=== PATIENT | female | born 1945 | race Caucasian/White ===

== ENCOUNTER → 2016-10-07 | Outpatient (CLI) | payer MEDICARE ==
[2016-10-07 10:32] LABS: Basophils # (A) 0.1 k/uL (0-0.2); Basophils % (A) 1 %; CH 31.8; CHCM 31.5; Eosinophils # (A) 0.3 k/uL (0-0.7); Eosinophils % (A) 5 %; HDW 2.64; HGB 12.3 gm/dL (11.4-16.0); Luc # (Auto) 0.14; Luc % (Auto) 2; Lymphocytes # (A) 1.9 k/uL (1.0-4.8); Lymphocytes % (A) 32 %; MCH 31.3 pg (25.0-35.0); MCHC 30.8 g/dL (31.0-37.0); MCV 101.6 fL (80.0-100.0); Macrocytosis Slight; Mean Platelet Volume 7.4; Monocytes # (A) 0.5 k/uL (0-1.0); Monocytes % (A) 8 %; Neutrophils # (A) 3.1 k/uL (1.3-7.7); Neutrophils % (A) 52 %; RBC 3.93 m/uL (3.80-5.40); RDW 13.4 % (11.5-15.5); WBC (Perox) 5.97
[2016-10-07 10:50] LABS: Appearance,Urine Cloudy (Clear); Bacteria,Urine Many /hpf; Bilirubin,Urine Negative (Negative); Glucose,Urine (UA) Negative (Negative); Ketones,Urine Negative (Negative); Leukocyte Esterase,Urine Large (Negative); Mucus,Urine Occasional /hpf; Nitrite,Urine Positive (Negative); PH, Urine 5.5 (5.0-8.0); Particle Count 16198; Protein,Urine Trace (Negative); RBC,Urine 1 /hpf (0-5); Specific Gravity,Urine 1.011 (1.001-1.035); Squamous Epithelial Cell,Urine 1 /hpf (0-4); UA Billing (MACRO vs. MICRO) MICRO; Urobilinogen,Urine <2.0 mg/dL (<2.0); WBC,Urine 93 /hpf (0-5)
[2016-10-07 11:46] LABS: Calcium 7.9 mg/dL (8.4-10.2); Magnesium 2.1 mg/dL (1.6-2.3); Total Bilirubin 0.4 mg/dL (0.2-1.3); Total Protein 6.5 g/dL (6.3-8.2); Uric Acid 5.8 mg/dL (3.7-7.4)
[2016-10-07 11:56] LABS: % Iron Saturation 27.5 % (20-50)
== END | disposition home or self-care (01) ==
LOC: LABWHC1 09:49
PROVIDERS: ATTEND Internal Medicine Endocrinology, Diabetes & Metabolism
DX: N39.0 Urinary tract infection, site not specified (principal); M10.9 Gout, unspecified; N18.3 Chronic kidney disease, stage 3 (moderate); N25.81 Secondary hyperparathyroidism of renal origin; D64.9 Anemia, unspecified; E03.9 Hypothyroidism, unspecified; E55.9 Vitamin D deficiency, unspecified; E83.51 Hypocalcemia; M81.0 Age-related osteoporosis without current pathological fracture
CPT/HCPCS: 36415; 80053; 81001; 82306; 82728; 83540; 83550; 83735; 83970; 84100; 84439; 84443; 84550; 85025

== ENCOUNTER → 2016-11-15 | Outpatient (CLI) | payer MEDICARE | END | disposition home or self-care (01) | LOC: RADECHMAIN 11:52 | PROVIDERS: ATTEND Internal Medicine | DX: R00.1 Bradycardia, unspecified (principal); R00.0 Tachycardia, unspecified | CPT/HCPCS: 93225; 93226 ==

== ENCOUNTER → 2016-12-09 | Outpatient (CLI) | payer MEDICARE ==
--- NOTE | 2016-12-09 10:24 | CT ---
EXAMINATION TYPE: CT brain wo con DATE OF EXAM: 12/09/2016 COMPARISON: Previous study dated 04/05/2010. HISTORY: Seizure disorder CT DLP: 892.1 mGycm Automated exposure control for dose reduction was used. FINDINGS: There are generalized changes of sulcal prominence and ventriculomegaly, compatible with mild atrophi c change. There is diffuse periventricular white matter lucency, compatible with chronic white matter ischemic change. There is no focal lesion, mass effect or midline shift identified. I do not see olivia dence of intracranial blood. The orbits appear normal. Visualized portions of the paranasal sinuses and mastoids are clear. No depressed skull fracture is s een. IMPRESSION: 1. NO ACUTE INTRACRANIAL ABNORMALITY. 2. MILD ATROPHIC CHANGE. 3. CHRONIC WHITE MATTER ISCHEMIC CHANGE.
== END | disposition home or self-care (01) ==
LOC: RADCTMAIN 07:57
PROVIDERS: ATTEND Internal Medicine
DX: G31.9 Degenerative disease of nervous system, unspecified (principal); I67.82 Cerebral ischemia; R90.82 White matter disease, unspecified
CPT/HCPCS: 70450; 95819

== ENCOUNTER → 2016-12-13 | Outpatient (CLI) | payer MEDICARE ==
[2016-12-13 12:16] LABS: Calcium 8.5 mg/dL (8.4-10.2); Potassium 3.6 mmol/L (3.5-5.1); Total Bilirubin 0.5 mg/dL (0.2-1.3); Total Protein 5.9 g/dL (6.3-8.2)
== END | disposition home or self-care (01) ==
LOC: LABWHC1 11:02
PROVIDERS: ATTEND Internal Medicine Endocrinology, Diabetes & Metabolism
DX: E55.9 Vitamin D deficiency, unspecified (principal); E89.0 Postprocedural hypothyroidism; M81.0 Age-related osteoporosis without current pathological fracture; N18.3 Chronic kidney disease, stage 3 (moderate)
CPT/HCPCS: 36415; 80053; 82306; 84439; 84443

== ENCOUNTER → 2017-01-23 | Outpatient (CLI) | payer MEDICARE ==
[2017-01-23 10:55] LABS: Basophils # (A) 0.1 k/uL (0-0.2); Basophils % (A) 1 %; CH 32.3; CHCM 30.8; Eosinophils # (A) 0.2 k/uL (0-0.7); Eosinophils % (A) 3 %; HCT 38.4 % (34.0-46.0); HDW 3.06; HGB 11.6 gm/dL (11.4-16.0); Hypochromasia Moderate; Luc # (Auto) 0.12; Luc % (Auto) 2; Lymphocytes # (A) 2.2 k/uL (1.0-4.8); Lymphocytes % (A) 32 %; MCH 31.9 pg (25.0-35.0); MCHC 30.2 g/dL (31.0-37.0); MCV 105.8 fL (80.0-100.0); Macrocytosis Moderate; Mean Platelet Volume 7.6; Monocytes # (A) 0.4 k/uL (0-1.0); Monocytes % (A) 6 %; Neutrophils # (A) 3.9 k/uL (1.3-7.7); Neutrophils % (A) 56 %; RBC 3.63 m/uL (3.80-5.40); RDW 15.5 % (11.5-15.5); WBC 6.8 k/uL (3.8-10.6); WBC (Perox) 7.24
[2017-01-23 11:31] LABS: Calcium 7.4 mg/dL (8.4-10.2); Magnesium 1.6 mg/dL (1.6-2.3); Phosphorous 4.6 mg/dL (2.5-4.5); Potassium 4.2 mmol/L (3.5-5.1); Uric Acid 5.1 mg/dL (3.7-7.4)
[2017-01-23 11:40] LABS: % Iron Saturation 27.1 % (20-50)
[2017-01-23 11:42] LABS: Appearance,Urine Clear (Clear); Bacteria,Urine Occasional /hpf; Bilirubin,Urine Negative (Negative); Glucose,Urine (UA) Negative (Negative); Ketones,Urine Negative (Negative); Leukocyte Esterase,Urine Large (Negative); Mucus,Urine Rare /hpf; Nitrite,Urine Negative (Negative); Particle Count 7426; Protein,Urine Negative (Negative); RBC,Urine 1 /hpf (0-5); Specific Gravity,Urine 1.008 (1.001-1.035); UA Billing (MACRO vs. MICRO) MICRO; Urobilinogen,Urine <2.0 mg/dL (<2.0); WBC,Urine 86 /hpf (0-5)
== END | disposition home or self-care (01) ==
LOC: LABWHC1 10:23
PROVIDERS: ATTEND Internal Medicine Nephrology
DX: M10.9 Gout, unspecified (principal); N18.3 Chronic kidney disease, stage 3 (moderate); N39.0 Urinary tract infection, site not specified; N25.81 Secondary hyperparathyroidism of renal origin; D63.1 Anemia in chronic kidney disease
CPT/HCPCS: 36415; 80048; 81001; 82306; 82728; 83540; 83550; 83735; 83970; 84100; 84550; 85025

== ENCOUNTER → 2017-03-09 | Outpatient (CLI) | payer MEDICARE ==
[2017-03-09 11:02] LABS: Calcium 8.9 mg/dL (8.4-10.2); Potassium 4.1 mmol/L (3.5-5.1); Total Bilirubin 0.4 mg/dL (0.2-1.3); Total Protein 6.1 g/dL (6.3-8.2)
== END | disposition home or self-care (01) ==
LOC: LABWHC1 10:09
PROVIDERS: ATTEND Internal Medicine Nephrology
DX: N25.81 Secondary hyperparathyroidism of renal origin (principal); E89.0 Postprocedural hypothyroidism
CPT/HCPCS: 36415; 80053; 82306; 83970; 84439; 84443

== ENCOUNTER → 2017-03-20 | Outpatient (CLI) | payer MEDICARE ==
--- NOTE | 2017-03-21 08:43 | MM ---
Reason for exam: screening (asymptomatic). Last mammogram was performed 4 years and 2 months ago. History: Patient is postmenopausal. Family history of premenopausal breast cancer in mother at age 60. Took estrogen for 1 year beginning at age 48. Physical Findings: A clinical breast exam by your physician is recommended on an annual basis and results should be correlated with mammographic findings. MG 3D Screening Mammo W/Cad Bilateral CC and MLO view(s) were taken. Prior study comparison: January 16, 2013, bilateral digital screening mammo w/CAD. November 21, 2011, bilateral digital screening mammo w/CAD. There are scattered fibroglandular densities. Finding: There are typically benign calcifications in both breasts. No significant changes in finding since January 16, 2013 and November 21, 2011. ASSESSMENT: Benign, BI-RAD 2 RECOMMENDATION: Routine screening mammogram of both breasts in 1 year.
== END ==
LOC: RADMAMWWP 11:08
PROVIDERS: ATTEND Internal Medicine
DX: Z12.31 Encounter for screening mammogram for malignant neoplasm of breast (principal)
CPT/HCPCS: 77063; G0202

== ENCOUNTER → 2017-05-23 | Outpatient (CLI) | payer MEDICARE ==
[2017-05-23 12:06] LABS: Calcium 9.2 mg/dL (8.4-10.2)
== END | disposition home or self-care (01) ==
LOC: LABWHC1 11:25
PROVIDERS: ATTEND Nurse Practitioner Family
DX: N18.3 Chronic kidney disease, stage 3 (moderate) (principal)
CPT/HCPCS: 36415; 80048

== ENCOUNTER → 2017-06-19 | Outpatient (CLI) | payer MEDICARE ==
[2017-06-19 11:42] LABS: Albumin 3.7 g/dL (3.5-5.0); Calcium 9.4 mg/dL (8.4-10.2); Potassium 5.6 mmol/L (3.5-5.1); Total Bilirubin 0.4 mg/dL (0.2-1.3); Total Protein 6.2 g/dL (6.3-8.2)
== END | disposition home or self-care (01) ==
LOC: LABWHC1 10:21
PROVIDERS: ATTEND Internal Medicine Endocrinology, Diabetes & Metabolism
DX: E55.9 Vitamin D deficiency, unspecified (principal); E89.0 Postprocedural hypothyroidism
CPT/HCPCS: 36415; 80053; 82306; 84439; 84443

== ENCOUNTER → 2017-08-25 | Outpatient (CLI) | payer MEDICARE ==
--- NOTE | 2017-08-25 14:48 | US ---
EXAMINATION TYPE: US kidneys/renal and bladder DATE OF EXAM: 08/25/2017 COMPARISON: US dated 05/12/2014 CLINICAL HISTORY: N18.3 Chronic kidney disease stage 3 moderate. EXAM MEASUREMENTS: Right Kidney: 9.2 x 3.6 x 4.3 cm Left Kidney: 9.2 x 4.4 x 4.5 cm Right Kidney: extra renal pelvis Left Kidney: cyst upper pole measures 2.1 x 1.9 x 1.8 cm, two stones with shadowing noted one upper p ole measures 1.3 x 0.6 x 1.3 cm and one lower pole measures 1.3 x 0.6 x 1.4 cm Bladder: wnl Bilateral Jets seen: Yes There is increased cortical echogenicity, cortical thinning bilaterally suggestive of medical renal d isease.. IMPRESSION: Medical renal disease. Simple cyst upper pole left kidney, renal cystic disease. Left-sided nephrolit hiasis.
== END | disposition home or self-care (01) ==
LOC: RADUSWWP 11:43
PROVIDERS: ATTEND Internal Medicine Nephrology
DX: N28.1 Cyst of kidney, acquired (principal); N20.0 Calculus of kidney; N28.89 Other specified disorders of kidney and ureter; N18.3 Chronic kidney disease, stage 3 (moderate)
CPT/HCPCS: 76770

== ENCOUNTER → 2017-09-19 | Outpatient (CLI) | payer MEDICARE ==
[2017-09-19 16:21] LABS: Basophils # (A) 0.1 k/uL (0-0.2); Basophils % (A) 1 %; Eosinophils # (A) 0.1 k/uL (0-0.7); Eosinophils % (A) 1 %; HCT 40.7 % (34.0-46.0); HGB 12.6 gm/dL (11.4-16.0); Hypochromasia Slight; Lymphocytes # (A) 2.1 k/uL (1.0-4.8); Lymphocytes % (A) 31 %; MCH 30.3 pg (25.0-35.0); MCHC 31.1 g/dL (31.0-37.0); MCV 97.7 fL (80.0-100.0); Mean Platelet Volume 7.4; Monocytes # (A) 0.4 k/uL (0-1.0); Monocytes % (A) 6 %; Neutrophils % (A) 60 %; Platelet Count 184 k/uL (150-450); RBC 4.16 m/uL (3.80-5.40); RDW 13.2 % (11.5-15.5); WBC 6.7 k/uL (3.8-10.6)
[2017-09-19 16:22] LABS: Appearance,Urine Cloudy (Clear); Bacteria,Urine Many /hpf; Bilirubin,Urine Negative (Negative); Blood,Urine Negative (Negative); Budding Yeast,Urine Occasional /hpf; Color,Urine Yellow; Glucose,Urine (UA) Negative (Negative); Ketones,Urine Negative (Negative); Leukocyte Esterase,Urine Large (Negative); Mucus,Urine Rare /hpf; Nitrite,Urine Negative (Negative); Protein,Urine Trace (Negative); RBC,Urine 3 /hpf (0-5); Squamous Epithelial Cell,Urine <1 /hpf (0-4); Urobilinogen,Urine <2.0 mg/dL (<2.0); WBC,Urine 97 /hpf (0-5)
[2017-09-19 16:40] LABS: Calcium 9.5 mg/dL (8.4-10.2); Potassium 3.9 mmol/L (3.5-5.1)
[2017-09-19 21:24] LABS: Erythrocyte Sedimentation Rate 10 mm/hr (0-20)
== END | disposition home or self-care (01) ==
LOC: LABWHC1 15:30
PROVIDERS: ATTEND Internal Medicine
DX: E05.00 Thyrotoxicosis with diffuse goiter without thyrotoxic crisis or storm (principal); I89.0 Lymphedema, not elsewhere classified; N39.0 Urinary tract infection, site not specified; R50.9 Fever, unspecified; Z79.899 Other long term (current) drug therapy
CPT/HCPCS: 36415; 80048; 81001; 85025; 85652; 87040; 87077; 87086; 87186

== ENCOUNTER → 2017-11-07 | Outpatient (CLI) | payer MEDICARE ==
[2017-11-07 11:15] LABS: Basophils # (A) 0.1 k/uL (0-0.2); Basophils % (A) 1 %; Eosinophils # (A) 0.1 k/uL (0-0.7); Eosinophils % (A) 2 %; HCT 37.4 % (34.0-46.0); HGB 11.7 gm/dL (11.4-16.0); Lymphocytes # (A) 2.1 k/uL (1.0-4.8); Lymphocytes % (A) 27 %; MCH 30.7 pg (25.0-35.0); MCHC 31.4 g/dL (31.0-37.0); MCV 97.7 fL (80.0-100.0); Mean Platelet Volume 7.2; Monocytes # (A) 0.6 k/uL (0-1.0); Monocytes % (A) 7 %; Neutrophils # (A) 4.9 k/uL (1.3-7.7); Neutrophils % (A) 62 %; Platelet Count 243 k/uL (150-450); RBC 3.83 m/uL (3.80-5.40); RDW 13.9 % (11.5-15.5); WBC 7.8 k/uL (3.8-10.6)
[2017-11-07 11:39] LABS: Calcium 9.6 mg/dL (8.4-10.2); Potassium 3.4 mmol/L (3.5-5.1)
[2017-11-07 11:49] LABS: Appearance,Urine Cloudy (Clear); Bacteria,Urine Moderate /hpf; Bilirubin,Urine Negative (Negative); Blood,Urine Negative (Negative); Color,Urine Light Yellow; Glucose,Urine (UA) Negative (Negative); Ketones,Urine Negative (Negative); Leukocyte Esterase,Urine Large (Negative); Mucus,Urine Rare /hpf; Nitrite,Urine Negative (Negative); PH, Urine 5.5 (5.0-8.0); Protein,Urine Negative (Negative); RBC,Urine 2 /hpf (0-5); Squamous Epithelial Cell,Urine 1 /hpf (0-4); Urobilinogen,Urine <2.0 mg/dL (<2.0); WBC,Urine 137 /hpf (0-5)
[2017-11-07 11:58] LABS: Creatinine,Urine Random 42.6 mg/dL
[2017-11-07 17:04] LABS: Iron Saturation 27.94 (12.00-45.00)
[2017-11-07 17:13] LABS: Vitamin D 25 Hydroxy 45.7 ng/mL (30.0-100.0)
[2017-11-07 18:11] LABS: Parathyroid Hormone Intact 42.2 pg/mL (14.0-72.0)
== END | disposition home or self-care (01) ==
LOC: LABWHC1 10:24
PROVIDERS: ATTEND Nurse Practitioner Family
DX: D64.9 Anemia, unspecified (principal); N39.0 Urinary tract infection, site not specified; N25.81 Secondary hyperparathyroidism of renal origin; N18.3 Chronic kidney disease, stage 3 (moderate); R80.9 Proteinuria, unspecified
CPT/HCPCS: 36415; 80048; 81001; 82306; 82570; 82728; 83540; 83550; 83970; 84156; 85025

== ENCOUNTER → 2017-12-21 | Outpatient (CLI) | payer MEDICARE ==
[2017-12-21 12:24] LABS: Basophils # (A) 0.1 k/uL (0-0.2); Basophils % (A) 1 %; Eosinophils # (A) 0.2 k/uL (0-0.7); Eosinophils % (A) 3 %; HGB 11.5 gm/dL (11.4-16.0); Lymphocytes # (A) 1.7 k/uL (1.0-4.8); Lymphocytes % (A) 31 %; MCH 30.3 pg (25.0-35.0); MCHC 30.9 g/dL (31.0-37.0); Mean Platelet Volume 6.8; Monocytes # (A) 0.3 k/uL (0-1.0); Monocytes % (A) 6 %; Neutrophils # (A) 3.2 k/uL (1.3-7.7); Neutrophils % (A) 57 %; Platelet Count 200 k/uL (150-450); RBC 3.78 m/uL (3.80-5.40); RDW 12.8 % (11.5-15.5); WBC 5.5 k/uL (3.8-10.6)
[2017-12-21 12:50] LABS: Albumin 3.4 g/dL (3.5-5.0); Calcium 8.8 mg/dL (8.4-10.2); Total Bilirubin 0.4 mg/dL (0.2-1.3); Total Protein 5.7 g/dL (6.3-8.2)
[2017-12-21 14:10] LABS: Erythrocyte Sedimentation Rate 19 mm/hr (0-20)
== END | disposition home or self-care (01) ==
LOC: LABWHC1 11:16
PROVIDERS: ATTEND Internal Medicine Endocrinology, Diabetes & Metabolism
DX: I10 Essential (primary) hypertension (principal); M85.80 Other specified disorders of bone density and structure, unspecified site; R53.83 Other fatigue; E89.0 Postprocedural hypothyroidism; E55.9 Vitamin D deficiency, unspecified
CPT/HCPCS: 36415; 80053; 82306; 85025; 85652

== ENCOUNTER → 2018-03-15 | Outpatient (CLI) | payer MEDICARE ==
[2018-03-15 10:18] LABS: Basophils # (A) 0.1 k/uL (0-0.2); Basophils % (A) 1 %; Eosinophils # (A) 0.2 k/uL (0-0.7); Eosinophils % (A) 3 %; HCT 36.7 % (34.0-46.0); Hypochromasia Marked; Lymphocytes # (A) 1.8 k/uL (1.0-4.8); Lymphocytes % (A) 35 %; MCH 30.8 pg (25.0-35.0); MCV 102.5 fL (80.0-100.0); Macrocytosis Slight; Mean Platelet Volume 7.1; Monocytes # (A) 0.3 k/uL (0-1.0); Monocytes % (A) 6 %; Neutrophils # (A) 2.7 k/uL (1.3-7.7); Neutrophils % (A) 52 %; Platelet Count 193 k/uL (150-450); RBC 3.58 m/uL (3.80-5.40); RDW 13.5 % (11.5-15.5); WBC 5.2 k/uL (3.8-10.6)
[2018-03-15 10:25] LABS: Amorphous Sediment,Urine Rare /hpf; Appearance,Urine Cloudy (Clear); Bacteria,Urine Moderate /hpf; Bilirubin,Urine Negative (Negative); Blood,Urine Negative (Negative); Color,Urine Light Yellow; Glucose,Urine (UA) Negative (Negative); Ketones,Urine Negative (Negative); Leukocyte Esterase,Urine Large (Negative); Mucus,Urine Rare /hpf; Nitrite,Urine Negative (Negative); PH, Urine 5.5 (5.0-8.0); Protein,Urine Negative (Negative); RBC,Urine 4 /hpf (0-5); Squamous Epithelial Cell,Urine 1 /hpf (0-4); Urobilinogen,Urine <2.0 mg/dL (<2.0); WBC,Urine 74 /hpf (0-5)
[2018-03-15 10:29] LABS: Calcium 7.7 mg/dL (8.4-10.2); Magnesium 1.7 mg/dL (1.6-2.3); Phosphorus 3.3 mg/dL (2.5-4.5); Potassium 4.7 mmol/L (3.5-5.1); Uric Acid 5.7 mg/dL (3.7-7.4)
[2018-03-15 16:24] LABS: Iron Saturation 35.25 (12.00-45.00)
[2018-03-15 18:55] LABS: Parathyroid Hormone Intact 445.5 pg/mL (14.0-72.0)
== END | disposition home or self-care (01) ==
LOC: LABWHC1 09:28
PROVIDERS: ATTEND Internal Medicine Nephrology
DX: E55.9 Vitamin D deficiency, unspecified (principal); D63.1 Anemia in chronic kidney disease; E21.3 Hyperparathyroidism, unspecified; M10.9 Gout, unspecified; N39.0 Urinary tract infection, site not specified; N18.3 Chronic kidney disease, stage 3 (moderate)
CPT/HCPCS: 36415; 80048; 81001; 82728; 83540; 83550; 83735; 83970; 84100; 84550; 85025

== ENCOUNTER → 2018-06-21 | Outpatient (CLI) | payer MEDICARE ==
[2018-06-21 13:11] LABS: Basophils # (A) 0.1 k/uL (0-0.2); Basophils % (A) 1 %; Eosinophils # (A) 0.2 k/uL (0-0.7); Eosinophils % (A) 3 %; HCT 38.4 % (34.0-46.0); HGB 12.1 gm/dL (11.4-16.0); Hypochromasia Moderate; Lymphocytes # (A) 1.6 k/uL (1.0-4.8); Lymphocytes % (A) 27 %; MCH 33.2 pg (25.0-35.0); MCHC 31.5 g/dL (31.0-37.0); MCV 105.4 fL (80.0-100.0); Macrocytosis Moderate; Mean Platelet Volume 7.3; Monocytes # (A) 0.3 k/uL (0-1.0); Monocytes % (A) 6 %; Neutrophils # (A) 3.6 k/uL (1.3-7.7); Neutrophils % (A) 61 %; Platelet Count 182 k/uL (150-450); RBC 3.64 m/uL (3.80-5.40); RDW 13.3 % (11.5-15.5); WBC 5.9 k/uL (3.8-10.6)
[2018-06-21 13:12] LABS: Appearance,Urine Clear (Clear); Bacteria,Urine Many /hpf; Bilirubin,Urine Negative (Negative); Blood,Urine Negative (Negative); Color,Urine Light Yellow; Glucose,Urine (UA) Negative (Negative); Ketones,Urine Negative (Negative); Leukocyte Esterase,Urine Large (Negative); Mucus,Urine Rare /hpf; Nitrite,Urine Negative (Negative); Protein,Urine Negative (Negative); Specific Gravity,Urine 1.006 (1.001-1.035); Squamous Epithelial Cell,Urine <1 /hpf (0-4); Urobilinogen,Urine <2.0 mg/dL (<2.0); WBC,Urine 29 /hpf (0-5)
[2018-06-21 19:28] LABS: Parathyroid Hormone Intact 84.1 pg/mL (14.0-72.0)
[2018-06-21 20:23] LABS: Iron Saturation 21.51 (12.00-45.00)
[2018-06-21 20:31] LABS: Vitamin D 25 Hydroxy 25.5 ng/mL (30.0-100.0)
[2018-06-21 20:44] LABS: Albumin 3.8 g/dL (3.80-4.90); Albumin/Globulin Ratio 2.24 (1.20-2.10); Calcium 8.2 mg/dL (8.7-10.3); Globulin 1.7 g/dL (1.6-3.3); Magnesium 1.6 mg/dL (1.5-2.4); Total Bilirubin 0.4 mg/dL (0.3-1.2); Total Protein 5.5 g/dL (6.2-8.2); Uric Acid 5.5 mg/dL (2.9-7.7)
== END | disposition home or self-care (01) ==
LOC: LABWHC1 12:19
PROVIDERS: ATTEND Nurse Practitioner Family
DX: N18.3 Chronic kidney disease, stage 3 (moderate) (principal); E55.9 Vitamin D deficiency, unspecified; N25.81 Secondary hyperparathyroidism of renal origin; E83.39 Other disorders of phosphorus metabolism; M10.9 Gout, unspecified; R80.9 Proteinuria, unspecified
CPT/HCPCS: 36415; 80053; 81001; 82306; 82728; 83540; 83550; 83735; 83970; 84100; 84550; 85025

== ENCOUNTER → 2018-07-12 | Outpatient (CLI) | payer MEDICARE ==
[2018-07-12 12:55] LABS: Ionized Calcium 4.3 mg/dL (4.5-5.3)
[2018-07-12 19:12] LABS: Vitamin D 25 Hydroxy 36.6 ng/mL (30.0-100.0)
[2018-07-12 19:25] LABS: T4, Free (Free Thyroxine) 1.4 ng/dL (0.80-1.80)
[2018-07-12 19:32] LABS: Anion Gap 8.5 mmol/L (4.00-12.00); Calcium 7.5 mg/dL (8.7-10.3); Carbon Dioxide 21.5 mmol/L (21.6-31.8); Magnesium 1.9 mg/dL (1.5-2.4)
[2018-07-12 20:19] LABS: Parathyroid Hormone Intact 494.7 pg/mL (14.0-72.0)
[2018-07-12 20:24] LABS: C-Peptide 1.68 ng/mL (0.81-3.85)
== END | disposition home or self-care (01) ==
LOC: LABWHC1 11:03
PROVIDERS: ATTEND Internal Medicine Endocrinology, Diabetes & Metabolism
DX: E55.9 Vitamin D deficiency, unspecified (principal); M81.0 Age-related osteoporosis without current pathological fracture; E89.0 Postprocedural hypothyroidism
CPT/HCPCS: 36415; 80048; 82306; 82330; 83735; 83970; 84075; 84439; 84443; 84681

== ENCOUNTER 2018-08-23 14:07 | Inpatient (IN) | payer MEDICARE ==
--- NOTE | 2018-08-23 14:45 | ED ---
General Adult HPI - General Chief complaint: Weakness Stated complaint: Weakness Time Seen by Provider: 08/23/18 14:26 Source: patient, family, RN notes reviewed Mode of arrival: wheelchair Limitations: no limitations - History of Present Illness Initial comments: Patient is a pleasant 73-year-old female presenting to emergency Department for not feeling well. Symptoms have been present for several days, somewhat for a couple of weeks. Patient has had intermittent fevers. Patient has a history of similar symptoms previous associated with urinary tract infection. Patient did see her doctor and was started on Levaquin. Symptoms persist. Patient does have some mild exertional dyspnea. Patient has felt very fatigued. Patient did have a syncopal episode a couple of days ago while using the restroom. Patient does have a history of syncopal episodes previously a proximally 6 times. - Related Data Home Medications Medication Instructions Recorded Confirmed Albuterol Nebulized [Ventolin 2.5 mg INHALATION RT-TID 08/23/18 08/23/18 Nebulized] Albuterol Sulfate [Proair Hfa] 2 puff INHALATION RT-QID PRN 08/23/18 08/23/18 Bumetanide [Bumex] 1 mg PO DAILY 08/23/18 08/23/18 Calcitriol 1 mcg PO TID 08/23/18 08/23/18 Cranberry Clinical Strength 500mg 500 mg PO DAILY 08/23/18 08/23/18 Docusate [Colace] 200 mg PO BID 08/23/18 08/23/18 Ergocalciferol (Vitamin D2) 50,000 unit PO MOWEFR 08/23/18 08/23/18 [Vitamin D2] FLUoxetine HCL [PROzac] 20 mg PO BID@1400,2000 08/23/18 08/23/18 Fluticasone/Salmeterol [Advair 1 puff INHALATION RT-BID 08/23/18 08/23/18 250-50 Diskus] Levofloxacin [Levaquin] 500 mg PO DAILY 08/23/18 08/23/18 Levothyroxine Sodium [Synthroid] 112 mcg PO MOTUWETHFRSA 08/23/18 08/23/18 Levothyroxine Sodium [Synthroid] 224 mcg PO MURO 08/23/18 08/23/18 Loratadine [Alavert] 10 mg PO DAILY 08/23/18 08/23/18 Midodrine [ProAmatine] 5 mg PO DAILY 08/23/18 08/23/18 Mometasone Inhalr 220 Mcg/Puff 2 puff INHALATION RT-HS 08/23/18 08/23/18 [Asmanex] Montelukast [Singulair] 10 mg PO DAILY 08/23/18 08/23/18 Omeprazole 40 mg PO DAILY 08/23/18 08/23/18 Potassium Chloride ER [K-Dur 20] 40 meq PO TID 08/23/18 08/23/18 Ranitidine HCl 300 mg PO HS 08/23/18 08/23/18 Rising Mag64 W/Calcium 1 tab PO DAILY 08/23/18 08/23/18 Sodium Bicarbonate Tab 650 mg PO TID 08/23/18 08/23/18 methylPREDNISolone Dose Pack See Taper PO DIRECTED 08/23/18 08/23/18 [Medrol Dose Pack] metroNIDAZOLE [Flagyl] 250 mg PO DAILY 08/23/18 08/23/18 traMADol HCL [Ultram] 50 mg PO TID PRN 08/23/18 08/23/18 Allergies Allergy/AdvReac Type Severity Reaction Status Date / Time adhesive tape Allergy Rash/Hives Verified 08/23/18 15:51 Sulfa (Sulfonamide Allergy Itching Verified 08/23/18 15:51 Antibiotics) tetracycline Allergy Nausea & Verified 08/23/18 15:51 Vomiting codeine AdvReac Nausea Verified 08/23/18 15:51 Review of Systems ROS Statement: Those systems with pertinent positive or pertinent negative responses have been documented in the HPI. ROS Other: All systems not noted in ROS Statement are negative. Constitutional: Reports: fever, chills Eyes: Denies: eye pain ENT: Denies: ear pain Respiratory: Reports: cough, dyspnea Cardiovascular: Denies: chest pain Endocrine: Reports: fatigue Gastrointestinal: Denies: abdominal pain Genitourinary: Reports: dysuria Musculoskeletal: Denies: back pain Skin: Denies: rash Neurological: Denies: headache Past Medical History Past Medical History: COPD, Renal Disease, Thyroid Disorder Additional Past Medical History / Comment(s): hx lymphedema hx pulmonary fibrosis hx graves hx rt foot torn ligaments hx kidney stones hx osteoporosis History of Any Multi-Drug Resistant Organisms: None Reported Past Surgical History: Bariatric Surgery, Cholecystectomy, Heart Catheterization, Hernia Repair, Hysterectomy, Tonsillectomy, Tubal Ligation Additional Past Surgical History / Comment(s): hx bariatric surgery hx lung biopsy hx radioactive iodine, hx rectal and bladder suspensions Past Anesthesia/Blood Transfusion Reactions: No Reported Reaction, Previous Problems w/ Anesthesia, Postoperative Nausea & Vomiting (PONV) Additional Past Anesthesia/Blood Transfusion Reaction / Comment(s): decrease bp with anesthesia Past Psychological History: No Psychological Hx Reported Smoking Status: Never smoker Past Alcohol Use History: None Reported Past Drug Use History: None Reported - Past Family History Father Family Medical History: Coronary Artery Disease (CAD) Additional Family Medical History / Comment(s): hx alzheimers, lung disease, malaria Mother Family Medical History: Cancer Additional Family Medical History / Comment(s): arthritis/osteoporosis Sister(s) Additional Family Medical History / Comment(s): myasthenia gravis/ iddm/ crohns Daughter(s) Additional Family Medical History / Comment(s): lymphedema in legs General Exam Limitations: no limitations General appearance: alert, in no apparent distress Head exam: Present: atraumatic Eye exam: Present: normal appearance, PERRL, EOMI. Absent: nystagmus ENT exam: Present: normal oropharynx Neck exam: Present: normal inspection Respiratory exam: Present: normal lung sounds bilaterally Cardiovascular Exam: Present: regular rate, normal rhythm GI/Abdominal exam: Present: soft. Absent: tenderness Extremities exam: Present: other (patient does have some mild lymphedema which is chronic per patient and family). Absent: calf tenderness Neurological exam: Present: alert, oriented X3, CN II-XII intact. Absent: motor sensory deficit Psychiatric exam: Present: normal affect, normal mood Skin exam: Present: normal color. Absent: rash Course Vital Signs 08/23/18 08/23/18 14:22 15:18 Temperature 97.9 F Pulse Rate 91 67 Respiratory 16 16 Rate Blood Pressure 100/72 127/82 O2 Sat by Pulse 100 97 Oximetry EKG Findings - EKG Comments: EKG Findings:: No sinus rhythm at 75. W[place] 184. QRS 68. QT 362. QTC 404. Normal axis. Normal QRS. No acute ST change. Medical Decision Making - Medical Decision Making Patient reevaluated and resting comfortably in bed. Patient and family updated on results and plan. Case was discussed in detail with Dr. Sellers, covering for Dr. Ambrocio, who will admit. She will see the patient and decide if MRI is needed. - Lab Data Result diagrams: 08/23/18 14:55 08/23/18 14:55 Lab Results 08/23/18 08/23/18 08/23/18 Range/Units 14:55 14:55 14:55 WBC 6.0 (3.8-10.6) k/uL RBC 4.08 (3.80-5.40) m/uL Hgb 12.5 (11.4-16.0) gm/dL Hct 40.7 (34.0-46.0) % MCV 99.7 (80.0-100.0) fL MCH 30.6 (25.0-35.0) pg MCHC 30.7 L (31.0-37.0) g/dL RDW 12.7 (11.5-15.5) % Plt Count 180 (150-450) k/uL Neutrophils % 63 % Lymphocytes % 26 % Monocytes % 8 % Eosinophils % 2 % Basophils % 1 % Neutrophils # 3.8 (1.3-7.7) k/uL Lymphocytes # 1.6 (1.0-4.8) k/uL Monocytes # 0.5 (0-1.0) k/uL Eosinophils # 0.1 (0-0.7) k/uL Basophils # 0.0 (0-0.2) k/uL PT (9.0-12.0) sec INR (<1.2) APTT (22.0-30.0) sec Sodium 137 (137-145) mmol/L Potassium 4.7 (3.5-5.1) mmol/L Chloride 104 (98-107) mmol/L Carbon Dioxide 21 L (22-30) mmol/L Anion Gap 12 mmol/L BUN 63 H (7-17) mg/dL Creatinine 2.28 H (0.52-1.04) mg/dL Est GFR (CKD-EPI)AfAm 24 (>60 ml/min/1.73 sqM) Est GFR (CKD-EPI)NonAf 21 (>60 ml/min/1.73 sqM) Glucose 105 H (74-99) mg/dL Plasma Lactic Acid Klever 0.8 (0.7-2.0) mmol/L Calcium 10.6 H (8.4-10.2) mg/dL Magnesium 2.3 (1.6-2.3) mg/dL Total Bilirubin 0.4 (0.2-1.3) mg/dL AST 30 (14-36) U/L ALT 34 (9-52) U/L Alkaline Phosphatase 41 (38-126) U/L Troponin I (0.000-0.034) ng/mL NT-Pro-B Natriuret Pep pg/mL Total Protein 6.2 L (6.3-8.2) g/dL Albumin 3.5 (3.5-5.0) g/dL TSH 3.060 (0.465-4.680) mIU/L Free T4 1.42 (0.78-2.19) ng/dL Free T3 pg/mL 2.1 L (2.8-5.3) pg/ml Urine Color Urine Appearance (Clear) Urine pH (5.0-8.0) Ur Specific [place] (1.001-1.035) Urine Protein (Negative) Urine Glucose (UA) (Negative) Urine Ketones (Negative) Urine Blood (Negative) Urine Nitrite (Negative) Urine Bilirubin (Negative) Urine Urobilinogen (<2.0) mg/dL Ur Leukocyte Esterase (Negative) Urine RBC (0-5) /hpf Urine WBC (0-5) /hpf Ur Squamous Epith Cells (0-4) /hpf Urine Bacteria (None) /hpf Urine Mucus (None) /hpf Influenza Type A RNA (Not Detectd) Influenza Type B (PCR) (Not Detectd) 08/23/18 08/23/18 08/23/18 Range/Units 14:55 14:55 14:55 WBC (3.8-10.6) k/uL RBC (3.80-5.40) m/uL Hgb (11.4-16.0) gm/dL Hct (34.0-46.0) % MCV (80.0-100.0) fL MCH (25.0-35.0) pg MCHC (31.0-37.0) g/dL RDW (11.5-15.5) % Plt Count (150-450) k/uL Neutrophils % % Lymphocytes % % Monocytes % % Eosinophils % % Basophils % % Neutrophils # (1.3-7.7) k/uL Lymphocytes # (1.0-4.8) k/uL Monocytes # (0-1.0) k/uL Eosinophils # (0-0.7) k/uL Basophils # (0-0.2) k/uL PT 9.8 (9.0-12.0) sec INR 0.9 (<1.2) APTT 21.1 L (22.0-30.0) sec Sodium (137-145) mmol/L Potassium (3.5-5.1) mmol/L Chloride (98-107) mmol/L Carbon Dioxide (22-30) mmol/L Anion Gap mmol/L BUN (7-17) mg/dL Creatinine (0.52-1.04) mg/dL Est GFR (CKD-EPI)AfAm (>60 ml/min/1.73 sqM) Est GFR (CKD-EPI)NonAf (>60 ml/min/1.73 sqM) Glucose (74-99) mg/dL Plasma Lactic Acid Klever (0.7-2.0) mmol/L Calcium (8.4-10.2) mg/dL Magnesium (1.6-2.3) mg/dL Total Bilirubin (0.2-1.3) mg/dL AST (14-36) U/L ALT (9-52) U/L Alkaline Phosphatase (38-126) U/L Troponin I <0.012 (0.000-0.034) ng/mL NT-Pro-B Natriuret Pep 332 pg/mL Total Protein (6.3-8.2) g/dL Albumin (3.5-5.0) g/dL TSH (0.465-4.680) mIU/L Free T4 (0.78-2.19) ng/dL Free T3 pg/mL (2.8-5.3) pg/ml Urine Color Urine Appearance (Clear) Urine pH (5.0-8.0) Ur Specific [place] (1.001-1.035) Urine Protein (Negative) Urine Glucose (UA) (Negative) Urine Ketones (Negative) Urine Blood (Negative) Urine Nitrite (Negative) Urine Bilirubin (Negative) Urine Urobilinogen (<2.0) mg/dL Ur Leukocyte Esterase (Negative) Urine RBC (0-5) /hpf Urine WBC (0-5) /hpf Ur Squamous Epith Cells (0-4) /hpf Urine Bacteria (None) /hpf Urine Mucus (None) /hpf Influenza Type A RNA (Not Detectd) Influenza Type B (PCR) (Not Detectd) 08/23/18 08/23/18 Range/Units 14:55 15:09 WBC (3.8-10.6) k/uL RBC (3.80-5.40) m/uL Hgb (11.4-16.0) gm/dL Hct (34.0-46.0) % MCV (80.0-100.0) fL MCH (25.0-35.0) pg MCHC (31.0-37.0) g/dL RDW (11.5-15.5) % Plt Count (150-450) k/uL Neutrophils % % Lymphocytes % % Monocytes % % Eosinophils % % Basophils % % Neutrophils # (1.3-7.7) k/uL Lymphocytes # (1.0-4.8) k/uL Monocytes # (0-1.0) k/uL Eosinophils # (0-0.7) k/uL Basophils # (0-0.2) k/uL PT (9.0-12.0) sec INR (<1.2) APTT (22.0-30.0) sec Sodium (137-145) mmol/L Potassium (3.5-5.1) mmol/L Chloride (98-107) mmol/L Carbon Dioxide (22-30) mmol/L Anion Gap mmol/L BUN (7-17) mg/dL Creatinine (0.52-1.04) mg/dL Est GFR (CKD-EPI)AfAm (>60 ml/min/1.73 sqM) Est GFR (CKD-EPI)NonAf (>60 ml/min/1.73 sqM) Glucose (74-99) mg/dL Plasma Lactic Acid Klever (0.7-2.0) mmol/L Calcium (8.4-10.2) mg/dL Magnesium (1.6-2.3) mg/dL Total Bilirubin (0.2-1.3) mg/dL AST (14-36) U/L ALT (9-52) U/L Alkaline Phosphatase (38-126) U/L Troponin I (0.000-0.034) ng/mL NT-Pro-B Natriuret Pep pg/mL Total Protein (6.3-8.2) g/dL Albumin (3.5-5.0) g/dL TSH (0.465-4.680) mIU/L Free T4 (0.78-2.19) ng/dL Free T3 pg/mL (2.8-5.3) pg/ml Urine Color Light Yellow Urine Appearance Cloudy H (Clear) Urine pH 5.0 (5.0-8.0) Ur Specific [place] 1.011 (1.001-1.035) Urine Protein Negative (Negative) Urine Glucose (UA) Negative (Negative) Urine Ketones Negative (Negative) Urine Blood Negative (Negative) Urine Nitrite Negative (Negative) Urine Bilirubin Negative (Negative) Urine Urobilinogen <2.0 (<2.0) mg/dL Ur Leukocyte Esterase Large H (Negative) Urine RBC 1 (0-5) /hpf Urine WBC 38 H (0-5) /hpf Ur Squamous Epith Cells 1 (0-4) /hpf Urine Bacteria Occasional H (None) /hpf Urine Mucus Rare H (None) /hpf Influenza Type A RNA Not Detected (Not Detectd) Influenza Type B (PCR) Not Detected (Not Detectd) - Radiology Data Radiology results: report reviewed (Computed tomography scan of the brain shows no acute hemorrhage or shift. Left frontal subcortical white matter change new from 2017 likely on the basis of chronic micro-angiopathy although subacute injury is possible.), image reviewed (Chest x-ray shows no acute process) Disposition Clinical Impression: General weakness, UTI (urinary tract infection), Renal insufficiency Disposition: ADMITTED IP TO THIS HOSP Is patient prescribed a controlled substance at d/c from ED?: No Referrals: Terrence Kwan MD [Primary Care Provider] - 1-2 days Decision Time: 16:50
[2018-08-23 15:31] LABS: Appearance,Urine Cloudy (Clear); Bacteria,Urine Occasional /hpf; Bilirubin,Urine Negative (Negative); Blood,Urine Negative (Negative); Color,Urine Light Yellow; Glucose,Urine (UA) Negative (Negative); Ketones,Urine Negative (Negative); Leukocyte Esterase,Urine Large (Negative); Mucus,Urine Rare /hpf; Nitrite,Urine Negative (Negative); Protein,Urine Negative (Negative); RBC,Urine 1 /hpf (0-5); Specific Gravity,Urine 1.011 (1.001-1.035); Squamous Epithelial Cell,Urine 1 /hpf (0-4); Urobilinogen,Urine <2.0 mg/dL (<2.0); WBC,Urine 38 /hpf (0-5)
[2018-08-23 15:38] LABS: Basophils % (A) 1 %; Eosinophils # (A) 0.1 k/uL (0-0.7); Eosinophils % (A) 2 %; HCT 40.7 % (34.0-46.0); HGB 12.5 gm/dL (11.4-16.0); Lymphocytes # (A) 1.6 k/uL (1.0-4.8); Lymphocytes % (A) 26 %; MCH 30.6 pg (25.0-35.0); MCHC 30.7 g/dL (31.0-37.0); MCV 99.7 fL (80.0-100.0); Mean Platelet Volume 7.2; Monocytes # (A) 0.5 k/uL (0-1.0); Monocytes % (A) 8 %; Neutrophils # (A) 3.8 k/uL (1.3-7.7); Neutrophils % (A) 63 %; Platelet Count 180 k/uL (150-450); RBC 4.08 m/uL (3.80-5.40); RDW 12.7 % (11.5-15.5)
[2018-08-23 15:42] LABS: Albumin 3.5 g/dL (3.5-5.0); Calcium 10.6 mg/dL (8.4-10.2); Magnesium 2.3 mg/dL (1.6-2.3); Potassium 4.7 mmol/L (3.5-5.1); Total Bilirubin 0.4 mg/dL (0.2-1.3); Total Protein 6.2 g/dL (6.3-8.2)
--- NOTE | 2018-08-23 15:54 | XR ---
EXAMINATION TYPE: XR chest 2V DATE OF EXAM: 08/23/2018 COMPARISON: None HISTORY: 73-year-old female with weakness TECHNIQUE: AP and lateral views FINDINGS: Heart normal size. Mild elongation thoracic aorta. Some strandy atelectasis lower lungs. No consolida tion or pleural effusion. Surgical clips in the upper abdomen. IMPRESSION: Some strandy areas of atelectasis. No acute process seen.
[2018-08-23 15:58] LABS: INR 0.9 (<1.2); Prothrombin Time 9.8 sec (9.0-12.0); T4, Free (Free Thyroxine) 1.42 ng/dL (0.78-2.19)
--- NOTE | 2018-08-23 15:58 | CT ---
EXAMINATION TYPE: CT brain wo con DATE OF EXAM: 08/23/2018 COMPARISON: 12/09/2016 HISTORY: Weakness and unsteady gait for 2-[address] DLP: 1099.4 mGycm Automated exposure control for dose reduction was used. TECHNIQUE: CT scan of the head is performed without contrast. FINDINGS: There is no acute intracranial hemorrhage or midline shift identified. There is diffuse v entricular and sulcal prominence consistent with diffuse age-related cerebral atrophy. Few foci of h ypoattenuation are seen within the subcortical left frontal region. The first on image 29 is new from the prior 2017 and the second on image 32 is unchanged from the prior 2017. There is low-attenuation in the parietal periventricular white matter consistent with chronic small vessel ischemic change. The globes are intact and the visualized sinuses are clear. IMPRESSION: 1. No acute intracranial hemorrhage or midline shift. 2. New focus of left frontal subcortical white matter change in comparison to the prior of 2016 is li yvonne on the basis of chronic microangiopathy although subacute lacunar injury is possible considering this patient's weakness for 2 to 3 weeks. MRI could further evaluate if there is clinical concern. 3. Mild periventricular white matter change in the parietal lobes is likely on the basis of chronic m icroangiopathy. 4. Diffuse age-related cerebral atrophy.
[2018-08-23 16:04] LABS: Partial Thromboplastin Time 21.1 sec (22.0-30.0)
[2018-08-23] MEDS ORDERED: cefTRIAXone IN SWFI 1,000 MG/10 ML SYRINGE IVP STA (16:50)
[2018-08-23] MEDS ORDERED: ACETAMINOPHEN TAB 325 MG TAB PO PRN (16:52)
[2018-08-23] MEDS ORDERED: NALOXONE 0.4 MG/ML 1 ML VIAL IV PRN (16:52)
[2018-08-23] MEDS: SODIUM CHLORIDE 0.9% 1,000 ML IV SCH (17:16)
[2018-08-23] MEDS ORDERED: CALCIUM CARBONATE 500 MG CHEWABLE PO PRN (18:19)
[2018-08-23] MEDS ORDERED: DOCUSATE 100 MG CAP PO PRN (18:19)
[2018-08-23] MEDS ORDERED: ONDANSETRON 4 MG/2 ML VIAL IVP PRN (18:19)
[2018-08-23] MEDS ORDERED: MELATONIN 3 MG TABLET PO PRN (18:19)
[2018-08-23] MEDS ORDERED: ALBUTEROL NEBULIZED 2.5 MG/3 ML INHALATION PRN (18:26)
--- NOTE | 2018-08-23 18:29 | P.HPIM ---
History of Present Illness H&P Date: 08/23/18 Chief Complaint: weakness Patient is a 73-year-old female with a past medical history of chronic kidney disease stage IV with chronically low calcium and vitamin D, COPD on chronic home inhalers with chronic nocturnal home O2 use at 2 L, severe lymphedema, and hypothyroidism after radioactive iodine treatment for Graves' disease who presented to the ER at direction of her physician. In the ED she underwent an extensive evaluation. Laboratory analysis was consistent with partially treated urinary tract infection. Blood work revealed an elevated BUN of 63 and creatinine of 2.28. Head CT showed new focus of left front lobe white matter changes. Chest x-ray showed strandy atelectasis. EKG did not show any definitive changes. She was given a dose of Rocephin and IV fluids and ranges were made for admission. Patient seen and examined at bedside. She states she's been significantly ill for the last 3-4 weeks. She started noticing some increasing shortness of breath, early fatigue, and overall decline about 3 weeks ago. She states she's been troubling with the urinary tract infection since then. She's had at least 2 courses of ciprofloxacin and is currently on Levaquin therapy. 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 She has had multiple episodes of decreased responsiveness. These happen when she gets up in the middle the night and tries to walk to the bathroom. She starts feeling weak and wobbly. She then sits down and loses consciousness. Sometimes her eyes stay open and she has blinking. Per her sometimes she loses postural tone and other times she doesn't. No shaking, no tongue biting, no loss of bowel, no loss of bladder control. She is immediately awake and alert but extremely fatigued after these episodes. She states she wakes up diaphoretic during these episodes. She has not been having any chest pain or palpitations. Her shortness of breath has not been responsive to her inhaler use. She has not had any symptoms of UTI such as burning or dysuria. She has had some decreased urination. She also complains of forgetfulness and difficulty with word finding over the last 4 weeks area she states she has lost 20 pounds in approximately one week and has had decreased appetite. She had an episode of chest pain approximately 3 weeks ago, she saw Dr. [place], and felt that this was likely secondary to pleurisy and she received a steroid Dosepak. Follows with Dr. Wheeler for nephrology and states that her kidney function is typically around 28-30. She has refused dialysis in the past. She follows with Dr. العراقي for endocrinology as she has multiple difficulties after gastric bypass. She requires high-dose vitamin D, calcit riol, and Synthroid. She also follows with Dr. Roger for her lung function. She's been taking all medications as prescribed. Review of Systems Pertinent positives and negatives as discussed in HPI, a complete review of systems was performed and all other systems are negative. Past Medical History Past Medical History: COPD, Renal Disease, Thyroid Disorder Additional Past Medical History / Comment(s): hx lymphedema hx pulmonary fibrosis hx graves hx rt foot torn ligaments hx kidney stones hx osteoporosis, prostatic hypotension, chronic respiratory failure on 2 L nasal cannula at night, vitamine D deficiency, hypocalcemia History of Any Multi-Drug Resistant Organisms: None Reported Past Surgical History: Bariatric Surgery, Cholecystectomy, Heart Catheterization, Hernia Repair, Hysterectomy, Tonsillectomy, Tubal Ligation Additional Past Surgical History / Comment(s): hx bariatric surgery hx lung biopsy hx radioactive iodine, hx rectal and bladder suspensions Past Anesthesia/Blood Transfusion Reactions: No Reported Reaction, Previous Problems w/ Anesthesia, Postoperative Nausea & Vomiting (PONV) Additional Past Anesthesia/Blood Transfusion Reaction / Comment(s): decrease bp with anesthesia Past Psychological History: No Psychological Hx Reported Smoking Status: Never smoker Past Alcohol Use History: None Reported Past Drug Use History: None Reported Additional History: Lives with her , no assistive devices - Past Family History Father Family Medical History: Coronary Artery Disease (CAD) Additional Family Medical History / Comment(s): hx alzheimers, lung disease, malaria Mother Family Medical History: Cancer Additional Family Medical History / Comment(s): arthritis/osteoporosis Sister(s) Additional Family Medical History / Comment(s): myasthenia gravis/ iddm/ crohns Daughter(s) Additional Family Medical History / Comment(s): lymphedema in legs Medications and Allergies Home Medications Medication Instructions Recorded Confirmed Type Albuterol Nebulized [Ventolin 2.5 mg INHALATION RT-TID 08/23/18 08/23/18 History Nebulized] Albuterol Sulfate [Proair Hfa] 2 puff INHALATION RT-QID PRN 08/23/18 08/23/18 History Bumetanide [Bumex] 1 mg PO DAILY 08/23/18 08/23/18 History Calcitriol 1 mcg PO TID 08/23/18 08/23/18 History Cranberry Clinical Strength 500mg 500 mg PO DAILY 08/23/18 08/23/18 History Docusate [Colace] 200 mg PO BID 08/23/18 08/23/18 History Ergocalciferol (Vitamin D2) 50,000 unit PO MOWEFR 08/23/18 08/23/18 History [Vitamin D2] FLUoxetine HCL [PROzac] 20 mg PO BID@1400,2000 08/23/18 08/23/18 History Fluticasone/Salmeterol [Advair 1 puff INHALATION RT-BID 08/23/18 08/23/18 History 250-50 Diskus] Levofloxacin [Levaquin] 500 mg PO DAILY 08/23/18 08/23/18 History Levothyroxine Sodium [Synthroid] 112 mcg PO MOTUWETHFRSA 08/23/18 08/23/18 History Levothyroxine Sodium [Synthroid] 224 mcg PO MURO 08/23/18 08/23/18 History Loratadine [Alavert] 10 mg PO DAILY 08/23/18 08/23/18 History Midodrine [ProAmatine] 5 mg PO DAILY 08/23/18 08/23/18 History Mometasone Inhalr 220 Mcg/Puff 2 puff INHALATION RT-HS 08/23/18 08/23/18 History [Asmanex] Montelukast [Singulair] 10 mg PO DAILY 08/23/18 08/23/18 History Omeprazole 40 mg PO DAILY 08/23/18 08/23/18 History Potassium Chloride ER [K-Dur 20] 40 meq PO TID 08/23/18 08/23/18 History Ranitidine HCl 300 mg PO HS 08/23/18 08/23/18 History Rising Mag64 W/Calcium 1 tab PO DAILY 08/23/18 08/23/18 History Sodium Bicarbonate Tab 650 mg PO TID 08/23/18 08/23/18 History methylPREDNISolone Dose Pack See Taper PO DIRECTED 08/23/18 08/23/18 History [Medrol Dose Pack] metroNIDAZOLE [Flagyl] 250 mg PO DAILY 08/23/18 08/23/18 History traMADol HCL [Ultram] 50 mg PO TID PRN 08/23/18 08/23/18 History Allergies Allergy/AdvReac Type Severity Reaction Status Date / Time adhesive tape Allergy Rash/Hives Verified 08/23/18 15:51 Sulfa (Sulfonamide Allergy Itching Verified 08/23/18 15:51 Antibiotics) tetracycline Allergy Nausea & Verified 08/23/18 15:51 Vomiting codeine AdvReac Nausea Verified 08/23/18 15:51 Physical Exam Osteopathic Statement: *. No significant issues noted on an osteopathic structural exam other than those noted in the History and Physical/Consult. Vitals: Vital Signs Temp Pulse Resp BP Pulse Ox 08/23/18 17:04 74 16 113/75 98 08/23/18 15:18 67 16 127/82 97 08/23/18 14:22 97.9 F 91 16 100/72 100 Intake and Output 08/23/18 08/23/18 08/23/18 06:59 14:59 22:59 Other: Weight 56.699 kg General: Ill-appearing, no distress, appears at stated age, normal weight Derm: no unusual rashes/lesions multiple ecchymosis bilateral lower extremities, warm, dry Head: atraumatic, normocephalic, symmetric Eyes: EOMI, no lid lag, anicteric sclera, pupils equal round reactive to light ENT: Nose and ears atraumatic, no thrush, no pharyngeal erythema Neck: No thyromegaly, no cervical lymphadenopathy, trachea midline, supple Mouth: no lip lesion, mucus membranes moist Cardiovascular: S1S2 reg, no murmur, positive posterior tibial pulse bilateral, no edema, capillary refill less than 2 seconds Lungs: CTA bilateral, no rhonchi, no rales , no accessory muscle use Abdominal: soft, nontender to palpation, no guarding, no appreciable organomegaly, normal bowel sounds Ext: no gross muscle atrophy, muscle strength 4 out of 5 in all 4 extremities grossly, no contractures, Neuro: CN II-XI grossly intact, light touch intact all 4 extremities, finger to nose within normal limits, Psych: Alert, oriented, appropriate affect Results CBC & Chem 7: 08/23/18 14:55 08/23/18 14:55 Labs: Abnormal Lab Results - Last 24 Hours (Table) 08/23/18 08/23/18 08/23/18 Range/Units 14:55 14:55 14:55 MCHC 30.7 L (31.0-37.0) g/dL APTT 21.1 L (22.0-30.0) sec Carbon Dioxide 21 L (22-30) mmol/L BUN 63 H (7-17) mg/dL Creatinine 2.28 H (0.52-1.04) mg/dL Glucose 105 H (74-99) mg/dL Calcium 10.6 H (8.4-10.2) mg/dL Total Protein 6.2 L (6.3-8.2) g/dL Free T3 pg/mL 2.1 L (2.8-5.3) pg/ml Urine Appearance (Clear) Ur Leukocyte Esterase (Negative) Urine WBC (0-5) /hpf Urine Bacteria (None) /hpf Urine Mucus (None) /hpf 08/23/18 Range/Units 14:55 MCHC (31.0-37.0) g/dL APTT (22.0-30.0) sec Carbon Dioxide (22-30) mmol/L BUN (7-17) mg/dL Creatinine (0.52-1.04) mg/dL Glucose (74-99) mg/dL Calcium (8.4-10.2) mg/dL Total Protein (6.3-8.2) g/dL Free T3 pg/mL (2.8-5.3) pg/ml Urine Appearance Cloudy H (Clear) Ur Leukocyte Esterase Large H (Negative) Urine WBC 38 H (0-5) /hpf Urine Bacteria Occasional H (None) /hpf Urine Mucus Rare H (None) /hpf Comments: EKG is reviewed by myself reveals normal sinus rhythm at a rate of 75, IL 184, QRS 86, QTC 404, no ST-T wave changes, normal axis Chest x-ray: report reviewed, image reviewed CT scan - chest: report reviewed Thrombosis Risk Factor Assmnt - DVT/VTE Prophylaxis DVT/VTE Prophylaxis: Pharmacologic Prophylaxis ordered Assessment and Plan Assessment: Unresponsive episodes with history of orthostatic hypotension -Syncope versus Seizure Versus Hypoglycemia Versus Hypoxemia vs possible side effect of floraquinolones - stop levaquin -Echocardiogram, Telemetry -EEG, MRI to Assess Left Frontal Lobe Abnormality and Rule Out Possible Subacute Stroke, Neuro Checks Every 4 Hours 24 Hours -Check orthostatic vital signs, has been intolerant taking Midrin more than once a day. Takes a typically at 2:00 in the afternoon and has these episodes approximately 2 in the morning. -Accu-Cheks every before meals and at bedtime and 2 AM to rule out nocturnal hypoglycemia -Check AM corisol for possible adrenal insufficiency after steroids. -Discussed with patient that has workup progresses we do not have neurology available and if we find any abnormalities on EEG, any seizure-like activity, she may need transfer to [facility]. Patient would be in agreement with this. Acute kidney injury on chronic kidney disease stage IV -Hold Bumex -Gentle IV fluid hydration with hx of severe lymphedema -Consult Dr. Wheeler -Avoid additional nephrotoxic agents -Repeat basic metabolic profile in a.m. Urinary tract infection, appears partially treated -Outpatient urine culture reviewed and has 2 different Enterobacter. One is indeterminate to Rocephin. Transition IV antibiotics to Zosyn secondary to ALLERGIES and resistance profile. -Await repeat urine culture to see if infection has cleared. COPD without exacerbation - continue home bronchdilators - Consult Dr. Sandoval as she sees Dr. Barraza and dyspnea not responsive to inhailers/steroids - proceed with cardiac work up as listed above. Severe vitamin D deficiency, hyperparathyroidism - Nephro recs - continue with Vit D supplementaiton and calcitrol Hypercalcemia - Likely due to dehydration as was normal on recent outpatient labs - if remain elevated after fluids consider medication adjustments Hypothyroidism - TSH normal on 08/20 - continue home synthroid as has to have the brand Chronic hypoxic respiratory failure - O2 at 2L at night The patient is admitted with an anticipated greater than 2 midnight stay for evaluation of PRIYANKA and unresponsive episodes. Surrogate decision-maker: CODE STATUS:Full DVT prophylaxis: Heparin Discussed with: Patient, , Dr. Chappell Anticipated discharge date: 2-[address]: home A total of 70 minutes was spent on the care of this complex patient more than 50% of the time was spent in counseling and care coordination.
[2018-08-23] MEDS ORDERED: SYMBICORT 80-4.5 MCG INHALER INHALATION SCH (20:00)
[2018-08-23] MEDS ORDERED: FLUTICASONE 220 MCG INHALER INHALATION SCH (20:00)
[2018-08-23] MEDS: ALBUTEROL NEBULIZED 2.5 MG/3 ML INHALATION SCH (20:26)
[2018-08-23] MEDS: DOCUSATE 100 MG CAP PO SCH (20:27)
[2018-08-23] MEDS: FAMOTIDINE 20 MG TAB PO SCH (20:27)
[2018-08-23] MEDS: MIDODRINE 5 MG TAB PO SCH (20:27)
[2018-08-23] MEDS: FLUoxetine HCL 20 MG CAP PO SCH (20:27)
[2018-08-23] MEDS: PIPERACILLIN-TAZOBACTAM 3.375 GM in SODIUM CHLORIDE 0.9% 100 ML IVPB SCH (20:28)
[2018-08-23] MEDS: traMADol 50 MG TAB PO PRN (20:28)
[2018-08-23] MEDS: CALCITRIOL 0.25 MCG CAP PO SCH (21:55)
[2018-08-23] MEDS: POTASSIUM CHLORIDE ER 20 MEQ TAB.ER PO SCH (21:55)
[2018-08-23] MEDS: SODIUM BICARBONATE TAB 650 MG TAB PO SCH (21:55)
[2018-08-23 23:33] LABS: Glucose,Whole Blood 97 mg/dL (75-99)
[2018-08-24] MEDS: traMADol 50 MG TAB PO PRN (01:59)
[2018-08-24] MEDS: HEPARIN SODIUM,PORCINE 5,000 UNIT/ML 1 ML VIAL SQ SCH ×4 (01:59→23:00)
[2018-08-24] MEDS: SODIUM CHLORIDE 0.9% 1,000 ML IV SCH ×2 (02:28→20:33)
[2018-08-24 02:47] LABS: Glucose,Whole Blood 110 mg/dL (75-99)
[2018-08-24] MEDS: LEVOTHYROXINE 112 MCG TAB PO SCH (06:09)
[2018-08-24 07:44] LABS: Glucose,Whole Blood 100 mg/dL (75-99)
[2018-08-24] MEDS: ALBUTEROL NEBULIZED 2.5 MG/3 ML INHALATION SCH ×3 (07:51→20:14)
[2018-08-24] MEDS: MIDODRINE 5 MG TAB PO SCH (08:08)
[2018-08-24] MEDS: SODIUM BICARBONATE TAB 650 MG TAB PO SCH ×3 (08:08→20:26)
[2018-08-24] MEDS: MONTELUKAST 10 MG TAB PO SCH (08:08)
[2018-08-24] MEDS: PANTOPRAZOLE 40 MG TABLET PO SCH (08:08)
[2018-08-24] MEDS: DOCUSATE 100 MG CAP PO SCH ×2 (08:08→20:26)
[2018-08-24] MEDS: LORATADINE 10 MG TAB PO SCH (08:08)
[2018-08-24] MEDS: PIPERACILLIN-TAZOBACTAM 3.375 GM in SODIUM CHLORIDE 0.9% 100 ML IVPB SCH ×2 (08:09→20:25)
[2018-08-24] MEDS: POTASSIUM CHLORIDE ER 20 MEQ TAB.ER PO SCH (08:09)
[2018-08-24] MEDS: CALCITRIOL 0.25 MCG CAP PO SCH ×3 (08:09→20:26)
[2018-08-24] MEDS: metroNIDAZOLE 250 MG TABLET PO SCH (08:10)
[2018-08-24] MEDS: ERGOCALCIFEROL 50,000 UNIT CAP PO SCH (08:10)
[2018-08-24 08:23] LABS: HGB 11.6 gm/dL (11.4-16.0); Hypochromasia Slight; MCH 31.1 pg (25.0-35.0); MCHC 30.5 g/dL (31.0-37.0); MCV 102.1 fL (80.0-100.0); Macrocytosis Slight; Mean Platelet Volume 7.2; Platelet Count 167 k/uL (150-450); RBC 3.73 m/uL (3.80-5.40); RDW 12.7 % (11.5-15.5); WBC 4.9 k/uL (3.8-10.6)
[2018-08-24 08:27] LABS: Magnesium 2.2 mg/dL (1.6-2.3); Phosphorus 5.1 mg/dL (2.5-4.5)
--- NOTE | 2018-08-24 08:55 | P.NPCON ---
History of Present Illness - Reason for Consult acute renal failure, chronic renal failure - History of Present Illness Reason for consultation: Acute kidney injury on chronic kidney disease. History of present illness: Patient is a 73-year-old female seen in renal consultation for acute kidney injury on chronic kidney disease. Patient has chronic kidney disease stage III with baseline creatinine in the range of 1.7-1.9 secondary to interstitial nephritis. Patient also has chronic lymphedema and is maintained on diuretics at home. Patient states for the last 3 weeks she's been feeling quite weak. She's been having episodes of staring and diaphoresis. Her videotaped her during the episode which I did view myself. Oral intake has been fair. No vomiting or diarrhea. She has been voiding. No hematuria or dysuria. Denies use of nonsteroidals. No fever or chills. Creatinine was 2.28 on admission is 2.15 today. Diuretics are currently held. Hemodynamically she stable although blood pressures are slightly on the lower side. Vital signs are stable. General: The patient appeared well nourished and normally developed. HEENT: Head exam is unremarkable. Neck is without jugular venous distension. LUNGS: Lungs are clear to auscultation and percussion. Breath sounds decreased. HEART: Rate and Rhythm are regular. First and second heart sounds normal. No murmurs, rubs or gallops. ABDOMEN: Abdominal exam reveals normal bowel sounds. Non-tender and non- distended. No evidence of peritonitis. EXTREMITITES: 1+ edema. Past Medical History Past Medical History: COPD, Renal Disease, Thyroid Disorder Additional Past Medical History / Comment(s): hx lymphedema hx pulmonary fibrosis hx graves hx rt foot torn ligaments hx kidney stones hx osteoporosis, prostatic hypotension, chronic respiratory failure on 2 L nasal cannula at night, vitamine D deficiency, hypocalcemia History of Any Multi-Drug Resistant Organisms: None Reported Past Surgical History: Bariatric Surgery, Cholecystectomy, Heart Catheterization, Hernia Repair, Hysterectomy, Tonsillectomy, Tubal Ligation Additional Past Surgical History / Comment(s): hx bariatric surgery hx lung biopsy hx radioactive iodine, hx rectal and bladder suspensions Past Anesthesia/Blood Transfusion Reactions: No Reported Reaction, Previous Problems w/ Anesthesia, Postoperative Nausea & Vomiting (PONV) Additional Past Anesthesia/Blood Transfusion Reaction / Comment(s): decrease bp with anesthesia Past Psychological History: No Psychological Hx Reported Smoking Status: Never smoker Past Alcohol Use History: None Reported Past Drug Use History: None Reported - Past Family History Father Family Medical History: Coronary Artery Disease (CAD) Additional Family Medical History / Comment(s): hx alzheimers, lung disease, malaria Mother Family Medical History: Cancer Additional Family Medical History / Comment(s): arthritis/osteoporosis Sister(s) Additional Family Medical History / Comment(s): myasthenia gravis/ iddm/ crohns Daughter(s) Additional Family Medical History / Comment(s): lymphedema in legs Medications and Allergies Home Medications Medication Instructions Recorded Confirmed Type Albuterol Nebulized [Ventolin 2.5 mg INHALATION RT-TID 08/23/18 08/23/18 History Nebulized] Albuterol Sulfate [Proair Hfa] 2 puff INHALATION RT-QID PRN 08/23/18 08/23/18 History Bumetanide [Bumex] 1 mg PO DAILY 08/23/18 08/23/18 History Calcitriol 1 mcg PO TID 08/23/18 08/23/18 History Cranberry Clinical Strength 500mg 500 mg PO DAILY 08/23/18 08/23/18 History Docusate [Colace] 200 mg PO BID 08/23/18 08/23/18 History Ergocalciferol (Vitamin D2) 50,000 unit PO MOWEFR 08/23/18 08/23/18 History [Vitamin D2] FLUoxetine HCL [PROzac] 20 mg PO BID@1400,2000 08/23/18 08/23/18 History Fluticasone/Salmeterol [Advair 1 puff INHALATION RT-BID 08/23/18 08/23/18 History 250-50 Diskus] Levofloxacin [Levaquin] 500 mg PO DAILY 08/23/18 08/23/18 History Levothyroxine Sodium [Synthroid] 112 mcg PO MOTUWETHFRSA 08/23/18 08/23/18 History Levothyroxine Sodium [Synthroid] 224 mcg PO MURO 08/23/18 08/23/18 History Loratadine [Alavert] 10 mg PO DAILY 08/23/18 08/23/18 History Midodrine [ProAmatine] 5 mg PO DAILY 08/23/18 08/23/18 History Mometasone Inhalr 220 Mcg/Puff 2 puff INHALATION RT-HS 08/23/18 08/23/18 History [Asmanex] Montelukast [Singulair] 10 mg PO DAILY 08/23/18 08/23/18 History Omeprazole 40 mg PO DAILY 08/23/18 08/23/18 History Potassium Chloride ER [K-Dur 20] 40 meq PO TID 08/23/18 08/23/18 History Ranitidine HCl 300 mg PO HS 08/23/18 08/23/18 History Rising Mag64 W/Calcium 1 tab PO DAILY 08/23/18 08/23/18 History Sodium Bicarbonate Tab 650 mg PO TID 08/23/18 08/23/18 History methylPREDNISolone Dose Pack See Taper PO DIRECTED 08/23/18 08/23/18 History [Medrol Dose Pack] metroNIDAZOLE [Flagyl] 250 mg PO DAILY 08/23/18 08/23/18 History traMADol HCL [Ultram] 50 mg PO TID PRN 08/23/18 08/23/18 History Allergies Allergy/AdvReac Type Severity Reaction Status Date / Time adhesive tape Allergy Rash/Hives Verified 08/23/18 15:51 Sulfa (Sulfonamide Allergy Itching Verified 08/23/18 15:51 Antibiotics) tetracycline Allergy Nausea & Verified 08/23/18 15:51 Vomiting codeine AdvReac Nausea Verified 08/23/18 15:51 Physical Exam Vitals: Vital Signs Temp Pulse Pulse Resp BP BP Pulse Ox 08/24/18 07:00 97.5 F L 64 18 106/70 98 08/24/18 01:00 97.7 F 59 L 16 100/65 98 08/23/18 18:00 98.0 F 73 16 115/75 97 08/23/18 17:04 74 16 113/75 98 08/23/18 15:18 67 16 127/82 97 08/23/18 14:22 97.9 F 91 16 100/72 100 Intake and Output 08/23/18 08/24/18 08/24/18 22:59 06:59 14:59 Intake Total 280 890 Balance 280 890 Intake: Intake, IV Titration 280 100 Amount Piperacillin-Tazobactam 3 100 100 .375 gm In Sodium Chloride 0.9% 100 ml @ 25 mls/hr IVPB Q12HR [facility] Rx #:[id number] Sodium Chloride 0.9% 1, 180 000 ml @ 60 mls/hr IV . [id number] [facility] Rx#:[id number] Oral 790 Other: Voiding Method Toilet # Voids 2 Results - Lab Results Most recent lab results Calcium 9.0 mg/dL (8.4-10.2) 08/24/18 07:06 Phosphorus 5.1 mg/dL (2.5-4.5) H 08/24/18 07:06 Magnesium 2.2 mg/dL (1.6-2.3) 08/24/18 07:06 08/24/18 07:06 08/24/18 07:06 Assessment and Plan Plan: Assessment: 1. Acute kidney injury mostly prerenal secondary to diuresis. Creatinine 2.8 on admission and is 2.15 today. 2. Chronic kidney disease stage III with baseline creatinine in the range of 1.7-1.9 secondary to interstitial nephritis. No proteinuria on UA. 3. Intermittent episodes of unresponsiveness/staring/diaphoresis. Unclear etiology. ? Seizure. Questionable subacute lacunar injury noted on brain CT. 4. Metabolic acidosis secondary to chronic kidney disease maintained on oral sodium bicarbonate. 5. Chronic hypocalcemia maintained on daily calcium and calcitriol supplement. Calcium was slightly on the higher side but is in the normal range today. 6. Hyperphosphatemia secondary to acute kidney injury. Monitor. 7. UTI maintain on antibiotics. Follow-up cultures. Plan: Follow-up MRI of the brain, EEG and echocardiogram. Maintain gentle IV hydration. Continue to hold diuretics. Repeat electrolytes in the morning. Thank you for the consultation. I will continue to follow the patient with you during her hospital stay.
[2018-08-24] MEDS: SYMBICORT 80-4.5 MCG INHALER INHALATION SCH ×2 (09:24→20:14)
--- NOTE | 2018-08-24 13:14 | P.PN ---
Subjective Progress Note Date: 08/24/18 The patient is a 73 yo F with a PMH of CAD stage IV, hypoglycemia, vitamin D deficiency, COPD, hypothyroidism, and severe bilateral lymphedema is admitted to the ED due to feeling fatigued and having episodes of syncope and unresponsiveness at home. In the ED she underwent an extensive evaluation. Laboratory analysis was consistent with partially treated urinary tract infection. Blood work revealed an elevated BUN of 63 and creatinine of 2.28. Head CT showed new focus of left front lobe white matter changes. Chest x-ray showed strandy atelectasis. EKG did not show any definitive changes. She was given a dose of Rocephin and IV fluids and was admitted to the medicine service. Patient was seen and examined at the bedside. She reports that her symptoms have improved since admission and she hasn't had any further episodes of unresponsiveness or loss of consciousness. She further denied fever, chills, nausea, vomiting, chest pain, shortness of breath, diarrhea, headaches, or dizziness. Objective - Vital Signs Vital signs: Vital Signs Temp 97.5 F L 08/24/18 07:00 Pulse 64 08/24/18 08:00 Resp 18 08/24/18 08:00 BP 106/70 08/24/18 07:00 Pulse Ox 98 08/24/18 07:00 Intake & Output 08/23/18 08/24/18 08/24/18 18:59 06:59 18:59 Intake Total 1170 236 Balance 1170 236 Weight 56.699 kg Intake: Intake, IV Titration 380 Amount Piperacillin-Tazobactam 3 200 .375 gm In Sodium Chloride 0.9% 100 ml @ 25 mls/hr IVPB Q12HR [facility] Rx #:[id number] Sodium Chloride 0.9% 1, 180 000 ml @ 60 mls/hr IV . [id number] [facility] Rx#:[id number] Oral 790 236 Other: Voiding Method Toilet Toilet # Voids 2 - Exam General: Non-toxic, in no acute distress, appears stated age, normal weight HEENT: NC/AT, anicteric sclerae, moist conjunctiva, no lid-lag, PERRLA Cardiovascular: S1/S2 wnl, no murmurs, rubs, or gallops Lungs: Clear to auscultation, normal respiratory effort, no accessory muscle use Abdominal: Soft, non-tender, non-distended, no guarding, rebound, or rigidity Skin: Warm, dry Extremities: No edema or contractures Psychiatric: Alert and oriented to person, place and time, appropriate affect Neuro: CN II-XII grossly intact, Strength 5/5 in all 4 extremities, Speech intact, Sensation to light touch grossly intact throughout - Labs CBC & Chem 7: 08/24/18 07:06 08/24/18 07:06 Labs: Abnormal Lab Results - Last 24 Hours (Table) 08/23/18 08/23/18 08/23/18 Range/Units 14:55 14:55 14:55 RBC (3.80-5.40) m/uL MCV (80.0-100.0) fL MCHC 30.7 L (31.0-37.0) g/dL APTT 21.1 L (22.0-30.0) sec Chloride (98-107) mmol/L Carbon Dioxide 21 L (22-30) mmol/L BUN 63 H (7-17) mg/dL Creatinine 2.28 H (0.52-1.04) mg/dL Glucose 105 H (74-99) mg/dL POC Glucose (mg/dL) (75-99) mg/dL Calcium 10.6 H (8.4-10.2) mg/dL Phosphorus (2.5-4.5) mg/dL Total Protein 6.2 L (6.3-8.2) g/dL Free T3 pg/mL 2.1 L (2.8-5.3) pg/ml Urine Appearance (Clear) Ur Leukocyte Esterase (Negative) Urine WBC (0-5) /hpf Urine Bacteria (None) /hpf Urine Mucus (None) /hpf 08/23/18 08/24/18 08/24/18 Range/Units 14:55 02:45 07:06 RBC (3.80-5.40) m/uL MCV (80.0-100.0) fL MCHC (31.0-37.0) g/dL APTT (22.0-30.0) sec Chloride 108 H (98-107) mmol/L Carbon Dioxide (22-30) mmol/L BUN 62 H (7-17) mg/dL Creatinine 2.15 H (0.52-1.04) mg/dL Glucose (74-99) mg/dL POC Glucose (mg/dL) 110 H (75-99) mg/dL Calcium (8.4-10.2) mg/dL Phosphorus 5.1 H (2.5-4.5) mg/dL Total Protein (6.3-8.2) g/dL Free T3 pg/mL (2.8-5.3) pg/ml Urine Appearance Cloudy H (Clear) Ur Leukocyte Esterase Large H (Negative) Urine WBC 38 H (0-5) /hpf Urine Bacteria Occasional H (None) /hpf Urine Mucus Rare H (None) /hpf 08/24/18 08/24/18 Range/Units 07:06 07:33 RBC 3.73 L (3.80-5.40) m/uL MCV 102.1 H (80.0-100.0) fL MCHC 30.5 L (31.0-37.0) g/dL APTT (22.0-30.0) sec Chloride (98-107) mmol/L Carbon Dioxide (22-30) mmol/L BUN (7-17) mg/dL Creatinine (0.52-1.04) mg/dL Glucose (74-99) mg/dL POC Glucose (mg/dL) 100 H (75-99) mg/dL Calcium (8.4-10.2) mg/dL Phosphorus (2.5-4.5) mg/dL Total Protein (6.3-8.2) g/dL Free T3 pg/mL (2.8-5.3) pg/ml Urine Appearance (Clear) Ur Leukocyte Esterase (Negative) Urine WBC (0-5) /hpf Urine Bacteria (None) /hpf Urine Mucus (None) /hpf Microbiology - Last 24 Hours (Table) 08/23/18 14:55 Urine Culture - Preliminary Urine,Voided Assessment and Plan Plan: Episodes of unresponsiveness, syncope versus seizure versus possible side effect of fluoroquinolones versus hypoglycemia -EEG and MRI pending -Continue with neuro checks every 4 hourly -Follow up echocardiogram -Continue with cardiac monitoring -Follow-up AM cortisol levels PRIYANKA on CKD stage III, improved -Nephrology consult appreciated -Follow-up BMP -Continue to hold Bumex UTI -Continue with Zosyn due to ALLERGIES and resistance profile of outpatient urine culture studies showing Enterobacter COPD without exacerbation -Continue with bronchodilators Vitamin D deficiency and hypocalcemia -Continue supplementation Hyperphosphatemia -Nephrology recs appreciated Hypothyroidism -Continue with home meds Chronic hypoxic respiratory failure -Continue with oxygen supplementation DVT//GI prophylaxis -Heparin -No indication for GI prophylaxis Discussed with: Patient Anticipated discharge date: 08/27/[address]: Home A total of 35 minutes was spent on the care of this complex patient more than 50% of the time was spent in counseling and care coordination.
[2018-08-24 13:40] LABS: Glucose,Whole Blood 105 mg/dL (75-99)
--- NOTE | 2018-08-24 14:45 | MR ---
EXAMINATION TYPE: MR brain wo con DATE OF EXAM: 08/24/2018 2:41 PM COMPARISON: NONE HISTORY: Stroke FINDINGS: The ventricles, basal cisterns and sulci overlying the cerebral convexities are mildly enlarged. There is evidence of mild to moderate periventricular white matter ischemic demyelination. Remote deep white matter insults are also noted. No acute edema is seen on diffusion weighted imaging. There is no evidence for midline shift or mass effect. Acute intracranial hemorrhage or extra-axial collection is not evident. The paranasal sinuses and mastoid air cells are well-aerated. IMPRESSION: Age-related atrophic and chronic small vessel ischemic change. No acute intracranial process at this time.
[2018-08-24] MEDS: FLUoxetine HCL 20 MG CAP PO SCH ×2 (14:49→20:26)
[2018-08-24 17:02] LABS: Glucose,Whole Blood 101 mg/dL (75-99)
--- NOTE | 2018-08-24 17:35 | P.CNPUL ---
History of Present Illness Consult date: 08/24/18 Requesting physician: Alma Sellers Reason for consult: dyspnea, COPD Chief complaint: Generalized weakness, intermittent fevers History of present illness: This is a very pleasant 73-year-old female patient who follows with Dr. xie as her primary care physician. He has a history of hypothyroidism, depression, lymphedema, osteoporosis, nephrolithiasis. She has has a history of mild inte rmittent asthma, seasonal ALLERGIC rhinitis and has been seen by Dr. Alfredo in our office in the past. She is maintained on Singulair and albuterol. He presented here to the emergency room with complaints of increasing weakness and recent syncopal episodes that happened about 6 times since the beginning of the year. Computed tomography scan of the brain reveals no acute intracranial hemorrhage or midline shift. There is a new focus of left frontal subcortical white matter changing 07 with previous. Possible subacute lacunar injury versus chronic microangiopathy is within the differential. An MRI of the brain revealed age-related atrophic and chronic small vessel ischemic changes. No a cute intracranial process. EEG is pending. Chest x-ray reveals strandy area of atelectasis but no acute pulmonary process. She is seen today in consultation on the regular medical floor. She is awake and alert in no acute distress at this time. She is maintaining O2 saturations in the 90s on room air. She's afebrile. Hemodynamically stable. Urinalysis with large leukocytes occasional bacteria and rare mucus. Culture pending. Influenza screen is negative. White count 4.9. Hemoglobin 11.6. Creatinine 2.15. She has been initiated on Zosyn. Symbicort, singular, albuterol. Review of Systems REVIEW OF SYSTEMS: CONSTITUTIONAL: Denies any recent significant weight loss or weight gain. EYES: Denies change in vision. EARS, NOSE, MOUTH, THROAT: Denies headaches, denies sore throat. CARDIOVASCULAR: Denies chest pain, palpitations questionable syncopal episodes. RESPIRATORY: Denies shortness of breath, cough, congestion or hemoptysis. GASTROINTESTINAL: Denies change in appetite, denies abdominal pain GENITOURINARY: Denies hematuria, denies infections. MUSKULOSKELETAL: Denies pain, denies swelling. INTEGUMENTARY: Denies rash, denies eczema. NEUROLOGICAL: Recent question of seizure activity. PSYCHIATRIC: depression. HEMATOLOGIC/LYMPHATIC: Denies anemia, denies enlarged lymph nodes. Past Medical History Past Medical History: COPD, Renal Disease, Thyroid Disorder Additional Past Medical History / Comment(s): hx lymphedema hx pulmonary fibrosis hx graves hx rt foot torn ligaments hx kidney stones hx osteoporosis, prostatic hypotension, chronic respiratory failure on 2 L nasal cannula at night, vitamine D deficiency, hypocalcemia History of Any Multi-Drug Resistant Organisms: None Reported Past Surgical History: Bariatric Surgery, Cholecystectomy, Heart Catheterization, Hernia Repair, Hysterectomy, Tonsillectomy, Tubal Ligation Additional Past Surgical History / Comment(s): hx bariatric surgery hx lung biopsy hx radioactive iodine, hx rectal and bladder suspensions Past Anesthesia/Blood Transfusion Reactions: No Reported Reaction, Previous Problems w/ Anesthesia, Postoperative Nausea & Vomiting (PONV) Additional Past Anesthesia/Blood Transfusion Reaction / Comment(s): decrease bp with anesthesia Past Psychological History: No Psychological Hx Reported Smoking Status: Never smoker Past Alcohol Use History: None Reported Past Drug Use History: None Reported - Past Family History Father Family Medical History: Coronary Artery Disease (CAD) Additional Family Medical History / Comment(s): hx alzheimers, lung disease, malaria Mother Family Medical History: Cancer Additional Family Medical History / Comment(s): arthritis/osteoporosis Sister(s) Additional Family Medical History / Comment(s): myasthenia gravis/ iddm/ crohns Daughter(s) Additional Family Medical History / Comment(s): lymphedema in legs Medications and Allergies Home Medications Medication Instructions Recorded Confirmed Type Albuterol Nebulized [Ventolin 2.5 mg INHALATION RT-TID 08/23/18 08/23/18 History Nebulized] Albuterol Sulfate [Proair Hfa] 2 puff INHALATION RT-QID PRN 08/23/18 08/23/18 History Bumetanide [Bumex] 1 mg PO DAILY 08/23/18 08/23/18 History Calcitriol 1 mcg PO TID 08/23/18 08/23/18 History Cranberry Clinical Strength 500mg 500 mg PO DAILY 08/23/18 08/23/18 History Docusate [Colace] 200 mg PO BID 08/23/18 08/23/18 History Ergocalciferol (Vitamin D2) 50,000 unit PO MOWEFR 08/23/18 08/23/18 History [Vitamin D2] FLUoxetine HCL [PROzac] 20 mg PO BID@1400,2000 08/23/18 08/23/18 History Fluticasone/Salmeterol [Advair 1 puff INHALATION RT-BID 08/23/18 08/23/18 H istory 250-50 Diskus] Levofloxacin [Levaquin] 500 mg PO DAILY 08/23/18 08/23/18 History Levothyroxine Sodium [Synthroid] 112 mcg PO MOTUWETHFRSA 08/23/18 08/23/18 History Levothyroxine Sodium [Synthroid] 224 mcg PO MURO 08/23/18 08/23/18 History Loratadine [Alavert] 10 mg PO DAILY 08/23/18 08/23/18 History Midodrine [ProAmatine] 5 mg PO DAILY 08/23/18 08/23/18 History Mometasone Inhalr 220 Mcg/Puff 2 puff INHALATION RT-HS 08/23/18 08/23/18 History [Asmanex] Montelukast [Singulair] 10 mg PO DAILY 08/23/18 08/23/18 History Omeprazole 40 mg PO DAILY 08/23/18 08/23/18 History Potassium Chloride ER [K-Dur 20] 40 meq PO TID 08/23/18 08/23/18 History Ranitidine HCl 300 mg PO HS 08/23/18 08/23/18 History Rising Mag64 W/Calcium 1 tab PO DAILY 08/23/18 08/23/18 History Sodium Bicarbonate Tab 650 mg PO TID 08/23/18 08/23/18 History methylPREDNISolone Dose Pack See Taper PO DIRECTED 08/23/18 08/23/18 History [Medrol Dose Pack] metroNIDAZOLE [Flagyl] 250 mg PO DAILY 08/23/18 08/23/18 History traMADol HCL [Ultram] 50 mg PO TID PRN 08/23/18 08/23/18 History Allergies Allergy/AdvReac Type Severity Reaction Status Date / Time adhesive tape Allergy Rash/Hives Verified 08/23/18 15:51 Sulfa (Sulfonamide Allergy Itching Verified 08/23/18 15:51 Antibiotics) tetracycline Allergy Nausea & Verified 08/23/18 15:51 Vomiting codeine AdvReac Nausea Verified 08/23/18 15:51 Physical Exam Vitals: Vital Signs Temp Pulse Pulse Resp BP BP Pulse Ox 08/24/18 16:00 62 18 08/24/18 15:00 98.4 F 62 18 123/73 97 08/24/18 08:00 64 18 08/24/18 07:00 97.5 F L 64 18 106/70 98 08/24/18 01:00 97.7 F 59 L 16 100/65 98 08/23/18 18:00 98.0 F 73 16 115/75 97 Intake and Output 08/24/18 08/24/18 08/24/18 06:59 14:59 22:59 Intake Total 890 476 Balance 890 476 Intake: Intake, IV Titration 100 240 Amount Piperacillin-Tazobactam 3 100 .375 gm In Sodium Chloride 0.9% 100 ml @ 25 mls/hr IVPB Q12HR [facility] Rx #:[id number] Sodium Chloride 0.9% 1, 240 000 ml @ 60 mls/hr IV . [id number] [facility] Rx#:[id number] Oral 790 236 Other: Voiding Method Toilet Toilet # Voids 2 GENERAL EXAM: Alert, comfortable in no apparent distress. On room air. HEAD: Normocephalic. EYES: Normal reaction of pupils, equal size. NOSE: Clear with pink turbinates. THROAT: No erythema or exudates. NECK: No masses, no JVD. CHEST: No chest wall deformity. LUNGS: Equal air entry with no crackles, wheeze, rhonchi or dullness. CVS: S1 and S2 normal with no audible murmur, regular rhythm. ABDOMEN: No hepatosplenomegaly, normal bowel sounds, no guarding or rigidity. SPINE: No scoliosis or deformity SKIN: No rashes CENTRAL NERVOUS SYSTEM: No focal deficits, tone is normal in all 4 extremities. EXTREMITIES: There is no peripheral edema. No clubbing, no cyanosis. Peripheral pulses are intact. Results - Laboratory Findings CBC and BMP: 08/24/18 07:06 08/24/18 07:06 PT/INR, D-dimer PT 9.8 sec (9.0-12.0) 08/23/18 14:55 INR 0.9 (<1.2) 08/23/18 14:55 Abnormal lab findings: Abnormal Labs 03/21/19 03/21/19 03/21/19 14:55 14:55 14:55 RBC MCV MCHC 30.7 L APTT 21.1 L Chloride Carbon Dioxide 21 L BUN 63 H Creatinine 2.28 H Glucose 105 H POC Glucose (mg/dL) Calcium 10.6 H Phosphorus Total Protein 6.2 L Free T3 pg/mL 2.1 L Urine Appearance Ur Leukocyte Esterase Urine WBC Urine Bacteria Urine Mucus 08/23/18 08/24/18 08/24/18 14:55 02:45 07:06 RBC MCV MCHC APTT Chloride 108 H Carbon Dioxide BUN 62 H Creatinine 2.15 H Glucose POC Glucose (mg/dL) 110 H Calcium Phosphorus 5.1 H Total Protein Free T3 pg/mL Urine Appearance Cloudy H Ur Leukocyte Esterase Large H Urine WBC 38 H Urine Bacteria Occasional H Urine Mucus Rare H 08/24/18 08/24/18 08/24/18 07:06 07:33 13:28 RBC 3.73 L MCV 102.1 H MCHC 30.5 L APTT Chloride Carbon Dioxide BUN Creatinine Glucose POC Glucose (mg/dL) 100 H 105 H Calcium Phosphorus Total Protein Free T3 pg/mL Urine Appearance Ur Leukocyte Esterase Urine WBC Urine Bacteria Urine Mucus 08/24/18 16:50 RBC MCV MCHC APTT Chloride Carbon Dioxide BUN Creatinine Glucose POC Glucose (mg/dL) 101 H Calcium Phosphorus Total Protein Free T3 pg/mL Urine Appearance Ur Leukocyte Esterase Urine WBC Urine Bacteria Urine Mucus - Diagnostic Findings Chest x-ray: image reviewed (No acute pulmonary process) Assessment and Plan Assessment: Impression: #1 Progressive weakness and fatigue secondary to suspected urinary tract infection. Culture pending. #2 Episodes of possible seizures. MRI of the brain reveals no acute intracranial process. EEG is pending. #3 Chronic obstructive pulmonary disease, currently inactive and stable. No evidence of pneumonia. #4 Acute and chronic renal failure secondary to diuresis. Prerenal. #5 Chronic kidney disease, stage III. #6 History of Graves' disease hypothyroidism. #7 Osteoporosis. Tashia: The patient was seen and evaluated by Dr. Sandoval. She is currently stable from the pulmonary standpoint. We'll continue Symbicort, bronchodilators, Singulair. Continue workup for her syncope episodes. Continue to follow. I, the cosigning physician, performed a history & physical examination of the patient. Lungs sounds are clear. Maintaining good O2 saturations in the 90s on room air. I discussed the assessment and plan of care with my nurse practitioner, Dione Bullock. I attest to the above note as dictated by her. Time with Patient: Greater than 30
--- NOTE | 2018-08-24 18:46 | ECHOF ---
Referral Reason:syncope MEASUREMENTS -------- HEIGHT: 162.6 cm WEIGHT: 56.7 kg BP: 100/65 RVIDd: 2.6 cm (< 3.3) IVSd: 1.2 cm (0.6 - 1.1) LVIDd: 3.2 cm (3.9 - 5.3) LVPWd: 1.2 cm (0.6 - 1.1) IVSs: 1.5 cm LVIDs: 2.5 cm LVPWs: 1.7 cm LA Diam: 3.0 cm (2.7 - 3.8) LAESV Index (A-L): 16.30 ml/m Ao Diam: 3.2 cm (2.0 - 3.7) AV Cusp: 1.9 cm (1.5 - 2.6) MV EXCURSION: 9.024 mm (> 18.000) MV EF SLOPE: 55 mm/s (70 - 150) EPSS: 0.5 cm MV E Hawk: 0.80 m/s MV DecT: 184 ms MV A Hawk: 0.66 m/s MV E/A Ratio: 1.21 RAP: 5.00 mmHg RVSP: 22.55 mmHg FINDINGS -------- Sinus rhythm. This was a technically adequate study. The left ventricular size is normal. There is borderline concentric left ventricular hypertrophy. Overall left ventricular systolic function is normal with, an EF between 60 - 65 %. The right ventricle is normal in size. Normal LA size by volume 22+/-6 ml/m2. The right atrium is normal in size. The aortic valve is trileaflet and appears structurally normal. The mitral valve is normal. Mild tricuspid regurgitation present. Right ventricular systolic pressure is normal at < 35 mmHg. There is no pulmonic regurgitation present. The aortic root size is normal. Normal inferior vena cava with normal inspiratory collapse consistent with estimated right atrial pre ssure of 5 mmHg. There is no pericardial effusion. CONCLUSIONS -------- 1. Sinus rhythm. 2. This was a technically adequate study. 3. The left ventricular size is normal. 4. There is borderline concentric left ventricular hypertrophy. 5. Overall left ventricular systolic function is normal with, an EF between 60 - 65 %. 6. The right ventricle is normal in size. 7. Normal LA size by volume 22+/-6 ml/m2. 8. The right atrium is normal in size. 9. The aortic valve is trileaflet and appears structurally normal. 10. The mitral valve is normal. 11. Mild tricuspid regurgitation present. 12. Right ventricular systolic pressure is normal at < 35 mmHg. 13. There is no pulmonic regurgitation present. 14. The aortic root size is normal. 15. Normal inferior vena cava with normal inspiratory collapse consistent with estimated right atrial pressure of 5 mmHg. 16. There is no pericardial effusion. [employer]: Consuelo Lr RDCS
[2018-08-24 20:11] LABS: Glucose,Whole Blood 90 mg/dL (75-99)
[2018-08-24] MEDS: FLUTICASONE 220 MCG INHALER INHALATION SCH (20:16)
[2018-08-24] MEDS: FAMOTIDINE 20 MG TAB PO SCH (20:26)
[2018-08-25 02:44] LABS: Glucose,Whole Blood 105 mg/dL (75-99)
[2018-08-25] MEDS: LEVOTHYROXINE 112 MCG TAB PO SCH (05:09)
[2018-08-25 07:11] LABS: Glucose,Whole Blood 97 mg/dL (75-99)
[2018-08-25] MEDS: PIPERACILLIN-TAZOBACTAM 3.375 GM in SODIUM CHLORIDE 0.9% 100 ML IVPB SCH ×2 (09:03→20:02)
[2018-08-25] MEDS: HEPARIN SODIUM,PORCINE 5,000 UNIT/ML 1 ML VIAL SQ SCH ×3 (09:03→23:25)
[2018-08-25] MEDS: PANTOPRAZOLE 40 MG TABLET PO SCH (09:06)
[2018-08-25] MEDS: CALCITRIOL 0.25 MCG CAP PO SCH ×3 (09:06→21:18)
[2018-08-25] MEDS: SODIUM BICARBONATE TAB 650 MG TAB PO SCH ×3 (09:06→21:18)
[2018-08-25] MEDS: DOCUSATE 100 MG CAP PO SCH ×2 (09:06→20:22)
[2018-08-25] MEDS: LORATADINE 10 MG TAB PO SCH (09:06)
[2018-08-25] MEDS: MONTELUKAST 10 MG TAB PO SCH (09:06)
[2018-08-25] MEDS: MIDODRINE 5 MG TAB PO SCH (09:06)
[2018-08-25] MEDS: metroNIDAZOLE 250 MG TABLET PO SCH (09:06)
--- NOTE | 2018-08-25 09:28 | P.PN ---
Subjective Progress Note Date: 08/25/18 Principal diagnosis: This is a 73-year-old female with chronic kidney disease who came in because of change in mental status and possible seizures. She was seen because of acute k idney injury deemed to be from volume depletion from diuretics. Off of diuretics creatinine is improved. She denies any dizziness cough shortness of breath fever chills nausea vomiting diarrhea. She does maintain that for the last 1 month she's been feeling very weak and tired and this is not her regular baseline. Workup has included a normal TSH at 3.5, slightly low free T3 at 2.1 free T4 is 3.06. Cortisol level is 17. Blood cultures and urine cultures are negative She is known with chronic kidney disease, history of Elly fibrosis Graves' disease history of kidney stones. She is known with history of bariatric surgery and bladder and rectal suspension surgery and heart catheterization. Objective - Vital Signs Vital signs: Vital Signs Temp 97.8 F 08/25/18 09:08 Pulse 64 08/25/18 09:08 Resp 16 08/25/18 09:08 BP 111/63 08/25/18 09:08 Pulse Ox 99 08/25/18 09:08 Intake & Output 08/24/18 08/25/18 08/25/18 18:59 06:59 18:59 Intake Total 476 310 Balance 476 310 Intake: Intake, IV Titration 240 310 Amount Piperacillin-Tazobactam 3 100 .375 gm In Sodium Chloride 0.9% 100 ml @ 25 mls/hr IVPB Q12HR [facility] Rx #:[id number] Sodium Chloride 0.9% 1, 240 210 000 ml @ 60 mls/hr IV . [id number] [facility] Rx#:[id number] Oral 236 Other: Voiding Method Toilet Toilet # Voids 2 On examination she is awake alert oriented comfortable Warm to touch No JVP noted neck is supple no facial asymmetry Lungs are clear to auscultation good air entry bilaterally Heart sounds are unremarkable for any murmur rub gallop Abdomen soft nontender no masses felt Extremity exam was no nodules underneath her skin and somewhat tender minimal edema. Neurologically awake alert oriented no asterixis. No focal motor deficit - Labs CBC & Chem 7: 08/24/18 07:06 08/24/18 07:06 Labs: Abnormal Lab Results - Last 24 Hours (Table) 08/24/18 08/24/18 08/25/18 Range/Units 13:28 16:50 02:33 POC Glucose (mg/dL) 105 H 101 H 105 H (75-99) mg/dL Microbiology - Last 24 Hours (Table) 08/23/18 14:55 Urine Culture - Final Urine,Voided 08/23/18 17:15 Blood Culture - Preliminary Blood No Growth after 24 hours Assessment and Plan Assessment: Impression 1. Acute kidney injury secondary to volume depletion from diuretics improved red and improved from 2.28-2.1. Normal electrolytes. 2. Chronic kidney disease Baseline creatinine about 1.4-1.8, urinalysis is benign except for 38 WBCs and 1 RBC. Protein negative, suspected chronic interstitial nephritis 3. Admitted with changes in mental status and possible seizures MRI negative. 4 chronic hypotension on Midrin blood. In the 90s to 100 range. 5. History of lymphedema currently minimal. 6. Chronic metabolic acidosis maintained in bicarb and bicarb is normal. 7. Currently hypercalcemic day before yesterday with calcium 10.6, down to 9 yesterday , history of Hypocalcemia, etiology is unclear at this time and maintained on calcitriol fairly large doses 1 mics 3 times a day Recommendation. 1. Maintain current medications, including vitamin D. 2. watch calcium. 3. Maintain Midrin 4. Needs further workup regarding her chronic fatigue for the last 1 month
[2018-08-25] MEDS: ALBUTEROL NEBULIZED 2.5 MG/3 ML INHALATION SCH ×3 (09:47→20:33)
[2018-08-25] MEDS: SYMBICORT 80-4.5 MCG INHALER INHALATION SCH ×2 (09:47→20:33)
[2018-08-25 12:07] LABS: Glucose,Whole Blood 94 mg/dL (75-99)
--- NOTE | 2018-08-25 13:39 | US ---
EXAMINATION TYPE: US abdomen complete DATE OF EXAM: 08/25/2018 COMPARISON: US 2018 CLINICAL HISTORY: history of bariatric surgery. Abdomen pain, history of cholecystectomy, exam done p ortable. EXAM MEASUREMENTS: Liver Length: 13.9 cm Gallbladder Wall: surgically absent CBD: 0.7 cm Spleen: 8.9 cm Right Kidney: 10.3 x 4.4 x 4.7 cm Left Kidney: 9.6 x 4.9 x 4.3 cm Pancreas: obscured by overlying midline bowel gas Liver: wnl Gallbladder: surgically absent Evidence for sonographic Fuentes's sign: no CBD: visualized portions wnl, limited by overlying bowel gas Spleen: wnl Right Kidney: hydronephrosis Left Kidney: 2.4cm cyst superior pole, 1.5cm stone inferior pole, 1.5cm stone superior pole Upper IVC: wnl Abd Aorta: wnl The pancreas is obscured. The liver is normal in size without biliary dilatation. The gallbladder is been removed. The distal common hepatic duct measures 7 mm. The spleen is normal in size. There is moderate right-sided hydronephrosis. There is a 2.4 cm, simple appearing left upper Pole emma al cyst. There is a nonobstructing 1.5 cm calculus in the lower pole. Visualized portions of aorta and IVC are normal. IMPRESSION: 1. RIGHT-SIDED HYDRONEPHROSIS. 2. LEFT RENAL CALCULUS. 3. LEFT RENAL CYST.
[2018-08-25] MEDS: SODIUM CHLORIDE 0.9% 1,000 ML IV SCH (14:48)
[2018-08-25] MEDS: FLUoxetine HCL 20 MG CAP PO SCH ×2 (14:55→20:22)
--- NOTE | 2018-08-25 16:00 | P.PN ---
Subjective Progress Note Date: 08/25/18 The patient is a 73 yo F with a PMH of CKD stage III, hypocalcemia, vitamin D deficiency, COPD, hypothyroidism, and severe bilateral lymphedema is admitted to the ED due to feeling fatigued and having episodes of syncope and unresponsiveness at home. In the ED she underwent an extensive evaluation. Laboratory analysis was consistent with partially treated urinary tract infection. Blood work revealed an elevated BUN of 63 and creatinine of 2.28. Head CT showed new focus of left front lobe white matter changes. Chest x-ray showed strandy atelectasis. EKG did not show any definitive changes. She was given a dose of Rocephin and IV fluids and was admitted to the medicine service. MRI brain was unremarkable. Echocardiogram revealed no significant valvular abnormalities and normal left ventricular systolic ejection fraction of 60-65%. Patient was seen and examined at the bedside on 08/25/2018. Patient reported no further episodes of dizziness or lightheadedness continues to feel weak and unable to ambulate independently. She further denied any episodes of unresponsiveness, loss of consciousness, fever, chills, nausea, vomiting, chest pain, shortness of breath, or headaches. Objective - Vital Signs Vital signs: Vital Signs Temp 98 F 08/25/18 15:00 Pulse 63 08/25/18 15:00 Resp 16 08/25/18 15:00 BP 96/65 08/25/18 15:00 Pulse Ox 98 08/25/18 15:00 Intake & Output 08/24/18 08/25/18 08/25/18 18:59 06:59 18:59 Intake Total 476 310 Balance 476 310 Intake: Intake, IV Titration 240 310 Amount Piperacillin-Tazobactam 3 100 .375 gm In Sodium Chloride 0.9% 100 ml @ 25 mls/hr IVPB Q12HR [facility] Rx #:[id number] Sodium Chloride 0.9% 1, 240 210 000 ml @ 60 mls/hr IV . [id number] [facility] Rx#:[id number] Oral 236 Other: Voiding Method Toilet Toilet # Voids 2 3 - Exam General: Non-toxic, in no acute distress, appears stated age, normal weight HEENT: NC/AT, anicteric sclerae, moist conjunctiva, no lid-lag, PERRLA Cardiovascular: S1/S2 wnl, no murmurs, rubs, or gallops Lungs: Clear to auscultation, normal respiratory effort, no accessory muscle use Abdominal: Soft, non-tender, non-distended, no guarding, rebound, or rigidity Skin: Warm, dry Extremities: No edema or contractures Psychiatric: Alert and oriented to person, place and time, appropriate affect Neuro: CN II-XII grossly intact, Strength 4/5 in all 4 extremities, Speech intact, Sensation to light touch grossly intact throughout - Labs CBC & Chem 7: 08/24/18 07:06 08/24/18 07:06 Labs: Abnormal Lab Results - Last 24 Hours (Table) 08/24/18 08/25/18 Range/Units 16:50 02:33 POC Glucose (mg/dL) 101 H 105 H (75-99) mg/dL Microbiology - Last 24 Hours (Table) 08/23/18 14:55 Urine Culture - Final Urine,Voided 08/23/18 17:15 Blood Culture - Preliminary Blood No Growth after 24 hours Assessment and Plan Plan: Episodes of unresponsiveness, syncope secondary to UTI vs seizures -EEG read pending, MRI unremarkable -Continue with neuro checks every 4 hourly -Echocardiogram unremarkable -A.m. cortisol levels within normal limits -TSH and free T4 within normal limits -Nephrology recommendations appreciated PRIYANKA on CKD stage III, improved -Nephrology consult appreciated -Follow-up BMP UTI -Continue with Zosyn due to ALLERGIES and resistance profile of outpatient urine culture studies showing Enterobacter COPD without exacerbation -Continue with bronchodilators Vitamin D deficiency and hypocalcemia -Continue supplementation Hyperphosphatemia -Nephrology recs appreciated Hypothyroidism -Continue with home meds Chronic hypoxic respiratory failure -Continue with oxygen supplementation DVT//GI prophylaxis -Heparin -No indication for GI prophylaxis Discussed with: Patient Anticipated discharge date: 08/27/[address]: Home A total of 35 minutes was spent on the care of this complex patient more than 50% of the time was spent in counseling and care coordination.
[2018-08-25 17:09] LABS: Glucose,Whole Blood 89 mg/dL (75-99)
[2018-08-25] MEDS: FAMOTIDINE 20 MG TAB PO SCH (20:22)
[2018-08-25] MEDS: FLUTICASONE 220 MCG INHALER INHALATION SCH (20:33)
[2018-08-25 20:39] LABS: Glucose,Whole Blood 98 mg/dL (75-99)
[2018-08-26 02:34] LABS: Glucose,Whole Blood 100 mg/dL (75-99)
[2018-08-26] MEDS: SODIUM CHLORIDE 0.9% 1,000 ML IV SCH ×2 (05:39→21:22)
[2018-08-26] MEDS: traMADol 50 MG TAB PO PRN (05:44)
[2018-08-26] MEDS ORDERED: LEVOTHYROXINE 112 MCG TAB PO SCH (06:30)
[2018-08-26 06:56] LABS: HCT 32.9 % (34.0-46.0); HGB 10.3 gm/dL (11.4-16.0); MCH 31.9 pg (25.0-35.0); MCHC 31.4 g/dL (31.0-37.0); MCV 101.6 fL (80.0-100.0); Mean Platelet Volume 6.6; Platelet Count 130 k/uL (150-450); RBC 3.24 m/uL (3.80-5.40); RDW 12.6 % (11.5-15.5); WBC 5.1 k/uL (3.8-10.6)
[2018-08-26 07:12] LABS: Calcium 8.2 mg/dL (8.4-10.2); Potassium 3.4 mmol/L (3.5-5.1)
[2018-08-26 07:31] LABS: Glucose,Whole Blood 95 mg/dL (75-99)
[2018-08-26] MEDS: SODIUM BICARBONATE TAB 650 MG TAB PO SCH ×3 (07:53→21:22)
[2018-08-26] MEDS: MIDODRINE 5 MG TAB PO SCH (07:53)
[2018-08-26] MEDS: MONTELUKAST 10 MG TAB PO SCH (07:53)
[2018-08-26] MEDS: CALCITRIOL 0.25 MCG CAP PO SCH ×3 (07:53→21:22)
[2018-08-26] MEDS: HEPARIN SODIUM,PORCINE 5,000 UNIT/ML 1 ML VIAL SQ SCH ×3 (07:53→23:45)
[2018-08-26] MEDS: LORATADINE 10 MG TAB PO SCH (07:54)
[2018-08-26] MEDS: PANTOPRAZOLE 40 MG TABLET PO SCH (07:54)
[2018-08-26] MEDS: PIPERACILLIN-TAZOBACTAM 3.375 GM in SODIUM CHLORIDE 0.9% 100 ML IVPB SCH ×2 (07:54→21:21)
[2018-08-26] MEDS: DOCUSATE 100 MG CAP PO SCH ×2 (07:54→21:21)
[2018-08-26] MEDS: metroNIDAZOLE 250 MG TABLET PO SCH (07:54)
[2018-08-26] MEDS: SYMBICORT 80-4.5 MCG INHALER INHALATION SCH ×2 (09:32→20:31)
[2018-08-26] MEDS: ALBUTEROL NEBULIZED 2.5 MG/3 ML INHALATION SCH ×3 (09:32→20:31)
--- NOTE | 2018-08-26 11:52 | P.PN ---
Subjective Progress Note Date: 08/26/18 Principal diagnosis: This is a 73-year-old female with chronic kidney disease who came in because of change in mental status and possible seizures. She was seen because of acute k idney injury deemed to be from volume depletion from diuretics. Off of diuretics creatinine is improved. She is feeling much better today compared to yesterday and denies any dizziness cough shortness of breath fever chills nausea vomiting diarrhea. She is able to walk. Denies any dizziness although blood pressure is somewhat low She does maintain that for the last 1 month she's been feeling very weak and tired and this is not her regular baseline. Workup has included a normal TSH at 3.5, slightly low free T3 at 2.1 free T4 is 3.06. Cortisol level is 17. Blood cultures and urine cultures are negative She is known with chronic kidney disease, history of pulmonary fibrosis, thyroid disease requiring iodine treatment, history of Graves' disease history of kidney stones. She is known with history of bariatric surgery and bladder and rectal suspension surgery and heart catheterization. Objective - Vital Signs Vital signs: Vital Signs Temp 97.7 F 08/26/18 08:04 Pulse 65 08/26/18 08:04 Resp 16 08/26/18 08:04 BP 96/60 08/26/18 08:04 Pulse Ox 99 08/26/18 08:04 Intake & Output 08/25/18 08/26/18 08/26/18 18:59 06:59 18:59 Intake Total 50 180 Balance 50 180 Intake: Intake, IV Titration 50 180 Amount Piperacillin-Tazobactam 3 50 .375 gm In Sodium Chloride 0.9% 100 ml @ 25 mls/hr IVPB Q12HR [facility] Rx #:[id number] Sodium Chloride 0.9% 1, 180 000 ml @ 60 mls/hr IV . [id number] [facility] Rx#:[id number] Other: # Voids 3 1 1 Currently on exam she is somewhat cachectic, awake alert cheerful HEENT exam no JVP neck is supple no facial asymmetry Lungs are clear to auscultation good air entry bilaterally Heart sounds are unremarkable for any murmur rub gallop Abdomen soft nontender no masses felt Extremity exam was no edema Neurologically awake alert oriented but generalized weakness. - Labs CBC & Chem 7: 08/26/18 06:18 08/26/18 06:18 Labs: Abnormal Lab Results - Last 24 Hours (Table) 08/26/18 08/26/18 08/26/18 Range/Units 02:23 06:18 06:18 RBC 3.24 L (3.80-5.40) m/uL Hgb 10.3 L (11.4-16.0) gm/dL Hct 32.9 L (34.0-46.0) % MCV 101.6 H (80.0-100.0) fL Plt Count 130 L (150-450) k/uL Potassium 3.4 L (3.5-5.1) mmol/L Chloride 112 H (98-107) mmol/L BUN 32 H (7-17) mg/dL Creatinine 1.88 H (0.52-1.04) mg/dL POC Glucose (mg/dL) 100 H (75-99) mg/dL Calcium 8.2 L (8.4-10.2) mg/dL Microbiology - Last 24 Hours (Table) 08/23/18 17:15 Blood Culture - Preliminary Blood No Growth after 48 hours Assessment and Plan Assessment: Impression 1. Acute kidney injury secondary to volume depletion from diuretics improved red and improved from 2.28-2.1, further to 1.8. 2. Mild degree of hypokalemia with potassium 3.4. She does have a few loose stools. She is on pantoprazole but her magnesium level is normal at 2.2 as of today's ago. Her bicarb level is 24 on sodium bicarb. This might add to her potassium bases 2. Chronic kidney disease Baseline creatinine about 1.4-1.8, urinalysis is benign except for 38 WBCs and 1 RBC. Protein negative, suspected chronic interstitial nephritis 3. Admitted with changes in mental status and possible seizures MRI negative. 4 chronic hypotension on Midrin blood. In the 90s to 100 range. 5. History of lymphedema currently minimal. 6. Chronic metabolic acidosis maintained in bicarb and bicarb is normal. 7. Supposedly she has history of hypocalcemia, on large doses of calcitriol. PTH has been chronically elevated, vitamin D 25-hydroxy levels are normal but vitamin D 1 25-hydroxy level not available. (Secondary hyperparathyroidism from low vitamin D 125 is a possibility. Transiently her calcium went up to 10.6, down to 9 day before yesterday , 8. Hyperparathyroidism since 2013, and her creatinine was 1.2 her PTH is 338 on 10/18/2013, possibly secondary from low vitamin D 125 level, previous workup includes vitamin D 25 levels but not 125 levels Plan. 1. Obtain vitamin D 1, 25-hydroxy level. 2. watch calcium. 3. Maintain Midrin 4. Needs further workup regarding her chronic fatigue for the last 1 month, which is known much better today
[2018-08-26 12:14] LABS: Glucose,Whole Blood 96 mg/dL (75-99)
[2018-08-26] MEDS ORDERED: POTASSIUM CHLORIDE ER 20 MEQ TAB.ER PO STA (14:26)
--- NOTE | 2018-08-26 14:28 | P.PN ---
Subjective Progress Note Date: 08/26/18 The patient is a 73 yo F with a PMH of CKD stage III, hypocalcemia, vitamin D deficiency, COPD, hypothyroidism, and severe bilateral lymphedema is admitted to the ED due to feeling fatigued and having episodes of syncope and unresponsiveness at home. In the ED she underwent an extensive evaluation. Laboratory analysis was consistent with partially treated urinary tract infection. Blood work revealed an elevated BUN of 63 and creatinine of 2.28. Head CT showed new focus of left front lobe white matter changes. Chest x-ray showed strandy atelectasis. EKG did not show any definitive changes. She was given a dose of Rocephin and IV fluids and was admitted to the medicine service. MRI brain was unremarkable. Echocardiogram revealed no significant valvular abnormalities and normal left ventricular systolic ejection fraction of 60-65%. Patient was seen and examined at the bedside on 08/26/2018. Patient reported no further episodes of dizziness or lightheadedness though continues to feel weak and unable to ambulate independently. She further denied any episodes of unresponsiveness, loss of consciousness, fever, chills, nausea, vomiting, chest pain, shortness of breath, or headaches. Objective - Vital Signs Vital signs: Vital Signs Temp 97.7 F 08/26/18 08:04 Pulse 65 08/26/18 08:04 Resp 16 08/26/18 08:04 BP 96/60 08/26/18 08:04 Pulse Ox 99 08/26/18 08:04 Intake & Output 08/25/18 08/26/18 08/26/18 18:59 06:59 18:59 Intake Total 50 180 Balance 50 180 Intake: Intake, IV Titration 50 180 Amount Piperacillin-Tazobactam 3 50 .375 gm In Sodium Chloride 0.9% 100 ml @ 25 mls/hr IVPB Q12HR [facility] Rx #:[id number] Sodium Chloride 0.9% 1, 180 000 ml @ 60 mls/hr IV . [id number] [facility] Rx#:[id number] Other: # Voids 3 1 1 - Exam General: Non-toxic, in no acute distress, appears stated age, normal weight HEENT: NC/AT, anicteric sclerae, moist conjunctiva, no lid-lag, PERRLA Cardiovascular: S1/S2 wnl, no murmurs, rubs, or gallops Lungs: Clear to auscultation, normal respiratory effort, no accessory muscle use Abdominal: Soft, non-tender, non-distended, no guarding, rebound, or rigidity Skin: Warm, dry Extremities: No edema or contractures Psychiatric: Alert and oriented to person, place and time, appropriate affect Neuro: CN II-XII grossly intact, Strength 4/5 in all 4 extremities, Speech intact, Sensation to light touch grossly intact throughout - Labs CBC & Chem 7: 08/26/18 06:18 08/26/18 06:18 Labs: Abnormal Lab Results - Last 24 Hours (Table) 08/26/18 08/26/18 08/26/18 Range/Units 02:23 06:18 06:18 RBC 3.24 L (3.80-5.40) m/uL Hgb 10.3 L (11.4-16.0) gm/dL Hct 32.9 L (34.0-46.0) % MCV 101.6 H (80.0-100.0) fL Plt Count 130 L (150-450) k/uL Potassium 3.4 L (3.5-5.1) mmol/L Chloride 112 H (98-107) mmol/L BUN 32 H (7-17) mg/dL Creatinine 1.88 H (0.52-1.04) mg/dL POC Glucose (mg/dL) 100 H (75-99) mg/dL Calcium 8.2 L (8.4-10.2) mg/dL Microbiology - Last 24 Hours (Table) 08/23/18 17:15 Blood Culture - Preliminary Blood No Growth after 48 hours Assessment and Plan Plan: Episodes of unresponsiveness, syncope secondary to UTI vs seizures -EEG read pending, MRI unremarkable -Continue with neuro checks every 4 hourly -Echocardiogram unremarkable -A.m. cortisol levels within normal limits -TSH and free T4 within normal limits -Nephrology recommendations appreciated -Likely will DC in am if EEG unremarkable with Home-PT PRIYANKA on CKD stage III, improved -Nephrology consult appreciated -Follow-up BMP UTI -Continue with Zosyn due to ALLERGIES and resistance profile of outpatient urine culture studies showing Enterobacter COPD without exacerbation -Continue with bronchodilators Vitamin D deficiency and hypocalcemia -Continue supplementation Hyperphosphatemia -Nephrology recs appreciated Hypothyroidism -Continue with home meds Chronic hypoxic respiratory failure -Continue with oxygen supplementation DVT//GI prophylaxis -Heparin -Protonix Discussed with: Patient Anticipated discharge date: 08/27/[address]: Home A total of 35 minutes was spent on the care of this complex patient more than 50% of the time was spent in counseling and care coordination.
[2018-08-26] MEDS: FLUoxetine HCL 20 MG CAP PO SCH ×2 (16:29→21:21)
[2018-08-26 17:13] LABS: Glucose,Whole Blood 97 mg/dL (75-99)
[2018-08-26 20:17] VITALS: RESP 17
[2018-08-26] MEDS: FLUTICASONE 220 MCG INHALER INHALATION SCH (20:42)
[2018-08-26 21:04] LABS: Glucose,Whole Blood 104 mg/dL (75-99)
[2018-08-26] MEDS: FAMOTIDINE 20 MG TAB PO SCH (21:21)
[2018-08-27 02:45] LABS: Glucose,Whole Blood 103 mg/dL (75-99)
--- NOTE | 2018-08-27 04:58 | EEG ---
ELECTROENCEPHALOGRAM REPORT DATE OF PROCEDURE: 08/24/2018. ELECTROENCEPHALOGRAM (EEG) REPORT: TECHNIQUE: A routine 18-channel EEG was performed with video using the 10-20 international electrode placement system. HISTORY: Seizure-like activity, urinary tract infection. CURRENT MEDICATIONS: 1. Ultram. 2. Piperacillin. 3. Zofran. 4. Narcan. 5. Singulair. 6. Protonix. STUDY DURATION: 23 minutes. FINDINGS: BACKGROUND: The background activity consists of 8-9 Hz rhythmic waveforms symmetrically distributed throughout both posterior quadrants. ACTIVATION: Hyperventilation: Not performed. Photic stimulation: Symmetric driving seen. Sleep: Drowsy. ABNORMALITIES: None. IMPRESSION: Normal EEG. No epileptiform activity was present. No seizures were recorded. MMODL / IJN: [id number] /
[2018-08-27] MEDS: SYMBICORT 80-4.5 MCG INHALER INHALATION SCH (05:58)
[2018-08-27] MEDS: ALBUTEROL NEBULIZED 2.5 MG/3 ML INHALATION SCH ×3 (05:58→15:07)
[2018-08-27] MEDS: LEVOTHYROXINE 112 MCG TAB PO SCH (06:19)
[2018-08-27 06:59] LABS: Glucose,Whole Blood 90 mg/dL (75-99)
[2018-08-27 07:45] VITALS: BP 116/70; PULSE 54; TEMP 97.7
[2018-08-27 07:50] LABS: Albumin 2.5 g/dL (3.5-5.0); Calcium 8.5 mg/dL (8.4-10.2); Potassium 4.1 mmol/L (3.5-5.1); Total Bilirubin 0.2 mg/dL (0.2-1.3); Total Protein 4.6 g/dL (6.3-8.2)
[2018-08-27 07:58] LABS: HCT 33.4 % (34.0-46.0); HGB 10.5 gm/dL (11.4-16.0); Hypochromasia Moderate; MCH 32.2 pg (25.0-35.0); MCHC 31.3 g/dL (31.0-37.0); Macrocytosis Slight; Mean Platelet Volume 7.9; Platelet Count 128 k/uL (150-450); RBC 3.25 m/uL (3.80-5.40); RDW 12.8 % (11.5-15.5); WBC 4.3 k/uL (3.8-10.6)
[2018-08-27] MEDS: PIPERACILLIN-TAZOBACTAM 3.375 GM in SODIUM CHLORIDE 0.9% 100 ML IVPB SCH (08:51)
[2018-08-27] MEDS: HEPARIN SODIUM,PORCINE 5,000 UNIT/ML 1 ML VIAL SQ SCH (08:51)
[2018-08-27] MEDS: DOCUSATE 100 MG CAP PO SCH (08:52)
[2018-08-27] MEDS: LORATADINE 10 MG TAB PO SCH (08:52)
[2018-08-27] MEDS: SODIUM BICARBONATE TAB 650 MG TAB PO SCH (08:52)
[2018-08-27] MEDS: CALCITRIOL 0.25 MCG CAP PO SCH (08:52)
[2018-08-27] MEDS: MIDODRINE 5 MG TAB PO SCH (08:52)
[2018-08-27] MEDS: PANTOPRAZOLE 40 MG TABLET PO SCH (08:52)
[2018-08-27] MEDS: MONTELUKAST 10 MG TAB PO SCH (08:52)
[2018-08-27] MEDS: ERGOCALCIFEROL 50,000 UNIT CAP PO SCH (08:53)
[2018-08-27] MEDS ORDERED: SULFAMETHOX-TMP 800-160MG 1 EACH TAB PO STA (11:07)
[2018-08-27] MEDS ORDERED: diphenhydrAMINE 25 MG CAP PO STA (11:08)
[2018-08-27 12:06] LABS: Glucose,Whole Blood 92 mg/dL (75-99)
--- NOTE | 2018-08-27 12:37 | P.PN ---
Subjective Patient is seen in follow-up for acute kidney injury on chronic kidney disease. Patient has chronic kidney disease stage III with baseline creatinine in the range of 1.7-1.9 secondary to interstitial nephritis. GFR is back to baseline. Currently resting in bed. She feels well overall. She is eager to go home. Vital signs are stable. General: The patient appeared well nourished and normally developed. HEENT: Head exam is unremarkable. Neck is without jugular venous distension. LUNGS: Lungs are clear to auscultation and percussion. Breath sounds decreased. HEART: Rate and Rhythm are regular. First and second heart sounds normal. No mur murs, rubs or gallops. ABDOMEN: Abdominal exam reveals normal bowel sounds. Non-tender and non-dist ended. No evidence of peritonitis. EXTREMITITES: No clubbing, cyanosis, or edema. Objective - Vital Signs Vital signs: Vital Signs Temp 97.7 F 08/27/18 07:10 Pulse 54 L 08/27/18 07:10 Resp 17 08/27/18 02:35 BP 116/70 08/27/18 07:10 Pulse Ox 99 08/27/18 07:10 Intake & Output 08/26/18 08/27/18 08/27/18 18:59 06:59 18:59 Intake Total 180 480 Balance 180 480 Intake: Intake, IV Titration 180 480 Amount Piperacillin-Tazobactam 3 100 .375 gm In Sodium Chloride 0.9% 100 ml @ 25 mls/hr IVPB Q12HR [facility] Rx #:[id number] Sodium Chloride 0.9% 1, 180 380 000 ml @ 60 mls/hr IV . [id number] [facility] Rx#:[id number] Other: Voiding Method Toilet Toilet # Voids 2 1 - Labs CBC & Chem 7: 08/27/18 07:07 08/27/18 07:07 Labs: Abnormal Lab Results - Last 24 Hours (Table) 08/26/18 08/27/18 08/27/18 Range/Units 20:51 02:34 07:07 RBC 3.25 L (3.80-5.40) m/uL Hgb 10.5 L (11.4-16.0) gm/dL Hct 33.4 L (34.0-46.0) % MCV 103.0 H (80.0-100.0) fL Plt Count 128 L (150-450) k/uL Chloride (98-107) mmol/L BUN (7-17) mg/dL Creatinine (0.52-1.04) mg/dL POC Glucose (mg/dL) 104 H 103 H (75-99) mg/dL Alkaline Phosphatase (38-126) U/L Total Protein (6.3-8.2) g/dL Albumin (3.5-5.0) g/dL 08/27/18 Range/Units 07:07 RBC (3.80-5.40) m/uL Hgb (11.4-16.0) gm/dL Hct (34.0-46.0) % MCV (80.0-100.0) fL Plt Count (150-450) k/uL Chloride 115 H (98-107) mmol/L BUN 24 H (7-17) mg/dL Creatinine 1.77 H (0.52-1.04) mg/dL POC Glucose (mg/dL) (75-99) mg/dL Alkaline Phosphatase 33 L (38-126) U/L Total Protein 4.6 L (6.3-8.2) g/dL Albumin 2.5 L (3.5-5.0) g/dL Microbiology - Last 24 Hours (Table) 08/23/18 17:15 Blood Culture - Preliminary Blood No Growth after 72 hours Assessment and Plan Plan: Assessment: 1. Acute kidney injury mostly prerenal secondary to diuresis. Creatinine 2.8 on admission and is 1.77 today. 2. Chronic kidney disease stage III with baseline creatinine in the range of 1.7-1.9 secondary to interstitial nephritis. No proteinuria on UA. 3. Intermittent episodes of unresponsiveness/staring/diaphoresis. Unclear etiology. ? Seizure. Questionable subacute lacunar injury noted on brain CT. She will be seeing neurology as an outpatient. 4. Metabolic acidosis secondary to chronic kidney disease maintained on oral sodium bicarbonate. 5. Chronic hypocalcemia maintained on daily calcium and calcitriol supplement. Calcium was slightly on the higher side on admission but has now normalized. 6. Hyperphosphatemia secondary to acute kidney injury. Monitor. Plan: Maintain gentle IV hydration. Stable to be discharged home from nephrology standpoint. Follow up outpatient in the next 2-3 weeks.
--- NOTE | 2018-08-27 13:43 | P.PN ---
Subjective Progress Note Date: 08/27/18 Principal diagnosis: Aggressive weakness and fatigue secondary to suspected urinary tract infection. This is a very pleasant 73-year-old female patient who follows with Dr. Kingston as her primary care physician. He has a history of hypothyroidism, depression, lymphedema, osteoporosis, nephrolithiasis. She has has a history of mild intermittent asthma, seasonal ALLERGIC rhinitis and has been seen by Dr. Alfredo in our office in the past. She is maintained on Singulair and albuterol. He presented here to the emergency room with complaints of increasing weakness and recent syncopal episodes that happened about 6 times since the beginning of the year. Computed tomography scan of the brain reveals no acute intracranial hemorrhage or midline shift. There is a new focus of left frontal subcortical white matter changing 07 with previous. Possible subacute lacunar injury versus chronic microangiopathy is within the differential. An MRI of the brain revealed age-related atrophic and chronic small vessel ischemic changes. No acute intracranial process. EEG is pending. Chest x-ray reveals strandy area of atelectasis but no acute pulmonary process. She is seen today in consultation on the regular medical floor. She is awake and alert in no acute distress at this time. She is maintaining O2 saturations in the 90s on room air. She's afebrile. Hemodynamically stable. Urinalysis with large leukocytes occasional bacteria and rare mucus. Culture pending. Influenza screen is negative. White count 4.9. Hemoglobin 11.6. Creatinine 2.15. She has been initiated on Zosyn. Symbicort, singular, albuterol. The patient is seen today 08/27/2018 in follow-up on the regular medical floor. She is currently awake and alert in no acute distress. No further seizure activity. No shortness of breath, cough or congestion. Her asthma has remained inactive and stable. She is maintaining good O2 saturations in the high 90s on room air. She's been afebrile. Hemodynamically stable. She remains on her Symbicort and the Singulair and albuterol. Objective - Vital Signs Vital signs: Vital Signs Temp 97.7 F 08/27/18 07:10 Pulse 54 L 08/27/18 07:10 Resp 17 08/27/18 02:35 BP 116/70 08/27/18 07:10 Pulse Ox 99 08/27/18 07:10 Intake & Output 08/26/18 08/27/18 08/27/18 18:59 06:59 18:59 Intake Total 180 480 Balance 180 480 Intake: Intake, IV Titration 180 480 Amount Piperacillin-Tazobactam 3 100 .375 gm In Sodium Chloride 0.9% 100 ml @ 25 mls/hr IVPB Q12HR [facility] Rx #:[id number] Sodium Chloride 0.9% 1, 180 380 000 ml @ 60 mls/hr IV . [id number] [facility] Rx#:[id number] Other: Voiding Method Toilet Toilet # Voids 2 1 - Exam GENERAL EXAM: Alert, active, comfortable in no apparent distress. On room air. HEAD: Normocephalic. EYES: Normal reaction of pupils, equal size. NOSE: Clear with pink turbinates. THROAT: No erythema or exudates. NECK: No masses, no JVD. CHEST: No chest wall deformity. LUNGS: Equal air entry with no crackles, wheeze, rhonchi or dullness. CVS: S1 and S2 normal with no audible murmur, regular rhythm. ABDOMEN: No hepatosplenomegaly, normal bowel sounds, no guarding or rigidity. SPINE: No scoliosis or deformity SKIN: No rashes CENTRAL NERVOUS SYSTEM: No focal deficits, tone is normal in all 4 extremities. EXTREMITIES: There is no peripheral edema. No clubbing, no cyanosis. Peripheral pulses are intact. - Labs CBC & Chem 7: 08/27/18 07:07 08/27/18 07:07 Labs: Abnormal Lab Results - Last 24 Hours (Table) 08/26/18 08/27/18 08/27/18 Range/Units 20:51 02:34 07:07 RBC 3.25 L (3.80-5.40) m/uL Hgb 10.5 L (11.4-16.0) gm/dL Hct 33.4 L (34.0-46.0) % MCV 103.0 H (80.0-100.0) fL Plt Count 128 L (150-450) k/uL Chloride (98-107) mmol/L BUN (7-17) mg/dL Creatinine (0.52-1.04) mg/dL POC Glucose (mg/dL) 104 H 103 H (75-99) mg/dL Alkaline Phosphatase (38-126) U/L Total Protein (6.3-8.2) g/dL Albumin (3.5-5.0) g/dL 08/27/18 Range/Units 07:07 RBC (3.80-5.40) m/uL Hgb (11.4-16.0) gm/dL Hct (34.0-46.0) % MCV (80.0-100.0) fL Plt Count (150-450) k/uL Chloride 115 H (98-107) mmol/L BUN 24 H (7-17) mg/dL Creatinine 1.77 H (0.52-1.04) mg/dL POC Glucose (mg/dL) (75-99) mg/dL Alkaline Phosphatase 33 L (38-126) U/L Total Protein 4.6 L (6.3-8.2) g/dL Albumin 2.5 L (3.5-5.0) g/dL Microbiology - Last 24 Hours (Table) 08/23/18 17:15 Blood Culture - Preliminary Blood No Growth after 72 hours Assessment and Plan Assessment: Impression: #1 Progressive weakness and fatigue secondary to suspected urinary tract infection. On Zosyn. #2 Episodes of possible seizures. MRI of the brain reveals no acute intracr anial process. #3 Chronic obstructive pulmonary disease, currently inactive and stable. No evidence of pneumonia. #4 Acute and chronic renal failure secondary to diuresis. Prerenal. #5 Chronic kidney disease, stage III. #6 History of Graves' disease hypothyroidism. #7 Osteoporosis. Tashia: The patient was seen and evaluated by Dr. Alfredo. She is currently stable from the pulmonary standpoint. We'll continue Symbicort, bronchodilators, Singulair. She will follow up with Dr. Alfredo in our office as scheduled. She is encouraged to call sooner with any pulmonary complaints. I, the cosigning physician, performed a history & physical examination of the patient. Lungs sounds are clear. Maintaining good O2 saturations in the 90s on room air. I discussed the assessment and plan of care with my nurse practitioner, Dione Bullock. I attest to the above note as dictated by her.
[2018-08-27] MEDS ORDERED: PIPERACILLIN-TAZOBACTAM 3.375 GM in SODIUM CHLORIDE 0.9% 100 ML IVPB SCH (16:00)
--- NOTE | 2018-08-27 17:52 | P.DS ---
Providers Date of admission: 08/23/18 16:53 Expected date of discharge: 08/27/18 Attending physician: Alma Sellers DO Consults: 08/23/18 18:21 Consult Physician Routine Consulting Provider: Abbey Wheeler Consult Reason/Comments: PRIYANKA on CKD IV Do you want consulting provider notified?: Yes 08/23/18 18:22 Consult Physician Routine Consulting Provider: Jacobo Alfredo Consult Reason/Comments: COPD, chronic respiratory failure Do you want consulting provider notified?: Yes Primary care physician: [facility] Hospital Course: The patient is a 73 yo F with a PMH of CKD stage III, hypocalcemia, vitamin D deficiency, COPD, hypothyroidism, and severe bilateral lymphedema is admitted to the ED due to feeling fatigued and having episodes of syncope and unresponsiveness at home. In the ED she underwent an extensive evaluation. Laboratory analysis was consistent with partially treated urinary tract infection. Blood work revealed an elevated BUN of 63 and creatinine of 2.28. Head CT showed new focus of left front lobe white matter changes. Chest x-ray showed strandy atelectasis. EKG did not show any definitive changes. She was given a dose of Rocephin and IV fluids and was admitted to the medicine service. MRI brain was unremarkable. Echocardiogram revealed no significant valvular abnormalities and normal left ventricular systolic ejection fraction of 60-65%. The patient was subsequently switched to Zosyn during the hospital stay. EEG revealed no abnormal activity. Discussed with the patient regarding her outpatient antibiotic options upon review of previous urine cultures showing Enterobacter. The patient reported that her sulfa ALLERGY is limited to mild itching which is usually controlled with concurrent Benadryl. She reported having taken Bactrim several times in the past with only itching. The patient was subsequently given a dose of Bactrim inpatient with Benadryl which she tolerated well. The patient was subsequently advised to continue with the Bactrim to complete a ten-day course of antibiotics for UTI. She was also given a close follow-up for neurology along with her PCP. Furthermore, the patient was noted to have right-sided hydronephrosis on abdominal ultrasound and was scheduled for an outpatient urology evaluation. She was seen and examined at the bedside on the day of discharge. She was in good spirits and reported no complaints. She noted that she had been walking to the restroom with some support and denied any additional episodes of dizziness, or confusion. She further denied fever, chills, chest pain, shortness of breath. Physical Examination General: Non-toxic, in no acute distress, appears stated age, normal weight HEENT: NC/AT, anicteric sclerae, moist conjunctiva, no lid-lag, PERRLA Cardiovascular: S1/S2 wnl, no murmurs, rubs, or gallops Lungs: Clear to auscultation, normal respiratory effort, no accessory muscle use Abdominal: Soft, non-tender, non-distended, no guarding, rebound, or rigidity Skin: Warm, dry Extremities: No edema or contractures Psychiatric: Alert and oriented to person, place and time, appropriate affect Neuro: CN II-XII grossly intact, Strength 4/5 in all 4 extremities, Speech intact, Sensation to light touch grossly intact throughout Discharge diagnosis: Episodes of unresponsiveness, syncope likely secondary to UTI; PRIYANKA on CT, resolved; UTI; COPD without exacerbation; vitamin D deficiency; hyperphosphatemia; hypothyroidism A total of 35 minutes of time were spent preparing this complex discharge summary. Pertinent Studies: As per HPI Procedures: As per HPI Patient Condition at Discharge: Good Plan - Discharge Summary Discharge Rx Participant: Yes New Discharge Prescriptions: New Sulfamethox-Tmp 800-160Mg [Bactrim DS 800-160 mg] 1 each PO DAILY 6 Days tab diphenhydrAMINE [Benadryl] 25 mg PO ONCE 6 Days cap Continue traMADol HCL [Ultram] 50 mg PO TID PRN PRN Reason: Pain Montelukast [Singulair] 10 mg PO DAILY Mometasone Inhalr 220 Mcg/Puff [Asmanex] 2 puff INHALATION RT-HS Loratadine [Alavert] 10 mg PO DAILY Albuterol Nebulized [Ventolin Nebulized] 2.5 mg INHALATION RT-TID methylPREDNISolone Dose Pack [Medrol Dose Pack] See Taper PO DIRECTED Ranitidine HCl 300 mg PO HS FLUoxetine HCL [PROzac] 20 mg PO BID@1400,2000 Docusate [Colace] 200 mg PO BID Sodium Bicarbonate Tab 650 mg PO TID Midodrine [ProAmatine] 5 mg PO DAILY Calcitriol 1 mcg PO TID Bumetanide [BUMEX] 1 mg PO DAILY Potassium Chloride ER [K-Dur 20] 40 meq PO TID Levothyroxine Sodium [Synthroid] 224 mcg PO MURO Levothyroxine Sodium [Synthroid] 112 mcg PO MOTUWETHFRSA Fluticasone/Salmeterol [Advair 250-50 Diskus] 1 puff INHALATION RT-BID Discontinued Albuterol Sulfate [Proair Hfa] 2 puff INHALATION RT-QID PRN PRN Reason: Shortness Of Breath Levofloxacin [Levaquin] 500 mg PO DAILY Omeprazole 40 mg PO DAILY Cranberry Clinical Strength 500mg 500 mg PO DAILY metroNIDAZOLE [Flagyl] 250 mg PO DAILY Ergocalciferol (Vitamin D2) [Vitamin D2] 50,000 unit PO MOWEFR Rising Mag64 W/Calcium 1 tab PO DAILY Discharge Medication List Albuterol Nebulized [Ventolin Nebulized] 2.5 mg INHALATION RT-TID 08/23/18 [History] Bumetanide [BUMEX] 1 mg PO DAILY 08/23/18 [History] Calcitriol 1 mcg PO TID 08/23/18 [History] Docusate [Colace] 200 mg PO BID 08/23/18 [History] FLUoxetine HCL [PROzac] 20 mg PO BID@1400,2000 08/23/18 [History] Fluticasone/Salmeterol [Advair 250-50 Diskus] 1 puff INHALATION RT-BID 08/23/18 [History] Levothyroxine Sodium [Synthroid] 112 mcg PO MOTUWETHFRSA 08/23/18 [History] Levothyroxine Sodium [Synthroid] 224 mcg PO MURO 08/23/18 [History] Loratadine [Alavert] 10 mg PO DAILY 08/23/18 [History] Midodrine [ProAmatine] 5 mg PO DAILY 08/23/18 [History] Mometasone Inhalr 220 Mcg/Puff [Asmanex] 2 puff INHALATION RT-HS 08/23/18 [History] Montelukast [Singulair] 10 mg PO DAILY 08/23/18 [History] Potassium Chloride ER [K-Dur 20] 40 meq PO TID 08/23/18 [History] Ranitidine HCl 300 mg PO HS 08/23/18 [History] Sodium Bicarbonate Tab 650 mg PO TID 08/23/18 [History] methylPREDNISolone Dose Pack [Medrol Dose Pack] See Taper PO DIRECTED 08/23/18 [History] traMADol HCL [Ultram] 50 mg PO TID PRN 08/23/18 [History] Sulfamethox-Tmp 800-160Mg [Bactrim DS 800-160 mg] 1 each PO DAILY 6 Days tab 08/27/18 [Rx] diphenhydrAMINE [Benadryl] 25 mg PO ONCE 6 Days cap 08/27/18 [Rx] Follow up Appointment(s)/Referral(s): Jacobo Alfredo MD [STAFF PHYSICIAN] - 09/10/18 2:30 pm [facility], [NON-STAFF] - Lio Bocanegra MD [STAFF PHYSICIAN] - 2 Weeks (Office will be in contact with patient to set up a follow up appointment) Bee Aldridge MD [Medical Doctor] - 08/29/18 11:00 am Terrence Kwan MD [Primary Care Provider] - 08/30/18 10:30 am Patient Instructions/Handouts: Urinary Tract Infection in Women (DC) Discharge Disposition: HOME SELF-CARE
[2018-08-27] MEDS ORDERED: FAMOTIDINE 20 MG TAB PO SCH (21:00)
== END 2018-08-27 15:38 | disposition home health service (06) | DRG 683 ==
LOC: EC 14:07 → 4SSUR 16:53
PROVIDERS: ADMIT Internal Medicine; ATTEND Internal Medicine
PROC: 05HA33Z Insertion of Infusion Device into Left Brachial Vein, Percutaneous Approach (ICD-10-PCS; principal; 2018-08-24 13:45)
DX: N17.9 Acute kidney failure, unspecified (principal); J96.11 Chronic respiratory failure with hypoxia; E87.2 Acidosis; J98.11 Atelectasis; N13.6 Pyonephrosis; N18.4 Chronic kidney disease, stage 4 (severe); I95.89 Other hypotension; J84.10 Pulmonary fibrosis, unspecified; J44.9 Chronic obstructive pulmonary disease, unspecified; Z99.81 Dependence on supplemental oxygen; E83.51 Hypocalcemia; E83.39 Other disorders of phosphorus metabolism; E86.0 Dehydration; M81.0 Age-related osteoporosis without current pathological fracture; E89.0 Postprocedural hypothyroidism; T50.2X5A Adverse effect of carbonic-anhydrase inhibitors, benzothiadiazides and other diuretics, initial encounter; F32.9 Major depressive disorder, single episode, unspecified; J45.20 Mild intermittent asthma, uncomplicated; J30.2 Other seasonal allergic rhinitis; N11.9 Chronic tubulo-interstitial nephritis, unspecified; I89.0 Lymphedema, not elsewhere classified; E87.6 Hypokalemia; I25.10 Atherosclerotic heart disease of native coronary artery without angina pectoris; Z79.890 Hormone replacement therapy; Z79.899 Other long term (current) drug therapy; Z90.710 Acquired absence of both cervix and uterus; Z98.84 Bariatric surgery status; Z90.49 Acquired absence of other specified parts of digestive tract; Z87.442 Personal history of urinary calculi; Z88.1 Allergy status to other antibiotic agents; Z88.5 Allergy status to narcotic agent; Z88.2 Allergy status to sulfonamides; Z91.048 Other nonmedicinal substance allergy status; Z82.49 Family history of ischemic heart disease and other diseases of the circulatory system; Z82.0 Family history of epilepsy and other diseases of the nervous system; Z82.62 Family history of osteoporosis; Z80.9 Family history of malignant neoplasm, unspecified; Z83.3 Family history of diabetes mellitus; Z83.79 Family history of other diseases of the digestive system
CPT/HCPCS: 36410; 36415; 70450; 70551; 71046; 76700; 76937; 80048; 80053; 81001; 82306; 82533; 82652; 83605; 83735; 83880; 84100; 84439; 84443; 84481; 84484; 85025; 85027; 85610; 85730; 87040; 87086; 87502; 93005; 93306; 94760; 95816; 96374; 99285

== ENCOUNTER → 2018-09-19 | Outpatient (CLI) | payer MEDICARE | DX: E55.9 Vitamin D deficiency, unspecified (principal); N39.0 Urinary tract infection, site not specified; M10.9 Gout, unspecified; D63.1 Anemia in chronic kidney disease; N18.4 Chronic kidney disease, stage 4 (severe); E89.0 Postprocedural hypothyroidism; R80.9 Proteinuria, unspecified ==

== ENCOUNTER → 2018-10-05 | Outpatient (CLI) | payer MEDICARE ==
--- NOTE | 2018-10-05 11:40 | XR ---
EXAMINATION TYPE: XR KUB DATE OF EXAM: 10/05/2018 HISTORY: Pain Comparison: None.Single KUB is submitted for interpretation. Findings: Right renal calculi: None Visualized. Right ureteral calculi: None Visualized. Left renal calculi: 2 large left renal calculi are noted. Largest calculus is identified overlying t he region of the left renal pelvis and measures 2.5 x 1.7 cm. Upper pole calculus measures 1.6 0.8 cm . Left ureteral calculi: None Visualized. Pelvic calcifications: None Visualized. Bowel gas pattern is unremarkable. No free air. No mass effects. IMPRESSION: 1. 2 large left renal calculi are noted. Largest calculus is identified overlying the region of the l eft renal pelvis and measures 2.5 x 1.7 cm. Upper pole calculus measures 1.6 0.8 cm.
== END ==
LOC: RADXRMAIN 11:09
PROVIDERS: ATTEND Urology
DX: N20.0 Calculus of kidney (principal)
CPT/HCPCS: 74018

== ENCOUNTER → 2018-11-14 | Outpatient (CLI) | payer MEDICARE ==
[2018-11-14 15:09] LABS: Albumin 3.8 g/dL (3.5-5.0); Calcium 11.2 mg/dL (8.4-10.2); Potassium 5.4 mmol/L (3.5-5.1); Total Bilirubin 0.3 mg/dL (0.2-1.3); Total Protein 6.4 g/dL (6.3-8.2)
[2018-11-14 15:31] LABS: Appearance,Urine Cloudy (Clear); Bacteria,Urine Few /hpf; Bilirubin,Urine Negative (Negative); Blood,Urine Negative (Negative); Color,Urine Light Yellow; Glucose,Urine (UA) Negative (Negative); Ketones,Urine Negative (Negative); Leukocyte Esterase,Urine Large (Negative); Mucus,Urine Rare /hpf; Nitrite,Urine Negative (Negative); Protein,Urine Negative (Negative); RBC,Urine 4 /hpf (0-5); Specific Gravity,Urine 1.011 (1.001-1.035); Squamous Epithelial Cell,Urine <1 /hpf (0-4); Urobilinogen,Urine <2.0 mg/dL (<2.0); WBC,Urine 86 /hpf (0-5)
[2018-11-14 15:33] LABS: Basophils # (A) 0.1 k/uL (0-0.2); Basophils % (A) 1 %; Eosinophils # (A) 0.4 k/uL (0-0.7); Eosinophils % (A) 6 %; HCT 37.4 % (34.0-46.0); HGB 11.6 gm/dL (11.4-16.0); Lymphocytes # (A) 1.8 k/uL (1.0-4.8); Lymphocytes % (A) 28 %; MCH 30.9 pg (25.0-35.0); MCHC 31.1 g/dL (31.0-37.0); MCV 99.5 fL (80.0-100.0); Mean Platelet Volume 6.8; Monocytes # (A) 0.4 k/uL (0-1.0); Monocytes % (A) 6 %; Neutrophils # (A) 3.6 k/uL (1.3-7.7); Neutrophils % (A) 56 %; Platelet Count 240 k/uL (150-450); RBC 3.76 m/uL (3.80-5.40); RDW 12.5 % (11.5-15.5); WBC 6.3 k/uL (3.8-10.6)
== END | disposition home or self-care (01) ==
LOC: LABWHC1 14:27
PROVIDERS: ATTEND Urology
DX: Z01.812 Encounter for preprocedural laboratory examination (principal); N20.0 Calculus of kidney; N39.0 Urinary tract infection, site not specified
CPT/HCPCS: 36415; 80053; 81001; 85025; 86850; 86900; 86901; 87077; 87086; 87186

== ENCOUNTER → 2018-11-14 | Outpatient (CLI) | payer MEDICARE ==
--- NOTE | 2018-11-14 13:58 | XR ---
EXAMINATION TYPE: XR chest 2V DATE OF EXAM: 11/14/2018 COMPARISON: 08/23/2018 HISTORY: Presurgical testing TECHNIQUE: Frontal and lateral views of the chest are obtained. FINDINGS: Pulmonary hyperinflation is seen compatible with underlying COPD. There is also biapical l ucency present. Numerous surgical clips are seen in the upper abdomen. There is tortuosity of the tho racic aorta. Cardiomediastinal silhouette is nonenlarged. Chronic linear atelectasis is seen within t he right middle lobe. Surgical sutures are present of the right lung base. Mild diffuse osseous demin eralization and mild degenerative changes of the spine are also seen. IMPRESSION: No acute cardiopulmonary process. Underlying emphysema and surgical change of the right lung.
--- NOTE | 2018-11-14 14:05 | XR ---
EXAMINATION TYPE: XR KUB DATE OF EXAM: 11/14/2018 COMPARISON: 10/05/2018 HISTORY: Surgical testing. History of nephrolithiasis. TECHNIQUE: Single upright view of the abdomen. FINDINGS: Left renal calculi are again seen measuring 2.4 cm and 1.6 cm. No discrete right renal calc juanis are present. Surgical sutures are seen in the right upper quadrant and left upper quadrant with n umerous surgical clips throughout the abdomen. Dense of atherosclerosis is seen within the pelvis. Th ere is dextroscoliosis of the lumbar spine and levoscoliosis of the visualized thoracic spine. Diffus e osseous demineralization is also seen. IMPRESSION: Two stable large left renal calculi.
--- NOTE | 2018-11-14 15:34 | CT ---
EXAMINATION TYPE: CT abdomen pelvis wo con DATE OF EXAM: 11/14/2018 COMPARISON: KUB 11/14/2018 HISTORY: Renal stone CT DLP: 518 mGycm Automated exposure control for dose reduction was used. TECHNIQUE: Helical acquisition of images from the lung bases through the pelvis. FINDINGS: Lack of contrast could compromise sensitivity. LUNG BASES: No significant abnormality is appreciated. AORTA: No significant abnormality is appreciated, atheromatous changes present within the aorta. LIVER/GB: No significant abnormality is appreciated within the liver, patient is post cholecystectomy . PANCREAS: No significant abnormality is seen. SPLEEN: No significant abnormality is seen. ADRENALS: No significant abnormality is seen. KIDNEYS: There is prominence of the right renal collecting system possibly due to ureteropelvic junct ion stenosis. 3 mm calcification is present at the upper pole which is nonobstructive medially. The l eft kidney shows a partial staghorn calculus extending to the renal pelvis measuring approximately 2. 1 cm x 1.6 cm x 2 cm. Additionally at the upper pole there is a calculus measuring approximately 15 m m to 16 in greatest dimension. No significant hydronephrosis. REPRODUCTIVE ORGANS: Not seen URINARY BLADDER: No significant abnormality is seen. BOWEL: Multiple areas of postop change are present, there are surgical theresa present along the sto mach, there are surgical clips in the left upper quadrant towards the splenic hilum about the stomach , surgical sutures are present within the bowel in the midline with some areas of relative dilation o f bowel likely postoperative,, postop changes are noted in the upper abdomen and pelvis. FREE AIR: No Free Air is visible. ASCITES: None visible. PELVIC ADENOPATHY: None visualized. RETROPERITONEAL ADENOPATHY: No Retroperitoneal Adenopathy visible. OSSEOUS STRUCTURES: There is a spinal curvature. Degenerative disc changes, facet arthropathy noted in the visualized spine. IMPRESSION: BILATERAL NEPHROLITHIASIS DESCRIBED. Additional findings above, noncontrast exam. Postop changes.
== END ==
LOC: RADCTMAIN 13:28
PROVIDERS: ATTEND Urology
DX: Z01.818 Encounter for other preprocedural examination (principal); N20.0 Calculus of kidney; J43.9 Emphysema, unspecified; N39.0 Urinary tract infection, site not specified; Z88.1 Allergy status to other antibiotic agents; Z88.2 Allergy status to sulfonamides; Z88.5 Allergy status to narcotic agent; Z01.812 Encounter for preprocedural laboratory examination; Z98.890 Other specified postprocedural states
CPT/HCPCS: 36415; 71046; 74018; 74176; 80053; 81001; 85025; 86850; 86900; 86901; 87086

== ENCOUNTER 2018-11-21 09:19 | Inpatient (IN) | payer MEDICARE ==
[2018-11-19 15:00] VITALS: BMI 21.1
--- NOTE | 2018-11-20 20:01 | P.GSHP ---
History of Present Illness H&P Date: 11/20/18 73 yo female with recurrent enterobacter utis and two large left renal stones that are probably infected. She comes for a left pcnl to remove the infected stones. The risk complications and alternatives have been discussed. - Constitutional Constitutional: Reports fever - Genitourinary (Female) Genitourinary: Reports as per HPI - Neurological Neurological: Reports seizures Past Medical History Past Medical History: COPD, Osteoarthritis (OA), Renal Disease, Thyroid Disorder Additional Past Medical History / Comment(s): current kidney stones and UTI,steroid injection October 2018 hx lymphedema, hx pulmonary fibrosis, hx graves,hx rt foot torn ligaments,hx kidney stones, hx osteoporosis,hypotension, chronic respiratory failure on 2 L nasal cannula at night & prn, vitamine D deficiency, hypocalcemia History of Any Multi-Drug Resistant Organisms: CRE Date of last positivie culture/infection: 10/16/18 Enterobacter intermedium CRE (per [facility] negative for KPC or other) MDRO Source:: Urine Past Surgical History: Adenoidectomy, Bariatric Surgery, Cholecystectomy, Heart Catheterization, Hernia Repair, Hysterectomy, Tonsillectomy, Tubal Ligation Additional Past Surgical History / Comment(s): hx bariatric surgery-Kye En Y,lung biopsy,radioactive iodine-tx thyroid,rectal and bladder suspensions,vaginal surgery as a child,partha carpel tunnel,rt knee meniscus repair,D&C x3 Past Anesthesia/Blood Transfusion Reactions: Previous Problems w/ Anesthesia, Postoperative Nausea & Vomiting (PONV) Additional Past Anesthesia/Blood Transfusion Reaction / Comment(s): decrease bp with anesthesia,no problems with prior blood transfusion Past Psychological History: No Psychological Hx Reported Smoking Status: Never smoker Past Alcohol Use History: None Reported Past Drug Use History: None Reported - Past Family History Father Family Medical History: Coronary Artery Disease (CAD) Additional Family Medical History / Comment(s): hx alzheimers, lung disease, malaria Mother Family Medical History: Cancer Additional Family Medical History / Comment(s): arthritis/osteoporosis Sister(s) Additional Family Medical History / Comment(s): myasthenia gravis/ iddm/ crohns Daughter(s) Additional Family Medical History / Comment(s): lymphedema in legs Medications and Allergies Home Medications Medication Instructions Recorded Confirmed Type Albuterol Nebulized [Ventolin 2.5 mg INHALATION RT-TID PRN 08/23/18 11/19/18 History Nebulized] Bumetanide [BUMEX] 1 mg PO DAILY 08/23/18 11/19/18 History Calcitriol 1 mcg PO TID 08/23/18 11/19/18 History Docusate [Colace] 200 mg PO BID 08/23/18 11/19/18 History FLUoxetine HCL [PROzac] 20 mg PO BID@1400,199908/23/18 11/19/18 History Fluticasone/Salmeterol [Advair 1 puff INHALATION RT-BID PRN 08/23/18 11/19/18 History 250-50 Diskus] Levothyroxine Sodium [Synthroid] 112 mcg PO MOTUWETHFRSA 08/23/18 11/19/18 History Levothyroxine Sodium [Synthroid] 224 mcg PO MURO 08/23/18 11/19/18 History Loratadine [Alavert] 10 mg PO DAILY 08/23/18 11/19/18 History Midodrine [ProAmatine] 5 mg PO 139908/23/18 11/19/18 History Mometasone Inhalr 220 Mcg/Puff 2 puff INHALATION RT-HS PRN 08/23/18 11/19/18 History [Asmanex] Montelukast [Singulair] 10 mg PO HS 08/23/18 11/19/18 History Potassium Chloride ER [K-Dur 20] 40 meq PO TID 08/23/18 11/19/18 History Ranitidine HCl 300 mg PO HS 08/23/18 11/19/18 History Sodium Bicarbonate Tab 650 mg PO TID 08/23/18 11/19/18 History traMADol HCL [Ultram] 50 mg PO TID PRN 08/23/18 11/19/18 History Amoxicillin 500 mg PO TID 11/19/18 11/19/18 History Cranberry Fruit Extract [Cranberry] 500 mg PO DAILY 11/19/18 11/19/18 History Ergocalciferol (Vitamin D2) 50,000 unit PO MOWEFR 11/19/18 11/19/18 History [Drisdol] Midodrine [ProAmatine] 2.5 mg PO 199911/19/18 11/19/18 History Omeprazole 40 mg PO 139911/19/18 11/19/18 History Rising Mg64 W/Ca 1 tab PO DAILY 11/19/18 11/19/18 History diphenhydrAMINE [Benadryl] 25 mg PO ONCE PRN 11/19/18 11/19/18 History metroNIDAZOLE [Flagyl] 250 mg PO DAILY 11/19/18 11/19/18 History Allergies Allergy/AdvReac Type Severity Reaction Status Date / Time adhesive tape Allergy Rash/Hives Verified 11/19/18 14:29 Sulfa (Sulfonamide Allergy Itching Verified 11/19/18 14:29 Antibiotics) tetracycline Allergy Nausea & Verified 11/19/18 14:29 Vomiting codeine AdvReac Nausea Verified 11/19/18 14:29 Surgical - Exam - General well developed, well nourished, no distress - Eyes PERRL - ENT no hearing loss - Neck trachea midline - Respiratory normal expansion, normal respiratory effort - Cardiovascular Rhythm: regular - Abdomen Abdomen: soft, non tender - Integumentary no rash, no growths - Neurologic normal coordination, normal sensation - Musculoskeletal normal gait, normal posture - Psychiatric oriented to time, oriented to person, oriented to place, speech is normal, memory intact Results - Imaging CT scan - abdomen: report reviewed, image reviewed CT scan - pelvis: report reviewed, image reviewed US - abdomen: report reviewed Assessment and Plan Assessment: Impression: Left renal stones, large, infected. Plan. PCNL left
[~2018-11-21 09:19] MED LIST: GENTAMICIN 80 MG in SODIUM CHLORIDE 0.9% 100 ML IVPB ONE; LIDOCAINE 1% 20 ML VIAL (10MG/ML) FOR IV START INTRADERMA PRN; ONDANSETRON 4 MG/2 ML VIAL IVP ONE
--- NOTE | 2018-11-21 09:53 | XR ---
EXAMINATION TYPE: XR KUB DATE OF EXAM: 11/21/2018 COMPARISON: 11/14/2018 HISTORY: Renal stone TECHNIQUE: One view abdominal series FINDINGS: The osseous structures are intact. The bowel gas pattern is nonspecific. Left kidney: There are 2 calcifications measuring 1.6 cm in the upper pole and 2.4 cm in the lower po le. There is stable. Right kidney: No suspicious calcifications. Scoliosis with degenerative change the spine arthropathy of the hips. Vascular calcifications noted a re surgical clips in the abdomen.. Sclerosis involving the right SI joint noted appears chronic. Arth ropathy of the hips. IMPRESSION: 1. Nonspecific abdomen. There are 2 stable left-sided renal calculi.
[2018-11-21] MEDS: LACTATED RINGERS 1,000 ML IV SCH (10:23)
[2018-11-21] MEDS ORDERED: ROCURONIUM BROMIDE 10 MG/ML 10 ML VIAL IV ONE (10:49)
[2018-11-21] MEDS ORDERED: HYDROmorphone (PF) 1 MG/ML ONE (10:49)
[2018-11-21] MEDS ORDERED: NEOSTIGMINE 1 MG/ML 10 ML VIAL ONE (10:49)
[2018-11-21] MEDS ORDERED: PROPOFOL 10 MG/ML 20 ML VIAL IV ONE (10:49)
[2018-11-21] MEDS ORDERED: PHENYLEPHRINE-0.9% NACL SYG 1 MG/10 ML SYRINGE ONE (10:49)
[2018-11-21] MEDS ORDERED: GLYCOPYRROLATE 0.2 MG/ML 2 ML VIAL ONE (10:49)
[2018-11-21] MEDS ORDERED: SUCCINYLCHOLINE CHLORIDE 100 MG/5 ML SYR IV ONE (10:49)
[2018-11-21] MEDS ORDERED: MIDAZOLAM 2 MG/2 ML VIAL ONE (10:49)
[2018-11-21] MEDS ORDERED: fentaNYL (PF) 50 MCG/ML 2 ML AMP ONE (10:49)
[2018-11-21] MEDS ORDERED: IOHEXOL 350 MG/ML (PER ML) 100ML BTL MISCELLANE ONE (11:28)
[2018-11-21] MEDS ORDERED: LACTATED RINGERS 1,000 ML IV ONE ×2 (12:29→12:30)
[2018-11-21] MEDS ORDERED: ALBUTEROL NEBULIZED 2.5 MG/3 ML INHALATION PRN (13:29)
[2018-11-21] MEDS ORDERED: SYMBICORT 80-4.5 MCG INHALER INHALATION PRN (13:29)
[2018-11-21] MEDS ORDERED: FLUTICASONE 220 MCG INHALER INHALATION PRN (13:29)
[2018-11-21] MEDS ORDERED: MAG HYDROX/AL HYDROX/SIMETH 30 ML CUP PO PRN (13:31)
[2018-11-21] MEDS ORDERED: ACETAMINOPHEN TAB 325 MG TAB PO PRN (13:31)
[2018-11-21] MEDS ORDERED: ONDANSETRON 4 MG/2 ML VIAL IVP PRN (13:31)
[2018-11-21] MEDS ORDERED: NALOXONE 0.4 MG/ML 1 ML VIAL IV PRN (13:33)
[2018-11-21] MEDS ORDERED: HYDROMORPHONE (PF) 10 MG in SODIUM CHLORIDE 0.9% 49 ML, PCA BAG 1 BAG IV PRN (13:33)
--- NOTE | 2018-11-21 13:40 | P.OP ---
Date of Procedure: 11/21/18 Preoperative Diagnosis: Left renal calculi large, infected Postoperative Diagnosis: Same Procedure(s) Performed: Cystoscopy, placement of left ureteral catheter, percutaneous nephrostomy (Dr. Welch 2) percutaneous nephrostolithotomy with ultrasound and laser, placement of 10 J nephrostomy Anesthesia: HOWARD Surgeon: Orville Hennessy Estimated Blood Loss (ml): 100 Pathology: other (Stone) Condition: stable Disposition: PACU Indications for Procedure: The patient is 73. She has had recurrent Enterobacter urinary tract infections. She has 2 large stones in her left kidney one in the upper pole and a calyceal diverticulum and one in the lower pole over 2 cm. She comes for percutaneous nephrostolithotomy left. She understands she may need to nephrostomy tubes Description of Procedure: The patient is brought to the operating suite. On the transport gurney she's given a general endotracheal anesthesia. She's placed in a frog position with sterile prep and drape. Cystoscopy 22-Cuban sheath and Foroblique lens identifies a normal urethra. The left ureteral orifice is identified and intubated with a 5-Cuban occluding balloon up to the renal pelvis. There is chronic cystitis in the bladder. The patient's placed in prone position with care to airways and extremities. Dr. Welch of radiology performed percutaneous access to the left lower pole calyx. We then dilate the tract to 30-Cuban. Using ultrasound break the stone into smaller fragments in either suction or pull the fragments out. I looked throughout the collecting system and eventually get into the upper pole collecting system. It is somewhat of a bifid pelvis. I see the scarred infundibulum and ostium of the calyceal diverticula. There is a very tiny tip of stone emanating. I attempted to laser open the infundibula which I do the stone was too big and too hard and the angle was too acute to get adequate adequately with the flexible scope. Dr. Welch reenters the suite and performed percutaneous access to this upper pole calyceal diverticula. We dilate the tr act to 30-Cuban break the stone up into smaller pieces with ultrasound and remove the fragments. At the end of the procedure the collecting system is endoscoped fluoroscope there no remaining stones. A 10 J nephrostomy tube to the upper track incision is placed into the renal pelvis. It is secured to the skin. The lower pole nephrostomy track is closed with 2-0 silk. Blood loss is 100 mL the patient awake and returned recovery room in good condition. She tolerated procedure well be placed in the hospital postoperatively.
[2018-11-21] MEDS: HYDROmorphone 0.5 MG/0.5 ML SYRINGE IVP PRN ×2 (14:04→14:12)
[2018-11-21] MEDS: MIDODRINE 5 MG TAB PO SCH ×2 (15:18→22:07)
[2018-11-21] MEDS: DEXTROSE 5%-0.45% NACL 1,000 ML IV SCH (15:18)
[2018-11-21] MEDS: PANTOPRAZOLE 40 MG TABLET PO SCH (15:18)
[2018-11-21] MEDS: SODIUM BICARBONATE TAB 650 MG TAB PO SCH ×2 (15:19→22:07)
[2018-11-21] MEDS: FLUoxetine HCL 20 MG CAP PO SCH ×2 (15:19→22:06)
[2018-11-21] MEDS: POTASSIUM CHLORIDE ER 20 MEQ TAB.ER PO SCH ×2 (15:19→22:07)
[2018-11-21] MEDS: AMOXICILLIN 500 MG CAP PO SCH ×2 (15:26→22:07)
--- NOTE | 2018-11-21 15:52 | FL ---
EXAMINATION TYPE: FL Perc Nephrostomy New Access, FL Perc Nephrostomy New Access DATE OF EXAM: 11/21/2018 COMPARISON: CT 11/14/2018, KUB 11/21/2018 HISTORY: Hydronephrosis, ureteral obstruction with staghorn calculus. PROCEDURE: Maximal barrier technique was utilized. The skin overlying the left kidney was localized using fluor oscopy and the overlying skin prepped and draped. Lidocaine used for local anesthesia. Skin cary wa s made with a scalpel. Access was gained under fluoroscopy, following placement of a ureteral occlus ion balloon by the referring clinician and instillation of air in the renal collecting system with a 21-gauge needle to the lower pole left kidney. A suitable posterior calyx was chosen. A 0.018 inch wire was advanced. The access site was dilated and subsequently a sheath was advanced into the yimi l pelvis following dilation with balloon along the tract. Urine returned in the hub of the catheter. The patient underwent nephrolithotomy by the referring clinician. The patient remained in stable co ndition without complication. Following removal of the lower pole calculus was called back to the operating room for new percutaneo us access in the upper pole of the same kidney. Using similar technique, skin cary was made with a sc alpel and a 21-gauge needle was advanced onto the upper pole calculus. 0.018 inch wire was advanced. Access site was not adequate and repunctured was performed. Wire was negotiated into the upper pole r enal calyx. Access site was subsequently dilated with a transitional dilator over a 0.018 inch wire w hich was upsized to a 0.035 inch angled Glidewire and the wire was associated into the ureter with a 5 Guinean Kumpe catheter and subsequently Amplatz superstiff wire was deployed. Access site was dilate d following association of the balloon across the upper pole of the left kidney. Sheath was advanced and subsequently nephrolithotomy was performed. Patient was discharged to the care of anesthesia. 31 minutes 45 seconds fluoroscopy time was utilized. Single intraoperative image documents the proced ure. IMPRESSION: STATUS POST NEPHROSTOMY PLACEMENT FOR NEPHROLITHOTOMY PERFORMED IN BOTH UPPER AND LOWER POLES OF THE LEFT KIDNEY WITH FLUOROSCOPIC GUIDANCE. THIS PROCEDURE PERFORMED BY THE UNDERSIGNED.
[2018-11-21] MEDS: MONTELUKAST 10 MG TAB PO SCH (22:07)
[2018-11-21] MEDS: DOCUSATE 100 MG CAP PO SCH (22:07)
[2018-11-22] MEDS: DEXTROSE 5%-0.45% NACL 1,000 ML IV SCH ×3 (03:04→17:17)
[2018-11-22] MEDS: LACTATED RINGERS 1,000 ML IV SCH (06:16)
[2018-11-22] MEDS: LEVOTHYROXINE 112 MCG TAB PO SCH (06:50)
--- NOTE | 2018-11-22 06:51 | P.PN ---
Subjective Progress Note Date: 11/22/18 The patient is in her first day from a left percutaneous nephrostolithotomy due to infected large left renal calculi. She did well overnight. She has been on culture specific antibiotics. She is having some loose stool so I switch her to IV antibiotic. Her blood pressures run a little low which is normal for her however probably affected by the infected stones in the manipulation. I will continue supportive care with IV fluids IV antibiotics. We will continue with the Casas and the IV fluids. Objective - Vital Signs Vital signs: Vital Signs Temp 98.1 F 11/22/18 02:35 Pulse 68 11/22/18 02:35 Resp 17 11/22/18 02:35 BP 84/49 11/22/18 02:35 Pulse Ox 94 L 11/22/18 02:35 Intake & Output 11/21/18 11/21/18 11/22/18 06:59 18:59 06:59 Intake Total 1752 Output Total 500 490 Balance 1252 -490 Intake: IV 1752 Output: Drainage 140 Left flank 140 Urine 400 350 Estimated Blood Loss 100 Other: Voiding Method Indwelling Catheter Indwelling Catheter # Bowel Movements 1 - Labs CBC & Chem 7: 11/21/18 10:23
[2018-11-22] MEDS: SODIUM BICARBONATE TAB 650 MG TAB PO SCH ×3 (08:34→21:55)
[2018-11-22] MEDS: metroNIDAZOLE 250 MG TABLET PO SCH (08:34)
[2018-11-22] MEDS: LORATADINE 10 MG TAB PO SCH (08:34)
[2018-11-22] MEDS: POTASSIUM CHLORIDE ER 20 MEQ TAB.ER PO SCH ×3 (08:34→21:55)
[2018-11-22] MEDS: BUMETANIDE 1 MG TAB PO SCH (08:34)
[2018-11-22] MEDS: DOCUSATE 100 MG CAP PO SCH ×2 (08:35→20:53)
[2018-11-22] MEDS: AMPICILLIN 1,000 MG in SODIUM CHLORIDE 0.9% 50 ML IVPB SCH ×3 (11:36→23:45)
[2018-11-22] MEDS: MIDODRINE 5 MG TAB PO SCH ×2 (13:35→20:51)
[2018-11-22] MEDS: PANTOPRAZOLE 40 MG TABLET PO SCH (13:35)
[2018-11-22] MEDS: FLUoxetine HCL 20 MG CAP PO SCH ×2 (13:35→20:53)
[2018-11-22] MEDS: MONTELUKAST 10 MG TAB PO SCH (20:51)
[2018-11-23] MEDS: DEXTROSE 5%-0.45% NACL 1,000 ML IV SCH ×2 (04:24→19:57)
[2018-11-23] MEDS: AMPICILLIN 1,000 MG in SODIUM CHLORIDE 0.9% 50 ML IVPB SCH ×4 (06:51→23:08)
[2018-11-23] MEDS: LEVOTHYROXINE 112 MCG TAB PO SCH (06:52)
--- NOTE | 2018-11-23 07:40 | P.PN ---
Subjective Progress Note Date: 11/23/18 The patient is in her second postoperative day from a left percutaneous nephrostolithotomy. She is still having a moderate amount of pain. I suspect this is due to chronic pain as well as acute pain from the nephrostomy tube of the 12th rib. Her urine output is good. Her vital signs are stable. She runs a low blood pressure between 80 and 90 at home and it remains that way here in the hospital. I will discontinue her Casas. I will.stop her [employer] and place on her tramadol. She'll go to regular diet ambulate. Hopefully she'll be discharged home this weekend. I will obtain a CBC today. Objective - Vital Signs Vital signs: Vital Signs Temp 97.6 F 11/23/18 06:55 Pulse 82 11/23/18 00:50 Resp 16 11/23/18 06:55 BP 83/53 11/23/18 06:55 Pulse Ox 100 11/23/18 07:38 Intake & Output 11/22/18 11/23/18 11/23/18 18:59 06:59 18:59 Intake Total 1390 Output Total 45 700 Balance 1345 -700 Intake: IV 850 Ampicillin 1,000 mg In 50 Sodium Chloride 0.9% 50 ml @ 100 mls/hr IVPB Q6HR [facility] Rx#:[id number] Dextrose 5%-0.45% NaCl 1, 800 000 ml @ 100 mls/hr IV . Q10H [facility]EL Rx#:[id number] Oral 540 Output: Drainage 45 Left flank 45 Urine 700 Other: Voiding Method Indwelling Catheter Indwelling Catheter Indwelling Catheter - Labs CBC & Chem 7: 11/21/18 10:23
[2018-11-23] MEDS: DOCUSATE 100 MG CAP PO SCH ×2 (08:14→20:02)
[2018-11-23] MEDS: BUMETANIDE 1 MG TAB PO SCH (08:14)
[2018-11-23] MEDS: LORATADINE 10 MG TAB PO SCH (08:14)
[2018-11-23] MEDS: traMADol 50 MG TAB PO PRN ×3 (08:14→22:47)
[2018-11-23] MEDS: POTASSIUM CHLORIDE ER 20 MEQ TAB.ER PO SCH ×3 (08:14→20:58)
[2018-11-23] MEDS: SODIUM BICARBONATE TAB 650 MG TAB PO SCH ×3 (08:14→20:58)
[2018-11-23 09:48] LABS: HCT 30.2 % (34.0-46.0); MCH 31.3 pg (25.0-35.0); MCHC 31.7 g/dL (31.0-37.0); MCV 98.6 fL (80.0-100.0); Mean Platelet Volume 8.3; Platelet Count 126 k/uL (150-450); RBC 3.06 m/uL (3.80-5.40); RDW 12.8 % (11.5-15.5); WBC 18.6 k/uL (3.8-10.6)
[2018-11-23 09:54] LABS: HGB 9.6 gm/dL (11.4-16.0)
[2018-11-23] MEDS ORDERED: HYDROmorphone 0.5 MG/0.5 ML SYRINGE IVP PRN (09:56)
[2018-11-23] MEDS: metroNIDAZOLE 250 MG TABLET PO SCH (10:44)
[2018-11-23] MEDS: FLUoxetine HCL 20 MG CAP PO SCH ×2 (13:56→19:56)
[2018-11-23] MEDS: MIDODRINE 5 MG TAB PO SCH ×2 (13:56→19:55)
[2018-11-23] MEDS: PANTOPRAZOLE 40 MG TABLET PO SCH (13:56)
[2018-11-23] MEDS: MONTELUKAST 10 MG TAB PO SCH (19:56)
[2018-11-24] MEDS: DEXTROSE 5%-0.45% NACL 1,000 ML IV SCH ×2 (02:52→18:44)
[2018-11-24] MEDS: LEVOTHYROXINE 112 MCG TAB PO SCH (05:49)
[2018-11-24] MEDS: AMPICILLIN 1,000 MG in SODIUM CHLORIDE 0.9% 50 ML IVPB SCH ×3 (05:49→16:58)
[2018-11-24] MEDS: BUMETANIDE 1 MG TAB PO SCH (07:44)
[2018-11-24] MEDS: DOCUSATE 100 MG CAP PO SCH ×2 (07:44→19:57)
[2018-11-24] MEDS: SODIUM BICARBONATE TAB 650 MG TAB PO SCH ×3 (07:44→22:19)
[2018-11-24] MEDS: metroNIDAZOLE 250 MG TABLET PO SCH (07:44)
[2018-11-24] MEDS: POTASSIUM CHLORIDE ER 20 MEQ TAB.ER PO SCH ×3 (07:44→22:19)
[2018-11-24] MEDS: LORATADINE 10 MG TAB PO SCH (07:44)
[2018-11-24] MEDS: traMADol 50 MG TAB PO PRN ×3 (07:44→22:19)
--- NOTE | 2018-11-24 09:39 | P.PN ---
Subjective Progress Note Date: 11/24/18 Principal diagnosis: POD #3, s/p left PCNL The patient is feeling somewhat better each day. She has ambulated only to the bathroom, due to pain. She is currently receiving tramadol. Her appetite is poor. Objective - Vital Signs Vital signs: Vital Signs Temp 98.0 F 11/24/18 07:08 Pulse 67 11/24/18 07:08 Resp 15 11/24/18 07:08 BP 102/69 11/24/18 07:08 Pulse Ox 100 11/24/18 07:08 Intake & Output 11/23/18 11/24/18 11/24/18 18:59 06:59 18:59 Intake Total 980 910 Output Total 1080 Balance -100 910 Intake: IV 800 910 Ampicillin 1,000 mg In 10 Sodium Chloride 0.9% 50 ml @ 100 mls/hr IVPB Q6HR [facility] Rx#:[id number] Dextrose 5%-0.45% NaCl 1, 800 900 000 ml @ 100 mls/hr IV . Q10H [facility] Rx#:[id number] Oral 180 Output: Drainage 280 Left flank 280 Urine 800 Other: Voiding Method Indwelling Catheter # Voids 1 - Constitutional General appearance: Present: cooperative, no acute distress - Gastrointestinal Gastrointestinal Comment(s): Soft, non-distended, non-tender. The nephrostomy tube is draining urine which is essentially clear. - Labs CBC & Chem 7: 11/23/18 09:14 11/21/18 10:23 Labs: Abnormal Lab Results - Last 24 Hours (Table) 11/23/18 Range/Units 09:14 WBC 18.6 H (3.8-10.6) k/uL RBC 3.06 L (3.80-5.40) m/uL Hgb 9.6 L D (11.4-16.0) gm/dL Hct 30.2 L (34.0-46.0) % Plt Count 126 L (150-450) k/uL Assessment and Plan Plan: I have encouraged ambulation. I am hopeful that her condition will be improved enough to allow her to be discharged home tomorrow. I have changed the tramadol frequency from TID to QID to hopefully provide better pain control.
[2018-11-24] MEDS: PANTOPRAZOLE 40 MG TABLET PO SCH (16:56)
[2018-11-24] MEDS: FLUoxetine HCL 20 MG CAP PO SCH ×2 (16:56→20:24)
[2018-11-24] MEDS: MIDODRINE 5 MG TAB PO SCH ×2 (16:57→20:24)
[2018-11-24] MEDS: MONTELUKAST 10 MG TAB PO SCH (20:24)
[2018-11-24] MEDS: AMOXICILLIN 500 MG CAP PO SCH (23:05)
[2018-11-25] MEDS: traMADol 50 MG TAB PO PRN ×3 (04:48→19:02)
[2018-11-25] MEDS ORDERED: LEVOTHYROXINE 112 MCG TAB PO SCH (06:30)
[2018-11-25] MEDS: metroNIDAZOLE 250 MG TABLET PO SCH (08:20)
[2018-11-25] MEDS: SODIUM BICARBONATE TAB 650 MG TAB PO SCH ×3 (08:20→21:04)
[2018-11-25] MEDS: POTASSIUM CHLORIDE ER 20 MEQ TAB.ER PO SCH ×3 (08:20→21:04)
[2018-11-25] MEDS: DOCUSATE 100 MG CAP PO SCH ×2 (08:20→19:57)
[2018-11-25] MEDS: LORATADINE 10 MG TAB PO SCH (08:21)
[2018-11-25] MEDS: AMOXICILLIN 500 MG CAP PO SCH ×3 (08:21→23:17)
[2018-11-25] MEDS: BUMETANIDE 1 MG TAB PO SCH (08:21)
[2018-11-25] MEDS: PANTOPRAZOLE 40 MG TABLET PO SCH (14:13)
[2018-11-25] MEDS: FLUoxetine HCL 20 MG CAP PO SCH ×2 (14:13→19:56)
[2018-11-25] MEDS: MIDODRINE 5 MG TAB PO SCH ×2 (14:13→19:56)
--- NOTE | 2018-11-25 14:20 | P.DS ---
Providers Date of admission: 11/23/18 11:21 Expected date of discharge: 11/25/18 Attending physician: Orville Hennessy Primary care physician: Ter[facility] Course: On the day of admission, the patient underwent an uncomplicated but difficult left percutaneous nephrolithotomy. Her recovery was somewhat protracted but uncomplicated. She remained afebrile with stable vital signs. At the time of discharge, she was tolerating diet and feeling well. She was somewhat uncomfortable but able to ambulate without difficulty. Procedures: Left percutaneous nephrolithotomy (PCNL) on November 21, 2018 Patient Condition at Discharge: Good Plan - Discharge Summary Discharge Rx Participant: No New Discharge Prescriptions: New Amoxicillin 500 mg PO TID 7 Days #21 capsule traMADol HCl [Ultram] 50 mg PO Q8HR PRN 3 Days #10 tab PRN Reason: Moderate To Severe Pain No Action traMADol HCL [Ultram] 50 mg PO TID PRN PRN Reason: Pain Montelukast [Singulair] 10 mg PO HS Mometasone Inhalr 220 Mcg/Puff [Asmanex] 2 puff INHALATION RT-HS PRN PRN Reason: sob Loratadine [Alavert] 10 mg PO DAILY Albuterol Nebulized [Ventolin Nebulized] 2.5 mg INHALATION RT-TID PRN PRN Reason: sob Ranitidine HCl 300 mg PO HS FLUoxetine HCL [PROzac] 20 mg PO BID@1400,2000 Docusate [Colace] 200 mg PO BID Sodium Bicarbonate Tab 650 mg PO TID Midodrine [ProAmatine] 5 mg PO DAILY@1400 Calcitriol 1 mcg PO TID Bumetanide [BUMEX] 1 mg PO DAILY Potassium Chloride ER [K-Dur 20] 40 meq PO TID Levothyroxine Sodium [Synthroid] 224 mcg PO MURO Levothyroxine Sodium [Synthroid] 112 mcg PO MOTUWETHFRSA Fluticasone/Salmeterol [Advair 250-50 Diskus] 1 puff INHALATION RT-BID PRN PRN Reason: sob Midodrine [ProAmatine] 2.5 mg PO DAILY@2000 Amoxicillin 500 mg PO TID diphenhydrAMINE [Benadryl] 25 mg PO ONCE PRN PRN Reason: sulfa given Ergocalciferol (Vitamin D2) [Drisdol] 50,000 unit PO MOWEFR metroNIDAZOLE [Flagyl] 250 mg PO DAILY Cranberry Fruit Extract [Cranberry] 500 mg PO DAILY Rising Mg64 W/Ca 1 tab PO DAILY Omeprazole 40 mg PO DAILY@1400 Discharge Medication List Albuterol Nebulized [Ventolin Nebulized] 2.5 mg INHALATION RT-TID PRN 08/23/18 [History] Bumetanide [BUMEX] 1 mg PO DAILY 08/23/18 [History] Calcitriol 1 mcg PO TID 08/23/18 [History] Docusate [Colace] 200 mg PO BID 08/23/18 [History] FLUoxetine HCL [PROzac] 20 mg PO BID@1399,199908/23/18 [History] Fluticasone/Salmeterol [Advair 250-50 Diskus] 1 puff INHALATION RT-BID PRN 08/23/18 [History] Levothyroxine Sodium [Synthroid] 112 mcg PO MOTUWETHFRSA 08/23/18 [History] Levothyroxine Sodium [Synthroid] 224 mcg PO MURO 08/23/18 [History] Loratadine [Alavert] 10 mg PO DAILY 08/23/18 [History] Midodrine [ProAmatine] 5 mg PO DAILY@139908/23/18 [History] Mometasone Inhalr 220 Mcg/Puff [Asmanex] 2 puff INHALATION RT-HS PRN 08/23/18 [History] Montelukast [Singulair] 10 mg PO HS 08/23/18 [History] Potassium Chloride ER [K-Dur 20] 40 meq PO TID 08/23/18 [History] Ranitidine HCl 300 mg PO HS 08/23/18 [History] Sodium Bicarbonate Tab 650 mg PO TID 08/23/18 [History] traMADol HCL [Ultram] 50 mg PO TID PRN 08/23/18 [History] Amoxicillin 500 mg PO TID 11/19/18 [History] Cranberry Fruit Extract [Cranberry] 500 mg PO DAILY 11/19/18 [History] Ergocalciferol (Vitamin D2) [Drisdol] 50,000 unit PO MOWEFR 11/19/18 [History] Midodrine [ProAmatine] 2.5 mg PO DAILY@199911/19/18 [History] Omeprazole 40 mg PO DAILY@1400 11/19/18 [History] Rising Mg64 W/Ca 1 tab PO DAILY 11/19/18 [History] diphenhydrAMINE [Benadryl] 25 mg PO ONCE PRN 11/19/18 [History] metroNIDAZOLE [Flagyl] 250 mg PO DAILY 11/19/18 [History] Amoxicillin 500 mg PO TID 7 Days #21 capsule 11/24/18 [Rx] traMADol HCl [Ultram] 50 mg PO Q8HR PRN 3 Days #10 tab 11/24/18 [Rx] Follow up Appointment(s)/Referral(s): [facility], [NON-STAFF] - As Needed [facility] [place], [NON-STAFF] - As Needed Orville Hennessy MD [STAFF PHYSICIAN] - 1-2 Days Activity/Diet/Wound Care/Special Instructions: Discharge home with nephrostomy tube to gravity drainage. No lifting, driving, or strenuous activity. Discharge Disposition: HOME SELF-CARE
[2018-11-25] MEDS: MONTELUKAST 10 MG TAB PO SCH (19:56)
[2018-11-26] MEDS: traMADol 50 MG TAB PO PRN ×2 (01:17→07:16)
[2018-11-26] MEDS: LEVOTHYROXINE 112 MCG TAB PO SCH (05:10)
--- NOTE | 2018-11-26 07:36 | P.PN ---
Subjective Progress Note Date: 11/26/18 The patient underwent a percutaneous nephrostolithotomy last week for an infected large kidney stones. He has had moderate pain postoperatively. She was to be discharged home yesterday but was unable to tolerate the activity. She is feeling better this morning. Her nephrostomy tube was removed. If she feels better she'll be discharged home later this morning and follow-up in the office in one week. Her condition is good or vital signs are stable. Objective - Vital Signs Vital signs: Vital Signs Temp 98.3 F 11/26/18 01:40 Pulse 67 11/26/18 01:40 Resp 16 11/26/18 01:40 BP 107/64 11/26/18 01:40 Pulse Ox 94 L 11/25/18 07:20 Intake & Output 11/25/18 11/26/18 11/26/18 18:59 06:59 18:59 Intake Total 360 560 Output Total 60 Balance 360 500 Intake: Oral 360 560 Output: Drainage 60 Left flank 60 Other: Voiding Method Indwelling Catheter # Voids 3 - Labs CBC & Chem 7: 11/23/18 09:14 11/21/18 10:23
[2018-11-26] MEDS: AMOXICILLIN 500 MG CAP PO SCH ×2 (09:14→16:25)
[2018-11-26] MEDS: BUMETANIDE 1 MG TAB PO SCH (09:14)
[2018-11-26] MEDS: POTASSIUM CHLORIDE ER 20 MEQ TAB.ER PO SCH ×3 (09:14→23:41)
[2018-11-26] MEDS: LORATADINE 10 MG TAB PO SCH (09:14)
[2018-11-26] MEDS: metroNIDAZOLE 250 MG TABLET PO SCH (09:14)
[2018-11-26] MEDS: SODIUM BICARBONATE TAB 650 MG TAB PO SCH ×3 (09:15→23:41)
[2018-11-26] MEDS: DOCUSATE 100 MG CAP PO SCH ×2 (09:15→22:22)
[2018-11-26] MEDS: MIDODRINE 5 MG TAB PO SCH ×2 (13:10→22:36)
[2018-11-26] MEDS: FLUoxetine HCL 20 MG CAP PO SCH ×2 (13:11→22:22)
[2018-11-26] MEDS: PANTOPRAZOLE 40 MG TABLET PO SCH (13:12)
[2018-11-26] MEDS: MONTELUKAST 10 MG TAB PO SCH (22:22)
[2018-11-27] MEDS: AMOXICILLIN 500 MG CAP PO SCH ×2 (01:22→08:42)
[2018-11-27 02:19] VITALS: BP 94/67; TEMP 98.2
[2018-11-27] MEDS: LEVOTHYROXINE 112 MCG TAB PO SCH (05:43)
[2018-11-27] MEDS: BUMETANIDE 1 MG TAB PO SCH (08:43)
[2018-11-27] MEDS: LORATADINE 10 MG TAB PO SCH (08:46)
[2018-11-27] MEDS: DOCUSATE 100 MG CAP PO SCH (08:46)
[2018-11-27] MEDS: metroNIDAZOLE 250 MG TABLET PO SCH (08:47)
[2018-11-27] MEDS: POTASSIUM CHLORIDE ER 20 MEQ TAB.ER PO SCH (08:48)
[2018-11-27] MEDS: SODIUM BICARBONATE TAB 650 MG TAB PO SCH (08:49)
[2018-11-27 12:15] VITALS: PULSE 64; RESP 14
[2018-11-27] MEDS: traMADol 50 MG TAB PO PRN (12:50)
== END 2018-11-27 13:52 | DRG 660 ==
LOC: OR 09:19 → 4SSUR 13:32 → OR 11-23 11:21 → 4SSUR 11-23 11:21
PROVIDERS: ADMIT Urology; ATTEND Urology
PROC: 0T143JD Bypass Left Kidney Pelvis to Cutaneous with Synthetic Substitute, Percutaneous Approach (ICD-10-PCS; 2018-11-21)
PROC: 0TC13ZZ Extirpation of Matter from Left Kidney, Percutaneous Approach (ICD-10-PCS; 2018-11-21)
PROC: 0T778DZ Dilation of Left Ureter with Intraluminal Device, Via Natural or Artificial Opening Endoscopic (ICD-10-PCS; principal; 2018-11-21 10:45)
DX: N13.6 Pyonephrosis (principal); J96.10 Chronic respiratory failure, unspecified whether with hypoxia or hypercapnia; J44.9 Chronic obstructive pulmonary disease, unspecified; J84.10 Pulmonary fibrosis, unspecified; M81.0 Age-related osteoporosis without current pathological fracture; E07.9 Disorder of thyroid, unspecified; M19.90 Unspecified osteoarthritis, unspecified site; K21.9 Gastro-esophageal reflux disease without esophagitis; E55.9 Vitamin D deficiency, unspecified; Z79.890 Hormone replacement therapy; Z87.442 Personal history of urinary calculi; Z79.899 Other long term (current) drug therapy; Z88.1 Allergy status to other antibiotic agents; Z88.5 Allergy status to narcotic agent; Z88.2 Allergy status to sulfonamides; Z91.048 Other nonmedicinal substance allergy status; Z90.710 Acquired absence of both cervix and uterus; Z87.440 Personal history of urinary (tract) infections; Z98.84 Bariatric surgery status; Z90.49 Acquired absence of other specified parts of digestive tract; Z98.51 Tubal ligation status; Z82.0 Family history of epilepsy and other diseases of the nervous system; Z82.49 Family history of ischemic heart disease and other diseases of the circulatory system; Z82.62 Family history of osteoporosis; Z83.3 Family history of diabetes mellitus; Z80.9 Family history of malignant neoplasm, unspecified; Z83.49 Family history of other endocrine, nutritional and metabolic diseases; Z83.79 Family history of other diseases of the digestive system
CPT/HCPCS: 50432; 74018; 82365; 84132; 85027; 86850; 86900; 86901; 94760; 94762

== ENCOUNTER → 2018-12-27 | Outpatient (CLI) | payer MEDICARE ==
[2018-12-27 14:10] LABS: Appearance,Urine Clear (Clear); Bacteria,Urine Occasional /hpf; Basophils # (A) 0.1 k/uL (0-0.2); Basophils % (A) 1 %; Bilirubin,Urine Negative (Negative); Blood,Urine Negative (Negative); Color,Urine Light Yellow; Eosinophils # (A) 0.2 k/uL (0-0.7); Eosinophils % (A) 4 %; Glucose,Urine (UA) Negative (Negative); HCT 30.5 % (34.0-46.0); HGB 9.5 gm/dL (11.4-16.0); Ketones,Urine Negative (Negative); Leukocyte Esterase,Urine Small (Negative); Lymphocytes % (A) 30 %; MCH 30.4 pg (25.0-35.0); MCHC 31.1 g/dL (31.0-37.0); MCV 97.8 fL (80.0-100.0); Mean Platelet Volume 7.2; Monocytes # (A) 0.7 k/uL (0-1.0); Monocytes % (A) 10 %; Mucus,Urine Rare /hpf; Neutrophils # (A) 3.4 k/uL (1.3-7.7); Neutrophils % (A) 52 %; Nitrite,Urine Negative (Negative); Platelet Count 182 k/uL (150-450); Protein,Urine Negative (Negative); RBC 3.12 m/uL (3.80-5.40); RDW 13.3 % (11.5-15.5); Specific Gravity,Urine 1.006 (1.001-1.035); Squamous Epithelial Cell,Urine <1 /hpf (0-4); Urobilinogen,Urine <2.0 mg/dL (<2.0); WBC 6.5 k/uL (3.8-10.6); WBC,Urine 4 /hpf (0-5)
[2018-12-27 17:52] LABS: Iron Saturation 34.68 (12.00-45.00)
[2018-12-27 18:00] LABS: Vitamin D 25 Hydroxy 52.3 ng/mL (30.0-100.0)
[2018-12-27 18:04] LABS: African American GFR (CKD) 20.2 (60.0-200.0); Albumin 3.4 g/dL (3.80-4.90); Anion Gap 9.6 mmol/L (4.00-12.00); BUN/Creat Ratio 23.08 Ratio (12.00-20.00); Calcium 9.9 mg/dL (8.7-10.3); Carbon Dioxide 22.4 mmol/L (21.6-31.8); Phosphorus 6.3 mg/dL (2.4-5.1); Potassium 4.9 mmol/L (3.5-5.5); Uric Acid 6.3 mg/dL (2.9-7.7)
[2018-12-27 18:20] LABS: Creatinine,Urine Random 26.2 mg/dL
[2018-12-27 18:51] LABS: Total Protein,Urine Random 8.2 mg/dL (0.0-13.5)
== END | disposition home or self-care (01) ==
LOC: LABWHC1 13:22
PROVIDERS: ATTEND Nurse Practitioner Family
DX: E55.9 Vitamin D deficiency, unspecified (principal); M10.9 Gout, unspecified; R50.9 Fever, unspecified; N18.4 Chronic kidney disease, stage 4 (severe); D63.1 Anemia in chronic kidney disease
CPT/HCPCS: 36415; 80048; 81001; 82040; 82306; 82570; 82728; 83540; 83550; 83735; 83970; 84100; 84156; 84550; 85025

== ENCOUNTER → 2019-01-30 | Outpatient (CLI) | payer MEDICARE ==
[2019-01-30 11:58] LABS: Appearance,Urine Clear (Clear); Bacteria,Urine Few /hpf; Bilirubin,Urine Negative (Negative); Blood,Urine Negative (Negative); Color,Urine Light Yellow; Glucose,Urine (UA) Negative (Negative); Ketones,Urine Negative (Negative); Leukocyte Esterase,Urine Moderate (Negative); Mucus,Urine Rare /hpf; Nitrite,Urine Positive (Negative); Protein,Urine Negative (Negative); Specific Gravity,Urine 1.009 (1.001-1.035); Urobilinogen,Urine <2.0 mg/dL (<2.0); WBC,Urine 13 /hpf (0-5)
[2019-01-30 16:04] LABS: Iron Saturation 28.27 (12.00-45.00)
[2019-01-30 16:15] LABS: Albumin 3.8 g/dL (3.80-4.90); Magnesium 2.1 mg/dL (1.5-2.4); Phosphorus 5.7 mg/dL (2.4-5.1); Uric Acid 5.5 mg/dL (2.9-7.7); Vitamin D 25 Hydroxy 42.4 ng/mL (30.0-100.0)
[2019-01-30 18:23] LABS: Total Protein,Urine Random 9.5 mg/dL (0.0-13.5)
== END | disposition home or self-care (01) ==
LOC: LABWHC1 10:35
PROVIDERS: ATTEND Internal Medicine Nephrology
DX: M10.9 Gout, unspecified (principal); N39.0 Urinary tract infection, site not specified; N25.81 Secondary hyperparathyroidism of renal origin; N18.4 Chronic kidney disease, stage 4 (severe); R80.9 Proteinuria, unspecified
CPT/HCPCS: 36415; 81001; 82040; 82306; 82570; 82728; 83540; 83550; 83735; 83970; 84100; 84156; 84550

== ENCOUNTER → 2019-01-30 | Outpatient (CLI) | payer MEDICARE ==
[2019-01-30 11:22] LABS: Basophils # (A) 0.1 k/uL (0-0.2); Basophils % (A) 1 %; Eosinophils # (A) 0.2 k/uL (0-0.7); Eosinophils % (A) 4 %; HCT 35.5 % (34.0-46.0); HGB 11.2 gm/dL (11.4-16.0); Lymphocytes % (A) 31 %; MCH 31.5 pg (25.0-35.0); MCHC 31.5 g/dL (31.0-37.0); MCV 99.9 fL (80.0-100.0); Mean Platelet Volume 7.3; Monocytes # (A) 0.5 k/uL (0-1.0); Monocytes % (A) 8 %; Neutrophils # (A) 3.4 k/uL (1.3-7.7); Neutrophils % (A) 54 %; Platelet Count 257 k/uL (150-450); RBC 3.55 m/uL (3.80-5.40); RDW 14.2 % (11.5-15.5); WBC 6.3 k/uL (3.8-10.6)
[2019-01-30 11:37] LABS: Calcium 10.6 mg/dL (8.4-10.2); Potassium 4.2 mmol/L (3.5-5.1)
== END | disposition home or self-care (01) ==
LOC: LABPAT 10:32
PROVIDERS: ATTEND Surgery
DX: Z01.812 Encounter for preprocedural laboratory examination (principal); N18.9 Chronic kidney disease, unspecified
CPT/HCPCS: 36415; 80048; 85025

== ENCOUNTER 2019-02-08 07:58 | Day surgery (SDC) | payer MEDICARE ==
[2019-01-31 12:01] VITALS: BMI 21.6
[~2019-02-08 07:58] MED LIST changes: -GENTAMICIN 80 MG in SODIUM CHLORIDE 0.9% 100 ML IVPB ONE; +LACTATED RINGERS 1,000 ML IV SCH; +MORPHINE SULFATE 2 MG/ML SYRINGE IV PRN; -ONDANSETRON 4 MG/2 ML VIAL IVP ONE; +ONDANSETRON 4 MG/2 ML VIAL IVP PRN
[2019-02-08] MEDS ORDERED: SODIUM CHLORIDE 0.9% 1,000 ML IV ONE (08:53)
[2019-02-08 08:57] VITALS: RESP 16; TEMP 98.5
[2019-02-08] MEDS ORDERED: MIDAZOLAM (PF) 2 MG/2 ML VIAL IV ONE (09:55)
[2019-02-08] MEDS ORDERED: ROPIVACAINE 5 MG/ML 30 ML VIAL ONE (10:39)
[2019-02-08] MEDS ORDERED: fentaNYL (PF) 50 MCG/ML 2 ML AMP ONE (10:39)
[2019-02-08] MEDS ORDERED: PROTAMINE SULFATE 10 MG/ML 5 ML VIAL IV ONE (10:39)
[2019-02-08] MEDS ORDERED: MIDAZOLAM 2 MG/2 ML VIAL ONE (10:39)
[2019-02-08] MEDS ORDERED: HEPARIN SODIUM,PORCINE 5,000 UNIT/ML 1 ML VIAL ONE (10:39)
[2019-02-08] MEDS ORDERED: LIDOCAINE 1% INJ 10MG/ML (20 ML MDV) SQ ONE (11:13)
[2019-02-08] MEDS ORDERED: GELATIN SPONGE,ABSORB (LARGE) 1 EACH SPONGE TOPICAL ONE (12:52)
[2019-02-08] MEDS ORDERED: THROMBIN (BOVINE) 5,000 UNIT VIAL TOPICAL ONE (13:11)
[2019-02-08 13:47] VITALS: PULSE 55
[2019-02-08 14:40] VITALS: BP 108/68
--- NOTE | 2019-02-08 17:02 | P.OP ---
Date of Procedure: 02/08/19 Preoperative Diagnosis: Chronic renal failure stage 5 Postoperative Diagnosis: same Procedure(s) Performed: left upper extremity loop forearm brachial artery-brachial vein AVG Implants: 4-7mm propaten gore graft Anesthesia: regional, local Surgeon: Alejandro Montanez Estimated Blood Loss (ml): 10 Pathology: none sent Condition: stable Disposition: PACU Indications for Procedure: 73 year old female with chronic renal failure presents to the hospital for c reation of left forearm loop graft. Ultrasound and vein mapping demonstrated poor veins for fistula creation and therefore graft was chosen to be performed. Operative Findings: poor venous outflow noted with superficial veins occluded throughout upper arm. Description of Procedure: After written informed consent was obtained the patient all risks benefits and competitions were described patient is brought to the operative suite and laid in a supine position with the left arm outstretched on an armboard. The area of the arm was then prepped and draped in usual sterile fashion after appropriate anesthetic was performed per the anesthesiologist. A timeout was performed in normal fashion antibiotics were administered prior to incision. A transverse incision was then created just distal to the elbow and dissection was carried down to the antecubital vein and this was dissected free in a circumferential manner and assessed for patency which was occluded and fibrotic. Ultrasound was then used to try to locate the basilic or cephalic veins which were not present throughout the upper arm.. Further dissection was performed to the brachial vein which was compressible and patent and proximal and distal control was obtained with vessel loops. Attention was then placed to the artery and the brachial artery was then dissected free in a circumferential manner and controlled with vessel loops for the proximal and distal aspect. A tunnel was then created in a loop fashion with a counter-incision made in the forearm and a 4-7 mm Silex propatent graft was tunneled in a loop fashion. Patient was then administered heparin. Arterial anastomosis was then performed after arteriotomy was created in the brachial artery and extended with Pott Lewis scissors. We 4 mm aspect of the graft was then spatulated in normal fashion and anastomosis was created with 6-0 Prolene suture in a running fashion. Control was then released into the graft revealing good pulsatile blood flow. Distal control of the artery was then released. Assessment of the radial artery demonstrated good pulse. The anastomosis was then performed. Venotomy was created with 11 blade scalpel and extended with Pott Lewis scissors. A 7 mm aspect of the graft was then spatulated in normal fashion and anastomosis was created with 6-0 Prolene suture in a running fashion. Prior to last sutures being placed control was released revealing good backbleeding from the vein. The graft was flushed with heparin saline. Control was then released revealing good pulsatile blood flow within the vein with a good palpable augmented pulse noted. Hemostasis was then assured with gel foam and thrombin. Incisions were then closed in a multilayer fashion. Skin was cleansed and dressings were placed. The patient tolerated the procedure well and was sent to PACU for recovery.
--- NOTE | 2019-02-09 11:57 | P.ANPRN ---
Procedure Note - Anesthesia - Nerve Block Performed Left Supraclavicular Single Time Out Performed: Yes Date of Procedure: 12/08/18 Procedure Start Time: 09:56 Procedure Stop Time: 10:05 Location of Patient Procedure: PreOp Indication: Acute Post-Operative Pain, Requested by Surgeon Sedation Type: Sedate with meaningful contact maintained Preparation: Sterile Prep Position: Supine Needle Types: Pajunk Needle Gauge: 21 Ultrasound used to visualize needle placement: Yes Ultrasound used to observe medication spread: Yes Injectate: 0.5% Ropivacaine (see comment for volume) (ropi .5% 20cc) Blood Aspirated: No Pain Paresthesia on Injection Noted: No Resistance on Injection: Normal Image Stored and Saved: Yes Events: Uneventful and Well Tolerated
== END 2019-02-08 15:07 | disposition home or self-care (01) ==
LOC: OR 07:58
PROVIDERS: ATTEND Surgery
DX: I87.2 Venous insufficiency (chronic) (peripheral) (principal); N18.5 Chronic kidney disease, stage 5; M19.90 Unspecified osteoarthritis, unspecified site; J44.9 Chronic obstructive pulmonary disease, unspecified; E05.00 Thyrotoxicosis with diffuse goiter without thyrotoxic crisis or storm; G43.909 Migraine, unspecified, not intractable, without status migrainosus; Z90.5 Acquired absence of kidney; Z98.84 Bariatric surgery status; Z90.49 Acquired absence of other specified parts of digestive tract; Z90.710 Acquired absence of both cervix and uterus; Z98.51 Tubal ligation status; F32.9 Major depressive disorder, single episode, unspecified; K21.9 Gastro-esophageal reflux disease without esophagitis; Z79.51 Long term (current) use of inhaled steroids; Z79.899 Other long term (current) drug therapy; Z79.890 Hormone replacement therapy; Z88.1 Allergy status to other antibiotic agents; Z88.5 Allergy status to narcotic agent; Z88.2 Allergy status to sulfonamides; Z91.09 Other allergy status, other than to drugs and biological substances
CPT/HCPCS: 36820; 64415; L8670; J2250 ×2; J2720; J1644; J0690; J2405; J3010; J2795; 64413

== ENCOUNTER 2019-02-13 13:46 | Inpatient (IN) | payer MEDICARE ==
--- NOTE | 2019-02-13 14:52 | ED ---
Skin/Abscess/FB HPI - General Chief complaint: Skin/Abscess/Foreign Body Stated complaint: post op infection in arm Time Seen by Provider: 02/13/19 14:04 Source: patient Mode of arrival: wheelchair Limitations: no limitations - History of Present Illness Initial comments: Patient is a 73-year-old female presenting to the emergency Department with complaints of left forearm pain and redness 1 day. Patient recently had a left forearm loop graft inserted by Dr. Montanez 5 days ago secondary to chronic renal failure and preparing for dialysis. Patient has been doing well until today when she started having pain from her left elbow down into her left hand as well as some mild erythema around the graft. Patient did call the doctor's office and they recommended coming to the ER. Patient denies any fever, chills, nausea, vomiting. Patient has been taking tramadol for pain. Last pain med was approximately 3 hours prior to arrival. Patient has no other complaints right now. Upon arrival to ER, vital signs are stable. - Related Data Home Medications Medication Instructions Recorded Confirmed Albuterol Nebulized [Ventolin 2.5 mg INHALATION RT-TID PRN 08/23/18 02/13/19 Nebulized] Bumetanide [BUMEX] 1 mg PO DAILY@139908/23/18 02/13/19 Calcitriol 0.5 mcg PO BID@1400,209908/23/18 02/13/19 Docusate [Colace] 100 mg PO DAILY@139908/23/18 02/13/19 FLUoxetine HCL [PROzac] 20 mg PO BID@1400,209908/23/18 02/13/19 Fluticasone/Salmeterol [Advair 1 puff INHALATION RT-BID PRN 08/23/18 02/13/19 250-50 Diskus] Levothyroxine Sodium [Synthroid] 112 mcg PO MOTUWETHFRSA 08/23/18 02/13/19 Levothyroxine Sodium [Synthroid] 224 mcg PO MURO 08/23/18 02/13/19 Loratadine [Alavert] 10 mg PO DAILY@1400 08/23/18 02/13/19 Midodrine [ProAmatine] 5 mg PO DAILY@1400 08/23/18 02/13/19 Mometasone Inhalr 220 Mcg/Puff 2 puff INHALATION RT-HS PRN 08/23/18 02/13/19 [Asmanex] Montelukast [Singulair] 10 mg PO HS 08/23/18 02/13/19 Ranitidine HCl 300 mg PO HS 08/23/18 02/13/19 Sodium Bicarbonate Tab 650 mg PO TID@1400,1700,2100 08/23/18 02/13/19 Cranberry Fruit Extract [Cranberry] 500 mg PO DAILY@1400 11/19/18 02/13/19 Midodrine [ProAmatine] 2.5 mg PO HS@209911/19/18 02/13/19 Omeprazole 40 mg PO DAILY@139911/19/18 02/13/19 Rising Mg64 W/Ca 1 tab PO DAILY@139911/19/18 02/13/19 metroNIDAZOLE [Flagyl] 250 mg PO DAILY@139911/19/18 02/13/19 Albuterol Sulfate [Proair Hfa] 1 - 2 puff INHALATION RT-Q6H PRN 01/31/19 02/13/19 Budesonide-Formot 160-4.5 Mcg 2 puff INHALATION RT-BID PRN 01/31/19 02/13/19 [Symbicort 160-4.5 Mcg Inhaler] Docusate [Colace] 200 mg PO HS@209901/31/19 02/13/19 Ergocalciferol (Vitamin D2) 50,000 unit PO MOWEFR 01/31/19 02/13/19 [Vitamin D2] Potassium Chloride [Klor-Con 20] 20 meq PO BID 01/31/19 02/13/19 traMADol HCl [Ultram] 50 mg PO Q8HR PRN 01/31/19 02/13/19 Allergies Allergy/AdvReac Type Severity Reaction Status Date / Time adhesive tape Allergy Rash/Hives Verified 02/13/19 14:08 Sulfa (Sulfonamide Allergy Itching Verified 02/13/19 14:08 Antibiotics) tetracycline Allergy Nausea & Verified 02/13/19 14:08 Vomiting codeine AdvReac Nausea Verified 02/13/19 14:08 Review of Systems ROS Statement: Those systems with pertinent positive or pertinent negative responses have been documented in the HPI. ROS Other: All systems not noted in ROS Statement are negative. Past Medical History Past Medical History: COPD, Osteoarthritis (OA), Renal Disease, Thyroid Disorder Additional Past Medical History / Comment(s): current kidney stones and UTI,steroid injection October 2018 hx lymphedema, hx pulmonary fibrosis, hx graves,hx rt foot torn ligaments,hx kidney stones, hx osteoporosis,hypotension, chronic respiratory failure on 2 L nasal cannula at night & prn, vitamine D deficiency, hypocalcemia History of Any Multi-Drug Resistant Organisms: CRE Date of last positivie culture/infection: 10/16/18 Enterobacter intermedium CRE (per [facility] negative for KPC or other) MDRO Source:: Urine Past Surgical History: Bariatric Surgery Additional Past Surgical History / Comment(s): hx bariatric surgery-Kye En Y,lung biopsy,radioactive iodine-tx thyroid,rectal and bladder suspensions,vaginal surgery as a child,partha carpel tunnel,rt knee meniscus repair,D&C x3, left arm fistula Past Anesthesia/Blood Transfusion Reactions: Previous Problems w/ Anesthesia, Postoperative Nausea & Vomiting (PONV) Additional Past Anesthesia/Blood Transfusion Reaction / Comment(s): decrease bp with anesthesia,no problems with prior blood transfusion Past Psychological History: No Psychological Hx Reported Smoking Status: Never smoker Past Alcohol Use History: None Reported Past Drug Use History: None Reported - Past Family History Father Family Medical History: Pulmonary Embolus Additional Family Medical History / Comment(s): . Mother Family Medical History: Cancer Additional Family Medical History / Comment(s): . Sister(s) Family Medical History: Cancer Additional Family Medical History / Comment(s): . Daughter(s) Additional Family Medical History / Comment(s): lymphedema in legs General Exam - General Exam Comments Initial Comments: GENERAL: Well-appearing, well-nourished and in no acute distress. HEAD: Atraumatic, normocephalic. EYES: Pupils equal round and reactive to light, extraocular movements intact, sclera anicteric, conjunctiva are normal. ENT: TMs normal, nares patent, oropharynx clear without exudates. Moist mucous membranes. NECK: Normal range of motion, supple without lymphadenopathy or JVD. LUNGS: Breath sounds clear to auscultation bilaterally and equal. No wheezes rales or rhonchi. HEART: Regular rate and rhythm without murmurs, rubs or gallops. ABDOMEN: Soft, nontender, normoactive bowel sounds. No guarding, no rebound. No masses appreciated. : Deferred EXTREMITIES: Patient has a left forearm loop graft that was inserted 5 days ago. There is some swelling of the left forearm as well as some mild erythema at the incision site. There is some pain with palpation of the left hand as well as bruising on the dorsal aspect. Patient has pain with wrist range of motion. NEUROLOGICAL: Cranial nerves II through XII grossly intact. Normal speech, normal gait. PSYCH: Normal mood, normal affect. SKIN: Warm, Dry, normal turgor. Limitations: no limitations Course Vital Signs 02/13/19 02/13/19 02/13/19 13:48 16:52 18:00 Temperature 98.3 F 97.1 F L Pulse Rate 78 62 70 Respiratory 18 18 18 Rate Blood Pressure 112/71 121/70 120/76 O2 Sat by Pulse 99 100 100 Oximetry Medical Decision Making - Medical Decision Making Patient is a 73-year-old female presenting with left arm pain secondary to loop graft that was inserted approximately 5 days ago. Patient states she's been having an increase in pain and swelling in that started today. Patient denies any fever, chills, chest pain, shortness of breath. She has no other complaints at this time. On exam patient has some mild swelling around the graft site as well as a very mild erythema. Patient has pain from her left elbow down to her left hand. The left hand does have some bruising present. CBC showed patient's hemoglobin down slightly from 11.2 2 weeks ago to 9.4 today. Patient's coags are within normal limits. Patient's BUNs is 91 and creatinine is 6.57. Also increased from 2 weeks ago, 60/2.52. Lactic acid is 0.6. UA shows no signs of infection. Ultrasound of the left extremity shows no signs of DVT. Case was discussed with Dr. Flores. Patient will be admitted for renal failure. Patient was accepted by Dr. Armendariz. Patient is in agreement with this plan of care. - Lab Data Result diagrams: 02/13/19 14:51 02/13/19 14:51 Lab Results 02/13/19 02/13/19 02/13/19 Range/Units 14:51 14:51 14:51 WBC 5.4 (3.8-10.6) k/uL RBC 2.99 L (3.80-5.40) m/uL Hgb 9.4 L D (11.4-16.0) gm/dL Hct 28.7 L (34.0-46.0) % MCV 95.9 (80.0-100.0) fL MCH 31.4 (25.0-35.0) pg MCHC 32.8 (31.0-37.0) g/dL RDW 13.3 (11.5-15.5) % Plt Count 134 L (150-450) k/uL Neutrophils % 68 % Lymphocytes % 19 % Monocytes % 8 % Eosinophils % 3 % Basophils % 1 % Neutrophils # 3.7 (1.3-7.7) k/uL Lymphocytes # 1.0 (1.0-4.8) k/uL Monocytes # 0.4 (0-1.0) k/uL Eosinophils # 0.1 (0-0.7) k/uL Basophils # 0.1 (0-0.2) k/uL PT 9.5 (9.0-12.0) sec INR 0.9 (<1.2) APTT 21.0 L (22.0-30.0) sec Sodium 138 (137-145) mmol/L Potassium 3.8 (3.5-5.1) mmol/L Chloride 108 H (98-107) mmol/L Carbon Dioxide 12 L (22-30) mmol/L Anion Gap 18 mmol/L BUN 91 H (7-17) mg/dL Creatinine 6.57 H (0.52-1.04) mg/dL Est GFR (CKD-EPI)AfAm 7 (>60 ml/min/1.73 sqM) Est GFR (CKD-EPI)NonAf 6 (>60 ml/min/1.73 sqM) Glucose 97 (74-99) mg/dL Plasma Lactic Acid Klever (0.7-2.0) mmol/L Calcium 9.1 (8.4-10.2) mg/dL Total Bilirubin 0.2 (0.2-1.3) mg/dL AST 21 (14-36) U/L ALT 11 (9-52) U/L Alkaline Phosphatase 51 (38-126) U/L Total Protein 6.2 L (6.3-8.2) g/dL Albumin 3.5 (3.5-5.0) g/dL Urine Color Urine Appearance (Clear) Urine pH (5.0-8.0) Ur Specific Corona (1.001-1.035) Urine Protein (Negative) Urine Glucose (UA) (Negative) Urine Ketones (Negative) Urine Blood (Negative) Urine Nitrite (Negative) Urine Bilirubin (Negative) Urine Urobilinogen (<2.0) mg/dL Ur Leukocyte Esterase (Negative) Urine RBC (0-5) /hpf Urine WBC (0-5) /hpf Ur Squamous Epith Cells (0-4) /hpf Urine Bacteria (None) /hpf Urine Mucus (None) /hpf 02/13/19 02/13/19 Range/Units 14:51 15:25 WBC (3.8-10.6) k/uL RBC (3.80-5.40) m/uL Hgb (11.4-16.0) gm/dL Hct (34.0-46.0) % MCV (80.0-100.0) fL MCH (25.0-35.0) pg MCHC (31.0-37.0) g/dL RDW (11.5-15.5) % Plt Count (150-450) k/uL Neutrophils % % Lymphocytes % % Monocytes % % Eosinophils % % Basophils % % Neutrophils # (1.3-7.7) k/uL Lymphocytes # (1.0-4.8) k/uL Monocytes # (0-1.0) k/uL Eosinophils # (0-0.7) k/uL Basophils # (0-0.2) k/uL PT (9.0-12.0) sec INR (<1.2) APTT (22.0-30.0) sec Sodium (137-145) mmol/L Potassium (3.5-5.1) mmol/L Chloride (98-107) mmol/L Carbon Dioxide (22-30) mmol/L Anion Gap mmol/L BUN (7-17) mg/dL Creatinine (0.52-1.04) mg/dL Est GFR (CKD-EPI)AfAm (>60 ml/min/1.73 sqM) Est GFR (CKD-EPI)NonAf (>60 ml/min/1.73 sqM) Glucose (74-99) mg/dL Plasma Lactic Acid Klever 0.6 L (0.7-2.0) mmol/L Calcium (8.4-10.2) mg/dL Total Bilirubin (0.2-1.3) mg/dL AST (14-36) U/L ALT (9-52) U/L Alkaline Phosphatase (38-126) U/L Total Protein (6.3-8.2) g/dL Albumin (3.5-5.0) g/dL Urine Color Light Yellow Urine Appearance Clear (Clear) Urine pH 5.0 (5.0-8.0) Ur Specific [place]ona 1.009 (1.001-1.035) Urine Protein Trace H (Negative) Urine Glucose (UA) Negative (Negative) Urine Ketones Negative (Negative) Urine Blood Negative (Negative) Urine Nitrite Negative (Negative) Urine Bilirubin Negative (Negative) Urine Urobilinogen <2.0 (<2.0) mg/dL Ur Leukocyte Esterase Negative (Negative) Urine RBC <1 (0-5) /hpf Urine WBC 2 (0-5) /hpf Ur Squamous Epith Cells 1 (0-4) /hpf Urine Bacteria Occasional H (None) /hpf Urine Mucus Rare H (None) /hpf Disposition Clinical Impression: Renal failure, Left arm pain Disposition: ADMITTED IP TO THIS [facility] Condition: Stable Is patient prescribed a controlled substance at d/c from ED?: No Decision Date: 02/13/19 Decision Time: 19:00
[2019-02-13 15:06] LABS: Basophils # (A) 0.1 k/uL (0-0.2); Basophils % (A) 1 %; Eosinophils # (A) 0.1 k/uL (0-0.7); Eosinophils % (A) 3 %; HCT 28.7 % (34.0-46.0); Lymphocytes % (A) 19 %; MCH 31.4 pg (25.0-35.0); MCHC 32.8 g/dL (31.0-37.0); MCV 95.9 fL (80.0-100.0); Mean Platelet Volume 7.2; Monocytes # (A) 0.4 k/uL (0-1.0); Monocytes % (A) 8 %; Neutrophils # (A) 3.7 k/uL (1.3-7.7); Neutrophils % (A) 68 %; Platelet Count 134 k/uL (150-450); RBC 2.99 m/uL (3.80-5.40); RDW 13.3 % (11.5-15.5); WBC 5.4 k/uL (3.8-10.6)
[2019-02-13 15:10] LABS: HGB 9.4 gm/dL (11.4-16.0)
[2019-02-13 15:14] LABS: Albumin 3.5 g/dL (3.5-5.0); Calcium 9.1 mg/dL (8.4-10.2); Potassium 3.8 mmol/L (3.5-5.1); Total Bilirubin 0.2 mg/dL (0.2-1.3); Total Protein 6.2 g/dL (6.3-8.2)
[2019-02-13 15:24] LABS: INR 0.9 (<1.2); Prothrombin Time 9.5 sec (9.0-12.0)
[2019-02-13 16:19] LABS: Appearance,Urine Clear (Clear); Bacteria,Urine Occasional /hpf; Bilirubin,Urine Negative (Negative); Blood,Urine Negative (Negative); Color,Urine Light Yellow; Glucose,Urine (UA) Negative (Negative); Ketones,Urine Negative (Negative); Leukocyte Esterase,Urine Negative (Negative); Mucus,Urine Rare /hpf; Nitrite,Urine Negative (Negative); Protein,Urine Trace (Negative); RBC,Urine <1 /hpf (0-5); Specific Gravity,Urine 1.009 (1.001-1.035); Squamous Epithelial Cell,Urine 1 /hpf (0-4); Urobilinogen,Urine <2.0 mg/dL (<2.0)
--- NOTE | 2019-02-13 17:17 | US ---
EXAMINATION TYPE: US venous doppler duplex UE LT DATE OF EXAM: 02/13/2019 COMPARISON: NONE CLINICAL HISTORY: pain, swelling. Left arm fistula placed in lower left arm 5 days ago, having left a rm pain and swelling at fistula site SIDE PERFORMED: Left Left Arm: Negative for DVT, left radial artery and veins converge at left axilla/ lower medial forear m at fistula site at area of redness and swelling shows superficial edema/ Fistula upper forearm show s proper color fill, near left wrist color flow very difficult to visualize IMPRESSION: There is some superficial edema. No evidence of deep venous thrombosis in the left arm.
[2019-02-13] MEDS ORDERED: NALOXONE 0.4 MG/ML 1 ML VIAL IV PRN (19:06)
[2019-02-13] MEDS ORDERED: traMADol 50 MG TAB PO PRN ×2 (19:06→19:37)
[2019-02-13] MEDS ORDERED: ACETAMINOPHEN TAB 325 MG TAB PO PRN (19:06)
[2019-02-13] MEDS: SODIUM CHLORIDE 0.9% 1,000 ML IV SCH (19:28)
[2019-02-13] MEDS ORDERED: SYMBICORT 80-4.5 MCG INHALER INHALATION PRN (19:37)
[2019-02-13] MEDS ORDERED: FLUTICASONE 110 MCG INHALER INHALATION PRN (19:37)
[2019-02-13] MEDS ORDERED: IPRATROPIUM-ALBUTEROL 3 ML NEB INHALATION PRN (19:40)
[2019-02-13] MEDS: FAMOTIDINE 20 MG TAB PO SCH (22:45)
[2019-02-13] MEDS: CALCITRIOL 0.25 MCG CAP PO SCH (22:45)
[2019-02-13] MEDS: DOCUSATE 100 MG CAP PO SCH (22:45)
[2019-02-13] MEDS: MIDODRINE 5 MG TAB PO SCH (22:46)
[2019-02-13] MEDS: SODIUM BICARBONATE TAB 650 MG TAB PO SCH (22:46)
[2019-02-13] MEDS: MONTELUKAST 10 MG TAB PO SCH (22:46)
[2019-02-13] MEDS: FLUoxetine HCL 20 MG CAP PO SCH (22:46)
[2019-02-14] MEDS ORDERED: VANCOMYCIN IV PER PHARMACY 1 EACH MISC MISCELLANE PRN (01:17)
--- NOTE | 2019-02-14 01:28 | P.HPIM ---
History of Present Illness H&P Date: 02/13/19 Chief Complaint: left forearm pain and reddness 73-year-old female with history of chronic kidney disease, hypothyroid, brain aneurysm Patient presented to the hospital with 1 day history of pain and redness over the left forearm at site of recent insertion of AV graft in preparation for hemodialysis. Age and has an having worsening renal function over the years and she is anticipating starting hemodialysis for which [address] Martin inserted a left AV graft. Patient was doing well up until today when she noticed increased redness swelling and painful range of motion of the left elbow with severe tenderness over the surgical site reported pain of 10 out of 10 in severity shooting sharp pain she denies any fevers but she reports positive chills denies any nausea or vomiting denies any trauma. Patient was concerned she called her surgeon's office who recommended that she goes to the ER for evaluation. Patient otherwise reports recent hospitalization around August of this year where she had infected kidney stones and sepsis and she is concerned that this is another infection. She is chronically on Flagyl for many years otherwise no recent changes in her medications. She denies otherwise any chest pain or trouble breathing abdominal pain denies any changes in her urinary or bowel habits denies any GI bleeding In the ED venous duplex ultrasound of the left arm was done showed no evidence of acute DVT Review of Systems Pertinent positives as noted in HPI. All other systems were reviewed and are negative Past Medical History Past Medical History: COPD, Osteoarthritis (OA), Renal Disease, Thyroid Disorder Additional Past Medical History / Comment(s): kidney stones and UTI,steroid injection October 2018 hx lymphedema, hx pulmonary fibrosis, hx graves,hx rt foot torn ligaments,hx kidney stones, hx osteoporosis,hypotension, chronic respiratory failure on 2 L nasal cannula at night & prn, vitamine D deficiency, hypocalcemia History of Any Multi-Drug Resistant Organisms: CRE Date of last positivie culture/infection: 10/16/18 Enterobacter intermedium CRE (per [facility] negative for KPC or other) MDRO Source:: Urine Past Surgical History: Bariatric Surgery Additional Past Surgical History / Comment(s): hx bariatric surgery-Kye En Y,lung biopsy,radioactive iodine-tx thyroid,rectal and bladder suspensions,vaginal surgery as a child,partha carpel tunnel,rt knee meniscus repair,D&C x3, left arm fistula 02/08/19 Past Anesthesia/Blood Transfusion Reactions: Previous Problems w/ Anesthesia, Postoperative Nausea & Vomiting (PONV) Additional Past Anesthesia/Blood Transfusion Reaction / Comment(s): decrease bp with anesthesia,no problems with prior blood transfusion Past Psychological History: No Psychological Hx Reported Smoking Status: Never smoker Past Alcohol Use History: None Reported Past Drug Use History: None Reported - Past Family History Father Family Medical History: Pulmonary Embolus Additional Family Medical History / Comment(s): . Mother Family Medical History: Cancer Additional Family Medical History / Comment(s): . Sister(s) Family Medical History: Cancer Additional Family Medical History / Comment(s): . Daughter(s) Additional Family Medical History / Comment(s): lymphedema in legs Medications and Allergies Home Medications Medication Instructions Recorded Confirmed Type Albuterol Nebulized [Ventolin 2.5 mg INHALATION RT-TID PRN 08/23/18 02/13/19 History Nebulized] Bumetanide [BUMEX] 1 mg PO DAILY@139908/23/18 02/13/19 History Calcitriol 0.5 mcg PO BID@1399,209908/23/18 02/13/19 History Docusate [Colace] 100 mg PO DAILY@139908/23/18 02/13/19 History FLUoxetine HCL [PROzac] 20 mg PO BID@1400,209908/23/18 02/13/19 History Fluticasone/Salmeterol [Advair 1 puff INHALATION RT-BID PRN 08/23/18 02/13/19 History 250-50 Diskus] Levothyroxine Sodium [Synthroid] 112 mcg PO MOTUWETHFRSA 08/23/18 02/13/19 History Levothyroxine Sodium [Synthroid] 224 mcg PO MURO 08/23/18 02/13/19 History Loratadine [Alavert] 10 mg PO DAILY@1400 08/23/18 02/13/19 History Midodrine [ProAmatine] 5 mg PO DAILY@1400 08/23/18 02/13/19 History Mometasone Inhalr 220 Mcg/Puff 2 puff INHALATION RT-HS PRN 08/23/18 02/13/19 History [Asmanex] Montelukast [Singulair] 10 mg PO HS 08/23/18 02/13/19 History Ranitidine HCl 300 mg PO HS 08/23/18 02/13/19 History Sodium Bicarbonate Tab 650 mg PO TID@1400,1700,2100 08/23/18 02/13/19 History Cranberry Fruit Extract [Cranberry] 500 mg PO DAILY@139911/19/18 02/13/19 History Midodrine [ProAmatine] 2.5 mg PO HS@209911/19/18 02/13/19 History Omeprazole 40 mg PO DAILY@139911/19/18 02/13/19 History Rising Mg64 W/Ca 1 tab PO DAILY@139911/19/18 02/13/19 History metroNIDAZOLE [Flagyl] 250 mg PO DAILY@139911/19/18 02/13/19 History Albuterol Sulfate [Proair Hfa] 1 - 2 puff INHALATION RT-Q6H PRN 01/31/19 02/13/19 History Budesonide-Formot 160-4.5 Mcg 2 puff INHALATION RT-BID PRN 01/31/19 02/13/19 His tory [Symbicort 160-4.5 Mcg Inhaler] Docusate [Colace] 200 mg PO HS@209901/31/19 02/13/19 History Ergocalciferol (Vitamin D2) 50,000 unit PO MOWEFR 01/31/19 02/13/19 History [Vitamin D2] Potassium Chloride [Klor-Con 20] 20 meq PO BID 01/31/19 02/13/19 History traMADol HCl [Ultram] 50 mg PO Q8HR PRN 01/31/19 02/13/19 History Allergies Allergy/AdvReac Type Severity Reaction Status Date / Time adhesive tape Allergy Rash/Hives Verified 02/13/19 14:08 Sulfa (Sulfonamide Allergy Itching Verified 02/13/19 14:08 Antibiotics) tetracycline Allergy Nausea & Verified 02/13/19 14:08 Vomiting codeine AdvReac Nausea Verified 02/13/19 14:08 Physical Exam Vitals: Vital Signs Temp Pulse Pulse Resp BP BP Pulse Ox 02/13/19 23:00 97.6 F 64 18 129/71 99 02/13/19 18:00 70 18 120/76 100 02/13/19 16:52 97.1 F L 62 18 121/70 100 02/13/19 13:48 98.3 F 78 18 112/71 99 Intake and Output 02/13/19 02/13/19 02/14/19 14:59 22:59 06:59 Other: # Voids 1 Weight 56.699 kg Constitutional: No acute distress, conversant, pleasant, no astrexis Eyes: Anicteric sclerae, moist conjunctiva, no lid-lag Pupils equal round reactive to light ENMT: NC/AT Oropharynx clear, no erythema, exudates Neck: Supple, FROM, no masses, or JVD No carotid bruits No thyromegaly Lungs: Clear to auscultation Clear to percussion Normal respiratory effort, no accessory muscle use Cardiovascular: Heart regular in rate and rhythm, No murmurs, gallops, or rubs Bilateral nonpitting edema over the legs Abdominal: Soft Nontender, no guarding, rebound or rigidity Abdomen moving with respiration Normoactive bowel sounds No hepatomegaly, No splenomegaly No palpable mass No abdominal wall hernia noted Skin: Swelling and redness over the proximal ventral side of the left forearm no drainage or bleeding, no induration, warmth to the touch and very tender., Positive thrill over the left AV graft Otherwise Normal temperature, tone, texture, turgor No induration No subcutaneous nodules No rash, lesions No ulcers Extremities: No digital cyanosis No clubbing Pedal pulses intact and symmetrical Radial pulses intact and symmetrical No calf tenderness Psychiatric: Alert and oriented to person, place and time Appropriate affect fair judgment Neuro Muscles Strength 4/5 in bilateral lower extremities and right upper extremity, however limited over the left upper extremity due to pain with range of motion over the elbow Sensation to light touch grossly present throughout Cranial nerves II-XII grossly intact No focal sensory deficits Lymphatics: no palpable cervical or supraclavicular , or inguinal lymph nodes Results CBC & Chem 7: 02/13/19 14:51 02/13/19 14:51 Labs: Abnormal Lab Results - Last 24 Hours (Table) 02/13/19 02/13/19 02/13/19 Range/Units 14:51 14:51 14:51 RBC 2.99 L (3.80-5.40) m/uL Hgb 9.4 L D (11.4-16.0) gm/dL Hct 28.7 L (34.0-46.0) % Plt Count 134 L (150-450) k/uL APTT 21.0 L (22.0-30.0) sec Chloride 108 H (98-107) mmol/L Carbon Dioxide 12 L (22-30) mmol/L BUN 91 H (7-17) mg/dL Creatinine 6.57 H (0.52-1.04) mg/dL Plasma Lactic Acid Klever (0.7-2.0) mmol/L Total Protein 6.2 L (6.3-8.2) g/dL Urine Protein (Negative) Urine Bacteria (None) /hpf Urine Mucus (None) /hpf 02/13/19 02/13/19 Range/Units 14:51 15:25 RBC (3.80-5.40) m/uL Hgb (11.4-16.0) gm/dL Hct (34.0-46.0) % Plt Count (150-450) k/uL APTT (22.0-30.0) sec Chloride (98-107) mmol/L Carbon Dioxide (22-30) mmol/L BUN (7-17) mg/dL Creatinine (0.52-1.04) mg/dL Plasma Lactic Acid Klever 0.6 L (0.7-2.0) mmol/L Total Protein (6.3-8.2) g/dL Urine Protein Trace H (Negative) Urine Bacteria Occasional H (None) /hpf Urine Mucus Rare H (None) /hpf Thrombosis Risk Factor Assmnt - Choose All That Apply Any of the Below Risk Factors Present?: Yes Other Risk Factors: Yes Each Risk Factor Represents 2 Points: Age 61-74 years Other congenital or acquired thrombophilia - If yes, enter type in comment: No Thrombosis Risk Factor Assessment Total Risk Factor Score: 2 Thrombosis Risk Factor Assessment Level: Low Risk Assessment and Plan Assessment: 73-year-old female with worsening chronic kidney disease patient had left AV graft inserted over her forearm in anticipation of hemodialysis presented due to sudden onset pain swelling and redness over the surgical site for further evaluation. Patient was admitted as an inpatient with anticipated length of stay more than 2 midnight to rule out cellulitis and infection and for surgical reevaluation Plan: Cellulitis of left forearm versus surgical site infection Check blood cultures Start patient on vancomycin Surgery consultation for evaluation of AV graft Pain control Venous duplex ultrasound showed no evidence of acute DVT in left upper extremity Acute kidney injury on chronic kidney disease Avoid nephrotoxic meds Monitor urine output Follow-up renal function Chronic conditions Hypothyroid resume home meds Osteoarthritis pain control History of COPD currently compensated History of brain aneurysm DVT prophylaxis mechanical CODE STATUS: Full code Discussed with: Patient, ER, RN Anticipated length of stay more than [address]: Home A total of 60 minutes was spent on the care of this complex patient more than 50% of the time was spent in counseling and care coordination.
[2019-02-14] MEDS ORDERED: VANCOMYCIN 1,000 MG in SODIUM CHLORIDE 0.9% 250 ML IVPB ONE (01:30)
[2019-02-14] MEDS: MORPHINE SULFATE 2 MG/ML SYRINGE IVP PRN ×4 (01:42→20:18)
[2019-02-14] MEDS: LEVOTHYROXINE 112 MCG TAB PO SCH (06:10)
[2019-02-14 08:40] LABS: Calcium 9.1 mg/dL (8.4-10.2); Potassium 3.7 mmol/L (3.5-5.1)
--- NOTE | 2019-02-14 10:28 | P.PN ---
Subjective Progress Note Date: 02/14/19 Principal diagnosis: Infected AV fistula Patient was seen and examined. No acute events overnight. Patient reports excruciating 9 out of 10 severity pain in her left forearm. Also reports excruciating pain, soreness in the dorsal aspect of her left hand. Patient also complains of chronic pain related to chronic lymphedema. States that she was called by Dr. Wheeler's office yesterday regarding abnormal lab, was already in the ED, unable to follow-up. She denies any chest pain, shortness of breath or palpitations. No nausea or vomiting. No fever or chills. Objective - Vital Signs Vital signs: Vital Signs Temp 98 F 02/14/19 07:00 Pulse 65 02/14/19 07:00 Resp 16 02/14/19 07:00 BP 116/69 02/14/19 07:00 Pulse Ox 99 02/14/19 07:00 Intake & Output 02/13/19 02/14/19 02/14/19 18:59 06:59 18:59 Intake Total 500 Balance 500 Weight 56.699 kg Intake: Intake, IV Titration 300 Amount Sodium Chloride 0.9% 1, 300 000 ml @ 30 mls/hr IV . Q24H [facility] Rx#:[id number] Oral 200 Other: # Voids 2 - Exam General: [non toxic], [mild distress], [appears at stated age] Derm: [warm], [dry] Head: [atraumatic], [normocephalic], [symmetric] Eyes: [EOMI], [no lid lag], [anicteric sclera] Mouth: [no lip lesion], [mucus membranes moist] Cardiovascular: [S1S2 reg], [no murmur] Lungs: [CTA bilateral], [no rhonchi, no rales] , [no accessory muscle use] Abdominal: [soft], [ nontender to palpation], [no guarding], [no appreciable organomegaly] Ext: [no gross muscle atrophy], [2+ bilateral nonpitting edema], [no contractures], [left arm AV graft with surrounding erythema, tenderness to palpation, 2+ radial pulses] Neuro: [no focal neuro deficits] Psych: [Alert], [oriented], [appropriate affect] - Labs CBC & Chem 7: 02/13/19 14:51 02/14/19 07:19 Labs: Abnormal Lab Results - Last 24 Hours (Table) 02/13/19 02/13/19 02/13/19 Range/Units 14:51 14:51 14:51 RBC 2.99 L (3.80-5.40) m/uL Hgb 9.4 L D (11.4-16.0) gm/dL Hct 28.7 L (34.0-46.0) % Plt Count 134 L (150-450) k/uL APTT 21.0 L (22.0-30.0) sec Chloride 108 H (98-107) mmol/L Carbon Dioxide 12 L (22-30) mmol/L BUN 91 H (7-17) mg/dL Creatinine 6.57 H (0.52-1.04) mg/dL Glucose (74-99) mg/dL Plasma Lactic Acid Klever (0.7-2.0) mmol/L Total Protein 6.2 L (6.3-8.2) g/dL Urine Protein (Negative) Urine Bacteria (None) /hpf Urine Mucus (None) /hpf 02/13/19 02/13/19 02/14/19 Range/Units 14:51 15:25 07:19 RBC (3.80-5.40) m/uL Hgb (11.4-16.0) gm/dL Hct (34.0-46.0) % Plt Count (150-450) k/uL APTT (22.0-30.0) sec Chloride 112 H (98-107) mmol/L Carbon Dioxide 12 L (22-30) mmol/L BUN 84 H (7-17) mg/dL Creatinine 6.15 H (0.52-1.04) mg/dL Glucose 100 H (74-99) mg/dL Plasma Lactic Acid Klever 0.6 L (0.7-2.0) mmol/L Total Protein (6.3-8.2) g/dL Urine Protein Trace H (Negative) Urine Bacteria Occasional H (None) /hpf Urine Mucus Rare H (None) /hpf Assessment and Plan Assessment: Assessment and Plan Cellulitis of left forearm AV graft Acute kidney injury on chronic kidney disease Anemia chronic disease Metabolic acidosis likely secondary to chronic kidney disease Chronic conditions: Hypothyroidism, COPD Patient is afebrile with no leukocytosis. Lactic acid negative. Does not meet sepsis criteria. Duplex negative for DVT. Plans: Started on vancomycin. Pain control with tramadol, morphine as needed. Tylenol as needed for fever. Follow blood cultures. Follow vascular surgery consultation. BUN 84, creatinine 6.15, GFR 6. ESRD in plans for dialysis in the near future. Plans: Monitor and replace electrolytes. Avoid nephrotoxins. Follow nephrology consultation. Hemoglobin 9.4. Normocytic. Likely secondary to chronic kidney disease. Receives Procrit injections in the outpatient setting. Plans: Daily CBC. Transfuse if hemoglobin less than 7. HCO3 12. Likely secondary to chronic kidney disease. Plans: Continue sodium bicarbonate tablet. Follow nephrology consultation. [Patient admitted for worsening renal function and possible cellulitis and infection of recent AV graft. She is on IV antibiotics. Vascular surgery and nephrology consulted. Patient is pending clinical improvement. Likely DC in 1- 2 days.]
[2019-02-14] MEDS: metroNIDAZOLE 250 MG TABLET PO SCH (12:52)
[2019-02-14] MEDS: DOCUSATE 100 MG CAP PO SCH ×2 (12:52→20:16)
[2019-02-14] MEDS: LORATADINE 10 MG TAB PO SCH (12:52)
[2019-02-14] MEDS: CALCITRIOL 0.25 MCG CAP PO SCH ×2 (12:52→20:25)
[2019-02-14] MEDS: SODIUM BICARBONATE TAB 650 MG TAB PO SCH ×3 (12:52→20:16)
[2019-02-14] MEDS: FLUoxetine HCL 20 MG CAP PO SCH ×2 (12:52→20:16)
[2019-02-14] MEDS: MIDODRINE 5 MG TAB PO SCH ×2 (12:53→20:16)
[2019-02-14] MEDS: PANTOPRAZOLE 40 MG TABLET PO SCH (12:53)
[2019-02-14] MEDS: HYDROmorphone 0.5 MG/0.5 ML SYRINGE IVP PRN ×2 (12:53→16:19)
--- NOTE | 2019-02-14 13:05 | P.CON ---
Consult Note - . Consult date: 02/14/19 Assessment/Plan:: Patient is a 73-year-old female who a proximal 5 days prior underwent creation of a loop AV graft in the left brachial artery to basilic vein position. She presented to the emergency room yesterday with concerns over swelling and inner forearm area. She denied any chills or fevers or drainage from surgical wound. She denies any arm or hand pain/numbness. Concern is expressed for possible infectious process. Since her hospitalization the swelling in her forearm area has diminished greatly. Vital signs are stable patient is afebrile. Palpable left radial pulse is noted. Surgical wound is clean, dry and healing normally. There is no cellulitis or other signs or symptoms of infectious process. Excellent pulse and bruit are noted within the graft. Review of laboratory values demonstrates the patient to have a normal white count. Impression: Normal appearing postoperative appearance of the left forearm AV graft with no suspicion of infectious complication at this time.
[2019-02-14 13:11] LABS: Magnesium 2.1 mg/dL (1.6-2.3)
[2019-02-14 13:30] LABS: Phosphorus 10.4 mg/dL (2.5-4.5)
[2019-02-14 14:56] LABS: T4, Free (Free Thyroxine) 1.17 ng/dL (0.78-2.19)
[2019-02-14] MEDS: DEXTROSE 5% IN WATER 1,000 ML with SODIUM BICARB (1 MEQ/ML) 100 ML IV SCH (15:18)
[2019-02-14] MEDS: SODIUM CHLORIDE 0.9% 1,000 ML IV SCH (17:36)
[2019-02-14] MEDS: MONTELUKAST 10 MG TAB PO SCH (20:16)
[2019-02-14] MEDS: FAMOTIDINE 20 MG TAB PO SCH (20:16)
--- NOTE | 2019-02-14 22:49 | CONS ---
CONSULTATION This patient is a 73-year-old female with a history of CKD, NKF stage IV, secondary to nephrosclerosis and likely interstitial nephropathy. Patient has a baseline creatinine of about 2.6 mg/dL as of 12/31/2018. She was admitted to the hospital with complaints of pain at the site of her recent vascular surgery. It looks like the patient had an AV graft placed about 5 days ago. Patient denies any fever. She is complaining of pain all over. She has not been eating much over the past 2 weeks. Her serum creatinine this admission is all the way up to 6.5. Patient was also quite acidotic with CO2 at 12. She denied any diarrhea, nausea or vomiting. PAST MEDICAL HISTORY: 1. CKD, stage IV. 2. History of COPD. 3. Osteoarthritis. 4. Kidney stones. 5. Recent urinary intervention. 6. History of pulmonary fibrosis. 7. Chronic lymphedema. 8. Hypothyroidism. PAST SURGICAL HISTORY: 1. Bariatric surgery. 2. Kye-en-Y bladder and rectal suspension. 3. Carpal tunnel release. 4. Left arm loop AV graft on 02/08/2019. SOCIAL HISTORY: Negative for smoking, drug abuse or alcohol abuse. MEDICATIONS: Medications at home included: 1. Albuterol. 2. Bumex. 3. Calcitriol. 4. Colace. 5. Synthroid. 6. Midodrine. 7. Singulair. 8. Sodium bicarb. 9. Vitamin D2. 10.Potassium. 11.Ultram. ALLERGIES: ALLERGIES include: 1. SULFA. 2. ADHESIVE TAPE. 3. TETRACYCLINE. 4. CODEINE. PHYSICAL EXAMINATION: Patient is currently comfortable. She is lethargic, weak. She is not in any acute distress. Blood pressure is 112/72, heart rate 69 per minute. Patient is afebrile. EXAMINATION OF THE HEART: S1 and S2. EXAMINATION OF LUNGS: Bilateral breath sounds are heard. ABDOMEN: Soft, non-tender. Examination of lower extremities shows lymphedema, bilateral lower extremities. Left forearm AV graft is noted. There is some induration noted. Mild erythema. No evidence of severe infection noted at this time. LABS: Sodium 140, potassium 3.7, chloride 112. CO2 is 12. BUN 84, serum creatinine 6.15, phosphorus 10.4, magnesium 2.1. ASSESSMENT: 1. Acute kidney injury, most likely prerenal. Rule out obstructive uropathy as well. Monitor urine output. Start IV fluids. Check ultrasound of the kidneys. 2. Severe metabolic acidosis secondary to advanced renal failure. 3. Hyperphosphatemia secondary to advanced renal failure. Add phosphate binders once patient is eating. 4. Hypothyroidism. TSH is 5.2. 5. CKD, stage 4, baseline cr 2.6-2.7mg/dL 6. S/p Left arm AVG PLAN: Start IV bicarb. Check ultrasound of the kidneys. Add phosphate binders. Repeat labs in a.m. Continue with the Rocaltrol for now. Thank you for this consultation. Will continue to follow the patient with you during her hospitalization. MMODL / IJN: [id number] / MARCELO
[2019-02-15] MEDS: MORPHINE SULFATE 2 MG/ML SYRINGE IVP PRN ×2 (00:22→05:32)
[2019-02-15] MEDS: ONDANSETRON 4 MG/2 ML VIAL IVP PRN ×5 (00:30→23:30)
[2019-02-15] MEDS: DEXTROSE 5% IN WATER 1,000 ML with SODIUM BICARB (1 MEQ/ML) 100 ML IV SCH ×2 (01:45→18:18)
[2019-02-15] MEDS: LEVOTHYROXINE 112 MCG TAB PO SCH (05:32)
[2019-02-15] MEDS ORDERED: VANCOMYCIN 1,000 MG in SODIUM CHLORIDE 0.9% 250 ML IVPB ONE (06:00)
[2019-02-15] MEDS: CALCIUM ACETATE 667 MG CAP PO SCH ×3 (08:24→18:19)
[2019-02-15 08:29] LABS: HCT 25.4 % (34.0-46.0); HGB 8.6 gm/dL (11.4-16.0); MCH 31.5 pg (25.0-35.0); MCHC 34.1 g/dL (31.0-37.0); MCV 92.6 fL (80.0-100.0); Mean Platelet Volume 7.6; Platelet Count 147 k/uL (150-450); RBC 2.74 m/uL (3.80-5.40); RDW 13.9 % (11.5-15.5); WBC 8.3 k/uL (3.8-10.6)
[2019-02-15 08:42] LABS: Calcium 8.9 mg/dL (8.4-10.2); Magnesium 1.7 mg/dL (1.6-2.3); Phosphorus 7.4 mg/dL (2.5-4.5); Total Bilirubin 0.3 mg/dL (0.2-1.3); Total Protein 5.5 g/dL (6.3-8.2)
[2019-02-15] MEDS ORDERED: POTASSIUM CHLORIDE ER 20 MEQ TAB.ER PO STA (09:14)
--- NOTE | 2019-02-15 09:20 | US ---
EXAMINATION TYPE: US renals and bladder DATE OF EXAM: 02/15/2019 COMPARISON: NONE CLINICAL HISTORY: renal failure. Renal failure, history of kidney stones EXAM MEASUREMENTS: Right Kidney: 10.2 x 3.9 x 3.7cm Left Kidney: 8.5 x 4.3 x 2.8 cm Technical limitations due to large amount of overlying bowel content Right Kidney: hydronephrosis. cystic area lower pole = 1.3 x 1.2 x 1.0cm Left Kidney: stones noted with largest = 0.7cm Bladder: appears wnl Bilateral Jets seen: no There is no evidence for hydronephrosis on the left. No nephrolithiasis is seen discretely on the ri ght. No suspicious masses are identified. The urinary bladder is anechoic. Bilateral ureteral jets are not seen. IMPRESSION: 1. Multiple left renal calculi with the largest measuring up to 0.7 cm. Some of the smaller calculi a re ill-defined. 2. Mild right hydronephrosis. No obstructing calculus on ultrasound is seen. 3. Simple appearing 1.3 cm right renal cyst.
--- NOTE | 2019-02-15 13:32 | P.PN ---
Subjective Progress Note Date: 02/15/19 Principal diagnosis: Nausea and vomiting, pain Patient was seen and examined. No acute events overnight. Patient reports multiple episodes of nausea and nonbilious nonbloody vomiting since yesterday. This was witnessed during the encounter. Patient denies any chest pain, [place] rtness of breath or palpitations. No fever or chills. Patient reports continued myalgias worsen her bilateral lower extremities that prevent her from walking. Objective - Vital Signs Vital signs: Vital Signs Temp 98.3 F 02/15/19 07:00 Pulse 67 02/15/19 08:10 Resp 16 02/15/19 08:10 BP 105/62 02/15/19 07:00 Pulse Ox 99 02/15/19 07:00 Intake & Output 02/14/19 02/15/19 02/15/19 18:59 06:59 18:59 Intake Total 410 1200 Balance 410 1200 Intake: Intake, IV Titration 210 1200 Amount Dextrose 5% in Water 1, 1200 000 ml @ 100 mls/hr IV . Q11H [facility] with Sodium Bicarb (1 Meq/ml) 100 ml Rx#:[id number] Sodium Chloride 0.9% 1, 210 000 ml @ 30 mls/hr IV . Q24H [facility] Rx#:[id number] Oral 200 - Exam General: [non toxic], [mild distress], [appears at stated age] Derm: [warm], [dry] Head: [atraumatic], [normocephalic], [symmetric] Eyes: [EOMI], [no lid lag], [anicteric sclera] Mouth: [no lip lesion], [mucus membranes moist] Cardiovascular: [S1S2 reg], [no murmur] Lungs: [CTA bilateral], [no rhonchi, no rales] , [no accessory muscle use] Abdominal: [soft], [ nontender to palpation], [no guarding], [no appreciable organomegaly] Ext: [no gross muscle atrophy], [2+ bilateral nonpitting edema], [no contractures], [left arm AV graft with improved erythema, tenderness to palpation, 2+ radial pulses] Neuro: [no focal neuro deficits] Psych: [Alert], [oriented], [appropriate affect] - Labs CBC & Chem 7: 02/15/19 08:11 02/15/19 08:11 Labs: Abnormal Lab Results - Last 24 Hours (Table) 02/14/19 02/15/19 02/15/19 Range/Units 07:19 08:11 08:11 RBC 2.74 L (3.80-5.40) m/uL Hgb 8.6 L (11.4-16.0) gm/dL Hct 25.4 L (34.0-46.0) % Plt Count 147 L (150-450) k/uL Sodium 136 L (137-145) mmol/L Potassium 3.0 L (3.5-5.1) mmol/L Carbon Dioxide 19 L (22-30) mmol/L BUN 78 H (7-17) mg/dL Creatinine 4.79 H (0.52-1.04) mg/dL Glucose 138 H (74-99) mg/dL Phosphorus 10.4 H* 7.4 H (2.5-4.5) mg/dL Creatine Kinase 21 L (30-135) U/L Total Protein 5.5 L (6.3-8.2) g/dL Albumin 3.0 L (3.5-5.0) g/dL TSH 5.210 H (0.465-4.680) mIU/L Assessment and Plan Assessment: Assessment and Plan Myalgias due to hyperphosphatemia Hypokalemia Subclinical hypothyroidism Acute kidney injury on chronic kidney disease Anemia chronic disease Metabolic acidosis likely secondary to chronic kidney disease Chronic conditions: Hypothyroidism, COPD Magnesium 1.7. Phosphorus 10.4-7.4. CPK 21. TSH 5.210, free T4 within normal limits. Likely due to hyperphosphatemia. Evaluated by PT, recommends home with home care, will continue to work with patient. Plans: Continue PT therapy. Calcium acetate started by nephrology. Repeat magnesium and phosphorus in the morning. Will discontinue morphine due to nausea and vomiting, restart home medication of tramadol. Potassium 3.0. Plans: Replace via protocol. Repeat BMP in the morning. TSH 5.210, free T4 within normal limits. Plans: Repeat TSH in 6 weeks. BUN 84-78, creatinine 6.15-4.79, GFR 6-8. ESRD in plans for dialysis in the near future. Plans: Monitor and replace electrolytes. Avoid nephrotoxins. Follow nephrology consultation. Hemoglobin 9.4-8.6. Normocytic. Likely secondary to chronic kidney disease. Receives Procrit injections in the outpatient setting. Plans: Daily CBC. Transfuse if hemoglobin less than 7. HCO3 12-19. Likely secondary to chronic kidney disease. Plans: Continue sodium bicarbonate tablet. Infuse sodium bicarbonate through IV per nephrology. Follow nephrology consultation. BMP in the morning. [AV graft evaluated by vascular surgery, normal findings, DC IV antibiotics. Patient with nausea and vomiting today along with severe myalgias and hypokalemia. Pending clinical improvement. Likely DC in 1-2 days.]
--- NOTE | 2019-02-15 15:53 | P.PN ---
Subjective Progress Note Date: 02/15/19 Principal diagnosis: ESRD, left upper extremity swelling Patient seen and examined. States feeling nauseous this morning and had a bout of vomiting and was changed from her pain medications and feels better this pm. She is complaining of joint pain all over as well. Objective - Vital Signs Vital signs: Vital Signs Temp 98.7 F 02/15/19 14:08 Pulse 64 02/15/19 14:08 Resp 16 02/15/19 14:08 BP 105/65 02/15/19 14:08 Pulse Ox 96 02/15/19 14:08 Intake & Output 02/14/19 02/15/19 02/15/19 18:59 06:59 18:59 Intake Total 410 1200 Balance 410 1200 Intake: Intake, IV Titration 210 1200 Amount Dextrose 5% in Water 1, 1200 000 ml @ 100 mls/hr IV . Q11H CHANEL with Sodium Bicarb (1 Meq/ml) 100 ml Rx#:[id number] Sodium Chloride 0.9% 1, 210 000 ml @ 30 mls/hr IV . Q24H CHANEL Rx#:[id number] Oral 200 Other: # Voids 2 - Exam left upper extremity AVG is intact, with good thrill and augments well. There is some edema which is normal post op changes. +TTP bilateral wrists. Palpable radial pulses bilaterally. - Constitutional General appearance: Present: average body habitus, cooperative, no acute distress - EENT Eyes: Present: PERRLA - Labs CBC & Chem 7: 02/15/19 08:11 02/15/19 08:11 Labs: Abnormal Lab Results - Last 24 Hours (Table) 02/15/19 02/15/19 Range/Units 08:11 08:11 RBC 2.74 L (3.80-5.40) m/uL Hgb 8.6 L (11.4-16.0) gm/dL Hct 25.4 L (34.0-46.0) % Plt Count 147 L (150-450) k/uL Sodium 136 L (137-145) mmol/L Potassium 3.0 L (3.5-5.1) mmol/L Carbon Dioxide 19 L (22-30) mmol/L BUN 78 H (7-17) mg/dL Creatinine 4.79 H (0.52-1.04) mg/dL Glucose 138 H (74-99) mg/dL Phosphorus 7.4 H (2.5-4.5) mg/dL Total Protein 5.5 L (6.3-8.2) g/dL Albumin 3.0 L (3.5-5.0) g/dL Assessment and Plan Assessment: 1. Chronic renal failure 2. History of left upper extremity loop AVG 3. Left upper extremity edema - normal post op changes 4. Nausea, vomiting, joint pains secondary to chronic renal failure. Plan: keep arm elevated follow up in office as previously scheduled. Notify me if tunneled catheter is needed at this stay.
[2019-02-15] MEDS: CALCITRIOL 0.25 MCG CAP PO SCH ×2 (15:55→21:48)
[2019-02-15] MEDS: metroNIDAZOLE 250 MG TABLET PO SCH (15:56)
[2019-02-15] MEDS: DOCUSATE 100 MG CAP PO SCH ×2 (15:56→21:47)
[2019-02-15] MEDS: MIDODRINE 5 MG TAB PO SCH ×2 (15:56→21:47)
[2019-02-15] MEDS: SODIUM BICARBONATE TAB 650 MG TAB PO SCH ×3 (15:56→21:48)
[2019-02-15] MEDS: FLUoxetine HCL 20 MG CAP PO SCH ×2 (15:56→21:47)
[2019-02-15] MEDS: LORATADINE 10 MG TAB PO SCH (15:56)
[2019-02-15] MEDS: PANTOPRAZOLE 40 MG TABLET PO SCH (15:57)
[2019-02-15] MEDS: traMADol 50 MG TAB PO SCH (18:19)
--- NOTE | 2019-02-15 18:53 | PN ---
PROGRESS NOTE Patient is seen for followup for acute kidney injury on top of chronic kidney disease. She was admitted to the hospital with pain over her new access in the left arm. She also had increased weakness and decreased oral intake. Serum creatinine had gone up from baseline of about 2.7 mg/dL to 6.57 mg/dL. The patient was also quite acidotic. She has been started on IV bicarb. Her renal function has improved. Creatinine is down to 4.79. The patient also has a history of nephrolithiasis and recently had urological procedure with lithotripsy. She has had good urine output. Ultrasound shows no evidence of hydronephrosis. On examination today, the patient is comfortable. Blood pressure is 105/62, heart rate 67 per minute. She is afebrile. EXAMINATION OF THE HEART: S1 and S2. EXAMINATION OF LUNGS: Bilateral breath sounds are heard. ABDOMEN: Soft, non-tender. Examination of lower extremities shows chronic skin changes. Patient has chronic lymphedema. Currently there is no significant pitting edema noted. HAIR DESIGNER exam is grossly intact. Labs show sodium 136, potassium 3.0, BUN 78, serum creatinine 4.79, phosphorus 7.4. ASSESSMENT: 1. Acute kidney injury, prerenal, currently improving. Continue with IV fluids. 2. Chronic kidney disease, NKF stage IV. Baseline creatinine about 2.6 mg/dL as of September and December of 2018 secondary to nephrosclerosis and chronic interstitial nephropathy. 3. Status post left upper arm AV graft. 4. Metabolic acidosis, anion gap secondary to renal failure, currently improved. Patient is maintained on IV bicarb. 5. Hyperphosphatemia from renal failure, maintained on phosphate binders, currently improved with improving renal function. PLAN: Continue with the IV bicarb. Replace potassium. Switch to normal saline tomorrow depending on labs. If renal function continues to improve, patient will not need to start renal replacement therapy this admission. MMODL / IJN: [id number] /
[2019-02-15] MEDS: FAMOTIDINE 20 MG TAB PO SCH (21:47)
[2019-02-15] MEDS: MONTELUKAST 10 MG TAB PO SCH (21:48)
[2019-02-15] MEDS: SODIUM CHLORIDE 0.9% 1,000 ML IV SCH (21:49)
[2019-02-16] MEDS: traMADol 50 MG TAB PO SCH ×2 (00:01→05:27)
[2019-02-16] MEDS: DEXTROSE 5% IN WATER 1,000 ML with SODIUM BICARB (1 MEQ/ML) 100 ML IV SCH (00:03)
[2019-02-16] MEDS: METOCLOPRAMIDE 5 MG/ML 2 ML VIAL IVP PRN ×2 (04:25→10:25)
[2019-02-16] MEDS: LEVOTHYROXINE 112 MCG TAB PO SCH (05:27)
[2019-02-16 07:26] LABS: Basophils # (A) 0.1 k/uL (0-0.2); Basophils % (A) 1 %; Eosinophils # (A) 0.2 k/uL (0-0.7); Eosinophils % (A) 3 %; HGB 7.9 gm/dL (11.4-16.0); Lymphocytes # (A) 1.3 k/uL (1.0-4.8); Lymphocytes % (A) 22 %; MCH 31.8 pg (25.0-35.0); MCHC 34.3 g/dL (31.0-37.0); MCV 92.6 fL (80.0-100.0); Mean Platelet Volume 7.7; Monocytes # (A) 0.6 k/uL (0-1.0); Monocytes % (A) 10 %; Neutrophils # (A) 3.9 k/uL (1.3-7.7); Neutrophils % (A) 64 %; Platelet Count 133 k/uL (150-450); RBC 2.48 m/uL (3.80-5.40); RDW 13.6 % (11.5-15.5); WBC 6.1 k/uL (3.8-10.6)
[2019-02-16 07:44] LABS: Calcium 8.7 mg/dL (8.4-10.2); Magnesium 1.6 mg/dL (1.6-2.3); Phosphorus 6.1 mg/dL (2.5-4.5); Potassium 3.2 mmol/L (3.5-5.1)
[2019-02-16] MEDS ORDERED: Potassium Replacement Protocol 1 EACH MISC MISCELLANE PRN (07:59)
[2019-02-16] MEDS ORDERED: POTASSIUM CHLORIDE ER 20 MEQ TAB.ER PO STA (08:01)
--- NOTE | 2019-02-16 08:03 | P.PN ---
Subjective Progress Note Date: 02/16/19 Principal diagnosis: This is a 73-year-old female known with chronic kidney disease stage IV secondary to nephrosclerosis and possible chronic interstitial nephritis. She is admitted after access surgery on her left forearm with worsening of acute kidney injury. She has been hydrated. For the first time today she is feeling somewhat better she had nausea vomiting yesterday. She is unable to walk, in spite off the physiotherapy helping her. Supposedly before admission she was independent. She denies any dizziness chest pain shortness of breath. No numbness stenting. Objective - Vital Signs Vital signs: Vital Signs Temp 98.1 F 02/16/19 00:57 Pulse 67 02/16/19 00:57 Resp 18 02/16/19 04:10 BP 131/78 02/16/19 00:57 Pulse Ox 98 02/16/19 00:57 Intake & Output 02/15/19 02/16/19 02/16/19 18:59 06:59 18:59 Other: # Voids 2 1 On examination she is somewhat anxious but awake alert oriented HEENT exam no JVP neck is supple no facial asymmetry Lungs are clear to auscultation good air entry bilaterally Heart sounds are unremarkable for any murmur rub gallop Abdomen soft nontender Extremity exam was no edema The left forearm axis is likely a graft and looks uninflamed Neurologically awake alert oriented no asterixis - Labs CBC & Chem 7: 02/16/19 07:05 02/16/19 07:05 Labs: Abnormal Lab Results - Last 24 Hours (Table) 02/15/19 02/15/19 02/16/19 Range/Units 08:11 08:11 07:05 RBC 2.74 L 2.48 L (3.80-5.40) m/uL Hgb 8.6 L 7.9 L (11.4-16.0) gm/dL Hct 25.4 L 23.0 L (34.0-46.0) % Plt Count 147 L 133 L (150-450) k/uL Sodium 136 L (137-145) mmol/L Potassium 3.0 L (3.5-5.1) mmol/L Chloride (98-107) mmol/L Carbon Dioxide 19 L (22-30) mmol/L BUN 78 H (7-17) mg/dL Creatinine 4.79 H (0.52-1.04) mg/dL Glucose 138 H (74-99) mg/dL Phosphorus 7.4 H (2.5-4.5) mg/dL Total Protein 5.5 L (6.3-8.2) g/dL Albumin 3.0 L (3.5-5.0) g/dL 02/16/19 Range/Units 07:05 RBC (3.80-5.40) m/uL Hgb (11.4-16.0) gm/dL Hct (34.0-46.0) % Plt Count (150-450) k/uL Sodium 135 L (137-145) mmol/L Potassium 3.2 L (3.5-5.1) mmol/L Chloride 96 L (98-107) mmol/L Carbon Dioxide (22-30) mmol/L BUN 70 H (7-17) mg/dL Creatinine 4.05 H (0.52-1.04) mg/dL Glucose 139 H (74-99) mg/dL Phosphorus 6.1 H (2.5-4.5) mg/dL Total Protein (6.3-8.2) g/dL Albumin (3.5-5.0) g/dL Assessment and Plan Assessment: Impression 1. Acute kidney injury post-up graft placement in left upper arm. Creatinine is improving. Urine output is not documented. She is on IV fluids #2. Kidney stones bilaterally with mild right Morrison seen on ultrasound. No abdominal pain and flank pain. 3. Mild right hydronephrosis. There is some history of bladder suspension 4. Acidosis improving, now metabolic alkalosis 5. History of pulmonary fibrosis, 6. History of bariatric surgery 7. Status post left forearm graft for dialysis access. 8. Hypokalemia potassium is 3.2, improved from 3. Etiology is saline infusion, sodium bicarb and mild metabolic alkalosis and reduced intake Recommendation 1. Maintain current medications 2. Suggest physical therapy as she has deconditioned since admission. 3. Monitor labs. 4. Continue IV fluids 5. Hypokalemia to be treated with 40 mEq of by mouth KCl 6. Redo sodium bicarbonate from 650 3 times a day 2 325 twice a day
[2019-02-16 08:35] VITALS: BP 97/58; PULSE 73; RESP 16; TEMP 98.3
[2019-02-16] MEDS: CALCIUM ACETATE 667 MG CAP PO SCH ×2 (08:55→13:02)
[2019-02-16] MEDS ORDERED: SODIUM BICARBONATE TAB 650 MG TAB PO SCH (09:00)
--- NOTE | 2019-02-16 12:17 | P.DS ---
Providers Date of admission: 02/13/19 19:59 Expected date of discharge: 02/16/19 Attending physician: Vicente Armendariz MD Consults: 02/14/19 01:29 Consult Physician Routine Consulting Provider: Alejandro Montanez Consult Reason/Comments: left AV graft re evaluation Do you want consulting provider notified?: Yes 02/14/19 09:55 Consult Physician Routine Consulting Provider: Augustus Pace Consult Reason/Comments: ESRD Do you want consulting provider notified?: Yes Primary care physician: [facility] Hospital Course: 73-year-old female with history of chronic kidney disease, hypothyroid, brain aneurysm Patient presented to the hospital with 1 day history of pain and redness over the left forearm at site of recent insertion of AV graft in preparation for hemodialysis. Patient reports AV graft being placed 5 days prior to presentation. Patient was doing well up until today when she noticed increased redness swelling and painful range of motion of the left elbow with severe tenderness over the surgical site reported pain of 10 out of 10 in severity shooting sharp pain. Vascular duplex was done which ruled out DVT. There is initially concerns of cellulitis and patient was started on vancomycin. Vascular surgery was consulted and stated that this was normal changes postsurgically and that AV graft was not infected. Vancomycin was then discontinued. Patient continued to report severe myalgias in her bilateral hands and feet during admission. Magnesium was checked and was within normal limits. CPK was 21, within normal limits. She was noted to have a very high phosphorus of 10.4. Nephrology was consulted and she was started on calcium acetate. Patient was also noted to be acidotic with bicarbonate of 12 on admission. She was continued on sodium bicarbonate tablets along with infusion of sodium bicarbonate through IV. Her bicarbonate level was within normal limits on discharge. Her creatinine progressively improved from 6.57-4.05 with simple hydration. Her phosphorus went from 10.4-6.1 after initiating therapy. Patient was seen and examined prior to discharge. No acute events overnight. Patient reports significant improvement in her pain since admission. She states that her bilateral forearm pain and feet pain are gone now. She denies any chest pain, shortness of breath or palpitations. Had an episode of vomiting this morning, associated with poor appetite and pain medication. Patient is looking forward to going home. General: [non toxic], [mild distress], [appears at stated age] Derm: [warm], [dry] Head: [atraumatic], [normocephalic], [symmetric] Eyes: [EOMI], [no lid lag], [anicteric sclera] Mouth: [no lip lesion], [mucus membranes moist] Cardiovascular: [S1S2 reg], [no murmur] Lungs: [CTA bilateral], [no rhonchi, no rales] , [no accessory muscle use] Abdominal: [soft], [ nontender to palpation], [no guarding], [no appreciable organomegaly] Ext: [no gross muscle atrophy], [2+ bilateral nonpitting edema], [no contractures], [left arm AV graft with improved erythema, tenderness to palpation, 2+ radial pulses] Neuro: [no focal neuro deficits] Psych: [Alert], [oriented], [appropriate affect] Assessment and Plan Myalgias due to hyperphosphatemia Hypokalemia Subclinical hypothyroidism Acute kidney injury on chronic kidney disease Anemia chronic disease Metabolic acidosis likely secondary to chronic kidney disease Chronic conditions: Hypothyroidism, COPD Magnesium 2.1-1.6. Phosphorus 10.4-7.4-6.1. CPK 21. TSH 5.210, free T4 within normal limits. Likely due to hyperphosphatemia. Evaluated by PT, recommends home with home care, will continue to work with patient. Plans: Continue PT therapy. Calcium acetate started by nephrology. Asked skilled nursing case manager to ambulate patient along the hallway to see if okay for discharge. Potassium 3.2. Plans: Replace via protocol. Repeat BMP in 3 days. TSH 5.210, free T4 within normal limits. Plans: Repeat TSH in 6 weeks. BUN 84-78-70, creatinine 6.15-4.79-4.05, GFR 6-8-10. ESRD in plans for dialysis in the near future. Plans: Monitor and replace electrolytes. Avoid nephrotoxins. Follow nephrology consultation. Hemoglobin 9.4-8.6-7.9. Normocytic. Likely secondary to chronic kidney disease along with dilutional. Receives Procrit injections in the outpatient setting. Plans: Daily CBC. Transfuse if hemoglobin less than 7. HCO3 96-09-mmgpcg normal limits. Likely secondary to chronic kidney disease. Plans: Continue sodium bicarbonate tablet. Infuse sodium bicarbonate through IV per nephrology. Follow nephrology consultation. BMP in the morning. [AV graft evaluated by vascular surgery, normal findings, DC IV antibiotics. Patient nausea and myalgias have improved with electrolyte correction. Likely DC today.] Pertinent Studies: Venous duplex, renal ultrasound Patient Condition at Discharge: Stable Plan - Discharge Summary Discharge Rx Participant: Yes New Discharge Prescriptions: New Calcium Acetate [PhosLo] 667 mg PO TID-W/MEALS #90 cap Continue Montelukast [Singulair] 10 mg PO HS Mometasone Inhalr 220 Mcg/Puff [Asmanex] 2 puff INHALATION RT-HS PRN PRN Reason: Shortness Of Breath Loratadine [Alavert] 10 mg PO DAILY@1400 Albuterol Nebulized [Ventolin Nebulized] 2.5 mg INHALATION RT-TID PRN PRN Reason: sob FLUoxetine HCL [PROzac] 20 mg PO BID@1400,2100 Docusate [Colace] 100 mg PO DAILY@1400 Sodium Bicarbonate Tab 650 mg PO TID@1400,1700,2100 Midodrine [ProAmatine] 5 mg PO DAILY@1400 Calcitriol 0.5 mcg PO BID@1400,2100 Bumetanide [BUMEX] 1 mg PO DAILY@1400 Levothyroxine Sodium [Synthroid] 224 mcg PO MURO Levothyroxine Sodium [Synthroid] 112 mcg PO MOTUWETHFRSA Fluticasone/Salmeterol [Advair 250-50 Diskus] 1 puff INHALATION RT-BID PRN PRN Reason: Shortness Of Breath Midodrine [ProAmatine] 2.5 mg PO HS@2100 metroNIDAZOLE [Flagyl] 250 mg PO DAILY@1400 Rising Mg64 W/Ca 1 tab PO DAILY@1400 Omeprazole 40 mg PO DAILY@1400 Docusate [Colace] 200 mg PO HS@2100 Ergocalciferol (Vitamin D2) [Vitamin D2] 50,000 unit PO MOWEFR Potassium Chloride [Klor-Con 20] 20 meq PO BID traMADol HCl [Ultram] 50 mg PO Q8HR PRN PRN Reason: Pain Budesonide-Formot 160-4.5 Mcg [Symbicort 160-4.5 Mcg Inhaler] 2 puff INHALATION RT-BID PRN PRN Reason: sob Albuterol Sulfate [Proair Hfa] 1 - 2 puff INHALATION RT-Q6H PRN PRN Reason: Shortness Of Breath Discontinued Ranitidine HCl 300 mg PO HS Cranberry Fruit Extract [Cranberry] 500 mg PO DAILY@1400 Discharge Medication List Albuterol Nebulized [Ventolin Nebulized] 2.5 mg INHALATION RT-TID PRN 08/23/18 [History] Bumetanide [BUMEX] 1 mg PO DAILY@139908/23/18 [History] Calcitriol 0.5 mcg PO BID@1399,209908/23/18 [History] Docusate [Colace] 100 mg PO DAILY@139908/23/18 [History] FLUoxetine HCL [PROzac] 20 mg PO BID@1399,209908/23/18 [History] Fluticasone/Salmeterol [Advair 250-50 Diskus] 1 puff INHALATION RT-BID PRN 08/23/18 [History] Levothyroxine Sodium [Synthroid] 112 mcg PO MOTUWETHFRSA 08/23/18 [History] Levothyroxine Sodium [Synthroid] 224 mcg PO MURO 08/23/18 [History] Loratadine [Alavert] 10 mg PO DAILY@139908/23/18 [History] Midodrine [ProAmatine] 5 mg PO DAILY@139908/23/18 [History] Mometasone Inhalr 220 Mcg/Puff [Asmanex] 2 puff INHALATION RT-HS PRN 08/23/18 [History] Montelukast [Singulair] 10 mg PO HS 08/23/18 [History] Sodium Bicarbonate Tab 650 mg PO TID@1400,1700,209908/23/18 [History] Midodrine [ProAmatine] 2.5 mg PO HS@209911/19/18 [History] Omeprazole 40 mg PO DAILY@139911/19/18 [History] Rising Mg64 W/Ca 1 tab PO DAILY@139911/19/18 [History] metroNIDAZOLE [Flagyl] 250 mg PO DAILY@139911/19/18 [History] Albuterol Sulfate [Proair Hfa] 1 - 2 puff INHALATION RT-Q6H PRN 01/31/19 [History] Budesonide-Formot 160-4.5 Mcg [Symbicort 160-4.5 Mcg Inhaler] 2 puff INHALATION RT-BID PRN 01/31/19 [History] Docusate [Colace] 200 mg PO HS@2100 01/31/19 [History] Ergocalciferol (Vitamin D2) [Vitamin D2] 50,000 unit PO MOWEFR 01/31/19 [History] Potassium Chloride [Klor-Con 20] 20 meq PO BID 01/31/19 [History] traMADol HCl [Ultram] 50 mg PO Q8HR PRN 01/31/19 [History] Calcium Acetate [PhosLo] 667 mg PO TID-W/MEALS #90 cap 02/16/19 [Rx] Follow up Appointment(s)/Referral(s): Terrence Kwan MD [Primary Care Provider] - 1-2 days Abbey Wheeler MD [STAFF PHYSICIAN] - 1 Week Alejandro Montanez DO [STAFF PHYSICIAN] - 1 Week Ambulatory/Diagnostic Orders: Complete Blood Count w/diff [LAB.AMB] Time Frame: 3 Days, Location: None Selected Comprehensive Metabolic Panel [LAB.AMB] Time Frame: 3 Days, Location: None Selected Activity/Diet/Wound Care/Special Instructions: Diet: Renal diet Follow-up PCP within 1-2 days of discharge. Follow-up nephrology within 1 week of discharge. Follow-up vascular surgery within 1 week of discharge. Take all medications as advised. Discharge Disposition: HOME SELF-CARE
[2019-02-16] MEDS: ONDANSETRON 4 MG/2 ML VIAL IVP PRN (13:02)
[2019-02-17] MEDS ORDERED: LEVOTHYROXINE 112 MCG TAB PO SCH (06:30)
== END 2019-02-16 15:09 | disposition home or self-care (01) | DRG 642 ==
LOC: EC 13:46 → 4SSUR 19:59
PROVIDERS: ADMIT Family Medicine; ATTEND Family Medicine
DX: E83.39 Other disorders of phosphorus metabolism (principal); N18.6 End stage renal disease; E87.2 Acidosis; I12.0 Hypertensive chronic kidney disease with stage 5 chronic kidney disease or end stage renal disease; J96.10 Chronic respiratory failure, unspecified whether with hypoxia or hypercapnia; N13.2 Hydronephrosis with renal and ureteral calculous obstruction; N17.9 Acute kidney failure, unspecified; M79.10 Myalgia, unspecified site; D63.8 Anemia in other chronic diseases classified elsewhere; D69.6 Thrombocytopenia, unspecified; E03.9 Hypothyroidism, unspecified; E87.6 Hypokalemia; G89.29 Other chronic pain; I89.0 Lymphedema, not elsewhere classified; J44.9 Chronic obstructive pulmonary disease, unspecified; J84.10 Pulmonary fibrosis, unspecified; M19.90 Unspecified osteoarthritis, unspecified site; M81.0 Age-related osteoporosis without current pathological fracture; Z79.51 Long term (current) use of inhaled steroids; Z79.890 Hormone replacement therapy; Z79.899 Other long term (current) drug therapy; Z87.442 Personal history of urinary calculi; Z98.84 Bariatric surgery status; Z87.440 Personal history of urinary (tract) infections; I67.1 Cerebral aneurysm, nonruptured; R11.10 Vomiting, unspecified; T39.95XA Adverse effect of unspecified nonopioid analgesic, antipyretic and antirheumatic, initial encounter; Z88.1 Allergy status to other antibiotic agents; Z88.5 Allergy status to narcotic agent; Z88.2 Allergy status to sulfonamides
CPT/HCPCS: 36415; 76770; 80048; 80053; 81003; 82550; 83605; 83735; 84100; 84439; 84443; 85025; 85027; 85610; 85730; 99284

== ENCOUNTER → 2019-02-18 | Outpatient (CLI) | payer MEDICARE ==
[2019-02-18 12:20] LABS: Basophils # (A) 0.1 k/uL (0-0.2); Basophils % (A) 2 %; Eosinophils # (A) 0.2 k/uL (0-0.7); Eosinophils % (A) 3 %; HCT 29.4 % (34.0-46.0); Lymphocytes # (A) 1.3 k/uL (1.0-4.8); Lymphocytes % (A) 18 %; MCH 31.1 pg (25.0-35.0); MCHC 32.4 g/dL (31.0-37.0); MCV 95.8 fL (80.0-100.0); Mean Platelet Volume 7.1; Monocytes # (A) 0.5 k/uL (0-1.0); Monocytes % (A) 7 %; Neutrophils # (A) 4.9 k/uL (1.3-7.7); Neutrophils % (A) 69 %; Platelet Count 193 k/uL (150-450); RBC 3.07 m/uL (3.80-5.40); RDW 13.1 % (11.5-15.5)
[2019-02-18 12:26] LABS: HGB 9.5 gm/dL (11.4-16.0)
[2019-02-18 16:31] LABS: ALT <8 U/L (8-44); AST 20 U/L (13-35); African American GFR (CKD) 12.4 (60.0-200.0); Albumin/Globulin Ratio 1.76 (1.60-3.17); Alkaline Phosphatase 58 U/L (41-126); Chloride 97 mmol/L (96-109); Globulin 2.1 g/dL (1.6-3.3); Glucose 111 mg/dL (70-110); Potassium 4.5 mmol/L (3.5-5.5); Sodium 137 mmol/L (135-145); Total Bilirubin 0.2 mg/dL (0.3-1.2); Total Protein 5.8 g/dL (6.2-8.2)
== END | disposition home or self-care (01) ==
LOC: LABWHC1 11:09
PROVIDERS: ATTEND Family Medicine
DX: D64.9 Anemia, unspecified (principal); E87.6 Hypokalemia
CPT/HCPCS: 36415; 80053; 85025

== ENCOUNTER → 2019-03-14 | Outpatient (CLI) | payer MEDICARE ==
[2019-03-14 11:17] LABS: Basophils # (A) 0.1 k/uL (0-0.2); Basophils % (A) 1 %; Eosinophils # (A) 0.2 k/uL (0-0.7); Eosinophils % (A) 4 %; HCT 29.4 % (34.0-46.0); HGB 9.4 gm/dL (11.4-16.0); Hypochromasia Slight; Lymphocytes # (A) 1.6 k/uL (1.0-4.8); Lymphocytes % (A) 33 %; MCH 32.2 pg (25.0-35.0); MCHC 31.8 g/dL (31.0-37.0); MCV 101.4 fL (80.0-100.0); Macrocytosis Slight; Mean Platelet Volume 6.2; Monocytes # (A) 0.4 k/uL (0-1.0); Monocytes % (A) 8 %; Neutrophils # (A) 2.5 k/uL (1.3-7.7); Neutrophils % (A) 51 %; Platelet Count 180 k/uL (150-450)
[2019-03-14 11:33] LABS: Appearance,Urine Clear (Clear); Bacteria,Urine Few /hpf; Bilirubin,Urine Negative (Negative); Blood,Urine Negative (Negative); Color,Urine Light Yellow; Glucose,Urine (UA) Negative (Negative); Ketones,Urine Negative (Negative); Leukocyte Esterase,Urine Small (Negative); Mucus,Urine Rare /hpf; Nitrite,Urine Negative (Negative); Protein,Urine Negative (Negative); Specific Gravity,Urine 1.008 (1.001-1.035); Squamous Epithelial Cell,Urine 2 /hpf (0-4); Urobilinogen,Urine <2.0 mg/dL (<2.0); WBC,Urine 9 /hpf (0-5)
[2019-03-14 17:23] LABS: Creatinine,Urine Random 34.5 mg/dL; Total Protein,Urine Random 12.8 mg/dL (0.0-13.5)
[2019-03-14 17:40] LABS: Iron Saturation 34.41 (12.00-45.00)
[2019-03-14 17:46] LABS: African American GFR (CKD) 13.2 (60.0-200.0); Albumin 3.7 g/dL (3.80-4.90); Anion Gap 9.1 mmol/L (4.00-12.00); BUN/Creat Ratio 12.43 Ratio (12.00-20.00); Calcium 9.4 mg/dL (8.7-10.3); Carbon Dioxide 16.9 mmol/L (21.6-31.8); Magnesium 1.9 mg/dL (1.5-2.4); Phosphorus 4.9 mg/dL (2.4-5.1); Potassium 5.9 mmol/L (3.5-5.5); Uric Acid 5.1 mg/dL (2.9-7.7)
== END | disposition home or self-care (01) ==
LOC: LABWHC1 10:00
PROVIDERS: ATTEND Internal Medicine Nephrology
DX: E55.9 Vitamin D deficiency, unspecified (principal); M10.9 Gout, unspecified; N25.81 Secondary hyperparathyroidism of renal origin; D63.1 Anemia in chronic kidney disease; N18.5 Chronic kidney disease, stage 5; N39.0 Urinary tract infection, site not specified; R80.9 Proteinuria, unspecified
CPT/HCPCS: 36415; 80048; 81001; 82040; 82306; 82570; 82728; 83540; 83550; 83735; 83970; 84100; 84156; 84550; 85025

== ENCOUNTER → 2019-03-21 | Outpatient (CLI) | payer MEDICARE ==
[2019-03-21 16:17] LABS: African American GFR (CKD) 13.7 (60.0-200.0); Anion Gap 10.2 mmol/L (4.00-12.00); BUN/Creat Ratio 15.28 Ratio (12.00-20.00); Calcium 9.2 mg/dL (8.7-10.3); Carbon Dioxide 16.8 mmol/L (21.6-31.8); Potassium 4.2 mmol/L (3.5-5.5)
== END | disposition home or self-care (01) ==
LOC: LABWHC1 11:09
PROVIDERS: ATTEND Internal Medicine Nephrology
DX: N18.5 Chronic kidney disease, stage 5 (principal)
CPT/HCPCS: 36415; 80048

== ENCOUNTER → 2019-04-01 | Outpatient (CLI) | payer MEDICARE ==
[2019-04-01 13:31] LABS: Appearance,Urine Clear (Clear); Bacteria,Urine Moderate /hpf; Bilirubin,Urine Negative (Negative); Blood,Urine Negative (Negative); Color,Urine Light Yellow; Glucose,Urine (UA) Negative (Negative); Ketones,Urine Negative (Negative); Leukocyte Esterase,Urine Small (Negative); Mucus,Urine Rare /hpf; Nitrite,Urine Negative (Negative); PH, Urine 5.5 (5.0-8.0); Protein,Urine Negative (Negative); Specific Gravity,Urine 1.006 (1.001-1.035); Squamous Epithelial Cell,Urine <1 /hpf (0-4); Urobilinogen,Urine <2.0 mg/dL (<2.0); WBC,Urine 15 /hpf (0-5)
[2019-04-01 13:34] LABS: Basophils # (A) 0.1 k/uL (0-0.2); Basophils % (A) 1 %; Eosinophils # (A) 0.1 k/uL (0-0.7); Eosinophils % (A) 2 %; HCT 33.3 % (34.0-46.0); HGB 10.6 gm/dL (11.4-16.0); Hypochromasia Slight; Lymphocytes # (A) 1.3 k/uL (1.0-4.8); Lymphocytes % (A) 24 %; MCH 31.8 pg (25.0-35.0); MCHC 31.8 g/dL (31.0-37.0); MCV 99.8 fL (80.0-100.0); Macrocytosis Slight; Mean Platelet Volume 6.1; Monocytes # (A) 0.5 k/uL (0-1.0); Monocytes % (A) 8 %; Neutrophils # (A) 3.5 k/uL (1.3-7.7); Neutrophils % (A) 63 %; Platelet Count 205 k/uL (150-450); RBC 3.34 m/uL (3.80-5.40); WBC 5.5 k/uL (3.8-10.6)
[2019-04-01 18:55] LABS: Ferritin 199.4 ng/mL (10.0-291.0)
[2019-04-01 19:17] LABS: Creatinine,Urine Random 29.7 mg/dL
[2019-04-01 21:20] LABS: % Iron Saturation 30.8 (12.00-45.00); African American GFR (CKD) 15.2 (60.0-200.0); Anion Gap 14.5 mmol/L (4.00-12.00); BUN/Creat Ratio 23.03 Ratio (12.00-20.00); Calcium 9.1 mg/dL (8.7-10.3); Carbon Dioxide 15.5 mmol/L (21.6-31.8); Magnesium 1.9 mg/dL (1.5-2.4); Phosphorus 6.8 mg/dL (2.4-5.1); Uric Acid 7.1 mg/dL (2.9-7.7)
[2019-04-02 08:08] LABS: Potassium 2.6 mmol/L (3.5-5.5)
== END | disposition home or self-care (01) ==
LOC: LABWHC1 12:33
PROVIDERS: ATTEND Internal Medicine Nephrology
DX: N18.5 Chronic kidney disease, stage 5 (principal); E55.9 Vitamin D deficiency, unspecified; N25.81 Secondary hyperparathyroidism of renal origin; M10.9 Gout, unspecified; N39.0 Urinary tract infection, site not specified; D63.1 Anemia in chronic kidney disease; R80.9 Proteinuria, unspecified
CPT/HCPCS: 36415; 80048; 81001; 82040; 82306; 82570; 82728; 83540; 83550; 83735; 83970; 84100; 84156; 84550; 85025

== ENCOUNTER 2019-04-05 13:03 | Inpatient (IN) | payer MEDICARE ==
[2019-04-05] MEDS ORDERED: IPRATROPIUM-ALBUTEROL 3 ML NEB INHALATION STA (13:32)
--- NOTE | 2019-04-05 13:50 | ED ---
General Adult HPI - General Chief complaint: Shortness of Breath Stated complaint: LEIDY Time Seen by Provider: 04/05/19 13:23 Source: patient, family, RN notes reviewed Mode of arrival: ambulatory Limitations: no limitations - History of Present Illness Initial comments: Patient is a pleasant 73-year-old female presenting to the emergency department with family for dyspnea. Symptoms have progressively couple weeks. Exertional dyspnea is exertional. No dyspnea at rest. No history of similar symptoms previously. Patient does have a plan to set up for dialysis. Patient did see her heart coordinator today and was advised to come to the hospital for probable dialysis. There is concern for fluid build up in the lungs. Patient does have leg swelling however states this is chronic and unchanged. No chest pain. No cough or fevers. - Related Data Home Medications Medication Instructions Recorded Confirmed Albuterol Nebulized [Ventolin 2.5 mg INHALATION RT-TID PRN 08/23/18 03/19/19 Nebulized] Bumetanide [BUMEX] 1 mg PO DAILY@139908/23/18 03/19/19 Calcitriol 0.5 mcg PO BID@1399,209908/23/18 03/19/19 Docusate [Colace] 100 mg PO DAILY@139908/23/18 03/19/19 FLUoxetine HCL [PROzac] 20 mg PO BID@1400,209908/23/18 03/19/19 Fluticasone/Salmeterol [Advair 1 puff INHALATION RT-BID PRN 08/23/18 03/19/19 250-50 Diskus] Levothyroxine Sodium [Synthroid] 112 mcg PO MOTUWETHFRSA 08/23/18 03/19/19 Levothyroxine Sodium [Synthroid] 224 mcg PO MURO 08/23/18 03/19/19 Loratadine [Alavert] 10 mg PO DAILY@1400 08/23/18 03/19/19 Midodrine [ProAmatine] 5 mg PO DAILY@1400 08/23/18 03/19/19 Mometasone Inhalr 220 Mcg/Puff 2 puff INHALATION RT-HS PRN 08/23/18 03/19/19 [Asmanex] Montelukast [Singulair] 10 mg PO HS 08/23/18 03/19/19 Sodium Bicarbonate Tab 650 mg PO TID@1400,1700,2100 08/23/18 03/19/19 Midodrine [ProAmatine] 2.5 mg PO HS@209911/19/18 03/19/19 Omeprazole 40 mg PO DAILY@139911/19/18 03/19/19 Rising Mg64 W/Ca 1 tab PO DAILY@139911/19/18 03/19/19 metroNIDAZOLE [Flagyl] 250 mg PO DAILY@139911/19/18 03/19/19 Albuterol Sulfate [Proair Hfa] 1 - 2 puff INHALATION RT-Q6H PRN 01/31/19 03/19/19 Budesonide-Formot 160-4.5 Mcg 2 puff INHALATION RT-BID PRN 01/31/19 03/19/19 [Symbicort 160-4.5 Mcg Inhaler] Docusate [Colace] 200 mg PO HS@209901/31/19 03/19/19 Ergocalciferol (Vitamin D2) 50,000 unit PO MOWEFR 01/31/19 03/19/19 [Vitamin D2] Potassium Chloride [Klor-Con 20] 20 meq PO BID 01/31/19 03/19/19 traMADol HCl [Ultram] 50 mg PO Q8HR PRN 01/31/19 03/19/19 Previous Rx's Medication Instructions Recorded Calcium Acetate [PhosLo] 667 mg PO TID-W/MEALS #90 cap 02/16/19 Allergies Allergy/AdvReac Type Severity Reaction Status Date / Time adhesive tape Allergy Rash/Hives Verified 04/05/19 13:17 Sulfa (Sulfonamide Allergy Itching Verified 04/05/19 13:17 Antibiotics) tetracycline Allergy Nausea & Verified 04/05/19 13:17 Vomiting codeine AdvReac Nausea Verified 04/05/19 13:17 Review of Systems ROS Statement: Those systems with pertinent positive or pertinent negative responses have been documented in the HPI. ROS Other: All systems not noted in ROS Statement are negative. Constitutional: Denies: fever Eyes: Denies: eye pain ENT: Denies: ear pain Respiratory: Reports: dyspnea. Denies: cough Cardiovascular: Denies: chest pain Endocrine: Reports: fatigue Gastrointestinal: Denies: abdominal pain Genitourinary: Denies: dysuria Musculoskeletal: Denies: back pain Skin: Denies: rash Neurological: Denies: weakness Past Medical History Past Medical History: COPD, Osteoarthritis (OA), Renal Disease, Thyroid Disorder Additional Past Medical History / Comment(s): kidney stones and UTI,steroid injection October 2018 hx lymphedema, hx pulmonary fibrosis, hx graves,hx rt foot torn ligaments,hx kidney stones, hx osteoporosis,hypotension, chronic respiratory failure on 2 L nasal cannula at night & prn, vitamine D deficiency, hypocalcemia History of Any Multi-Drug Resistant Organisms: CRE Date of last positivie culture/infection: 10/16/18 Enterobacter intermedium CRE (per [facility] negative for KPC or other) MDRO Source:: Urine Past Surgical History: Bariatric Surgery Additional Past Surgical History / Comment(s): hx bariatric surgery-Kye En Y,lung biopsy,radioactive iodine-tx thyroid,rectal and bladder suspensions ,vaginal surgery as a child,partha carpel tunnel,rt knee meniscus repair,D&C x3, left arm fistula 02/08/19 Past Anesthesia/Blood Transfusion Reactions: Previous Problems w/ Anesthesia, Postoperative Nausea & Vomiting (PONV) Additional Past Anesthesia/Blood Transfusion Reaction / Comment(s): decrease bp with anesthesia,no problems with prior blood transfusion Past Psychological History: No Psychological Hx Reported Smoking Status: Never smoker Past Alcohol Use History: None Reported Past Drug Use History: None Reported - Past Family History Father Family Medical History: Pulmonary Embolus Additional Family Medical History / Comment(s): . Mother Family Medical History: Cancer Additional Family Medical History / Comment(s): . Sister(s) Family Medical History: Cancer Additional Family Medical History / Comment(s): . Daughter(s) Additional Family Medical History / Comment(s): lymphedema in legs General Exam Limitations: no limitations General appearance: alert, in no apparent distress Head exam: Present: normocephalic Eye exam: Present: normal appearance, PERRL ENT exam: Present: normal oropharynx Neck exam: Present: normal inspection Respiratory exam: Present: rhonchi Cardiovascular Exam: Present: regular rate, normal rhythm GI/Abdominal exam: Present: soft. Absent: tenderness Extremities exam: Present: pedal edema. Absent: calf tenderness Neurological exam: Present: alert Psychiatric exam: Present: normal affect, normal mood Skin exam: Present: normal color Course Vital Signs 11/01/19 11/01/19 11/01/19 13:17 14:58 15:11 Temperature 97.8 F Pulse Rate 75 62 64 Respiratory 16 Rate Blood Pressure 101/67 O2 Sat by Pulse 100 Oximetry EKG Findings - EKG Comments: EKG Findings:: Sinus rhythm at 65. First-degree AV block AL 212. QRS 88. QT 412. QTC 428. Normal axis. Normal QRS. No acute ST change. Medical Decision Making - Medical Decision Making Patient reevaluated and updated. Case was discussed with Dr. Wright, who will admit covering for Dr. Ambrocio. He is aware that vQ scan will be ordered. Dr. Wheeler will be placed on consult. - Lab Data Result diagrams: 04/05/19 14:55 04/05/19 14:55 Lab Results 04/05/19 04/05/19 04/05/19 Range/Units 14:55 14:55 14:55 WBC (3.8-10.6) k/uL RBC (3.80-5.40) m/uL Hgb (11.4-16.0) gm/dL Hct (34.0-46.0) % MCV (80.0-100.0) fL MCH (25.0-35.0) pg MCHC (31.0-37.0) g/dL RDW (11.5-15.5) % Plt Count (150-450) k/uL Neutrophils % % Lymphocytes % % Monocytes % % Eosinophils % % Basophils % % Neutrophils # (1.3-7.7) k/uL Lymphocytes # (1.0-4.8) k/uL Monocytes # (0-1.0) k/uL Eosinophils # (0-0.7) k/uL Basophils # (0-0.2) k/uL PT 10.0 (9.0-12.0) sec INR 0.9 (<1.2) APTT 20.9 L (22.0-30.0) sec Sodium 138 (137-145) mmol/L Potassium 3.3 L (3.5-5.1) mmol/L Chloride 111 H (98-107) mmol/L Carbon Dioxide 15 L (22-30) mmol/L Anion Gap 12 mmol/L BUN 52 H (7-17) mg/dL Creatinine 2.77 H (0.52-1.04) mg/dL Est GFR (CKD-EPI)AfAm 19 (>60 ml/min/1.73 sqM) Est GFR (CKD-EPI)NonAf 16 (>60 ml/min/1.73 sqM) Glucose 106 H (74-99) mg/dL Calcium 9.8 (8.4-10.2) mg/dL Magnesium 2.1 (1.6-2.3) mg/dL Total Bilirubin 0.5 (0.2-1.3) mg/dL AST 32 (14-36) U/L ALT 22 (9-52) U/L Alkaline Phosphatase 44 (38-126) U/L Troponin I (0.000-0.034) ng/mL NT-Pro-B Natriuret Pep 784 pg/mL Total Protein 6.8 (6.3-8.2) g/dL Albumin 3.8 (3.5-5.0) g/dL 04/05/19 04/05/19 Range/Units 14:55 14:55 WBC 7.6 (3.8-10.6) k/uL RBC 3.52 L (3.80-5.40) m/uL Hgb 11.0 L (11.4-16.0) gm/dL Hct 34.3 (34.0-46.0) % MCV 97.4 (80.0-100.0) fL MCH 31.4 (25.0-35.0) pg MCHC 32.2 (31.0-37.0) g/dL RDW 14.1 (11.5-15.5) % Plt Count 198 (150-450) k/uL Neutrophils % 59 % Lymphocytes % 28 % Monocytes % 7 % Eosinophils % 2 % Basophils % 1 % Neutrophils # 4.5 (1.3-7.7) k/uL Lymphocytes # 2.1 (1.0-4.8) k/uL Monocytes # 0.5 (0-1.0) k/uL Eosinophils # 0.2 (0-0.7) k/uL Basophils # 0.1 (0-0.2) k/uL PT (9.0-12.0) sec INR (<1.2) APTT (22.0-30.0) sec Sodium (137-145) mmol/L Potassium (3.5-5.1) mmol/L Chloride (98-107) mmol/L Carbon Dioxide (22-30) mmol/L Anion Gap mmol/L BUN (7-17) mg/dL Creatinine (0.52-1.04) mg/dL Est GFR (CKD-EPI)AfAm (>60 ml/min/1.73 sqM) Est GFR (CKD-EPI)NonAf (>60 ml/min/1.73 sqM) Glucose (74-99) mg/dL Calcium (8.4-10.2) mg/dL Magnesium (1.6-2.3) mg/dL Total Bilirubin (0.2-1.3) mg/dL AST (14-36) U/L ALT (9-52) U/L Alkaline Phosphatase (38-126) U/L Troponin I <0.012 (0.000-0.034) ng/mL NT-Pro-B Natriuret Pep pg/mL Total Protein (6.3-8.2) g/dL Albumin (3.5-5.0) g/dL - Radiology Data Radiology results: image reviewed (Chest x-ray shows COPD.) Disposition Clinical Impression: Renal failure, Dyspnea Disposition: ADMITTED IP TO THIS HOSP Is patient prescribed a controlled substance at d/c from ED?: No Referrals: Terrence Kwan MD [Primary Care Provider] - 1-2 days Decision Time: 15:58
--- NOTE | 2019-04-05 14:29 | XR ---
EXAMINATION TYPE: XR chest 2V DATE OF EXAM: 04/05/2019 COMPARISON: 11/14/2018 HISTORY: Difficulty breathing. History of COPD. TECHNIQUE: Frontal and lateral views of the chest are obtained. FINDINGS: There is no focal air space opacity, pleural effusion, or pneumothorax seen. Pulmonary hyp erinflation is seen indicative of underlying COPD. The cardiac silhouette size is within normal limit s. There is tortuosity of the descending thoracic aorta as seen on the prior. Mild diffuse osseous d emineralization. Mild multilevel degenerative changes of the spine. The osseous structures are intact . Numerous surgical clips are seen in the upper abdomen. IMPRESSION: No acute cardiopulmonary process. Radiographic sequela of COPD.
[2019-04-05 15:14] LABS: Basophils # (A) 0.1 k/uL (0-0.2); Basophils % (A) 1 %; Eosinophils # (A) 0.2 k/uL (0-0.7); Eosinophils % (A) 2 %; HCT 34.3 % (34.0-46.0); Lymphocytes # (A) 2.1 k/uL (1.0-4.8); Lymphocytes % (A) 28 %; MCH 31.4 pg (25.0-35.0); MCHC 32.2 g/dL (31.0-37.0); MCV 97.4 fL (80.0-100.0); Mean Platelet Volume 6.7; Monocytes # (A) 0.5 k/uL (0-1.0); Monocytes % (A) 7 %; Neutrophils # (A) 4.5 k/uL (1.3-7.7); Neutrophils % (A) 59 %; Platelet Count 198 k/uL (150-450); RBC 3.52 m/uL (3.80-5.40); RDW 14.1 % (11.5-15.5); WBC 7.6 k/uL (3.8-10.6)
[2019-04-05 15:21] LABS: Albumin 3.8 g/dL (3.5-5.0); Calcium 9.8 mg/dL (8.4-10.2); Magnesium 2.1 mg/dL (1.6-2.3); Potassium 3.3 mmol/L (3.5-5.1); Total Bilirubin 0.5 mg/dL (0.2-1.3); Total Protein 6.8 g/dL (6.3-8.2)
[2019-04-05 15:27] LABS: INR 0.9 (<1.2); Partial Thromboplastin Time 20.9 sec (22.0-30.0)
[2019-04-05] MEDS ORDERED: NALOXONE 0.4 MG/ML 1 ML VIAL IV PRN (15:58)
--- NOTE | 2019-04-05 17:23 | NM ---
EXAMINATION TYPE: NM pul vent and perfuse DATE OF EXAM: 04/05/2019 COMPARISON: NONE HISTORY: Short of breath TECHNIQUE: Utilizing inhalation of 68.9 mCi Tc 99m DTPA aerosol and intravenous injection of 5.20 mC i of Tc 99m MAA, ventilation and perfusion images are acquired post injection in multiple projections . FINDINGS: There are matched subsegmental defects in the upper lobes bilaterally. I see no ventilation/perfusion mismatch. Lung volumes are normal. IMPRESSION: Matching defects in the upper lobes consistent with airway disease. There is a low probability of pul monary embolism.
[2019-04-05] MEDS ORDERED: ALBUTEROL NEBULIZED 2.5 MG/3 ML INHALATION PRN (17:52)
[2019-04-05] MEDS ORDERED: POTASSIUM CHLORIDE ER 20 MEQ TAB.ER PO STA (18:13)
--- NOTE | 2019-04-05 18:16 | P.HPIM ---
History of Present Illness H&P Date: 04/05/19 Chief Complaint: Shortness of breath 73-year-old female with PMH of ESRD, hypothyroidism, COPD/asthma presents the ED for shortness of breath. Patient reports progressive worsening of her breathing over the past week. Patient states that she had difficulty going from her bed to the washroom, which prompted her to come to Dr. Wheeler's clinic. She has been attempting to initiate dialysis at [facility] which is yet to be determined. Patient was able to see her rod bending machine operator today who advised her to come to the ED. Patient denies any headache, lower extremity edema, nausea or vomiting, fever or chills, cough, chest pain, palpitations, changes in urination or bowel habits. No changes in appetite or weight. Patient denies any dizziness, numbness/weakness/tingling of the extremities. In the ED, vital signs are stable. CBC showed hemoglobin of 11. Coagulation panel was negative. CMP showed potassium of 3.3, chloride of 111, bicarbonate of 15, BUN 52, creatinine 2.77. Troponin was less than 0.012. BNP was 784. Chest x-ray showed signs of COPD. Patient is admitted for possible initiation of dialysis with nephrology on consult. Review of Systems Pertinent positives and negatives as discussed in HPI, a complete review of systems was performed and all other systems are negative. Past Medical History Past Medical History: COPD, Osteoarthritis (OA), Renal Disease, Thyroid Disorder Additional Past Medical History / Comment(s): kidney stones and UTI,steroid injection October 2018 hx lymphedema, hx pulmonary fibrosis, hx graves,hx rt foot t orn ligaments,hx kidney stones, hx osteoporosis,hypotension, chronic respiratory failure on 2 L nasal cannula at night & prn, vitamine D deficiency, hypocalcemia History of Any Multi-Drug Resistant Organisms: CRE Date of last positivie culture/infection: 10/16/18 Enterobacter intermedium CRE (per [facility] negative for KPC or other) MDRO Source:: Urine Past Surgical History: Bariatric Surgery Additional Past Surgical History / Comment(s): hx bariatric surgery-Kye En Y,lung biopsy,radioactive iodine-tx thyroid,rectal and bladder suspensions,vaginal surgery as a child,partha carpel tunnel,rt knee meniscus repair,D&C x3, left arm fistula 02/08/19 Past Anesthesia/Blood Transfusion Reactions: Previous Problems w/ Anesthesia, Postoperative Nausea & Vomiting (PONV) Additional Past Anesthesia/Blood Transfusion Reaction / Comment(s): decrease bp with anesthesia,no problems with prior blood transfusion Past Psychological History: No Psychological Hx Reported Smoking Status: Never smoker Past Alcohol Use History: None Reported Past Drug Use History: None Reported - Past Family History Father Family Medical History: Pulmonary Embolus Additional Family Medical History / Comment(s): . Mother Family Medical History: Cancer Additional Family Medical History / Comment(s): . Sister(s) Family Medical History: Cancer Additional Family Medical History / Comment(s): . Daughter(s) Additional Family Medical History / Comment(s): lymphedema in legs Medications and Allergies Home Medications Medication Instructions Recorded Confirmed Type Albuterol Nebulized [Ventolin 2.5 mg INHALATION RT-TID PRN 08/23/18 04/05/19 History Nebulized] Bumetanide [BUMEX] 1 mg PO DAILY@139908/23/18 04/05/19 History Calcitriol 0.5 mcg PO BID@1399,209908/23/18 04/05/19 History Docusate [Colace] 100 mg PO DAILY@139908/23/18 04/05/19 History FLUoxetine HCL [PROzac] 20 mg PO BID@1400,209908/23/18 04/05/19 History Fluticasone/Salmeterol [Advair 1 puff INHALATION RT-BID PRN 08/23/18 04/05/19 History 250-50 Diskus] Levothyroxine Sodium [Synthroid] 112 mcg PO MOTUWETHFRSA 08/23/18 04/05/19 History Levothyroxine Sodium [Synthroid] 224 mcg PO MURO 08/23/18 04/05/19 History Loratadine [Alavert] 10 mg PO DAILY@1400 08/23/18 04/05/19 History Midodrine [ProAmatine] 5 mg PO DAILY@139908/23/18 04/05/19 History Mometasone Inhalr 220 Mcg/Puff 2 puff INHALATION RT-HS PRN 08/23/18 04/05/19 History [Asmanex] Montelukast [Singulair] 10 mg PO HS 08/23/18 04/05/19 History Sodium Bicarbonate Tab 650 mg PO QID 08/23/18 04/05/19 History Midodrine [ProAmatine] 2.5 mg PO HS@209911/19/18 04/05/19 History Omeprazole 40 mg PO DAILY@139911/19/18 04/05/19 History Rising Mg64 W/Ca 1 tab PO DAILY@139911/19/18 04/05/19 History metroNIDAZOLE [Flagyl] 250 mg PO DAILY@139911/19/18 04/05/19 History Albuterol Sulfate [Proair Hfa] 1 - 2 puff INHALATION RT-Q6H PRN 01/31/19 04/05/19 History Budesonide-Formot 160-4.5 Mcg 2 puff INHALATION RT-BID PRN 01/31/19 04/05/19 History [Symbicort 160-4.5 Mcg Inhaler] Docusate [Colace] 200 mg PO HS@209901/31/19 04/05/19 History Ergocalciferol (Vitamin D2) 50,000 unit PO MOWEFR 01/31/19 04/05/19 History [Vitamin D2] Potassium Chloride [Klor-Con 20] 20 meq PO TID 01/31/19 04/05/19 History traMADol HCl [Ultram] 50 mg PO Q8HR PRN 01/31/19 04/05/19 History Calcium Acetate [PhosLo] 667 mg PO TID-W/MEALS #90 cap 02/16/19 04/05/19 Rx Hydrocortisone Suppository 25 mg RECTAL DAILY PRN 04/05/19 04/05/19 History [Anusol-Hc] Ranitidine HCl [Zantac] 300 mg PO DAILY 04/05/19 04/05/19 History Allergies Allergy/AdvReac Type Severity Reaction Status Date / Time adhesive tape Allergy Rash/Hives Verified 04/05/19 16:22 Sulfa (Sulfonamide Allergy Itching Verified 04/05/19 16:22 Antibiotics) tetracycline Allergy Nausea & Verified 04/05/19 16:22 Vomiting codeine AdvReac Nausea Verified 04/05/19 16:22 Physical Exam Vitals: Vital Signs Temp Pulse Pulse Resp BP BP Pulse Ox 04/05/19 17:56 71 15 04/05/19 17:30 97.9 F 71 15 128/81 95 04/05/19 16:50 98.0 F 67 18 108/78 98 11/01/19 15:11 64 04/05/19 14:58 62 04/05/19 13:17 97.8 F 75 16 101/67 100 Intake and Output 04/05/19 04/05/19 04/05/19 06:59 14:59 22:59 Other: Weight 51.71 kg General: [non toxic], [no distress], [appears at stated age] Derm: [warm], [dry] Head: [atraumatic], [normocephalic], [symmetric] Eyes: [EOMI], [no lid lag], [anicteric sclera] Mouth: [no lip lesion], [mucus membranes moist] Cardiovascular: [S1S2 reg], [no murmur], [positive DP pulse bilateral], Lungs: [CTA bilateral], [no rhonchi, no rales] , [no accessory muscle use] Abdominal: [soft], [ nontender to palpation], [no guarding], [no appreciable organomegaly] Ext: [no gross muscle atrophy], [no edema], [no contractures], [left upper extremity fistula with thrill] Neuro: [ CN II-XI grossly intact], [no focal neuro deficits] Psych: [Alert], [oriented], [appropriate affect] Results CBC & Chem 7: 04/05/19 14:55 04/05/19 14:55 Labs: Abnormal Lab Results - Last 24 Hours (Table) 04/05/19 04/05/19 04/05/19 Range/Units 14:55 14:55 14:55 RBC 3.52 L (3.80-5.40) m/uL Hgb 11.0 L (11.4-16.0) gm/dL APTT 20.9 L (22.0-30.0) sec Potassium 3.3 L (3.5-5.1) mmol/L Chloride 111 H (98-107) mmol/L Carbon Dioxide 15 L (22-30) mmol/L BUN 52 H (7-17) mg/dL Creatinine 2.77 H (0.52-1.04) mg/dL Glucose 106 H (74-99) mg/dL Thrombosis Risk Factor Assmnt - Choose All That Apply Each Factor Represents 1 point: Abnormal pulmonary function (COPD) Each Risk Factor Represents 2 Points: Age 61-74 years Thrombosis Risk Factor Assessment Total Risk Factor Score: 3 Thrombosis Risk Factor Assessment Level: Moderate Risk Assessment and Plan Assessment: Assessment and plan Shortness of breath likely volume overload from ESRD Hypokalemia Metabolic acidosis COPD Chronic conditions: Hypothyroidism Chest x-ray showing signs of COPD. Patient is saturating high 90s on room air. Plans: Consult nephrology to initiate hemodialysis. Restart calcium acetate. Potassium greater than 4 magnesium greater than 2. Check phosphorus and magnesium in the morning. Potassium 3.3. Plans: Replace by mouth. Repeat BMP in the morning. Bicarbonate of 15. Likely due to ESRD. Plans: Initiate dialysis. Continue sodium bicarb. Follow nephrology recommendations. Stable. Plans: Albuterol neb as needed for shortness of breath and wheezing. Continue Singulair. DVT prophylaxis: [SCD boots] Discussed with: [Patient and ] Anticipated discharge: [1-2 days] Anticipated discharge place: [Home] A total of [35] minutes was spent on the care of this complex patient more than 50% of the time was spent in counseling and care coordination. Patient names her Messi decision-maker in the case that she cant make decisions for herself. She reiterates wanting to remain full code at this time.
[2019-04-05] MEDS: SODIUM BICARBONATE TAB 650 MG TAB PO SCH ×2 (18:27→20:18)
[2019-04-05] MEDS: MIDODRINE 5 MG TAB PO SCH (20:16)
[2019-04-05] MEDS: FLUoxetine HCL 20 MG CAP PO SCH (20:16)
[2019-04-05] MEDS: MONTELUKAST 10 MG TAB PO SCH (20:18)
[2019-04-05] MEDS: CALCITRIOL 0.25 MCG CAP PO SCH (20:18)
[2019-04-05] MEDS: DOCUSATE 100 MG CAP PO SCH (20:18)
[2019-04-06] MEDS: traMADol 50 MG TAB PO PRN (01:52)
[2019-04-06] MEDS: LEVOTHYROXINE 112 MCG TAB PO SCH (05:13)
[2019-04-06 07:08] LABS: Calcium 9.3 mg/dL (8.4-10.2); Magnesium 2.1 mg/dL (1.6-2.3); Phosphorus 5.6 mg/dL (2.5-4.5); Potassium 3.8 mmol/L (3.5-5.1)
[2019-04-06] MEDS: SODIUM BICARBONATE TAB 650 MG TAB PO SCH ×4 (08:13→20:40)
[2019-04-06] MEDS: FAMOTIDINE 20 MG TAB PO SCH (08:13)
[2019-04-06] MEDS: CALCIUM ACETATE 667 MG TAB PO SCH ×3 (08:13→17:08)
--- NOTE | 2019-04-06 10:09 | P.PN ---
Subjective Progress Note Date: 04/06/19 Principal diagnosis: Fluid overload from ESRD Patient was seen and examined. No acute events overnight. Patient reports significant improvement in her breathing since admission but continues to endorse extreme dyspnea with exertion. No shortness of breath at rest. She denies any chest pain or palpitations. No nausea or vomiting. No fever or chills. Does complain of some myalgias in the lower extremities. Objective - Vital Signs Vital signs: Vital Signs Temp 98.1 F 04/06/19 07:00 Pulse 74 04/06/19 07:00 Resp 16 04/06/19 07:00 BP 110/67 04/06/19 07:00 Pulse Ox 100 04/06/19 07:00 Intake & Output 04/05/19 04/06/19 04/06/19 18:59 06:59 18:59 Intake Total 480 Balance 480 Weight 51.71 kg 50.6 kg Intake: Oral 480 Other: Voiding Method Toilet Toilet # Voids 2 - Exam General: [non toxic], [no distress], [appears at stated age] Derm: [warm], [dry] Head: [atraumatic], [normocephalic], [symmetric] Eyes: [EOMI], [no lid lag], [anicteric sclera] Mouth: [no lip lesion], [mucus membranes moist] Cardiovascular: [S1S2 reg], [no murmur], [positive DP pulse bilateral], Lungs: [Decreased breath sounds bilateral], [no rhonchi, no rales] , [no accessory muscle use] Abdominal: [soft], [ nontender to palpation], [no guarding], [no appreciable organomegaly] Ext: [no gross muscle atrophy], [no edema], [no contractures], [left upper extremity fistula with thrill] Neuro: [no focal neuro deficits] Psych: [Alert], [oriented], [appropriate affect] - Labs CBC & Chem 7: 04/05/19 14:55 04/06/19 06:22 Labs: Abnormal Lab Results - Last 24 Hours (Table) 04/05/19 04/05/19 04/05/19 Range/Units 14:55 14:55 14:55 RBC 3.52 L (3.80-5.40) m/uL Hgb 11.0 L (11.4-16.0) gm/dL APTT 20.9 L (22.0-30.0) sec Potassium 3.3 L (3.5-5.1) mmol/L Chloride 111 H (98-107) mmol/L Carbon Dioxide 15 L (22-30) mmol/L BUN 52 H (7-17) mg/dL Creatinine 2.77 H (0.52-1.04) mg/dL Glucose 106 H (74-99) mg/dL Phosphorus (2.5-4.5) mg/dL 04/06/19 Range/Units 06:22 RBC (3.80-5.40) m/uL Hgb (11.4-16.0) gm/dL APTT (22.0-30.0) sec Potassium (3.5-5.1) mmol/L Chloride 113 H (98-107) mmol/L Carbon Dioxide 16 L (22-30) mmol/L BUN 53 H (7-17) mg/dL Creatinine 2.88 H (0.52-1.04) mg/dL Glucose 100 H (74-99) mg/dL Phosphorus 5.6 H (2.5-4.5) mg/dL Assessment and Plan Assessment: Assessment and plan Shortness of breath likely volume overload from ESRD Metabolic acidosis Myalgias COPD Chronic conditions: Hypothyroidism Resolved: Hypokalemia Chest x-ray showing signs of COPD. Patient is saturating high 90s on room air. Plans: Consult nephrology to initiate hemodialysis. Restart calcium acetate. Potassium greater than 4 magnesium greater than 2. Check phosphorus and magnesium in the morning. Bicarbonate of 15-16. Likely due to ESRD. Plans: Initiate dialysis. Continue sodium bicarb. Follow nephrology recommendations. Likely due to hyperphosphatemia. Phosphorus 5.6. Plans: Continue calcium acetate. Repeat phosphorus in the morning. Stable. Plans: Albuterol neb as needed for shortness of breath and wheezing. Continue Singulair. [Awaiting Nephrology consultation to initiate possible dialysis. Likely DC in 1- 2 days. She is pending clinical improvement.]
--- NOTE | 2019-04-06 13:10 | P.NPCON ---
History of Present Illness - Reason for Consult Consult date: 04/06/19 acute renal failure, metabolic acidosis - Chief Complaint Worsening shortness of breath - History of Present Illness 73-year-old white lady referred to the hospital from the clinic because of worsening shortness of breath. She has chronic kidney disease stage IV with baseline creatinine of 1.8-2.0 MG per DL and follows with Dr. Wheeler as outpatient. She has progressive shortness of breath to the point that unable to ambulate at house. Denies any nausea vomiting or diarrhea. She has recent a cute kidney injury 2 months ago with a peak creatinine of 6.0. She has left forearm AV graft, hasn't started on dialysis yet. Her creatinine is improving since then. She lost significant amount of weight. Her appetite is fair. No confusion. She was about to start outpatient dialysis by the primary team but hasn't started yet. Review of Systems Constitutional: Reports as per HPI Past Medical History Past Medical History: COPD, Osteoarthritis (OA), Renal Disease, Thyroid Disorder Additional Past Medical History / Comment(s): kidney stones and UTI,steroid injection October 2018 hx lymphedema, hx pulmonary fibrosis, hx graves,hx rt foot torn ligaments,hx kidney stones, hx osteoporosis,hypotension, chronic respiratory failure on 2 L nasal cannula at night & prn, vitamine D deficiency, hypocalcemia History of Any Multi-Drug Resistant Organisms: CRE Date of last positivie culture/infection: 10/16/18 Enterobacter intermedium CRE [facility] or other) MDRO Source:: Urine Past Surgical History: Bariatric Surgery Additional Past Surgical History / Comment(s): hx bariatric surgery-Kye En Y,lung biopsy,radioactive iodine-tx thyroid,rectal and bladder suspensions,vaginal surgery as a child,partha carpel tunnel,rt knee meniscus repair,D&C x3, left arm fistula 02/08/19 Past Anesthesia/Blood Transfusion Reactions: Previous Problems w/ Anesthesia, Postoperative Nausea & Vomiting (PONV) Additional Past Anesthesia/Blood Transfusion Reaction / Comment(s): decrease bp with anesthesia,no problems with prior blood transfusion Past Psychological History: No Psychological Hx Reported Smoking Status: Never smoker Past Alcohol Use History: None Reported Past Drug Use History: None Reported - Past Family History Father Family Medical History: Pulmonary Embolus Additional Family Medical History / Comment(s): . Mother Family Medical History: Cancer Additional Family Medical History / Comment(s): . Sister(s) Family Medical History: Cancer Additional Family Medical History / Comment(s): . Daughter(s) Additional Family Medical History / Comment(s): lymphedema in legs Medications and Allergies Home Medications Medication Instructions Recorded Confirmed Type Albuterol Nebulized [Ventolin 2.5 mg INHALATION RT-TID PRN 08/23/18 04/05/19 History Nebulized] Bumetanide [BUMEX] 1 mg PO DAILY@139908/23/18 04/05/19 History Calcitriol 0.5 mcg PO BID@1399,209908/23/18 04/05/19 History Docusate [Colace] 100 mg PO DAILY@139908/23/18 04/05/19 History FLUoxetine HCL [PROzac] 20 mg PO BID@1399,209908/23/18 04/05/19 History Fluticasone/Salmeterol [Advair 1 puff INHALATION RT-BID PRN 08/23/18 04/05/19 History 250-50 Diskus] Levothyroxine Sodium [Synthroid] 112 mcg PO MOTUWETHFRSA 08/23/18 04/05/19 History Levothyroxine Sodium [Synthroid] 224 mcg PO MURO 08/23/18 04/05/19 History Loratadine [Alavert] 10 mg PO DAILY@139908/23/18 04/05/19 History Midodrine [ProAmatine] 5 mg PO DAILY@139908/23/18 04/05/19 History Mometasone Inhalr 220 Mcg/Puff 2 puff INHALATION RT-HS PRN 08/23/18 04/05/19 History [Asmanex] Montelukast [Singulair] 10 mg PO HS 08/23/18 04/05/19 History Sodium Bicarbonate Tab 650 mg PO QID 08/23/18 04/05/19 History Midodrine [ProAmatine] 2.5 mg PO HS@209911/19/18 04/05/19 History Omeprazole 40 mg PO DAILY@139911/19/18 04/05/19 History Rising Mg64 W/Ca 1 tab PO DAILY@139911/19/18 04/05/19 History metroNIDAZOLE [Flagyl] 250 mg PO DAILY@139911/19/1819 History Albuterol Sulfate [Proair Hfa] 1 - 2 puff INHALATION RT-Q6H PRN 01/31/19 04/05/19 History Budesonide-Formot 160-4.5 Mcg 2 puff INHALATION RT-BID PRN 01/31/19 04/05/19 History [Symbicort 160-4.5 Mcg Inhaler] Docusate [Colace] 200 mg PO HS@2100 01/31/19 04/05/19 History Ergocalciferol (Vitamin D2) 50,000 unit PO MOWEFR 01/31/19 04/05/19 History [Vitamin D2] Potassium Chloride [Klor-Con 20] 20 meq PO TID 01/31/19 04/05/19 History traMADol HCl [Ultram] 50 mg PO Q8HR PRN 01/31/19 04/05/19 History Calcium Acetate [PhosLo] 667 mg PO TID-W/MEALS #90 cap 02/16/19 04/05/19 Rx Hydrocortisone Suppository 25 mg RECTAL DAILY PRN 04/05/19 04/05/19 History [Anusol-Hc] Ranitidine HCl [Zantac] 300 mg PO DAILY 04/05/19 04/05/19 History Allergies Allergy/AdvReac Type Severity Reaction Status Date / Time adhesive tape Allergy Rash/Hives Verified 04/05/19 16:22 Sulfa (Sulfonamide Allergy Itching Verified 04/05/19 16:22 Antibiotics) tetracycline Allergy Nausea & Verified 04/05/19 16:22 Vomiting codeine AdvReac Nausea Verified 04/05/19 16:22 Physical Exam Vitals: Vital Signs Temp Pulse Pulse Pulse Resp BP BP 04/06/19 07:00 98.1 F 74 16 04/06/19 01:27 97.7 F 84 18 04/05/19 19:10 98.0 F 65 16 04/05/19 17:56 71 15 04/05/19 17:30 97.9 F 71 15 128/81 04/05/19 16:50 98.0 F 67 18 108/78 04/05/19 15:11 64 04/05/19 14:58 62 04/05/19 13:17 97.8 F 75 16 101/67 BP Pulse Ox 04/06/19 07:00 110/67 100 11/02/19 01:27 95/59 97 04/05/19 19:10 120/74 100 04/05/19 17:56 04/05/19 17:30 95 04/05/19 16:50 98 04/05/19 15:11 04/05/19 14:58 04/05/19 13:17 100 Intake and Output 04/05/19 04/06/19 04/06/19 22:59 06:59 14:59 Intake Total 480 Balance 480 Intake: Oral 480 Other: Voiding Method Toilet Toilet # Voids 2 Weight 50.6 kg No acute distress S1-S2 heard Lungs clear Abdomen soft Lymphedema in both lower extremities, left forearm AV graft Results - Lab Results Most recent lab results Calcium 9.3 mg/dL (8.4-10.2) 04/06/19 06:22 Phosphorus 5.6 mg/dL (2.5-4.5) H 04/06/19 06:22 Magnesium 2.1 mg/dL (1.6-2.3) 04/06/19 06:22 04/05/19 14:55 04/06/19 06:22 Assessment and Plan Assessment: #1 CK D4 with worsening renal function and weight loss and shortness of breath. #2 low normal blood pressures on midodrine #3 significant weight loss. [She had complete hysterectomy, awaiting mammograms and colonoscopy.) #4 metabolic acidosis #5 hypokalemia with hyperphosphatemia Plan: #1 initiate hemodialysis with significant weight loss. Even though her creatinine is low but she has very little muscle mass. #2 plan hemodialysis again tomorrow and Monday. #3 check echocardiogram #4 continue with midodrine for hemodynamic support #5 continue with PhosLo for hyperphosphatemia and sodium bicarbonate for metabolic acidosis.
[2019-04-06] MEDS: PANTOPRAZOLE 40 MG TABLET PO SCH (13:18)
[2019-04-06] MEDS: FLUoxetine HCL 20 MG CAP PO SCH ×2 (13:19→20:40)
[2019-04-06] MEDS: CALCITRIOL 0.25 MCG CAP PO SCH ×2 (13:19→20:41)
[2019-04-06] MEDS: BUMETANIDE 1 MG TAB PO SCH (13:19)
[2019-04-06] MEDS: LORATADINE 10 MG TAB PO SCH (13:19)
[2019-04-06] MEDS: MIDODRINE 5 MG TAB PO SCH ×2 (13:19→20:40)
[2019-04-06] MEDS: DOCUSATE 100 MG CAP PO SCH ×2 (13:19→20:41)
[2019-04-06] MEDS: [UNRECOGNIZED DRUG - MIXTURE] PO SCH (13:20)
[2019-04-06] MEDS ORDERED: ONDANSETRON 4 MG/2 ML VIAL IVP PRN (17:27)
[2019-04-06] MEDS: MONTELUKAST 10 MG TAB PO SCH (20:40)
[2019-04-07] MEDS ORDERED: LEVOTHYROXINE 112 MCG TAB PO SCH (06:30)
[2019-04-07] MEDS: CALCIUM ACETATE 667 MG TAB PO SCH ×3 (08:41→18:09)
[2019-04-07] MEDS: SODIUM BICARBONATE TAB 650 MG TAB PO SCH ×4 (08:41→20:30)
[2019-04-07] MEDS ORDERED: MIDODRINE 5 MG TAB PO PRN (09:00)
--- NOTE | 2019-04-07 11:18 | P.PN ---
Subjective Progress Note Date: 04/07/19 Seen and examined for the follow-up of ESRD. Newly started dialysis yesterday. Tolerating well. Seen during dialysis today feels better than yesterday. No nausea vomiting or diarrhea. Objective - Vital Signs Vital signs: Vital Signs Temp 98.2 F 04/07/19 07:00 Pulse 80 04/07/19 07:00 Resp 16 04/07/19 07:00 BP 101/68 04/07/19 07:00 Pulse Ox 100 04/07/19 07:00 Intake & Output 04/06/19 04/07/19 04/07/19 19:59 06:59 18:59 Intake Total Output Total Balance Weight Intake: Oral Hemodialysis Output: Hemodialysis Other: Voiding Method # Voids - Exam No acute distress S1-S2 heard Lungs clear No edema Left forearm AVG - Labs CBC & Chem 7: 04/05/19 14:55 04/06/19 06:22 Assessment and Plan Assessment: #1 CKD4 with worsening renal function and weight loss and shortness of breath. Currently ESRD on dialysis #2 low normal blood pressures on midodrine #3 significant weight loss. [She had complete hysterectomy, awaiting mammograms and colonoscopy.) #4 metabolic acidosis #5 hypokalemia with hyperphosphatemia Plan: #1 started hemodialysis yesterday, today is day 2 of dialysis. Plan again on Monday. #2 check echocardiogram, with worsening shortness of breath and hypotension. #3 continue with midodrine for hemodynamic support #4 continue with PhosLo for hyperphosphatemia and sodium bicarbonate for metabolic acidosis. #5 case management work on outpatient dialysis placement.
--- NOTE | 2019-04-07 11:20 | P.PN ---
Subjective Progress Note Date: 04/07/19 Principal diagnosis: Shortness of breath Patient was seen and examined. No acute events overnight. Underwent dialysis session yesterday. Currently receiving dialysis session in room. Patient continues to complain of profound dyspnea especially with exertion to the bathroom. She denies any chest pain or palpitations. No nausea or vomiting. No fever or chills. Objective - Vital Signs Vital signs: Vital Signs Temp 98.2 F 04/07/19 07:00 Pulse 80 04/07/19 07:00 Resp 16 04/07/19 07:00 BP 101/68 04/07/19 07:00 Pulse Ox 100 04/07/19 07:00 Intake & Output 04/06/19 04/07/19 04/07/19 19:59 06:59 18:59 Intake Total Output Total Balance Weight Intake: Oral Hemodialysis Output: Hemodialysis Other: Voiding Method # Voids - Exam General: [non toxic], [no distress], [appears at stated age] Derm: [warm], [dry] Head: [atraumatic], [normocephalic], [symmetric] Eyes: [EOMI], [no lid lag], [anicteric sclera] Mouth: [no lip lesion], [mucus membranes moist] Cardiovascular: [S1S2 reg], [no murmur], [positive DP pulse bilateral], Lungs: [Decreased breath sounds bilateral with good air entry], [no rhonchi, no rales] , [no accessory muscle use] Abdominal: [soft], [ nontender to palpation], [no guarding], [no appreciable organomegaly] Ext: [no gross muscle atrophy], [no edema], [no contractures], [left upper extremity fistula with thrill] Neuro: [no focal neuro deficits] Psych: [Alert], [oriented], [appropriate affect] - Labs CBC & Chem 7: 04/05/19 14:55 04/06/19 06:22 Assessment and Plan Assessment: Assessment and plan Shortness of breath likely volume overload from ESRD Metabolic acidosis Myalgias COPD Chronic conditions: Hypothyroidism Resolved: Hypokalemia Chest x-ray showing signs of COPD. Patient is saturating high 90s on room air. VQ scan shows low probability of PE. Echocardiogram shows borderline concentric LVH with EF 60-65%. Plans: Dialysis yesterday and today as per nephrology recommendations. Restart calcium acetate. Potassium greater than 4 magnesium greater than 2. Continue Bumex. Follow-up echocardiogram to evaluate for pulmonary hypertension and valvular disorder. Repeat chest x-ray tomorrow morning. Bicarbonate of 15-16. Likely due to ESRD. Plans: Initiate dialysis. Continue sodium bicarb. Repeat BMP this morning. Follow nephrology recommendations. Likely due to hyperphosphatemia. Phosphorus 5.6. Plans: Continue calcium edouard sullivan. Repeat phosphorus today. Stable. Plans: Albuterol neb as needed for shortness of breath and wheezing. Continue Singulair. [Patient continues to feel short of breath despite dialysis. Echocardiogram pending. Likely DC in 1-2 days.]
[2019-04-07] MEDS: MIDODRINE 5 MG TAB PO SCH ×2 (13:47→20:29)
[2019-04-07] MEDS: FLUoxetine HCL 20 MG CAP PO SCH ×2 (13:47→20:30)
[2019-04-07] MEDS: LORATADINE 10 MG TAB PO SCH (13:47)
[2019-04-07] MEDS ORDERED: SODIUM CHLORIDE 0.9% 1,000 ML IV ONE (13:47)
[2019-04-07] MEDS: PANTOPRAZOLE 40 MG TABLET PO SCH (13:47)
[2019-04-07] MEDS: DOCUSATE 100 MG CAP PO SCH ×2 (13:48→20:29)
[2019-04-07] MEDS: FAMOTIDINE 20 MG TAB PO SCH (13:48)
[2019-04-07] MEDS: BUMETANIDE 1 MG TAB PO SCH (13:59)
[2019-04-07] MEDS: CALCITRIOL 0.25 MCG CAP PO SCH ×2 (14:00→20:30)
[2019-04-07] MEDS: [UNRECOGNIZED DRUG - MIXTURE] PO SCH (14:00)
[2019-04-07] MEDS ORDERED: SODIUM CHLORIDE 0.9% 500 ML 500 ML IV ONE (14:10)
[2019-04-07 15:18] LABS: Basophils # (A) 0.1 k/uL (0-0.2); Basophils % (A) 1 %; Eosinophils # (A) 0.1 k/uL (0-0.7); Eosinophils % (A) 1 %; HCT 32.7 % (34.0-46.0); HGB 10.4 gm/dL (11.4-16.0); Hypochromasia Slight; Lymphocytes # (A) 1.5 k/uL (1.0-4.8); Lymphocytes % (A) 17 %; MCH 31.8 pg (25.0-35.0); MCHC 31.9 g/dL (31.0-37.0); MCV 99.7 fL (80.0-100.0); Mean Platelet Volume 6.8; Monocytes # (A) 0.7 k/uL (0-1.0); Monocytes % (A) 8 %; Neutrophils # (A) 6.4 k/uL (1.3-7.7); Neutrophils % (A) 72 %; Platelet Count 142 k/uL (150-450); RBC 3.28 m/uL (3.80-5.40); RDW 13.9 % (11.5-15.5); WBC 8.9 k/uL (3.8-10.6)
[2019-04-07 15:36] LABS: Calcium 8.9 mg/dL (8.4-10.2); Magnesium 1.7 mg/dL (1.6-2.3); Phosphorus 3.4 mg/dL (2.5-4.5)
[2019-04-07 15:44] LABS: Potassium 2.7 mmol/L (3.5-5.1)
[2019-04-07] MEDS ORDERED: POTASSIUM CHLORIDE ER 20 MEQ TAB.ER PO STA (15:48)
[2019-04-07] MEDS: MONTELUKAST 10 MG TAB PO SCH (20:29)
[2019-04-07 22:37] LABS: Appearance,Urine Cloudy (Clear); Bacteria,Urine Moderate /hpf; Bilirubin,Urine Negative (Negative); Blood,Urine Negative (Negative); Color,Urine Yellow; Glucose,Urine (UA) Negative (Negative); Ketones,Urine Negative (Negative); Leukocyte Esterase,Urine Large (Negative); Mucus,Urine Rare /hpf; Nitrite,Urine Negative (Negative); PH, Urine 5.5 (5.0-8.0); Protein,Urine 1+ (Negative); RBC,Urine 1 /hpf (0-5); Specific Gravity,Urine 1.014 (1.001-1.035); Squamous Epithelial Cell,Urine 3 /hpf (0-4); Urobilinogen,Urine <2.0 mg/dL (<2.0)
[2019-04-08] MEDS: LEVOTHYROXINE 112 MCG TAB PO SCH (05:08)
[2019-04-08 07:34] LABS: Calcium 9.2 mg/dL (8.4-10.2); Potassium 3.4 mmol/L (3.5-5.1)
--- NOTE | 2019-04-08 07:54 | XR ---
EXAMINATION TYPE: XR chest 2V DATE OF EXAM: 04/08/2019 COMPARISON: 04/05/2019 HISTORY: Shortness of breath TECHNIQUE: Frontal and lateral views of the chest are obtained. FINDINGS: There is no focal air space opacity, pleural effusion, or pneumothorax seen. Pulmonary hyp erinflation with flattening of the diaphragms indicative of underlying COPD. The cardiac silhouette s ize is within normal limits. There is tortuosity of the descending thoracic aorta as seen on the prio r. The osseous structures are intact. Numerous surgical clips are seen in the upper abdomen. Diffuse osseous demineralization is noted. Mild multilevel degenerative changes of the spine. IMPRESSION: No acute cardiopulmonary process. Radiographic sequela of COPD.
--- NOTE | 2019-04-08 07:54 | CDI ---
Documentation Clarification Form Date: 04/08/2019 7:45:15 AM From: Rosangela Elmore RN, CCDS Admit Date: 04/07/2019 9:07:00 AM Patient Name: Margie Dallas Visit Number: [id number] ATTENTION: The Clinical Documentation Specialists (CDI) and [facility] Coding Staff appreciate your assistance in clarifying documentation. Please respond to the clarification below the line at the bottom and electronically sign. The CDI & [facility] Coding staff will review the response and follow-up if needed. Please note: Queries are made part of the Legal Health Record. If you have any questions, please contact the author of this message via ITS. Dr. Azalia Ha A BMI of 19.6 has been noted with documentation of "significant weight loss" in the medical record and requires further specificity. History/Risk Factors: CKD stage 4 advanced to ESRD this admission, SOB, pulmonary fibrosis, grave's disease, COPD Clinical Indicators: Labs: Hgb 11/10.4, K+ 3.3/2.7, BUN 52/30, Creatinine 2.77/2.88/2.02 Current BMI: 19.6 Weight Loss documented, with workup in progress Treatment: Dietary Consult: Completed 04/06 Supplements: Ensure Clear TID Lab monitoring: Am Daily In your professional opinion, can you please clarify if these findings signify one of the following conditions? Mild Protein-Calorie Malnutrition Moderate Protein-Calorie Malnutrition Severe Protein-Calorie Malnutrition Other condition, please specify Unable to determine (Last Revision: December 2018) moderate ___ MTDD
--- NOTE | 2019-04-08 08:00 | CDI ---
Documentation Clarification Form Date: 04/08/2019 7:54:51 AM From: Rosangela Elmore RN, CCDS Admit Date: 04/07/2019 9:07:00 AM Patient Name: Margie Dallas Visit Number: [id number] ATTENTION: The Clinical Documentation Specialists (CDI) and [facility] Coding Staff appreciate your assistance in clarifying documentation. Please respond to the clarification below the line at the bottom and electronically sign. The CDI & [facility] Coding staff will review the response and follow-up if needed. Please note: Queries are made part of the Legal Health Record. If you have any questions, please contact the author of this message via ITS. Dr. Azalia Meza declining Hgb and Hct have been noted and lacks specificity to accurately reflect your patients severity of condition and clarification is needed. History/Risk Factors: ESRD started on HD this admission, COPD, Graves disease, vitamin D Deficiency, recent weigt loss Clinical indicators: Hemoglobin: 11/10.4 Hematocrit: 34.3/32.7 Treatment: Labs AM Daily 1.5 L IVF Bolus In order to capture the severity of condition, please clarify the significance of the declining Hgb and Hct and etiology if known: Chronic blood loss anemia Iron deficiency anemia Nutritional anemia Anemia of chronic kidney disease Anemia of chronic disease (please specify) Unable to determine Other, please specify (Last Revision: March 2017) likely anemia of chronic kidney disease MTDD
--- NOTE | 2019-04-08 08:09 | CDI ---
Documentation Clarification Form Date: 04/08/2019 8:02:14 AM From: Rosangela Elmore RN, CCDS Admit Date: 04/07/2019 9:07:00 AM Patient Name: Margie Dallas Visit Number: [id number] ATTENTION: The Clinical Documentation Specialists (CDI) and [facility] Coding Staff appreciate your assistance in clarifying documentation. Please respond to the clarification below the line at the bottom and electronically sign. The CDI & [facility] Coding staff will review the response and follow-up if needed. Please note: Queries are made part of the Legal Health Record. If you have any questions, please contact the author of this message via ITS. Dr. Azalia Ha Fluid overload is documented with ESRD and requires further specificity. History/Risk Factors: ESRD started on HD this admission, chronic hypotension on midodrine, pulmonary fibrosis Clinical Indicators: 04/05 H&P: "Shortness of breath likely volume overload from ESRD." VS/Pulse OX: BNP: 784 Echocardiogram Results: ordered 04/05 Chest X Ray: "No acute cardiopulmonary process. Radiographic sequela of COPD." Treatment: Dialysis Bumex 1 mg PO QD Midodrine 5 mg PO QD 1.5 l IVF bolus In your professional opinion, can you please clarify the acuity and type of CHF if known? Systolic Heart Failure: Acute Chronic Acute on Chronic Diastolic Heart Failure: Acute Chronic Acute on Chronic Systolic & Diastolic Heart Failure: Acute Chronic Acute on Chronic Heart Failure Unable to Determine Other, please specify (Last Revision: September 2017) unable to determine because Echocardiogram not done at this time? MTDD
[2019-04-08] MEDS: SODIUM BICARBONATE TAB 650 MG TAB PO SCH ×3 (09:16→21:16)
[2019-04-08] MEDS: FAMOTIDINE 20 MG TAB PO SCH (09:16)
[2019-04-08] MEDS: ERGOCALCIFEROL 50,000 UNIT CAP PO SCH (09:16)
[2019-04-08] MEDS: CALCIUM ACETATE 667 MG TAB PO SCH ×3 (09:24→18:01)
--- NOTE | 2019-04-08 11:40 | P.PN ---
Subjective Progress Note Date: 04/08/19 Principal diagnosis: Shortness of breath Patient was seen and examined. No acute events overnight. He received dialysis session yesterday. Also getting dialysis session this morning. States that after dialysis, she attempted to stand up from her bed to use the bathroom. Marybeth cifuentes reports experiencing prodrome of sweating, nausea and palpitations prior to sitting down on the commode. She required help from nursing to get back to the bed. Her orthostatics were positive at that time and she was bolused 500 mL. Patient continues to report shortness of breath only with minimal exertion. She denies any chest pain. Objective - Vital Signs Vital signs: Vital Signs Temp 98 F 04/08/19 07:00 Pulse 64 04/08/19 07:00 Resp 12 04/08/19 07:00 BP 100/64 04/08/19 07:00 Pulse Ox 97 04/08/19 07:00 Intake & Output 04/07/19 04/08/19 04/08/19 18:59 06:59 18:59 Intake Total 960 Output Total 820 60 Balance -820 900 Weight 50.3 kg Intake: Oral 960 Output: Urine 60 Hemodialysis 820 Other: Voiding Method Toilet Toilet Toilet # Voids 2 1 # Bowel Movements 2 - Exam General: [non toxic], [no distress], [appears at stated age] Derm: [warm], [dry] Head: [atraumatic], [normocephalic], [symmetric] Eyes: [EOMI], [no lid lag], [anicteric sclera] Mouth: [no lip lesion], [mucus membranes moist] Cardiovascular: [S1S2 reg], [no murmur], [positive DP pulse bilateral], Lungs: [Decreased breath sounds bilateral with good air entry], [no rhonchi, no rales] , [no accessory muscle use] Abdominal: [soft], [ nontender to palpation], [no guarding], [no appreciable organomegaly] Ext: [no gross muscle atrophy], [no edema], [no contractures], [left upper extremity fistula with thrill] Neuro: [no focal neuro deficits] Psych: [Alert], [oriented], [appropriate affect] - Labs CBC & Chem 7: 04/07/19 15:08 04/08/19 06:49 Labs: Abnormal Lab Results - Last 24 Hours (Table) 04/07/19 04/07/19 04/07/19 Range/Units 15:08 15:08 21:23 RBC 3.28 L (3.80-5.40) m/uL Hgb 10.4 L (11.4-16.0) gm/dL Hct 32.7 L (34.0-46.0) % Plt Count 142 L (150-450) k/uL Potassium 2.7 L* (3.5-5.1) mmol/L Carbon Dioxide 19 L (22-30) mmol/L BUN 30 H (7-17) mg/dL Creatinine 2.02 H (0.52-1.04) mg/dL Urine Appearance Cloudy H (Clear) Urine Protein 1+ H (Negative) Ur Leukocyte Esterase Large H (Negative) Urine WBC 93 H (0-5) /hpf Urine Bacteria Moderate H (None) /hpf Urine Mucus Rare H (None) /hpf 04/08/19 Range/Units 06:49 RBC (3.80-5.40) m/uL Hgb (11.4-16.0) gm/dL Hct (34.0-46.0) % Plt Count (150-450) k/uL Potassium 3.4 L (3.5-5.1) mmol/L Carbon Dioxide (22-30) mmol/L BUN 42 H (7-17) mg/dL Creatinine 2.60 H (0.52-1.04) mg/dL Urine Appearance (Clear) Urine Protein (Negative) Ur Leukocyte Esterase (Negative) Urine WBC (0-5) /hpf Urine Bacteria (None) /hpf Urine Mucus (None) /hpf Microbiology - Last 24 Hours (Table) 04/07/19 21:23 Urine Culture - Preliminary Urine,Voided Assessment and Plan Assessment: Assessment and plan Presyncope Shortness of breath likely volume overload from ESRD, rule out valvular disorder, pulmonary hypertension Hypokalemia COPD Chronic conditions: Hypothyroidism Resolved: Hypokalemia, metabolic acidosis, hyperphosphatemia and myalgias Orthostats positive yesterday after dialysis, given 500 mL bolus. 1 L pulled o ut from dialysis yesterday. Likely related to dialysis. Plans: Discontinue Bumex. Discussed with RN, check orthostats after dialysis. We'll discuss with nephrology regarding dialysis. Follow echocardiogram. Chest x-ray showing signs of COPD. Patient is saturating high 90s on room air. VQ scan shows low probability of PE. Echocardiogram shows borderline concentric LVH with EF 60-65% on previous admission. Chest x-ray this morning shows no acute cardiopulmonary process. Plans: Dialysis yesterday and today as per nephrology recommendations. Restart calcium acetate. Potassium greater than 4 magnesium greater than 2. Follow-up echocardiogram to evaluate for pulmonary hypertension and valvular disorder. Potassium 2.7-3.4. Plans: Plans to replace via protocol. Repeat BMP tomorrow morning. Stable. Plans: Albuterol neb as needed for shortness of breath and wheezing. Continue Singulair. [Patient continues to feel short of breath despite dialysis. Echocardiogram and orthostats pending. Likely DC in 1-2 days.]
[2019-04-08] MEDS: MIDODRINE 5 MG TAB PO SCH ×2 (13:54→21:17)
[2019-04-08] MEDS ORDERED: SODIUM CHLORIDE 0.9% 500 ML 500 ML IV ONE (14:54)
[2019-04-08] MEDS: PANTOPRAZOLE 40 MG TABLET PO SCH (16:25)
[2019-04-08] MEDS: FLUoxetine HCL 20 MG CAP PO SCH ×2 (16:25→21:16)
[2019-04-08] MEDS: DOCUSATE 100 MG CAP PO SCH ×2 (16:26→21:16)
[2019-04-08] MEDS: LORATADINE 10 MG TAB PO SCH (16:26)
[2019-04-08] MEDS: [UNRECOGNIZED DRUG - MIXTURE] PO SCH (16:29)
[2019-04-08] MEDS: CALCITRIOL 0.25 MCG CAP PO SCH ×2 (16:29→21:16)
--- NOTE | 2019-04-08 16:42 | PN ---
PROGRESS NOTE The patient is seen for followup for end-stage renal disease. She has been started on hemodialysis, receiving her third treatment today. The patient is currently seen on dialysis. She is doing fairly well. However, she has had episodes of hypotension. She continues to complain of feeling weak and was also short of breath. Blood pressure was noted to be as low as 74 mmHg systolic. However, mostly we have blood pressure around 100 mmHg systolic. EXAMINATION: During her dialysis treatment blood pressure has been about 100-90 mmHg. Heart rate about 70-75 per minute. Patient is afebrile. Examination of the heart S1, S2. Examination of the lungs, decreased breath sounds at bases. Examination of lower extremities shows no significant edema. LABS: Sodium 137, potassium 3.4, BUN 42, serum creatinine 2.6, hemoglobin 10.4 g/dL. ASSESSMENT: 1. End-stage renal disease, started on hemodialysis this admission. Continue dialysis for now and decrease goal ultrafiltration. 2. Hypotension, maintained on midodrine. Check cortisol level. 3. Hypokalemia, currently being replaced. 4. Chronic kidney disease mineral bone disorder, maintained on Rocaltrol. 5. Metabolic acidosis. The patient was maintained on sodium bicarb which we can discontinue now as she has been started on dialysis. 6. Hyperphosphatemia associated with renal failure. PLAN: Decrease sodium bicarb and eventually DC it as outpatient. Continue with the midodrine. Check random cortisol level. The patient will benefit from rehab. MMBRISSAL / MARINO: [id number] /
[2019-04-08 17:42] LABS: Hepatitis B Surface AB- Quant 15.8 mIU/mL; Hepatitis B Surface Antibody Reactive (Non-Reactive); Hepatitis B Surface Antigen Non-Reactive (Non-Reactive)
[2019-04-08] MEDS: MONTELUKAST 10 MG TAB PO SCH (21:16)
[2019-04-09] MEDS: LEVOTHYROXINE 112 MCG TAB PO SCH (05:36)
[2019-04-09 07:28] LABS: Basophils # (A) 0.1 k/uL (0-0.2); Basophils % (A) 1 %; Eosinophils # (A) 0.2 k/uL (0-0.7); Eosinophils % (A) 3 %; HCT 29.9 % (34.0-46.0); HGB 9.7 gm/dL (11.4-16.0); Lymphocytes # (A) 2.3 k/uL (1.0-4.8); Lymphocytes % (A) 33 %; MCH 31.6 pg (25.0-35.0); MCHC 32.4 g/dL (31.0-37.0); MCV 97.7 fL (80.0-100.0); Mean Platelet Volume 6.8; Monocytes # (A) 0.5 k/uL (0-1.0); Monocytes % (A) 7 %; Neutrophils # (A) 3.8 k/uL (1.3-7.7); Neutrophils % (A) 54 %; Platelet Count 137 k/uL (150-450); RBC 3.06 m/uL (3.80-5.40); RDW 13.6 % (11.5-15.5); WBC 7.1 k/uL (3.8-10.6)
[2019-04-09 07:58] LABS: Potassium 3.1 mmol/L (3.5-5.1)
[2019-04-09] MEDS: SODIUM BICARBONATE TAB 650 MG TAB PO SCH ×2 (08:58→21:02)
[2019-04-09] MEDS: CALCIUM ACETATE 667 MG TAB PO SCH ×3 (08:58→17:22)
[2019-04-09] MEDS: FAMOTIDINE 20 MG TAB PO SCH (08:58)
--- NOTE | 2019-04-09 10:38 | ECHOF ---
Referral Reason:sob MEASUREMENTS -------- HEIGHT: 160.0 cm WEIGHT: 49.9 kg BP: 106/66 IVSd: 1.0 cm (0.6 - 1.1) LVIDd: 3.7 cm (3.9 - 5.3) LVPWd: 1.3 cm (0.6 - 1.1) IVSs: 1.4 cm LVIDs: 2.3 cm LVPWs: 1.4 cm LAESV Index (A-L): 12.20 ml/m Ao Diam: 3.5 cm (2.0 - 3.7) AV Cusp: 1.6 cm (1.5 - 2.6) MV E Hawk: 0.58 m/s MV DecT: 225 ms MV A Hawk: 0.69 m/s MV E/A Ratio: 0.85 RAP: 5.00 mmHg RVSP: 28.37 mmHg FINDINGS -------- Sinus rhythm. This was a technically difficult study with suboptimal parasternal views. The left ventricular size is normal. There is mild concentric left ventricular hypertrophy. Overa ll left ventricular systolic function is normal with, an EF between 55 - 60 %. The diastolic fillin g pattern is normal for the age of the patient 8.30. The right ventricle is normal in size. Normal LA size by volume 22+/-6 ml/m2. The right atrium is normal in size. Interatrial and interventricular septum intact. The aortic valve was not well visualized. There is no evidence of aortic regurgitation. There is no evidence of aortic stenosis. No mitral regurgitation. Trace tricuspid regurgitation present. There is no evidence of pulmonary hypertension. The right ventricular systolic pressure, as measured by Doppler, is 28.37mmHg. The pulmonic valve was not well visualized. There is no pulmonic regurgitation present. The aortic root size is normal. Normal inferior vena cava with normal inspiratory collapse consistent with estimated right atrial pre ssure of 5 mmHg. Echo free space may represent effusion or a pericardial fat pad. CONCLUSIONS -------- 1. Sinus rhythm. 2. This was a technically difficult study with suboptimal parasternal views. 3. The left ventricular size is normal. 4. There is mild concentric left ventricular hypertrophy. 5. Overall left ventricular systolic function is normal with, an EF between 55 - 60 %. 6. The diastolic filling pattern is normal for the age of the patient 8.30 7. The right ventricle is normal in size. 8. Normal LA size by volume 22+/-6 ml/m2. 9. The right atrium is normal in size. 10. Interatrial and interventricular septum intact. 11. The aortic valve was not well visualized. 12. There is no evidence of aortic regurgitation. 13. There is no evidence of aortic stenosis. 14. No mitral regurgitation. 15. Trace tricuspid regurgitation present. 16. There is no evidence of pulmonary hypertension. 17. The right ventricular systolic pressure, as measured by Doppler, is 28.37mmHg. 18. The pulmonic valve was not well visualized. 19. There is no pulmonic regurgitation present. 20. The aortic root size is normal. 21. Normal inferior vena cava with normal inspiratory collapse consistent with estimated right atrial pressure of 5 mmHg. 22. Echo free space may represent effusion or a pericardial fat pad. COSTUME RENTAL CLERK: Nina Cordova RDCS
[2019-04-09] MEDS ORDERED: POTASSIUM CHLORIDE ER 20 MEQ TAB.ER PO STA (11:06)
[2019-04-09] MEDS: MIDODRINE 5 MG TAB PO SCH ×2 (14:16→21:02)
[2019-04-09] MEDS: FLUoxetine HCL 20 MG CAP PO SCH ×2 (14:16→21:02)
[2019-04-09] MEDS: PANTOPRAZOLE 40 MG TABLET PO SCH (14:16)
[2019-04-09] MEDS: DOCUSATE 100 MG CAP PO SCH ×2 (14:17→21:03)
[2019-04-09] MEDS: LORATADINE 10 MG TAB PO SCH (14:17)
[2019-04-09] MEDS: CALCITRIOL 0.25 MCG CAP PO SCH ×2 (14:41→21:20)
[2019-04-09] MEDS: [UNRECOGNIZED DRUG - MIXTURE] PO SCH (14:42)
--- NOTE | 2019-04-09 17:17 | P.PN ---
Subjective Progress Note Date: 04/09/19 (weakness) Principal diagnosis: shortness of breath Patient is a 73-year-old female past medical history of chronic kidney disease stage 5, hypothyroidism, COPD/asthma, and pulmonary fibrosis who presented to the emergency department for shortness of breath and dizziness. On arrival to the ER her vital signs were within normal limits. On arrival to the ER 0.3, chloride 111, carbon dioxide 15, BUN 52, creatinine 2.77. Nephrology was contacted and there was plans to initiate dialysis. She was seen by nephrology and initiated on dialysis. She is on have low normal blood pressures and was continued on Midrin. Urinalysis showed 93 white blood cells. Urine culture came back greater than 100,000 white blood cells. Objective - Vital Signs Vital signs: Vital Signs Temp 98 F 04/09/19 13:57 Pulse 82 04/09/19 13:57 Resp 14 04/09/19 13:57 BP 110/70 04/09/19 13:57 Pulse Ox 98 04/09/19 13:57 Intake & Output 04/08/19 04/09/19 04/09/19 18:59 06:59 18:59 Intake Total 800 480 Output Total 1300 50 50 Balance -500 430 -50 Weight 50.7 kg Intake: IV 500 Sodium Chloride 0.9% 500 500 ml 500 ml @ 999 mls/hr IV .Q31M [facility] Rx#:[id number] Oral 480 Hemodialysis 300 Output: Urine 50 50 Hemodialysis 1300 Other: Voiding Method Toilet Toilet - Labs CBC & Chem 7: 04/09/19 06:37 04/09/19 06:37 Labs: Abnormal Lab Results - Last 24 Hours (Table) 04/08/19 04/09/19 04/09/19 Range/Units 06:49 06:37 06:37 RBC 3.06 L (3.80-5.40) m/uL Hgb 9.7 L (11.4-16.0) gm/dL Hct 29.9 L (34.0-46.0) % Plt Count 137 L (150-450) k/uL Sodium 136 L (137-145) mmol/L Potassium 3.1 L (3.5-5.1) mmol/L Carbon Dioxide 21 L (22-30) mmol/L BUN 31 H (7-17) mg/dL Creatinine 2.02 H (0.52-1.04) mg/dL Hep Bs Antibody Reactive H (Non-Reactive) Microbiology - Last 24 Hours (Table) 04/07/19 21:23 Urine Culture - Preliminary Urine,Voided Gram Neg Bacilli Assessment and Plan Assessment: ESRD with acute volume overload , CKD with minral bone disease -Newly started on dialysis will be T,T,S - Rocaltrol, phoslo, bicarb - nephro recs Orthostatic hypotension with presyncope -For the patient this has been ongoing but is now exacerbated. Patient and are very concerned -Has seen Dr. Flynn in the past -Midodrin has been increased -Discussed with Dr. 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
[2019-04-09] MEDS ORDERED: HYDROCORTISONE SUCCINATE 100 MG/2 ML VIAL IV STA (20:31)
[2019-04-09] MEDS ORDERED: HYDROCORTISONE 10 MG TAB PO SCH (21:00)
[2019-04-09] MEDS: MONTELUKAST 10 MG TAB PO SCH (21:02)
--- NOTE | 2019-04-09 22:16 | PN ---
PROGRESS NOTE Patient is seen for followup for end-stage renal disease. She has had 3 treatments of hemodialysis. Overall patient states she is feeling better. However, she continues to complain of weakness and lightheadedness on standing. She does have orthostatic hypotension. Patient is maintained on midodrine. Her blood pressures, however, have recently been above 100 systolic. A previous cortisol level was at 17 about 2 months ago. A repeat cortisol was ordered yesterday and it did come back a little bit on the lower side at 10. Recently we have not removed a lot of fluid with hemodialysis. PHYSICAL EXAMINATION: On examination today, blood pressure was 101/67. Patient is afebrile. Heart rate about 82 per minute/ Examination of lower extremities shows no evidence of edema. ABDOMEN: Soft, non-tender. Patient has a left arm AV graft which is functional. LABS: Hemoglobin 9.7, sodium 136, potassium 3.1, BUN 31, serum creatinine 2.0. ASSESSMENT: 1. End-stage renal disease. Maintain patient on hemodialysis. She will be maintained on a Monday, , Monday schedule as outpatient. We will plan for her treatment tomorrow with no ultrafiltration. 2. Hypotension with cortisol level slightly on the lower side. Continue with the midodrine and I will add Cortef. We can wean down the Cortef down the road as outpatient. Echocardiogram was unremarkable. 3. Hypokalemia, currently being replaced. 4. Generalized debility. 5. Chronic kidney disease mineral bone disorder, maintained on Rocaltrol and PhosLo. 6. Anemia of chronic disease. PLAN: Add Cortef. Hydrocortisone IV x1 today. Continue with midodrine. Hemodialysis tomorrow with no significant ultrafiltration. Hemodialysis in a.m. Add steroids. Patient is set up for outpatient dialysis starting . MMODL / IJN: [id number] /
[2019-04-10] MEDS: LEVOTHYROXINE 112 MCG TAB PO SCH (05:36)
[2019-04-10] MEDS: CALCIUM ACETATE 667 MG TAB PO SCH ×3 (07:23→17:03)
[2019-04-10] MEDS: SODIUM BICARBONATE TAB 650 MG TAB PO SCH ×2 (07:23→21:01)
[2019-04-10] MEDS: ERGOCALCIFEROL 50,000 UNIT CAP PO SCH (07:23)
[2019-04-10] MEDS: FAMOTIDINE 20 MG TAB PO SCH (07:23)
[2019-04-10] MEDS: HYDROCORTISONE 10 MG TAB PO SCH ×2 (07:24→21:02)
[2019-04-10 08:32] LABS: HCT 30.6 % (34.0-46.0); HGB 9.6 gm/dL (11.4-16.0); Hypochromasia Slight; MCH 31.6 pg (25.0-35.0); MCHC 31.3 g/dL (31.0-37.0); Macrocytosis Slight; Mean Platelet Volume 7.3; Platelet Count 169 k/uL (150-450); RBC 3.03 m/uL (3.80-5.40); RDW 13.6 % (11.5-15.5); WBC 8.6 k/uL (3.8-10.6)
[2019-04-10 08:42] LABS: Calcium 9.5 mg/dL (8.4-10.2); Potassium 3.8 mmol/L (3.5-5.1)
[2019-04-10] MEDS: MIDODRINE 5 MG TAB PO SCH ×3 (10:36→17:02)
[2019-04-10] MEDS ORDERED: LIDOCAINE-PRILOCAINE 2.5-2.5% CREAM 5 GM TUBE TOPICAL STA (10:40)
[2019-04-10] MEDS ORDERED: LIDOCAINE-PRILOCAINE 2.5-2.5% CREAM 5 GM TUBE TOPICAL PRN (10:42)
--- NOTE | 2019-04-10 11:40 | P.CRDCN ---
History of Present Illness History of present illness: This is a pleasant 73-year-old female past medical history significant for COPD, lymphedema, chronic kidney disease and chronic recurrent syncope. She follows in the office with Dr. Price. We have been asked to see her in consultation secondary to persistent hypotension. 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 She has undergone 3 treatments of dialysis since admission. Blood pressures have been running in the 90-100 systolic range. This morning while working with physical therapy her blood pressure sitting was 103/68 and standing was 79/48 and she was quite symptomatic. Currently maintained on midodrine 5 mg in the am and 2.5 mg in the evening. Bumex prescribed for chronic lymphedema has been held. She denies chest pain, shortness of breath or palpitations. EKG reveals sinus mechanism heart rate of 65 first-degree AV block, nonspecific ST changes. Chest x-ray on admission is negative for an acute cardiopulmonary process with evidence of hyperinflation indicative of COPD. VQ scan reveals matching defects in the upper lobes consistent with airway disease and low probability for PE. Echocardiogram reveals preserved LV systolic function with ejection fraction 55- 60% and normal diastolic filling pattern. Laboratory data reviewed, WBC 8.6, hemoglobin 9.6, platelets 169, sodium 136, potassium 3.8, creatinine 2.73, troponin negative 2, cortisol 10, proBNP 784. Current daily cardiac medications include Bumex 1 mg daily for lymphedema. Most recent stress test in the office 11/2018 was a lexiscan stress test and it was negative for reversibility. At the time of my exam: CONSTITUTIONAL: Denies fever. Denies chills. EYES: Denies blurred vision. Denies vision changes. Denies eye pain. EARS, NOSE, MOUTH & THROAT: Denies headache. Denies sore throat. Denies ear pain. CARDIOVASCULAR: Denies chest pain. Denies shortness of breath. Denies orthopnea. Denies PND. Denies palpitations. RESPIRATORY: Denies cough. GASTROINTESTINAL: Denies abdominal pain. Denies diarrhea. Denies constipation. Denies nausea. Denies vomiting. MUSCULOSKELETAL: Denies myalgias. INTEGUMENTARY: Denies pruitis. Denies rash. NEUROLOGIC: Denies numbness. Denies tingling. Denies weakness. PSYCHIATRIC: Denies anxiety. Denies depression. ENDOCRINE: Denies fatigue. Denies weight change. Denies polydipsia. Denies polyurina. GENITOURINARY: Denies burning, hematuria or urgency with micturation. HEMATOLOGIC: Denies history of anemia. Denies bleeding. Blood pressure sitting 103/68 standing 79/48 heart rate sitting 69 standing 109. GENERAL: This is a 73-year-old female in no apparent distress at the time of my examination. HEENT: Head is atraumatic, normocephalic. Pupils are equal, round. Sclerae anicteric. Conjunctivae are clear. Mucous membranes of the mouth are moist. Neck is supple. There is no jugular venous distention. No carotid bruit is heard. LUNGS: Clear to auscultation no wheezes, rales or rhonchi. No chest wall tenderness is noted on palpation or with deep breathing. HEART: Regular rate and rhythm without murmurs, rubs or gallops. S1 and S2 heard. ABDOMEN: Soft, nontender. Bowel sounds are heard. No organomegaly noted. EXTREMITIES: Bilateral lower extremity non-pitting edema and no calf tenderness noted. VASCULAR: Radial and dorsalis pedis pulses palpated, no evidence of clubbing. NEUROLOGIC: Patient is awake, alert and oriented x3. ASSESSMENT Orthostatic hypotension, history of chronic hypotension maintained on midodrine Hypokalemia Near syncope at home multiple times prior to arrival Chronic renal failure recently started on HD Lymphedema COPD Pulmonary fibrosis PLAN Increase midodrine to 5 mg TID before meals. Cortef has also been added by nephrology. Apply bilateral lower extremity PATT hose. Advised her to rise slowly and sit at the edge of the bed for a minute before standing. Thank you kindly for this consultation. Nurse Practitioner note has been reviewed, I agree with a documented findings and plan of care. Patient was seen and examined. Past Medical History Past Medical History: COPD, Osteoarthritis (OA), Renal Disease, Thyroid Disorder Additional Past Medical History / Comment(s): kidney stones and UTI,steroid injection October 2018 hx lymphedema, hx pulmonary fibrosis, hx graves,hx rt foot torn ligaments,hx kidney stones, hx osteoporosis,hypotension, chronic re spiratory failure on 2 L nasal cannula at night & prn, vitamine D deficiency, hypocalcemia History of Any Multi-Drug Resistant Organisms: CRE Date of last positivie culture/infection: 10/16/18 Enterobacter MDRO-CRE (per [facility] & additional tests-Negative) MDRO Source:: Urine Past Surgical History: Bariatric Surgery Additional Past Surgical History / Comment(s): hx bariatric surgery-Kye En Y,lung biopsy,radioactive iodine-tx thyroid,rectal and bladder suspensions,vagin al surgery as a child,partha carpel tunnel,rt knee meniscus repair,D&C x3, left arm fistula 02/08/19 Past Anesthesia/Blood Transfusion Reactions: Previous Problems w/ Anesthesia, P ostoperative Nausea & Vomiting (PONV) Additional Past Anesthesia/Blood Transfusion Reaction / Comment(s): decrease bp with anesthesia,no problems with prior blood transfusion Past Psychological History: No Psychological Hx Reported Smoking Status: Never smoker Past Alcohol Use History: None Reported Past Drug Use History: None Reported - Past Family History Father Family Medical History: Pulmonary Embolus Additional Family Medical History / Comment(s): . Mother Family Medical History: Cancer Additional Family Medical History / Comment(s): . Sister(s) Family Medical History: Cancer Additional Family Medical History / Comment(s): . Daughter(s) Additional Family Medical History / Comment(s): lymphedema in legs Medications and Allergies Home Medications Medication Instructions Recorded Confirmed Type Albuterol Nebulized [Ventolin 2.5 mg INHALATION RT-TID PRN 08/23/18 04/05/19 History Nebulized] Bumetanide [BUMEX] 1 mg PO DAILY@1400 08/23/18 04/05/19 History Calcitriol 0.5 mcg PO BID@1400,209908/23/18 04/05/19 History Docusate [Colace] 100 mg PO DAILY@1400 08/23/18 04/05/19 History FLUoxetine HCL [PROzac] 20 mg PO BID@1400,209908/23/18 04/05/19 History Fluticasone/Salmeterol [Advair 1 puff INHALATION RT-BID PRN 08/23/18 04/05/19 History 250-50 Diskus] Levothyroxine Sodium [Synthroid] 112 mcg PO MOTUWETHFRSA 08/23/18 04/05/19 History Levothyroxine Sodium [Synthroid] 224 mcg PO MURO 08/23/18 04/05/19 History Loratadine [Alavert] 10 mg PO DAILY@1400 08/23/18 04/05/19 History Midodrine [ProAmatine] 5 mg PO DAILY@139908/23/18 04/05/19 History Mometasone Inhalr 220 Mcg/Puff 2 puff INHALATION RT-HS PRN 08/23/18 04/05/19 History [Asmanex] Montelukast [Singulair] 10 mg PO HS 08/23/18 04/05/19 History Sodium Bicarbonate Tab 650 mg PO QID 08/23/18 04/05/19 History Midodrine [ProAmatine] 2.5 mg PO HS@209911/19/18 04/05/19 History Omeprazole 40 mg PO DAILY@139911/19/18 04/05/19 History Rising Mg64 W/Ca 1 tab PO DAILY@139911/19/18 04/05/19 History metroNIDAZOLE [Flagyl] 250 mg PO DAILY@139911/19/18 04/05/19 History Albuterol Sulfate [Proair Hfa] 1 - 2 puff INHALATION RT-Q6H PRN 01/31/19 04/05/19 History Budesonide-Formot 160-4.5 Mcg 2 puff INHALATION RT-BID PRN 01/31/19 04/05/19 History [Symbicort 160-4.5 Mcg Inhaler] Docusate [Colace] 200 mg PO HS@209901/31/19 04/05/19 History Ergocalciferol (Vitamin D2) 50,000 unit PO MOWEFR 01/31/19 04/05/19 History [Vitamin D2] Potassium Chloride [Klor-Con 20] 20 meq PO TID 01/31/19 04/05/19 History traMADol HCl [Ultram] 50 mg PO Q8HR PRN 01/31/19 04/05/19 History Calcium Acetate [PhosLo] 667 mg PO TID-W/MEALS #90 cap 02/16/19 04/05/19 Rx Hydrocortisone Suppository 25 mg RECTAL DAILY PRN 04/05/19 04/05/19 History [Anusol-Hc] Ranitidine HCl [Zantac] 300 mg PO DAILY 04/05/19 04/05/19 History Allergies Allergy/AdvReac Type Severity Reaction Status Date / Time adhesive tape Allergy Rash/Hives Verified 04/05/19 16:22 Sulfa (Sulfonamide Allergy Itching Verified 04/05/19 16:22 Antibiotics) tetracycline Allergy Nausea & Verified 04/05/19 16:22 Vomiting codeine AdvReac Nausea Verified 04/05/19 16:22 Physical Exam Vitals: Vital Signs Temp Pulse Resp BP BP BP BP 04/10/19 09:45 109 H 16 103/68 79/48 04/10/19 08:00 72 16 04/10/19 07:00 97.6 F 72 16 130/78 04/10/19 00:53 97.5 F L 70 13 98/58 04/09/19 19:41 98.1 F 81 18 104/68 04/09/19 13:57 98 F 82 14 110/70 Pulse Ox 04/10/19 09:45 60 L 04/10/19 08:00 04/10/19 07:00 99 04/10/19 00:53 99 04/09/19 19:41 96 04/09/19 13:57 98 Intake and Output 04/09/19 04/10/19 04/10/19 22:59 06:59 14:59 Intake Total 50 Balance 50 Intake: Intake, IV Titration 50 Amount cefTRIAXone 1 gm In 50 Sodium Chloride 0.9% 50 ml @ 100 mls/hr IVPB Q24HR [facility] Rx#:[id number] Other: Voiding Method Toilet Toilet # Voids 1 1 Weight 51.3 kg Results 04/10/19 07:14 04/10/19 07:14 CBC 04/10/19 Range/Units 07:14 WBC 8.6 (3.8-10.6) k/uL RBC 3.03 L (3.80-5.40) m/uL Hgb 9.6 L (11.4-16.0) gm/dL Hct 30.6 L (34.0-46.0) % Plt Count 169 (150-450) k/uL Comprehensive Metabolic Panel 04/10/19 Range/Units 07:14 Sodium 136 L (137-145) mmol/L Potassium 3.8 (3.5-5.1) mmol/L Chloride 108 H (98-107) mmol/L Carbon Dioxide 16 L (22-30) mmol/L BUN 48 H (7-17) mg/dL Creatinine 2.73 H (0.52-1.04) mg/dL Glucose 111 H (74-99) mg/dL Calcium 9.5 (8.4-10.2) mg/dL Current Medications Generic Name Dose Route Start Last Admin Trade Name Freq PRN Reason Stop Dose Admin Albuterol Sulfate 2.5 mg 04/05/19 17:52 Ventolin Nebulized INHALATION RT-TID PRN Shortness Of Breath Calcitriol 0.5 mcg 04/05/19 21:00 04/09/19 21:20 Rocaltrol PO 0.5 mcg BID@1400,2100 [facility] Administration Calcium Acetate 667 mg 04/06/19 07:30 04/10/19 07:23 Phoslo PO 667 mg TID-W/MEALS [facility] Administration Docusate Sodium 100 mg 04/06/19 14:00 04/09/19 14:17 Colace PO 100 mg DAILY@1400 [facility] Administration Docusate Sodium 200 mg 04/05/19 21:00 04/09/19 21:03 Colace PO 200 mg HS@2100 [facility] Administration Ergocalciferol 50,000 unit 04/08/19 09:00 04/10/19 07:23 Vitamin D2 PO 50,000 unit MOWEFR [facility] Administration Famotidine 40 mg 04/06/19 09:00 04/10/19 07:23 Pepcid PO 40 mg DAILY [facility] Administration Fluoxetine HCl 20 mg 04/05/19 21:00 04/09/19 21:02 Prozac PO 20 mg BID@1400,2100 [facility] Administration Hydrocortisone 15 mg 04/10/19 09:00 04/10/19 07:24 Cortef PO 15 mg BID [facility] Administration Ceftriaxone Sodium 1 gm/ 50 mls @ 100 mls/hr 04/09/19 17:15 04/09/19 17:22 Sodium Chloride IVPB 100 mls/hr Q24HR [facility] Administration Levothyroxine Sodium 112 mcg 04/06/19 06:30 04/10/19 05:36 Synthroid PO 112 mcg MOTUWETHFRSA [facility] Administration Levothyroxine Sodium 224 mcg 04/07/19 06:30 04/07/19 05:19 Synthroid PO 224 mcg MURO [facility] Administration Lidocaine/Prilocaine 1 applic 04/10/19 10:42 Emla Cream 2.5%/2.5% TOPICAL ONCE PRN Pain Loratadine 10 mg 04/06/19 14:00 04/09/19 14:17 Claritin PO 10 mg DAILY@1400 [facility] Administration Midodrine 5 mg 04/10/19 09:00 04/10/19 10:36 Proamatine PO 5 mg AC-TID [facility] Administration Montelukast Sodium 10 mg 04/05/19 21:00 04/09/19 21:02 Singulair PO 10 mg HS [facility] Administration Naloxone HCl 0.2 mg 04/05/19 15:58 Narcan IV Q2M PRN Opioid Reversal Non-Formulary Medication 1 tab 04/06/19 14:00 04/09/19 14:42 Rising Mg64 W/Ca PO Not Given DAILY@1400 [facility] Ondansetron HCl 4 mg 04/06/19 17:27 Zofran IVP Q6HR PRN Nausea And Vomiting Pantoprazole Sodium 40 mg 04/06/19 14:00 04/09/19 14:16 Protonix PO 40 mg DAILY@1400 [facility] Administration Sodium Bicarbonate 650 mg 04/08/19 21:00 04/10/19 07:23 Sodium Bicarbonate Tab PO 650 mg BID [facility] Administration Tramadol HCl 50 mg 04/05/19 17:52 04/06/19 01:52 Ultram PO 50 mg Q8HR PRN Administration Pain Intake and Output 04/09/19 04/10/19 04/10/19 22:59 06:59 14:59 Intake Total 50 Balance 50 Intake: Intake, IV Titration 50 Amount cefTRIAXone 1 gm In 50 Sodium Chloride 0.9% 50 ml @ 100 mls/hr IVPB Q24HR [facility] Rx#:[id number] Other: Voiding Method Toilet Toilet # Voids 1 1 Weight 51.3 kg 04/10/19 07:14 04/10/19 07:14
--- NOTE | 2019-04-10 13:25 | P.PN ---
Subjective Progress Note Date: 04/10/19 Principal diagnosis: shortness of breath Patient is a 73-year-old female past medical history of chronic kidney disease stage 5, hypothyroidism, COPD/asthma, and pulmonary fibrosis who presented to the emergency department for shortness of breath and dizziness. On arrival to the ER her vital signs were within normal limits. On arrival to the ER 0.3, chloride 111, carbon dioxide 15, BUN 52, creatinine 2.77. Nephrology was contacted and there was plans to initiate dialysis. She was seen by nephrology and initiated on dialysis. She was having low normal blood p ressures and was continued on Midodrin. Her orthostatic blood pressures worsened and midodrine was increased, cardio consulted. She was having significant weakness prior to admission and had been unable to ambulate more than a few feet without shortness of breath. Urinalysis showed 93 white blood cells. Urine culture came back greater than 100,000 white blood cells. She was started on Rocephin. Patient seen and examined at bedside with family present. She again tried to ambulate today and became dizzy. Her blood pressure was 79/48 and she became tachycardic with a heart rate of 109. She is not having any shortness of breath sitting still in the chair however the minute she tries to ambulate she becomes increasingly short of breath. She is not able to ambulate far distances. She denies any overt chest discomfort. Denies any nausea or vomiting. Discussed the results of her urinary tract infection. Patient aware. Objective - Vital Signs Vital signs: Vital Signs Temp 97.6 F 04/10/19 07:00 Pulse 109 H 04/10/19 09:45 Resp 16 04/10/19 09:45 BP 103/68 04/10/19 09:45 Pulse Ox 99 04/10/19 09:45 Intake & Output 04/09/19 04/10/19 04/10/19 18:59 06:59 18:59 Intake Total 50 Output Total 50 Balance -50 50 Weight 51.3 kg Intake: Intake, IV Titration 50 Amount cefTRIAXone 1 gm In 50 Sodium Chloride 0.9% 50 ml @ 100 mls/hr IVPB Q24HR CHANEL Rx#:[id number] Output: Urine 50 Other: Voiding Method Toilet Toilet Toilet # Voids 1 - Exam General: ill appearing, no distress, appears at stated age Derm: warm, dry Head: atraumatic, normocephalic, symmetric Eyes: EOMI, no lid lag, anicteric sclera Mouth: no lip lesion, mucus membranes moist Cardiovascular: S1S2 reg, no murmur, positive posterior tibial pulse bilateral, Lungs: Decreased breath sounds bilateral, no rhonchi, no rales , no accessory muscle use Abdominal: soft, nontender to palpation, no guarding, no appreciable organomegaly Ext: no gross muscle atrophy, no edema, no contractures Neuro: CN II-XI grossly intact, no focal neuro deficits Psych: Alert, oriented, appropriate affect - Labs CBC & Chem 7: 04/10/19 07:14 04/10/19 07:14 Labs: Abnormal Lab Results - Last 24 Hours (Table) 04/10/19 04/10/19 Range/Units 07:14 07:14 RBC 3.03 L (3.80-5.40) m/uL Hgb 9.6 L (11.4-16.0) gm/dL Hct 30.6 L (34.0-46.0) % MCV 101.0 H (80.0-100.0) fL Sodium 136 L (137-145) mmol/L Chloride 108 H (98-107) mmol/L Carbon Dioxide 16 L (22-30) mmol/L BUN 48 H (7-17) mg/dL Creatinine 2.73 H (0.52-1.04) mg/dL Glucose 111 H (74-99) mg/dL Microbiology - Last 24 Hours (Table) 04/07/19 21:23 Urine Culture - Preliminary Urine,Voided Gram Neg Bacilli Assessment and Plan Assessment: ESRD with acute volume overload, CKD with mineral bone disease -Newly started on dialysis will be T,T,S - Rocaltrol, phoslo, bicarb - nephro recs Orthostatic hypotension with presyncope -For the patient this has been ongoing but is now exacerbated. Patient and are very concerned -He has seen Dr. Flynn in the past, Cardio resc appreciated: per cardio outpatient work up negative - ? 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
[2019-04-10] MEDS: [UNRECOGNIZED DRUG - MIXTURE] PO SCH (15:00)
[2019-04-10] MEDS: LORATADINE 10 MG TAB PO SCH (17:02)
[2019-04-10] MEDS: PANTOPRAZOLE 40 MG TABLET PO SCH (17:02)
[2019-04-10] MEDS: DOCUSATE 100 MG CAP PO SCH ×2 (17:03→21:02)
[2019-04-10] MEDS: CALCITRIOL 0.25 MCG CAP PO SCH ×2 (17:03→21:02)
[2019-04-10] MEDS: FLUoxetine HCL 20 MG CAP PO SCH ×2 (17:03→21:02)
--- NOTE | 2019-04-10 19:44 | PN ---
PROGRESS NOTE This morning, patient's blood pressure was noted to be 130 mm of Hg systolic. However, she did drop to 79 when physiotherapy tried to work with the patient. She did get a dose of hydrocortisone yesterday and she has been started on Cortef. Overall, patient states she is feeling slightly better. She is scheduled for hemodialysis today with no ultrafiltration. PHYSICAL EXAMINATION: This morning, blood pressure 110/56 and then 79/48, heart rate 109 per minute. She is afebrile. Examination of the heart S1, S2. Examination of the lungs, bilateral breath sounds are heard. ABDOMEN: Soft, nontender. Examination of lower extremities shows no evidence of edema. S[employer] ARCHITECT exam grossly intact. LABS: Sodium 136, potassium 3.8, hemoglobin 9.6 g/dL. ASSESSMENT: 1. End-stage renal disease started on hemodialysis this admission currently slightly better. The patient will be maintained on a Monday, , Monday schedule as outpatient. She will be dialyzed today with no ultrafiltration and the patient will be dialyzed again tomorrow to maintain her on her outpatient schedule. She will have a short treatment with no major ultrafiltration. 2. Orthostatic hypotension most likely related to autonomic neuropathy. However, patient's cortisol level was also on the lower side at 10. Therefore, I started her on steroids. The patient has been evaluated by Cardiology as well. She is not on any antihypertensive medications. 3. Metabolic acidosis maintained on sodium bicarb, currently improved with dialysis as well. 4. Anemia of chronic disease. PLAN: Continue with the Cortef. Repeat hemodialysis in a.m. with no major ultrafiltration. MMODL / IJN: [id number] /
[2019-04-10] MEDS: MONTELUKAST 10 MG TAB PO SCH (21:01)
[2019-04-11] MEDS: LEVOTHYROXINE 112 MCG TAB PO SCH (06:09)
[2019-04-11 07:33] LABS: HCT 30.3 % (34.0-46.0); HGB 9.9 gm/dL (11.4-16.0); MCH 32.4 pg (25.0-35.0); MCHC 32.7 g/dL (31.0-37.0); Mean Platelet Volume 6.6; Platelet Count 142 k/uL (150-450); RBC 3.07 m/uL (3.80-5.40); RDW 13.6 % (11.5-15.5); WBC 7.4 k/uL (3.8-10.6)
[2019-04-11 07:42] LABS: Calcium 9.1 mg/dL (8.4-10.2); Potassium 3.2 mmol/L (3.5-5.1)
[2019-04-11] MEDS: FAMOTIDINE 20 MG TAB PO SCH (08:40)
[2019-04-11] MEDS: traMADol 50 MG TAB PO PRN (08:41)
[2019-04-11] MEDS: SODIUM BICARBONATE TAB 650 MG TAB PO SCH (08:41)
[2019-04-11] MEDS: CALCIUM ACETATE 667 MG TAB PO SCH ×3 (08:41→16:55)
[2019-04-11] MEDS: HYDROCORTISONE 10 MG TAB PO SCH ×2 (08:42→20:35)
[2019-04-11] MEDS: MIDODRINE 5 MG TAB PO SCH ×3 (08:42→16:56)
--- NOTE | 2019-04-11 11:23 | P.PN ---
Subjective This is a pleasant 73-year-old female past medical history significant for COPD, lymphedema, chronic kidney disease and chronic recurrent syncope. She follows in the office with Dr. Price. We have been asked to see her in consultation secondary to persistent hypotension. Midodrine was increased yesterday. Orthostatic vital signs obtained today sitting 108/74 and standing 90/61. At rest she is asymptomatic however does have some feeling of dizziness with position changes, however it is improving. She is scheduled to undergo dialysis today. Laboratory data reviewed, WBC 7.4, hgb 9.9, plt 142, sodium 139, potassium 3.2, creatinine 1.84. She denies chest pain, shortness of breath or palpitations. Telemetry tracings unremarkable. GENERAL: This is a 73-year-old female in no apparent distress at the time of my examination. HEENT: Head is atraumatic, normocephalic. Pupils are equal, round. Sclerae anicteric. Conjunctivae are clear. Mucous membranes of the mouth are moist. Neck is supple. There is no jugular venous distention. No carotid bruit is heard. LUNGS: Clear to auscultation no wheezes, rales or rhonchi. No chest wall tenderness is noted on palpation or with deep breathing. HEART: Regular rate and rhythm without murmurs, rubs or gallops. S1 and S2 heard. EXTREMITIES: Bilateral lower extremity non-pitting edema and no calf tenderness noted. ASSESSMENT Orthostatic hypotension, history of chronic hypotension maintained on midodrine Hypokalemia Near syncope at home multiple times prior to arrival Chronic renal failure recently started on HD Lymphedema COPD Pulmonary fibrosis PLAN Continue current medical regimen. Telemetry can be discontinued. Continue with PATT hose and changing positions slowly. We will follow as needed, please feel free to call with further questions or concerns. Nurse Practitioner note has been reviewed, I agree with a documented findings and plan of care. Patient was seen and examined. Objective - Vital Signs Vital signs: Vital Signs Temp 98.2 F 04/11/19 07:00 Pulse 73 04/11/19 08:50 Resp 16 04/11/19 08:50 BP 90/61 04/11/19 09:26 Pulse Ox 99 04/11/19 07:00 Intake & Output 04/10/19 04/11/19 04/11/19 18:59 06:59 18:59 Output Total 0 50 Balance 0 -50 Weight 51.3 kg Output: Urine 50 Hemodialysis 0 Other: Voiding Method Toilet Toilet Toilet # Voids 2 1 1 # Bowel Movements 1 1 - Labs CBC & Chem 7: 04/11/19 07:19 11 07:19 Labs: Abnormal Lab Results - Last 24 Hours (Table) 04/11/19 04/11/19 Range/Units 07:19 07:19 RBC 3.07 L (3.80-5.40) m/uL Hgb 9.9 L (11.4-16.0) gm/dL Hct 30.3 L (34.0-46.0) % Plt Count 142 L (150-450) k/uL Potassium 3.2 L (3.5-5.1) mmol/L BUN 25 H (7-17) mg/dL Creatinine 1.84 H (0.52-1.04) mg/dL
--- NOTE | 2019-04-11 11:40 | P.PN ---
Subjective Patient is seen in follow-up for end-stage renal disease. She was started on hemodialysis this admission. She remains orthostatic. Denies chest pain or shortness of breath. Vital signs are stable. General: The patient appeared well nourished and normally developed. HEENT: Head exam is unremarkable. Neck is without jugular venous distension. LUNGS: Lungs are clear to auscultation and percussion. Breath sounds decreased. HEART: Rate and Rhythm are regular. First and second heart sounds normal. No murmurs, rubs or gallops. ABDOMEN: Abdominal exam reveals normal bowel sounds. Non-tender and non- distended. No evidence of peritonitis. EXTREMITITES: No clubbing, cyanosis, or edema. Objective - Vital Signs Vital signs: Vital Signs Temp 98.2 F 04/11/19 07:00 Pulse 73 04/11/19 08:50 Resp 16 04/11/19 08:50 BP 90/61 04/11/19 09:26 Pulse Ox 99 04/11/19 07:00 Intake & Output 04/10/19 04/11/19 04/11/19 18:59 06:59 18:59 Output Total 0 50 Balance 0 -50 Weight 51.3 kg Output: Urine 50 Hemodialysis 0 Other: Voiding Method Toilet Toilet Toilet # Voids 2 1 1 # Bowel Movements 1 1 - Labs CBC & Chem 7: 04/11/19 07:19 04/11/19 07:19 Labs: Abnormal Lab Results - Last 24 Hours (Table) 04/11/19 04/11/19 Range/Units 07:19 07:19 RBC 3.07 L (3.80-5.40) m/uL Hgb 9.9 L (11.4-16.0) gm/dL Hct 30.3 L (34.0-46.0) % Plt Count 142 L (150-450) k/uL Potassium 3.2 L (3.5-5.1) mmol/L BUN 25 H (7-17) mg/dL Creatinine 1.84 H (0.52-1.04) mg/dL Assessment and Plan Plan: assessment: 1. End-stage renal disease maintained on hemodialysis on Monday schedule. 2. Hypokalemia from Cortef leading to urinary potassium losses. 3. Orthostatic hypotension maintained on Cortef and midodrine. 4. UTI. Urine culture positive for gram-negative bacilli maintained on Rocephin. 5. Chronic kidney disease mineral bone disease maintained on PhosLo and calcitriol. Plan: Hemodialysis today. No ultrafiltration. Discontinue sodium bicarbonate. Maintain Cortef. Increase midodrine to 10 mg 3 times daily. Recommend compression stockings. Advised the patient to change positions slowly.
[2019-04-11] MEDS: DOCUSATE 100 MG CAP PO SCH ×2 (13:47→20:36)
[2019-04-11] MEDS: CALCITRIOL 0.25 MCG CAP PO SCH ×2 (13:47→20:35)
--- NOTE | 2019-04-11 16:34 | P.PN ---
Subjective Progress Note Date: 04/11/19 (delayed charting seen at 0945) Principal diagnosis: shortness of breath Patient is a 73-year-old female past medical history of chronic kidney disease stage 5 now ESRD, hypothyroidism, COPD/asthma, and pulmonary fibrosis who presented to the emergency department for shortness of breath and dizziness. On arrival to the ER her vital signs were within normal limits. On arrival to the ER 0.3, chloride 111, carbon dioxide 15, BUN 52, creatinine 2.77. Nephrology was contacted and there was plans to initiate dialysis. She was seen by nephrology and initiated on dialysis. She was having low normal blood pressures and was continued on Midodrin. Her orthostatic blood pressures worsened and midodrine was increased, cardio consulted. She was having significant weakness prior to admission and had been unable to ambulate more than a few feet without shortness of breath. Urinalysis showed 93 white blood cells. Urine culture came back greater than 100,000 white blood cells and culture ultimately showed E. Coli. She was started on Rocephin. Due to persistent orthostatic hypotension and cortef was started. Patient seen and examined at bedside. Reports she is still feeling the same and is dizzy when walking. Again appears frustrated as to not knowing why this is happening. Explained orthostatic hypotension and when it will occur, presenting symptoms. Explained that meds could be titrate at rehab to help with orthostatic hypotesion. Still awaiting culture results. No nausea or vomiting, no diarrhea or constipation. Objective - Vital Signs Vital signs: Vital Signs Temp 98.0 F 04/11/19 15:55 Pulse 70 04/11/19 15:55 Resp 18 04/11/19 15:55 BP 138/79 04/11/19 15:55 Pulse Ox 99 04/11/19 13:56 Intake & Output 04/10/19 04/11/19 04/11/19 18:59 06:59 18:59 Output Total 0 50 Balance 0 -50 Weight 51.3 kg Output: Urine 50 Hemodialysis 0 0 Other: Voiding Method Toilet Toilet Toilet # Voids 2 1 1 # Bowel Movements 1 1 - Exam General: non toxic, no distress, appears at stated age Derm: warm, dry Head: atraumatic, normocephalic, symmetric Eyes: EOMI, no lid lag, anicteric sclera Mouth: no lip lesion, mucus membranes moist Cardiovascular: S1S2 reg, no murmur, positive posterior tibial pulse bilateral, Lungs: Decreased breath sounds bilateral, no rhonchi, no rales , no accessory muscle use Abdominal: soft, nontender to palpation, no guarding, no appreciable organomegaly Ext: no gross muscle atrophy, 1+ edema, no contractures Neuro: CN II-XI grossly intact, no focal neuro deficits Psych: Alert, oriented, appropriate affect - Labs CBC & Chem 7: 04/11/19 07:19 04/11/19 07:19 Labs: Abnormal Lab Results - Last 24 Hours (Table) 04/11/19 04/11/19 Range/Units 07: 07:19 RBC 3.07 L (3.80-5.40) m/uL Hgb 9.9 L (11.4-16.0) gm/dL Hct 30.3 L (34.0-46.0) % Plt Count 142 L (150-450) k/uL Potassium 3.2 L (3.5-5.1) mmol/L BUN 25 H (7-17) mg/dL Creatinine 1.84 H (0.52-1.04) mg/dL Microbiology - Last 24 Hours (Table) 04/07/19 21:23 Urine Culture - Final Urine,Voided Escherichia coli Assessment and Plan Assessment: ESRD with acute volume overload, CKD with mineral bone disease -Newly started on dialysis will be T,T,S - had HD 04/10 and plan is for HD today - Rocaltrol, phoslo, bicarb - nephro recs Orthostatic hypotension with presyncope -For the patient this has been ongoing but is now exacerbated. Patient and are very concerned -He has seen Dr. Flynn in the past, Cardio resc appreciated: per cardio outpatient work up negative - ? POTS -Midodrin has been increased again 04/11, cortef added 04/10 - Follow BP E. 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
[2019-04-11] MEDS: PANTOPRAZOLE 40 MG TABLET PO SCH (16:55)
[2019-04-11] MEDS: FLUoxetine HCL 20 MG CAP PO SCH ×2 (16:55→20:36)
[2019-04-11] MEDS: LORATADINE 10 MG TAB PO SCH (16:55)
[2019-04-11] MEDS: [UNRECOGNIZED DRUG - MIXTURE] PO SCH (16:57)
[2019-04-11] MEDS: MONTELUKAST 10 MG TAB PO SCH (20:36)
[2019-04-12 00:44] VITALS: RESP 16
[2019-04-12 02:35] VITALS: TEMP 98.1
[2019-04-12] MEDS: LEVOTHYROXINE 112 MCG TAB PO SCH (05:59)
[2019-04-12 07:54] LABS: HCT 27.2 % (34.0-46.0); HGB 8.8 gm/dL (11.4-16.0); Hypochromasia Slight; MCH 32.2 pg (25.0-35.0); MCHC 32.2 g/dL (31.0-37.0); MCV 100.1 fL (80.0-100.0); Mean Platelet Volume 6.6; Platelet Count 135 k/uL (150-450); RBC 2.72 m/uL (3.80-5.40); RDW 13.5 % (11.5-15.5); WBC 6.5 k/uL (3.8-10.6)
[2019-04-12 07:59] LABS: Calcium 9.1 mg/dL (8.4-10.2); Potassium 3.8 mmol/L (3.5-5.1)
[2019-04-12] MEDS: MIDODRINE 5 MG TAB PO SCH (08:27)
[2019-04-12] MEDS: ERGOCALCIFEROL 50,000 UNIT CAP PO SCH (08:28)
[2019-04-12] MEDS: HYDROCORTISONE 10 MG TAB PO SCH (08:28)
[2019-04-12] MEDS: FAMOTIDINE 20 MG TAB PO SCH (08:28)
[2019-04-12] MEDS: CALCIUM ACETATE 667 MG TAB PO SCH (08:28)
[2019-04-12 09:11] VITALS: BP 92/56; PULSE 67
--- NOTE | 2019-04-12 10:45 | P.DS ---
Providers Date of admission: 04/07/19 09:07 Expected date of discharge: 04/12/19 Attending physician: Azalia Ha MD Consults: 04/05/19 15:59 Consult Physician Urgent Consulting Provider: Abbey Wheeler Consult Reason/Comments: Renal failure Do you want consulting provider notified?: Yes 04/09/19 16:58 Consult Physician Routine Consulting Provider: Adalid Price Consult Reason/Comments: recurrent hypotension Do you want consulting provider notified?: Yes, Notify in am Primary care physician: [facility] Course: Discharge Diagnosis: End-stage renal disease with acute volume overload, chronic kidney disease with bone mineral disease Orthostatic hypotension with presyncope Anemia of chronic disease related to renal disease Hypothyroidism Hypokalemia Metabolic acidosis Hyperphosphatemia Myalgias Toxic metabolic encephalopathy E. coli urinary tract infection COPD without exacerbation Hypokalemia Moderate protein calorie malnutrition with outpatient weight loss Hospital Course: Patient is a 73-year-old female past medical history of chronic kidney disease stage 5 now ESRD, hypothyroidism, COPD/asthma, and pulmonary fibrosis who presented to the emergency department for shortness of breath and dizziness. On arrival to the ER her vital signs were within normal limits. On arrival to the ER 0.3, chloride 111, carbon dioxide 15, BUN 52, creatinine 2.77. Nephrology was contacted and there was plans to initiate dialysis. She was seen by nephrology and initiated on dialysis. She was having low normal blood pressures and was continued on Midodrin. Her orthostatic blood pressures worsened and midodrine was increased, cardio consulted. She was having significant weakness prior to admission and had been unable to ambulate more than a few feet without shortness of breath. Urinalysis showed 93 white blood cells. Urine culture came back greater than 100,000 white blood cells and culture ultimately showed E. Coli. She was started on Rocephin and can complete a course of keflex. Due to persistent orthostatic hypotension and cortef was started. Her blood pressures improved some and she was tolerating dialysis better. She was determined stable for discharge to [facility] on the [place]. She was given some information on POTS and [facility] if symptoms persist. She will have dialysis on T,, SAT. She will follow with Dr. Wheeler in [address] Price in 2 weeks. Patient seen and examined at bedside. no chest pain, sob, or nausea. Vital signs reviewed and stable. General: non toxic, no distress, appears at stated age,thin, cachetic Derm: warm, dry Head: atraumatic, normocephalic, symmetric Eyes: EOMI, no lid lag, anicteric sclera Mouth: no lip lesion, mucus membranes moist Cardiovascular: S1S2 reg, no murmur, positive posterior tibial pulse bilateral, Lungs: CTA bilateral, no rhonchi, no rales , no accessory muscle use Abdominal: soft, nontender to palpation, no guarding, no appreciable organomegaly Ext: no gross muscle atrophy, 2+ edema, no contractures Neuro: CN II-XI grossly intact, no focal neuro deficits Psych: Alert, oriented, appropriate affect A total of 25 minutes of time were spent preparing this complex discharge summary . Patient Condition at Discharge: Stable Plan - Discharge Summary Discharge Rx Participant: No New Discharge Prescriptions: New Hydrocortisone [Cortef] 15 mg PO BID tab Cephalexin [Keflex] 500 mg PO Q12HR #8 cap Midodrine [ProAmatine] 10 mg PO AC-TID tab Continue Montelukast [Singulair] 10 mg PO HS Mometasone Inhalr 220 Mcg/Puff [Asmanex] 2 puff INHALATION RT-HS PRN PRN Reason: Shortness Of Breath Loratadine [Alavert] 10 mg PO DAILY@1400 Albuterol Nebulized [Ventolin Nebulized] 2.5 mg INHALATION RT-TID PRN PRN Reason: Shortness Of Breath FLUoxetine HCL [PROzac] 20 mg PO BID@1400,2100 Docusate [Colace] 100 mg PO DAILY@1400 Calcitriol 0.5 mcg PO BID@1400,2100 Levothyroxine Sodium [Synthroid] 224 mcg PO MURO Levothyroxine Sodium [Synthroid] 112 mcg PO MOTUWETHFRSA Rising Mg64 W/Ca 1 tab PO DAILY@1400 Omeprazole 40 mg PO DAILY@1400 Docusate [Colace] 200 mg PO HS@2100 Ergocalciferol (Vitamin D2) [Vitamin D2] 50,000 unit PO MOWEFR Albuterol Sulfate [Proair Hfa] 1 - 2 puff INHALATION RT-Q6H PRN PRN Reason: Shortness Of Breath Calcium Acetate [PhosLo] 667 mg PO TID-W/MEALS #90 cap Ranitidine HCl [Zantac] 300 mg PO DAILY Hydrocortisone Suppository [Anusol-Hc] 25 mg RECTAL DAILY PRN PRN Reason: Itching traMADol HCl [Ultram] 50 mg PO Q8HR PRN #9 tab PRN Reason: Pain Changed Budesonide-Formot 160-4.5 Mcg [Symbicort 160-4.5 Mcg Inhaler] 2 puff INHALATION RT-BID #0 Discontinued Sodium Bicarbonate Tab 650 mg PO QID Midodrine [ProAmatine] 5 mg PO DAILY@1399 Bumetanide [BUMEX] 1 mg PO DAILY@1399 Fluticasone/Salmeterol [Advair 250-50 Diskus] 1 puff INHALATION RT-BID PRN PRN Reason: Shortness Of Breath Midodrine [ProAmatine] 2.5 mg PO HS@2099 metroNIDAZOLE [Flagyl] 250 mg PO DAILY@1399 Potassium Chloride [Klor-Con 20] 20 meq PO TID Discharge Medication List Albuterol Nebulized [Ventolin Nebulized] 2.5 mg INHALATION RT-TID PRN 08/23/18 [History] Calcitriol 0.5 mcg PO BID@1399,209908/23/18 [History] Docusate [Colace] 100 mg PO DAILY@139908/23/18 [History] FLUoxetine HCL [PROzac] 20 mg PO BID@1399,209908/23/18 [History] Levothyroxine Sodium [Synthroid] 112 mcg PO MOTUWETHFRSA 08/23/18 [History] Levothyroxine Sodium [Synthroid] 224 mcg PO MURO 08/23/18 [History] Loratadine [Alavert] 10 mg PO DAILY@139908/23/18 [History] Mometasone Inhalr 220 Mcg/Puff [Asmanex] 2 puff INHALATION RT-HS PRN 08/23/18 [History] Montelukast [Singulair] 10 mg PO HS 08/23/18 [History] Omeprazole 40 mg PO DAILY@139911/19/18 [History] Rising Mg64 W/Ca 1 tab PO DAILY@139911/19/18 [History] Albuterol Sulfate [Proair Hfa] 1 - 2 puff INHALATION RT-Q6H PRN 01/31/19 [ History] Docusate [Colace] 200 mg PO HS@2100 01/31/19 [History] Ergocalciferol (Vitamin D2) [Vitamin D2] 50,000 unit PO MOWEFR 01/31/19 [History] Calcium Acetate [PhosLo] 667 mg PO TID-W/MEALS #90 cap 02/16/19 [Rx] Hydrocortisone Suppository [Anusol-Hc] 25 mg RECTAL DAILY PRN 04/05/19 [History] Ranitidine HCl [Zantac] 300 mg PO DAILY 04/05/19 [History] Budesonide-Formot 160-4.5 Mcg [Symbicort 160-4.5 Mcg Inhaler] 2 puff INHALATION RT-BID #0 04/12/19 [Rx] Cephalexin [Keflex] 500 mg PO Q12HR #8 cap 04/12/19 [Rx] Hydrocortisone [Cortef] 15 mg PO BID tab 04/12/19 [Rx] Midodrine [ProAmatine] 10 mg PO AC-TID tab 04/12/19 [Rx] traMADol HCl [Ultram] 50 mg PO Q8HR PRN #9 tab 04/12/19 [Rx] Follow up Appointment(s)/Referral(s): Abbey Wheeler MD [STAFF PHYSICIAN] - 4 Weeks Adalid Price MD [STAFF PHYSICIAN] - 2 Weeks [facility], [NON-STAFF] - As Needed Terrence Kwan MD [Primary Care Provider] - 1-2 days Activity/Diet/Wound Care/Special Instructions: Activity: as tolerated Diet: Renal diet Special Instructions: Hemodialysis schedule at [facility] on //Sat at 6am. Please go to first appt at 5:45 am. First session on 04/15/19. Postural Orthostatic Tachycardia Syndrome (POTS) [facility]: Appointments [phone] [email or web address]
--- NOTE | 2019-04-12 20:09 | PN ---
PROGRESS NOTE Patient is seen for followup for end-stage renal disease. The patient is being considered for discharge today. She is seen walking in the hallway today. She states she is feeling slightly better. Blood pressures appear to be improved. PHYSICAL EXAMINATION: On examination, blood pressure was 90/61, heart rate 80 per minute, patient is afebrile. Examination of the heart S1, S2. Examination of the lungs, decreased breath sounds at bases. Abdomen is soft, nontender. Examination of lower extremities shows no significant edema. LABS: Sodium 141, potassium 3.8, chloride 104, BUN 21, creatinine 1.86, hemoglobin 8.8 g/dL. ASSESSMENT: 1. End-stage renal disease, even though the creatinine is on the lower side. The patient has very low muscle mass and she was uremic at the time of admission. Symptoms have improved with dialysis. Therefore, we will continue with renal replacement therapy. 2. Severe orthostatic hypotension, possibly related to underlying autonomic neuropathy. Serum cortisol was also on the lower side. Patient has been started on Cortef. Continue with the midodrine as well for now. 3. Hypokalemia, status post replacement. 4. Anemia multifactorial, mainly anemia of chronic disease. 5. Generalized debility. 6. Escherichia coli urinary tract infection. PLAN: Maintain dialysis on a Monday, , Monday schedule with minimal ultrafiltration. Continue with Cortef. Continue with midodrine. We will follow up as outpatient on dialysis. MMBRISSAL / IJN: [id number] /
== END 2019-04-12 13:09 | DRG 640 ==
LOC: EC 13:03 → 4SSUR 15:59 → OBSVTOIN 04-07 09:07
PROVIDERS: ADMIT Family Medicine; ATTEND Family Medicine
PROC: 5A1D70Z Performance of Urinary Filtration, Intermittent, Less than 6 Hours Per Day (ICD-10-PCS; 2019-04-06)
PROC: 05HB33Z Insertion of Infusion Device into Right Basilic Vein, Percutaneous Approach (ICD-10-PCS; principal; 2019-04-10 12:20)
DX: E87.70 Fluid overload, unspecified (principal); N18.6 End stage renal disease; G92 Toxic encephalopathy; N17.9 Acute kidney failure, unspecified; N39.0 Urinary tract infection, site not specified; E44.0 Moderate protein-calorie malnutrition; Z68.1 Body mass index [BMI] 19.9 or less, adult; J96.10 Chronic respiratory failure, unspecified whether with hypoxia or hypercapnia; E87.2 Acidosis; E83.39 Other disorders of phosphorus metabolism; E83.9 Disorder of mineral metabolism, unspecified; J84.10 Pulmonary fibrosis, unspecified; J44.9 Chronic obstructive pulmonary disease, unspecified; I49.8 Other specified cardiac arrhythmias; I95.1 Orthostatic hypotension; B96.20 Unspecified Escherichia coli [E. coli] as the cause of diseases classified elsewhere; E87.6 Hypokalemia; I89.0 Lymphedema, not elsewhere classified; E89.0 Postprocedural hypothyroidism; I44.0 Atrioventricular block, first degree; M81.0 Age-related osteoporosis without current pathological fracture; M19.90 Unspecified osteoarthritis, unspecified site; Z99.2 Dependence on renal dialysis; Z99.81 Dependence on supplemental oxygen; Z79.51 Long term (current) use of inhaled steroids; Z79.890 Hormone replacement therapy; Z79.899 Other long term (current) drug therapy; Z71.3 Dietary counseling and surveillance; Z87.442 Personal history of urinary calculi; Z87.440 Personal history of urinary (tract) infections; Z86.19 Personal history of other infectious and parasitic diseases; Z90.710 Acquired absence of both cervix and uterus; Z98.84 Bariatric surgery status; Z98.890 Other specified postprocedural states; Z88.5 Allergy status to narcotic agent; Z88.2 Allergy status to sulfonamides; Z91.048 Other nonmedicinal substance allergy status; Z83.2 Family history of diseases of the blood and blood-forming organs and certain disorders involving the immune mechanism; Z80.9 Family history of malignant neoplasm, unspecified
CPT/HCPCS: 36410; 36415; 71046; 76937; 78582; 80048; 80053; 81001; 82533; 83735; 83880; 84100; 84443; 84484; 85025; 85027; 85610; 85730; 86706; 87077; 87086; 87186; 87340; 90935; 93005; 93306; 94640; 99285

== ENCOUNTER 2019-04-20 10:57 | Emergency (ER) | payer MEDICARE ==
[2019-04-20 11:08] VITALS: RESP 18; TEMP 97.8
--- NOTE | 2019-04-20 11:32 | ED ---
General Adult HPI - General Chief complaint: Syncope Stated complaint: Syncope Time Seen by Provider: 04/20/19 11:00 Source: family, EMS, RN notes reviewed, old records reviewed Mode of arrival: EMS Limitations: no limitations - History of Present Illness Initial comments: This is a 73-year-old female who presents emergency department with past medical history significant for lymphedema and renal failure. Patient comes in today because she was at dialysis and after dialysis she went to the bathroom and then had a syncopal episode. states she's been orthostatic many times in the past. Patient states after dialysis she felt fine but when she went to bed. She felt lightheaded and passed out. Patient denies any chest pain difficult breathing shortness breath per patient denies any palpitation. Patient denies any recent fever chills or cough. Patient denies any headache patient denies any numbness weakness. Patient states lying in bed she feels completely normal. Patient denies any recent vomiting or diarrhea. - Related Data Home Medications Medication Instructions Recorded Confirmed Albuterol Nebulized [Ventolin 2.5 mg INHALATION RT-TID PRN 08/23/18 04/12/19 Nebulized] Calcitriol 0.5 mcg PO BID@1400,209908/23/18 04/12/19 Docusate [Colace] 100 mg PO DAILY@139908/23/18 04/12/19 FLUoxetine HCL [PROzac] 20 mg PO BID@1400,209908/23/18 04/12/19 Levothyroxine Sodium [Synthroid] 112 mcg PO MOTUWETHFRSA 08/23/18 04/12/19 Levothyroxine Sodium [Synthroid] 224 mcg PO MURO 08/23/18 04/12/19 Loratadine [Alavert] 10 mg PO DAILY@1400 08/23/18 04/12/19 Mometasone Inhalr 220 Mcg/Puff 2 puff INHALATION RT-HS PRN 08/23/18 04/12/19 [Asmanex] Montelukast [Singulair] 10 mg PO HS 08/23/18 04/12/19 Omeprazole 40 mg PO DAILY@1400 11/19/18 04/12/19 Rising Mg64 W/Ca 1 tab PO DAILY@1400 11/19/18 04/12/19 Albuterol Sulfate [Proair Hfa] 1 - 2 puff INHALATION RT-Q6H PRN 01/31/19 04/12/19 Docusate [Colace] 200 mg PO HS@2100 01/31/19 04/12/19 Ergocalciferol (Vitamin D2) 50,000 unit PO MOWEFR 01/31/19 04/12/19 [Vitamin D2] Hydrocortisone Suppository 25 mg RECTAL DAILY PRN 04/05/19 04/12/19 [Anusol-Hc] Ranitidine HCl [Zantac] 300 mg PO DAILY 04/05/19 04/12/19 Previous Rx's Medication Instructions Recorded Calcium Acetate [PhosLo] 667 mg PO TID-W/MEALS #90 cap 02/16/19 Budesonide-Formot 160-4.5 Mcg 2 puff INHALATION RT-BID #0 04/12/19 [Symbicort 160-4.5 Mcg Inhaler] Midodrine [ProAmatine] 10 mg PO AC-TID tab 04/12/19 Cephalexin [Keflex] 500 mg PO Q12HR #4 cap 04/15/19 Hydrocortisone [Cortef] 20 mg PO BID tab 04/15/19 Melatonin 3 mg PO HS PRN tablet 04/15/19 traMADol HCl [Ultram] 50 mg PO Q8HR PRN #9 tab 04/15/19 Allergies Allergy/AdvReac Type Severity Reaction Status Date / Time adhesive tape Allergy Rash/Hives Verified 04/12/19 18:50 Sulfa (Sulfonamide Allergy Itching Verified 04/12/19 18:50 Antibiotics) tetracycline Allergy Nausea & Verified 04/12/19 18:50 Vomiting codeine AdvReac Nausea Verified 04/12/19 18:50 Review of Systems ROS Statement: Those systems with pertinent positive or pertinent negative responses have been documented in the HPI. ROS Other: All systems not noted in ROS Statement are negative. Past Medical History Past Medical History: COPD, Osteoarthritis (OA), Renal Disease, Thyroid Disorder Additional Past Medical History / Comment(s): kidney stones and UTI,steroid injection October 2018 hx lymphedema, hx pulmonary fibrosis, hx graves,hx rt foot torn ligaments,hx kidney stones, hx osteoporosis,hypotension, chronic respiratory failure on 2 L nasal cannula at night & prn, vitamin D deficiency, hypocalcemia History of Any Multi-Drug Resistant Organisms: CRE Date of last positivie culture/infection: 10/16/18 MDRO-CRE PER [facility] NOT [facility] MDRO Source:: Urine Past Surgical History: Bariatric Surgery Additional Past Surgical History / Comment(s): hx bariatric surgery-Kye En Y,lung biopsy,radioactive iodine-tx thyroid,rectal and bladder suspensions ,vaginal surgery as a child,partha carpel tunnel,rt knee meniscus repair,D&C x3, left arm fistula 02/08/19 Past Anesthesia/Blood Transfusion Reactions: Previous Problems w/ Anesthesia, Postoperative Nausea & Vomiting (PONV) Additional Past Anesthesia/Blood Transfusion Reaction / Comment(s): decrease bp with anesthesia,no problems with prior blood transfusion Past Psychological History: No Psychological Hx Reported Smoking Status: Never smoker Past Alcohol Use History: None Reported Past Drug Use History: None Reported - Past Family History Father Family Medical History: Pulmonary Embolus Additional Family Medical History / Comment(s): . Mother Family Medical History: Cancer Additional Family Medical History / Comment(s): . Sister(s) Family Medical History: Cancer Additional Family Medical History / Comment(s): . Daughter(s) Additional Family Medical History / Comment(s): lymphedema in legs General Exam - General Exam Comments Initial Comments: GENERAL: Patient is well-developed and well-nourished. Patient is nontoxic and well- hydrated and is in no acute distress. ENT: Neck is soft and supple. No significant lymphadenopathy is noted. Oropharynx is clear. Moist mucous membranes. Neck has full range of motion without eliciting any pain. EYES: The sclera were anicteric and conjunctiva were pink and moist. Extraocular movements were intact and pupils were equal round and reactive to light. Eyelids were unremarkable. PULMONARY: Unlabored respirations. Good breath sounds bilaterally. No audible rales rhonchi or wheezing was noted. CARDIOVASCULAR: There is a regular rate and rhythm without any murmurs gallops or rubs. ABDOMEN: Soft and nontender with normal bowel sounds. No palpable organomegaly was noted. There is no palpable pulsatile mass. SKIN: Skin is clear with no lesions or rashes and otherwise unremarkable. NEUROLOGIC: Patient is alert and oriented x3. Cranial nerves II through XII are grossly intact. Motor and sensory are also intact. Normal speech, volume and content. Symmetrical smile. MUSCULOSKELETAL: Normal extremities with adequate strength and full range of motion. Bilateral lymphedema LYMPHATICS: No significant lymphadenopathy is noted PSYCHIATRIC: Normal psychiatric evaluation. Limitations: no limitations Course Vital Signs 04/20/19 04/20/19 11:01 12:18 Temperature 97.8 F Pulse Rate 65 Pulse Rate [ 69 Right Sitting Pulse Oximetery ] Pulse Rate [ 74 Right Standing Pulse Oximetery ] Pulse Rate [ 66 Right Supine Pulse Oximetery ] Respiratory 18 Rate Blood Pressure 116/67 Blood Pressure 110/72 [Right Arm Sitting] Blood Pressure 97/64 [Right Arm Standing] Blood Pressure 126/78 [Right Arm Supine] O2 Sat by Pulse 100 Oximetry Medical Decision Making - Medical Decision Making EKG shows a sinus rhythm at 63 bpm NC interval is 218 QRS is 72 QT interval is 450 QTC is 460. Patient's EKG shows no ST segment elevation or depression. Chest x-ray showed no acute abnormality. X-ray of the knee showed no acute abnormality. - Lab Data Result diagrams: 04/20/19 11:50 04/20/19 11:50 Lab Results 04/20/19 04/20/19 04/20/19 Range/Units 11:50 11:50 11:50 WBC 6.4 (3.8-10.6) k/uL RBC 3.02 L (3.80-5.40) m/uL Hgb 9.6 L (11.4-16.0) gm/dL Hct 30.3 L (34.0-46.0) % MCV 100.4 H (80.0-100.0) fL MCH 31.8 (25.0-35.0) pg MCHC 31.7 (31.0-37.0) g/dL RDW 14.6 (11.5-15.5) % Plt Count 142 L (150-450) k/uL Neutrophils % 68 % Lymphocytes % 21 % Monocytes % 7 % Eosinophils % 2 % Basophils % 1 % Neutrophils # 4.3 (1.3-7.7) k/uL Lymphocytes # 1.3 (1.0-4.8) k/uL Monocytes # 0.5 (0-1.0) k/uL Eosinophils # 0.1 (0-0.7) k/uL Basophils # 0.0 (0-0.2) k/uL Macrocytosis Slight PT 10.4 (9.0-12.0) sec INR 1.0 (<1.2) APTT 19.3 L (22.0-30.0) sec Sodium 137 (137-145) mmol/L Potassium 3.2 L (3.5-5.1) mmol/L Chloride 100 (98-107) mmol/L Carbon Dioxide 33 H (22-30) mmol/L Anion Gap 4 mmol/L BUN 12 (7-17) mg/dL Creatinine 1.17 H (0.52-1.04) mg/dL Est GFR (CKD-EPI)AfAm 53 (>60 ml/min/1.73 sqM) Est GFR (CKD-EPI)NonAf 46 (>60 ml/min/1.73 sqM) Glucose 101 H (74-99) mg/dL Calcium 8.3 L (8.4-10.2) mg/dL Magnesium 1.7 (1.6-2.3) mg/dL Total Bilirubin 0.3 (0.2-1.3) mg/dL AST 51 H (14-36) U/L ALT 50 (9-52) U/L Alkaline Phosphatase 56 (38-126) U/L Troponin I (0.000-0.034) ng/mL Total Protein 5.4 L (6.3-8.2) g/dL Albumin 3.0 L (3.5-5.0) g/dL 04/20/19 Range/Units 11:50 WBC (3.8-10.6) k/uL RBC (3.80-5.40) m/uL Hgb (11.4-16.0) gm/dL Hct (34.0-46.0) % MCV (80.0-100.0) fL MCH (25.0-35.0) pg MCHC (31.0-37.0) g/dL RDW (11.5-15.5) % Plt Count (150-450) k/uL Neutrophils % % Lymphocytes % % Monocytes % % Eosinophils % % Basophils % % Neutrophils # (1.3-7.7) k/uL Lymphocytes # (1.0-4.8) k/uL Monocytes # (0-1.0) k/uL Eosinophils # (0-0.7) k/uL Basophils # (0-0.2) k/uL Macrocytosis PT (9.0-12.0) sec INR (<1.2) APTT (22.0-30.0) sec Sodium (137-145) mmol/L Potassium (3.5-5.1) mmol/L Chloride (98-107) mmol/L Carbon Dioxide (22-30) mmol/L Anion Gap mmol/L BUN (7-17) mg/dL Creatinine (0.52-1.04) mg/dL Est GFR (CKD-EPI)AfAm (>60 ml/min/1.73 sqM) Est GFR (CKD-EPI)NonAf (>60 ml/min/1.73 sqM) Glucose (74-99) mg/dL Calcium (8.4-10.2) mg/dL Magnesium (1.6-2.3) mg/dL Total Bilirubin (0.2-1.3) mg/dL AST (14-36) U/L ALT (9-52) U/L Alkaline Phosphatase (38-126) U/L Troponin I <0.012 (0.000-0.034) ng/mL Total Protein (6.3-8.2) g/dL Albumin (3.5-5.0) g/dL Disposition Clinical Impression: Orthostatic syncope Disposition: HOME SELF-CARE Condition: Good Instructions (If sedation given, give patient instructions): Hypotension (ED), Syncope (ED), Knee Sprain (ED) Is patient prescribed a controlled substance at d/c from ED?: No Referrals: Terrence Kwan MD [Primary Care Provider] - 1-2 days Time of Disposition: 13:31
[2019-04-20 12:05] LABS: Basophils % (A) 1 %; Eosinophils # (A) 0.1 k/uL (0-0.7); Eosinophils % (A) 2 %; HCT 30.3 % (34.0-46.0); HGB 9.6 gm/dL (11.4-16.0); Lymphocytes # (A) 1.3 k/uL (1.0-4.8); Lymphocytes % (A) 21 %; MCH 31.8 pg (25.0-35.0); MCHC 31.7 g/dL (31.0-37.0); MCV 100.4 fL (80.0-100.0); Macrocytosis Slight; Mean Platelet Volume 6.9; Monocytes # (A) 0.5 k/uL (0-1.0); Monocytes % (A) 7 %; Neutrophils # (A) 4.3 k/uL (1.3-7.7); Neutrophils % (A) 68 %; Platelet Count 142 k/uL (150-450); RBC 3.02 m/uL (3.80-5.40); RDW 14.6 % (11.5-15.5); WBC 6.4 k/uL (3.8-10.6)
[2019-04-20 12:15] LABS: Calcium 8.3 mg/dL (8.4-10.2); Magnesium 1.7 mg/dL (1.6-2.3); Potassium 3.2 mmol/L (3.5-5.1); Total Bilirubin 0.3 mg/dL (0.2-1.3); Total Protein 5.4 g/dL (6.3-8.2)
[2019-04-20 12:21] VITALS: BP 126/78; PULSE 66
[2019-04-20 12:23] LABS: Prothrombin Time 10.4 sec (9.0-12.0)
[2019-04-20 12:27] LABS: Partial Thromboplastin Time 19.3 sec (22.0-30.0)
--- NOTE | 2019-04-20 12:40 | XR ---
EXAMINATION TYPE: XR chest 2V DATE OF EXAM: 04/20/2019 HISTORY: Chest Pain. REFERENCE: Previous study dated 04/08/2019. FINDINGS: The lungs are overinflated. There is some scarring or thickening along the major fissure on the right. Lungs otherwise clear. Pleural space are clear. The heart is not enlarged. IMPRESSION: 1. COPD. 2. SCARRING VERSUS ATELECTASIS, RIGHT LUNG.
--- NOTE | 2019-04-20 12:41 | XR ---
EXAMINATION TYPE: XR knee complete LT , 4 VIEWS DATE OF EXAM ORDERED: 04/20/2019 HISTORY: Trauma . COMPARISON: None. FINDINGS: There is lateral joint space loss. There are phleboliths in the lower leg and upper lung o n the left. No fracture, dislocation or knee joint effusion is seen. IMPRESSION: 1. NO ACUTE OSSEOUS LESION. 2. FAIRLY SEVERE OSTEOARTHRITIS. 3. MULTIPLE PHLEBOLITHS.
[2019-04-20] MEDS ORDERED: SODIUM CHLORIDE 0.9% 500 ML 500 ML IV ONE (12:42)
== END 2019-04-20 14:25 | disposition home or self-care (01) ==
LOC: EC 10:57
DX: R55 Syncope and collapse (principal); I89.0 Lymphedema, not elsewhere classified; J44.9 Chronic obstructive pulmonary disease, unspecified; E83.51 Hypocalcemia; N18.9 Chronic kidney disease, unspecified; E05.00 Thyrotoxicosis with diffuse goiter without thyrotoxic crisis or storm; Z88.1 Allergy status to other antibiotic agents; Z88.2 Allergy status to sulfonamides; Z88.5 Allergy status to narcotic agent; Z91.048 Other nonmedicinal substance allergy status; Z79.890 Hormone replacement therapy; Z79.899 Other long term (current) drug therapy; Z99.2 Dependence on renal dialysis; Z84.89 Family history of other specified conditions
CPT/HCPCS: 36415; 71046; 80053; 83735; 84484; 85025; 85610; 85730; 93005; 96360; 99285

== ENCOUNTER 2019-07-21 15:04 | Inpatient (IN) | payer MEDICARE ==
[2019-07-21 16:19] LABS: Basophils # (A) 0.1 k/uL (0-0.2); Basophils % (A) 1 %; Eosinophils # (A) 0.1 k/uL (0-0.7); Eosinophils % (A) 2 %; HCT 37.7 % (34.0-46.0); HGB 11.8 gm/dL (11.4-16.0); Lymphocytes # (A) 1.6 k/uL (1.0-4.8); Lymphocytes % (A) 27 %; MCH 31.2 pg (25.0-35.0); MCHC 31.3 g/dL (31.0-37.0); MCV 99.7 fL (80.0-100.0); Mean Platelet Volume 8.5; Monocytes # (A) 0.4 k/uL (0-1.0); Monocytes % (A) 7 %; Neutrophils # (A) 3.7 k/uL (1.3-7.7); Neutrophils % (A) 61 %; Platelet Count 139 k/uL (150-450); RBC 3.78 m/uL (3.80-5.40); RDW 13.2 % (11.5-15.5)
[2019-07-21 16:30] LABS: Albumin 4.1 g/dL (3.5-5.0); Calcium 8.7 mg/dL (8.4-10.2); Total Bilirubin 0.6 mg/dL (0.2-1.3); Total Protein 6.8 g/dL (6.3-8.2)
[2019-07-21 16:41] LABS: Potassium 4.4 mmol/L (3.5-5.1)
--- NOTE | 2019-07-21 16:41 | ED ---
General Adult HPI - General Chief complaint: Headache Stated complaint: Head pain Time Seen by Provider: 07/21/19 15:20 Source: patient, RN notes reviewed, old records reviewed Mode of arrival: ambulatory Limitations: no limitations - History of Present Illness Initial comments: This is a 74-year-old female presents emergency Department complaining that about 11:00 this morning she started having sharp pain on the right side of her head in the parietal region of the scalp patient states it lasted 3 seconds in its severe when it happens and then it goes away. Patient states she has every few minutes and has been ongoing since . Patient denies any neurologic deficit. Patient states it starts in the scalp and seems to go inward. Patient denies any rashes lesions to the area patient denies any trauma. Patient denies any recent fever chills per patient states she's never had anything similar in the past. - Related Data Home Medications Medication Instructions Recorded Confirmed Albuterol Nebulized [Ventolin 2.5 mg INHALATION RT-TID PRN 08/23/18 04/12/19 Nebulized] Calcitriol 0.5 mcg PO BID@1399,209908/23/18 04/12/19 Docusate [Colace] 100 mg PO DAILY@139908/23/18 04/12/19 FLUoxetine HCL [PROzac] 20 mg PO BID@1400,209908/23/18 04/12/19 Levothyroxine Sodium [Synthroid] 112 mcg PO MOTUWETHFRSA 08/23/18 04/12/19 Levothyroxine Sodium [Synthroid] 224 mcg PO MURO 08/23/18 04/12/19 Loratadine [Alavert] 10 mg PO DAILY@139908/23/18 04/12/19 Mometasone Inhalr 220 Mcg/Puff 2 puff INHALATION RT-HS PRN 08/23/18 04/12/19 [Asmanex] Montelukast [Singulair] 10 mg PO HS 08/23/18 04/12/19 Omeprazole 40 mg PO DAILY@139911/19/18 04/12/19 Rising Mg64 W/Ca 1 tab PO DAILY@139911/19/18 04/12/19 Albuterol Sulfate [Proair Hfa] 1 - 2 puff INHALATION RT-Q6H PRN 01/31/19 04/12/19 Docusate [Colace] 200 mg PO HS@2100 01/31/19 04/12/19 Ergocalciferol (Vitamin D2) 50,000 unit PO MOWEFR 01/31/19 04/12/19 [Vitamin D2] Hydrocortisone Suppository 25 mg RECTAL DAILY PRN 04/05/19 04/12/19 [Anusol-Hc] Ranitidine HCl [Zantac] 300 mg PO DAILY 04/05/19 04/12/19 Previous Rx's Medication Instructions Recorded Calcium Acetate [PhosLo] 667 mg PO TID-W/MEALS #90 cap 02/16/19 Budesonide-Formot 160-4.5 Mcg 2 puff INHALATION RT-BID #0 04/12/19 [Symbicort 160-4.5 Mcg Inhaler] Midodrine [ProAmatine] 10 mg PO AC-TID tab 04/12/19 Cephalexin [Keflex] 500 mg PO Q12HR #4 cap 04/15/19 Hydrocortisone [Cortef] 20 mg PO BID tab 04/15/19 Melatonin 3 mg PO HS PRN tablet 04/15/19 traMADol HCl [Ultram] 50 mg PO Q8HR PRN #9 tab 04/15/19 Allergies Allergy/AdvReac Type Severity Reaction Status Date / Time adhesive tape Allergy Rash/Hives Verified 07/21/19 15:18 Sulfa (Sulfonamide Allergy Itching Verified 07/21/19 15:18 Antibiotics) tetracycline Allergy Nausea & Verified 07/21/19 15:18 Vomiting codeine AdvReac Nausea Verified 07/21/19 15:18 Review of Systems ROS Statement: Those systems with pertinent positive or pertinent negative responses have been documented in the HPI. ROS Other: All systems not noted in ROS Statement are negative. Past Medical History Past Medical History: COPD, Osteoarthritis (OA), Renal Disease, Thyroid Disorder Additional Past Medical History / Comment(s): kidney stones and UTI,steroid injection October 2018 hx lymphedema, hx pulmonary fibrosis, hx graves,hx rt foot torn ligaments,hx kidney stones, hx osteoporosis,hypotension, chronic respiratory failure on 2 L nasal cannula at night & prn, vitamin D deficiency, hypocalcemia History of Any Multi-Drug Resistant Organisms: CRE Date of last positivie culture/infection: 10/16/18 MDRO-CRE PER [facility] NOT [facility] MDRO Source:: Urine Past Surgical History: Bariatric Surgery Additional Past Surgical History / Comment(s): hx bariatric surgery-Kye En Y,lung biopsy,radioactive iodine-tx thyroid,rectal and bladder suspensions,vaginal surgery as a child,partha carpel tunnel,rt knee meniscus repair,D&C x3, left arm fistula 02/08/19 Past Anesthesia/Blood Transfusion Reactions: Previous Problems w/ Anesthesia, Postoperative Nausea & Vomiting (PONV) Additional Past Anesthesia/Blood Transfusion Reaction / Comment(s): decrease bp with anesthesia,no problems with prior blood transfusion Past Psychological History: No Psychological Hx Reported Smoking Status: Never smoker Past Alcohol Use History: None Reported Past Drug Use History: None Reported - Past Family History Father Family Medical History: Pulmonary Embolus Additional Family Medical History / Comment(s): . Mother Family Medical History: Cancer Additional Family Medical History / Comment(s): . Sister(s) Family Medical History: Cancer Additional Family Medical History / Comment(s): . Daughter(s) Additional Family Medical History / Comment(s): lymphedema in legs General Exam - General Exam Comments Initial Comments: GENERAL: Patient is well-developed and well-nourished. Patient is nontoxic and well- hydrated and is in mild distress when the headache comes on but it only lasted 3 seconds ENT: Neck is soft and supple. No significant lymphadenopathy is noted. Oropharynx is clear. Moist mucous membranes. Neck has full range of motion without eliciting any pain. EYES: The sclera were anicteric and conjunctiva were pink and moist. Extraocular movements were intact and pupils were equal round and reactive to light. Eyelids were unremarkable. PULMONARY: Unlabored respirations. Good breath sounds bilaterally. No audible rales rhonchi or wheezing was noted. CARDIOVASCULAR: There is a regular rate and rhythm without any murmurs gallops or rubs. ABDOMEN: Soft and nontender with normal bowel sounds. SKIN: Skin is clear with no lesions or rashes and otherwise unremarkable. NEUROLOGIC: Patient is alert and oriented x3. Cranial nerves II through XII are grossly intact. Motor and sensory are also intact. Normal speech, volume and content. Symmetrical smile. MUSCULOSKELETAL: Normal extremities with adequate strength and full range of motion. No lower extremity swelling or edema. No calf tenderness. LYMPHATICS: No significant lymphadenopathy is noted PSYCHIATRIC: Normal psychiatric evaluation. Limitations: no limitations Course Vital Signs 07/21/19 07/21/19 07/21/19 15:18 15:27 17:09 Temperature 98.1 F 97.5 F L Pulse Rate 84 76 66 Respiratory 18 18 20 Rate Blood Pressure 106/71 115/83 134/77 O2 Sat by Pulse 98 100 100 Oximetry 07/21/19 18:42 Temperature Pulse Rate 73 Respiratory 18 Rate Blood Pressure 134/77 O2 Sat by Pulse 100 Oximetry Medical Decision Making - Medical Decision Making Patient was given oxygen via nonrebreather she had no relief. Patient was also given Toradol and Valium and Dilaudid and the episodic pain in her head continued. I spoke with Dr. Ha and he accepted the patient for admission. - Lab Data Result diagrams: 07/21/19 15:46 07/21/19 15:46 Lab Results 07/21/19 07/21/19 Range/Units 15:46 15:46 WBC 6.0 (3.8-10.6) k/uL RBC 3.78 L (3.80-5.40) m/uL Hgb 11.8 (11.4-16.0) gm/dL Hct 37.7 (34.0-46.0) % MCV 99.7 (80.0-100.0) fL MCH 31.2 (25.0-35.0) pg MCHC 31.3 (31.0-37.0) g/dL RDW 13.2 (11.5-15.5) % Plt Count 139 L (150-450) k/uL Neutrophils % 61 % Lymphocytes % 27 % Monocytes % 7 % Eosinophils % 2 % Basophils % 1 % Neutrophils # 3.7 (1.3-7.7) k/uL Lymphocytes # 1.6 (1.0-4.8) k/uL Monocytes # 0.4 (0-1.0) k/uL Eosinophils # 0.1 (0-0.7) k/uL Basophils # 0.1 (0-0.2) k/uL ESR 13 (0-20) mm/hr Sodium 137 (137-145) mmol/L Potassium 4.4 (3.5-5.1) mmol/L Chloride 105 (98-107) mmol/L Carbon Dioxide 20 L (22-30) mmol/L Anion Gap 12 mmol/L BUN 53 H (7-17) mg/dL Creatinine 2.59 H (0.52-1.04) mg/dL Est GFR (CKD-EPI)AfAm 20 (>60 ml/min/1.73 sqM) Est GFR (CKD-EPI)NonAf 17 (>60 ml/min/1.73 sqM) Glucose 85 (74-99) mg/dL Calcium 8.7 (8.4-10.2) mg/dL Total Bilirubin 0.6 (0.2-1.3) mg/dL AST 41 H (14-36) U/L ALT 32 (4-34) U/L Alkaline Phosphatase 61 (38-126) U/L Total Protein 6.8 (6.3-8.2) g/dL Albumin 4.1 (3.5-5.0) g/dL Disposition Clinical Impression: Episodic headache Disposition: ADMITTED IP TO THIS [facility] Referrals: Terrence Kwan MD [Primary Care Provider] - 1-2 days Time of Disposition: 19:27
--- NOTE | 2019-07-21 16:45 | CT ---
EXAMINATION TYPE: CT brain wo con DATE OF EXAM: 07/21/2019 COMPARISON: 08/23/2018 HISTORY: Headache. CT DLP: 1017.4 mGycm Automated exposure control for dose reduction was used. FINDINGS: Mild generalized degenerative change of the greater frontal lobe component. Intracranial atherosclero tic changes seen with no evidence of mass effect. Areas of low-attenuation the white matter persist a nd are similar to the prior exam most likely in the basis of remote microvascular ischemia. Calvarium intact. No midline shift or mass effect. Craniocervical junction maintained. Partially empt y sella turcica incidentally noted IMPRESSION: DEGENERATIVE AND NONSPECIFIC WHITE MATTER CHANGES SIMILAR TO THE PRIOR EXAM AND MOST LIKELY ON THE BA SIS OF PREVIOUS REMOTE ISCHEMIC WHITE MATTER CHANGE.
[2019-07-21 16:58] LABS: Erythrocyte Sedimentation Rate 13 mm/hr (0-20)
[2019-07-21] MEDS ORDERED: KETOROLAC 60 MG/2 ML VIAL IVP STA (17:03)
[2019-07-21] MEDS ORDERED: DIAZEPAM 5 MG/ML 2 ML INJ IVP STA (17:03)
[2019-07-21] MEDS ORDERED: HYDROmorphone 1 MG/ML 1 ML SYRINGE IVP STA (18:04)
[2019-07-21] MEDS ORDERED: SODIUM CHLORIDE 0.9% 1,000 ML IV ONE (19:28)
--- NOTE | 2019-07-21 20:46 | P.HPIM ---
History of Present Illness H&P Date: 07/21/19 Chief Complaint: headache Patient is a 73-year-old female with a past medical history of end- stage renal disease on hemodialysis, hypothyroidism, COPD/asthma, and pulmonary fibrosis with history of history of migraine headaches noted to be in remission for the last 10 years who presented to the ER via private vehicle with chief complaint of headache. The patient describes a right parietal headache as severe sharp stabbing occurring intermittently since approximately 11 AM this morning, she notes that initially the headaches were occurring about every 20 minutes and gradually increased in frequency occurring every few minutes before presentation, she reports some blurry vision, denies any stigmata of her typical migraines such as photo and audiophobia. The patient denies any focal weakness, denies slurred speech or facial droop. She denies any subjective fevers chills or night sweats. The patient denies any other complaints today In the ER the patient a comprehensive workup, CT of the head showed degenerative and nonspecific white matter changes similar to the prior exam possibly remote ischemic white matter change. Abnormal labs include platelets of 139, serum bicarb of 20, BUN 53, creatinine 2.59, AST 41. The patient was given Toradol, V alium and Dilaudid and recommended for admission for intractable headache Review of Systems Pertinent positives per HPI all other review of systems otherwise negative Past Medical History Past Medical History: COPD, Osteoarthritis (OA), Renal Disease, Thyroid Disorder Additional Past Medical History / Comment(s): kidney stones and UTI,steroid injection October 2018 hx lymphedema, hx pulmonary fibrosis, hx graves,hx rt foot torn ligaments,hx kidney stones, hx osteoporosis,hypotension, chronic respiratory failure on 2 L nasal cannula at night & prn, vitamin D deficiency, hypocalcemia History of Any Multi-Drug Resistant Organisms: CRE Date of last positivie culture/infection: 10/16/18 MDRO-CRE PER [facility] NOT [facility] MDRO Source:: Urine Past Surgical History: Bariatric Surgery Additional Past Surgical History / Comment(s): hx bariatric surgery-Kye En Y,lung biopsy,radioactive iodine-tx thyroid,rectal and bladder suspensions,vaginal surgery as a child,partha carpel tunnel,rt knee meniscus repair,D&C x3, left arm fistula 02/08/19 Past Anesthesia/Blood Transfusion Reactions: Previous Problems w/ Anesthesia, Postoperative Nausea & Vomiting (PONV) Additional Past Anesthesia/Blood Transfusion Reaction / Comment(s): decrease bp with anesthesia,no problems with prior blood transfusion Past Psychological History: No Psychological Hx Reported Smoking Status: Never smoker Past Alcohol Use History: None Reported Past Drug Use History: None Reported - Past Family History Father Family Medical History: Pulmonary Embolus Additional Family Medical History / Comment(s): . Mother Family Medical History: Cancer Additional Family Medical History / Comment(s): . Sister(s) Family Medical History: Cancer Additional Family Medical History / Comment(s): . Daughter(s) Additional Family Medical History / Comment(s): lymphedema in legs Medications and Allergies Home Medications Medication Instructions Recorded Confirmed Type Calcitriol 0.5 mcg PO BID@1400,2100 08/23/18 07/21/19 History Docusate [Colace] 100 mg PO DAILY@1400 08/23/18 07/21/19 History FLUoxetine HCL [PROzac] 20 mg PO BID@1400,2100 08/23/18 07/21/19 History Levothyroxine Sodium [Synthroid] 112 mcg PO MOTUWETHFRSA 08/23/18 07/21/19 History Levothyroxine Sodium [Synthroid] 224 mcg PO MURO 08/23/18 07/21/19 History Loratadine [Alavert] 10 mg PO DAILY@1400 08/23/18 07/21/19 History Montelukast [Singulair] 10 mg PO HS 08/23/18 07/21/19 History Omeprazole 40 mg PO DAILY@1400 11/19/18 07/21/19 History Ergocalciferol (Vitamin D2) 50,000 unit PO MOWEFR 01/31/19 07/21/19 History [Vitamin D2] traMADol HCl [Ultram] 50 mg PO Q8HR PRN #9 tab 04/15/19 07/21/19 Rx Bumetanide [Bumex] 1 mg PO DAILY 07/21/19 07/21/19 History Magnesium Chloride [Mag64] 64 mg PO DAILY 07/21/19 07/21/19 History Potassium Chloride ER [K-Dur 20] 20 meq PO BID 07/21/19 07/21/19 History Sodium Bicarbonate 10 mg PO TID 07/21/19 07/21/19 History metroNIDAZOLE [Flagyl] 250 mg PO DAILY 07/21/19 07/21/19 History Allergies Allergy/AdvReac Type Severity Reaction Status Date / Time adhesive tape Allergy Rash/Hives Verified 07/21/19 15:18 Sulfa (Sulfonamide Allergy Itching Verified 07/21/19 15:18 Antibiotics) tetracycline Allergy Nausea & Verified 07/21/19 15:18 Vomiting codeine AdvReac Nausea Verified 07/21/19 15:18 Physical Exam Vitals: Vital Signs Temp Pulse Resp BP Pulse Ox 07/21/19 18:42 73 18 134/77 100 07/21/19 17:09 66 20 134/77 100 07/21/19 15:27 97.5 F L 76 18 115/83 100 07/21/19 15:18 98.1 F 84 18 106/71 98 Intake and Output 07/21/19 07/21/19 07/21/19 06:59 14:59 22:59 Other: Weight 57 kg Constitutional: No acute distress, conversant, pleasant Eyes: Anicteric sclerae, moist conjunctiva, no lid-lag, PERRLA ENMT: NC/AT,Oropharynx clear, no erythema, exudates Neck:Supple, FROM, no masses, or JVD, No carotid bruits; No thyromegaly Lungs: Clear to auscultation, Clear to percussion, Normal respiratory effort, no accessory muscle use Cardiovascular: Heart regular in rate and rhythm, No murmurs, gallops, or rubs no peripheral edema Abdominal: Soft Nontender, nom distended, no guarding, no rebound or rigidity, Normoactive bowel sounds No hepatomegaly, No splenomegaly, No palpable mass No abdominal wall hernia noted Skin: Normal temperature, tone, texture, turgor, No induration No subcutaneous nodules, No rash, lesions, No ulcers Extremities:No digital cyanosis No clubbing, Pedal pulses intact and symmetrical Radial pulses intact and symmetrical Normal gait and station, No c bozena tenderness Psychiatric: Alert and oriented to person, place and time, Appropriate affect Intact judgement Neuro: Muscles Strength 5/5 in all 4 extremities, Sensation to light touch grossly present throughout, Cranial nerves II-XII grossly intact. No focal sensory deficits Results CBC & Chem 7: 07/21/19 15:46 07/21/19 15:46 Labs: Abnormal Lab Results - Last 24 Hours (Table) 02/16/20 02/16/20 Range/Units 15:46 15:46 RBC 3.78 L (3.80-5.40) m/uL Plt Count 139 L (150-450) k/uL Carbon Dioxide 20 L (22-30) mmol/L BUN 53 H (7-17) mg/dL Creatinine 2.59 H (0.52-1.04) mg/dL AST 41 H (14-36) U/L Assessment and Plan Assessment: Intractable headache End-stage renal disease on hemodialysis COPD without acute exacerbation Hypothyroidism Plan: The patient is placed in observation status anticipate less than 2 midnight stay with intractable headache in a patient with a history of migraines previously noted to be in remission, the patient was given Toradol and Dilaudid without any significant improvement. We'll start Fioricet and Reglan and plan to consult neurology for further recommendations. The patient is also known to have incisional disease on hemodialysis hence nephrology Dr. Wheeler will be consulted to coordinate renal replacement therapy on the patient is hospitalized. We'll continue to follow this patient's clinical course. CODE STATUS; full code Anticipate a discharge place; home Discussed plan of care with" patient and Messi OGLESBYDerrick Prophylaxis: SCDs/heparin
[2019-07-21] MEDS: FLUoxetine HCL 20 MG CAP PO SCH (21:58)
[2019-07-21] MEDS: BUTALB/APAP/CAFF 50-325-40MG TAB PO PRN (21:58)
[2019-07-21] MEDS: MONTELUKAST 10 MG TAB PO SCH (21:59)
[2019-07-21] MEDS: POTASSIUM CHLORIDE ER 20 MEQ TAB.ER PO SCH (21:59)
[2019-07-21] MEDS: HEPARIN SODIUM,PORCINE 5,000 UNIT/ML 1 ML VIAL SQ SCH (21:59)
[2019-07-21] MEDS ORDERED: SODIUM BICARBONATE 10 MG PO SCH (22:00)
[2019-07-21] MEDS: CALCITRIOL 0.25 MCG CAP PO SCH (22:00)
[2019-07-21] MEDS: traMADol 50 MG TAB PO PRN (23:10)
[2019-07-22] MEDS: METOCLOPRAMIDE 5 MG/ML 2 ML VIAL IVP SCH ×4 (00:53→16:23)
[2019-07-22] MEDS ORDERED: AMITRIPTYLINE HCL 25 MG TAB PO STA (01:08)
[2019-07-22] MEDS ORDERED: KETOROLAC 30 MG/ML 1 ML VIAL IVP STA (01:09)
[2019-07-22] MEDS ORDERED: DIAZEPAM 5 MG TAB PO STA (01:10)
[2019-07-22] MEDS: LEVOTHYROXINE 112 MCG TAB PO SCH (06:30)
[2019-07-22 07:43] LABS: Basophils % (A) 1 %; Eosinophils # (A) 0.2 k/uL (0-0.7); Eosinophils % (A) 4 %; HCT 31.2 % (34.0-46.0); Lymphocytes # (A) 1.5 k/uL (1.0-4.8); Lymphocytes % (A) 33 %; MCH 32.2 pg (25.0-35.0); MCHC 31.9 g/dL (31.0-37.0); MCV 100.9 fL (80.0-100.0); Mean Platelet Volume 8.7; Monocytes # (A) 0.4 k/uL (0-1.0); Monocytes % (A) 8 %; Neutrophils # (A) 2.3 k/uL (1.3-7.7); Neutrophils % (A) 50 %; Platelet Count 117 k/uL (150-450); RBC 3.09 m/uL (3.80-5.40); WBC 4.7 k/uL (3.8-10.6)
[2019-07-22 08:11] LABS: Albumin 2.8 g/dL (3.5-5.0); Calcium 8.1 mg/dL (8.4-10.2); Potassium 3.7 mmol/L (3.5-5.1); Total Bilirubin 0.5 mg/dL (0.2-1.3); Total Protein 5.1 g/dL (6.3-8.2)
[2019-07-22] MEDS ORDERED: MAGNESIUM CHLORIDE 64 MG PO SCH (09:00)
[2019-07-22] MEDS: HEPARIN SODIUM,PORCINE 5,000 UNIT/ML 1 ML VIAL SQ SCH ×2 (10:27→21:44)
[2019-07-22] MEDS: POTASSIUM CHLORIDE ER 20 MEQ TAB.ER PO SCH ×2 (10:27→21:44)
[2019-07-22] MEDS: ERGOCALCIFEROL 50,000 UNIT CAP PO SCH (10:28)
[2019-07-22] MEDS: BUMETANIDE 1 MG TAB PO SCH (10:28)
[2019-07-22] MEDS ORDERED: MIDODRINE 5 MG TAB PO ONE (11:45)
--- NOTE | 2019-07-22 12:55 | P.NPCON ---
History of Present Illness - Reason for Consult end stage renal disease - History of Present Illness Reason for consultation: End-stage renal disease History of present illness: Patient is a 74-year-old female seen in renal consultation for end-stage renal disease. She is maintained on hemodialysis and performs hemodialysis 5 times per week. Patient states her last complete hemodialysis treatment was on Monday. On Monday for access infiltrated and she had intervention done at [facility]. Patient developed severe headaches and came to the hospital. Her blood pressure is controlled. No vomiting or diarrhea. No chest pain or shortness of breath. Patient states that the headaches are completely resolved. She is currently seeing was undergoing hemodialysis. Brain CT revealed no acute changes. No fever or chills. No abdominal pain. Oral intake is fair. Vital signs are stable. General: The patient appeared well nourished and normally developed. HEENT: Head exam is unremarkable. Neck is without jugular venous distension. LUNGS: Lungs are clear to auscultation and percussion. Breath sounds decreased. HEART: Rate and Rhythm are regular. First and second heart sounds normal. No murmurs, rubs or gallops. ABDOMEN: Abdominal exam reveals normal bowel sounds. Non-tender and non- distended. No evidence of peritonitis. EXTREMITITES: No clubbing, cyanosis, or edema. Past Medical History Past Medical History: Asthma, COPD, Deep Vein Thrombosis (DVT), GERD/Reflux, Osteoarthritis (OA), Pneumonia, Renal Disease, Thyroid Disorder Additional Past Medical History / Comment(s): kidney stones and UTI,steroid injection October 2018 hx lymphedema, hx pulmonary fibrosis, hx graves,hx rt foot torn ligaments,hx osteoporosis, hypotension, chronic respiratory failure on 2 L nasal cannula at night & prn, vitamin D deficiency, hypocalcemia, two DVTs in the graft on her left arm in May of 2019 History of Any Multi-Drug Resistant Organisms: CRE Date of last positivie culture/infection: 10/16/18 MDRO-CRE PER [facility] NOT [facility] MDRO Source:: Urine Past Surgical History: Adenoidectomy, Appendectomy, Bariatric Surgery, Bladder Surgery, Cholecystectomy, Hysterectomy, Orthopedic Surgery, Tonsillectomy, Tubal Ligation Additional Past Surgical History / Comment(s): hx bariatric surgery-Kye En Y,lung biopsy,radioactive iodine-tx thyroid,rectal and bladder suspensions,vaginal surgery as a child, partha carpel tunnel,rt knee meniscus repair,D&C x3, left arm graft 02/08/19 Past Anesthesia/Blood Transfusion Reactions: Previous Problems w/ Anesthesia, Postoperative Nausea & Vomiting (PONV) Additional Past Anesthesia/Blood Transfusion Reaction / Comment(s): decrease bp with anesthesia, no problems with prior blood transfusion Past Psychological History: No Psychological Hx Reported Smoking Status: Never smoker Past Alcohol Use History: None Reported Past Drug Use History: None Reported - Past Family History Father Family Medical History: Pulmonary Embolus Additional Family Medical History / Comment(s): . Mother Family Medical History: Cancer Additional Family Medical History / Comment(s): . Sister(s) Family Medical History: Cancer Additional Family Medical History / Comment(s): kidney cancer Daughter(s) Additional Family Medical History / Comment(s): lymphedema in legs Brother(s) Family Medical History: Cancer Additional Family Medical History / Comment(s): skin cancer Medications and Allergies Home Medications Medication Instructions Recorded Confirmed Type Docusate [Colace] 100 mg PO DAILY PRN 08/23/18 07/22/19 History FLUoxetine HCL [PROzac] 20 mg PO BID 08/23/18 07/22/19 History Levothyroxine Sodium [Synthroid] 112 mcg PO MOTUWETHFRSA 08/23/18 07/22/19 History Levothyroxine Sodium [Synthroid] 224 mcg PO MURO 08/23/18 07/22/19 History Loratadine [Alavert] 10 mg PO DAILY 08/23/18 07/22/19 History Montelukast [Singulair] 10 mg PO HS 08/23/18 07/22/19 History Omeprazole 40 mg PO DAILY 11/19/18 07/22/19 History Ergocalciferol (Vitamin D2) 50,000 unit PO MOWEFR 01/31/19 07/22/19 History [Vitamin D2] Bumetanide [Bumex] 1 mg PO DAILY 07/21/19 07/22/19 History Potassium Chloride ER [K-Dur 20] 20 meq PO BID 07/21/19 07/22/19 History metroNIDAZOLE [Flagyl] 250 mg PO DAILY 07/21/19 07/22/19 History Calcium Acetate [Phoslo] 667 mg PO QID 07/22/19 07/22/19 History Fluticasone/Salmeterol [Advair 1 inhalation PO RT-BID PRN 07/22/19 07/22/19 History 250-50 Diskus] Midodrine HCl [ProAmatine] 10 mg PO TID 07/22/19 07/22/19 History Sodium Bicarbonate Tab 650 mg PO BID 07/22/19 07/22/19 History Trimethobenzamide HCl [Tigan] 300 mg PO TID PRN 07/22/19 07/22/19 History traMADol HCL [Ultram] 50 mg PO QID PRN 07/22/19 07/22/19 History Allergies Allergy/AdvReac Type Severity Reaction Status Date / Time adhesive tape Allergy Rash/Hives Verified 07/22/19 09:34 Sulfa (Sulfonamide Allergy Itching Verified 07/22/19 09:34 Antibiotics) tetracycline Allergy Nausea & Verified 07/22/19 09:34 Vomiting codeine AdvReac Nausea Verified 07/22/19 09:34 Physical Exam Vitals: Vital Signs Temp Pulse Pulse Resp BP BP Pulse Ox 07/22/19 08:00 70 16 07/22/19 07:00 98.8 F 70 16 99/55 97 07/22/19 03:06 18 07/22/19 02:03 97.7 F 67 18 118/72 97 07/22/19 00:53 18 07/21/19 22:13 18 07/21/19 21:39 97.5 F L 65 18 144/80 97 07/21/19 20:37 82 18 128/82 100 07/21/19 18:42 73 18 134/77 100 07/21/19 17:09 66 20 134/77 100 07/21/19 15:27 97.5 F L 76 18 115/83 100 07/21/19 15:18 98.1 F 84 18 106/71 98 Intake and Output 07/21/19 07/22/19 07/22/19 22:59 06:59 14:59 Other: Voiding Method Toilet Toilet Toilet Weight 57 kg Results - Lab Results Most recent lab results Calcium 8.1 mg/dL (8.4-10.2) L 07/22/19 06:41 07/22/19 06:41 07/22/19 06:41 Assessment and Plan Plan: Assessment: 1. End-stage renal disease maintained on home hemodialysis. 2. Metabolic acidosis secondary to chronic kidney disease. 3. Anemia of chronic kidney disease. Hemoglobin at goal. 4. Hypokalemia secondary to diuresis maintained on oral potassium supplementation. 5. 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 6. Headache. Patient does have history of migraines. Currently resolved. Maintained on Fioricet. 7. Chronic hypotension maintained on midodrine. Plan: Currently seen following hemodialysis. Another treatment tomorrow. Anticipate discharge soon. Thank you for the consultation. I will continue to follow the patient with you during her hospital stay.
--- NOTE | 2019-07-22 13:21 | P.DS ---
Providers Date of admission: 07/21/19 19:28 Expected date of discharge: 07/22/19 Attending physician: Azalia Ha MD Consults: 07/21/19 19:28 Consult Physician Urgent Consulting Provider: Abbey Wheeler Consult Reason/Comments: Dialysis Do you want consulting provider notified?: Yes 07/21/19 20:34 Consult Physician Urgent Consulting Provider: Joana Morse Consult Reason/Comments: episodic headaches Do you want consulting provider notified?: Yes, Notify in am Primary care physician: [facility] Course: Patient is a 73-year-old female with a past medical history of end- stage renal disease on hemodialysis, hypothyroidism, COPD/asthma, and pulmonary fibrosis with history of history of migraine headaches noted to be in remission for the last 10 years who presented to the ER via private vehicle with chief complaint of headache. The patient describes a right parietal headache as severe sharp stabbing occurring intermittently since approximately 11 AM this morning, she notes that initially the headaches were occurring about every 20 minutes and gradually increased in frequency occurring every few minutes before presentation, she reports some blurry vision, denies any stigmata of her typical migraines such as photo and audiophobia. The patient denies any focal weakness, denies slurred speech or facial droop. In the ER the patient a comprehensive workup, CT of the head showed degenerative and nonspecific white matter changes similar to the prior exam possibly remote ischemic white matter change. Abnormal labs include platelets of 139, serum bicarb of 20, BUN 53, creatinine 2.59, AST 41. The patient was given Toradol, Valium and Dilaudid and recommended for admission for intractable headache. Her headache was controlled with Fioricet, and tramadol. Her headaches resolved on day one of admission. Patient was seen and examined. No acute events overnight. Patient reports complete resolution of her headache. She denies any chest pain, shortness of breath or palpitations. No nausea or vomiting. No fever or chills. Currently undergoing dialysis. Patient reported headache to be right sided, "ice-pick" like stabbing in nature associated with blurry vision in both of her eyes. She denies any dizziness, numbness/weakness/tingling of the extremities. General: [non toxic], [no distress], [appears at stated age] Derm: [warm], [dry] Head: [atraumatic], [normocephalic], [symmetric] Eyes: [EOMI], [no lid lag], [anicteric sclera] Mouth: [no lip lesion], [mucus membranes moist] Cardiovascular: [S1S2 reg], [no murmur], [positive posterior tibial pulse bilateral], Lungs: [CTA bilateral], [no rhonchi, no rales] , [no accessory muscle use] Abdominal: [soft], [ nontender to palpation], [no guarding], [no appreciable organomegaly] Ext: [no gross muscle atrophy], [no edema], [no contractures], [left upper extremity fistula] Neuro: [no focal neuro deficits] Psych: [Alert], [oriented], [appropriate affect] Intractable headache End-stage renal disease on hemodialysis COPD without exacerbation Hypothyroidism Now resolved. Plans: Follow neurology consultation. Toradol or Fioricet as needed. Plans: Follow nephrology recommendations. Hemodialysis Monday schedule. Plans: Restart Singulair. Plans: Restart Synthroid. [Patient's headache has resolved. We will wait on neurology recommendations and clearance prior to discharge. Likely DC today or tomorrow.] Pertinent Studies: Brain CT Patient Condition at Discharge: Stable Plan - Discharge Summary Discharge Rx Participant: Yes New Discharge Prescriptions: New Butalb/APAP/Caff 50-325-40Mg [Fioricet 50-325-40] 1 each PO Q4HR PRN #30 tab PRN Reason: Headache Continue Montelukast [Singulair] 10 mg PO HS Loratadine [Alavert] 10 mg PO DAILY FLUoxetine HCL [PROzac] 20 mg PO BID Docusate [Colace] 100 mg PO DAILY PRN PRN Reason: Constipation Levothyroxine Sodium [Synthroid] 224 mcg PO MURO Levothyroxine Sodium [Synthroid] 112 mcg PO MOTUWETHFRSA Omeprazole 40 mg PO DAILY Ergocalciferol (Vitamin D2) [Vitamin D2] 50,000 unit PO MOWEFR Potassium Chloride ER [K-Dur 20] 20 meq PO BID Bumetanide [BUMEX] 1 mg PO DAILY Trimethobenzamide HCl [Tigan] 300 mg PO TID PRN PRN Reason: Nausea And Vomiting Sodium Bicarbonate Tab 650 mg PO BID Fluticasone/Salmeterol [Advair 250-50 Diskus] 1 inhalation PO RT-BID PRN PRN Reason: Shortness Of Breath Calcium Acetate [PhosLo] 667 mg PO QID Midodrine HCl [ProAmatine] 10 mg PO TID traMADol HCL [Ultram] 50 mg PO QID PRN PRN Reason: Pain Discontinued metroNIDAZOLE [Flagyl] 250 mg PO DAILY Discharge Medication List Docusate [Colace] 100 mg PO DAILY PRN 08/23/18 [History] FLUoxetine HCL [PROzac] 20 mg PO BID 08/23/18 [History] Levothyroxine Sodium [Synthroid] 112 mcg PO MOTUWETHFRSA 08/23/18 [History] Levothyroxine Sodium [Synthroid] 224 mcg PO MURO 08/23/18 [History] Loratadine [Alavert] 10 mg PO DAILY 08/23/18 [History] Montelukast [Singulair] 10 mg PO HS 08/23/18 [History] Omeprazole 40 mg PO DAILY 11/19/18 [History] Ergocalciferol (Vitamin D2) [Vitamin D2] 50,000 unit PO MOWEFR 01/31/19 [Hist ory] Bumetanide [BUMEX] 1 mg PO DAILY 07/21/19 [History] Potassium Chloride ER [K-Dur 20] 20 meq PO BID 07/21/19 [History] Butalb/APAP/Caff 50-325-40Mg [Fioricet 50-325-40] 1 each PO Q4HR PRN #30 tab 07/22/19 [Rx] Calcium Acetate [PhosLo] 667 mg PO QID 07/22/19 [History] Fluticasone/Salmeterol [Advair 250-50 Diskus] 1 inhalation PO RT-BID PRN 07/22/19 [History] Midodrine HCl [ProAmatine] 10 mg PO TID 07/22/19 [History] Sodium Bicarbonate Tab 650 mg PO BID 07/22/19 [History] Trimethobenzamide HCl [Tigan] 300 mg PO TID PRN 07/22/19 [History] traMADol HCL [Ultram] 50 mg PO QID PRN 07/22/19 [History] Follow up Appointment(s)/Referral(s): Terrence Kwan MD [Primary Care Provider] - 1-2 days Activity/Diet/Wound Care/Special Instructions: Diet: Low-salt Follow-up PCP within 3 days of discharge. Follow-up with your neurologist within 1 week of discharge. Clinical medications as advised. Come back to the ED for uncontrolled headache, slurred speech, confusion, numbness weakness tingling of the extremities. Discharge Disposition: HOME SELF-CARE
[2019-07-22] MEDS: CALCITRIOL 0.25 MCG CAP PO SCH (15:09)
[2019-07-22] MEDS: BUTALB/APAP/CAFF 50-325-40MG TAB PO PRN (15:14)
[2019-07-22] MEDS: LORATADINE 10 MG TAB PO SCH (15:14)
[2019-07-22] MEDS: FLUoxetine HCL 20 MG CAP PO SCH ×2 (15:14→21:44)
--- NOTE | 2019-07-22 15:14 | P.CNNES ---
History of Present Illness Consult date: 07/22/19 Requesting physician: Vicente Armendariz Reason for Consult: Episodic headaches History of Present Illness: Patient is a 74-year-old female, with a history of ESRD on hemodialysis, came to the hospital because of new onset intermittent headache. Patient states that she was getting hemodialysis at her home on Monday, and the graft infiltrated. Patient was admitted to a hospital on Monday, released on 07/20/2019. The next day, which is yesterday morning on Monday, she woke up at 9 AM, and was feeling fine. At around 11 AM, she started noticing shooting pain in the head. It was an ice pick headache, pointing to the right posterior parietal region. It would last for a brief second, goes away, but come back in 20-30 minutes. As the time went on, it started occurring more frequently, occurring every 5 min utes. When patient arrived to the ER, it was occurring every minute. It was very severe headache 10/10, with no associated vascular features. Patient did get some nausea but no vomiting. Patient denies any focal symptoms with it. In between these transient headache, she was perfectly fine. When patient arrived to the ER, patient was given Toradol 15 mg, Valium and Dilaudid, which did not help. Patient also received Elavil 75 mg, Valium 5 mg Patient got to assess doses at 4 AM also, and thereafter the patient slept, and when she woke up this morning, the headache was gone. At present she has no complaints. Patient's was also present, who tells me that patient follows up with Dr. Mora, the neurologist, and had undergone an MRI of the brain and MRA of head about a month ago for follow-up on cerebral aneurysm that was diagnosed 6 months ago. Patient's told me that they were told that it is common in their age and no treatment was recommended. Patient also has history of migraines in the past. However she has not had any migraines in the last 10 years. Her migraines typically is more constant throbbing headache associated with photophobia or phonophobia and nausea and vomiting. Patient underwent computed tomography scan of the head, which revealed deg enerative and nonspecific white matter changes similar to the prior exam and most likely on the basis of previous remote ischemic white matter change. On my review, there is no evidence of paranasal sinus disease. Patient's blood test shows WBC 6.0 hemoglobin 11.8 normal platelets 139. Electrolytes normal, BUN 53, creatinine 2.59. Liver functions with AST 41, ALT 32. Patient's ESR is normal 13. Review of Systems Patient feels tired. Denies any problem with the vision, denies any hoarseness or throat dysphagia. The headache is resolved. Denies any chest pain shortness of breath wheezing or cough. Past Medical History Past Medical History: Asthma, COPD, Deep Vein Thrombosis (DVT), GERD/Reflux, Osteoarthritis (OA), Pneumonia, Renal Disease, Thyroid Disorder Additional Past Medical History / Comment(s): kidney stones and UTI,steroid injection October 2018 hx lymphedema, hx pulmonary fibrosis, hx graves,hx rt foot torn ligaments,hx osteoporosis, hypotension, chronic respiratory failure on 2 L nasal cannula at night & prn, vitamin D deficiency, hypocalcemia, two DVTs in the graft on her left arm in May of 2019 History of Any Multi-Drug Resistant Organisms: CRE Date of last positivie culture/infection: 10/16/18 MDRO-CRE PER [facility] MDRO Source:: Urine Past Surgical History: Adenoidectomy, Appendectomy, Bariatric Surgery, Bladder Surgery, Cholecystectomy, Hysterectomy, Orthopedic Surgery, Tonsillectomy, Tubal Ligation Additional Past Surgical History / Comment(s): hx bariatric surgery-[place],lung biopsy,radioactive iodine-tx thyroid,rectal and bladder suspensions,vaginal surgery as a child, partha carpel tunnel,rt knee meniscus repair,D&C x3, left arm graft 02/08/19 Past Anesthesia/Blood Transfusion Reactions: Previous Problems w/ Anesthesia, Postoperative Nausea & Vomiting (PONV) Additional Past Anesthesia/Blood Transfusion Reaction / Comment(s): decrease bp with anesthesia, no problems with prior blood transfusion Past Psychological History: No Psychological Hx Reported Smoking Status: Never smoker Past Alcohol Use History: None Reported Past Drug Use History: None Reported - Past Family History Father Family Medical History: Pulmonary Embolus Additional Family Medical History / Comment(s): . Mother Family Medical History: Cancer Additional Family Medical History / Comment(s): . Sister(s) Family Medical History: Cancer Additional Family Medical History / Comment(s): kidney cancer Daughter(s) Additional Family Medical History / Comment(s): lymphedema in legs Brother(s) Family Medical History: Cancer Additional Family Medical History / Comment(s): skin cancer Medications and Allergies Home Medications Medication Instructions Recorded Confirmed Type Docusate [Colace] 100 mg PO DAILY PRN 08/23/18 07/22/19 History FLUoxetine HCL [PROzac] 20 mg PO BID 08/23/18 07/22/19 History Levothyroxine Sodium [Synthroid] 112 mcg PO MOTUWETHFRSA 08/23/18 07/22/19 History Levothyroxine Sodium [Synthroid] 224 mcg PO MURO 08/23/18 07/22/19 History Loratadine [Alavert] 10 mg PO DAILY 08/23/18 07/22/19 History Montelukast [Singulair] 10 mg PO HS 08/23/18 07/22/19 History Omeprazole 40 mg PO DAILY 11/19/18 07/22/19 History Ergocalciferol (Vitamin D2) 50,000 unit PO MOWEFR 01/31/19 07/22/19 History [Vitamin D2] Bumetanide [BUMEX] 1 mg PO DAILY 07/21/19 07/22/19 History Potassium Chloride ER [K-Dur 20] 20 meq PO BID 07/21/19 07/22/19 History Butalb/APAP/Caff 50-325-40Mg 1 each PO Q4HR PRN #30 tab 07/22/19 Rx [Fioricet 50-325-40] Calcium Acetate [PhosLo] 667 mg PO QID 07/22/19 07/22/19 History Fluticasone/Salmeterol [Advair 1 inhalation PO RT-BID PRN 07/22/19 07/22/19 History 250-50 Diskus] Midodrine HCl [ProAmatine] 10 mg PO TID 07/22/19 07/22/19 History Sodium Bicarbonate Tab 650 mg PO BID 07/22/19 07/22/19 History Trimethobenzamide HCl [Tigan] 300 mg PO TID PRN 07/22/19 07/22/19 History traMADol HCL [Ultram] 50 mg PO QID PRN 07/22/19 07/22/19 History Allergies Allergy/AdvReac Type Severity Reaction Status Date / Time adhesive tape Allergy Rash/Hives Verified 07/22/19 09:34 Sulfa (Sulfonamide Allergy Itching Verified 07/22/19 09:34 Antibiotics) tetracycline Allergy Nausea & Verified 07/22/19 09:34 Vomiting codeine AdvReac Nausea Verified 07/22/19 09:34 Physical Examination - Vital Signs Vital Signs: Vital Signs Temp Pulse Pulse Resp BP BP Pulse Ox 07/22/19 08:00 70 16 07/22/19 07:00 98.8 F 70 16 99/55 97 07/22/19 03:06 18 07/22/19 02:03 97.7 F 67 18 118/72 97 07/22/19 00:53 18 07/21/19 22:13 18 07/21/19 21:39 97.5 F L 65 18 144/80 97 07/21/19 20:37 82 18 128/82 100 07/21/19 18:42 73 18 134/77 100 07/21/19 17:09 66 20 134/77 100 07/21/19 15:27 97.5 F L 76 18 115/83 100 07/21/19 15:18 98.1 F 84 18 106/71 98 Intake and Output 07/21/19 07/22/19 07/22/19 22:59 06:59 14:59 Other: Voiding Method Toilet Toilet Toilet Weight 57 kg On examination patient is an elderly female, somewhat petite, in no distress. Patient is getting hemodialysis. These no carotid bruit or murmur pa tient has lymphedema bilaterally. On neurologic examination patient is an elderly female, in no distress. Patient is slightly drowsy, but awake, oriented to time place and person. Speech and language functions are normal. Attention and concentration, and fund of knowledge is adequate. On cranial nerve examination pupils are round and reactive to light, visual vaughan are full, extraocular muscles are intact. Face is symmetric, tongue protrudes the midline. Palatal elevation sensation normal. On muscle strength testing there is no pronator drift and the strength is normal in arms and legs distally and proximally. Reflexes are 1+ and plantars downgoing. Sensory touch is equa l. No ataxia for [id number] tone and bulk of muscles normal. No rash noted over the right parietal scalp. No tenderness over the nuchal region. Results - Laboratory Findings CBC and BMP: 07/22/19 06:41 07/22/19 06:41 Abnormal Lab Findings: Abnormal Labs 07/21/19 07/21/19 07/22/19 15:46 15:46 06:41 RBC 3.78 L 3.09 L Hgb 10.0 L D Hct 31.2 L MCV 100.9 H Plt Count 139 L 117 L Chloride Carbon Dioxide 20 L BUN 53 H Creatinine 2.59 H Calcium AST 41 H Total Protein Albumin 07/22/19 06:41 RBC Hgb Hct MCV Plt Count Chloride 110 H Carbon Dioxide 18 L BUN 58 H Creatinine 2.66 H Calcium 8.1 L AST 47 H Total Protein 5.1 L Albumin 2.8 L Assessment and Plan Assessment: * 74-year-old female admitted with recurrent, transient, sharp ice pick headaches involving the right parietal region. Exact cause is uncertain. Patient does not have symptoms of occipital neuralgia or trigeminal neuralgia. Apparently her ice pick headaches have resolved overnight. At present patient is completely asymptomatic. ESR is normal with no evidence of temporal arteritis. * Reported history of cerebral aneurysm. Her headaches are not suggestive of aneurysmal headache. Patient's computed tomography scan of the head was normal. No meningeal signs. * End-stage renal disease, on hemodialysis Plan: * At present patient's headaches have resolved. * At this time we will perform watchful observation. We will obtain reports of MRI of the brain/MRA of head from her neurologist office. * Please call neurology if the headache reoccurs. * If her headaches remains in remission by end of the day, patient can be discharged and follow up with a neurologist in 1-2 days.
[2019-07-22] MEDS: DOCUSATE 100 MG CAP PO SCH (15:15)
[2019-07-22] MEDS: PANTOPRAZOLE 40 MG TABLET PO SCH (15:15)
[2019-07-22] MEDS: MIDODRINE 5 MG TAB PO SCH (17:48)
[2019-07-22] MEDS ORDERED: KETOROLAC 30 MG/ML 1 ML VIAL IVP SCH (18:00)
[2019-07-22] MEDS: MONTELUKAST 10 MG TAB PO SCH (21:44)
[2019-07-23] MEDS: METOCLOPRAMIDE 5 MG/ML 2 ML VIAL IVP SCH ×4 (00:03→18:11)
[2019-07-23] MEDS: traMADol 50 MG TAB PO PRN (03:01)
[2019-07-23] MEDS: LEVOTHYROXINE 112 MCG TAB PO SCH (05:57)
[2019-07-23] MEDS: KETOROLAC 30 MG/ML 1 ML VIAL IVP PRN ×2 (05:58→16:36)
[2019-07-23] MEDS: MIDODRINE 5 MG TAB PO SCH ×3 (08:39→16:37)
[2019-07-23] MEDS: POTASSIUM CHLORIDE ER 20 MEQ TAB.ER PO SCH ×2 (08:39→20:09)
[2019-07-23] MEDS: BUMETANIDE 1 MG TAB PO SCH (08:40)
--- NOTE | 2019-07-23 11:31 | P.PN ---
Subjective Patient is seen in follow-up for end-stage renal disease. Headache is improved. Tolerated hemodialysis well yesterday. No active complaints at this time. Vital signs are stable. General: The patient appeared well nourished and normally developed. HEENT: Head exam is unremarkable. Neck is without jugular venous distension. LUNGS: Lungs are clear to auscultation and percussion. Breath sounds decreased. HEART: Rate and Rhythm are regular. First and second heart sounds normal. No murmurs, rubs or gallops. ABDOMEN: Abdominal exam reveals normal bowel sounds. Non-tender and non- distended. No evidence of peritonitis. EXTREMITITES: No clubbing, cyanosis, or edema. Objective - Vital Signs Vital signs: Vital Signs Temp 97.8 F 07/23/19 07:20 Pulse 70 07/23/19 07:20 Resp 15 07/23/19 07:20 BP 119/76 07/23/19 07:20 Pulse Ox 98 07/23/19 07:20 Intake & Output 07/22/19 07/23/19 07/23/19 18:59 06:59 18:59 Intake Total 525 1500 200 Output Total 300 Balance 525 1200 200 Intake: Intake, IV Titration 525 1200 Amount Sodium Chloride 0.9% 1, 525 1200 000 ml @ 75 mls/hr IV . [id number] Rx#:[id number] Oral 200 Hemodialysis 300 Output: Hemodialysis 300 Other: Voiding Method Toilet Toilet # Voids 1 - Labs CBC & Chem 7: 07/22/19 06:41 07/22/19 06:41 Assessment and Plan Plan: Assessment: 1. End-stage renal disease maintained on home hemodialysis. 2. Metabolic acidosis secondary to chronic kidney disease. Expect improvement postdialysis. 3. Anemia of chronic kidney disease. Hemoglobin at goal. 4. Hypokalemia secondary to diuresis maintained on oral potassium suppl ementation. 5. 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 6. Headache. Patient does have history of migraines. Currently resolved. Maintained on Fioricet. 7. Chronic hypotension maintained on midodrine. Plan: Hemodialysis today. Stable to be discharged home from nephrology standpoint.
[2019-07-23] MEDS: HEPARIN SODIUM,PORCINE 5,000 UNIT/ML 1 ML VIAL SQ SCH ×2 (12:01→20:09)
--- NOTE | 2019-07-23 14:27 | P.PN ---
Subjective Progress Note Date: 07/23/19 Principal diagnosis: Intractable headache Patient was seen and examined. No acute events overnight. Patient reports headaches that started after her dialysis session yesterday. Patient reports the pain to be unbearable., Stabbing in nature located on the right side of her head. Her headache is associated with blurry vision. She denies any chest pain, shortness of breath or palpitations. No nausea or vomiting. No fever or chills. States that these headaches last for 5 seconds at a time and occurs every few minutes. Patient states that pain medication is currently taking the edge off of her headaches. Objective - Vital Signs Vital signs: Vital Signs Temp 97.8 F 07/23/19 07:20 Pulse 70 07/23/19 07:20 Resp 15 07/23/19 07:20 BP 119/76 07/23/19 07:20 Pulse Ox 98 07/23/19 07:20 Intake & Output 07/22/19 07/23/19 07/23/19 18:59 06:59 18:59 Intake Total 525 1500 200 Output Total 300 Balance 525 1200 200 Intake: Intake, IV Titration 525 1200 Amount Sodium Chloride 0.9% 1, 525 1200 000 ml @ 75 mls/hr IV . [id number] ONE Rx#:[id number] Oral 200 Hemodialysis 300 Output: Hemodialysis 300 Other: Voiding Method Toilet Toilet # Voids 1 - Exam General: [non toxic], [no distress], [appears at stated age] Derm: [warm], [dry] Head: [atraumatic], [normocephalic], [symmetric] Eyes: [EOMI], [no lid lag], [anicteric sclera] Mouth: [no lip lesion], [mucus membranes moist] Cardiovascular: [S1S2 reg], [no murmur], [positive posterior tibial pulse bilateral], Lungs: [CTA bilateral], [no rhonchi, no rales] , [no accessory muscle use] Abdominal: [soft], [ nontender to palpation], [no guarding], [no appreciable organomegaly] Ext: [no gross muscle atrophy], [no edema], [no contractures], [left upper extremity fistula] Neuro: [no focal neuro deficits] Psych: [Alert], [oriented], [appropriate affect] - Labs CBC & Chem 7: 02/17/20 06:41 07/22/19 06:41 Assessment and Plan Assessment: Intractable headache End-stage renal disease on hemodialysis COPD without exacerbation Hypothyroidism Possible migraine complicated. CT head shows white matter changes. Plans: Follow neurology consultation. Toradol or Fioricet as needed. Plans: Follow nephrology recommendations. Hemodialysis Monday schedule. Plans: Restart Singulair. Plans: Restart Synthroid. [Patient's headache has reappeared. Pain is currently not controlled with current medications. Neurology evaluation pending. Likely DC today if pain better improved this afternoon.]
[2019-07-23] MEDS: PANTOPRAZOLE 40 MG TABLET PO SCH (16:37)
[2019-07-23] MEDS: DOCUSATE 100 MG CAP PO SCH (16:37)
[2019-07-23] MEDS: LORATADINE 10 MG TAB PO SCH (16:37)
[2019-07-23] MEDS: FLUoxetine HCL 20 MG CAP PO SCH ×2 (16:37→20:09)
[2019-07-23] MEDS: MONTELUKAST 10 MG TAB PO SCH (20:09)
--- NOTE | 2019-07-23 21:18 | P.PN ---
Subjective Progress Note Date: 07/23/19 After patient was seen yesterday, patient started having recurrence of the pain, occurring every 5 minutes involving the same distribution. This started after the dialysis is completed. Patient was given some strong pain medications and the symptoms went away at night. It was felt that the medication probably is masking the symptoms. Patient continues to complain of intermittent headache over the right parietal region. We obtained the results of MRA of the carotids with and without contrast from 09/28/2018. It revealed prominent tortuosity due to the proximal right common carotid artery limiting its assessment. Otherwise the remainder of the carotid and vertebral arteries of the neck are widely patent. The vertebral arteries become diminutive at the V4 segment. Refer to MRA [place] for details. MRA of the brain from 09/28/2018 showed relatively smaller caliber to the poste rior circulation. The V4 segment right vertebral arteries particularly small in caliber, likely on a congenital basis. Correlate for any chronic symptoms of vertebrobasilar insufficiency. Bilateral origins to the posterior cerebral arteries. Bulbous 4 mm caliber to the basilar terminus could represent a mild fusiform aneurysm. Tiny 2 mm saccular aneurysm projecting medially from the cavernous segment right ICA. Patient's blood tests showed WBC 4.7 hemoglobin 10.0, platelets 117. Sodium and potassium are normal, BUN 58, creatinine 2.66. AST is mildly elevated 47, ALT 27. Objective - Vital Signs Vital signs: Vital Signs Temp 98.8 F 07/23/19 20:03 Pulse 68 07/23/19 20:03 Resp 12 07/23/19 20:03 BP 118/76 07/23/19 20:03 Pulse Ox 93 L 07/23/19 20:03 Intake & Output 07/23/19 07/23/19 07/24/19 06:59 18:59 06:59 Intake Total 1500 740 Output Total 300 300 Balance 1200 440 Intake: Intake, IV Titration 1200 Amount Sodium Chloride 0.9% 1, 1200 000 ml @ 75 mls/hr IV . [id number] Rx#:[id number] Oral 440 Hemodialysis 300 300 Output: Hemodialysis 300 300 Other: Voiding Method Toilet Toilet # Voids 1 2 # Bowel Movements 1 - Labs CBC & Chem 7: 07/24/19 06:36 07/22/19 06:41 Assessment and Plan Assessment: * 74-year-old female admitted with recurrent, transient, sharp ice pick headaches involving the right parietal region. Exact cause is uncertain. No evidence of occipital neuralgia or trigeminal neuralgia. ESR is normal with no evidence of temporal arteritis. * History of cerebral aneurysm. MRA head showed a 4 mm caliber to the basilar terminus could represent a mild fusiform aneurysm. Also showed tiny 2 mm saccular aneurysm projecting medially from the cavernous segment right ICA. Her headaches are not suggestive of aneurysmal headache. Patient's computed tomography scan of the head was normal. No meningeal signs. * End-stage renal disease, on hemodialysis Plan: * Lumbar puncture to look for xanthochromia, evidence of sentinel bleed. * Repeat MRA of the head without contrast to follow up on the aneurysms. * Tegretol 100 mg twice a day for neuralgic pain, if above workup is negative.
[2019-07-24] MEDS: METOCLOPRAMIDE 5 MG/ML 2 ML VIAL IVP SCH ×3 (00:31→12:49)
[2019-07-24] MEDS: LEVOTHYROXINE 112 MCG TAB PO SCH (06:18)
[2019-07-24 06:51] LABS: Mean Platelet Volume 8.1; Platelet Count 136 k/uL (150-450)
[2019-07-24 07:01] LABS: Prothrombin Time 10.3 sec (9.0-12.0)
[2019-07-24] MEDS: HEPARIN SODIUM,PORCINE 5,000 UNIT/ML 1 ML VIAL SQ SCH (07:51)
[2019-07-24] MEDS: ERGOCALCIFEROL 50,000 UNIT CAP PO SCH (08:00)
[2019-07-24] MEDS: MIDODRINE 5 MG TAB PO SCH ×2 (08:00→12:41)
[2019-07-24] MEDS: BUMETANIDE 1 MG TAB PO SCH (08:00)
[2019-07-24] MEDS: POTASSIUM CHLORIDE ER 20 MEQ TAB.ER PO SCH (08:00)
--- NOTE | 2019-07-24 09:17 | MR ---
EXAMINATION TYPE: MR angio head wo con DATE OF EXAM: 07/24/2019 COMPARISON: NONE HISTORY: Follow-up aneurysms.Cephalalgia, recurrent ESTEVES TECHNIQUE: Utilizing 3-D [id number] intracranial MRA of the [place] was performed. FINDINGS: The vertebrobasilar and carotid systems are patent. Posterior cerebral artery originates from the ant erior circulation. Left vertebral artery is dominant. There is mild prominence of the right MCA bifur cation which could representing 3 mm fusiform aneurysm. There is a 2 mm protuberance extending off th e medial margin of the cavernous segment of the right ICA compatible with a small aneurysm. There is a 2 mm prominence extending off the anterior communicating artery compatible with a small aneurysm. T here is a 1 mm protuberance extending off the lateral margin of the left cavernous segment ICA. IMPRESSION: 1. 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 2. There is a 3 mm right MCA fusiform dilation of the MCA trifurcation. 3. 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 4. Findings suspicious for a 1 mm aneurysm cavernous segment left ICA extending off the lateral wall. Best noted on axial source image 65.
[2019-07-24 10:10] VITALS: RESP 16
[2019-07-24 11:08] LABS: Glucose,CSF 53 mg/dL (40-70); Total Protein,CSF 38 mg/dL (12-60)
--- NOTE | 2019-07-24 12:19 | FL ---
PROCEDURE: Fluoroscopic guided Lumbar puncture. DATE: 07/24/2019 CLINICAL HISTORY: 74-year-old female with headache, referred for fluoroscopic guided lumbar puncture. COMPLICATIONS: None Total fluoroscopy time: 13 seconds. Total images: 1. SEDATION: Recorded by nursing. The patient and the patient's vital signs were monitored by qualified [facility] radiology personnel. TECHNIQUE: The procedure and potential risks were explained to patient and an informed consent was obtained with teach back. Site and side was verified. A time out was performed. The patient was placed prone on the fluoroscopy table and the L3-L4 level was localized and the skin was marked and was prepped and draped in the usual sterile fashion. Lidocaine was used for local anesthesia. Utilizing fluoroscopic guidance a 22-gauge spinal needle was placed through the skin and into the subarachnoid space. Approximately 9 mL of clear, colorless cerebral spinal fluid was obtained. The patient tolerated the procedure well and was sent back to the inpatient room in satisfactory cond ition. The fluid was sent to the lab for analysis. The estimated blood loss was minimal to none. The patient's condition was unchanged following the pr ocedure. IMPRESSION: Successful accumulation of 9 mL of clear CSF. Laboratory analysis pending.
--- NOTE | 2019-07-24 12:43 | P.PN ---
Subjective Progress Note Date: 07/24/19 Patient continues to have right posterior parietal headache intermittently. The medication helps, but once the medication veers off, the headache comes back. MRA of the brain revealed total of 4 possible aneurysm. 1) 2 mm right cavernous segment ICA aneurysm. 2) 3 mm right MCA fusiform dilation of the MCA trifurcation. 3) 2 mm aneurysm of the anterior communicating artery. 4) Findings suspicious for a 1 mm aneurysm cavernous segment left ICA extending off the lateral wall. I suspect the right MCA trifurcation aneurysm is probably producing symptoms of intermittent right-sided headache. There is no subarachnoid hemorrhage, but the headache could be related to vascular wall stretching/weakening. Patient had lumbar puncture performed, in which her glucose is 53, protein 38. Cell count pending. The spinal fluid was colorless and clear. We obtained the results of MRA of the carotids with and without contrast from 09/28/2018. It revealed prominent tortuosity due to the proximal right common carotid artery limiting its assessment. Otherwise the remainder of the carotid and vertebral arteries of the neck are widely patent. The vertebral arteries become diminutive at the V4 segment. Refer to MRA [place] for details. MRA of the brain from 09/28/2018 showed relatively smaller caliber to the posterior circulation. The V4 segment right vertebral arteries particularly small in caliber, likely on a congenital basis. Correlate for any chronic symptoms of vertebrobasilar insufficiency. Bilateral origins to the posterior cerebral arteries. Bulbous 4 mm caliber to the basilar terminus could represent a mild fusiform aneurysm. Tiny 2 mm saccular aneurysm projecting medially from the cavernous segment right ICA. Patient's blood tests showed WBC 4.7 hemoglobin 10.0, platelets 117. Sodium and potassium are normal, BUN 58, creatinine 2.66. AST is mildly elevated 47, ALT 27. Objective - Vital Signs Vital signs: Vital Signs Temp 97.8 F 07/24/19 07:45 Pulse 65 07/24/19 10:05 Resp 16 07/24/19 10:05 BP 144/87 07/24/19 10:05 Pulse Ox 97 07/24/19 10:05 Intake & Output 07/23/19 07/24/19 07/24/19 18:59 06:59 18:59 Intake Total 740 20 Output Total 300 Balance 440 20 Intake: Oral 440 20 Hemodialysis 300 Output: Hemodialysis 300 Other: Voiding Method Toilet # Voids 2 # Bowel Movements 1 - Exam Patient is laying in the bed, comfortable. Patient just his lumbar puncture therefore exam deferred. - Labs CBC & Chem 7: 07/24/19 06:36 07/22/19 06:41 Labs: Abnormal Lab Results - Last 24 Hours (Table) 07/24/19 Range/Units 06:36 Plt Count 136 L (150-450) k/uL Assessment and Plan Assessment: * 74-year-old female admitted with recurrent, transient, sharp ice pick headaches involving the right parietal region. Suspect headache due to vasc ular wall stretching/weakening. Repeat MRA of the brain revealed 4 aneurysms, as mentioned in the report earlier. The right MCA trifurcation aneurysm possibly symptomatic. No evidence of subarachnoid hemorrhage at this time. * End-stage renal disease, on hemodialysis Plan: * Lumbar puncture shows no evidence of subarachnoid hemorrhage at this time. CSF glucose 53, proteins 38, RBC 3, white cells 0. It is colorless and clear. * MRA of the brain revealed 2 more aneurysms. I suspect the right MCA trifurcation aneurysm is symptomatic due to muscular wall stretching/we akening. * Suggest urgent neurosurgical consultation. Patient probably will need a cerebral angiogram for official documentation and to assess the size of the cerebral aneurysm. She may need endovascular treatment. * Patient to be transferred to another facility where neurosurgery/neuro intervention facility available. * Discussed with family members and agree with the transfer.
[2019-07-24 13:30] LABS: Appearance,CSF Clear; CSF Tube Number 4
[2019-07-24 13:31] LABS: CSF Tube Volume 2.75
[2019-07-24 13:32] LABS: Nucleated Cells, CSF 0 u/L (0-5); Red Blood Cell,CSF 3 u/L (0-10)
--- NOTE | 2019-07-24 14:03 | P.PN ---
Subjective Progress Note Date: 07/24/19 Principal diagnosis: Intractable headache Patient was seen and examined. No acute events overnight. Patient continues to report right-sided stabbing knifelike headaches. Her headache is associated with blurry vision. Headaches have not improved. She denies any chest pain, s hortness of breath or palpitations. No nausea or vomiting. No fever or chills. Objective - Vital Signs Vital signs: Vital Signs Temp 97.8 F 07/24/19 07:45 Pulse 65 07/24/19 10:05 Resp 16 07/24/19 10:05 BP 144/87 07/24/19 10:05 Pulse Ox 97 07/24/19 10:05 Intake & Output 07/23/19 07/24/19 07/24/19 18:59 06:59 18:59 Intake Total 740 20 Output Total 300 Balance 440 20 Intake: Oral 440 20 Hemodialysis 300 Output: Hemodialysis 300 Other: Voiding Method Toilet # Voids 2 # Bowel Movements 1 - Exam General: [non toxic], [no distress], [appears at stated age] Derm: [warm], [dry] Head: [atraumatic], [normocephalic], [symmetric] Eyes: [EOMI], [no lid lag], [anicteric sclera] Mouth: [no lip lesion], [mucus membranes moist] Cardiovascular: [S1S2 reg], [no murmur], [positive posterior tibial pulse bilateral], Lungs: [CTA bilateral], [no rhonchi, no rales] , [no accessory muscle use] Abdominal: [soft], [ nontender to palpation], [no guarding], [no appreciable organomegaly] Ext: [no gross muscle atrophy], [no edema], [no contractures], [left upper extremity fistula] Neuro: [no focal neuro deficits] Psych: [Alert], [oriented], [appropriate affect] - Labs CBC & Chem 7: 07/24/19 06:36 07/22/19 06:41 Labs: Abnormal Lab Results - Last 24 Hours (Table) 07/24/19 Range/Units 06:36 Plt Count 136 L (150-450) k/uL Microbiology - Last 24 Hours (Table) 07/24/19 09:50 CSF Gram Stain - Preliminary Cerebral Spinal Fluid Assessment and Plan Assessment: Intractable headache End-stage renal disease on hemodialysis COPD without exacerbation Hypothyroidism Possible migraine complicated. Concerns for aneurysm. CT head shows white matter changes. Lumbar puncture done today, shows no RBC. 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 Plans: Neurology recommends transfer for neurosurgical evaluation for cerebral angiogram and possible endovascular intervention. Plans: Follow nephrology recommendations. Hemodialysis Monday schedule. Plans: Restart Singulair. Plans: Restart Synthroid. [Patient's headache has not improved. MRA head and neck shows new aneurysms as compared to previous MRI. Neurology recommends transfer to tertiary center for neurosurgical evaluation, cerebral angiogram and possible endovascular intervention. Patient is agreeable for [facility]. [facility] was called and agreeable to take patient. Plan was discussed with family at bedside.]
--- NOTE | 2019-07-24 15:22 | PN ---
PROGRESS NOTE Patient is seen for followup for end-stage renal disease. Patient is scheduled for dialysis tomorrow. She is being considered for transfer to either [facility] or [facility] as the head MRA showed brain aneurysms. Patient also just had a spinal tap this morning. PHYSICAL EXAMINATION: On examination, blood pressure was 144/87, heart rate 65 per minute, she is afebrile. Examination of the heart S1, S2. Examination of the lungs, bilateral breath sounds are heard. Abdomen is soft, nontender. Examination of the lower extremities shows the patient has chronic lymphedema. LABS: Show sodium of 137, potassium 3.7, creatinine 2.6 on 07/22. ASSESSMENT: 1. End-stage renal disease, patient was on home hemodialysis; however, she has switched to a conventional dialysis, scheduled for treatment tomorrow. She has an AV graft on the left arm. 2. Status post infiltration left arm AV graft, now improving. 3. Multiple brain aneurysms, being considered for transfer to a tertiary care center. 4. Hypotension, now improved. PLAN: Hemodialysis in a.m. MMODL / IJN: [id number] /
[2019-07-24] MEDS: PANTOPRAZOLE 40 MG TABLET PO SCH (16:13)
[2019-07-24] MEDS: DOCUSATE 100 MG CAP PO SCH (16:13)
[2019-07-24] MEDS: FLUoxetine HCL 20 MG CAP PO SCH (16:13)
[2019-07-24] MEDS: LORATADINE 10 MG TAB PO SCH (16:13)
[2019-07-24 17:54] VITALS: BP 127/76; PULSE 66; TEMP 98.8
--- NOTE | 2019-07-25 13:15 | CDI ---
Documentation Clarification Form Date: 07/25/19 From: Gabby Ramirez Phone: If you have a question about this query, please contact Myah Boudreaux, [employer] at [phone] between 8am and 5pm. Admit Date: 07/24/19 Discharge Date: 07/24/19 Patient Name: Margie Dallas Visit Number: [id number] ATTENTION: The Clinical Documentation Specialists (CDI) and [facility] Coding Staff appreciate your assistance in clarifying documentation. Please respond to the clarification below the line at the bottom and electronically sign. The CDI & [facility] Coding staff will review the response and follow-up if needed. Please note: Queries are made part of the Legal Health Record. If you have any questions, please contact the author of this message via ITS. Dear Dr. Azalia Ha, The diagnosis chronic respiratory failure was documented in the past medical history in the ED note, H&P, both consults, but the type is not documented. History/Risk Factors: cerebral aneuryms, HTN w ESRD on dialysis, chronic hypotension Clinical Indicators: O2 nasal cannula used Please clarify if the type of chronic respiratory failure was Hypoxic Hypercapnic Other, please specify Clinically unable to determine i did not document chronic respiratory failure MTDD
[2019-07-28] MEDS ORDERED: LEVOTHYROXINE 112 MCG TAB PO SCH (06:30)
--- NOTE | 2019-08-01 11:06 | CDI ---
Documentation Clarification Form Date: 07/25/19 From: Gabbyisabella Ramirez Phone: If you have a question about this query, please contact Myah Boudreaux, [employer] at [phone] between 8am and 5pm. Admit Date: 07/24/19 Discharge Date: 07/24/19 Patient Name: Margie Dallas Visit Number: [id number] ATTENTION: The Clinical Documentation Specialists (CDI) and [facility] Coding Staff appreciate your assistance in clarifying documentation. Please respond to the clarification below the line at the bottom and electronically sign. The CDI & [facility] Coding staff will review the response and follow-up if needed. Please note: Queries are made part of the Legal Health Record. If you have any questions, please contact the author of this message via ITS. Dear Dr. Vicente Armendariz, The diagnosis chronic respiratory failure was documented in the past medical history in the ED note, H&P, both consults, but the type is not documented. History/Risk Factors: cerebral aneuryms, HTN w ESRD on dialysis, chronic hypotension Clinical Indicators: O2 nasal cannula used Please clarify if the type of chronic respiratory failure was Hypoxic Hypercapnic Other, please specify Clinically unable to determine Unable to determine MTDD
== END 2019-07-24 18:54 | disposition short-term general hospital (02) | DRG 91 ==
LOC: EC 15:04 → 4SSUR 19:28 → OBSVTOIN 07-24 08:30
PROVIDERS: ADMIT Family Medicine; ATTEND Family Medicine
PROC: 5A1D70Z Performance of Urinary Filtration, Intermittent, Less than 6 Hours Per Day (ICD-10-PCS; principal; 2019-07-22)
PROC: 009U3ZX Drainage of Spinal Canal, Percutaneous Approach, Diagnostic (ICD-10-PCS; 2019-07-24)
DX: I67.1 Cerebral aneurysm, nonruptured (principal); N18.6 End stage renal disease; J96.10 Chronic respiratory failure, unspecified whether with hypoxia or hypercapnia; E87.2 Acidosis; G44.89 Other headache syndrome; I95.89 Other hypotension; D63.1 Anemia in chronic kidney disease; E83.9 Disorder of mineral metabolism, unspecified; E83.51 Hypocalcemia; E87.6 Hypokalemia; J84.10 Pulmonary fibrosis, unspecified; T50.2X5A Adverse effect of carbonic-anhydrase inhibitors, benzothiadiazides and other diuretics, initial encounter; E89.0 Postprocedural hypothyroidism; J44.9 Chronic obstructive pulmonary disease, unspecified; R40.2362 Coma scale, best motor response, obeys commands, at arrival to emergency department; R40.2142 Coma scale, eyes open, spontaneous, at arrival to emergency department; E55.9 Vitamin D deficiency, unspecified; K21.9 Gastro-esophageal reflux disease without esophagitis; R40.2252 Coma scale, best verbal response, oriented, at arrival to emergency department; M19.90 Unspecified osteoarthritis, unspecified site; M81.0 Age-related osteoporosis without current pathological fracture; Z99.81 Dependence on supplemental oxygen; Z79.51 Long term (current) use of inhaled steroids; Z79.890 Hormone replacement therapy; Z79.899 Other long term (current) drug therapy; Z99.2 Dependence on renal dialysis; Z87.442 Personal history of urinary calculi; Z87.440 Personal history of urinary (tract) infections; Z86.19 Personal history of other infectious and parasitic diseases; Z86.69 Personal history of other diseases of the nervous system and sense organs; Z98.84 Bariatric surgery status; Z87.01 Personal history of pneumonia (recurrent); Z90.710 Acquired absence of both cervix and uterus; Z90.49 Acquired absence of other specified parts of digestive tract; Z98.890 Other specified postprocedural states; Z88.1 Allergy status to other antibiotic agents; Z88.5 Allergy status to narcotic agent; Z88.2 Allergy status to sulfonamides; Z91.048 Other nonmedicinal substance allergy status; Z83.2 Family history of diseases of the blood and blood-forming organs and certain disorders involving the immune mechanism; Z80.51 Family history of malignant neoplasm of kidney; Z80.8 Family history of malignant neoplasm of other organs or systems
CPT/HCPCS: 36415; 62328; 70450; 70544; 80053; 82945; 84157; 85025; 85049; 85610; 85652; 87070; 87205; 89050; 90935; 96374; 96375; 99285

== ENCOUNTER 2019-12-06 16:21 | Inpatient (IN) | payer MEDICARE ==
[2019-12-06] MEDS ORDERED: fentaNYL (PF) 50 MCG/ML 2 ML AMP IVP STA (16:52)
[2019-12-06] MEDS ORDERED: fentaNYL (PF) 50 MCG/ML 2 ML AMP IM STA (17:41)
[2019-12-06 17:48] LABS: Appearance,Urine Turbid (Clear); Bacteria,Urine Many /hpf; Bilirubin,Urine Negative (Negative); Blood,Urine Moderate (Negative); Color,Urine Yellow; Glucose,Urine (UA) Negative (Negative); Ketones,Urine Negative (Negative); Leukocyte Esterase,Urine Large (Negative); Nitrite,Urine Negative (Negative); Protein,Urine 2+ (Negative); RBC,Urine 62 /hpf (0-5); Specific Gravity,Urine 1.014 (1.001-1.035); Urobilinogen,Urine <2.0 mg/dL (<2.0); WBC,Urine >182 /hpf (0-5)
--- NOTE | 2019-12-06 17:48 | ED ---
Fever HPI - General Chief Complaint: Fever Stated Complaint: fever/sent by clinic Time Seen by Provider: 12/06/19 16:30 Source: patient Mode of arrival: wheelchair Limitations: no limitations - History of Present Illness Initial Comments: Patient is a 74-year-old female with end-stage renal disease on hemodialysis, frequent urinary tract infections and nephrolithiasis who presents to emergency room with reported right flank pain, nausea, vomiting and fever. The patient went for dialysis today. She was febrile and therefore sent into the emergency room for evaluation. at bedside provides a history. He states that after dialysis on Monday she was feeling ill and had some nausea. She felt well on however today she began having right-sided flank pain with multiple episodes of vomiting. She has been able to eat and has held down some food. She continues to make urine. Denies dysuria, hematuria or difficulty voiding. Denies diarrhea, constipation, melenic stools or hematochezia. No cough or shortness of breath. She did not know she had fevers until was taken at dialysis. They did not complete her session. She sees Dr. Kincaid. Has been on dialysis for the past 9 months. States that she does not have fluid taken off during her dialysis sessions but will have fluid administered. No issues with congestive heart failure. Patient denies any chest pain or shortness of breath. No hematemesis. No other alleviating, precipitating or modifying factors - Related Data Home Medications Medication Instructions Recorded Confirmed Docusate [Colace] 200 mg PO DAILY@1500 08/23/18 12/06/19 FLUoxetine HCL [PROzac] 20 mg PO BID 08/23/18 12/06/19 Levothyroxine Sodium [Synthroid] 112 mcg PO MOTUWETHFRSA 08/23/18 12/06/19 Levothyroxine Sodium [Synthroid] 224 mcg PO MURO 08/23/18 12/06/19 Montelukast [Singulair] 10 mg PO HS 08/23/18 12/06/19 Omeprazole 40 mg PO DAILY 11/19/18 12/06/19 Ergocalciferol (Vitamin D2) 50,000 unit PO MOWEFR 01/31/19 12/06/19 [Vitamin D2] Bumetanide [BUMEX] 1 mg PO DAILY 07/21/19 12/06/19 Potassium Chloride ER [K-Dur 20] 20 meq PO BID 07/21/19 12/06/19 Calcium Acetate [PhosLo] 667 mg PO DAILY 07/22/19 12/06/19 Sodium Bicarbonate Tab 650 mg PO BID 07/22/19 12/06/19 traMADol HCL [Ultram] 50 mg PO TID PRN 07/22/19 12/06/19 Albuterol Nebulized [Ventolin 2.5 mg INHALATION RT-TID PRN 12/06/19 12/06/19 Nebulized] Albuterol Sulfate [Proair Hfa] 2 puff INHALATION RT-Q4H PRN 12/06/19 12/06/19 Docusate [Colace] 100 mg PO HS 12/06/19 12/06/19 Fluticasone/Salmeterol [Advair 1 puff INHALATION RT-BID PRN 12/06/19 12/06/19 100-50 Diskus] Lidocaine-Prilocaine Cream [Emla 1 applic TOPICAL MOWEFR 12/06/19 12/06/19 Cream 2.5%/2.5%] Loratadine 10 mg PO DAILY 12/06/19 12/06/19 Magnesium Chloride [Mag64] 64 mg PO DAILY 12/06/19 12/06/19 Mometasone Furoate [Asmanex] 2 puff INHALATION RT-HS PRN 12/06/19 12/06/19 metroNIDAZOLE [Flagyl] 250 mg PO DAILY 12/06/19 12/06/19 Trimethobenzamide [Tigan] 300 mg PO TID PRN 12/07/19 12/07/19 Allergies Allergy/AdvReac Type Severity Reaction Status Date / Time adhesive tape Allergy Rash/Hives Verified 12/06/19 16:30 Sulfa (Sulfonamide Allergy Itching Verified 12/06/19 16:30 Antibiotics) tetracycline Allergy Nausea & Verified 12/06/19 16:30 Vomiting codeine AdvReac Nausea Verified 12/06/19 16:30 epoetin beta [From Mircera] AdvReac Unknown Verified 12/07/19 14:07 Review of Systems ROS Statement: Those systems with pertinent positive or pertinent negative responses have been documented in the HPI. ROS Other: All systems not noted in ROS Statement are negative. Past Medical History Past Medical History: COPD, Osteoarthritis (OA), Renal Disease, Thyroid Disorder Additional Past Medical History / Comment(s): kidney stones and UTI,steroid injection October 2018 hx lymphedema, hx pulmonary fibrosis, hx graves,hx rt foot torn ligaments,hx kidney stones, hx osteoporosis,hypotension, chronic respiratory failure on 2 L nasal cannula at night & prn, vitamin D deficiency, hypocalcemia History of Any Multi-Drug Resistant Organisms: CRE Date of last positivie culture/infection: 10/16/[facility] MDRO Source:: Urine Past Surgical History: Bariatric Surgery Additional Past Surgical History / Comment(s): hx bariatric surgery-Kye En Y,lung biopsy,radioactive iodine-tx thyroid,rectal and bladder suspensions,vaginal surgery as a child,partha carpel tunnel,rt knee meniscus repair,D&C x3, left arm fistula 02/08/19 Past Anesthesia/Blood Transfusion Reactions: Previous Problems w/ Anesthesia, Postoperative Nausea & Vomiting (PONV) Additional Past Anesthesia/Blood Transfusion Reaction / Comment(s): decrease bp with anesthesia,no problems with prior blood transfusion Past Psychological History: No Psychological Hx Reported Smoking Status: Never smoker Past Alcohol Use History: None Reported Past Drug Use History: None Reported - Past Family History Father Family Medical History: Pulmonary Embolus Additional Family Medical History / Comment(s): . Mother Family Medical History: Cancer Additional Family Medical History / Comment(s): . Sister(s) Family Medical History: Cancer Additional Family Medical History / Comment(s): . Daughter(s) Additional Family Medical History / Comment(s): lymphedema in legs Brother(s) Family Medical History: Cancer Additional Family Medical History / Comment(s): skin cancer General Exam Limitations: no limitations General appearance: alert, in no apparent distress Head exam: Present: atraumatic, normocephalic, normal inspection Eye exam: Present: normal appearance, PERRL, EOMI. Absent: scleral icterus, conjunctival injection, periorbital swelling ENT exam: Present: normal exam, mucous membranes moist Neck exam: Present: normal inspection. Absent: tenderness, meningismus, lymphadenopathy Respiratory exam: Present: normal lung sounds bilaterally. Absent: respiratory distress, wheezes, rales, rhonchi, stridor Cardiovascular Exam: Present: regular rate, normal rhythm, normal heart sounds. Absent: systolic murmur, diastolic murmur, rubs, gallop, clicks GI/Abdominal exam: Present: soft, normal bowel sounds. Absent: distended, tenderness, guarding, rebound, rigid Extremities exam: Present: normal inspection, full ROM, normal capillary refill. Absent: tenderness, pedal edema, joint swelling, calf tenderness Back exam: Present: CVA tenderness (R) Neurological exam: Present: alert, oriented X3, CN II-XII intact Psychiatric exam: Present: normal affect, normal mood Skin exam: Present: warm, dry, intact, normal color. Absent: rash Course Vital Signs 12/06/19 12/06/19 12/06/19 16:26 17:36 18:00 Temperature 100.6 F H Pulse Rate 88 73 75 Respiratory 18 18 18 Rate Blood Pressure 109/68 108/68 133/78 O2 Sat by Pulse 100 99 100 Oximetry 12/06/19 20:28 Temperature 99.2 F Pulse Rate 75 Respiratory 20 Rate Blood Pressure 108/69 O2 Sat by Pulse 100 Oximetry Medical Decision Making - Medical Decision Making Of arrival the patient is placed in room 4. A thorough history and physical exam was performed. 12-lead EKG was performed. Patient is febrile therefore given a dose of Tylenol. Lab studies were drawn. Patient provided a urine sample which does demonstrate 62 red blood cells, greater than 182 white blood cells and many white blood cell clumps as well as bacteria. CT without contrast was performed which demonstrates severe right-sided hydronephrosis that is much worse than old exam. Mild renal atrophy. Fragmentation of the large left renal calculus compared to old. No signs of right-sided nephrolithiasis. I discussed results with the patient. I did recommend hospital admission for fever, UTI. Patient did agree. I did discuss the case with Dr. Acosta who accepted admission for the patient. The patient was a hard lab draw and therefore I did have to place and ultrasound-guided line. I will consult nephrology as the patient will need dialysis. Ultrasound pending. The patient was started on Rocephin. She did remain in stable condition awaiting a bed on the floor - Lab Data Result diagrams: 12/07/19 09:00 12/07/19 09:00 Lab Results 12/06/19 Range/Units 17:12 Urine Color Yellow Urine Appearance Turbid H (Clear) Urine pH 7.0 (5.0-8.0) Ur Specific [place] 1.014 (1.001-1.035) Urine Protein 2+ H (Negative) Urine Glucose (UA) Negative (Negative) Urine Ketones Negative (Negative) Urine Blood Moderate H (Negative) Urine Nitrite Negative (Negative) Urine Bilirubin Negative (Negative) Urine Urobilinogen <2.0 (<2.0) mg/dL Ur Leukocyte Esterase Large H (Negative) Urine RBC 62 H (0-5) /hpf Urine WBC >182 H (0-5) /hpf Urine WBC Clumps Many H (None) /hpf Urine Bacteria Many H (None) /hpf - EKG Data EKG Comments: EKG demonstrates a sinus rhythm with PACs. Rate of 79. TN 178. QRS 72. QTC of 408. No acute ST segment elevations or depressions concerning for ischemic changes Disposition Clinical Impression: Hydronephrosis, UTI (urinary tract infection), Fever, ESRD (end stage renal disease) on dialysis Disposition: ADMITTED IP TO THIS [facility] Condition: Stable Is patient prescribed a controlled substance at d/c from ED?: No Decision to Admit Reason: Admit from EC Decision Date: 12/06/19 Decision Time: 18:45
[2019-12-06] MEDS ORDERED: ACETAMINOPHEN TAB 325 MG TAB PO STA (17:56)
--- NOTE | 2019-12-06 18:23 | CT ---
EXAMINATION TYPE: CT abdomen pelvis wo con DATE OF EXAM: 12/06/2019 COMPARISON: 11/14/2018 HISTORY: flank pain, nausea, vomiting, fever. recent UTI. CT DLP: 372.9 mGycm Automated exposure control for dose reduction was used. Multiple axial sections were obtained from the diaphragm to the floor the pelvis without contrast. There is mild subsegmental atelectasis at the lung bases. Heart size is normal. There is no pericardi al effusion. Liver shows no focal defect. Spleen is intact. There is no pleural effusion. There are n umerous surgical clips around the stomach apparently from bariatric surgery. There are clips apparent ly from cholecystectomy. There is no evidence of pancreatic mass. There is no adrenal mass. There is severe right-sided hydronephrosis. There is mild renal atrophy. There is no evidence of obst ruction on the left side. There is 1 cm calculus lower pole left kidney. There is irregular 1 cm calc ulus upper pole posterior left kidney. There is no retroperitoneal adenopathy. Abdominal aorta is ath eromatous. I see no evidence of free air. There are multiple surgical clips in the bowel in the pelvi s. Bladder distends smoothly. There is no ascites. Lumbar spine is intact. Bony pelvis is intact. IMPRESSION: There is severe right-sided hydronephrosis that is much worse than old exam. There is mild renal atro phy. There is fragmentation of the large left renal calculus compared to old exam. Left renal calculi appear decreased in volume compared to old exam. Extensive abdominal intestinal surgery. No definite sign of a bowel obstruction.
[2019-12-06] MEDS ORDERED: cefTRIAXone IN SWFI 1,000 MG/10 ML SYRINGE IVP STA (18:26)
[2019-12-06] MEDS ORDERED: NALOXONE 0.4 MG/ML 1 ML VIAL IV PRN (18:45)
[2019-12-06] MEDS ORDERED: ACETAMINOPHEN TAB 325 MG TAB PO PRN (18:45)
[2019-12-06 19:16] LABS: Basophils % (A) 1 %; Eosinophils # (A) 0.1 k/uL (0-0.7); Eosinophils % (A) 1 %; HCT 33.2 % (34.0-46.0); HGB 9.9 gm/dL (11.4-16.0); Hypochromasia Moderate; Lymphocytes # (A) 1.2 k/uL (1.0-4.8); Lymphocytes % (A) 17 %; MCH 31.3 pg (25.0-35.0); MCHC 29.8 g/dL (31.0-37.0); Macrocytosis Slight; Mean Platelet Volume 7.8; Monocytes # (A) 0.7 k/uL (0-1.0); Monocytes % (A) 10 %; Neutrophils # (A) 5.1 k/uL (1.3-7.7); Neutrophils % (A) 70 %; Platelet Count 115 k/uL (150-450); RBC 3.16 m/uL (3.80-5.40); RDW 13.3 % (11.5-15.5); WBC 7.2 k/uL (3.8-10.6)
[2019-12-06 19:33] LABS: Partial Thromboplastin Time 23.7 sec (22.0-30.0); Prothrombin Time 10.1 sec (9.0-12.0)
[2019-12-06 20:53] LABS: Albumin 3.1 g/dL (3.5-5.0); Calcium 7.9 mg/dL (8.4-10.2); Potassium 4.1 mmol/L (3.5-5.1); Total Bilirubin 0.4 mg/dL (0.2-1.3); Total Protein 5.5 g/dL (6.3-8.2)
[2019-12-06] MEDS ORDERED: SYMBICORT 80-4.5 MCG INHALER INHALATION PRN (21:07)
[2019-12-06] MEDS ORDERED: FLUTICASONE 110 MCG INHALER INHALATION PRN (21:07)
[2019-12-06] MEDS ORDERED: ALBUTEROL NEBULIZED 2.5 MG/3 ML INHALATION PRN (21:07)
--- NOTE | 2019-12-06 21:09 | P.HPIM ---
History of Present Illness H&P Date: 12/06/19 The patient is a 74-year-old female with a PMH of chronic UTIs, multiple kidney stones requiring nephrostomy tubes, end-stage renal disease on hemodialysis (initiated 9 months ago), chronic lower extremity lymphedema, COPD, hypothyroidism, and pulmonary fibrosis who presented to the ED with complaints of right flank pain, nausea and vomiting. The patient notes that her symptoms started initially on Monday morning while she was undergoing hemodialysis. She reports throwing up 4 times while receiving hemodialysis, nonbloody and subsequently throwing up 2-3 times at home the following night. She was then okay throughout the following day but then again developed nausea and vomiting on evening with 5-6 episodes of nonbloody and nonbilious emesis. The patient presented for dialysis earlier today though was sent to the ED after she was noted to be febrile. The patient reports ongoing right-sided flank pain, nonradiating, with no alleviating or exacerbating features. She also reports feeling weak and occasionally lightheaded when she tries to stand up. She denied fever, or chills. She reported her urine appearing white and frothy but denied dysuria, hematuria, urinary urgency or frequency. Denied diarrhea, chest pain, shortness of breath. Reports a nonproductive cough for the last one week which she attributes to seasonal allergies. In the emergency room, the patient was febrile at 100.6F with BP 109/68, pulse 88, with SpO2 100% on room air. CT abdomen and pelvis without contrast revealed severe right-sided hydronephrosis, worse from prior exam with multiple left renal calculi. Laboratory evaluation revealed a UA consistent with UTI, WBC count 7.1, hemoglobin 9.9, platelets 115, and TSH 0.568. Review of Systems Pertinent positives and negatives as discussed in HPI, a complete review of systems was performed and all other systems are negative. Past Medical History Past Medical History: COPD, Osteoarthritis (OA), Renal Disease, Thyroid Disorder Additional Past Medical History / Comment(s): kidney stones and UTI,steroid injection October 2018 hx lymphedema, hx pulmonary fibrosis, hx graves,hx rt foot torn ligaments,hx kidney stones, hx osteoporosis,hypotension, chronic respiratory failure on 2 L nasal cannula at night & prn, vitamin D deficiency, hypocalcemia History of Any Multi-Drug Resistant Organisms: CRE Date of last positivie culture/infection: 10[facility]16[facility] Source:: Urine Past Surgical History: Bariatric Surgery Additional Past Surgical History / Comment(s): hx bariatric surgery-Kye En Y,lung biopsy,radioactive iodine-tx thyroid,rectal and bladder suspensions,vaginal surgery as a child,partha carpel tunnel,rt knee meniscus repair,D&C x3, left arm fistula 02/08/19 Past Anesthesia/Blood Transfusion Reactions: Previous Problems w/ Anesthesia, Postoperative Nausea & Vomiting (PONV) Additional Past Anesthesia/Blood Transfusion Reaction / Comment(s): decrease bp with anesthesia,no problems with prior blood transfusion Past Psychological History: No Psychological Hx Reported Smoking Status: Never smoker Past Alcohol Use History: None Reported Past Drug Use History: None Reported - Past Family History Father Family Medical History: Pulmonary Embolus Additional Family Medical History / Comment(s): . Mother Family Medical History: Cancer Additional Family Medical History / Comment(s): . Sister(s) Family Medical History: Cancer Additional Family Medical History / Comment(s): . Daughter(s) Additional Family Medical History / Comment(s): lymphedema in legs Brother(s) Family Medical History: Cancer Additional Family Medical History / Comment(s): skin cancer Medications and Allergies Home Medications Medication Instructions Recorded Confirmed Type Docusate [Colace] 200 mg PO DAILY@1500 08/23/18 12/06/19 History FLUoxetine HCL [PROzac] 20 mg PO BID 08/23/18 12/06/19 History Levothyroxine Sodium [Synthroid] 112 mcg PO MOTUWETHFRSA 08/23/18 12/06/19 History Levothyroxine Sodium [Synthroid] 224 mcg PO MURO 08/23/18 12/06/19 History Montelukast [Singulair] 10 mg PO HS 08/23/18 12/06/19 History Omeprazole 40 mg PO DAILY 11/19/18 12/06/19 History Ergocalciferol (Vitamin D2) 50,000 unit PO MOWEFR 01/31/19 12/06/19 History [Vitamin D2] Bumetanide [BUMEX] 1 mg PO DAILY 07/21/19 12/06/19 History Potassium Chloride ER [K-Dur 20] 20 meq PO BID 07/21/19 12/06/19 History Calcium Acetate [PhosLo] 667 mg PO DAILY 07/22/19 12/06/19 History Sodium Bicarbonate Tab 650 mg PO BID 07/22/19 12/06/19 History traMADol HCL [Ultram] 50 mg PO TID PRN 07/22/19 12/06/19 History Albuterol Nebulized [Ventolin 2.5 mg INHALATION RT-TID PRN 12/06/19 12/06/19 History Nebulized] Albuterol Sulfate [Proair Hfa] 2 puff INHALATION RT-Q4H PRN 12/06/19 12/06/19 History Docusate [Colace] 100 mg PO HS 12/06/19 12/06/19 History Fluticasone/Salmeterol [Advair 1 puff INHALATION RT-BID PRN 12/06/19 12/06/19 History 100-50 Diskus] Lidocaine-Prilocaine Cream [Emla 1 applic TOPICAL MOWEFR 12/06/19 12/06/19 History Cream 2.5%/2.5%] Loratadine 10 mg PO DAILY 12/06/19 12/06/19 History Magnesium Chloride [Mag64] 64 mg PO DAILY 12/06/19 12/06/19 History Mometasone Furoate [Asmanex] 2 puff INHALATION RT-HS PRN 12/06/19 12/06/19 History metroNIDAZOLE [Flagyl] 250 mg PO DAILY 12/06/19 12/06/19 History Allergies Allergy/AdvReac Type Severity Reaction Status Date / Time adhesive tape Allergy Rash/Hives Verified 12/06/19 16:30 Sulfa (Sulfonamide Allergy Itching Verified 12/06/19 16:30 Antibiotics) tetracycline Allergy Nausea & Verified 12/06/19 16:30 Vomiting codeine AdvReac Nausea Verified 12/06/19 16:30 Physical Exam Vitals: Vital Signs Temp Pulse Resp BP Pulse Ox 12/06/19 20:28 99.2 F 75 20 108/69 100 12/06/19 18:00 75 18 133/78 100 12/06/19 17:36 73 18 108/68 99 12/06/19 16:26 100.6 F H 88 18 109/68 100 Intake and Output 12/06/19 12/06/19 12/06/19 06:59 14:59 22:59 Other: Weight 56.245 kg General: non toxic, no distress, appears at stated age, normal weight Derm: no unusual rashes/lesions no unusual ecchymoses, warm, dry Head: atraumatic, normocephalic, symmetric Eyes: EOMI, no lid lag, anicteric sclera, pupils equal round reactive to light ENT: Nose and ears atraumatic, no thrush, no pharyngeal erythema Neck: No thyromegaly, no cervical lymphadenopathy, trachea midline, supple Mouth: no lip lesion, mucus membranes moist Cardiovascular: S1S2 reg, no murmur, positive posterior tibial pulse bilateral, partha 2+ LE non-pitting edema, capillary refill less than 2 seconds Lungs: CTA bilateral, no rhonchi, no rales , no accessory muscle use Abdominal: soft, R CVA tenderness, no guarding, no appreciable organomegaly, normal bowel sounds Ext: no gross muscle atrophy, muscle strength 5 out of 5 in all 4 extremities grossly, no contractures, Neuro: CN II-XI grossly intact, light touch intact all 4 extremities, finger to nose within normal limits, Psych: Alert, oriented, appropriate affect Results CBC & Chem 7: 12/06/19 19:00 Labs: Abnormal Lab Results - Last 24 Hours (Table) 12/06/19 12/06/19 12/06/19 Range/Units 17:12 19:00 19:00 RBC 3.16 L (3.80-5.40) m/uL Hgb 9.9 L (11.4-16.0) gm/dL Hct 33.2 L (34.0-46.0) % MCV 105.0 H (80.0-100.0) fL MCHC 29.8 L (31.0-37.0) g/dL Plt Count 115 L (150-450) k/uL Plasma Lactic Acid Klever <0.5 L (0.7-2.0) mmol/L Urine Appearance Turbid H (Clear) Urine Protein 2+ H (Negative) Urine Blood Moderate H (Negative) Ur Leukocyte Esterase Large H (Negative) Urine RBC 62 H (0-5) /hpf Urine WBC >182 H (0-5) /hpf Urine WBC Clumps Many H (None) /hpf Urine Bacteria Many H (None) /hpf Assessment and Plan Plan: Acute pyelonephritis -Continue with ceftriaxone -Follow up urine and blood cultures -Consult urology due to significant hydronephrosis and nephrolithiasis -Gentle hydration -Pain control End-stage renal disease on hemodialysis -Consult nephrology for resumption of dialysis -Monitor electrolytes Thrombocytopenia -Chronic, likely due to ESRD -Monitor for now Chronic conditions: COPD, Hypothyroidism -C/w home meds DVT prophylaxis -IPCDs The patient is admitted with an anticipated greater than 2 midnight stay for evaluation of pyelonephritis CODE STATUS: Full Code Discussed with: Patient, Anticipated discharge date: 3-[address]: Home A total of 40 minutes was spent on the care of this complex patient more than 50% of the time was spent in counseling and care coordination.
[2019-12-06] MEDS: SODIUM CHLORIDE 0.9% 1,000 ML IV SCH (23:59)
[2019-12-07] MEDS: LEVOTHYROXINE 112 MCG TAB PO SCH (05:09)
[2019-12-07] MEDS: SODIUM BICARBONATE TAB 650 MG TAB PO SCH ×2 (08:38→20:21)
[2019-12-07] MEDS: FLUoxetine HCL 20 MG CAP PO SCH ×3 (08:38→20:21)
[2019-12-07] MEDS: CALCIUM ACETATE 667 MG TAB PO SCH (08:38)
[2019-12-07] MEDS: traMADol 50 MG TAB PO PRN ×2 (08:39→14:09)
[2019-12-07] MEDS: BUMETANIDE 1 MG TAB PO SCH (08:39)
[2019-12-07] MEDS: POTASSIUM CHLORIDE ER 20 MEQ TAB.ER PO SCH ×2 (08:39→20:21)
[2019-12-07] MEDS ORDERED: MAGNESIUM CHLORIDE 64 MG PO SCH (09:00)
--- NOTE | 2019-12-07 09:10 | P.NPCON ---
History of Present Illness - Reason for Consult end stage renal disease - Chief Complaint ESRD with right hydronephrosis and urinary tract infection - History of Present Illness This is a 74-year-old female with ESRD secondary to chronic kidney stones, right-sided hydronephrosis, on dialysis since January 2019. She is on Monday dialysis schedule. She's been having abdominal pain on the right side on the right flank associated with nausea vomiting for the last 3-4 days. She was unable to be dialyzed yesterday Monday came to the emergency room and was admitted. She had low-grade temperature of 101. She was not on any antibiotics at the time of this admission. She does make loss of urine and has no dysuria or frequency. Her kidney stone is deemed to be from post-bariatric surgery she had a row and why surgery. She is also known with Graves' disease, pulmonary fibrosis. She does become hypotensive during dialysis. She is on a 3 hour dialysis schedule. Past Medical History Past Medical History: COPD, Deep Vein Thrombosis (DVT), Osteoarthritis (OA), Renal Disease, Thyroid Disorder Additional Past Medical History / Comment(s): kidney stones and UTI,steroid injection October 2018 hx lymphedema, hx pulmonary fibrosis, hx graves,hx rt foot torn ligaments,hx kidney stones, hx osteoporosis,hypotension, chronic respiratory failure on 2 L nasal cannula at night & prn, vitamin D deficiency, hypocalcemia, 4 brain anurysms, blood clots in left arm graft History of Any Multi-Drug Resistant Organisms: CRE Date of last positivie culture/infection: 10/16/18 MDRO-CRE PER [facility] NOT [facility] MDRO Source:: Urine Past Surgical History: Bariatric Surgery Additional Past Surgical History / Comment(s): hx bariatric surgery-Kye En Y,lung biopsy,radioactive iodine-tx thyroid,rectal and bladder suspensions,vaginal surgery as a child,partha carpel tunnel,rt knee meniscus repai r,D&C x3, left arm graft 02/08/19, blood clot removal from graft Past Anesthesia/Blood Transfusion Reactions: Previous Problems w/ Anesthesia, Postoperative Nausea & Vomiting (PONV) Additional Past Anesthesia/Blood Transfusion Reaction / Comment(s): decrease bp with anesthesia,no problems with prior blood transfusion Past Psychological History: No Psychological Hx Reported Smoking Status: Never smoker Past Alcohol Use History: None Reported Past Drug Use History: None Reported - Past Family History Father Family Medical History: Pulmonary Embolus Additional Family Medical History / Comment(s): . Mother Family Medical History: Cancer Additional Family Medical History / Comment(s): . Sister(s) Family Medical History: Cancer Additional Family Medical History / Comment(s): . Daughter(s) Additional Family Medical History / Comment(s): lymphedema in legs Brother(s) Family Medical History: Cancer Additional Family Medical History / Comment(s): skin cancer Medications and Allergies Home Medications Medication Instructions Recorded Confirmed Type Docusate [Colace] 200 mg PO DAILY@1500 08/23/18 12/06/19 History FLUoxetine HCL [PROzac] 20 mg PO BID 08/23/18 12/06/19 History Levothyroxine Sodium [Synthroid] 112 mcg PO MOTUWETHFRSA 08/23/18 12/06/19 History Levothyroxine Sodium [Synthroid] 224 mcg PO MURO 08/23/18 12/06/19 History Montelukast [Singulair] 10 mg PO HS 08/23/18 12/06/19 History Omeprazole 40 mg PO DAILY 11/19/18 12/06/19 History Ergocalciferol (Vitamin D2) 50,000 unit PO MOWEFR 01/31/19 12/06/19 History [Vitamin D2] Bumetanide [BUMEX] 1 mg PO DAILY 07/21/19 12/06/19 History Potassium Chloride ER [K-Dur 20] 20 meq PO BID 07/21/19 12/06/19 History Calcium Acetate [PhosLo] 667 mg PO DAILY 07/22/19 12/06/19 History Sodium Bicarbonate Tab 650 mg PO BID 07/22/19 12/06/19 History traMADol HCL [Ultram] 50 mg PO TID PRN 07/22/19 12/06/19 History Albuterol Nebulized [Ventolin 2.5 mg INHALATION RT-TID PRN 12/06/19 12/06/19 History Nebulized] Albuterol Sulfate [Proair Hfa] 2 puff INHALATION RT-Q4H PRN 12/06/19 12/06/19 History Docusate [Colace] 100 mg PO HS 12/06/19 12/06/19 History Fluticasone/Salmeterol [Advair 1 puff INHALATION RT-BID PRN 12/06/19 12/06/19 History 100-50 Diskus] Lidocaine-Prilocaine Cream [Emla 1 applic TOPICAL MOWEFR 12/06/19 12/06/19 History Cream 2.5%/2.5%] Loratadine 10 mg PO DAILY 12/06/19 12/06/19 History Magnesium Chloride [Mag64] 64 mg PO DAILY 12/06/19 12/06/19 History Mometasone Furoate [Asmanex] 2 puff INHALATION RT-HS PRN 12/06/19 12/06/19 History metroNIDAZOLE [Flagyl] 250 mg PO DAILY 12/06/19 12/06/19 History Allergies Allergy/AdvReac Type Severity Reaction Status Date / Time adhesive tape Allergy Rash/Hives Verified 12/06/19 16:30 Sulfa (Sulfonamide Allergy Itching Verified 12/06/19 16:30 Antibiotics) tetracycline Allergy Nausea & Verified 12/06/19 16:30 Vomiting codeine AdvReac Nausea Verified 12/06/19 16:30 Physical Exam Vitals: Vital Signs Temp Pulse Pulse Resp BP BP Pulse Ox 12/07/19 08:47 102/65 12/07/19 08:42 99/65 12/07/19 07:00 98.3 F 68 20 89/57 97 12/07/19 04:04 17 12/07/19 02:14 97.7 F 69 96/59 96 12/06/19 23:59 17 12/06/19 21:59 17 12/06/19 21:28 98.6 F 67 112/66 98 12/06/19 20:28 99.2 F 75 20 108/69 100 12/06/19 18:00 75 18 133/78 100 12/06/19 17:36 73 18 108/68 99 12/06/19 16:26 100.6 F H 88 18 109/68 100 Intake and Output 12/06/19 12/07/19 12/07/19 22:59 06:59 14:59 Other: Voiding Method Toilet Toilet # Voids 1 1 Weight 56.245 kg Exam she is somewhat of a small built female awake alert cheerful HEENT exam no JVP neck is supple no facial asymmetry Lungs are clear to auscultation good air entry Heart sounds are unremarkable for any murmur rub gallop Abdomen soft nontender no renal angle tenderness Extremity exam reveals no edema Neurologically awake alert oriented cheerful Results - Lab Results Most recent lab results Calcium 7.9 mg/dL (8.4-10.2) L 12/06/19 19:00 12/06/19 19:00 12/06/19 19:00 Assessment and Plan Assessment: Impression 1. ESRD on dialysis since January 2019 with a left forearm graft Monday for 3 hours with no fluid taken off as she has significant urine output. 2. Admitted with right flank pain. Computed tomography scan shows worsening of right hydronephrosis. Urine culture is pending possible urinary tract i nfection and pyelonephritis. 3. Recurrent kidney stone post-bariatric surgery Kye-en-Y. Computed tomography scan shows a left-sided kidney stone and right hydronephrosis which is more severe 4. Anemia off ESRD hemoglobin is 9.9 nearly at target Recommendation 1. Will dialyze her today for 3 hours no fluid taken off. 2. Urine cultures are pending previously she had E. coli and Enterobacter she is currently on ceftriaxone which should be adequate until we have more information regarding the culture and sensitivity 3. She can be discharged if she is afebrile by tomorrow and continued on appropriate antibiotics. 4. Urology needs to see if there is any other possible surgical intervention for her hydronephrosis. 5. Kidney stones need to be worked up if it has not been done in the past. In the meantime she should drink lots of water 6. Start darbepoetin 40 g subcu every week
[2019-12-07 10:22] LABS: HCT 27.4 % (34.0-46.0); HGB 8.6 gm/dL (11.4-16.0); MCH 31.9 pg (25.0-35.0); MCHC 31.2 g/dL (31.0-37.0); MCV 102.3 fL (80.0-100.0); Macrocytosis Slight; Mean Platelet Volume 8.4; Platelet Count 110 k/uL (150-450); RBC 2.68 m/uL (3.80-5.40); RDW 13.4 % (11.5-15.5); WBC 5.4 k/uL (3.8-10.6)
[2019-12-07 10:29] LABS: Calcium 7.7 mg/dL (8.4-10.2); Magnesium 1.8 mg/dL (1.6-2.3); Potassium 4.3 mmol/L (3.5-5.1)
[2019-12-07] MEDS ORDERED: TRIMETHOBENZAMIDE 300 MG CAP PO PRN (13:27)
[2019-12-07] MEDS: DARBEPOETIN ALFA 40 MCG/0.4 ML SYRINGE SQ SCH ×2 (14:00→14:52)
--- NOTE | 2019-12-07 14:21 | P.PN ---
Subjective Progress Note Date: 12/07/19 Principal diagnosis: Flank pain Patient was seen and examined. No acute events overnight. Patient reports right-sided flank pain. She denies any urinary frequency or dysuria. Patient states that she is making plenty of urine. She denies any fever or chills. She denies any chest pain, shortness of breath or palpitations. No nausea or vomiting. Objective - Vital Signs Vital signs: Vital Signs Temp 98.3 F 12/07/19 07:00 Pulse 68 12/07/19 07:00 Resp 20 12/07/19 07:00 BP 102/65 12/07/19 08:47 Pulse Ox 97 12/07/19 07:00 Intake & Output 12/06/19 12/07/19 12/07/19 18:59 06:59 18:59 Intake Total 200 Balance 200 Weight 56.245 kg 56.245 kg Intake: Oral 200 Other: Voiding Method Toilet # Voids 1 - Exam General: [non toxic], [no distress], [appears at stated age] Derm: [warm], [dry] Head: [atraumatic], [normocephalic], [symmetric] Eyes: [EOMI], [no lid lag], [anicteric sclera] Mouth: [no lip lesion], [mucus membranes moist] Cardiovascular: [S1S2 reg], [no murmur], [positive posterior tibial pulse bilateral], Lungs: [CTA bilateral], [no rhonchi, no rales] , [no accessory muscle use] Abdominal: [soft], [ nontender to palpation], [no guarding], [no appreciable organomegaly], right CVA tenderness Ext: [no gross muscle atrophy], [1+ nonpitting bilateral lower extremity edema], [no contractures] Neuro: [no focal neuro deficits] Psych: [Alert], [oriented], [appropriate affect] - Labs CBC & Chem 7: 12/07/19 09:00 12/07/19 09:00 Labs: Abnormal Lab Results - Last 24 Hours (Table) 12/06/19 12/06/19 12/06/19 Range/Units 17:12 19:00 19:00 RBC 3.16 L (3.80-5.40) m/uL Hgb 9.9 L (11.4-16.0) gm/dL Hct 33.2 L (34.0-46.0) % MCV 105.0 H (80.0-100.0) fL MCHC 29.8 L (31.0-37.0) g/dL Plt Count 115 L (150-450) k/uL Sodium (137-145) mmol/L Chloride (98-107) mmol/L Carbon Dioxide (22-30) mmol/L BUN (7-17) mg/dL Creatinine (0.52-1.04) mg/dL Glucose (74-99) mg/dL Plasma Lactic Acid Klever <0.5 L (0.7-2.0) mmol/L Calcium (8.4-10.2) mg/dL Alkaline Phosphatase (38-126) U/L Total Protein (6.3-8.2) g/dL Albumin (3.5-5.0) g/dL Urine Appearance Turbid H (Clear) Urine Protein 2+ H (Negative) Urine Blood Moderate H (Negative) Ur Leukocyte Esterase Large H (Negative) Urine RBC 62 H (0-5) /hpf Urine WBC >182 H (0-5) /hpf Urine WBC Clumps Many H (None) /hpf Urine Bacteria Many H (None) /hpf 12/06/19 12/07/19 12/07/19 Range/Units 19:00 09:00 09:00 RBC 2.68 L (3.80-5.40) m/uL Hgb 8.6 L (11.4-16.0) gm/dL Hct 27.4 L (34.0-46.0) % MCV 102.3 H (80.0-100.0) fL MCHC (31.0-37.0) g/dL Plt Count 110 L (150-450) k/uL Sodium 133 L 135 L (137-145) mmol/L Chloride 108 H (98-107) mmol/L Carbon Dioxide 18 L 20 L (22-30) mmol/L BUN 36 H 37 H (7-17) mg/dL Creatinine 2.25 H 2.24 H (0.52-1.04) mg/dL Glucose 119 H 114 H (74-99) mg/dL Plasma Lactic Acid Klever (0.7-2.0) mmol/L Calcium 7.9 L 7.7 L (8.4-10.2) mg/dL Alkaline Phosphatase 168 H (38-126) U/L Total Protein 5.5 L (6.3-8.2) g/dL Albumin 3.1 L (3.5-5.0) g/dL Urine Appearance (Clear) Urine Protein (Negative) Urine Blood (Negative) Ur Leukocyte Esterase (Negative) Urine RBC (0-5) /hpf Urine WBC (0-5) /hpf Urine WBC Clumps (None) /hpf Urine Bacteria (None) /hpf Microbiology - Last 24 Hours (Table) 12/06/19 19:00 Blood Culture - Final Blood 12/06/19 17:12 Urine Culture - Preliminary Urine,Voided Assessment and Plan Assessment: Pyelonephritis with gram-negative bacteremia Hydronephrosis ESRD on hemodialysis COPD Hypothyroidism Patient did not meet sepsis criteria on admission. Urinalysis positive for leukocyte esterase. CT abdomen and pelvis showed right-sided hydronephrosis. Blood cultures positive gram-negative bacilli as discussed with nursing. Continue Rocephin. Follow blood and urine cultures. Tylenol as needed for fever. Follow ID consultation. We will consult urology for recommendations on findings of hydronephrosis on CT. Nephrology will be consulted to resume her hemodialysis schedule. Continue calcium acetate. Continue Bumex. Continue Aranesp. Continue sodium bicarb. Albuterol neb as needed for shortness of breath and wheezing. Resume home medication of Symbicort, fluticasone and Singulair. Restart Synthroid for history of hypothyroidism. [Patient admitted for pyelonephritis. Found to have bacteremia. She is pending clinical improvement. Likely DC in 2-3 days.]
[2019-12-07] MEDS: SODIUM CHLORIDE 0.9% 1,000 ML IV SCH (16:32)
[2019-12-07] MEDS: DOCUSATE 100 MG CAP PO SCH ×2 (16:48→20:22)
[2019-12-07] MEDS: MONTELUKAST 10 MG TAB PO SCH (20:20)
--- NOTE | 2019-12-07 23:49 | P.CONS ---
History of Present Illness - Reason for Consult Consult date: 12/07/19 Gram-negative bacteremia Requesting physician: Azalia Ha - Chief Complaint Not feeling well and right flank pain x few days - History of Present Illness Patient is a 74-year-old female with a past medical history significant for end-stage renal disease on hemodialysis Monday through a left arm AV fistula in this patient also have a history of nephrolithiasis and recurrent UTI patient has not been feeling well since her last dialysis on Monday morning for generalized not feeling well be complaining of pain to the right flank area which has been mostly dull aching at times sharp 7-8 out of 10 and no radiation with associated nausea and vomiting, when she went for her dialysis on Monday that is yesterday she was noticed to be febrile and the patient was advised to go to the hospital on arrival to the ER the patient to have a fever of 100.6. She did have a normal white count and UA was positive did have a CT of abdominal pelvis CT shows worsening hydronephrosis on the right side patient was diagnosed with right-sided pyelonephritis she was started on Rocephin 1 g daily of blood cultures given a positive with gram-negative bacilli that prompted this infection disease consultation Review of Systems Positive point has been mentioned in the HPI rest of the systems are negative Past Medical History Past Medical History: COPD, Deep Vein Thrombosis (DVT), Osteoarthritis (OA), Renal Disease, Thyroid Disorder Additional Past Medical History / Comment(s): kidney stones and UTI,steroid injection October 2018 hx lymphedema, hx pulmonary fibrosis, hx graves,hx rt foot torn ligaments,hx kidney stones, hx osteoporosis,hypotension, chronic respiratory failure on 2 L nasal cannula at night & prn, vitamin D deficiency, hypocalcemia, 4 brain anurysms, blood clots in left arm graft 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 MDRO Source:: Urine Past Surgical History: Bariatric Surgery Additional Past Surgical History / Comment(s): hx bariatric surgery-Kye En Y,lung biopsy,radioactive iodine-tx thyroid,rectal and bladder suspensions,vaginal surgery as a child,partha carpel tunnel,rt knee meniscus repair,D&C x3, left arm graft 02/08/19, blood clot removal from graft Past Anesthesia/Blood Transfusion Reactions: Previous Problems w/ Anesthesia, Postoperative Nausea & Vomiting (PONV) Additional Past Anesthesia/Blood Transfusion Reaction / Comm: decrease bp with anesthesia,no problems with prior blood transfusion Past Psychological History: No Psychological Hx Reported Smoking Status: Never smoker Past Alcohol Use History: None Reported Past Drug Use History: None Reported - Past Family History Father Family Medical History: Pulmonary Embolus Additional Family Medical History / Comment(s): . Mother Family Medical History: Cancer Additional Family Medical History / Comment(s): . Sister(s) Family Medical History: Cancer Additional Family Medical History / Comment(s): . Daughter(s) Additional Family Medical History / Comment(s): lymphedema in legs Brother(s) Family Medical History: Cancer Additional Family Medical History / Comment(s): skin cancer Medications and Allergies Home Medications Medication Instructions Recorded Confirmed Type Docusate [Colace] 200 mg PO DAILY@1500 08/23/18 12/06/19 History FLUoxetine HCL [PROzac] 20 mg PO BID 08/23/18 12/06/19 History Levothyroxine Sodium [Synthroid] 112 mcg PO MOTUWETHFRSA 08/23/18 12/06/19 History Levothyroxine Sodium [Synthroid] 224 mcg PO MURO 08/23/18 12/06/19 History Montelukast [Singulair] 10 mg PO HS 08/23/18 12/06/19 History Omeprazole 40 mg PO DAILY 11/19/18 12/06/19 History Ergocalciferol (Vitamin D2) 50,000 unit PO MOWEFR 01/31/19 12/06/19 History [Vitamin D2] Bumetanide [BUMEX] 1 mg PO DAILY 07/21/19 12/06/19 History Potassium Chloride ER [K-Dur 20] 20 meq PO BID 07/21/19 12/06/19 History Calcium Acetate [PhosLo] 667 mg PO DAILY 07/22/19 12/06/19 History Sodium Bicarbonate Tab 650 mg PO BID 07/22/19 12/06/19 History traMADol HCL [Ultram] 50 mg PO TID PRN 07/22/19 12/06/19 History Albuterol Nebulized [Ventolin 2.5 mg INHALATION RT-TID PRN 12/06/19 12/06/19 History Nebulized] Albuterol Sulfate [Proair Hfa] 2 puff INHALATION RT-Q4H PRN 12/06/19 12/06/19 History Docusate [Colace] 100 mg PO HS 12/06/19 12/06/19 History Fluticasone/Salmeterol [Advair 1 puff INHALATION RT-BID PRN 12/06/19 12/06/19 History 100-50 Diskus] Lidocaine-Prilocaine Cream [Emla 1 applic TOPICAL MOWEFR 12/06/19 12/06/19 History Cream 2.5%/2.5%] Loratadine 10 mg PO DAILY 12/06/19 12/06/19 History Magnesium Chloride [Mag64] 64 mg PO DAILY 12/06/19 12/06/19 History Mometasone Furoate [Asmanex] 2 puff INHALATION RT-HS PRN 12/06/19 12/06/19 History metroNIDAZOLE [Flagyl] 250 mg PO DAILY 12/06/19 12/06/19 History Trimethobenzamide [Tigan] 300 mg PO TID PRN 12/07/19 12/07/19 History Allergies Allergy/AdvReac Type Severity Reaction Status Date / Time adhesive tape Allergy Rash/Hives Verified 12/06/19 16:30 Sulfa (Sulfonamide Allergy Itching Verified 12/06/19 16:30 Antibiotics) tetracycline Allergy Nausea & Verified 12/06/19 16:30 Vomiting codeine AdvReac Nausea Verified 12/06/19 16:30 epoetin beta [From Mircera] AdvReac Unknown Verified 12/07/19 14:07 Physical Exam Vitals: Vital Signs Temp Pulse Pulse Resp BP BP Pulse Ox 12/07/19 12:44 98.3 F 72 18 124/67 12/07/19 08:47 102/65 12/07/19 08:42 99/65 12/07/19 07:00 98.3 F 68 20 89/57 97 12/07/19 04:04 17 12/07/19 02:14 97.7 F 69 96/59 96 12/06/19 23:59 17 12/06/19 21:59 17 12/06/19 21:28 98.6 F 67 112/66 98 12/06/19 20:28 99.2 F 75 20 108/69 100 12/06/19 18:00 75 18 133/78 100 12/06/19 17:36 73 18 108/68 99 12/06/19 16:26 100.6 F H 88 18 109/68 100 Intake and Output 12/06/19 12/07/19 12/07/19 22:59 06:59 14:59 Intake Total 1200 Output Total 0 Balance 1200 Intake: Oral 200 Hemodialysis 1000 Output: Hemodialysis 0 Other: Voiding Method Toilet Toilet # Voids 1 1 Weight 56.245 kg GENERAL DESCRIPTION: An elderly female lying in bed, no distress. No tachypnea or accessory muscle of respiration use. HEENT: Shows Pallor , no scleral icterus. Oral mucous membrane is dry. No pharyngeal erythema or thrush NECK: Trachea central, no thyromegaly. LUNGS: Unlabored breathing. Clear to auscultation anteriorly. No wheeze or crackle. HEART: S1, S2, regular rate and rhythm. No loud murmur ABDOMEN: Soft, right flank tenderness ,no guarding or rigidity, no organomegaly EXTREMITIES: Diffuse swelling bilateral lower extremity SKIN: No rash, no masses palpable. NEUROLOGICAL: The patient is awake, alert, oriented x3, mood and affect normal. Results CBC & Chem 7: 12/07/19 09:00 12/07/19 09:00 Labs: Abnormal Lab Results - Last 24 Hours (Table) 12/06/19 12/06/19 12/06/19 Range/Units 17:12 19:00 19:00 RBC 3.16 L (3.80-5.40) m/uL Hgb 9.9 L (11.4-16.0) gm/dL Hct 33.2 L (34.0-46.0) % MCV 105.0 H (80.0-100.0) fL MCHC 29.8 L (31.0-37.0) g/dL Plt Count 115 L (150-450) k/uL Sodium (137-145) mmol/L Chloride (98-107) mmol/L Carbon Dioxide (22-30) mmol/L BUN (7-17) mg/dL Creatinine (0.52-1.04) mg/dL Glucose (74-99) mg/dL Plasma Lactic Acid Klever <0.5 L (0.7-2.0) mmol/L Calcium (8.4-10.2) mg/dL Alkaline Phosphatase (38-126) U/L Total Protein (6.3-8.2) g/dL Albumin (3.5-5.0) g/dL Urine Appearance Turbid H (Clear) Urine Protein 2+ H (Negative) Urine Blood Moderate H (Negative) Ur Leukocyte Esterase Large H (Negative) Urine RBC 62 H (0-5) /hpf Urine WBC >182 H (0-5) /hpf Urine WBC Clumps Many H (None) /hpf Urine Bacteria Many H (None) /hpf 12/06/19 12/07/19 12/07/19 Range/Units 19:00 09:00 09:00 RBC 2.68 L (3.80-5.40) m/uL Hgb 8.6 L (11.4-16.0) gm/dL Hct 27.4 L (34.0-46.0) % MCV 102.3 H (80.0-100.0) fL MCHC (31.0-37.0) g/dL Plt Count 110 L (150-450) k/uL Sodium 133 L 135 L (137-145) mmol/L Chloride 108 H (98-107) mmol/L Carbon Dioxide 18 L 20 L (22-30) mmol/L BUN 36 H 37 H (7-17) mg/dL Creatinine 2.25 H 2.24 H (0.52-1.04) mg/dL Glucose 119 H 114 H (74-99) mg/dL Plasma Lactic Acid Klever (0.7-2.0) mmol/L Calcium 7.9 L 7.7 L (8.4-10.2) mg/dL Alkaline Phosphatase 168 H (38-126) U/L Total Protein 5.5 L (6.3-8.2) g/dL Albumin 3.1 L (3.5-5.0) g/dL Urine Appearance (Clear) Urine Protein (Negative) Urine Blood (Negative) Ur Leukocyte Esterase (Negative) Urine RBC (0-5) /hpf Urine WBC (0-5) /hpf Urine WBC Clumps (None) /hpf Urine Bacteria (None) /hpf Microbiology - Last 24 Hours (Table) 12/06/19 19:00 Blood Culture - Final Blood 12/06/19 17:12 Urine Culture - Preliminary Urine,Voided Assessment and Plan Assessment: 1- patient with gram-negative bacteremia source is likely right-sided pyelonephritis in this patient who did have evidence of severe hydronephrosis likely complicated urinary tract infection the patient with a history of recurrent UTIs and currently no other obvious focus of this bacteremia 2-Patient with multiple antibiotic ALLERGIES that would limit the number of antibiotic safe to use (1) Gram-negative bacteremia Current Visit: Yes Status: Acute Code(s): R78.81 - BACTEREMIA SNOMED Co de(s): 405561527040 (2) Pyelonephritis of right kidney Current Visit: Yes Status: Acute Code(s): N12 - TUBULO-INTERSTITIAL NEPHRITIS, NOT SPCF ACUTE OR CHRONIC SNOMED Code(s): 37224611 (3) Fever Current Visit: Yes Status: Acute Code(s): R50.9 - FEVER, UNSPECIFIED SNOMED Code(s): 635974653 Plan: 1-We'll switch Rocephin to 2 g IV piggyback daily 2-patient will benefit from neurology evaluation We will follow on clinical condition and cultures to further adjust medication if needed Thank you for this consultation will follow this patient with you1- Time with Patient: Greater than 30
[2019-12-08] MEDS ORDERED: ONDANSETRON 4 MG/2 ML VIAL IVP STA ×2 (00:04→00:16)
[2019-12-08] MEDS ORDERED: LEVOTHYROXINE 112 MCG TAB PO SCH (06:30)
[2019-12-08] MEDS: SODIUM BICARBONATE TAB 650 MG TAB PO SCH ×2 (08:37→22:11)
[2019-12-08] MEDS: POTASSIUM CHLORIDE ER 20 MEQ TAB.ER PO SCH (08:37)
[2019-12-08] MEDS: BUMETANIDE 1 MG TAB PO SCH (08:37)
[2019-12-08] MEDS: FLUoxetine HCL 20 MG CAP PO SCH ×2 (08:38→22:11)
[2019-12-08] MEDS: CALCIUM ACETATE 667 MG TAB PO SCH (08:38)
--- NOTE | 2019-12-08 09:23 | P.PN ---
Subjective Progress Note Date: 12/08/19 Principal diagnosis: This is 74-year-old female with ESRD and on dialysis Monday, was admitted with fever and right-sided flank pain and found to have worsening of right hydronephrosis which was present before. Workup has shown gram negative bacteremia with E. coli in the urine and blood. In the past she had grown the same organism. She has had kidney stones and the most recent CT scan here shows kidneys on the left with hydronephrosis which is worse on the right. She is on Rocephin which is appropriate based on previous sensitivities. She is afebrile. This morning she is nothing by mouth for possible stent. She complains of headache which is a chronic problem and is controlled on Toradol about 3-4 pills a week. Abdominal pain and flank pain is much better. She is afebrile. Blood pressure is somewhat low Objective - Vital Signs Vital signs: Vital Signs Temp 97.8 F 12/08/19 07:56 Pulse 66 12/08/19 07:56 Resp 14 12/08/19 07:56 BP 102/65 12/08/19 07:56 Pulse Ox 95 12/08/19 07:56 Intake & Output 12/07/19 12/08/19 12/08/19 18:59 06:59 18:59 Intake Total 1200 150 Output Total 0 Balance 1200 150 Intake: Intake, IV Titration 50 Amount cefTRIAXone 2 gm In 50 Sodium Chloride 0.9% 50 ml @ 100 mls/hr IVPB [facility] Rx#:[id number] Oral 200 100 Hemodialysis 1000 Output: Hemodialysis 0 Other: # Voids 0 3 On examination awake alert oriented comfortable HEENT exam no JVP neck is supple no facial asymmetry Lungs are clear to auscultation good air entry bilaterally Heart sounds are unremarkable for any murmur rub gallop Abdomen soft nontender no loin pain and flank pain or tenderness Extremity exam was no edema Neurologically awake alert oriented. - Labs CBC & Chem 7: 12/07/19 09:00 12/07/19 09:00 Labs: Abnormal Lab Results - Last 24 Hours (Table) 12/07/19 12/07/19 Range/Units 09:00 09:00 RBC 2.68 L (3.80-5.40) m/uL Hgb 8.6 L (11.4-16.0) gm/dL Hct 27.4 L (34.0-46.0) % MCV 102.3 H (80.0-100.0) fL Plt Count 110 L (150-450) k/uL Sodium 135 L (137-145) mmol/L Chloride 108 H (98-107) mmol/L Carbon Dioxide 20 L (22-30) mmol/L BUN 37 H (7-17) mg/dL Creatinine 2.24 H (0.52-1.04) mg/dL Glucose 114 H (74-99) mg/dL Calcium 7.7 L (8.4-10.2) mg/dL Microbiology - Last 24 Hours (Table) 12/06/19 19:00 Blood Culture Gram Stain - Preliminary Blood Blood Culture - Preliminary Escherichia coli 12/06/19 17:12 Urine Culture - Preliminary Urine,Voided Gram Neg Bacilli 12/06/19 19:00 Blood Culture - Final Blood Assessment and Plan Assessment: Impression 1. ESRD on dialysis since January 2019 with a left forearm graft Monday for 3 hours with no fluid taken off as she has significant urine output. She was dialyzed on Monday instead of Monday as she had missed her Monday dialysis 2. Admitted with right flank pain. Computed tomography scan shows worsening of right hydronephrosis. Urine culture and blood cultures are growing E. coli which is a recurrent problem. She is currently on Rocephin which is appropriate antibiotics, she has pyelonephritis. 3. Recurrent kidney stone post-bariatric surgery Kye-en-Y. Computed tomography scan shows a left-sided kidney stone and right hydronephrosis which is more severe 4. Anemia off ESRD hemoglobin is 9.9 nearl nearly at, went down to 8.6 this morning. Rule out iron deficiency 5. Mild degree of acidosis bicarb 20 this morning and a gap of 7 from ESRD Recommendation 1. Will maintain the Monday schedule dialysis so she'll be dialyzed tomorrow Monday 2. Continue antibiotics per ID 3. Possible stent today 4. Will discontinue the KCl. 5. Kidney stones need to be worked up if it has not been done in the past. In the meantime she should drink lots of water 6. continue bicarbonate 7. continue darbepoetin 40 g subcu every week
[2019-12-08] MEDS: SODIUM CHLORIDE 0.9% 1,000 ML IV SCH (10:56)
[2019-12-08] MEDS: ONDANSETRON 4 MG/2 ML VIAL IVP PRN (10:56)
--- NOTE | 2019-12-08 11:35 | P.GSCN ---
History of Present Illness Consult date: 12/08/19 Reason for Consult: right sided hydronephrosis History of present illness: Ms Dallas is a 74-year-old female with hx of ESRD on hemodialysis. She is admitted with right sided flank with lowe grade fever of 100.6. He UA on admission was concerning for UTI. She underwent a CT of abdomen and pelvis which showed worsening hydronephrosis on the right side patient and non obstructing stone on the left. She has hx of right chronic right sided hydronephrosis. she has hx of left sided renal stones S/P PCNL in the past by Dr Hennessy. Since admission she has been afebrile and her WBC is WNL. Her flank pain has improved and indicated she now only experience flank pain with movement. Review of Systems - Constitutional Denies chills, Denies fever - EENT Ears, nose, mouth and throat: Denies dysphagia - Cardiovascular Denies chest pain, Denies shortness of breath - Respiratory Denies cough, Denies 7 - Gastrointestinal Reports as per HPI - Genitourinary Genitourinary: Reports flank pain, Reports kidney stones, Denies dysuria - Integumentary Denies rash, Denies unusual bruising - Neurological Denies headaches, Denies syncope Past Medical History Past Medical History: COPD, Osteoarthritis (OA), Renal Disease, Thyroid Disorder Additional Past Medical History / Comment(s): kidney stones and UTI,steroid injection October 2018 hx lymphedema, hx pulmonary fibrosis, hx graves,hx rt foot torn ligaments,hx kidney stones, hx osteoporosis,hypotension, chronic respiratory failure on 2 L nasal cannula at night & prn, vitamin D deficiency, hypocalcemia 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 PER [facility]HS NOT [facility] MDRO Source:: Urine Past Surgical History: Bariatric Surgery Additional Past Surgical History / Comment(s): hx bariatric surgery-Kye En Y,lung biopsy,radioactive iodine-tx thyroid,rectal and bladder suspensions,vaginal surgery as a child,partha carpel tunnel,rt knee meniscus repair,D&C x3, left arm fistula 02/08/19 Past Anesthesia/Blood Transfusion Reactions: Previous Problems w/ Anesthesia, Postoperative Nausea & Vomiting (PONV) Additional Past Anesthesia/Blood Transfusion Reaction / Comm: decrease bp with anesthesia,no problems with prior blood transfusion Past Psychological History: No Psychological Hx Reported Smoking Status: Never smoker Past Alcohol Use History: None Reported Past Drug Use History: None Reported - Past Family History Father Family Medical History: Pulmonary Embolus Additional Family Medical History / Comment(s): . Mother Family Medical History: Cancer Additional Family Medical History / Comment(s): . Sister(s) Family Medical History: Cancer Additional Family Medical History / Comment(s): . Daughter(s) Additional Family Medical History / Comment(s): lymphedema in legs Brother(s) Family Medical History: Cancer Additional Family Medical History / Comment(s): skin cancer Medications and Allergies Home Medications Medication Instructions Recorded Confirmed Type Docusate [Colace] 200 mg PO DAILY@1500 08/23/18 12/06/19 History FLUoxetine HCL [PROzac] 20 mg PO BID 08/23/18 12/06/19 History Levothyroxine Sodium [Synthroid] 112 mcg PO MOTUWETHFRSA 08/23/18 12/06/19 History Levothyroxine Sodium [Synthroid] 224 mcg PO MURO 08/23/18 12/06/19 History Montelukast [Singulair] 10 mg PO HS 08/23/18 12/06/19 History Omeprazole 40 mg PO DAILY 11/19/18 12/06/19 History Ergocalciferol (Vitamin D2) 50,000 unit PO MOWEFR 01/31/19 12/06/19 History [Vitamin D2] Bumetanide [BUMEX] 1 mg PO DAILY 07/21/19 12/06/19 History Potassium Chloride ER [K-Dur 20] 20 meq PO BID 07/21/19 12/06/19 History Calcium Acetate [PhosLo] 667 mg PO DAILY 07/22/19 12/06/19 History Sodium Bicarbonate Tab 650 mg PO BID 07/22/19 12/06/19 History traMADol HCL [Ultram] 50 mg PO TID PRN 07/22/19 12/06/19 History Albuterol Nebulized [Ventolin 2.5 mg INHALATION RT-TID PRN 12/06/19 12/06/19 History Nebulized] Albuterol Sulfate [Proair Hfa] 2 puff INHALATION RT-Q4H PRN 12/06/19 12/06/19 History Docusate [Colace] 100 mg PO HS 12/06/19 12/06/19 History Fluticasone/Salmeterol [Advair 1 puff INHALATION RT-BID PRN 12/06/19 12/06/19 History 100-50 Diskus] Lidocaine-Prilocaine Cream [Emla 1 applic TOPICAL MOWEFR 12/06/19 12/06/19 History Cream 2.5%/2.5%] Loratadine 10 mg PO DAILY 12/06/19 12/06/19 History Magnesium Chloride [Mag64] 64 mg PO DAILY 12/06/19 12/06/19 History Mometasone Furoate [Asmanex] 2 puff INHALATION RT-HS PRN 12/06/19 12/06/19 History metroNIDAZOLE [Flagyl] 250 mg PO DAILY 12/06/19 12/06/19 History Trimethobenzamide [Tigan] 300 mg PO TID PRN 12/07/19 12/07/19 History Allergies Allergy/AdvReac Type Severity Reaction Status Date / Time adhesive tape Allergy Rash/Hives Verified 12/06/19 16:30 Sulfa (Sulfonamide Allergy Itching Verified 12/06/19 16:30 Antibiotics) tetracycline Allergy Nausea & Verified 12/06/19 16:30 Vomiting codeine AdvReac Nausea Verified 12/06/19 16:30 epoetin beta [From Mircera] AdvReac Unknown Verified 12/07/19 14:07 Surgical - Exam Vital Signs Temp Pulse Resp BP Pulse Ox 100.6 F H 88 18 109/68 100 12/06/19 16:26 12/06/19 16:26 12/06/19 16:26 12/06/19 16:26 12/06/19 16:26 - General well developed, well nourished, no distress, no pain - Eyes PERRL, normal ocular movement - ENT normal mucosa, no hearing loss - Respiratory normal expansion, normal respiratory effort - Abdomen Abdomen: soft, non tender - Psychiatric oriented to time, oriented to person, oriented to place, speech is normal Results - Labs 12/07/19 09:00 12/07/19 09:00 Microbiology - Last 24 Hours (Table) 12/06/19 19:00 Blood Culture Gram Stain - Preliminary Blood Blood Culture - Preliminary Escherichia coli 12/06/19 17:12 Urine Culture - Preliminary Urine,Voided Gram Neg Bacilli 12/06/19 19:00 Blood Culture - Final Blood Assessment and Plan Assessment: 74 yo female admitted to the hospital with UTI and right flank pain. right flank pain resolved, now only present with movement. VSS, no leucocytosis. CT demonstrated chronic hydro on right, worse than baseline. minimal stranding around the kidney. I discussed given the resolution of flank pain, been afebrile, been ESRD on HD and the chronic nature of hydronephrosis. We will hold off on any surgical intervention for her hydronephrosis. abx per ID recommendation. She is ok for discharge from urology standpoint, can f/u with Dr Hennessy as an outpatient
--- NOTE | 2019-12-08 14:24 | P.PN ---
Subjective Progress Note Date: 12/08/19 Principal diagnosis: Flank pain Patient was seen and examined. No acute events overnight. Patient improvement in her abdominal pain. She denies any urinary frequency or dysuria. Patient states that she is making plenty of urine. She denies any fever or chills. She denies any chest pain, shortness of breath or palpitations. No nausea or vomiting. Appears tearful about her current medical situation. Objective - Vital Signs Vital signs: Vital Signs Temp 97.8 F 12/08/19 07:56 Pulse 66 12/08/19 07:56 Resp 14 12/08/19 07:56 BP 102/65 12/08/19 07:56 Pulse Ox 95 12/08/19 07:56 Intake & Output 12/07/19 12/08/19 12/08/19 18:59 06:59 18:59 Intake Total 1200 150 540 Output Total 0 Balance 1200 150 540 Intake: Intake, IV Titration 50 Amount cefTRIAXone 2 gm In 50 Sodium Chloride 0.9% 50 ml @ 100 mls/hr IVPB [facility] Rx#:[id number] Oral 200 100 540 Hemodialysis 1000 Output: Hemodialysis 0 Other: # Voids 0 3 2 - Exam General: [non toxic], [no distress], [appears at stated age] Derm: [warm], [dry] Head: [atraumatic], [normocephalic], [symmetric] Eyes: [EOMI], [no lid lag], [anicteric sclera] Mouth: [no lip lesion], [mucus membranes moist] Cardiovascular: [S1S2 reg], [no murmur], [positive posterior tibial pulse bilateral], Lungs: [CTA bilateral], [no rhonchi, no rales] , [no accessory muscle use] Abdominal: [soft], [ nontender to palpation], [no guarding], [no appreciable organomegaly], right CVA tenderness Ext: [no gross muscle atrophy], [1+ nonpitting bilateral lower extremity edema], [no contractures] Neuro: [no focal neuro deficits] Psych: [Alert], [oriented], [appropriate affect] - Labs CBC & Chem 7: 12/07/19 09:00 12/07/19 09:00 Labs: Microbiology - Last 24 Hours (Table) 12/06/19 19:00 Blood Culture Gram Stain - Preliminary Blood Blood Culture - Preliminary Escherichia coli 12/06/19 17:12 Urine Culture - Preliminary Urine,Voided Gram Neg Bacilli Assessment and Plan Assessment: Pyelonephritis with gram-negative bacteremia Hydronephrosis Macrocytic anemia ESRD on hemodialysis COPD Hypothyroidism Patient did not meet sepsis criteria on admission. Urinalysis positive for leukocyte esterase. CT abdomen and pelvis showed right-sided hydronephrosis. Blood cultures positive for E. coli. Continue Rocephin. Follow blood and urine cultures. Tylenol as needed for fever. Follow ID consultation. We will consult urology for recommendations on findings of hydronephrosis on CT. Case was discussed with urology, no surgical intervention planned at this time. Hemoglobin 8.6 with MCV of 102.3. TSH within normal limits. Iron studies within normal limits in 2018. Will obtain B12 and folate. Nephrology will be consulted to resume her hemodialysis schedule. Continue calcium acetate. Continue Bumex. Continue Aranesp. Continue sodium bicarb. Albuterol neb as needed for shortness of breath and wheezing. Resume home medication of Symbicort, fluticasone and Singulair. Restart Synthroid for history of hypothyroidism. [Patient admitted for pyelonephritis. Found to have bacteremia. Repeat blood cultures pending. On IV antibiotics. Infectious disease on board. She is pending clinical improvement. Likely DC in 1-2 days.]
--- NOTE | 2019-12-08 14:30 | P.PN ---
Progress Note - Text Progress Note Date: 12/08/19 Advance care planning: Advanced care planning was discussed with the patient. Patient states that she is ready to go when the time is right. Patient states that she has been having a difficult time with dialysis and the pain associated with dialysis. She was offered to be put on kidney transplant list but plans of being canceled due to recent diagnosis of brain aneurysm. Patient feels that she is a burden on her and her family. Patient reports that she has a wonderful support system including her , grandchildren and the community. Patient is okay with continuing dialysis at this time for at least the next year. When asked about her CODE STATUS, patient states that she would like that decision deferred to her . Discussed further, patient is okay receiving chest compressions and okay with intubation as long as she is neurologically intact. We discussed palliative care options that would decrease the burden on her . Patient is open to palliative care options but would like to talk to her prior to making a decision. At this time she will be kept full code. This discussion took about 20 minutes to complete.
[2019-12-08] MEDS: DOCUSATE 100 MG CAP PO SCH ×2 (14:39→22:11)
[2019-12-08] MEDS: MONTELUKAST 10 MG TAB PO SCH (22:11)
[2019-12-09] MEDS: LEVOTHYROXINE 112 MCG TAB PO SCH (06:15)
--- NOTE | 2019-12-09 07:07 | PN ---
PROGRESS NOTE DATE OF SERVICE: 12/08/2019 REASON FOR FOLLOWUP: Right-sided pyelonephritis. INTERVAL HISTORY: Patient is currently afebrile. The patient is feeling better today and breathing comfortably. Denies having any chest pain or shortness of breath or cough. Pain to the right side has improved. No nausea, vomiting or diarrhea. PHYSICAL EXAMINATION: Blood pressure 115/76, pulse of 72, temperature 97.9. She is 98% on room air. General description is and elderly female lying in bed in no distress. Respiratory system: Unlabored breathing, clear to auscultation anteriorly. Heart S1, S2. Regular rate and rhythm. Abdomen is soft, no tenderness. LABS: Hemoglobin 8.2, white count 5.4, BUN of 37, creatinine 2.24. Blood cultures with an E coli. Urine also showing an E coli. DIAGNOSTIC IMPRESSION AND PLAN: Patient with an E coli bacteremia secondary to urinary source with evidence of right- sided pyelonephritis and obstructing kidney. Patient is currently covered with Rocephin 2 grams daily. Urology has evaluated the patient and is not recommending any surgical intervention at this point. She will continue with Rocephin. The patient to finish with oral antibiotic on discharge. Continue supportive care. MMODL / IJN: [id number] /
[2019-12-09] MEDS: SODIUM BICARBONATE TAB 650 MG TAB PO SCH (07:49)
[2019-12-09] MEDS: CALCIUM ACETATE 667 MG TAB PO SCH (07:49)
[2019-12-09] MEDS: BUMETANIDE 1 MG TAB PO SCH (07:50)
[2019-12-09] MEDS: DOCUSATE 100 MG CAP PO SCH (07:50)
[2019-12-09] MEDS: FLUoxetine HCL 20 MG CAP PO SCH (07:51)
[2019-12-09] MEDS: SODIUM CHLORIDE 0.9% 1,000 ML IV SCH (07:51)
[2019-12-09] MEDS: traMADol 50 MG TAB PO PRN (10:30)
[2019-12-09] MEDS ORDERED: POLYETHYLENE GLYCOL 3350 17 GM POWD.PACK PO STA (10:52)
[2019-12-09 11:26] LABS: % Iron Saturation 21.46 (12.00-45.00)
--- NOTE | 2019-12-09 11:52 | P.DS ---
Providers Date of admission: 12/06/19 18:45 Expected date of discharge: 12/09/19 Attending physician: Azalia Ha MD Consults: 12/06/19 18:46 Consult Physician Urgent Consulting Provider: Devendra Hardwick Consult Reason/Comments: esrd on hd Do you want consulting provider notified?: Yes 12/06/19 20:46 Consult Physician Urgent Consulting Provider: Kana Uribe Consult Reason/Comments: Hydronephrosis, nephrolithiasis Do you want consulting provider notified?: Yes 12/07/19 10:14 Consult Physician Urgent Consulting Provider: Yudith Biswas Consult Reason/Comments: bacteremia Do you want consulting provider notified?: Yes Primary care physician: [facility] Course: The patient is a 74-year-old female with a PMH of chronic UTIs, multiple kidney stones requiring nephrostomy tubes, end-stage renal disease on hemodialysis (initiated 9 months ago), chronic lower extremity lymphedema, COPD, hypothyroidism, and pulmonary fibrosis who presented to the ED with complaints of right flank pain, nausea and vomiting. The patient notes that her symptoms started initially on Monday morning while she was undergoing hemodialysis. She reports throwing up 4 times while receiving hemodialysis, nonbloody and subsequently throwing up 2-3 times at home the following night. She was then okay throughout the following day but then again developed nausea and vomiting on evening with 5-6 episodes of nonbloody and nonbilious emesis. The patient presented for dialysis earlier today though was sent to the ED after she was noted to be febrile. The patient reports ongoing right-sided flank pain, nonradiating, with no alleviating or exacerbating features. She also reports feeling weak and occasionally lightheaded when she tries to stand up. She denied fever, or chills. She reported her urine appearing white and frothy but denied dysuria, hematuria, urinary urgency or frequency. Denied diarrhea, chest pain, shortness of breath. Reports a nonproductive cough for the last one week which she attributes to seasonal allergies. In the emergency room, the patient was febrile at 100.6F with BP 109/68, pulse 88, with SpO2 100% on room air. CT abdomen and pelvis without contrast revealed severe right-sided hydronephrosis, worse from prior exam with multiple left renal calculi. Laboratory evaluation revealed a UA consistent with UTI, WBC count 7.1, hemoglobin 9.9, platelets 115, and TSH 0.568. Her blood cultures came back positive for E. coli. Repeat blood cultures are negative at 48 hours at the time of discharge. Urine culture was positive for E. coli. Urology evaluated the patient and recommended no urologic procedures. Infectious disease was consulted and recommended Ceftin for 12 days on discharge. Nephrology was consulted and her hemodialysis was resumed on a Monday schedule. Patient was seen and examined. No acute events overnight. Receiving dialysis today. Complains of fatigue. She denies any chest pain or shortness breath or palpitations. No nausea or vomiting. No fever or chills. General: [non toxic], [no distress], [appears at stated age] Derm: [warm], [dry] Head: [atraumatic], [normocephalic], [symmetric] Eyes: [EOMI], [no lid lag], [anicteric sclera] Mouth: [no lip lesion], [mucus membranes moist] Cardiovascular: [S1S2 reg], [no murmur], [positive posterior tibial pulse bilateral], Lungs: [CTA bilateral], [no rhonchi, no rales] , [no accessory muscle use] Abdominal: [soft], [ nontender to palpation], [no guarding], [no appreciable organomegaly], right CVA tenderness Ext: [no gross muscle atrophy], [1+ nonpitting bilateral lower extremity edema], [no contractures] Neuro: [no focal neuro deficits] Psych: [Alert], [oriented], [appropriate affect] Pyelonephritis with gram-negative bacteremia Hydronephrosis Macrocytic anemia ESRD on hemodialysis COPD Hypothyroidism Patient did not meet sepsis criteria on admission. Urinalysis positive for leukocyte esterase. CT abdomen and pelvis showed right-sided hydronephrosis. Blood cultures positive for E. coli. Continue Rocephin. Follow blood and urine cultures. Tylenol as needed for fever. Discussed with Dr. Moon, plans for Ceftin for 12 days, cleared for discharge today. We will consult urology for recommendations on findings of hydronephrosis on CT. Case was discussed with urology, no surgical intervention planned at this time. Hemoglobin 8.6 with MCV of 102.3. TSH within normal limits. Iron studies within normal limits in 2018. Will obtain B12 and folate. Nephrology will be consulted to resume her hemodialysis schedule. Continue calcium acetate. Continue Bumex. Continue Aranesp. Continue sodium bicarb. Albuterol neb as needed for shortness of breath and wheezing. Resume home medication of Symbicort, fluticasone and Singulair. Restart Synthroid for history of hypothyroidism. [Patient admitted for pyelonephritis. Found to have bacteremia. Repeat blood cultures negative. Transition to oral antibiotics today. Infectious disease on board. She is pending clinical improvement. DC home today. This complex discharge took about 35 minutes to complete.] Pertinent Studies: CT abdomen and pelvis Patient Condition at Discharge: Stable Plan - Discharge Summary Discharge Rx Participant: No New Discharge Prescriptions: New RX: Darbepoetin Mike [Aranesp] 40 mcg SQ Q7D syringe Cefuroxime Axetil [Ceftin] 500 mg PO BID 12 Days #24 tab Continue RX: Montelukast [Singulair] 10 mg PO HS RX: FLUoxetine HCL [PROzac] 20 mg PO BID RX: Docusate [Colace] 200 mg PO DAILY@1500 RX: Levothyroxine Sodium [Synthroid] 224 mcg PO MURO RX: Levothyroxine Sodium [Synthroid] 112 mcg PO MOTUWETHFRSA RX: Omeprazole 40 mg PO DAILY RX: Ergocalciferol (Vitamin D2) [Vitamin D2] 50,000 unit PO MOWEFR RX: Potassium Chloride ER [K-Dur 20] 20 meq PO BID RX: Bumetanide [BUMEX] 1 mg PO DAILY RX: Sodium Bicarbonate Tab 650 mg PO BID RX: Calcium Acetate [PhosLo] 667 mg PO DAILY RX: traMADol HCL [Ultram] 50 mg PO TID PRN PRN Reason: Pain RX: Albuterol Sulfate [Proair Hfa] 2 puff INHALATION RT-Q4H PRN PRN Reason: Shortness Of Breath RX: Magnesium Chloride [Mag64] 64 mg PO DAILY RX: Loratadine 10 mg PO DAILY RX: Docusate [Colace] 100 mg PO HS RX: Mometasone Furoate [Asmanex] 2 puff INHALATION RT-HS PRN PRN Reason: Shortness Of Breath RX: Albuterol Nebulized [Ventolin Nebulized] 2.5 mg INHALATION RT-TID PRN PRN Reason: Shortness Of Breath RX: Fluticasone/Salmeterol [Advair 100-50 Diskus] 1 puff INHALATION RT-BID PRN PRN Reason: Shortness Of Breath RX: Lidocaine-Prilocaine Cream [Emla Cream 2.5%/2.5%] 1 applic TOPICAL MOWEFR RX: Trimethobenzamide [Tigan] 300 mg PO TID PRN PRN Reason: Nausea Discontinued metroNIDAZOLE [Flagyl] 250 mg PO DAILY Discharge Medication List RX: Docusate [Colace] 200 mg PO DAILY@1500 08/23/18 [History] RX: FLUoxetine HCL [PROzac] 20 mg PO BID 08/23/18 [History] RX: Levothyroxine Sodium [Synthroid] 112 mcg PO MOTUWETHFRSA 08/23/18 [History] RX: Levothyroxine Sodium [Synthroid] 224 mcg PO MURO 08/23/18 [History] RX: Montelukast [Singulair] 10 mg PO HS 08/23/18 [History] RX: Omeprazole 40 mg PO DAILY 11/19/18 [History] RX: Ergocalciferol (Vitamin D2) [Vitamin D2] 50,000 unit PO MOWEFR 01/31/19 [History] RX: Bumetanide [BUMEX] 1 mg PO DAILY 07/21/19 [History] RX: Potassium Chloride ER [K-Dur 20] 20 meq PO BID 07/21/19 [History] RX: Calcium Acetate [PhosLo] 667 mg PO DAILY 07/22/19 [History] RX: Sodium Bicarbonate Tab 650 mg PO BID 07/22/19 [History] RX: traMADol HCL [Ultram] 50 mg PO TID PRN 07/22/19 [History] RX: Albuterol Nebulized [Ventolin Nebulized] 2.5 mg INHALATION RT-TID PRN 12/06/19 [History] RX: Albuterol Sulfate [Proair Hfa] 2 puff INHALATION RT-Q4H PRN 12/06/19 [History] RX: Docusate [Colace] 100 mg PO HS 12/06/19 [History] RX: Fluticasone/Salmeterol [Advair 100-50 Diskus] 1 puff INHALATION RT-BID PRN 12/06/19 [History] RX: Lidocaine-Prilocaine Cream [Emla Cream 2.5%/2.5%] 1 applic TOPICAL MOWEFR 12/06/19 [History] RX: Loratadine 10 mg PO DAILY 12/06/19 [History] RX: Magnesium Chloride [Mag64] 64 mg PO DAILY 12/06/19 [History] RX: Mometasone Furoate [Asmanex] 2 puff INHALATION RT-HS PRN 12/06/19 [History] RX: Trimethobenzamide [Tigan] 300 mg PO TID PRN 12/07/19 [History] Cefuroxime Axetil [Ceftin] 500 mg PO BID 12 Days #24 tab 12/09/19 [Rx] RX: Darbepoetin Mike [Aranesp] 40 mcg SQ Q7D syringe 12/09/19 [Rx] Follow up Appointment(s)/Referral(s): Abbey Wheeler MD [STAFF PHYSICIAN] - 1 Week Terrence Kwan MD [Primary Care Provider] - 1-2 days Orville Hennessy MD [STAFF PHYSICIAN] - 2 Weeks Activity/Diet/Wound Care/Special Instructions: FU with PCP within 3 days. FU with Urology within 1 week. FU with Nephrology within 1 week. Take all meds as advised. Come back to ED or call 911 for worsening CP, SOB, palpitations, intractable nausea or vomiting Dialysis on MWF schedule Discharge Disposition: HOME SELF-CARE
[2019-12-09] MEDS: ONDANSETRON 4 MG/2 ML VIAL IVP PRN (12:30)
[2019-12-09] MEDS ORDERED: GABAPENTIN 300 MG CAP PO STA (13:20)
[2019-12-09 14:34] VITALS: TEMP 97.6
--- NOTE | 2019-12-09 15:25 | PN ---
PROGRESS NOTE DATE OF SERVICE: 12/09/2019 REASON FOR FOLLOWUP: Right-sided pyelonephritis with E coli bacteremia. INTERVAL HISTORY: The patient is currently afebrile. The patient is breathing comfortably. The patient's right flank pain has improved. No chest pain. No shortness of breath or cough. No nausea, no vomiting or abdominal pain. She really wants to go home. PHYSICAL EXAMINATION: Blood pressure 150/71 with a pulse of 81, temperature 98.3. She is 97% on room air. General description is an elderly female lying in bed in no distress. RESPIRATORY SYSTEM: Unlabored breathing. Clear to auscultation anteriorly. HEART: S1, S2. Regular rate and rhythm. ABDOMEN: Soft. No tenderness. LABS: No new labs have been obtained today. Blood and urine with E coli. Follow-up blood culture from 12/06 negative. DIAGNOSTIC IMPRESSION AND PLAN: Patient with Escherichia coli bacteremia secondary to the right-sided pyelonephritis, complicated urinary tract infection. The patient has shown clinical response to Rocephin 2 grams daily and wants to go home. Antibiotic can be switched over to Ceftin for another 12 days to finish her course of therapy and close outpatient followup. MMODL / IJN: [id number] /
[2019-12-09 15:41] VITALS: BP 135/78; PULSE 62; RESP 16
[2019-12-09 15:48] LABS: Folate, Serum 9.3 ng/mL
--- NOTE | 2019-12-09 16:10 | PN ---
PROGRESS NOTE Patient is seen for followup for end-stage renal disease. She is currently lying in bed comfortably, not in any acute distress. No significant complaints. PHYSICAL EXAMINATION: Blood pressure was 150/71, heart rate 81 per minute, she is afebrile. Examination of the heart S1, S2. Examination of the lungs, decreased breath sounds at bases. Abdomen is soft, nontender. Examination of the lower extremities shows no significant edema. LABS: Show sodium of 135, potassium 4.3 from 12/07/2019. Creatinine was 2.24 at that time. ASSESSMENT: 1. End-stage renal disease, on hemodialysis on a Monday, Monday, Monday schedule. 2. Escherichia coli bacteremia from urinary tract infection, pyelonephritis with repeat blood cultures currently negative. 3. Recurrent kidney stones with the repeat ultrasound to be scheduled as outpatient. The patient will follow up with Urology as outpatient. 4. CKD mineral bone disorder maintained on PhosLo. PLAN: Hemodialysis today following which patient could be discharged and follow up as outpatient with Urology and repeat imaging studies as outpatient as it appears the stone may have moved. MMODL / IJN: [id number] /
== END 2019-12-09 17:50 | disposition home or self-care (01) | DRG 690 ==
LOC: EC 16:21 → 4SSUR 18:45
PROVIDERS: ADMIT Family Medicine; ATTEND Family Medicine
PROC: 5A1D70Z Performance of Urinary Filtration, Intermittent, Less than 6 Hours Per Day (ICD-10-PCS; principal; 2019-12-07)
DX: N13.6 Pyonephrosis (principal); J96.10 Chronic respiratory failure, unspecified whether with hypoxia or hypercapnia; R78.81 Bacteremia; E87.2 Acidosis; Z11.59 Encounter for screening for other viral diseases; D69.6 Thrombocytopenia, unspecified; I67.1 Cerebral aneurysm, nonruptured; N18.6 End stage renal disease; D63.1 Anemia in chronic kidney disease; E83.9 Disorder of mineral metabolism, unspecified; J84.10 Pulmonary fibrosis, unspecified; Z99.2 Dependence on renal dialysis; J44.9 Chronic obstructive pulmonary disease, unspecified; M19.90 Unspecified osteoarthritis, unspecified site; B96.20 Unspecified Escherichia coli [E. coli] as the cause of diseases classified elsewhere; E03.9 Hypothyroidism, unspecified; M81.0 Age-related osteoporosis without current pathological fracture; J30.2 Other seasonal allergic rhinitis; E05.00 Thyrotoxicosis with diffuse goiter without thyrotoxic crisis or storm; I89.0 Lymphedema, not elsewhere classified; Z79.899 Other long term (current) drug therapy; Z79.890 Hormone replacement therapy; Z87.440 Personal history of urinary (tract) infections; Z91.048 Other nonmedicinal substance allergy status; Z87.442 Personal history of urinary calculi; Z99.81 Dependence on supplemental oxygen; Z98.84 Bariatric surgery status; Z98.890 Other specified postprocedural states; Z88.1 Allergy status to other antibiotic agents; Z88.5 Allergy status to narcotic agent; Z88.2 Allergy status to sulfonamides; Z80.8 Family history of malignant neoplasm of other organs or systems; Z82.49 Family history of ischemic heart disease and other diseases of the circulatory system
CPT/HCPCS: 74176; 80048; 80053; 81001; 82607; 82746; 83540; 83550; 83605; 83690; 83735; 84443; 85025; 85027; 85610; 85730; 87040; 87077; 87086; 87186; 90935; 93005; 96372; 96374; 99285

== ENCOUNTER 2019-12-19 14:08 | Inpatient (IN) | payer MEDICARE ==
--- NOTE | 2019-12-19 14:26 | P.HPIHPCON ---
History of Present Illness H&P Date: 12/19/19 The patient is a 74-year-old female with a history of end-stage renal disease on hemodialysis via left upper extremity loop AV graft. She presented to dialysis yesterday and was found to have a thrombosed graft. She's had multiple interventions in the past. She was able to undergo dialysis on Monday, there was some area of infiltration but they were able to place a third needle and resume entirety of the treatment. She was recently hospitalized for increased swelling and did have an issue with infiltration last week at that time also. Her last visit in the office was October 14 of this year showing an ultrasound with patent graft and patent stents. She currently denies any fevers, chills, or vomiting. She is currently having some nausea and feeling somewhat tired but overall feels fine. In the past she has gone for 5 days at a time without dialysis without a significant issue. Consent for Procedure: I have explained the operation/procedure to the patient, including the risks, benefits, side effects, alternative therapies (including not receiving the prop osed treatment or service), the likelihood of the patient achieving his/her goals, and potential recuperation problems for the procedure/sedation/analgesia, as well as any blood products, if indicated. I also explained to the patient the risks, benefits and side effects of the alternatives, as well as the risks related to not receiving the proposed procedure, care, treatment, or services. Past Medical History Past Medical History: COPD, Osteoarthritis (OA), Renal Disease, Thyroid Disorder Additional Past Medical History / Comment(s): kidney stones and UTI,steroid injection October 2018 hx lymphedema, hx pulmonary fibrosis, hx graves,hx rt foot torn ligaments,hx kidney stones, hx osteoporosis,hypotension, chronic resp iratory failure on 2 L nasal cannula at night & prn, vitamin D deficiency, hypocalcemia History of Any Multi-Drug Resistant Organisms: CRE Date of last positivie culture/infection: 10/16/18 MDRO-CRE PER [facility] NOT [facility] MDRO Source:: Urine Past Surgical History: Bariatric Surgery Additional Past Surgical History / Comment(s): hx bariatric surgery-Kye En Y,lung biopsy,radioactive iodine-tx thyroid,rectal and bladder suspensions,vaginal surgery as a child,partha carpel tunnel,rt knee meniscus repair,D&C x3, left arm fistula 02/08/19 Past Anesthesia/Blood Transfusion Reactions: Previous Problems w/ Anesthesia, Postoperative Nausea & Vomiting (PONV) Additional Past Anesthesia/Blood Transfusion Reaction / Comment(s): decrease bp with anesthesia,no problems with prior blood transfusion Past Psychological History: No Psychological Hx Reported Past Alcohol Use History: None Reported Past Drug Use History: None Reported - Past Family History Father Family Medical History: Pulmonary Embolus Additional Family Medical History / Comment(s): . Mother Family Medical History: Cancer Additional Family Medical History / Comment(s): . Sister(s) Family Medical History: Cancer Additional Family Medical History / Comment(s): . Daughter(s) Additional Family Medical History / Comment(s): lymphedema in legs Brother(s) Family Medical History: Cancer Additional Family Medical History / Comment(s): skin cancer Medications and Allergies Home Medications Medication Instructions Recorded Confirmed Type Docusate [Colace] 200 mg PO DAILY@1500 08/23/18 12/18/19 History FLUoxetine HCL [PROzac] 20 mg PO BID 08/23/18 12/18/19 History Levothyroxine Sodium [Synthroid] 112 mcg PO MOTUWETHFRSA 08/23/18 12/18/19 History Levothyroxine Sodium [Synthroid] 224 mcg PO MURO 08/23/18 12/18/19 History Montelukast [Singulair] 10 mg PO HS 08/23/18 12/18/19 History Omeprazole 40 mg PO DAILY 11/19/18 12/18/19 History Ergocalciferol (Vitamin D2) 50,000 unit PO MOWEFR 01/31/19 12/18/19 History [Vitamin D2] Bumetanide [BUMEX] 1 mg PO DAILY 07/21/19 12/18/19 History Potassium Chloride ER [K-Dur 20] 20 meq PO BID 07/21/19 12/18/19 History Calcium Acetate [PhosLo] 667 mg PO DAILY 07/22/19 12/18/19 History Sodium Bicarbonate Tab 650 mg PO BID 07/22/19 12/18/19 History traMADol HCL [Ultram] 50 mg PO TID PRN 07/22/19 12/18/19 History Albuterol Nebulized [Ventolin 2.5 mg INHALATION RT-TID PRN 12/06/19 12/06/19 History Nebulized] Albuterol Sulfate [Proair Hfa] 2 puff INHALATION RT-Q4H PRN 12/06/19 12/06/19 History Docusate [Colace] 100 mg PO HS 12/06/19 12/18/19 History Fluticasone/Salmeterol [Advair 1 puff INHALATION RT-BID PRN 12/06/19 12/06/19 History 100-50 Diskus] Lidocaine-Prilocaine Cream [Emla 1 applic TOPICAL MOWEFR 12/06/19 12/18/19 History Cream 2.5%/2.5%] Loratadine 10 mg PO DAILY 12/06/19 12/18/19 History Magnesium Chloride [Mag64] 64 mg PO DAILY 12/06/19 12/18/19 History Mometasone Furoate [Asmanex] 2 puff INHALATION RT-HS PRN 12/06/19 12/06/19 History Trimethobenzamide [Tigan] 300 mg PO TID PRN 12/07/19 12/18/19 History Darbepoetin Mike [Aranesp] 40 mcg SQ Q7D syringe 12/09/19 Rx Allergies Allergy/AdvReac Type Severity Reaction Status Date / Time adhesive tape Allergy Rash/Hives Verified 12/06/19 16:30 Sulfa (Sulfonamide Allergy Itching Verified 12/06/19 16:30 Antibiotics) tetracycline Allergy Nausea & Verified 12/06/19 16:30 Vomiting codeine AdvReac Nausea Verified 12/06/19 16:30 epoetin beta [From Mircera] AdvReac Unknown Verified 12/07/19 14:07 Surgical - Exam Gen. is a pleasant cooperative female in no acute distress. HEENT is normal cephalic, atraumatic, extraocular motion intact. Heart is regular in rate and rhythm. Lungs are decreased but clear bilaterally. Abdomen is soft flat nontender nondistended. Left upper extremity AV loop graft no palpable pulse or augmentation. Normal mood and affect. Cranial nerves II through XII grossly intact. Assessment and Plan Assessment: End-stage renal disease Thrombosed left upper extremity loop AV graft Plan: At this point we will plan for a fistulogram and thrombectomy. If there is no improvement, we will place a tunneled dialysis catheter. We will draw labs prior to the procedure. Given the hour, depending on labs will discuss with nephrology if she needs dialysis today versus awaiting her chair tomorrow at her outpatient center.
[2019-12-19] MEDS ORDERED: SODIUM CHLORIDE 0.9% 1,000 ML IV ONE (14:46)
[2019-12-19] MEDS ORDERED: ONDANSETRON 4 MG/2 ML VIAL ONE (14:52)
[2019-12-19] MEDS: ALTEPLASE 2 MG VIAL (CATHFLO) IV STA ×3 (14:55→16:41)
[2019-12-19 15:11] LABS: Basophils # (A) 0.1 k/uL (0-0.2); Basophils % (A) 1 %; Eosinophils # (A) 0.2 k/uL (0-0.7); Eosinophils % (A) 2 %; HCT 36.9 % (34.0-46.0); HGB 11.4 gm/dL (11.4-16.0); Hypochromasia Marked; Lymphocytes % (A) 29 %; MCH 33.1 pg (25.0-35.0); MCV 106.8 fL (80.0-100.0); Macrocytosis Moderate; Mean Platelet Volume 7.5; Monocytes # (A) 0.5 k/uL (0-1.0); Monocytes % (A) 7 %; Neutrophils # (A) 4.2 k/uL (1.3-7.7); Neutrophils % (A) 60 %; Platelet Count 205 k/uL (150-450); RBC 3.45 m/uL (3.80-5.40); RDW 13.8 % (11.5-15.5)
[2019-12-19] MEDS: fentaNYL (PF) 50 MCG/ML 2 ML AMP IVP ONE ×2 (15:18→16:19)
[2019-12-19] MEDS: MIDAZOLAM 2 MG/2 ML VIAL IVP ONE ×2 (15:18→15:39)
[2019-12-19] MEDS: LIDOCAINE 1% INJ 10MG/ML (20 ML MDV) SQ ONE ×2 (15:19→16:40)
[2019-12-19] MEDS ORDERED: ALTEPLASE 2 MG VIAL (CATHFLO) IV STA (15:21)
[2019-12-19 15:22] LABS: Calcium 8.3 mg/dL (8.4-10.2)
[2019-12-19 15:24] LABS: Potassium 5.8 mmol/L (3.5-5.1)
[2019-12-19] MEDS ORDERED: IOPAMIDOL-250 50ML BTL IV ONE (16:39)
[2019-12-19] MEDS ORDERED: ALPRAZolam 0.25 MG TAB PO PRN (17:02)
--- NOTE | 2019-12-19 17:21 | P.OP ---
Date of Procedure: 12/19/19 Description of Procedure: Preoperative diagnosis: [End-stage renal disease, thrombosed left upper extremity loop AV graft] Postoperative diagnosis: Same Procedure: [#1 left upper extremity fistulogram #2 pharmacal mechanical thrombectomy of a Jordanian penumbra 3 percutaneous transluminal balloon angioplasty venous anastomosis and through graft with 7 x 40 balloon] Surgeon: Sarahy Casas D.O. EBL: [Less than 10 mL] IV fluids: [Not measured] Urine output: [Not measured] Drains: [None] Complications: [None immediately apparent] Condition: [Stable to PACU] Operative indication and findings: [The patient is a 74-year-old female who went to dialysis yesterday and was found to have a thrombosed left upper extremity loop AV graft. She presented for a fistulogram today. Risks and benefits were discussed. She seemingly understood and willing to proceed.] Procedure in detail: [The patient was taken to the special suite and placed in supine position. The left upper extremity was prepped and draped in usual sterile fashion. A preprocedure timeout was performed, all parties were in agreement. TPA had previous been instilled into the graft itself. A cannulation needle was used and the graft was accessed. An 8-Jordanian sheath was placed a Seldinger technique. A guidewire and catheter were placed and the catheter was placed into the outflow vein with discomfort to be patent but very diminutive and small in nature. The catheter was withdrawn and TPA was instilled once more There was evidence of some damping of the proximal portion of her previously placed stent. A 7 x 40 balloon was used to open it. An 8 penumbra was used to excise thrombus. A venogram was performed revealing improvement of thrombus was adequate flow through the distal vessel. Distal to the previous stent there was an area of narrowing. The balloon was placed and it expanded without any evidence of waist. Attention was then turned towards the proximal inflow. A separate needlestick was performed and the catheter was placed toward the arterial anastomosis guidewire and catheter were placed and a brachial angiogram was performed. The 8 penumbra was passed and there was good adequate flow. There was palpable flow at that point through the graft itself. A fistulogram revealed good flow through the arterial anastomosis with no significant stenosis. There was good clearing through the graft at that point [id number] sutures of 4-0 Monocryl were placed at the sheath site and the sheaths were removed. There was palpable flow through the graft upon conclusion of the procedure. A previous needle site from previous dialysis access on Monday did have some infiltration surrounding it at the conclusion of the procedure ensuring flow through the graft. The patient was transferred to recovery in stable condition having tolerated the procedure well]
[2019-12-19] MEDS ORDERED: ALBUTEROL NEBULIZED 2.5 MG/3 ML INHALATION PRN (17:28)
[2019-12-19] MEDS ORDERED: NALOXONE 0.4 MG/ML 1 ML VIAL IV PRN (18:11)
[2019-12-19] MEDS ORDERED: ACETAMINOPHEN TAB 325 MG TAB PO PRN (18:11)
--- NOTE | 2019-12-19 18:11 | P.CONS ---
History of Present Illness - Reason for Consult Consult date: 12/19/19 Medical management Requesting physician: Sarahy Casas - History of Present Illness 74-year-old female with PMH of ESRD on hemodialysis, hypothyroidism, asthma presents to [facility] for surgery. She was found to have a thrombosed graft yesterday during dialysis. She underwent a fistulogram and thrombectomy with vascular surgery. [facility] physicians has been consulted for medical management of this patient. Patient was seen and examined after her procedure. Patient reports well- controlled pain in her right upper extremity at the site of the fistula. She denies any headache, lower extremity edema, nausea vomiting, fever chills, cough, chest, shortness breath, palpitations, changes in urination or bowel habits. No changes in appetite or weight. She denies any dizziness, numbness/weakness/tingling of the extremities. Her vital signs have been stable. CBC shows macrocytosis with MCV of only 6.8. CMP shows potassium of 5.8, bicarbonate of 21, BUN 39, creatinine 2.25. Review of Systems Pertinent positives and negatives as discussed in HPI, a complete review of systems was performed and all other systems are negative. Past Medical History Past Medical History: COPD, Osteoarthritis (OA), Renal Disease, Thyroid Disorder Additional Past Medical History / Comment(s): kidney stones and UTI,steroid injection October 2018 hx lymphedema, hx pulmonary fibrosis, hx graves,hx rt foot torn ligaments,hx kidney stones, hx osteoporosis,hypotension, chronic respiratory failure on 2 L nasal cannula at night & prn, vitamin D deficiency, hypocalcemia 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 MDRO Source:: Urine Past Surgical History: Bariatric Surgery Additional Past Surgical History / Comment(s): hx bariatric surgery-Kye En Y,lung biopsy,radioactive iodine-tx thyroid,rectal and bladder suspensions,vaginal surgery as a child,partha carpel tunnel,rt knee meniscus repair,D&C x3, left arm fistula 02/08/19 Past Anesthesia/Blood Transfusion Reactions: Previous Problems w/ Anesthesia, Postoperative Nausea & Vomiting (PONV) Additional Past Anesthesia/Blood Transfusion Reaction / Comm: decrease bp with anesthesia,no problems with prior blood transfusion Past Psychological History: No Psychological Hx Reported Past Alcohol Use History: None Reported Past Drug Use History: None Reported - Past Family History Father Family Medical History: Pulmonary Embolus Additional Family Medical History / Comment(s): . Mother Family Medical History: Cancer Additional Family Medical History / Comment(s): . Sister(s) Family Medical History: Cancer Additional Family Medical History / Comment(s): . Daughter(s) Additional Family Medical History / Comment(s): lymphedema in legs Brother(s) Family Medical History: Cancer Additional Family Medical History / Comment(s): skin cancer Medications and Allergies Home Medications Medication Instructions Recorded Confirmed Type Docusate [Colace] 200 mg PO DAILY@1500 08/23/18 12/19/19 History FLUoxetine HCL [PROzac] 20 mg PO BID 08/23/18 12/19/19 History Levothyroxine Sodium [Synthroid] 112 mcg PO MOTUWETHFRSA 08/23/18 12/19/19 History Levothyroxine Sodium [Synthroid] 224 mcg PO MURO 08/23/18 12/19/19 History Montelukast [Singulair] 10 mg PO HS 08/23/18 12/19/19 History Omeprazole 40 mg PO DAILY 11/19/18 12/19/19 History Ergocalciferol (Vitamin D2) 50,000 unit PO MOWEFR 01/31/19 12/19/19 History [Vitamin D2] Bumetanide [BUMEX] 1 mg PO DAILY 07/21/19 12/19/19 History Potassium Chloride ER [K-Dur 20] 20 meq PO BID 07/21/19 12/19/19 History Calcium Acetate [PhosLo] 667 mg PO DAILY 07/22/19 12/19/19 History Sodium Bicarbonate Tab 650 mg PO BID 07/22/19 12/19/19 History traMADol HCL [Ultram] 50 mg PO TID PRN 07/22/19 12/19/19 History Albuterol Nebulized [Ventolin 2.5 mg INHALATION RT-TID PRN 12/06/19 12/19/19 History Nebulized] Albuterol Sulfate [Proair Hfa] 2 puff INHALATION RT-Q4H PRN 12/06/19 12/19/19 History Docusate [Colace] 100 mg PO HS 12/06/19 12/19/19 History Fluticasone/Salmeterol [Advair 1 puff INHALATION RT-BID PRN 12/06/19 12/19/19 History 100-50 Diskus] Lidocaine-Prilocaine Cream [Emla 1 applic TOPICAL MOWEFR 12/06/19 12/19/19 History Cream 2.5%/2.5%] Loratadine 10 mg PO DAILY 12/06/19 12/19/19 History Magnesium Chloride [Mag64] 64 mg PO DAILY 12/06/19 12/19/19 History Mometasone Furoate [Asmanex] 2 puff INHALATION RT-HS PRN 12/06/19 12/19/19 History Trimethobenzamide [Tigan] 300 mg PO TID PRN 12/07/19 12/19/19 History Darbepoetin Mike [Aranesp] 40 mcg SQ Q7D syringe 12/09/19 12/19/19 Rx Allergies Allergy/AdvReac Type Severity Reaction Status Date / Time adhesive tape Allergy Rash/Hives Verified 12/06/19 16:30 Sulfa (Sulfonamide Allergy Itching Verified 12/06/19 16:30 Antibiotics) tetracycline Allergy Nausea & Verified 12/06/19 16:30 Vomiting codeine AdvReac Nausea Verified 12/06/19 16:30 epoetin beta [From Mircera] AdvReac Unknown Verified 12/07/19 14:07 Physical Exam Vitals: Vital Signs Temp Pulse Pulse Resp BP Pulse Ox 12/19/19 17:39 98.2 F 55 L 18 116/55 100 12/19/19 17:24 70 16 128/66 96 12/19/19 17:09 70 16 127/69 93 L 12/19/19 17:01 69 16 135/71 94 L 12/19/19 14:44 98.5 F 65 16 137/86 98 Intake and Output 12/19/19 12/19/19 12/19/19 06:59 14:59 22:59 Intake Total 50 375 Balance 50 375 Intake: IV 50 375 Other: # Voids 0 Weight 56.7 kg General: [non toxic], [no distress], [appears at stated age] Derm: [warm], [dry] Head: [atraumatic], [normocephalic], [symmetric] Eyes: [EOMI], [no lid lag], [anicteric sclera] Mouth: [no lip lesion], [mucus membranes moist] Cardiovascular: [S1S2 reg], [no murmur], [positive DP pulse bilateral], Lungs: [CTA bilateral], [no rhonchi, no rales] , [no accessory muscle use] Abdominal: [soft], [ nontender to palpation], [no guarding], [no appreciable organomegaly] Ext: [no gross muscle atrophy], [no edema], [no contractures], right upper extremity fistula intact, 2+ radial pulse right upper extremity Neuro: [ CN II-XI grossly intact], [no focal neuro deficits] Psych: [Alert], [oriented], [appropriate affect] Results CBC & Chem 7: 12/19/19 14:44 12/19/19 14:44 Labs: Abnormal Lab Results - Last 24 Hours (Table) 12/19/19 12/19/19 Range/Units 14:44 14:44 RBC 3.45 L (3.80-5.40) m/uL MCV 106.8 H (80.0-100.0) fL Potassium 5.8 H (3.5-5.1) mmol/L Carbon Dioxide 21 L (22-30) mmol/L BUN 39 H (7-17) mg/dL Creatinine 2.25 H (0.52-1.04) mg/dL Calcium 8.3 L (8.4-10.2) mg/dL Assessment and Plan Assessment: Hyperkalemia Metabolic acidosis ESRD on hemodialysis Macrocytosis Thrombosed left upper extremity loop AV graft COPD Depression Hypothyroidism Patient's potassium of 5.8. Specimen is hemolyzed. Plans to repeat potassium. Her bicarbonate is 21. This is likely related to ESRD. She will be restarted on sodium bicarbonate 650 mg by mouth twice a day. Repeat BMP is ordered for tomorrow morning. Nephrology has been consulted to resume hemodialysis. We will continue bumetanide, calcium acetate, darbepoetin. Patient will be changed to a renal diet. MCV is 106.8. Hemoglobin is within normal limits. This is likely related to ESRD. Her B12 and folic acid was within normal limits on 12/09/2019. Management as per vascular surgery. POD 0 left upper extremity fistulogram and thrombectomy. Albuterol neb as needed for shortness of breath or wheezing. Continue Singulair. Continue fluoxetine. Continue Synthroid. DVT prophylaxis: [SCD boots] Discussed with: [Patient and ] Anticipated discharge: [1-2 days] Anticipated discharge place: [Home] A total of [35] minutes was spent on the care of this complex patient more than 50% of the time was spent in counseling and care coordination. Patient is her decision maker if she can't make decisions for herself. Patient will be full code at this time. Thank you for this consult. Please call with any additional questions or concerns.
[2019-12-19] MEDS: DEXTROSE 50% SYRINGE 50 ML IVP STA ×2 (21:24→22:19)
[2019-12-19] MEDS: SODIUM CHLORIDE 0.9% 1,000 ML IV SCH (21:24)
[2019-12-19] MEDS: INSULIN REGULAR 100 UNIT/ML VIAL IV ONE ×2 (21:24→22:19)
[2019-12-19] MEDS: MONTELUKAST 10 MG TAB PO SCH (21:31)
[2019-12-19] MEDS: FLUoxetine HCL 20 MG CAP PO SCH (21:31)
[2019-12-19] MEDS: SODIUM BICARBONATE TAB 650 MG TAB PO SCH (21:31)
[2019-12-20 01:04] LABS: Calcium 7.7 mg/dL (8.4-10.2)
[2019-12-20 01:13] LABS: Potassium 6.1 mmol/L (3.5-5.1)
[2019-12-20] MEDS ORDERED: CALCIUM GLUCONATE 1 GM in SODIUM CHLORIDE 0.9% 100 ML IVPB ONE (01:27)
[2019-12-20] MEDS ORDERED: INSULIN REGULAR 100 UNIT/ML VIAL IV ONE (01:28)
[2019-12-20] MEDS ORDERED: SODIUM BICARB 8.4% 50 ML SYR (1 MEQ/ML) IV STA ×2 (01:29→01:40)
[2019-12-20] MEDS ORDERED: DEXTROSE 50% SYRINGE 50 ML IVP STA (01:31)
[2019-12-20 03:40] LABS: Glucose,Whole Blood 51 mg/dL (75-99)
[2019-12-20 03:48] LABS: Basophils # (A) 0.1 k/uL (0-0.2); Basophils % (A) 1 %; Eosinophils # (A) 0.3 k/uL (0-0.7); Eosinophils % (A) 4 %; HCT 28.3 % (34.0-46.0); Hypochromasia Slight; Lymphocytes # (A) 1.6 k/uL (1.0-4.8); Lymphocytes % (A) 25 %; MCH 34.1 pg (25.0-35.0); MCHC 32.5 g/dL (31.0-37.0); MCV 104.8 fL (80.0-100.0); Macrocytosis Moderate; Mean Platelet Volume 7.7; Monocytes # (A) 0.4 k/uL (0-1.0); Monocytes % (A) 6 %; Neutrophils # (A) 3.9 k/uL (1.3-7.7); Neutrophils % (A) 62 %; Platelet Count 194 k/uL (150-450); RDW 14.1 % (11.5-15.5); WBC 6.3 k/uL (3.8-10.6)
[2019-12-20 03:50] LABS: HGB 9.2 gm/dL (11.4-16.0)
[2019-12-20 03:54] LABS: Glucose,Whole Blood 78 mg/dL (75-99)
[2019-12-20 03:55] LABS: Calcium 8.3 mg/dL (8.4-10.2); Potassium 5.1 mmol/L (3.5-5.1)
[2019-12-20 04:48] LABS: Glucose,Whole Blood 123 mg/dL (75-99)
[2019-12-20 06:19] LABS: Glucose,Whole Blood 98 mg/dL (75-99)
[2019-12-20] MEDS: PANTOPRAZOLE 40 MG TABLET PO SCH (06:27)
[2019-12-20] MEDS: LEVOTHYROXINE 112 MCG TAB PO SCH (06:27)
[2019-12-20] MEDS ORDERED: ERGOCALCIFEROL 50,000 UNIT CAP PO SCH (09:00)
[2019-12-20] MEDS ORDERED: fentaNYL (PF) 50 MCG/ML 2 ML AMP IV ONE (10:47)
[2019-12-20] MEDS ORDERED: MIDAZOLAM 2 MG/2 ML VIAL IV ONE (10:47)
[2019-12-20] MEDS ORDERED: LIDOCAINE 1% INJ 10MG/ML (20 ML MDV) SQ ONE (10:47)
[2019-12-20] MEDS ORDERED: IV FLUID CONTINUATION 800 ML IV ONE (10:52)
--- NOTE | 2019-12-20 11:00 | P.NPCON ---
History of Present Illness - Reason for Consult end stage renal disease - History of Present Illness Reason for consultation: End-stage renal disease History of present illness: Patient is a 74-year-old female seen in renal consultation for end-stage renal disease. She is maintained on hemodialysis on Monday schedule via left upper extremity AV fistula. Patient's last hemodialysis was on Monday. She went for hemodialysis on Monday and was noted to have clotted AV fistula. She underwent declot yesterday. However the access did not function this morning. She is scheduled for permacath placement today. Denies chest pain or shortness of breath. No vomiting or diarrhea. Feels nauseated. No fever or chills. No other complaints. Vital signs are stable. General: The patient appeared well nourished and normally developed. HEENT: Head exam is unremarkable. Neck is without jugular venous distension. LUNGS: Lungs are clear to auscultation and percussion. Breath sounds decreased. HEART: Rate and Rhythm are regular. First and second heart sounds normal. No murmurs, rubs or gallops. ABDOMEN: Soft, nontender. EXTREMITITES: Chronic lymphedema. Past Medical History Past Medical History: COPD, Osteoarthritis (OA), Renal Disease, Thyroid Disorder Additional Past Medical History / Comment(s): kidney stones and UTI,steroid injection October 2018 hx lymphedema, hx pulmonary fibrosis, hx graves,hx rt foot torn ligaments,hx kidney stones, hx osteoporosis,hypotension, chronic respiratory failure on 2 L nasal cannula at night & prn, vitamin D deficiency, hypocalcemia History of Any Multi-Drug Resistant Organisms: CRE Date of last positivie culture/infection: 10/16/18 MDRO-CRE PER [facility] NOT [facility] MDRO Source:: Urine Past Surgical History: Bariatric Surgery Additional Past Surgical History / Comment(s): hx bariatric surgery-Kye En Y,lung biopsy,radioactive iodine-tx thyroid,rectal and bladder suspensions,vaginal surgery as a child,partha carpel tunnel,rt knee meniscus repair,D&C x3, left arm fistula 02/08/19 Past Anesthesia/Blood Transfusion Reactions: Previous Problems w/ Anesthesia, Postoperative Nausea & Vomiting (PONV) Additional Past Anesthesia/Blood Transfusion Reaction / Comment(s): decrease bp with anesthesia,no problems with prior blood transfusion Past Psychological History: No Psychological Hx Reported Past Alcohol Use History: None Reported Past Drug Use History: None Reported - Past Family History Father Family Medical History: Pulmonary Embolus Additional Family Medical History / Comment(s): . Mother Family Medical History: Cancer Additional Family Medical History / Comment(s): . Sister(s) Family Medical History: Cancer Additional Family Medical History / Comment(s): . Daughter(s) Additional Family Medical History / Comment(s): lymphedema in legs Brother(s) Family Medical History: Cancer Additional Family Medical History / Comment(s): skin cancer Medications and Allergies Home Medications Medication Instructions Recorded Confirmed Type Docusate [Colace] 200 mg PO DAILY@1500 08/23/18 12/19/19 History FLUoxetine HCL [PROzac] 20 mg PO BID 08/23/18 12/19/19 History Levothyroxine Sodium [Synthroid] 112 mcg PO MOTUWETHFRSA 08/23/18 12/19/19 History Levothyroxine Sodium [Synthroid] 224 mcg PO MURO 08/23/18 12/19/19 History Montelukast [Singulair] 10 mg PO HS 08/23/18 12/19/19 History Omeprazole 40 mg PO DAILY 11/19/18 12/19/19 History Ergocalciferol (Vitamin D2) 50,000 unit PO MOWEFR 01/31/19 12/19/19 History [Vitamin D2] Bumetanide [BUMEX] 1 mg PO DAILY 07/21/19 12/19/19 History Potassium Chloride ER [K-Dur 20] 20 meq PO BID 07/21/19 12/19/19 History Calcium Acetate [PhosLo] 667 mg PO DAILY 07/22/19 12/19/19 History Sodium Bicarbonate Tab 650 mg PO BID 07/22/19 12/19/19 History traMADol HCL [Ultram] 50 mg PO TID PRN 07/22/19 12/19/19 History Albuterol Nebulized [Ventolin 2.5 mg INHALATION RT-TID PRN 12/06/19 12/19/19 History Nebulized] Albuterol Sulfate [Proair Hfa] 2 puff INHALATION RT-Q4H PRN 12/06/19 12/19/19 History Docusate [Colace] 100 mg PO HS 12/06/19 12/19/19 History Fluticasone/Salmeterol [Advair 1 puff INHALATION RT-BID PRN 12/06/19 12/19/19 History 100-50 Diskus] Lidocaine-Prilocaine Cream [Emla 1 applic TOPICAL MOWEFR 12/06/19 12/19/19 History Cream 2.5%/2.5%] Loratadine 10 mg PO DAILY 12/06/19 12/19/19 History Magnesium Chloride [Mag64] 64 mg PO DAILY 12/06/19 12/19/19 History Mometasone Furoate [Asmanex] 2 puff INHALATION RT-HS PRN 12/06/19 12/19/19 History Trimethobenzamide [Tigan] 300 mg PO TID PRN 12/07/19 12/19/19 History Darbepoetin Mike [Aranesp] 40 mcg SQ Q7D syringe 12/09/19 12/19/19 Rx Allergies Allergy/AdvReac Type Severity Reaction Status Date / Time adhesive tape Allergy Rash/Hives Verified 12/06/19 16:30 Sulfa (Sulfonamide Allergy Itching Verified 12/06/19 16:30 Antibiotics) tetracycline Allergy Nausea & Verified 12/06/19 16:30 Vomiting codeine AdvReac Nausea Verified 12/06/19 16:30 epoetin beta [From Mircera] AdvReac Unknown Verified 12/07/19 14:07 Physical Exam Vitals: Vital Signs Temp Pulse Pulse Resp BP BP BP 12/20/19 08:00 98.0 F 63 18 120/58 12/20/19 03:48 97 F L 94 18 94/58 118/62 12/20/19 00:00 97.9 F 70 18 94/53 94/53 12/19/19 20:00 97.7 F 65 18 119/58 119/58 12/19/19 18:39 97.9 F 55 L 18 126/59 12/19/19 18:09 66 18 119/75 12/19/19 17:39 98.2 F 55 L 18 116/55 12/19/19 17:24 70 16 128/66 12/19/19 17:15 98.2 F 55 L 18 116/55 12/19/19 17:09 70 16 127/69 12/19/19 17:01 69 16 135/71 12/19/19 14:44 98.5 F 65 16 137/86 Pulse Ox 12/20/19 08:00 100 12/20/19 03:48 98 12/20/19 00:00 98 12/19/19 20:00 100 12/19/19 18:39 100 12/19/19 18:09 100 12/19/19 17:39 100 12/19/19 17:24 96 12/19/19 17:15 100 12/19/19 17:09 93 L 12/19/19 17:01 94 L 12/19/19 14:44 98 Intake and Output 12/19/19 12/20/19 12/20/19 22:59 06:59 14:59 Intake Total 495 Balance 495 Intake: IV 375 Oral 120 Other: Voiding Method Toilet Toilet Toilet # Voids 0 1 Weight 56.7 kg 56.8 kg Results - Lab Results Most recent lab results Calcium 8.3 mg/dL (8.4-10.2) L 12/20/19 03:19 12/20/19 03:19 12/20/19 03:19 Assessment and Plan Plan: Assessment: 1. End-stage renal disease maintained on hemodialysis on Monday ay schedule. 2. Malfunctioning/clotted AV fistula. 3. Hyperkalemia secondary to chronic kidney disease. 4. Anemia of chronic kidney disease maintained on Aranesp. 5. Chronic kidney disease mineral bone disease maintained on PhosLo. Plan: Scheduled for permacath placement today. Hemodialysis today. Thank you for the consultation. I will continue to follow the patient with you during her hospital stay.
--- NOTE | 2019-12-20 11:40 | P.OP ---
Date of Procedure: 12/20/19 Description of Procedure: Preoperative diagnosis: [End-stage renal disease, thrombosed AV graft] Postoperative diagnosis: Same Procedure: [#1 ultrasound-guided right internal jugular vein access #2 fluoroscopic assisted placement of 19 cm Tunneled dialysis catheter #3 18 minutes moderate conscious sedation] Surgeon: Sarahy Casas D.O. EBL: [Minimal] IV fluids: [See records] Urine output: [Not measured] Drains: [None] Complications: [None] Condition: [Stable] Operative indication and findings: [The patient is a 74-year-old female on dialysis for end-stage renal disease via a left upper extremity AV graft. It thrombosed. Attempts were made at fistulogram and opening the graft itself. Those were unsuccessful. She presents today for a tunneled dialysis catheter.] Procedure in detail: [Patient was brought to the operative suite and placed in supine position. The right neck and chest were prepped and draped in usual sterile fashion. A preprocedure timeout was performed, all parties were in agreement. This ultrasound was used and the right internal jugular vein was identified. The skin overlying was an S has 1% lidocaine plain. A cannulation needle was used and on first stick, there was return of dark venous, nonpulsatile blood. A guidewire was placed and and confirmed in good position in the inferior vena cava. At that point the proposed tunnel was anesthetized. A small cary in the skin was made in the anterior chest wall and the 19 cm previously flushed catheter was flushed and tunneled. The tract was then serially dilated over the wire with fluoroscopic guidance. A tear-away sheath was placed the inner dilator and wire were removed. The catheter was placed. The tear-away sheath was removed. Fluoroscopic imaging revealed good positioning in the cavoatrial junction. The catheter aspirated and flushed freely. The incision of the neck was reprepped and with interrupted sutures of 4-0 Vicryl. The catheter was sutured in place with 2-0 silk. Heparinized saline was placed. Dressings were placed. The patient was awakened from anesthesia and transferred to recovery in good condition. Post procedure chest x-ray is pending.]
--- NOTE | 2019-12-20 11:56 | XR ---
EXAMINATION TYPE: XR chest 1V portable DATE OF EXAM: 12/20/2019 COMPARISON: 04/20/2019 INDICATION: Catheter placement TECHNIQUE: Single frontal view of the chest is obtained. FINDINGS: The heart size is normal. The pulmonary vasculature is normal. The lungs are clear. Double-lumen catheter is placed on the right with the tips in the superior vena cava region. No pneum othorax is evident. IMPRESSION: 1. No pneumothorax post line placement
[2019-12-20] MEDS: SODIUM BICARBONATE TAB 650 MG TAB PO SCH ×2 (12:17→20:25)
[2019-12-20] MEDS: CALCIUM ACETATE 667 MG TAB PO SCH (12:17)
[2019-12-20] MEDS: FLUoxetine HCL 20 MG CAP PO SCH ×2 (12:17→20:25)
[2019-12-20] MEDS: BUMETANIDE 1 MG TAB PO SCH (12:17)
[2019-12-20] MEDS: LORATADINE 10 MG TAB PO SCH (12:18)
--- NOTE | 2019-12-20 14:22 | P.PN ---
Subjective Progress Note Date: 12/20/19 Principal diagnosis: Medical management Patient was seen and examined. No acute events overnight. She underwent ultrasound-guided right internal jugular vein dialysis catheter placement today. She was seen and examined after her procedure. Patient reports slight discomfort in her neck. She denies any chest pain, shortness of breath or palpitations. No nausea or vomiting. No fever or chills. Overnight, she had elevated potassium of 6.1 which was treated with sodium bicarb, calcium gluconate, insulin. This morning she was hypoglycemic to 40 which resolved with diet. Objective - Vital Signs Vital signs: Vital Signs Temp 98.0 F 12/20/19 08:00 Pulse 63 12/20/19 08:00 Resp 18 12/20/19 08:00 BP 120/58 12/20/19 08:00 Pulse Ox 100 12/20/19 08:00 Intake & Output 12/19/19 12/20/19 12/20/19 18:59 06:59 18:59 Intake Total 545 100 Balance 545 100 Weight 56.7 kg 56.8 kg Intake: IV 425 100 Oral 120 Other: Voiding Method Toilet Toilet # Voids 0 1 0 - Exam General: [non toxic], [no distress], [appears at stated age] Derm: [warm], [dry] Head: [atraumatic], [normocephalic], [symmetric], right internal jugular dialysis catheter intact Eyes: [EOMI], [no lid lag], [anicteric sclera] Mouth: [no lip lesion], [mucus membranes moist] Cardiovascular: [S1S2 reg], [no murmur], [positive DP pulse bilateral], Lungs: [CTA bilateral], [no rhonchi, no rales] , [no accessory muscle use] Abdominal: [soft], [ nontender to palpation], [no guarding], [no appreciable organomegaly] Ext: [no gross muscle atrophy], [no edema], [no contractures], right upper extremity fistula intact, 2+ radial pulse right upper extremity Neuro: [ CN II-XI grossly intact], [no focal neuro deficits] Psych: [Alert], [oriented], [appropriate affect] - Labs CBC & Chem 7: 12/20/19 03:19 12/20/19 03:19 Labs: Abnormal Lab Results - Last 24 Hours (Table) 12/19/19 12/19/19 12/19/19 Range/Units 14:44 14:44 18:27 RBC 3.45 L (3.80-5.40) m/uL Hgb (11.4-16.0) gm/dL Hct (34.0-46.0) % MCV 106.8 H (80.0-100.0) fL Sodium (137-145) mmol/L Potassium 5.8 H 5.5 H (3.5-5.1) mmol/L Chloride (98-107) mmol/L Carbon Dioxide 21 L (22-30) mmol/L BUN 39 H (7-17) mg/dL Creatinine 2.25 H (0.52-1.04) mg/dL Glucose (74-99) mg/dL POC Glucose (mg/dL) (75-99) mg/dL Calcium 8.3 L (8.4-10.2) mg/dL 12/20/19 12/20/19 12/20/19 Range/Units 00:35 03:19 03:19 RBC 2.70 L (3.80-5.40) m/uL Hgb 9.2 L D (11.4-16.0) gm/dL Hct 28.3 L (34.0-46.0) % MCV 104.8 H (80.0-100.0) fL Sodium 135 L (137-145) mmol/L Potassium 6.1 H* (3.5-5.1) mmol/L Chloride 108 H (98-107) mmol/L Carbon Dioxide (22-30) mmol/L BUN 40 H 39 H (7-17) mg/dL Creatinine 2.15 H 2.19 H (0.52-1.04) mg/dL Glucose 40 L* (74-99) mg/dL POC Glucose (mg/dL) (75-99) mg/dL Calcium 7.7 L 8.3 L (8.4-10.2) mg/dL 12/20/19 12/20/19 Range/Units 03:38 04:46 RBC (3.80-5.40) m/uL Hgb (11.4-16.0) gm/dL Hct (34.0-46.0) % MCV (80.0-100.0) fL Sodium (137-145) mmol/L Potassium (3.5-5.1) mmol/L Chloride (98-107) mmol/L Carbon Dioxide (22-30) mmol/L BUN (7-17) mg/dL Creatinine (0.52-1.04) mg/dL Glucose (74-99) mg/dL POC Glucose (mg/dL) 51 L 123 H (75-99) mg/dL Calcium (8.4-10.2) mg/dL Assessment and Plan Assessment: Hypoglycemia Acute blood loss anemia ESRD on hemodialysis Thrombosed left upper extremity loop AV graft COPD Depression Hypothyroidism Resolved: Hyperkalemia, metabolic acidosis Her blood glucoses morning was 40. Hypoglycemia resolved with diet. Likely related to insulin that she received overnight for hyperkalemia. Start regular Accu-Cheks with hypoglycemic precautions. Hemoglobin down from 11.4-9.2. MCV is 104.8. Macrocytosis is likely related to ESRD. Her B12 and folic acid was within normal limits on 12/09/2019. Repeat CBC tomorrow morning. Transfuse PRBCs if hemoglobin less than 7. Nephrology has been consulted to resume hemodialysis. We will continue bumetanide, calcium acetate, darbepoetin. Patient will be changed to a renal diet. Management as per vascular surgery. POD 1 left upper extremity fistulogram and thrombectomy. Albuterol neb as needed for shortness of breath or wheezing. Continue Singulair. Continue fluoxetine. Continue Synthroid. DVT prophylaxis: [SCD boots] Discussed with: [Patient and ] Anticipated discharge: [1-2 days] Anticipated discharge place: [Home] A total of [35] minutes was spent on the care of this complex patient more than 50% of the time was spent in counseling and care coordination. Patient is her decision maker if she can't make decisions for herself. Patient will be full code at this time. Thank you for this consult. Please call with any additional questions or concerns.
--- NOTE | 2019-12-20 14:47 | P.DS ---
Providers Date of admission: 12/20/19 12:08 Expected date of discharge: 12/20/19 Attending physician: Sarahy Casas DO Consults: 12/19/19 17:02 Consult Physician Routine Consulting Provider: Abbey Wheeler Consult Reason/Comments: esrd, post fistulagram Do you want consulting provider notified?: Yes 12/19/19 17:11 Consult Physician Routine Consulting Provider: Azalia Ha Consult Reason/Comments: med mgmnt Do you want consulting provider notified?: Yes Primary care physician: Stated None Hospital Course: The patient is a 74-year-old female with a history of end-stage renal disease on hemodialysis via left upper extremity loop AV graft. She presented to dialysis Monday and was found to have a thrombosed graft. She's had multiple interventions in the past. She was able to undergo dialysis on Monday, there was some area of infiltration but they were able to place a third needle and resume entirety of the treatment. She was recently hospitalized for increased swelling and did have an issue with infiltration last week at that time also. Her last visit in the office was October 14 of this year showing an ultrasound with patent graft and patent stents. Dr. Casas attempted a left upper extremity fistulogram with percutaneous transluminal balloon angioplasty venous anastomosis without success. Today she underwent a tunneled dialysis catheter for dialysis access. Nephrology would like her to get dialysis today and then said she is cleared for discharge. Assessment: EXAM: Patient was seen and examined at the bedside. Patient is alert and oriented in no acute distress. Heart regular rate and rhythm. Decreased lung sounds. Abdomen is soft and nontender. Left upper extremity AV loop graft with no palpable pulse. ASSESSMENT: 1. End-stage renal disease 2. Thrombosed left upper extremity loop AV graft 3. Status post tunneled dialysis catheter Health Concerns: End-stage renal disease Procedures: Left upper extremity fistulogram, pharmacal mechanical thrombectomy, percutaneous transluminal balloon angioplasty Tunneled dialysis catheter Patient Condition at Discharge: Fair Plan - Discharge Summary Discharge Rx Participant: No New Discharge Prescriptions: Continue Montelukast [Singulair] 10 mg PO HS FLUoxetine HCL [PROzac] 20 mg PO BID Docusate [Colace] 200 mg PO DAILY@1500 Levothyroxine Sodium [Synthroid] 224 mcg PO MURO Levothyroxine Sodium [Synthroid] 112 mcg PO MOTUWETHFRSA Omeprazole 40 mg PO DAILY Ergocalciferol (Vitamin D2) [Vitamin D2] 50,000 unit PO MOWEFR Potassium Chloride ER [K-Dur 20] 20 meq PO BID Bumetanide [BUMEX] 1 mg PO DAILY Sodium Bicarbonate Tab 650 mg PO BID Calcium Acetate [PhosLo] 667 mg PO DAILY traMADol HCL [Ultram] 50 mg PO TID PRN PRN Reason: Pain Albuterol Sulfate [Proair Hfa] 2 puff INHALATION RT-Q4H PRN PRN Reason: Shortness Of Breath Magnesium Chloride [Mag64] 64 mg PO DAILY Loratadine 10 mg PO DAILY Mometasone Furoate [Asmanex] 2 puff INHALATION RT-HS PRN PRN Reason: Shortness Of Breath Albuterol Nebulized [Ventolin Nebulized] 2.5 mg INHALATION RT-TID PRN PRN Reason: Shortness Of Breath Fluticasone/Salmeterol [Advair 100-50 Diskus] 1 puff INHALATION RT-BID PRN PRN Reason: Shortness Of Breath Lidocaine-Prilocaine Cream [Emla Cream 2.5%/2.5%] 1 applic TOPICAL MOWEFR Trimethobenzamide [Tigan] 300 mg PO TID PRN PRN Reason: Nausea Darbepoetin Mike [Aranesp] 40 mcg SQ Q7D syringe No Action Docusate [Colace] 100 mg PO HS Discharge Medication List Docusate [Colace] 200 mg PO DAILY@1500 08/23/18 [History] FLUoxetine HCL [PROzac] 20 mg PO BID 08/23/18 [History] Levothyroxine Sodium [Synthroid] 112 mcg PO MOTUWETHFRSA 08/23/18 [History] Levothyroxine Sodium [Synthroid] 224 mcg PO MURO 08/23/18 [History] Montelukast [Singulair] 10 mg PO HS 08/23/18 [History] Omeprazole 40 mg PO DAILY 11/19/18 [History] Ergocalciferol (Vitamin D2) [Vitamin D2] 50,000 unit PO MOWEFR 01/31/19 [History] Bumetanide [BUMEX] 1 mg PO DAILY 07/21/19 [History] Potassium Chloride ER [K-Dur 20] 20 meq PO BID 07/21/19 [History] Calcium Acetate [PhosLo] 667 mg PO DAILY 07/22/19 [History] Sodium Bicarbonate Tab 650 mg PO BID 07/22/19 [History] traMADol HCL [Ultram] 50 mg PO TID PRN 07/22/19 [History] Albuterol Nebulized [Ventolin Nebulized] 2.5 mg INHALATION RT-TID PRN 12/06/19 [History] Albuterol Sulfate [Proair Hfa] 2 puff INHALATION RT-Q4H PRN 12/06/19 [History] Docusate [Colace] 100 mg PO HS 12/06/19 [History] Fluticasone/Salmeterol [Advair 100-50 Diskus] 1 puff INHALATION RT-BID PRN 12/06/19 [History] Lidocaine-Prilocaine Cream [Emla Cream 2.5%/2.5%] 1 applic TOPICAL MOWEFR 12/06/19 [History] Loratadine 10 mg PO DAILY 12/06/19 [History] Magnesium Chloride [Mag64] 64 mg PO DAILY 12/06/19 [History] Mometasone Furoate [Asmanex] 2 puff INHALATION RT-HS PRN 12/06/19 [History] Trimethobenzamide [Tigan] 300 mg PO TID PRN 12/07/19 [History] Darbepoetin Mike [Aranesp] 40 mcg SQ Q7D syringe 12/09/19 [Rx] Follow up Appointment(s)/Referral(s): Sarahy Casas DO [STAFF PHYSICIAN] - 1 Week Abbey Wheeler MD [STAFF PHYSICIAN] - 1 Week Terrence Kwan MD [STAFF PHYSICIAN] - 1 Week Discharge Disposition: HOME SELF-CARE
[2019-12-20 15:56] LABS: Glucose,Whole Blood 106 mg/dL (75-99)
--- NOTE | 2019-12-20 16:31 | CT ---
EXAMINATION TYPE: CT brain wo con DATE OF EXAM: 12/20/2019 COMPARISON: 07/21/2019 HISTORY: syncopal episode Unenhanced CT of the brain was performed. The ventricles, basal cisterns and sulci overlying the cerebral convexities demonstrate mild enlargem ent. There is no evidence for intracranial hemorrhage or sulcal effacement. There is decreased attenuation about the periventricular white matter and deep white matter of both c erebral hemispheres, compatible with chronic small vessel ischemia. Differential diagnosis does inclu de demyelination. No mass effects are seen.No midline shift. Osseous calvarium is intact. If symptoms persist consider MRI. IMPRESSION: 1. Age related atrophic and chronic small vessel ischemic change without acute intracranial process s een at this time.
[2019-12-20 16:34] LABS: Basophils # (A) 0.1 k/uL (0-0.2); Basophils % (A) 1 %; Eosinophils # (A) 0.2 k/uL (0-0.7); Eosinophils % (A) 2 %; HCT 31.5 % (34.0-46.0); HGB 9.9 gm/dL (11.4-16.0); Hypochromasia Slight; Lymphocytes # (A) 2.1 k/uL (1.0-4.8); Lymphocytes % (A) 24 %; MCH 32.2 pg (25.0-35.0); MCHC 31.3 g/dL (31.0-37.0); Macrocytosis Slight; Mean Platelet Volume 7.4; Monocytes # (A) 0.4 k/uL (0-1.0); Monocytes % (A) 4 %; Neutrophils # (A) 5.6 k/uL (1.3-7.7); Neutrophils % (A) 67 %; Platelet Count 216 k/uL (150-450); RBC 3.06 m/uL (3.80-5.40); RDW 13.9 % (11.5-15.5); WBC 8.4 k/uL (3.8-10.6)
[2019-12-20 17:10] LABS: Calcium 8.1 mg/dL (8.4-10.2); Potassium 4.2 mmol/L (3.5-5.1)
[2019-12-20] MEDS: SODIUM CHLORIDE 0.9% 1,000 ML IV SCH (17:26)
[2019-12-20] MEDS: traMADol 50 MG TAB PO PRN (18:57)
[2019-12-20 19:42] LABS: Glucose,Whole Blood 112 mg/dL (75-99)
[2019-12-20] MEDS: MONTELUKAST 10 MG TAB PO SCH (20:25)
[2019-12-20] MEDS ORDERED: ONDANSETRON 4 MG/2 ML VIAL IVP STA (22:08)
[2019-12-20 23:38] VITALS: RESP 18
[2019-12-21 02:24] LABS: Glucose,Whole Blood 103 mg/dL (75-99)
[2019-12-21] MEDS: traMADol 50 MG TAB PO PRN ×2 (03:49→08:19)
[2019-12-21] MEDS: PANTOPRAZOLE 40 MG TABLET PO SCH (06:10)
[2019-12-21] MEDS: LEVOTHYROXINE 112 MCG TAB PO SCH (06:10)
[2019-12-21 06:27] LABS: Glucose,Whole Blood 107 mg/dL (75-99)
[2019-12-21 07:59] LABS: Basophils # (A) 0.1 k/uL (0-0.2); Basophils % (A) 1 %; Eosinophils # (A) 0.2 k/uL (0-0.7); Eosinophils % (A) 4 %; HCT 31.2 % (34.0-46.0); HGB 9.9 gm/dL (11.4-16.0); Hypochromasia Slight; Lymphocytes # (A) 1.5 k/uL (1.0-4.8); Lymphocytes % (A) 26 %; MCH 33.1 pg (25.0-35.0); MCHC 31.8 g/dL (31.0-37.0); MCV 103.9 fL (80.0-100.0); Macrocytosis Slight; Mean Platelet Volume 7.5; Monocytes # (A) 0.3 k/uL (0-1.0); Monocytes % (A) 5 %; Neutrophils # (A) 3.6 k/uL (1.3-7.7); Neutrophils % (A) 62 %; Platelet Count 145 k/uL (150-450); RDW 13.8 % (11.5-15.5); WBC 5.8 k/uL (3.8-10.6)
[2019-12-21 08:08] LABS: Calcium 8.2 mg/dL (8.4-10.2); Potassium 5.1 mmol/L (3.5-5.1)
[2019-12-21] MEDS: SODIUM BICARBONATE TAB 650 MG TAB PO SCH (08:20)
[2019-12-21] MEDS: CALCIUM ACETATE 667 MG TAB PO SCH (08:20)
[2019-12-21] MEDS: FLUoxetine HCL 20 MG CAP PO SCH (08:20)
[2019-12-21] MEDS: LORATADINE 10 MG TAB PO SCH (08:20)
[2019-12-21] MEDS: BUMETANIDE 1 MG TAB PO SCH (08:20)
[2019-12-21 10:09] VITALS: BP 95/52; PULSE 68; TEMP 97.7
--- NOTE | 2019-12-21 10:09 | P.PN ---
Subjective Progress Note Date: 12/21/19 Principal diagnosis: Medical management Patient was seen and examined. No acute events overnight. She underwent ultrasound-guided right internal jugular vein dialysis catheter placement POD 1. Yesterday, cold stroke was called for apparent syncopal episode while using the washroom. She completed dialysis after her syncopal episode without any complications. Patient reports feeling fatigued but she denies any dizziness, chest pain, shortness of breath or palpitations. No nausea or vomiting. No fever or chills. Objective - Vital Signs Vital signs: Vital Signs Temp 97.8 F 12/21/19 04:00 Pulse 66 12/21/19 04:00 Resp 18 12/21/19 04:00 BP 115/65 12/21/19 04:00 Pulse Ox 96 12/21/19 04:00 Intake & Output 12/20/19 12/21/19 12/21/19 18:59 06:59 18:59 Intake Total 100 360 220 Output Total 0 700 Balance 100 -340 220 Weight 55.2 kg Intake: IV 100 10 Invasive Line 2 10 Oral 350 220 Output: Urine 700 Hemodialysis 0 Other: Voiding Method Toilet Toilet # Voids 1 1 - Exam General: [non toxic], [no distress], [appears at stated age] Derm: [warm], [dry] Head: [atraumatic], [normocephalic], [symmetric], right internal jugular dialysis catheter in place Eyes: [EOMI], [no lid lag], [anicteric sclera] Mouth: [no lip lesion], [mucus membranes moist] Cardiovascular: [S1S2 reg], [no murmur], [positive DP pulse bilateral], Lungs: [CTA bilateral], [no rhonchi, no rales] , [no accessory muscle use] Abdominal: [soft], [ nontender to palpation], [no guarding], [no appreciable organomegaly] Ext: [no gross muscle atrophy], [no edema], [no contractures], right upper extremity fistula intact, 2+ radial pulse right upper extremity Neuro: [no focal neuro deficits] Psych: [Alert], [oriented], [appropriate affect] - Labs CBC & Chem 7: 12/21/19 07:45 12/21/19 07:45 Labs: Abnormal Lab Results - Last 24 Hours (Table) 12/20/19 12/20/19 12/20/19 Range/Units 15:54 16:08 16:25 RBC 3.06 L (3.80-5.40) m/uL Hgb 9.9 L (11.4-16.0) gm/dL Hct 31.5 L (34.0-46.0) % MCV 103.0 H (80.0-100.0) fL Plt Count (150-450) k/uL Sodium 135 L (137-145) mmol/L BUN 22 H (7-17) mg/dL Creatinine 1.32 H (0.52-1.04) mg/dL Glucose 100 H (74-99) mg/dL POC Glucose (mg/dL) 106 H (75-99) mg/dL Calcium 8.1 L (8.4-10.2) mg/dL 12/20/19 12/21/19 12/21/19 Range/Units 19:41 02:03 06:22 RBC (3.80-5.40) m/uL Hgb (11.4-16.0) gm/dL Hct (34.0-46.0) % MCV (80.0-100.0) fL Plt Count (150-450) k/uL Sodium (137-145) mmol/L BUN (7-17) mg/dL Creatinine (0.52-1.04) mg/dL Glucose (74-99) mg/dL POC Glucose (mg/dL) 112 H 103 H 107 H (75-99) mg/dL Calcium (8.4-10.2) mg/dL 12/21/19 12/21/19 Range/Units 07:45 07:45 RBC 3.00 L (3.80-5.40) m/uL Hgb 9.9 L (11.4-16.0) gm/dL Hct 31.2 L (34.0-46.0) % MCV 103.9 H (80.0-100.0) fL Plt Count 145 L (150-450) k/uL Sodium 134 L (137-145) mmol/L BUN 19 H (7-17) mg/dL Creatinine 1.61 H (0.52-1.04) mg/dL Glucose 130 H (74-99) mg/dL POC Glucose (mg/dL) (75-99) mg/dL Calcium 8.2 L (8.4-10.2) mg/dL Assessment and Plan Assessment: Syncopal episode Acute blood loss anemia ESRD on hemodialysis Thrombosed left upper extremity loop AV graft COPD Depression Hypothyroidism Resolved: Hyperkalemia, metabolic acidosis, hypoglycemia CT brain was negative for acute changes. CBC showed anemia that was stable. BMP showed no significant electrolyte abnormalities. Her syncopal episode is likely vasovagal in nature. No concerns for seizure. reports previous episodes at home that was similar to this event especially when she uses the washroom. Hemoglobin down from 11.4-9.2, 9.9. MCV is 103.9. Macrocytosis is likely related to ESRD. Her B12 and folic acid was within normal limits on 12/09/2019. Repeat CBC tomorrow morning. Transfuse PRBCs if hemoglobin less than 7. Nephrology has been consulted to resume hemodialysis. We will continue bumetanide, calcium acetate, darbepoetin. Patient will be changed to a renal diet. Management as per vascular surgery. POD 2 left upper extremity fistulogram and thrombectomy. Albuterol neb as needed for shortness of breath or wheezing. Continue Singulair. Continue fluoxetine. Continue Synthroid. [Patient feels comfortable going home today. We will wait for her to arrive. Patient is encouraged to increase ambulation. Plans on DC home today if patient is able to ambulate comfortably.]
[2019-12-21] MEDS: SODIUM CHLORIDE 0.9% 1,000 ML IV SCH (10:20)
--- NOTE | 2019-12-21 10:37 | P.PN ---
Subjective Progress Note Date: 12/21/19 Patient seen and examined. History from yesterday reviewed. She feels better this morning. Just tired. Overall no issues otherwise. She has been up since feeling faint yesterday. Right IJ tunneled dialysis catheter in place. Clean, dry, intact. End-stage renal disease Okay for discharge at this point given she is back at her baseline. Home care discussed with the patient who seemingly understands and is willing to proceed. Follow-up with Dr. Montanez in the next 2 weeks Objective - Vital Signs Vital signs: Vital Signs Temp 97.7 F 12/21/19 08:00 Pulse 68 12/21/19 08:00 Resp 18 12/21/19 08:00 BP 95/52 12/21/19 08:00 Pulse Ox 97 12/21/19 08:00 Intake & Output 12/20/19 12/21/19 12/21/19 18:59 06:59 18:59 Intake Total 100 360 220 Output Total 0 700 Balance 100 -340 220 Weight 55.2 kg Intake: IV 100 10 Invasive Line 2 10 Oral 350 220 Output: Urine 700 Hemodialysis 0 Other: Voiding Method Toilet Toilet # Voids 1 1 - Labs CBC & Chem 7: 12/21/19 07:45 12/21/19 07:45 Labs: Abnormal Lab Results - Last 24 Hours (Table) 12/20/19 12/20/19 12/20/19 Range/Units 15:54 16:08 16:25 RBC 3.06 L (3.80-5.40) m/uL Hgb 9.9 L (11.4-16.0) gm/dL Hct 31.5 L (34.0-46.0) % MCV 103.0 H (80.0-100.0) fL Plt Count (150-450) k/uL Sodium 135 L (137-145) mmol/L BUN 22 H (7-17) mg/dL Creatinine 1.32 H (0.52-1.04) mg/dL Glucose 100 H (74-99) mg/dL POC Glucose (mg/dL) 106 H (75-99) mg/dL Calcium 8.1 L (8.4-10.2) mg/dL 12/20/19 12/21/19 12/21/19 Range/Units 19:41 02:03 06:22 RBC (3.80-5.40) m/uL Hgb (11.4-16.0) gm/dL Hct (34.0-46.0) % MCV (80.0-100.0) fL Plt Count (150-450) k/uL Sodium (137-145) mmol/L BUN (7-17) mg/dL Creatinine (0.52-1.04) mg/dL Glucose (74-99) mg/dL POC Glucose (mg/dL) 112 H 103 H 107 H (75-99) mg/dL Calcium (8.4-10.2) mg/dL 12/21/19 12/21/19 Range/Units 07:45 07:45 RBC 3.00 L (3.80-5.40) m/uL Hgb 9.9 L (11.4-16.0) gm/dL Hct 31.2 L (34.0-46.0) % MCV 103.9 H (80.0-100.0) fL Plt Count 145 L (150-450) k/uL Sodium 134 L (137-145) mmol/L BUN 19 H (7-17) mg/dL Creatinine 1.61 H (0.52-1.04) mg/dL Glucose 130 H (74-99) mg/dL POC Glucose (mg/dL) (75-99) mg/dL Calcium 8.2 L (8.4-10.2) mg/dL
[2019-12-22] MEDS ORDERED: LEVOTHYROXINE 112 MCG TAB PO SCH (06:30)
--- NOTE | 2019-12-23 07:25 | IR ---
Fluoroscopy HISTORY: Clotted shunt 0.4 minutes fluoroscopy time supplied to the referring clinician. 14 intraoperative C-arm images doc ument the procedure. See dictated report from vascular surgery.
--- NOTE | 2019-12-23 15:20 | IR ---
Fluoroscopy HISTORY: Clotted AV shunting 16.5 minutes fluoroscopy time, 1181 images Fluoroscopic support supplied to the referring clinician. See dictated report vascular surgery.
[2019-12-25] MEDS ORDERED: DARBEPOETIN ALFA 40 MCG/0.4 ML SYRINGE SQ SCH (09:00)
== END 2019-12-21 11:01 | disposition home or self-care (01) | DRG 252 ==
LOC: OR 14:08 → 3SCARD 16:38 → OR 12-20 11:24 → 3SCARD 12-20 12:08
PROVIDERS: ADMIT Surgery; ATTEND Surgery
PROC: 03783ZZ Dilation of Left Brachial Artery, Percutaneous Approach (ICD-10-PCS; principal; 2019-12-19 08:20)
PROC: B51W1ZZ Fluoroscopy of Dialysis Shunt/Fistula using Low Osmolar Contrast (ICD-10-PCS; principal; 2019-12-19 08:20)
PROC: 03C83ZZ Extirpation of Matter from Left Brachial Artery, Percutaneous Approach (ICD-10-PCS; principal; 2019-12-19 08:20)
PROC: 3E05317 Introduction of Other Thrombolytic into Peripheral Artery, Percutaneous Approach (ICD-10-PCS; principal; 2019-12-19 08:20)
PROC: 5A1D70Z Performance of Urinary Filtration, Intermittent, Less than 6 Hours Per Day (ICD-10-PCS; 2019-12-20 11:10)
PROC: 02HV33Z Insertion of Infusion Device into Superior Vena Cava, Percutaneous Approach (ICD-10-PCS; 2019-12-20 11:10)
PROC: B5181ZA Fluoroscopy of Superior Vena Cava using Low Osmolar Contrast, Guidance (ICD-10-PCS; 2019-12-20 11:10)
PROC: 0JH63XZ Insertion of Tunneled Vascular Access Device into Chest Subcutaneous Tissue and Fascia, Percutaneous Approach (ICD-10-PCS; 2019-12-20 11:10)
DX: T82.868A Thrombosis due to vascular prosthetic devices, implants and grafts, initial encounter (principal); N18.6 End stage renal disease; D62 Acute posthemorrhagic anemia; J96.10 Chronic respiratory failure, unspecified whether with hypoxia or hypercapnia; E87.2 Acidosis; Y83.2 Surgical operation with anastomosis, bypass or graft as the cause of abnormal reaction of the patient, or of later complication, without mention of misadventure at the time of the procedure; E03.9 Hypothyroidism, unspecified; D63.1 Anemia in chronic kidney disease; E87.5 Hyperkalemia; F32.9 Major depressive disorder, single episode, unspecified; N25.0 Renal osteodystrophy; J44.9 Chronic obstructive pulmonary disease, unspecified; D75.89 Other specified diseases of blood and blood-forming organs; E16.2 Hypoglycemia, unspecified; N18.9 Chronic kidney disease, unspecified; J84.10 Pulmonary fibrosis, unspecified; Z79.899 Other long term (current) drug therapy; Z79.890 Hormone replacement therapy; Z87.442 Personal history of urinary calculi; Z99.2 Dependence on renal dialysis; Z80.8 Family history of malignant neoplasm of other organs or systems
CPT/HCPCS: 36558; 36905; 70450; 71045; 76937; 77001; 80048; 84132; 85025; 90935

== ENCOUNTER → 2020-04-28 | Day surgery (SDC) | payer MEDICARE ==
[~2020-04-28] MED LIST changes: +HEPARIN SODIUM 1,000 UN/ML (10ML VL) IV ONE; -LACTATED RINGERS 1,000 ML IV SCH; -LIDOCAINE 1% 20 ML VIAL (10MG/ML) FOR IV START INTRADERMA PRN; +LIDOCAINE 1% INJ 10MG/ML (20 ML MDV) SQ ONE; +MIDAZOLAM 2 MG/2 ML VIAL IV ONE; -MORPHINE SULFATE 2 MG/ML SYRINGE IV PRN; -ONDANSETRON 4 MG/2 ML VIAL IVP PRN; +SODIUM CHLORIDE 0.9% 500 ML 500 ML IV ONE; +fentaNYL (PF) 50 MCG/ML 2 ML AMP IV ONE
[2020-04-28 09:34] VITALS: RESP 18; TEMP 98
--- NOTE | 2020-04-28 10:50 | P.OP ---
Date of Procedure: 04/28/20 Preoperative Diagnosis: ESRD on HD, Malfunctioning right tunneled catheter Postoperative Diagnosis: Same Procedure(s) Performed: Right sided tunneled hemodialysis catheter exchange under flouroscopic guidance Moderate conscious sedation x 32 minutes Anesthesia: local Surgeon: Alejandro Montanez Estimated Blood Loss (ml): 20 Pathology: none sent Condition: stable Disposition: PACU Indications for Procedure: 74-year-old female with history of end-stage renal disease on hemodialysis via a right-sided tunneled catheter presents to the hospital for exchange of the catheter due to malfunction. Patient has had issues with dialysis via the catheter and has had TPA infused multiple times with minimal improvement. She presents today for guidewire exchange. Operative Findings: Catheter is unable to be flushed or drawn Description of Procedure: After written and informed consent was obtained from the patient and all risks benefits and complications were described the patient was brought to the technical laboratory asst and laid in a supine position. The area of the right chest and neck were prepped and draped in the usual sterile fashion. Local anesthetic was infused at the right neck overlying the catheter and a small incision with an 11 blade scalpel was made and dissection was carried down to the catheter. The catheter was then grasped with a stat and cut. Attention was then placed to the cuff. Local was infused around the cuff and dissection was carried around it circumferentially and the old catheter was removed. Gloves were then changed and an .035 glidewire was placed under flouroscopic guidance into the IVC and old catheter was removed. The large dilator was then placed for hemostasis and attention was placed to tunnel the new catheter. Local was infused into the chest wall just medial to the previous site and a small incision was made with an 11 blade scalpel and a 19cm curved Palidrome catheter was then tunneled to the neck. The dilator was removed and replaced with a break away sheath and catheter was placed and sheath was removed. The catheter ameya and flushed well and was heplocked. The neck incision site was then closed with 4-0 vicryl suture and catheter was secured with nylon suture. The area was then cleansed and dressings were placed. The patient tolerated the procedure well and was sent to recovery. Plan - Discharge Summary New Discharge Prescriptions: No Action RX: Montelukast [Singulair] 10 mg PO HS RX: FLUoxetine HCL [PROzac] 20 mg PO BID RX: Docusate [Colace] 200 mg PO DAILY@1500 RX: Levothyroxine Sodium [Synthroid] 224 mcg PO MURO RX: Levothyroxine Sodium [Synthroid] 112 mcg PO MOTUWETHFRSA RX: Omeprazole 40 mg PO DAILY RX: Ergocalciferol (Vitamin D2) [Vitamin D2] 50,000 unit PO MOWEFR RX: Potassium Chloride ER [K-Dur 20] 20 meq PO BID RX: Sodium Bicarbonate Tab 650 mg PO BID RX: traMADol HCL [Ultram] 50 mg PO TID PRN PRN Reason: Pain RX: Albuterol Sulfate [Proair Hfa] 2 puff INHALATION RT-Q4H PRN PRN Reason: Shortness Of Breath RX: Magnesium Chloride [Mag64] 64 mg PO DAILY RX: Loratadine 10 mg PO DAILY RX: Docusate [Colace] 100 mg PO HS RX: Mometasone Furoate [Asmanex] 2 puff INHALATION RT-HS PRN PRN Reason: Shortness Of Breath RX: Albuterol Nebulized [Ventolin Nebulized] 2.5 mg INHALATION RT-TID PRN PRN Reason: Shortness Of Breath RX: Fluticasone/Salmeterol [Advair 100-50 Diskus] 1 puff INHALATION RT-BID PRN PRN Reason: Shortness Of Breath RX: Lidocaine-Prilocaine Cream [Emla Cream 2.5%/2.5%] 1 applic TOPICAL MOWEFR RX: Trimethobenzamide [Tigan] 300 mg PO TID PRN PRN Reason: Nausea RX: Azelastine HCl 137 mcg NS DAILY traZODone HCL [Desyrel] 50 mg PO HS Benazepril/Hydrochlorothiazide [Benazepril-Hctz 20-25 mg Tab] 1 each PO DAILY Aspirin [Children's Aspirin] 81 mg PO DAILY Discharge Medication List RX: Docusate [Colace] 200 mg PO DAILY@1500 08/23/18 [History] RX: FLUoxetine HCL [PROzac] 20 mg PO BID 08/23/18 [History] RX: Levothyroxine Sodium [Synthroid] 112 mcg PO MOTUWETHFRSA 08/23/18 [History] RX: Levothyroxine Sodium [Synthroid] 224 mcg PO MURO 08/23/18 [History] RX: Montelukast [Singulair] 10 mg PO HS 08/23/18 [History] RX: Omeprazole 40 mg PO DAILY 11/19/18 [History] RX: Ergocalciferol (Vitamin D2) [Vitamin D2] 50,000 unit PO MOWEFR 01/31/19 [History] RX: Potassium Chloride ER [K-Dur 20] 20 meq PO BID 07/21/19 [History] RX: Sodium Bicarbonate Tab 650 mg PO BID 07/22/19 [History] RX: traMADol HCL [Ultram] 50 mg PO TID PRN 07/22/19 [History] RX: Albuterol Nebulized [Ventolin Nebulized] 2.5 mg INHALATION RT-TID PRN 12/06/19 [History] RX: Albuterol Sulfate [Proair Hfa] 2 puff INHALATION RT-Q4H PRN 12/06/19 [History] RX: Docusate [Colace] 100 mg PO HS 12/06/19 [History] RX: Fluticasone/Salmeterol [Advair 100-50 Diskus] 1 puff INHALATION RT-BID PRN 12/06/19 [History] RX: Lidocaine-Prilocaine Cream [Emla Cream 2.5%/2.5%] 1 applic TOPICAL MOWEFR 12/06/19 [History] RX: Loratadine 10 mg PO DAILY 12/06/19 [History] RX: Magnesium Chloride [Mag64] 64 mg PO DAILY 12/06/19 [History] RX: Mometasone Furoate [Asmanex] 2 puff INHALATION RT-HS PRN 12/06/19 [History] RX: Trimethobenzamide [Tigan] 300 mg PO TID PRN 12/07/19 [History] Aspirin [Children's Aspirin] 81 mg PO DAILY 04/28/20 [History] Benazepril/Hydrochlorothiazide [Benazepril-Hctz 20-25 mg Tab] 1 each PO DAILY 04/28/20 [History] RX: Azelastine HCl 137 mcg NS DAILY 04/28/20 [History] traZODone HCL [Desyrel] 50 mg PO HS 04/28/20 [History] Follow up Appointment(s)/Referral(s): Alejandro Montanez DO [STAFF PHYSICIAN] - 4 Weeks Discharge Disposition: HOME SELF-CARE
[2020-04-28 11:42] VITALS: BP 118/62; PULSE 64
--- NOTE | 2020-04-29 16:22 | IR ---
EXAMINATION TYPE: IR cvc insert central tunneled DATE OF EXAM: 04/28/2020 COMPARISON: NONE HISTORY: Renal failure, not working catheter TECHNIQUE: Fluoroscopy. FINDINGS: Fluoroscopic guidance was provided during procedure for performing physician. A total of 1.4 minutes of fluoroscopic time was utilized during the procedure and 150 images were acquired. Plea se see operative report for additional details. IMPRESSION: As Above.
== END | disposition home or self-care (01) ==
LOC: CATHCVL 08:59
PROVIDERS: ATTEND Surgery
DX: T82.49XA Other complication of vascular dialysis catheter, initial encounter (principal); N18.6 End stage renal disease; M19.90 Unspecified osteoarthritis, unspecified site; G43.909 Migraine, unspecified, not intractable, without status migrainosus; E05.00 Thyrotoxicosis with diffuse goiter without thyrotoxic crisis or storm; J44.9 Chronic obstructive pulmonary disease, unspecified; Z79.890 Hormone replacement therapy; Z79.82 Long term (current) use of aspirin; Z79.899 Other long term (current) drug therapy; Z88.5 Allergy status to narcotic agent; Z88.2 Allergy status to sulfonamides; Z88.1 Allergy status to other antibiotic agents; Z91.048 Other nonmedicinal substance allergy status; I89.0 Lymphedema, not elsewhere classified; Z87.01 Personal history of pneumonia (recurrent); Z98.84 Bariatric surgery status; Z90.49 Acquired absence of other specified parts of digestive tract; Z90.710 Acquired absence of both cervix and uterus; Z98.890 Other specified postprocedural states; Z98.51 Tubal ligation status
CPT/HCPCS: 36581 ×2; 77001; C1769 ×2; C1750; J2250; J0690; J2001; J3010; J1644

== ENCOUNTER → 2020-05-28 | Outpatient (CLI) | payer MEDICARE ==
[2020-05-28 14:51] LABS: T4, Free (Free Thyroxine) 1.3 ng/dL (0.80-1.80)
== END | disposition home or self-care (01) ==
LOC: LABWHC1 09:37
PROVIDERS: ATTEND Internal Medicine
DX: M81.0 Age-related osteoporosis without current pathological fracture (principal); E55.9 Vitamin D deficiency, unspecified; E89.0 Postprocedural hypothyroidism
CPT/HCPCS: 36415; 82306; 84075; 84439; 84443

== ENCOUNTER → 2020-07-29 | Outpatient (CLI) | payer MEDICARE ==
--- NOTE | 2020-07-29 16:53 | XR ---
EXAMINATION TYPE: XR chest 2V DATE OF EXAM: 07/29/2020 COMPARISON: 12/20/2019 HISTORY: 75-year-old female R05, cough TECHNIQUE: Frontal and lateral views FINDINGS: Left-sided double-lumen hemodialysis catheter. Tips in the right atrium. Heart normal size. Elongatio n/tortuosity of the thoracic aorta. Mild hyperinflation. Increased retrosternal clear space. Surgical clips in the upper abdomen on both sides. Very minimal patchy density at the periphery of the right base. Otherwise, no consolidation or pleural effusion seen. IMPRESSION: COPD. Minimal patchy atelectasis versus early infiltrate at the periphery of the right base. Follow-u p can be considered.
== END | disposition home or self-care (01) ==
LOC: RADXRMAIN 14:12
PROVIDERS: ATTEND Nurse Practitioner Family
DX: J44.9 Chronic obstructive pulmonary disease, unspecified (principal)
CPT/HCPCS: 71046

== ENCOUNTER 2021-01-25 12:15 | Emergency (ER) | payer MEDICARE ==
--- NOTE | 2021-01-25 12:46 | ED ---
General Adult HPI - General Chief complaint: Chest Pain Stated complaint: chest pain, SOB Time Seen by Provider: 01/25/21 12:44 Source: patient, family Mode of arrival: ambulatory Limitations: no limitations - History of Present Illness Initial comments: Patient presents to the ED with her for evaluation. Patient has numerous complaints. Patient states that she has felt generally weak and dyspneic for the past couple of days. Patient also states that she has had diffuse myalgias, as well as diffuse chest pain for the past couple of days. Patient also states that she has had a cough and runny nose for the past 2 days. Patient's states that the patient had a syncopal episode while urinating on the toilet last night, and he states that this has happened to her numerous times in the past. Patient denies trauma/injury/fall, fever or chills, headache, focal numbness/weakness/neuro deficit, visual changes, pleuritic chest pain, hemoptysis, palpitations, nausea/vomiting/diarrhea, abdominal pain, bloody or melanotic stool, dysuria or urinary symptoms, increased leg swelling (patient states that she has chronic lower extremity lymphedema), or any other symptoms or complaints. Patient states that she gets dialyzed Monday/Monday/Monday, and she states that she is due for dialysis today. Patient is fully vaccinated against Covid. - Related Data Home Medications Medication Instructions Recorded Confirmed Docusate [Colace] 200 mg PO DAILY@1500 08/23/18 01/25/21 FLUoxetine HCL [PROzac] 20 mg PO BID 08/23/18 01/25/21 Levothyroxine Sodium [Synthroid] 112 mcg PO MOTUWETHFRSA 08/23/18 01/25/21 Levothyroxine Sodium [Synthroid] 224 mcg PO MURO 08/23/18 01/25/21 Montelukast [Singulair] 10 mg PO HS 08/23/18 01/25/21 Omeprazole 40 mg PO DAILY 11/19/18 01/25/21 Ergocalciferol (Vitamin D2) 50,000 unit PO MOWEFR 01/31/19 01/25/21 [Vitamin D2] Sodium Bicarbonate Tab 650 mg PO TID 07/22/19 01/25/21 traMADol HCL [Ultram] 50 mg PO TID PRN 07/22/19 01/25/21 Docusate [Colace] 100 mg PO HS 12/06/19 01/25/21 Lidocaine-Prilocaine Cream [Emla 1 applic TOPICAL MOWEFR 12/06/19 01/25/21 Cream 2.5%/2.5%] Loratadine 10 mg PO DAILY 12/06/19 01/25/21 Magnesium Chloride [Mag64] 64 mg PO DAILY 12/06/19 01/25/21 Bumetanide [Bumex] 1 mg PO DAILY 01/25/21 01/25/21 Calcium Acetate [Phoslo] 2,001 mg PO TID-W/MEALS 01/25/21 01/25/21 Calcium Acetate [Phoslo] 667 - 1,334 mg PO TID BETWEEN MEALS 01/25/21 01/25/21 Methenamine Hippurate 1 gm PO BID 01/25/21 01/25/21 Mirabegron [Myrbetriq] 25 mg PO DAILY 01/25/21 01/25/21 levOCARNitine [Levocarnitine] 330 mg PO DAILY 01/25/21 01/25/21 metroNIDAZOLE 250 mg PO DAILY 01/25/21 01/25/21 Previous Rx's Medication Instructions Recorded Ciprofloxacin HCl [Cipro] 250 mg PO Q12HR 5 Days #10 tab 01/25/21 Allergies Allergy/AdvReac Type Severity Reaction Status Date / Time adhesive tape Allergy Rash/Hives Verified 01/25/21 14:29 Sulfa (Sulfonamide Allergy Itching Verified 01/25/21 14:29 Antibiotics) tetracycline Allergy Nausea & Verified 01/25/21 14:29 Vomiting codeine AdvReac Nausea Verified 01/25/21 14:29 epoetin beta [From Mircera] AdvReac Unknown Verified 01/25/21 14:29 Review of Systems ROS Statement: Those systems with pertinent positive or pertinent negative responses have been documented in the HPI. ROS Other: All systems not noted in ROS Statement are negative. Past Medical History Past Medical History: COPD, Osteoarthritis (OA), Renal Disease, Thyroid Disorder Additional Past Medical History / Comment(s): kidney stones and UTI,steroid injection October 2018 hx lymphedema, hx pulmonary fibrosis, hx graves,hx rt foot torn ligaments,hx kidney stones, hx osteoporosis,hypotension, chronic respiratory failure on 2 L nasal cannula at night & prn, vitamin D deficiency, hypocalcemia History of Any Multi-Drug Resistant Organisms: CRE Date of last positivie culture/infection: 10/16/18 MDRO-CRE PER [facility] NOT [facility] MDRO Source:: Urine Past Surgical History: Bariatric Surgery Additional Past Surgical History / Comment(s): hx bariatric surgery-Kye En Y,lung biopsy,radioactive iodine-tx thyroid,rectal and bladder suspensions,vaginal surgery as a child,partha carpel tunnel,rt knee meniscus repair,D&C x3, left arm fistula 02/08/19 Past Anesthesia/Blood Transfusion Reactions: Previous Problems w/ Anesthesia, Postoperative Nausea & Vomiting (PONV) Additional Past Anesthesia/Blood Transfusion Reaction / Comment(s): decrease bp with anesthesia,no problems with prior blood transfusion Past Psychological History: No Psychological Hx Reported Smoking Status: Never smoker Past Alcohol Use History: None Reported Past Drug Use History: None Reported - Past Family History Father Family Medical History: Pulmonary Embolus Additional Family Medical History / Comment(s): . Mother Family Medical History: Cancer Additional Family Medical History / Comment(s): . Sister(s) Family Medical History: Cancer Additional Family Medical History / Comment(s): . Daughter(s) Additional Family Medical History / Comment(s): lymphedema in legs Brother(s) Family Medical History: Cancer Additional Family Medical History / Comment(s): skin cancer General Exam Limitations: no limitations General appearance: alert, in no apparent distress Head exam: Present: atraumatic, normocephalic Eye exam: Present: normal appearance, EOMI ENT exam: Present: mucous membranes moist Neck exam: Present: other (Trachea is in midline). Absent: tenderness, meningismus Respiratory exam: Present: normal lung sounds bilaterally, other (Left chest Port-A-Cath is present). Absent: respiratory distress, wheezes, rales, rhonchi, stridor, chest wall tenderness Cardiovascular Exam: Present: regular rate, normal rhythm, normal heart sounds, other (Normal radial pulses bilaterally) GI/Abdominal exam: Present: soft. Absent: distended, tenderness, guarding Extremities exam: Present: other (Bilateral lower extremity lymphedema; negative Homans sign bilaterally). Absent: tenderness, calf tenderness Back exam: Absent: CVA tenderness (R), CVA tenderness (L) Neurological exam: Present: alert, oriented X3. Absent: motor sensory deficit Psychiatric exam: Present: normal affect, normal mood Skin exam: Present: warm, dry, intact, normal color Course Vital Signs 01/25/21 01/25/21 01/25/21 12:23 13:00 13:30 Temperature 97.9 F Pulse Rate 73 69 65 Respiratory 16 22 17 Rate Blood Pressure 115/78 138/89 142/88 O2 Sat by Pulse 98 100 100 Oximetry 01/25/21 01/25/21 01/25/21 14:00 14:30 15:00 Temperature Pulse Rate 69 71 63 Respiratory 19 18 18 Rate Blood Pressure 139/89 120/88 127/82 O2 Sat by Pulse 100 100 100 Oximetry 01/25/21 17:55 Temperature 98.6 F Pulse Rate 75 Respiratory 16 Rate Blood Pressure 131/90 O2 Sat by Pulse 100 Oximetry - Reevaluation(s) Reevaluation #1: 01/25/21 17:56 Patient states that she is now feeling better, and she denies development of any new symptoms while in the ED. Patient remains alert and breathing comfortably with a normal room air oxygen saturation. Patient states that she wishes to go home at this time. Patient and are aware of the patient's test results, and they both feel comfortable with the patient going home at this time. Patient and were counseled about UTIs, chronic renal failure and her symptoms. Patient was instructed to follow-up with her dialysis center tomorrow for dialysis. Patient was also struck to follow up closely with her primary care provider. Patient was clearly explained return and follow-up instructions, and she was instructed to have a low threshold for return to the emergency room should her symptoms worsen. Patient feels comfortable with this plan. EKG Findings - EKG Comments: EKG Findings:: Sinus rhythm with first-degree AV block, ventricular rate of 66 bpm, no ectopy, MS interval of 210 ms, normal QRS duration, normal QT interval, normal axis, no ST or T-wave abnormality Medical Decision Making - Medical Decision Making Patient's labs are pertinent for chronic renal failure, as well as a suspected UTI. Patient's chest x-ray is unremarkable. Patient's d-dimer was slightly elevated, but her VQ scan is very low probability for pulmonary embolus. I do not suspect an emergent medical condition at this time. Will discharge patient home with a prescription for a course of antibiotics for her UTI. Patient has no indication for emergent dialysis at this time, and she states that she should be able to be dialyzed at her dialysis center tomorrow. Will discharge patient home with her at this time. - Lab Data Result diagrams: 01/25/21 13:05 01/25/21 13:05 Lab Results 01/25/21 01/25/21 01/25/21 Range/Units 13:05 13:05 13:05 WBC 6.7 (3.8-10.6) k/uL RBC 3.88 (3.80-5.40) m/uL Hgb 12.0 (11.4-16.0) gm/dL Hct 36.9 (34.0-46.0) % MCV 95.1 (80.0-100.0) fL MCH 30.8 (25.0-35.0) pg MCHC 32.4 (31.0-37.0) g/dL RDW 14.3 (11.5-15.5) % Plt Count 274 (150-450) k/uL MPV 7.7 Neutrophils % 61 % Lymphocytes % 27 % Monocytes % 7 % Eosinophils % 2 % Basophils % 1 % Neutrophils # 4.1 (1.3-7.7) k/uL Lymphocytes # 1.8 (1.0-4.8) k/uL Monocytes # 0.4 (0-1.0) k/uL Eosinophils # 0.1 (0-0.7) k/uL Basophils # 0.1 (0-0.2) k/uL PT 9.7 (9.0-12.0) sec INR 0.9 (<1.2) APTT 21.5 L (22.0-30.0) sec D-Dimer 1.48 H (<0.60) mg/L FEU Sodium 129 L (137-145) mmol/L Potassium 5.0 (3.5-5.1) mmol/L Chloride 97 L (98-107) mmol/L Carbon Dioxide 21 L (22-30) mmol/L Anion Gap 11 mmol/L BUN 45 H (7-17) mg/dL Creatinine 2.42 H (0.52-1.04) mg/dL Est GFR (CKD-EPI)AfAm 22 (>60 ml/min/1.73 sqM) Est GFR (CKD-EPI)NonAf 19 (>60 ml/min/1.73 sqM) Glucose 115 H (74-99) mg/dL Calcium 9.9 (8.4-10.2) mg/dL Magnesium 2.2 (1.6-2.3) mg/dL Total Bilirubin 0.4 (0.2-1.3) mg/dL AST 28 (14-36) U/L ALT 25 (4-34) U/L Alkaline Phosphatase 73 (38-126) U/L Troponin I (0.000-0.034) ng/mL NT-Pro-B Natriuret Pep pg/mL Total Protein 6.8 (6.3-8.2) g/dL Albumin 4.0 (3.5-5.0) g/dL Urine Color Urine Appearance (Clear) Urine pH (5.0-8.0) Ur Specific George (1.001-1.035) Urine Protein (Negative) Urine Glucose (UA) (Negative) Urine Ketones (Negative) Urine Blood (Negative) Urine Nitrite (Negative) Urine Bilirubin (Negative) Urine Urobilinogen (<2.0) mg/dL Ur Leukocyte Esterase (Negative) Urine WBC (0-5) /hpf Ur Squamous Epith Cells (0-4) /hpf Urine Bacteria (None) /hpf Coronavirus (PCR) (Not Detectd) 01/25/21 01/25/21 01/25/21 Range/Units 13:05 13:05 13:05 WBC (3.8-10.6) k/uL RBC (3.80-5.40) m/uL Hgb (11.4-16.0) gm/dL Hct (34.0-46.0) % MCV (80.0-100.0) fL MCH (25.0-35.0) pg MCHC (31.0-37.0) g/dL RDW (11.5-15.5) % Plt Count (150-450) k/uL MPV Neutrophils % % Lymphocytes % % Monocytes % % Eosinophils % % Basophils % % Neutrophils # (1.3-7.7) k/uL Lymphocytes # (1.0-4.8) k/uL Monocytes # (0-1.0) k/uL Eosinophils # (0-0.7) k/uL Basophils # (0-0.2) k/uL PT (9.0-12.0) sec INR (<1.2) APTT (22.0-30.0) sec D-Dimer (<0.60) mg/L FEU Sodium (137-145) mmol/L Potassium (3.5-5.1) mmol/L Chloride (98-107) mmol/L Carbon Dioxide (22-30) mmol/L Anion Gap mmol/L BUN (7-17) mg/dL Creatinine (0.52-1.04) mg/dL Est GFR (CKD-EPI)AfAm (>60 ml/min/1.73 sqM) Est GFR (CKD-EPI)NonAf (>60 ml/min/1.73 sqM) Glucose (74-99) mg/dL Calcium (8.4-10.2) mg/dL Magnesium (1.6-2.3) mg/dL Total Bilirubin (0.2-1.3) mg/dL AST (14-36) U/L ALT (4-34) U/L Alkaline Phosphatase (38-126) U/L Troponin I <0.012 (0.000-0.034) ng/mL NT-Pro-B Natriuret Pep 873 pg/mL Total Protein (6.3-8.2) g/dL Albumin (3.5-5.0) g/dL Urine Color Light Yellow Urine Appearance Clear (Clear) Urine pH 7.0 (5.0-8.0) Ur Specific George 1.004 (1.001-1.035) Urine Protein Negative (Negative) Urine Glucose (UA) Negative (Negative) Urine Ketones Negative (Negative) Urine Blood Negative (Negative) Urine Nitrite Positive H (Negative) Urine Bilirubin Negative (Negative) Urine Urobilinogen <2.0 (<2.0) mg/dL Ur Leukocyte Esterase Small H (Negative) Urine WBC 8 H (0-5) /hpf Ur Squamous Epith Cells <1 (0-4) /hpf Urine Bacteria Few H (None) /hpf Coronavirus (PCR) (Not Detectd) 01/25/21 Range/Units 13:05 WBC (3.8-10.6) k/uL RBC (3.80-5.40) m/uL Hgb (11.4-16.0) gm/dL Hct (34.0-46.0) % MCV (80.0-100.0) fL MCH (25.0-35.0) pg MCHC (31.0-37.0) g/dL RDW (11.5-15.5) % Plt Count (150-450) k/uL MPV Neutrophils % % Lymphocytes % % Monocytes % % Eosinophils % % Basophils % % Neutrophils # (1.3-7.7) k/uL Lymphocytes # (1.0-4.8) k/uL Monocytes # (0-1.0) k/uL Eosinophils # (0-0.7) k/uL Basophils # (0-0.2) k/uL PT (9.0-12.0) sec INR (<1.2) APTT (22.0-30.0) sec D-Dimer (<0.60) mg/L FEU Sodium (137-145) mmol/L Potassium (3.5-5.1) mmol/L Chloride (98-107) mmol/L Carbon Dioxide (22-30) mmol/L Anion Gap mmol/L BUN (7-17) mg/dL Creatinine (0.52-1.04) mg/dL Est GFR (CKD-EPI)AfAm (>60 ml/min/1.73 sqM) Est GFR (CKD-EPI)NonAf (>60 ml/min/1.73 sqM) Glucose (74-99) mg/dL Calcium (8.4-10.2) mg/dL Magnesium (1.6-2.3) mg/dL Total Bilirubin (0.2-1.3) mg/dL AST (14-36) U/L ALT (4-34) U/L Alkaline Phosphatase (38-126) U/L Troponin I (0.000-0.034) ng/mL NT-Pro-B Natriuret Pep pg/mL Total Protein (6.3-8.2) g/dL Albumin (3.5-5.0) g/dL Urine Color Urine Appearance (Clear) Urine pH (5.0-8.0) Ur Specific George (1.001-1.035) Urine Protein (Negative) Urine Glucose (UA) (Negative) Urine Ketones (Negative) Urine Blood (Negative) Urine Nitrite (Negative) Urine Bilirubin (Negative) Urine Urobilinogen (<2.0) mg/dL Ur Leukocyte Esterase (Negative) Urine WBC (0-5) /hpf Ur Squamous Epith Cells (0-4) /hpf Urine Bacteria (None) /hpf Coronavirus (PCR) Not Detected (Not Detectd) - Radiology Data Radiology results: report reviewed (Chest x-ray: Correlate for underlying COPD, no acute process; VQ scan: Very low probability for pulmonary embolus) Disposition Clinical Impression: Chronic renal failure, UTI (urinary tract infection), Syncope, Multiple complaints Disposition: HOME SELF-CARE Condition: Stable Instructions (If sedation given, give patient instructions): Chest Pain (ED), Urinary Tract Infection in Women (ED), Chronic Kidney Disease (ED), Weakness (ED), Dyspnea (ED) Additional Instructions: Return to the ER immediately should you develop new or worsening pain, increased shortness of breath, fever, vomiting, fainting, or new or worsening symptoms. Follow up closely with your primary care provider. Follow up with your dialysis center tomorrow for dialysis. Prescriptions: Ciprofloxacin HCl [Cipro] 250 mg PO Q12HR 5 Days #10 tab Is patient prescribed a controlled substance at d/c from ED?: No Referrals: Bienvenido Hogue MD [Primary Care Provider] - 1-2 days Time of Disposition: 18:00
[2021-01-25 13:28] LABS: Basophils # (A) 0.1 k/uL (0-0.2); Basophils % (A) 1 %; Eosinophils # (A) 0.1 k/uL (0-0.7); Eosinophils % (A) 2 %; HCT 36.9 % (34.0-46.0); Lymphocytes # (A) 1.8 k/uL (1.0-4.8); Lymphocytes % (A) 27 %; MCH 30.8 pg (25.0-35.0); MCHC 32.4 g/dL (31.0-37.0); MCV 95.1 fL (80.0-100.0); Mean Platelet Volume 7.7; Monocytes # (A) 0.4 k/uL (0-1.0); Monocytes % (A) 7 %; Neutrophils # (A) 4.1 k/uL (1.3-7.7); Neutrophils % (A) 61 %; Platelet Count 274 k/uL (150-450); RBC 3.88 m/uL (3.80-5.40); RDW 14.3 % (11.5-15.5); WBC 6.7 k/uL (3.8-10.6)
--- NOTE | 2021-01-25 13:31 | XR ---
EXAMINATION TYPE: XR chest 2V DATE OF EXAM: 01/25/2021 COMPARISON: 07/29/2020 HISTORY: 75-year-old female with chest pain TECHNIQUE: PA and lateral views FINDINGS: Heart normal size. Atherosclerotic arch calcifications. Tortuous/ectatic thoracic aorta. Left anterio r chest wall double-lumen hemodialysis catheter. Tips in the right atrium. There is mild hyperinflati on. No consolidation or pleural effusion. Some strandy atelectasis in the lower lungs. Surgical clips in the upper abdomen on both sides. IMPRESSION: Correlate for underlying COPD. No acute process seen.
[2021-01-25 13:47] LABS: Calcium 9.9 mg/dL (8.4-10.2); INR 0.9 (<1.2); Magnesium 2.2 mg/dL (1.6-2.3); Prothrombin Time 9.7 sec (9.0-12.0); Total Bilirubin 0.4 mg/dL (0.2-1.3); Total Protein 6.8 g/dL (6.3-8.2)
[2021-01-25 13:58] LABS: Partial Thromboplastin Time 21.5 sec (22.0-30.0)
[2021-01-25 15:13] LABS: Appearance,Urine Clear (Clear); Bacteria,Urine Few /hpf; Bilirubin,Urine Negative (Negative); Blood,Urine Negative (Negative); Color,Urine Light Yellow; Glucose,Urine (UA) Negative (Negative); Ketones,Urine Negative (Negative); Leukocyte Esterase,Urine Small (Negative); Nitrite,Urine Positive (Negative); Protein,Urine Negative (Negative); Specific Gravity,Urine 1.004 (1.001-1.035); Squamous Epithelial Cell,Urine <1 /hpf (0-4); Urobilinogen,Urine <2.0 mg/dL (<2.0); WBC,Urine 8 /hpf (0-5)
--- NOTE | 2021-01-25 16:19 | NM ---
EXAMINATION TYPE: NM pul vent and perfuse DATE OF EXAM: 01/25/2021 COMPARISON: Radiographs same day and prior VQ scan 04/05/2019 HISTORY: 75-year-old female chest pain, shortness of breath, renal failure, elevated d-dimer TECHNIQUE: Utilizing inhalation of 65.1 mCi Tc 99m DTPA aerosol and intravenous injection of 4.7 mCi of Tc 99m MAA, ventilation and perfusion images are acquired post injection in multiple projections. FINDINGS: Normal radiotracer distribution is noted in the lungs. There is no evidence of mismatched defects. IMPRESSION: Very low probability for pulmonary embolus.
[2021-01-25] MEDS ORDERED: CIPROFLOXACIN HCL 250 MG TAB PO STA (17:43)
[2021-01-25 17:56] VITALS: BP 131/90; PULSE 75; RESP 16; TEMP 98.6
== END 2021-01-25 18:01 | disposition home or self-care (01) ==
LOC: EC 12:15
DX: N39.0 Urinary tract infection, site not specified (principal); N18.9 Chronic kidney disease, unspecified; R55 Syncope and collapse; R07.89 Other chest pain; J44.9 Chronic obstructive pulmonary disease, unspecified; M19.90 Unspecified osteoarthritis, unspecified site; E07.9 Disorder of thyroid, unspecified; Z88.2 Allergy status to sulfonamides; Z88.5 Allergy status to narcotic agent; Z87.442 Personal history of urinary calculi; Z98.84 Bariatric surgery status; Z20.822 Contact with and (suspected) exposure to COVID-19
CPT/HCPCS: 99285; 36415; 93005; 85379; 83880; 80053; 83735; 84484; 85025; 85610; 85730; 81001; 87635; 71046; 78582; A9540; A9567

== ENCOUNTER → 2021-03-02 | Outpatient (CLI) | payer MEDICARE ==
--- NOTE | 2021-03-02 16:06 | XR ---
EXAMINATION TYPE: XR chest 2V DATE OF EXAM: 03/02/2021 COMPARISON: 01/25/2021 HISTORY: 75-year-old female T82.41 XA TECHNIQUE: Frontal and lateral views FINDINGS: Heart normal size. Similar tortuosity of the thoracic aorta. Left sided double lumen hemodialysis cat heter with tips in the upper right atrium. Bony vasculature within normal limits. Surgical clips in t he left upper quadrant and also in the right upper quadrant. No consolidation or pleural effusion. In creased retrosternal clear space. IMPRESSION: Mild hyperinflation may relate to a depth of inspiration or underlying emphysema. Left-sided hemodial ysis catheter. No acute cardiopulmonary process.
== END | disposition home or self-care (01) ==
LOC: RADXRMAIN 15:33
PROVIDERS: ATTEND Surgery
DX: J98.4 Other disorders of lung (principal)
CPT/HCPCS: 71046

== ENCOUNTER → 2021-06-16 | Outpatient (CLI) | payer MEDICARE ==
--- NOTE | 2021-06-21 11:13 | MM ---
Reason for exam: screening (asymptomatic). Last mammogram was performed 4 years and 3 months ago. History: Patient is postmenopausal. Family history of premenopausal breast cancer in mother at age 60. Took estrogen for 1 year beginning at age 48. Physical Findings: A clinical breast exam by your physician is recommended on an annual basis and results should be correlated with mammographic findings. MG 3D Screening Mammo W/Cad Bilateral CC and MLO view(s) were taken. Prior study comparison: March 20, 2017, bilateral MG 3d screening mammo w/cad. January 16, 2013, bilateral digital screening mammo w/CAD. There are scattered fibroglandular densities. Benign vascular calcifications. Double linear catheter seen on the left. No significant changes when compared with prior studies. ASSESSMENT: Benign, BI-RAD 2 RECOMMENDATION: Routine screening mammogram of both breasts in 1 year.
== END | disposition home or self-care (01) ==
LOC: RADMAMWWP 09:38
PROVIDERS: ATTEND Internal Medicine Geriatric Medicine
DX: Z12.31 Encounter for screening mammogram for malignant neoplasm of breast (principal); Z78.0 Asymptomatic menopausal state; Z80.3 Family history of malignant neoplasm of breast
CPT/HCPCS: 77063; 77067

== ENCOUNTER → 2021-06-23 | Outpatient (CLI) | payer MEDICARE ==
--- NOTE | 2021-06-23 12:29 | BD ---
EXAMINATION TYPE: Axial Bone Density DATE OF EXAM: 06/23/2021 COMPARISON: 03.07.2008 CLINICAL HISTORY: 75 YR OLD FEMALE.....ICD-10 CODE: M81.0 OSTEOPOROSIS Height: 61.5 Weight: 126 FRAX RISK QUESTIONS: Family History (Parent hip fracture): YES, NO FX Glucocorticoids (More than 3mos): ON AND OFF FOR ILLNESS AND PAIN...MANY YRS (Ex: prednisone, prednisolone, methylprednisolone, dexamethasone, and hydrocortisone). History of Fracture in Adulthood: YES 4. Malnutrition: VERY THIN Current Tobacco Use: NONE NOW RISK FACTORS HISTORY OF: History of Wrist Fracture: RT AN ADULT Family History of Osteoporosis: YES, MOTHER AND SISTER, NO FX Active: VERY UNSTEADY Postmenopausal woman: PT STATES AT AGE 66 YRS OLD Frequent falls: UNSTEADY Hyperparathyroidism: YES, GRAVES Adrenal Insufficiency: NO MEDICATIONS: Prednisone or other steroids: ON AND OFF FOR MANY YRS FOR ILLNESS AND PAIN Thyroid Medications: YES, SYNTHROID FOR 20 + YRS Osteoporosis Medications: FOSAMAX 5+ YRS, PROLIA, 5+ YRS, NONE NOW Additional Medications: PROZAC, REFLUX MEDS, CALCIUM, V-D, PAIN MEDS, VITAMINS, NSAIDS Additional History: REFLUX, DEPRESSION, OSTEOARTHRITIS, GRAVES DISEASE, EXAM MEASUREMENTS: Bone mineral densitometry was performed using the [employer]. Bone mineral density as measured about the Lumbar spine is: ----- L1-L4(G/cm2): 0.727 T Score Values are as follows: ----- L1: -3.7 ----- L2: -4.1 ----- L3: -4.1 ----- L4: -3.2 ----- L1-L4: -3.8 Bone mineral density has: Decreased -12.9% since study of: 03.07.2008 Bone mineral density about the R hip (g/cm2): 0.658 Bone mineral density about the L hip (g/cm2): 0.668 T Score values are as follows: -----R Neck: -2.4 -----L Neck: -2.4 -----R Total: -2.8 -----L Total: -2.7 Bone mineral density has: Decreased -12.3% since study of: 10.03.2008 FRAX%s: THERE IS A 35.2% CHANCE FOR A MAJOR OSTEOPOROTIC FX AND A 12.8% FOR HIPS.....PROBABILITY FOR FX IN 10 YRS TIME IMPRESSION: Osteoporosis (T Score less than -2.5). There is increased fracture risk and therapy is usually indicated based on age. Re-Screen 1-2 years. NOTE: T-SCORE=SD OF THE YOUNG ADULT MEAN.
== END | disposition home or self-care (01) ==
LOC: RADBDWWP 10:36
PROVIDERS: ATTEND Internal Medicine Geriatric Medicine
DX: M81.0 Age-related osteoporosis without current pathological fracture (principal)
CPT/HCPCS: 77080

== ENCOUNTER → 2021-07-02 | Outpatient (CLI) | payer MEDICARE ==
[~2021-07-02] MED LIST changes: +DENOSUMAB 60 MG/ML 1 ML SYRINGE SQ NR; -HEPARIN SODIUM 1,000 UN/ML (10ML VL) IV ONE; -LIDOCAINE 1% INJ 10MG/ML (20 ML MDV) SQ ONE; -MIDAZOLAM 2 MG/2 ML VIAL IV ONE; -SODIUM CHLORIDE 0.9% 500 ML 500 ML IV ONE; -fentaNYL (PF) 50 MCG/ML 2 ML AMP IV ONE
[2021-07-02 12:13] VITALS: BP 92/67; PULSE 76; RESP 16; TEMP 97.7
== END ==
LOC: PROCWHC3 11:53
PROVIDERS: ATTEND Internal Medicine
DX: M81.0 Age-related osteoporosis without current pathological fracture (principal); Z88.2 Allergy status to sulfonamides; Z91.048 Other nonmedicinal substance allergy status; Z88.5 Allergy status to narcotic agent; Z88.1 Allergy status to other antibiotic agents; Z88.8 Allergy status to other drugs, medicaments and biological substances
CPT/HCPCS: 96372; J0897

== ENCOUNTER → 2021-12-10 | Outpatient (CLI) | payer MEDICARE ==
--- NOTE | 2021-12-10 13:26 | CT ---
CT abdomen and pelvis without contrast. HISTORY: Pretransplant evaluation. COMPARISON: 12/06/2019. TECHNIQUE: Multiple axial images are obtained through the abdomen and pelvis without use of oral or I V contrast material. FINDINGS: Visualized lung bases are clear. There are surgical clips and sutures scattered throughout the abdomen as on the prior study which anuel ear to be secondary to bariatric surgery involving the stomach, cholecystectomy and bowel surgery. Th ere is no bowel obstruction. There is no free intraperitoneal air or fluid. There is no organomegaly involving the liver pancreas, spleen or adrenal glands although the evaluati on of the solid visceral organs is limited due to lack of IV and oral contrast. As on the prior study there is marked hydronephrosis of the right kidney. There is mild to moderate l eft renal atrophy and there are 2 nonobstructing left renal calcifications one measuring 6.4 mm and t he other measuring 5.9 mm. Caliber the abdominal aorta is normal is no retroperitoneal adenopathy. Evaluation the pelvis is limited due to lack of IV contrast. There has been interval development of a mass in the region of the uterus/cervix which was not present on the prior study. It has rim calcifi cation and is approximately 6.5 x 4.5 cm in size. Neoplasm is not excluded. The osseous structures are intact. IMPRESSION: 1. Interval development of a pelvic mass as described above. Further evaluation is warranted with pel adonis ultrasound or MRI of the pelvis. Neoplasm is not excluded.. 2. Chronic right hydronephrosis. 3., mild/moderate left renal atrophy with 2 nonobstructing left renal calcifications. 4. Postsurgical changes in the abdomen involving the stomach, and multiple bowel loops. Cholecystecto my. 5. No free intraperitoneal air or fluid. 6. No bowel obstruction.
== END | disposition home or self-care (01) ==
LOC: RADCTMAIN 10:36
PROVIDERS: ATTEND Internal Medicine Nephrology
DX: Z01.818 Encounter for other preprocedural examination (principal); N13.30 Unspecified hydronephrosis; N26.1 Atrophy of kidney (terminal); Z90.49 Acquired absence of other specified parts of digestive tract
CPT/HCPCS: 74176

== ENCOUNTER → 2021-12-15 | Outpatient (CLI) | payer MEDICARE ==
[~2021-12-15] MED LIST changes: -DENOSUMAB 60 MG/ML 1 ML SYRINGE SQ NR; +DOBUTamine DRIP for NUC MED 500 MG in DEXTROSE/WATER 1 250ML.BAG IV PRN; +DOBUTamine DRIP for NUC MED 500 MG/250 ML BAG IV ONE
--- NOTE | 2021-12-15 13:09 | CA ---
Dobutamine Stress Echocardiogram Report Margie Dallas Age: 76 Gender: F : 1945 Exam Date: 12/15/2021 10:50 Exam Location: [facility] Ordering Physician: Bienvenido Hogue MD Referring Physician: CANDIDA,, Laundry Operator Finishing: Consuelo Lr RDCS Technologist: Ht (in): 63 Wt (lb): 127 Procedure CPT: Indication: Z01.810 preprocedural cardiovascular testing ICD-9 Codes: Rhythm: Patient History: Typical angina, Family history Cardiac Medications: Medications in past 24 hours: Contrast: Total Dose (mL): Stress Results Protocol: Peak Dose (???g/kg/min): Duration (min:sec): Atropine:(mg) Target HR: 122 Double Product: [id number] Resting HR: 73 Resting BP: 133 / 67 Peak HR: 125 Peak BP: 130 / 54 Max Predicted HR: 143 87 % Max Predicted HR Stress Summary: BP Response: Reason for Termination: Cardiac Symptoms: ECG Analysis Resting EKG: Sinus mechanism, normal axis and intervals Stress EK mm downsloping ST segment depression at peak exercise Arrhythmia: Frequent PVCs and PACs Echo Analysis Base Echo Analysis: Normal wall motion with no segmental wall motion abnormality Low Echo Anaylsis: Normal response to Dobutamine. Normal response to Dobutamine. Peak Echo Analysis: Normal response to Dobutamine. No echocardiographic evidence of myocardial ischemia. Recovery Echo: No echocardiographic evidence of myocardial ischemia. MEASUREMENTS (Male/Female) Normal Values CONCLUSIONS 1. Mild EKG changes at peak dobutamine infusion 2. Normal echocardiographic response to dobutamine infusion with no evidence of stress induced ischemia. Dr. Eleuterio Campbell MD (Electronically Signed) Final Date: 15 December 2021 13:08
== END | disposition home or self-care (01) ==
LOC: RADNMMAIN 09:41
PROVIDERS: ATTEND Internal Medicine Geriatric Medicine
DX: Z01.810 Encounter for preprocedural cardiovascular examination (principal); R94.31 Abnormal electrocardiogram [ECG] [EKG]
CPT/HCPCS: 93351

== ENCOUNTER → 2021-12-22 | Outpatient (CLI) | payer MEDICARE ==
--- NOTE | 2021-12-23 11:40 | CA ---
Transthoracic Echo Report Name: Margie Dallas Age: 76 Gender: F : 1945 Exam Date: 12/22/2021 13:17 Exam Location: [facility] Ht (in): 63 Wt (lb): 128 Ordering Physician: Bienvenido Hogue MD Attending/Referring Phys: Application Lead Nina Cordova RDCS Procedure CPT: Indications: Z01.810 PRE PROCEDURAL CARDIO EXAM Cardiac Hx: Technical Quality: Fair Contrast 1: Total Dose (mL): Contrast 2: Total Dose (mL): MEASUREMENTS (Male / Female) Normal Values 2D ECHO LV Diastolic Diameter PLAX 2.7 cm 4.2 - 5.9 / 3.9 - 5.3 cm LV Systolic Diameter PLAX 1.8 cm IVS Diastolic Thickness 1.2 cm 0.6 - 1.0 / 0.6 - 0.9 cm LVPW Diastolic Thickness 1.0 cm 0.6 - 1.0 / 0.6 - 0.9 cm LV Relative Wall Thickness 0.8 RV Internal Dim ED PLAX 3.3 cm LA Volume 38.3 cm??? 18 - 58 / 22 - 52 cm??? DOPPLER AV Peak Velocity 97.3 cm/s AV Peak Gradient 3.8 mmHg LVOT Peak Velocity 84.0 cm/s LVOT Peak Gradient 2.8 mmHg MV Area PHT 2.7 cm??? Mitral E Point Velocity 71.8 cm/s Mitral A Point Velocity 64.8 cm/s Mitral E to A Ratio 1.1 MV Deceleration Time 277.7 ms MV E' Velocity 8.8 cm/s Mitral E to MV E' Ratio 8.2 TR Peak Velocity 211.2 cm/s TR Peak Gradient 17.8 mmHg Right Ventricular Systolic Press 22.8 mmHg FINDINGS Left Ventricle Mildly increased left ventricular wall thickness. Normal left ventricular systolic function with no obvious regional wall motion abnormalities. Normal left ventricular diastolic filling pattern. Left ventricular ejection fraction is estimated at 55-60 %. Right Ventricle Normal right ventricular size. Right ventricular systolic pressure within normal limits. Right Atrium Normal right atrial size. Left Atrium Normal left atrial size. No evidence for an atrial septal defect. Mitral Valve Mild mitral annular calcification. Trace mitral regurgitation. Aortic Valve No aortic valve stenosis or regurgitation. Aortic valve sclerosis. Tricuspid Valve Mild tricuspid regurgitation. Pulmonic Valve Trace pulmonic regurgitation. Pericardium No pericardial effusion. Aorta Normal size aortic root and proximal ascending aorta. CONCLUSIONS Normal left ventricular ejection fraction 55-60% Normal diastolic function Trace mitral regurgitation Mild tricuspid regurgitation No pericardial effusion Previewed by: Dr. Will Aquino DO (Electronically Signed) Final Date: 23 December 2021 11:39
== END | disposition home or self-care (01) ==
LOC: RADECHMAIN 13:06
PROVIDERS: ATTEND Internal Medicine Geriatric Medicine
DX: Z01.810 Encounter for preprocedural cardiovascular examination (principal); I08.1 Rheumatic disorders of both mitral and tricuspid valves
CPT/HCPCS: 93306

== ENCOUNTER → 2022-01-14 | Outpatient (CLI) | payer MEDICARE ==
[~2022-01-14] MED LIST changes: +DENOSUMAB 60 MG/ML 1 ML SYRINGE SQ NR; -DOBUTamine DRIP for NUC MED 500 MG in DEXTROSE/WATER 1 250ML.BAG IV PRN; -DOBUTamine DRIP for NUC MED 500 MG/250 ML BAG IV ONE
[2022-01-14 13:20] VITALS: BP 110/69; PULSE 97; RESP 16; TEMP 98
== END ==
LOC: PROCWHC3 13:11
PROVIDERS: ATTEND Internal Medicine
DX: M81.0 Age-related osteoporosis without current pathological fracture (principal); Z88.2 Allergy status to sulfonamides; Z88.1 Allergy status to other antibiotic agents; Z88.5 Allergy status to narcotic agent; Z91.048 Other nonmedicinal substance allergy status
CPT/HCPCS: 96372; J0897

== ENCOUNTER → 2022-03-10 | Outpatient (CLI) | payer MEDICARE ==
--- NOTE | 2022-03-10 14:55 | US ---
EXAMINATION TYPE: US pelvis complete transvag DATE OF EXAM: 03/10/2022 COMPARISON: Pelvic ultrasound 01/26/2022, CT abdomen pelvis 12/10/2021. CLINICAL HISTORY: N94.89 PELVIC MASS. Total hysterectomy 30yrs ago, no symptoms, CT in December and US in January produced fluid within pelvis, assess fluid today TECHNIQUE: TA/TV. Transabdominal sonographic images of the pelvis were acquired. Transvaginal sono graphic images Date of LMP: 30 yrs ago EXAM MEASUREMENTS: Uterus: Surgically absent Endometrial Stripe: Surgically absent Right Ovary: Surgically absent Left Ovary: Surgically absent Multiple attempts to assess pelvis for fluid collection. With full bladder assessment, nothing was se en but peristalsing bowel. Transvaginal approach was negative also. Reassessed patient transabdomina lly, after voiding, and no fluid collection seen, with the exception of semi distended bladder, Uterus and both ovaries are surgically absent. Previously demonstrated thin-walled cyst versus mass i n left adnexa is not definitively visualized. IMPRESSION: 1. No definitive cyst or cystic mass seen within the left adnexa on today's examination however ther e is significant peristalsing bowel in this region which limits evaluation. Consider short-term follo w-up examination versus pelvic MRI for further evaluation. 2. Post surgical changes from hysterectomy and salpingo-oophorectomy.
== END | disposition home or self-care (01) ==
LOC: RADUSWWP 13:00
PROVIDERS: ATTEND Internal Medicine Hematology & Oncology
DX: N94.89 Other specified conditions associated with female genital organs and menstrual cycle (principal)
CPT/HCPCS: 76830; 76856

== ENCOUNTER → 2022-04-09 | Outpatient (CLI) | payer MEDICARE ==
--- NOTE | 2022-04-10 11:30 | MR ---
EXAMINATION TYPE: MR pelvis wo con DATE OF EXAM: 04/09/2022 COMPARISON: CT 12/10/2021, ultrasound 01/26/2022 and 03/10/2022 CLINICAL INDICATION:Female, 76 years old with history of N94.89; abnormal CT scan 7022. TECHNIQUE: Triplane multisequence imaging was performed of the pelvis. IV Contrast: None FINDINGS: There is significant motion artifact throughout the exam blurring the pelvis The uterus is surgically absent. After review of the prior CT and ultrasounds. Masslike area is felt to represent anastomotic site of the bowel with stool that had a masslike appearance.. No pelvic mass es identified on prior CT or on this MRI examination even though this exam is limited due to motion a rtifact. Bladder: Grossly unremarkable. Bowel: Marked peristalsis. Creating motion artifact. Peritoneum: A small amount of free fluid in the pelvis. No evidence of adenopathy. Vasculature: Unremarkable. Abdominal wall/soft tissues: Unremarkable. Musculoskeletal: Bone marrow signal is within normal signal intensity. Partially visualized right renal cyst. IMPRESSION: Area of concern in the pelvis is felt to represent bowel without evidence for mass. There is surgical suture seen at this site on prior CT with suspected underlying masslike feces at the anastomotic sit e on prior CT. Ultrasound did not demonstrate any cystic structures. If clinically warranted for repe at examination consider glucagon prior to MRI with IV contrast to limit bowel peristalsis and/or oral and IV contrast CT pelvis.
== END | disposition home or self-care (01) ==
LOC: RADMRIMAIN 12:12
PROVIDERS: ATTEND Internal Medicine Hematology & Oncology
DX: N94.89 Other specified conditions associated with female genital organs and menstrual cycle (principal); N18.9 Chronic kidney disease, unspecified; M12.9 Arthropathy, unspecified; E03.9 Hypothyroidism, unspecified
CPT/HCPCS: 72195

== ENCOUNTER 2022-06-17 12:42 | Emergency (ER) | payer MEDICARE ==
--- NOTE | 2022-06-17 13:20 | ED ---
General Adult HPI - General Chief complaint: Abdominal Pain Stated complaint: UTI Time Seen by Provider: 06/17/22 12:45 Source: patient Mode of arrival: ambulatory Limitations: no limitations - History of Present Illness Initial comments: Dictation was produced using [employer] dictation software. please excuse any grammatical, word or spelling errors. Chief Complaint: 76-year-old female presents emergency department for concerns of UTI History of Present Illness: Patient is 76-year-old female she had a fall on appointment with her primary care physician. She was not able to make it to PCP due to poor weather conditions in distance. She had a phone conversation is told to come to the emergency room. Patient is adamant that she has a recurrence of UTI. Patient has multiple comorbidities. She receives frequent steroid injections for some sort of arthritis. States that she frequently has asymptomatic UTIs. Patient has been having cough and shortness of breath, feeling weak and dizzy. Symptoms have been ongoing for 7 days. The ROS documented in this emergency department record has been reviewed and confirmed by me. Those systems with pertinent positive or negative responses have been documented in the HPI. All other systems are other negative and/or noncontributory. PHYSICAL EXAM: General Impression: Alert and oriented x3, not in acute distress HEENT: Normocephalic atraumatic, extra-ocular movements intact, pupils equal and reactive to light bilaterally, mucous membranes moist. Cardiovascular: Heart regular rate and rhythm Chest: Able to complete full sentences, no retractions, no tachypnea Abdomen: abdomen soft, non-tender, non-distended, no organomegaly Musculoskeletal: Pulses present and equal in all extremities, no peripheral edema Motor: no focal deficits noted Neurological: CN II-XII grossly intact, no focal motor or sensory deficits noted Skin: Intact with no visualized rashes Psych: Normal affect and mood ED course: 76-year-old female presents to the emergency department for feeling u nwell, dizzy. Patient not having any active urinary symptoms. Signs upon arrival are within acceptable limits. Nursing notes and chart review was performed My EKG interpretation: Ventricular rate 66, sinus rhythm,. Interval to 14, QRS 80, QTc 391. No NJ prolongation, no QTC prolongation, no ST or T-wave changes noted. Overall, this EKG is unremarkable Laboratory evaluation obtained. CBC, metabolic panel, urinalysis negative. For panel JB is negative. Chest x-ray is not acute. Patient observed in emergency department for 3 hours. Other bedside at 4:00 PM found be stable medical co ndition. Labs and imaging results were discussed with patient. Patient be discharged per she has no high-risk features. Advised follow-up with primary care doctor. Was pt. sent in by a medical professional or institution (ANUP[facility] Roche, [employer], urgent care, hospital, or custodial...) When possible be specific @ -Primary care physician Did you speak to anyone other than the patient for history (EMS, parent, family, police, friend...)? What history was obtained from this source @ -No Did you review nursing and triage notes (agree or disagree)? Why? @ -I reviewed and agree with nursing and triage notes Were old charts reviewed (outside hosp., previous admission, EMS record, old EKG, old radiological studies, urgent care reports/EKG's, custodial records)? Report findings @ -No old charts were reviewed Differential Diagnosis (chest pain, altered mental status, abdominal pain women, abdominal pain men, vaginal bleeding, weakness, fever, dyspnea, syncope, headache, dizziness, GI bleed, back pain, seizure, CVA, palpatations, mental health)? @ -not applicable EKG interpreted by me (3pts min.). @ -As above X-rays interpreted by me (1pt min.). @ -As above CT interpreted by me (1pt min.). @ -None done U/S interpreted by me (1pt. min.). @ -None done What testing was considered but not performed or refused? (CT, X-rays, U/S, labs)? Why? @ -None What meds were considered but not given or refused? Why? @ -None Did you discuss the management of the patient with other professionals (professionals i.e. ANUP[facility] Roche, [employer], lab, RT, psych nurse, social media senior associate, biomedical engineer, teacher, commanding officer motorized squad, correctional case records supervisor)? Give summary @ -No Was smoking cessation discussed for >3mins.? @ -No Was critical care preformed (if so, how long)? @ -No Were there social determinants of health that impacted care today? How? (Homelessness, low income, unemployed, alcoholism, drug addiction, transportation, low edu. Level, literacy, decrease access to med. care, retirement, rehab)? @ -No Was there de-escalation of care discussed even if they declined (Discuss DNR or withdrawal of care, Hospice)? DNR status @ -No What co-morbidities impacted this encounter? (DM, HTN, Smoking, COPD, CAD, Cancer, CVA, ARF, Chemo, Hep., AIDS, mental health diagnosis, sleep apnea, morbid obesity)? @ -None Was patient admitted / discharged? Hospital course, mention meds given and route, prescriptions, significant lab abnormalities, going to OR and other pertinent info. @ -See above Undiagnosed new problem with uncertain prognosis? @ -No Drug Therapy requiring intensive monitoring for toxicity (Heparin, Nitro, Insulin, Cardizem)? @ -No Were any procedures done? @ -No Diagnosis/symptom? @ -Dizziness Acute, or Chronic, or Acute on Chronic? @ -Acute Uncomplicated (without systemic symptoms) or Complicated (systemic symptoms)? @ -Uncomplicated Side effects of treatment? @ -No Exacerbation, Progression, or Severe Exacerbation? @ -No Poses a threat to life or bodily function? How? (Chest pain, [place], [place], pneumonia, PE, COPD, DKA, ARF, appy, cholecystitis, CVA, Diverticulitis, Homicidal, Suicidal, threat to staff... and all critical care pts) @ -No - Related Data Home Medications Medication Instructions Recorded Confirmed Docusate [Colace] 200 mg PO DAILY@1500 08/23/18 01/14/22 FLUoxetine HCL [PROzac] 20 mg PO BID 08/23/18 01/14/22 Levothyroxine Sodium [Synthroid] 112 mcg PO MOTUWETHFRSA 08/23/18 01/14/22 Levothyroxine Sodium [Synthroid] 224 mcg PO MURO 08/23/18 01/14/22 Montelukast [Singulair] 10 mg PO HS 08/23/18 01/14/22 Omeprazole 40 mg PO DAILY 11/19/18 01/14/22 Ergocalciferol (Vitamin D2) 50,000 unit PO MOWEFR 01/31/19 01/14/22 [Vitamin D2] Sodium Bicarbonate Tab 650 mg PO TID 07/22/19 01/14/22 traMADol HCL [Ultram] 50 mg PO TID PRN 07/22/19 01/14/22 Docusate [Colace] 100 mg PO HS 12/06/19 01/14/22 Lidocaine-Prilocaine Cream [Emla 1 applic TOPICAL MOWEFR 12/06/19 01/14/22 Cream 2.5%/2.5%] Loratadine 10 mg PO DAILY 12/06/19 01/14/22 Magnesium Chloride [Mag64] 64 mg PO DAILY 12/06/19 01/14/22 Bumetanide [Bumex] 1 mg PO DAILY 01/25/21 01/14/22 Calcium Acetate [Phoslo] 2,001 mg PO TID-W/MEALS 01/25/21 01/14/22 Calcium Acetate [Phoslo] 667 - 1,334 mg PO TID BETWEEN MEALS 01/25/21 01/14/22 Methenamine Hippurate 1 gm PO BID 01/25/21 01/14/22 Mirabegron [Myrbetriq] 25 mg PO DAILY 01/25/21 01/14/22 levOCARNitine [Levocarnitine] 330 mg PO DAILY 01/25/21 01/14/22 metroNIDAZOLE 250 mg PO DAILY 01/25/21 01/14/22 Previous Rx's Medication Instructions Recorded Ciprofloxacin HCl [Cipro] 250 mg PO Q12HR 5 Days #10 tab 01/25/21 Allergies Allergy/AdvReac Type Severity Reaction Status Date / Time adhesive tape Allergy Rash/Hives Verified 06/17/22 12:46 Sulfa (Sulfonamide Allergy Itching Verified 06/17/22 12:46 Antibiotics) tetracycline Allergy Nausea & Verified 06/17/22 12:46 Vomiting codeine AdvReac Nausea Verified 06/17/22 12:46 epoetin beta [From Mircera] AdvReac Unknown Verified 06/17/22 12:46 Review of Systems ROS Statement: Those systems with pertinent positive or pertinent negative responses have been documented in the HPI. ROS Other: All systems not noted in ROS Statement are negative. Past Medical History Past Medical History: Cancer, COPD, Osteoarthritis (OA), Renal Disease, Thyroid Disorder Additional Past Medical History / Comment(s): kidney stones and UTI,steroid injection October 2018 hx lymphedema, hx pulmonary fibrosis, hx graves,hx rt foot torn ligaments,hx kidney stones, hx osteoporosis,hypotension, chronic respiratory failure on 2 L nasal cannula at night & prn, vitamin D deficiency, hypocalcemia. SKIN CANCER REMOVED FROM BRIDGE OF NOSE. History of Any Multi-Drug Resistant Organisms: CRE Date of last positivie culture/infection: 10/16/18 MDRO-CRE PER [facility] NOT [facility] MDRO Source:: Urine Past Surgical History: Bariatric Surgery Additional Past Surgical History / Comment(s): hx bariatric surgery-Kye En Y,lung biopsy,radioactive iodine-tx thyroid,rectal and bladder suspensions,vaginal surgery as a child,partha carpel tunnel,rt knee meniscus repair,D&C x3, left arm fistula 02/08/19 Past Anesthesia/Blood Transfusion Reactions: Previous Problems w/ Anesthesia, Postoperative Nausea & Vomiting (PONV) Additional Past Anesthesia/Blood Transfusion Reaction / Comment(s): decrease bp with anesthesia,no problems with prior blood transfusion Past Psychological History: No Psychological Hx Reported Smoking Status: Never smoker Past Alcohol Use History: None Reported Past Drug Use History: None Reported - Past Family History Father Family Medical History: Pulmonary Embolus Additional Family Medical History / Comment(s): . Mother Family Medical History: Cancer Additional Family Medical History / Comment(s): . Sister(s) Family Medical History: Cancer Additional Family Medical History / Comment(s): . Daughter(s) Additional Family Medical History / Comment(s): lymphedema in legs Brother(s) Family Medical History: Cancer Additional Family Medical History / Comment(s): skin cancer General Exam Limitations: no limitations Course Vital Signs 06/17/22 06/17/22 12:45 14:47 Temperature 98.5 F Pulse Rate 73 61 Respiratory 20 17 Rate Blood Pressure 118/74 134/68 O2 Sat by Pulse 97 100 Oximetry Medical Decision Making - Lab Data Result diagrams: 06/17/22 13:06 06/17/22 13:06 Lab Results 06/17/22 06/17/22 06/17/22 Range/Units 13:06 13:06 13:06 WBC 6.5 (3.8-10.6) k/uL RBC 3.00 L (3.80-5.40) m/uL Hgb 9.4 L (11.4-16.0) gm/dL Hct 30.0 L (34.0-46.0) % MCV 100.1 H (80.0-100.0) fL MCH 31.5 (25.0-35.0) pg MCHC 31.5 (31.0-37.0) g/dL RDW 13.1 (11.5-15.5) % Plt Count 197 (150-450) k/uL MPV 7.8 Neutrophils % 64 % Lymphocytes % 22 % Monocytes % 7 % Eosinophils % 3 % Basophils % 1 % Neutrophils # 4.2 (1.3-7.7) k/uL Lymphocytes # 1.4 (1.0-4.8) k/uL Monocytes # 0.5 (0-1.0) k/uL Eosinophils # 0.2 (0-0.7) k/uL Basophils # 0.1 (0-0.2) k/uL Sodium 132 L (137-145) mmol/L Potassium 4.2 (3.5-5.1) mmol/L Chloride 98 (98-107) mmol/L Carbon Dioxide 28 (22-30) mmol/L Anion Gap 6 mmol/L BUN 81 H (7-17) mg/dL Creatinine 2.54 H (0.52-1.04) mg/dL Est GFR (CKD-EPI)AfAm 20 (>60 ml/min/1.73 sqM) Est GFR (CKD-EPI)NonAf 18 (>60 ml/min/1.73 sqM) Glucose 96 (74-99) mg/dL Plasma Lactic Acid Klever (0.7-2.0) mmol/L Calcium 11.0 H (8.4-10.2) mg/dL Urine Color Colorless Urine Appearance Clear (Clear) Urine pH 7.0 (5.0-8.0) Ur Specific [place] 1.006 (1.001-1.035) Urine Protein Negative (Negative) Urine Glucose (UA) Negative (Negative) Urine Ketones Negative (Negative) Urine Blood Negative (Negative) Urine Nitrite Negative (Negative) Urine Bilirubin Negative (Negative) Urine Urobilinogen <2.0 (<2.0) mg/dL Ur Leukocyte Esterase Negative (Negative) Influenza Type A (PCR) (Not Detectd) Influenza Type B (PCR) (Not Detectd) RSV (PCR) (Not Detectd) SARS-CoV-2 (PCR) (Not Detectd) 06/17/22 06/17/22 Range/Units 13:06 13:46 WBC (3.8-10.6) k/uL RBC (3.80-5.40) m/uL Hgb (11.4-16.0) gm/dL Hct (34.0-46.0) % MCV (80.0-100.0) fL MCH (25.0-35.0) pg MCHC (31.0-37.0) g/dL RDW (11.5-15.5) % Plt Count (150-450) k/uL MPV Neutrophils % % Lymphocytes % % Monocytes % % Eosinophils % % Basophils % % Neutrophils # (1.3-7.7) k/uL Lymphocytes # (1.0-4.8) k/uL Monocytes # (0-1.0) k/uL Eosinophils # (0-0.7) k/uL Basophils # (0-0.2) k/uL Sodium (137-145) mmol/L Potassium (3.5-5.1) mmol/L Chloride (98-107) mmol/L Carbon Dioxide (22-30) mmol/L Anion Gap mmol/L BUN (7-17) mg/dL Creatinine (0.52-1.04) mg/dL Est GFR (CKD-EPI)AfAm (>60 ml/min/1.73 sqM) Est GFR (CKD-EPI)NonAf (>60 ml/min/1.73 sqM) Glucose (74-99) mg/dL Plasma Lactic Acid Kle[place] 0.9 (0.7-2.0) mmol/L Calcium (8.4-10.2) mg/dL Urine Color Urine Appearance (Clear) Urine pH (5.0-8.0) Ur Specific [place] (1.001-1.035) Urine Protein (Negative) Urine Glucose (UA) (Negative) Urine Ketones (Negative) Urine Blood (Negative) Urine Nitrite (Negative) Urine Bilirubin (Negative) Urine Urobilinogen (<2.0) mg/dL Ur Leukocyte Esterase (Negative) Influenza Type A (PCR) Not Detected (Not Detectd) Influenza Type B (PCR) Not Detected (Not Detectd) RSV (PCR) Not Detected (Not Detectd) SARS-CoV-2 (PCR) Not Detected (Not Detectd) Disposition Clinical Impression: Dizziness Disposition: HOME SELF-CARE Condition: Good Instructions (If sedation given, give patient instructions): Dizziness (ED) Is patient prescribed a controlled substance at d/c from ED?: No Referrals: Bienvenido Hogue MD [Primary Care Provider] - 1-2 days Time of Disposition: 16:03
--- NOTE | 2022-06-17 14:08 | XR ---
EXAMINATION TYPE: XR chest 2V DATE OF EXAM: 06/17/2022 2:04 PM COMPARISON: Chest radiographs from 03/02/2021. TECHNIQUE: XR chest 2V Frontal and lateral views of the chest. CLINICAL INDICATION:Female, 76 years old with history of cough; FINDINGS: Lungs/Pleura: There is flattening of the diaphragm with increased lucency of the lungs. No evidence o f pneumothorax, pleural effusion or focal consolidation. Chronic senescent parenchymal changes. Pulmonary vascularity: Unremarkable. Heart/mediastinum: Cardiomediastinal silhouette is unremarkable. Atherosclerotic calcifications are seen in the aorta. Musculoskeletal: No acute osseous pathology. Other: surgical clips in the upper abdomen IMPRESSION: 1. No acute cardiopulmonary disease process. 2. COPD changes.
[2022-06-17 14:10] LABS: Potassium 4.2 mmol/L (3.5-5.1)
[2022-06-17 14:43] VITALS: PULSE 61; RESP 17
[2022-06-17 15:10] LABS: Basophils # (A) 0.1 k/uL (0-0.2); Basophils % (A) 1 %; Eosinophils # (A) 0.2 k/uL (0-0.7); Eosinophils % (A) 3 %; HGB 9.4 gm/dL (11.4-16.0); Lymphocytes # (A) 1.4 k/uL (1.0-4.8); Lymphocytes % (A) 22 %; MCH 31.5 pg (25.0-35.0); MCHC 31.5 g/dL (31.0-37.0); MCV 100.1 fL (80.0-100.0); Mean Platelet Volume 7.8; Monocytes # (A) 0.5 k/uL (0-1.0); Monocytes % (A) 7 %; Neutrophils # (A) 4.2 k/uL (1.3-7.7); Neutrophils % (A) 64 %; Platelet Count 197 k/uL (150-450); RDW 13.1 % (11.5-15.5); WBC 6.5 k/uL (3.8-10.6)
[2022-06-17 15:30] LABS: Appearance,Urine Clear (Clear); Bilirubin,Urine Negative (Negative); Blood,Urine Negative (Negative); Color,Urine Colorless; Glucose,Urine (UA) Negative (Negative); Ketones,Urine Negative (Negative); Leukocyte Esterase,Urine Negative (Negative); Nitrite,Urine Negative (Negative); Protein,Urine Negative (Negative); Specific Gravity,Urine 1.006 (1.001-1.035); Urobilinogen,Urine <2.0 mg/dL (<2.0)
[2022-06-17 16:25] VITALS: BP 126/72; TEMP 98.2
== END 2022-06-17 16:30 | disposition home or self-care (01) ==
LOC: EC 12:42
DX: R42 Dizziness and giddiness (principal); J44.9 Chronic obstructive pulmonary disease, unspecified; M19.90 Unspecified osteoarthritis, unspecified site; E07.9 Disorder of thyroid, unspecified; Z88.1 Allergy status to other antibiotic agents; Z88.2 Allergy status to sulfonamides; Z88.5 Allergy status to narcotic agent; Z79.899 Other long term (current) drug therapy; Z79.890 Hormone replacement therapy; Z20.822 Contact with and (suspected) exposure to COVID-19
CPT/HCPCS: 36415; 71046; 80048; 81003; 83605; 85025; 87636; 99284

== ENCOUNTER 2022-10-15 12:54 | Emergency (ER) | payer MEDICARE ==
[2022-10-15 13:02] VITALS: RESP 18; TEMP 98
[2022-10-15] MEDS ORDERED: SODIUM CHLORIDE 0.9% 1,000 ML IV STA (13:48)
--- NOTE | 2022-10-15 13:52 | ED ---
Headache HPI - General Chief Complaint: Headache Stated Complaint: headache Time Seen by Provider: 10/15/22 13:11 Source: patient, family, RN notes reviewed Mode of arrival: ambulatory Limitations: no limitations - History of Present Illness Initial Comments: 77-year-old female presents with complaints of the onset of right ear pain yesterday which is evidence to a shooting type headache on the right. It is intermittent she states it feels similar to when she had an aneurysm several years ago. No surgery was done on the aneurysm. This observation. She has a fevers chills sweats trauma nausea vomiting she really was working out in her yard quite a bit yesterday was a hot day he thinks she drank enough fluids. She states her pain is gone away but the headaches are intermittent she also has a history of arthritic type pains in her neck. She denies any focal deficits to her upper or lower extremities also of note she does have a history of severe renal insufficiency she did have a history of dialysis she's not needed recently but her GFR is in the 15-20% range. MD Complaint: headache - Related Data Home Medications Medication Instructions Recorded Confirmed Docusate [Colace] 200 mg PO DAILY@1500 08/23/18 01/14/22 FLUoxetine HCL [PROzac] 20 mg PO BID 08/23/18 01/14/22 Levothyroxine Sodium [Synthroid] 112 mcg PO MOTUWETHFRSA 08/23/18 01/14/22 Levothyroxine Sodium [Synthroid] 224 mcg PO MURO 08/23/18 01/14/22 Montelukast [Singulair] 10 mg PO HS 08/23/18 01/14/22 Omeprazole 40 mg PO DAILY 11/19/18 01/14/22 Ergocalciferol (Vitamin D2) 50,000 unit PO MOWEFR 01/31/19 01/14/22 [Vitamin D2] Sodium Bicarbonate Tab 650 mg PO TID 07/22/19 01/14/22 traMADol HCL [Ultram] 50 mg PO TID PRN 07/22/19 01/14/22 Docusate [Colace] 100 mg PO HS 12/06/19 01/14/22 Lidocaine-Prilocaine Cream [Emla 1 applic TOPICAL MOWEFR 12/06/19 01/14/22 Cream 2.5%/2.5%] Loratadine 10 mg PO DAILY 12/06/19 01/14/22 Magnesium Chloride [Mag64] 64 mg PO DAILY 12/06/19 01/14/22 Bumetanide [Bumex] 1 mg PO DAILY 01/25/21 01/14/22 Calcium Acetate [Phoslo] 2,001 mg PO TID-W/MEALS 01/25/21 01/14/22 Calcium Acetate [Phoslo] 667 - 1,334 mg PO TID BETWEEN MEALS 01/25/21 01/14/22 Methenamine Hippurate 1 gm PO BID 01/25/21 01/14/22 Mirabegron [Myrbetriq] 25 mg PO DAILY 01/25/21 01/14/22 levOCARNitine [Levocarnitine] 330 mg PO DAILY 01/25/21 01/14/22 metroNIDAZOLE 250 mg PO DAILY 01/25/21 01/14/22 Previous Rx's Medication Instructions Recorded Ciprofloxacin HCl [Cipro] 250 mg PO Q12HR 5 Days #10 tab 01/25/21 Allergies Allergy/AdvReac Type Severity Reaction Status Date / Time adhesive tape Allergy Rash/Hives Verified 06/17/22 12:46 Sulfa (Sulfonamide Allergy Itching Verified 06/17/22 12:46 Antibiotics) tetracycline Allergy Nausea & Verified 06/17/22 12:46 Vomiting codeine AdvReac Nausea Verified 06/17/22 12:46 epoetin beta [From Mircera] AdvReac Unknown Verified 06/17/22 12:46 Review of Systems ROS Statement: Those systems with pertinent positive or pertinent negative responses have been documented in the HPI. ROS Other: All systems not noted in ROS Statement are negative. Past Medical History Past Medical History: Cancer, COPD, Osteoarthritis (OA), Renal Disease, Thyroid Disorder Additional Past Medical History / Comment(s): kidney stones and UTI,steroid injection October 2018 hx lymphedema, hx pulmonary fibrosis, hx graves,hx rt foot torn ligaments,hx kidney stones, hx osteoporosis,hypotension, chronic respiratory failure on 2 L nasal cannula at night & prn, vitamin D deficiency, hypocalcemia. SKIN CANCER REMOVED FROM BRIDGE OF NOSE. History of Any Multi-Drug Resistant Organisms: CRE Date of last positivie culture/infection: 10/16/18 MDRO-CRE PER [facility] NOT [facility] MDRO Source:: Urine Past Surgical History: Bariatric Surgery Additional Past Surgical History / Comment(s): hx bariatric surgery-Kye En Y,lung biopsy,radioactive iodine-tx thyroid,rectal and bladder suspensions,vaginal surgery as a child,partha carpel tunnel,rt knee meniscus repair,D&C x3, left arm fistula 02/08/19 Past Anesthesia/Blood Transfusion Reactions: Previous Problems w/ Anesthesia, Postoperative Nausea & Vomiting (PONV) Additional Past Anesthesia/Blood Transfusion Reaction / Comment(s): decrease bp with anesthesia,no problems with prior blood transfusion Past Psychological History: No Psychological Hx Reported Smoking Status: Never smoker Past Alcohol Use History: None Reported Past Drug Use History: None Reported - Past Family History Father Family Medical History: Pulmonary Embolus Additional Family Medical History / Comment(s): . Mother Family Medical History: Cancer Additional Family Medical History / Comment(s): . Sister(s) Family Medical History: Cancer Additional Family Medical History / Comment(s): . Daughter(s) Additional Family Medical History / Comment(s): lymphedema in legs Brother(s) Family Medical History: Cancer Additional Family Medical History / Comment(s): skin cancer General Exam - General Exam Comments Initial Comments: This is a well-developed frail-appearing female Limitations: no limitations General appearance: alert, in no apparent distress Head exam: Present: atraumatic, normocephalic, normal inspection Eye exam: Present: normal appearance, PERRL, EOMI. Absent: scleral icterus, conjunctival injection, periorbital swelling ENT exam: Present: mucous membranes dry Neck exam: Present: normal inspection, other (Noted range of motion some tenderness palpation of the base of the skull over the trapezius musculature. Also no stridor JVD or bruits). Absent: tenderness, meningismus, lymphadenopathy Respiratory exam: Present: normal lung sounds bilaterally. Absent: respiratory distress, wheezes, rales, rhonchi, stridor Cardiovascular Exam: Present: regular rate, normal rhythm, normal heart sounds. Absent: systolic murmur, diastolic murmur, rubs, gallop, clicks GI/Abdominal exam: Present: soft, normal bowel sounds. Absent: distended, tend erness, guarding, rebound, rigid Extremities exam: Present: normal inspection, full ROM, normal capillary refill. Absent: tenderness, pedal edema, joint swelling, calf tenderness Back exam: Present: normal inspection Neurological exam: Present: alert, oriented X3, CN II-XII intact Psychiatric exam: Present: normal affect, normal mood Skin exam: Present: warm, dry, intact, normal color. Absent: rash Course Vital Signs 10/15/22 12:59 Temperature 98.0 F Pulse Rate 78 Respiratory 18 Rate Blood Pressure 119/78 O2 Sat by Pulse 98 Oximetry Medical Decision Making - Medical Decision Making Reevaluation patient finds that she is pain-free she feels much improved after the medication was given I did discuss this with her and her she would like to go home she'll be discharged with instructions increase oral fluids follow-up with her doctor and return as needed.Was pt. sent in by a medical professional or institution (, PA, RACE RELATIONS ADVISER, urgent care, hospital, or snf...) When possible be specific @ -No Did you speak to anyone other than the patient for history (EMS, parent, family, police, friend...)? What history was obtained from this source @ -No Did you review nursing and triage notes (agree or disagree)? Why? @ -I reviewed and agree with nursing and triage notes Were old charts reviewed (outside hosp., previous admission, EMS record, old EKG, old radiological studies, urgent care reports/EKG's, snf records)? Report findings @ -No old charts were reviewed Differential Diagnosis (chest pain, altered mental status, abdominal pain women, abdominal pain men, vaginal bleeding, weakness, fever, dyspnea, syncope, headache, dizziness, GI bleed, back pain, seizure, CVA, palpatations, mental health, musculoskeletal)? @ -Headache EKG interpreted by me (3pts min.). @ -Not done X-rays interpreted by me (1pt min.). @ -None done CT interpreted by me (1pt min.). @ -As above U/S interpreted by me (1pt. min.). @ -None done What testing was considered but not performed or refused? (CT, X-rays, U/S, labs)? Why? @ -CT with contrast over the patient does have a history of renal insufficiency this is not a viable option What meds were considered but not given or refused? Why? @ -None Did you discuss the management of the patient with other professionals (professionals i.e. , PA, RACE RELATIONS ADVISER, lab, RT, psych nurse, healthcare social worker, freelance photographer, teacher, international first officer, shoe parts caser)? Give summary @ -No Was smoking cessation discussed for >3mins.? @ -No Was critical care preformed (if so, how long)? @ -No Were there social determinants of health that impacted care today? How? (Ho melessness, low income, unemployed, alcoholism, drug addiction, transportation, low edu. Level, literacy, decrease access to med. care, fci, rehab)? @ -No Was there de-escalation of care discussed even if they declined (Discuss DNR or withdrawal of care, Hospice)? DNR status @ -No What co-morbidities impacted this encounter? (DM, HTN, Smoking, COPD, CAD, Cancer, CVA, ARF, Chemo, Hep., AIDS, mental health diagnosis, sleep apnea, morbid obesity)? @ -History of aneurysms, COPD, cancer, thyroid disease, history of osteoarthritis Was patient admitted / discharged? Hospital course, mention meds given and route, prescriptions, significant lab abnormalities, going to OR and other pert inent info. @ -Patient was discharged home with instructions for increasing her oral fluids and follow-up with her doctor return if any problems Undiagnosed new problem with uncertain prognosis? @ -No Drug Therapy requiring intensive monitoring for toxicity (Heparin, Nitro, Insulin, Cardizem)? @ -No Were any procedures done? @ -No Diagnosis/symptom? @ -Acute cephalgia, dehydration, myofascial pain Acute, or Chronic, or Acute on Chronic? @ -Acute Uncomplicated (without systemic symptoms) or Complicated (systemic symptoms)? @ -default Side effects of treatment? @ -No Exacerbation, Progression, or Severe Exacerbation? @ -No Poses a threat to life or bodily function? How? (Chest pain, [place], [place], pneumonia, PE, COPD, DKA, ARF, appy, cholecystitis, CVA, Diverticulitis, Homicidal, Suicidal, threat to staff... and all critical care pts) @ -No - Lab Data Result diagrams: 10/15/22 14:15 Lab Results 10/15/22 Range/Units 14:15 Sodium 132 L (137-145) mmol/L Potassium 4.0 (3.5-5.1) mmol/L Chloride 92 L (98-107) mmol/L Carbon Dioxide 28 (22-30) mmol/L Anion Gap 12 mmol/L BUN 80 H (7-17) mg/dL Creatinine 2.87 H (0.52-1.04) mg/dL Est GFR (CKD-EPI)AfAm 17 (>60 ml/min/1.73 sqM) Est GFR (CKD-EPI)NonAf 15 (>60 ml/min/1.73 sqM) Glucose 101 H (74-99) mg/dL Calcium 11.4 H (8.4-10.2) mg/dL Magnesium 2.3 (1.6-2.3) mg/dL Total Bilirubin 0.7 (0.2-1.3) mg/dL AST 30 (14-36) U/L ALT 25 (4-34) U/L Alkaline Phosphatase 41 (38-126) U/L Creatine Kinase 60 (30-135) U/L Total Protein 6.6 (6.3-8.2) g/dL Albumin 4.1 (3.5-5.0) g/dL - Radiology Data Interpreted by me: I did interpret the imaging no evidence of acute processes. Disposition Clinical Impression: Headache, Myofascial pain, Dehydration Disposition: HOME SELF-CARE Condition: Good Instructions (If sedation given, give patient instructions): Acute Headache (ED), Musculoskeletal Pain (ED), Dehydration (ED) Additional Instructions: [id number] pain medication for pain Is patient prescribed a controlled substance at d/c from ED?: No Referrals: Bienvenido Hogue MD [Primary Care Provider] - 1-2 days Decision Date: 10/15/22 Decision Time: 15:39
[2022-10-15 14:41] LABS: Albumin 4.1 g/dL (3.5-5.0); Calcium 11.4 mg/dL (8.4-10.2); Magnesium 2.3 mg/dL (1.6-2.3); Total Bilirubin 0.7 mg/dL (0.2-1.3); Total Protein 6.6 g/dL (6.3-8.2)
--- NOTE | 2022-10-15 15:00 | CT ---
EXAMINATION TYPE: CT brain wo con DATE OF EXAM: 10/15/2022 COMPARISON: 12/20/2019 INDICATION: severe headache DLP: 1115.4 mGycm, Automated exposure control for dose reduction was used. CONTRAST: None CT of the brain is performed utilizing 3 mm thick sections through the posterior fossa and 3 mm thick sections through the remaining calvarium. Study is performed within 24 hours of arrival to the hosp ital. No abnormal hyperdensity is present to suggest an acute intracranial hemorrhage. No mass lesion is evident. No acute infarcts are evident. Scattered periventricular white matter hypodensity is present, likely on the basis of chronic white matter ischemic changes. Ventricles and sulci are mildly prominent for the patient age. Paranasal sinuses and mastoid air cells within the [id number] are clear. IMPRESSIONS: 1. Age-related atrophy and chronic appearing periventricular white matter ischemic-type changes.
--- NOTE | 2022-10-15 15:50 | ED ---
Medical Decision Making - Medical Decision Making Medication addition - Lab Data Result diagrams: 10/15/22 14:15 Lab Results 10/15/22 Range/Units 14:15 Sodium 132 L (137-145) mmol/L Potassium 4.0 (3.5-5.1) mmol/L Chloride 92 L (98-107) mmol/L Carbon Dioxide 28 (22-30) mmol/L Anion Gap 12 mmol/L BUN 80 H (7-17) mg/dL Creatinine 2.87 H (0.52-1.04) mg/dL Est GFR (CKD-EPI)AfAm 17 (>60 ml/min/1.73 sqM) Est GFR (CKD-EPI)NonAf 15 (>60 ml/min/1.73 sqM) Glucose 101 H (74-99) mg/dL Calcium 11.4 H (8.4-10.2) mg/dL Magnesium 2.3 (1.6-2.3) mg/dL Total Bilirubin 0.7 (0.2-1.3) mg/dL AST 30 (14-36) U/L ALT 25 (4-34) U/L Alkaline Phosphatase 41 (38-126) U/L Creatine Kinase 60 (30-135) U/L Total Protein 6.6 (6.3-8.2) g/dL Albumin 4.1 (3.5-5.0) g/dL Disposition Clinical Impression: Headache, Myofascial pain, Dehydration Disposition: HOME SELF-CARE Condition: Good Instructions (If sedation given, give patient instructions): Dehydration (ED), Acute Headache (ED), Musculoskeletal Pain (ED) Additional Instructions: [id number] pain medication for pain Prescriptions: traMADol HCL 50 mg PO Q6H 3 Days #12 tab Is patient prescribed a controlled substance at d/c from ED?: Yes When asked, does pt state using other controlled substances?: No If prescribed controlled substance>3 days was MAPS reviewed?: Prescribed <3 Days If opioid is for acute pain is fill amount 7 days or less?: Yes If Rx opioid, was Start Talking consent form obtained?: Yes Referrals: Bienvenido Hogue MD [Primary Care Provider] - 1-2 days Decision Date: 10/15/22 Decision Time: 15:50
[2022-10-15 16:02] VITALS: BP 124/71; PULSE 66
== END 2022-10-15 16:02 | disposition home or self-care (01) ==
LOC: EC 12:54
DX: E86.0 Dehydration (principal); M79.18 Myalgia, other site; J44.9 Chronic obstructive pulmonary disease, unspecified; M19.90 Unspecified osteoarthritis, unspecified site; E07.9 Disorder of thyroid, unspecified; Z79.890 Hormone replacement therapy; Z79.899 Other long term (current) drug therapy; Z88.1 Allergy status to other antibiotic agents; Z88.2 Allergy status to sulfonamides; Z88.6 Allergy status to analgesic agent; Z88.8 Allergy status to other drugs, medicaments and biological substances; Z91.09 Other allergy status, other than to drugs and biological substances
CPT/HCPCS: 36415; 80053; 82550; 83735; 70450; 99284; 96374; 96361 ×2; J1790

== ENCOUNTER → 2022-11-11 | Outpatient (CLI) | payer MEDICARE ==
--- NOTE | 2022-11-13 18:55 | XR ---
EXAMINATION TYPE: XR chest 2V DATE OF EXAM: 11/11/2022 5:02 PM COMPARISON: Chest radiographs from 06/17/2022 TECHNIQUE: XR chest 2V Frontal and lateral views of the chest. CLINICAL INDICATION:Female, 77 years old with history of J44.1; FINDINGS: Lungs/Pleura: There is flattening of the diaphragm with increased lucency of the lungs. No evidence o f pneumothorax, pleural effusion or focal consolidation. Pulmonary vascularity: Unremarkable. Heart/mediastinum: Cardiomediastinal silhouette is unremarkable. Atherosclerotic calcifications are seen in the aorta. Musculoskeletal: No acute osseous pathology. IMPRESSION: No acute cardiopulmonary disease/process.
== END | disposition home or self-care (01) ==
LOC: RADXRMAIN 16:42
PROVIDERS: ATTEND Internal Medicine Geriatric Medicine
DX: J44.1 Chronic obstructive pulmonary disease with (acute) exacerbation (principal)
CPT/HCPCS: 71046

== ENCOUNTER → 2023-01-27 | Outpatient (CLI) | payer MEDICARE ==
[2023-01-27 12:42] VITALS: BP 98/65; PULSE 77; RESP 16; TEMP 97.9
== END ==
LOC: PROCWHC3 12:28
PROVIDERS: ATTEND Internal Medicine
DX: M81.0 Age-related osteoporosis without current pathological fracture (principal)
CPT/HCPCS: 96372

== ENCOUNTER 2023-02-07 11:32 | Inpatient (IN) | payer MEDICARE ==
--- NOTE | 2023-02-07 12:18 | ED ---
General Adult HPI - General Chief complaint: Recheck/Abnormal Lab/Rx Stated complaint: kidney failure sent by pcp to be admitted Time Seen by Provider: 02/07/23 11:42 Source: patient Mode of arrival: ambulatory Limitations: no limitations - History of Present Illness Initial comments: Dictation was produced using [employer] dictation software. please excuse any grammatical, word or spelling errors. Chief Complaint: 77-year-old female presents to the ER for abnormal outpatient labs History of Present Illness: Patient is 69-year-old female she has past medical history of kidney disease. She has not had dialysis in approximately 1 year. She had some blood work drawn because she went to go see her primary care doctor for chief complaint of weakness. She states that she blood was drawn she was called this morning told to come to the ER for admission for elevated renal markers. 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 Those systems with pertinent positive or negative responses have been documented in the HPI. All other systems are other negative and/or noncontributory. - Related Data Home Medications Medication Instructions Recorded Confirmed RX: FLUoxetine HCL [PROzac] 20 mg PO DIRECTED 08/23/18 02/07/23 RX: Montelukast [Singulair] 10 mg PO HS 08/23/18 02/07/23 RX: Omeprazole 40 mg PO AC-BID 11/19/18 02/07/23 RX: Ergocalciferol (Vitamin D2) 50,000 unit PO MOWEFR 01/31/19 02/07/23 [Vitamin D2] RX: Sodium Bicarbonate Tab 1,950 mg PO TID 07/22/19 02/07/23 RX: traMADol HCL [Ultram] 50 mg PO Q6H PRN 07/22/19 02/07/23 RX: Loratadine 10 mg PO DAILY 12/06/19 02/07/23 RX: Magnesium Chloride [Mag64] 64 mg PO DAILY 12/06/19 02/07/23 Bumetanide [Bumex] 1 mg PO DAILY 01/25/21 02/07/23 Calcium Acetate [Phoslo] 1,334 mg PO TID-W/MEALS 01/25/21 02/07/23 Mirabegron [Myrbetriq] 25 mg PO DAILY 01/25/21 02/07/23 RX: Methenamine Hippurate 1 gm PO BID 01/25/21 02/07/23 RX: metroNIDAZOLE 250 mg PO DAILY 01/25/21 02/07/23 Albuterol Inhaler [Ventolin Hfa 2 puff INHALATION RT-Q6H PRN 02/07/23 02/07/23 Inhaler] Benzonatate [Tessalon Perle] 200 mg PO TID PRN 02/07/23 02/07/23 Calcium Acetate [Phoslo] 667 mg PO TID PRN 02/07/23 02/07/23 Docusate [Colace] 200 mg PO BID 02/07/23 02/07/23 Fluticasone Propion/Salmeterol 1 puff INHALATION RT-BID 02/07/23 02/07/23 [Wixela 250-50 Inhub] Levothyroxine Sodium [Synthroid] 150 mcg PO DIRECTED 02/07/23 02/07/23 Midodrine HCl [ProAmantine] 2.5 mg PO BID PRN 02/07/23 02/07/23 Potassium Chloride [Klor-Con 8] 8 meq PO DAILY 02/07/23 02/07/23 calcitrioL [Calcitriol] 1 mcg PO BID 02/07/23 02/07/23 Allergies Allergy/AdvReac Type Severity Reaction Status Date / Time adhesive tape Allergy Rash/Hives Verified 02/07/23 13:31 Sulfa (Sulfonamide Allergy Itching Verified 02/07/23 13:31 Antibiotics) tetracycline Allergy Nausea & Verified 02/07/23 13:31 Vomiting codeine AdvReac Nausea Verified 02/07/23 13:31 epoetin beta [From Mircera] AdvReac Unknown Verified 02/07/23 13:31 Review of Systems ROS Statement: Those systems with pertinent positive or pertinent negative responses have been documented in the HPI. ROS Other: All systems not noted in ROS Statement are negative. Past Medical History Past Medical History: Asthma, Cancer, COPD, Osteoarthritis (OA), Renal Disease, Thyroid Disorder Additional Past Medical History / Comment(s): kidney stones and UTI,steroid injection October 2018 hx lymphedema, hx pulmonary fibrosis, hx graves,hx rt foot torn ligaments,hx kidney stones, hx osteoporosis,hypotension, chronic respiratory failure on 2 L nasal cannula at night & prn, vitamin D deficiency, hypocalcemia. SKIN CANCER REMOVED FROM BRIDGE OF NOSE., PMR History of Any Multi-Drug Resistant Organisms: CRE Date of last positivie culture/infection: 10/16/18 MDRO-CRE PER [facility] NOT [facility] MDRO Source:: Urine Past Surgical History: Bariatric Surgery Additional Past Surgical History / Comment(s): hx bariatric surgery-Kye En Y, lung biopsy,radioactive iodine-tx thyroid,rectal and bladder suspensions,vaginal surgery as a child,partha carpel tunnel,rt knee meniscus repair,D&C x3, left arm fistula 02/08/19 Past Anesthesia/Blood Transfusion Reactions: Previous Problems w/ Anesthesia, Postoperative Nausea & Vomiting (PONV) Additional Past Anesthesia/Blood Transfusion Reaction / Comment(s): decrease bp with anesthesia,no problems with prior blood transfusion Past Psychological History: No Psychological Hx Reported Smoking Status: Never smoker Past Alcohol Use History: None Reported Past Drug Use History: None Reported - Past Family History Father Family Medical History: Pulmonary Embolus Additional Family Medical History / Comment(s): . Mother Family Medical History: Cancer Additional Family Medical History / Comment(s): . Sister(s) Family Medical History: Cancer Additional Family Medical History / Comment(s): . Daughter(s) Additional Family Medical History / Comment(s): lymphedema in legs Brother(s) Family Medical History: Cancer Additional Family Medical History / Comment(s): skin cancer General Exam - General Exam Comments Initial Comments: PHYSICAL EXAM: General Impression: Alert and oriented x3, not in acute distress HEENT: Normocephalic atraumatic, extra-ocular movements intact, pupils equal and reactive to light bilaterally, mucous membranes moist. Cardiovascular: Heart regular rate and rhythm Chest: Able to complete full sentences, no retractions, no tachypnea Abdomen: abdomen soft, non-tender, non-distended, no organomegaly Musculoskeletal: Pulses present and equal in all extremities, no peripheral edema Motor: no focal deficits noted Neurological: CN II-XII grossly intact, no focal motor or sensory deficits noted Skin: Intact with no visualized rashes Psych: Normal affect and mood Limitations: no limitations Course Vital Signs 02/07/23 11:39 Temperature 98.5 F Pulse Rate 82 Respiratory 20 Rate Blood Pressure 107/73 O2 Sat by Pulse 99 Oximetry Medical Decision Making - Medical Decision Making Was pt. sent in by a medical professional or institution (ANUPAM Roche, [employer], urgent care, hospital, or assisted...) When possible be specific @ -No Did you speak to anyone other than the patient for history (EMS, parent, family, police, friend...)? What history was obtained from this source @ -No Did you review nursing and triage notes (agree or disagree)? Why? @ -I reviewed and agree with nursing and triage notes Were old charts reviewed (outside hosp., previous admission, EMS record, old EKG, old radiological studies, urgent care reports/EKG's, assisted records)? Report findings @ -No old charts were reviewed Differential Diagnosis (chest pain, altered mental status, abdominal pain women, abdominal pain men, vaginal bleeding, musculoskeletal, weakness, fever, dyspnea, syncope, headache, dizziness, GI bleed, back pain, seizure, CVA, palpatations, mental health)? @ -Differential Weakness: Hypoglycemia, shock, sepsis, hyponatremia, anemia, infection, SD, ETOH, adverse medicine reaction, overdose, stroke, this is not meant to be an all-inclusive list. EKG interpreted by me (3pts min.). @ -None done X-rays interpreted by me (1pt min.). @ -None done CT interpreted by me (1pt min.). @ -None done U/S interpreted by me (1pt. min.). @ -None done What testing was considered but not performed or refused? (CT, X-rays, U/S, labs)? Why? @ -None What meds were considered but not given or refused? Why? @ -None Did you discuss the management of the patient with other professionals (mounika carlos i.e. ANUPAM Roche, [employer], lab, RT, psych nurse, social services technician, insect control aide, teacher, attendance officer, watch caser)? Give summary @ -Case discussed with admitting physician for admission Was smoking cessation discussed for >3mins.? @ -No Was critical care preformed (if so, how long)? @ -No Were there social determinants of health that impacted care today? How? (Homelessness, low income, unemployed, alcoholism, drug addiction, transportation, low edu. Level, literacy, decrease access to med. care, fdc, rehab)? @ -No Was there de-escalation of care discussed even if they declined (Discuss DNR or withdrawal of care, Hospice)? DNR status @ -No What co-morbidities impacted this encounter? (DM, HTN, Smoking, COPD, CAD, Cancer, CVA, ARF, Chemo, Hep., AIDS, mental health diagnosis, sleep apnea, morbid obesity)? @ -None Was patient admitted / discharged? Hospital course, mention meds given and route, prescriptions, significant lab abnormalities, going to OR and other pert inent info. @ -77-year-old male presents to the emergency department for elevated renal function. Undiagnosed new problem with uncertain prognosis? @ -No Drug Therapy requiring intensive monitoring for toxicity (Heparin, Nitro, Insulin, Cardizem)? @ -No Were any procedures done? @ -No Diagnosis/symptom? Acute, or Chronic, or Acute on Chronic? Uncomplicated (without systemic symptoms) or Complicated (systemic symptoms)? @ -Kidney failure Side effects of treatment? @ -No Exacerbation, Progression, or Severe Exacerbation? @ -No Poses a threat to life or bodily function? How? (Chest pain, USA, SD, pneumonia, PE, COPD, DKA, ARF, appy, cholecystitis, CVA, Diverticulitis, Homicidal, Suicidal, threat to staff... and all critical care pts) @ -yes - Lab Data Result diagrams: 02/07/23 12:07 02/07/23 12:07 Lab Results 02/07/23 02/07/23 02/07/23 Range/Units 12:07 12:07 12:56 WBC 8.6 (3.8-10.6) k/uL RBC 2.99 L (3.80-5.40) m/uL Hgb 9.8 L (11.4-16.0) gm/dL Hct 30.7 L (34.0-46.0) % MCV 102.4 H (80.0-100.0) fL MCH 32.7 (25.0-35.0) pg MCHC 31.9 (31.0-37.0) g/dL RDW 12.7 (11.5-15.5) % Plt Count 244 (150-450) k/uL MPV 8.1 Neutrophils % 64 % Lymphocytes % 24 % Monocytes % 8 % Eosinophils % 2 % Basophils % 1 % Neutrophils # 5.5 (1.3-7.7) k/uL Lymphocytes # 2.1 (1.0-4.8) k/uL Monocytes # 0.7 (0-1.0) k/uL Eosinophils # 0.2 (0-0.7) k/uL Basophils # 0.1 (0-0.2) k/uL Macrocytosis Slight Sodium 135 L (137-145) mmol/L Potassium 4.7 (3.5-5.1) mmol/L Chloride 104 (98-107) mmol/L Carbon Dioxide 22 (22-30) mmol/L Anion Gap 9 mmol/L BUN 75 H (7-17) mg/dL Creatinine 3.16 H (0.52-1.04) mg/dL Est GFR (CKD-EPI)AfAm 16 (>60 ml/min/1.73 sqM) Est GFR (CKD-EPI)NonAf 13 (>60 ml/min/1.73 sqM) Glucose 102 H (74-99) mg/dL Calcium 9.9 (8.4-10.2) mg/dL Magnesium 2.2 (1.6-2.3) mg/dL Urine Color Colorless Urine Appearance Clear (Clear) Urine pH 5.5 (5.0-8.0) Ur Specific Whiting 1.010 (1.001-1.035) Urine Protein Negative (Negative) Urine Glucose (UA) Negative (Negative) Urine Ketones Negative (Negative) Urine Blood Negative (Negative) Urine Nitrite Negative (Negative) Urine Bilirubin Negative (Negative) Urine Urobilinogen <2.0 (<2.0) mg/dL Ur Leukocyte Esterase Trace H (Negative) Urine RBC 1 (0-5) /hpf Urine WBC 9 H (0-5) /hpf Urine WBC Clumps Rare H (None) /hpf Ur Squamous Epith Cells 1 (0-4) /hpf Urine Bacteria Occasional H (None) /hpf Hyaline Casts 1 (0-2) /lpf Urine Mucus Rare H (None) /hpf Disposition Clinical Impression: PRIYANKA (acute kidney injury) Disposition: ADMITTED IP TO THIS [facility] Condition: Fair Referrals: Bienvenido Hogue MD [Primary Care Provider] - 1-2 days Decision Time: 13:45
[2023-02-07 12:25] LABS: Basophils # (A) 0.1 k/uL (0-0.2); Basophils % (A) 1 %; Eosinophils # (A) 0.2 k/uL (0-0.7); Eosinophils % (A) 2 %; HCT 30.7 % (34.0-46.0); HGB 9.8 gm/dL (11.4-16.0); Lymphocytes # (A) 2.1 k/uL (1.0-4.8); Lymphocytes % (A) 24 %; MCH 32.7 pg (25.0-35.0); MCHC 31.9 g/dL (31.0-37.0); MCV 102.4 fL (80.0-100.0); Macrocytosis Slight; Mean Platelet Volume 8.1; Monocytes # (A) 0.7 k/uL (0-1.0); Monocytes % (A) 8 %; Neutrophils # (A) 5.5 k/uL (1.3-7.7); Neutrophils % (A) 64 %; Platelet Count 244 k/uL (150-450); RBC 2.99 m/uL (3.80-5.40); RDW 12.7 % (11.5-15.5); WBC 8.6 k/uL (3.8-10.6)
[2023-02-07 12:45] LABS: African American GFR (CKD) 16 (>60 ml/min/1.73 sqM); Anion Gap 9 mmol/L; Blood Urea Nitrogen 75 mg/dL (7-17); Calcium 9.9 mg/dL (8.4-10.2); Carbon Dioxide 22 mmol/L (22-30); Chloride 104 mmol/L (98-107); Glucose 102 mg/dL (74-99); Magnesium 2.2 mg/dL (1.6-2.3); Non-African American GFR(CKD) 13 (>60 ml/min/1.73 sqM); Potassium 4.7 mmol/L (3.5-5.1); Sodium 135 mmol/L (137-145)
[2023-02-07 13:17] LABS: Appearance,Urine Clear (Clear); Bacteria,Urine Occasional /hpf; Bilirubin,Urine Negative (Negative); Blood,Urine Negative (Negative); Color,Urine Colorless; Glucose,Urine (UA) Negative (Negative); Hyaline Casts,Urine 1 /lpf (0-2); Ketones,Urine Negative (Negative); Leukocyte Esterase,Urine Trace (Negative); Mucus,Urine Rare /hpf; Nitrite,Urine Negative (Negative); PH, Urine 5.5 (5.0-8.0); Protein,Urine Negative (Negative); RBC,Urine 1 /hpf (0-5); Squamous Epithelial Cell,Urine 1 /hpf (0-4); Urobilinogen,Urine <2.0 mg/dL (<2.0); WBC,Urine 9 /hpf (0-5)
[2023-02-07] MEDS ORDERED: NALOXONE 0.4 MG/ML 1 ML VIAL IV PRN (13:43)
[2023-02-07] MEDS ORDERED: ALBUTEROL NEBULIZED 2.5 MG/3 ML INHALATION PRN (16:44)
[2023-02-07] MEDS: PANTOPRAZOLE 40 MG TABLET PO SCH (18:13)
--- NOTE | 2023-02-07 19:43 | HP ---
HISTORY AND PHYSICAL CHIEF COMPLAINT: Renal failure. HISTORY OF PRESENT ILLNESS: This is a 77-year-old woman with a past medical history of chronic kidney disease, had hemodialysis about 1-1/2 years ago. Currently, the patient is complaining of increasing weakness, tiredness, cough, diarrhea, vomiting, and the PCP sent the patient to [facility] for further evaluation and possible new initiation of hemodialysis. The patient had a failed AV graft fistula on her left upper extremity. There is no history of any fever, rigors, or chills. PAST MEDICAL HISTORY: Reviewed include asthma, previous renal failure, COPD. Rest of the history and rest of the chart is also reviewed. HOME MEDICATIONS: Reviewed include Synthroid. Dose and rest of medications reviewed. ALLERGIES: Reviewed include tape. FAMILY HISTORY: History of pulmonary embolus. SOCIAL HISTORY: No history of smoking or alcohol. REVIEW OF SYSTEMS: Fourteen-point review is negative except as mentioned earlier. PHYSICAL EXAMINATION: VITAL SIGNS: Pulse 82, blood pressure 107/70, respirations 20. HEENT: Conjunctivae normal. NECK: No JVD. CARDIOVASCULAR: S1, S2. RESPIRATIONS: Breath sounds diminished at the bases. Scattered rhonchi and crackles. ABDOMEN: Soft, nontender. LEGS: No edema. NERVOUS SYSTEM: Nonfocal. SKIN: No ulcer, rash, or bleeding. JOINTS: No active deforming arthropathy. LABORATORY DATA: Creatinine is 3.1. The rest of the labs are noted. ASSESSMENT: 1. Acute on chronic renal failure. 2. History of chronic kidney disease, on hemodialysis. 3. History of asthma, chronic obstructive pulmonary disease. 4. History of degenerative joint disease. 5. Multiple complex medical issues. 6. History of bariatric surgery. RECOMMENDATIONS AND DISCUSSION: This is a 77-year-old woman, who presented with multiple complex medical issues. I would recommend continue the current medications. Continue symptomatic treatment. Otherwise, I would recommend Nephrology consultation and resume the home medications. Avoid nephrotoxic medications. I would also recommend a chest x-ray and to evaluate the fluid electrolyte balance also. Continue to monitor. Further recommendations to follow. MMODL / IJN: [id number] /
[2023-02-07] MEDS: DOCUSATE 100 MG CAP PO SCH (20:14)
[2023-02-07] MEDS: SODIUM BICARBONATE TAB 650 MG TAB PO SCH (20:22)
[2023-02-07] MEDS: BENZONATATE 100 MG CAP PO PRN (20:22)
[2023-02-07] MEDS: CALCIUM ACETATE 667 MG TAB PO PRN (20:22)
[2023-02-07] MEDS: MONTELUKAST 10 MG TAB PO SCH (20:22)
[2023-02-07] MEDS: SYMBICORT 80-4.5 MCG INHALER INHALATION SCH (20:29)
[2023-02-07] MEDS: METHENAMINE HIPPURATE 1 GM PO SCH (20:41)
[2023-02-08] MEDS: LEVOTHYROXINE 75 MCG TAB PO SCH (05:48)
--- NOTE | 2023-02-08 07:32 | XR ---
EXAMINATION TYPE: XR chest 1V portable DATE OF EXAM: 02/08/2023 COMPARISON: 11/11/2022 INDICATION: CHF, renal failure TECHNIQUE: Single frontal view of the chest is obtained. FINDINGS: The heart size is normal. The pulmonary vasculature is normal. The lungs are clear. IMPRESSION: 1. No acute pulmonary process.
[2023-02-08] MEDS: SYMBICORT 80-4.5 MCG INHALER INHALATION SCH ×2 (07:53→20:43)
[2023-02-08] MEDS ORDERED: POTASSIUM CHLORIDE ER 10 MEQ TAB.ER.PRT PO SCH (09:00)
[2023-02-08] MEDS ORDERED: BUMETANIDE 1 MG TAB PO SCH (09:00)
[2023-02-08] MEDS: SODIUM BICARBONATE TAB 650 MG TAB PO SCH ×3 (09:08→20:56)
[2023-02-08] MEDS: DOCUSATE 100 MG CAP PO SCH ×3 (09:08→20:09)
[2023-02-08] MEDS: PANTOPRAZOLE 40 MG TABLET PO SCH (09:09)
[2023-02-08] MEDS: MAGNESIUM OXIDE 400 MG TAB PO SCH (09:09)
[2023-02-08] MEDS: LORATADINE 10 MG TAB PO SCH (09:09)
[2023-02-08] MEDS: FLUoxetine HCL 20 MG CAP PO SCH (09:09)
[2023-02-08] MEDS: METHENAMINE HIPPURATE 1 GM PO SCH ×2 (09:10→19:59)
[2023-02-08] MEDS: Mirabegron [Myrbetriq] 25 MG Tab.Er.24h PO SCH (09:10)
[2023-02-08] MEDS: CALCIUM ACETATE 667 MG TAB PO PRN (09:12)
[2023-02-08 11:27] LABS: HGB 8.6 d/dL (12.0-15.0); MCH 32.8 pg (27.0-32.0); MCHC 30.7 d/dL (32.0-37.0); MCV 106.9 FL (80.0-97.0); Mean Platelet Volume 10.2 FL (9.5-12.2); NRBC Per 100 WBC 0 X 10*3/uL (0.00-0.01); Platelet Count 216 X 10*3/uL (140-440); RBC 2.62 X 10*6/uL (4.10-5.20); RDW 12.4 % (11.5-14.5); WBC 8.41 X 10*3/uL (4.50-10.00)
[2023-02-08 11:34] LABS: ALT 25 U/L (8-44); AST 18 U/L (13-35); Albumin 3.5 d/dL (3.8-4.9); Albumin/Globulin Ratio 2.19 Ratio (1.60-3.17); Alkaline Phosphatase 47 U/L (41-126); BUN/Creat Ratio 16.38 Ratio (12.00-20.00); Blood Urea Nitrogen 63.9 mg/dL (9.0-27.0); Calcium 9.8 mg/dL (8.7-10.3); Carbon Dioxide 20.7 mmol/L (21.6-31.8); Chloride 104 mmol/L (96-109); Globulin 1.6 d/dL (1.6-3.3); Glucose 96 mg/dL (70-110); Magnesium 2.3 mg/dL (1.5-2.4); Potassium 4.5 mmol/L (3.5-5.5); Sodium 136 mmol/L (135-145); Total Bilirubin 0.3 mg/dL (0.3-1.2); Total Protein 5.1 d/dL (6.2-8.2)
--- NOTE | 2023-02-08 12:24 | P.NPCON ---
History of Present Illness - Reason for Consult acute renal failure, chronic renal failure - History of Present Illness Reason for consultation: Acute kidney injury on chronic kidney disease History of present illness: Patient is a 77-year-old female seen in consultation for acute kidney injury on chronic kidney disease. Patient has chronic kidney disease stage V with baseline creatinine near 3. Creatinine was 3.16 on admission and is 3.9 today. Patient came to the hospital due to generalized weakness. Patient states she felt extremely weak and couldn't even sit up. She denies syncopal episodes. She did have diarrhea for about one day but okay now. She denies use of nonsteroidals. Denies family history of renal disease. Denies history of diabetes. Patient does admit to persistent cough going on for about 3 months now. She denies any productive phlegm. Patient states she was seen by pulmonology for this. Patient has chronic lymphedema. She has been voiding. Denies gross hematuria or dysuria. She does take Bumex at home which is now held. No chest pain or shortness of breath. No fever or chills. Hemodynamically stable. Vital signs are stable. General: No acute distress. HEENT: Head exam is unremarkable. LUNGS: No audible rhonchi or wheezes. HEART: Rate and Rhythm are regular. ABDOMEN: Nontender. EXTREMITITES: No pitting edema. Past Medical History Past Medical History: Asthma, Cancer, COPD, Osteoarthritis (OA), Renal Disease, Thyroid Disorder Additional Past Medical History / Comment(s): kidney stones and UTI,steroid injection October 2018 hx lymphedema, hx pulmonary fibrosis, hx graves,hx rt foot to rn ligaments,hx kidney stones, hx osteoporosis,hypotension, chronic respiratory failure on 2 L nasal cannula at night & prn, vitamin D deficiency, hypocalcemia. SKIN CANCER REMOVED FROM BRIDGE OF NOSE., PMR History of Any Multi-Drug Resistant Organisms: CRE Date of last positivie culture/infection: 10/16/18 MDRO-CRE PER [facility] NOT [facility] MDRO Source:: Urine Past Surgical History: Bariatric Surgery Additional Past Surgical History / Comment(s): hx bariatric surgery-Kye En Y ,lung biopsy,radioactive iodine-tx thyroid,rectal and bladder suspensions,vaginal surgery as a child,partha carpel tunnel,rt knee meniscus repair,D&C x3, left arm fistula 02/08/19 (not working) Past Anesthesia/Blood Transfusion Reactions: Previous Problems w/ Anesthesia, Postoperative Nausea & Vomiting (PONV) Additional Past Anesthesia/Blood Transfusion Reaction / Comment(s): decrease bp with anesthesia,no problems with prior blood transfusion Past Psychological History: No Psychological Hx Reported Smoking Status: Never smoker Past Alcohol Use History: None Reported Past Drug Use History: None Reported - Past Family History Father Family Medical History: Pulmonary Embolus Additional Family Medical History / Comment(s): . Mother Family Medical History: Cancer Additional Family Medical History / Comment(s): . Sister(s) Family Medical History: Cancer Additional Family Medical History / Comment(s): . Daughter(s) Additional Family Medical History / Comment(s): lymphedema in legs Brother(s) Family Medical History: Cancer Additional Family Medical History / Comment(s): skin cancer Medications and Allergies Home Medications Medication Instructions Recorded Confirmed Type FLUoxetine HCL [PROzac] 20 mg PO DAILY 08/23/18 02/07/23 History Montelukast [Singulair] 10 mg PO HS 08/23/18 02/07/23 History Omeprazole 40 mg PO AC-BID 11/19/18 02/07/23 History Ergocalciferol (Vitamin D2) 50,000 unit PO MOWEFR 01/31/19 02/07/23 History [Vitamin D2] Sodium Bicarbonate Tab 1,950 mg PO TID 07/22/19 02/07/23 History traMADol HCL [Ultram] 50 mg PO Q6H PRN 07/22/19 02/07/23 History Loratadine 10 mg PO DAILY 12/06/19 02/07/23 History Magnesium Chloride [Mag64] 64 mg PO DAILY 12/06/19 02/07/23 History Bumetanide [Bumex] 1 mg PO DAILY 01/25/21 02/07/23 History Calcium Acetate [Phoslo] 1,334 mg PO TID-W/MEALS 01/25/21 02/07/23 History Methenamine Hippurate 1 gm PO BID 01/25/21 02/07/23 History Mirabegron [Myrbetriq] 25 mg PO DAILY 01/25/21 02/07/23 History metroNIDAZOLE 250 mg PO DAILY 01/25/21 02/07/23 History Albuterol Inhaler [Ventolin Hfa 2 puff INHALATION RT-Q6H PRN 02/07/23 02/07/23 History Inhaler] Benzonatate [Tessalon Perle] 200 mg PO TID PRN 02/07/23 02/07/23 History Calcium Acetate [Phoslo] 667 mg PO TID PRN 02/07/23 02/07/23 History Docusate [Colace] 200 mg PO BID 02/07/23 02/07/23 History Fluticasone Propion/Salmeterol 1 puff INHALATION RT-BID 02/07/23 02/07/23 History [Wixela 250-50 Inhub] Levothyroxine Sodium [Synthroid] 150 mcg PO DAILY 02/07/23 02/07/23 History Midodrine HCl [ProAmantine] 2.5 mg PO BID PRN 02/07/23 02/07/23 History Potassium Chloride [Klor-Con 8] 8 meq PO DAILY 02/07/23 02/07/23 History calcitrioL [Calcitriol] 1 mcg PO BID 02/07/23 02/07/23 History Allergies Allergy/AdvReac Type Severity Reaction Status Date / Time adhesive tape Allergy Rash/Hives Verified 02/07/23 13:31 Sulfa (Sulfonamide Allergy Itching Verified 02/07/23 13:31 Antibiotics) tetracycline Allergy Nausea & Verified 02/07/23 13:31 Vomiting codeine AdvReac Nausea Verified 02/07/23 13:31 epoetin beta [From Mircera] AdvReac Unknown Verified 02/07/23 13:31 Physical Exam Vitals: Vital Signs Temp Pulse Pulse Resp BP BP Pulse Ox 02/08/23 11:45 16 02/08/23 08:11 98.4 F 81 16 102/65 99 02/08/23 01:49 98 F 74 16 113/66 99 02/07/23 20:00 81 18 02/07/23 19:35 98.2 F 81 18 107/68 96 02/07/23 15:47 74 18 119/72 99 Intake and Output 02/07/23 02/08/23 02/08/23 22:59 06:59 14:59 Intake Total 600 Balance 600 Intake: Oral 600 Other: Voiding Method Toilet Toilet # Voids 2 Weight 48.534 kg Results - Lab Results Most recent lab results Calcium 9.8 mg/dL (8.7-10.3) 02/08/23 06:22 Magnesium 2.3 mg/dL (1.5-2.4) 02/08/23 06:22 02/08/23 06:22 02/08/23 06:22 Assessment and Plan Plan: Assessment: 1. Acute kidney injury secondary to ATN secondary to hypovolemia worsened with diuretic use. Creatinine up to 3.9 today. 2. 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 UA benign. 3. Metabolic acidosis secondary to chronic kidney disease maintained on oral bicarb. 4. Anemia of chronic kidney disease. Rule out iron deficiency. 5. Generalized ability. 6. 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 7. Chronic lymphedema. Plan: Start normal saline at 50 mL an hour. Hold diuretics. Check bladder scan to rule out retention. Check renal ultrasound. Encourage oral intake. Check iron studies. Repeat labs in the morning. Maintain midodrine as needed for systolic blood pressure less than 100. Hold calcitriol for now as calcium on the higher side. Thank you for the consultation. I will continue to follow the patient with you during her hospital stay.
[2023-02-08 12:38] LABS: Acanthocytes 2+; Basophils # (A) 0.08 X 10*3/uL (0.00-0.10); Eosinophils # (A) 0.19 X 10*3/uL (0.04-0.35); Eosinophils % (A) 2.3 %; Lymphocytes # (A) 2.41 X 10*3/uL (0.90-5.00); Lymphocytes % (A) 28.7 %; Macrocytosis (M) 2+; Monocytes # (A) 0.89 X 10*3/uL (0.20-1.00); Monocytes % (A) 10.6 %; Neutrophils # (A) 4.73 X 10*3/uL (1.80-7.70); Neutrophils % (A) 56.1 %
[2023-02-08] MEDS ORDERED: IPRATROPIUM-ALBUTEROL 3 ML NEB INHALATION PRN (12:39)
[2023-02-08] MEDS: PANTOPRAZOLE 40 MG/10 ML VIAL IVP SCH ×2 (12:51→20:05)
[2023-02-08] MEDS: SODIUM CHLORIDE 0.9% 1,000 ML IV SCH (12:51)
[2023-02-08] MEDS: BENZONATATE 100 MG CAP PO PRN ×2 (12:52→21:29)
--- NOTE | 2023-02-08 13:28 | PN ---
PROGRESS NOTE DATE OF SERVICE: 02/08/2023 SUBJECTIVE: This is a 77-year-old woman, who was admitted with acute on chronic renal failure, is being closely monitored. The patient has some nausea. The patient also is complaining of some chest congestion also. The chest x-ray does not show much of an abnormality. Nephrology is also following the patient closely. Diuretics have been held at this time. Gentle hydration is being recommended. PAST MEDICAL HISTORY: Reviewed. REVIEW OF SYSTEMS: 14-point review of systems is negative except as mentioned earlier. CURRENT MEDICATIONS: Reviewed. PHYSICAL EXAMINATION: VITAL SIGNS: Pulse is 76, blood pressure 113/60, respirations 16. CHEST: A few scattered rhonchi. CARDIOVASCULAR: S1, S2. ABDOMEN: Soft. NERVOUS SYSTEM: Nonfocal. LABORATORY DATA: Hemoglobin 8.6. Rest of the labs are noted. ASSESSMENT: 1. Acute on chronic renal failure. 2. History of chronic kidney disease, on hemodialysis previously. 3. History of asthma and chronic obstructive pulmonary disease. 4. History of degenerative joint disease. 5. Multiple complex medical issues. 6. History of bariatric surgery. RECOMMENDATIONS AND DISCUSSION: This is a 77-year-old woman, who presented with multiple complex medical issues. We will monitor the patient closely. I would recommend intensive bronchodilators. Otherwise, continue with IV fluids. Monitor creatinine closely. Closely follow. Avoid nephrotoxic medications. Prognosis guarded. Symptomatic treatment for nausea. Protonix. Further recommendations to follow. MMBRISSAL / MARINO: [id number] /
[2023-02-08 14:02] VITALS: BMI 18.9
[2023-02-08 15:31] LABS: % Iron Saturation 32.71 (12.00-45.00)
[2023-02-08] MEDS: IPRATROPIUM-ALBUTEROL 3 ML NEB INHALATION SCH ×2 (15:53→20:43)
--- NOTE | 2023-02-08 16:01 | US ---
EXAMINATION TYPE: US renals and bladder DATE OF EXAM: 02/08/2023 COMPARISON: CT 12/10/2021 CLINICAL INDICATION: Female, 77 years old with history of priyanka; PRIYANKA, hx kidney stones removed, bladder suspension. EXAM MEASUREMENTS: Right Kidney: 9.7 x 4.0 x 4.2 cm Left Kidney: 8.1 x 3.9 x 4.0 cm Right Kidney: Right hydronephrosis seen. *Anechoic area seen lower pole: 1.3 x 1.0 x 1.3 cm. Left Kidney: Small in size. Complex lesion seen laterally: 1.1 x 1.1 x 1.1 cm. Hyperechoic focus seen lower pole: 0.4 x 0.5 x 0.5 cm. Hyperechoic focus seen upper pole: 0.6 x 0.5 x 0.5 cm. Bladder: Appears wnl Bilateral Jets seen: Yes Bladder is sonolucent. Posterior wall is normal. IMPRESSION: 1. Moderate right hydronephrosis. 2. Bilateral renal cysts. 3. Complex hypoechoic lesion lateral left kidney. 4. Echogenic foci with posterior shadowing left kidney compatible with nonobstructing renal stones.
[2023-02-08] MEDS: HEPARIN SODIUM,PORCINE 5,000 UNIT/ML 1 ML VIAL SQ SCH (19:59)
[2023-02-08] MEDS: MONTELUKAST 10 MG TAB PO SCH (20:04)
[2023-02-08] MEDS ORDERED: MORPHINE SULFATE 2 MG/ML SYRINGE IVP PRN (22:14)
[2023-02-08] MEDS: ONDANSETRON 4 MG/2 ML VIAL IVP PRN (22:16)
[2023-02-09] MEDS: LEVOTHYROXINE 75 MCG TAB PO SCH (06:56)
[2023-02-09] MEDS: SODIUM CHLORIDE 0.9% 1,000 ML IV SCH (06:58)
[2023-02-09 08:29] LABS: Basophils % (A) 0 %; Eosinophils # (A) 0.1 k/uL (0-0.7); Eosinophils % (A) 2 %; HGB 8.7 gm/dL (11.4-16.0); Lymphocytes % (A) 22 %; MCV 103.1 fL (80.0-100.0); Macrocytosis Slight; Mean Platelet Volume 8.1; Monocytes # (A) 0.7 k/uL (0-1.0); Monocytes % (A) 8 %; Neutrophils # (A) 6.1 k/uL (1.3-7.7); Neutrophils % (A) 67 %; Platelet Count 194 k/uL (150-450); RBC 2.62 m/uL (3.80-5.40); RDW 12.5 % (11.5-15.5)
[2023-02-09] MEDS: DOCUSATE 100 MG CAP PO SCH ×2 (08:31→20:09)
[2023-02-09] MEDS: FLUoxetine HCL 20 MG CAP PO SCH (08:33)
[2023-02-09] MEDS: ONDANSETRON 4 MG/2 ML VIAL IVP PRN ×2 (08:33→15:56)
[2023-02-09] MEDS: SODIUM BICARBONATE TAB 650 MG TAB PO SCH ×3 (08:34→20:10)
[2023-02-09] MEDS: LORATADINE 10 MG TAB PO SCH (08:34)
[2023-02-09] MEDS: Mirabegron [Myrbetriq] 25 MG Tab.Er.24h PO SCH (08:34)
[2023-02-09] MEDS: CALCIUM ACETATE 667 MG TAB PO PRN (08:34)
[2023-02-09] MEDS: METHENAMINE HIPPURATE 1 GM PO SCH ×2 (08:34→20:10)
[2023-02-09] MEDS: BENZONATATE 100 MG CAP PO PRN ×2 (08:34→20:08)
[2023-02-09] MEDS: MAGNESIUM OXIDE 400 MG TAB PO SCH (08:34)
[2023-02-09] MEDS: HEPARIN SODIUM,PORCINE 5,000 UNIT/ML 1 ML VIAL SQ SCH ×2 (08:34→20:10)
[2023-02-09] MEDS: IPRATROPIUM-ALBUTEROL 3 ML NEB INHALATION SCH ×3 (08:46→21:11)
[2023-02-09] MEDS: SYMBICORT 80-4.5 MCG INHALER INHALATION SCH ×2 (08:46→21:11)
[2023-02-09 09:14] LABS: African American GFR (CKD) 15 (>60 ml/min/1.73 sqM); Anion Gap 8 mmol/L; Blood Urea Nitrogen 71 mg/dL (7-17); Calcium 9.5 mg/dL (8.4-10.2); Carbon Dioxide 23 mmol/L (22-30); Chloride 104 mmol/L (98-107); Glucose 103 mg/dL (74-99); Magnesium 2.2 mg/dL (1.6-2.3); Non-African American GFR(CKD) 13 (>60 ml/min/1.73 sqM); Potassium 4.5 mmol/L (3.5-5.1); Sodium 135 mmol/L (137-145)
[2023-02-09] MEDS: PANTOPRAZOLE 40 MG/10 ML VIAL IVP SCH ×2 (11:15→20:09)
--- NOTE | 2023-02-09 11:34 | P.PN ---
Subjective Patient is seen in follow-up for acute kidney injury and chronic disease. Renal function better. Has been voiding. Did vomit about twice yesterday but not today so far. Oral intake fair. Blood pressure stable but on the lower side. Vital signs are stable. General: No acute distress. HEENT: Head exam is unremarkable. LUNGS: No audible rhonchi or wheezes. HEART: Rate and Rhythm are regular. ABDOMEN: Nontender. EXTREMITITES: No pitting edema. Objective - Vital Signs Vital signs: Vital Signs Temp 97.8 F 02/09/23 07:40 Pulse 88 02/09/23 09:00 Resp 15 02/09/23 07:40 BP 100/64 02/09/23 09:09 Pulse Ox 96 02/09/23 07:40 FiO2 Intake & Output 02/08/23 02/09/23 02/09/23 18:59 06:59 18:59 Weight 48.534 kg Other: Voiding Method Toilet Toilet Toilet # Voids 1 - Labs CBC & Chem 7: 02/09/23 07:07 02/09/23 07:07 Labs: Abnormal Lab Results - Last 24 Hours (Table) 02/08/23 02/08/23 02/08/23 Range/Units 06:22 06:22 06:22 RBC (3.80-5.40) m/uL Hgb (11.4-16.0) gm/dL Hct (34.0-46.0) % MCV (80.0-100.0) fL Macrocytosis (manual) 2+ A Acanthocytes (Spur) 2+ A Sodium (137-145) mmol/L Carbon Dioxide 20.7 L (21.6-31.8) mmol/L BUN 63.9 H (9.0-27.0) mg/dL Creatinine 3.9 H (0.6-1.5) mg/dL Est GFR (CKD-EPI) 11 L (>=60) Glucose (74-99) mg/dL Transferrin 192.0 L (204.0-354.0) mg/dL Ferritin 378.0 H (10.0-291.0) ng/mL Total Protein 5.1 L (6.2-8.2) d/dL Albumin 3.5 L (3.8-4.9) d/dL 02/09/23 02/09/23 Range/Units 07:07 07:07 RBC 2.62 L (3.80-5.40) m/uL Hgb 8.7 L (11.4-16.0) gm/dL Hct 27.0 L (34.0-46.0) % MCV 103.1 H (80.0-100.0) fL Macrocytosis (manual) Acanthocytes (Spur) Sodium 135 L (137-145) mmol/L Carbon Dioxide (21.6-31.8) mmol/L BUN 71 H (9.0-27.0) mg/dL Creatinine 3.24 H (0.6-1.5) mg/dL Est GFR (CKD-EPI) (>=60) Glucose 103 H (74-99) mg/dL Transferrin (204.0-354.0) mg/dL Ferritin (10.0-291.0) ng/mL Total Protein (6.2-8.2) d/dL Albumin (3.8-4.9) d/dL Assessment and Plan Plan: Assessment: 1. Acute kidney injury secondary to ATN secondary to hypovolemia worsened with diuretic use. Creatinine up to 3.9 today - 3.24 today. Ultrasound shows right- sided hydronephrosis with atrophic left kidney. 2. 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 UA benign. 3. Metabolic acidosis secondary to chronic kidney disease maintained on oral bicarb. 4. Anemia of chronic kidney disease. Iron replete. 5. Generalized ability. 6. 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 7. Chronic lymphedema. 8. Right hydronephrosis. Urology consulted. Plan: Maintain IV fluids. Hold diuretics. Encourage oral intake. Hold off on ADRIANNE as it's listed in patient's ALLERGIES. Repeat labs in the morning. Maintain midodrine as needed for systolic blood pressure less than 100. Continue to hold calcitriol.
--- NOTE | 2023-02-09 12:19 | PN ---
PROGRESS NOTE DATE OF SERVICE: 02/09/2023 SUBJECTIVE: This 77-year-old woman was admitted with multiple medical problems including acute on chronic renal failure, was not feeling well for the past 3 months. The patient had shortness of breath, weakness, and some cough also. The patient just started on bronchodilators. Multiple consultants following the patient closely. Renal ultrasound is reviewed personally by me showed moderate right hydronephrosis, complex hyperechoic lesions on the left lateral kidney and echogenic shadowing. PAST MEDICAL HISTORY: Reviewed. REVIEW OF SYSTEMS: A 14-point review is negative except as mentioned earlier. CURRENT MEDICATIONS: Reviewed. PHYSICAL EXAMINATION: VITAL SIGNS: Pulse is 88, blood pressure 96/64, and respirations 15. CHEST: Few scattered rhonchi. CARDIOVASCULAR: S1, S2. ABDOMEN: Soft, nontender. LABORATORY DATA: Hemoglobin 8.7, rest of the labs are noted. ASSESSMENT: 1. Acute on chronic kidney disease and renal failure. 2. History of chronic kidney disease, on hemodialysis previously. 3. History of asthma, COPD. 4. Hydronephrosis. 5. History of DJD. 6. Multiple complex medical issues. 7. History of bariatric surgery. RECOMMENDATIONS: Recommended to continue current medications, continue to monitor, symptomatic treatment. Otherwise at this time, I would also recommend urology evaluation for hydronephrosis. The renal functions are borderline. Nephrology is apparently holding off the possibility of dialysis at this time, guarded prognosis. Further recommendations to follow. MMODL / IJN: [id number] /
--- NOTE | 2023-02-09 14:16 | CDI ---
Documentation Clarification Form Date: 02/09/2023 02:00:05 PM From: Yadira Duncan RN CCDS Phone: [phone] Admit Date: 02/07/2023 01:43:00 PM Patient Name: Margie Dallas Visit Number: [id number] Discharge Date: ATTENTION: The Clinical Documentation Specialists (CDI) and [facility] Coding Staff appreciate your assistance in clarifying documentation. Please respond to the clarification below the line at the bottom and electronically sign. The CDI & [facility] Coding staff will review the response and follow-up if needed. Please note: Queries are made part of the Legal Health Record. If you have any questions, please contact the author of this message via ITS. Dr. Henna Lopez The Registered Dietitian assessment on 02/08 indicates this patient meets criteria for Severe malnutrition in the context of chronic illness. Based on this information and the findings below, is there an additional diagnosis that is clinically appropriate for this patient? History/Risk Factors: 77-year old female presents to the ED with elevated renal values. Medical history CKD V, COPD, Asthma and cancer. 02/08, Nutritional assessment Clinical Indicators: RD Consult Assessment: Current BMI:19.0kg Hgt 5ft 3in Wgt 48.534kg Severe Malnutrition in the context of chronic illness. Related to: Shortness of breath interfering with PO intake As evidenced by: <50% of estimated calorie needs consumed w/ 5.9kg (10.8%) severe weight loss x 5 months. Treatment: Monitor adequate po intake; High kcal/protein foods Supplements: Ensure enlive TID Is there an additional diagnosis that is clinically appropriate for this patient? [ ] Severe Protein-Calorie Malnutrition [ ] Other condition, please specify [ ] Unable to Determine Reference: Using the ASPEN Guidelines, Undernutrition (Malnutrition) is characterized by at least two of the following six findings. The severity can be determined based on the criteria listed below. Malnutrition Characteristics for Moderate and Severe Malnutrition Type of Malnutrition Acute Illness or Injury Chronic Illness Degree of Malnutrition Non-severe (moderate) Malnutrition Severe Malnutrition Non-severe (moderate) Malnutrition Severe Malnutrition Energy Intake <75% for >7 days = 50% for = 5 days <75% for = 1 month =75% for = 1 month Weight Loss 1-2% in one week, 5% in 1 month, 7.5% in 3 months 2% in one week, >5% in 1 month, >7.5% in 3 months 5% in one month, 7.5% in 3 months, 10% in 6 months, 20% in 1 year >5% in one month, >7.5% in 3 months, >10% in 6 months, >20% in 1 year Body Fat Wasting Mild Moderate Mild Severe Muscle Wasting Mild Moderate Mild Severe Presence of Edema Mild Moderate to Severe Mild Severe Dough Maker Strength Not applicable Measurably Reduced Not applicable Measurably Reduced Source: Alvino GivensV, Enoc P, Bin G, et al. Consensus statement: Academy of Nutrition and Dietetics and [place] Society for Parenteral and Enteral Nutrition: characteristics recommended for the identification and documentation of adult malnutrition (undernutrition).SCOT Givens Parenter Enteral Nutr. 2012;36(3):275-283. (Template Last Revised: December 2022) Severe Protein-Calorie Malnutrition MTDD
[2023-02-09] MEDS: MIDODRINE 5 MG TAB PO PRN (15:59)
[2023-02-09] MEDS: traMADol 50 MG TAB PO PRN (20:09)
[2023-02-09] MEDS: MONTELUKAST 10 MG TAB PO SCH (20:09)
[2023-02-10] MEDS: SODIUM CHLORIDE 0.9% 1,000 ML IV SCH ×2 (02:10→23:31)
[2023-02-10] MEDS: LEVOTHYROXINE 75 MCG TAB PO SCH (06:30)
[2023-02-10] MEDS: IPRATROPIUM-ALBUTEROL 3 ML NEB INHALATION SCH ×3 (07:46→18:13)
[2023-02-10] MEDS: SYMBICORT 80-4.5 MCG INHALER INHALATION SCH ×2 (07:46→18:13)
[2023-02-10] MEDS: BENZONATATE 100 MG CAP PO PRN (08:28)
[2023-02-10] MEDS: traMADol 50 MG TAB PO PRN ×2 (08:28→21:19)
[2023-02-10] MEDS: Mirabegron [Myrbetriq] 25 MG Tab.Er.24h PO SCH (08:30)
[2023-02-10] MEDS: METHENAMINE HIPPURATE 1 GM PO SCH ×2 (08:30→21:09)
[2023-02-10] MEDS: DOCUSATE 100 MG CAP PO SCH ×2 (08:31→21:09)
[2023-02-10 10:59] LABS: Basophils # (A) 0.08 X 10*3/uL (0.00-0.10); Eosinophils # (A) 0.17 X 10*3/uL (0.04-0.35); Eosinophils % (A) 2.1 %; HCT 27.5 % (37.2-46.3); HGB 8.4 d/dL (12.0-15.0); Lymphocytes # (A) 2.36 X 10*3/uL (0.90-5.00); Lymphocytes % (A) 29.1 %; MCH 32.6 pg (27.0-32.0); MCHC 30.5 d/dL (32.0-37.0); MCV 106.6 FL (80.0-97.0); Mean Platelet Volume 10.1 FL (9.5-12.2); Monocytes # (A) 0.69 X 10*3/uL (0.20-1.00); Monocytes % (A) 8.5 %; NRBC Per 100 WBC 0 X 10*3/uL (0.00-0.01); Neutrophils # (A) 4.74 X 10*3/uL (1.80-7.70); Neutrophils % (A) 58.3 %; Platelet Count 198 X 10*3/uL (140-440); RBC 2.58 X 10*6/uL (4.10-5.20); RDW 12.5 % (11.5-14.5); WBC 8.12 X 10*3/uL (4.50-10.00)
[2023-02-10 11:00] LABS: Magnesium 2.4 mg/dL (1.5-2.4)
[2023-02-10 11:01] LABS: Blood Urea Nitrogen 59.5 mg/dL (9.0-27.0); Calcium 9.7 mg/dL (8.7-10.3); Carbon Dioxide 22.6 mmol/L (21.6-31.8); Chloride 105 mmol/L (96-109); Glucose 93 mg/dL (70-110); Potassium 5.7 mmol/L (3.5-5.5); Sodium 137 mmol/L (135-145)
[2023-02-10] MEDS ORDERED: SODIUM ZIRCONIUM CYCLOSILICATE 10 GM PACKET PO ONE (11:19)
--- NOTE | 2023-02-10 11:22 | P.PN ---
Subjective Patient is seen in follow-up for acute kidney injury and chronic disease. Renal function stable. Admits to good urine output. Has been voiding. No vomiting or diarrhea today. Potassium 5.7. Vital signs are stable. General: No acute distress. HEENT: Head exam is unremarkable. LUNGS: No audible rhonchi or wheezes. HEART: Rate and Rhythm are regular. ABDOMEN: Nontender. EXTREMITITES: No pitting edema. Objective - Vital Signs Vital signs: Vital Signs Temp 97.6 F 02/10/23 09:27 Pulse 66 02/10/23 09:27 Resp 16 02/10/23 09:27 BP 98/68 02/10/23 09:27 Pulse Ox 95 02/10/23 09:27 FiO2 Intake & Output 02/09/23 02/10/23 02/10/23 18:59 06:59 18:59 Other: Voiding Method Toilet Toilet # Voids 1 1 - Labs CBC & Chem 7: 02/10/23 06:43 02/10/23 06:43 Labs: Abnormal Lab Results - Last 24 Hours (Table) 02/09/23 02/09/23 02/10/23 Range/Units 13:09 13:09 06:43 RBC 2.58 L (4.10-5.20) X 10*6/uL Hgb 8.4 L (12.0-15.0) d/dL Hct 27.5 L (37.2-46.3) % MCV 106.6 H (80.0-97.0) FL MCH 32.6 H (27.0-32.0) pg MCHC 30.5 L (32.0-37.0) d/dL ESR 21 H (0-20) mm/hr D-Dimer 0.68 H (<0.60) mg/L FEU Potassium (3.5-5.5) mmol/L BUN (9.0-27.0) mg/dL Creatinine (0.6-1.5) mg/dL Est GFR (CKD-EPI) (>=60) Phosphorus (2.4-5.1) mg/dL 02/10/23 Range/Units 06:43 RBC (4.10-5.20) X 10*6/uL Hgb (12.0-15.0) d/dL Hct (37.2-46.3) % MCV (80.0-97.0) FL MCH (27.0-32.0) pg MCHC (32.0-37.0) d/dL ESR (0-20) mm/hr D-Dimer (<0.60) mg/L FEU Potassium 5.7 H (3.5-5.5) mmol/L BUN 59.5 H (9.0-27.0) mg/dL Creatinine 3.5 H (0.6-1.5) mg/dL Est GFR (CKD-EPI) 13 L (>=60) Phosphorus 6.0 H (2.4-5.1) mg/dL Assessment and Plan Plan: Assessment: 1. Acute kidney injury secondary to ATN secondary to hypovolemia worsened with diuretic use. Creatinine up to 3.9 this admission - 3.5 today. Questionable obstructive uropathy. Ultrasound shows right-sided hydronephrosis with atrophic left kidney. 2. 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 UA benign. 3. Metabolic acidosis secondary to chronic kidney disease maintained on oral bicarb. 4. Anemia of chronic kidney disease. Iron replete. 5. Generalized ability. 6. Chronic kidney disease mineral bone disease. Calcitriol held as calcium on the higher side. Phosphorus 6.0 today. 7. Chronic lymphedema. 8. Right hydronephrosis. Urology consulted. Plan: Maintain IV fluids. Hold diuretics. Encourage oral intake. Hold off on ADRIANNE as it's listed in patient's ALLERGIES. Repeat labs in the morning. Maintain midodrine as needed for systolic blood pressure less than 100. Continue to hold calcitriol. Renal diet. Lokelma 10 g once today. Add Renvela with meals Stop magox.
[2023-02-10] MEDS: LORATADINE 10 MG TAB PO SCH (12:15)
[2023-02-10] MEDS: PANTOPRAZOLE 40 MG/10 ML VIAL IVP SCH ×2 (12:15→21:08)
[2023-02-10] MEDS: FLUoxetine HCL 20 MG CAP PO SCH (12:15)
[2023-02-10] MEDS: SODIUM BICARBONATE TAB 650 MG TAB PO SCH ×3 (12:15→21:00)
[2023-02-10] MEDS: HEPARIN SODIUM,PORCINE 5,000 UNIT/ML 1 ML VIAL SQ SCH ×2 (12:16→21:13)
[2023-02-10] MEDS: MAGNESIUM OXIDE 400 MG TAB PO SCH (12:37)
[2023-02-10] MEDS: SEVELAMER 800 MG TAB PO SCH ×2 (12:39→17:56)
--- NOTE | 2023-02-10 13:21 | PN ---
PROGRESS NOTE DATE OF SERVICE: 02/10/2023 SUBJECTIVE: This is a 77-year-old woman who was admitted with acute on chronic renal failure, worsening uremia, is being closely monitored. No chest pain, no palpitations, no fever. OBJECTIVE: VITAL SIGNS: Pulse is 66, blood pressure 98/60, respirations 16. CHEST: Clear to auscultation. Few scattered rhonchi. ABDOMEN: Soft. NERVOUS SYSTEM: No focal deficits. LABS: Creatinine is 3.5. ASSESSMENT: 1. Acute on chronic kidney disease and renal failure. 2. History of chronic kidney disease, on hemodialysis previously. 3. History of asthma, COPD. 4. Hydronephrosis. 5. History of DJD. 6. Multiple complex medical issues. 7. History of bariatric surgery. RECOMMENDATIONS: Recommended to continue current management and treatment otherwise at this time. I would monitor the patient closely, fluid electrolyte balance Further recommendations to follow. MMODL / IJN: [id number] / MARCELO
--- NOTE | 2023-02-10 15:40 | P.GSCN ---
History of Present Illness Consult date: 02/09/23 Reason for Consult: Hydronephrosis Requesting physician: Henna Lopez History of present illness: The patient is a 77-year-old white female with a history of urolithiasis. She is well known to Dr. Hennessy, who performed a left percutaneous nephrolithotomy on her in 2018. CT scan at that time showed evidence of right hydronephrosis, which was described as being severe in 2019 and 2021. She is now admitted with a prolonged cough. Ultrasound shows moderate right hydronephrosis. She reports occasional right lower back pain, which increases with movement. She last saw Dr. Hennessy 1 month ago. He has prescribed Myrbetriq and Hiprex, for treatment of overactive bladder and recurrent UTIs, respectively. Review of Systems - Respiratory Reports cough - Genitourinary Genitourinary: Reports flank pain, Reports urinary frequency, Denies dysuria, Denies hematuria Past Medical History Past Medical History: Asthma, Cancer, COPD, Osteoarthritis (OA), Renal Disease, Thyroid Disorder Additional Past Medical History / Comment(s): kidney stones and UTI,steroid in jection October 2018 hx lymphedema, hx pulmonary fibrosis, hx graves,hx rt foot torn ligaments,hx kidney stones, hx osteoporosis,hypotension, chronic respiratory failure on 2 L nasal cannula at night & prn, vitamin D deficiency, hypocalcemia. 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 PER [facility] NOT [facility] MDRO Source:: Urine Past Surgical History: Bariatric Surgery Additional Past Surgical History / Comment(s): hx bariatric surgery-Kye En Y,lung biopsy,radioactive iodine-tx thyroid,rectal and bladder suspensions,vaginal surgery as a child,partha carpel tunnel,rt knee meniscus repair,D&C x3, left arm fistula 02/08/19 (not working) Past Anesthesia/Blood Transfusion Reactions: Previous Problems w/ Anesthesia, Postoperative Nausea & Vomiting (PONV) Additional Past Anesthesia/Blood Transfusion Reaction / Comm: decrease bp with anesthesia,no problems with prior blood transfusion Past Psychological History: No Psychological Hx Reported Smoking Status: Never smoker Past Alcohol Use History: None Reported Past Drug Use History: None Reported - Past Family History Father Family Medical History: Pulmonary Embolus Additional Family Medical History / Comment(s): . Mother Family Medical History: Cancer Additional Family Medical History / Comment(s): . Sister(s) Family Medical History: Cancer Additional Family Medical History / Comment(s): . Daughter(s) Additional Family Medical History / Comment(s): lymphedema in legs Brother(s) Family Medical History: Cancer Additional Family Medical History / Comment(s): skin cancer Medications and Allergies Home Medications Medication Instructions Recorded Confirmed Type FLUoxetine HCL [PROzac] 20 mg PO DAILY 08/23/18 02/07/23 History Montelukast [Singulair] 10 mg PO HS 08/23/18 02/07/23 History Omeprazole 40 mg PO AC-BID 11/19/18 02/07/23 History Ergocalciferol (Vitamin D2) 50,000 unit PO MOWEFR 01/31/19 02/07/23 History [Vitamin D2] Sodium Bicarbonate Tab 1,950 mg PO TID 07/22/19 02/07/23 History traMADol HCL [Ultram] 50 mg PO Q6H PRN 07/22/19 02/07/23 History Loratadine 10 mg PO DAILY 12/06/19 02/07/23 History Magnesium Chloride [Mag64] 64 mg PO DAILY 12/06/19 02/07/23 History Bumetanide [Bumex] 1 mg PO DAILY 01/25/21 02/07/23 History Calcium Acetate [Phoslo] 1,334 mg PO TID-W/MEALS 01/25/21 02/07/23 History Methenamine Hippurate 1 gm PO BID 01/25/21 02/07/23 History Mirabegron [Myrbetriq] 25 mg PO DAILY 01/25/21 02/07/23 History metroNIDAZOLE 250 mg PO DAILY 01/25/21 02/07/23 History Albuterol Inhaler [Ventolin Hfa 2 puff INHALATION RT-Q6H PRN 02/07/23 02/07/23 History Inhaler] Benzonatate [Tessalon Perle] 200 mg PO TID PRN 02/07/23 02/07/23 History Calcium Acetate [Phoslo] 667 mg PO TID PRN 02/07/23 02/07/23 History Docusate [Colace] 200 mg PO BID 02/07/23 02/07/23 History Fluticasone Propion/Salmeterol 1 puff INHALATION RT-BID 02/07/23 02/07/23 History [Wixela 250-50 Inhub] Levothyroxine Sodium [Synthroid] 150 mcg PO DAILY 02/07/23 02/07/23 History Midodrine HCl [ProAmantine] 2.5 mg PO BID PRN 02/07/23 02/07/23 History Potassium Chloride [Klor-Con 8] 8 meq PO DAILY 02/07/23 02/07/23 History calcitrioL [Calcitriol] 1 mcg PO BID 02/07/23 02/07/23 History Allergies Allergy/AdvReac Type Severity Reaction Status Date / Time adhesive tape Allergy Rash/Hives Verified 02/07/23 13:31 Sulfa (Sulfonamide Allergy Itching Verified 02/07/23 13:31 Antibiotics) tetracycline Allergy Nausea & Verified 02/07/23 13:31 Vomiting codeine AdvReac Nausea Verified 02/07/23 13:31 epoetin beta [From Mircera] AdvReac Unknown Verified 02/07/23 13:31 Surgical - Exam Vital Signs Temp Pulse Resp BP Pulse Ox 98.5 F 82 20 107/73 99 02/07/23 11:39 02/07/23 11:39 02/07/23 11:39 02/07/23 11:39 02/07/23 11:39 - General well developed, well nourished, no distress - Respiratory normal respiratory effort - Psychiatric oriented to time, oriented to person, oriented to place, speech is normal, me meghan intact Results - Labs 02/10/23 06:43 02/10/23 06:43 Abnormal Lab Results - Last 24 Hours (Table) 02/09/23 02/09/23 02/09/23 Range/Units 07:07 07:07 13:09 RBC 2.62 L (3.80-5.40) m/uL Hgb 8.7 L (11.4-16.0) gm/dL Hct 27.0 L (34.0-46.0) % MCV 103.1 H (80.0-100.0) fL ESR 21 H (0-20) mm/hr D-Dimer (<0.60) mg/L FEU Sodium 135 L (137-145) mmol/L BUN 71 H (7-17) mg/dL Creatinine 3.24 H (0.52-1.04) mg/dL Glucose 103 H (74-99) mg/dL 02/09/23 Range/Units 13:09 RBC (3.80-5.40) m/uL Hgb (11.4-16.0) gm/dL Hct (34.0-46.0) % MCV (80.0-100.0) fL ESR (0-20) mm/hr D-Dimer 0.68 H (<0.60) mg/L FEU Sodium (137-145) mmol/L BUN (7-17) mg/dL Creatinine (0.52-1.04) mg/dL Glucose (74-99) mg/dL Diabetes panel 02/09/23 Range/Units 07:07 Sodium 135 L (137-145) mmol/L Potassium 4.5 (3.5-5.1) mmol/L Chloride 104 (98-107) mmol/L Carbon Dioxide 23 (22-30) mmol/L BUN 71 H (7-17) mg/dL Creatinine 3.24 H (0.52-1.04) mg/dL Glucose 103 H (74-99) mg/dL Calcium 9.5 (8.4-10.2) mg/dL Calcium panel 02/09/23 Range/Units 07:07 Calcium 9.5 (8.4-10.2) mg/dL Pituitary panel 02/09/23 Range/Units 07:07 Sodium 135 L (137-145) mmol/L Potassium 4.5 (3.5-5.1) mmol/L Chloride 104 (98-107) mmol/L Carbon Dioxide 23 (22-30) mmol/L BUN 71 H (7-17) mg/dL Creatinine 3.24 H (0.52-1.04) mg/dL Glucose 103 H (74-99) mg/dL Calcium 9.5 (8.4-10.2) mg/dL Adrenal panel 02/09/23 Range/Units 07:07 Sodium 135 L (137-145) mmol/L Potassium 4.5 (3.5-5.1) mmol/L Chloride 104 (98-107) mmol/L Carbon Dioxide 23 (22-30) mmol/L BUN 71 H (7-17) mg/dL Creatinine 3.24 H (0.52-1.04) mg/dL Glucose 103 H (74-99) mg/dL Calcium 9.5 (8.4-10.2) mg/dL - Imaging CT scan - abdomen: report reviewed, image reviewed US - kidney/bladder: report reviewed Assessment and Plan (1) Hydronephrosis Current Visit: No Status: Acute Code(s): N13.30 - UNSPECIFIED HYDRONEPHROSIS SNOMED Code(s): 46845194 Plan: The patient is well known to Dr. Hennessy. 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 She reports occasional right lower back pain, which increases with movement and is likely musculoskeletal in origin. Given that the hydronephrosis is chronic, I do not feel it is responsible for any recent changes in renal function. I have suggested to Mrs. Dallas that she can follow-up with Dr. Hennessy as an outpatient if she wishes to discuss management options of the UPJ obstruction. Time with Patient: Greater than 30
[2023-02-10] MEDS: MONTELUKAST 10 MG TAB PO SCH (21:09)
[2023-02-10] MEDS: MIDODRINE 5 MG TAB PO PRN (21:09)
[2023-02-11] MEDS: LEVOTHYROXINE 75 MCG TAB PO SCH (06:02)
[2023-02-11] MEDS: PANTOPRAZOLE 40 MG/10 ML VIAL IVP SCH ×2 (09:03→22:31)
[2023-02-11] MEDS: IPRATROPIUM-ALBUTEROL 3 ML NEB INHALATION SCH ×3 (09:06→20:22)
[2023-02-11] MEDS: SYMBICORT 80-4.5 MCG INHALER INHALATION SCH ×2 (09:06→20:23)
[2023-02-11 09:13] LABS: BUN/Creat Ratio 18.78 Ratio (12.00-20.00); Blood Urea Nitrogen 60.1 mg/dL (9.0-27.0); Calcium 8.6 mg/dL (8.7-10.3); Carbon Dioxide 21.6 mmol/L (21.6-31.8); Chloride 103 mmol/L (96-109); Glucose 91 mg/dL (70-110); Magnesium 2.1 mg/dL (1.5-2.4); Sodium 137 mmol/L (135-145)
[2023-02-11 09:56] LABS: Basophils # (A) 0.05 X 10*3/uL (0.00-0.10); Basophils % (A) 0.7 %; Eosinophils # (A) 0.26 X 10*3/uL (0.04-0.35); Eosinophils % (A) 3.9 %; HCT 24.6 % (37.2-46.3); HGB 7.6 d/dL (12.0-15.0); Lymphocytes # (A) 1.95 X 10*3/uL (0.90-5.00); MCH 32.5 pg (27.0-32.0); MCHC 30.9 d/dL (32.0-37.0); MCV 105.1 FL (80.0-97.0); Mean Platelet Volume 10.2 FL (9.5-12.2); Monocytes % (A) 10.4 %; NRBC Per 100 WBC 0 X 10*3/uL (0.00-0.01); Neutrophils # (A) 3.69 X 10*3/uL (1.80-7.70); Platelet Count 161 X 10*3/uL (140-440); RBC 2.34 X 10*6/uL (4.10-5.20); RDW 12.4 % (11.5-14.5); WBC 6.72 X 10*3/uL (4.50-10.00)
[2023-02-11] MEDS: FLUoxetine HCL 20 MG CAP PO SCH (10:16)
[2023-02-11] MEDS: SEVELAMER 800 MG TAB PO SCH ×3 (10:16→17:11)
[2023-02-11] MEDS: METHENAMINE HIPPURATE 1 GM PO SCH ×2 (10:17→22:32)
[2023-02-11] MEDS: LORATADINE 10 MG TAB PO SCH (10:17)
[2023-02-11] MEDS: DOCUSATE 100 MG CAP PO SCH ×2 (10:17→22:29)
[2023-02-11] MEDS: SODIUM BICARBONATE TAB 650 MG TAB PO SCH ×3 (10:17→22:30)
[2023-02-11] MEDS: HEPARIN SODIUM,PORCINE 5,000 UNIT/ML 1 ML VIAL SQ SCH ×2 (10:19→22:55)
[2023-02-11] MEDS: Mirabegron [Myrbetriq] 25 MG Tab.Er.24h PO SCH ×2 (10:19→22:33)
[2023-02-11] MEDS: BENZONATATE 100 MG CAP PO PRN (10:33)
[2023-02-11] MEDS: traMADol 50 MG TAB PO PRN ×2 (10:33→22:36)
[2023-02-11] MEDS: MIDODRINE 5 MG TAB PO PRN (10:43)
--- NOTE | 2023-02-11 11:46 | P.PN ---
Subjective Progress Note Date: 02/11/23 Principal diagnosis: Right hydronephrosis The patient is primarily bothered by a cough. Her renal function has failed to improve. Objective - Vital Signs Vital signs: Vital Signs Temp 97.3 F L 02/11/23 08:21 Pulse 68 02/11/23 09:36 Resp 16 02/11/23 08:21 BP 91/51 02/11/23 08:21 Pulse Ox 95 02/11/23 08:21 FiO2 Intake & Output 02/10/23 02/11/23 02/11/23 18:59 06:59 18:59 Intake Total 500 500 Output Total 1000 1150 Balance -500 -650 Weight 48.534 kg Intake: Oral 500 500 Output: Urine 1000 1150 Other: Voiding Method Toilet # Voids 1 3 - Constitutional General appearance: Present: average body habitus, no acute distress - Psychiatric Psychiatric: Present: A&O x's 3 - Labs CBC & Chem 7: 02/11/23 05:55 02/11/23 05:55 Labs: Abnormal Lab Results - Last 24 Hours (Table) 02/11/23 02/11/23 Range/Units 05:55 05:55 RBC 2.34 L (4.10-5.20) X 10*6/uL Hgb 7.6 L (12.0-15.0) d/dL Hct 24.6 L (37.2-46.3) % MCV 105.1 H (80.0-97.0) FL MCH 32.5 H (27.0-32.0) pg MCHC 30.9 L (32.0-37.0) d/dL Anion Gap 12.40 H (4.00-12.00) mmol/L BUN 60.1 H (9.0-27.0) mg/dL Creatinine 3.2 H (0.6-1.5) mg/dL Est GFR (CKD-EPI) 14 L (>=60) Calcium 8.6 L (8.7-10.3) mg/dL Assessment and Plan (1) Hydronephrosis Current Visit: No Status: Acute Code(s): N13.30 - UNSPECIFIED HYDRONEPHROSIS SNOMED Code(s): 62662998 Plan: The patient is well known to Dr. Hennessy. 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 Urinalysis is unremarkable. Given that the hydronephrosis is chronic, I do not feel it is responsible for any recent changes in renal function. She may benefit from cystoscopy, right retrograde pyelogram, right ureteral stent insertion if her renal function fails to improve.
--- NOTE | 2023-02-11 13:29 | P.PN ---
Subjective Progress Note Date: 02/11/23 Principal diagnosis: Follow-up for acute kidney injury. Urine output of 2 L in the last 24 hours. Objective - Vital Signs Vital signs: Vital Signs Temp 97.3 F L 02/11/23 12:30 Pulse 72 02/11/23 12:53 Resp 16 02/11/23 12:30 BP 112/71 02/11/23 12:30 Pulse Ox 97 02/11/23 12:30 FiO2 Intake & Output 02/10/23 02/11/23 02/11/23 18:59 06:59 18:59 Intake Total 500 500 Output Total 1000 1150 Balance -500 -650 Weight 48.534 kg Intake: Oral 500 500 Output: Urine 1000 1150 Other: Voiding Method Toilet # Voids 1 3 - Exam No acute distress S1-S2 heard Lungs clear No edema - Labs CBC & Chem 7: 02/11/23 05:55 02/11/23 05:55 Labs: Abnormal Lab Results - Last 24 Hours (Table) 02/11/23 02/11/23 Range/Units 05:55 05:55 RBC 2.34 L (4.10-5.20) X 10*6/uL Hgb 7.6 L (12.0-15.0) d/dL Hct 24.6 L (37.2-46.3) % MCV 105.1 H (80.0-97.0) FL MCH 32.5 H (27.0-32.0) pg MCHC 30.9 L (32.0-37.0) d/dL Anion Gap 12.40 H (4.00-12.00) mmol/L BUN 60.1 H (9.0-27.0) mg/dL Creatinine 3.2 H (0.6-1.5) mg/dL Est GFR (CKD-EPI) 14 L (>=60) Calcium 8.6 L (8.7-10.3) mg/dL Assessment and Plan Assessment: #1 acute kidney injury secondary to ATN. -Baseline creatinine around 2.5-3.0 MG per DL MG per DL. 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 #3 metabolic acidosis secondary to chronic kidney disease #4 anemia with chronic kidney disease #5 right hydronephrosis Plan: #1 continue with IV fluids, hold diuretics for now. #2 urology input noted. #3 avoid nephrotoxic agents and hypotensive episodes
[2023-02-11] MEDS: SODIUM CHLORIDE 0.9% 1,000 ML IV SCH (18:05)
--- NOTE | 2023-02-11 21:48 | PN ---
PROGRESS NOTE DATE OF SERVICE: 02/11/2023 SUBJECTIVE: This is a 77-year-old woman who was admitted after acute on chronic kidney disease, end- stage renal failure, also was on hemodialysis previously. The patient has some cough. No chest pain, no palpitation. On exam, the patient complains of cough. OBJECTIVE: VITAL SIGNS: Pulse is 72, blood pressure 110/70, respirations 16. CHEST: A few scattered rhonchi. ABDOMEN: Soft. NERVOUS SYSTEM. No focal deficits.. LABORATORY DATA: Hemoglobin 7.2, rest of the labs are noted. ASSESSMENT: 1. Acute on chronic kidney disease, renal failure. 2. History of chronic kidney disease, on hemodialysis previously. 3. History of asthma, COPD. 4. Chronic right hydronephrosis per Urology. 5. History of DJD. 6. Multiple complex medical issues. 7. bariatric surgery. RECOMMENDATIONS: Recommended to continue current management, continue symptomatic treatment. Monitor creatinine closely. It is rather stable at 3.2 today. Urology input of the patient. Closely follow with nephrology. Further recommendations to follow. MMODL / IJN: [id number] / MARCELO
[2023-02-11] MEDS: MONTELUKAST 10 MG TAB PO SCH (22:30)
[2023-02-12] MEDS: LEVOTHYROXINE 75 MCG TAB PO SCH (06:21)
[2023-02-12] MEDS: DOCUSATE 100 MG CAP PO SCH ×2 (07:59→22:43)
[2023-02-12] MEDS: FLUoxetine HCL 20 MG CAP PO SCH (08:00)
[2023-02-12] MEDS: METHENAMINE HIPPURATE 1 GM PO SCH ×2 (08:00→22:44)
[2023-02-12] MEDS: PANTOPRAZOLE 40 MG/10 ML VIAL IVP SCH ×2 (08:00→22:44)
[2023-02-12] MEDS: LORATADINE 10 MG TAB PO SCH (08:00)
[2023-02-12] MEDS: SEVELAMER 800 MG TAB PO SCH ×3 (08:00→18:24)
[2023-02-12] MEDS: HEPARIN SODIUM,PORCINE 5,000 UNIT/ML 1 ML VIAL SQ SCH ×2 (08:00→22:45)
[2023-02-12] MEDS: SODIUM BICARBONATE TAB 650 MG TAB PO SCH ×3 (08:00→22:43)
[2023-02-12] MEDS: traMADol 50 MG TAB PO PRN ×2 (08:05→23:32)
[2023-02-12] MEDS: IPRATROPIUM-ALBUTEROL 3 ML NEB INHALATION SCH ×3 (08:10→20:06)
[2023-02-12] MEDS: SYMBICORT 80-4.5 MCG INHALER INHALATION SCH ×2 (08:10→20:07)
[2023-02-12 11:22] LABS: African American GFR (CKD) 17 (>60 ml/min/1.73 sqM); Anion Gap 12 mmol/L; Blood Urea Nitrogen 63 mg/dL (7-17); Calcium 7.8 mg/dL (8.4-10.2); Carbon Dioxide 17 mmol/L (22-30); Chloride 107 mmol/L (98-107); Glucose 98 mg/dL (74-99); Non-African American GFR(CKD) 15 (>60 ml/min/1.73 sqM); Potassium 4.7 mmol/L (3.5-5.1); Sodium 136 mmol/L (137-145)
[2023-02-12 11:38] LABS: Basophils % (A) 0 %; Eosinophils # (A) 0.2 k/uL (0-0.7); Eosinophils % (A) 3 %; HCT 27.1 % (34.0-46.0); HGB 8.4 gm/dL (11.4-16.0); Lymphocytes # (A) 1.8 k/uL (1.0-4.8); Lymphocytes % (A) 28 %; MCH 32.3 pg (25.0-35.0); MCHC 30.9 g/dL (31.0-37.0); MCV 104.6 fL (80.0-100.0); Macrocytosis Slight; Mean Platelet Volume 8.7; Monocytes # (A) 0.5 k/uL (0-1.0); Monocytes % (A) 7 %; Neutrophils % (A) 60 %; Platelet Count 148 k/uL (150-450); RBC 2.59 m/uL (3.80-5.40); RDW 12.7 % (11.5-15.5); WBC 6.6 k/uL (3.8-10.6)
[2023-02-12] MEDS: BENZONATATE 100 MG CAP PO PRN ×2 (13:40→23:32)
--- NOTE | 2023-02-12 14:11 | P.PN ---
Subjective Progress Note Date: 02/12/23 Principal diagnosis: Follow-up for acute kidney injury. Urine output of 2 L in the last 24 hours. Objective - Vital Signs Vital signs: Vital Signs Temp 98.5 F 02/12/23 13:25 Pulse 71 02/12/23 13:25 Resp 15 02/12/23 13:25 BP 115/70 02/12/23 13:25 Pulse Ox 95 02/12/23 13:25 FiO2 Intake & Output 02/11/23 02/12/23 02/12/23 18:59 06:59 18:59 Intake Total 300 Output Total 1025 825 Balance -1028 -138 Intake: Oral 300 Output: Urine 1025 825 Other: Voiding Method Toilet Toilet - Exam No acute distress S1-S2 heard Lungs clear No edema - Labs CBC & Chem 7: 02/12/23 10:04 02/12/23 10:04 Labs: Abnormal Lab Results - Last 24 Hours (Table) 02/12/23 02/12/23 Range/Units 10:04 10:04 RBC 2.59 L (3.80-5.40) m/uL Hgb 8.4 L (11.4-16.0) gm/dL Hct 27.1 L (34.0-46.0) % MCV 104.6 H (80.0-100.0) fL MCHC 30.9 L (31.0-37.0) g/dL Plt Count 148 L (150-450) k/uL Sodium 136 L (137-145) mmol/L Carbon Dioxide 17 L (22-30) mmol/L BUN 63 H (7-17) mg/dL Creatinine 2.96 H (0.52-1.04) mg/dL Calcium 7.8 L (8.4-10.2) mg/dL Assessment and Plan Assessment: #1 acute kidney injury secondary to ATN. -Baseline creatinine around 2.5-3.0 MG per DL MG per DL. 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 #3 metabolic acidosis secondary to chronic kidney disease #4 anemia with chronic kidney disease #5 right hydronephrosis Plan: #1 continue with IV fluids, hold diuretics for now. #2 urology input noted. #3 renal function stable and improving. #4 avoid nephrotoxic agents and hypotensive episodes
[2023-02-12] MEDS ORDERED: DEXTROSE 50% SYRINGE 50 ML IVP PRN (14:43)
[2023-02-12] MEDS: methylPREDNISolone SOD SUCCI 40 MG/ML 1 ML VIAL IV SCH ×2 (16:24→23:33)
[2023-02-12 17:15] LABS: Glucose,Whole Blood 88 mg/dL (70-110)
[2023-02-12] MEDS: INSULIN ASPART (NovoLOG) 100 UNIT/ML VIAL SQ SCH ×2 (17:46→22:43)
[2023-02-12] MEDS: SODIUM CHLORIDE 0.9% 1,000 ML IV SCH (18:25)
[2023-02-12 20:12] LABS: Glucose,Whole Blood 128 mg/dL (70-110)
[2023-02-12] MEDS: Mirabegron [Myrbetriq] 25 MG Tab.Er.24h PO SCH (22:44)
[2023-02-12] MEDS: MONTELUKAST 10 MG TAB PO SCH (23:32)
[2023-02-13] MEDS: MIDODRINE 5 MG TAB PO PRN (01:33)
--- NOTE | 2023-02-13 05:13 | PN ---
PROGRESS NOTE DATE OF SERVICE: 02/12/2023 SUBJECTIVE: This 77-year-old woman who was admitted with acute on chronic renal failure. Her creatinine improved slightly today at 2.96. No chest pain, no palpitation. OBJECTIVE: VITAL SIGNS: Pulse 71, blood pressure 115/70, respirations 15. CHEST: A few scattered rhonchi. ABDOMEN: Soft. NERVOUS SYSTEM: No focal deficits. LABS: Reviewed. ASSESSMENT: 1. Acute on chronic kidney disease with renal failure. 2. Chronic kidney disease, on hemodialysis previously. 3. chronic obstructive pulmonary disease, asthma. 4. Chronic right hydronephrosis per Urology. 5. History of degenerative joint disease. 6. Multiple complex medical issues. 7. History of bariatric surgery. RECOMMENDATIONS: Recommend to continue current management and treatment. Otherwise, at this time, I would recommend continue the current medications. Continue with bronchodilators. I would also recommend a short course of steroids. Further recommendations to follow. MMODL / IJN: [id number] /
[2023-02-13] MEDS: LEVOTHYROXINE 75 MCG TAB PO SCH (06:45)
[2023-02-13 07:10] LABS: Glucose,Whole Blood 146 mg/dL (70-110)
[2023-02-13 07:12] LABS: African American GFR (CKD) 20 (>60 ml/min/1.73 sqM); Anion Gap 12 mmol/L; Blood Urea Nitrogen 66 mg/dL (7-17); Calcium 7.6 mg/dL (8.4-10.2); Carbon Dioxide 13 mmol/L (22-30); Chloride 110 mmol/L (98-107); Glucose 135 mg/dL (74-99); Non-African American GFR(CKD) 17 (>60 ml/min/1.73 sqM); Sodium 135 mmol/L (137-145)
[2023-02-13 07:13] LABS: Potassium 5.6 mmol/L (3.5-5.1)
[2023-02-13] MEDS: INSULIN ASPART (NovoLOG) 100 UNIT/ML VIAL SQ SCH ×2 (07:30→12:09)
[2023-02-13] MEDS: SYMBICORT 80-4.5 MCG INHALER INHALATION SCH ×2 (07:45→19:57)
[2023-02-13] MEDS: IPRATROPIUM-ALBUTEROL 3 ML NEB INHALATION SCH ×3 (07:45→19:57)
[2023-02-13] MEDS: FLUoxetine HCL 20 MG CAP PO SCH (08:34)
[2023-02-13] MEDS: LORATADINE 10 MG TAB PO SCH (08:34)
[2023-02-13] MEDS: SODIUM BICARBONATE TAB 650 MG TAB PO SCH ×3 (08:34→21:45)
[2023-02-13] MEDS: DOCUSATE 100 MG CAP PO SCH ×2 (08:34→21:59)
[2023-02-13] MEDS: SEVELAMER 800 MG TAB PO SCH ×3 (08:34→18:07)
[2023-02-13] MEDS: HEPARIN SODIUM,PORCINE 5,000 UNIT/ML 1 ML VIAL SQ SCH ×2 (08:35→21:50)
[2023-02-13] MEDS: METHENAMINE HIPPURATE 1 GM PO SCH ×2 (08:35→21:57)
[2023-02-13 08:40] LABS: HCT 29.9 % (37.2-46.3); HGB 8.9 d/dL (12.0-15.0); MCH 32.5 pg (27.0-32.0); MCHC 29.8 d/dL (32.0-37.0); MCV 109.1 FL (80.0-97.0); Mean Platelet Volume 10.3 FL (9.5-12.2); NRBC Per 100 WBC 0 X 10*3/uL (0.00-0.01); Platelet Count 199 X 10*3/uL (140-440); RBC 2.74 X 10*6/uL (4.10-5.20); RDW 12.4 % (11.5-14.5); WBC 8.35 X 10*3/uL (4.50-10.00)
[2023-02-13 08:41] LABS: Basophils # (A) 0.05 X 10*3/uL (0.00-0.10); Basophils % (A) 0.6 %; Eosinophils # (A) 0 X 10*3/uL (0.04-0.35); Eosinophils % (A) 0 %; Lymphocytes # (A) 0.98 X 10*3/uL (0.90-5.00); Lymphocytes % (A) 11.7 %; Monocytes # (A) 0.14 X 10*3/uL (0.20-1.00); Monocytes % (A) 1.7 %; Neutrophils # (A) 7.06 X 10*3/uL (1.80-7.70); Neutrophils % (A) 84.6 %
[2023-02-13] MEDS: PANTOPRAZOLE 40 MG/10 ML VIAL IVP SCH ×2 (09:10→21:50)
[2023-02-13] MEDS: methylPREDNISolone SOD SUCCI 40 MG/ML 1 ML VIAL IV SCH ×3 (09:11→21:57)
[2023-02-13] MEDS: traMADol 50 MG TAB PO PRN ×2 (09:16→18:19)
[2023-02-13 11:54] LABS: Glucose,Whole Blood 143 mg/dL (70-110)
[2023-02-13] MEDS ORDERED: SODIUM ZIRCONIUM CYCLOSILICATE 10 GM PACKET PO ONE (13:56)
[2023-02-13] MEDS: SODIUM CHLORIDE 0.9% 1,000 ML IV SCH ×2 (14:29→14:52)
--- NOTE | 2023-02-13 14:37 | XR ---
EXAMINATION TYPE: XR chest 1V portable DATE OF EXAM: 02/13/2023 HISTORY: Shortness of breath. COMPARISON: 02/08/2023 TECHNIQUE: Single view of the chest is submitted. FINDINGS: Demonstrated are scattered senescent parenchymal change. There is no evidence for focal infiltrate. The heart is stable. Hilar and mediastinal structures are within normal limits. Degenerative changes are seen of the dorsal spine. IMPRESSION: 1. Chronic changes without evidence for acute pulmonary disease.
--- NOTE | 2023-02-13 15:32 | P.PN ---
Subjective Progress Note Date: 02/13/23 This is a 77-year-old female who was recently admitted with acute on chronic renal failure and kidney function slightly trending down. Potassium was slightly elevated and will give a dose of lokelma. Patient was started on IV steroids along with breathing treatments and patient reports patient had severe reaction to insulin while at a different facility and slipped into a coma. Insulin sliding scale has been ordered here and will discontinue and just monitor blood sugars. IV steroids have been decreased as patient is minimally wheezy. Patient continues to have some dry cough and is maintained on breathing treatments. Patient does have history of COPD with acute exacerbation. Patient on gentle hydration per nephrology and kidney functions are improving and continues to make urine. Patient with significant weakness will have physical therapy evaluate. Patient is currently afebrile with no reports of chest pain or palpitations. Patient reports feeling better and oral intake is slightly improved. Recommend continue with low potassium renal diet. Review of systems: Constitutional: No reports of fatigue, fever, or chills Cardiovascular: No reports of chest pain or palpitations Respiratory: reports of occasional shortness of breath , dry cough GI: No reports of nausea, no reports of vomiting, no diarrhea : No reports of dysuria or retention Neurovascular: reports of generalized weakness All medications have been reviewed PHYSICAL EXAMINATION: GENERAL: The patient is alert and oriented x4, Well developed, thin built, elderly appearing HEENT: Pupils are round and equally reacting to light. EOMI. no scleral icterus. No conjunctival pallor. Normocephalic, atraumatic. No pharyngeal erythema. No thyromegaly. CARDIOVASCULAR: S1 and S2 muffled PULMONARY: diminished breath sounds bilaterally with no wheezing or rhonchi noted. ABDOMEN: soft. Nontender on exam. obese. non-distended, normoactive bowel sounds. No palpable organomegaly. MUSCULOSKELETAL: No joint swelling or deformity. EXTREMITIES: No cyanosis, clubbing, or pedal edema. Lower extremity edema NEUROLOGICAL: Gross neurological examination did not reveal any focal deficits. Diffuse weakness SKIN: No rashes. Assessment: Acute on chronic kidney disease with renal failure Chronic kidney disease, was on hemodialysis previously Chronic obstructive pulmonary disease with history of asthma as well, acute exacerbation of COPD Chronic right hydronephrosis per urology History of degenerative joint disease History of bariatric surgery GI prophylaxis DVT prophylaxis Full code Plan: Patient will continue on gentle IV hydration with nephrology following and kidney functions are improving. Potassium elevated today and will give a dose of lokelma and follow-up with repeat labs Encouraged increased activity as tolerated is patient continues with significant weakness will have physical therapy evaluate the patient Continue to encourage oral intake and supplements between meals and continue low potassium and low sodium diet Patient continues with the cough and feels somewhat short of breath at times and followed up chest x-ray today shows no evidence for acute pulmonary disease A.m. labs ordered Will await physical therapy evaluation and discuss further with nephrology about discharge planning Possible discharge in the next 24-48 hours The impression and plan of care has been dictated by Catherine Rojas, nurse practitioner as directed. Dr. Edmundo MD I have performed a history and examination and MDM of this patient, discussed the same with the dictator, and agree with the dictator's assessment and plan as written ,documented as a scribe. Based on total visit time, I have performed more than 50% of the visit. Any additional findings or plans will be noted. Objective - Vital Signs Vital signs: Vital Signs Temp 97.6 F 02/13/23 12:36 Pulse 79 02/13/23 12:36 Resp 16 02/13/23 12:36 BP 111/67 02/13/23 12:36 Pulse Ox 98 02/13/23 12:36 FiO2 Intake & Output 02/12/23 02/13/23 02/13/23 18:59 06:59 18:59 Intake Total 1200 358 Output Total 1125 Balance 75 358 Intake: Intake, IV Titration 600 Amount Sodium Chloride 0.9% 1, 600 000 ml @ 50 mls/hr IV . Q20H [facility] Rx#:[id number] Oral 600 358 Output: Urine 1125 Other: Voiding Method Toilet Toilet # Voids 1 - Labs CBC & Chem 7: 02/13/23 06:02 02/13/23 06:02 Labs: Abnormal Lab Results - Last 24 Hours (Table) 02/12/23 02/13/23 02/13/23 Range/Units 20:07 06:02 06:02 RBC 2.74 L (4.10-5.20) X 10*6/uL Hgb 8.9 L (12.0-15.0) d/dL Hct 29.9 L (37.2-46.3) % MCV 109.1 H (80.0-97.0) FL MCH 32.5 H (27.0-32.0) pg MCHC 29.8 L (32.0-37.0) d/dL Monocytes # 0.14 L (0.20-1.00) X 10*3/uL Eosinophils # 0 L (0.04-0.35) X 10*3/uL Sodium 135 L (137-145) mmol/L Potassium 5.6 H (3.5-5.1) mmol/L Chloride 110 H (98-107) mmol/L Carbon Dioxide 13 L (22-30) mmol/L BUN 66 H (7-17) mg/dL Creatinine 2.55 H (0.52-1.04) mg/dL Glucose 135 H (74-99) mg/dL POC Glucose (mg/dL) 128 H (70-110) mg/dL Calcium 7.6 L (8.4-10.2) mg/dL 02/13/23 02/13/23 Range/Units 07:08 11:53 RBC (4.10-5.20) X 10*6/uL Hgb (12.0-15.0) d/dL Hct (37.2-46.3) % MCV (80.0-97.0) FL MCH (27.0-32.0) pg MCHC (32.0-37.0) d/dL Monocytes # (0.20-1.00) X 10*3/uL Eosinophils # (0.04-0.35) X 10*3/uL Sodium (137-145) mmol/L Potassium (3.5-5.1) mmol/L Chloride (98-107) mmol/L Carbon Dioxide (22-30) mmol/L BUN (7-17) mg/dL Creatinine (0.52-1.04) mg/dL Glucose (74-99) mg/dL POC Glucose (mg/dL) 146 H 143 H (70-110) mg/dL Calcium (8.4-10.2) mg/dL
[2023-02-13 17:16] LABS: Glucose,Whole Blood 160 mg/dL (70-110)
[2023-02-13] MEDS: BENZONATATE 100 MG CAP PO PRN (18:16)
--- NOTE | 2023-02-13 19:50 | P.PN ---
Subjective Patient is seen for f/u for CKD and PRIYANKA. Renal function has improved after IV hydation. Cr decreased to 2.5 Objective - Vital Signs Vital signs: Vital Signs Temp 97.6 F 02/13/23 12:36 Pulse 79 02/13/23 12:36 Resp 16 02/13/23 12:36 BP 111/67 02/13/23 12:36 Pulse Ox 98 02/13/23 12:36 FiO2 Intake & Output 02/13/23 02/13/23 02/14/23 06:59 18:59 06:59 Intake Total 1796 Output Total 500 Balance 1296 Intake: Oral 1796 Output: Urine 500 Other: Voiding Method Toilet Toilet # Voids 1 1 - Exam Patient is awake Comfortable Lungs are clear CVS S1 and S2 Abdomen is soft Extremities chronic edema - Labs CBC & Chem 7: 02/13/23 06:02 02/13/23 06:02 Labs: Abnormal Lab Results - Last 24 Hours (Table) 02/12/23 02/13/23 02/13/23 Range/Units 20:07 06:02 06:02 RBC 2.74 L (4.10-5.20) X 10*6/uL Hgb 8.9 L (12.0-15.0) d/dL Hct 29.9 L (37.2-46.3) % MCV 109.1 H (80.0-97.0) FL MCH 32.5 H (27.0-32.0) pg MCHC 29.8 L (32.0-37.0) d/dL Monocytes # 0.14 L (0.20-1.00) X 10*3/uL Eosinophils # 0 L (0.04-0.35) X 10*3/uL Sodium 135 L (137-145) mmol/L Potassium 5.6 H (3.5-5.1) mmol/L Chloride 110 H (98-107) mmol/L Carbon Dioxide 13 L (22-30) mmol/L BUN 66 H (7-17) mg/dL Creatinine 2.55 H (0.52-1.04) mg/dL Glucose 135 H (74-99) mg/dL POC Glucose (mg/dL) 128 H (70-110) mg/dL Calcium 7.6 L (8.4-10.2) mg/dL 02/13/23 02/13/23 02/13/23 Range/Units 07:08 11:53 17:14 RBC (4.10-5.20) X 10*6/uL Hgb (12.0-15.0) d/dL Hct (37.2-46.3) % MCV (80.0-97.0) FL MCH (27.0-32.0) pg MCHC (32.0-37.0) d/dL Monocytes # (0.20-1.00) X 10*3/uL Eosinophils # (0.04-0.35) X 10*3/uL Sodium (137-145) mmol/L Potassium (3.5-5.1) mmol/L Chloride (98-107) mmol/L Carbon Dioxide (22-30) mmol/L BUN (7-17) mg/dL Creatinine (0.52-1.04) mg/dL Glucose (74-99) mg/dL POC Glucose (mg/dL) 146 H 143 H 160 H (70-110) mg/dL Calcium (8.4-10.2) mg/dL Assessment and Plan Assessment: 1 acute kidney injury secondary to ATN. -Baseline creatinine around 2.5-3.0 MG per DL MG per DL. 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 #3 metabolic acidosis secondary to chronic kidney disease #4 anemia with chronic kidney disease #5 right hydronephrosis Plan: Continue IVF.
[2023-02-13 20:16] LABS: Glucose,Whole Blood 198 mg/dL (70-110)
[2023-02-13] MEDS: MONTELUKAST 10 MG TAB PO SCH (21:45)
[2023-02-13] MEDS: Mirabegron [Myrbetriq] 25 MG Tab.Er.24h PO SCH (21:57)
[2023-02-13 23:54] LABS: Glucose,Whole Blood 159 mg/dL (70-110)
[2023-02-14 01:55] LABS: Glucose,Whole Blood 159 mg/dL (70-110)
[2023-02-14 06:02] LABS: Glucose,Whole Blood 160 mg/dL (70-110)
[2023-02-14 07:25] LABS: Glucose,Whole Blood 101 mg/dL (70-110)
[2023-02-14] MEDS: SYMBICORT 80-4.5 MCG INHALER INHALATION SCH ×2 (08:31→20:00)
[2023-02-14] MEDS: IPRATROPIUM-ALBUTEROL 3 ML NEB INHALATION SCH ×3 (08:31→20:00)
[2023-02-14] MEDS: traMADol 50 MG TAB PO PRN ×2 (08:54→21:58)
[2023-02-14] MEDS: SODIUM CHLORIDE 0.9% 1,000 ML IV SCH (08:54)
[2023-02-14] MEDS: methylPREDNISolone SOD SUCCI 40 MG/ML 1 ML VIAL IV SCH ×2 (08:55→20:40)
[2023-02-14] MEDS: PANTOPRAZOLE 40 MG/10 ML VIAL IVP SCH ×2 (08:55→20:39)
[2023-02-14] MEDS: SEVELAMER 800 MG TAB PO SCH ×3 (08:56→17:10)
[2023-02-14] MEDS: SODIUM BICARBONATE TAB 650 MG TAB PO SCH ×3 (08:56→21:58)
[2023-02-14] MEDS: FLUoxetine HCL 20 MG CAP PO SCH (08:56)
[2023-02-14] MEDS: HEPARIN SODIUM,PORCINE 5,000 UNIT/ML 1 ML VIAL SQ SCH ×2 (08:56→20:40)
[2023-02-14] MEDS: DOCUSATE 100 MG CAP PO SCH ×3 (08:56→20:40)
[2023-02-14] MEDS: LORATADINE 10 MG TAB PO SCH (08:56)
[2023-02-14] MEDS: LEVOTHYROXINE 75 MCG TAB PO SCH (08:57)
[2023-02-14] MEDS: METHENAMINE HIPPURATE 1 GM PO SCH ×2 (09:07→20:38)
[2023-02-14] MEDS: DEXTROSE 5% IN WATER 1,000 ML with SODIUM BICARB (1 MEQ/ML) 150 ML IV SCH (11:49)
[2023-02-14 12:06] LABS: Glucose,Whole Blood 108 mg/dL (70-110)
[2023-02-14] MEDS ORDERED: FUROSEMIDE 10 MG/ML 4 ML VIAL IV STA (12:44)
--- NOTE | 2023-02-14 12:44 | P.PN ---
Subjective Patient is seen for f/u for CKD and PRIYANKA. Renal function has improved after IV hydration. Cr decreased to 2.5 yesterday from peak of 3.5. Complaining of cough. Blood pressure improved Objective - Vital Signs Vital signs: Vital Signs Temp 97.7 F 02/14/23 07:21 Pulse 76 02/14/23 08:46 Resp 16 02/14/23 07:21 BP 122/72 02/14/23 07:21 Pulse Ox 99 02/14/23 07:21 FiO2 Intake & Output 02/13/23 02/14/23 02/14/23 18:59 06:59 18:59 Intake Total 1796 1150 Output Total 500 1480 Balance 1296 -330 Weight 48.534 kg Intake: Oral 1796 1150 Output: Urine 500 1480 Other: Voiding Method Toilet Toilet Toilet # Voids 1 - Exam Patient is awake Comfortable Lungs are clear CVS S1 and S2 Abdomen is soft Extremities chronic edema [employer] exam grossly intact - Labs CBC & Chem 7: 02/13/23 06:02 02/13/23 06:02 Labs: Abnormal Lab Results - Last 24 Hours (Table) 02/13/23 02/13/23 02/13/23 Range/Units 17:14 20:14 23:52 POC Glucose (mg/dL) 160 H 198 H 159 H (70-110) mg/dL 02/14/23 02/14/23 Range/Units 01:52 04:08 POC Glucose (mg/dL) 159 H 160 H (70-110) mg/dL Assessment and Plan Assessment: 1 acute kidney injury secondary to ATN. Improving -Baseline creatinine around 2.5-3.0 MG per DL MG per DL. #2 chronic kidney disease stage V secondary to chronic interstitial nephritis and obstructive uropathy. History of left percutaneous nephrolithotomy 2019 and chronic right hydronephrosis. #3 metabolic acidosis secondary to chronic kidney disease #4 anemia with chronic kidney disease #5 right hydronephrosis, chronic. Patient follows with urology as outpatient. No plans for intervention at this time as renal function is improving. 6. Hyperkalemia associated with severe metabolic acidosis and renal failure. Plan: Continue IVF. IV Lasix 1 to help with hyperkalemia Switch to IV bicarb Repeat labs in a.m. Low potassium diet Continue with phosphate binders
[2023-02-14 13:41] LABS: African American GFR (CKD) 20 (>60 ml/min/1.73 sqM); Anion Gap 11 mmol/L; Blood Urea Nitrogen 56 mg/dL (7-17); Calcium 7.3 mg/dL (8.4-10.2); Carbon Dioxide 15 mmol/L (22-30); Chloride 109 mmol/L (98-107); Glucose 121 mg/dL (74-99); Non-African American GFR(CKD) 18 (>60 ml/min/1.73 sqM); Sodium 135 mmol/L (137-145)
--- NOTE | 2023-02-14 16:28 | P.PN ---
Subjective Progress Note Date: 02/14/23 This is a 77-year-old female who was recently admitted with acute on chronic renal failure and kidney function slightly trending down. Potassium was slightly elevated and will give a dose of lokelma. Patient was started on IV steroids along with breathing treatments and patient reports patient had severe reaction to insulin while at a different facility and slipped into a coma. Insulin sliding scale has been ordered here and will discontinue and just monitor blood sugars. IV steroids have been decreased as patient is minimally wheezy. Patient continues to have some dry cough and is maintained on breathing treatments. Patient does have history of COPD with acute exacerbation. Patient on gentle hydration per nephrology and kidney functions are improving and continues to make urine. Patient with significant weakness will have physical therapy evaluate. Patient is currently afebrile with no reports of chest pain or palpitations. Patient reports feeling better and oral intake is slightly improved. Recommend continue with low potassium renal diet. 02/14/2023 Patient is seen and evaluated in follow-up with nephrology following closely. Kidney functions trending down and creatinine is currently 2.52 and potassium improved at 4.0. Continue renal diet with low potassium and will follow up on repeat labs. Nephrology following closely and patient is being started on sodium bicarb drip as well as sodium bicarb tablets and will monitor closely. Patient continues on breathing inhalational treatments along with IV steroids and reports no significant difference in breathing. Patient reports to feeling better and was able to work with physical therapy and did well. Patient plans on returning home and has support at home. Encouraged increased activity as tolerated and continued oral intake. Review of systems: Constitutional: No reports of fatigue, fever, or chills Cardiovascular: No reports of chest pain or palpitations Respiratory: reports of occasional shortness of breath , dry cough GI: No reports of nausea, no reports of vomiting, no diarrhea : No reports of dysuria or retention Neurovascular: reports of generalized weakness All medications have been reviewed PHYSICAL EXAMINATION: GENERAL: The patient is alert and oriented x4, Well developed, thin built, elderly appearing HEENT: Pupils are round and equally reacting to light. EOMI. no scleral icterus. No conjunctival pallor. Normocephalic, atraumatic. No pharyngeal erythema. No thyromegaly. CARDIOVASCULAR: S1 and S2 muffled PULMONARY: diminished breath sounds bilaterally with no wheezing or rhonchi noted. ABDOMEN: soft. Nontender on exam. obese. non-distended, normoactive bowel margo nds. No palpable organomegaly. MUSCULOSKELETAL: No joint swelling or deformity. EXTREMITIES: No cyanosis, clubbing, or pedal edema. Lower extremity edema NEUROLOGICAL: Gross neurological examination did not reveal any focal deficits. Diffuse weakness SKIN: No rashes. Assessment: Acute on chronic kidney disease with acute kidney injury secondary to acute tubular necrosis, trending down Chronic kidney disease stage IV secondary to chronic interstitial nephritis and obstructive uropathy, was on hemodialysis previously Chronic obstructive pulmonary disease with history of asthma as well, acute exacerbation of COPD Chronic right hydronephrosis per urology History of degenerative joint disease History of bariatric surgery GI prophylaxis DVT prophylaxis Full code Plan: Patient will continue on sodium bicarb drip along with sodium bicarb tablets with nephrology following and kidney functions are improving. Potassium level is 4.0 today and was given a dose of Lasix per nephrology Encouraged increased activity as tolerated is patient continues to report generalized weakness. Patient worked with physical therapy today and did well, plan will be to return home on discharge Continue to encourage oral intake and supplements between meals and continue low potassium and low sodium diet Patient continues with the cough and feels somewhat short of breath at times although has slightly improved A.m. labs ordered to monitor kidney functions and electrolytes Possible discharge in the next 24-48 hours The impression and plan of care has been dictated by Catherine Rojas, nurse practitioner as directed. Dr. Edmundo MD I have performed a history and examination and MDM of this patient, discussed the same with the dictator, and agree with the dictator's assessment and plan as written ,documented as a scribe. Based on total visit time, I have performed more than 50% of the visit. Any additional findings or plans will be noted. Objective - Vital Signs Vital signs: Vital Signs Temp 97.9 F 02/14/23 12:03 Pulse 80 02/14/23 13:16 Resp 14 02/14/23 12:03 BP 127/75 02/14/23 12:03 Pulse Ox 98 02/14/23 12:03 FiO2 Intake & Output 02/13/23 02/14/23 02/14/23 18:59 06:59 18:59 Intake Total 1796 1150 Output Total 500 1480 Balance 1296 -330 Weight 48.534 kg Intake: Oral 1796 1150 Output: Urine 500 1480 Other: Voiding Method Toilet Toilet Toilet # Voids 1 - Labs CBC & Chem 7: 02/13/23 06:02 02/14/23 13:20 Labs: Abnormal Lab Results - Last 24 Hours (Table) 02/13/23 02/13/23 02/13/23 Range/Units 17:14 20:14 23:52 Sodium (137-145) mmol/L Chloride (98-107) mmol/L Carbon Dioxide (22-30) mmol/L BUN (7-17) mg/dL Creatinine (0.52-1.04) mg/dL Glucose (74-99) mg/dL POC Glucose (mg/dL) 160 H 198 H 159 H (70-110) mg/dL Calcium (8.4-10.2) mg/dL 02/14/23 02/14/23 02/14/23 Range/Units 01:52 04:08 13:20 Sodium 135 L (137-145) mmol/L Chloride 109 H (98-107) mmol/L Carbon Dioxide 15 L (22-30) mmol/L BUN 56 H (7-17) mg/dL Creatinine 2.52 H (0.52-1.04) mg/dL Glucose 121 H (74-99) mg/dL POC Glucose (mg/dL) 159 H 160 H (70-110) mg/dL Calcium 7.3 L (8.4-10.2) mg/dL
[2023-02-14 17:09] LABS: Glucose,Whole Blood 136 mg/dL (70-110)
[2023-02-14 20:13] LABS: Glucose,Whole Blood 122 mg/dL (70-110)
[2023-02-14] MEDS: Mirabegron [Myrbetriq] 25 MG Tab.Er.24h PO SCH (20:38)
[2023-02-14] MEDS: MONTELUKAST 10 MG TAB PO SCH (20:40)
[2023-02-14 20:47] VITALS: RESP 16
[2023-02-15] MEDS: LEVOTHYROXINE 75 MCG TAB PO SCH (06:15)
[2023-02-15 07:42] LABS: Glucose,Whole Blood 99 mg/dL (70-110)
[2023-02-15] MEDS: SYMBICORT 80-4.5 MCG INHALER INHALATION SCH ×2 (07:45→20:56)
[2023-02-15] MEDS: IPRATROPIUM-ALBUTEROL 3 ML NEB INHALATION SCH ×3 (07:45→20:57)
[2023-02-15 09:25] LABS: BUN/Creat Ratio 18.38 Ratio (12.00-20.00); Blood Urea Nitrogen 53.3 mg/dL (9.0-27.0); Carbon Dioxide 19.3 mmol/L (21.6-31.8); Chloride 104 mmol/L (96-109); Glucose 120 mg/dL (70-110); Potassium 3.8 mmol/L (3.5-5.5); Sodium 138 mmol/L (135-145)
[2023-02-15] MEDS: HEPARIN SODIUM,PORCINE 5,000 UNIT/ML 1 ML VIAL SQ SCH ×2 (09:34→21:12)
[2023-02-15] MEDS: PANTOPRAZOLE 40 MG/10 ML VIAL IVP SCH ×2 (09:34→21:12)
[2023-02-15] MEDS: FLUoxetine HCL 20 MG CAP PO SCH (09:35)
[2023-02-15] MEDS: METHENAMINE HIPPURATE 1 GM PO SCH ×2 (09:35→21:13)
[2023-02-15] MEDS: DOCUSATE 100 MG CAP PO SCH (09:35)
[2023-02-15] MEDS: SEVELAMER 800 MG TAB PO SCH ×3 (09:35→17:00)
[2023-02-15] MEDS: LORATADINE 10 MG TAB PO SCH (09:35)
[2023-02-15] MEDS: SODIUM BICARBONATE TAB 650 MG TAB PO SCH ×3 (09:35→21:12)
[2023-02-15] MEDS: methylPREDNISolone SOD SUCCI 40 MG/ML 1 ML VIAL IV SCH (09:35)
[2023-02-15] MEDS ORDERED: MIDODRINE 5 MG TAB PO PRN (10:34)
[2023-02-15] MEDS: DEXTROSE 5% IN WATER 1,000 ML with SODIUM BICARB (1 MEQ/ML) 150 ML IV SCH (11:58)
[2023-02-15 12:07] LABS: Glucose,Whole Blood 104 mg/dL (70-110)
--- NOTE | 2023-02-15 12:25 | P.PN ---
Subjective Patient is seen for f/u for CKD and PRIYANKA. Renal function had improved after IV hydration. Creatinine increased to 2.9 today from 2.5 yesterday. Patient did get 1 dose of IV Lasix yesterday. She remains on IV bicarb at 50 mL an hour. Overall feeling better today. Objective - Vital Signs Vital signs: Vital Signs Temp 97.7 F 02/15/23 07:40 Pulse 85 02/15/23 11:38 Resp 16 02/15/23 07:40 BP 127/75 02/15/23 07:40 Pulse Ox 96 02/15/23 07:40 FiO2 Intake & Output 02/14/23 02/15/23 02/15/23 18:59 06:59 18:59 Intake Total 540 Output Total 1250 Balance -710 Weight 48.534 kg Intake: Oral 540 Output: Urine 1250 Other: Voiding Method Toilet Toilet # Voids 1 - Exam Patient is awake Comfortable Lungs are clear CVS S1 and S2 Abdomen is soft Extremities chronic edema LINE [employer]IDER exam grossly intact - Labs CBC & Chem 7: 02/13/23 06:02 02/15/23 04:24 Labs: Abnormal Lab Results - Last 24 Hours (Table) 02/14/23 02/14/23 02/14/23 Range/Units 13:20 17:08 20:10 Sodium 135 L (137-145) mmol/L Chloride 109 H (98-107) mmol/L Carbon Dioxide 15 L (22-30) mmol/L Anion Gap (4.00-12.00) mmol/L BUN 56 H (7-17) mg/dL Creatinine 2.52 H (0.52-1.04) mg/dL Est GFR (CKD-EPI) (>=60) Glucose 121 H (74-99) mg/dL POC Glucose (mg/dL) 136 H 122 H (70-110) mg/dL Calcium 7.3 L (8.4-10.2) mg/dL 02/15/23 Range/Units 04:24 Sodium (137-145) mmol/L Chloride (98-107) mmol/L Carbon Dioxide 19.3 L (22-30) mmol/L Anion Gap 14.70 H (4.00-12.00) mmol/L BUN 53.3 H (7-17) mg/dL Creatinine 2.9 H (0.52-1.04) mg/dL Est GFR (CKD-EPI) 16 L (>=60) Glucose 120 H (74-99) mg/dL POC Glucose (mg/dL) (70-110) mg/dL Calcium 7.0 L (8.4-10.2) mg/dL Assessment and Plan Assessment: 1 acute kidney injury secondary to ATN. Improving -Baseline creatinine around 2.5-3.0 MG per DL MG per DL. #2 chronic kidney disease stage V secondary to chronic interstitial nephritis and obstructive uropathy. History of left percutaneous nephrolithotomy 2019 and chronic right hydronephrosis. #3 metabolic acidosis secondary to chronic kidney disease #4 anemia with chronic kidney disease #5 right hydronephrosis, chronic. Patient follows with urology as outpatient. No plans for intervention at this time as renal function is improving. 6. Hyperkalemia associated with severe metabolic acidosis and renal failure. Plan: Continue with IV bicarb
--- NOTE | 2023-02-15 16:28 | P.PN ---
Subjective Progress Note Date: 02/15/23 This is a 77-year-old female who was recently admitted with acute on chronic renal failure and kidney function slightly trending down. Potassium was slightly elevated and will give a dose of lokelma. Patient was started on IV steroids along with breathing treatments and patient reports patient had severe reaction to insulin while at a different facility and slipped into a coma. Insulin sliding scale has been ordered here and will discontinue and just monitor blood sugars. IV steroids have been decreased as patient is minimally wheezy. Patient continues to have some dry cough and is maintained on breathing treatments. Patient does have history of COPD with acute exacerbation. Patient on gentle hydration per nephrology and kidney functions are improving and continues to make urine. Patient with significant weakness will have physical therapy evaluate. Patient is currently afebrile with no reports of chest pain or palpitations. Patient reports feeling better and oral intake is slightly improved. Recommend continue with low potassium renal diet. 02/14/2023 Patient is seen and evaluated in follow-up with nephrology following closely. Kidney functions trending down and creatinine is currently 2.52 and potassium improved at 4.0. Continue renal diet with low potassium and will follow up on repeat labs. Nephrology following closely and patient is being started on sodium bicarb drip as well as sodium bicarb tablets and will monitor closely. Patient continues on breathing inhalational treatments along with IV steroids and reports no significant difference in breathing. Patient reports to feeling better and was able to work with physical therapy and did well. Patient plans on returning home and has support at home. Encouraged increased activity as tolerated and continued oral intake. 02/15/2023 Patient seen and evaluated in follow-up this morning currently sitting up in the chair reports to feeling relatively well. Patient tolerating oral intake and is maintained on bicarb tabs along with sodium bicarb drip and will continue. Patient did receive a dose of Lasix yesterday and kidney function slightly elevated at 2.9 today. Patient does have chronic kidney disease and nephrology is following. Patient reports to weakness although able to walk independently up and down the dan with physical therapy. Patient reports multiple episodes upwards of 8 bouts of diarrhea last night and so far has had 2 bouts today. Ordered C. diff to rule out an discussed with patient and nursing staff. Patient reports no abdominal pain and denies nausea and vomiting. Patient is afebrile continues to report some shortness of breath although is feeling better and denies chest pain or palpitations. Patient has been encouraged to increase activity as tolerated. Review of systems: Constitutional: No reports of fatigue, fever, or chills Cardiovascular: No reports of chest pain or palpitations Respiratory: reports of occasional shortness of breath , dry cough GI: No reports of nausea, no reports of vomiting, no diarrhea : No reports of dysuria or retention Neurovascular: reports of generalized weakness All medications have been reviewed PHYSICAL EXAMINATION: GENERAL: The patient is alert and oriented x4, Well developed, thin built, elderly appearing HEENT: Pupils are round and equally reacting to light. EOMI. no scleral icterus. No conjunctival pallor. Normocephalic, atraumatic. No pharyngeal erythema. No thyromegaly. CARDIOVASCULAR: S1 and S2 muffled PULMONARY: diminished breath sounds bilaterally with no wheezing or rhonchi noted. ABDOMEN: soft. Nontender on exam. obese. non-distended, normoactive bowel sounds. No palpable organomegaly. MUSCULOSKELETAL: No joint swelling or deformity. EXTREMITIES: No cyanosis, clubbing, or pedal edema. Lower extremity edema NEUROLOGICAL: Gross neurological examination did not reveal any focal deficits. Diffuse weakness SKIN: No rashes. 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 Kidney function slightly up today although patient did receive a dose of IV Lasix yesterday. Will follow up on repeat labs Encouraged increased activity as tolerated is patient continues to report generalized weakness. Patient worked with physical therapy today and did well, plan will be to return home on discharge Patient reports multiple episodes of loose stools will obtain sample and ordered C. diff to rule out Continue to encourage oral intake and supplements between meals and continue low potassium and low sodium diet Patient continues with the dry cough and denies worsening shortness of breath. Minimal expiratory wheezing and will transition to oral steroids A.m. labs ordered to monitor kidney functions and electrolytes Will discuss further with nephrology treatment plan moving forward as patient is continued on sodium bicarb drip and will follow-up on repeat labs to discuss possible discharge in the next 24-48 hours The impression and plan of care has been dictated by Catherine Rojas, nurse practitioner as directed. Dr. Edmundo MD I have performed a history and examination and MDM of this patient, discussed the same with the dictator, and agree with the dictator's assessment and plan as written ,documented as a scribe. Based on total visit time, I have performed more than 50% of the visit. Any additional findings or plans will be noted. Objective - Vital Signs Vital signs: Vital Signs Temp 98.1 F 02/15/23 14:50 Pulse 90 02/15/23 14:50 Resp 16 02/15/23 14:50 BP 112/74 02/15/23 14:50 Pulse Ox 97 02/15/23 14:50 FiO2 Intake & Output 02/14/23 02/15/23 02/15/23 18:59 06:59 18:59 Intake Total 540 Output Total 1250 Balance -710 Weight 48.534 kg Intake: Oral 540 Output: Urine 1250 Other: Voiding Method Toilet Toilet # Voids 1 - Labs CBC & Chem 7: 02/13/23 06:02 02/15/23 04:24 Labs: Abnormal Lab Results - Last 24 Hours (Table) 02/14/23 02/14/23 02/15/23 Range/Units 17:08 20:10 04:24 Carbon Dioxide 19.3 L (21.6-31.8) mmol/L Anion Gap 14.70 H (4.00-12.00) mmol/L BUN 53.3 H (9.0-27.0) mg/dL Creatinine 2.9 H (0.6-1.5) mg/dL Est GFR (CKD-EPI) 16 L (>=60) Glucose 120 H (70-110) mg/dL POC Glucose (mg/dL) 136 H 122 H (70-110) mg/dL Calcium 7.0 L (8.7-10.3) mg/dL
[2023-02-15 17:38] LABS: Glucose,Whole Blood 110 mg/dL (70-110)
[2023-02-15 20:40] LABS: Glucose,Whole Blood 109 mg/dL (70-110)
[2023-02-15] MEDS: MONTELUKAST 10 MG TAB PO SCH (21:12)
[2023-02-15] MEDS: Mirabegron [Myrbetriq] 25 MG Tab.Er.24h PO SCH (21:13)
[2023-02-16] MEDS: LEVOTHYROXINE 75 MCG TAB PO SCH (05:40)
[2023-02-16 07:03] LABS: Glucose,Whole Blood 105 mg/dL (70-110)
[2023-02-16] MEDS: SEVELAMER 800 MG TAB PO SCH ×2 (08:09→13:06)
[2023-02-16] MEDS: SODIUM BICARBONATE TAB 650 MG TAB PO SCH (08:09)
[2023-02-16] MEDS: IPRATROPIUM-ALBUTEROL 3 ML NEB INHALATION SCH ×2 (08:24→12:05)
[2023-02-16] MEDS: SYMBICORT 80-4.5 MCG INHALER INHALATION SCH (08:24)
[2023-02-16] MEDS ORDERED: predniSONE 10 MG TAB PO SCH (09:00)
[2023-02-16 09:08] LABS: BUN/Creat Ratio 19.89 Ratio (12.00-20.00); Blood Urea Nitrogen 53.7 mg/dL (9.0-27.0); Calcium 6.9 mg/dL (8.7-10.3); Carbon Dioxide 22.1 mmol/L (21.6-31.8); Chloride 104 mmol/L (96-109); Glucose 104 mg/dL (70-110); Potassium 3.6 mmol/L (3.5-5.5); Sodium 140 mmol/L (135-145)
[2023-02-16] MEDS: HEPARIN SODIUM,PORCINE 5,000 UNIT/ML 1 ML VIAL SQ SCH (10:26)
[2023-02-16] MEDS: PANTOPRAZOLE 40 MG/10 ML VIAL IVP SCH (10:26)
[2023-02-16] MEDS: LORATADINE 10 MG TAB PO SCH (10:26)
[2023-02-16] MEDS: FLUoxetine HCL 20 MG CAP PO SCH (10:26)
[2023-02-16] MEDS: METHENAMINE HIPPURATE 1 GM PO SCH (10:27)
[2023-02-16] MEDS: DEXTROSE 5% IN WATER 1,000 ML with SODIUM BICARB (1 MEQ/ML) 150 ML IV SCH (10:44)
--- NOTE | 2023-02-16 11:12 | P.PN ---
Subjective Patient is seen for f/u for CKD and PRIYANKA. Renal function had improved after IV hydration. Creatinine back down to 2.7 mg/dL. She remains on IV bicarb at 50 mL an hour. Overall feeling better today. Objective - Vital Signs Vital signs: Vital Signs Temp 98.0 F 02/16/23 07:03 Pulse 80 02/16/23 08:40 Resp 16 02/16/23 07:03 BP 101/51 02/16/23 07:03 Pulse Ox 96 02/16/23 08:29 FiO2 Intake & Output 02/15/23 02/16/23 02/16/23 18:59 06:59 18:59 Intake Total 1070 Balance 1070 Intake: Intake, IV Titration 600 Amount Dextrose 5% in Water 1, 600 000 ml @ 50 mls/hr IV . Q23H CHANEL with Sodium Bicarb (1 Meq/ml) 150 ml Rx#:[id number] Oral 470 Other: Voiding Method Toilet # Voids 2 # Bowel Movements 2 - Exam Patient is awake Comfortable Lungs are clear CVS S1 and S2 Abdomen is soft Extremities chronic edema THREE DIMENSIONAL MAP MODELER exam grossly intact - Labs CBC & Chem 7: 02/13/23 06:02 02/16/23 05:52 Labs: Abnormal Lab Results - Last 24 Hours (Table) 02/16/23 Range/Units 05:52 Anion Gap 13.90 H (4.00-12.00) mmol/L BUN 53.7 H (9.0-27.0) mg/dL Creatinine 2.7 H (0.6-1.5) mg/dL Est GFR (CKD-EPI) 18 L (>=60) Calcium 6.9 L (8.7-10.3) mg/dL Assessment and Plan Assessment: 1 acute kidney injury secondary to ATN. Improving -Baseline creatinine around 2.5-3.0 MG per DL MG per DL. #2 chronic kidney disease stage V secondary to chronic interstitial nephritis and obstructive uropathy. History of left percutaneous nephrolithotomy 2018 and chronic right hydronephrosis. #3 metabolic acidosis secondary to chronic kidney disease #4 anemia with chronic kidney disease #5 right hydronephrosis, chronic. Patient follows with urology as outpatient. No plans for intervention at this time as renal function is improving. 6. Hyperkalemia associated with severe metabolic acidosis and renal failure. Plan: DC IV bicarb Patient can resume home dose of diuretics but decrease to every other day post discharge. Follow-up as outpatient in 1-2 weeks. Patient is encouraged to maintain good oral protein intake Maintain salt restriction. Increase activity as tolerated
[2023-02-16 11:52] LABS: Glucose,Whole Blood 89 mg/dL (70-110)
[2023-02-16 15:42] VITALS: BP 131/74; PULSE 81; TEMP 97.8
--- NOTE | 2023-02-18 07:23 | P.DS ---
Providers Date of admission: 02/07/23 13:43 Expected date of discharge: 02/16/23 Attending physician: Rg Centeno MD Consults: 02/07/23 13:43 Consult Physician Routine Consulting Provider: Augustus Pace Consult Reason/Comments: arik Do you want consulting provider notified?: Yes 02/09/23 10:25 Consult Physician Routine Consulting Provider: Kana Uribe Consult Reason/Comments: hydronephrosis, acute on chronic renal failure Do you want consulting provider notified?: Yes Primary care physician: Bienvenido Mykel [facility] Hospital Course: Final diagnosis Acute on chronic kidney disease with acute kidney injury secondary to acute tubular necrosis Chronic kidney disease stage IV secondary to chronic interstitial nephritis and obstructive uropathy, was on hemodialysis previously Chronic obstructive pulmonary disease with history of asthma as well, acute exacerbation of COPD Diarrhea, C. diff ruled out, resolved Chronic right hydronephrosis per urology History of degenerative joint disease History of bariatric surgery GI prophylaxis DVT prophylaxis Full code Discharge disposition Patient is being discharged in a stable condition with guarded prognosis to home. Patient will follow-up with Dr. Hogue in the outpatient setting upon discharge. Patient is to continue with sodium bicarb tablets as well as Bumex every other day and close outpatient follow-up with nephrology as scheduled. Total time taken is greater than 35 minutes. Hospital course This is a 77-year-old female who was recently admitted with acute kidney injury with acute on chronic kidney disease been closely monitored. Nephrology following patient was placed on bicarb drip showing some improvements along with gentle hydration and slowly improved. Patient with weakness evaluated by physical therapy doing well be going home. Patient does have history of dialysis in the past and reports is refusing any further. Patient continues to make urine and showing some improvements in kidney functions are currently stable and will follow-up with repeat outpatient follow-up with nephrology. Patient has been cleared by nephrology for discharge today. Please refer to nephrology note for further HPI. Patient has been instructed to follow-up with primary care provider this week. Patient also to continue with Bumex although only every other day. Continue with Winston wraps to lower extremities bilaterally and elevating while at rest. Currently no reports of chest pain, shortness of breath, or palpitations. Patient is afebrile. No reports of nausea or vomiting and patient is tolerating diet. Patient will be discharged home today. Physical exam: Gen: This is a 69-year-old female who is awake, alert and oriented 3, thin built, elderly appearing HEENT: Head is atraumatic, normocephalic. Pupils equal, round. Sclerae is anicteric. NECK: Supple. No JVD. No lymphadenopathy. No thyromegaly. LUNGS: Clear to auscultation. No wheezes or rhonchi. No intercostal retractions. HEART: Regular rate and rhythm. No murmur. ABDOMEN: Soft. Bowel sounds are present. No masses. No tenderness. EXTREMITIES: No pedal edema. No calf tenderness. Bilateral lower extremity chronic edema noted NEUROLOGICAL: Patient is awake, alert and oriented x3. Cranial nerves 2 through 12 are grossly intact. Please refer to medication reconciliation sheet for a list of medications. The impression and plan of care has been dictated by Catherine Rojas, Nurse Practitioner as directed. Dr. Edmundo MD I have performed a history and examination and MDM of this patient, discussed the same with the dictator, and agree with the dictator's assessment and plan as written ,documented as a scribe. Based on total visit time, I have performed more than 50% of the visit. Patient Condition at Discharge: Fair Plan - Discharge Summary Discharge Rx Participant: No New Discharge Prescriptions: New Midodrine [ProAmatine] 5 mg PO BID PRN tab PRN Reason: LOW BLOOD PRESSURE Ipratropium-Albuterol Nebulize [Duoneb 0.5 mg-3 mg/3 ml Soln] 3 ml INHALATION RT-TID #100 each Ipratropium-Albuterol Nebulize [Duoneb 0.5 mg-3 mg/3 ml Soln] 3 ml INHALATION RT-TID PRN each PRN Reason: Shortness Of Breath Or Wheezing predniSONE 30 mg PO DAILY #18 tab Sevelamer [Renvela] 800 mg PO TID-W/MEALS #90 tab Continue Montelukast [Singulair] 10 mg PO HS FLUoxetine HCL [PROzac] 20 mg PO DAILY Omeprazole 40 mg PO AC-BID Ergocalciferol (Vitamin D2) [Vitamin D2] 50,000 unit PO MOWEFR Sodium Bicarbonate Tab 1,950 mg PO TID traMADol HCL [Ultram] 50 mg PO Q6H PRN PRN Reason: Pain Magnesium Chloride [Mag64] 64 mg PO DAILY Loratadine 10 mg PO DAILY Methenamine Hippurate 1 gm PO BID Mirabegron [Myrbetriq] 25 mg PO DAILY Fluticasone Propion/Salmeterol [Wixela 250-50 Inhub] 1 puff INHALATION RT-BID Benzonatate [Tessalon Perle] 200 mg PO TID PRN PRN Reason: Cough Levothyroxine Sodium [Synthroid] 150 mcg PO DAILY calcitrioL [Calcitriol] 1 mcg PO BID Potassium Chloride [Klor-Con 8] 8 meq PO DAILY Albuterol Inhaler [Ventolin Hfa Inhaler] 2 puff INHALATION RT-Q6H PRN PRN Reason: Shortness Of Breath Docusate [Colace] 200 mg PO BID Changed Bumetanide [BUMEX] 1 mg PO Q48H #0 Discontinued Calcium Acetate [Phoslo] 1,334 mg PO TID-W/MEALS metroNIDAZOLE 250 mg PO DAILY Midodrine HCl [ProAmantine] 2.5 mg PO BID PRN PRN Reason: LOW BLOOD PRESSURE Calcium Acetate [Phoslo] 667 mg PO TID PRN PRN Reason: SNACKS Discharge Medication List FLUoxetine HCL [PROzac] 20 mg PO DAILY 08/23/18 [History] Montelukast [Singulair] 10 mg PO HS 08/23/18 [History] Omeprazole 40 mg PO AC-BID 11/19/18 [History] Ergocalciferol (Vitamin D2) [Vitamin D2] 50,000 unit PO MOWEFR 01/31/19 [History] Sodium Bicarbonate Tab 1,950 mg PO TID 07/22/19 [History] traMADol HCL [Ultram] 50 mg PO Q6H PRN 07/22/19 [History] Loratadine 10 mg PO DAILY 12/06/19 [History] Magnesium Chloride [Mag64] 64 mg PO DAILY 12/06/19 [History] Methenamine Hippurate 1 gm PO BID 01/25/21 [History] Mirabegron [Myrbetriq] 25 mg PO DAILY 01/25/21 [History] Albuterol Inhaler [Ventolin Hfa Inhaler] 2 puff INHALATION RT-Q6H PRN 02/07/23 [History] Benzonatate [Tessalon Perle] 200 mg PO TID PRN 02/07/23 [History] Docusate [Colace] 200 mg PO BID 02/07/23 [History] Fluticasone Propion/Salmeterol [Wixela 250-50 Inhub] 1 puff INHALATION RT-BID 02/07/23 [History] Levothyroxine Sodium [Synthroid] 150 mcg PO DAILY 02/07/23 [History] Potassium Chloride [Klor-Con 8] 8 meq PO DAILY 02/07/23 [History] calcitrioL [Calcitriol] 1 mcg PO BID 02/07/23 [History] Bumetanide [BUMEX] 1 mg PO Q48H #0 02/16/23 [Rx] Ipratropium-Albuterol Nebulize [Duoneb 0.5 mg-3 mg/3 ml Soln] 3 ml INHALATION RT-TID #100 each 02/16/23 [Rx] Ipratropium-Albuterol Nebulize [Duoneb 0.5 mg-3 mg/3 ml Soln] 3 ml INHALATION RT-TID PRN each 02/16/23 [Rx] Midodrine [ProAmatine] 5 mg PO BID PRN tab 02/16/23 [Rx] Sevelamer [Renvela] 800 mg PO TID-W/MEALS #90 tab 02/16/23 [Rx] predniSONE 30 mg PO DAILY #18 tab 02/16/23 [Rx] Follow up Appointment(s)/Referral(s): Abbey Wheeler MD [STAFF PHYSICIAN] - 03/07/23 11:40 am Bienvenido Hogue MD [Primary Care Provider] - 02/20/23 2:30 pm (appointment w/ Nicole BO) Ambulatory/Diagnostic Orders: Basic Metabolic Panel [LAB.AMB] Time Frame: 3 Days, Location: None Selected Patient Instructions/Handouts: Prednisone (By mouth), Ipratropium/Albuterol (By breathing), Sevelamer (By mouth) Activity/Diet/Wound Care/Special Instructions: Activity Limited until follow-up Follow-up with primary care provider on discharge Follow-up with nephrology outpatient in one week Continue taking medications as prescribed Continue with diuretic Bumex every other day and elevate lower extremities while at rest Discharge Disposition: HOME SELF-CARE
== END 2023-02-16 15:50 | disposition home or self-care (01) | DRG 682 ==
LOC: EC 11:32 → 5NMEDONC 13:43
PROVIDERS: ADMIT Internal Medicine; ATTEND Internal Medicine
DX: N17.0 Acute kidney failure with tubular necrosis (principal); E43 Unspecified severe protein-calorie malnutrition; J96.10 Chronic respiratory failure, unspecified whether with hypoxia or hypercapnia; I12.0 Hypertensive chronic kidney disease with stage 5 chronic kidney disease or end stage renal disease; J44.1 Chronic obstructive pulmonary disease with (acute) exacerbation; E87.20 Acidosis, unspecified; N11.1 Chronic obstructive pyelonephritis; Z68.1 Body mass index [BMI] 19.9 or less, adult; N18.5 Chronic kidney disease, stage 5; D63.1 Anemia in chronic kidney disease; M19.90 Unspecified osteoarthritis, unspecified site; M81.0 Age-related osteoporosis without current pathological fracture; E87.5 Hyperkalemia; R19.7 Diarrhea, unspecified; E86.1 Hypovolemia; T50.2X5A Adverse effect of carbonic-anhydrase inhibitors, benzothiadiazides and other diuretics, initial encounter; M89.8X9 Other specified disorders of bone, unspecified site; I89.0 Lymphedema, not elsewhere classified; N32.81 Overactive bladder; Z99.81 Dependence on supplemental oxygen; Z98.84 Bariatric surgery status; Z79.51 Long term (current) use of inhaled steroids; Z79.890 Hormone replacement therapy; Z86.19 Personal history of other infectious and parasitic diseases; Z87.440 Personal history of urinary (tract) infections; Z79.899 Other long term (current) drug therapy; Z88.2 Allergy status to sulfonamides; Z88.1 Allergy status to other antibiotic agents; Z88.5 Allergy status to narcotic agent; Z91.048 Other nonmedicinal substance allergy status; Z85.828 Personal history of other malignant neoplasm of skin
CPT/HCPCS: 36415; 71045; 76770; 80048; 80053; 81001; 82728; 83036; 83540; 83550; 83735; 84100; 84132; 84484; 85025; 85379; 85652; 86140; 87324; 87635; 93005; 94640; 94760; 99285

== ENCOUNTER → 2023-04-20 | Outpatient (CLI) | payer MEDICARE ==
--- NOTE | 2023-05-01 00:50 | MR ---
EXAMINATION TYPE: MR angio head wo con DATE OF EXAM: 04/20/2023 COMPARISON: 07/24/2019 HISTORY: 77-year-old female I67.1 CEREBRAL ANEURYSM, NONRUPTURED, follow up , known aneurysm TECHNIQUE: High-resolution 3-D [id number] imaging of the [place]. 3-D rotational reconst ructions generated on a dedicated workstation. FINDINGS: Redemonstrated 2 mm saccular aneurysm projecting medially from the cavernous segment right ICA. Tiny 1 mm saccular aneurysm projecting from the lateral wall of the cavernous segment left ICA is unc hanged. Possible 2 mm saccular aneurysm projecting inferiorly from the anterior communicating artery is uncha nged. The fusiform dilatation previously noted at the right MCA trifurcation is not as well seen on the pre sent study. The vertebral and basilar arteries are patent. There is persistent origin to the bilateral posterior cerebral arteries. No large vessel intracranial arterial occlusion or significant stenosis is seen. IMPRESSION: 1. Unchanged 2 mm saccular aneurysm projecting medially from the cavernous segment right ICA. 2. Unchanged tiny 1 mm saccular aneurysm projecting laterally from the cavernous segment left ICA. 3. Unchanged possible 2 mm saccular aneurysm projecting inferiorly from the ACOM. 4. The previous fusiform dilatation of the right MCA trifurcation is not as well seen on the present study. 5. Anatomic variation with persistent origin to the bilateral garage laborer.
== END | disposition home or self-care (01) ==
LOC: RADMRIMAIN 15:28
PROVIDERS: ATTEND Internal Medicine Geriatric Medicine
DX: I67.1 Cerebral aneurysm, nonruptured (principal)
CPT/HCPCS: 70544

== ENCOUNTER → 2023-09-01 | Outpatient (CLI) | payer MEDICARE ==
--- NOTE | 2023-09-04 08:30 | MM ---
Reason for Exam: Screening (asymptomatic). Last mammogram was performed 2 year(s) and 2 month(s) ago. Patient History: Menarche at age 12. First Full-Term at age 21. Left ovary removed at age 59. Right ovary removed at age 59. Hysterectomy at age 59. Postmenopausal. Estrogen for 1 year from age 48 until age 49. Mother had breast cancer, age 60. Risk Values: Cristal 5 year model risk: 3.2%. NCI Lifetime model risk: 5.4%. Prior Study Comparison: 01/16/2013 Bilateral Screening Mammogram, [facility]. 03/20/2017 Bilateral Screening Mammogram, [facility]. 06/16/2021 Bilateral Screening Mammogram, [facility]. Tissue Density: The breasts are heterogeneously dense, which may obscure small masses. Findings: Analyzed By CAD. The pattern is symmetrical. Benign vascular calcifications present bilaterally No suspicious groups of microcalcifications, spiculated or lobular masses, architectural distortion or other secondary signs of malignancy are mammographically apparent. Overall Assessment: Benign, BI-RAD 2 Management: Screening Mammogram of both breasts in 1 year. A negative mammogram report should not preclude additional follow up of suspicious palpable abnormalities. Patient should continue monthly self breast exam. A clinical breast exam by your physician is recommended on an annual basis and results should be correlated with mammographic findings. Electronically signed and approved by: Hayder Garcia D.O. Radiologis
== END | disposition home or self-care (01) ==
LOC: RADMAMWWP 11:47
PROVIDERS: ATTEND Family Medicine
DX: Z12.31 Encounter for screening mammogram for malignant neoplasm of breast (principal); Z78.0 Asymptomatic menopausal state; Z80.3 Family history of malignant neoplasm of breast
CPT/HCPCS: 77063; 77067

== ENCOUNTER → 2023-09-05 | Outpatient (CLI) | payer MEDICARE ==
--- NOTE | 2023-09-05 14:04 | BD ---
EXAMINATION TYPE: Axial Bone Density DATE OF EXAM: 09/05/2023 CLINICAL HISTORY: 78 years old Female. ICD-10 CODE: M81.0 AGE RELATED OSTEOPOROSIS Height: Weight: FRAX RISK QUESTIONS: Alcohol (3 or more units per day): no Family History (Parent hip fracture): no Glucocorticoids (More than 3mos): yes (Ex: prednisone, prednisolone, methylprednisolone, dexamethasone, and hydrocortisone). History of Fracture in Adulthood: yes Secondary Osteoporosis: 1. Type 1 Diabetes: no 2. Hyperthyroidism: no 3. Menopause before 45: no 4. Malnutrition: no 5. Chronic liver disease: no Rheumatoid Arthritis: no Current Tobacco Use: no RISK FACTORS HISTORY OF: History of Wrist Fracture: bilateral wrist Surgery to Spine/Hip(right/left)/Wrist (right/left): no MEDICATIONS: Thyroid Medications: synthroid How Long: long time Osteoporosis Medications: prolia How Long: long time EXAM MEASUREMENTS: Bone mineral densitometry was performed using the [employer]It System. Bone mineral density as measured about the Lumbar spine is: ----- L1-L4(G/cm2): 0.862 T Score Values are as follows: ----- L1: -2.9 ----- L2: -3.3 ----- L3: -2.7 ----- L4: -1.9 ----- L1-L4: -2.7 Z Score Values are as follows: ----- L1: -0.7 ----- L2: -1.1 ----- L3: -0.5 ----- L4: 0.3 ----- L1-L4: -0.5 Bone mineral density has: increased 13.1 % since study of: 06.23.2021 Bone mineral density about the R hip (g/cm2): 0.734 Bone mineral density about the L hip (g/cm2): 0.753 T Score values are as follows: -----R Neck: -2.4 -----L Neck: -2.7 -----R Total: -2.2 -----L Total: -2.0 Z Score values are as follows: -----R Neck: -0.1 -----L Neck: -0.3 -----R Total: 0.0 -----L Total: 0.2 Bone mineral density has: increased 12.4 % since study of: 06.23.2021 FRAX%s: The graph provided illustrates a 37.7% chance for a major osteoporotic fx and a 15.8% chance for the hips probability for fx in 10 years time. IMPRESSION: Osteopenia (T Score between -2.5 and -1). There is slightly increased risk of fracture and the patient may be considered for treatment. Re-Screen 2-5 years. NOTE: T-SCORE=SD OF THE YOUNG ADULT MEAN.
== END | disposition home or self-care (01) ==
LOC: RADBDWWP 11:23
PROVIDERS: ATTEND Internal Medicine Geriatric Medicine
DX: M81.0 Age-related osteoporosis without current pathological fracture (principal); M85.89 Other specified disorders of bone density and structure, multiple sites
CPT/HCPCS: 77080

== ENCOUNTER 2023-10-16 17:49 | Inpatient (IN) | payer MEDICARE ==
--- NOTE | 2023-10-16 20:08 | ED ---
URI HPI - General Source: patient, RN notes reviewed Mode of arrival: wheelchair Limitations: no limitations <Glendy Low - Last Filed: 10/16/23 20:07> <Penny Tan - Last Filed: 10/19/23 05:30> - General Chief Complaint: Upper Respiratory Infection Stated Complaint: Cough,Vomiting Time Seen by Provider: 10/16/23 20:07 - History of Present Illness Initial Comments: Quick note: 78-year-old female presented to the ER with chief complaint of congestion and cough. She states this been going on for months. She endorses chills and fevers especially at night. She believes she is dehydrated. She also reports diarrhea. (Glendy Low) 78-year-old female presents to the emergency department reporting cough, congestion, worsening lower extremity edema. States that she has been very weak and having difficulty caring for herself. Patient was on dialysis. States that she went off a few years ago because she did not want to go through with it. She takes diuretics and continues to make urine. Has noted the worsening lower extremity edema throughout the past week. She was attempting to get laboratory studies done for her nephrology appointment tomorrow when it was recommended that the patient come to the emergency department because she was complaining of shortness of breath. She does admit to a history of asthma. She denies any fevers but does endorse chills. No other alleviating, precipitating modifying factors (Penny Tan) - Related Data Home Medications Medication Instructions Recorded Confirmed FLUoxetine HCL [PROzac] 20 mg PO BID 08/23/18 10/17/23 Montelukast [Singulair] 10 mg PO HS 08/23/18 10/17/23 Omeprazole 40 mg PO AC-BID 11/19/18 10/17/23 Sodium Bicarbonate Tab 1,950 mg PO TID 07/22/19 10/17/23 traMADol HCL [Ultram] 50 mg PO Q8H PRN 07/22/19 10/17/23 Loratadine 10 mg PO DAILY 12/06/19 10/17/23 Magnesium Chloride [Mag64] 64 mg PO DAILY 12/06/19 10/17/23 Methenamine Hippurate 1 gm PO BID 01/25/21 10/17/23 Mirabegron [Myrbetriq] 25 mg PO DAILY 01/25/21 10/17/23 Albuterol Inhaler [Ventolin Hfa 2 puff INHALATION RT-Q6H PRN 02/07/23 10/17/23 Inhaler] Benzonatate [Tessalon Perle] 200 mg PO TID PRN 02/07/23 10/17/23 Docusate [Colace] 200 mg PO BID 02/07/23 10/17/23 Levothyroxine Sodium [Synthroid] 150 mcg PO DAILY 02/07/23 10/17/23 Potassium Chloride [Klor-Con 8] 8 meq PO DAILY 02/07/23 10/17/23 calcitrioL 1.5 mcg PO BID 02/07/23 10/17/23 Albuterol Nebulized [Ventolin 2.5 mg INHALATION RT-Q6H PRN 10/17/23 10/17/23 Nebulized] Ascorbic Acid [Vitamin C] 1,000 mg PO DAILY 10/17/23 10/17/23 Bumetanide [BUMEX] 1 mg PO DAILY 10/17/23 10/17/23 Calcium Acetate [Phoslo] 1,334 mg PO BID PRN 10/17/23 10/17/23 Calcium Acetate [Phoslo] 2,004 mg PO AC-TID 10/17/23 10/17/23 Ergocalciferol [Vitamin D2 (1250 1,250 mcg PO DIRECTED 10/17/23 10/17/23 Mcg = 57255 Iu)] Gabapentin [Neurontin] 300 mg PO BID 10/17/23 10/17/23 Midodrine [ProAmatine] 5 mg PO DAILY PRN 10/17/23 10/17/23 Prolia (Unknown Dose) 60 mg IM Q180D 10/17/23 10/17/23 Sevelamer [Renvela] 800 mg PO AC-TID 10/17/23 10/17/23 Turmeric Root Extract [Turmeric] 500 mg PO DAILY 10/17/23 10/17/23 metroNIDAZOLE [Flagyl] 250 mg PO DAILY 10/17/23 10/17/23 Allergies Allergy/AdvReac Type Severity Reaction Status Date / Time adhesive tape Allergy Rash/Hives Verified 10/17/23 08:41 Sulfa (Sulfonamide Allergy Itching Verified 10/17/23 08:41 Antibiotics) codeine AdvReac Nausea Verified 10/17/23 08:41 epoetin beta [From Mircera] AdvReac Unknown Verified 10/17/23 08:41 tetracycline AdvReac Nausea & Verified 10/17/23 08:41 Vomiting Review of Systems ROS Other: All systems not noted in ROS Statement are negative. <Glendy Low - Last Filed: 10/16/23 20:07> ROS Other: All systems not noted in ROS Statement are negative. <Penny Tan - Last Filed: 10/19/23 05:30> ROS Statement: Those systems with pertinent positive or pertinent negative responses have been documented in the HPI. Past Medical History Past Medical History: Asthma, Cancer, COPD, Osteoarthritis (OA), Renal Disease, Thyroid Disorder Additional Past Medical History / Comment(s): kidney stones and UTI,steroid injection October 2018 hx lymphedema, hx pulmonary fibrosis, hx graves,hx rt foot torn ligaments,hx kidney stones, hx osteoporosis,hypotension, chronic respiratory failure on 2 L nasal cannula at night & prn, vitamin D deficiency, hypocalcemia. SKIN CANCER REMOVED FROM BRIDGE OF NOSE., PMR History of Any Multi-Drug Resistant Organisms: CRE Date of last positivie culture/infection: 10/16/18 MDRO-CRE PER [facility] NOT [facility] MDRO Source:: Urine Past Surgical History: Bariatric Surgery Additional Past Surgical History / Comment(s): hx bariatric surgery-Kye En Y,lung biopsy,radioactive iodine-tx thyroid,rectal and bladder suspensions,vaginal surgery as a child,partha carpel tunnel,rt knee meniscus repair,D&C x3, left arm fistula 02/08/19 (not working) Past Anesthesia/Blood Transfusion Reactions: Previous Problems w/ Anesthesia, Postoperative Nausea & Vomiting (PONV) Additional Past Anesthesia/Blood Transfusion Reaction / Comment(s): decrease bp with anesthesia,no problems with prior blood transfusion Past Psychological History: No Psychological Hx Reported Smoking Status: Never smoker - Past Family History Father Family Medical History: Pulmonary Embolus Additional Family Medical History / Comment(s): . Mother Family Medical History: Cancer Additional Family Medical History / Comment(s): . Sister(s) Family Medical History: Cancer Additional Family Medical History / Comment(s): . Daughter(s) Additional Family Medical History / Comment(s): lymphedema in legs Brother(s) Family Medical History: Cancer Additional Family Medical History / Comment(s): skin cancer <Glendy Low - Last Filed: 10/16/23 20:07> General Exam Limitations: no limitations <Glendy Low - Last Filed: 10/16/23 20:07> General appearance: alert, in no apparent distress Head exam: Present: atraumatic, normocephalic, normal inspection Eye exam: Present: normal appearance, PERRL, EOMI. Absent: scleral icterus, conjunctival injection, periorbital swelling ENT exam: Present: normal exam, mucous membranes moist Neck exam: Present: normal inspection. Absent: tenderness, meningismus, lymphadenopathy Respiratory exam: Present: wheezes. Absent: respiratory distress, rales, rhonchi, stridor Cardiovascular Exam: Present: regular rate, normal rhythm, normal heart sounds. Absent: systolic murmur, diastolic murmur, rubs, gallop, clicks GI/Abdominal exam: Present: soft, normal bowel sounds. Absent: distended, tenderness, guarding, rebound, rigid Extremities exam: Present: full ROM, normal capillary refill, pedal edema (Significant, 4+). Absent: tenderness, joint swelling, calf tenderness Back exam: Present: normal inspection Neurological exam: Present: alert, oriented X3, CN II-XII intact Psychiatric exam: Present: normal affect, normal mood Skin exam: Present: warm, dry, intact, normal color. Absent: rash <Penny Tan - Last Filed: 10/19/23 05:30> - General Exam Comments Initial Comments: Visual Physical Exam Vital signs reviewed General: Well-appearing, nontoxic, no acute distress. Head: Normocephalic, atraumatic Eyes: PERRLA, EOMI ENT: Airway patent Chest: Nonlabored breathing Skin: No visual rash, normal skin tone Neuro: Alert and oriented 3 Musculoskeletal: No gross abnormalities (Glendy Low) Course Vital Signs 10/16/23 10/17/23 10/17/23 18:08 00:44 00:50 Temperature 98.6 F Pulse Rate 83 84 86 Respiratory 18 Rate Blood Pressure 96/61 O2 Sat by Pulse 96 Oximetry 10/17/23 10/17/23 10/17/23 00:53 03:54 05:45 Temperature Pulse Rate 68 67 Respiratory 18 20 18 Rate Blood Pressure 115/64 116/63 O2 Sat by Pulse 95 96 Oximetry 10/17/23 10/17/23 10/17/23 07:00 08:00 08:27 Temperature 97.5 F L Pulse Rate 66 60 Respiratory 18 16 Rate Blood Pressure 112/64 O2 Sat by Pulse 95 Oximetry 10/17/23 08:37 Temperature Pulse Rate 62 Respiratory 18 Rate Blood Pressure O2 Sat by Pulse Oximetry Medical Decision Making <Glendy Low - Last Filed: 10/16/23 20:07> - Lab Data Result diagrams: 10/18/23 03:20 10/18/23 03:20 <Penny Tan - Last Filed: 10/19/23 05:30> - Medical Decision Making I performed the quick note portion of this chart. Electronically signed by Glendy Lwo PA-C (Glendy Low) Was pt. sent in by a medical professional or institution (ANUPAM Roche, MANAGER PACU, urgent care, hospital, or correction...) When possible be specific @ -Patient was sent in from her primary care clinic as she was reporting to shortness of breath Did you speak to anyone other than the patient for history (EMS, parent, family, police, friend...)? What history was obtained from this source @ -No Did you review nursing and triage notes (agree or disagree)? Why? @ -I reviewed and agree with nursing and triage notes Were old charts reviewed (outside hosp., previous admission, EMS record, old EKG, old radiological studies, urgent care reports/EKG's, correction records)? Report findings @ -No old charts were reviewed Differential Diagnosis (chest pain, altered mental status, abdominal pain women, abdominal pain men, vaginal bleeding, weakness, fever, dyspnea, syncope, headache, dizziness, GI bleed, back pain, seizure, CVA, palpatations, mental health, musculoskeletal)? @ -Differential Dyspnea: Coronary syndrome, arrhythmia, tamponade, asthma, COPD, pulmonary embolism, pneumonia, pneumothorax, pulmonary effusion, anaphylaxis, diabetic ketoacidosis, flailed chest, pulmonary contusion, diaphragmatic rupture, anemia, neuromuscular, this is not meant to be an all-inclusive list. EKG interpreted by me (3pts min.). @ -Not done X-rays interpreted by me (1pt min.). @ -Yes and demonstrates no pneumonia CT interpreted by me (1pt min.). @ -None done U/S interpreted by me (1pt. min.). @ -None done What testing was considered but not performed or refused? (CT, X-rays, U/S, labs)? Why? @ -None What meds were considered but not given or refused? Why? @ -None Did you discuss the management of the patient with other professionals (professionals i.e. Dr., PA, MANAGER PACU, lab, RT, psych nurse, geriatric social worker, motor vehicle inspector, teacher, vice squad police officer, skilled nursing case manager)? Give summary @Spoke with Dr. Hogue who will admit the patient Was smoking cessation discussed for >3mins.? @ -No Was critical care preformed (if so, how long)? @ -No Were there social determinants of health that impacted care today? How? (H omelessness, low income, unemployed, alcoholism, drug addiction, transportation, low edu. Level, literacy, decrease access to med. care, prison, rehab)? @ -No Was there de-escalation of care discussed even if they declined (Discuss DNR or withdrawal of care, Hospice)? DNR status @ -No What co-morbidities impacted this encounter? (DM, HTN, Smoking, COPD, CAD, Cancer, CVA, ARF, Chemo, Hep., AIDS, mental health diagnosis, sleep apnea, morbid obesity)? @ -End-stage renal disease, asthma Was patient admitted / discharged? Hospital course, mention meds given and route, prescriptions, significant lab abnormalities, going to OR and other pertinent info. @ -Upon arrival patient was seen and evaluated in room 24. Thorough history and physical exam was performed. Viral swab was obtained. Laboratory studies are conducted. Chest x-ray was performed. Results are discussed with the patient. She does have significant lower extremity edema with increased work of breathing. There is concern for volume overload. I did recommend nephrology consultation. Patient was agreeable to admission. She was given a breathing treatment for which she states did improve her symptoms. Spoke with Dr. Hogue who will admit the patient Undiagnosed new problem with uncertain prognosis? @ -Yes Drug Therapy requiring intensive monitoring for toxicity (Heparin, Nitro, Insulin, Cardizem)? @ -No Were any procedures done? @ -No Diagnosis/symptom? @ -Acute dyspnea, bilateral lower extremity swelling, history of end-stage renal disease Acute, or Chronic, or Acute on Chronic? @ -Acute Uncomplicated (without systemic symptoms) or Complicated (systemic symptoms)? @ -Complicated Side effects of treatment? @ -No Exacerbation, Progression, or Severe Exacerbation? @ -No Poses a threat to life or bodily function? How? (Chest pain, [place], [place], pneumonia, PE, COPD, DKA, ARF, appy, cholecystitis, CVA, Diverticulitis, Homicidal, Suicidal, threat to staff... and all critical care pts) @ -No (Penny Tan) - Lab Data Lab Results 10/16/23 10/16/23 10/16/23 Range/Units 18:14 23:56 23:56 WBC 15.6 H (3.8-10.6) k/uL RBC 2.93 L (3.80-5.40) m/uL Hgb 9.6 L (11.4-16.0) gm/dL Hct 32.5 L (34.0-46.0) % MCV 110.9 H (80.0-100.0) fL MCH 32.7 (25.0-35.0) pg MCHC 29.5 L (31.0-37.0) g/dL RDW 13.9 (11.5-15.5) % Plt Count 217 (150-450) k/uL MPV 8.2 Neutrophils % 81 % Lymphocytes % 10 % Monocytes % 7 % Eosinophils % 1 % Basophils % 0 % Neutrophils # 12.5 H (1.3-7.7) k/uL Lymphocytes # 1.6 (1.0-4.8) k/uL Monocytes # 1.0 (0-1.0) k/uL Eosinophils # 0.1 (0-0.7) k/uL Basophils # 0.1 (0-0.2) k/uL Manual Slide Review Performed Hypochromasia Moderate Macrocytosis Marked A Sodium 132 L (137-145) mmol/L Potassium 4.0 (3.5-5.1) mmol/L Chloride 105 (98-107) mmol/L Carbon Dioxide 16 L (22-30) mmol/L Anion Gap 11 mmol/L BUN 95 H (7-17) mg/dL Creatinine 3.28 H (0.52-1.04) mg/dL Est GFR (CKD-EPI)AfAm 15 (>60 ml/min/1.73 sqM) Est GFR (CKD-EPI)NonAf 13 (>60 ml/min/1.73 sqM) Glucose 81 (74-99) mg/dL POC Glucose (mg/dL) (70-110) mg/dL POC Glu Drier Tender Naphthalene ID Calcium 10.3 H (8.4-10.2) mg/dL Magnesium 2.1 (1.6-2.3) mg/dL Total Bilirubin 0.4 (0.2-1.3) mg/dL AST 27 (14-36) U/L ALT 23 (4-34) U/L Alkaline Phosphatase 65 (38-126) U/L NT-Pro-B Natriuret Pep 2840 pg/mL Total Protein 6.0 L (6.3-8.2) g/dL Albumin 3.4 L (3.5-5.0) g/dL Procalcitonin (0.02-0.09) ng/mL Urine Color Urine Appearance (Clear) Urine pH (5.0-8.0) Ur Specific [place] (1.001-1.035) Urine Protein (Negative) Urine Glucose (UA) (Negative) Urine Ketones (Negative) Urine Blood (Negative) Urine Nitrite (Negative) Urine Bilirubin (Negative) Urine Urobilinogen (<2.0) mg/dL Ur Leukocyte Esterase (Negative) Urine RBC (0-5) /hpf Urine WBC (0-5) /hpf Ur Squamous Epith Cells (0-4) /hpf Urine Bacteria (None) /hpf Urine Mucus (None) /hpf Influenza Type A (PCR) Not Detected (Not Detectd) Influenza Type B (PCR) Not Detected (Not Detectd) RSV (PCR) Not Detected (Not Detectd) SARS-CoV-2 (PCR) Not Detected (Not Detectd) 10/17/23 10/17/23 10/17/23 Range/Units 04:15 11:08 11:08 WBC (3.8-10.6) k/uL RBC (3.80-5.40) m/uL Hgb (11.4-16.0) gm/dL Hct (34.0-46.0) % MCV (80.0-100.0) fL MCH (25.0-35.0) pg MCHC (31.0-37.0) g/dL RDW (11.5-15.5) % Plt Count (150-450) k/uL MPV Neutrophils % % Lymphocytes % % Monocytes % % Eosinophils % % Basophils % % Neutrophils # (1.3-7.7) k/uL Lymphocytes # (1.0-4.8) k/uL Monocytes # (0-1.0) k/uL Eosinophils # (0-0.7) k/uL Basophils # (0-0.2) k/uL Manual Slide Review Hypochromasia Macrocytosis Sodium (137-145) mmol/L Potassium (3.5-5.1) mmol/L Chloride (98-107) mmol/L Carbon Dioxide (22-30) mmol/L Anion Gap mmol/L BUN (7-17) mg/dL Creatinine (0.52-1.04) mg/dL Est GFR (CKD-EPI)AfAm (>60 ml/min/1.73 sqM) Est GFR (CKD-EPI)NonAf (>60 ml/min/1.73 sqM) Glucose (74-99) mg/dL POC Glucose (mg/dL) (70-110) mg/dL POC Glu Drier Tender Naphthalene ID Calcium (8.4-10.2) mg/dL Magnesium (1.6-2.3) mg/dL Total Bilirubin (0.2-1.3) mg/dL AST (14-36) U/L ALT (4-34) U/L Alkaline Phosphatase (38-126) U/L NT-Pro-B Natriuret Pep 2298 H pg/mL Total Protein (6.3-8.2) g/dL Albumin (3.5-5.0) g/dL Procalcitonin 0.39 H (0.02-0.09) ng/mL Urine Color Colorless Urine Appearance Clear (Clear) Urine pH 5.5 (5.0-8.0) Ur Specific [place] 1.010 (1.001-1.035) Urine Protein Negative (Negative) Urine Glucose (UA) Negative (Negative) Urine Ketones Negative (Negative) Urine Blood Negative (Negative) Urine Nitrite Negative (Negative) Urine Bilirubin Negative (Negative) Urine Urobilinogen <2.0 (<2.0) mg/dL Ur Leukocyte Esterase Small H (Negative) Urine RBC 1 (0-5) /hpf Urine WBC 9 H (0-5) /hpf Ur Squamous Epith Cells <1 (0-4) /hpf Urine Bacteria Many H (None) /hpf Urine Mucus Rare H (None) /hpf Influenza Type A (PCR) (Not Detectd) Influenza Type B (PCR) (Not Detectd) RSV (PCR) (Not Detectd) SARS-CoV-2 (PCR) (Not Detectd) 10/17/23 Range/Units 11:37 WBC (3.8-10.6) k/uL RBC (3.80-5.40) m/uL Hgb (11.4-16.0) gm/dL Hct (34.0-46.0) % MCV (80.0-100.0) fL MCH (25.0-35.0) pg MCHC (31.0-37.0) g/dL RDW (11.5-15.5) % Plt Count (150-450) k/uL MPV Neutrophils % % Lymphocytes % % Monocytes % % Eosinophils % % Basophils % % Neutrophils # (1.3-7.7) k/uL Lymphocytes # (1.0-4.8) k/uL Monocytes # (0-1.0) k/uL Eosinophils # (0-0.7) k/uL Basophils # (0-0.2) k/uL Manual Slide Review Hypochromasia Macrocytosis Sodium (137-145) mmol/L Potassium (3.5-5.1) mmol/L Chloride (98-107) mmol/L Carbon Dioxide (22-30) mmol/L Anion Gap mmol/L BUN (7-17) mg/dL Creatinine (0.52-1.04) mg/dL Est GFR (CKD-EPI)AfAm (>60 ml/min/1.73 sqM) Est GFR (CKD-EPI)NonAf (>60 ml/min/1.73 sqM) Glucose (74-99) mg/dL POC Glucose (mg/dL) 127 H (70-110) mg/dL POC Glu Drier Tender Naphthalene ID Yulisa Montanez Calcium (8.4-10.2) mg/dL Magnesium (1.6-2.3) mg/dL Total Bilirubin (0.2-1.3) mg/dL AST (14-36) U/L ALT (4-34) U/L Alkaline Phosphatase (38-126) U/L NT-Pro-B Natriuret Pep pg/mL Total Protein (6.3-8.2) g/dL Albumin (3.5-5.0) g/dL Procalcitonin (0.02-0.09) ng/mL Urine Color Urine Appearance (Clear) Urine pH (5.0-8.0) Ur Specific [place] (1.001-1.035) Urine Protein (Negative) Urine Glucose (UA) (Negative) Urine Ketones (Negative) Urine Blood (Negative) Urine Nitrite (Negative) Urine Bilirubin (Negative) Urine Urobilinogen (<2.0) mg/dL Ur Leukocyte Esterase (Negative) Urine RBC (0-5) /hpf Urine WBC (0-5) /hpf Ur Squamous Epith Cells (0-4) /hpf Urine Bacteria (None) /hpf Urine Mucus (None) /hpf Influenza Type A (PCR) (Not Detectd) Influenza Type B (PCR) (Not Detectd) RSV (PCR) (Not Detectd) SARS-CoV-2 (PCR) (Not Detectd) Disposition <Glendy Low - Last Filed: 10/16/23 20:07> Is patient prescribed a controlled substance at d/c from ED?: No Time of Disposition: 05:40 Decision to Admit Reason: Admit from EC Decision Date: 10/17/23 Decision Time: 05:41 <Penny Tan - Last Filed: 10/19/23 05:30> Clinical Impression: PRIYANKA (acute kidney injury), General weakness, UTI (urinary tract infection), Renal failure, Dyspnea Disposition: ADMITTED IP TO THIS [facility] Condition: Stable
--- NOTE | 2023-10-16 20:14 | XR ---
EXAMINATION TYPE: XR chest 2V DATE OF EXAM: 10/16/2023 7:59 PM CLINICAL INDICATION:Female, 78 years old with history of productive cough; COMPARISON: Chest radiographs from 02/13/2023 TECHNIQUE: XR chest 2V Frontal and lateral views of the chest. FINDINGS: Lungs/Pleura: Prominent interstitial lung markings are seen scattered throughout the lungs with jamie ening of the diaphragm and increased lucency of the lung apices. No evidence of focal consolidation, pneumothorax or pleural effusion. Pulmonary vascularity: Unremarkable. Heart/mediastinum: Cardiomediastinal silhouette is unremarkable. Musculoskeletal: No acute osseous pathology. IMPRESSION: 1. No acute cardiopulmonary disease process. 2. COPD changes.
[2023-10-17] MEDS: IPRATROPIUM-ALBUTEROL 3 ML NEB INHALATION STA (00:43)
[2023-10-17 01:21] LABS: Basophils # (A) 0.1 k/uL (0-0.2); Basophils % (A) 0 %; Eosinophils # (A) 0.1 k/uL (0-0.7); Eosinophils % (A) 1 %; HCT 32.5 % (34.0-46.0); HGB 9.6 gm/dL (11.4-16.0); Hypochromasia Moderate; Lymphocytes # (A) 1.6 k/uL (1.0-4.8); Lymphocytes % (A) 10 %; MCH 32.7 pg (25.0-35.0); MCHC 29.5 g/dL (31.0-37.0); MCV 110.9 fL (80.0-100.0); Macrocytosis Marked; Mean Platelet Volume 8.2; Monocytes % (A) 7 %; Neutrophils # (A) 12.5 k/uL (1.3-7.7); Neutrophils % (A) 81 %; Platelet Count 217 k/uL (150-450); RBC 2.93 m/uL (3.80-5.40); RDW 13.9 % (11.5-15.5); WBC 15.6 k/uL (3.8-10.6)
[2023-10-17 01:31] LABS: Chloride 105 mmol/L (98-107)
[2023-10-17 01:33] LABS: ALT 23 U/L (4-34); AST 27 U/L (14-36); African American GFR (CKD) 15 (>60 ml/min/1.73 sqM); Albumin 3.4 g/dL (3.5-5.0); Alkaline Phosphatase 65 U/L (38-126); Anion Gap 11 mmol/L; Blood Urea Nitrogen 95 mg/dL (7-17); Calcium 10.3 mg/dL (8.4-10.2); Carbon Dioxide 16 mmol/L (22-30); Glucose 81 mg/dL (74-99); Magnesium 2.1 mg/dL (1.6-2.3); Non-African American GFR(CKD) 13 (>60 ml/min/1.73 sqM); Sodium 132 mmol/L (137-145); Total Bilirubin 0.4 mg/dL (0.2-1.3)
[2023-10-17 01:42] LABS: NT-Pro-B-Type Natriuretic Pept 2840 pg/mL
[2023-10-17 05:36] LABS: Appearance,Urine Clear (Clear); Bacteria,Urine Many /hpf; Bilirubin,Urine Negative (Negative); Blood,Urine Negative (Negative); Color,Urine Colorless; Glucose,Urine (UA) Negative (Negative); Ketones,Urine Negative (Negative); Leukocyte Esterase,Urine Small (Negative); Mucus,Urine Rare /hpf; Nitrite,Urine Negative (Negative); PH, Urine 5.5 (5.0-8.0); Protein,Urine Negative (Negative); RBC,Urine 1 /hpf (0-5); Squamous Epithelial Cell,Urine <1 /hpf (0-4); Urobilinogen,Urine <2.0 mg/dL (<2.0); WBC,Urine 9 /hpf (0-5)
[2023-10-17] MEDS ORDERED: NALOXONE 0.4 MG/ML 1 ML VIAL IV PRN (05:41)
[2023-10-17] MEDS ORDERED: ENALAPRILAT 1.25 MG/ML 1 ML VIAL IVP PRN (08:07)
--- NOTE | 2023-10-17 08:10 | P.HPIM ---
History of Present Illness H&P Date: 10/17/23 HISTORY OF PRESENT ILLNESS: 78-year-old office patient with active medical history of end-stage renal disease was on hemodialysis earlier has been off dialysis for the last 2 years, been evaluated for renal transplant rejected, history of chronic anemia, diastolic congestive heart failure, COPD/asthma, hypertension, hyperlipidemia, hypothyroidism, chronic GERD, chronic neuropathy, severe balance and gait with multiple fall. Who also had significant weight loss last year who apparently was at the walk-in clinic yesterday for worsening shortness of breath dyspnea not been able to lay down flat in bed was sent to the emergency department because of significant cough tightness wheezes with significant respiratory distress was seen and evaluated in the emergency departmentFound to be in quite a bit of fluid overload with worsening peripheral edema and central venous congestion also found to have severe bronchial spasm tightness and wheezing. Was giving few updraft treatment which had helped UA was extremely positive for infection white blood cell was normal kidney function is much worse review of chest x-ray shows central venous congestion most likely failure with worsening kidney function. Recurrent symptoms patient was kept on Rocephin at this point, updraft treatment, will admit patient to the hospital patient is an end-stage renal failure required dialysis she is having significant fluid retention because of her kidney failure. Patient has no dialysis access currently. REVIEW OF SYSTEMS: CONSTITUTIONAL: Well-developed mild respiratory distress EYES: No icterus sclerae, no conjunctivitis. EARS, NOSE, MOUTH, THROAT, and FACE: No sore throat, lymphadenopathy, carotid bruits or deformity. RESPIRATORY: Positive quite bit shortness of breath with cough wheezes. CARDIOVASCULAR: Positive PND orthopnea palpitation. GASTROINTESTINAL: No Abd pain, Nausea or vomiting, no Diarrhea or constipation, No GI Bleed, no distention or masses. GENITOURINARY: Positive urinary tract infection with polyuria and end-stage on chronic kidney failure. INTEGUMENT/BREAST: Generalized arthralgia and myalgia. HEMATOLOGIC/LYMPHATIC: Negative for bleed or purpura. MUSCULOSKELTAL: Generalized myalgia with chronic lower back pain. NEURLOGICAL: No LOC, Sz or syncope, blurred vision dizziness or abnormality.. BEHAVIORAL/PSYCH: Negative. ENDOCRINE: Negative. PHYSICAL EXAMINATION: General Appearance: Alert, cooperative, mild distress. Neck HEENT: Supple, no lymphadenopathy, no thyroid enlargement, no carotid bruits. Lungs: Decreased breath sound bilaterally with fine rhonchi positive inspiratory expiratory wheezes with tightness. Chest Wall: Decreased expansion with deep inspiration no tenderness and no deformity was found on exam, no costochondral pain or discomfort. Heart: Regular rate and rhythm, S1, S2 positive S3 positive systolic murmur. Back: Severe scoliosis and kyphosis with significant CVA tenderness. Abdomen: Soft, non-tender, bowel sounds active all four quadrants, no masses, no organomegaly. Extremities: Generalized arthralgia has significant pain and discomfort both hips. 2+ edema decreased pulse bilaterally. Skin: Skin color, texture, tugor normal, no rashes or lesions. Neurologic: Alert oriented slight confusion, cranial nerves II to XII intact positive generalized weakness with abnormal balance and gait. ASSESSMENT AND PLAN: _Acute respiratory failure: Combination of fluid overload, severe bronchitis and early pneumonitis along with COPD exacerbation. _Severe fluid overload secondary to end-stage renal failure required dialysis patient is edematous with 2+ edema not been able to diabetes enough fluid despite making enough urine output at this point, patient will be seen nephrology probably will need urgent dialysis. _COPD exacerbation: Resume DuoNeb along with Pulmicort pulmonary consultation be done patient be on a smaller dose of steroid as well continue O2. _Urinary tract infection and most likely early sepsis: UA is very positive, white blood cell 15,600 left shifted no lactic acid done which will be done at this point, blood culture and urine culture will be done as well. Continue Rocephin for now till the culture is back. _Severe bronchitis with early pneumonia: Chest x-ray does not supported cur rently with only exception of COPD the patient is more wet symptomatic with prominent interstitial lung markings scattered through the entire lung similar to receiving fluid overload mostly from pneumonia bronchitis is mostly hidden with the amount of water retention and pulmonary edema retained. Will continue current treatment for now. _Hypothyroidism: Resume levothyroxine at 150 mcg daily. _Severe GERD: Remain on omeprazole 40 mg a_twice a day. _Hypertension: Has been on midodrine 5 mg twice a day resume medication. _Chronic depression: Has been on Prozac 20 mg daily._ _Chronic anemia: Mostly iron deficiency and continue Procrit along with iron supplement. _Overflow incontinence: Has been on Myrbetriq 25 mg daily. _GI prophylaxis: Remain on omeprazole. _DVT prophylaxis: Knee-high PATT hose and early mobilization. _CODE STATUS: Full code. _Admit patient to the inpatient service for more than 2 night stay. Past Medical History Past Medical History: Asthma, Cancer, COPD, Osteoarthritis (OA), Renal Disease, Thyroid Disorder Additional Past Medical History / Comment(s): kidney stones and UTI,steroid injection October 2018 hx lymphedema, hx pulmonary fibrosis, hx graves,hx rt foot torn ligaments,hx kidney stones, hx osteoporosis,hypotension, chronic respiratory failure on 2 L nasal cannula at night & prn, vitamin D deficiency, hypocalcemia. SKIN CANCER REMOVED FROM BRIDGE OF NOSE., PMR History of Any Multi-Drug Resistant Organisms: CRE Date of last positivie culture/infection: 10/16/18 MDRO-CRE PER [facility] NOT [facility] MDRO Source:: Urine Past Surgical History: Bariatric Surgery Additional Past Surgical History / Comment(s): hx bariatric surgery-Kye En Y,lung biopsy,radioactive iodine-tx thyroid,rectal and bladder suspensions,vaginal surgery as a child,partha carpel tunnel,rt knee meniscus repair,D&C x3, left arm fistula 02/08/19 (not working) Past Anesthesia/Blood Transfusion Reactions: Previous Problems w/ Anesthesia, Postoperative Nausea & Vomiting (PONV) Additional Past Anesthesia/Blood Transfusion Reaction / Comment(s): decrease bp with anesthesia,no problems with prior blood transfusion Past Psychological History: No Psychological Hx Reported Smoking Status: Never smoker - Past Family History Father Family Medical History: Pulmonary Embolus Additional Family Medical History / Comment(s): . Mother Family Medical History: Cancer Additional Family Medical History / Comment(s): . Sister(s) Family Medical History: Cancer Additional Family Medical History / Comment(s): . Daughter(s) Additional Family Medical History / Comment(s): lymphedema in legs Brother(s) Family Medical History: Cancer Additional Family Medical History / Comment(s): skin cancer Medications and Allergies Home Medications Medication Instructions Recorded Confirmed Type FLUoxetine HCL [PROzac] 20 mg PO DAILY 08/23/18 10/06/23 History Montelukast [Singulair] 10 mg PO HS 08/23/18 10/06/23 History Omeprazole 40 mg PO AC-BID 11/19/18 10/06/23 History Ergocalciferol (Vitamin D2) 50,000 unit PO MOWEFR 01/31/19 10/06/23 History [Vitamin D2] Sodium Bicarbonate Tab 1,950 mg PO TID 07/22/19 10/06/23 History traMADol HCL [Ultram] 50 mg PO Q6H PRN 07/22/19 10/06/23 History Loratadine 10 mg PO DAILY 12/06/19 10/06/23 History Magnesium Chloride [Mag64] 64 mg PO DAILY 12/06/19 10/06/23 History Methenamine Hippurate 1 gm PO BID 01/25/21 10/06/23 History Mirabegron [Myrbetriq] 25 mg PO DAILY 01/25/21 10/06/23 History Albuterol Inhaler [Ventolin Hfa 2 puff INHALATION RT-Q6H PRN 02/07/23 10/06/23 History Inhaler] Benzonatate [Tessalon Perle] 200 mg PO TID PRN 02/07/23 10/06/23 History Docusate [Colace] 200 mg PO BID 02/07/23 10/06/23 History Fluticasone Propion/Salmeterol 1 puff INHALATION RT-BID 02/07/23 10/06/23 History [Wixela 250-50 Inhub] Levothyroxine Sodium [Synthroid] 150 mcg PO DAILY 02/07/23 10/06/23 History Potassium Chloride [Klor-Con 8] 8 meq PO DAILY 02/07/23 10/06/23 History calcitrioL 1 mcg PO BID 02/07/23 10/06/23 History Bumetanide [BUMEX] 1 mg PO Q48H #0 02/16/23 10/06/23 Rx Ipratropium-Albuterol Nebulize 3 ml INHALATION RT-TID #100 each 02/16/23 10/06/23 Rx [Duoneb 0.5 mg-3 mg/3 ml Soln] Ipratropium-Albuterol Nebulize 3 ml INHALATION RT-TID PRN each 02/16/23 10/06/23 Rx [Duoneb 0.5 mg-3 mg/3 ml Soln] Midodrine [ProAmatine] 5 mg PO BID PRN tab 02/16/23 10/06/23 Rx Sevelamer [Renvela] 800 mg PO TID-W/MEALS #90 tab 02/16/23 10/06/23 Rx predniSONE 30 mg PO DAILY #18 tab 02/16/23 10/06/23 Rx Allergies Allergy/AdvReac Type Severity Reaction Status Date / Time adhesive tape Allergy Rash/Hives Verified 10/06/23 13:15 Sulfa (Sulfonamide Allergy Itching Verified 10/06/23 13:15 Antibiotics) tetracycline Allergy Nausea & Verified 10/06/23 13:15 Vomiting codeine AdvReac Nausea Verified 10/06/23 13:15 epoetin beta [From Mircera] AdvReac Unknown Verified 10/06/23 13:15 Physical Exam Vitals: Vital Signs Temp Pulse Resp BP Pulse Ox 10/17/23 05:45 67 18 116/63 96 10/17/23 03:54 20 10/17/23 00:53 68 18 115/64 95 10/17/23 00:50 86 10/17/23 00:44 84 10/16/23 18:08 98.6 F 83 18 96/61 96 Intake and Output 10/16/23 10/16/23 10/17/23 14:59 22:59 06:59 Other: Weight 53.977 kg Results CBC & Chem 7: 10/16/23 23:56 10/16/23 23:56 Labs: Abnormal Lab Results - Last 24 Hours (Table) 10/16/23 10/16/23 10/17/23 Range/Units 23:56 23:56 04:15 WBC 15.6 H (3.8-10.6) k/uL RBC 2.93 L (3.80-5.40) m/uL Hgb 9.6 L (11.4-16.0) gm/dL Hct 32.5 L (34.0-46.0) % MCV 110.9 H (80.0-100.0) fL MCHC 29.5 L (31.0-37.0) g/dL Macrocytosis Marked A Sodium 132 L (137-145) mmol/L Carbon Dioxide 16 L (22-30) mmol/L BUN 95 H (7-17) mg/dL Creatinine 3.28 H (0.52-1.04) mg/dL Calcium 10.3 H (8.4-10.2) mg/dL Total Protein 6.0 L (6.3-8.2) g/dL Albumin 3.4 L (3.5-5.0) g/dL Ur Leukocyte Esterase Small H (Negative) Urine WBC 9 H (0-5) /hpf Urine Bacteria Many H (None) /hpf Urine Mucus Rare H (None) /hpf
[2023-10-17] MEDS: IPRATROPIUM-ALBUTEROL 3 ML NEB INHALATION SCH ×2 (08:26→12:17)
[2023-10-17] MEDS ORDERED: IPRATROPIUM-ALBUTEROL 3 ML NEB INHALATION PRN (08:35)
[2023-10-17] MEDS: FAMOTIDINE 20 MG TAB PO SCH (09:56)
[2023-10-17] MEDS: FUROSEMIDE 10 MG/ML 10 ML VIAL IV SCH (10:05)
[2023-10-17] MEDS: cefTRIAXone IN SWFI 1,000 MG/10 ML SYRINGE IVP STA (11:34)
[2023-10-17] MEDS: methylPREDNISolone SOD SUCCI 125 MG/2 ML VIAL IV SCH (11:36)
--- NOTE | 2023-10-17 11:38 | P.CNPUL ---
History of Present Illness Consult date: 10/17/23 Requesting physician: Bienvenido Hogue Reason for consult: dyspnea, cough, COPD, hypoxemia Chief complaint: Shortness of breath, COPD exacerbation. History of present illness: Pulmonary consultation dated October 17, 2023. 78-year-old female with a history of underlying severe chronic bronchial asthma/COPD. The patient apparently is a lifelong non-smoker. She presented to the emergency department, on October 15, complaining of increasing shortness of breath, cough, congestion, and difficulty in breathing. She apparently had some fever and chills, especially, the night before she was admitted. She states that she started getting sick on Mother's Day, but was even not well before then. Currently, the patient is not receiving any IV fluids. Her room air saturations are 99%. At home, she is on DuoNebs, albuterol inhaler, Wixela, and Singulair. Current labs include a white count 15.6, hemoglobin 9.6, hematocrit 32.5, and a normal platelet count. Sodium 132, potassium 4, chlorides 105, CO2 16, BUN 95, and creatinine 3.28. N-terminal proBNP is 2840. Albumin is 3.4. Calcium 10.3. Urine shows it to be positive for leukocyte Estrace, and there was 9 WBCs, in the urine, and many bacteria. She tested negative for influenza A, influenza B, RSV, and coronavirus. Chest x-ray shows changes of COPD, without an acute cardiopulmonary process. Review of Systems REVIEW OF SYSTEMS: CONSTITUTIONAL: [Negative.] NEUROLOGIC: [ Negative.] HEENT: [ Negative.] CARDIAC: [Negative.] PULMONARY: Cough, shortness of breath, chest tightness, wheezing, and occasional phlegm production. GI: [Negative.] : [Negative.] RHEUMATOLOGIC: [ Negative.] IMMUNOLOGIC: [ Negative.] ENDOCRINE: [Negative. ] DERMATOLOGIC: [Negative.] Past Medical History Past Medical History: Asthma, Cancer, COPD, Osteoarthritis (OA), Renal Disease, Thyroid Disorder Additional Past Medical History / Comment(s): kidney stones and UTI,steroid injection October 2018 hx lymphedema, hx pulmonary fibrosis, hx graves,hx rt foot torn ligaments,hx kidney stones, hx osteoporosis,hypotension, chronic respiratory failure on 2 L nasal cannula at night & prn, vitamin D deficiency, hypocalcemia. SKIN CANCER REMOVED FROM BRIDGE OF NOSE., PMR History of Any Multi-Drug Resistant Organisms: CRE Date of last positivie culture/infection: 10/16/18 MDRO-CRE PER [facility] NOT [facility] MDRO Source:: Urine Past Surgical History: Bariatric Surgery Additional Past Surgical History / Comment(s): hx bariatric surgery-Kye En Y,l raudel biopsy,radioactive iodine-tx thyroid,rectal and bladder suspensions,vaginal surgery as a child,partha carpel tunnel,rt knee meniscus repair,D&C x3, left arm fistula 02/08/19 (not working) Past Anesthesia/Blood Transfusion Reactions: Previous Problems w/ Anesthesia, Postoperative Nausea & Vomiting (PONV) Additional Past Anesthesia/Blood Transfusion Reaction / Comment(s): decrease bp with anesthesia,no problems with prior blood transfusion Past Psychological History: No Psychological Hx Reported Smoking Status: Never smoker - Past Family History Father Family Medical History: Pulmonary Embolus Additional Family Medical History / Comment(s): . Mother Family Medical History: Cancer Additional Family Medical History / Comment(s): . Sister(s) Family Medical History: Cancer Additional Family Medical History / Comment(s): . Daughter(s) Additional Family Medical History / Comment(s): lymphedema in legs Brother(s) Family Medical History: Cancer Additional Family Medical History / Comment(s): skin cancer Medications and Allergies Home Medications Medication Instructions Recorded Confirmed Type FLUoxetine HCL [PROzac] 20 mg PO BID 08/23/18 10/17/23 History Montelukast [Singulair] 10 mg PO HS 08/23/18 10/17/23 History Omeprazole 40 mg PO AC-BID 11/19/18 10/17/23 History Sodium Bicarbonate Tab 1,950 mg PO TID 07/22/19 10/17/23 History traMADol HCL [Ultram] 50 mg PO Q8H PRN 07/22/19 10/17/23 History Loratadine 10 mg PO DAILY 12/06/19 10/17/23 History Magnesium Chloride [Mag64] 64 mg PO DAILY 12/06/19 10/17/23 History Methenamine Hippurate 1 gm PO BID 01/25/21 10/17/23 History Mirabegron [Myrbetriq] 25 mg PO DAILY 01/25/21 10/17/23 History Albuterol Inhaler [Ventolin Hfa 2 puff INHALATION RT-Q6H PRN 02/07/23 10/17/23 History Inhaler] Benzonatate [Tessalon Perle] 200 mg PO TID PRN 02/07/23 10/17/23 History Docusate [Colace] 200 mg PO BID 02/07/23 10/17/23 History Levothyroxine Sodium [Synthroid] 150 mcg PO DAILY 02/07/23 10/17/23 History Potassium Chloride [Klor-Con 8] 8 meq PO DAILY 02/07/23 10/17/23 History calcitrioL 1.5 mcg PO BID 02/07/23 10/17/23 History Albuterol Nebulized [Ventolin 2.5 mg INHALATION RT-Q6H PRN 10/17/23 10/17/23 History Nebulized] Ascorbic Acid [Vitamin C] 1,000 mg PO DAILY 10/17/23 10/17/23 History Bumetanide [BUMEX] 1 mg PO DAILY 10/17/23 10/17/23 History Calcium Acetate [Phoslo] 1,334 mg PO BID PRN 10/17/23 10/17/23 History Calcium Acetate [Phoslo] 2,004 mg PO AC-TID 10/17/23 10/17/23 History Ergocalciferol [Vitamin D2 (1250 1,250 mcg PO DIRECTED 10/17/23 10/17/23 History Mcg = 81161 Iu)] Gabapentin [Neurontin] 300 mg PO BID 10/17/23 10/17/23 History Midodrine [ProAmatine] 5 mg PO DAILY PRN 10/17/23 10/17/23 History Prolia (Unknown Dose) 60 mg IM Q180D 10/17/23 10/17/23 History Sevelamer [Renvela] 800 mg PO AC-TID 10/17/23 10/17/23 History Turmeric Root Extract [Turmeric] 500 mg PO DAILY 10/17/23 10/17/23 History metroNIDAZOLE [Flagyl] 250 mg PO DAILY 10/17/23 10/17/23 History Allergies Allergy/AdvReac Type Severity Reaction Status Date / Time adhesive tape Allergy Rash/Hives Verified 10/17/23 08:41 Sulfa (Sulfonamide Allergy Itching Verified 10/17/23 08:41 Antibiotics) codeine AdvReac Nausea Verified 10/17/23 08:41 epoetin beta [From Mircera] AdvReac Unknown Verified 10/17/23 08:41 tetracycline AdvReac Nausea & Verified 10/17/23 08:41 Vomiting Physical Exam Osteopathic Statement: *. No significant issues noted on an osteopathic structural exam other than those noted in the History and Physical/Consult. Vitals: Vital Signs Temp Pulse Resp BP Pulse Ox 10/17/23 08:37 62 18 10/17/23 08:27 60 16 10/17/23 08:00 97.5 F L 10/17/23 07:00 66 18 112/64 95 10/17/23 05:45 67 18 116/63 96 10/17/23 03:54 20 10/17/23 00:53 68 18 115/64 95 10/17/23 00:50 86 10/17/23 00:44 84 10/16/23 18:08 98.6 F 83 18 96/61 96 Intake and Output 10/16/23 10/17/23 10/17/23 22:59 06:59 14:59 Other: Weight 53.977 kg No acute distress, oriented 3. Frequent cough. No conversational dyspnea. HEENT examination is grossly unremarkable. Mucous membranes are moist. No oral lesions. Neck supple. Full range of motion. No adenopathy thyromegaly or neck vein distention. Cardiovascular examination reveals regular rhythm rate. S1-S2 normal. No S3 or S4. No discernible murmur noted. Heart rate 62 bpm. Heart sounds are distant. Lungs reveal diffuse bilateral inspiratory and expiratory wheezes and rhonchi. Breath sounds are rather coarse. There are no crackles. Breath sounds equal bilaterally. Room air saturation is 95%. Abdomen soft bowel sounds are heard. No masses or tenderness. Extremities are intact. No cyanosis clubbing or edema. Skin is without rash or lesion. Neurologic examination is brief but nonfocal. Results - Laboratory Findings CBC and BMP: 10/16/23 23:56 10/16/23 23:56 Abnormal lab findings: Abnormal Labs 10/16/23 10/16/23 10/17/23 23:56 23:56 04:15 WBC 15.6 H RBC 2.93 L Hgb 9.6 L Hct 32.5 L MCV 110.9 H MCHC 29.5 L Neutrophils # 12.5 H Macrocytosis Marked A Sodium 132 L Carbon Dioxide 16 L BUN 95 H Creatinine 3.28 H Calcium 10.3 H Total Protein 6.0 L Albumin 3.4 L Ur Leukocyte Esterase Small H Urine WBC 9 H Urine Bacteria Many H Urine Mucus Rare H - Diagnostic Findings Chest x-ray: image reviewed Assessment and Plan Assessment: Acute exacerbation of COPD/asthma. The patient states that she is a lifelong non-smoker. History of osteoarthritis. History of renal failure. History of skin cancer. History of kidney stones. Osteoporosis. History of hypothyroidism. Lifelong non-smoker. Multiple other medical problems and comorbidities. Plan: Plan dated October 17, 2023. We will check a procalcitonin level. The patient states that she is a lifelong non-smoker, and has asthma. We add formoterol to her budesonide, and nebulized that twice a day. In addition, we increased her Solu-Medrol up to 60 mg every 6 hours. Will also add Singulair, 10 mg at bedtime. We will continue to follow the patient, make recommendations along the way. The patient is overall prognosis remains guarded. The patient follows with my partner, Dr. Alfredo in the office. Currently, the patient is on Rocephin. If the procalcitonin level is normal, that can be discontinued. Time with Patient: Greater than 30
[2023-10-17 11:39] LABS: Glucose,Whole Blood 127 mg/dL (70-110)
[2023-10-17] MEDS: INSULIN ASPART (NovoLOG) 100 UNIT/ML VIAL SQ SCH ×2 (11:40→19:10)
--- NOTE | 2023-10-17 13:54 | P.NPCON ---
History of Present Illness - Reason for Consult acute renal failure - History of Present Illness patient is a 78-year-old female with history of chronic kidney disease NKF stage IV with previous episode of acute kidney injury requiring hemodialysis. Patient was on dialysis for about 2 years. She did have recovery of renal function and was able to come off of dialysis. Serum creatinine has been ranging around 2.5- 3 mg/dL. Patient did not tolerate hemodialysis well and had frequent episodes of hypotension. Patient is admitted to the hospital with increased weight gain and multiple falls. She has had cough with no history of fever. Patient has chronic lower extremity edema/lymphedema which is worse. Significant weight loss noted over the last 1 year. Patient is currently off of the transplant list as she is not a candidate for transplant anymore due to significant frailty. Patient had refused restarting dialysis but seems to have agreed to it now if needed. patient denies nausea or vomiting. Serum creatinine 3.28 today.blood pressure on the lower side with systolic at 1 12 mmHg. O2 sats 99% on room air. Next Chest x-rayshows changes of COPD with no acute process. Interstitial lung markings noted bilaterally. Review of Systems as per HPI Past Medical History Past Medical History: Asthma, Cancer, COPD, Osteoarthritis (OA), Renal Disease, Thyroid Disorder Additional Past Medical History / Comment(s): kidney stones and UTI,steroid injection October 2018 hx lymphedema, hx pulmonary fibrosis, hx graves,hx rt foot torn ligaments,hx kidney stones, hx osteoporosis,hypotension, chronic res piratory failure on 2 L nasal cannula at night & prn, vitamin D deficiency, hypocalcemia. SKIN CANCER REMOVED FROM BRIDGE OF NOSE., PMR History of Any Multi-Drug Resistant Organisms: CRE Date of last positivie culture/infection: 10/16/18 [facility] MDRO Source:: Urine Past Surgical History: Bariatric Surgery Additional Past Surgical History / Comment(s): hx bariatric surgery-Kye En Y,lung biopsy,radioactive iodine-tx thyroid,rectal and bladder suspensio ns,vaginal surgery as a child,partha carpel tunnel,rt knee meniscus repair,D&C x3, left arm fistula 02/08/19 (not working) Past Anesthesia/Blood Transfusion Reactions: Previous Problems w/ Anesthesia, Postoperative Nausea & Vomiting (PONV) Additional Past Anesthesia/Blood Transfusion Reaction / Comment(s): decrease bp with anesthesia,no problems with prior blood transfusion Past Psychological History: No Psychological Hx Reported Smoking Status: Never smoker - Past Family History Father Family Medical History: Pulmonary Embolus Additional Family Medical History / Comment(s): . Mother Family Medical History: Cancer Additional Family Medical History / Comment(s): . Sister(s) Family Medical History: Cancer Additional Family Medical History / Comment(s): . Daughter(s) Additional Family Medical History / Comment(s): lymphedema in legs Brother(s) Family Medical History: Cancer Additional Family Medical History / Comment(s): skin cancer Medications and Allergies Home Medications Medication Instructions Recorded Confirmed Type FLUoxetine HCL [PROzac] 20 mg PO BID 08/23/18 10/17/23 History Montelukast [Singulair] 10 mg PO HS 08/23/18 10/17/23 History Omeprazole 40 mg PO AC-BID 11/19/18 10/17/23 History Sodium Bicarbonate Tab 1,950 mg PO TID 07/22/19 10/17/23 History traMADol HCL [Ultram] 50 mg PO Q8H PRN 07/22/19 10/17/23 History Loratadine 10 mg PO DAILY 12/06/19 10/17/23 History Magnesium Chloride [Mag64] 64 mg PO DAILY 12/06/19 10/17/23 History Methenamine Hippurate 1 gm PO BID 01/25/21 10/17/23 History Mirabegron [Myrbetriq] 25 mg PO DAILY 01/25/21 10/17/23 History Albuterol Inhaler [Ventolin Hfa 2 puff INHALATION RT-Q6H PRN 02/07/23 10/17/23 History Inhaler] Benzonatate [Tessalon Perle] 200 mg PO TID PRN 02/07/23 10/17/23 History Docusate [Colace] 200 mg PO BID 02/07/23 10/17/23 History Levothyroxine Sodium [Synthroid] 150 mcg PO DAILY 02/07/23 10/17/23 History Potassium Chloride [Klor-Con 8] 8 meq PO DAILY 02/07/23 10/17/23 History calcitrioL 1.5 mcg PO BID 02/07/23 10/17/23 History Albuterol Nebulized [Ventolin 2.5 mg INHALATION RT-Q6H PRN 10/17/23 10/17/23 History Nebulized] Ascorbic Acid [Vitamin C] 1,000 mg PO DAILY 10/17/23 10/17/23 History Bumetanide [BUMEX] 1 mg PO DAILY 10/17/23 10/17/23 History Calcium Acetate [Phoslo] 1,334 mg PO BID PRN 10/17/23 10/17/23 History Calcium Acetate [Phoslo] 2,004 mg PO AC-TID 10/17/23 10/17/23 History Ergocalciferol [Vitamin D2 (1250 1,250 mcg PO DIRECTED 10/17/23 10/17/23 History Mcg = 46717 Iu)] Gabapentin [Neurontin] 300 mg PO BID 10/17/23 10/17/23 History Midodrine [ProAmatine] 5 mg PO DAILY PRN 10/17/23 10/17/23 History Prolia (Unknown Dose) 60 mg IM Q180D 10/17/23 10/17/23 History Sevelamer [Renvela] 800 mg PO AC-TID 10/17/23 10/17/23 History Turmeric Root Extract [Turmeric] 500 mg PO DAILY 10/17/23 10/17/23 History metroNIDAZOLE [Flagyl] 250 mg PO DAILY 10/17/23 10/17/23 History Allergies Allergy/AdvReac Type Severity Reaction Status Date / Time adhesive tape Allergy Rash/Hives Verified 10/17/23 08:41 Sulfa (Sulfonamide Allergy Itching Verified 10/17/23 08:41 Antibiotics) codeine AdvReac Nausea Verified 10/17/23 08:41 epoetin beta [From Mircera] AdvReac Unknown Verified 10/17/23 08:41 tetracycline AdvReac Nausea & Verified 10/17/23 08:41 Vomiting Physical Exam Vitals: Vital Signs Temp Pulse Pulse Resp BP BP Pulse Ox 10/17/23 12:57 97.8 F 65 18 119/71 99 10/17/23 08:37 62 18 10/17/23 08:27 60 16 10/17/23 08:00 97.5 F L 10/17/23 07:00 66 18 112/64 95 10/17/23 05:45 67 18 116/63 96 10/17/23 03:54 20 10/17/23 00:53 68 18 115/64 95 10/17/23 00:50 86 10/17/23 00:44 84 10/16/23 18:08 98.6 F 83 18 96/61 96 Intake and Output 10/16/23 10/17/23 10/17/23 22:59 06:59 14:59 Other: Weight 53.977 kg patient is awake, comfortable, alert oriented 3. No acute distress Examination of the heart S1 and S2 Examination of the lungs shows bilateral breath sounds are heard with occasional wheezing noted. Abdomen is soft nontender Examination of lower extremities shows edema with chronic skin changes. INDUSTRIAL ECOLOGIST exam grossly intact Results - Lab Results Most recent lab results Calcium 10.3 mg/dL (8.4-10.2) H 10/16/23 23:56 Magnesium 2.1 mg/dL (1.6-2.3) 10/16/23 23:56 10/16/23 23:56 10/16/23 23:56 Assessment and Plan Assessment: 1. Acute kidney injury, ATN versus progression of underlying CK D. History of hemodialysis dependent acute kidney injury with recovery of renal function to some degree and discontinuation of hemodialysis. Patient had been refusing restarting renal replacement therapy but has agreed to it now if needed. Patient did not tolerate hemodialysis well and had multiple episodes of hypotension with poorly functioning catheters. She has been off of dialysis for about 2 years now. 2. Chronic lower extremity edema/lymphedema with recent worsening 3. COPD exacerbation maintained on IV steroids and updraft treatments. Being followed by pulmonology 4. CK D mineral bone disorder maintained on PhosLo 5. Chronic hypotension maintained on midodrine as needed. Plan: add IV Lasix Repeat labs in a.m. Add oral sodium bicarb Accurate I's and O's Patient is agreeable to starting dialysis if renal function continues to worsen. We will continue to monitor on a daily basis. Thank you for the consultation. We will continue to follow the patient with you during her hospitalization.
[2023-10-17] MEDS ORDERED: methylPREDNISolone SOD SUCCI 40 MG/ML 1 ML VIAL IV SCH (16:00)
[2023-10-17 17:05] LABS: Glucose,Whole Blood 169 mg/dL (70-110)
[2023-10-17] MEDS: SODIUM BICARBONATE TAB 650 MG TAB PO SCH (17:48)
--- NOTE | 2023-10-17 19:05 | US ---
EXAMINATION TYPE: US kidneys/renal and bladder DATE OF EXAM: 10/17/2023 COMPARISON: 12/10/2021 CT CLINICAL INDICATION: Female, 78 years old with history of arik; known arik, h/o dialysis a few years ag o EXAM MEASUREMENTS: Right Kidney: 9.3 x 4.0 x 4.4 cm Left Kidney: 7.1 x 3.7 x 3.9 cm Right Kidney: chronic moderate hydronephrosis, similar compared to 12/10/2021. Echogenic and thinned re nal cortex. Left Kidney: small in size, echogenic cortex. No olivia hydronephrosis. Bladder: Nondistention limits evaluation. IMPRESSION: 1. Changes of bilateral chronic medical renal disease. 2. Moderate hydronephrosis on the right. Query if this is ongoing compared to the 12/10/2021 CT exam. 3. Suboptimal assessment of the bladder due to nondistention.
[2023-10-17] MEDS: FORMOTEROL FUMARATE 20 MCG/2 ML NEBU INHALATION SCH (20:24)
[2023-10-17] MEDS: BUDESONIDE 1 MG/2 ML NEBU INHALATION SCH (20:24)
[2023-10-17 20:53] LABS: Glucose,Whole Blood 142 mg/dL (70-110)
[2023-10-17] MEDS: MONTELUKAST 10 MG TAB PO SCH (22:17)
[2023-10-18 04:26] LABS: Basophils % (A) 0 %; Eosinophils % (A) 0 %; HCT 32.4 % (34.0-46.0); HGB 9.5 gm/dL (11.4-16.0); Hypochromasia Moderate; Lymphocytes # (A) 0.3 k/uL (1.0-4.8); Lymphocytes % (A) 4 %; MCH 32.5 pg (25.0-35.0); MCHC 29.4 g/dL (31.0-37.0); MCV 110.6 fL (80.0-100.0); Macrocytosis Marked; Mean Platelet Volume 8.3; Monocytes # (A) 0.2 k/uL (0-1.0); Monocytes % (A) 2 %; Neutrophils # (A) 6.8 k/uL (1.3-7.7); Neutrophils % (A) 93 %; Platelet Count 211 k/uL (150-450); RBC 2.93 m/uL (3.80-5.40); RDW 13.8 % (11.5-15.5); WBC 7.3 k/uL (3.8-10.6)
[2023-10-18 04:39] LABS: ALT 23 U/L (4-34); AST 22 U/L (14-36); African American GFR (CKD) 14 (>60 ml/min/1.73 sqM); Albumin 3.4 g/dL (3.5-5.0); Alkaline Phosphatase 62 U/L (38-126); Anion Gap 13 mmol/L; Blood Urea Nitrogen 89 mg/dL (7-17); Calcium 10.7 mg/dL (8.4-10.2); Carbon Dioxide 17 mmol/L (22-30); Chloride 105 mmol/L (98-107); Glucose 157 mg/dL (74-99); Non-African American GFR(CKD) 12 (>60 ml/min/1.73 sqM); Potassium 3.8 mmol/L (3.5-5.1); Sodium 135 mmol/L (137-145); Total Bilirubin 0.4 mg/dL (0.2-1.3); Total Protein 6.1 g/dL (6.3-8.2)
[2023-10-18 06:07] LABS: Glucose,Whole Blood 176 mg/dL (70-110)
--- NOTE | 2023-10-18 06:54 | CA ---
Transthoracic Echo Report Name: Margie Dallas Age: 78 Gender: F : 1945 Exam Date: 10/17/2023 13:17 Exam Location: [facility] Ht (in): 63 Wt (lb): 119 Ordering Physician: Bienvenido Hogue MD Attending/Referring Phys: Burlap Spreader Josi Baez RDCS Procedure CPT: Indications: lvfunction Cardiac Hx: Technical Quality: Fair Contrast 1: Total Dose (mL): Contrast 2: Total Dose (mL): MEASUREMENTS (Male / Female) Normal Values 2D ECHO LV Diastolic Diameter PLAX 4.2 cm 4.2 - 5.9 / 3.9 - 5.3 cm LV Systolic Diameter PLAX 2.8 cm IVS Diastolic Thickness 0.8 cm 0.6 - 1.0 / 0.6 - 0.9 cm LVPW Diastolic Thickness 1.1 cm 0.6 - 1.0 / 0.6 - 0.9 cm LV Relative Wall Thickness 0.5 RV Internal Dim ED PLAX 1.6 cm LA Systolic Diameter LX 3.1 cm 3.0 - 4.0 / 2.7 - 3.8 cm LV Diastolic Volume MOD BP 50.0 cm??? 67 - 155 / 56 - 104 cm??? LV Systolic Volume MOD BP 23.2 cm??? 22 - 58 / 19 - 49 cm??? LV Ejection Fraction MOD BP 53.7 % >= 55 % LV Cardiac Index MOD BP 1108.3 cm???/min???m??? LV Diastolic Volume MOD 4C 45.8 cm??? LV Systolic Volume MOD 4C 15.0 cm??? LV Ejection Fraction MOD 4C 67.4 % LV Cardiac Index MOD 4C 1275.3 cm???/min???m??? LV Diastolic Length 4C 6.0 cm LV Systolic Length 4C 4.9 cm LV Diastolic Volume MOD 2C 50.3 cm??? LV Systolic Volume MOD 2C 28.4 cm??? LV Ejection Fraction MOD 2C 43.6 % LV Cardiac Index MOD 2C 904.2 cm???/min???m??? LV Diastolic Length 2C 6.6 cm LV Systolic Length 2C 5.9 cm LA Volume 34.8 cm??? 18 - 58 / 22 - 52 cm??? LA Volume Index 22.5 cm???/m??? 16 - 28 cm???/m??? M-MODE Aortic Root Diameter MM 3.1 cm LA Systolic Diameter MM 3.2 cm LA Ao Ratio MM 1.0 AV Cusp Separation MM 1.4 cm DOPPLER AV Peak Velocity 106.8 cm/s AV Peak Gradient 4.6 mmHg AV Mean Velocity 83.0 cm/s AV Mean Gradient 2.9 mmHg AV Velocity Time Integral 29.1 cm MV Area PHT 2.7 cm??? Mitral E Point Velocity 92.3 cm/s Mitral A Point Velocity 93.3 cm/s Mitral E to A Ratio 1.0 MV Deceleration Time 285.5 ms TR Peak Velocity 238.0 cm/s TR Peak Gradient 22.7 mmHg Right Ventricular Systolic Press 27.4 mmHg FINDINGS Left Ventricle Left ventricular ejection fraction is estimated at 55-60 %. Mildly increased posterior wall thickness. Mildly decreased left ventricular ejection fraction. No obvious regional wall motion abnormalities. Left ventricular cavity size normal. Right Ventricle Normal right ventricular size and function. Right ventricular systolic pressure within normal limits. Right Atrium Normal right atrial size. Left Atrium Normal left atrial size. Mitral Valve Structurally normal mitral valve. Trace mitral regurgitation.mitral annular calcification. Aortic Valve Trileaflet aortic valve. Aortic valve not well visualized. No aortic stenosis. No aortic regurgitation.aortic valve sclerosis. Tricuspid Valve Structurally normal tricuspid valve. Trace to mild tricuspid regurgitation. Pulmonic Valve Structurally normal pulmonic valve. No pulmonic regurgitation. Pericardium No pericardial or pleural effusion. Aorta Normal size aortic root and proximal ascending aorta. CONCLUSIONS 1. Normal left ventricular size and systolic function 2. Trace to mild mitral and tricuspid regurgitation Previewed by: Dr. Eleuterio Campbell MD (Electronically Signed) Final Date: 18 Oct 2023 06:53
[2023-10-18] MEDS ORDERED: CALCIUM ACETATE 667 MG TAB PO PRN (09:34)
[2023-10-18] MEDS ORDERED: BENZONATATE 100 MG CAP PO PRN (09:34)
[2023-10-18] MEDS ORDERED: MIDODRINE 5 MG TAB PO PRN (09:34)
[2023-10-18] MEDS ORDERED: ERGOCALCIFEROL 1,250 MCG (50,000 IU) CAPSULE PO SCH (09:45)
--- NOTE | 2023-10-18 10:16 | P.PN ---
Subjective Progress Note Date: 10/18/23 Principal diagnosis: COPD exacerbation. Pulmonary consultation dated October 17, 2023. 78-year-old female with a history of underlying severe chronic bronchial asthma/COPD. The patient apparently is a lifelong non-smoker. She presented to the emergency department, on October 15, complaining of increasing shortness of breath, cough, congestion, and difficulty in breathing. She apparently had some fever and chills, especially, the night before she was admitted. She states that she started getting sick on Mother's Day, but was even not well before then. Currently, the patient is not receiving any IV fluids. Her room air saturations are 99%. At home, she is on DuoNebs, albuterol inhaler, Wixela, and Singulair. Current labs include a white count 15.6, hemoglobin 9.6, hematocrit 32.5, and a normal platelet count. Sodium 132, potassium 4, chlorides 105, CO2 16, BUN 95, and creatinine 3.28. N-terminal proBNP is 2840. Albumin is 3.4. Calcium 10.3. Urine shows it to be positive for leukocyte Estrace, and there was 9 WBCs, in the urine, and many bacteria. She tested negative for influenza A, influenza B, RSV, and coronavirus. Chest x-ray shows changes of COPD, w ithout an acute cardiopulmonary process. Progress note dated October 18, 2023. 78-year-old female with a history of severe chronic bronchial asthma/COPD. The patient was seen in consultation yesterday. Please see the note above. Today, she is seen in room 154, observation unit. She is currently on room air. She is not receiving any IV fluids. The patient is apparently doing much better. Current labs include a white count 7.3, hemoglobin 9.5, hematocrit 32.4, and platelet count that was normal. Sodium 135, potassium 3.8, chlorides 105, CO2 17, anion gap 13, BUN 89, and creatinine 3.51. Glucose 176. Albumin 3.4. Objective - Vital Signs Vital signs: Vital Signs Temp 97.6 F 10/18/23 06:53 Pulse 83 10/18/23 08:29 Resp 16 10/18/23 06:53 BP 110/67 10/18/23 06:53 Pulse Ox 97 10/18/23 06:53 FiO2 Intake & Output 10/17/23 10/18/23 10/18/23 18:59 06:59 18:59 Output Total 150 Balance -150 Weight 49.6 kg Output: Urine 150 Other: Voiding Method Toilet Toilet Diaper Diaper # Voids 3 1 # Bowel Movements 1 - Exam No acute distress, oriented 3. No conversational dyspnea. Currently on room air. HEENT examination is grossly unremarkable. Mucous membranes are moist. No oral lesions. Neck supple. Full range of motion. No adenopathy thyromegaly or neck vein distention. Cardiovascular examination reveals regular rhythm rate. S1-S2 normal. No S3 or S4. No discernible murmur noted. Heart rate 83 bpm. Heart sounds are distant. Lungs reveal scattered bilateral rhonchi. No wheezes. No crackles. Breath sounds equal. Breath sounds are improved. Room air saturation 97%. Abdomen soft bowel sounds are heard. No masses or tenderness. Extremities are intact. No cyanosis clubbing or edema. Skin is without rash or lesion. Neurologic examination is brief but nonfocal. - Labs CBC & Chem 7: 10/18/23 03:20 10/18/23 03:20 Labs: Abnormal Lab Results - Last 24 Hours (Table) 10/17/23 10/17/23 10/17/23 Range/Units 11:08 11:08 11:37 RBC (3.80-5.40) m/uL Hgb (11.4-16.0) gm/dL Hct (34.0-46.0) % MCV (80.0-100.0) fL MCHC (31.0-37.0) g/dL Lymphocytes # (1.0-4.8) k/uL Macrocytosis Sodium (137-145) mmol/L Carbon Dioxide (22-30) mmol/L BUN (7-17) mg/dL Creatinine (0.52-1.04) mg/dL Glucose (74-99) mg/dL POC Glucose (mg/dL) 127 H (70-110) mg/dL Calcium (8.4-10.2) mg/dL NT-Pro-B Natriuret Pep 2298 H (0-450) pg/mL Total Protein (6.3-8.2) g/dL Albumin (3.5-5.0) g/dL Procalcitonin 0.39 H (0.02-0.09) ng/mL 10/17/23 10/17/23 10/18/23 Range/Units 17:02 20:53 03:20 RBC 2.93 L (3.80-5.40) m/uL Hgb 9.5 L (11.4-16.0) gm/dL Hct 32.4 L (34.0-46.0) % MCV 110.6 H (80.0-100.0) fL MCHC 29.4 L (31.0-37.0) g/dL Lymphocytes # 0.3 L (1.0-4.8) k/uL Macrocytosis Marked A Sodium (137-145) mmol/L Carbon Dioxide (22-30) mmol/L BUN (7-17) mg/dL Creatinine (0.52-1.04) mg/dL Glucose (74-99) mg/dL POC Glucose (mg/dL) 169 H 142 H (70-110) mg/dL Calcium (8.4-10.2) mg/dL NT-Pro-B Natriuret Pep (0-450) pg/mL Total Protein (6.3-8.2) g/dL Albumin (3.5-5.0) g/dL Procalcitonin (0.02-0.09) ng/mL 10/18/23 10/18/23 Range/Units 03:20 06:05 RBC (3.80-5.40) m/uL Hgb (11.4-16.0) gm/dL Hct (34.0-46.0) % MCV (80.0-100.0) fL MCHC (31.0-37.0) g/dL Lymphocytes # (1.0-4.8) k/uL Macrocytosis Sodium 135 L (137-145) mmol/L Carbon Dioxide 17 L (22-30) mmol/L BUN 89 H (7-17) mg/dL Creatinine 3.51 H (0.52-1.04) mg/dL Glucose 157 H (74-99) mg/dL POC Glucose (mg/dL) 176 H (70-110) mg/dL Calcium 10.7 H (8.4-10.2) mg/dL NT-Pro-B Natriuret Pep (0-450) pg/mL Total Protein 6.1 L (6.3-8.2) g/dL Albumin 3.4 L (3.5-5.0) g/dL Procalcitonin (0.02-0.09) ng/mL Assessment and Plan Assessment: Acute exacerbation of COPD/asthma. The patient states that she is a lifelong non-smoker. History of osteoarthritis. History of renal failure. History of skin cancer. History of kidney stones. Osteoporosis. History of hypothyroidism. Lifelong non-smoker. Multiple other medical problems and comorbidities. Plan: Plan dated October 17, 2023. We will check a procalcitonin level. The patient states that she is a lifelong non-smoker, and has asthma. We add formoterol to her budesonide, and nebulized that twice a day. In addition, we increased her Solu-Medrol up to 60 mg every 6 hours. Will also add Singulair, 10 mg at bedtime. We will continue to follow the patient, make recommendations along the way. The patient is overall prognosis remains guarded. The patient follows with my partner, Dr. Alfredo in the office. Currently, the patient is on Rocephin. If the procalcitonin level is normal, that can be discontinued. Plan dated October 18, 2023. The patient is currently on Tessalon, Pulmicort, formoterol, Rocephin, updrafts with albuterol and ipratropium bromide, and Solu-Medrol. In addition, the patient is currently on Rocephin, and Flagyl. The patient's procalcitonin level was elevated. From the pulmonary standpoint, she is doing much better. She is on room air and saturations are 97%. I am going to discontinue the Pulmicort, and formoterol, and place her on Symbicort. Additional recommendations and suggestions are forthcoming. We will continue to follow and make recommendations. Labs, x-rays, and medications are reviewed. Prognosis is guarded. Time with Patient: Less than 30
[2023-10-18 11:57] LABS: Glucose,Whole Blood 191 mg/dL (70-110)
[2023-10-18] MEDS: CALCIUM ACETATE 667 MG TAB PO SCH (12:25)
[2023-10-18] MEDS: SEVELAMER 800 MG TAB PO SCH (12:26)
[2023-10-18] MEDS: methylPREDNISolone SOD SUCCI 40 MG/ML 1 ML VIAL IV SCH (12:27)
[2023-10-18 16:48] LABS: Glucose,Whole Blood 156 mg/dL (70-110)
[2023-10-18] MEDS: PANTOPRAZOLE 40 MG TABLET PO SCH (17:04)
[2023-10-18] MEDS: SODIUM BICARBONATE TAB 650 MG TAB PO SCH (17:04)
[2023-10-18] MEDS: traMADol 50 MG TAB PO PRN (17:15)
[2023-10-18] MEDS: SYMBICORT 160-4.5 MCG INHALER INHALATION SCH (18:21)
--- NOTE | 2023-10-18 18:29 | P.PN ---
Subjective Patient is seen for follow-up for chronic kidney disease and acute kidney injury. Currently maintained on IV Lasix. Patient reports good urine output. No complaints of shortness of breath. Urine output not accurately charted. Serum creatinine increased to 3.5 today. Ultrasound shows left renal atrophy and moderate right hydronephrosis. Patient follows with Dr. Hennessy Objective - Vital Signs Vital signs: Vital Signs Temp 97.4 F L 10/18/23 13:16 Pulse 85 10/18/23 18:21 Resp 18 10/18/23 13:16 BP 109/64 10/18/23 13:16 Pulse Ox 96 10/18/23 13:16 FiO2 Intake & Output 10/17/23 10/18/23 10/18/23 18:59 06:59 18:59 Output Total 150 700 Balance -150 -700 Weight 49.6 kg Output: Urine 150 700 Other: Voiding Method Toilet Toilet Toilet Diaper Diaper Diaper # Voids 3 1 # Bowel Movements 1 1 - Exam patient is awake, comfortable, alert oriented 3. No acute distress Examination of the heart S1 and S2 Examination of the lungs shows bilateral breath sounds are heard Abdomen is soft nontender Examination of lower extremities shows edema with chronic skin changes. INSIDE POLISHER exam grossly intact - Labs CBC & Chem 7: 10/18/23 03:20 10/18/23 03:20 Labs: Abnormal Lab Results - Last 24 Hours (Table) 10/17/23 10/17/23 10/17/23 Range/Units 11:08 11:08 20:53 RBC (3.80-5.40) m/uL Hgb (11.4-16.0) gm/dL Hct (34.0-46.0) % MCV (80.0-100.0) fL MCHC (31.0-37.0) g/dL Lymphocytes # (1.0-4.8) k/uL Macrocytosis Sodium (137-145) mmol/L Carbon Dioxide (22-30) mmol/L BUN (7-17) mg/dL Creatinine (0.52-1.04) mg/dL Glucose (74-99) mg/dL POC Glucose (mg/dL) 142 H (70-110) mg/dL Calcium (8.4-10.2) mg/dL NT-Pro-B Natriuret Pep 2298 H (0-450) pg/mL Total Protein (6.3-8.2) g/dL Albumin (3.5-5.0) g/dL Procalcitonin 0.39 H (0.02-0.09) ng/mL 10/18/23 10/18/23 10/18/23 Range/Units 03:20 03:20 06:05 RBC 2.93 L (3.80-5.40) m/uL Hgb 9.5 L (11.4-16.0) gm/dL Hct 32.4 L (34.0-46.0) % MCV 110.6 H (80.0-100.0) fL MCHC 29.4 L (31.0-37.0) g/dL Lymphocytes # 0.3 L (1.0-4.8) k/uL Macrocytosis Marked A Sodium 135 L (137-145) mmol/L Carbon Dioxide 17 L (22-30) mmol/L BUN 89 H (7-17) mg/dL Creatinine 3.51 H (0.52-1.04) mg/dL Glucose 157 H (74-99) mg/dL POC Glucose (mg/dL) 176 H (70-110) mg/dL Calcium 10.7 H (8.4-10.2) mg/dL NT-Pro-B Natriuret Pep (0-450) pg/mL Total Protein 6.1 L (6.3-8.2) g/dL Albumin 3.4 L (3.5-5.0) g/dL Procalcitonin (0.02-0.09) ng/mL 10/18/23 10/18/23 Range/Units 11:54 16:46 RBC (3.80-5.40) m/uL Hgb (11.4-16.0) gm/dL Hct (34.0-46.0) % MCV (80.0-100.0) fL MCHC (31.0-37.0) g/dL Lymphocytes # (1.0-4.8) k/uL Macrocytosis Sodium (137-145) mmol/L Carbon Dioxide (22-30) mmol/L BUN (7-17) mg/dL Creatinine (0.52-1.04) mg/dL Glucose (74-99) mg/dL POC Glucose (mg/dL) 191 H 156 H (70-110) mg/dL Calcium (8.4-10.2) mg/dL NT-Pro-B Natriuret Pep (0-450) pg/mL Total Protein (6.3-8.2) g/dL Albumin (3.5-5.0) g/dL Procalcitonin (0.02-0.09) ng/mL Assessment and Plan Assessment: 1. Acute kidney injury, ATN versus progression of underlying CK D. History of hemodialysis dependent acute kidney injury with recovery of renal function to some degree and discontinuation of hemodialysis. Patient had been refusing restarting renal replacement therapy but has agreed to it now if needed. P topher did not tolerate hemodialysis well and had multiple episodes of hypotension with poorly functioning catheters. She has been off of dialysis for about 2 years now. 2. Chronic lower extremity edema/lymphedema with recent worsening 3. COPD exacerbation maintained on IV steroids and updraft treatments. Being followed by pulmonology 4. CK D mineral bone disorder maintained on PhosLo 5. Chronic hypotension maintained on midodrine as needed. 6. Chronic right hydronephrosis with left renal atrophy Plan: Accurate I's and O's Decrease Lasix dose Consult urology Repeat labs in a.m. Check phosphorus
[2023-10-18] MEDS: MONTELUKAST 10 MG TAB PO SCH (19:42)
[2023-10-18 20:03] LABS: Glucose,Whole Blood 175 mg/dL (70-110)
[2023-10-18] MEDS: DOCUSATE 100 MG CAP PO SCH (20:16)
[2023-10-18] MEDS: FLUoxetine HCL 20 MG CAP PO SCH (20:16)
[2023-10-18] MEDS: GABAPENTIN 300 MG CAP PO SCH (20:16)
[2023-10-18] MEDS: NON FORMULARY DRUG (Methenamine Hippurate [Methenamine Hippurate] 1 GM Tablet) PO SCH (20:44)
--- NOTE | 2023-10-19 05:40 | P.PN ---
Subjective Progress Note Date: 10/18/23 HISTORY OF PRESENT ILLNESS: 78-year-old office patient with active medical history of end-stage renal disease was on hemodialysis earlier has been off dialysis for the last 2 years, been evaluated for renal transplant rejected, history of chronic anemia, diastolic congestive heart failure, COPD/asthma, hypertension, hyperlipidemia, hypothyroidism, chronic GERD, chronic neuropathy, severe balance and gait with multiple fall. Who also had significant weight loss last year who apparently was at the walk-in clinic yesterday for worsening shortness of breath dyspnea not been able to lay down flat in bed was sent to the emergency department because of significant cough tightness wheezes with significant respiratory distress was seen and evaluated in the emergency departmentFound to be in quite a bit of fluid overload with worsening peripheral edema and central venous congestion also found to have severe bronchial spasm tightness and wheezing. Was giving few updraft treatment which had helped UA was extremely positive for infection white blood cell was normal kidney function is much worse review of chest x-ray shows central venous congestion most likely failure with worsening kidney function. Recurrent symptoms patient was kept on Rocephin at this point, updraft treatment, will admit patient to the hospital patient is an end-stage renal failure required dialysis she is having significant fluid retention because of her kidney failure. Patient has no dialysis access currently. 10/18/2023 she is feeling slightly better kidney function is much worse continue to have wheezes and tightness still on Rocephin as a single antibiotic for her pneumonia still on steroid for her COPD exacerbation fluid overload and worsening kidney function did not: Different, nephrology had her on IV furosemide and patient believes she is having better urine output. Her creatinine is 2.53 GFR around 13 ultrasound shows left renal atrophy moderate right hydronephrosis she is not hypertensive today blood pressure is holding well will consult urology for the hydronephrosis and resume her home medication including her vitamin D and PhosLo. REVIEW OF SYSTEMS: CONSTITUTIONAL: Well-developed mild respiratory distress EYES: No icterus sclerae, no conjunctivitis. EARS, NOSE, MOUTH, THROAT, and FACE: No sore throat, lymphadenopathy, carotid bruits or deformity. RESPIRATORY: Positive quite bit shortness of breath with cough wheezes. CARDIOVASCULAR: Positive PND orthopnea palpitation. GASTROINTESTINAL: No Abd pain, Nausea or vomiting, no Diarrhea or constipation, No GI Bleed, no distention or masses. GENITOURINARY: Positive urinary tract infection with polyuria and end-stage on chronic kidney failure. INTEGUMENT/BREAST: Generalized arthralgia and myalgia. HEMATOLOGIC/LYMPHATIC: Negative for bleed or purpura. MUSCULOSKELTAL: Generalized myalgia with chronic lower back pain. NEURLOGICAL: No LOC, Sz or syncope, blurred vision dizziness or abnormality.. BEHAVIORAL/PSYCH: Negative. ENDOCRINE: Negative. PHYSICAL EXAMINATION: General Appearance: Alert, cooperative, mild distress. Neck HEENT: Supple, no lymphadenopathy, no thyroid enlargement, no carotid bruits. Lungs: Decreased breath sound bilaterally with fine rhonchi positive inspiratory expiratory wheezes with tightness. Chest Wall: Decreased expansion with deep inspiration no tenderness and no deformity was found on exam, no costochondral pain or discomfort. Heart: Regular rate and rhythm, S1, S2 positive S3 positive systolic murmur. Back: Severe scoliosis and kyphosis with significant CVA tenderness. Abdomen: Soft, non-tender, bowel sounds active all four quadrants, no masses, no organomegaly. Extremities: Generalized arthralgia has significant pain and discomfort both hips. 2+ edema decreased pulse bilaterally. Skin: Skin color, texture, tugor normal, no rashes or lesions. Neurologic: Alert oriented slight confusion, cranial nerves II to XII intact positive generalized weakness with abnormal balance and gait. ASSESSMENT AND PLAN: _Acute respiratory failure: Much better so far oxygenation has improved and she is in less dyspnea than before. _Severe fluid overload secondary to end-stage renal failure required dialysis patient is edematous with 2+ edema not been able to diurese enough fluid despite making enough urine output at this point, will continue IV furosemide but lesser dose. _COPD exacerbation: Resume DuoNeb along with Pulmicort pulmonary consultation be done patient be on a smaller dose of steroid as well continue O2. _Urinary tract infection and most likely early sepsis: UA is very positive, white blood cell 15,600 left shifted no lactic acid done which will be done at this point, blood culture and urine culture will be done as well. Continue Rocephin for now till the culture is back. _Severe bronchitis with early pneumonia: Still showing sign of pneumonia with severe bronchitis remain on Rocephin at this point as a single antibiotics for infection. _Hypothyroidism: Resume levothyroxine at 150 mcg daily. _Severe GERD: Remain on omeprazole 40 mg a_twice a day. _Hypertension: Has been on midodrine 5 mg twice a day resume medication. _Chronic depression: Has been on Prozac 20 mg daily._ _Chronic anemia: Mostly iron deficiency and continue Procrit along with iron supplement. _Overflow incontinence: Has been on Myrbetriq 25 mg daily. Debility: Significant decrease mobility to use the time to do physical therapy with patient At this point to help patient. Patient still target to return home we will ask social worker aide for any help might be beneficial. Objective - Vital Signs Vital signs: Vital Signs Temp 97.5 F L 10/18/23 01:21 Pulse 75 10/18/23 01:21 Resp 16 10/18/23 01:21 BP 95/59 10/18/23 01:21 Pulse Ox 92 L 10/18/23 01:21 FiO2 Intake & Output 10/17/23 10/17/23 10/18/23 06:59 18:59 06:59 Output Total 150 Balance -150 Weight 49.6 kg Output: Urine 150 Other: Voiding Method Toilet Toilet Diaper Diaper # Voids 3 1 # Bowel Movements 1 - Labs CBC & Chem 7: 10/18/23 03:20 10/18/23 03:20 Labs: Abnormal Lab Results - Last 24 Hours (Table) 10/16/23 10/17/23 10/17/23 Range/Units 23:56 04:15 11:08 RBC (3.80-5.40) m/uL Hgb (11.4-16.0) gm/dL Hct (34.0-46.0) % MCV (80.0-100.0) fL MCHC (31.0-37.0) g/dL Neutrophils # 12.5 H (1.3-7.7) k/uL Lymphocytes # (1.0-4.8) k/uL Macrocytosis Sodium (137-145) mmol/L Carbon Dioxide (22-30) mmol/L BUN (7-17) mg/dL Creatinine (0.52-1.04) mg/dL Glucose (74-99) mg/dL POC Glucose (mg/dL) (70-110) mg/dL Calcium (8.4-10.2) mg/dL NT-Pro-B Natriuret Pep 2298 H (0-450) pg/mL Total Protein (6.3-8.2) g/dL Albumin (3.5-5.0) g/dL Procalcitonin (0.02-0.09) ng/mL Ur Leukocyte Esterase Small H (Negative) Urine WBC 9 H (0-5) /hpf Urine Bacteria Many H (None) /hpf Urine Mucus Rare H (None) /hpf 10/17/23 10/17/23 10/17/23 Range/Units 11:08 11:37 17:02 RBC (3.80-5.40) m/uL Hgb (11.4-16.0) gm/dL Hct (34.0-46.0) % MCV (80.0-100.0) fL MCHC (31.0-37.0) g/dL Neutrophils # (1.3-7.7) k/uL Lymphocytes # (1.0-4.8) k/uL Macrocytosis Sodium (137-145) mmol/L Carbon Dioxide (22-30) mmol/L BUN (7-17) mg/dL Creatinine (0.52-1.04) mg/dL Glucose (74-99) mg/dL POC Glucose (mg/dL) 127 H 169 H (70-110) mg/dL Calcium (8.4-10.2) mg/dL NT-Pro-B Natriuret Pep (0-450) pg/mL Total Protein (6.3-8.2) g/dL Albumin (3.5-5.0) g/dL Procalcitonin 0.39 H (0.02-0.09) ng/mL Ur Leukocyte Esterase (Negative) Urine WBC (0-5) /hpf Urine Bacteria (None) /hpf Urine Mucus (None) /hpf 10/17/23 10/18/23 10/18/23 Range/Units 20:53 03:20 03:20 RBC 2.93 L (3.80-5.40) m/uL Hgb 9.5 L (11.4-16.0) gm/dL Hct 32.4 L (34.0-46.0) % MCV 110.6 H (80.0-100.0) fL MCHC 29.4 L (31.0-37.0) g/dL Neutrophils # (1.3-7.7) k/uL Lymphocytes # 0.3 L (1.0-4.8) k/uL Macrocytosis Marked A Sodium 135 L (137-145) mmol/L Carbon Dioxide 17 L (22-30) mmol/L BUN 89 H (7-17) mg/dL Creatinine 3.51 H (0.52-1.04) mg/dL Glucose 157 H (74-99) mg/dL POC Glucose (mg/dL) 142 H (70-110) mg/dL Calcium 10.7 H (8.4-10.2) mg/dL NT-Pro-B Natriuret Pep (0-450) pg/mL Total Protein 6.1 L (6.3-8.2) g/dL Albumin 3.4 L (3.5-5.0) g/dL Procalcitonin (0.02-0.09) ng/mL Ur Leukocyte Esterase (Negative) Urine WBC (0-5) /hpf Urine Bacteria (None) /hpf Urine Mucus (None) /hpf 10/18/23 Range/Units 06:05 RBC (3.80-5.40) m/uL Hgb (11.4-16.0) gm/dL Hct (34.0-46.0) % MCV (80.0-100.0) fL MCHC (31.0-37.0) g/dL Neutrophils # (1.3-7.7) k/uL Lymphocytes # (1.0-4.8) k/uL Macrocytosis Sodium (137-145) mmol/L Carbon Dioxide (22-30) mmol/L BUN (7-17) mg/dL Creatinine (0.52-1.04) mg/dL Glucose (74-99) mg/dL POC Glucose (mg/dL) 176 H (70-110) mg/dL Calcium (8.4-10.2) mg/dL NT-Pro-B Natriuret Pep (0-450) pg/mL Total Protein (6.3-8.2) g/dL Albumin (3.5-5.0) g/dL Procalcitonin (0.02-0.09) ng/mL Ur Leukocyte Esterase (Negative) Urine WBC (0-5) /hpf Urine Bacteria (None) /hpf Urine Mucus (None) /hpf
[2023-10-19 06:05] LABS: Glucose,Whole Blood 138 mg/dL (70-110)
[2023-10-19] MEDS: LEVOTHYROXINE 75 MCG TAB PO SCH (06:05)
[2023-10-19] MEDS: ASCORBIC ACID 500 MG TAB PO SCH (08:36)
[2023-10-19] MEDS: MAGNESIUM OXIDE 400 MG TAB PO SCH (08:36)
[2023-10-19] MEDS: POTASSIUM CHLORIDE ER 10 MEQ TAB.ER.PRT PO SCH (08:36)
[2023-10-19] MEDS: predniSONE 20 MG TAB PO SCH (08:36)
[2023-10-19] MEDS: LORATADINE 10 MG TAB PO SCH (08:36)
[2023-10-19] MEDS: metroNIDAZOLE 250 MG TABLET PO SCH (08:37)
[2023-10-19] MEDS: NON FORMULARY DRUG (Mirabegron [Myrbetriq] 25 MG Tab.Er.24h) PO SCH (08:45)
[2023-10-19] MEDS: NON FORMULARY DRUG (Turmeric Root Extract [Turmeric] 500 MG Tablet) PO SCH (08:45)
[2023-10-19 09:08] LABS: HCT 32.9 % (34.0-46.0); HGB 9.6 gm/dL (11.4-16.0); Hypochromasia Marked; MCH 32.9 pg (25.0-35.0); MCHC 29.2 g/dL (31.0-37.0); MCV 112.5 fL (80.0-100.0); Macrocytosis Marked; Mean Platelet Volume 8.3; Platelet Count 255 k/uL (150-450); RBC 2.92 m/uL (3.80-5.40); RDW 13.8 % (11.5-15.5)
[2023-10-19 09:18] LABS: ALT 24 U/L (4-34); AST 23 U/L (14-36); African American GFR (CKD) 13 (>60 ml/min/1.73 sqM); Albumin 3.7 g/dL (3.5-5.0); Alkaline Phosphatase 59 U/L (38-126); Anion Gap 18 mmol/L; Calcium 10.9 mg/dL (8.4-10.2); Carbon Dioxide 16 mmol/L (22-30); Chloride 97 mmol/L (98-107); Glucose 106 mg/dL (74-99); Non-African American GFR(CKD) 11 (>60 ml/min/1.73 sqM); Phosphorus 6.4 mg/dL (2.5-4.5); Potassium 3.9 mmol/L (3.5-5.1); Sodium 131 mmol/L (137-145); Total Bilirubin 0.4 mg/dL (0.2-1.3); Total Protein 6.5 g/dL (6.3-8.2)
[2023-10-19 09:21] LABS: Blood Urea Nitrogen 111 mg/dL (7-17)
--- NOTE | 2023-10-19 09:42 | P.PN ---
Subjective Progress Note Date: 10/19/23 Principal diagnosis: COPD exacerbation. Pulmonary consultation dated October 17, 2023. 78-year-old female with a history of underlying severe chronic bronchial asthma/COPD. The patient apparently is a lifelong non-smoker. She presented to the emergency department, on October 15, complaining of increasing shortness of breath, cough, congestion, and difficulty in breathing. She apparently had some fever and chills, especially, the night before she was admitted. She states that she started getting sick on Mother's Day, but was even not well before then. Currently, the patient is not receiving any IV fluids. Her room air saturations are 99%. At home, she is on DuoNebs, albuterol inhaler, Wixela, and Singulair. Current labs include a white count 15.6, hemoglobin 9.6, hematocrit 32.5, and a normal platelet count. Sodium 132, potassium 4, chlorides 105, CO2 16, BUN 95, and creatinine 3.28. N-terminal proBNP is 2840. Albumin is 3.4. Calcium 10.3. Urine shows it to be positive for leukocyte Estrace, and there was 9 WBCs, in the urine, and many bacteria. She tested negative for influenza A, influenza B, RSV, and coronavirus. Chest x-ray shows changes of COPD, w ithout an acute cardiopulmonary process. Progress note dated October 18, 2023. 78-year-old female with a history of severe chronic bronchial asthma/COPD. The patient was seen in consultation yesterday. Please see the note above. Today, she is seen in room 154, observation unit. She is currently on room air. She is not receiving any IV fluids. The patient is apparently doing much better. Current labs include a white count 7.3, hemoglobin 9.5, hematocrit 32.4, and platelet count that was normal. Sodium 135, potassium 3.8, chlorides 105, CO2 17, anion gap 13, BUN 89, and creatinine 3.51. Glucose 176. Albumin 3.4. Progress note dated October 19, 2023. 78-year-old female seen today in room 154. She was admitted with a diagnosis of asthma exacerbation. Clinically, she is feeling better today. She is on room air. Not receiving any IV fluids. Her Solu-Medrol could be converted to pred nisone 40 mg a day. She should follow-up with my partner, who she sees in the office for her COPD/asthma. She had an uneventful night according to the nurse. She is feeling a bit dizzy. Today's labs include a white count 16, hemoglobin 9.6, hematocrit 32.9, and a normal platelet count. Sodium 131, potassium 3.9, chlorides 97, CO2 16, anion gap 18, BUN 111, and creatinine 3.71. The patient does have an anion gap metabolic acidosis, secondary to her renal failure. Calcium is 10.9. Phosphorus is 6.4. Objective - Vital Signs Vital signs: Vital Signs Temp 97.6 F 10/19/23 02:00 Pulse 68 10/19/23 08:48 Resp 17 10/19/23 02:00 BP 106/62 10/19/23 02:00 Pulse Ox 95 10/19/23 02:00 FiO2 Intake & Output 10/18/23 10/19/23 10/19/23 18:59 06:59 18:59 Intake Total 1080 Output Total 700 900 Balance -700 180 Weight 50.1 kg Intake: Oral 1080 Output: Urine 700 900 Other: Voiding Method Toilet Toilet Diaper Diaper # Bowel Movements 1 1 - Exam No acute distress, oriented 3. No conversational dyspnea. Currently on room air. HEENT examination is grossly unremarkable. Mucous membranes are moist. No oral lesions. Neck supple. Full range of motion. No adenopathy thyromegaly or neck vein distention. Cardiovascular examination reveals regular rhythm rate. S1-S2 normal. No S3 or S4. No discernible murmur noted. Heart rate 68 bpm. Heart sounds are distant. Lungs reveal scattered bilateral rhonchi. No wheezes. No crackles. Breath sounds equal. Breath sounds are improved. Room air saturation 96%. Abdomen soft bowel sounds are heard. No masses or tenderness. Extremities are intact. No cyanosis clubbing or edema. Skin is without rash or lesion. Neurologic examination is brief but nonfocal. - Labs CBC & Chem 7: 10/19/23 08:22 10/19/23 08:22 Labs: Abnormal Lab Results - Last 24 Hours (Table) 10/18/23 10/18/23 10/18/23 Range/Units 11:54 16:46 19:56 WBC (3.8-10.6) k/uL RBC (3.80-5.40) m/uL Hgb (11.4-16.0) gm/dL Hct (34.0-46.0) % MCV (80.0-100.0) fL MCHC (31.0-37.0) g/dL Macrocytosis Sodium (137-145) mmol/L Chloride (98-107) mmol/L Carbon Dioxide (22-30) mmol/L BUN (7-17) mg/dL Creatinine (0.52-1.04) mg/dL Glucose (74-99) mg/dL POC Glucose (mg/dL) 191 H 156 H 175 H (70-110) mg/dL Calcium (8.4-10.2) mg/dL Phosphorus (2.5-4.5) mg/dL 10/19/23 10/19/23 10/19/23 Range/Units 06:03 08:22 08:22 WBC 16.0 H (3.8-10.6) k/uL RBC 2.92 L (3.80-5.40) m/uL Hgb 9.6 L (11.4-16.0) gm/dL Hct 32.9 L (34.0-46.0) % MCV 112.5 H (80.0-100.0) fL MCHC 29.2 L (31.0-37.0) g/dL Macrocytosis Marked A Sodium 131 L (137-145) mmol/L Chloride 97 L (98-107) mmol/L Carbon Dioxide 16 L (22-30) mmol/L BUN 111 H* (7-17) mg/dL Creatinine 3.71 H (0.52-1.04) mg/dL Glucose 106 H (74-99) mg/dL POC Glucose (mg/dL) 138 H (70-110) mg/dL Calcium 10.9 H (8.4-10.2) mg/dL Phosphorus 6.4 H (2.5-4.5) mg/dL Microbiology - Last 24 Hours (Table) 10/17/23 11:08 Blood Culture - Preliminary Blood Assessment and Plan Assessment: Acute exacerbation of COPD/asthma. History of osteoarthritis. History of renal failure. Anion gap metabolic acidosis, secondary to chronic renal failure. History of skin cancer. History of kidney stones. Osteoporosis. History of hypothyroidism. Lifelong non-smoker. Multiple other medical problems and comorbidities. Plan: Plan dated October 17, 2023. We will check a procalcitonin level. The patient states that she is a lifelong non-smoker, and has asthma. We add formoterol to her budesonide, and nebulized that twice a day. In addition, we increased her Solu-Medrol up to 60 mg every 6 hours. Will also add Singulair, 10 mg at bedtime. We will continue to follow the patient, make recommendations along the way. The patient is overall prognosis remains guarded. The patient follows with my partner, Dr. Alfredo in the office. Currently, the patient is on Rocephin. If the procalcitonin level is normal, that can be discontinued. Plan dated October 18, 2023. The patient is currently on Tessalon, Pulmicort, formoterol, Rocephin, updrafts with albuterol and ipratropium bromide, and Solu-Medrol. In addition, the patient is currently on Rocephin, and Flagyl. The patient's procalcitonin level was elevated. From the pulmonary standpoint, she is doing much better. She is on room air and saturations are 97%. I am going to discontinue the Pulmicort, and formoterol, and place her on Symbicort. Additional recommendations and suggestions are forthcoming. We will continue to follow and make recommendations. Labs, x-rays, and medications are reviewed. Prognosis is guarded. Plan dated October 19, 2023. The patient is doing well from the pulmonary standpoint. In fact, from the pulmonary standpoint exclusively, the patient could be considered for discharge. The patient's Solu-Medrol is converted to prednisone 40 mg a day. The patient should follow-up in my office, with her primary perforating machine operator, after discharge. Labs, x-rays, and medications are reviewed. The patient does have a bit of a dry cough. She is feeling much improved. She is never required supplemental oxygen. Additional recommendations and suggestions are forthcoming. Labs, x- rays, and all medications are reviewed. Time with Patient: Less than 30
--- NOTE | 2023-10-19 11:40 | P.PN ---
Subjective Patient is seen for follow-up for chronic kidney disease and acute kidney injury. Currently maintained on IV Lasix. Patient reports good urine output. it is not charted accurately again. No complaints of shortness of breath. complaining of dizziness this morning. Blood pressure is on the lower side. O2 sats 95% on room air. Serum creatinine increased to 3.7 today. Ultrasound shows left renal atrophy and moderate right hydronephrosis. Patient follows with Dr. Hennessy. neurology consult is pending. Objective - Vital Signs Vital signs: Vital Signs Temp 97.6 F 10/19/23 02:00 Pulse 68 10/19/23 08:48 Resp 17 10/19/23 02:00 BP 106/62 10/19/23 02:00 Pulse Ox 95 10/19/23 02:00 FiO2 Intake & Output 10/18/23 10/19/23 10/19/23 18:59 06:59 18:59 Intake Total 1080 Output Total 700 900 Balance -700 180 Weight 50.1 kg Intake: Oral 1080 Output: Urine 700 900 Other: Voiding Method Toilet Toilet Diaper Diaper # Bowel Movements 1 1 - Exam patient is awake, comfortable, alert oriented 3. No acute distress Examination of the heart S1 and S2 Examination of the lungs shows bilateral breath sounds are heard Abdomen is soft nontender Examination of lower extremities shows edema with chronic skin changes. [employer] exam grossly intact - Labs CBC & Chem 7: 10/19/23 08:22 10/19/23 08:22 Labs: Abnormal Lab Results - Last 24 Hours (Table) 10/18/23 10/18/23 10/18/23 Range/Units 11:54 16:46 19:56 WBC (3.8-10.6) k/uL RBC (3.80-5.40) m/uL Hgb (11.4-16.0) gm/dL Hct (34.0-46.0) % MCV (80.0-100.0) fL MCHC (31.0-37.0) g/dL Macrocytosis Sodium (137-145) mmol/L Chloride (98-107) mmol/L Carbon Dioxide (22-30) mmol/L BUN (7-17) mg/dL Creatinine (0.52-1.04) mg/dL Glucose (74-99) mg/dL POC Glucose (mg/dL) 191 H 156 H 175 H (70-110) mg/dL Calcium (8.4-10.2) mg/dL Phosphorus (2.5-4.5) mg/dL 10/19/23 10/19/23 10/19/23 Range/Units 06:03 08:22 08:22 WBC 16.0 H (3.8-10.6) k/uL RBC 2.92 L (3.80-5.40) m/uL Hgb 9.6 L (11.4-16.0) gm/dL Hct 32.9 L (34.0-46.0) % MCV 112.5 H (80.0-100.0) fL MCHC 29.2 L (31.0-37.0) g/dL Macrocytosis Marked A Sodium 131 L (137-145) mmol/L Chloride 97 L (98-107) mmol/L Carbon Dioxide 16 L (22-30) mmol/L BUN 111 H* (7-17) mg/dL Creatinine 3.71 H (0.52-1.04) mg/dL Glucose 106 H (74-99) mg/dL POC Glucose (mg/dL) 138 H (70-110) mg/dL Calcium 10.9 H (8.4-10.2) mg/dL Phosphorus 6.4 H (2.5-4.5) mg/dL Microbiology - Last 24 Hours (Table) 10/17/23 11:08 Blood Culture - Preliminary Blood Assessment and Plan Assessment: 1. Acute kidney injury, ATN versus progression of underlying CK D. History of hemodialysis dependent acute kidney injury with recovery of renal function to some degree and discontinuation of hemodialysis. Patient had been refusing resta rting renal replacement therapy but has agreed to it now if needed. Patient did not tolerate hemodialysis well and had multiple episodes of hypotension with poorly functioning catheters. She has been off of dialysis for about 2 years now. Also a component of acute kidney injury from hypercalcemia. 2. Chronic lower extremity edema/lymphedema with recent worsening, status post diuresis. Now improved. 3. COPD exacerbation maintained on IV steroids and updraft treatments. Being followed by pulmonology 4. CK D mineral bone disorder maintained on PhosLo and Renvela. Calcium is elevated therefore Rocaltrol will be discontinued. 5. Chronic hypotension maintained on midodrine as needed. 6. Chronic right hydronephrosis with left renal atrophy 7. Hypercalcemia in the setting of use of calcium based binder is as well as calcitriol. Plan: DC IV Lasix Switch to torsemide weight urology recommendations regarding the hydronephrosis in the setting of solitary functioning kidney. Repeat labs in a.m. DC calcitriol Repeat labs in a.m.
[2023-10-19 11:44] LABS: Glucose,Whole Blood 137 mg/dL (70-110)
[2023-10-19] MEDS ORDERED: BUTALB/APAP/CAFF 50-325-40MG TAB PO PRN (11:57)
--- NOTE | 2023-10-19 12:17 | XR ---
EXAMINATION TYPE: XR chest 1V DATE OF EXAM: 10/19/2023 COMPARISON: 10/16/2023 HISTORY: 78-year-old female with CHF TECHNIQUE: Single frontal view of the chest is obtained. FINDINGS: Heart normal size. Atherosclerotic calcifications. Diffuse interstitial density. Postopera tive change bilateral upper quadrants. No sizable pleural effusion on the frontal view. IMPRESSION: Interstitial densities are present and could reflect bronchitis or asthma. The heart orantes s not appear particularly enlarged. Further clinical correlation recommended.
--- NOTE | 2023-10-19 16:02 | P.GSCN ---
History of Present Illness Consult date: 10/19/23 Reason for Consult: Hydronephrosis History of present illness: This is a 78-year-old female admitted to the hospital with COPD exacerbation. U rologist consulted for right-sided hydronephrosis. She is a patient well-known to Dr. Copeland has chronic right-sided hydronephrosis dating back to at least 2019, her hydronephrosis has been stable. She denies any gross hematuria or dysuria. She is having very mild right upper quadrant and flank pain which is chronic. Denies any nausea or vomiting. Her creatinine is at 3.7 her baseline is around 2.5-3, she did require hemodialysis at some point for her CKD. Review of Systems - Constitutional Denies fever, Denies weight loss - EENT Ears, nose, mouth and throat: Denies dysphagia - Cardiovascular Reports as per HPI - Respiratory Denies cough, Denies 7 - Gastrointestinal Reports as per HPI - Genitourinary Genitourinary: Denies dysuria, Denies flank pain Past Medical History Past Medical History: Asthma, Cancer, COPD, Osteoarthritis (OA), Renal Disease, Thyroid Disorder Additional Past Medical History / Comment(s): kidney stones and UTI,steroid injection October 2018 hx lymphedema, hx pulmonary fibrosis, hx graves,hx rt foot torn ligaments,hx kidney stones, hx osteoporosis,hypotension, wears oxygen if feels like she needs it; vitamin D deficiency, hypocalcemia,. 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 PER [facility] NOT [facility] MDRO Source:: Urine Past Surgical History: Bariatric Surgery Additional Past Surgical History / Comment(s): hx bariatric surgery-Kye En Y,lung biopsy,radioactive iodine-tx thyroid,rectal and bladder suspensions,vaginal surgery as a child,partha carpel tunnel,rt knee meniscus repair,D&C x3, left arm fistula 02/08/19 (not working), left broken wrist, broken right wrist Past Anesthesia/Blood Transfusion Reactions: Previous Problems w/ Anesthesia, Postoperative Nausea & Vomiting (PONV) Additional Past Anesthesia/Blood Transfusion Reaction / Comm: decrease bp with anesthesia,no problems with prior blood transfusion Smoking Status: Never smoker - Past Family History Father Family Medical History: Pulmonary Embolus Additional Family Medical History / Comment(s): . Mother Family Medical History: Cancer Additional Family Medical History / Comment(s): . Sister(s) Family Medical History: Cancer Additional Family Medical History / Comment(s): . Daughter(s) Additional Family Medical History / Comment(s): lymphedema in legs Brother(s) Family Medical History: Cancer Additional Family Medical History / Comment(s): skin cancer Medications and Allergies Home Medications Medication Instructions Recorded Confirmed Type RX: FLUoxetine HCL [PROzac] 20 mg PO BID 08/23/18 10/17/23 History RX: Montelukast [Singulair] 10 mg PO HS 08/23/18 10/17/23 History RX: Omeprazole 40 mg PO AC-BID 11/19/18 10/17/23 History RX: Sodium Bicarbonate Tab 1,950 mg PO TID 07/22/19 10/17/23 History RX: traMADol HCL [Ultram] 50 mg PO Q8H PRN 07/22/19 10/17/23 History RX: Loratadine 10 mg PO DAILY 12/06/19 10/17/23 History RX: Magnesium Chloride [Mag64] 64 mg PO DAILY 12/06/19 10/17/23 History RX: Methenamine Hippurate 1 gm PO BID 01/25/21 10/17/23 History RX: Mirabegron [Myrbetriq] 25 mg PO DAILY 01/25/21 10/17/23 History RX: Albuterol Inhaler [Ventolin 2 puff INHALATION RT-Q6H PRN 02/07/23 10/17/23 History Hfa Inhaler] RX: Benzonatate [Tessalon Perle] 200 mg PO TID PRN 02/07/23 10/17/23 History RX: Docusate [Colace] 200 mg PO BID 02/07/23 10/17/23 History RX: Levothyroxine Sodium 150 mcg PO DAILY 02/07/23 10/17/23 History [Synthroid] RX: Potassium Chloride [Klor-Con 8] 8 meq PO DAILY 02/07/23 10/17/23 History RX: calcitrioL 1.5 mcg PO BID 02/07/23 10/17/23 History Albuterol Nebulized [Ventolin 2.5 mg INHALATION RT-Q6H PRN 10/17/23 10/17/23 History Nebulized] Ascorbic Acid [Vitamin C] 1,000 mg PO DAILY 10/17/23 10/17/23 History Calcium Acetate [Phoslo] 1,334 mg PO BID PRN 10/17/23 10/17/23 History Calcium Acetate [Phoslo] 2,004 mg PO AC-TID 10/17/23 10/17/23 History Ergocalciferol [Vitamin D2 (1250 1,250 mcg PO DIRECTED 10/17/23 10/17/23 History Mcg = 34105 Iu)] Gabapentin [Neurontin] 300 mg PO BID 10/17/23 10/17/23 History Prolia (Unknown Dose) 60 mg IM Q180D 10/17/23 10/17/23 History RX: Bumetanide [BUMEX] 1 mg PO DAILY 10/17/23 10/17/23 History RX: Midodrine [ProAmatine] 5 mg PO DAILY PRN 10/17/23 10/17/23 History Sevelamer [Renvela] 800 mg PO AC-TID 10/17/23 10/17/23 History Turmeric Root Extract [Turmeric] 500 mg PO DAILY 10/17/23 10/17/23 History metroNIDAZOLE [Flagyl] 250 mg PO DAILY 10/17/23 10/17/23 History Allergies Allergy/AdvReac Type Severity Reaction Status Date / Time adhesive tape Allergy Rash/Hives Verified 10/17/23 08:41 Sulfa (Sulfonamide Allergy Itching Verified 10/17/23 08:41 Antibiotics) codeine AdvReac Nausea Verified 10/17/23 08:41 epoetin beta [From Mircera] AdvReac Unknown Verified 10/17/23 08:41 tetracycline AdvReac Nausea & Verified 10/17/23 08:41 Vomiting Surgical - Exam Vital Signs Temp Pulse Resp BP Pulse Ox 98.6 F 83 18 96/61 96 10/16/23 18:08 10/16/23 18:08 10/16/23 18:08 10/16/23 18:08 10/16/23 18:08 - General no distress, no pain - Eyes normal ocular movement, no pale - ENT normal nares, normal mucosa - Respiratory normal expansion, normal respiratory effort - Abdomen Abdomen: soft, non tender - Psychiatric oriented to time, oriented to person, oriented to place Results - Labs 10/19/23 08:22 10/19/23 08:22 Abnormal Lab Results - Last 24 Hours (Table) 10/18/23 10/18/23 10/19/23 Range/Units 16:46 19:56 06:03 WBC (3.8-10.6) k/uL RBC (3.80-5.40) m/uL Hgb (11.4-16.0) gm/dL Hct (34.0-46.0) % MCV (80.0-100.0) fL MCHC (31.0-37.0) g/dL Macrocytosis Sodium (137-145) mmol/L Chloride (98-107) mmol/L Carbon Dioxide (22-30) mmol/L BUN (7-17) mg/dL Creatinine (0.52-1.04) mg/dL Glucose (74-99) mg/dL POC Glucose (mg/dL) 156 H 175 H 138 H (70-110) mg/dL Calcium (8.4-10.2) mg/dL Phosphorus (2.5-4.5) mg/dL 10/19/23 10/19/23 10/19/23 Range/Units 08:22 08:22 11:42 WBC 16.0 H (3.8-10.6) k/uL RBC 2.92 L (3.80-5.40) m/uL Hgb 9.6 L (11.4-16.0) gm/dL Hct 32.9 L (34.0-46.0) % MCV 112.5 H (80.0-100.0) fL MCHC 29.2 L (31.0-37.0) g/dL Macrocytosis Marked A Sodium 131 L (137-145) mmol/L Chloride 97 L (98-107) mmol/L Carbon Dioxide 16 L (22-30) mmol/L BUN 111 H* (7-17) mg/dL Creatinine 3.71 H (0.52-1.04) mg/dL Glucose 106 H (74-99) mg/dL POC Glucose (mg/dL) 137 H (70-110) mg/dL Calcium 10.9 H (8.4-10.2) mg/dL Phosphorus 6.4 H (2.5-4.5) mg/dL Microbiology - Last 24 Hours (Table) 10/17/23 11:08 Blood Culture - Preliminary Blood Diabetes panel 10/19/23 Range/Units 08:22 Sodium 131 L (137-145) mmol/L Potassium 3.9 (3.5-5.1) mmol/L Chloride 97 L (98-107) mmol/L Carbon Dioxide 16 L (22-30) mmol/L BUN 111 H* (7-17) mg/dL Creatinine 3.71 H (0.52-1.04) mg/dL Glucose 106 H (74-99) mg/dL Calcium 10.9 H (8.4-10.2) mg/dL AST 23 (14-36) U/L ALT 24 (4-34) U/L Alkaline Phosphatase 59 (38-126) U/L Total Protein 6.5 (6.3-8.2) g/dL Albumin 3.7 (3.5-5.0) g/dL Calcium panel 10/19/23 Range/Units 08:22 Calcium 10.9 H (8.4-10.2) mg/dL Phosphorus 6.4 H (2.5-4.5) mg/dL Albumin 3.7 (3.5-5.0) g/dL Pituitary panel 10/19/23 Range/Units 08:22 Sodium 131 L (137-145) mmol/L Potassium 3.9 (3.5-5.1) mmol/L Chloride 97 L (98-107) mmol/L Carbon Dioxide 16 L (22-30) mmol/L BUN 111 H* (7-17) mg/dL Creatinine 3.71 H (0.52-1.04) mg/dL Glucose 106 H (74-99) mg/dL Calcium 10.9 H (8.4-10.2) mg/dL Adrenal panel 10/19/23 Range/Units 08:22 Sodium 131 L (137-145) mmol/L Potassium 3.9 (3.5-5.1) mmol/L Chloride 97 L (98-107) mmol/L Carbon Dioxide 16 L (22-30) mmol/L BUN 111 H* (7-17) mg/dL Creatinine 3.71 H (0.52-1.04) mg/dL Glucose 106 H (74-99) mg/dL Calcium 10.9 H (8.4-10.2) mg/dL Total Bilirubin 0.4 (0.2-1.3) mg/dL AST 23 (14-36) U/L ALT 24 (4-34) U/L Alkaline Phosphatase 59 (38-126) U/L Total Protein 6.5 (6.3-8.2) g/dL Albumin 3.7 (3.5-5.0) g/dL Assessment and Plan Assessment: 78-year-old female history of chronic right-sided hydronephrosis her creatinine is at 3.7 from baseline 2.5-3, hydronephrosis is been present since at least 2019, this is a chronic finding and no change. This is unlikely contributing to her worsening renal function given the chronic nature of this. No acute surgical intervention from urology standpoint at this point she is unlikely to benefit from the stent.
[2023-10-19 17:06] LABS: Glucose,Whole Blood 120 mg/dL (70-110)
--- NOTE | 2023-10-19 18:32 | P.PN ---
Subjective Progress Note Date: 10/19/23 HISTORY OF PRESENT ILLNESS: 78-year-old office patient with active medical history of end-stage renal disease was on hemodialysis earlier has been off dialysis for the last 2 years, been evaluated for renal transplant rejected, history of chronic anemia, diastolic congestive heart failure, COPD/asthma, hypertension, hyperlipidemia, hypothyroidism, chronic GERD, chronic neuropathy, severe balance and gait with multiple fall. Who also had significant weight loss last year who apparently was at the walk-in clinic yesterday for worsening shortness of breath dyspnea not been able to lay down flat in bed was sent to the emergency department because of significant cough tightness wheezes with significant respiratory distress was seen and evaluated in the emergency departmentFound to be in quite a bit of fluid overload with worsening peripheral edema and central venous congestion also found to have severe bronchial spasm tightness and wheezing. Was giving few updraft treatment which had helped UA was extremely positive for infection white blood cell was normal kidney function is much worse review of chest x-ray shows central venous congestion most likely failure with worsening kidney function. Recurrent symptoms patient was kept on Rocephin at this point, updraft treatment, will admit patient to the hospital patient is an end-stage renal failure required dialysis she is having significant fluid retention because of her kidney failure. Patient has no dialysis access currently. 10/18/2023 she is feeling slightly better kidney function is much worse continue to have wheezes and tightness still on Rocephin as a single antibiotic for her pneumonia still on steroid for her COPD exacerbation fluid overload and worsening kidney function did not: Different, nephrology had her on IV furosemide and patient believes she is having better urine output. Her creatinine is 2.53 GFR around 13 ultrasound shows left renal atrophy moderate right hydronephrosis she is not hypertensive today blood pressure is holding well will consult urology for the hydronephrosis and resume her home medication including her vitamin D and PhosLo. 10/19/2023: She was found to have hydronephrosis of the right side was seen urology today claimed that hydronephrosis has not been exist since 2019 this is a chronic finding and no change in likely to contribute to the worsening of renal function at this point. No acute surgical intervention required. Nephrology was with a slight decline in kidney function with creatinine is up to 3.71 GFR is down to 13 DC IV Lasix switched to torsemide and waiting for urology to make a conclusion on hydronephrosis repeat lab in the morning and DC calcitriol. Patient having + and symptom of shortness of breath and cough compared to before. Pulmonary najera with exacerbation of her COPD/asthma doing much better on current medication management Solu-Medrol is converted to prednisone 40 mg and he wanted to follow-up in the office upon discharge. Overall clinically patient is feeling much better compared to before has been having less sign and symptom of shortness of breath she still have anasarca and slight edema with improved compared to before. REVIEW OF SYSTEMS: CONSTITUTIONAL: Well-developed mild respiratory distress EYES: No icterus sclerae, no conjunctivitis. EARS, NOSE, MOUTH, THROAT, and FACE: No sore throat, lymphadenopathy, carotid bruits or deformity. RESPIRATORY: Positive quite bit shortness of breath with cough wheezes. CARDIOVASCULAR: Positive PND orthopnea palpitation. GASTROINTESTINAL: No Abd pain, Nausea or vomiting, no Diarrhea or constipation, No GI Bleed, no distention or masses. GENITOURINARY: Positive urinary tract infection with polyuria and end-stage on chronic kidney failure. INTEGUMENT/BREAST: Generalized arthralgia and myalgia. HEMATOLOGIC/LYMPHATIC: Negative for bleed or purpura. MUSCULOSKELTAL: Generalized myalgia with chronic lower back pain. NEURLOGICAL: No LOC, Sz or syncope, blurred vision dizziness or abnormality.. BEHAVIORAL/PSYCH: Negative. ENDOCRINE: Negative. PHYSICAL EXAMINATION: General Appearance: Alert, cooperative, mild distress. Neck HEENT: Supple, no lymphadenopathy, no thyroid enlargement, no carotid bruits. Lungs: Decreased breath sound bilaterally with fine rhonchi positive inspiratory expiratory wheezes with tightness. Chest Wall: Decreased expansion with deep inspiration no tenderness and no deformity was found on exam, no costochondral pain or discomfort. Heart: Regular rate and rhythm, S1, S2 positive S3 positive systolic murmur. Back: Severe scoliosis and kyphosis with significant CVA tenderness. Abdomen: Soft, non-tender, bowel sounds active all four quadrants, no masses, no organomegaly. Extremities: Generalized arthralgia has significant pain and discomfort both hips. 2+ edema decreased pulse bilaterally. Skin: Skin color, texture, tugor normal, no rashes or lesions. Neurologic: Alert oriented slight confusion, cranial nerves II to XII intact positive generalized weakness with abnormal balance and gait. ASSESSMENT AND PLAN: _Acute respiratory failure: Much better so far oxygenation has improved and she is in less dyspnea than before. _Severe fluid overload secondary to end-stage renal failure required dialysis patient is edematous with 2+ edema she was placed on IV furosemide will be switched to torsemide today. _COPD exacerbation: Resume DuoNeb along with Pulmicort pulmonary consultation be done patient be on a smaller dose of steroid as well continue O2. DC Solu- Medrol and switch to prednisone 40 mg. _Urinary tract infection and most likely early sepsis: UA is very positive, whit e blood cell 15,600 left shifted no lactic acid done which will be done at this point, blood culture and urine culture will be done as well. Continue Rocephin for now till the culture is back. Will continue IV Rocephin upon discharge patient be switched to cefuroxime. _Chronic hydronephrosis of the right side seen urology and decision that this is quite chronic not significant does not require any intervention. _Severe bronchitis with early pneumonia: Still showing sign of pneumonia with severe bronchitis remain on Rocephin at this point as a single antibiotics for infection. _Hypothyroidism: Resume levothyroxine at 150 mcg daily. _Severe GERD: Remain on omeprazole 40 mg a_twice a day. _Hypertension: Has been on midodrine 5 mg twice a day resume medication. _Chronic depression: Has been on Prozac 20 mg daily._ _Chronic anemia: Mostly iron deficiency and continue Procrit along with iron supplement. _Overflow incontinence: Has been on Myrbetriq 25 mg daily. Debility: Still have significant problem with mobility continue PT at this point. Discharge planning: The patient is doing well hopefully will be able to send her home with help tomorrow. Objective - Vital Signs Vital signs: Vital Signs Temp 97.6 F 10/19/23 02:00 Pulse 78 10/19/23 02:00 Resp 17 10/19/23 02:00 BP 106/62 10/19/23 02:00 Pulse Ox 95 10/19/23 02:00 FiO2 Intake & Output 10/18/23 10/18/23 10/19/23 06:59 18:59 06:59 Intake Total 1080 Output Total 150 700 900 Balance -150 -700 180 Weight 49.6 kg 50.1 kg Intake: Oral 1080 Output: Urine 150 700 900 Other: Voiding Method Toilet Toilet Toilet Diaper Diaper Diaper # Voids 1 # Bowel Movements 1 1 - Labs CBC & Chem 7: 10/19/23 08:22 10/19/23 08:22 Labs: Abnormal Lab Results - Last 24 Hours (Table) 10/18/23 10/18/23 10/18/23 Range/Units 06:05 11:54 16:46 POC Glucose (mg/dL) 176 H 191 H 156 H (70-110) mg/dL 10/18/23 Range/Units 19:56 POC Glucose (mg/dL) 175 H (70-110) mg/dL Microbiology - Last 24 Hours (Table) 10/17/23 11:08 Blood Culture - Preliminary Blood
[2023-10-19 20:17] LABS: Glucose,Whole Blood 125 mg/dL (70-110)
[2023-10-20 07:31] LABS: Glucose,Whole Blood 118 mg/dL (70-110)
[2023-10-20] MEDS: TORSEMIDE 20 MG TAB PO SCH (08:35)
[2023-10-20 11:15] LABS: Basophils % (A) 0 %; Eosinophils % (A) 0 %; HCT 30.2 % (34.0-46.0); HGB 9.4 gm/dL (11.4-16.0); Lymphocytes # (A) 0.7 k/uL (1.0-4.8); Lymphocytes % (A) 7 %; MCH 32.5 pg (25.0-35.0); MCHC 31.3 g/dL (31.0-37.0); Macrocytosis Slight; Mean Platelet Volume 8.1; Monocytes # (A) 0.6 k/uL (0-1.0); Monocytes % (A) 6 %; Neutrophils # (A) 9.9 k/uL (1.3-7.7); Neutrophils % (A) 87 %; Platelet Count 258 k/uL (150-450); RDW 13.5 % (11.5-15.5); WBC 11.3 k/uL (3.8-10.6)
[2023-10-20 11:17] LABS: MCV 104.1 fL (80.0-100.0)
--- NOTE | 2023-10-20 11:23 | P.PN ---
Subjective Progress Note Date: 10/20/23 78-year-old female with a history of underlying severe chronic bronchial asthma/COPD. The patient apparently is a lifelong non-smoker. She presented to the emergency department, on October 15, complaining of increasing shortness of breath, cough, congestion, and difficulty in breathing. She apparently had some fever and chills, especially, the night before she was admitted. She states that she started getting sick on Mother's Day, but was even not well before then. Currently, the patient is not receiving any IV fluids. Her room air saturations are 99%. At home, she is on DuoNebs, albuterol inhaler, Wixela, and Singulair. Current labs include a white count 15.6, hemoglobin 9.6, hematocrit 32.5, and a normal platelet count. Sodium 132, potassium 4, chlorides 105, CO2 16, BUN 95, and creatinine 3.28. N-terminal proBNP is 2840. Albumin is 3.4. Calcium 10.3. Urine shows it to be positive for leukocyte Estrace, and there was 9 WBCs, in the urine, and many bacteria. She tested negative for influenza A, influenza B, RSV, and coronavirus. Chest x-ray shows changes of COPD, without an acute cardiopulmonary process. Progress note dated October 18, 2023. 78-year-old female with a history of severe chronic bronchial asthma/COPD. The patient was seen in consultation yesterday. Please see the note above. Today, she is seen in room 154, observation unit. She is currently on room air. She is not receiving any IV fluids. The patient is apparently doing much better. Current labs include a white count 7.3, hemoglobin 9.5, hematocrit 32.4, and platelet count that was normal. Sodium 135, potassium 3.8, chlorides 105, CO2 17, anion gap 13, BUN 89, and creatinine 3.51. Glucose 176. Albumin 3.4. Progress note dated October 19, 2023. 78-year-old female seen today in room 154. She was admitted with a diagnosis of asthma exacerbation. Clinically, she is feeling better today. She is on room air. Not receiving any IV fluids. Her Solu-Medrol could be converted to prednisone 40 mg a day. She should follow-up with my partner, who she sees in the office for her COPD/asthma. She had an uneventful night according to the nurse. She is feeling a bit dizzy. Today's labs include a white count 16, hemoglobin 9.6, hematocrit 32.9, and a normal platelet count. Sodium 131, potassium 3.9, chlorides 97, CO2 16, anion gap 18, BUN 111, and creatinine 3.71. The patient does have an anion gap metabolic acidosis, secondary to her renal failure. Calcium is 10.9. Phosphorus is 6.4. The patient is seen today October 20, 2023 in follow-up on the regular medical floor. She is currently sitting up in bed. Awake and alert in no acute distress. Breathing easier today compared to yesterday. States a little less dizzy today compared to yesterday. Maintaining good O2 saturations in the 90s on room air. Afebrile. Hemodynamically stable. Follow-up chest x-ray revealed interstitial densities representing bronchitis or asthma. White count 11.3. Hemoglobin 9.4. Platelets 258. Continued on DuoNeb ventilations, Symbicort, Singulair, prednisone taper. She has been seen and evaluated by urology and nephrology. Ultrasound of the kidneys and bladder revealed changes of bilateral chronic medical renal disease. Moderate hydronephrosis on the right. Suboptimal assessment of the bladder due to nondistention. Yesterday's BUN was 111 with a creatinine of 3.71 and a GFR of 11. Objective - Vital Signs Vital signs: Vital Signs Temp 97.4 F L 10/20/23 07:20 Pulse 76 10/20/23 07:41 Resp 16 10/20/23 07:20 BP 128/75 10/20/23 07:20 Pulse Ox 97 10/20/23 07:20 FiO2 Intake & Output 10/19/23 10/20/23 10/20/23 18:59 06:59 18:59 Intake Total 980 Output Total 1500 900 200 Balance -1500 80 -200 Weight 51 kg Intake: Oral 980 Output: Urine 1500 900 200 Other: Voiding Method Toilet Toilet Toilet Diaper Diaper Diaper - Exam GENERAL EXAM: Alert, very pleasant 78-year-old female, on room air, resting in bed, comfortable in no apparent distress. HEAD: Normocephalic. EYES: Normal reaction of pupils, equal size. NOSE: Clear with pink turbinates. THROAT: No erythema or exudates. NECK: No masses, no JVD. CHEST: No chest wall deformity. LUNGS: Equal air entry with few scattered rhonchi. CVS: S1 and S2 normal with no audible murmur, regular rhythm. ABDOMEN: No hepatosplenomegaly, normal bowel sounds, no guarding or rigidity. SPINE: No scoliosis or deformity SKIN: No rashes CENTRAL NERVOUS SYSTEM: No focal deficits, tone is normal in all 4 extremities. EXTREMITIES: There is no peripheral edema. No clubbing, no cyanosis. Peripheral pulses are intact. - Labs CBC & Chem 7: 10/19/23 08:22 10/19/23 08:22 Labs: Abnormal Lab Results - Last 24 Hours (Table) 10/19/23 10/19/23 10/19/23 Range/Units 11:42 17:05 20:12 POC Glucose (mg/dL) 137 H 120 H 125 H (70-110) mg/dL 10/20/23 Range/Units 07:23 POC Glucose (mg/dL) 118 H (70-110) mg/dL Microbiology - Last 24 Hours (Table) 10/17/23 11:08 Blood Culture - Preliminary Blood Assessment and Plan Assessment: Acute exacerbation of COPD/asthma Anion gap metabolic acidosis, secondary to chronic renal failure History of osteoarthritis History of renal failure History of skin cancer History of kidney stones Osteoporosis History of hypothyroidism Lifelong non-smoker Multiple other medical problems and comorbidities Plan: The patient was seen and evaluated Medications and labs reviewed Stable and on room air Continue bronchodilators and prednisone taper Increase her activity as tolerated She will follow-up in our office postdischarge This patient was seen independently by the pulmonary nurse practitioner addressing pulmonary issues I have personally seen and examined the patient, performed the documentation and the assessment and plan as written. Number of minutes spent on the visit: 24.
[2023-10-20 11:26] LABS: ALT 24 U/L (4-34); AST 22 U/L (14-36); African American GFR (CKD) 13 (>60 ml/min/1.73 sqM); Albumin 3.5 g/dL (3.5-5.0); Albumin/Globulin Ratio 1.4; Alkaline Phosphatase 63 U/L (38-126); Anion Gap 13 mmol/L; Calcium 10.5 mg/dL (8.4-10.2); Carbon Dioxide 23 mmol/L (22-30); Chloride 93 mmol/L (98-107); Globulin 2.5 g/dL; Glucose 100 mg/dL (74-99); Non-African American GFR(CKD) 11 (>60 ml/min/1.73 sqM); Potassium 3.7 mmol/L (3.5-5.1); Sodium 129 mmol/L (137-145); Total Bilirubin 0.4 mg/dL (0.2-1.3)
[2023-10-20 11:31] LABS: Blood Urea Nitrogen 119 mg/dL (7-17)
[2023-10-20 11:46] LABS: Glucose,Whole Blood 122 mg/dL (70-110)
--- NOTE | 2023-10-20 12:52 | P.PN ---
Subjective Patient is seen for follow-up for chronic kidney disease and acute kidney injury. Currently being diuresed. IV Lasix was discontinued and patient is now maintained on torsemide. 24 hour urine output documented at 2.4 L. No complaints of shortness of breath. Blood pressure is on the lower side. O2 sats 95% on room air. Serum creatinine decreased to 3.6 today. BUN disproportionately elevated from steroids. Ultrasound shows left renal atrophy and moderate right hydronephrosis. Patient follows with Dr. Hennessy, no plans for intervention from urology standpoint. This is mostly chronic. Objective - Vital Signs Vital signs: Vital Signs Temp 97.4 F L 10/20/23 07:20 Pulse 80 10/20/23 11:25 Resp 16 10/20/23 07:20 BP 128/75 10/20/23 07:20 Pulse Ox 97 10/20/23 07:20 FiO2 Intake & Output 10/19/23 10/20/23 10/20/23 18:59 06:59 18:59 Intake Total 980 500 Output Total 1500 900 200 Balance -1500 80 300 Weight 51 kg Intake: Oral 980 500 Output: Urine 1500 900 200 Other: Voiding Method Toilet Toilet Toilet Diaper Diaper Diaper - Exam patient is awake, comfortable, alert oriented 3. No acute distress Examination of the heart S1 and S2 Examination of the lungs shows bilateral breath sounds are heard Abdomen is soft nontender Examination of lower extremities shows edema with chronic skin changes. CLIENT ADMINISTRATOR exam grossly intact - Labs CBC & Chem 7: 10/20/23 10:42 10/20/23 10:42 Labs: Abnormal Lab Results - Last 24 Hours (Table) 10/19/23 10/19/23 10/20/23 Range/Units 17:05 20:12 07:23 WBC (3.8-10.6) k/uL RBC (3.80-5.40) m/uL Hgb (11.4-16.0) gm/dL Hct (34.0-46.0) % MCV (80.0-100.0) fL Neutrophils # (1.3-7.7) k/uL Lymphocytes # (1.0-4.8) k/uL Sodium (137-145) mmol/L Chloride (98-107) mmol/L BUN (7-17) mg/dL Creatinine (0.52-1.04) mg/dL Glucose (74-99) mg/dL POC Glucose (mg/dL) 120 H 125 H 118 H (70-110) mg/dL Calcium (8.4-10.2) mg/dL Total Protein (6.3-8.2) g/dL 10/20/23 10/20/23 10/20/23 Range/Units 10:42 10:42 11:34 WBC 11.3 H (3.8-10.6) k/uL RBC 2.90 L (3.80-5.40) m/uL Hgb 9.4 L (11.4-16.0) gm/dL Hct 30.2 L (34.0-46.0) % MCV 104.1 H D (80.0-100.0) fL Neutrophils # 9.9 H (1.3-7.7) k/uL Lymphocytes # 0.7 L (1.0-4.8) k/uL Sodium 129 L (137-145) mmol/L Chloride 93 L (98-107) mmol/L BUN 119 H* (7-17) mg/dL Creatinine 3.64 H (0.52-1.04) mg/dL Glucose 100 H (74-99) mg/dL POC Glucose (mg/dL) 122 H (70-110) mg/dL Calcium 10.5 H (8.4-10.2) mg/dL Total Protein 6.0 L (6.3-8.2) g/dL Microbiology - Last 24 Hours (Table) 10/17/23 11:08 Blood Culture - Preliminary Blood Assessment and Plan Assessment: 1. Acute kidney injury, ATN versus progression of underlying CK D. History of hemodialysis dependent acute kidney injury with recovery of renal function to some degree and discontinuation of hemodialysis. Patient had been refusing restarting renal replacement therapy but has agreed to it now if needed. Patient did not tolerate hemodialysis well and had multiple episodes of hypotension with poorly functioning catheters. She has been off of dialysis for about 2 years now. Also a component of acute kidney injury from hypercalcemia. serum creatinine slightly improved. B UN is disproportionately elevated from steroids. 2. Chronic lower extremity edema/lymphedema with recent worsening, status post diuresis. Now improved. 3. COPD exacerbation maintained on IV steroids and updraft treatments. Being followed by pulmonology 4. CK D mineral bone disorder maintained on PhosLo and Renvela. Calcium is elevated therefore Rocaltrol will be discontinued. 5. Chronic hypotension maintained on midodrine as needed. 6. Chronic right hydronephrosis with left renal atrophy with no plans for intervention from urology standpoint 7. Hypercalcemia in the setting of use of calcium based binder is as well as calcitriol. Plan: continue with current dose of torsemide recommend decreasing dose of prednisone Repeat labs in a.m.
--- NOTE | 2023-10-20 17:07 | CDI ---
Documentation Clarification Form Date: 10/20/2023 04:23:50 PM From: Shonna Richards RN, CCDS Phone: [phone] Admit Date: 10/17/2023 12:18:00 PM Patient Name: Margie Dallas Visit Number: [id number] Discharge Date: ATTENTION: The Clinical Documentation Specialists (CDI) and [employer] Coding Staff appreciate your assistance in clarifying documentation. Please respond to the clarification below the line at the bottom and electronically sign. The CDI & [employer] Coding staff will review the response and follow-up if needed. Please note: Queries are made part of the Legal Health Record. If you have any questions, please contact the author of this message via ITS. Dr. Bienvendio Hogue Acute respiratory failure is documented in the H/P and subsequent progress notes which may lack sufficient clinical evidence/support in the medical record. Additional clarification is requested. History/Risk Factors: Asthma, Cancer, COPD, Thyroid Disorder, pulmonary fibrosis, Clinical Indicators: 78-year-old female presented to the ER with chief complaint of congestion and cough, worsening lower extremity edema. 10/15 CXR: No acute cardiopulmonary disease process. COPD changes ED assessment Lungs: Wheezes. No respiratory distress, rales, rhonchi stridor 10/16 VS 115/64 68 18 95% RA, 119/71 65 18 97.8 99% RA 10/17 (06:53) 110/67 70 16 97% RA 10/16 Pulmonary consult: presented on October 15 complaining of increasing shortness of breath, cough, congestion, and difficulty in breathing, lungs diffuse bilateral inspiratory and expiratory wheezes and rhonchi. Breath sounds are rather coarse. There are no crackles. Breath sounds equal bilaterally. Room air saturation is 95%. Treatment: Solu-Medrol 60 MG IV Q 6 HRS (Titrate) Singular 10 MG HS Duoneb 0.5 Mg-3 MG/3ML Soln 10/16 Benzonate 200 MG PO TID 10/17 Please clarify if acute respiratory failure is a valid diagnosis? [xx ] Yes, Acute hypoxic respiratory failure is present as evidence by (additional clinical support): [ ] No, Acute hypoxic respiratory failure is ruled out [ ] Other (please specify diagnosis) [ ] Unable to determine (Template Last Revised: August 2020) MTDD
[2023-10-20 17:18] LABS: Glucose,Whole Blood 151 mg/dL (70-110)
[2023-10-20 20:18] LABS: Glucose,Whole Blood 136 mg/dL (70-110)
[2023-10-21 07:44] LABS: Glucose,Whole Blood 119 mg/dL (70-110)
--- NOTE | 2023-10-21 07:50 | P.PN ---
Subjective Progress Note Date: 10/21/23 78-year-old female with a history of underlying severe chronic bronchial asthma/COPD. The patient apparently is a lifelong non-smoker. She presented to the emergency department, on October 15, complaining of increasing shortness of breath, cough, congestion, and difficulty in breathing. She apparently had some fever and chills, especially, the night before she was admitted. She states that she started getting sick on Mother's Day, but was even not well before then. Currently, the patient is not receiving any IV fluids. Her room air saturations are 99%. At home, she is on DuoNebs, albuterol inhaler, Wixela, and Singulair. Current labs include a white count 15.6, hemoglobin 9.6, hematocrit 32.5, and a normal platelet count. Sodium 132, potassium 4, chlorides 105, CO2 16, BUN 95, and creatinine 3.28. N-terminal proBNP is 2840. Albumin is 3.4. Calcium 10.3. Urine shows it to be positive for leukocyte Estrace, and there was 9 WBCs, in the urine, and many bacteria. She tested negative for influenza A, influenza B, RSV, and coronavirus. Chest x-ray shows changes of COPD, without an acute cardiopulmonary process. Progress note dated October 18, 2023. 78-year-old female with a history of severe chronic bronchial asthma/COPD. The patient was seen in consultation yesterday. Please see the note above. Today, she is seen in room 154, observation unit. She is currently on room air. She is not receiving any IV fluids. The patient is apparently doing much better. Current labs include a white count 7.3, hemoglobin 9.5, hematocrit 32.4, and platelet count that was normal. Sodium 135, potassium 3.8, chlorides 105, CO2 17, anion gap 13, BUN 89, and creatinine 3.51. Glucose 176. Albumin 3.4. Progress note dated October 19, 2023. 78-year-old female seen today in room 154. She was admitted with a diagnosis of asthma exacerbation. Clinically, she is feeling better today. She is on room air. Not receiving any IV fluids. Her Solu-Medrol could be converted to prednisone 40 mg a day. She should follow-up with my partner, who she sees in the office for her COPD/asthma. She had an uneventful night according to the nurse. She is feeling a bit dizzy. Today's labs include a white count 16, hemoglobin 9.6, hematocrit 32.9, and a normal platelet count. Sodium 131, potassium 3.9, chlorides 97, CO2 16, anion gap 18, BUN 111, and creatinine 3.71. The patient does have an anion gap metabolic acidosis, secondary to her renal failure. Calcium is 10.9. Phosphorus is 6.4. The patient is seen today October 20, 2023 in follow-up on the regular medical floor. She is currently sitting up in bed. Awake and alert in no acute distress. Breathing easier today compared to yesterday. States a little less dizzy today compared to yesterday. Maintaining good O2 saturations in the 90s on room air. Afebrile. Hemodynamically stable. Follow-up chest x-ray revealed interstitial densities representing bronchitis or asthma. White count 11.3. Hemoglobin 9.4. Platelets 258. Continued on DuoNeb ventilations, Symbicort, Singulair, prednisone taper. She has been seen and evaluated by urology and nephrology. Ultrasound of the kidneys and bladder revealed changes of bilateral chronic medical renal disease. Moderate hydronephrosis on the right. Suboptimal assessment of the bladder due to nondistention. Yesterday's BUN was 111 with a creatinine of 3.71 and a GFR of 11. The patient is seen today October 21, 2023 in follow-up on the regular medical floor. She is awake and alert in no acute distress. Resting comfortably in bed. Maintaining O2 saturations in the 90s on room air. No IV fluids. Glucose 119. Remains on DuoNeb ventilations, Symbicort, Singulair and a prednisone taper. Tessalon Perles for cough which has improved significantly. She remains on oral diuretics. She has been followed closely by nephrology. She had previously been on hemodialysis for approximately 2 years. She states she has been off dialysis for about 2-1/2 years. She is currently in a -400 mL balance Objective - Vital Signs Vital signs: Vital Signs Temp 97.8 F 10/21/23 01:19 Pulse 76 10/21/23 07:35 Resp 16 10/21/23 01:19 BP 122/72 10/21/23 01:19 Pulse Ox 92 L 10/21/23 01:19 FiO2 Intake & Output 10/20/23 10/21/23 10/21/23 18:59 06:59 18:59 Intake Total 1000 Output Total 1000 400 Balance 0 -400 Weight 54 kg Intake: Oral 1000 Output: Urine 1000 400 Other: Voiding Method Toilet Toilet Diaper # Voids 1 - Exam GENERAL EXAM: Alert, pleasant 78-year-old female, on room air, comfortable in no apparent distress. HEAD: Normocephalic. EYES: Normal reaction of pupils, equal size. NOSE: Clear with pink turbinates. THROAT: No erythema or exudates. NECK: No masses, no JVD. CHEST: No chest wall deformity. LUNGS: Equal air entry with few scattered rhonchi. CVS: S1 and S2 normal with no audible murmur, regular rhythm. ABDOMEN: No hepatosplenomegaly, normal bowel sounds, no guarding or rigidity. SPINE: No scoliosis or deformity SKIN: No rashes CENTRAL NERVOUS SYSTEM: No focal deficits, tone is normal in all 4 extremities. EXTREMITIES: There is no peripheral edema. No clubbing, no cyanosis. Peripheral pulses are intact. - Labs CBC & Chem 7: 10/20/23 10:42 10/20/23 10:42 Labs: Abnormal Lab Results - Last 24 Hours (Table) 10/20/23 10/20/23 10/20/23 Range/Units 10:42 10:42 11:34 WBC 11.3 H (3.8-10.6) k/uL RBC 2.90 L (3.80-5.40) m/uL Hgb 9.4 L (11.4-16.0) gm/dL Hct 30.2 L (34.0-46.0) % MCV 104.1 H D (80.0-100.0) fL Neutrophils # 9.9 H (1.3-7.7) k/uL Lymphocytes # 0.7 L (1.0-4.8) k/uL Sodium 129 L (137-145) mmol/L Chloride 93 L (98-107) mmol/L BUN 119 H* (7-17) mg/dL Creatinine 3.64 H (0.52-1.04) mg/dL Glucose 100 H (74-99) mg/dL POC Glucose (mg/dL) 122 H (70-110) mg/dL Calcium 10.5 H (8.4-10.2) mg/dL Total Protein 6.0 L (6.3-8.2) g/dL 10/20/23 10/20/23 10/21/23 Range/Units 17:17 20:16 07:43 WBC (3.8-10.6) k/uL RBC (3.80-5.40) m/uL Hgb (11.4-16.0) gm/dL Hct (34.0-46.0) % MCV (80.0-100.0) fL Neutrophils # (1.3-7.7) k/uL Lymphocytes # (1.0-4.8) k/uL Sodium (137-145) mmol/L Chloride (98-107) mmol/L BUN (7-17) mg/dL Creatinine (0.52-1.04) mg/dL Glucose (74-99) mg/dL POC Glucose (mg/dL) 151 H 136 H 119 H (70-110) mg/dL Calcium (8.4-10.2) mg/dL Total Protein (6.3-8.2) g/dL Microbiology - Last 24 Hours (Table) 10/17/23 11:08 Blood Culture - Preliminary Blood Assessment and Plan Assessment: Acute exacerbation of COPD/asthma,, recovered and on room air. Feeling back to her baseline Anion gap metabolic acidosis, secondary to chronic renal failure History of osteoarthritis History of renal failure previously on hemodialysis for approximately 2 years, off for about 2-1/2 years now History of skin cancer History of kidney stones Osteoporosis History of hypothyroidism Lifelong non-smoker Multiple other medical problems and comorbidities Plan: The patient was seen and evaluated Medications and labs reviewed She is being followed closely by nephrology Continue bronchodilators and prednisone taper Increase her activity as tolerated This patient was seen independently by the pulmonary nurse practitioner addressing pulmonary issues I have personally seen and examined the patient, performed the documentation and the assessment and plan as written. Number of minutes spent on the visit: 23.
--- NOTE | 2023-10-21 07:52 | P.PN ---
Subjective Progress Note Date: 10/20/23 HISTORY OF PRESENT ILLNESS: 78-year-old office patient with active medical history of end-stage renal disease was on hemodialysis earlier has been off dialysis for the last 2 years, been evaluated for renal transplant rejected, history of chronic anemia, diastolic congestive heart failure, COPD/asthma, hypertension, hyperlipidemia, hypothyroidism, chronic GERD, chronic neuropathy, severe balance and gait with multiple fall. Who also had significant weight loss last year who apparently was at the walk-in clinic yesterday for worsening shortness of breath dyspnea not been able to lay down flat in bed was sent to the emergency department because of significant cough tightness wheezes with significant respiratory distress was seen and evaluated in the emergency departmentFound to be in quite a bit of fluid overload with worsening peripheral edema and central venous congestion also found to have severe bronchial spasm tightness and wheezing. Was giving few updraft treatment which had helped UA was extremely positive for infection white blood cell was normal kidney function is much worse review of chest x-ray shows central venous congestion most likely failure with worsening kidney function. Recurrent symptoms patient was kept on Rocephin at this point, updraft treatment, will admit patient to the hospital patient is an end-stage renal failure required dialysis she is having significant fluid retention because of her kidney failure. Patient has no dialysis access currently. 10/18/2023 she is feeling slightly better kidney function is much worse continue to have wheezes and tightness still on Rocephin as a single antibiotic for her pneumonia still on steroid for her COPD exacerbation fluid overload and worsening kidney function did not: Different, nephrology had her on IV furosemide and patient believes she is having better urine output. Her creatinine is 2.53 GFR around 13 ultrasound shows left renal atrophy moderate right hydronephrosis she is not hypertensive today blood pressure is holding well will consult urology for the hydronephrosis and resume her home medication including her vitamin D and PhosLo. 10/19/2023: She was found to have hydronephrosis of the right side was seen urology today claimed that hydronephrosis has not been exist since 2019 this is a chronic finding and no change in likely to contribute to the worsening of renal function at this point. No acute surgical intervention required. Nephrology was with a slight decline in kidney function with creatinine is up to 3.71 GFR is down to 13 DC IV Lasix switched to torsemide and waiting for urology to make a conclusion on hydronephrosis repeat lab in the morning and DC calcitriol. Patient having + and symptom of shortness of breath and cough compared to before. Pulmonary najera with exacerbation of her COPD/asthma doing much better on current medication management Solu-Medrol is converted to prednisone 40 mg and he wanted to follow-up in the office upon discharge. Overall clinically patient is feeling much better compared to before has been having less sign and symptom of shortness of breath she still have anasarca and slight edema with improved compared to before. 10/20/2023: Kidney function slightly bit worse with creatinine up to 3.64 GFR around 10 bun 119. Nephrology still making adjustment medication will continue torsemide along with decreased prednisone dose hoping to improve with GFR and B UN/creatinine. I still do not see this happening and I believe patient will probably need to go on hemodialysis despite the difficult part sadly her risk for admission is extremely high currently because no resolve on current issue which probably make patient's creatinine much worse in the next week or so will require more urgent arrangement for dialysis. Patient will remain in the hospital next 24 hours at least to see if this is worse through the weekend starting dialysis would be najera to be done while she is in the hospital. REVIEW OF SYSTEMS: CONSTITUTIONAL: Well-developed mild respiratory distress EYES: No icterus sclerae, no conjunctivitis. EARS, NOSE, MOUTH, THROAT, and FACE: No sore throat, lymphadenopathy, carotid bruits or deformity. RESPIRATORY: Positive quite bit shortness of breath with cough wheezes. CARDIOVASCULAR: Positive PND orthopnea palpitation. GASTROINTESTINAL: No Abd pain, Nausea or vomiting, no Diarrhea or constipation, No GI Bleed, no distention or masses. GENITOURINARY: Positive urinary tract infection with polyuria and end-stage on chronic kidney failure. INTEGUMENT/BREAST: Generalized arthralgia and myalgia. HEMATOLOGIC/LYMPHATIC: Negative for bleed or purpura. MUSCULOSKELTAL: Generalized myalgia with chronic lower back pain. NEURLOGICAL: No LOC, Sz or syncope, blurred vision dizziness or abnormality.. BEHAVIORAL/PSYCH: Negative. ENDOCRINE: Negative. PHYSICAL EXAMINATION: General Appearance: Alert, cooperative, mild distress. Neck HEENT: Supple, no lymphadenopathy, no thyroid enlargement, no carotid bruits. Lungs: Decreased breath sound bilaterally with fine rhonchi positive inspiratory expiratory wheezes with tightness. Chest Wall: Decreased expansion with deep inspiration no tenderness and no deformity was found on exam, no costochondral pain or discomfort. Heart: Regular rate and rhythm, S1, S2 positive S3 positive systolic murmur. Back: Severe scoliosis and kyphosis with significant CVA tenderness. Abdomen: Soft, non-tender, bowel sounds active all four quadrants, no masses, no organomegaly. Extremities: Generalized arthralgia has significant pain and discomfort both hips. 2+ edema decreased pulse bilaterally. Skin: Skin color, texture, tugor normal, no rashes or lesions. Neurologic: Alert oriented slight confusion, cranial nerves II to XII intact positive generalized weakness with abnormal balance and gait. ASSESSMENT AND PLAN: _Acute respiratory failure: Much better so far oxygenation has improved and she is in less dyspnea than before. Improved so far and doing well. _Severe fluid overload secondary to end-stage renal failure required dialysis patient is edematous with 2+ edema she was placed on IV furosemide will be switched to torsemide today. The patient having to be on diuretics along with bedrest had made a huge improvement. _COPD exacerbation: Resume DuoNeb along with Pulmicort pulmonary consultation be done patient be on a smaller dose of steroid as well continue O2. DC Solu- Medrol and switch to prednisone 40 mg. _Urinary tract infection and most likely early sepsis: Cultures remain negative patient will be switched to cefuroxime for few more days. _Chronic hydronephrosis of the right side seen urology and decision that this is quite chronic not significant does not require any intervention. _Severe bronchitis with early pneumonia: Her stridor, cough and wheezes are much better. _Hypothyroidism: Resume levothyroxine at 150 mcg daily. _Severe GERD: Remain on omeprazole 40 mg a_twice a day. _Hypertension: Has been on midodrine 5 mg twice a day resume medication. _Chronic depression: Has been on Prozac 20 mg daily._ _Chronic anemia: Mostly iron deficiency and continue Procrit along with iron supplement. _Overflow incontinence: Has been on Myrbetriq 25 mg daily. Debility: Still have significant problem with mobility continue PT at this point. Discharge planning: Patient will stay in the hospital in the next 24 hours repeat BUN/creatinine materials manager tomorrow and see what the number compared to today whether require further help again to initiate hemodialysis sooner. Objective - Vital Signs Vital signs: Vital Signs Temp 97.8 F 10/21/23 01:19 Pulse 76 10/21/23 07:35 Resp 16 10/21/23 01:19 BP 122/72 10/21/23 01:19 Pulse Ox 92 L 10/21/23 01:19 FiO2 Intake & Output 10/20/23 10/21/23 10/21/23 18:59 06:59 18:59 Intake Total 1000 Output Total 1000 400 Balance 0 -400 Weight 54 kg Intake: Oral 1000 Output: Urine 1000 400 Other: Voiding Method Toilet Toilet Diaper # Voids 1 - Labs CBC & Chem 7: 10/20/23 10:42 10/20/23 10:42 Labs: Abnormal Lab Results - Last 24 Hours (Table) 10/20/23 10/20/23 10/20/23 Range/Units 10:42 10:42 11:34 WBC 11.3 H (3.8-10.6) k/uL RBC 2.90 L (3.80-5.40) m/uL Hgb 9.4 L (11.4-16.0) gm/dL Hct 30.2 L (34.0-46.0) % MCV 104.1 H D (80.0-100.0) fL Neutrophils # 9.9 H (1.3-7.7) k/uL Lymphocytes # 0.7 L (1.0-4.8) k/uL Sodium 129 L (137-145) mmol/L Chloride 93 L (98-107) mmol/L BUN 119 H* (7-17) mg/dL Creatinine 3.64 H (0.52-1.04) mg/dL Glucose 100 H (74-99) mg/dL POC Glucose (mg/dL) 122 H (70-110) mg/dL Calcium 10.5 H (8.4-10.2) mg/dL Total Protein 6.0 L (6.3-8.2) g/dL 10/20/23 10/20/23 10/21/23 Range/Units 17:17 20:16 07:43 WBC (3.8-10.6) k/uL RBC (3.80-5.40) m/uL Hgb (11.4-16.0) gm/dL Hct (34.0-46.0) % MCV (80.0-100.0) fL Neutrophils # (1.3-7.7) k/uL Lymphocytes # (1.0-4.8) k/uL Sodium (137-145) mmol/L Chloride (98-107) mmol/L BUN (7-17) mg/dL Creatinine (0.52-1.04) mg/dL Glucose (74-99) mg/dL POC Glucose (mg/dL) 151 H 136 H 119 H (70-110) mg/dL Calcium (8.4-10.2) mg/dL Total Protein (6.3-8.2) g/dL Microbiology - Last 24 Hours (Table) 10/17/23 11:08 Blood Culture - Preliminary Blood
[2023-10-21] MEDS: TORSEMIDE 20 MG TAB PO SCH (08:27)
[2023-10-21 11:00] LABS: African American GFR (CKD) 13 (>60 ml/min/1.73 sqM); Anion Gap 17 mmol/L; Calcium 10.1 mg/dL (8.4-10.2); Carbon Dioxide 16 mmol/L (22-30); Chloride 92 mmol/L (98-107); Glucose 120 mg/dL (74-99); Non-African American GFR(CKD) 12 (>60 ml/min/1.73 sqM); Potassium 3.5 mmol/L (3.5-5.1); Sodium 125 mmol/L (137-145)
[2023-10-21 11:21] LABS: Blood Urea Nitrogen 140 mg/dL (7-17)
--- NOTE | 2023-10-21 11:42 | P.PN ---
Subjective Patient is seen for follow-up for chronic kidney disease and acute kidney injury. Currently being diuresed. IV Lasix was discontinued and patient is now maintained on torsemide. 24 hour urine output documented at 1.4 L. No complaints of shortness of breath. Serum creatinine decreased to 3.5 today. BUN disproportionately elevated from steroids. no obvious GI bleed. Ultrasound shows left renal atrophy and moderate right hydronephrosis. Patient follows with Dr. Hennessy, no plans for intervention from urology standpoint. This is mostly chronic. Objective - Vital Signs Vital signs: Vital Signs Temp 97.9 F 10/21/23 08:00 Pulse 72 10/21/23 11:27 Resp 18 10/21/23 08:25 BP 120/70 10/21/23 08:00 Pulse Ox 97 10/21/23 08:00 FiO2 Intake & Output 10/20/23 10/21/23 10/21/23 18:59 06:59 18:59 Intake Total 1000 Output Total 1000 400 Balance 0 -400 Weight 54 kg Intake: Oral 1000 Output: Urine 1000 400 Other: Voiding Method Toilet Toilet Toilet Diaper # Voids 1 - Exam patient is awake, comfortable, alert oriented 3. No acute distress Examination of the heart S1 and S2 Examination of the lungs shows bilateral breath sounds are heard Abdomen is soft nontender Examination of lower extremities shows edema with chronic skin changes. [employer] MECH[employer]IC exam grossly intact - Labs CBC & Chem 7: 10/20/23 10:42 10/21/23 10:26 Labs: Abnormal Lab Results - Last 24 Hours (Table) 10/20/23 10/20/23 10/20/23 Range/Units 11:34 17:17 20:16 Sodium (137-145) mmol/L Chloride (98-107) mmol/L Carbon Dioxide (22-30) mmol/L BUN (7-17) mg/dL Creatinine (0.52-1.04) mg/dL Glucose (74-99) mg/dL POC Glucose (mg/dL) 122 H 151 H 136 H (70-110) mg/dL 10/21/23 10/21/23 Range/Units 07:43 10:26 Sodium 125 L (137-145) mmol/L Chloride 92 L (98-107) mmol/L Carbon Dioxide 16 L (22-30) mmol/L BUN 140 H* (7-17) mg/dL Creatinine 3.57 H (0.52-1.04) mg/dL Glucose 120 H (74-99) mg/dL POC Glucose (mg/dL) 119 H (70-110) mg/dL Microbiology - Last 24 Hours (Table) 10/17/23 11:08 Blood Culture - Preliminary Blood Assessment and Plan Assessment: 1. Acute kidney injury, ATN versus progression of underlying CK D. History of hemodialysis dependent acute kidney injury with recovery of renal function to some degree and discontinuation of hemodialysis. Patient had been refusing restarting renal replacement therapy but has agreed to it now if needed. Patient did not tolerate hemodialysis well and had multiple episodes of hypotension with poorly functioning catheters. She has been off of dialysis for about 2 years now. Also a component of acute kidney injury from hypercalcemia. serum creatinine slightly improved. B UN is disproportionately elevated from steroids. 2. Chronic lower extremity edema/lymphedema with recent worsening, status post diuresis. Now improved. 3. COPD exacerbation maintained on IV steroids and updraft treatments. Being followed by pulmonology 4. CK D mineral bone disorder maintained on PhosLo and Renvela. Calcium is elevated therefore Rocaltrol will be discontinued. 5. Chronic hypotension maintained on midodrine as needed. 6. Chronic right hydronephrosis with left renal atrophy with no plans for intervention from urology standpoint 7. Hypercalcemia in the setting of use of calcium based binder is as well as calcitriol. 8. Hyponatremia. Patient has chronic lymphedema and is currently being diuresed. Check urine osmolality and random urine sodium. cortisol level will not be accurate as patient is maintained on prednisone Plan: repeat chest x-ray today. Hold torsemide. Reevaluate for need for hemodialysis in a.m. Consider decreasing dose of prednisone.
[2023-10-21 12:20] LABS: Glucose,Whole Blood 148 mg/dL (70-110)
--- NOTE | 2023-10-21 12:37 | XR ---
EXAMINATION TYPE: XR chest 1V DATE OF EXAM: 10/21/2023 12:15 PM CLINICAL INDICATION:Female, 78 years old with history of chf; [facility] COMPARISON: Chest radiographs from 10/19/2023. TECHNIQUE: XR chest 1V Frontal view of the chest. FINDINGS: Lungs/Pleura: There is flattening of the diaphragm with increased lucency of the lungs. No evidence o f pneumothorax, pleural effusion or focal consolidation. Pulmonary vascularity: Unremarkable. Heart/mediastinum: Cardiomediastinal silhouette is unremarkable. Atherosclerotic calcifications are seen in the aorta. Musculoskeletal: No acute osseous pathology. IMPRESSION: 1. No acute cardiopulmonary disease process. 2. COPD changes.
[2023-10-21 17:15] LABS: Glucose,Whole Blood 134 mg/dL (70-110)
[2023-10-21 21:09] LABS: Glucose,Whole Blood 136 mg/dL (70-110)
--- NOTE | 2023-10-21 21:13 | P.PN ---
Subjective Progress Note Date: 10/21/23 HISTORY OF PRESENT ILLNESS: 78-year-old office patient with active medical history of end-stage renal disease was on hemodialysis earlier has been off dialysis for the last 2 years, been evaluated for renal transplant rejected, history of chronic anemia, diastolic congestive heart failure, COPD/asthma, hypertension, hyperlipidemia, hypothyroidism, chronic GERD, chronic neuropathy, severe balance and gait with multiple fall. Who also had significant weight loss last year who apparently was at the walk-in clinic yesterday for worsening shortness of breath dyspnea not been able to lay down flat in bed was sent to the emergency department because of significant cough tightness wheezes with significant respiratory distress was seen and evaluated in the emergency departmentFound to be in quite a bit of fluid overload with worsening peripheral edema and central venous congestion also found to have severe bronchial spasm tightness and wheezing. Was giving few updraft treatment which had helped UA was extremely positive for infection white blood cell was normal kidney function is much worse review of chest x-ray shows central venous congestion most likely failure with worsening kidney function. Recurrent symptoms patient was kept on Rocephin at this point, updraft treatment, will admit patient to the hospital patient is an end-stage renal failure required dialysis she is having significant fluid retention because of her kidney failure. Patient has no dialysis access currently. 10/18/2023 she is feeling slightly better kidney function is much worse continue to have wheezes and tightness still on Rocephin as a single antibiotic for her pneumonia still on steroid for her COPD exacerbation fluid overload and worsening kidney function did not: Different, nephrology had her on IV furosemide and patient believes she is having better urine output. Her creatinine is 2.53 GFR around 13 ultrasound shows left renal atrophy moderate right hydronephrosis she is not hypertensive today blood pressure is holding well will consult urology for the hydronephrosis and resume her home medication including her vitamin D and PhosLo. 10/19/2023: She was found to have hydronephrosis of the right side was seen urology today claimed that hydronephrosis has not been exist since 2019 this is a chronic finding and no change in likely to contribute to the worsening of renal function at this point. No acute surgical intervention required. Nephrology was with a slight decline in kidney function with creatinine is up to 3.71 GFR is down to 13 DC IV Lasix switched to torsemide and waiting for urology to make a conclusion on hydronephrosis repeat lab in the morning and DC calcitriol. Patient having + and symptom of shortness of breath and cough compared to before. Pulmonary najera with exacerbation of her COPD/asthma doing much better on current medication management Solu-Medrol is converted to prednisone 40 mg and he wanted to follow-up in the office upon discharge. Overall clinically patient is feeling much better compared to before has been having less sign and symptom of shortness of breath she still have anasarca and slight edema with improved compared to before. 10/20/2023: Kidney function slightly bit worse with creatinine up to 3.64 GFR around 10 bun 119. Nephrology still making adjustment medication will continue torsemide along with decreased prednisone dose hoping to improve with GFR and B UN/creatinine. I still do not see this happening and I believe patient will probably need to go on hemodialysis despite the difficult part sadly her risk for admission is extremely high currently because no resolve on current issue which probably make patient's creatinine much worse in the next week or so will require more urgent arrangement for dialysis. Patient will remain in the hospital next 24 hours at least to see if this is worse through the weekend starting dialysis would be najera to be done while she is in the hospital. 10/21/2023: Patient clinically feeling slightly better kidney function is much worse patient declining gradually despite the fact that since no access for dialysis will be easy to do and she is not a candidate for CAPD at this point with her multi scar tissue from previous bariatric surgery but believe patient has been declining more will require help soon do not feel comfortable sending her home at this point Her bun is up to 148 creatinine 3.57 she is quite bit uremic sodium down to 125. Nephrology changed her diuretics and prednisone and at this point she is getting ready for dialysis. REVIEW OF SYSTEMS: CONSTITUTIONAL: Well-developed mild respiratory distress EYES: No icterus sclerae, no conjunctivitis. EARS, NOSE, MOUTH, THROAT, and FACE: No sore throat, lymphadenopathy, carotid bruits or deformity. RESPIRATORY: Positive quite bit shortness of breath with cough wheezes. CARDIOVASCULAR: Positive PND orthopnea palpitation. GASTROINTESTINAL: No Abd pain, Nausea or vomiting, no Diarrhea or constipation, No GI Bleed, no distention or masses. GENITOURINARY: Positive urinary tract infection with polyuria and end-stage on chronic kidney failure. INTEGUMENT/BREAST: Generalized arthralgia and myalgia. HEMATOLOGIC/LYMPHATIC: Negative for bleed or purpura. MUSCULOSKELTAL: Generalized myalgia with chronic lower back pain. NEURLOGICAL: No LOC, Sz or syncope, blurred vision dizziness or abnormality.. BEHAVIORAL/PSYCH: Negative. ENDOCRINE: Negative. PHYSICAL EXAMINATION: General Appearance: Alert, cooperative, mild distress. Neck HEENT: Supple, no lymphadenopathy, no thyroid enlargement, no carotid bruits. Lungs: Decreased breath sound bilaterally with fine rhonchi positive inspiratory expiratory wheezes with tightness. Chest Wall: Decreased expansion with deep inspiration no tenderness and no deformity was found on exam, no costochondral pain or discomfort. Heart: Regular rate and rhythm, S1, S2 positive S3 positive systolic murmur. Back: Severe scoliosis and kyphosis with significant CVA tenderness. Abdomen: Soft, non-tender, bowel sounds active all four quadrants, no masses, no organomegaly. Extremities: Generalized arthralgia has significant pain and discomfort both hips. 2+ edema decreased pulse bilaterally. Skin: Skin color, texture, tugor normal, no rashes or lesions. Neurologic: Alert oriented slight confusion, cranial nerves II to XII intact positive generalized weakness with abnormal balance and gait. ASSESSMENT AND PLAN: _Acute respiratory failure: Much better so far oxygenation has improved and she is in less dyspnea than before. Improved so far and doing well. _Severe fluid overload secondary to end-stage renal failure required dialysis patient is edematous with 2+ edema she was placed on IV furosemide will be swi tched to torsemide today. Diuretics has been decreased significantly still quite edematous at this point patient started dialysis that is probably what can of bring the fluid status down. _End-stage renal disease with much worsening condition at this point patient should be getting ready probably for dialysis the next day or 2. _COPD exacerbation: Resume DuoNeb along with Pulmicort pulmonary consultation be done patient be on a smaller dose of steroid as well continue O2. DC Solu- Medrol and switch to prednisone 40 mg. _Urinary tract infection and most likely early sepsis: Cultures remain negative patient will be switched to cefuroxime for few more days. _Chronic hydronephrosis of the right side seen urology and decision that this is quite chronic not significant does not require any intervention. _Severe bronchitis with early pneumonia: Her stridor, cough and wheezes are much better. _Hypothyroidism: Resume levothyroxine at 150 mcg daily. _Severe GERD: Remain on omeprazole 40 mg a_twice a day. _Hypertension: Has been on midodrine 5 mg twice a day resume medication. _Chronic depression: Has been on Prozac 20 mg daily._ _Chronic anemia: Mostly iron deficiency and continue Procrit along with iron supplement. _Overflow incontinence: Has been on Myrbetriq 25 mg daily. Debility: Much worsening condition at this point with quite a bit uremia and hyponatremia again continue to watch kidney function carefully patient probably will be going to dialysis by tomorrow. Objective - Vital Signs Vital signs: Vital Signs Temp 97.8 F 10/21/23 01:19 Pulse 76 10/21/23 07:35 Resp 16 10/21/23 01:19 BP 122/72 10/21/23 01:19 Pulse Ox 92 L 10/21/23 01:19 FiO2 Intake & Output 10/20/23 10/21/23 10/21/23 18:59 06:59 18:59 Intake Total 1000 Output Total 1000 400 Balance 0 -400 Weight 54 kg Intake: Oral 1000 Output: Urine 1000 400 Other: Voiding Method Toilet Toilet Diaper # Voids 1 - Labs CBC & Chem 7: 10/20/23 10:42 10/21/23 10:26 Labs: Abnormal Lab Results - Last 24 Hours (Table) 10/20/23 10/20/23 10/20/23 Range/Units 10:42 10:42 11:34 WBC 11.3 H (3.8-10.6) k/uL RBC 2.90 L (3.80-5.40) m/uL Hgb 9.4 L (11.4-16.0) gm/dL Hct 30.2 L (34.0-46.0) % MCV 104.1 H D (80.0-100.0) fL Neutrophils # 9.9 H (1.3-7.7) k/uL Lymphocytes # 0.7 L (1.0-4.8) k/uL Sodium 129 L (137-145) mmol/L Chloride 93 L (98-107) mmol/L BUN 119 H* (7-17) mg/dL Creatinine 3.64 H (0.52-1.04) mg/dL Glucose 100 H (74-99) mg/dL POC Glucose (mg/dL) 122 H (70-110) mg/dL Calcium 10.5 H (8.4-10.2) mg/dL Total Protein 6.0 L (6.3-8.2) g/dL 10/20/23 10/20/23 10/21/23 Range/Units 17:17 20:16 07:43 WBC (3.8-10.6) k/uL RBC (3.80-5.40) m/uL Hgb (11.4-16.0) gm/dL Hct (34.0-46.0) % MCV (80.0-100.0) fL Neutrophils # (1.3-7.7) k/uL Lymphocytes # (1.0-4.8) k/uL Sodium (137-145) mmol/L Chloride (98-107) mmol/L BUN (7-17) mg/dL Creatinine (0.52-1.04) mg/dL Glucose (74-99) mg/dL POC Glucose (mg/dL) 151 H 136 H 119 H (70-110) mg/dL Calcium (8.4-10.2) mg/dL Total Protein (6.3-8.2) g/dL Microbiology - Last 24 Hours (Table) 10/17/23 11:08 Blood Culture - Preliminary Blood
--- NOTE | 2023-10-22 05:31 | P.PN ---
Subjective Progress Note Date: 10/22/23 Principal diagnosis: COPD exacerbation. Pulmonary consultation dated October 17, 2023. 78-year-old female with a history of underlying severe chronic bronchial asthma/COPD. The patient apparently is a lifelong non-smoker. She presented to the emergency department, on October 15, complaining of increasing shortness of breath, cough, congestion, and difficulty in breathing. She apparently had some fever and chills, especially, the night before she was admitted. She states that she started getting sick on Mother's Day, but was even not well before then. Currently, the patient is not receiving any IV fluids. Her room air saturations are 99%. At home, she is on DuoNebs, albuterol inhaler, Wixela, and Singulair. Current labs include a white count 15.6, hemoglobin 9.6, hematocrit 32.5, and a normal platelet count. Sodium 132, potassium 4, chlorides 105, CO2 16, BUN 95, and creatinine 3.28. N-terminal proBNP is 2840. Albumin is 3.4. Calcium 10.3. Urine shows it to be positive for leukocyte Estrace, and there was 9 WBCs, in the urine, and many bacteria. She tested negative for influenza A, influenza B, RSV, and coronavirus. Chest x-ray shows changes of COPD, w ithout an acute cardiopulmonary process. Progress note dated October 18, 2023. 78-year-old female with a history of severe chronic bronchial asthma/COPD. The patient was seen in consultation yesterday. Please see the note above. Today, she is seen in room 154, observation unit. She is currently on room air. She is not receiving any IV fluids. The patient is apparently doing much better. Current labs include a white count 7.3, hemoglobin 9.5, hematocrit 32.4, and platelet count that was normal. Sodium 135, potassium 3.8, chlorides 105, CO2 17, anion gap 13, BUN 89, and creatinine 3.51. Glucose 176. Albumin 3.4. Progress note dated October 19, 2023. 78-year-old female seen today in room 154. She was admitted with a diagnosis of asthma exacerbation. Clinically, she is feeling better today. She is on room air. Not receiving any IV fluids. Her Solu-Medrol could be converted to pred nisone 40 mg a day. She should follow-up with my partner, who she sees in the office for her COPD/asthma. She had an uneventful night according to the nurse. She is feeling a bit dizzy. Today's labs include a white count 16, hemoglobin 9.6, hematocrit 32.9, and a normal platelet count. Sodium 131, potassium 3.9, chlorides 97, CO2 16, anion gap 18, BUN 111, and creatinine 3.71. The patient does have an anion gap metabolic acidosis, secondary to her renal failure. Calcium is 10.9. Phosphorus is 6.4. The patient is seen today October 20, 2023 in follow-up on the regular medical floor. She is currently sitting up in bed. Awake and alert in no acute distress. Breathing easier today compared to yesterday. States a little less dizzy today compared to yesterday. Maintaining good O2 saturations in the 90s on room air. Afebrile. Hemodynamically stable. Follow-up chest x-ray revealed interstitial densities representing bronchitis or asthma. White count 11.3. Hemoglobin 9.4. Platelets 258. Continued on DuoNeb ventilations, Symbicort, Singulair, prednisone taper. She has been seen and evaluated by urology and nephrology. Ultrasound of the kidneys and bladder revealed changes of bilateral chronic medical renal disease. Moderate hydronephrosis on the right. Suboptimal assessment of the bladder due to nondistention. Yesterday's BUN was 111 with a creatinine of 3.71 and a GFR of 11. The patient is seen today October 21, 2023 in follow-up on the regular medical floor. She is awake and alert in no acute distress. Resting comfortably in bed. Maintaining O2 saturations in the 90s on room air. No IV fluids. Glucose 119. Remains on DuoNeb ventilations, Symbicort, Singulair and a prednisone taper. Tessalon Perles for cough which has improved significantly. She remains on oral diuretics. She has been followed closely by nephrology. She had previously been on hemodialysis for approximately 2 years. She states she has been off dialysis for about 2-1/2 years. She is currently in a -400 mL balance Progress note dated October 22, 2023. The patient is seen today room 519. She continues on room air. She is not receiving any IV fluids. The patient was initially admitted with a COPD exacerbation. Currently, her respiratory status is stable and has been stable for the last few days. The patient then started having issues with dizziness, and some bladder issues as well. In addition, her kidney function is poor, and she is concerned that she may need hemodialysis again. No new labs as yet. From yesterday, the BUN was 140, and the creatinine was 3.57. Objective - Vital Signs Vital signs: Vital Signs Temp 97.3 F L 10/22/23 01:50 Pulse 78 10/22/23 05:05 Resp 18 10/22/23 01:50 BP 99/69 10/22/23 01:50 Pulse Ox 98 10/22/23 01:50 FiO2 Intake & Output 10/21/23 10/21/23 10/22/23 06:59 18:59 06:59 Intake Total 1080 Output Total 400 400 400 Balance -400 680 -400 Weight 54 kg 50.5 kg Intake: Oral 1080 Output: Urine 400 400 400 Other: Voiding Method Toilet Toilet Toilet # Voids 2 - Exam No acute distress, oriented 3. No conversational dyspnea. Currently on room air. HEENT examination is grossly unremarkable. Mucous membranes are moist. No oral lesions. Neck supple. Full range of motion. No adenopathy thyromegaly or neck vein distention. Cardiovascular examination reveals regular rhythm rate. S1-S2 normal. No S3 or S4. No discernible murmur noted. Heart rate 78 bpm. Heart sounds are distant. Lungs reveal clear breath sounds. Minimal rhonchi. No wheezes or crackles. Breath sounds equal bilaterally. Breath sounds are much improved. Room air saturation 98%. Abdomen soft bowel sounds are heard. No masses or tenderness. Extremities are intact. No cyanosis clubbing or edema. Skin is without rash or lesion. Neurologic examination is brief but nonfocal. - Labs CBC & Chem 7: 10/20/23 10:42 10/21/23 10:26 Labs: Abnormal Lab Results - Last 24 Hours (Table) 10/21/23 10/21/23 10/21/23 Range/Units 07:43 10:26 12:19 Sodium 125 L (137-145) mmol/L Chloride 92 L (98-107) mmol/L Carbon Dioxide 16 L (22-30) mmol/L BUN 140 H* (7-17) mg/dL Creatinine 3.57 H (0.52-1.04) mg/dL Glucose 120 H (74-99) mg/dL POC Glucose (mg/dL) 119 H 148 H (70-110) mg/dL 10/21/23 10/21/23 Range/Units 17:10 21:05 Sodium (137-145) mmol/L Chloride (98-107) mmol/L Carbon Dioxide (22-30) mmol/L BUN (7-17) mg/dL Creatinine (0.52-1.04) mg/dL Glucose (74-99) mg/dL POC Glucose (mg/dL) 134 H 136 H (70-110) mg/dL Microbiology - Last 24 Hours (Table) 10/17/23 11:08 Blood Culture - Preliminary Blood Assessment and Plan Assessment: Acute exacerbation of COPD/asthma. History of osteoarthritis. History of renal failure, previously on hemodialysis. Anion gap metabolic acidosis, secondary to chronic renal failure. History of skin cancer. History of kidney stones. Osteoporosis. History of hypothyroidism. Lifelong non-smoker. Multiple other medical problems and comorbidities. Plan: Plan dated October 17, 2023. We will check a procalcitonin level. The patient states that she is a lifelong non-smoker, and has asthma. We add formoterol to her budesonide, and nebulized that twice a day. In addition, we increased her Solu-Medrol up to 60 mg every 6 hours. Will also add Singulair, 10 mg at bedtime. We will continue to follow the patient, make recommendations along the way. The patient is overall prognosis remains guarded. The patient follows with my partner, Dr. Alfredo in the office. Currently, the patient is on Rocephin. If the procalcitonin level is normal, that can be discontinued. Plan dated October 18, 2023. The patient is currently on Tessalon, Pulmicort, formoterol, Rocephin, updrafts with albuterol and ipratropium bromide, and Solu-Medrol. In addition, the patient is currently on Rocephin, and Flagyl. The patient's procalcitonin level was elevated. From the pulmonary standpoint, she is doing much better. She is on room air and saturations are 97%. I am going to discontinue the Pulmicort, and formoterol, and place her on Symbicort. Additional recommendations and suggestions are forthcoming. We will continue to follow and make recommendations. Labs, x-rays, and medications are reviewed. Prognosis is guarded. Plan dated October 19, 2023. The patient is doing well from the pulmonary standpoint. In fact, from the pulmonary standpoint exclusively, the patient could be considered for discharge. The patient's Solu-Medrol is converted to prednisone 40 mg a day. The patient should follow-up in my office, with her primary director of partner marketing, after discharge. Labs, x-rays, and medications are reviewed. The patient does have a bit of a dry cough. She is feeling much improved. She is never required supplemental oxygen. Additional recommendations and suggestions are forthcoming. Labs, x- rays, and all medications are reviewed. Plan dated October 22, 2023. The patient has been stable from the pulmonary standpoint for the last couple of days. She is on room air. She is not receiving any IV fluids. The patient then developed some dizziness, as well as some bladder spasms. Labs, x-rays, and medications are reviewed. The patient follows with my partner in the office. She will need to follow-up with him after discharge. Currently, we have the patient on Symbicort, updrafts with albuterol sulfate ipratropium bromide, and prednisone. The patient has been seen by nephrology, and urology. Time with Patient: Less than 30
[2023-10-22 06:51] LABS: Glucose,Whole Blood 118 mg/dL (70-110)
[2023-10-22 09:24] LABS: HCT 30.1 % (37.2-46.3); HGB 9.8 g/dL (12.0-15.0); MCH 33.4 pg (27.0-32.0); MCHC 32.6 g/dL (32.0-37.0); MCV 102.7 FL (80.0-97.0); Mean Platelet Volume 9.8 FL (9.5-12.2); NRBC Per 100 WBC 0 X 10*3/uL (0.00-0.01); Platelet Count 273 X 10*3/uL (140-440); RBC 2.93 X 10*6/uL (4.10-5.20); RDW 13.4 % (11.5-14.5)
--- NOTE | 2023-10-22 09:44 | P.PN ---
Subjective Progress Note Date: 10/22/23 HISTORY OF PRESENT ILLNESS: 78-year-old office patient with active medical history of end-stage renal disease was on hemodialysis earlier has been off dialysis for the last 2 years, been evaluated for renal transplant rejected, history of chronic anemia, diastolic congestive heart failure, COPD/asthma, hypertension, hyperlipidemia, hypothyroidism, chronic GERD, chronic neuropathy, severe balance and gait with multiple fall. Who also had significant weight loss last year who apparently was at the walk-in clinic yesterday for worsening shortness of breath dyspnea not been able to lay down flat in bed was sent to the emergency department because of significant cough tightness wheezes with significant respiratory distress was seen and evaluated in the emergency departmentFound to be in quite a bit of fluid overload with worsening peripheral edema and central venous congestion also found to have severe bronchial spasm tightness and wheezing. Was giving few updraft treatment which had helped UA was extremely positive for infection white blood cell was normal kidney function is much worse review of chest x-ray shows central venous congestion most likely failure with worsening kidney function. Recurrent symptoms patient was kept on Rocephin at this point, updraft treatment, will admit patient to the hospital patient is an end-stage renal failure required dialysis she is having significant fluid retention because of her kidney failure. Patient has no dialysis access currently. 10/18/2023 she is feeling slightly better kidney function is much worse continue to have wheezes and tightness still on Rocephin as a single antibiotic for her pneumonia still on steroid for her COPD exacerbation fluid overload and worsening kidney function did not: Different, nephrology had her on IV furosemide and patient believes she is having better urine output. Her creatinine is 2.53 GFR around 13 ultrasound shows left renal atrophy moderate right hydronephrosis she is not hypertensive today blood pressure is holding well will consult urology for the hydronephrosis and resume her home medication including her vitamin D and PhosLo. 10/19/2023: She was found to have hydronephrosis of the right side was seen urology today claimed that hydronephrosis has not been exist since 2019 this is a chronic finding and no change in likely to contribute to the worsening of renal function at this point. No acute surgical intervention required. Nephrology was with a slight decline in kidney function with creatinine is up to 3.71 GFR is down to 13 DC IV Lasix switched to torsemide and waiting for urology to make a conclusion on hydronephrosis repeat lab in the morning and DC calcitriol. Patient having + and symptom of shortness of breath and cough compared to before. Pulmonary najera with exacerbation of her COPD/asthma doing much better on current medication management Solu-Medrol is converted to prednisone 40 mg and he wanted to follow-up in the office upon discharge. Overall clinically patient is feeling much better compared to before has been having less sign and symptom of shortness of breath she still have anasarca and slight edema with improved compared to before. 10/20/2023: Kidney function slightly bit worse with creatinine up to 3.64 GFR around 10 bun 119. Nephrology still making adjustment medication will continue torsemide along with decreased prednisone dose hoping to improve with GFR and B UN/creatinine. I still do not see this happening and I believe patient will probably need to go on hemodialysis despite the difficult part sadly her risk for admission is extremely high currently because no resolve on current issue which probably make patient's creatinine much worse in the next week or so will require more urgent arrangement for dialysis. Patient will remain in the hospital next 24 hours at least to see if this is worse through the weekend starting dialysis would be najera to be done while she is in the hospital. 10/21/2023: Patient clinically feeling slightly better kidney function is much worse patient declining gradually despite the fact that since no access for dialysis will be easy to do and she is not a candidate for CAPD at this point with her multi scar tissue from previous bariatric surgery but believe patient has been declining more will require help soon do not feel comfortable sending her home at this point Her bun is up to 148 creatinine 3.57 she is quite bit uremic sodium down to 125. Nephrology changed her diuretics and prednisone and at this point she is getting ready for dialysis. 10/22/2023: Waiting for her lab this morning with a significant decline in GFR and elevated BUN with all the adjustment made patient still having much worsening renal function will require to initiate dialysis. Her shortness of breath and dyspnea is much better she is on room air does not require any oxygen. She is having slight bladder spasm lately does not have any indwelling catheter still having decreased urine output. Pulmonary najera doing much better with her infection and COPD exacerbation. Fluid overload has improved as well and she is on less diuretic is at this point. The big factor is her kidney function whether she is going require dialysis or not the most likely looks like we were going to start hemodialysis while she is in-house. REVIEW OF SYSTEMS: CONSTITUTIONAL: Well-developed mild respiratory distress EYES: No icterus sclerae, no conjunctivitis. EARS, NOSE, MOUTH, THROAT, and FACE: No sore throat, lymphadenopathy, carotid bruits or deformity. RESPIRATORY: Positive quite bit shortness of breath with cough wheezes. CARDIOVASCULAR: Positive PND orthopnea palpitation. GASTROINTESTINAL: No Abd pain, Nausea or vomiting, no Diarrhea or constipation, No GI Bleed, no distention or masses. GENITOURINARY: Positive urinary tract infection with polyuria and end-stage on chronic kidney failure. INTEGUMENT/BREAST: Generalized arthralgia and myalgia. HEMATOLOGIC/LYMPHATIC: Negative for bleed or purpura. MUSCULOSKELTAL: Generalized myalgia with chronic lower back pain. NEURLOGICAL: No LOC, Sz or syncope, blurred vision dizziness or abnormality.. BEHAVIORAL/PSYCH: Negative. ENDOCRINE: Negative. PHYSICAL EXAMINATION: General Appearance: Alert, cooperative, mild distress. Neck HEENT: Supple, no lymphadenopathy, no thyroid enlargement, no carotid brui ts. Lungs: Decreased breath sound bilaterally with fine rhonchi positive inspiratory expiratory wheezes with tightness. Chest Wall: Decreased expansion with deep inspiration no tenderness and no defor mity was found on exam, no costochondral pain or discomfort. Heart: Regular rate and rhythm, S1, S2 positive S3 positive systolic murmur. Back: Severe scoliosis and kyphosis with significant CVA tenderness. Abdomen: Soft, non-tender, bowel sounds active all four quadrants, no masses, no organomegaly. Extremities: Generalized arthralgia has significant pain and discomfort both hips. 2+ edema decreased pulse bilaterally. Skin: Skin color, texture, tugor normal, no rashes or lesions. Neurologic: Alert oriented slight confusion, cranial nerves II to XII intact positive generalized weakness with abnormal balance and gait. ASSESSMENT AND PLAN: _Acute respiratory failure: Much better so far oxygenation has improved and she is in less dyspnea than before. Improved so far and doing well. _Severe fluid overload secondary to end-stage renal failure required dialysis p atient is edematous with 2+ edema she was placed on IV furosemide will be switched to torsemide today. She has significantly less fluid overload than before but without aggressive diuretics or dialysis will be hard to diuresis extra fluid. _End-stage renal disease with much worsening condition at this point still waiting for lab this morning for nephrology to make the conclusion to ask vascular to come in to put dialysis catheter and start dialysis. _COPD exacerbation: Resume DuoNeb along with Pulmicort pulmonary consultation be done patient be on a smaller dose of steroid as well continue O2. DC Solu- Medrol and switch to prednisone 40 mg. _Urinary tract infection and most likely early sepsis: Cultures remain negative patient will be switched to cefuroxime for few more days. _Chronic hydronephrosis of the right side seen urology and decision that this is quite chronic not significant does not require any intervention. _Severe bronchitis with early pneumonia: Much better not having any stridor with the fluid overload cause more problem infection is cleared at this point. _Hypothyroidism: Resume levothyroxine at 150 mcg daily. _Severe GERD: Remain on omeprazole 40 mg a_twice a day. _Hypertension: Has been on midodrine 5 mg twice a day resume medication. _Chronic depression: Has been on Prozac 20 mg daily._ _Chronic anemia: Mostly iron deficiency and continue Procrit along with iron supplement. _Overflow incontinence: Continue to have little bit bladder spasm but remain on Myrbetriq. Prognosis: Fair. Discussion: Still waiting to initiate dialysis continue current management for her COPD and bronchitis/pneumonia which patient seems to do well. Still have slight bit of fluid overload she is on less diuretics at this point to lower the impact on the kidney function. Objective - Vital Signs Vital signs: Vital Signs Temp 97.5 F L 10/22/23 07:58 Pulse 84 10/22/23 07:58 Resp 18 10/22/23 07:58 BP 114/74 10/22/23 07:58 Pulse Ox 95 10/22/23 07:58 FiO2 Intake & Output 10/21/23 10/22/23 10/22/23 18:59 06:59 18:59 Intake Total 1080 Output Total 400 400 200 Balance 680 -400 -200 Weight 50.5 kg Intake: Oral 1080 Output: Urine 400 400 200 Other: Voiding Method Toilet Toilet # Voids 2 - Labs CBC & Chem 7: 10/20/23 10:42 10/21/23 10:26 Labs: Abnormal Lab Results - Last 24 Hours (Table) 10/21/23 10/21/2310/20/24 Range/Units 10:26 12:19 17:10 Sodium 125 L (137-145) mmol/L Chloride 92 L (98-107) mmol/L Carbon Dioxide 16 L (22-30) mmol/L BUN 140 H* (7-17) mg/dL Creatinine 3.57 H (0.52-1.04) mg/dL Glucose 120 H (74-99) mg/dL POC Glucose (mg/dL) 148 H 134 H (70-110) mg/dL 10/21/23 10/22/23 Range/Units 21:05 06:49 Sodium (137-145) mmol/L Chloride (98-107) mmol/L Carbon Dioxide (22-30) mmol/L BUN (7-17) mg/dL Creatinine (0.52-1.04) mg/dL Glucose (74-99) mg/dL POC Glucose (mg/dL) 136 H 118 H (70-110) mg/dL Microbiology - Last 24 Hours (Table) 10/17/23 11:08 Blood Culture - Preliminary Blood
[2023-10-22 10:18] LABS: ALT 25 U/L (8-44); AST 20 U/L (13-35); Albumin 4.1 g/dL (3.8-4.9); Albumin/Globulin Ratio 1.78 Ratio (1.60-3.17); Alkaline Phosphatase 67 U/L (41-126); BUN/Creat Ratio 29.11 Ratio (12.00-20.00); Calcium 10.8 mg/dL (8.7-10.3); Carbon Dioxide 18.6 mmol/L (21.6-31.8); Chloride 88 mmol/L (96-109); Globulin 2.3 g/dL (1.6-3.3); Glucose 94 mg/dL (70-110); Potassium 3.9 mmol/L (3.5-5.5); Sodium 132 mmol/L (135-145); Total Bilirubin 0.3 mg/dL (0.3-1.2); Total Protein 6.4 g/dL (6.2-8.2)
[2023-10-22 12:05] LABS: Glucose,Whole Blood 105 mg/dL (70-110)
--- NOTE | 2023-10-22 12:17 | P.PN ---
Subjective Patient is seen for follow-up for chronic kidney disease and acute kidney injury. status post diurese is with improvement in volume status. 24 hour urine output documented at 800 mL. No complaints of shortness of breath. Serum creatinine decreased to 4.5 today. BUN disproportionately elevated from steroids. no obvious GI bleed. Ultrasound shows left renal atrophy and moderate right hydronephrosis. Patient follows with Dr. Hennessy, no plans for intervention from urology standpoint. This is mostly chronic. Objective - Vital Signs Vital signs: Vital Signs Temp 97.5 F L 10/22/23 07:58 Pulse 76 10/22/23 11:37 Resp 18 10/22/23 08:30 BP 114/74 10/22/23 07:58 Pulse Ox 95 10/22/23 07:58 FiO2 Intake & Output 10/21/23 10/22/23 10/22/23 18:59 06:59 18:59 Intake Total 1080 120 Output Total 400 400 200 Balance 680 -400 -80 Weight 50.5 kg Intake: Oral 1080 120 Output: Urine 400 400 200 Other: Voiding Method Toilet Toilet Toilet # Voids 2 - Exam patient is awake, comfortable, alert oriented 3. No acute distress Examination of the heart S1 and S2 Examination of the lungs shows bilateral breath sounds are heard Abdomen is soft nontender Examination of lower extremities shows edema with chronic skin changes. [employer] exam grossly intact - Labs CBC & Chem 7: 10/22/23 03:44 10/22/23 03:44 Labs: Abnormal Lab Results - Last 24 Hours (Table) 10/21/23 10/21/23 10/21/23 Range/Units 12:19 17:10 21:05 WBC (4.50-10.00) X 10*3/uL RBC (4.10-5.20) X 10*6/uL Hgb (12.0-15.0) g/dL Hct (37.2-46.3) % MCV (80.0-97.0) FL MCH (27.0-32.0) pg Sodium (135-145) mmol/L Chloride (96-109) mmol/L Carbon Dioxide (21.6-31.8) mmol/L Anion Gap (4.00-12.00) mmol/L BUN (9.0-27.0) mg/dL Creatinine (0.6-1.5) mg/dL Est GFR (CKD-EPI) (>=60) BUN/Creatinine Ratio (12.00-20.00) Ratio POC Glucose (mg/dL) 148 H 134 H 136 H (70-110) mg/dL Calcium (8.7-10.3) mg/dL 10/22/23 10/22/23 10/22/23 Range/Units 03:44 03:44 06:49 WBC 11.10 H (4.50-10.00) X 10*3/uL RBC 2.93 L (4.10-5.20) X 10*6/uL Hgb 9.8 L (12.0-15.0) g/dL Hct 30.1 L (37.2-46.3) % MCV 102.7 H (80.0-97.0) FL MCH 33.4 H (27.0-32.0) pg Sodium 132 L (135-145) mmol/L Chloride 88 L (96-109) mmol/L Carbon Dioxide 18.6 L (21.6-31.8) mmol/L Anion Gap 25.40 H (4.00-12.00) mmol/L BUN 131.0 A* (9.0-27.0) mg/dL Creatinine 4.5 H (0.6-1.5) mg/dL Est GFR (CKD-EPI) 9 L (>=60) BUN/Creatinine Ratio 29.11 H (12.00-20.00) Ratio POC Glucose (mg/dL) 118 H (70-110) mg/dL Calcium 10.8 H (8.7-10.3) mg/dL Assessment and Plan Assessment: 1. Acute kidney injury, ATN versus progression of underlying CK D. History of hemodialysis dependent acute kidney injury with recovery of renal function to some degree and discontinuation of hemodialysis. Patient had been refusing restarting renal replacement therapy but has agreed to it now if needed. Patient did not tolerate hemodialysis well and had multiple episodes of hypotension with poorly functioning catheters previously. She has been off of dialysis for about 2 years now. I have discussed with the patient that we will proceed with starting renal replacement therapy if renal function not significantly improved tomorrow. challenge with IV fluids for 8 hours. BUN has improved from yesterday. It is disproportionately elevated from steroids and recent diuresis. 2. Chronic lower extremity edema/lymphedema with recent worsening, status post diuresis. Now improved. 3. COPD exacerbation maintained on IV steroids and updraft treatments. Being followed by pulmonology 4. CK D mineral bone disorder maintained on PhosLo and Renvela. Calcium is elevated therefore Rocaltrol will be discontinued. 5. Chronic hypotension maintained on midodrine as needed. 6. Chronic right hydronephrosis with left renal atrophy with no plans for int ervention from urology standpoint 7. Hypercalcemia in the setting of use of calcium based binder is as well as calcitriol. 8. Hyponatremia. Patient has chronic lymphedema and is currently being diu resed. cortisol level will not be accurate as patient is maintained on prednisone Plan: Gentle IV hydration for about 8 hours. Proceed with dialysis catheter placement by Dr. Montanez in a.m. if no further improvement in serum creatinine. Patient did not tolerate hemodialysis well previously, therefore I have been cautious. Consider decreasing dose of prednisone.
[2023-10-22] MEDS: SODIUM CHLORIDE 0.9% 1,000 ML IV SCH (12:37)
[2023-10-22 17:37] LABS: Glucose,Whole Blood 165 mg/dL (70-110)
[2023-10-22 20:02] LABS: Glucose,Whole Blood 179 mg/dL (70-110)
[2023-10-23 07:26] LABS: Glucose,Whole Blood 115 mg/dL (70-110)
--- NOTE | 2023-10-23 08:36 | P.PN ---
Subjective Progress Note Date: 10/23/23 HISTORY OF PRESENT ILLNESS: 78-year-old office patient with active medical history of end-stage renal disease was on hemodialysis earlier has been off dialysis for the last 2 years, been evaluated for renal transplant rejected, history of chronic anemia, diastolic congestive heart failure, COPD/asthma, hypertension, hyperlipidemia, hypothyroidism, chronic GERD, chronic neuropathy, severe balance and gait with multiple fall. Who also had significant weight loss last year who apparently was at the walk-in clinic yesterday for worsening shortness of breath dyspnea not been able to lay down flat in bed was sent to the emergency department because of significant cough tightness wheezes with significant respiratory distress was seen and evaluated in the emergency departmentFound to be in quite a bit of fluid overload with worsening peripheral edema and central venous congestion also found to have severe bronchial spasm tightness and wheezing. Was giving few updraft treatment which had helped UA was extremely positive for infection white blood cell was normal kidney function is much worse review of chest x-ray shows central venous congestion most likely failure with worsening kidney function. Recurrent symptoms patient was kept on Rocephin at this point, updraft treatment, will admit patient to the hospital patient is an end-stage renal failure required dialysis she is having significant fluid retention because of her kidney failure. Patient has no dialysis access currently. 10/18/2023 she is feeling slightly better kidney function is much worse continue to have wheezes and tightness still on Rocephin as a single antibiotic for her pneumonia still on steroid for her COPD exacerbation fluid overload and worsening kidney function did not: Different, nephrology had her on IV furosemide and patient believes she is having better urine output. Her creatinine is 2.53 GFR around 13 ultrasound shows left renal atrophy moderate right hydronephrosis she is not hypertensive today blood pressure is holding well will consult urology for the hydronephrosis and resume her home medication including her vitamin D and PhosLo. 10/19/2023: She was found to have hydronephrosis of the right side was seen urology today claimed that hydronephrosis has not been exist since 2019 this is a chronic finding and no change in likely to contribute to the worsening of renal function at this point. No acute surgical intervention required. Nephrology was with a slight decline in kidney function with creatinine is up to 3.71 GFR is down to 13 DC IV Lasix switched to torsemide and waiting for urology to make a conclusion on hydronephrosis repeat lab in the morning and DC calcitriol. Patient having + and symptom of shortness of breath and cough compared to before. Pulmonary najera with exacerbation of her COPD/asthma doing much better on current medication management Solu-Medrol is converted to prednisone 40 mg and he wanted to follow-up in the office upon discharge. Overall clinically patient is feeling much better compared to before has been having less sign and symptom of shortness of breath she still have anasarca and slight edema with improved compared to before. 10/20/2023: Kidney function slightly bit worse with creatinine up to 3.64 GFR around 10 bun 119. Nephrology still making adjustment medication will continue torsemide along with decreased prednisone dose hoping to improve with GFR and B UN/creatinine. I still do not see this happening and I believe patient will probably need to go on hemodialysis despite the difficult part sadly her risk for admission is extremely high currently because no resolve on current issue which probably make patient's creatinine much worse in the next week or so will require more urgent arrangement for dialysis. Patient will remain in the hospital next 24 hours at least to see if this is worse through the weekend starting dialysis would be najera to be done while she is in the hospital. 10/21/2023: Patient clinically feeling slightly better kidney function is much worse patient declining gradually despite the fact that since no access for dialysis will be easy to do and she is not a candidate for CAPD at this point with her multi scar tissue from previous bariatric surgery but believe patient has been declining more will require help soon do not feel comfortable sending her home at this point Her bun is up to 148 creatinine 3.57 she is quite bit uremic sodium down to 125. Nephrology changed her diuretics and prednisone and at this point she is getting ready for dialysis. 10/22/2023: Waiting for her lab this morning with a significant decline in GFR and elevated BUN with all the adjustment made patient still having much worsening renal function will require to initiate dialysis. Her shortness of breath and dyspnea is much better she is on room air does not require any oxygen. She is having slight bladder spasm lately does not have any indwelling catheter still having decreased urine output. Pulmonary najera doing much better with her infection and COPD exacerbation. Fluid overload has improved as well and she is on less diuretic is at this point. The big factor is her kidney function whether she is going require dialysis or not the most likely looks like we were going to start hemodialysis while she is in-house. 10/23/2023: Patient seen nephrology this morning her GFR and creatinine are not back yet but she is stage V chronic kidney disease required dialysis. Nephrology along with vascular make an arrangement for her to have dialysis catheter and probably will be going for hemodialysis today. REVIEW OF SYSTEMS: CONSTITUTIONAL: Well-developed mild respiratory distress EYES: No icterus sclerae, no conjunctivitis. EARS, NOSE, MOUTH, THROAT, and FACE: No sore throat, lymphadenopathy, carotid bruits or deformity. RESPIRATORY: Positive quite bit shortness of breath with cough wheezes. CARDIOVASCULAR: Positive PND orthopnea palpitation. GASTROINTESTINAL: No Abd pain, Nausea or vomiting, no Diarrhea or constipation, No GI Bleed, no distention or masses. GENITOURINARY: Positive urinary tract infection with polyuria and end-stage on chronic kidney failure. INTEGUMENT/BREAST: Generalized arthralgia and myalgia. HEMATOLOGIC/LYMPHATIC: Negative for bleed or purpura. MUSCULOSKELTAL: Generalized myalgia with chronic lower back pain. NEURLOGICAL: No LOC, Sz or syncope, blurred vision dizziness or abnormality.. BEHAVIORAL/PSYCH: Negative. ENDOCRINE: Negative. PHYSICAL EXAMINATION: General Appearance: Alert, cooperative, mild distress. Neck HEENT: Supple, no lymphadenopathy, no thyroid enlargement, no carotid bruits. Lungs: Decreased breath sound bilaterally with fine rhonchi positive inspiratory expiratory wheezes with tightness. Chest Wall: Decreased expansion with deep inspiration no tenderness and no deformity was found on exam, no costochondral pain or discomfort. Heart: Regular rate and rhythm, S1, S2 positive S3 positive systolic murmur. Back: Severe scoliosis and kyphosis with significant CVA tenderness. Abdomen: Soft, non-tender, bowel sounds active all four quadrants, no masses, no organomegaly. Extremities: Generalized arthralgia has significant pain and discomfort both hips. 2+ edema decreased pulse bilaterally. Skin: Skin color, texture, tugor normal, no rashes or lesions. Neurologic: Alert oriented slight confusion, cranial nerves II to XII intact positive generalized weakness with abnormal balance and gait. ASSESSMENT AND PLAN: _Acute respiratory failure: Much better with significantly improved condition compared to before specially with her fluid status, patient also will be going probably on dialysis which will help to reduce the extra fluid retention and probably will help. _Severe fluid overload secondary to end-stage renal failure required dialysis patient is edematous with 2+ edema she was placed on IV furosemide will be switched to torsemide today. She has significantly less fluid overload than before but without aggressive diuretics or dialysis will be hard to diuresis extra fluid. _End-stage renal disease with much worsening condition patient be going for hemodialysis today. _COPD exacerbation: Resume DuoNeb along with Pulmicort pulmonary consultation be done patient be on a smaller dose of steroid as well continue O2. DC Solu- Medrol and switch to prednisone 40 mg. _Urinary tract infection and most likely early sepsis: Cultures remain negative patient will be switched to cefuroxime for few more days. _Chronic hydronephrosis of the right side seen urology and decision that this is quite chronic not significant does not require any intervention. _Severe bronchitis with early pneumonia: Much better not having any stridor with the fluid overload cause more problem infection is cleared at this point. _Hypothyroidism: Resume levothyroxine at 150 mcg daily. _Severe GERD: Remain on omeprazole 40 mg a_twice a day. _Hypertension: Has been on midodrine 5 mg twice a day resume medication. _Chronic depression: Has been on Prozac 20 mg daily._ _Chronic anemia: Mostly iron deficiency and continue Procrit along with iron supplement. _Overflow incontinence: Continue to have little bit bladder spasm but remain on Myrbetriq. Prognosis: Fair. Discussion: Vascular be seen patient today for dialysis The patient will be starting on hemodialysis as early as today. Objective - Vital Signs Vital signs: Vital Signs Temp 98 F 10/23/23 01:46 Pulse 89 10/23/23 01:46 Resp 16 10/23/23 01:46 BP 122/78 10/23/23 01:46 Pulse Ox 95 10/23/23 01:46 FiO2 Intake & Output 10/22/23 10/22/23 10/23/23 06:59 18:59 06:59 Intake Total 800 200 Output Total 400 1600 Balance -400 -800 200 Weight 50.5 kg Intake: IV 200 200 Sodium Chloride 0.9% 1, 200 200 000 ml @ 50 mls/hr IV . Q20H [facility] Rx#:[id number] Oral 600 Output: Urine 400 1600 Other: Voiding Method Toilet Toilet Toilet - Labs CBC & Chem 7: 10/22/23 03:44 10/22/23 03:44 Labs: Abnormal Lab Results - Last 24 Hours (Table) 10/22/23 10/22/23 10/22/23 Range/Units 03:44 03:44 06:49 WBC 11.10 H (4.50-10.00) X 10*3/uL RBC 2.93 L (4.10-5.20) X 10*6/uL Hgb 9.8 L (12.0-15.0) g/dL Hct 30.1 L (37.2-46.3) % MCV 102.7 H (80.0-97.0) FL MCH 33.4 H (27.0-32.0) pg Sodium 132 L (135-145) mmol/L Chloride 88 L (96-109) mmol/L Carbon Dioxide 18.6 L (21.6-31.8) mmol/L Anion Gap 25.40 H (4.00-12.00) mmol/L BUN 131.0 A* (9.0-27.0) mg/dL Creatinine 4.5 H (0.6-1.5) mg/dL Est GFR (CKD-EPI) 9 L (>=60) BUN/Creatinine Ratio 29.11 H (12.00-20.00) Ratio POC Glucose (mg/dL) 118 H (70-110) mg/dL Calcium 10.8 H (8.7-10.3) mg/dL 10/22/23 10/22/23 Range/Units 17:36 20:00 WBC (4.50-10.00) X 10*3/uL RBC (4.10-5.20) X 10*6/uL Hgb (12.0-15.0) g/dL Hct (37.2-46.3) % MCV (80.0-97.0) FL MCH (27.0-32.0) pg Sodium (135-145) mmol/L Chloride (96-109) mmol/L Carbon Dioxide (21.6-31.8) mmol/L Anion Gap (4.00-12.00) mmol/L BUN (9.0-27.0) mg/dL Creatinine (0.6-1.5) mg/dL Est GFR (CKD-EPI) (>=60) BUN/Creatinine Ratio (12.00-20.00) Ratio POC Glucose (mg/dL) 165 H 179 H (70-110) mg/dL Calcium (8.7-10.3) mg/dL Microbiology - Last 24 Hours (Table) 10/17/23 11:08 Blood Culture - Final Blood
[2023-10-23] MEDS: IPRATROPIUM-ALBUTEROL 3 ML NEB INHALATION SCH (08:41)
--- NOTE | 2023-10-23 08:50 | P.PN ---
Subjective Patient is seen in follow-up for acute kidney injury on chronic kidney disease. Creatinine 4.5 yesterday. Feels weak. Oral intake fair. No vomiting or diarrhea. Received IV fluids overnight. Vital signs are stable. General: No acute distress. HEENT: Head exam is unremarkable. LUNGS: No audible rhonchi or wheezes. HEART: Rate and Rhythm are regular. ABDOMEN: Nontender. EXTREMITITES: 1+ edema. Objective - Vital Signs Vital signs: Vital Signs Temp 97.5 F L 10/23/23 07:19 Pulse 75 10/23/23 08:43 Resp 16 10/23/23 08:43 BP 112/64 10/23/23 07:19 Pulse Ox 91 L 10/23/23 07:19 FiO2 Intake & Output 10/22/23 10/23/23 10/23/23 18:59 06:59 18:59 Intake Total 800 200 Output Total 1600 Balance -800 200 Weight 33 kg Intake: IV 200 200 Sodium Chloride 0.9% 1, 200 200 000 ml @ 50 mls/hr IV . Q20H [facility] Rx#:[id number] Oral 600 Output: Urine 1600 Other: Voiding Method Toilet Toilet - Labs CBC & Chem 7: 10/22/23 03:44 10/22/23 03:44 Labs: Abnormal Lab Results - Last 24 Hours (Table) 10/22/23 10/22/23 10/22/23 Range/Units 03:44 03:44 17:36 WBC 11.10 H (4.50-10.00) X 10*3/uL RBC 2.93 L (4.10-5.20) X 10*6/uL Hgb 9.8 L (12.0-15.0) g/dL Hct 30.1 L (37.2-46.3) % MCV 102.7 H (80.0-97.0) FL MCH 33.4 H (27.0-32.0) pg Sodium 132 L (135-145) mmol/L Chloride 88 L (96-109) mmol/L Carbon Dioxide 18.6 L (21.6-31.8) mmol/L Anion Gap 25.40 H (4.00-12.00) mmol/L BUN 131.0 A* (9.0-27.0) mg/dL Creatinine 4.5 H (0.6-1.5) mg/dL Est GFR (CKD-EPI) 9 L (>=60) BUN/Creatinine Ratio 29.11 H (12.00-20.00) Ratio POC Glucose (mg/dL) 165 H (70-110) mg/dL Calcium 10.8 H (8.7-10.3) mg/dL 10/22/23 10/23/23 Range/Units 20:00 07:24 WBC (4.50-10.00) X 10*3/uL RBC (4.10-5.20) X 10*6/uL Hgb (12.0-15.0) g/dL Hct (37.2-46.3) % MCV (80.0-97.0) FL MCH (27.0-32.0) pg Sodium (135-145) mmol/L Chloride (96-109) mmol/L Carbon Dioxide (21.6-31.8) mmol/L Anion Gap (4.00-12.00) mmol/L BUN (9.0-27.0) mg/dL Creatinine (0.6-1.5) mg/dL Est GFR (CKD-EPI) (>=60) BUN/Creatinine Ratio (12.00-20.00) Ratio POC Glucose (mg/dL) 179 H 115 H (70-110) mg/dL Calcium (8.7-10.3) mg/dL Microbiology - Last 24 Hours (Table) 10/17/23 11:08 Blood Culture - Final Blood Assessment and Plan Plan: Assessment: 1. Acute kidney injury secondary to ATN versus progression of underlying chronic kidney disease. Creatinine 4.5 yesterday. Received IV fluids overnight. Labs from this morning pending. 2. Chronic lower extremity edema/lymphedema. 3. Chronic kidney disease mineral bone disease. Calcium elevated at 10.8 yesterday. Calcitriol has been discontinued. Also on PhosLo. 4. Chronic hypotension maintained on midodrine as needed. 5. Chronic right-sided hydronephrosis with left renal atrophy. No interventions planned by urology. 6. Metabolic acidosis secondary to acute kidney injury/chronic kidney disease. On oral bicarb. 7. Anemia of chronic kidney disease. Plan: Follow-up morning labs. If no improvement in renal function, will initiate renal replacement therapy. Stop PhosLo. Increase Renvela. Check iron studies. Patient in agreement with the above plan.
[2023-10-23 10:28] LABS: HGB 8.6 g/dL (12.0-15.0); MCH 32.2 pg (27.0-32.0); MCHC 30.7 g/dL (32.0-37.0); MCV 104.9 FL (80.0-97.0); Mean Platelet Volume 9.9 FL (9.5-12.2); NRBC Per 100 WBC 0 X 10*3/uL (0.00-0.01); Platelet Count 212 X 10*3/uL (140-440); RBC 2.67 X 10*6/uL (4.10-5.20); RDW 13.7 % (11.5-14.5); WBC 12.18 X 10*3/uL (4.50-10.00)
[2023-10-23 11:48] LABS: ALT 23 U/L (8-44); AST 19 U/L (13-35); Albumin 3.6 g/dL (3.8-4.9); Alkaline Phosphatase 56 U/L (41-126); BUN/Creat Ratio 34.39 Ratio (12.00-20.00); Carbon Dioxide 20.7 mmol/L (21.6-31.8); Chloride 95 mmol/L (96-109); Globulin 1.8 g/dL (1.6-3.3); Glucose 95 mg/dL (70-110); Potassium 4.3 mmol/L (3.5-5.5); Sodium 137 mmol/L (135-145); Total Bilirubin 0.3 mg/dL (0.3-1.2); Total Protein 5.4 g/dL (6.2-8.2)
[2023-10-23 12:48] LABS: Glucose,Whole Blood 128 mg/dL (70-110)
[2023-10-23] MEDS: SEVELAMER 800 MG TAB PO SCH (13:15)
--- NOTE | 2023-10-23 14:00 | P.GSCN ---
History of Present Illness Consult date: 10/23/23 Reason for Consult: Permacath needed Requesting physician: Augustus Pace History of present illness: This is a pleasant 78-year-old female with a history of chronic kidney disease with previous need for hemodialysis who presented to the emergency department about a week ago who was seen in walk-in clinic for shortness of breath sent to the emergency department for further evaluation concerns for respiratory distre ss. Patient was in fluid overload and admitted to the hospital. She has a past medical history including chronic anemia, heart failure, COPD, hypertension, hyperlipidemia hypothyroidism, GERD, chronic neuropathy and multiple falls. Patient has been seen by multiple consultants. She has been followed by nephrology with worsening BUN and creatinine. Recommendation is to start renal replacement therapy. Patient states last time she had dialysis was about to 2- 1/2 years ago. Patient has been seen in the past by Dr. Montanez and she had a left upper extremity loop forearm brachial AV graft done in 2018. She had undergone fistulogram with thrombectomy in 2019 with a repeat in December 2019 with unsuccessful attempt opening of the left AV graft. Patient had no longer required hemodialysis therapy. Patient was just up ambulating in the hallway with physical therapy. She denies any shortness of breath or chest pain at this time. Denies any fever, chills, nausea or vomiting. States that she is been voiding well. WBC 12 hemoglobin 8.6 platelet count 212,000 BUN 21.3 creatinine 141 Past Medical History Past Medical History: Asthma, Cancer, COPD, Osteoarthritis (OA), Renal Disease, Thyroid Disorder Additional Past Medical History / Comment(s): kidney stones and UTI,steroid injection October 2018 hx lymphedema, hx pulmonary fibrosis, hx graves,hx rt foot torn ligaments,hx kidney stones, hx osteoporosis,hypotension, wears oxygen if feels like she needs it; vitamin D deficiency, hypocalcemia,. 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 PER [facility] NOT [facility] MDRO Source:: Urine Past Surgical History: Bariatric Surgery Additional Past Surgical History / Comment(s): hx bariatric surgery-Kye En Y,lung biopsy,radioactive iodine-tx thyroid,rectal and bladder suspensions,vaginal surgery as a child,partha carpel tunnel,rt knee meniscus repair,D&C x3, left arm fistula 02/08/19 (not working), left broken wrist, broken right wrist Past Anesthesia/Blood Transfusion Reactions: Previous Problems w/ Anesthesia, Postoperative Nausea & Vomiting (PONV) Additional Past Anesthesia/Blood Transfusion Reaction / Comm: decrease bp with anesthesia,no problems with prior blood transfusion Smoking Status: Never smoker - Past Family History Father Family Medical History: Pulmonary Embolus Additional Family Medical History / Comment(s): . Mother Family Medical History: Cancer Additional Family Medical History / Comment(s): . Sister(s) Family Medical History: Cancer Additional Family Medical History / Comment(s): . Daughter(s) Additional Family Medical History / Comment(s): lymphedema in legs Brother(s) Family Medical History: Cancer Additional Family Medical History / Comment(s): skin cancer Medications and Allergies Home Medications Medication Instructions Recorded Confirmed Type FLUoxetine HCL [PROzac] 20 mg PO BID 08/23/18 10/17/23 History Montelukast [Singulair] 10 mg PO HS 08/23/18 10/17/23 History Omeprazole 40 mg PO AC-BID 11/19/18 10/17/23 History Sodium Bicarbonate Tab 1,950 mg PO TID 07/22/19 10/17/23 History traMADol HCL [Ultram] 50 mg PO Q8H PRN 07/22/19 10/17/23 History Loratadine 10 mg PO DAILY 12/06/19 10/17/23 History Magnesium Chloride [Mag64] 64 mg PO DAILY 12/06/19 10/17/23 History Methenamine Hippurate 1 gm PO BID 01/25/21 10/17/23 History Mirabegron [Myrbetriq] 25 mg PO DAILY 01/25/21 10/17/23 History Albuterol Inhaler [Ventolin Hfa 2 puff INHALATION RT-Q6H PRN 02/07/23 10/17/23 History Inhaler] Benzonatate [Tessalon Perle] 200 mg PO TID PRN 02/07/23 10/17/23 History Docusate [Colace] 200 mg PO BID 02/07/23 10/17/23 History Levothyroxine Sodium [Synthroid] 150 mcg PO DAILY 02/07/23 10/17/23 History Potassium Chloride [Klor-Con 8] 8 meq PO DAILY 02/07/23 10/17/23 History calcitrioL 1.5 mcg PO BID 02/07/23 10/17/23 History Albuterol Nebulized [Ventolin 2.5 mg INHALATION RT-Q6H PRN 10/17/23 10/17/23 History Nebulized] Ascorbic Acid [Vitamin C] 1,000 mg PO DAILY 10/17/23 10/17/23 History Bumetanide [BUMEX] 1 mg PO DAILY 10/17/23 10/17/23 History Calcium Acetate [Phoslo] 1,334 mg PO BID PRN 10/17/23 10/17/23 History Calcium Acetate [Phoslo] 2,004 mg PO AC-TID 10/17/23 10/17/23 History Ergocalciferol [Vitamin D2 (1250 1,250 mcg PO DIRECTED 10/17/23 10/17/23 History Mcg = 19689 Iu)] Gabapentin [Neurontin] 300 mg PO BID 10/17/23 10/17/23 History Midodrine [ProAmatine] 5 mg PO DAILY PRN 10/17/23 10/17/23 History Prolia (Unknown Dose) 60 mg IM Q180D 10/17/23 10/17/23 History Sevelamer [Renvela] 800 mg PO AC-TID 10/17/23 10/17/23 History Turmeric Root Extract [Turmeric] 500 mg PO DAILY 10/17/23 10/17/23 History metroNIDAZOLE [Flagyl] 250 mg PO DAILY 10/17/23 10/17/23 History Allergies Allergy/AdvReac Type Severity Reaction Status Date / Time adhesive tape Allergy Rash/Hives Verified 10/17/23 08:41 Sulfa (Sulfonamide Allergy Itching Verified 10/17/23 08:41 Antibiotics) codeine AdvReac Nausea Verified 10/17/23 08:41 epoetin beta [From Mircera] AdvReac Unknown Verified 10/17/23 08:41 tetracycline AdvReac Nausea & Verified 10/17/23 08:41 Vomiting Surgical - Exam Vital Signs Temp Pulse Resp BP Pulse Ox 98.6 F 83 18 96/61 96 10/16/23 18:08 10/16/23 18:08 10/16/23 18:08 10/16/23 18:08 10/16/23 18:08 General appearance: The patient is alert, oriented, appears in no acute distress. HET: Head is normocephalic and atraumatic. Pupils are equal and reactive. Neck: Supple. Heart: Regular. Lungs: Equal expansion, normal respiratory effort. Abdomen: Soft, nontender, nondistended. Extremities: Normal skin color and turgor. Neurological: No focal deficits. Strength and sensation are grossly intact. Lower extremity edema. Results - Labs 10/23/23 07:39 10/23/23 07:39 Abnormal Lab Results - Last 24 Hours (Table) 10/22/23 10/22/23 10/23/23 Range/Units 17:36 20:00 07:24 WBC (4.50-10.00) X 10*3/uL RBC (4.10-5.20) X 10*6/uL Hgb (12.0-15.0) g/dL Hct (37.2-46.3) % MCV (80.0-97.0) FL MCH (27.0-32.0) pg MCHC (32.0-37.0) g/dL POC Glucose (mg/dL) 165 H 179 H 115 H (70-110) mg/dL 10/23/23 Range/Units 07:39 WBC 12.18 H (4.50-10.00) X 10*3/uL RBC 2.67 L (4.10-5.20) X 10*6/uL Hgb 8.6 L (12.0-15.0) g/dL Hct 28.0 L (37.2-46.3) % MCV 104.9 H (80.0-97.0) FL MCH 32.2 H (27.0-32.0) pg MCHC 30.7 L (32.0-37.0) g/dL POC Glucose (mg/dL) (70-110) mg/dL Microbiology - Last 24 Hours (Table) 10/17/23 11:08 Blood Culture - Final Blood Assessment and Plan Assessment: 1. Acute on chronic kidney disease requiring hemodialysis 2. Chronic kidney disease, chronic hydronephrosis 3. Fluid overload 4. Anemia of chronic disease Plan: 1. Make patient n.p.o. after midnight 2. Will plan for tunneled catheter placement for hemodialysis tomorrow 3. Hemodialysis per recommendations from nephrology Thank you for this consultation, we will continue to follow. The impression and plan of care has been dictated as directed. I performed a history and examination of this patient, discussed the same with the dictator. I agree with the dictator's note ,documented as a scribe. Any additional findings or plans will be noted.
[2023-10-23 16:13] VITALS: BMI 20.1
[2023-10-23 17:17] LABS: Glucose,Whole Blood 143 mg/dL (70-110)
[2023-10-23 17:38] LABS: % Iron Saturation 52.3 (12.00-45.00)
--- NOTE | 2023-10-23 18:57 | P.PN ---
Subjective Progress Note Date: 10/23/23 On today's evaluation of 10/23/2023, she has a limited congested cough. She is feeling better and she is less short of breath. She is on room air oxygen. She is on DuoNeb updrafts up to 4 times a day. She is also on prednisone as part of the burst taper starting with 40 mg and the rest of the medications remain unchanged. She remains on Symbicort. In terms of her blood work, the creatinine is at 4.1 and the BUN is at 141 and the patient is going to undergo a temporary hemodialysis catheter insertion tomorrow. Sodium is at 137, potassium is at 4.3, the risk is at 12.1 and the hemoglobin is at 8.6. Most recent chest x-ray from 10/21/2023 showed no acute cardiopulmonary process. It is consistent with COPD and there is flattening of the diaphragm consistent with hyperinflation. The patient will have the catheter insertion by vascular surgery, likely Dr. Alejandro Padgett. The echocardiogram showed a preserved LV function. Objective - Vital Signs Vital signs: Vital Signs Temp 98.0 F 10/23/23 12:42 Pulse 80 10/23/23 15:45 Resp 16 10/23/23 15:45 BP 119/68 10/23/23 12:42 Pulse Ox 97 10/23/23 12:42 FiO2 Intake & Output 10/22/23 10/23/23 10/23/23 18:59 06:59 18:59 Intake Total 800 200 Output Total 1600 1200 Balance -800 200 -1200 Weight 33 kg 51.6 kg Intake: IV 200 200 Sodium Chloride 0.9% 1, 200 200 000 ml @ 50 mls/hr IV . Q20H [facility] Rx#:[id number] Oral 600 Output: Urine 1600 1200 Other: Voiding Method Toilet Toilet Toilet - Exam GENERAL EXAM: Alert, pleasant 78-year-old female, on room air, comfortable in no apparent distress. HEAD: Normocephalic. EYES: Normal reaction of pupils, equal size. NOSE: Clear with pink turbinates. THROAT: No erythema or exudates. NECK: No masses, no JVD. CHEST: No chest wall deformity. LUNGS: Equal air entry with few scattered rhonchi. CVS: S1 and S2 normal with no audible murmur, regular rhythm. ABDOMEN: No hepatosplenomegaly, normal bowel sounds, no guarding or rigidity. SPINE: No scoliosis or deformity SKIN: No rashes CENTRAL NERVOUS SYSTEM: No focal deficits, tone is normal in all 4 extremities. EXTREMITIES: There is no peripheral edema. No clubbing, no cyanosis. Peripheral pulses are intact. - Labs CBC & Chem 7: 10/23/23 07:39 10/23/23 07:39 Labs: Abnormal Lab Results - Last 24 Hours (Table) 10/22/23 10/23/23 10/23/23 Range/Units 20:00 07:24 07:39 WBC 12.18 H (4.50-10.00) X 10*3/uL RBC 2.67 L (4.10-5.20) X 10*6/uL Hgb 8.6 L (12.0-15.0) g/dL Hct 28.0 L (37.2-46.3) % MCV 104.9 H (80.0-97.0) FL MCH 32.2 H (27.0-32.0) pg MCHC 30.7 L (32.0-37.0) g/dL Chloride (96-109) mmol/L Carbon Dioxide (21.6-31.8) mmol/L Anion Gap (4.00-12.00) mmol/L BUN (9.0-27.0) mg/dL Creatinine (0.6-1.5) mg/dL Est GFR (CKD-EPI) (>=60) BUN/Creatinine Ratio (12.00-20.00) Ratio POC Glucose (mg/dL) 179 H 115 H (70-110) mg/dL % Saturation (12.00-45.00) Transferrin (204.0-354.0) mg/dL Ferritin (10.0-291.0) ng/mL Total Protein (6.2-8.2) g/dL Albumin (3.8-4.9) g/dL 10/23/23 10/23/23 10/23/23 Range/Units 07:39 07:39 12:46 WBC (4.50-10.00) X 10*3/uL RBC (4.10-5.20) X 10*6/uL Hgb (12.0-15.0) g/dL Hct (37.2-46.3) % MCV (80.0-97.0) FL MCH (27.0-32.0) pg MCHC (32.0-37.0) g/dL Chloride 95 L (96-109) mmol/L Carbon Dioxide 20.7 L (21.6-31.8) mmol/L Anion Gap 21.30 H (4.00-12.00) mmol/L BUN 141.0 A* (9.0-27.0) mg/dL Creatinine 4.1 H (0.6-1.5) mg/dL Est GFR (CKD-EPI) 11 L (>=60) BUN/Creatinine Ratio 34.39 H (12.00-20.00) Ratio POC Glucose (mg/dL) 128 H (70-110) mg/dL % Saturation 52.30 H (12.00-45.00) Transferrin 202.0 L (204.0-354.0) mg/dL Ferritin 903.0 H (10.0-291.0) ng/mL Total Protein 5.4 L (6.2-8.2) g/dL Albumin 3.6 L (3.8-4.9) g/dL 10/23/23 Range/Units 17:15 WBC (4.50-10.00) X 10*3/uL RBC (4.10-5.20) X 10*6/uL Hgb (12.0-15.0) g/dL Hct (37.2-46.3) % MCV (80.0-97.0) FL MCH (27.0-32.0) pg MCHC (32.0-37.0) g/dL Chloride (96-109) mmol/L Carbon Dioxide (21.6-31.8) mmol/L Anion Gap (4.00-12.00) mmol/L BUN (9.0-27.0) mg/dL Creatinine (0.6-1.5) mg/dL Est GFR (CKD-EPI) (>=60) BUN/Creatinine Ratio (12.00-20.00) Ratio POC Glucose (mg/dL) 143 H (70-110) mg/dL % Saturation (12.00-45.00) Transferrin (204.0-354.0) mg/dL Ferritin (10.0-291.0) ng/mL Total Protein (6.2-8.2) g/dL Albumin (3.8-4.9) g/dL Microbiology - Last 24 Hours (Table) 10/17/23 11:08 Blood Culture - Final Blood Assessment and Plan Plan: Acute exacerbation of COPD/asthma, improving and she is on RA 02 History of osteoarthritis. History of renal failure, previously on hemodialysis. Anion gap metabolic acidosis, secondary to chronic renal failure. History of skin cancer. History of kidney stones. Osteoporosis. History of hypothyroidism. Lifelong non-smoker. Multiple other medical problems and comorbidities. Plan: The patient is awaiting a temporary dialysis catheter insertion tomorrow Respiratory status is stable Chest x-ray is consistent with COPD Continue prednisone burst taper Continue DuoNeb [facility] Incentive spirometer Renal function is impaired and the patient has stage V chronic kidney disease Hemodialysis needs to be initiated within the next few days.
[2023-10-23 20:17] LABS: Glucose,Whole Blood 202 mg/dL (70-110)
[2023-10-24 07:32] LABS: Glucose,Whole Blood 99 mg/dL (70-110)
--- NOTE | 2023-10-24 10:13 | P.PN ---
Subjective Progress Note Date: 10/24/23 HISTORY OF PRESENT ILLNESS: 78-year-old office patient with active medical history of end-stage renal disease was on hemodialysis earlier has been off dialysis for the last 2 years, been evaluated for renal transplant rejected, history of chronic anemia, diastolic congestive heart failure, COPD/asthma, hypertension, hyperlipidemia, hypothyroidism, chronic GERD, chronic neuropathy, severe balance and gait with multiple fall. Who also had significant weight loss last year who apparently was at the walk-in clinic yesterday for worsening shortness of breath dyspnea not been able to lay down flat in bed was sent to the emergency department because of significant cough tightness wheezes with significant respiratory distress was seen and evaluated in the emergency departmentFound to be in quite a bit of fluid overload with worsening peripheral edema and central venous congestion also found to have severe bronchial spasm tightness and wheezing. Was giving few updraft treatment which had helped UA was extremely positive for infection white blood cell was normal kidney function is much worse review of chest x-ray shows central venous congestion most likely failure with worsening kidney function. Recurrent symptoms patient was kept on Rocephin at this point, updraft treatment, will admit patient to the hospital patient is an end-stage renal failure required dialysis she is having significant fluid retention because of her kidney failure. Patient has no dialysis access currently. 10/18/2023 she is feeling slightly better kidney function is much worse continue to have wheezes and tightness still on Rocephin as a single antibiotic for her pneumonia still on steroid for her COPD exacerbation fluid overload and worsening kidney function did not: Different, nephrology had her on IV furosemide and patient believes she is having better urine output. Her creatinine is 2.53 GFR around 13 ultrasound shows left renal atrophy moderate right hydronephrosis she is not hypertensive today blood pressure is holding well will consult urology for the hydronephrosis and resume her home medication including her vitamin D and PhosLo. 10/19/2023: She was found to have hydronephrosis of the right side was seen urology today claimed that hydronephrosis has not been exist since 2019 this is a chronic finding and no change in likely to contribute to the worsening of renal function at this point. No acute surgical intervention required. Nephrology was with a slight decline in kidney function with creatinine is up to 3.71 GFR is down to 13 DC IV Lasix switched to torsemide and waiting for urology to make a conclusion on hydronephrosis repeat lab in the morning and DC calcitriol. Patient having + and symptom of shortness of breath and cough compared to before. Pulmonary najera with exacerbation of her COPD/asthma doing much better on current medication management Solu-Medrol is converted to prednisone 40 mg and he wanted to follow-up in the office upon discharge. Overall clinically patient is feeling much better compared to before has been having less sign and symptom of shortness of breath she still have anasarca and slight edema with improved compared to before. 10/20/2023: Kidney function slightly bit worse with creatinine up to 3.64 GFR around 10 bun 119. Nephrology still making adjustment medication will continue torsemide along with decreased prednisone dose hoping to improve with GFR and B UN/creatinine. I still do not see this happening and I believe patient will probably need to go on hemodialysis despite the difficult part sadly her risk for admission is extremely high currently because no resolve on current issue which probably make patient's creatinine much worse in the next week or so will require more urgent arrangement for dialysis. Patient will remain in the hospital next 24 hours at least to see if this is worse through the weekend starting dialysis would be najera to be done while she is in the hospital. 10/21/2023: Patient clinically feeling slightly better kidney function is much worse patient declining gradually despite the fact that since no access for dialysis will be easy to do and she is not a candidate for CAPD at this point with her multi scar tissue from previous bariatric surgery but believe patient has been declining more will require help soon do not feel comfortable sending her home at this point Her bun is up to 148 creatinine 3.57 she is quite bit uremic sodium down to 125. Nephrology changed her diuretics and prednisone and at this point she is getting ready for dialysis. 10/22/2023: Waiting for her lab this morning with a significant decline in GFR and elevated BUN with all the adjustment made patient still having much worsening renal function will require to initiate dialysis. Her shortness of breath and dyspnea is much better she is on room air does not require any oxygen. She is having slight bladder spasm lately does not have any indwelling catheter still having decreased urine output. Pulmonary najera doing much better with her infection and COPD exacerbation. Fluid overload has improved as well and she is on less diuretic is at this point. The big factor is her kidney function whether she is going require dialysis or not the most likely looks like we were going to start hemodialysis while she is in-house. 10/23/2023: Patient seen nephrology this morning her GFR and creatinine are not back yet but she is stage V chronic kidney disease required dialysis. Nephrology along with vascular make an arrangement for her to have dialysis catheter and probably will be going for hemodialysis today. 10/24/2023: I had a chance to meet the daughter who was on the bedside her name is Yadira is supportive to her mom will need help in the coming few weeks. She is waiting for her procedure today for her dialysis catheter and she will be starting hemodialysis again today. GFR is down to around 10 patient definitely an urgent need for dialysis. Patient has more tired fatigue and having the constitutional symptom of end- stage renal disease was not on hemodialysis at this point. Hopefully all this will improve after dialysis started. Also her fluid overload and congestion will improve significantly. REVIEW OF SYSTEMS: CONSTITUTIONAL: Well-developed mild respiratory distress EYES: No icterus sclerae, no conjunctivitis. EARS, NOSE, MOUTH, THROAT, and FACE: No sore throat, lymphadenopathy, carotid bruits or deformity. RESPIRATORY: Positive quite bit shortness of breath with cough wheezes. CARDIOVASCULAR: Positive PND orthopnea palpitation. GASTROINTESTINAL: No Abd pain, Nausea or vomiting, no Diarrhea or constipation, No GI Bleed, no distention or masses. GENITOURINARY: Positive urinary tract infection with polyuria and end-stage on chronic kidney failure. INTEGUMENT/BREAST: Generalized arthralgia and myalgia. HEMATOLOGIC/LYMPHATIC: Negative for bleed or purpura. MUSCULOSKELTAL: Generalized myalgia with chronic lower back pain. NEURLOGICAL: No LOC, Sz or syncope, blurred vision dizziness or abnormality.. BEHAVIORAL/PSYCH: Negative. ENDOCRINE: Negative. PHYSICAL EXAMINATION: General Appearance: Alert, cooperative, mild distress. Neck HEENT: Supple, no lymphadenopathy, no thyroid enlargement, no carotid bruits. Lungs: Decreased breath sound bilaterally with fine rhonchi positive inspiratory expiratory wheezes with tightness. Chest Wall: Decreased expansion with deep inspiration no tenderness and no deformity was found on exam, no costochondral pain or discomfort. Heart: Regular rate and rhythm, S1, S2 positive S3 positive systolic murmur. Back: Severe scoliosis and kyphosis with significant CVA tenderness. Abdomen: Soft, non-tender, bowel sounds active all four quadrants, no masses, no organomegaly. Extremities: Generalized arthralgia has significant pain and discomfort both hips. 2+ edema decreased pulse bilaterally. Skin: Skin color, texture, tugor normal, no rashes or lesions. Neurologic: Alert oriented slight confusion, cranial nerves II to XII intact positive generalized weakness with abnormal balance and gait. ASSESSMENT AND PLAN: _Acute respiratory failure: Much better with significantly improved condition compared to before specially with her fluid status, patient also will be going probably on dialysis which will help to reduce the extra fluid retention and probably will help. _Severe fluid overload secondary to end-stage renal failure required dialysis patient is edematous with 2+ edema she was placed on IV furosemide will be switched to torsemide today. She has significantly less fluid overload than before but without aggressive diuretics or dialysis will be hard to diuresis extra fluid. Hopefully with dialysis starting today will help. _End-stage renal disease with much worsening condition patient be going dialysis catheter today and hopefully initiate hemodialysis in the afternoon. _COPD exacerbation: Resume DuoNeb along with Pulmicort pulmonary consultation be done patient be on a smaller dose of steroid as well continue O2. DC Solu- Medrol and switch to prednisone 40 mg. Will start tapering dose of steroid with prednisone probably as early as tomorrow. _Urinary tract infection and most likely early sepsis: Continue current ma nagement for now doing better. _Chronic hydronephrosis of the right side seen urology and decision that this is quite chronic not significant does not require any intervention. _Severe bronchitis with early pneumonia: Much better not having any stridor with the fluid overload cause more problem infection is cleared at this point. _Hypothyroidism: Resume levothyroxine at 150 mcg daily. _Severe GERD: Remain on omeprazole 40 mg a_twice a day. _Hypertension: Has been on midodrine 5 mg twice a day resume medication. _Chronic depression: Has been on Prozac 20 mg daily._ _Chronic anemia: Mostly iron deficiency and continue Procrit along with iron supplement. _Overflow incontinence: Continue to have little bit bladder spasm but remain on Myrbetriq. Prognosis: Fair. Discussion: Patient is having dialysis catheter will start dialysis today which will help her arrangement probably for home care and outpatient dialysis will be made for the next 2 days. Objective - Vital Signs Vital signs: Vital Signs Temp 97.5 F L 10/24/23 01:40 Pulse 78 10/24/23 01:40 Resp 15 10/24/23 01:40 BP 112/62 10/24/23 01:40 Pulse Ox 94 L 10/24/23 01:40 FiO2 Intake & Output 10/23/23 10/23/23 10/24/23 06:59 18:59 06:59 Intake Total 200 Output Total 1200 600 Balance 200 -1200 -600 Weight 33 kg 51.6 kg 51.5 kg Intake: IV 200 Sodium Chloride 0.9% 1, 200 000 ml @ 50 mls/hr IV . Q20H [facility] Rx#:[id number] Output: Urine 1200 600 Other: Voiding Method Toilet Toilet Toilet - Labs CBC & Chem 7: 10/23/23 07:39 10/23/23 07:39 Labs: Abnormal Lab Results - Last 24 Hours (Table) 10/23/23 10/23/23 10/23/23 Range/Units 07:24 07:39 07:39 WBC 12.18 H (4.50-10.00) X 10*3/uL RBC 2.67 L (4.10-5.20) X 10*6/uL Hgb 8.6 L (12.0-15.0) g/dL Hct 28.0 L (37.2-46.3) % MCV 104.9 H (80.0-97.0) FL MCH 32.2 H (27.0-32.0) pg MCHC 30.7 L (32.0-37.0) g/dL Chloride 95 L (96-109) mmol/L Carbon Dioxide 20.7 L (21.6-31.8) mmol/L Anion Gap 21.30 H (4.00-12.00) mmol/L BUN 141.0 A* (9.0-27.0) mg/dL Creatinine 4.1 H (0.6-1.5) mg/dL Est GFR (CKD-EPI) 11 L (>=60) BUN/Creatinine Ratio 34.39 H (12.00-20.00) Ratio POC Glucose (mg/dL) 115 H (70-110) mg/dL % Saturation (12.00-45.00) Transferrin (204.0-354.0) mg/dL Ferritin (10.0-291.0) ng/mL Total Protein 5.4 L (6.2-8.2) g/dL Albumin 3.6 L (3.8-4.9) g/dL 10/23/23 10/23/23 10/23/23 Range/Units 07:39 12:46 17:15 WBC (4.50-10.00) X 10*3/uL RBC (4.10-5.20) X 10*6/uL Hgb (12.0-15.0) g/dL Hct (37.2-46.3) % MCV (80.0-97.0) FL MCH (27.0-32.0) pg MCHC (32.0-37.0) g/dL Chloride (96-109) mmol/L Carbon Dioxide (21.6-31.8) mmol/L Anion Gap (4.00-12.00) mmol/L BUN (9.0-27.0) mg/dL Creatinine (0.6-1.5) mg/dL Est GFR (CKD-EPI) (>=60) BUN/Creatinine Ratio (12.00-20.00) Ratio POC Glucose (mg/dL) 128 H 143 H (70-110) mg/dL % Saturation 52.30 H (12.00-45.00) Transferrin 202.0 L (204.0-354.0) mg/dL Ferritin 903.0 H (10.0-291.0) ng/mL Total Protein (6.2-8.2) g/dL Albumin (3.8-4.9) g/dL 10/23/23 Range/Units 20:15 WBC (4.50-10.00) X 10*3/uL RBC (4.10-5.20) X 10*6/uL Hgb (12.0-15.0) g/dL Hct (37.2-46.3) % MCV (80.0-97.0) FL MCH (27.0-32.0) pg MCHC (32.0-37.0) g/dL Chloride (96-109) mmol/L Carbon Dioxide (21.6-31.8) mmol/L Anion Gap (4.00-12.00) mmol/L BUN (9.0-27.0) mg/dL Creatinine (0.6-1.5) mg/dL Est GFR (CKD-EPI) (>=60) BUN/Creatinine Ratio (12.00-20.00) Ratio POC Glucose (mg/dL) 202 H (70-110) mg/dL % Saturation (12.00-45.00) Transferrin (204.0-354.0) mg/dL Ferritin (10.0-291.0) ng/mL Total Protein (6.2-8.2) g/dL Albumin (3.8-4.9) g/dL Microbiology - Last 24 Hours (Table) 10/17/23 11:08 Blood Culture - Final Blood
[2023-10-24] MEDS ORDERED: HEPARIN SODIUM 1,000 UN/ML (10ML VL) ONE (10:15)
[2023-10-24] MEDS ORDERED: LIDOCAINE 1% INJ 10MG/ML (20 ML MDV) ONE (10:15)
[2023-10-24] MEDS ORDERED: fentaNYL (PF) 50 MCG/ML 2 ML AMP ONE (10:15)
--- NOTE | 2023-10-24 10:17 | P.PN ---
Subjective Patient is seen in follow-up for acute kidney injury on chronic kidney disease. Creatinine 4.1 yesterday. Feels weak. Oral intake fair. No vomiting or diarrhea. Scheduled for permacath placement and dialysis today. Vital signs are stable. General: No acute distress. HEENT: Head exam is unremarkable. LUNGS: No audible rhonchi or wheezes. HEART: Rate and Rhythm are regular. ABDOMEN: Nontender. EXTREMITITES: 1+ edema. Objective - Vital Signs Vital signs: Vital Signs Temp 97.6 F 10/24/23 07:28 Pulse 70 10/24/23 09:43 Resp 17 10/24/23 07:28 BP 144/78 10/24/23 07:28 Pulse Ox 94 L 10/24/23 07:28 FiO2 Intake & Output 10/23/23 10/24/23 10/24/23 18:59 06:59 18:59 Output Total 1200 600 Balance -1200 -600 Weight 51.6 kg 51.5 kg Output: Urine 1200 600 Other: Voiding Method Toilet Toilet - Labs CBC & Chem 7: 10/23/23 07:39 10/23/23 07:39 Labs: Abnormal Lab Results - Last 24 Hours (Table) 10/23/23 10/23/23 10/23/23 Range/Units 07:39 07:39 07:39 WBC 12.18 H (4.50-10.00) X 10*3/uL RBC 2.67 L (4.10-5.20) X 10*6/uL Hgb 8.6 L (12.0-15.0) g/dL Hct 28.0 L (37.2-46.3) % MCV 104.9 H (80.0-97.0) FL MCH 32.2 H (27.0-32.0) pg MCHC 30.7 L (32.0-37.0) g/dL Chloride 95 L (96-109) mmol/L Carbon Dioxide 20.7 L (21.6-31.8) mmol/L Anion Gap 21.30 H (4.00-12.00) mmol/L BUN 141.0 A* (9.0-27.0) mg/dL Creatinine 4.1 H (0.6-1.5) mg/dL Est GFR (CKD-EPI) 11 L (>=60) BUN/Creatinine Ratio 34.39 H (12.00-20.00) Ratio POC Glucose (mg/dL) (70-110) mg/dL % Saturation 52.30 H (12.00-45.00) Transferrin 202.0 L (204.0-354.0) mg/dL Ferritin 903.0 H (10.0-291.0) ng/mL Total Protein 5.4 L (6.2-8.2) g/dL Albumin 3.6 L (3.8-4.9) g/dL 10/23/23 10/23/23 10/23/23 Range/Units 12:46 17:15 20:15 WBC (4.50-10.00) X 10*3/uL RBC (4.10-5.20) X 10*6/uL Hgb (12.0-15.0) g/dL Hct (37.2-46.3) % MCV (80.0-97.0) FL MCH (27.0-32.0) pg MCHC (32.0-37.0) g/dL Chloride (96-109) mmol/L Carbon Dioxide (21.6-31.8) mmol/L Anion Gap (4.00-12.00) mmol/L BUN (9.0-27.0) mg/dL Creatinine (0.6-1.5) mg/dL Est GFR (CKD-EPI) (>=60) BUN/Creatinine Ratio (12.00-20.00) Ratio POC Glucose (mg/dL) 128 H 143 H 202 H (70-110) mg/dL % Saturation (12.00-45.00) Transferrin (204.0-354.0) mg/dL Ferritin (10.0-291.0) ng/mL Total Protein (6.2-8.2) g/dL Albumin (3.8-4.9) g/dL Assessment and Plan Plan: Assessment: 1. Acute kidney injury secondary to ATN versus progression of underlying chronic kidney disease stage IV. Patient has been on hemodialysis in the past. Creatinine 4.1 yesterday. 2. Chronic lower extremity edema/lymphedema. 3. Chronic kidney disease mineral bone disease. Calcium level noted to be elevated this admission -10.0 yesterday. Calcitriol and PhosLo have been discontinued. On Renvela. 4. Chronic hypotension maintained on midodrine as needed. 5. Chronic right-sided hydronephrosis with left renal atrophy. No interventions planned by urology. 6. Metabolic acidosis secondary to acute kidney injury/chronic kidney disease. On oral bicarb. 7. Anemia of chronic kidney disease. Iron replete. Plan: Scheduled for permacath placement today. Plan for first treatment of hemodialysis today and second treatment tomorrow. geotechnical department manager to set up outpatient hemodialysis. Add Aranesp. Check phosphorus level in the morning.
[2023-10-24] MEDS: SODIUM CHLORIDE 0.9% 1,000 ML IV ONE (10:50)
[2023-10-24] MEDS: MIDAZOLAM 2 MG/2 ML VIAL IVP ONE ×2 (10:50→11:08)
[2023-10-24] MEDS: fentaNYL (PF) 50 MCG/ML 2 ML AMP IVP ONE ×2 (10:50→11:06)
[2023-10-24] MEDS: LIDOCAINE 1% INJ 10MG/ML (20 ML MDV) SQ ONE (11:04)
[2023-10-24] MEDS: ceFAZolin 1,000 MG VIAL IVPB ONE (11:06)
--- NOTE | 2023-10-24 11:48 | P.OP ---
Date of Procedure: 10/24/23 Description of Procedure: DATE OF PROCEDURE: 10/24/2023 PREOPERATIVE DIAGNOSIS: Need for dialysis PROCEDURE: 1. Ultrasound-guided right internal jugular vein access. 2. Placement of a 19 cm tunneled dialysis catheter with fluoroscopic assistance. 3. Moderate conscious sedation times 37 minutes PROCEDURE: The patient was brought to the Storage Worker placed in supine position. The bilateral necks were prepped and draped in usual sterile fashion. A preprocedure timeout was performed, all parties were in agreement. Using ultrasound the right internal jugular was identified. The site overlying the vein was anesthetized with 1% lidocaine plain and an access needle was used to gain access to the internal jugular vein with return of dark venous, nonpulsatile blood. Seldinger technique was used and a micro-access sheath was placed. Attention was then turned towards the tunnel. The chest wall was anesthetized with 1% lidocaine plain. A small cary and the skin was made and the previously flushed catheter was tunneled through the anticipated location. Using Seldinger technique and fluoroscopic assistance, the 35 Glidewire was placed and the tract was serially dilated. The final tear-away sheath was left in place. The inner cannula and wire were removed. The catheter was placed in the tear-away sheath was removed in standard fashion. The catheter showed good positioning was final resting place in the cavoatrial junction. The catheter aspirated and flushed freely. The incision at the neck was reapproximated with interrupted sutures of 4-0 Vicryl. The catheter was sutured in place with 3-0 nylon. Dressings were placed. The patient was allowed to awaken from anesthesia and transferred to recovery in stable condition having tolerated the procedure well. A post procedure chest x-ray is pending
--- NOTE | 2023-10-24 12:15 | IR ---
EXAMINATION TYPE: IR cvc insert central tunneled Intraoperative/procedural fluoroscopic services were provided. CLINICAL INDICATION:Female, 78 years old with history of DIALYSIS CATHETER 0.3 mins FL, DAP: 0.252Gyc m2; , [facility] Total fluoroscopy time is 0.3 min. DAP: 0.118 Gycm2 Please see the operative/procedural note for further details.
--- NOTE | 2023-10-24 12:30 | XR ---
EXAMINATION TYPE: XR chest 1V portable DATE OF EXAM: 10/24/2023 COMPARISON: 10/21/2023 INDICATION: Catheter placement TECHNIQUE: Single frontal view of the chest is obtained. FINDINGS: The heart size is normal. The pulmonary vasculature is normal. The lungs are clear. Catheter is placed on the right with the tip in the region of the superior vena cava right atrial bonita ction. No pneumothorax evident. IMPRESSION: 1. No acute pulmonary process. 2. Right central venous catheter placement with the tip in the superior vena cava right atrial juncti on. No pneumothorax evident.
[2023-10-24 12:53] LABS: Glucose,Whole Blood 106 mg/dL (70-110)
[2023-10-24 14:27] VITALS: RESP 16
[2023-10-24 14:45] LABS: Magnesium 2.4 mg/dL (1.5-2.4)
[2023-10-24 15:04] LABS: Hepatitis B Surface Antigen Nonreactive (Nonreactive)
[2023-10-24 15:25] LABS: BUN/Creat Ratio 34.19 Ratio (12.00-20.00); Glucose 93 mg/dL (70-110)
[2023-10-24 15:26] LABS: Calcium 9.7 mg/dL (8.7-10.3); Carbon Dioxide 16.9 mmol/L (21.6-31.8); Chloride 95 mmol/L (96-109); Potassium 4.4 mmol/L (3.5-5.5); Sodium 138 mmol/L (135-145)
[2023-10-24 17:10] LABS: Glucose,Whole Blood 167 mg/dL (70-110)
[2023-10-24] MEDS: ONDANSETRON 4 MG/2 ML VIAL IVP PRN (17:59)
[2023-10-24] MEDS: DARBEPOETIN ALFA 40 MCG/0.4 ML SYRINGE SQ SCH (18:33)
[2023-10-24 20:39] LABS: Glucose,Whole Blood 117 mg/dL (70-110)
--- NOTE | 2023-10-24 23:21 | P.PN ---
Subjective Progress Note Date: 10/24/23 On today's evaluation of 10/23/2023, she has a limited congested cough. She is feeling better and she is less short of breath. She is on room air oxygen. She is on DuoNeb updrafts up to 4 times a day. She is also on prednisone as part of the burst taper starting with 40 mg and the rest of the medications remain unchanged. She remains on Symbicort. In terms of her blood work, the creatinine is at 4.1 and the BUN is at 141 and the patient is going to undergo a temporary hemodialysis catheter insertion tomorrow. Sodium is at 137, potassium is at 4.3, the risk is at 12.1 and the hemoglobin is at 8.6. Most recent chest x-ray from 10/21/2023 showed no acute cardiopulmonary process. It is consistent with COPD and there is flattening of the diaphragm consistent with hyperinflation. The patient will have the catheter insertion by vascular surgery, likely Dr. Alejandro Montanez The echocardiogram showed a preserved LV function. On today's evaluation on 10/24/2023, patient is being seen for a follow-up. Patient was given a dialysis catheter today and the patient will be started on hemodialysis for acute kidney injury. Creatinine from yesterday was at 4.1. Overall, she is feeling weak. Blood work from today shows a potassium level of 4.4 with a serum bicarb of 16.9. Sodium level is 147 with a potassium level of 4.3. She remains on room air oxygen with a pulse ox of 92%. Chest x-ray this was done following the catheter insertion showed that the catheter was placed without any complication the patient has no acute cardiopulmonary process. Remains on DuoNeb nebulizer treatments [id number]. Remains on Symbicort. Remains on prednisone burst taper starting with 40 mg p.o. daily. Objective - Vital Signs Vital signs: Vital Signs Temp 97.6 F 10/24/23 07:28 Pulse 70 10/24/23 09:43 Resp 17 10/24/23 07:28 BP 144/78 10/24/23 07:28 Pulse Ox 94 L 10/24/23 07:28 FiO2 Intake & Output 10/23/23 10/24/23 10/24/23 18:59 06:59 18:59 Output Total 1200 600 500 Balance -1200 -600 -500 Weight 51.6 kg 51.5 kg Output: Urine 1200 600 500 Other: Voiding Method Toilet Toilet - Exam GENERAL EXAM: Alert, pleasant 78-year-old female, on room air, comfortable in no apparent distress. HEAD: Normocephalic. EYES: Normal reaction of pupils, equal size. NOSE: Clear with pink turbinates. THROAT: No erythema or exudates. NECK: No masses, no JVD. CHEST: No chest wall deformity. LUNGS: Equal air entry with few scattered rhonchi. CVS: S1 and S2 normal with no audible murmur, regular rhythm. ABDOMEN: No hepatosplenomegaly, normal bowel sounds, no guarding or rigidity. SPINE: No scoliosis or deformity SKIN: No rashes CENTRAL NERVOUS SYSTEM: No focal deficits, tone is normal in all 4 extremities. EXTREMITIES: There is no peripheral edema. No clubbing, no cyanosis. Peripheral pulses are intact. - Labs CBC & Chem 7: 10/23/23 07:39 10/24/23 07:28 Labs: Abnormal Lab Results - Last 24 Hours (Table) 10/23/23 10/23/23 10/23/23 Range/Units 07:39 12:46 17:15 POC Glucose (mg/dL) 128 H 143 H (70-110) mg/dL % Saturation 52.30 H (12.00-45.00) Transferrin 202.0 L (204.0-354.0) mg/dL Ferritin 903.0 H (10.0-291.0) ng/mL 10/23/23 Range/Units 20:15 POC Glucose (mg/dL) 202 H (70-110) mg/dL % Saturation (12.00-45.00) Transferrin (204.0-354.0) mg/dL Ferritin (10.0-291.0) ng/mL Assessment and Plan Plan: Acute exacerbation of COPD/asthma, improving and she is on RA 02, chest x-ray post line insertion shows no acute cardiopulmonary process. Chronic kidney disease, dialysis catheter was inserted and the patient will be started on hemodialysis. History of renal failure, previously on hemodialysis. Anion gap metabolic acidosis, secondary to chronic renal failure. History of skin cancer. History of kidney stones. Osteoporosis. History of hypothyroidism. Lifelong non-smoker. Multiple other medical problems and comorbidities. Plan: T dialysis to be reinitiated today Respiratory status is stable Chest x-ray is consistent with COPD, no other acute abnormalities Continue prednisone burst taper, currently on 40 mg as part of adverse taper Continue Cam[facility] Incentive spirometer Renal function is impaired and the patient has stage V chronic kidney disease Hemodialysis to be started today
[2023-10-25 07:19] LABS: Glucose,Whole Blood 161 mg/dL (70-110)
--- NOTE | 2023-10-25 08:56 | P.PN ---
Subjective Progress Note Date: 10/25/23 HISTORY OF PRESENT ILLNESS: 78-year-old office patient with active medical history of end-stage renal disease was on hemodialysis earlier has been off dialysis for the last 2 years, been evaluated for renal transplant rejected, history of chronic anemia, diastolic congestive heart failure, COPD/asthma, hypertension, hyperlipidemia, hypothyroidism, chronic GERD, chronic neuropathy, severe balance and gait with multiple fall. Who also had significant weight loss last year who apparently was at the walk-in clinic yesterday for worsening shortness of breath dyspnea not been able to lay down flat in bed was sent to the emergency department because of significant cough tightness wheezes with significant respiratory distress was seen and evaluated in the emergency departmentFound to be in quite a bit of fluid overload with worsening peripheral edema and central venous congestion also found to have severe bronchial spasm tightness and wheezing. Was giving few updraft treatment which had helped UA was extremely positive for infection white blood cell was normal kidney function is much worse review of chest x-ray shows central venous congestion most likely failure with worsening kidney function. Recurrent symptoms patient was kept on Rocephin at this point, updraft treatment, will admit patient to the hospital patient is an end-stage renal failure required dialysis she is having significant fluid retention because of her kidney failure. Patient has no dialysis access currently. 10/18/2023 she is feeling slightly better kidney function is much worse continue to have wheezes and tightness still on Rocephin as a single antibiotic for her pneumonia still on steroid for her COPD exacerbation fluid overload and worsening kidney function did not: Different, nephrology had her on IV furosemide and patient believes she is having better urine output. Her creatinine is 2.53 GFR around 13 ultrasound shows left renal atrophy moderate right hydronephrosis she is not hypertensive today blood pressure is holding well will consult urology for the hydronephrosis and resume her home medication including her vitamin D and PhosLo. 10/19/2023: She was found to have hydronephrosis of the right side was seen urology today claimed that hydronephrosis has not been exist since 2019 this is a chronic finding and no change in likely to contribute to the worsening of renal function at this point. No acute surgical intervention required. Nephrology was with a slight decline in kidney function with creatinine is up to 3.71 GFR is down to 13 DC IV Lasix switched to torsemide and waiting for urology to make a conclusion on hydronephrosis repeat lab in the morning and DC calcitriol. Patient having + and symptom of shortness of breath and cough compared to before. Pulmonary najera with exacerbation of her COPD/asthma doing much better on current medication management Solu-Medrol is converted to prednisone 40 mg and he wanted to follow-up in the office upon discharge. Overall clinically patient is feeling much better compared to before has been having less sign and symptom of shortness of breath she still have anasarca and slight edema with improved compared to before. 10/20/2023: Kidney function slightly bit worse with creatinine up to 3.64 GFR around 10 bun 119. Nephrology still making adjustment medication will continue torsemide along with decreased prednisone dose hoping to improve with GFR and B UN/creatinine. I still do not see this happening and I believe patient will probably need to go on hemodialysis despite the difficult part sadly her risk for admission is extremely high currently because no resolve on current issue which probably make patient's creatinine much worse in the next week or so will require more urgent arrangement for dialysis. Patient will remain in the hospital next 24 hours at least to see if this is worse through the weekend starting dialysis would be najera to be done while she is in the hospital. 10/21/2023: Patient clinically feeling slightly better kidney function is much worse patient declining gradually despite the fact that since no access for dialysis will be easy to do and she is not a candidate for CAPD at this point with her multi scar tissue from previous bariatric surgery but believe patient has been declining more will require help soon do not feel comfortable sending her home at this point Her bun is up to 148 creatinine 3.57 she is quite bit uremic sodium down to 125. Nephrology changed her diuretics and prednisone and at this point she is getting ready for dialysis. 10/22/2023: Waiting for her lab this morning with a significant decline in GFR and elevated BUN with all the adjustment made patient still having much worsening renal function will require to initiate dialysis. Her shortness of breath and dyspnea is much better she is on room air does not require any oxygen. She is having slight bladder spasm lately does not have any indwelling catheter still having decreased urine output. Pulmonary najera doing much better with her infection and COPD exacerbation. Fluid overload has improved as well and she is on less diuretic is at this point. The big factor is her kidney function whether she is going require dialysis or not the most likely looks like we were going to start hemodialysis while she is in-house. 10/23/2023: Patient seen nephrology this morning her GFR and creatinine are not back yet but she is stage V chronic kidney disease required dialysis. Nephrology along with vascular make an arrangement for her to have dialysis catheter and probably will be going for hemodialysis today. 10/24/2023: I had a chance to meet the daughter who was on the bedside her name is Yadira is supportive to her mom will need help in the coming few weeks. She is waiting for her procedure today for her dialysis catheter and she will be starting hemodialysis again today. GFR is down to around 10 patient definitely an urgent need for dialysis. Patient has more tired fatigue and having the constitutional symptom of end- stage renal disease was not on hemodialysis at this point. Hopefully all this will improve after dialysis started. Also her fluid overload and congestion will improve significantly. 10/25/2023: She had her permacath yesterday successfully with no complication and she had finished 1 session of hemodialysis yesterday done well. Patient underwent on hemodialysis today will watch for another day hopefully be able to be discharged hopefully in the next 24 hours to arrange for hemodialysis as an outpatient and get her debility whether patient is able to go home or go to rehab less to be determined will ask psychosocial rehabilitation counselor to help us with this in the next day or 2. Looking into the patient clinical picture and physical ability she still debilitated at this point, physical therapy to be started and patient more determined to go home as much as possible but will see how she is scheduled dialysis the second day before making any further plans will continue to do physical therapy and rehab. REVIEW OF SYSTEMS: CONSTITUTIONAL: Well-developed mild respiratory distress EYES: No icterus sclerae, no conjunctivitis. EARS, NOSE, MOUTH, THROAT, and FACE: No sore throat, lymphadenopathy, carotid bruits or deformity. RESPIRATORY: Positive quite bit shortness of breath with cough wheezes. CARDIOVASCULAR: Positive PND orthopnea palpitation. GASTROINTESTINAL: No Abd pain, Nausea or vomiting, no Diarrhea or constipation, No GI Bleed, no distention or masses. GENITOURINARY: Positive urinary tract infection with polyuria and end-stage on chronic kidney failure. INTEGUMENT/BREAST: Generalized arthralgia and myalgia. HEMATOLOGIC/LYMPHATIC: Negative for bleed or purpura. MUSCULOSKELTAL: Generalized myalgia with chronic lower back pain. NEURLOGICAL: No LOC, Sz or syncope, blurred vision dizziness or abnormality.. BEHAVIORAL/PSYCH: Negative. ENDOCRINE: Negative. PHYSICAL EXAMINATION: General Appearance: Alert, cooperative, mild distress. Neck HEENT: Supple, no lymphadenopathy, no thyroid enlargement, no carotid bruits. Lungs: Decreased breath sound bilaterally with fine rhonchi positive inspiratory expiratory wheezes with tightness. Chest Wall: Decreased expansion with deep inspiration no tenderness and no deformity was found on exam, no costochondral pain or discomfort. Heart: Regular rate and rhythm, S1, S2 positive S3 positive systolic murmur. Back: Severe scoliosis and kyphosis with significant CVA tenderness. Abdomen: Soft, non-tender, bowel sounds active all four quadrants, no masses, no organomegaly. Extremities: Generalized arthralgia has significant pain and discomfort both hips. 2+ edema decreased pulse bilaterally. Skin: Skin color, texture, tugor normal, no rashes or lesions. Neurologic: Alert oriented slight confusion, cranial nerves II to XII intact positive generalized weakness with abnormal balance and gait. ASSESSMENT AND PLAN: _Acute respiratory failure: Much better with significantly improved condition compared to before specially with her fluid status, patient also will be going probably on dialysis which will help to reduce the extra fluid retention and probably will help. _End-stage renal disease will start hemodialysis yesterday after permacath was placed. She will be doing dialysis today as well. _Severe fluid overload secondary to end-stage renal failure required dialysis she is on dialysis hopefully will move 2 and half to 3 pounds of fluid every day which will help her edema is much better so far. _Debility: Patient is still on bedrest she need 1 person faculty research assistant today removed, will titrate physical therapy and again prepare to see if patient required to go to rehab while she is doing hemodialysis and rehab. _COPD exacerbation: Resume DuoNeb along with Pulmicort pulmonary consultation be done patient be on a smaller dose of steroid as well continue O2. Switch patient to prednisone orally. _Urinary tract infection and most likely early sepsis: Continue current management for now doing better. _Chronic hydronephrosis of the right side seen urology and decision that this is quite chronic not significant does not require any intervention. _Severe bronchitis with early pneumonia: Much better not having any stridor with the fluid overload cause more problem infection is cleared at this point. _Hypothyroidism: Resume levothyroxine at 150 mcg daily. _Severe GERD: Remain on omeprazole 40 mg a_twice a day. _Hypertension: Has been on midodrine 5 mg twice a day resume medication. _Chronic depression: Has been on Prozac 20 mg daily._ _Chronic anemia: Mostly iron deficiency and continue Procrit along with iron supplement. _Overflow incontinence: Continue to have little bit bladder spasm but remain on Myrbetriq. Prognosis: Fair. Discussion: Continue hemodialysis second day, titrate physical therapy with help and prepare hopefully for some plan for help either at home or to go to rehab. Objective - Vital Signs Vital signs: Vital Signs Temp 97.3 F L 10/25/23 01:36 Pulse 81 10/25/23 01:36 Resp 16 10/25/23 01:36 BP 110/61 10/25/23 01:36 Pulse Ox 92 L 10/25/23 01:36 FiO2 Intake & Output 10/24/23 10/24/23 10/25/23 06:59 18:59 06:59 Intake Total 518 Output Total 600 1050 200 Balance -600 -532 -200 Weight 51.5 kg Intake: Oral 118 Hemodialysis 400 Output: Urine 600 500 200 Hemodialysis 550 Other: Voiding Method Toilet Toilet Toilet - Labs CBC & Chem 7: 10/23/23 07:39 10/24/23 07:28 Labs: Abnormal Lab Results - Last 24 Hours (Table) 10/24/23 10/24/23 10/24/23 Range/Units 07:28 07:28 17:05 Chloride 95 L (96-109) mmol/L Carbon Dioxide 16.9 L (21.6-31.8) mmol/L Anion Gap 26.10 H (4.00-12.00) mmol/L BUN 147.0 A* (9.0-27.0) mg/dL Creatinine 4.3 H (0.6-1.5) mg/dL Est GFR (CKD-EPI) 10 L (>=60) BUN/Creatinine Ratio 34.19 H (12.00-20.00) Ratio POC Glucose (mg/dL) 167 H (70-110) mg/dL Hep Bs Antibody A (Negative) 10/24/23 Range/Units 20:36 Chloride (96-109) mmol/L Carbon Dioxide (21.6-31.8) mmol/L Anion Gap (4.00-12.00) mmol/L BUN (9.0-27.0) mg/dL Creatinine (0.6-1.5) mg/dL Est GFR (CKD-EPI) (>=60) BUN/Creatinine Ratio (12.00-20.00) Ratio POC Glucose (mg/dL) 117 H (70-110) mg/dL Hep Bs Antibody (Negative)
--- NOTE | 2023-10-25 11:52 | P.PN ---
Subjective Progress Note Date: 10/25/23 Principal diagnosis: Chronic kidney disease requiring hemodialysis Patient is seen and examined today as a follow-up. She is sitting up in bed. Yesterday she had a tunneled permacath placed. She states she did receive hemodialysis yesterday evening. She is scheduled to get hemodialysis again now. She states that she did have some discomfort in her neck however it has reso lved today. Chest x-ray was completed yesterday after procedure and no pneumothorax was noted. Objective - Vital Signs Vital signs: Vital Signs Temp 97.6 F 10/25/23 07:11 Pulse 62 10/25/23 09:43 Resp 16 10/25/23 07:11 BP 105/66 10/25/23 07:11 Pulse Ox 91 L 10/25/23 07:11 FiO2 Intake & Output 10/24/23 10/25/23 10/25/23 18:59 06:59 18:59 Intake Total 518 59 Output Total 1050 200 Balance -532 -200 59 Weight 48.9 kg Intake: Oral 118 59 Hemodialysis 400 Output: Urine 500 200 Hemodialysis 550 Other: Voiding Method Toilet Toilet Toilet Diaper # Voids 1 - Exam General appearance: The patient is alert, oriented, appears in no acute distress. HET: Head is normocephalic and atraumatic. Pupils are equal and reactive. Neck: Supple. Tunneled dialysis catheter in place with dressing clean dry and intact. No bleeding, or swelling noted. Heart: Regular. Lungs: Equal expansion, normal respiratory effort. Abdomen: Soft, nondistended. Extremities: Normal skin color and turgor. Lower extremity edema. Neurological: No focal deficits. Strength and sensation are grossly intact. - Labs CBC & Chem 7: 10/23/23 07:39 10/24/23 07:28 Labs: Abnormal Lab Results - Last 24 Hours (Table) 10/24/23 10/24/23 10/24/23 Range/Units 07:28 07:28 17:05 Chloride 95 L (96-109) mmol/L Carbon Dioxide 16.9 L (21.6-31.8) mmol/L Anion Gap 26.10 H (4.00-12.00) mmol/L BUN 147.0 A* (9.0-27.0) mg/dL Creatinine 4.3 H (0.6-1.5) mg/dL Est GFR (CKD-EPI) 10 L (>=60) BUN/Creatinine Ratio 34.19 H (12.00-20.00) Ratio POC Glucose (mg/dL) 167 H (70-110) mg/dL Hep Bs Antibody A (Negative) 10/24/23 10/25/23 Range/Units 20:36 07:15 Chloride (96-109) mmol/L Carbon Dioxide (21.6-31.8) mmol/L Anion Gap (4.00-12.00) mmol/L BUN (9.0-27.0) mg/dL Creatinine (0.6-1.5) mg/dL Est GFR (CKD-EPI) (>=60) BUN/Creatinine Ratio (12.00-20.00) Ratio POC Glucose (mg/dL) 117 H 161 H (70-110) mg/dL Hep Bs Antibody (Negative) Assessment and Plan Assessment: 1. Acute on chronic kidney disease requiring hemodialysis status post tunneled hemodialysis catheter placement 2. Chronic kidney disease, chronic hydronephrosis 3. Fluid overload 4. Anemia of chronic disease Plan: 1. Hemodialysis per recommendations from nephrology 2. Patient to follow-up with vascular surgery as needed Thank you for this consultation, we will sign off at this time. The impression and plan of care has been dictated as directed. I performed a history and examination of this patient, discussed the same with the dictator. I agree with the dictator's note ,documented as a scribe. Any additional findings or plans will be noted.
--- NOTE | 2023-10-25 12:11 | P.PN ---
Subjective Patient is seen in follow-up for acute kidney injury on chronic kidney disease. Started on hemodialysis October 24, 2023. No problems with dialysis yesterday. Vital signs are stable. General: No acute distress. HEENT: Head exam is unremarkable. LUNGS: No audible rhonchi or wheezes. HEART: Rate and Rhythm are regular. ABDOMEN: Nontender. EXTREMITITES: 1+ edema. Objective - Vital Signs Vital signs: Vital Signs Temp 97.6 F 10/25/23 07:11 Pulse 62 10/25/23 09:43 Resp 16 10/25/23 07:11 BP 105/66 10/25/23 07:11 Pulse Ox 91 L 10/25/23 07:11 FiO2 Intake & Output 10/24/23 10/25/23 10/25/23 18:59 06:59 18:59 Intake Total 518 59 Output Total 1050 200 Balance -532 -200 59 Weight 48.9 kg Intake: Oral 118 59 Hemodialysis 400 Output: Urine 500 200 Hemodialysis 550 Other: Voiding Method Toilet Toilet Toilet Diaper # Voids 1 - Labs CBC & Chem 7: 10/23/23 07:39 10/24/23 07:28 Labs: Abnormal Lab Results - Last 24 Hours (Table) 10/24/23 10/24/23 10/24/23 Range/Units 07:28 07:28 17:05 Chloride 95 L (96-109) mmol/L Carbon Dioxide 16.9 L (21.6-31.8) mmol/L Anion Gap 26.10 H (4.00-12.00) mmol/L BUN 147.0 A* (9.0-27.0) mg/dL Creatinine 4.3 H (0.6-1.5) mg/dL Est GFR (CKD-EPI) 10 L (>=60) BUN/Creatinine Ratio 34.19 H (12.00-20.00) Ratio POC Glucose (mg/dL) 167 H (70-110) mg/dL Hep Bs Antibody A (Negative) 10/24/23 10/25/23 Range/Units 20:36 07:15 Chloride (96-109) mmol/L Carbon Dioxide (21.6-31.8) mmol/L Anion Gap (4.00-12.00) mmol/L BUN (9.0-27.0) mg/dL Creatinine (0.6-1.5) mg/dL Est GFR (CKD-EPI) (>=60) BUN/Creatinine Ratio (12.00-20.00) Ratio POC Glucose (mg/dL) 117 H 161 H (70-110) mg/dL Hep Bs Antibody (Negative) Assessment and Plan Plan: Assessment: 1. Acute kidney injury secondary to ATN versus progression of underlying chronic kidney disease stage IV. Patient has been on hemodialysis in the past. Started on hemodialysis October 24, 2023. 2. Chronic lower extremity edema/lymphedema. 3. Chronic kidney disease mineral bone disease. Calcium level noted to be elevated this admission -10.0 yesterday. Calcitriol and PhosLo have been discontinued. On Renvela. 4. Chronic hypotension maintained on midodrine as needed. 5. Chronic right-sided hydronephrosis with left renal atrophy. No interventions planned by urology. 6. Metabolic acidosis secondary to acute kidney injury/chronic kidney disease. On oral bicarb. Expect improvement postdialysis. 7. Anemia of chronic kidney disease. Iron replete. On Aranesp. Plan: Second treatment of dialysis today. She will be maintained on Monday schedule outpatient. Follow-up phosphorus level.
[2023-10-25 12:17] LABS: Glucose,Whole Blood 121 mg/dL (70-110)
[2023-10-25 15:04] LABS: BUN/Creat Ratio 29.38 Ratio (12.00-20.00); Blood Urea Nitrogen 76.4 mg/dL (9.0-27.0); Calcium 8.2 mg/dL (8.7-10.3); Carbon Dioxide 22.9 mmol/L (21.6-31.8); Chloride 101 mmol/L (96-109); Glucose 82 mg/dL (70-110); Magnesium 2.2 mg/dL (1.5-2.4); Phosphorus 6.2 mg/dL (2.4-5.1); Potassium 4.7 mmol/L (3.5-5.5); Sodium 139 mmol/L (135-145)
[2023-10-25 15:33] VITALS: BP 117/64; TEMP 98
[2023-10-25 17:14] VITALS: PULSE 62
--- NOTE | 2023-10-25 23:07 | P.DS ---
Providers Date of admission: 10/17/23 12:18 Attending physician: Bienvenido Hogue Consults: 10/17/23 08:05 Consult Physician Routine Consulting Provider: Abbey Wheeler Consult Reason/Comments: HD Do you want consulting provider notified?: Yes 10/17/23 08:07 Consult Physician Routine Consulting Provider: Alex Gomes Consult Reason/Comments: COPD Excacerbation Do you want consulting provider notified?: Yes 10/18/23 11:19 Consult Physician Routine Consulting Provider: Jared Allen Consult Reason/Comments: HYDRONEPHROSIS Do you want consulting provider notified?: Yes 10/23/23 08:46 Consult Physician Routine Consulting Provider: Alejandro Montanez Consult Reason/Comments: permacath placement Do you want consulting provider notified?: Yes Primary care physician: Bienvenido Hogue [facility] Course: HISTORY OF PRESENT ILLNESS: 78-year-old office patient with active medical history of end-stage renal disease was on hemodialysis earlier has been off dialysis for the last 2 years, been evaluated for renal transplant rejected, history of chronic anemia, diastolic congestive heart failure, COPD/asthma, hypertension, hyperlipidemia, hypothyroidism, chronic GERD, chronic neuropathy, severe balance and gait with multiple fall. Who also had significant weight loss last year who apparently was at the walk-in clinic yesterday for worsening shortness of breath dyspnea not been able to lay down flat in bed was sent to the emergency department because of significant cough tightness wheezes with significant respiratory distress was seen and evaluated in the emergency departmentFound to be in quite a bit of fluid overload with worsening peripheral edema and central venous congestion also found to have severe bronchial spasm tightness and wheezing. Was giving few updraft treatment which had helped UA was extremely positive for infection white blood cell was normal kidney function is much worse review of chest x-ray shows central venous congestion most likely failure with worsening kidney function. Recurrent symptoms patient was kept on Rocephin at this point, updraft treatment, will admit patient to the hospital patient is an end-stage renal failure required dialysis she is having significant fluid retention because of her kidney failure. Patient has no dialysis access currently. 10/18/2023 she is feeling slightly better kidney function is much worse continue to have wheezes and tightness still on Rocephin as a single antibiotic for her pneumonia still on steroid for her COPD exacerbation fluid overload and worsening kidney function did not: Different, nephrology had her on IV furosemide and patient believes she is having better urine output. Her creatinine is 2.53 GFR around 13 ultrasound shows left renal atrophy moderate right hydronephrosis she is not hypertensive today blood pressure is holding well will consult urology for the hydronephrosis and resume her home medication including her vitamin D and PhosLo. 10/19/2023: She was found to have hydronephrosis of the right side was seen urology today claimed that hydronephrosis has not been exist since 2019 this is a chronic finding and no change in likely to contribute to the worsening of renal function at this point. No acute surgical intervention required. Nephrology was with a slight decline in kidney function with creatinine is up to 3.71 GFR is down to 13 DC IV Lasix switched to torsemide and waiting for urology to make a conclusion on hydronephrosis repeat lab in the morning and DC calcitriol. Patient having + and symptom of shortness of breath and cough compared to before. Pulmonary najera with exacerbation of her COPD/asthma doing much better on current medication management Solu-Medrol is converted to prednisone 40 mg and he wanted to follow-up in the office upon discharge. Overall clinically patient is feeling much better compared to before has been having less sign and symptom of shortness of breath she still have anasarca and slight edema with improved compared to before. 10/20/2023: Kidney function slightly bit worse with creatinine up to 3.64 GFR around 10 bun 119. Nephrology still making adjustment medication will continue torsemide along with decreased prednisone dose hoping to improve with GFR and BUN/creatinine. I still do not see this happening and I believe patient will probably need to go on hemodialysis despite the difficult part sadly her risk for admission is extremely high currently because no resolve on current issue which probably make patient's creatinine much worse in the next week or so will require more urgent arrangement for dialysis. Patient will remain in the hospital next 24 hours at least to see if this is worse through the weekend starting dialysis would be najera to be done while she is in the hospital. 10/21/2023: Patient clinically feeling slightly better kidney function is much worse patient declining gradually despite the fact that since no access for dialysis will be easy to do and she is not a candidate for CAPD at this point with her multi scar tissue from previous bariatric surgery but believe patient has been declining more will require help soon do not feel comfortable sending her home at this point Her bun is up to 148 creatinine 3.57 she is quite bit uremic sodium down to 125. Nephrology changed her diuretics and prednisone and at this point she is getting ready for dialysis. 10/22/2023: Waiting for her lab this morning with a significant decline in GFR and elevated BUN with all the adjustment made patient still having much worsening renal function will require to initiate dialysis. Her shortness of breath and dyspnea is much better she is on room air does not require any oxygen. She is having slight bladder spasm lately does not have any indwelling catheter still having decreased urine output. Pulmonary najera doing much better with her infection and COPD exacerbation. Fluid overload has improved as well and she is on less diuretic is at this point. The big factor is her kidney function whether she is going require dialysis or not the most likely looks like we were going to start hemodialysis while she is in-house. 10/23/2023: Patient seen nephrology this morning her GFR and creatinine are not back yet but she is stage V chronic kidney disease required dialysis. Nephrology along with vascular make an arrangement for her to have dialysis catheter and probably will be going for hemodialysis today. 10/24/2023: I had a chance to meet the daughter who was on the bedside her name is Yadira is supportive to her mom will need help in the coming few weeks. She is waiting for her procedure today for her dialysis catheter and she will be starting hemodialysis again today. GFR is down to around 10 patient definitely an urgent need for dialysis. Patient has more tired fatigue and having the constitutional symptom of end- stage renal disease was not on hemodialysis at this point. Hopefully all this will improve after dialysis started. Also her fluid overload and congestion will improve significantly. 10/25/2023: She had her permacath yesterday successfully with no complication and she had finished 1 session of hemodialysis yesterday done well. Patient underwent on hemodialysis today will watch for another day hopefully be able to be discharged hopefully in the next 24 hours to arrange for hemodialysis as an outpatient and get her debility whether patient is able to go home or go to rehab less to be determined will ask social staff worker to help us with this in the next day or 2. Looking into the patient clinical picture and physical ability she still debilitated at this point, physical therapy to be started and patient more determined to go home as much as possible but will see how she is scheduled dialysis the second day before making any further plans will continue to do physical therapy and rehab. REVIEW OF SYSTEMS: CONSTITUTIONAL: Well-developed mild respiratory distress EYES: No icterus sclerae, no conjunctivitis. EARS, NOSE, MOUTH, THROAT, and FACE: No sore throat, lymphadenopathy, carotid bruits or deformity. RESPIRATORY: Positive quite bit shortness of breath with cough wheezes. CARDIOVASCULAR: Positive PND orthopnea palpitation. GASTROINTESTINAL: No Abd pain, Nausea or vomiting, no Diarrhea or constipation, No GI Bleed, no distention or masses. GENITOURINARY: Positive urinary tract infection with polyuria and end-stage on chronic kidney failure. INTEGUMENT/BREAST: Generalized arthralgia and myalgia. HEMATOLOGIC/LYMPHATIC: Negative for bleed or purpura. MUSCULOSKELTAL: Generalized myalgia with chronic lower back pain. NEURLOGICAL: No LOC, Sz or syncope, blurred vision dizziness or abnormality.. BEHAVIORAL/PSYCH: Negative. ENDOCRINE: Negative. PHYSICAL EXAMINATION: General Appearance: Alert, cooperative, mild distress. Neck HEENT: Supple, no lymphadenopathy, no thyroid enlargement, no carotid bruits. Lungs: Decreased breath sound bilaterally with fine rhonchi positive inspiratory expiratory wheezes with tightness. Chest Wall: Decreased expansion with deep inspiration no tenderness and no deformity was found on exam, no costochondral pain or discomfort. Heart: Regular rate and rhythm, S1, S2 positive S3 positive systolic murmur. Back: Severe scoliosis and kyphosis with significant CVA tenderness. Abdomen: Soft, non-tender, bowel sounds active all four quadrants, no masses, no organomegaly. Extremities: Generalized arthralgia has significant pain and discomfort both hips. 2+ edema decreased pulse bilaterally. Skin: Skin color, texture, tugor normal, no rashes or lesions. Neurologic: Alert oriented slight confusion, cranial nerves II to XII intact positive generalized weakness with abnormal balance and gait. ASSESSMENT AND PLAN: _Acute respiratory failure: Much better with significantly improved condition compared to before specially with her fluid status, patient also will be going probably on dialysis which will help to reduce the extra fluid retention and probably will help. _End-stage renal disease will start hemodialysis yesterday after permacath was placed. She will be doing dialysis today as well. _Severe fluid overload secondary to end-stage renal failure required dialysis she is on dialysis hopefully will move 2 and half to 3 pounds of fluid every day which will help her edema is much better so far. _Debility: Patient is still on bedrest she need 1 person library assistant today removed, will titrate physical therapy and again prepare to see if patient required to go to rehab while she is doing hemodialysis and rehab. _COPD exacerbation: Resume DuoNeb along with Pulmicort pulmonary consultation be done patient be on a smaller dose of steroid as well continue O2. Switch patient to prednisone orally. _Urinary tract infection and most likely early sepsis: Continue current management for now doing better. _Chronic hydronephrosis of the right side seen urology and decision that this is quite chronic not significant does not require any intervention. _Severe bronchitis with early pneumonia: Much better not having any stridor with the fluid overload cause more problem infection is cleared at this point. _Hypothyroidism: Resume levothyroxine at 150 mcg daily. _Severe GERD: Remain on omeprazole 40 mg a_twice a day. _Hypertension: Has been on midodrine 5 mg twice a day resume medication. _Chronic depression: Has been on Prozac 20 mg daily._ _Chronic anemia: Mostly iron deficiency and continue Procrit along with iron supplement. _Overflow incontinence: Continue to have little bit bladder spasm but remain on Myrbetriq. Prognosis: Fair. Discussion: Continue hemodialysis second day, titrate physical therapy with help and prepare hopefully for some plan for help either at home or to go to rehab. Hospital course: She was hospitalized between 10/16 till 10/25/2023 initially presented to the emergency department because of significant cough tightness wheezes with significant respiratory distress found to be in quite fluid overload and worsening peripheral edema with central venous congestion and severe bronchial spasm and tightness and wheezes after few updraft treatment patient was loosely breath, chest x-ray continue to show significant central congestion similar to congestive heart failure, mild BNP elevation. Also found to be in acute kidney failure with chronic kidney injury with much worsening kidney function with GFR is around 12. Creatinine is up to 2.53. Running her UA being positive for started on Rocephin initially for UTI along with severe bronchitis along with COPD exacerbation and congestive heart failure exacerbation also found to have mild hydronephrosis. Patient ended up seen pulmonary, nephrology, urology and vascular surgery. Urology had review her hydronephrosis and decided has been chronic since 2019 no need for any further diagnostic method or procedure. Her procalcitonin was elevated and patient was started on Solu-Medrol, antibiotics and updraft treatments seen pulmonary and treated. As the next following day patient ended up having much worsening kidney function and worsening dyspnea. Nephrology took her off all nephrotoxic agent and Seen declining kidney function in the office today on 520 decision finally was made she is in stage V kidney failure she is not requiring hemodialysis. Permacath was placed on 10/24/2023 and initiate dialysis shortly after. Had felt much better after first dialysis. Continue PT OT second dialysis was more successful and patient felt much stronger. Was seen and evaluated on 10/25/2023 by pulmonary, nephrology and our service and decided she is very stable to be discharged she did not get qualified for SNF she is able to move and ambulate and arrangement for outpatient dialysis was made patient be discharged on 10/26/2023. Time spent on patient discharge was over 40 minutes. Patient Condition at Discharge: Stable Plan - Discharge Summary New Discharge Prescriptions: New Ipratropium-Albuterol Nebulize [Duoneb 0.5 mg-3 mg/3 ml Soln] 3 ml INHALATION RT-QID #120 each predniSONE 10 mg PO DAILY #40 tab Budesonide-Formot 160-4.5 Mcg [Symbicort 160-4.5 Mcg Inhaler] 2 puff INHALATION RT-BID #60 each Darbepoetin Mike [Aranesp] 40 mcg SQ Q7D #0 each Continue Montelukast [Singulair] 10 mg PO HS FLUoxetine HCL [PROzac] 20 mg PO BID Omeprazole 40 mg PO AC-BID Sodium Bicarbonate Tab 1,950 mg PO TID traMADol HCL [Ultram] 50 mg PO Q8H PRN PRN Reason: Pain Magnesium Chloride [Mag64] 64 mg PO DAILY Loratadine 10 mg PO DAILY Methenamine Hippurate 1 gm PO BID Mirabegron [Myrbetriq] 25 mg PO DAILY Benzonatate [Tessalon Perle] 200 mg PO TID PRN PRN Reason: Cough Levothyroxine Sodium [Synthroid] 150 mcg PO DAILY Prolia (Unknown Dose) 60 mg IM Q180D Calcium Acetate [PhosLo] 2,004 mg PO AC-TID Midodrine [ProAmatine] 5 mg PO DAILY PRN PRN Reason: Blood Pressure - Low metroNIDAZOLE [Flagyl] 250 mg PO DAILY Ergocalciferol [Vitamin D2 (1250 Mcg = 52808 Iu)] 1,250 mcg PO DIRECTED Gabapentin [Neurontin] 300 mg PO BID Bumetanide [BUMEX] 1 mg PO DAILY calcitrioL 1.5 mcg PO BID Potassium Chloride [Klor-Con 8] 8 meq PO DAILY Albuterol Inhaler [Ventolin Hfa Inhaler] 2 puff INHALATION RT-Q6H PRN PRN Reason: Shortness Of Breath Docusate [Colace] 200 mg PO BID Turmeric Root Extract [Turmeric] 500 mg PO DAILY Calcium Acetate [PhosLo] 1,334 mg PO BID PRN PRN Reason: snacks Ascorbic Acid [Vitamin C] 1,000 mg PO DAILY Sevelamer [Renvela] 800 mg PO AC-TID Discontinued Albuterol Nebulized [Ventolin Nebulized] 2.5 mg INHALATION RT-Q6H PRN PRN Reason: Shortness Of Breath Discharge Medication List FLUoxetine HCL [PROzac] 20 mg PO BID 08/23/18 [History] Montelukast [Singulair] 10 mg PO HS 08/23/18 [History] Omeprazole 40 mg PO AC-BID 11/19/18 [History] Sodium Bicarbonate Tab 1,950 mg PO TID 07/22/19 [History] traMADol HCL [Ultram] 50 mg PO Q8H PRN 07/22/19 [History] Loratadine 10 mg PO DAILY 12/06/19 [History] Magnesium Chloride [Mag64] 64 mg PO DAILY 12/06/19 [History] Methenamine Hippurate 1 gm PO BID 01/25/21 [History] Mirabegron [Myrbetriq] 25 mg PO DAILY 01/25/21 [History] Albuterol Inhaler [Ventolin Hfa Inhaler] 2 puff INHALATION RT-Q6H PRN 02/07/23 [History] Benzonatate [Tessalon Perle] 200 mg PO TID PRN 02/07/23 [History] Docusate [Colace] 200 mg PO BID 02/07/23 [History] Levothyroxine Sodium [Synthroid] 150 mcg PO DAILY 02/07/23 [History] Potassium Chloride [Klor-Con 8] 8 meq PO DAILY 02/07/23 [History] calcitrioL 1.5 mcg PO BID 02/07/23 [History] Ascorbic Acid [Vitamin C] 1,000 mg PO DAILY 10/17/23 [History] Bumetanide [BUMEX] 1 mg PO DAILY 10/17/23 [History] Calcium Acetate [PhosLo] 1,334 mg PO BID PRN 10/17/23 [History] Calcium Acetate [PhosLo] 2,004 mg PO AC-TID 10/17/23 [History] Ergocalciferol [Vitamin D2 (1250 Mcg = 14888 Iu)] 1,250 mcg PO DIRECTED 10/17/23 [History] Gabapentin [Neurontin] 300 mg PO BID 10/17/23 [History] Midodrine [ProAmatine] 5 mg PO DAILY PRN 10/17/23 [History] Prolia (Unknown Dose) 60 mg IM Q180D 10/17/23 [History] Sevelamer [Renvela] 800 mg PO AC-TID 10/17/23 [History] Turmeric Root Extract [Turmeric] 500 mg PO DAILY 10/17/23 [History] metroNIDAZOLE [Flagyl] 250 mg PO DAILY 10/17/23 [History] Budesonide-Formot 160-4.5 Mcg [Symbicort 160-4.5 Mcg Inhaler] 2 puff INHALATION RT-BID #60 each 10/25/23 [Rx] Darbepoetin Mike [Aranesp] 40 mcg SQ Q7D #0 each 10/25/23 [Rx] Ipratropium-Albuterol Nebulize [Duoneb 0.5 mg-3 mg/3 ml Soln] 3 ml INHALATION RT-QID #120 each 10/25/23 [Rx] predniSONE 10 mg PO DAILY #40 tab 10/25/23 [Rx] Follow up Appointment(s)/Referral(s): Jacobo Alfredo MD [STAFF PHYSICIAN] - 1 Week [facility] [NON-STAFF] - 1 Week Bienvenido Hogue MD [Primary Care Provider] - 1-2 days Patient Instructions/Handouts: Prednisone (By mouth), Ipratropium/Albuterol (By breathing), Budesonide/Formoterol (By breathing), Dialysis Diet (DC), Dyspnea (DC), Perma-cath Placement (DC), Hemodialysis (DC), Urinary Tract Infection in Older Adults (DC) Activity/Diet/Wound Care/Special Instructions: Please remember to send patient's medications home with patient pt chair time for [facility] is TTS, chair time 10:50am. Discharge Disposition: HOME WITH HOME HEALTH SERVICES
== END 2023-10-25 17:24 | disposition home health service (06) | DRG 871 ==
LOC: EC 17:49 → 5NMEDONC 10-17 05:42 → 1SOBS 10-17 09:58 → OBSVTOIN 10-17 12:18 → 5NMEDONC 10-19 16:54
PROVIDERS: ADMIT Internal Medicine Geriatric Medicine; ATTEND Internal Medicine Geriatric Medicine
PROC: 5A1D70Z Performance of Urinary Filtration, Intermittent, Less than 6 Hours Per Day (ICD-10-PCS; 2023-10-23)
PROC: B548ZZA Ultrasonography of Superior Vena Cava, Guidance (ICD-10-PCS; 2023-10-24)
PROC: 0JH63XZ Insertion of Tunneled Vascular Access Device into Chest Subcutaneous Tissue and Fascia, Percutaneous Approach (ICD-10-PCS; principal; 2023-10-24 10:30)
PROC: 02HV33Z Insertion of Infusion Device into Superior Vena Cava, Percutaneous Approach (ICD-10-PCS; 2023-10-24 10:30)
PROC: B5181ZA Fluoroscopy of Superior Vena Cava using Low Osmolar Contrast, Guidance (ICD-10-PCS; 2023-10-24 10:30)
DX: A41.9 Sepsis, unspecified organism (principal); J18.9 Pneumonia, unspecified organism; N17.0 Acute kidney failure with tubular necrosis; J96.01 Acute respiratory failure with hypoxia; N18.6 End stage renal disease; J44.1 Chronic obstructive pulmonary disease with (acute) exacerbation; J44.0 Chronic obstructive pulmonary disease with (acute) lower respiratory infection; J45.901 Unspecified asthma with (acute) exacerbation; N13.6 Pyonephrosis; N17.9 Acute kidney failure, unspecified; I50.32 Chronic diastolic (congestive) heart failure; I13.2 Hypertensive heart and chronic kidney disease with heart failure and with stage 5 chronic kidney disease, or end stage renal disease; E87.20 Acidosis, unspecified; E87.1 Hypo-osmolality and hyponatremia; M89.8X9 Other specified disorders of bone, unspecified site; K21.9 Gastro-esophageal reflux disease without esophagitis; I89.0 Lymphedema, not elsewhere classified; I95.89 Other hypotension; F32.A Depression, unspecified; E78.5 Hyperlipidemia, unspecified; E03.9 Hypothyroidism, unspecified; D63.1 Anemia in chronic kidney disease; Z79.890 Hormone replacement therapy; M81.0 Age-related osteoporosis without current pathological fracture; N39.490 Overflow incontinence; G62.9 Polyneuropathy, unspecified; E55.9 Vitamin D deficiency, unspecified; M35.3 Polymyalgia rheumatica; Z88.5 Allergy status to narcotic agent; Z88.2 Allergy status to sulfonamides; Z20.822 Contact with and (suspected) exposure to COVID-19; Z98.84 Bariatric surgery status; R29.6 Repeated falls; Z79.899 Other long term (current) drug therapy; Z79.52 Long term (current) use of systemic steroids; Z99.2 Dependence on renal dialysis; Z85.828 Personal history of other malignant neoplasm of skin; Z87.442 Personal history of urinary calculi; Z91.048 Other nonmedicinal substance allergy status; F17.210 Nicotine dependence, cigarettes, uncomplicated; J98.4 Other disorders of lung; N32.89 Other specified disorders of bladder; Z88.1 Allergy status to other antibiotic agents
CPT/HCPCS: 36415; 36558; 71045; 71046; 76770; 76937; 77001; 80048; 80053; 81001; 82728; 83540; 83550; 83735; 83880; 84100; 84145; 85025; 85027; 86704; 86706; 87040; 87340; 87636; 90935; 93306; 94640; 96374; 96375; 99285

== ENCOUNTER → 2023-11-20 | Outpatient (CLI) | payer MEDICARE ==
[2023-11-20] MEDS: DENOSUMAB 60 MG/ML 1 ML SYRINGE SQ NR (14:05)
[2023-11-20 14:11] VITALS: BP 149/88; PULSE 79; RESP 16; TEMP 98.1
== END ==
LOC: PROCWHC3 13:54
PROVIDERS: ATTEND Internal Medicine
DX: M81.0 Age-related osteoporosis without current pathological fracture (principal)
CPT/HCPCS: 96372; J0897

== ENCOUNTER 2023-11-22 17:02 | Observation (INO) | payer MEDICARE ==
[2023-11-22] MEDS ORDERED: NALOXONE 0.4 MG/ML 1 ML VIAL IV PRN (19:09)
[2023-11-22] MEDS ORDERED: ONDANSETRON 4 MG/2 ML VIAL IVP PRN (19:44)
[2023-11-22] MEDS ORDERED: MORPHINE SULFATE 4 MG/ML SYRINGE IV PRN (19:44)
--- NOTE | 2023-11-22 19:57 | ED ---
Recheck HPI - General Chief Complaint: Recheck/Abnormal Lab/Rx Stated Complaint: issues with dialysis Time Seen by Provider: 11/22/23 18:55 Source: patient, RN notes reviewed, old records reviewed Mode of arrival: ambulatory Limitations: no limitations - History of Present Illness Initial Comments: This is a 78-year-old female to the ER for evaluation patient [facility] for evaluation regards to need for dialysis with malfunctioning dialysis Manny rouse MD Complaint: abnormal lab (Renal failure with need for dialysis) Returns Today for: Called Because of Abnormal Lab/Test, persistent/worsening p ain related to initial visit Symptoms Since Prior Visit: no new symptoms Context: called for abnormal lab result Associated Symptoms: none Treatments Prior to Arrival: other - Related Data Home Medications Medication Instructions Recorded Confirmed FLUoxetine HCL [PROzac] 20 mg PO BID 08/23/18 11/22/23 Montelukast [Singulair] 10 mg PO HS 08/23/18 11/22/23 Omeprazole 40 mg PO AC-BID 11/19/18 11/22/23 Sodium Bicarbonate Tab 1,950 mg PO TID 07/22/19 11/22/23 traMADol HCL [Ultram] 50 mg PO Q8H PRN 07/22/19 11/22/23 Loratadine 10 mg PO DAILY 12/06/19 11/22/23 Magnesium Chloride [Mag64] 64 mg PO DAILY 12/06/19 11/22/23 Methenamine Hippurate 1 gm PO BID 01/25/21 11/22/23 Mirabegron [Myrbetriq] 25 mg PO DAILY 01/25/21 11/22/23 Albuterol Inhaler [Ventolin Hfa 2 puff INHALATION RT-Q6H PRN 02/07/23 11/22/23 Inhaler] Benzonatate [Tessalon Perle] 200 mg PO TID PRN 02/07/23 11/22/23 Docusate [Colace] 200 mg PO BID 02/07/23 11/22/23 Levothyroxine Sodium [Synthroid] 150 mcg PO DAILY 02/07/23 11/22/23 Potassium Chloride [Klor-Con 8] 8 meq PO DAILY 02/07/23 11/22/23 calcitrioL 1.5 mcg PO BID 02/07/23 11/22/23 Ascorbic Acid [Vitamin C] 1,000 mg PO DAILY 10/17/23 11/22/23 Bumetanide [BUMEX] 1 mg PO DAILY 10/17/23 11/22/23 Calcium Acetate [PhosLo] 1,334 mg PO BID PRN 10/17/23 11/22/23 Calcium Acetate [PhosLo] 2,004 mg PO AC-TID 10/17/23 11/22/23 Ergocalciferol [Vitamin D2 (1250 1,250 mcg PO MOWEFRSA 10/17/23 11/22/23 Mcg = 75911 Iu)] Gabapentin [Neurontin] 300 mg PO BID 10/17/23 11/22/23 Sevelamer [Renvela] 800 mg PO AC-TID 10/17/23 11/22/23 Turmeric Root Extract [Turmeric] 500 mg PO DAILY 10/17/23 11/22/23 metroNIDAZOLE [Flagyl] 250 mg PO DAILY 10/17/23 11/22/23 Cephalexin [Keflex] 500 mg PO BID 11/22/23 11/22/23 Denosumab [Prolia] 60 mg SQ Q180D 11/22/23 11/22/23 Midodrine HCl [ProAmatine] 10 mg PO TID PRN 11/22/23 11/22/23 Previous Rx's Medication Instructions Recorded Budesonide-Formot 160-4.5 Mcg 2 puff INHALATION RT-BID #60 each 10/25/23 [Symbicort 160-4.5 Mcg Inhaler] Darbepoetin Mike [Aranesp] 40 mcg SQ Q7D #0 each 10/25/23 Ipratropium-Albuterol Nebulize 3 ml INHALATION RT-QID #120 each 10/25/23 [Duoneb 0.5 mg-3 mg/3 ml Soln] Allergies Allergy/AdvReac Type Severity Reaction Status Date / Time adhesive tape Allergy Rash/Hives Verified 11/22/23 20:22 Sulfa (Sulfonamide Allergy Itching Verified 11/22/23 20:22 Antibiotics) codeine AdvReac Nausea Verified 11/22/23 20:22 epoetin beta [From Mircera] AdvReac Unknown Verified 11/22/23 20:22 tetracycline AdvReac Nausea & Verified 11/22/23 20:22 Vomiting Review of Systems ROS Statement: Those systems with pertinent positive or pertinent negative responses have been documented in the HPI. ROS Other: All systems not noted in ROS Statement are negative. Past Medical History Past Medical History: Asthma, Cancer, COPD, Osteoarthritis (OA), Renal Disease, Thyroid Disorder Additional Past Medical History / Comment(s): kidney stones and UTI,steroid injection October 2018 hx lymphedema, hx pulmonary fibrosis, hx graves,hx rt foot torn ligaments,hx kidney stones, hx osteoporosis,hypotension, wears oxygen if feels like she needs it; vitamin D deficiency, hypocalcemia,. SKIN CANCER REMOVED FROM BRIDGE OF NOSE., PMR - polymyalgia rhematalia History of Any Multi-Drug Resistant Organisms: CRE Date of last positivie culture/infection: 10/16/18 MDRO-CRE PER [facility] NOT [facility] MDRO Source:: Urine Past Surgical History: Bariatric Surgery Additional Past Surgical History / Comment(s): hx bariatric surgery-Kye En Y,lung biopsy,radioactive iodine-tx thyroid,rectal and bladder suspensions,vaginal surgery as a child,partha carpel tunnel,rt knee meniscus repair,D&C x3, left arm fistula 02/08/19 (not working), left broken wrist, broken right wrist Past Anesthesia/Blood Transfusion Reactions: Previous Problems w/ Anesthesia, Postoperative Nausea & Vomiting (PONV) Additional Past Anesthesia/Blood Transfusion Reaction / Comment(s): decrease bp with anesthesia,no problems with prior blood transfusion Past Psychological History: No Psychological Hx Reported Smoking Status: Never smoker - Past Family History Father Family Medical History: Pulmonary Embolus Additional Family Medical History / Comment(s): . Mother Family Medical History: Cancer Additional Family Medical History / Comment(s): . Sister(s) Family Medical History: Cancer Additional Family Medical History / Comment(s): . Daughter(s) Additional Family Medical History / Comment(s): lymphedema in legs Brother(s) Family Medical History: Cancer Additional Family Medical History / Comment(s): skin cancer General Exam Limitations: no limitations General appearance: alert, in no apparent distress Head exam: Present: atraumatic, normocephalic, normal inspection Eye exam: Present: normal appearance, PERRL, EOMI. Absent: scleral icterus, conjunctival injection, periorbital swelling ENT exam: Present: normal exam, mucous membranes moist Neck exam: Present: normal inspection. Absent: tenderness, meningismus, lymphadenopathy Respiratory exam: Present: normal lung sounds bilaterally. Absent: respiratory distress, wheezes, rales, rhonchi, stridor Cardiovascular Exam: Present: regular rate, normal rhythm, normal heart sounds. Absent: systolic murmur, diastolic murmur, rubs, gallop, clicks GI/Abdominal exam: Present: soft, normal bowel sounds. Absent: distended, tenderness, guarding, rebound, rigid Extremities exam: Present: normal inspection, full ROM, normal capillary refill. Absent: tenderness, pedal edema, joint swelling, calf tenderness Back exam: Present: normal inspection Neurological exam: Present: alert, oriented X3, CN II-XII intact Psychiatric exam: Present: normal affect, normal mood Skin exam: Present: warm, dry, intact, normal color. Absent: rash Course Vital Signs 11/22/23 11/22/23 11/22/23 17:28 20:50 23:01 Temperature 97.9 F Pulse Rate 78 66 71 Respiratory 18 16 16 Rate Blood Pressure 123/79 142/85 127/87 O2 Sat by Pulse 96 97 96 Oximetry 11/23/23 11/23/23 11/23/23 00:25 02:32 06:11 Temperature Pulse Rate 67 69 74 Respiratory 16 16 16 Rate Blood Pressure 146/77 139/82 113/70 O2 Sat by Pulse 96 95 96 Oximetry - Reevaluation(s) Reevaluation #1: 11/22/23 19:56 Medical records reviewed Reevaluation #2: 11/22/23 19:56 Patient informed of results and questions answered Reevaluation #3: 11/22/23 19:56 Patient has no change in symptoms here in the ER Reevaluation #4: Was pt. sent in by a medical professional or institution (, PA, MAMMAL CONTROL AGENT, urgent care, hospital, or [place] health care facility...) When possible be specific @ -no Did you speak to anyone other than the patient for history (EMS, parent, family, police, friend...)? What history was obtained from this source @ -no Did you review nursing and triage notes (agree or disagree)? Why? @ -agree Are old charts reviewed (outside hosp., previous admission, EMS record, old EKG, old radiological studies, urgent care reports/EKG's, [place] health care facility records)? Report findings @ -yes Differential Diagnosis (chest pain, altered mental status, abdominal pain women, abdominal pain men, vaginal bleeding, weakness, fever, dyspnea, syncope, headache, dizziness, GI bleed, back pain, seizure, CVA, palpatations, mental health, musculoskeletal)? @ -prior EKG interpreted by me (3pts min.). @ -yes X-rays interpreted by me (1pt min.). @ -yes negative for acute disease CT interpreted by me (1pt min.). @ -no U/S interpreted by me (1pt. min.). @ -no What testing was considered but not performed or refused? (CT, X-rays, U/S, labs)? Why? @ -none What meds were considered but not given or refused? Why? @ -none Did you discuss the management of the patient with other professionals (professionals i.e. , PA, MAMMAL CONTROL AGENT, lab, RT, psych nurse, rn social work, rubber insulator, teacher, infantry weapons officer, comp field case manager)? Give summary @ -no Was smoking cessation discussed for >3mins.? @ -no Was critical care preformed (if so, how long)? @ -no Were there social determinants of health that impacted care today? How? (Homelessness, low income, unemployed, alcoholism, drug addiction, transportation, low edu. Level, literacy, decrease access to med. care, correction, rehab)? @ -none Was there de-escalation of care discussed even if they declined (Discuss DNR or withdrawal of care, Hospice)? DNR status @ -no What co-morbidities impacted this encounter? (DM, HTN, Smoking, COPD, CAD, Ca ncer, CVA, ARF, Chemo, Hep., AIDS, mental health diagnosis, sleep apnea, morbid obesity)? @ -none Was patient admitted / discharged? Hospital course, mention meds given and route, prescriptions, significant lab abnormalities, going to OR and other pertinent info. @ - 78 female to the ER for evaluation today. Patient presents today for evaluation regards to need for dialysis catheter. Patient also needs dialysis and will be admitted for further evaluation and management Admit Undiagnosed new problem with uncertain prognosis? @ -no Drug Therapy requiring intensive monitoring for toxicity (Heparin, Nitro, Insulin, Cardizem)? @ -no Were any procedures done? @ -no Diagnosis/symptom? @ -Need for dialysis, catheter malfunction Acute, or Chronic, or Acute on Chronic? @ -Acute Uncomplicated (without systemic symptoms) or Complicated (systemic symptoms)? @ -Complicated Side effects of treatment? @ -no Exacerbation, Progression, or Severe Exacerbation? @ -exacerbation Poses a threat to life, yes extremes of age Medical Decision Making - Medical Decision Making 78 female to the ER for evaluation today. Patient presents today for evaluation regards to need for dialysis catheter. Patient also needs dialysis and will be admitted for further evaluation and management - Lab Data Result diagrams: 11/23/23 06:17 11/23/23 06:17 - EKG Data -: EKG Interpreted by Me (EKG is A-fib 71 QRS 71 QTc 388) - Radiology Data Radiology results: report reviewed (Chest x-ray is negative for acute disease), image reviewed Disposition Clinical Impression: Dyspnea, PRIYANKA (acute kidney injury), General weakness, ESRD (end stage renal disease) on dialysis, Renal failure Disposition: ADMITTED IP TO THIS HOSP Condition: Serious Is patient prescribed a controlled substance at d/c from ED?: No Time of Disposition: 20:00
[2023-11-22 20:49] LABS: Basophils # (A) 0.1 k/uL (0-0.2); Basophils % (A) 1 %; Eosinophils # (A) 0.2 k/uL (0-0.7); Eosinophils % (A) 2 %; HCT 33.4 % (34.0-46.0); HGB 10.1 gm/dL (11.4-16.0); Hypochromasia Slight; Lymphocytes # (A) 1.6 k/uL (1.0-4.8); Lymphocytes % (A) 19 %; MCH 32.8 pg (25.0-35.0); MCHC 30.2 g/dL (31.0-37.0); Macrocytosis Marked; Mean Platelet Volume 8.1; Monocytes # (A) 0.7 k/uL (0-1.0); Monocytes % (A) 8 %; Neutrophils # (A) 5.6 k/uL (1.3-7.7); Neutrophils % (A) 69 %; Platelet Count 155 k/uL (150-450); RBC 3.07 m/uL (3.80-5.40); RDW 14.3 % (11.5-15.5); WBC 8.2 k/uL (3.8-10.6)
[2023-11-22 21:07] LABS: ALT 24 U/L (4-34); AST 26 U/L (14-36); African American GFR (CKD) 18 (>60 ml/min/1.73 sqM); Albumin 3.2 g/dL (3.5-5.0); Alkaline Phosphatase 46 U/L (38-126); Anion Gap 5 mmol/L; Blood Urea Nitrogen 48 mg/dL (7-17); Calcium 8.5 mg/dL (8.4-10.2); Carbon Dioxide 29 mmol/L (22-30); Chloride 101 mmol/L (98-107); Glucose 95 mg/dL (74-99); Magnesium 2.2 mg/dL (1.6-2.3); Non-African American GFR(CKD) 16 (>60 ml/min/1.73 sqM); Phosphorus 4.6 mg/dL (2.5-4.5); Potassium 4.8 mmol/L (3.5-5.1); Sodium 135 mmol/L (137-145); Total Bilirubin 0.4 mg/dL (0.2-1.3); Total Protein 5.3 g/dL (6.3-8.2)
[2023-11-22] MEDS: SODIUM CHLORIDE 0.9% 1,000 ML IV SCH (21:08)
[2023-11-22 21:15] LABS: NT-Pro-B-Type Natriuretic Pept 2220 pg/mL
[2023-11-22 21:42] LABS: MCV 108.7 fL (80.0-100.0)
[2023-11-22 21:47] LABS: INR 0.9 (<1.2); Prothrombin Time 10.5 sec (10.0-12.5)
[2023-11-23] MEDS ORDERED: ALBUTEROL NEBULIZED 2.5 MG/3 ML INHALATION PRN (05:40)
[2023-11-23] MEDS: SYMBICORT 160-4.5 MCG INHALER INHALATION SCH (08:05)
[2023-11-23] MEDS: IPRATROPIUM-ALBUTEROL 3 ML NEB INHALATION SCH (08:06)
--- NOTE | 2023-11-23 08:32 | P.HPIM ---
History of Present Illness H&P Date: 11/22/23 HISTORY OF PRESENT ILLNESS: 78-year-old with active medical history of end-stage renal disease on hemodialysis, chronic history of anemia, diastolic congestive heart failure, COPD/asthma, hypertension, hyperlipidemia, hypothyroidism, chronic GERD, chronic neuropathy, severe abnormal balance and gait with multiple falls who was hospitalized in October 17, 2023 for acute respiratory failure combination of fluid overload along with COPD exacerbation. NW in the hospital for few days kidney function declined significantly patient required to start hemodialysis. Has been doing hemodialysis on long since. Apparently patient went for her hemodialysis on schedule on 11/22/2023, her dialysis line did not work and looks like clotted, hemodialysis center quick thrombolytic unit and attempt to flush it did not work. End up being sent to the emergency department to be admitted to vascular for possible intervention by vascular surgery for either embolectomy or thrombolytic to the line in the [facility]. Patient will be overdue for dialysis today after her line is done. REVIEW OF SYSTEMS: CONSTITUTIONAL: Well-developed no acute respiratory distress. EYES: No icterus sclerae, no conjunctivitis. EARS, NOSE, MOUTH, THROAT, and FACE: No sore throat, lymphadenopathy, carotid bruits or deformity. RESPIRATORY: No SOB cough or wheezes. CARDIOVASCULAR: Positive PND orthopnea palpitation GASTROINTESTINAL: No Abd pain, Nausea or vomiting, no Diarrhea or constipation, No GI Bleed, no distention or masses. GENITOURINARY: Negative for Hematuria or UTI, no kidney stones. INTEGUMENT/BREAST: Negative for any muscular injury with mild osteoarthritis.. HEMATOLOGIC/LYMPHATIC: Positive anemia. MUSCULOSKELTAL: Myalgia and arthralgia. NEURLOGICAL: No LOC, Sz or syncope, blurred vision dizziness or abnormality.. BEHAVIORAL/PSYCH: Negative. ENDOCRINE: Negative. PHYSICAL EXAMINATION: General Appearance: Alert, cooperative, no distress, appears stated age. Neck HEENT: Supple, no lymphadenopathy, no thyroid enlargement, no carotid bruits. Lungs: Decreased breath sound bilaterally with fine rhonchi no crackles or wh eezes. Chest Wall: Decreased expansion with deep inspiration no tenderness and no deformity was found on exam, no costochondral pain or discomfort. Heart: Regular rate and rhythm, S1, S2, positive S3. Back: Symmetric, no curvature, ROM normal, no CVA tenderness. Abdomen: Soft, non-tender, bowel sounds active all four quadrants, no masses, no organomegaly. Extremities: Extremities normal, atraumatic, no cyanosis or edema. Pulses: 2+ and symmetric. Skin: Skin color, texture, tugor normal, no rashes or lesions. Neurologic: Alert oriented x3 cranial nerves II through XII intact, no motor deficit, no abnormal balance or gait. ASSESSMENT AND PLAN: _End-stage renal disease on hemodialysis required changing dialysis or thrombectomy all thrombolytic management to the line to be able to continue dialysis. _Malfunctioning of hemodialysis line: With a clot might require thrombolytic therapy or thrombectomy however might require to change Completely vascular is consulted patient will be going to the [facility] hopefully today. _Recent history of respiratory failure secondary to fluid overload, COPD and pneumonia _Hypothyroidism: Resume levothyroxine at 150 mcg daily. _Severe GERD: Remain on omeprazole 40 mg a_twice a day. _Hypertension: Has been on midodrine 5 mg twice a day resume medication. _Chronic depression: Has been on Prozac 20 mg daily._ _Chronic anemia: Mostly iron deficiency and continue Procrit along with iron supplement. _Overflow incontinence: Has been on Myrbetriq 25 mg daily. _GI prophylaxis: Remain on omeprazole. _DVT prophylaxis: Knee-high PATT hose and early mobilization. _CODE STATUS: Full code. _Admit patient to the inpatient service for more than 2 night stay. Past Medical History Past Medical History: Asthma, Cancer, COPD, Osteoarthritis (OA), Renal Disease, Thyroid Disorder Additional Past Medical History / Comment(s): kidney stones and UTI,steroid inje ction October 2018 hx lymphedema, hx pulmonary fibrosis, hx graves,hx rt foot torn ligaments,hx kidney stones, hx osteoporosis,hypotension, wears oxygen if feels like she needs it; vitamin D deficiency, hypocalcemia,. SKIN CANCER REMOVED FROM BRIDGE OF NOSE., PMR - polymyalgia rhematalia History of Any Multi-Drug Resistant Organisms: CRE Date of last positivie culture/infection: 10/16/18 MDRO-CRE PER [facility] NOT [facility] MDRO Source:: Urine Past Surgical History: Bariatric Surgery Additional Past Surgical History / Comment(s): hx bariatric surgery-Kye En Y,lung biopsy,radioactive iodine-tx thyroid,rectal and bladder suspensions,vaginal surgery as a child,partha carpel tunnel,rt knee meniscus repair,D&C x3, left arm fistula 02/08/19 (not working), left broken wrist, broken right wrist Past Anesthesia/Blood Transfusion Reactions: Previous Problems w/ Anesthesia, Postoperative Nausea & Vomiting (PONV) Additional Past Anesthesia/Blood Transfusion Reaction / Comment(s): decrease bp with anesthesia,no problems with prior blood transfusion Past Psychological History: No Psychological Hx Reported Smoking Status: Never smoker - Past Family History Father Family Medical History: Pulmonary Embolus Additional Family Medical History / Comment(s): . Mother Family Medical History: Cancer Additional Family Medical History / Comment(s): . Sister(s) Family Medical History: Cancer Additional Family Medical History / Comment(s): . Daughter(s) Additional Family Medical History / Comment(s): lymphedema in legs Brother(s) Family Medical History: Cancer Additional Family Medical History / Comment(s): skin cancer Medications and Allergies Home Medications Medication Instructions Recorded Confirmed Type FLUoxetine HCL [PROzac] 20 mg PO BID 08/23/18 11/22/23 History Montelukast [Singulair] 10 mg PO HS 08/23/18 11/22/23 History Omeprazole 40 mg PO AC-BID 11/19/18 11/22/23 History Sodium Bicarbonate Tab 1,950 mg PO TID 07/22/19 11/22/23 History traMADol HCL [Ultram] 50 mg PO Q8H PRN 07/22/19 11/22/23 History Loratadine 10 mg PO DAILY 12/06/19 11/22/23 History Magnesium Chloride [Mag64] 64 mg PO DAILY 12/06/19 11/22/23 History Methenamine Hippurate 1 gm PO BID 01/25/21 11/22/23 History Mirabegron [Myrbetriq] 25 mg PO DAILY 01/25/21 11/22/23 History Albuterol Inhaler [Ventolin Hfa 2 puff INHALATION RT-Q6H PRN 02/07/23 11/22/23 H istory Inhaler] Benzonatate [Tessalon Perle] 200 mg PO TID PRN 02/07/23 11/22/23 History Docusate [Colace] 200 mg PO BID 02/07/23 11/22/23 History Levothyroxine Sodium [Synthroid] 150 mcg PO DAILY 02/07/23 11/22/23 History Potassium Chloride [Klor-Con 8] 8 meq PO DAILY 02/07/23 11/22/23 History calcitrioL 1.5 mcg PO BID 02/07/23 11/22/23 History Ascorbic Acid [Vitamin C] 1,000 mg PO DAILY 10/17/23 11/22/23 History Bumetanide [BUMEX] 1 mg PO DAILY 10/17/23 11/22/23 History Calcium Acetate [PhosLo] 1,334 mg PO BID PRN 10/17/23 11/22/23 History Calcium Acetate [PhosLo] 2,004 mg PO AC-TID 10/17/23 11/22/23 History Ergocalciferol [Vitamin D2 (1250 1,250 mcg PO MOWEFRSA 10/17/23 11/22/23 History Mcg = 94384 Iu)] Gabapentin [Neurontin] 300 mg PO BID 10/17/23 11/22/23 History Sevelamer [Renvela] 800 mg PO AC-TID 10/17/23 11/22/23 History Turmeric Root Extract [Turmeric] 500 mg PO DAILY 10/17/23 11/22/23 History metroNIDAZOLE [Flagyl] 250 mg PO DAILY 10/17/23 11/22/23 History Budesonide-Formot 160-4.5 Mcg 2 puff INHALATION RT-BID #60 each 10/25/2311/21 Rx [Symbicort 160-4.5 Mcg Inhaler] Darbepoetin Mike [Aranesp] 40 mcg SQ Q7D #0 each 10/25/23 11/22/23 Rx Ipratropium-Albuterol Nebulize 3 ml INHALATION RT-QID #120 each 10/25/23 11/22/23 Rx [Duoneb 0.5 mg-3 mg/3 ml Soln] Cephalexin [Keflex] 500 mg PO BID 11/22/23 11/22/23 History Denosumab [Prolia] 60 mg SQ Q180D 11/22/23 11/22/23 History Midodrine HCl [ProAmatine] 10 mg PO TID PRN 11/22/23 11/22/23 History Allergies Allergy/AdvReac Type Severity Reaction Status Date / Time adhesive tape Allergy Rash/Hives Verified 11/22/23 20:22 Sulfa (Sulfonamide Allergy Itching Verified 11/22/23 20:22 Antibiotics) codeine AdvReac Nausea Verified 11/22/23 20:22 epoetin beta [From Mircera] AdvReac Unknown Verified 11/22/23 20:22 tetracycline AdvReac Nausea & Verified 11/22/23 20:22 Vomiting Physical Exam Vitals: Vital Signs Temp Pulse Resp BP Pulse Ox 11/22/23 20:50 66 16 142/85 97 11/22/23 17:28 97.9 F 78 18 123/79 96 Intake and Output 11/22/23 11/22/23 11/22/23 06:59 14:59 22:59 Other: Weight 53.977 kg Results CBC & Chem 7: 11/22/23 20:39 11/22/23 20:39 Labs: Abnormal Lab Results - Last 24 Hours (Table) 11/22/23 11/22/23 Range/Units 20:39 20:39 RBC 3.07 L (3.80-5.40) m/uL Hgb 10.1 L (11.4-16.0) gm/dL Hct 33.4 L (34.0-46.0) % MCV 108.7 H (80.0-100.0) fL MCHC 30.2 L (31.0-37.0) g/dL Macrocytosis Marked A Sodium 135 L (137-145) mmol/L BUN 48 H (7-17) mg/dL Creatinine 2.78 H (0.52-1.04) mg/dL Phosphorus 4.6 H (2.5-4.5) mg/dL Total Protein 5.3 L (6.3-8.2) g/dL Albumin 3.2 L (3.5-5.0) g/dL
[2023-11-23] MEDS ORDERED: MIDODRINE 5 MG TAB PO PRN (09:00)
[2023-11-23] MEDS ORDERED: BENZONATATE 100 MG CAP PO PRN (09:00)
[2023-11-23] MEDS ORDERED: NON FORMULARY DRUG (Turmeric Root Extract [Turmeric] 500 MG Tablet) PO SCH (09:00)
[2023-11-23] MEDS: GABAPENTIN 300 MG CAP PO SCH (09:25)
[2023-11-23] MEDS: LORATADINE 10 MG TAB PO SCH (09:25)
[2023-11-23] MEDS: LEVOTHYROXINE 75 MCG TAB PO SCH (09:25)
[2023-11-23] MEDS: MAGNESIUM OXIDE 400 MG TAB PO SCH (09:26)
[2023-11-23] MEDS: SEVELAMER 800 MG TAB PO SCH (09:26)
[2023-11-23] MEDS: FLUoxetine HCL 20 MG CAP PO SCH (09:26)
[2023-11-23] MEDS: DOCUSATE 100 MG CAP PO SCH (09:26)
[2023-11-23] MEDS: ASCORBIC ACID 500 MG TAB PO SCH (09:27)
--- NOTE | 2023-11-23 09:27 | XR ---
EXAMINATION TYPE: XR chest 1V DATE OF EXAM: 11/23/2023 HISTORY: evaluate tunneled cath placement, patency COMPARISON: 10/24/2023 TECHNIQUE: Single view of the chest is submitted. FINDINGS: Tunneled catheter is noted with the distal tip overlying the SVC. No evidence for pneumothorax. Demonstrated are scattered senescent parenchymal change. There is no evidence for focal infiltrate. The heart is stable. Hilar and mediastinal structures are within normal limits. Degenerative changes are seen of the dorsal spine. IMPRESSION: 1. Chronic changes without evidence for acute pulmonary disease.
[2023-11-23] MEDS: PANTOPRAZOLE 40 MG TABLET PO SCH (09:28)
[2023-11-23] MEDS: POTASSIUM CHLORIDE ER 10 MEQ TAB.ER.PRT PO SCH (09:28)
[2023-11-23] MEDS: CALCIUM ACETATE 667 MG TAB PO SCH (09:28)
[2023-11-23] MEDS: SODIUM BICARBONATE TAB 650 MG TAB PO SCH (09:36)
[2023-11-23] MEDS: CALCIUM ACETATE 667 MG TAB PO PRN (09:38)
[2023-11-23] MEDS: BUMETANIDE 1 MG TAB PO SCH (09:53)
[2023-11-23] MEDS: metroNIDAZOLE 250 MG TABLET PO SCH (09:53)
[2023-11-23] MEDS: PATIENT'S OWN (Mirabegron [Myrbetriq] 25 MG Tab.Er.24h) PO SCH (10:08)
[2023-11-23] MEDS: METHENAMINE HIPPURATE 1 GM PO SCH (10:08)
[2023-11-23 10:46] LABS: HCT 30.2 % (37.2-46.3); HGB 8.8 g/dL (12.0-15.0); MCH 32.8 pg (27.0-32.0); MCHC 29.1 g/dL (32.0-37.0); MCV 112.7 FL (80.0-97.0); Mean Platelet Volume 10.6 FL (9.5-12.2); NRBC Per 100 WBC 0 X 10*3/uL (0.00-0.01); Platelet Count 132 X 10*3/uL (140-440); RBC 2.68 X 10*6/uL (4.10-5.20); WBC 7.32 X 10*3/uL (4.50-10.00)
[2023-11-23 10:47] LABS: ALT 24 U/L (8-44); AST 23 U/L (13-35); Albumin 3.1 g/dL (3.8-4.9); Albumin/Globulin Ratio 2.21 Ratio (1.60-3.17); Alkaline Phosphatase 46 U/L (41-126); Blood Urea Nitrogen 50.4 mg/dL (9.0-27.0); Calcium 7.9 mg/dL (8.7-10.3); Carbon Dioxide 22.6 mmol/L (21.6-31.8); Chloride 104 mmol/L (96-109); Globulin 1.4 g/dL (1.6-3.3); Glucose 85 mg/dL (70-110); Magnesium 2.1 mg/dL (1.5-2.4); Phosphorus 5.2 mg/dL (2.4-5.1); Potassium 4.6 mmol/L (3.5-5.5); Sodium 141 mmol/L (135-145); Total Bilirubin 0.3 mg/dL (0.3-1.2); Total Protein 4.5 g/dL (6.2-8.2)
--- NOTE | 2023-11-23 11:13 | P.NPCON ---
History of Present Illness - Reason for Consult end stage renal disease - History of Present Illness Reason for consultation: End-stage renal disease History of present illness: Patient is a 78-year-old female seen in new consultation for end-stage renal disease. She is maintained on hemodialysis on Monday schedule via right chest permacath. Patient went to hemodialysis yesterday and was sent to the hospital due to malfunctioning permacath. Cathflo was infused. She has been seen by vascular surgery. Dialysis will be attempted today and if catheter is still not functioning then it will be exchanged. Patient denies any complaints. No chest pain or shortness of breath. No vomiting or diarrhea. No fever or chills. Oral intake is fair. Denies history of diabetes. Denies h istory of coronary artery disease. Hemodynamically stable. Vital signs are stable. General: No acute distress. HEENT: Head exam is unremarkable. LUNGS: No audible rhonchi or wheezes. HEART: Rate and Rhythm are regular. ABDOMEN: Nontender. EXTREMITITES: Trace edema. Past Medical History Past Medical History: Asthma, Cancer, COPD, Osteoarthritis (OA), Renal Disease, Thyroid Disorder Additional Past Medical History / Comment(s): kidney stones and UTI,steroid injection October 2018 hx lymphedema, hx pulmonary fibrosis, hx graves,hx rt foot torn ligaments,hx kidney stones, hx osteoporosis,hypotension, wears oxygen if feels like she needs it; vitamin D deficiency, hypocalcemia,. SKIN CANCER REMOVED FROM BRIDGE OF NOSE., PMR - polymyalgia rhematalia History of Any Multi-Drug Resistant Organisms: CRE Date of last positivie culture/infection: 10/16/18 MDRO-CRE PER [facility] NOT [facility] MDRO Source:: Urine Past Surgical History: Bariatric Surgery Additional Past Surgical History / Comment(s): hx bariatric surgery-Kye En Y,lung biopsy,radioactive iodine-tx thyroid,rectal and bladder suspensions,vaginal surgery as a child,partha carpel tunnel,rt knee meniscus repair,D&C x3, left arm fistula 02/08/19 (not working), left broken wrist, broken right wrist Past Anesthesia/Blood Transfusion Reactions: Previous Problems w/ Anesthesia, Postoperative Nausea & Vomiting (PONV) Additional Past Anesthesia/Blood Transfusion Reaction / Comment(s): decrease bp with anesthesia,no problems with prior blood transfusion Past Psychological History: No Psychological Hx Reported Smoking Status: Never smoker - Past Family History Father Family Medical History: Pulmonary Embolus Additional Family Medical History / Comment(s): . Mother Family Medical History: Cancer Additional Family Medical History / Comment(s): . Sister(s) Family Medical History: Cancer Additional Family Medical History / Comment(s): . Daughter(s) Additional Family Medical History / Comment(s): lymphedema in legs Brother(s) Family Medical History: Cancer Additional Family Medical History / Comment(s): skin cancer Medications and Allergies Home Medications Medication Instructions Recorded Confirmed Type FLUoxetine HCL [PROzac] 20 mg PO BID 08/23/18 11/22/23 History Montelukast [Singulair] 10 mg PO HS 08/23/18 11/22/23 History Omeprazole 40 mg PO AC-BID 11/19/18 11/22/23 History Sodium Bicarbonate Tab 1,950 mg PO TID 07/22/19 11/22/23 History traMADol HCL [Ultram] 50 mg PO Q8H PRN 07/22/19 11/22/23 History Loratadine 10 mg PO DAILY 12/06/19 11/22/23 History Magnesium Chloride [Mag64] 64 mg PO DAILY 12/06/19 11/22/23 History Methenamine Hippurate 1 gm PO BID 01/25/21 11/22/23 History Mirabegron [Myrbetriq] 25 mg PO DAILY 01/25/21 11/22/23 History Albuterol Inhaler [Ventolin Hfa 2 puff INHALATION RT-Q6H PRN 02/07/23 11/22/23 History Inhaler] Benzonatate [Tessalon Perle] 200 mg PO TID PRN 02/07/23 11/22/23 History Docusate [Colace] 200 mg PO BID 02/07/23 11/22/23 History Levothyroxine Sodium [Synthroid] 150 mcg PO DAILY 02/07/23 11/22/23 History Potassium Chloride [Klor-Con 8] 8 meq PO DAILY 02/07/23 11/22/23 History calcitrioL 1.5 mcg PO BID 02/07/23 11/22/23 History Ascorbic Acid [Vitamin C] 1,000 mg PO DAILY 10/17/23 11/22/23 History Bumetanide [BUMEX] 1 mg PO DAILY 10/17/23 11/22/23 History Calcium Acetate [PhosLo] 1,334 mg PO BID PRN 10/17/23 11/22/23 History Calcium Acetate [PhosLo] 2,004 mg PO AC-TID 10/17/23 11/22/23 History Ergocalciferol [Vitamin D2 (1250 1,250 mcg PO MOWEFRSA 10/17/23 11/22/23 History Mcg = 11000 Iu)] Gabapentin [Neurontin] 300 mg PO BID 10/17/23 11/22/23 History Sevelamer [Renvela] 800 mg PO AC-TID 10/17/23 11/22/23 History Turmeric Root Extract [Turmeric] 500 mg PO DAILY 10/17/23 11/22/23 History metroNIDAZOLE [Flagyl] 250 mg PO DAILY 10/17/23 11/22/23 History Budesonide-Formot 160-4.5 Mcg 2 puff INHALATION RT-BID #60 each 10/25/23 11/22/23 Rx [Symbicort 160-4.5 Mcg Inhaler] Darbepoetin Mike [Aranesp] 40 mcg SQ Q7D #0 each 10/25/23 11/22/23 Rx Ipratropium-Albuterol Nebulize 3 ml INHALATION RT-QID #120 each 10/25/23 11/22/23 Rx [Duoneb 0.5 mg-3 mg/3 ml Soln] Cephalexin [Keflex] 500 mg PO BID 11/22/23 11/22/23 History Denosumab [Prolia] 60 mg SQ Q180D 11/22/23 11/22/23 History Midodrine HCl [ProAmatine] 10 mg PO TID PRN 11/22/23 11/22/23 History Allergies Allergy/AdvReac Type Severity Reaction Status Date / Time adhesive tape Allergy Rash/Hives Verified 11/22/23 20:22 Sulfa (Sulfonamide Allergy Itching Verified 11/22/23 20:22 Antibiotics) codeine AdvReac Nausea Verified 11/22/23 20:22 epoetin beta [From Mircera] AdvReac Unknown Verified 11/22/23 20:22 tetracycline AdvReac Nausea & Verified 11/22/23 20:22 Vomiting Physical Exam Vitals: Vital Signs Temp Pulse Pulse Resp BP BP Pulse Ox 11/23/23 08:24 97.7 F 76 17 127/70 96 11/23/23 06:11 74 16 113/70 96 11/23/23 02:32 69 16 139/82 95 11/23/23 00:25 67 16 146/77 96 11/22/23 23:01 71 16 127/87 96 11/22/23 20:50 66 16 142/85 97 11/22/23 17:28 97.9 F 78 18 123/79 96 Intake and Output 11/22/23 11/23/23 11/23/23 22:59 06:59 14:59 Other: Weight 53.977 kg Results - Lab Results Most recent lab results Calcium 7.9 mg/dL (8.7-10.3) L 11/23/23 06:17 Phosphorus 5.2 mg/dL (2.4-5.1) H 11/23/23 06:17 Magnesium 2.1 mg/dL (1.5-2.4) 11/23/23 06:17 11/23/23 06:17 11/23/23 06:17 Assessment and Plan Plan: Assessment: 1. End-stage renal disease maintained on hemodialysis on Monday schedule via right chest permacath. 2. Chronic kidney disease mineral bone disease maintained on calcitriol and phosphate binders. Phosphorus level 5.2. 3. Anemia of chronic kidney disease maintained on Aranesp. 4. Malfunctioning permacath. Cathflo infused. Vascular surgery following. Plan: Hemodialysis today. If no difficulty with hemodialysis today, can be discharged. Otherwise the catheter will need to be exchanged. Case discussed with vascular surgery. Thank you for the consultation. I will continue to follow the patient with you during her hospital stay.
[2023-11-23 11:19] LABS: Basophils # (A) 0.07 X 10*3/uL (0.00-0.10); Eosinophils # (A) 0.11 X 10*3/uL (0.04-0.35); Eosinophils % (A) 1.5 %; Lymphocytes # (A) 1.62 X 10*3/uL (0.90-5.00); Lymphocytes % (A) 22.1 %; Macrocytosis (M) 3+; Monocytes # (A) 0.97 X 10*3/uL (0.20-1.00); Monocytes % (A) 13.3 %; Neutrophils % (A) 61.4 %
--- NOTE | 2023-11-23 13:27 | P.GSCN ---
History of Present Illness Consult date: 11/23/23 Reason for Consult: Is a pleasant 78-year-old female with a history of chronic kidney disease who follows with nephrology and last month they recommended she have renal r eplacement therapy. She is known to our vascular surgical group. She had a right tunneled catheter placed 10/24/2023 and had started hemodialysis. She initially went Monday now she is on a Monday schedule. She states yesterday she went to dialysis and they were unable to do dialysis and states that her dialysis catheter was clogged. They gave tPA through the catheter and patient states they tried again about an hour later however still were unsuccessful and had the patient come to the emergency department. Vascular surgery was consulted regarding malfunctioning dialysis catheter. Patient denies any pain in her neck or chest. She denies any shortness of breath, chest pain, or lower extremity swelling. Admitting labs WBC 8.2 hemoglobin 10 platelet count 155,000 sodium 135 potassium 4.8 BUN 48 creatinine 2.78 BNP 2220. Review of Systems A 14 point review systems was completed all pertinent positives and negatives as stated in the HPI. Past Medical History Past Medical History: Asthma, Cancer, COPD, Osteoarthritis (OA), Renal Disease, Thyroid Disorder Additional Past Medical History / Comment(s): kidney stones and UTI,steroid injection October 2018 hx lymphedema, hx pulmonary fibrosis, hx graves,hx rt foot torn ligaments,hx kidney stones, hx osteoporosis,hypotension, wears oxygen if feels like she needs it; vitamin D deficiency, hypocalcemia,. 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 PER [facility] NOT [facility] MDRO Source:: Urine Past Surgical History: Bariatric Surgery Additional Past Surgical History / Comment(s): hx bariatric surgery-Kye En Y,lung biopsy,radioactive iodine-tx thyroid,rectal and bladder scott spensions,vaginal surgery as a child,partha carpel tunnel,rt knee meniscus repair,D&C x3, left arm fistula 02/08/19 (not working), left broken wrist, broken right wrist Past Anesthesia/Blood Transfusion Reactions: Previous Problems w/ Anesthesia, Postoperative Nausea & Vomiting (PONV) Additional Past Anesthesia/Blood Transfusion Reaction / Comm: decrease bp with anesthesia,no problems with prior blood transfusion Past Psychological History: No Psychological Hx Reported Smoking Status: Never smoker - Past Family History Father Family Medical History: Pulmonary Embolus Additional Family Medical History / Comment(s): . Mother Family Medical History: Cancer Additional Family Medical History / Comment(s): . Sister(s) Family Medical History: Cancer Additional Family Medical History / Comment(s): . Daughter(s) Additional Family Medical History / Comment(s): lymphedema in legs Brother(s) Family Medical History: Cancer Additional Family Medical History / Comment(s): skin cancer Medications and Allergies Home Medications Medication Instructions Recorded Confirmed Type FLUoxetine HCL [PROzac] 20 mg PO BID 08/23/18 11/22/23 History Montelukast [Singulair] 10 mg PO HS 08/23/18 11/22/23 History Omeprazole 40 mg PO AC-BID 11/19/18 11/22/23 History Sodium Bicarbonate Tab 1,950 mg PO TID 07/22/19 11/22/23 History traMADol HCL [Ultram] 50 mg PO Q8H PRN 07/22/19 11/22/23 History Loratadine 10 mg PO DAILY 12/06/19 11/22/23 History Magnesium Chloride [Mag64] 64 mg PO DAILY 12/06/19 11/22/23 History Methenamine Hippurate 1 gm PO BID 01/25/21 11/22/23 History Mirabegron [Myrbetriq] 25 mg PO DAILY 01/25/21 11/22/23 History Albuterol Inhaler [Ventolin Hfa 2 puff INHALATION RT-Q6H PRN 02/07/23 11/22/23 History Inhaler] Benzonatate [Tessalon Perle] 200 mg PO TID PRN 02/07/23 11/22/23 History Docusate [Colace] 200 mg PO BID 02/07/23 11/22/23 History Levothyroxine Sodium [Synthroid] 150 mcg PO DAILY 02/07/23 11/22/23 History Potassium Chloride [Klor-Con 8] 8 meq PO DAILY 02/07/23 11/22/23 History calcitrioL 1.5 mcg PO BID 02/07/23 11/22/23 History Ascorbic Acid [Vitamin C] 1,000 mg PO DAILY 10/17/23 11/22/23 History Bumetanide [BUMEX] 1 mg PO DAILY 10/17/23 11/22/23 History Calcium Acetate [PhosLo] 1,334 mg PO BID PRN 10/17/23 11/22/23 History Calcium Acetate [PhosLo] 2,004 mg PO AC-TID 10/17/23 11/22/23 History Ergocalciferol [Vitamin D2 (1250 1,250 mcg PO MOWEFRSA 10/17/23 11/22/23 History Mcg = 07604 Iu)] Gabapentin [Neurontin] 300 mg PO BID 10/17/23 11/22/23 History Sevelamer [Renvela] 800 mg PO AC-TID 10/17/23 11/22/23 History Turmeric Root Extract [Turmeric] 500 mg PO DAILY 10/17/23 11/22/23 History metroNIDAZOLE [Flagyl] 250 mg PO DAILY 10/17/23 11/22/23 History Budesonide-Formot 160-4.5 Mcg 2 puff INHALATION RT-BID #60 each 10/25/23 11/22/23 Rx [Symbicort 160-4.5 Mcg Inhaler] Darbepoetin Mike [Aranesp] 40 mcg SQ Q7D #0 each 10/25/23 11/22/23 Rx Ipratropium-Albuterol Nebulize 3 ml INHALATION RT-QID #120 each 10/25/23 11/22/23 Rx [Duoneb 0.5 mg-3 mg/3 ml Soln] Cephalexin [Keflex] 500 mg PO BID 11/22/23 11/22/23 History Denosumab [Prolia] 60 mg SQ Q180D 11/22/23 11/22/23 History Midodrine HCl [ProAmatine] 10 mg PO TID PRN 11/22/23 11/22/23 History Allergies Allergy/AdvReac Type Severity Reaction Status Date / Time adhesive tape Allergy Rash/Hives Verified 11/22/23 20:22 Sulfa (Sulfonamide Allergy Itching Verified 11/22/23 20:22 Antibiotics) codeine AdvReac Nausea Verified 11/22/23 20:22 epoetin beta [From Mircera] AdvReac Unknown Verified 11/22/23 20:22 tetracycline AdvReac Nausea & Verified 11/22/23 20:22 Vomiting Surgical - Exam Vital Signs Temp Pulse Resp BP Pulse Ox 97.9 F 78 18 123/79 96 11/22/23 17:28 11/22/23 17:28 11/22/23 17:28 11/22/23 17:28 11/22/23 17:28 General appearance: The patient is alert, oriented, appears in no acute distress. HET: Head is normocephalic and atraumatic. Pupils are equal and reactive. Neck: Supple. Chest: Right upper chest with tunneled catheter in place without any redness, swelling, tenderness or bleeding. Heart: Regular. Lungs: Equal expansion, normal respiratory effort. Abdomen: Soft, nontender, nondistended. Extremities: Normal skin color and turgor. Palpable radial pulses. Neurological: No focal deficits. Strength and sensation are grossly intact. Results - Labs 11/23/23 06:17 11/23/23 06:17 Abnormal Lab Results - Last 24 Hours (Table) 11/22/23 11/22/23 Range/Units 20:39 20:39 RBC 3.07 L (3.80-5.40) m/uL Hgb 10.1 L (11.4-16.0) gm/dL Hct 33.4 L (34.0-46.0) % MCV 108.7 H (80.0-100.0) fL MCHC 30.2 L (31.0-37.0) g/dL Macrocytosis Marked A Sodium 135 L (137-145) mmol/L BUN 48 H (7-17) mg/dL Creatinine 2.78 H (0.52-1.04) mg/dL Phosphorus 4.6 H (2.5-4.5) mg/dL Total Protein 5.3 L (6.3-8.2) g/dL Albumin 3.2 L (3.5-5.0) g/dL Diabetes panel 11/22/23 Range/Units 20:39 Sodium 135 L (137-145) mmol/L Potassium 4.8 (3.5-5.1) mmol/L Chloride 101 (98-107) mmol/L Carbon Dioxide 29 (22-30) mmol/L BUN 48 H (7-17) mg/dL Creatinine 2.78 H (0.52-1.04) mg/dL Glucose 95 (74-99) mg/dL Calcium 8.5 (8.4-10.2) mg/dL AST 26 (14-36) U/L ALT 24 (4-34) U/L Alkaline Phosphatase 46 (38-126) U/L Total Protein 5.3 L (6.3-8.2) g/dL Albumin 3.2 L (3.5-5.0) g/dL Calcium panel 11/22/23 Range/Units 20:39 Calcium 8.5 (8.4-10.2) mg/dL Phosphorus 4.6 H (2.5-4.5) mg/dL Albumin 3.2 L (3.5-5.0) g/dL Pituitary panel 11/22/23 Range/Units 20:39 Sodium 135 L (137-145) mmol/L Potassium 4.8 (3.5-5.1) mmol/L Chloride 101 (98-107) mmol/L Carbon Dioxide 29 (22-30) mmol/L BUN 48 H (7-17) mg/dL Creatinine 2.78 H (0.52-1.04) mg/dL Glucose 95 (74-99) mg/dL Calcium 8.5 (8.4-10.2) mg/dL Adrenal panel 11/22/23 Range/Units 20:39 Sodium 135 L (137-145) mmol/L Potassium 4.8 (3.5-5.1) mmol/L Chloride 101 (98-107) mmol/L Carbon Dioxide 29 (22-30) mmol/L BUN 48 H (7-17) mg/dL Creatinine 2.78 H (0.52-1.04) mg/dL Glucose 95 (74-99) mg/dL Calcium 8.5 (8.4-10.2) mg/dL Total Bilirubin 0.4 (0.2-1.3) mg/dL AST 26 (14-36) U/L ALT 24 (4-34) U/L Alkaline Phosphatase 46 (38-126) U/L Total Protein 5.3 L (6.3-8.2) g/dL Albumin 3.2 L (3.5-5.0) g/dL - Imaging Comments: Chest x-ray reports chronic changes without evidence for acute pulmonary disease. Tunneled catheter noted with the distal tip overlying the SVC. No evidence for pneumothorax. Assessment and Plan Assessment: 1. Malfunctioning tunneled dialysis catheter, now working after Cathflo infusion 2. End-stage renal disease maintained on hemodialysis 3. Anemia of chronic disease Plan: 1. Chest x-ray ordered and reviewed 2. Cathflo was infused yesterday at outpatient hemodialysis center 3. Recommend hemodialysis per recommendations from nephrology 4. Tunneled dialysis catheter working without any complications 5. There are no indications for any vascular surgical intervention at this time Thank you for this consultation, patient is cleared from vascular surgery for discharge. She can follow-up with Dr. Montanez in 1 to 2 weeks. The impression and plan of care has been dictated as directed. I performed a history and examination of this patient, discussed the same with the dictator. I agree with the dictator's note ,documented as a scribe. Any additional findings or plans will be noted.
--- NOTE | 2023-11-23 18:17 | CT ---
EXAMINATION TYPE: CT brain darlene wo con DATE OF EXAM: 11/23/2023 COMPARISON: 10/15/2022 HISTORY: Patient on dialysis, fell and hit head in bathroom. CT DLP: 1360 mGycm, Automated exposure control for dose reduction was used. CONTRAST: None CT of the brain is performed utilizing 3 mm thick sections through the posterior fossa and 3 mm thick sections through the remaining calvarium. Study is performed within 24 hours of arrival to the hospital. No abnormal hyperdensity is present to suggest an acute intracranial hemorrhage. No mass lesion is evident. No acute infarcts are evident. Patchy periventricular white matter hypodensity is present, likely on the basis of chronic white matter ischemic changes. This was present previously Ventricles and sulci are appropriate for the patient age. Paranasal sinuses and mastoid air cells within the [id number] are clear. IMPRESSIONS: 1. Atrophy with chronic appearing periventricular white matter ischemic changes. 2. No acute intracranial process. Follow-up MRI can be performed as clinically indicated CT cervical spine. COMPARISON: None CT of the cervical spine is performed in the axial plane at 2 mm thick sections. Reconstructed image s in the coronal, and sagittal plane are reviewed on the computer. No acute fractures are evident. There is a grade 1 spondylolisthesis of L4 internal 5 There is diffuse loss of disc height throughout the cervical spine. Vertebral body heights are preserved. No spinal canal stenosis is evident. No neural foraminal stenosis is evident. IMPRESSION: 1. Degenerative disc changes within the cervical spine. 2. No acute osseous abnormality.
[2023-11-23] MEDS: traMADol 50 MG TAB PO PRN (19:03)
[2023-11-23] MEDS: MONTELUKAST 10 MG TAB PO SCH (20:44)
[2023-11-23 21:33] VITALS: RESP 16
[2023-11-24 00:25] LABS: Appearance,Urine Clear (Clear); Bacteria,Urine Occasional /hpf; Bilirubin,Urine Negative (Negative); Blood,Urine Negative (Negative); Color,Urine Colorless; Glucose,Urine (UA) Negative (Negative); Ketones,Urine Negative (Negative); Leukocyte Esterase,Urine Small (Negative); Mucus,Urine Rare /hpf; Nitrite,Urine Negative (Negative); Protein,Urine Negative (Negative); RBC,Urine 1 /hpf (0-5); Specific Gravity,Urine 1.006 (1.001-1.035); Squamous Epithelial Cell,Urine 1 /hpf (0-4); Urobilinogen,Urine <2.0 mg/dL (<2.0); WBC,Urine 2 /hpf (0-5)
[2023-11-24 07:43] VITALS: BP 109/69; PULSE 74; TEMP 98.1
[2023-11-24] MEDS: ERGOCALCIFEROL 1,250 MCG (50,000 IU) CAPSULE PO SCH (08:28)
--- NOTE | 2023-11-24 12:35 | P.PN ---
Subjective Patient is seen in follow-up for end-stage renal disease. She is maintained on hemodialysis on Monday schedule. No problems with dialysis yesterday. She is scheduled to undergo hemodialysis today but will go to her outpatient unit. Patient did fall yesterday but feels fine. Vital signs are stable. General: No acute distress. HEENT: Head exam is unremarkable. LUNGS: No audible rhonchi or wheezes. HEART: Rate and Rhythm are regular. ABDOMEN: Nontender. EXTREMITITES: 1+ edema. Objective - Vital Signs Vital signs: Vital Signs Temp 98.1 F 11/24/23 07:30 Pulse 74 11/24/23 07:30 Resp 16 11/24/23 07:30 BP 109/69 11/24/23 07:30 Pulse Ox 93 L 11/24/23 07:30 FiO2 Intake & Output 11/23/23 11/24/23 11/24/23 18:59 06:59 18:59 Intake Total 400 590 Output Total 1400 Balance -1000 590 Weight 53.977 kg Intake: Oral 590 Hemodialysis 400 Output: Hemodialysis 1400 Other: Voiding Method Toilet # Voids 3 1 # Bowel Movements 3 - Labs CBC & Chem 7: 11/23/23 06:17 11/23/23 06:17 Labs: Abnormal Lab Results - Last 24 Hours (Table) 11/23/23 Range/Units 23:20 Ur Leukocyte Esterase Small H (Negative) Urine Bacteria Occasional H (None) /hpf Urine Mucus Rare H (None) /hpf Assessment and Plan Plan: Assessment: 1. End-stage renal disease maintained on hemodialysis on Monday schedule via right chest permacath. 2. Chronic kidney disease mineral bone disease maintained on calcitriol and phosphate binders. Phosphorus level 5.2. 3. Anemia of chronic kidney disease maintained on Aranesp. 4. Malfunctioning permacath. Improved with Cathflo infusion. No problems with dialysis yesterday. Seen by vascular surgery. Plan: Hemodialysis today. Patient will go to outpatient unit for dialysis.
--- NOTE | 2023-11-25 16:55 | P.PN ---
Subjective Progress Note Date: 11/24/23 HISTORY OF PRESENT ILLNESS: 78-year-old with active medical history of end-stage renal disease on hemodialysis, chronic history of anemia, diastolic congestive heart failure, COPD/asthma, hypertension, hyperlipidemia, hypothyroidism, chronic GERD, chronic neuropathy, severe abnormal balance and gait with multiple falls who was hospitalized in October 17, 2023 for acute respiratory failure combination of fluid overload along with COPD exacerbation. NW in the hospital for few days kidney function declined significantly patient required to start hemodialysis. Has been doing hemodialysis on long since. Apparently patient went for her hemodialysis on schedule on Monday, 2023, her dialysis line did not work and looks like clotted, hemodialysis center quick thrombolytic unit and attempt to flush it did not work. End up being sent to the emergency department to be admitted to vascular for possible intervention by vascular surgery for either embolectomy or thrombolytic to the line in the School Curriculum Developer. Patient will be overdue for dialysis today after her line is done. 11/24/2023: Patient was kept in the hospital overnight apparently after she was done with her dialysis attempt to get out of bed she fell and slammed her left side on the floor developed to have slight laceration. CAT scan of the brain came back negative CT of the cervical spine was negative as well. Patient was extremely exhausted tired and could not move or ambulate at the time and that keeping the patient in the hospital from 11/24 to 11/24/2023. Seen the patient mass spectrometry manager today apparently has an appointment for dialysis at 1130 she wants to be out of the hospital before 9:30 in the morning. Expedite her discharge to help her out so she can go back to do her dialysis. Her dialysis line continue to be working just fine at this point. REVIEW OF SYSTEMS: CONSTITUTIONAL: Well-developed no acute respiratory distress. EYES: No icterus sclerae, no conjunctivitis. EARS, NOSE, MOUTH, THROAT, and FACE: No sore throat, lymphadenopathy, carotid bruits or deformity. RESPIRATORY: No SOB cough or wheezes. CARDIOVASCULAR: Positive PND orthopnea palpitation GASTROINTESTINAL: No Abd pain, Nausea or vomiting, no Diarrhea or constipation, No GI Bleed, no distention or masses. GENITOURINARY: Negative for Hematuria or UTI, no kidney stones. INTEGUMENT/BREAST: Negative for any muscular injury with mild osteoarthritis.. HEMATOLOGIC/LYMPHATIC: Positive anemia. MUSCULOSKELTAL: Myalgia and arthralgia. NEURLOGICAL: No LOC, Sz or syncope, blurred vision dizziness or abnormality.. BEHAVIORAL/PSYCH: Negative. ENDOCRINE: Negative. PHYSICAL EXAMINATION: General Appearance: Alert, cooperative, no distress, appears stated age. Neck HEENT: Supple, no lymphadenopathy, no thyroid enlargement, no carotid bruits. Lungs: Decreased breath sound bilaterally with fine rhonchi no crackles or wheezes. Chest Wall: Decreased expansion with deep inspiration no tenderness and no deformity was found on exam, no costochondral pain or discomfort. Heart: Regular rate and rhythm, S1, S2, positive S3. Back: Symmetric, no curvature, ROM normal, no CVA tenderness. Abdomen: Soft, non-tender, bowel sounds active all four quadrants, no masses, no organomegaly. Extremities: Extremities normal, atraumatic, no cyanosis or edema. Pulses: 2+ and symmetric. Skin: Skin color, texture, tugor normal, no rashes or lesions. Neurologic: Alert oriented x3 cranial nerves II through XII intact, no motor deficit, no abnormal balance or gait. ASSESSMENT AND PLAN: _End-stage renal disease on hemodialysis required changing dialysis cath or thrombectomy all thrombolytic management to the line was done dialysis center was not effective initially. And by the time she mated to the hospital the thrombolytic worked just fine. _Malfunctioning of hemodialysis line: Thrombolytic in the dialysis line and that working from what she had in the dialysis center from mass spectrometry manager by vascular. Did not require any change in dialysis line at this point. _Recent history of respiratory failure secondary to fluid overload, COPD and pneumonia _Hypothyroidism: Resume levothyroxine at 150 mcg daily. _Severe GERD: Remain on omeprazole 40 mg a_twice a day. _Hypertension: Has been on midodrine 5 mg twice a day resume medication. _Chronic depression: Has been on Prozac 20 mg daily._ _Chronic anemia: Mostly iron deficiency and continue Procrit along with iron supplement. _Overflow incontinence: Has been on Myrbetriq 25 mg daily. _GI prophylaxis: Remain on omeprazole. _DVT prophylaxis: Knee-high PATT hose and early mobilization. _CODE STATUS: Full code. Discussion despite the malfunction of her hemodialysis line after putting thrombolytic in the catheter apparently her line had worked fine on 11/23/2023 ended up having dialysis. After the dialysis she felt and had slight trauma to the left side of her head CAT scan of the brain and x-ray of the neck came back to be negative for any major finding. Patient end up spending the night in the hospital but she is going home today after she goes to outpatient dialysis to finish her dialysis. Objective - Vital Signs Vital signs: Vital Signs Temp 97.8 F 11/24/23 02:00 Pulse 81 11/24/23 02:00 Resp 16 11/24/23 02:00 BP 91/52 11/24/23 02:00 Pulse Ox 92 L 11/24/23 02:00 FiO2 Intake & Output 11/23/23 11/23/23 11/24/23 06:59 18:59 06:59 Intake Total 400 Output Total 1400 Balance -1000 Weight 53.977 kg Intake: Hemodialysis 400 Output: Hemodialysis 1400 Other: # Bowel Movements 3 - Labs CBC & Chem 7: 11/23/23 06:17 11/23/23 06:17 Labs: Abnormal Lab Results - Last 24 Hours (Table) 11/23/23 11/23/23 11/23/23 Range/Units 06:17 06:17 23:20 RBC 2.68 L (4.10-5.20) X 10*6/uL Hgb 8.8 L (12.0-15.0) g/dL Hct 30.2 L (37.2-46.3) % MCV 112.7 H (80.0-97.0) FL MCH 32.8 H (27.0-32.0) pg MCHC 29.1 L (32.0-37.0) g/dL RDW 15.0 H (11.5-14.5) % Plt Count 132 L (140-440) X 10*3/uL Immature Gran # 0.05 H (0.00-0.04) X 10*3/uL Macrocytosis (manual) 3+ A Anion Gap 14.40 H (4.00-12.00) mmol/L BUN 50.4 H (9.0-27.0) mg/dL Creatinine 3.5 H (0.6-1.5) mg/dL Est GFR (CKD-EPI) 13 L (>=60) Calcium 7.9 L (8.7-10.3) mg/dL Phosphorus 5.2 H (2.4-5.1) mg/dL Total Protein 4.5 L (6.2-8.2) g/dL Albumin 3.1 L (3.8-4.9) g/dL Globulin 1.4 L (1.6-3.3) g/dL Ur Leukocyte Esterase Small H (Negative) Urine Bacteria Occasional H (None) /hpf Urine Mucus Rare H (None) /hpf
--- NOTE | 2023-11-25 16:56 | P.DS ---
Providers Date of admission: 11/22/23 19:09 Attending physician: Bienvenido Hogue Consults: 11/22/23 19:44 Consult Physician Routine Consulting Provider: Sarahy Casas Consult Reason/Comments: known Do you want consulting provider notified?: Yes Consult Physician Routine Consulting Provider: Augustus Pace Consult Reason/Comments: kno Do you want consulting provider notified?: Yes Primary care physician: [facility] Course: HISTORY OF PRESENT ILLNESS: 78-year-old with active medical history of end-stage renal disease on hemodialysis, chronic history of anemia, diastolic congestive heart failure, COPD/asthma, hypertension, hyperlipidemia, hypothyroidism, chronic GERD, chronic neuropathy, severe abnormal balance and gait with multiple falls who was hospitalized in October 17, 2023 for acute respiratory failure combination of fluid overload along with COPD exacerbation. NW in the hospital for few days kidney function declined significantly patient required to start hemodialysis. Has been doing hemodialysis on long since. Apparently patient went for her hemodialysis on schedule on 11/22/2023, her dialysis line did not work and looks like clotted, hemodialysis center quick thrombolytic unit and attempt to flush it did not work. End up being sent to the emergency department to be admitted to vascular for possible intervention by vascular surgery for either embolectomy or thrombolytic to the line in the Resident Care Supervisor. Patient will be overdue for dialysis today after her line is done. 11/24/2023: Patient was kept in the hospital overnight apparently after she was done with her dialysis attempt to get out of bed she fell and slammed her left side on the floor developed to have slight laceration. CAT scan of the brain came back negative CT of the cervical spine was negative as well. Patient was extremely exhausted tired and could not move or ambulate at the time and that keeping the patient in the hospital from 11/24 to 11/24/2023. 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 Expedite her discharge to help her out so she can go back to do her dialysis. Her dialysis line continue to be working just fine at this point. REVIEW OF SYSTEMS: CONSTITUTIONAL: Well-developed no acute respiratory distress. EYES: No icterus sclerae, no conjunctivitis. EARS, NOSE, MOUTH, THROAT, and FACE: No sore throat, lymphadenopathy, carotid bruits or deformity. RESPIRATORY: No SOB cough or wheezes. CARDIOVASCULAR: Positive PND orthopnea palpitation GASTROINTESTINAL: No Abd pain, Nausea or vomiting, no Diarrhea or constipation, No GI Bleed, no distention or masses. GENITOURINARY: Negative for Hematuria or UTI, no kidney stones. INTEGUMENT/BREAST: Negative for any muscular injury with mild osteoarthritis.. HEMATOLOGIC/LYMPHATIC: Positive anemia. MUSCULOSKELTAL: Myalgia and arthralgia. NEURLOGICAL: No LOC, Sz or syncope, blurred vision dizziness or abnormality.. BEHAVIORAL/PSYCH: Negative. ENDOCRINE: Negative. PHYSICAL EXAMINATION: General Appearance: Alert, cooperative, no distress, appears stated age. Neck HEENT: Supple, no lymphadenopathy, no thyroid enlargement, no carotid bruits. Lungs: Decreased breath sound bilaterally with fine rhonchi no crackles or wheezes. Chest Wall: Decreased expansion with deep inspiration no tenderness and no deformity was found on exam, no costochondral pain or discomfort. Heart: Regular rate and rhythm, S1, S2, positive S3. Back: Symmetric, no curvature, ROM normal, no CVA tenderness. Abdomen: Soft, non-tender, bowel sounds active all four quadrants, no masses, no organomegaly. Extremities: Extremities normal, atraumatic, no cyanosis or edema. Pulses: 2+ and symmetric. Skin: Skin color, texture, tugor normal, no rashes or lesions. Neurologic: Alert oriented x3 cranial nerves II through XII intact, no motor de ficit, no abnormal balance or gait. ASSESSMENT AND PLAN: _End-stage renal disease on hemodialysis with malfunction of dialysis line will required either changing dialysis catheter or thrombectomy all thrombolytic management to the line to be able to continue dialysis. _Malfunctioning of hemodialysis line: After applying thrombectomy again on the line by vascular the dialysis line and not working fine. _Recent history of respiratory failure secondary to fluid overload, COPD and pneumonia _Hypothyroidism: Resume levothyroxine at 150 mcg daily. _Severe GERD: Remain on omeprazole 40 mg a_twice a day. _Hypertension: Has been on midodrine 5 mg twice a day resume medication. _Chronic depression: Has been on Prozac 20 mg daily._ _Chronic anemia: Mostly iron deficiency and continue Procrit along with iron supplement. _Overflow incontinence: Has been on Myrbetriq 25 mg daily. _GI prophylaxis: Remain on omeprazole. _DVT prophylaxis: Knee-high PATT hose and early mobilization. _CODE STATUS: Full code. Discussion despite the malfunction of her hemodialysis line after putting thrombolytic in the catheter apparently her line had worked fine on 11/23/2023 ended up having dialysis. After the dialysis she felt and had slight trauma to the left side of her head CAT scan of the brain and x-ray of the neck came back to be negative for any major finding. Patient end up spending the night in the hospital but she is going home today after she goes to outpatient dialysis to finish her dialysis. Hospital course: The patient was sent from hemodialysis to the hospital on 11/22/2023 because of malfunction of dialysis catheter in the right IJ area despite doing thrombolytic did not work patient mated to the hospital very late was admitted after midnight was seen and evaluated on 11/23/2023 after consult for nephrology and vascular. Thrombolytic again was dry and her dialysis line and catheter apparently ended up helping because dialysis line not working just fine at this point and patient ended up having dialysis on 11/23/2023. Following her dialysis as an inpatient she fell because felt lightheaded and ended up hitting the left side of her head with mild laceration CT of the brain came back to be negative. X-ray of the neck came back to be negative as well. Patient ended up spending the night in the hospital for observation to watch for any complication from her trauma she is ready to go home today 11/24/2023 she is going from the hospital to do dialysis before she goes home. Time spent discharging patient was over 32 minutes. Patient Condition at Discharge: Serious Plan - Discharge Summary Discharge Rx Participant: No New Discharge Prescriptions: Continue Montelukast [Singulair] 10 mg PO HS FLUoxetine HCL [PROzac] 20 mg PO BID Omeprazole 40 mg PO AC-BID Sodium Bicarbonate Tab 1,950 mg PO TID traMADol HCL [Ultram] 50 mg PO Q8H PRN PRN Reason: Pain Magnesium Chloride [Mag64] 64 mg PO DAILY Loratadine 10 mg PO DAILY Methenamine Hippurate 1 gm PO BID Mirabegron [Myrbetriq] 25 mg PO DAILY Benzonatate [Tessalon Perle] 200 mg PO TID PRN PRN Reason: Cough Levothyroxine Sodium [Synthroid] 150 mcg PO DAILY Calcium Acetate [PhosLo] 2,004 mg PO AC-TID metroNIDAZOLE [Flagyl] 250 mg PO DAILY Ergocalciferol [Vitamin D2 (1250 Mcg = 66300 Iu)] 1,250 mcg PO MOWEFRSA Gabapentin [Neurontin] 300 mg PO BID Bumetanide [BUMEX] 1 mg PO DAILY Ipratropium-Albuterol Nebulize [Duoneb 0.5 mg-3 mg/3 ml Soln] 3 ml INHALATION RT-QID #120 each Budesonide-Formot 160-4.5 Mcg [Symbicort 160-4.5 Mcg Inhaler] 2 puff INHALATION RT-BID #60 each Denosumab [Prolia] 60 mg SQ Q180D Midodrine HCl [ProAmatine] 10 mg PO TID PRN PRN Reason: Blood Pressure - Low calcitrioL 1.5 mcg PO BID Potassium Chloride [Klor-Con 8] 8 meq PO DAILY Albuterol Inhaler [Ventolin Hfa Inhaler] 2 puff INHALATION RT-Q6H PRN PRN Reason: Shortness Of Breath Docusate [Colace] 200 mg PO BID Turmeric Root Extract [Turmeric] 500 mg PO DAILY Calcium Acetate [PhosLo] 1,334 mg PO BID PRN PRN Reason: snacks Ascorbic Acid [Vitamin C] 1,000 mg PO DAILY Sevelamer [Renvela] 800 mg PO AC-TID Darbepoetin Mike [Aranesp] 40 mcg SQ Q7D #0 each Cephalexin [Keflex] 500 mg PO BID Discharge Medication List FLUoxetine HCL [PROzac] 20 mg PO BID 08/23/18 [History] Montelukast [Singulair] 10 mg PO HS 08/23/18 [History] Omeprazole 40 mg PO AC-BID 11/19/18 [History] Sodium Bicarbonate Tab 1,950 mg PO TID 07/22/19 [History] traMADol HCL [Ultram] 50 mg PO Q8H PRN 07/22/19 [History] Loratadine 10 mg PO DAILY 12/06/19 [History] Magnesium Chloride [Mag64] 64 mg PO DAILY 12/06/19 [History] Methenamine Hippurate 1 gm PO BID 01/25/21 [History] Mirabegron [Myrbetriq] 25 mg PO DAILY 01/25/21 [History] Albuterol Inhaler [Ventolin Hfa Inhaler] 2 puff INHALATION RT-Q6H PRN 02/07/23 [History] Benzonatate [Tessalon Perle] 200 mg PO TID PRN 02/07/23 [History] Docusate [Colace] 200 mg PO BID 02/07/23 [History] Levothyroxine Sodium [Synthroid] 150 mcg PO DAILY 02/07/23 [History] Potassium Chloride [Klor-Con 8] 8 meq PO DAILY 02/07/23 [History] calcitrioL 1.5 mcg PO BID 02/07/23 [History] Ascorbic Acid [Vitamin C] 1,000 mg PO DAILY 10/17/23 [History] Bumetanide [BUMEX] 1 mg PO DAILY 10/17/23 [History] Calcium Acetate [PhosLo] 1,334 mg PO BID PRN 10/17/23 [History] Calcium Acetate [PhosLo] 2,004 mg PO AC-TID 10/17/23 [History] Ergocalciferol [Vitamin D2 (1250 Mcg = 83503 Iu)] 1,250 mcg PO MOWEFRSA 10/17/23 [History] Gabapentin [Neurontin] 300 mg PO BID 10/17/23 [History] Sevelamer [Renvela] 800 mg PO AC-TID 10/17/23 [History] Turmeric Root Extract [Turmeric] 500 mg PO DAILY 10/17/23 [History] metroNIDAZOLE [Flagyl] 250 mg PO DAILY 10/17/23 [History] Budesonide-Formot 160-4.5 Mcg [Symbicort 160-4.5 Mcg Inhaler] 2 puff INHALATION RT-BID #60 each 10/25/23 [Rx] Darbepoetin Mike [Aranesp] 40 mcg SQ Q7D #0 each 10/25/23 [Rx] Ipratropium-Albuterol Nebulize [Duoneb 0.5 mg-3 mg/3 ml Soln] 3 ml INHALATION RT-QID #120 each 10/25/23 [Rx] Cephalexin [Keflex] 500 mg PO BID 11/22/23 [History] Denosumab [Prolia] 60 mg SQ Q180D 11/22/23 [History] Midodrine HCl [ProAmatine] 10 mg PO TID PRN 11/22/23 [History] Follow up Appointment(s)/Referral(s): Alejandro Montanez DO [STAFF PHYSICIAN] - 1 Week (Please call and make follow up appointment we made several attempts to call office with no answer.) Bienvenido Hogue MD [Primary Care Provider] - 11/29/23 1:00 pm () Patient Instructions/Handouts: Acute Kidney Injury (DC) Discharge Disposition: HOME WITH HOME HEALTH SERVICES
[2023-11-29] MEDS ORDERED: DARBEPOETIN ALFA 40 MCG/0.4 ML SYRINGE SQ SCH (09:00)
== END 2023-11-24 10:52 | disposition home health service (06) ==
LOC: EC 17:02 → UNDOADMOB 19:09 → 5NMEDONC 19:09 → INTOOBSV 19:09 → 5NMEDONC 19:09 → UNDODISIN 11-24 10:52
PROVIDERS: ADMIT Internal Medicine Geriatric Medicine; ATTEND Internal Medicine Geriatric Medicine
DX: T82.41XA Breakdown (mechanical) of vascular dialysis catheter, initial encounter (principal); N17.9 Acute kidney failure, unspecified; I13.2 Hypertensive heart and chronic kidney disease with heart failure and with stage 5 chronic kidney disease, or end stage renal disease; N18.6 End stage renal disease; I50.30 Unspecified diastolic (congestive) heart failure; D63.1 Anemia in chronic kidney disease; S01.91XA Laceration without foreign body of unspecified part of head, initial encounter; W06.XXXA Fall from bed, initial encounter; Y92.230 Patient room in hospital as the place of occurrence of the external cause; Z99.2 Dependence on renal dialysis; E78.5 Hyperlipidemia, unspecified; J44.89 Other specified chronic obstructive pulmonary disease; K21.9 Gastro-esophageal reflux disease without esophagitis; E03.9 Hypothyroidism, unspecified; R29.6 Repeated falls; G62.9 Polyneuropathy, unspecified; F32.A Depression, unspecified; N39.490 Overflow incontinence; M89.8X9 Other specified disorders of bone, unspecified site; Z79.890 Hormone replacement therapy; Z79.2 Long term (current) use of antibiotics; Z79.620 Long term (current) use of immunosuppressive biologic; Z79.51 Long term (current) use of inhaled steroids; Z88.1 Allergy status to other antibiotic agents; Z88.5 Allergy status to narcotic agent; Z88.8 Allergy status to other drugs, medicaments and biological substances; Z91.048 Other nonmedicinal substance allergy status; Z87.01 Personal history of pneumonia (recurrent); Z91.81 History of falling
CPT/HCPCS: 99285; 93005; 83880; 80053 ×2; 83605; 83735 ×2; 84100 ×2; 84484; 85025 ×2; 85610; 85730; 81001; 71045; 72125; 70450; G0257; G0378 ×3; 90935

== ENCOUNTER → 2023-11-29 | Outpatient (CLI) | payer MEDICARE ==
[2023-11-29 14:24] LABS: African American GFR (CKD) 13 (>60 ml/min/1.73 sqM); Anion Gap 6 mmol/L; Blood Urea Nitrogen 60 mg/dL (7-17); Calcium 7.6 mg/dL (8.4-10.2); Carbon Dioxide 21 mmol/L (22-30); Chloride 111 mmol/L (98-107); Glucose 88 mg/dL (74-99); Non-African American GFR(CKD) 11 (>60 ml/min/1.73 sqM); Potassium 5.9 mmol/L (3.5-5.1); Sodium 138 mmol/L (137-145)
== END | disposition home or self-care (01) ==
LOC: LABWHC1 13:28
PROVIDERS: ATTEND Surgery
DX: N18.9 Chronic kidney disease, unspecified (principal)
CPT/HCPCS: 36415; 80048

== ENCOUNTER → 2024-01-05 | Outpatient (CLI) | payer MEDICARE | END | disposition home or self-care (01) | LOC: RADXRMAIN 20:00 | PROVIDERS: ATTEND Surgery | DX: Z53.9 Procedure and treatment not carried out, unspecified reason (principal) ==

== ENCOUNTER → 2024-01-05 | Day surgery (SDC) | payer MEDICARE ==
[2024-01-04 12:20] VITALS: BMI 23.3
[~2024-01-05] MED LIST changes: -DENOSUMAB 60 MG/ML 1 ML SYRINGE SQ NR; +HEPARIN SODIUM 1,000 UN/ML (10ML VL) ONE; +LIDOCAINE 1% INJ 10MG/ML (20 ML MDV) ONE; +fentaNYL (PF) 50 MCG/ML 2 ML AMP ONE
[2024-01-05] MEDS: IV FLUID CONTINUATION 1,000 ML IV ONE (13:00)
[2024-01-05] MEDS: EMPTY BAG 1 BAG with SODIUM CHLORIDE 0.9% 1,000 ML IV ONE (13:00)
[2024-01-05 13:16] VITALS: TEMP 97.9
[2024-01-05 13:40] LABS: African American GFR (CKD) 18 (>60 ml/min/1.73 sqM); Anion Gap 8 mmol/L; Blood Urea Nitrogen 56 mg/dL (7-17); Calcium 7.6 mg/dL (8.4-10.2); Carbon Dioxide 20 mmol/L (22-30); Chloride 110 mmol/L (98-107); Glucose 87 mg/dL (74-99); Non-African American GFR(CKD) 16 (>60 ml/min/1.73 sqM); Potassium 5.2 mmol/L (3.5-5.1); Sodium 138 mmol/L (137-145)
[2024-01-05] MEDS: MIDAZOLAM 2 MG/2 ML VIAL IVP ONE ×2 (14:01→14:03)
[2024-01-05] MEDS: LIDOCAINE 1% INJ 10MG/ML (20 ML MDV) SQ ONE (14:08)
[2024-01-05] MEDS: fentaNYL (PF) 50 MCG/ML 2 ML AMP IVP ONE (14:09)
[2024-01-05] MEDS: HEPARIN SODIUM 1,000 UN/ML (10ML VL) IVP ONE (14:27)
--- NOTE | 2024-01-05 14:49 | P.OP ---
Date of Procedure: 01/05/24 Preoperative Diagnosis: Malfunctioning tunneled catheter ESRD Postoperative Diagnosis: Same Procedure(s) Performed: Right tunneled catheter removal and replacement Conscious sedation x 31 minutes Anesthesia: local Surgeon: Alejandro Montanez Estimated Blood Loss (ml): 20 Pathology: none sent Condition: stable Disposition: PACU Indications for Procedure: 78-year-old female with history of end-stage renal disease on hemodialysis via a right-sided tunneled catheter presents to the hospital secondary to malfunctioning catheter and inability to run out full run at dialysis. She presents for removal and placement of tunnel catheter. Description of Procedure: Operative narrative: After written and informed consent was obtained and all risks, benefits and competitions were described the patient was brought to the Refrigeration Installer and laid in a supine position. The area of the right neck and existing catheter was prepped and draped in the usual sterile fashion. Timeout was performed in normal fashion and antibiotics were administered prior to access. Local anesthetic was infused overlying the tunnel catheter at the neck and small incision was created over the existing catheter and dissection was carried down to the catheter which was dissected free and grasped with a stat. Catheter was then cut and the proximal aspect was accessed with a Glidewire under direct visualization of fluoroscopy. Existing catheter was then removed. Large dilator was then placed under visualization and kept in place to prevent any bleeding. Attention was then placed to the chest wall catheter which was dissected free to the cuff and removed in normal fashion. A small incision was created on the lateral aspect of the chest wall at a different location from previous. A 19 centimeter palindrome hemodialysis catheter was then tunneled from the chest wall to the neck. Breakaway sheath was placed into the internal jugular vein under direct visualization of fluoroscopy. The catheter was then placed within the break away sheath the sheath was removed. The ports were assessed for patency and ameya and flushed easily and then were hep-locked. The catheter was then sutured in place, cleansed and dressings were placed. The patient tolerated procedure well.
[2024-01-05] MEDS: ACETAMINOPHEN TAB 500 MG TAB PO STA (16:09)
[2024-01-05 17:22] VITALS: BP 137/70; PULSE 72; RESP 16
--- NOTE | 2024-01-05 20:39 | XR ---
EXAMINATION TYPE: XR chest 1V portable DATE OF EXAM: 01/05/2024 Comparison: 11/23/2023 Clinical History: 78-year-old female with hemodialysis catheter placement Findings: Right-sided double-lumen hemodialysis catheter placement with tips at the right atrium. Heart normal size. Atherosclerotic arch calcifications. Interstitial prominence is similar. No consolidation or pl eural effusion. Surgical clips left upper quadrant as well as right upper quadrant. Impression: Chronic changes with interval replacement of a right-sided double-lumen catheter, tips in the upper r ight atrium.
--- NOTE | 2024-01-07 12:30 | IR ---
EXAMINATION TYPE: IR cvc insert central tunneled Intraoperative/procedural fluoroscopic services were provided. CLINICAL INDICATION:Female, 78 years old with history of hemodialysis catheter insertion. 2.1min fluo ro, 1.88Puns3; , [facility] Total fluoroscopy time is 2.1 min. DAP: 1.3 Gycm2 Please see the operative/procedural note for further details.
== END | disposition home or self-care (01) ==
LOC: CATHCVL 12:17
PROVIDERS: ATTEND Surgery
DX: T82.524A Displacement of infusion catheter, initial encounter (principal); N18.6 End stage renal disease
CPT/HCPCS: 36581; 77001; 80048; J2250; J0690; J2001; J3010; J1644

== ENCOUNTER → 2024-03-19 | Outpatient (CLI) | payer MEDICARE ==
--- NOTE | 2024-03-19 11:01 | CT ---
EXAMINATION TYPE: CT brain wo con CT DLP: 995.50 mGycm, Automated exposure control for dose reduction was used. DATE OF EXAM: 03/19/2024 10:55 AM COMPARISON: Prior CT Brain from 11/23/2023, 10/15/2022. CLINICAL INDICATION:Female, 78 years old with history of G44.85 PRIMARY STABBING HEADACHE, PRIMARY ST ABBING HEADACHE X FEW DAYS. PT STATES AT THIS TIME ESTEVES HAS RESOLVED TECHNIQUE: Brain: Multiple axial CT images of the brain were obtained without IV contrast. . Coronal and sagitta l reformats reviewed. FINDINGS: Brain: Extra-axial spaces: No abnormal extra-axial fluid collections. Ventricular system: Within normal limits Cerebral parenchyma: Age-appropriate cerebral volume loss. Most prominent involving the bilateral fro ntal lobes. No acute intraparenchymal hemorrhage or mass effect. The cleveland-white junction is well dif ferentiated. Scattered hypoattenuating areas are seen within the periventricular and subcortical whit e matter. Cerebellum: Unremarkable. Mass effect: No evidence of midline shift. Intracranial vasculature: Atherosclerotic calcifications of the intracranial vessels. Soft tissues: Normal. Calvarium/osseous structures: No depressed skull fracture. Paranasal sinuses and mastoid air cells: Clear. Aplasia of the left frontal sinus. Visualized orbits: Bilateral aphakia IMPRESSION: 1. No acute intracranial process. 2. Nonspecific white matter changes, likely secondary to chronic small vessel ischemic disease. [facility], , 03/19/2024 10:58 AM
== END | disposition home or self-care (01) ==
LOC: RADCTMAIN 10:23
PROVIDERS: ATTEND Internal Medicine Geriatric Medicine
CPT/HCPCS: 70450

== ENCOUNTER 2024-04-15 18:31 | Observation (INO) | payer MEDICARE ==
--- NOTE | 2024-04-15 18:52 | ED ---
General Adult HPI - General Chief complaint: Chest Pain Stated complaint: Chest pain Time Seen by Provider: 04/15/24 18:34 Source: patient, RN notes reviewed Mode of arrival: EMS Limitations: no limitations - History of Present Illness Initial comments: Patient is a 78-year-old female presenting to the emergency department with chest discomfort. Patient was sent over by dialysis. Patient had discomfort that lasted around 15 minutes and has resolved. Patient is currently symptom- free. No history of similar symptoms previously. Patient states that he was some tingling of her arm as well. No dyspnea, nausea, or diaphoresis. No history of cardiac disease - Related Data Home Medications Medication Instructions Recorded Confirmed FLUoxetine HCL [PROzac] 20 mg PO BID 08/23/18 01/05/24 Montelukast [Singulair] 10 mg PO HS 08/23/18 01/05/24 Omeprazole 40 mg PO AC-BID 11/19/18 01/04/24 Sodium Bicarbonate Tab 1,950 mg PO TID 07/22/19 01/05/24 traMADol HCL [Ultram] 50 mg PO Q8H PRN 07/22/19 01/04/24 Loratadine 10 mg PO DAILY 12/06/19 01/05/24 Magnesium Chloride [Mag64] 64 mg PO DAILY 12/06/19 01/05/24 Methenamine Hippurate 1 gm PO BID 01/25/21 01/05/24 Mirabegron [Myrbetriq] 25 mg PO DAILY 01/25/21 01/05/24 Albuterol Inhaler [Ventolin Hfa 2 puff INHALATION RT-Q6H PRN 02/07/23 01/04/24 Inhaler] Benzonatate [Tessalon Perle] 200 mg PO TID PRN 02/07/23 01/04/24 Levothyroxine Sodium [Synthroid] 150 mcg PO DAILY 02/07/23 01/05/24 calcitrioL 1.5 mcg PO MOWEFR 02/07/23 01/05/24 Ascorbic Acid [Vitamin C] 1,000 mg PO DAILY 10/17/23 01/04/24 Bumetanide [BUMEX] 1 mg PO DAILY 10/17/23 01/05/24 Calcium Acetate [PhosLo] 1,334 mg PO BID PRN 10/17/23 01/05/24 Calcium Acetate [PhosLo] 2,004 mg PO AC-TID 10/17/23 01/05/24 Ergocalciferol [Vitamin D2 (1250 1,250 mcg PO SUMOWEFR 10/17/23 01/04/24 Mcg = 38950 Iu)] Gabapentin [Neurontin] 300 mg PO BID 10/17/23 01/05/24 Sevelamer [Renvela] 800 mg PO AC-TID 10/17/23 01/04/24 Turmeric Root Extract [Turmeric] 500 mg PO DAILY 10/17/23 01/05/24 metroNIDAZOLE [Flagyl] 250 mg PO DAILY 10/17/23 01/05/24 Denosumab [Prolia] 60 mg SQ Q180D 11/22/23 01/04/24 Midodrine HCl [ProAmatine] 10 mg PO TID PRN 11/22/23 01/04/24 Ipratropium-Albuterol Nebulize 3 ml INHALATION RT-QID PRN 01/04/24 01/04/24 [Duoneb 0.5 mg-3 mg/3 ml Soln] Previous Rx's Medication Instructions Recorded Budesonide-Formot 160-4.5 Mcg 2 puff INHALATION RT-BID #60 each 10/25/23 [Symbicort 160-4.5 Mcg Inhaler] Darbepoetin Mike [Aranesp] 40 mcg SQ Q7D #0 each 10/25/23 Allergies Allergy/AdvReac Type Severity Reaction Status Date / Time adhesive tape Allergy Rash/Hives Verified 01/04/24 12:00 Sulfa (Sulfonamide Allergy Itching Verified 01/04/24 12:00 Antibiotics) codeine AdvReac Nausea Verified 01/04/24 12:00 tetracycline AdvReac Nausea & Verified 01/04/24 12:00 Vomiting Review of Systems ROS Statement: Those systems with pertinent positive or pertinent negative responses have been documented in the HPI. ROS Other: All systems not noted in ROS Statement are negative. Constitutional: Denies: fever Eyes: Denies: eye pain ENT: Denies: ear pain Respiratory: Denies: cough, dyspnea Cardiovascular: Reports: chest pain Endocrine: Denies: fatigue Gastrointestinal: Denies: abdominal pain Musculoskeletal: Denies: back pain Past Medical History Past Medical History: Asthma, Cancer, COPD, Osteoarthritis (OA), Renal Disease, Thyroid Disorder Additional Past Medical History / Comment(s): hemodialysis MOWEFR 3 1/2 hours,dialysis cath rt chest, kidney stones and UTI, hx lymphedema, hx pulmonary fibrosis, hx graves,hx rt foot torn ligaments, hx osteoporosis,hypotension, has O2 available at home but has not needed in 6months; vitamin D deficiency, hypocalcemia,. SKIN CANCER REMOVED FROM BRIDGE OF NOSE., PMR - polymyalgia rhematalia History of Any Multi-Drug Resistant Organisms: CRE Date of last positivie culture/infection: 10/16/18 MDRO-CRE PER [facility] NOT [facility] MDRO Source:: Urine Past Surgical History: Bariatric Surgery Additional Past Surgical History / Comment(s): hx bariatric surgery-Kye En Y,lung biopsy,radioactive iodine-tx thyroid,rectal and bladder suspensions,vaginal surgery as a child,partha carpel tunnel,rt knee meniscus repair,D&C x3, left arm fistula 02/08/19 (not working), left broken wrist, broken right wrist Past Anesthesia/Blood Transfusion Reactions: Previous Problems w/ Anesthesia, Postoperative Nausea & Vomiting (PONV) Additional Past Anesthesia/Blood Transfusion Reaction / Comment(s): decrease bp with anesthesia,no problems with prior blood transfusion Past Psychological History: No Psychological Hx Reported Smoking Status: Never smoker - Past Family History Father Family Medical History: Pulmonary Embolus Additional Family Medical History / Comment(s): . Mother Family Medical History: Cancer Additional Family Medical History / Comment(s): . Sister(s) Family Medical History: Cancer Additional Family Medical History / Comment(s): . Daughter(s) Additional Family Medical History / Comment(s): lymphedema in legs Brother(s) Family Medical History: Cancer Additional Family Medical History / Comment(s): skin cancer General Exam Limitations: no limitations General appearance: alert, in no apparent distress Head exam: Present: normocephalic Eye exam: Present: normal appearance Neck exam: Present: normal inspection Respiratory exam: Present: normal lung sounds bilaterally. Absent: chest wall tenderness Cardiovascular Exam: Present: regular rate, normal rhythm Expanded Peripheral pulses: 2+: Radial (R) (Dialysis graft on the left), Dorsalis Pedis (R), Dorsalis Pedis (L) GI/Abdominal exam: Present: soft. Absent: tenderness Extremities exam: Present: pedal edema (Patient states chronic). Absent: calf tenderness Neurological exam: Present: alert Psychiatric exam: Present: normal affect, normal mood Skin exam: Present: normal color Course Vital Signs 04/15/24 18:39 Temperature 97.8 F Pulse Rate 72 Respiratory 16 Rate Blood Pressure 154/87 O2 Sat by Pulse 96 Oximetry EKG Findings - EKG Results: EKG: interpreted by ERMD (Nonspecific ST-T), sinus rhythm, normal axis, normal QRS Medical Decision Making - Medical Decision Making MDM back was pt. sent in by a medical professional or institution (, PA, DUCT CLEANER, urgent care, hospital, or skilled nursing...) When possible be specific @ -Patient was sent in by dialysis Did you speak to anyone other than the patient for history (EMS, parent, family, police, friend...)? What history was obtained from this source @ -No Did you review nursing and triage notes (agree or disagree)? Why? @ -I reviewed and agree with nursing and triage notes Were old charts reviewed (outside hosp., previous admission, EMS record, old EKG, old radiological studies, urgent care reports/EKG's, skilled nursing records)? Report findings @ -Paperwork reviewed from dialysis Differential Diagnosis (chest pain, altered mental status, abdominal pain women, abdominal pain men, vaginal bleeding, weakness, fever, dyspnea, syncope, headache, dizziness, GI bleed, back pain, seizure, CVA, palpatations, mental health, musculoskeletal)? @ -Differential Chest Pain: Stable Angina, Unstable Angina, STEMI, NSTEMI Aortic Dissection, Pneumothorax, Musculoskeletal, Esophageal Spasm GERD, Cholecystitis, Pancreatitis, Zoster, this is not meant to be an all-inclusive list. EKG interpreted by me (3pts min.). @ -As above X-rays interpreted by me (1pt min.). @ -Chest x-ray shows no acute process CT interpreted by me (1pt min.). @ -None done U/S interpreted by me (1pt. min.). @ -None done What testing was considered but not performed or refused? (CT, X-rays, U/S, labs)? Why? @ -None What meds were considered but not given or refused? Why? @ -None Did you discuss the management of the patient with other professionals (professionals i.e. , PA, DUCT CLEANER, lab, RT, psych nurse, director of social work, locker room clerk, teacher, electoral officer, caseworker)? Give summary @ -Case discussed with practitioner Isatu Jacinto who will admit covering Dr. Mayer Was smoking cessation discussed for >3mins.? @ -No Was critical care preformed (if so, how long)? @ -No Were there social determinants of health that impacted care today? How? (Homelessness, low income, unemployed, alcoholism, drug addiction, transportation, low edu. Level, literacy, decrease access to med. care, penitentiary, rehab)? @ -No Was there de-escalation of care discussed even if they declined (Discuss DNR or withdrawal of care, Hospice)? DNR status @ -No What co-morbidities impacted this encounter? (DM, HTN, Smoking, COPD, CAD, Cancer, CVA, ARF, Chemo, Hep., AIDS, mental health diagnosis, sleep apnea, morbid obesity)? @ -End-stage renal disease on hemodialysis Was patient admitted / discharged? Hospital course, mention meds given and route, prescriptions, significant lab abnormalities, going to OR and other pertinent info. @ -Patient presents with chest discomfort. Initial evaluation unremarkable. Patient will be admitted with cardiac consult, admission orders placed. Patient reevaluated. Patient and family updated Undiagnosed new problem with uncertain prognosis? @ -No Drug Therapy requiring intensive monitoring for toxicity (Heparin, Nitro, Insulin, Cardizem)? @ -No Were any procedures done? @ -No Diagnosis/symptom? @ -Chest pain Acute, or Chronic, or Acute on Chronic? @ -Acute Uncomplicated (without systemic symptoms) or Complicated (systemic symptoms)? @ -Default Side effects of treatment? @ -No Exacerbation, Progression, or Severe Exacerbation? @ -No Poses a threat to life or bodily function? How? (Chest pain, [place], [place], pneumonia, PE, COPD, DKA, ARF, appy, cholecystitis, CVA, Diverticulitis, Homicidal, Suicidal, threat to staff... and all critical care pts) @ -T threat to cardiac function - Lab Data Result diagrams: 04/15/24 19:09 04/15/24 19:09 Lab Results 04/15/24 04/15/24 04/15/24 Range/Units 19:09 19: 19:09 WBC 7.7 (3.8-10.6) k/uL RBC 3.78 L (3.80-5.40) m/uL Hgb 12.2 (11.4-16.0) gm/dL Hct 39.3 (34.0-46.0) % MCV 104.1 H (80.0-100.0) fL MCH 32.3 (25.0-35.0) pg MCHC 31.1 (31.0-37.0) g/dL RDW 14.2 (11.5-15.5) % Plt Count 202 (150-450) k/uL MPV 7.3 Neutrophils % 63 % Lymphocytes % 20 % Monocytes % 11 % Eosinophils % 3 % Basophils % 1 % Neutrophils # 4.9 (1.3-7.7) k/uL Lymphocytes # 1.6 (1.0-4.8) k/uL Monocytes # 0.8 (0-1.0) k/uL Eosinophils # 0.2 (0-0.7) k/uL Basophils # 0.1 (0-0.2) k/uL Hypochromasia Slight Macrocytosis Slight PT 9.8 L (10.0-12.5) sec INR 0.9 (<1.2) APTT 32.7 H (22.0-30.0) sec Sodium 137 (137-145) mmol/L Potassium 3.6 (3.5-5.1) mmol/L Chloride 104 (98-107) mmol/L Carbon Dioxide 24 (22-30) mmol/L Anion Gap 9 mmol/L BUN 33 H (7-17) mg/dL Creatinine 1.43 H (0.52-1.04) mg/dL Est GFR (CKD-EPI)AfAm 40 (>60 ml/min/1.73 sqM) Est GFR (CKD-EPI)NonAf 35 (>60 ml/min/1.73 sqM) Glucose 94 (74-99) mg/dL Calcium 8.0 L (8.4-10.2) mg/dL Magnesium 1.9 (1.6-2.3) mg/dL Total Bilirubin 0.8 (0.2-1.3) mg/dL AST 35 (14-36) U/L ALT 24 (4-34) U/L Alkaline Phosphatase 58 (38-126) U/L Troponin I (0.000-0.034) ng/mL Total Protein 7.0 (6.3-8.2) g/dL Albumin 4.3 (3.5-5.0) g/dL 04/15/24 Range/Units 19:09 WBC (3.8-10.6) k/uL RBC (3.80-5.40) m/uL Hgb (11.4-16.0) gm/dL Hct (34.0-46.0) % MCV (80.0-100.0) fL MCH (25.0-35.0) pg MCHC (31.0-37.0) g/dL RDW (11.5-15.5) % Plt Count (150-450) k/uL MPV Neutrophils % % Lymphocytes % % Monocytes % % Eosinophils % % Basophils % % Neutrophils # (1.3-7.7) k/uL Lymphocytes # (1.0-4.8) k/uL Monocytes # (0-1.0) k/uL Eosinophils # (0-0.7) k/uL Basophils # (0-0.2) k/uL Hypochromasia Macrocytosis PT (10.0-12.5) sec INR (<1.2) APTT (22.0-30.0) sec Sodium (137-145) mmol/L Potassium (3.5-5.1) mmol/L Chloride (98-107) mmol/L Carbon Dioxide (22-30) mmol/L Anion Gap mmol/L BUN (7-17) mg/dL Creatinine (0.52-1.04) mg/dL Est GFR (CKD-EPI)AfAm (>60 ml/min/1.73 sqM) Est GFR (CKD-EPI)NonAf (>60 ml/min/1.73 sqM) Glucose (74-99) mg/dL Calcium (8.4-10.2) mg/dL Magnesium (1.6-2.3) mg/dL Total Bilirubin (0.2-1.3) mg/dL AST (14-36) U/L ALT (4-34) U/L Alkaline Phosphatase (38-126) U/L Troponin I <0.012 (0.000-0.034) ng/mL Total Protein (6.3-8.2) g/dL Albumin (3.5-5.0) g/dL Disposition Clinical Impression: Chest pain Disposition: ADMITTED IP TO THIS HOSP Is patient prescribed a controlled substance at d/c from ED?: No Referrals: Bienvenido Hogue MD [Primary Care Provider] - 1-2 days Time of Disposition: 20:03
[2024-04-15] MEDS: ASPIRIN 81 MG PO STA (18:56)
[2024-04-15 19:21] LABS: Basophils # (A) 0.1 k/uL (0-0.2); Basophils % (A) 1 %; Eosinophils # (A) 0.2 k/uL (0-0.7); Eosinophils % (A) 3 %; HCT 39.3 % (34.0-46.0); HGB 12.2 gm/dL (11.4-16.0); Hypochromasia Slight; Lymphocytes # (A) 1.6 k/uL (1.0-4.8); Lymphocytes % (A) 20 %; MCH 32.3 pg (25.0-35.0); MCHC 31.1 g/dL (31.0-37.0); MCV 104.1 fL (80.0-100.0); Macrocytosis Slight; Mean Platelet Volume 7.3; Monocytes # (A) 0.8 k/uL (0-1.0); Monocytes % (A) 11 %; Neutrophils # (A) 4.9 k/uL (1.3-7.7); Neutrophils % (A) 63 %; Platelet Count 202 k/uL (150-450); RBC 3.78 m/uL (3.80-5.40); RDW 14.2 % (11.5-15.5); WBC 7.7 k/uL (3.8-10.6)
[2024-04-15 19:34] LABS: ALT 24 U/L (4-34); AST 35 U/L (14-36); African American GFR (CKD) 40 (>60 ml/min/1.73 sqM); Albumin 4.3 g/dL (3.5-5.0); Alkaline Phosphatase 58 U/L (38-126); Anion Gap 9 mmol/L; Blood Urea Nitrogen 33 mg/dL (7-17); Carbon Dioxide 24 mmol/L (22-30); Chloride 104 mmol/L (98-107); Glucose 94 mg/dL (74-99); INR 0.9 (<1.2); Magnesium 1.9 mg/dL (1.6-2.3); Non-African American GFR(CKD) 35 (>60 ml/min/1.73 sqM); Partial Thromboplastin Time 32.7 sec (22.0-30.0); Prothrombin Time 9.8 sec (10.0-12.5); Sodium 137 mmol/L (137-145); Total Bilirubin 0.8 mg/dL (0.2-1.3)
[2024-04-15 19:40] LABS: Potassium 3.6 mmol/L (3.5-5.1)
--- NOTE | 2024-04-15 20:53 | XR ---
EXAMINATION TYPE: XR chest 2V DATE OF EXAM: 04/15/2024 7:44 PM COMPARISON: 824 CLINICAL INDICATION: Female, 78 years old with history of Chest Pain, TECHNIQUE: XR chest 2V view(s) obtained. FINDINGS: The heart size is normal. The pulmonary vasculature is normal. The lungs are clear. Double-lumen catheter is present on the right with tips in the proximal right a trium superior vena cava junction IMPRESSION: 1. No acute pulmonary process. [facility], , 04/15/2024 8:50 PM
--- NOTE | 2024-04-16 08:04 | P.CRDCN ---
History of Present Illness Consult date: 04/16/24 Consult reason: chest pain History of present illness: This is a 78-year-old female patient of Dr. Price with past medical history of end-stage renal disease on hemodialysis, valvular heart disease. Patient complains of sharp midsternal chest pain as well as right arm numbness. She was at dialysis with onset. She states it lasted about 5 minutes. She denies any shortness of breath no palpitations. She does have some dizziness when he gets up but this is not new for her. The chest pain has not returned. Patient is seen today in the emergency center waiting for a bed on the observation unit. Blood pressure 114/71, heart rate 78, pulse ox 97% on room air. Patient is status post full-strength aspirin and nitroglycerin. EKG: Sinus rhythm with no acute ST-T wave changes Chest x-ray: No acute process Laboratory studies: Troponin negative x 3. Potassium 3.6, BUN 33 creatinine 1.43. WBC 7.7, hemoglobin 12.2. Home cardiac medications: Bumex 1 mg daily Echocardiogram performed 10/18/2023 revealed normal left ventricular size and s ystolic function. Trace to mild MR and tricuspid regurgitation. Lexiscan Cardiolite stress test performed in the office on 12/27/2023 revealed small distal anterior ischemia. Review Of Systems: At the time of my exam: CONSTITUTIONAL: Denies fever or chills. HEENT: Denies blurred vision, vision changes, or eye pain. Denies hemoptysis CARDIOVASCULAR: Denies chest pain. Denies orthopnea. Denies PND. Denies palpitations RESPIRATORY: Denies shortness of breath. GASTROINTESTINAL: Denies abdominal pain. Denies nausea or vomiting. HEMATOLOGIC: Denies bleeding disorders. GENITOURINARY: Denies any blood in urine. SKIN: Denies puritis. Denies rash. Physical examination: Gen: This is a 78-year-old female in no acute distress VS: reviewed HEENT: Head is atraumatic, normocephalic. Pupils equal, round. Sclerae is anicteric. NECK: Supple. No JVD. LUNGS: Clear to auscultation. No wheezes or rhonchi. No intercostal retractions. HEART: Regular rate and rhythm. Soft systolic murmur. ABDOMEN: Soft No tenderness. EXTREMITIES: No pedal edema. No calf tenderness. NEUROLOGICAL: Patient is awake, alert and oriented x3. Assessment: Atypical chest pain, acute coronary syndrome ruled out with negative troponins and negative EKG Abnormal Lexiscan stress test performed 12/27/2023 with small distal anterior ischemia End-stage renal disease on hemodialysis Valvular heart disease with trace to mild MR and TR Plan: Resume patient's home cardiac medications Obtain stat D-dimer If D-dimer is negative plan for left heart catheterization today with Dr. Price N.p.o. status Further recommendations to follow based upon clinical course Thank you kindly for this consultation. Nurse practitioner note has been reviewed, I agree with documented findings and plan of care. Patient was seen and examined. Past Medical History Past Medical History: Asthma, Cancer, COPD, Osteoarthritis (OA), Renal Disease, Thyroid Disorder Additional Past Medical History / Comment(s): hemodialysis MOWEFR 3 1/2 hours,dialysis cath rt chest, kidney stones and UTI, hx lymphedema, hx pulmonary fibrosis, hx graves,hx rt foot torn ligaments, hx osteoporosis,hypotension, has O2 available at home but has not needed in 6months; vitamin D deficiency, hypoca lcemia,. SKIN CANCER REMOVED FROM BRIDGE OF NOSE., PMR - polymyalgia rhematalia History of Any Multi-Drug Resistant Organisms: CRE Date of last positivie culture/infection: 10/16/18 MDRO-CRE PER [facility] NOT [facility] MDRO Source:: Urine Past Surgical History: Bariatric Surgery Additional Past Surgical History / Comment(s): hx bariatric surgery-Kye En Y,lung biopsy,radioactive iodine-tx thyroid,rectal and bladder suspensions,vaginal surgery as a child,partha carpel tunnel,rt knee meniscus repair,D&C x3, left arm fistula 02/08/19 (not working), left broken wrist, broken right wrist Past Anesthesia/Blood Transfusion Reactions: Previous Problems w/ Anesthesia, Postoperative Nausea & Vomiting (PONV) Additional Past Anesthesia/Blood Transfusion Reaction / Comment(s): decrease bp with anesthesia,no problems with prior blood transfusion Past Psychological History: No Psychological Hx Reported Smoking Status: Never smoker - Past Family History Father Family Medical History: Pulmonary Embolus Additional Family Medical History / Comment(s): . Mother Family Medical History: Cancer Additional Family Medical History / Comment(s): . Sister(s) Family Medical History: Cancer Additional Family Medical History / Comment(s): . Daughter(s) Additional Family Medical History / Comment(s): lymphedema in legs Brother(s) Family Medical History: Cancer Additional Family Medical History / Comment(s): skin cancer Medications and Allergies Home Medications Medication Instructions Recorded Confirmed Type FLUoxetine HCL [PROzac] 20 mg PO BID 08/23/18 04/15/24 History Montelukast [Singulair] 10 mg PO HS 08/23/18 04/15/24 History Omeprazole 40 mg PO AC-BID 11/19/18 04/15/24 History Sodium Bicarbonate Tab 1,950 mg PO W/SUPPER 07/22/19 04/15/24 History Loratadine 10 mg PO DAILY 12/06/19 04/15/24 History Methenamine Hippurate 1 gm PO BID 01/25/21 04/15/24 History Mirabegron [Myrbetriq] 25 mg PO DAILY 01/25/21 04/15/24 History Albuterol Inhaler [Ventolin Hfa 2 puff INHALATION RT-Q6H PRN 02/07/23 04/15/24 History Inhaler] calcitrioL 2 mcg PO MOWEFR 02/07/23 04/15/24 History Bumetanide [BUMEX] 1 mg PO DAILY 10/17/23 04/15/24 History Ergocalciferol [Vitamin D2 (1250 1,250 mcg PO SUTUTHSA 10/17/23 04/15/24 History Mcg = 46459 Iu)] Gabapentin [Neurontin] 300 mg PO BID 10/17/23 04/15/24 History metroNIDAZOLE [Flagyl] 250 mg PO DAILY 10/17/23 04/15/24 History Ipratropium-Albuterol Nebulize 3 ml INHALATION RT-QID PRN 01/04/24 04/15/24 History [Duoneb 0.5 mg-3 mg/3 ml Soln] Calcium Acetate 668mg (169mg 2,004 mg PO TID-W/MEALS 04/15/24 04/15/24 History Calcium) Tab Calcium Acetate 668mg (169mg 668 mg PO DAILY PRN 04/15/24 04/15/24 History Calcium) Tab Cephalexin [Keflex] 500 mg PO DAILY 04/15/24 04/15/24 History Sodium Bicarbonate Tab 1,300 mg PO BID-W/MEALS 04/15/24 04/15/24 History Allergies Allergy/AdvReac Type Severity Reaction Status Date / Time adhesive tape Allergy Rash/Hives Verified 04/15/24 20:01 Sulfa (Sulfonamide Allergy Itching Verified 04/15/24 20:01 Antibiotics) codeine AdvReac Nausea Verified 04/15/24 20:01 tetracycline AdvReac Nausea & Verified 04/15/24 20:01 Vomiting Physical Exam Vitals: Vital Signs Temp Pulse Resp BP Pulse Ox 04/16/24 04:21 78 16 114/71 97 04/16/24 02:00 75 18 04/15/24 21:41 77 16 109/72 95 04/15/24 18:39 97.8 F 72 16 154/87 96 Intake and Output 04/15/24 04/16/24 04/16/24 22:59 06:59 14:59 Other: Weight 59.6 kg Results 04/15/24 19:09 04/15/24 19:09 Cardiac Enzymes 04/15/24 04/15/24 04/15/24 Range/Units 19:09 19:09 22:41 AST 35 (14-36) U/L Troponin I <0.012 <0.012 (0.000-0.034) ng/mL 04/16/24 Range/Units 01:24 AST (14-36) U/L Troponin I <0.012 (0.000-0.034) ng/mL Coagulation 04/15/24 Range/Units 19:09 PT 9.8 L (10.0-12.5) sec APTT 32.7 H (22.0-30.0) sec CBC 04/15/24 Range/Units 19:09 WBC 7.7 (3.8-10.6) k/uL RBC 3.78 L (3.80-5.40) m/uL Hgb 12.2 (11.4-16.0) gm/dL Hct 39.3 (34.0-46.0) % Plt Count 202 (150-450) k/uL Comprehensive Metabolic Panel 04/15/24 Range/Units 19:09 Sodium 137 (137-145) mmol/L Potassium 3.6 (3.5-5.1) mmol/L Chloride 104 (98-107) mmol/L Carbon Dioxide 24 (22-30) mmol/L BUN 33 H (7-17) mg/dL Creatinine 1.43 H (0.52-1.04) mg/dL Glucose 94 (74-99) mg/dL Calcium 8.0 L (8.4-10.2) mg/dL AST 35 (14-36) U/L ALT 24 (4-34) U/L Alkaline Phosphatase 58 (38-126) U/L Total Protein 7.0 (6.3-8.2) g/dL Albumin 4.3 (3.5-5.0) g/dL Current Medications Generic Name Dose Route Start Last Admin Trade Name Freq PRN Reason Stop Dose Admin Aspirin 325 mg 04/16/24 09:00 Aspirin 325 Mg Tab PO DAILY CHANEL Nitroglycerin 0.4 mg 04/15/24 20:03 Nitroglycerin Sl Tabs 0.4 Mg Tab SUBLINGUAL Q5M PRN Chest Pain Intake and Output 04/15/24 04/16/24 04/16/24 22:59 06:59 14:59 Other: Weight 59.6 kg 04/15/24 19:09 04/15/24 19:09
[2024-04-16 09:27] LABS: Chol/HDL Ratio 1.62 Ratio; LDL Cholesterol,Calculated 31.7 mg/dL (0.0-131.0); VLDL Calculation 17.88 mg/dL (5.00-40.00)
[2024-04-16] MEDS: BUMETANIDE 1 MG TAB PO SCH (09:40)
[2024-04-16] MEDS: ASPIRIN 325 MG TAB PO SCH (09:40)
--- NOTE | 2024-04-16 12:23 | P.NPCON ---
History of Present Illness - Reason for Consult end stage renal disease - History of Present Illness patient is a 78-year-old female with end-stage renal disease on hemodialysis on Monday schedule via right IJ permacath. Patient was restarted on hemodialysis in November 2023. She has had good urine output. The dialysis catheter has been functioning poorly for last 2 treatments and patient was scheduled to see Dr. Montanez today. She is admitted to the hospital with complaints of chest pain and right arm numbness. Troponin is not elevated. Serum creatinine noted to be 1.4. Patient was dialyzed yesterday but had poor flows. Past Medical History Past Medical History: Asthma, Cancer, COPD, Osteoarthritis (OA), Renal Disease, Thyroid Disorder Additional Past Medical History / Comment(s): hemodialysis MOWEFR 3 1/2 hour s,dialysis cath rt chest, kidney stones and UTI, hx lymphedema, hx pulmonary fibrosis, hx graves,hx rt foot torn ligaments, hx osteoporosis,hypotension, has O2 available at home but has not needed in 6months; vitamin D deficiency, hypocalcemia,. SKIN CANCER REMOVED FROM BRIDGE OF NOSE., PMR - polymyalgia rhematalia History of Any Multi-Drug Resistant Organisms: CRE Date of last positivie culture/infection: 10/16/18 MDRO-CRE PER [facility] NOT [facility] MDRO Source:: Urine Past Surgical History: Bariatric Surgery Additional Past Surgical History / Comment(s): hx bariatric surgery-Kye En Y,lung biopsy,radioactive iodine-tx thyroid,rectal and bladder suspensions,vaginal surgery as a child,partha carpel tunnel,rt knee meniscus repair,D&C x3, left arm fistula 02/08/19 (not working), left broken wrist, broken right wrist Past Anesthesia/Blood Transfusion Reactions: Previous Problems w/ Anesthesia, Postoperative Nausea & Vomiting (PONV) Additional Past Anesthesia/Blood Transfusion Reaction / Comment(s): decrease bp with anesthesia,no problems with prior blood transfusion Past Psychological History: No Psychological Hx Reported Smoking Status: Never smoker - Past Family History Father Family Medical History: Pulmonary Embolus Additional Family Medical History / Comment(s): . Mother Family Medical History: Cancer Additional Family Medical History / Comment(s): . Sister(s) Family Medical History: Cancer Additional Family Medical History / Comment(s): . Daughter(s) Additional Family Medical History / Comment(s): lymphedema in legs Brother(s) Family Medical History: Cancer Additional Family Medical History / Comment(s): skin cancer Medications and Allergies Home Medications Medication Instructions Recorded Confirmed Type FLUoxetine HCL [PROzac] 20 mg PO BID 08/23/18 04/15/24 History Montelukast [Singulair] 10 mg PO HS 08/23/18 04/15/24 History Omeprazole 40 mg PO AC-BID 11/19/18 04/15/24 History Sodium Bicarbonate Tab 1,950 mg PO W/SUPPER 07/22/19 04/15/24 History Loratadine 10 mg PO DAILY 12/06/19 04/15/24 History Methenamine Hippurate 1 gm PO BID 01/25/21 04/15/24 History Mirabegron [Myrbetriq] 25 mg PO DAILY 01/25/21 04/15/24 History Albuterol Inhaler [Ventolin Hfa 2 puff INHALATION RT-Q6H PRN 02/07/23 04/15/24 History Inhaler] calcitrioL 2 mcg PO MOWEFR 02/07/23 04/15/24 History Bumetanide [BUMEX] 1 mg PO DAILY 10/17/23 04/15/24 History Ergocalciferol [Vitamin D2 (1250 1,250 mcg PO SUTUTHSA 10/17/23 04/15/24 History Mcg = 23892 Iu)] Gabapentin [Neurontin] 300 mg PO BID 10/17/23 04/15/24 History metroNIDAZOLE [Flagyl] 250 mg PO DAILY 10/17/23 04/15/24 History Ipratropium-Albuterol Nebulize 3 ml INHALATION RT-QID PRN 01/04/24 04/15/24 History [Duoneb 0.5 mg-3 mg/3 ml Soln] Calcium Acetate 668mg (169mg 2,004 mg PO TID-W/MEALS 04/15/24 04/15/24 History Calcium) Tab Calcium Acetate 668mg (169mg 668 mg PO DAILY PRN 04/15/24 04/15/24 History Calcium) Tab Cephalexin [Keflex] 500 mg PO DAILY 04/15/24 04/15/24 History Sodium Bicarbonate Tab 1,300 mg PO BID-W/MEALS 04/15/24 04/15/24 History Allergies Allergy/AdvReac Type Severity Reaction Status Date / Time adhesive tape Allergy Rash/Hives Verified 04/15/24 20:01 Sulfa (Sulfonamide Allergy Itching Verified 04/15/24 20:01 Antibiotics) codeine AdvReac Nausea Verified 04/15/24 20:01 tetracycline AdvReac Nausea & Verified 04/15/24 20:01 Vomiting Physical Exam Vitals: Vital Signs Temp Pulse Pulse Resp BP Pulse Ox 04/16/24 12:00 72 16 108/71 94 L 04/16/24 08:00 74 16 04/16/24 07:00 74 16 106/63 98 04/16/24 04:21 78 16 114/71 97 04/16/24 02:00 75 18 04/15/24 21:41 77 16 109/72 95 04/15/24 18:39 97.8 F 72 16 154/87 96 Intake and Output 04/15/24 04/16/24 04/16/24 22:59 06:59 14:59 Other: Voiding Method Toilet Weight 59.6 kg on examination patient is comfortable awake alert oriented 3 Examination of the heart S1 and S2 Examination of the lungs bilateral breath sounds are heard Abdomen is soft nontender Examination of lower extremities shows edema chronic 1+ bilaterally Anus exam grossly intact Results - Lab Results Most recent lab results Calcium 8.0 mg/dL (8.4-10.2) L 04/15/24 19:09 Magnesium 1.9 mg/dL (1.6-2.3) 04/15/24 19:09 04/15/24 19:09 04/15/24 19:09 Assessment and Plan Assessment: 1. End-stage renal disease, maintained on hemodialysis on Monday schedule. Patient was recently restarted on dialysis in November 2023. She has good urine output. Right IJ permacath has had poor flows as outpatient and patient was scheduled to see Dr. Montanez today. 2. Chest pain being followed by cardiology 3. CK D mineral bone disorder Plan: check labs in a.m. Consult vascular surgery, Dr. Montanez as patient has had poor flows of around 250 as outpatient
--- NOTE | 2024-04-16 15:52 | NM ---
EXAMINATION TYPE: NM pul vent and perfuse DATE OF EXAM: 04/16/2024 CLINICAL INDICATION: Female, 78 years old with history of elevated ddimer; COMPARISON: Previous study dated 01/25/2021. TECHNIQUE: Utilizing inhalation of 38.5 mCi Tc 99m DTPA aerosol and intravenous injection of 5.21 mC i of Tc 99m MAA, ventilation and perfusion images are acquired post injection in multiple projections . FINDINGS: Normal radiotracer distribution is noted in the lungs. There is no evidence of mismatched defects. IMPRESSION: No convincing scintigraphic evidence of acute pulmonary embolism. Low probability. [facility], Workstation: [facility], 04/16/2024 3:50 PM
[2024-04-16] MEDS ORDERED: IPRATROPIUM-ALBUTEROL 3 ML NEB INHALATION PRN (16:01)
[2024-04-16] MEDS ORDERED: NON FORMULARY DRUG (Albuterol Inhaler 90 MCG Puff) INHALATION PRN (16:01)
--- NOTE | 2024-04-16 16:05 | P.HPIM ---
History of Present Illness H&P Date: 04/16/24 History of present illness: This is a 78-year-old female with past medical history significant for end-stage renal disease on hemodialysis 3 times weekly, still make urine, history of valvular heart disease, history of COPD who presented to ER with a complaint of sharp midsternal chest pain as well as right arm numbness while patient was receiving dialysis, it lasted about 5 minutes. Patient denied any nausea, shortness of breath, blurred vision, or diaphoresis,. Patient reported some dizziness with ambulation. Chest pain remained resolved. Patient denied any fever, chills, headache, nausea vomiting diarrhea constipation abdominal pain dysuria urgency frequency weakness of upper or lower extremities. Patient afebrile, heart rate 72, respiratory rate 16, blood pressure 108/71, saturating 94% on room air. WBC 7.7, hemoglobin 12.2, platelets 202. INR 0.9. Sodium 137, potassium 3.6, BUN 33, creatinine 1.43. Troponin negative x 3. EKG showed sinus rhythm with no acute ST/T wave changes. Chest x-ray negative for any acute process. Echocardiogram in October 2023 showed normal LV systolic function, mild MR and TR. Stress test in December 2023 showed small distal anterior ischemia. REVIEW OF SYSTEMS: CONSTITUTIONAL: No fever, no malaise, no fatigue. HEENT: No recent visual problems or hearing problems. Denied any sore throat. CARDIOVASCULAR: No chest pain, orthopnea, PND, no palpitations, no syncope. PULMONARY: No shortness of breath, no cough, no hemoptysis. GASTROINTESTINAL: No diarrhea, no nausea, no vomiting, no abdominal pain. NEUROLOGICAL: No headaches, no weakness, no numbness. HEMATOLOGICAL: Denies any bleeding or petechiae. GENITOURINARY: Denies any burning micturition, frequency, or urgency. MUSCULOSKELETAL/RHEUMATOLOGICAL: Denies any joint pain, swelling, or any muscle pain. ENDOCRINE: Denies any polyuria or polydipsia. The rest of the 14-point review of systems is negative. PHYSICAL EXAMINATION: GENERAL: The patient is A&O x3, NAD HEENT: EOMI, Sclerae anicteric, Moist Mucous membranes Neck: Supple, Non tender, No JVD PULMONARY: Equal breath souds B/L, No wheezing, No crackles. CARDIOVASCULAR: S1, S2 present. No murmurs, rubs, or gallops. ABDOMEN: Soft, nontender, nondistended, normoactive bowel sounds. No guarding or rebound tenderness. MUSCULOSKELETAL: No edema, No cyanosis. No clubbing. Normal ROM. Intact peripheral pulses. NEUROLOGICAL: CN 2-12 grossly intact. No FND Assessment and plan: Chest pain: Presented with chest pain during hemodialysis, now resolved. Abnormal Lexiscan stress test in December 2023 with small distal anterior ischemia Troponin negative, EKG negative for acute changes. Recent echo showed valvular heart disease with normal EF. D-dimer elevated1.32, VQ scan ordered. Cardiology consulted. End-stage renal disease on hemodialysis: On hemodialysis Monday Still makes urine, restarted on dialysis November 2023, good urine output Concern for poor blood flow through right IJ permacath, vascular surgery consulted Nephrology consulted DVT prophylaxis Subcutaneous heparin n Monitor vital signs and labs Labs and medication were reviewed. Continue same treatment. Further recommendations as per clinical course of the patient Dictation was produced using [employer] dictation software. please excuse any grammatical, word or spelling errors. Past Medical History Past Medical History: Asthma, Cancer, COPD, Osteoarthritis (OA), Renal Disease, Thyroid Disorder Additional Past Medical History / Comment(s): hemodialysis MOWEFR 3 1/2 hours,dialysis cath rt chest, kidney stones and UTI, hx lymphedema, hx pulmonary fibrosis, hx graves,hx rt foot torn ligaments, hx osteoporosis,hypotension, has O2 available at home but has not needed in 6months; vitamin D deficiency, hypocalcemia,. SKIN CANCER REMOVED FROM BRIDGE OF NOSE., PMR - polymyalgia rhematalia History of Any Multi-Drug Resistant Organisms: CRE Date of last positivie culture/infection: 10/16/18 MDRO-CRE PER [facility] NOT [facility] MDRO Source:: Urine Past Surgical History: Bariatric Surgery Additional Past Surgical History / Comment(s): hx bariatric surgery-Kye En Y,lung biopsy,radioactive iodine-tx thyroid,rectal and bladder suspensions,vaginal surgery as a child,partha carpel tunnel,rt knee meniscus repair,D&C x3, left arm fistula 02/08/19 (not working), left broken wrist, broken right wrist Past Anesthesia/Blood Transfusion Reactions: Previous Problems w/ Anesthesia, Postoperative Nausea & Vomiting (PONV) Additional Past Anesthesia/Blood Transfusion Reaction / Comment(s): decrease bp with anesthesia,no problems with prior blood transfusion Past Psychological History: No Psychological Hx Reported Smoking Status: Never smoker - Past Family History Father Family Medical History: Pulmonary Embolus Additional Family Medical History / Comment(s): . Mother Family Medical History: Cancer Additional Family Medical History / Comment(s): . Sister(s) Family Medical History: Cancer Additional Family Medical History / Comment(s): . Daughter(s) Additional Family Medical History / Comment(s): lymphedema in legs Brother(s) Family Medical History: Cancer Additional Family Medical History / Comment(s): skin cancer Medications and Allergies Home Medications Medication Instructions Recorded Confirmed Type FLUoxetine HCL [PROzac] 20 mg PO BID 08/23/18 04/15/24 History Montelukast [Singulair] 10 mg PO HS 08/23/18 04/15/24 History Omeprazole 40 mg PO AC-BID 11/19/18 04/15/24 History Sodium Bicarbonate Tab 1,950 mg PO W/SUPPER 07/22/19 04/15/24 History Loratadine 10 mg PO DAILY 12/06/19 04/15/24 History Methenamine Hippurate 1 gm PO BID 01/25/21 04/15/24 History Mirabegron [Myrbetriq] 25 mg PO DAILY 01/25/21 04/15/24 History Albuterol Inhaler [Ventolin Hfa 2 puff INHALATION RT-Q6H PRN 02/07/23 04/15/24 History Inhaler] calcitrioL 2 mcg PO MOWEFR 02/07/23 04/15/24 History Bumetanide [BUMEX] 1 mg PO DAILY 10/17/23 04/15/24 History Ergocalciferol [Vitamin D2 (1250 1,250 mcg PO SUTUTHSA 10/17/23 04/15/24 History Mcg = 57043 Iu)] Gabapentin [Neurontin] 300 mg PO BID 10/17/23 04/15/24 History metroNIDAZOLE [Flagyl] 250 mg PO DAILY 10/17/23 04/15/24 History Ipratropium-Albuterol Nebulize 3 ml INHALATION RT-QID PRN 01/04/24 04/15/24 History [Duoneb 0.5 mg-3 mg/3 ml Soln] Calcium Acetate 668mg (169mg 2,004 mg PO TID-W/MEALS 04/15/24 04/15/24 History Calcium) Tab Calcium Acetate 668mg (169mg 668 mg PO DAILY PRN 04/15/24 04/15/24 History Calcium) Tab Cephalexin [Keflex] 500 mg PO DAILY 04/15/24 04/15/24 History Sodium Bicarbonate Tab 1,300 mg PO BID-W/MEALS 04/15/24 04/15/24 History Allergies Allergy/AdvReac Type Severity Reaction Status Date / Time adhesive tape Allergy Rash/Hives Verified 04/15/24 20:01 Sulfa (Sulfonamide Allergy Itching Verified 04/15/24 20:01 Antibiotics) codeine AdvReac Nausea Verified 04/15/24 20:01 tetracycline AdvReac Nausea & Verified 04/15/24 20:01 Vomiting Physical Exam Vitals: Vital Signs Temp Pulse Pulse Resp BP Pulse Ox 04/16/24 14:00 70 04/16/24 12:00 72 16 108/71 94 L 04/16/24 08:00 74 16 04/16/24 07:00 74 16 106/63 98 04/16/24 04:21 78 16 114/71 97 04/16/24 02:00 75 18 04/15/24 21:41 77 16 109/72 95 04/15/24 18:39 97.8 F 72 16 154/87 96 Intake and Output 04/16/24 04/16/24 04/16/24 06:59 14:59 22:59 Other: Voiding Method Toilet Results CBC & Chem 7: 04/15/24 19:09 04/15/24 19:09 Labs: Abnormal Lab Results - Last 24 Hours (Table) 04/15/24 04/15/24 04/15/24 Range/Units 19:09 19:09 19:09 RBC 3.78 L (3.80-5.40) m/uL MCV 104.1 H (80.0-100.0) fL PT 9.8 L (10.0-12.5) sec APTT 32.7 H (22.0-30.0) sec D-Dimer (<0.60) mg/L FEU BUN 33 H (7-17) mg/dL Creatinine 1.43 H (0.52-1.04) mg/dL Calcium 8.0 L (8.4-10.2) mg/dL HDL Cholesterol (40.00-60.00) mg/dL 04/16/24 04/16/24 Range/Units 01:30 08:06 RBC (3.80-5.40) m/uL MCV (80.0-100.0) fL PT (10.0-12.5) sec APTT (22.0-30.0) sec D-Dimer 1.38 H (<0.60) mg/L FEU BUN (7-17) mg/dL Creatinine (0.52-1.04) mg/dL Calcium (8.4-10.2) mg/dL HDL Cholesterol 79.40 H (40.00-60.00) mg/dL
[2024-04-16] MEDS: CALCIUM ACETATE 667 MG TAB PO SCH (17:37)
[2024-04-16] MEDS: PANTOPRAZOLE 40 MG TABLET PO SCH (17:37)
[2024-04-16] MEDS: SODIUM BICARBONATE TAB 650 MG TAB PO SCH ×2 (18:02→18:05)
[2024-04-16] MEDS: ERGOCALCIFEROL 1,250 MCG (50,000 IU) CAPSULE PO SCH (18:05)
[2024-04-16] MEDS: NON FORMULARY DRUG (Methenamine Hippurate [Methenamine Hippurate] 1 GM Tablet) PO SCH (21:45)
[2024-04-16] MEDS: GABAPENTIN 300 MG CAP PO SCH (21:46)
[2024-04-16] MEDS: MONTELUKAST 10 MG TAB PO SCH (21:46)
[2024-04-16] MEDS: FLUoxetine HCL 20 MG CAP PO SCH (21:46)
[2024-04-17] MEDS: NITROGLYCERIN SL TABS 0.4 MG TAB SUBLINGUAL PRN (00:40)
[2024-04-17 08:41] LABS: Basophils # (A) 0.07 X 10*3/uL (0.00-0.10); Eosinophils # (A) 0.26 X 10*3/uL (0.04-0.35); Eosinophils % (A) 3.6 %; HCT 31.6 % (37.2-46.3); HGB 9.9 g/dL (12.0-15.0); Lymphocytes # (A) 1.77 X 10*3/uL (0.90-5.00); Lymphocytes % (A) 24.4 %; MCH 32.1 pg (27.0-32.0); MCHC 31.3 g/dL (32.0-37.0); MCV 102.6 FL (80.0-97.0); Mean Platelet Volume 9.3 FL (9.5-12.2); Monocytes # (A) 1.03 X 10*3/uL (0.20-1.00); Monocytes % (A) 14.2 %; NRBC Per 100 WBC 0 X 10*3/uL (0.00-0.01); Neutrophils # (A) 3.97 X 10*3/uL (1.80-7.70); Neutrophils % (A) 54.7 %; Platelet Count 153 X 10*3/uL (140-440); RBC 3.08 X 10*6/uL (4.10-5.20); RDW 14.3 % (11.5-14.5); WBC 7.25 X 10*3/uL (4.50-10.00)
[2024-04-17 08:42] LABS: BUN/Creat Ratio 17.55 Ratio (12.00-20.00); Blood Urea Nitrogen 50.9 mg/dL (9.0-27.0); Carbon Dioxide 21.1 mmol/L (21.6-31.8); Chloride 105 mmol/L (96-109); Glucose 94 mg/dL (70-110); Potassium 3.4 mmol/L (3.5-5.5); Sodium 140 mmol/L (135-145)
[2024-04-17 08:43] LABS: Calcium 6.7 mg/dL (8.7-10.3)
[2024-04-17] MEDS: LORATADINE 10 MG TAB PO SCH (09:35)
--- NOTE | 2024-04-17 09:50 | P.GSCN ---
History of Present Illness Consult date: 04/17/24 Reason for Consult: Malfunctioning HD catheter Requesting physician: Santiago Lawler History of present illness: Pleasant 78-year-old female well-known to vascular surgery with a history of end-stage renal disease requiring hemodialysis who has a right IJ catheter in place. Patient came in by EMS for complaints of chest pain. Cardiology is following. Patient is currently n.p.o. for possible cardiac catheterization. She undergoes dialysis Mondays, Wednesdays and Fridays. Last Monday and this past Monday they had difficulty with dialysis with poor outflow. Patient states that they did place alteplase and let dwell for about 30 minutes prior to dialysis, however flow was still slow. She denies any pain, inflammation or drainage near her catheter site. No pain down her arm. States she had chest pain again last night. No complaints of shortness of breath. WBC 7.2 hemoglobin 9.9 platelet count 153,000 sodium 140 potassium 3.4 BUN 50.9 creatinine 2.9 Review of Systems A 14 point review systems was completed all pertinent positives and negatives as stated in the HPI. Past Medical History Past Medical History: Asthma, Cancer, COPD, Osteoarthritis (OA), Renal Disease, Thyroid Disorder Additional Past Medical History / Comment(s): hemodialysis MOWEFR 3 1/2 hours,dialysis cath rt chest, kidney stones and UTI, hx lymphedema, hx pulmonary fibrosis, hx graves,hx rt foot torn ligaments, hx osteoporosis,hypotension, has O2 available at home but has not needed in 6months; vitamin D deficiency, hypocalcemia,. 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 PER [facility] NOT [facility] MDRO Source:: Urine Past Surgical History: Bariatric Surgery Additional Past Surgical History / Comment(s): hx bariatric surgery-Kye En Y,lung biopsy,radioactive iodine-tx thyroid,rectal and bladder suspensions,vaginal surgery as a child,partha carpel tunnel,rt knee meniscus repair,D&C x3, left arm fistula 02/08/19 (not working), left broken wrist, broken right wrist Past Anesthesia/Blood Transfusion Reactions: Previous Problems w/ Anesthesia, Postoperative Nausea & Vomiting (PONV) Additional Past Anesthesia/Blood Transfusion Reaction / Comm: decrease bp with anesthesia,no problems with prior blood transfusion Past Psychological History: No Psychological Hx Reported Smoking Status: Never smoker Past Alcohol Use History: None Reported Past Drug Use History: None Reported - Past Family History Father Family Medical History: Pulmonary Embolus Additional Family Medical History / Comment(s): . Mother Family Medical History: Cancer Additional Family Medical History / Comment(s): . Sister(s) Family Medical History: Cancer Additional Family Medical History / Comment(s): . Daughter(s) Additional Family Medical History / Comment(s): lymphedema in legs Brother(s) Family Medical History: Cancer Additional Family Medical History / Comment(s): skin cancer Medications and Allergies Home Medications Medication Instructions Recorded Confirmed Type FLUoxetine HCL [PROzac] 20 mg PO BID 08/23/18 04/15/24 History Montelukast [Singulair] 10 mg PO HS 08/23/18 04/15/24 History Omeprazole 40 mg PO AC-BID 11/19/18 04/15/24 History Sodium Bicarbonate Tab 1,950 mg PO W/SUPPER 07/22/19 04/15/24 History Loratadine 10 mg PO DAILY 12/06/19 04/15/24 History Methenamine Hippurate 1 gm PO BID 01/25/21 04/15/24 History Mirabegron [Myrbetriq] 25 mg PO DAILY 01/25/21 04/15/24 History Albuterol Inhaler [Ventolin Hfa 2 puff INHALATION RT-Q6H PRN 02/07/23 04/15/24 History Inhaler] calcitrioL 2 mcg PO MOWEFR 02/07/23 04/15/24 History Bumetanide [BUMEX] 1 mg PO DAILY 10/17/23 04/15/24 History Ergocalciferol [Vitamin D2 (1250 1,250 mcg PO SUTUTHSA 10/17/23 04/15/24 History Mcg = 14367 Iu)] Gabapentin [Neurontin] 300 mg PO BID 10/17/23 04/15/24 History metroNIDAZOLE [Flagyl] 250 mg PO DAILY 10/17/23 04/15/24 History Ipratropium-Albuterol Nebulize 3 ml INHALATION RT-QID PRN 01/04/24 04/15/24 History [Duoneb 0.5 mg-3 mg/3 ml Soln] Calcium Acetate 668mg (169mg 2,004 mg PO TID-W/MEALS 04/15/24 04/15/24 History Calcium) Tab Calcium Acetate 668mg (169mg 668 mg PO DAILY PRN 04/15/24 04/15/24 History Calcium) Tab Cephalexin [Keflex] 500 mg PO DAILY 04/15/24 04/15/24 History Sodium Bicarbonate Tab 1,300 mg PO BID-W/MEALS 04/15/24 04/15/24 History Allergies Allergy/AdvReac Type Severity Reaction Status Date / Time adhesive tape Allergy Rash/Hives Verified 04/15/24 20:01 Sulfa (Sulfonamide Allergy Itching Verified 04/15/24 20:01 Antibiotics) codeine AdvReac Nausea Verified 04/15/24 20:01 tetracycline AdvReac Nausea & Verified 04/15/24 20:01 Vomiting Surgical - Exam Vital Signs Temp Pulse Resp BP Pulse Ox 97.8 F 72 16 154/87 96 04/15/24 18:39 04/15/24 18:39 04/15/24 18:39 04/15/24 18:39 04/15/24 18:39 General appearance: The patient is alert, oriented, appears in no acute distress. HET: Head is normocephalic and atraumatic. Pupils are equal and reactive. Neck: Supple. Right IJ tunneled catheter in place. Catheter secured to right chest with dressing in place. No surrounding erythema, nontender to palpation. Heart: Regular. Lungs: Equal expansion, normal respiratory effort. Abdomen: Soft, nontender, nondistended. Extremities: Normal skin color and turgor. Palpable radial pulses. Neurological: No focal deficits. Strength and sensation are grossly intact. Results - Labs 04/17/24 04:33 04/17/24 04:33 Abnormal Lab Results - Last 24 Hours (Table) 04/16/24 04/16/24 Range/Units 01:30 08:06 D-Dimer 1.38 H (<0.60) mg/L FEU HDL Cholesterol 79.40 H (40.00-60.00) mg/dL Diabetes panel 04/16/24 Range/Units 01:30 Triglycerides 89.40 (0.00-149.00) mg/dL HDL Cholesterol 79.40 H (40.00-60.00) mg/dL Assessment and Plan Assessment: 1. Malfunctioning hemodialysis catheter 2. Chest pain 3. End-stage renal disease requiring hemodialysis Plan: 1. Push 2 mg of tPA and dialysis catheter and let dwell at least 6 hours before attempting hemodialysis, otherwise would recommend dialysis in the morning if okay with nephrology 2. Patient tentatively scheduled for HD catheter exchange tomorrow 3. Await further workup and recommendations from cardiology 4. HD recommendations per nephrology 5. N.p.o. after midnight Thank you for this consultation, we will continue to follow. The impression and plan of care has been dictated as directed. I performed a history and examination of this patient, discussed the same with the dictator. I agree with the dictator's note ,documented as a scribe. Any additional findings or plans will be noted.
[2024-04-17] MEDS: NON FORMULARY DRUG (Mirabegron [Myrbetriq] 25 MG Tab.Er.24h) PO SCH (09:59)
[2024-04-17] MEDS: ALTEPLASE 2 MG VIAL (CATHFLO) IV STA ×2 (10:01→10:02)
--- NOTE | 2024-04-17 12:41 | P.PN ---
Subjective patient is seen for follow-up for end-stage renal disease. Patient has been evaluated by vascular surgery and had TPA placed this morning. There are plans for dialysis this afternoon. No complaints of chest pain. Patient did report diarrhea. Pulmonary perfusion scan showed low probability for PE. Objective - Vital Signs Vital signs: Vital Signs Temp 98.0 F 04/17/24 07:00 Pulse 81 04/17/24 07:00 Resp 16 04/17/24 07:00 BP 109/74 04/17/24 07:00 Pulse Ox 97 04/17/24 07:00 FiO2 Intake & Output 04/16/24 04/17/24 04/17/24 18:59 06:59 18:59 Intake Total 118 Balance 118 Weight 59.6 kg Intake: Oral 118 Other: Voiding Method Toilet Toilet # Voids 1 # Bowel Movements 0 - Exam On examination patient is comfortable awake alert oriented 3 Examination of the heart S1 and S2 Examination of the lungs bilateral breath sounds are heard Abdomen is soft nontender Examination of lower extremities shows edema chronic 1+ bilaterally Anus exam grossly intact - Labs CBC & Chem 7: 04/17/24 04:33 04/17/24 04:33 Labs: Abnormal Lab Results - Last 24 Hours (Table) 04/17/24 04/17/24 Range/Units 04:33 04:33 RBC 3.08 L (4.10-5.20) X 10*6/uL Hgb 9.9 L (12.0-15.0) g/dL Hct 31.6 L (37.2-46.3) % MCV 102.6 H (80.0-97.0) FL MCH 32.1 H (27.0-32.0) pg MCHC 31.3 L (32.0-37.0) g/dL MPV 9.3 L (9.5-12.2) FL Immature Gran # 0.15 H (0.00-0.04) X 10*3/uL Monocytes # 1.03 H (0.20-1.00) X 10*3/uL Potassium 3.4 L (3.5-5.5) mmol/L Carbon Dioxide 21.1 L (21.6-31.8) mmol/L Anion Gap 13.90 H (4.00-12.00) mmol/L BUN 50.9 H (9.0-27.0) mg/dL Creatinine 2.9 H (0.6-1.5) mg/dL Est GFR (CKD-EPI) 16 L (>=60) Calcium 6.7 L (8.7-10.3) mg/dL Assessment and Plan Assessment: 1. End-stage renal disease, maintained on hemodialysis on Monday schedule. Patient was recently restarted on dialysis in November 2023. She has good urine output. Right IJ permacath has had poor flows as outpatient and is being evaluated by vascular surgery. Status post TPA 2. Chest pain being followed by cardiology 3. CK D mineral bone disorder 4. Hypokalemia from diarrhea Plan: replace potassium Hemodialysis today and possible catheter exchange in a.m. if catheter continues to malfunction.
[2024-04-17] MEDS ORDERED: NITROGLYCERIN SL TABS 0.4 MG TAB SUBLINGUAL PRN (13:35)
[2024-04-17] MEDS ORDERED: ALPRAZolam 0.25 MG TAB PO PRN (13:35)
[2024-04-17] MEDS ORDERED: ALPRAZolam 0.5 MG TAB PO PRN (13:35)
--- NOTE | 2024-04-17 14:45 | P.PN ---
Subjective Progress Note Date: 04/17/24 Consult reason: chest pain History of present illness: This is a 78-year-old female patient of Dr. Price with past medical history of end-stage renal disease on hemodialysis, valvular heart disease. Patient complains of sharp midsternal chest pain as well as right arm numbness. She was at dialysis with onset. She states it lasted about 5 minutes. She denies any shortness of breath no palpitations. She does have some dizziness when he gets up but this is not new for her. The chest pain has not returned. Patient is seen today in the emergency center waiting for a bed on the observation unit. Blood pressure 114/71, heart rate 78, pulse ox 97% on room air. Patient is status post full-strength aspirin and nitroglycerin. EKG: Sinus rhythm with no acute ST-T wave changes Chest x-ray: No acute process Laboratory studies: Troponin negative x 3. Potassium 3.6, BUN 33 creatinine 1.43. WBC 7.7, hemoglobin 12.2. Home cardiac medications: Bumex 1 mg daily Echocardiogram performed 10/18/2023 revealed normal left ventricular size and systolic function. Trace to mild MR and tricuspid regurgitation. Lexiscan Cardiolite stress test performed in the office on 12/27/2023 revealed small distal anterior ischemia. 04/17/2024 Patient is seen and examined. Yesterday, D-dimer came back elevated at 1.38 and VQ scan was ordered which showed no convincing evidence of acute pulmonary embolism. Low probability. Patient states that she was still having chest pain last evening. She is feeling fine now. Blood pressure 109/74, heart rate 81, pulse ox 97% on room air. Discussed undergoing left heart cath with the patient and she is agreeable to move forward with this. Physical examination: Gen: This is a 78-year-old female in no acute distress VS: reviewed HEENT: Head is atraumatic, normocephalic. Pupils equal, round. Sclerae is anicteric. NECK: Supple. No JVD. LUNGS: Clear to auscultation. No wheezes or rhonchi. No intercostal retractio ns. HEART: Regular rate and rhythm. Soft systolic murmur. ABDOMEN: Soft No tenderness. EXTREMITIES: No pedal edema. No calf tenderness. NEUROLOGICAL: Patient is awake, alert and oriented x3. Assessment: Atypical chest pain versus unstable angina Abnormal Lexiscan stress test performed 12/27/2023 with small distal anterior ischemia End-stage renal disease on hemodialysis Valvular heart disease with trace to mild MR and TR Plan: Continue patient's home cardiac medications Schedule patient for cardiac catheterization tomorrow with Dr. Price Further recommendations to follow based upon clinical course Thank you kindly for this consultation. Nurse practitioner note has been reviewed, I agree with documented findings and plan of care. Patient was seen and examined. Objective - Vital Signs Vital signs: Vital Signs Temp 98.0 F 04/17/24 07:00 Pulse 81 04/17/24 07:00 Resp 16 04/17/24 07:00 BP 109/74 04/17/24 07:00 Pulse Ox 97 04/17/24 07:00 FiO2 Intake & Output 04/16/24 04/17/24 04/17/24 18:59 06:59 18:59 Intake Total 118 Balance 118 Weight 59.6 kg Intake: Oral 118 Other: Voiding Method Toilet Toilet # Voids 1 # Bowel Movements 0 - Labs CBC & Chem 7: 04/17/24 04:33 04/17/24 04:33 Labs: Abnormal Lab Results - Last 24 Hours (Table) 04/16/24 04/16/24 04/17/24 Range/Units 01:30 08:06 04:33 RBC 3.08 L (4.10-5.20) X 10*6/uL Hgb 9.9 L (12.0-15.0) g/dL Hct 31.6 L (37.2-46.3) % MCV 102.6 H (80.0-97.0) FL MCH 32.1 H (27.0-32.0) pg MCHC 31.3 L (32.0-37.0) g/dL MPV 9.3 L (9.5-12.2) FL Immature Gran # 0.15 H (0.00-0.04) X 10*3/uL Monocytes # 1.03 H (0.20-1.00) X 10*3/uL D-Dimer 1.38 H (<0.60) mg/L FEU Potassium (3.5-5.5) mmol/L Carbon Dioxide (21.6-31.8) mmol/L Anion Gap (4.00-12.00) mmol/L BUN (9.0-27.0) mg/dL Creatinine (0.6-1.5) mg/dL Est GFR (CKD-EPI) (>=60) Calcium (8.7-10.3) mg/dL HDL Cholesterol 79.40 H (40.00-60.00) mg/dL 04/17/24 Range/Units 04:33 RBC (4.10-5.20) X 10*6/uL Hgb (12.0-15.0) g/dL Hct (37.2-46.3) % MCV (80.0-97.0) FL MCH (27.0-32.0) pg MCHC (32.0-37.0) g/dL MPV (9.5-12.2) FL Immature Gran # (0.00-0.04) X 10*3/uL Monocytes # (0.20-1.00) X 10*3/uL D-Dimer (<0.60) mg/L FEU Potassium 3.4 L (3.5-5.5) mmol/L Carbon Dioxide 21.1 L (21.6-31.8) mmol/L Anion Gap 13.90 H (4.00-12.00) mmol/L BUN 50.9 H (9.0-27.0) mg/dL Creatinine 2.9 H (0.6-1.5) mg/dL Est GFR (CKD-EPI) 16 L (>=60) Calcium 6.7 L (8.7-10.3) mg/dL HDL Cholesterol (40.00-60.00) mg/dL
[2024-04-17] MEDS: ALBUTEROL HFA INHALER INHALATION PRN (20:09)
[2024-04-18] MEDS: traMADol 50 MG TAB PO PRN (00:39)
[2024-04-18] MEDS: LEVOTHYROXINE 75 MCG TAB PO SCH (06:15)
[2024-04-18] MEDS: LOPERAMIDE 2 MG CAP PO PRN (07:03)
[2024-04-18] MEDS ORDERED: NITROGLYCERIN SL TABS 0.4 MG TAB SUBLINGUAL PRN (08:22)
[2024-04-18] MEDS ORDERED: ALPRAZolam 0.5 MG TAB PO PRN (08:22)
[2024-04-18] MEDS ORDERED: ALPRAZolam 0.25 MG TAB PO PRN (08:22)
[2024-04-18 08:41] LABS: Basophils # (A) 0.09 X 10*3/uL (0.00-0.10); Basophils % (A) 1.1 %; Eosinophils # (A) 0.27 X 10*3/uL (0.04-0.35); Eosinophils % (A) 3.4 %; HGB 9.8 g/dL (12.0-15.0); Lymphocytes # (A) 1.79 X 10*3/uL (0.90-5.00); Lymphocytes % (A) 22.8 %; MCH 32.5 pg (27.0-32.0); MCHC 31.6 g/dL (32.0-37.0); MCV 102.6 FL (80.0-97.0); Mean Platelet Volume 9.4 FL (9.5-12.2); NRBC Per 100 WBC 0 X 10*3/uL (0.00-0.01); Neutrophils % (A) 57.4 %; Platelet Count 149 X 10*3/uL (140-440); RBC 3.02 X 10*6/uL (4.10-5.20); RDW 14.2 % (11.5-14.5); WBC 7.85 X 10*3/uL (4.50-10.00)
[2024-04-18 08:53] LABS: BUN/Creat Ratio 18.53 Ratio (12.00-20.00); Blood Urea Nitrogen 55.6 mg/dL (9.0-27.0); Calcium 6.6 mg/dL (8.7-10.3); Carbon Dioxide 19.8 mmol/L (21.6-31.8); Chloride 106 mmol/L (96-109); Glucose 101 mg/dL (70-110); Potassium 3.6 mmol/L (3.5-5.5); Sodium 140 mmol/L (135-145)
[2024-04-18] MEDS: IV FLUID CONTINUATION 1,000 ML IV ONE ×2 (09:45→10:40)
[2024-04-18] MEDS: LIDOCAINE 1% INJ 10MG/ML (20 ML MDV) SQ ONE ×2 (09:50→10:33)
[2024-04-18] MEDS: MIDAZOLAM 2 MG/2 ML VIAL IVP ONE (09:50)
[2024-04-18] MEDS: fentaNYL (PF) 50 MCG/1 ML VIAL IVP ONE (09:50)
--- NOTE | 2024-04-18 10:30 | P.OP ---
Date of Procedure: 04/18/24 Description of Procedure: Preoperative Diagnosis: Malfunctioning tunneled catheter ESRD Postoperative Diagnosis: Same Procedure(s) Performed: Right tunneled catheter removal and replacement with flouroscopic assistance Conscious sedation x 9 minutes Anesthesia: local Surgeon: Alejandro Montanez Estimated Blood Loss (ml): 20 Pathology: none sent Condition: stable Disposition: PACU Indications for Procedure: 78-year-old female with history of end-stage renal disease on hemodialysis via a right-sided tunneled catheter presents to the hospital for chest pains and also noted to have occlusion of her tunneled dialysis catheter. She presents for removal and placement of tunnel catheter. Description of Procedure: Operative narrative: After written and informed consent was obtained and all risks, benefits and competitions were described the patient was brought to the Rotary Operator and laid in a supine position. The area of the right neck and existing catheter was prepped and draped in the usual sterile fashion. Timeout was performed in normal fashion and antibiotics were administered prior to access. Local anesthetic was infused overlying the tunnel catheter at the neck and small incision was created over the existing catheter and dissection was carried down to the catheter which was dissected free and grasped with a stat. Catheter was then cut and the proximal aspect was accessed with a Glidewire under direct visualization of fluoroscopy. Existing catheter was then removed. Large dilator was then placed under visualization and kept in place to prevent any back bleeding. Attention was then placed to the chest wall catheter which was dissected free to the cuff and removed in normal fashion. There was a small skin tear at the exit site. A small incision was then created on the lateral aspect of the chest wall at a different location from previous. A 19 centimeter palindrome hemodialysis catheter was then tunneled from the chest wall to the neck. Breakaway sheath was placed into the internal jugular vein under direct visualization of fluoroscopy. The catheter was then placed within the break away sheath the sheath was removed. The ports were assessed for patency and ameya and flushed easily and then were hep-locked. The catheter was then sutured in place, cleansed and dressings were placed. The patient tolerated procedure well.
[2024-04-18] MEDS: VERAPAMIL SYRINGE (5 MG/10 ML) INTRAARTER ONE (10:34)
[2024-04-18] MEDS: HEPARIN SODIUM 1,000 UN/ML (10ML VL) IVP ONE (10:36)
[2024-04-18] MEDS: IOPAMIDOL-300 100ML BTL INJ ONE (10:40)
[2024-04-18] MEDS ORDERED: RX INFO: IV CONTRAST WAS GIVEN 1 EACH MISC MISCELLANE PRN (10:45)
[2024-04-18] MEDS: HEPARIN SODIUM,PORCINE 10,000 UNIT in SODIUM CHLORIDE 0.9% 1,000 ML IRRIGATION PRN (10:45)
[2024-04-18] MEDS: HEPARIN SODIUM,PORCINE (1 ML) 2,500 UNIT in SODIUM CHLORIDE 0.9% 250 ML IRRIGATION PRN (10:46)
--- NOTE | 2024-04-18 10:47 | P.PCN ---
Date of Procedure: 04/18/24 Operative Findings: CARDIAC CATHETERIZATION PERFORMING PHYSICIAN: Adalid Price MD, RPVI PROCEDURE PERFORMED: 1. Selective right and left coronary angiogram 2. Left heart catheterization 3. Ultrasound-guided access of the right radial artery INDICATION: Symptomatic 78-year-old female patient with multiple risk factors and abnormal myocardial perfusion imaging stress test COMPLICATION: None APPROACH: Right radial artery LEVEL OF SEDATION: Moderate with a sedation length of 12 minutes PROCEDURE DESCRIPTION: After obtaining an informed consent, the patient was brought to cardiac geophysical laboratory chief. Local anesthesia was performed using lidocaine subcutaneously. The right radial artery was cannulated using Seldinger technique, the guidewire passed easily, following that we advanced a 5-Spanish sheath dilator assembly, the wire and dilator were removed and sheath was flushed. Following that, 2 mg of verapamil along with 5000 unit heparin were given. Selective right and left coronary angiogram using a 6-Spanish JR4 and JL 3.5 catheters. Following that we did left heart catheterization using the JR4 catheter. The procedure was completed there was no complication. SELECTIVE CORONARY ANGIOGRAM: The right coronary artery: Large-caliber vessel and a dominant vessel and appears to be angiographically normal Left main: Is angiographically normal The left circumflex: Large-caliber vessel nondominant vessel and also angiographically normal The left anterior descending artery: Large-caliber vessel with no evidence of high-grade stenosis HEMODYNAMICS: The LVEDP was 12 mmHg and no gradient across aortic valve CONCLUSION: 1. Normal coronary angiogram 2. Normal left-sided filling pressure POSTPROCEDURE MANAGEMENT: Medical treatment
[2024-04-18] MEDS: ASPIRIN 325 MG TAB PO STA (11:14)
--- NOTE | 2024-04-18 11:33 | P.PN ---
Subjective Progress Note Date: 04/18/24 Consult reason: chest pain History of present illness: This is a 78-year-old female patient of Dr. Price with past medical history of end-stage renal disease on hemodialysis, valvular heart disease. Patient complains of sharp midsternal chest pain as well as right arm numbness. She was at dialysis with onset. She states it lasted about 5 minutes. She denies any shortness of breath no palpitations. She does have some dizziness when he gets up but this is not new for her. The chest pain has not returned. Patient is seen today in the emergency center waiting for a bed on the observation unit. Blood pressure 114/71, heart rate 78, pulse ox 97% on room air. Patient is status post full-strength aspirin and nitroglycerin. EKG: Sinus rhythm with no acute ST-T wave changes Chest x-ray: No acute process Laboratory studies: Troponin negative x 3. Potassium 3.6, BUN 33 creatinine 1.43. WBC 7.7, hemoglobin 12.2. Home cardiac medications: Bumex 1 mg daily Echocardiogram performed 10/18/2023 revealed normal left ventricular size and systolic function. Trace to mild MR and tricuspid regurgitation. Lexiscan Cardiolite stress test performed in the office on 12/27/2023 revealed small distal anterior ischemia. 04/17/2024 Patient is seen and examined. Yesterday, D-dimer came back elevated at 1.38 and VQ scan was ordered which showed no convincing evidence of acute pulmonary embolism. Low probability. Patient states that she was still having chest pain last evening. She is feeling fine now. Blood pressure 109/74, heart rate 81, pulse ox 97% on room air. Discussed undergoing left heart cath with the patient and she is agreeable to move forward with this. 04/18/2024 Patient is seen and examined. She is in need of a new line for dialysis. Discussed cardiac catheterization and patient is still willing to move forward with that today and will coordinate with vascular surgery. Blood pressure 111/69, heart rate 71, pulse ox 97% on room air. Repeat blood work reveals hemoglobin 9.8 BUN 55, creatinine 3, potassium 3.6. Physical examination: Gen: This is a 78-year-old female in no acute distress VS: reviewed HEENT: Head is atraumatic, normocephalic. Pupils equal, round. Sclerae is anicteric. NECK: Supple. No JVD. LUNGS: Clear to auscultation. No wheezes or rhonchi. No intercostal retractions. HEART: Regular rate and rhythm. Soft systolic murmur. ABDOMEN: Soft No tenderness. EXTREMITIES: No pedal edema. No calf tenderness. NEUROLOGICAL: Patient is awake, alert and oriented x3. Assessment: Atypical chest pain versus unstable angina Abnormal Lexiscan stress test performed 12/27/2023 with small distal anterior is chemia End-stage renal disease on hemodialysis Valvular heart disease with trace to mild MR and TR Plan: Continue patient's home cardiac medications Schedule patient for cardiac catheterization today with Dr. Price Further recommendations to follow based upon clinical course Thank you kindly for this consultation. Nurse practitioner note has been reviewed, I agree with documented findings and plan of care. Patient was seen and examined. Objective - Vital Signs Vital signs: Vital Signs Temp 98.3 F 04/18/24 07:00 Pulse 71 04/18/24 07:00 Resp 16 04/18/24 07:00 BP 111/69 04/18/24 07:00 Pulse Ox 97 04/18/24 07:00 FiO2 Intake & Output 04/17/24 04/18/24 04/18/24 18:59 06:59 18:59 Intake Total 718 480 Balance 718 480 Intake: Oral 718 480 Other: Voiding Method Toilet Toilet # Voids 2 - Labs CBC & Chem 7: 04/18/24 04:44 04/18/24 04:44 Labs: Abnormal Lab Results - Last 24 Hours (Table) 04/17/24 04/17/24 Range/Units 04:33 04:33 RBC 3.08 L (4.10-5.20) X 10*6/uL Hgb 9.9 L (12.0-15.0) g/dL Hct 31.6 L (37.2-46.3) % MCV 102.6 H (80.0-97.0) FL MCH 32.1 H (27.0-32.0) pg MCHC 31.3 L (32.0-37.0) g/dL MPV 9.3 L (9.5-12.2) FL Immature Gran # 0.15 H (0.00-0.04) X 10*3/uL Monocytes # 1.03 H (0.20-1.00) X 10*3/uL Potassium 3.4 L (3.5-5.5) mmol/L Carbon Dioxide 21.1 L (21.6-31.8) mmol/L Anion Gap 13.90 H (4.00-12.00) mmol/L BUN 50.9 H (9.0-27.0) mg/dL Creatinine 2.9 H (0.6-1.5) mg/dL Est GFR (CKD-EPI) 16 L (>=60) Calcium 6.7 L (8.7-10.3) mg/dL
--- NOTE | 2024-04-18 11:44 | XR ---
EXAMINATION TYPE: XR chest 1V confirm line plcmt DATE OF EXAM: 04/18/2024 11:36 AM COMPARISON: 04/15/2024 CLINICAL INDICATION: Female, 78 years old with history of line placement confirmation, TECHNIQUE: XR chest 1V confirm line plcmt view(s) obtained. FINDINGS: The heart size is normal. The pulmonary vasculature is normal. The lungs are clear. Right central venous catheter is then exchanged. Catheter tips are within the proximal right atrium. No pneumothorax evident IMPRESSION: 1. No pneumothorax post catheter placement, tips within the proximal right atrium [facility], , 04/18/2024 11:41 AM
--- NOTE | 2024-04-18 12:04 | IR ---
EXAMINATION TYPE: IR fistula/abscess/sinus tract DATE OF EXAM: 04/18/2024 10:58 AM COMPARISON: Pre Operative Images if available both CT/MRI or plain film CLINICAL INDICATION: Female, 78 years old with history of 0.2min fluoro, [id number], hemodialysis cat heter not working; TECHNIQUE: IR fistula/abscess/sinus tract, multiple fluoroscopic images provided for procedure. Total fluoroscopy time: 2.8 minutes Total submitted images to PACS: [id number] DAP: 1.26 mGym2 Gycm2 uGym2 cGycm2 or equivalent. FINDINGS: IMPRESSION: 1. Report was generated for administrative purposes only. 2. Please see the operative/procedural note for further details. [facility], , 04/18/2024 12:02 PM
--- NOTE | 2024-04-18 12:53 | P.PN ---
Subjective patient is seen for follow-up for end-stage renal disease. S/p new right IJ permacath placement today. Status post cardiac catheterization as well this morning with no evidence of obstructive coronary artery disease. Patient is scheduled for hemodialysis today. No complaints of chest pain. Objective - Vital Signs Vital signs: Vital Signs Temp 98.3 F 04/18/24 07:00 Pulse 71 04/18/24 07:00 Resp 16 04/18/24 07:00 BP 111/69 04/18/24 07:00 Pulse Ox 97 04/18/24 07:00 FiO2 Intake & Output 04/17/24 04/18/24 04/18/24 18:59 06:59 18:59 Intake Total 718 480 175 Balance 718 480 175 Intake: IV 175 Oral 718 480 0 Other: Voiding Method Toilet Toilet Toilet # Voids 2 - Exam On examination patient is comfortable awake alert oriented 3 alert and oriented 3 Examination of lower extremities shows edema chronic 1+ bilaterally Anus exam grossly intact - Labs CBC & Chem 7: 04/18/24 04:44 04/18/24 04:44 Labs: Abnormal Lab Results - Last 24 Hours (Table) 04/18/24 04/18/24 Range/Units 04:44 04:44 RBC 3.02 L (4.10-5.20) X 10*6/uL Hgb 9.8 L (12.0-15.0) g/dL Hct 31.0 L (37.2-46.3) % MCV 102.6 H (80.0-97.0) FL MCH 32.5 H (27.0-32.0) pg MCHC 31.6 L (32.0-37.0) g/dL MPV 9.4 L (9.5-12.2) FL Immature Gran # 0.10 H (0.00-0.04) X 10*3/uL Monocytes # 1.10 H (0.20-1.00) X 10*3/uL Carbon Dioxide 19.8 L (21.6-31.8) mmol/L Anion Gap 14.20 H (4.00-12.00) mmol/L BUN 55.6 H (9.0-27.0) mg/dL Creatinine 3.0 H (0.6-1.5) mg/dL Est GFR (CKD-EPI) 15 L (>=60) Calcium 6.6 L (8.7-10.3) mg/dL Assessment and Plan Assessment: 1. End-stage renal disease, maintained on hemodialysis on Monday schedule. S/p new right IJ permacath placement today 2. Chest pain being followed by cardiology 3. CK D mineral bone disorder 4. Hypokalemia from diarrhea, replaced Plan: Hemodialysis today
--- NOTE | 2024-04-18 14:31 | P.PN ---
Subjective Progress Note Date: 04/18/24 This is a 78-year-old female with past medical history significant for end-stage renal disease on hemodialysis 3 times weekly, still make urine, history of valvular heart disease, history of COPD who presented to ER with a complaint of sharp midsternal chest pain as well as right arm numbness while patient was receiving dialysis, it lasted about 5 minutes. Patient denied any nausea, shortness of breath, blurred vision, or diaphoresis,. Patient reported some dizziness with ambulation. Chest pain remained resolved. Patient denied any fever, chills, headache, nausea vomiting diarrhea constipation abdominal pain dysuria urgency frequency weakness of upper or lower extremities. Patient afebrile, heart rate 72, respiratory rate 16, blood pressure 108/71, saturating 94% on room air. WBC 7.7, hemoglobin 12.2, platelets 202. INR 0.9. Sodium 137, potassium 3.6, BUN 33, creatinine 1.43. Troponin negative x 3. EKG showed sinus rhythm with no acute ST/T wave changes. Chest x-ray negative for any acute process. Echocardiogram in October 2023 showed normal LV systolic function, mild MR and TR. Stress test in December 2023 showed small distal anterior ischemia. 04/18. Patient seen and examined. Patient underwent cardiac cath this afternoon, currently undergoing dialysis. REVIEW OF SYSTEMS: CONSTITUTIONAL: No fever, no malaise,. CARDIOVASCULAR: No chest pain, no palpitations, no syncope. PULMONARY: No shortness of breath, no cough, GASTROINTESTINAL: No diarrhea, no nausea, no vomiting, no abdominal pain. NEUROLOGICAL: No headaches, no weakness, PHYSICAL EXAMINATION: GENERAL: The patient is alert and oriented x3, not in any acute distress. Well developed, well nourished. HEENT: Pupils are round and equally reacting to light. EOMI. No scleral icterus. No conjunctival pallor. Normocephalic, atraumatic. No pharyngeal erythema. No thyromegaly. CARDIOVASCULAR: S1 and S2 present. No murmurs, rubs, or gallops. PULMONARY: Chest is clear to auscultation, no wheezing or crackles. ABDOMEN: Soft, nontender, nondistended, normoactive bowel sounds. No palpable organomegaly. MUSCULOSKELETAL: No joint swelling or deformity. EXTREMITIES: No cyanosis, clubbing, or pedal edema. NEUROLOGICAL: Gross neurological examination did not reveal any focal deficits. SKIN: No rashes. Assessment and plan Chest pain: Presented with chest pain during hemodialysis, now resolved. Abnormal Lexiscan stress test in December 2023 with small distal anterior ischemia Troponin negative, EKG negative for acute changes. Cardiology following, patient had cardiac cath today showing normal coronary angiogram. End-stage renal disease on hemodialysis: Continue dialysis per nephrology Labs and medication were reviewed.. Continue same treatment. Continue with symptomatic treatment. Resume home medication. Monitor labs and vitals. DVT and GI prophylaxis. Further recommendations as per clinical course of the patient Dictation was produced using [employer] dictation software. please excuse any grammatical, word or spelling errors. Objective - Vital Signs Vital signs: Vital Signs Temp 97.8 F 04/18/24 14:11 Pulse 71 04/18/24 07:00 Resp 15 04/18/24 14:11 BP 110/64 04/18/24 14:11 Pulse Ox 97 04/18/24 14:11 FiO2 Intake & Output 04/17/24 04/18/24 04/18/24 18:59 06:59 18:59 Intake Total 718 480 175 Balance 718 480 175 Intake: IV 175 Oral 718 480 0 Other: Voiding Method Toilet Toilet Toilet # Voids 2 1 - Labs CBC & Chem 7: 04/18/24 04:44 04/18/24 04:44 Labs: Abnormal Lab Results - Last 24 Hours (Table) 04/18/24 04/18/24 Range/Units 04:44 04:44 RBC 3.02 L (4.10-5.20) X 10*6/uL Hgb 9.8 L (12.0-15.0) g/dL Hct 31.0 L (37.2-46.3) % MCV 102.6 H (80.0-97.0) FL MCH 32.5 H (27.0-32.0) pg MCHC 31.6 L (32.0-37.0) g/dL MPV 9.4 L (9.5-12.2) FL Immature Gran # 0.10 H (0.00-0.04) X 10*3/uL Monocytes # 1.10 H (0.20-1.00) X 10*3/uL Carbon Dioxide 19.8 L (21.6-31.8) mmol/L Anion Gap 14.20 H (4.00-12.00) mmol/L BUN 55.6 H (9.0-27.0) mg/dL Creatinine 3.0 H (0.6-1.5) mg/dL Est GFR (CKD-EPI) 15 L (>=60) Calcium 6.6 L (8.7-10.3) mg/dL
[2024-04-18] MEDS: ATORVASTATIN 80 MG TAB PO STA (15:34)
[2024-04-18] MEDS: SODIUM CHLORIDE 0.9% 1,000 ML in EMPTY BAG 1 BAG IV SCH (17:16)
[2024-04-18] MEDS: SODIUM CHLORIDE 0.9% 1,000 ML IV SCH (17:16)
[2024-04-19] MEDS ORDERED: HEPARIN SODIUM,PORCINE 10,000 UNIT in SODIUM CHLORIDE 0.9% 1,000 ML IRRIGATION PRN (07:00)
[2024-04-19] MEDS ORDERED: HEPARIN SODIUM,PORCINE (1 ML) 2,500 UNIT in SODIUM CHLORIDE 0.9% 250 ML IRRIGATION PRN (07:00)
--- NOTE | 2024-04-19 10:32 | P.PN ---
Subjective Progress Note Date: 04/19/24 Consult reason: chest pain History of present illness: This is a 78-year-old female patient of Dr. Price with past medical history of end-stage renal disease on hemodialysis, valvular heart disease. Patient complains of sharp midsternal chest pain as well as right arm numbness. She was at dialysis with onset. She states it lasted about 5 minutes. She denies any shortness of breath no palpitations. She does have some dizziness when he gets up but this is not new for her. The chest pain has not returned. Patient is seen today in the emergency center waiting for a bed on the observation unit. Blood pressure 114/71, heart rate 78, pulse ox 97% on room air. Patient is status post full-strength aspirin and nitroglycerin. EKG: Sinus rhythm with no acute ST-T wave changes Chest x-ray: No acute process Laboratory studies: Troponin negative x 3. Potassium 3.6, BUN 33 creatinine 1.43. WBC 7.7, hemoglobin 12.2. Home cardiac medications: Bumex 1 mg daily Echocardiogram performed 10/18/2023 revealed normal left ventricular size and systolic function. Trace to mild MR and tricuspid regurgitation. Lexiscan Cardiolite stress test performed in the office on 12/27/2023 revealed small distal anterior ischemia. 04/17/2024 Patient is seen and examined. Yesterday, D-dimer came back elevated at 1.38 and VQ scan was ordered which showed no convincing evidence of acute pulmonary embolism. Low probability. Patient states that she was still having chest pain last evening. She is feeling fine now. Blood pressure 109/74, heart rate 81, pulse ox 97% on room air. Discussed undergoing left heart cath with the patient and she is agreeable to move forward with this. 04/18/2024 Patient is seen and examined. She is in need of a new line for dialysis. Discussed cardiac catheterization and patient is still willing to move forward with that today and will coordinate with vascular surgery. Blood pressure 111/69, heart rate 71, pulse ox 97% on room air. Repeat blood work reveals hemoglobin 9.8 BUN 55, creatinine 3, potassium 3.6. 04/19/24 Patient is seen and examined. She underwent cardiac catheterization yesterday with Dr. Price which revealed normal coronary angiogram and normal left-sided filling pressure. Results of the catheterization reviewed with the patient. She has no chest pain today. Blood pressure 98/57, heart rate 80, pulse ox 90% on room air. Physical examination: Gen: This is a 78-year-old female in no acute distress VS: reviewed HEENT: Head is atraumatic, normocephalic. Pupils equal, round. Sclerae is anicteric. NECK: Supple. No JVD. LUNGS: Clear to auscultation. No wheezes or rhonchi. No intercostal ret ractions. HEART: Regular rate and rhythm. Soft systolic murmur. ABDOMEN: Soft No tenderness. EXTREMITIES: No pedal edema. No calf tenderness. NEUROLOGICAL: Patient is awake, alert and oriented x3. Assessment: Atypical chest pain versus unstable angina Abnormal Lexiscan stress test performed 12/27/2023 with small distal anterior ischemia End-stage renal disease on hemodialysis Valvular heart disease with trace to mild MR and TR Plan: Continue patient's home cardiac medications Cardiology will sign off this case and follow on an as-needed basis. Please reconsult for any new concerns. Patient may follow-up in the office in one to [address] Price. Nurse practitioner note has been reviewed, I agree with documented findings and plan of care. Patient was seen and examined. Objective - Vital Signs Vital signs: Vital Signs Temp 98.0 F 04/19/24 07:25 Pulse 80 04/19/24 07:25 Resp 15 04/19/24 07:25 BP 98/57 04/19/24 07:25 Pulse Ox 90 L 04/19/24 07:25 FiO2 Intake & Output 04/18/24 04/19/24 04/19/24 18:59 06:59 18:59 Intake Total 175 400 Output Total 1400 Balance 175 -1000 Intake: IV 175 Oral 0 Hemodialysis 400 Output: Hemodialysis 900 Hemodialysis Net Amount 500 Other: Voiding Method Toilet # Voids 1 2 - Labs CBC & Chem 7: 04/18/24 04:44 04/19/24 09:16 Labs: Abnormal Lab Results - Last 24 Hours (Table) 04/18/24 04/18/24 Range/Units 04:44 04:44 RBC 3.02 L (4.10-5.20) X 10*6/uL Hgb 9.8 L (12.0-15.0) g/dL Hct 31.0 L (37.2-46.3) % MCV 102.6 H (80.0-97.0) FL MCH 32.5 H (27.0-32.0) pg MCHC 31.6 L (32.0-37.0) g/dL MPV 9.4 L (9.5-12.2) FL Immature Gran # 0.10 H (0.00-0.04) X 10*3/uL Monocytes # 1.10 H (0.20-1.00) X 10*3/uL Carbon Dioxide 19.8 L (21.6-31.8) mmol/L Anion Gap 14.20 H (4.00-12.00) mmol/L BUN 55.6 H (9.0-27.0) mg/dL Creatinine 3.0 H (0.6-1.5) mg/dL Est GFR (CKD-EPI) 15 L (>=60) Calcium 6.6 L (8.7-10.3) mg/dL
--- NOTE | 2024-04-19 13:19 | P.PN ---
Subjective Progress Note Date: 04/19/24 This is a 78-year-old female with past medical history significant for end-stage renal disease on hemodialysis 3 times weekly, still make urine, history of valvular heart disease, history of COPD who presented to ER with a complaint of sharp midsternal chest pain as well as right arm numbness while patient was receiving dialysis, it lasted about 5 minutes. Patient denied any nausea, shortness of breath, blurred vision, or diaphoresis,. Patient reported some dizziness with ambulation. Chest pain remained resolved. Patient denied any fever, chills, headache, nausea vomiting diarrhea constipation abdominal pain dysuria urgency frequency weakness of upper or lower extremities. Patient afebrile, heart rate 72, respiratory rate 16, blood pressure 108/71, saturating 94% on room air. WBC 7.7, hemoglobin 12.2, platelets 202. INR 0.9. Sodium 137, potassium 3.6, BUN 33, creatinine 1.43. Troponin negative x 3. EKG showed sinus rhythm with no acute ST/T wave changes. Chest x-ray negative for any acute process. Echocardiogram in October 2023 showed normal LV systolic function, mild MR and TR. Stress test in December 2023 showed small distal anterior ischemia. 04/18. Patient seen and examined. Patient underwent cardiac cath this afternoon, currently undergoing dialysis. 04/19. Patient seen examined. Patient complaining of right foot pain, states right leg is also swollen, has history of lymphedema.. REVIEW OF SYSTEMS: CONSTITUTIONAL: No fever, no malaise,. CARDIOVASCULAR: No chest pain, no palpitations, no syncope. PULMONARY: No shortness of breath, no cough, GASTROINTESTINAL: No diarrhea, no nausea, no vomiting, no abdominal pain. NEUROLOGICAL: No headaches, no weakness, PHYSICAL EXAMINATION: GENERAL: The patient is alert and oriented x3, not in any acute distress. Well developed, well nourished. HEENT: Pupils are round and equally reacting to light. EOMI. No scleral icterus. No conjunctival pallor. Normocephalic, atraumatic. No pharyngeal erythema. No thyromegaly. CARDIOVASCULAR: S1 and S2 present. No murmurs, rubs, or gallops. PULMONARY: Chest is clear to auscultation, no wheezing or crackles. ABDOMEN: Soft, nontender, nondistended, normoactive bowel sounds. No palpable organomegaly. MUSCULOSKELETAL: Tenderness right foot EXTREMITIES: No cyanosis, clubbing, or pedal edema. NEUROLOGICAL: Gross neurological examination did not reveal any focal deficits. SKIN: No rashes. Assessment and plan Chest pain: Presented with chest pain during hemodialysis, now resolved. Abnormal Lexiscan stress test in December 2023 with small distal anterior ischemia Troponin negative, EKG negative for acute changes. Cardiology following, patient had cardiac cath today showing normal coronary angiogram. End-stage renal disease on hemodialysis: Continue dialysis per nephrology Right foot pain Ordered ultrasound lower extremities Will order IV Solu-Medrol Labs and medication were reviewed.. Continue same treatment. Continue with symptomatic treatment. Resume home medication. Monitor labs and vitals. DVT and GI prophylaxis. Further recommendations as per clinical course of the patient Dictation was produced using [employer] dictation software. please excuse any grammatical, word or spelling errors. Objective - Vital Signs Vital signs: Vital Signs Temp 98.0 F 04/19/24 07:25 Pulse 80 04/19/24 07:25 Resp 15 04/19/24 07:25 BP 98/57 04/19/24 07:25 Pulse Ox 90 L 04/19/24 07:25 FiO2 Intake & Output 04/18/24 04/19/24 04/19/24 18:59 06:59 18:59 Intake Total 175 400 350 Output Total 1400 Balance 175 -1000 350 Intake: IV 175 Oral 0 350 Hemodialysis 400 Output: Hemodialysis 900 Hemodialysis Net Amount 500 Other: Voiding Method Toilet Toilet # Voids 1 2 - Labs CBC & Chem 7: 04/18/24 04:44 04/19/24 09:16
[2024-04-19] MEDS: ONDANSETRON 4 MG/2 ML VIAL IVP PRN (13:31)
--- NOTE | 2024-04-19 15:08 | P.PN ---
Subjective Progress Note Date: 04/17/24 Interval History: This is a 78-year-old female with past medical history significant for end-stage renal disease on hemodialysis 3 times weekly, still make urine, history of valvular heart disease, history of COPD who presented to ER with a complaint of sharp midsternal chest pain as well as right arm numbness while patient was receiving dialysis, it lasted about 5 minutes. Patient denied any nausea, s hortness of breath, blurred vision, or diaphoresis,. Patient reported some dizziness with ambulation. Chest pain remained resolved. Patient denied any fever, chills, headache, nausea vomiting diarrhea constipation abdominal pain dysuria urgency frequency weakness of upper or lower extremities. Patient afebrile, heart rate 72, respiratory rate 16, blood pressure 108/71, saturating 94% on room air. WBC 7.7, hemoglobin 12.2, platelets 202. INR 0.9. Sodium 137, potassium 3.6, BUN 33, creatinine 1.43. Troponin negative x 3. EKG showed sinus rhythm with no acute ST/T wave changes. Chest x-ray negative for any acute process. Echocardiogram in October 2023 showed normal LV systolic function, mild MR and TR. Stress test in December 2023 showed small distal anterior ischemia. 04/17/2024 Patient was seen and examined today. Patient had another episode of sharp chest pain radiating to both shoulders and arms overnight, relieved by nitro to some extent, lasting about half hour. Patient is afebrile, heart rate 81, respiratory rate 16, blood pressure 109/74, saturating 97% on room air. WBC 7.2, hemoglobin 9.9, platelets 153. Sodium 140, potassium 3.4, BUN 50.9, creatinine 2.9, calcium 6.7. VQ scanlow probability. Vascular surgery, nephrology and cardiology consulted and following. Assessment and plan: Chest pain: Presented with chest pain during hemodialysis, now resolved. Abnormal Lexiscan stress test in December 2023 with small distal anterior ischemia Troponin negative, EKG negative for acute changes. Recent echo showed valvular heart disease with normal EF. Aspirin, as needed nitroglycerin. D-dimer elevated1.32, VQ scan --low probability Cardiology consulted and following End-stage renal disease on hemodialysis: On hemodialysis Monday Still makes urine, restarted on dialysis November 2023, good urine output Continue home meds including Bumex. Concern for poor blood flow through right IJ permacath, vascular surgery consulted Nephrology consulted DVT prophylaxis Subcutaneous heparin Monitor vital signs and labs Labs and medication were reviewed. Continue same treatment. Further recommendations as per clinical course of the patient PHYSICAL EXAMINATION: GENERAL: The patient is A&O x3, NAD HEENT: EOMI, Sclerae anicteric, Moist Mucous membranes Neck: Supple, Non tender, No JVD PULMONARY: Equal breath souds B/L, No wheezing, No crackles. CARDIOVASCULAR: S1, S2 present. No murmurs, rubs, or gallops. ABDOMEN: Soft, nontender, nondistended, normoactive bowel sounds. No guarding or rebound tenderness. MUSCULOSKELETAL: No edema, No cyanosis. No clubbing. Normal ROM. Intact peripheral pulses. NEUROLOGICAL: CN 2-12 grossly intact. No FND Skin: No Rash REVIEW OF SYSTEMS: CONSTITUTIONAL: No fever or chills. CARDIOVASCULAR: No chest pain, palpitations or syncope. PULMONARY: No shortness of breath, no cough, sore throat. GASTROINTESTINAL: No nausea, vomiting, diarrhea, abdominal pain. : No Dysuria, urgency, frequency. Extremities: No edema. NEUROLOGICAL: No headaches, no weakness, or numbness Dictation was produced using [employer] dictation software. please excuse any grammatical, word or spelling errors. Objective - Vital Signs Vital signs: Vital Signs Temp 98.0 F 04/17/24 07:00 Pulse 81 04/17/24 07:00 Resp 16 04/17/24 07:00 BP 109/74 04/17/24 07:00 Pulse Ox 97 04/17/24 07:00 FiO2 Intake & Output 04/16/24 04/17/24 04/17/24 18:59 06:59 18:59 Intake Total 118 Balance 118 Weight 59.6 kg Intake: Oral 118 Other: Voiding Method Toilet Toilet # Voids 1 # Bowel Movements 0 - Labs CBC & Chem 7: 04/18/24 04:44 04/19/24 09:16 Labs: Abnormal Lab Results - Last 24 Hours (Table) 04/17/24 04/17/24 Range/Units 04:33 04:33 RBC 3.08 L (4.10-5.20) X 10*6/uL Hgb 9.9 L (12.0-15.0) g/dL Hct 31.6 L (37.2-46.3) % MCV 102.6 H (80.0-97.0) FL MCH 32.1 H (27.0-32.0) pg MCHC 31.3 L (32.0-37.0) g/dL MPV 9.3 L (9.5-12.2) FL Immature Gran # 0.15 H (0.00-0.04) X 10*3/uL Monocytes # 1.03 H (0.20-1.00) X 10*3/uL Potassium 3.4 L (3.5-5.5) mmol/L Carbon Dioxide 21.1 L (21.6-31.8) mmol/L Anion Gap 13.90 H (4.00-12.00) mmol/L BUN 50.9 H (9.0-27.0) mg/dL Creatinine 2.9 H (0.6-1.5) mg/dL Est GFR (CKD-EPI) 16 L (>=60) Calcium 6.7 L (8.7-10.3) mg/dL
--- NOTE | 2024-04-19 15:54 | US ---
EXAMINATION TYPE: US venous doppler duplex LE DATE OF EXAM: 04/19/2024 3:46 PM COMPARISON: NONE CLINICAL INDICATION: Female, 78 years old with history of swelling,; Right foot pain, left knee pain TECHNIQUE: The lower extremity deep venous system is examined utilizing real time linear array sonog barbara with graded compression, color doppler sonography, and spectral doppler. SIDE PERFORMED: bilateral FINDINGS: VESSELS IMAGED: Common Femoral Vein Deep Femoral Vein Greater Saphenous Vein * Femoral Vein Popliteal Vein Small Saphenous Vein * Proximal Calf Veins (* superficial vessels) Right Leg: No evidence of DVT as visualized, Color Doppler imaging shows patency of the vessels. Spe ctral waveforms are within normal limits. Left Leg: No evidence of DVT as visualized. patient unable to tolerate compression at lower femoral vein, Color Doppler imaging shows patency of the vessels. Spectral waveforms are within normal limits . IMPRESSION: No ultrasound evidence for deep venous thrombosis. [facility], , 04/19/2024 3:52 PM
[2024-04-19] MEDS: methylPREDNISolone SOD SUCCI 40 MG/ML 1 ML VIAL IV SCH (16:26)
--- NOTE | 2024-04-19 22:19 | P.PN ---
Subjective patient is seen for follow-up for end-stage renal disease. S/p new right IJ permacath placement yesterday. Status post cardiac catheterization with no evidence of obstructive coronary artery disease. Patient is seen on hemodialysis today. Tolerating treatment well. No significant UF. No complaints of chest pain. Objective - Vital Signs Vital signs: Vital Signs Temp 98.2 F 04/19/24 19:49 Pulse 76 04/19/24 20:00 Resp 18 04/19/24 19:49 BP 96/59 04/19/24 20:00 Pulse Ox 90 L 04/19/24 19:49 FiO2 Intake & Output 04/19/24 04/19/24 04/20/24 06:59 18:59 06:59 Intake Total 400 868 Output Total 1400 1400 Balance -1000 -532 Intake: Oral 468 Hemodialysis 400 400 Output: Hemodialysis 900 900 Hemodialysis Net Amount 500 500 Other: Voiding Method Toilet # Voids 2 1 - Exam On examination patient is comfortable awake alert oriented 3 alert and oriented 3 Examination of lower extremities shows edema chronic 1+ bilaterally Anus exam grossly intact - Labs CBC & Chem 7: 04/18/24 04:44 04/19/24 09:16 Assessment and Plan Assessment: 1. End-stage renal disease, maintained on hemodialysis on Monday schedule. S/p new right IJ permacath placement today 2. Chest pain being followed by cardiology. Status post cardiac catheterization on 04/18/2024 with no evidence of obstructive coronary artery disease 3. CK D mineral bone disorder 4. Hypokalemia from diarrhea, replaced Plan: Hemodialysis today. Replace potassium with dialysis
--- NOTE | 2024-04-20 13:02 | P.PN ---
Subjective Progress Note Date: 04/20/24 Patient is seen for follow-up for end-stage renal disease. Tolerated HD yesterday. On examination patient is comfortable awake alert oriented 3 alert and oriented 3 Examination of lower extremities shows edema chronic 1+ bilaterally Anus exam grossly intact Objective - Vital Signs Vital signs: Vital Signs Temp 97.7 F 04/20/24 07:40 Pulse 72 04/20/24 08:00 Resp 18 04/20/24 07:40 BP 101/61 04/20/24 07:40 Pulse Ox 91 L 04/20/24 07:40 FiO2 Intake & Output 04/19/24 04/20/24 04/20/24 18:59 06:59 18:59 Intake Total 868 360 358 Output Total 1400 2 Balance -532 358 358 Intake: Oral 468 360 358 Hemodialysis 400 Output: Urine 2 Hemodialysis 900 Hemodialysis Net Amount 500 Other: Voiding Method Toilet Toilet # Voids 1 1 # Bowel Movements 0 - Labs CBC & Chem 7: 04/18/24 04:44 04/19/24 09:16 Assessment and Plan Assessment: 1. End-stage renal disease, maintained on hemodialysis on Monday schedule. S/p new right IJ permacath placement 04/19 2. Chest pain being followed by cardiology. Status post cardiac catheterization on 04/18/2024 with no evidence of obstructive coronary artery disease 3. CKD mineral bone disorder 4. Hypokalemia from diarrhea, replaced Plan: Hemodialysis MWF schedule Replace potassium as needed
[2024-04-20 14:09] VITALS: BP 104/66; PULSE 82; RESP 16; TEMP 98
--- NOTE | 2024-04-20 14:55 | P.DS ---
Providers Date of admission: 04/15/24 20:04 Expected date of discharge: 04/20/24 Attending physician: Henna Lopez Consults: 04/15/24 20:03 Consult Physician Urgent Consulting Provider: Adalid Price Consult Reason/Comments: cp Do you want consulting provider notified?: Yes 04/16/24 10:10 Consult Physician Routine Consulting Provider: Abbey Wheeler Consult Reason/Comments: ESRD on HD Do you want consulting provider notified?: Yes 04/16/24 16:00 Consult Physician Routine Consulting Provider: Alejandro Montanez Consult Reason/Comments: Poor Blood flow through hemodialysis catheter Do you want consulting provider notified?: Yes Primary care physician: [facility] Hospital Course: Discharge diagnoses; Chest pain: Presented with chest pain during hemodialysis, now resolved. Abnormal Lexiscan stress test in December 2023 with small distal anterior ischemia Troponin negative, EKG negative for acute changes. Cardiology following, patient had cardiac cath today showing normal coronary angiogram. End-stage renal disease on hemodialysis: Continue dialysis per nephrology Right foot pain Ultrasound of lower extremities negative for DVT Right foot pain-resolved Hospital course; This is a 78-year-old female with past medical history significant for end-stage renal disease on hemodialysis 3 times weekly, still make urine, history of valvular heart disease, history of COPD who presented to ER with a complaint of sharp midsternal chest pain as well as right arm numbness while patient was receiving dialysis, it lasted about 5 minutes. Patient denied any nausea, shortness of breath, blurred vision, or diaphoresis,. Patient reported some dizziness with ambulation. Chest pain remained resolved. Patient denied any fever, chills, headache, nausea vomiting diarrhea constipation abdominal pain dysuria urgency frequency weakness of upper or lower extremities. Patient afebrile, heart rate 72, respiratory rate 16, blood pressure 108/71, saturating 94% on room air. WBC 7.7, hemoglobin 12.2, platelets 202. INR 0.9. Sodium 137, potassium 3.6, BUN 33, creatinine 1.43. Troponin negative x 3. EKG showed sinus rhythm with no acute ST/T wave changes. Chest x-ray negative for any acute process. Echocardiogram in October 2023 showed normal LV systolic function, mild MR and TR. Stress test in December 2023 showed small distal anterior ischemia. 04/18. Patient seen and examined. Patient underwent cardiac cath this afternoon, currently undergoing dialysis. 04/19. Patient seen examined. Patient complaining of right foot pain, states right leg is also swollen, has history of lymphedema.. 04/20. Patient seen and examined. States she is doing much better, only received 1 dose of steroids, uric acid was normal, keen to go home. Will follow-up outpatient with PCP PHYSICAL EXAMINATION: GENERAL: The patient is alert and oriented x3, not in any acute distress. Well developed, well nourished. HEENT: Pupils are round and equally reacting to light. EOMI. No scleral icterus. No conjunctival pallor. Normocephalic, atraumatic. No pharyngeal erythema. No thyromegaly. CARDIOVASCULAR: S1 and S2 present. No murmurs, rubs, or gallops. PULMONARY: Chest is clear to auscultation, no wheezing or crackles. ABDOMEN: Soft, nontender, nondistended, normoactive bowel sounds. No palpable organomegaly. MUSCULOSKELETAL: No joint swelling or deformity. EXTREMITIES: No cyanosis, clubbing, or pedal edema. NEUROLOGICAL: Gross neurological examination did not reveal any focal deficits. SKIN: No rashes. Dictation was produced using [employer] dictation software. please excuse any grammatical, word or spelling errors. Patient Condition at Discharge: Good Plan - Discharge Summary Discharge Rx Participant: No New Discharge Prescriptions: New Levothyroxine Sodium [Synthroid] 150 mcg PO DAILY@0600 #30 tab Continue Montelukast [Singulair] 10 mg PO HS FLUoxetine HCL [PROzac] 20 mg PO BID Omeprazole 40 mg PO AC-BID Sodium Bicarbonate Tab 1,950 mg PO W/SUPPER Loratadine 10 mg PO DAILY Methenamine Hippurate 1 gm PO BID Mirabegron [Myrbetriq] 25 mg PO DAILY metroNIDAZOLE [Flagyl] 250 mg PO DAILY Ergocalciferol [Vitamin D2 (1250 Mcg = 73934 Iu)] 1,250 mcg PO SUTUTHSA Gabapentin [Neurontin] 300 mg PO BID Bumetanide [BUMEX] 1 mg PO DAILY Sodium Bicarbonate Tab 1,300 mg PO BID-W/MEALS Calcium Acetate 668mg (169mg Calcium) Tab 668 mg PO DAILY PRN PRN Reason: WITH SNACKS calcitrioL 2 mcg PO MOWEFR Albuterol Inhaler [Ventolin Hfa Inhaler] 2 puff INHALATION RT-Q6H PRN PRN Reason: Shortness Of Breath Ipratropium-Albuterol Nebulize [Duoneb 0.5 mg-3 mg/3 ml Soln] 3 ml INHALATION RT-QID PRN PRN Reason: sob Calcium Acetate 668mg (169mg Calcium) Tab 2,004 mg PO TID-W/MEALS Cephalexin [Keflex] 500 mg PO DAILY Discharge Medication List FLUoxetine HCL [PROzac] 20 mg PO BID 08/23/18 [History] Montelukast [Singulair] 10 mg PO HS 08/23/18 [History] Omeprazole 40 mg PO AC-BID 11/19/18 [History] Sodium Bicarbonate Tab 1,950 mg PO W/SUPPER 07/22/19 [History] Loratadine 10 mg PO DAILY 12/06/19 [History] Methenamine Hippurate 1 gm PO BID 01/25/21 [History] Mirabegron [Myrbetriq] 25 mg PO DAILY 01/25/21 [History] Albuterol Inhaler [Ventolin Hfa Inhaler] 2 puff INHALATION RT-Q6H PRN 02/07/23 [History] calcitrioL 2 mcg PO MOWEFR 02/07/23 [History] Bumetanide [BUMEX] 1 mg PO DAILY 10/17/23 [History] Ergocalciferol [Vitamin D2 (1250 Mcg = 26194 Iu)] 1,250 mcg PO SUTUTHSA 10/17/23 [History] Gabapentin [Neurontin] 300 mg PO BID 10/17/23 [History] metroNIDAZOLE [Flagyl] 250 mg PO DAILY 10/17/23 [History] Ipratropium-Albuterol Nebulize [Duoneb 0.5 mg-3 mg/3 ml Soln] 3 ml INHALATION RT-QID PRN 01/04/24 [History] Calcium Acetate 668mg (169mg Calcium) Tab 2,004 mg PO TID-W/MEALS 04/15/24 [Hi story] Calcium Acetate 668mg (169mg Calcium) Tab 668 mg PO DAILY PRN 04/15/24 [History] Cephalexin [Keflex] 500 mg PO DAILY 04/15/24 [History] Sodium Bicarbonate Tab 1,300 mg PO BID-W/MEALS 04/15/24 [History] Levothyroxine Sodium [Synthroid] 150 mcg PO DAILY@0600 #30 tab 04/18/24 [Rx] Follow up Appointment(s)/Referral(s): Adalid Price MD [STAFF PHYSICIAN] - 2 Weeks Bienvenido Hogue MD [Primary Care Provider] - 1-2 days Discharge Disposition: HOME SELF-CARE
== END 2024-04-20 14:40 | disposition home or self-care (01) ==
LOC: EC 18:31 → 6NMEDSUR 20:04
PROVIDERS: ADMIT Hospitalist; ATTEND Hospitalist
DX: R07.2 Precordial pain (principal); T82.41XA Breakdown (mechanical) of vascular dialysis catheter, initial encounter; Y71.2 Prosthetic and other implants, materials and accessory cardiovascular devices associated with adverse incidents; N18.6 End stage renal disease; I08.1 Rheumatic disorders of both mitral and tricuspid valves; R42 Dizziness and giddiness; R19.7 Diarrhea, unspecified; E87.6 Hypokalemia; J44.9 Chronic obstructive pulmonary disease, unspecified; M79.671 Pain in right foot; M89.8X9 Other specified disorders of bone, unspecified site; Z79.51 Long term (current) use of inhaled steroids; Z79.899 Other long term (current) drug therapy; Z79.890 Hormone replacement therapy; Z88.1 Allergy status to other antibiotic agents; Z88.2 Allergy status to sulfonamides; Z88.5 Allergy status to narcotic agent; Z91.048 Other nonmedicinal substance allergy status; Z99.2 Dependence on renal dialysis
CPT/HCPCS: 99285; 36415; 94640; 93005 ×2; 93458; 36581; 85379; 80061; 80053; 80048 ×2; 83735; 84132; 84550; 84484 ×2; 85025 ×3; 85610; 85730; 71046; 93970; 78582; G0378 ×6; C1769; C1894; A9540; A9567; J2250; J1644 ×3; J2405; J0690; J2003; J2997; Q9967; J3010; J2919 ×2; 90935

== ENCOUNTER 2024-04-24 15:14 | Emergency (ER) | payer MEDICARE ==
[2024-04-24 15:31] VITALS: RESP 18
--- NOTE | 2024-04-24 15:37 | ED ---
Recheck HPI - General Source: patient, RN notes reviewed Mode of arrival: ambulatory Limitations: no limitations <Imani William - Last Filed: 04/24/24 15:35> - General Source: patient, RN notes reviewed Mode of arrival: ambulatory Limitations: no limitations - History of Present Illness Onset/Timin -: days(s) Associated Symptoms: none <Eddie Centeno - Last Filed: 04/24/24 17:57> - General Chief Complaint: Recheck/Abnormal Lab/Rx Stated Complaint: bruising, post op Time Seen by Provider: 04/24/24 15:30 - History of Present Illness Initial Comments: Quick Note: This is a 78-year-old female who presents to the emergency department for problems with her dialysis port. She had a dialysis port put in the right chest wall a week ago. She went to dialysis today and they were concerned that it did not look right. They did not attempt to use it, states that they sent her here for evaluation by vascular surgery. (Imani William) This is a 8-year-old female presenting with dialysis port issues x 3 days. Patient states she receives surgical implantation of the port by Dr. Casas last week and was discharged from a hospital this past Monday. Patient states she has not visually seen out of the port and the skin around the port appears since her discharge and is unsure when the bruising started. States she received dialysis through the port with minor issues but it was successful. Patient states she then went to dialysis today and based on how long the surrounding skin of the port appeared, no attempt was made to perform dialysis. Patient was advised to go to the ER to consult vascular surgery for evaluation of the port. Patient states she is having pain when lying on her right side. Patient denies fever, chills, active bleeding, discharge, erythema, localized tenderness, warmth, chest pain, dyspnea. (Eddie Centeno) - Related Data Home Medications Medication Instructions Recorded Confirmed FLUoxetine HCL [PROzac] 20 mg PO BID 08/23/18 04/15/24 Montelukast [Singulair] 10 mg PO HS 08/23/18 04/15/24 Omeprazole 40 mg PO AC-BID 11/19/18 04/15/24 Sodium Bicarbonate Tab 1,950 mg PO W/SUPPER 07/22/19 04/15/24 Loratadine 10 mg PO DAILY 12/06/19 04/15/24 Methenamine Hippurate 1 gm PO BID 01/25/21 04/15/24 Mirabegron [Myrbetriq] 25 mg PO DAILY 01/25/21 04/15/24 Albuterol Inhaler [Ventolin Hfa 2 puff INHALATION RT-Q6H PRN 02/07/23 04/15/24 Inhaler] calcitrioL 2 mcg PO MOWEFR 02/07/23 04/15/24 Bumetanide [BUMEX] 1 mg PO DAILY 10/17/23 04/15/24 Ergocalciferol [Vitamin D2 (1250 1,250 mcg PO SUTUTHSA 10/17/23 04/15/24 Mcg = 43872 Iu)] Gabapentin [Neurontin] 300 mg PO BID 10/17/23 04/15/24 metroNIDAZOLE [Flagyl] 250 mg PO DAILY 10/17/23 04/15/24 Ipratropium-Albuterol Nebulize 3 ml INHALATION RT-QID PRN 01/04/24 04/15/24 [Duoneb 0.5 mg-3 mg/3 ml Soln] Calcium Acetate 668mg (169mg 2,004 mg PO TID-W/MEALS 04/15/24 04/15/24 Calcium) Tab Calcium Acetate 668mg (169mg 668 mg PO DAILY PRN 04/15/24 04/15/24 Calcium) Tab Cephalexin [Keflex] 500 mg PO DAILY 04/15/24 04/15/24 Sodium Bicarbonate Tab 1,300 mg PO BID-W/MEALS 04/15/24 04/15/24 Previous Rx's Medication Instructions Recorded Levothyroxine Sodium [Synthroid] 150 mcg PO DAILY@0600 #30 tab 04/18/24 Allergies Allergy/AdvReac Type Severity Reaction Status Date / Time adhesive tape Allergy Rash/Hives Verified 04/24/24 15:28 Sulfa (Sulfonamide Allergy Itching Verified 04/24/24 15:28 Antibiotics) codeine AdvReac Nausea Verified 04/24/24 15:28 tetracycline AdvReac Nausea & Verified 04/24/24 15:28 Vomiting Review of Systems ROS Other: All systems not noted in ROS Statement are negative. <Imani William - Last Filed: 04/24/24 15:35> ROS Other: All systems not noted in ROS Statement are negative. <Eddie Centeno - Last Filed: 04/24/24 17:57> ROS Statement: Those systems with pertinent positive or pertinent negative responses have been documented in the HPI. Past Medical History Past Medical History: Asthma, Cancer, COPD, Osteoarthritis (OA), Renal Disease, Thyroid Disorder Additional Past Medical History / Comment(s): hemodialysis MOWEFR 3 1/2 hours,dialysis cath rt chest, kidney stones and UTI, hx lymphedema, hx pulmonary fibrosis, hx graves,hx rt foot torn ligaments, hx osteoporosis,hypotension, has O2 available at home but has not needed in 6months; vitamin D deficiency, hypocalcemia,. SKIN CANCER REMOVED FROM BRIDGE OF NOSE., PMR - polymyalgia rhematalia History of Any Multi-Drug Resistant Organisms: CRE Date of last positivie culture/infection: 10/16/18 MDRO-CRE PER [facility] NOT [facility] MDRO Source:: Urine Past Surgical History: Bariatric Surgery Additional Past Surgical History / Comment(s): hx bariatric surgery-Kye En Y,lung biopsy,radioactive iodine-tx thyroid,rectal and bladder suspensions,vaginal surgery as a child,partha carpel tunnel,rt knee meniscus repair,D&C x3, left arm fistula 02/08/19 (not working), left broken wrist, broken right wrist Past Anesthesia/Blood Transfusion Reactions: Previous Problems w/ Anesthesia, Postoperative Nausea & Vomiting (PONV) Additional Past Anesthesia/Blood Transfusion Reaction / Comment(s): decrease bp with anesthesia,no problems with prior blood transfusion Past Psychological History: No Psychological Hx Reported Smoking Status: Never smoker Past Alcohol Use History: None Reported Past Drug Use History: None Reported - Past Family History Father Family Medical History: Pulmonary Embolus Additional Family Medical History / Comment(s): . Mother Family Medical History: Cancer Additional Family Medical History / Comment(s): . Sister(s) Family Medical History: Cancer Additional Family Medical History / Comment(s): . Daughter(s) Additional Family Medical History / Comment(s): lymphedema in legs Brother(s) Family Medical History: Cancer Additional Family Medical History / Comment(s): skin cancer <Imani William - Last Filed: 04/24/24 15:35> General Exam Limitations: no limitations <Imani William - Last Filed: 04/24/24 15:35> Limitations: no limitations General appearance: alert, in no apparent distress Head exam: Present: atraumatic, normocephalic, normal inspection Eye exam: Present: normal appearance, PERRL, EOMI. Absent: scleral icterus, conjunctival injection, periorbital swelling ENT exam: Present: normal exam, mucous membranes moist Neck exam: Present: normal inspection. Absent: tenderness, meningismus, lymphadenopathy Respiratory exam: Present: normal lung sounds bilaterally. Absent: respiratory distress, wheezes, rales, rhonchi, stridor Cardiovascular Exam: Present: regular rate, normal rhythm, normal heart sounds. Absent: systolic murmur, diastolic murmur, rubs, gallop, clicks GI/Abdominal exam: Present: soft, normal bowel sounds. Absent: distended, tenderness, guarding, rebound, rigid Extremities exam: Present: normal inspection, full ROM, normal capillary refill. Absent: tenderness, pedal edema, joint swelling, calf tenderness Back exam: Present: normal inspection Neurological exam: Present: alert, oriented X3, CN II-XII intact Psychiatric exam: Present: normal affect, normal mood Skin exam: Present: warm, dry, intact, other (Dialysis port noted in right anterior chest wall with diffuse surrounding ecchymosis and 2 centimeter hematoma/bulging superior to port. Negative TTP, erythema, warmth, tenderness, discharge, active bleeding). Absent: rash <Eddie Centeno - Last Filed: 04/24/24 17:57> - General Exam Comments Initial Comments: Visual Physical Exam Vital signs reviewed General: Well-appearing, nontoxic, no acute distress. Head: Normocephalic, atraumatic Eyes: PERRLA, EOMI ENT: Airway patent Chest: Nonlabored breathing Skin: No visual rash, normal skin tone Neuro: Alert and oriented 3 Musculoskeletal: No gross abnormalities (Imani William) Course Vital Signs 04/24/24 15:28 Temperature 97.4 F L Pulse Rate 76 Respiratory 18 Rate Blood Pressure 162/94 O2 Sat by Pulse 96 Oximetry Medical Decision Making <Imani William - Last Filed: 04/24/24 15:35> - Lab Data Result diagrams: 04/24/24 16:32 04/24/24 16:32 <Eddie Centeno - Last Filed: 04/24/24 17:57> - Medical Decision Making I performed the QuickNote portion of this chart. Signed Imani William PA-C. (Imani William) Was pt. sent in by a medical professional or institution (ANUPAM Roche, LAMINATION TECHNICIAN, urgent c are, hospital, or [facility]...) When possible be specific @ -[No] Did you speak to anyone other than the patient for history (EMS, parent, family, police, friend...)? What history was obtained from this source @ -[No] Did you review nursing and triage notes (agree or disagree)? Why? @ -[I reviewed and agree with nursing and triage notes] Were old charts reviewed (outside hosp., previous admission, EMS record, old EKG, old radiological studies, urgent care reports/EKG's, [facility] records)? Report findings @ -[No old charts were reviewed] Differential Diagnosis (chest pain, altered mental status, abdominal pain women, abdominal pain men, vaginal bleeding, weakness, fever, dyspnea, syncope, headache, dizziness, GI bleed, back pain, seizure, CVA, palpatations, mental health, musculoskeletal)? @ -Localized ecchymosis, hematoma, improperly placed dialysis port, cellulitis EKG interpreted by me (3pts min.). @ -Not done X-rays interpreted by me (1pt min.). @ -[None done] CT interpreted by me (1pt min.). @ -[None done] U/S interpreted by me (1pt. min.). @ -[None done] What testing was considered but not performed or refused? (CT, X-rays, U/S, labs)? Why? @ -[None] What meds were considered but not given or refused? Why? @ -[None] Did you discuss the management of the patient with other professionals (professionals i.e. ANUPAM Roche, LAMINATION TECHNICIAN, lab, RT, psych nurse, marriage and family social worker, plastic outfitter, teacher, benefits officer, major case detective)? Give summary @ -Yes consulted Dr. Casas who agreed to evaluate patient and dialysis port in the ER. Was smoking cessation discussed for >3mins.? @ -[No] Was critical care preformed (if so, how long)? @ -[No] Were there social determinants of health that impacted care today? How? (Homelessness, low income, unemployed, alcoholism, drug addiction, transportati on, low edu. Level, literacy, decrease access to med. care, penitentiary, rehab)? @ -[No] Was there de-escalation of care discussed even if they declined (Discuss DNR or withdrawal of care, Hospice)? DNR status @ -[No] What co-morbidities impacted this encounter? (DM, HTN, Smoking, COPD, CAD, Cancer, CVA, ARF, Chemo, Hep., AIDS, mental health diagnosis, sleep apnea, morbid obesity)? @ -[None] Was patient admitted / discharged? Hospital course, mention meds given and route, prescriptions, significant lab abnormalities, going to OR and other pertinent info. @ -Lab work was generally unremarkable. Dr. Casas was called and agreed to see patient in ER for evaluation. Undiagnosed new problem with uncertain prognosis? @ -[No] Drug Therapy requiring intensive monitoring for toxicity (Heparin, Nitro, Insu diallo, Cardizem)? @ -[No] Were any procedures done? @ -[No] Diagnosis/symptom? @ -[default] Acute, or Chronic, or Acute on Chronic? @ -Acute Uncomplicated (without systemic symptoms) or Complicated (systemic symptoms)? @ -Uncomplicated Side effects of treatment? @ -[No] Exacerbation, Progression, or Severe Exacerbation? @ -[No] Poses a threat to life or bodily function? How? (Chest pain, [place], [place], pneumonia, PE, COPD, DKA, ARF, appy, cholecystitis, CVA, Diverticulitis, Homicidal, Suicidal, threat to staff... and all critical care pts) @ -[No] (Eddie Centeno) - Lab Data Lab Results 04/24/24 04/24/24 04/24/24 Range/Units 16:32 16:32 16:32 WBC 8.6 (3.8-10.6) k/uL RBC 3.89 (3.80-5.40) m/uL Hgb 12.5 (11.4-16.0) gm/dL Hct 40.7 (34.0-46.0) % MCV 104.7 H (80.0-100.0) fL MCH 32.1 (25.0-35.0) pg MCHC 30.6 L (31.0-37.0) g/dL RDW 13.1 (11.5-15.5) % Plt Count 258 (150-450) k/uL MPV 7.6 Neutrophils % 88 % Lymphocytes % 9 % Monocytes % 2 % Eosinophils % 0 % Basophils % 0 % Neutrophils # 7.6 (1.3-7.7) k/uL Lymphocytes # 0.8 L (1.0-4.8) k/uL Monocytes # 0.2 (0-1.0) k/uL Eosinophils # 0.0 (0-0.7) k/uL Basophils # 0.0 (0-0.2) k/uL Hypochromasia Moderate Macrocytosis Slight PT 10.0 (10.0-12.5) sec INR 0.9 (<1.2) APTT 22.5 (22.0-30.0) sec Sodium 137 (137-145) mmol/L Potassium 4.5 (3.5-5.1) mmol/L Chloride 101 (98-107) mmol/L Carbon Dioxide 22 (22-30) mmol/L Anion Gap 14 mmol/L BUN 55 H (7-17) mg/dL Creatinine 2.85 H (0.52-1.04) mg/dL Est GFR (CKD-EPI)AfAm 17 (>60 ml/min/1.73 sqM) Est GFR (CKD-EPI)NonAf 15 (>60 ml/min/1.73 sqM) Glucose 107 H (74-99) mg/dL Calcium 8.7 (8.4-10.2) mg/dL Total Bilirubin 0.9 (0.2-1.3) mg/dL AST 32 (14-36) U/L ALT 21 (4-34) U/L Alkaline Phosphatase 68 (38-126) U/L Total Protein 8.2 (6.3-8.2) g/dL Albumin 4.9 (3.5-5.0) g/dL Disposition <Imani William - Last Filed: 04/24/24 15:35> Is patient prescribed a controlled substance at d/c from ED?: No Time of Disposition: 17:57 <Eddie Centeno - Last Filed: 04/24/24 17:57> Clinical Impression: Status post insertion of dialysis catheter Disposition: HOME SELF-CARE Condition: Good Referrals: Bienvenido Hogue MD [Primary Care Provider] - 1-2 days
[2024-04-24 16:50] LABS: Basophils % (A) 0 %; Eosinophils % (A) 0 %; HCT 40.7 % (34.0-46.0); HGB 12.5 gm/dL (11.4-16.0); Hypochromasia Moderate; Lymphocytes # (A) 0.8 k/uL (1.0-4.8); Lymphocytes % (A) 9 %; MCH 32.1 pg (25.0-35.0); MCHC 30.6 g/dL (31.0-37.0); MCV 104.7 fL (80.0-100.0); Macrocytosis Slight; Mean Platelet Volume 7.6; Monocytes # (A) 0.2 k/uL (0-1.0); Monocytes % (A) 2 %; Neutrophils # (A) 7.6 k/uL (1.3-7.7); Neutrophils % (A) 88 %; Platelet Count 258 k/uL (150-450); RBC 3.89 m/uL (3.80-5.40); RDW 13.1 % (11.5-15.5); WBC 8.6 k/uL (3.8-10.6)
[2024-04-24 16:54] LABS: ALT 21 U/L (4-34); African American GFR (CKD) 17 (>60 ml/min/1.73 sqM); Albumin 4.9 g/dL (3.5-5.0); Anion Gap 14 mmol/L; Blood Urea Nitrogen 55 mg/dL (7-17); Calcium 8.7 mg/dL (8.4-10.2); Carbon Dioxide 22 mmol/L (22-30); Chloride 101 mmol/L (98-107); Glucose 107 mg/dL (74-99); Non-African American GFR(CKD) 15 (>60 ml/min/1.73 sqM); Sodium 137 mmol/L (137-145); Total Bilirubin 0.9 mg/dL (0.2-1.3); Total Protein 8.2 g/dL (6.3-8.2)
[2024-04-24 17:03] LABS: INR 0.9 (<1.2); Partial Thromboplastin Time 22.5 sec (22.0-30.0)
[2024-04-24 17:12] LABS: AST 32 U/L (14-36); Alkaline Phosphatase 68 U/L (38-126); Potassium 4.5 mmol/L (3.5-5.1)
--- NOTE | 2024-04-24 18:06 | P.GSCN ---
History of Present Illness Consult date: 04/24/24 History of present illness: Bao is a 78-year-old female in today for evaluation of her tunneled dialysis catheter. She was sent in by her dialysis unit for the way the catheter looked and issues with function reportedly. They did not try to utilize it today, but just noticed her significant bruising and sent her in. She recently had the catheter replaced and at that time had a skin tear with some mild oozing of the area which seem to be controlled and functioning well in the hospital. She denies any fevers, chills, nausea, vomiting or issues otherwise Past Medical History Past Medical History: Asthma, Cancer, COPD, Osteoarthritis (OA), Renal Disease, Thyroid Disorder Additional Past Medical History / Comment(s): hemodialysis MOWEFR 3 1/2 hours,dialysis cath rt chest, kidney stones and UTI, hx lymphedema, hx pulmonary fibrosis, hx graves,hx rt foot torn ligaments, hx osteoporosis,hypotension, has O2 available at home but has not needed in 6months; vitamin D deficiency, hypocalcemia,. 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 PER [facility] NOT [facility] MDRO Source:: Urine Past Surgical History: Bariatric Surgery Additional Past Surgical History / Comment(s): hx bariatric surgery-Kye En Y,lung biopsy,radioactive iodine-tx thyroid,rectal and bladder s uspensions,vaginal surgery as a child,partha carpel tunnel,rt knee meniscus repair,D&C x3, left arm fistula 02/08/19 (not working), left broken wrist, broken right wrist Past Anesthesia/Blood Transfusion Reactions: Previous Problems w/ Anesthesia, Postoperative Nausea & Vomiting (PONV) Additional Past Anesthesia/Blood Transfusion Reaction / Comm: decrease bp with anesthesia,no problems with prior blood transfusion Past Psychological History: No Psychological Hx Reported Smoking Status: Never smoker Past Alcohol Use History: None Reported Past Drug Use History: None Reported - Past Family History Father Family Medical History: Pulmonary Embolus Additional Family Medical History / Comment(s): . Mother Family Medical History: Cancer Additional Family Medical History / Comment(s): . Sister(s) Family Medical History: Cancer Additional Family Medical History / Comment(s): . Daughter(s) Additional Family Medical History / Comment(s): lymphedema in legs Brother(s) Family Medical History: Cancer Additional Family Medical History / Comment(s): skin cancer Medications and Allergies Home Medications Medication Instructions Recorded Confirmed Type FLUoxetine HCL [PROzac] 20 mg PO BID 08/23/18 04/15/24 History Montelukast [Singulair] 10 mg PO HS 08/23/18 04/15/24 History Omeprazole 40 mg PO AC-BID 11/19/18 04/15/24 History Sodium Bicarbonate Tab 1,950 mg PO W/SUPPER 07/22/19 04/15/24 History Loratadine 10 mg PO DAILY 12/06/19 04/15/24 History Methenamine Hippurate 1 gm PO BID 01/25/21 04/15/24 History Mirabegron [Myrbetriq] 25 mg PO DAILY 01/25/21 04/15/24 History Albuterol Inhaler [Ventolin Hfa 2 puff INHALATION RT-Q6H PRN 02/07/23 04/15/24 History Inhaler] calcitrioL 2 mcg PO MOWEFR 02/07/23 04/15/24 History Bumetanide [BUMEX] 1 mg PO DAILY 10/17/23 04/15/24 History Ergocalciferol [Vitamin D2 (1250 1,250 mcg PO SUTUTHSA 10/17/23 04/15/24 History Mcg = 75051 Iu)] Gabapentin [Neurontin] 300 mg PO BID 10/17/23 04/15/24 History metroNIDAZOLE [Flagyl] 250 mg PO DAILY 10/17/23 04/15/24 History Ipratropium-Albuterol Nebulize 3 ml INHALATION RT-QID PRN 01/04/24 04/15/24 H istory [Duoneb 0.5 mg-3 mg/3 ml Soln] Calcium Acetate 668mg (169mg 2,004 mg PO TID-W/MEALS 04/15/24 04/15/24 History Calcium) Tab Calcium Acetate 668mg (169mg 668 mg PO DAILY PRN 04/15/24 04/15/24 History Calcium) Tab Cephalexin [Keflex] 500 mg PO DAILY 04/15/24 04/15/24 History Sodium Bicarbonate Tab 1,300 mg PO BID-W/MEALS 04/15/24 04/15/24 History Levothyroxine Sodium [Synthroid] 150 mcg PO DAILY@0600 #30 tab 04/18/24 Rx Allergies Allergy/AdvReac Type Severity Reaction Status Date / Time adhesive tape Allergy Rash/Hives Verified 04/24/24 15:28 Sulfa (Sulfonamide Allergy Itching Verified 04/24/24 15:28 Antibiotics) codeine AdvReac Nausea Verified 04/24/24 15:28 tetracycline AdvReac Nausea & Verified 04/24/24 15:28 Vomiting Surgical - Exam Vital Signs Temp Pulse Resp BP Pulse Ox 97.4 F L 76 18 162/94 96 04/24/24 15:28 04/24/24 15:28 04/24/24 15:28 04/24/24 15:28 04/24/24 15:28 General is a pleasant cooperative female in no acute distress, chronically ill- appearing. HEENT is normocephalic, atraumatic, extraocular motion intact. Hear t appears regular. Lungs are clear. Abdomen is soft. Right chest wall catheter is clean dry and intact. There is moderate ecchymosis with a small likely hematoma contained more proximally. No erythema. No drainage. Sutures intact. The catheter is aspirated and flushed freely without significant issue. The heparinized lock was then placed. Dressing was placed. Results - Labs 04/24/24 16:32 04/24/24 16:32 Abnormal Lab Results - Last 24 Hours (Table) 04/24/24 04/24/24 Range/Units 16:32 16:32 MCV 104.7 H (80.0-100.0) fL MCHC 30.6 L (31.0-37.0) g/dL Lymphocytes # 0.8 L (1.0-4.8) k/uL BUN 55 H (7-17) mg/dL Creatinine 2.85 H (0.52-1.04) mg/dL Glucose 107 H (74-99) mg/dL Diabetes panel 04/24/24 Range/Units 16:32 Sodium 137 (137-145) mmol/L Potassium 4.5 (3.5-5.1) mmol/L Chloride 101 (98-107) mmol/L Carbon Dioxide 22 (22-30) mmol/L BUN 55 H (7-17) mg/dL Creatinine 2.85 H (0.52-1.04) mg/dL Glucose 107 H (74-99) mg/dL Calcium 8.7 (8.4-10.2) mg/dL AST 32 (14-36) U/L ALT 21 (4-34) U/L Alkaline Phosphatase 68 (38-126) U/L Total Protein 8.2 (6.3-8.2) g/dL Albumin 4.9 (3.5-5.0) g/dL Calcium panel 04/24/24 Range/Units 16:32 Calcium 8.7 (8.4-10.2) mg/dL Albumin 4.9 (3.5-5.0) g/dL Pituitary panel 04/24/24 Range/Units 16:32 Sodium 137 (137-145) mmol/L Potassium 4.5 (3.5-5.1) mmol/L Chloride 101 (98-107) mmol/L Carbon Dioxide 22 (22-30) mmol/L BUN 55 H (7-17) mg/dL Creatinine 2.85 H (0.52-1.04) mg/dL Glucose 107 H (74-99) mg/dL Calcium 8.7 (8.4-10.2) mg/dL Adrenal panel 04/24/24 Range/Units 16:32 Sodium 137 (137-145) mmol/L Potassium 4.5 (3.5-5.1) mmol/L Chloride 101 (98-107) mmol/L Carbon Dioxide 22 (22-30) mmol/L BUN 55 H (7-17) mg/dL Creatinine 2.85 H (0.52-1.04) mg/dL Glucose 107 H (74-99) mg/dL Calcium 8.7 (8.4-10.2) mg/dL Total Bilirubin 0.9 (0.2-1.3) mg/dL AST 32 (14-36) U/L ALT 21 (4-34) U/L Alkaline Phosphatase 68 (38-126) U/L Total Protein 8.2 (6.3-8.2) g/dL Albumin 4.9 (3.5-5.0) g/dL Assessment and Plan Assessment: End-stage renal disease Chest wall ecchymosis, recently replaced dialysis catheter Plan: I was able to evaluate Bao and her catheter in the ER. It appears to be functioning fine without any significant issue upon my evaluation. There is a modest amount of bruising however she did just recently have it replaced and overall I am not overly concerned that she is not continuing to have any bleeding or oozing. It is likely that it was all just contained under the skin from the time of her dialysis catheter exchange. She does have a small skin tear at the level of the previous catheter which is known and looks similar to previous. Will continue with his dialysis catheter, may be discharged from my standpoint. May utilize ice and compresses. May utilize catheter.
[2024-04-24 18:12] VITALS: BP 148/86; PULSE 74; TEMP 97.6
== END 2024-04-24 18:11 | disposition home or self-care (01) ==
LOC: EC 15:14
DX: S20.219A Contusion of unspecified front wall of thorax, initial encounter (principal); N18.6 End stage renal disease; Z99.2 Dependence on renal dialysis; Z88.2 Allergy status to sulfonamides; Z88.5 Allergy status to narcotic agent; Z88.1 Allergy status to other antibiotic agents; Z88.8 Allergy status to other drugs, medicaments and biological substances; X58.XXXA Exposure to other specified factors, initial encounter
CPT/HCPCS: 36415; 80053; 85025; 85610; 85730; 99284

== ENCOUNTER 2024-04-28 12:24 | Observation (INO) | payer MEDICARE ==
--- NOTE | 2024-04-28 13:16 | ED ---
General Adult HPI - General Chief complaint: Recheck/Abnormal Lab/Rx Stated complaint: Dialysis cath issue Time Seen by Provider: 04/28/24 12:40 Source: patient, family, RN notes reviewed Mode of arrival: ambulatory Limitations: no limitations - History of Present Illness Initial comments: Patient is a 78-year-old female presenting to the emergency department with concern for function of her dialysis catheter. Patient had this exchanged 10 days ago. Patient did have some bruising. Patient was in the ER and had it evaluated and was determined to be functional several days ago. Patient states today she went to dialysis and they were able to draw blood however with injection there was concern for leakage. Patient did develop swelling under her skin. Patient has discomfort of this area only with touch. Patient does have some bruising however states that is old bruising. - Related Data Home Medications Medication Instructions Recorded Confirmed FLUoxetine HCL [PROzac] 20 mg PO BID 08/23/18 04/28/24 Montelukast [Singulair] 10 mg PO HS 08/23/18 04/28/24 Omeprazole 40 mg PO AC-BID 11/19/18 04/28/24 Sodium Bicarbonate Tab 1,950 mg PO W/SUPPER 07/22/19 04/28/24 Loratadine 10 mg PO DAILY 12/06/19 04/28/24 Methenamine Hippurate 1 gm PO BID 01/25/21 04/28/24 Mirabegron [Myrbetriq] 25 mg PO DAILY 01/25/21 04/28/24 Albuterol Inhaler [Ventolin Hfa 2 puff INHALATION RT-Q6H PRN 02/07/23 04/28/24 Inhaler] calcitrioL 2 mcg PO MOWEFR 02/07/23 04/28/24 Bumetanide [BUMEX] 1 mg PO DAILY 10/17/23 04/28/24 Ergocalciferol [Vitamin D2 (1250 1,250 mcg PO SUTUTHSA 10/17/23 04/28/24 Mcg = 47125 Iu)] Gabapentin [Neurontin] 300 mg PO BID 10/17/23 04/28/24 metroNIDAZOLE [Flagyl] 250 mg PO DAILY 10/17/23 04/28/24 Ipratropium-Albuterol Nebulize 3 ml INHALATION RT-QID PRN 01/04/24 04/28/24 [Duoneb 0.5 mg-3 mg/3 ml Soln] Calcium Acetate 668mg (169mg 2,004 mg PO TID-W/MEALS 04/15/24 04/28/24 Calcium) Tab Calcium Acetate 668mg (169mg 668 mg PO DAILY PRN 04/15/24 04/28/24 Calcium) Tab Cephalexin [Keflex] 500 mg PO DAILY 04/15/24 04/28/24 Sodium Bicarbonate Tab 1,300 mg PO BID-W/MEALS 04/15/24 04/28/24 Levothyroxine Sodium [Synthroid] 150 mcg PO DAILY 04/28/24 04/28/24 Midodrine HCl [ProAmatine] 10 mg PO TID PRN 04/28/24 04/28/24 predniSONE See Taper PO DAILY 04/28/24 04/28/24 Allergies Allergy/AdvReac Type Severity Reaction Status Date / Time adhesive tape Allergy Rash/Hives Verified 04/28/24 13:43 Sulfa (Sulfonamide Allergy Itching Verified 04/28/24 13:43 Antibiotics) codeine AdvReac Nausea Verified 04/28/24 13:43 tetracycline AdvReac Nausea & Verified 04/28/24 13:43 Vomiting Review of Systems ROS Statement: Those systems with pertinent positive or pertinent negative responses have been documented in the HPI. ROS Other: All systems not noted in ROS Statement are negative. Constitutional: Denies: fever Eyes: Denies: eye pain ENT: Denies: ear pain Respiratory: Denies: cough, dyspnea Cardiovascular: Denies: chest pain Skin: Reports: as per HPI Past Medical History Past Medical History: Asthma, Cancer, COPD, Osteoarthritis (OA), Renal Disease, Thyroid Disorder Additional Past Medical History / Comment(s): hemodialysis MOWEFR 3 1/2 hours,dialysis cath rt chest, kidney stones and UTI, hx lymphedema, hx pulmonary fibrosis, hx graves,hx rt foot torn ligaments, hx osteoporosis,hypotension, has O2 available at home but has not needed in 6months; vitamin D deficiency, hypocalcemia,. SKIN CANCER REMOVED FROM BRIDGE OF NOSE., PMR - polymyalgia rhematalia History of Any Multi-Drug Resistant Organisms: CRE Date of last positivie culture/infection: 10/16/18 MDRO-CRE PER [facility] NOT C MDRO Source:: Urine Past Surgical History: Bariatric Surgery Additional Past Surgical History / Comment(s): hx bariatric surgery-Kye En Y,lung biopsy,radioactive iodine-tx thyroid,rectal and bladder suspensions,vaginal surgery as a child,partha carpel tunnel,rt knee meniscus repair,D&C x3, left arm fistula 02/08/19 (not working), left broken wrist, broken right wrist Past Anesthesia/Blood Transfusion Reactions: Previous Problems w/ Anesthesia, Postoperative Nausea & Vomiting (PONV) Additional Past Anesthesia/Blood Transfusion Reaction / Comment(s): decrease bp with anesthesia,no problems with prior blood transfusion Past Psychological History: No Psychological Hx Reported Smoking Status: Never smoker Past Alcohol Use History: None Reported Past Drug Use History: None Reported - Past Family History Father Family Medical History: Pulmonary Embolus Additional Family Medical History / Comment(s): . Mother Family Medical History: Cancer Additional Family Medical History / Comment(s): . Sister(s) Family Medical History: Cancer Additional Family Medical History / Comment(s): . Daughter(s) Additional Family Medical History / Comment(s): lymphedema in legs Brother(s) Family Medical History: Cancer Additional Family Medical History / Comment(s): skin cancer General Exam Limitations: no limitations General appearance: alert, in no apparent distress Head exam: Present: normocephalic Eye exam: Present: normal appearance Neck exam: Present: normal inspection Respiratory exam: Present: normal lung sounds bilaterally Cardiovascular Exam: Present: regular rate, normal rhythm GI/Abdominal exam: Present: soft. Absent: tenderness Extremities exam: Present: pedal edema Neurological exam: Present: alert Psychiatric exam: Present: normal affect, normal mood Skin exam: Present: other (Right anterior chest wall dialysis catheter with ecchymosis. There is some mild swelling near the insertion site approximately 3 x 3 cm with mild tenderness) Course Vital Signs 04/28/24 12:28 Temperature 97.7 F Pulse Rate 72 Respiratory 18 Rate Blood Pressure 159/81 O2 Sat by Pulse 97 Oximetry Medical Decision Making - Medical Decision Making Was pt. sent in by a medical professional or institution (, PA, SEARCH ENGINE MARKETING STRATEGIST, urgent care, hospital, or longterm...) When possible be specific @ -Patient was sent by dialysis center Did you speak to anyone other than the patient for history (EMS, parent, family, police, friend...)? What history was obtained from this source @ -Family is present and helps provide history of past problems with dialysis cath Did you review nursing and triage notes (agree or disagree)? Why? @ -I reviewed and agree with nursing and triage notes Were old charts reviewed (outside hosp., previous admission, EMS record, old EKG, old radiological studies, urgent care reports/EKG's, longterm records)? Report findings @ -Previous charts reviewed regarding placement and timing of dialysis catheter and previous admission and labs Differential Diagnosis (chest pain, altered mental status, abdominal pain women, abdominal pain men, vaginal bleeding, weakness, fever, dyspnea, syncope, headache, dizziness, GI bleed, back pain, seizure, CVA, palpatations, mental health, musculoskeletal)? @ -Differential Weakness: Hypoglycemia, shock, sepsis, hyponatremia, anemia, infection, CA, ETOH, adverse medicine reaction, overdose, stroke, this is not meant to be an all-inclusive list. EKG interpreted by me (3pts min.). @ -As above X-rays interpreted by me (1pt min.). @ -None done CT interpreted by me (1pt min.). @ -None done U/S interpreted by me (1pt. min.). @ -None done What testing was considered but not performed or refused? (CT, X-rays, U/S, labs)? Why? @ -Lab work will be added to assess for electrolytes What meds were considered but not given or refused? Why? @ -None Did you discuss the management of the patient with other professionals (professionals i.e. DrAlice, PA, SEARCH ENGINE MARKETING STRATEGIST, lab, RT, psych nurse, social work assistant, education managers, teacher, learning officer, supervisor case loading)? Give summary @ -Case discussed with Dr. Casas who does recommend admission and nephrology consult for attempted dialysis. If they are unable to do dialysis days patient please contact her and she will arrange or perform catheter replacement Was smoking cessation discussed for >3mins.? @ -No Was critical care preformed (if so, how long)? @ -No Were there social determinants of health that impacted care today? How? (Homelessness, low income, unemployed, alcoholism, drug addiction, transportation, low edu. Level, literacy, decrease access to med. care, group home, rehab)? @ -No Was there de-escalation of care discussed even if they declined (Discuss DNR or withdrawal of care, Hospice)? DNR status @ -No What co-morbidities impacted this encounter? (DM, HTN, Smoking, COPD, CAD, Cancer, CVA, ARF, Chemo, Hep., AIDS, mental health diagnosis, sleep apnea, morbid obesity)? @ -End-stage renal disease on hemodialysis Was patient admitted / discharged? Hospital course, mention meds given and route, prescriptions, significant lab abnormalities, going to OR and other pertinent info. @ -Patient presents with unable to have dialysis. Details regarding this are unclear. Patient will be admitted and patient will have attempted dialysis however if unable to have it done catheter will be replaced. Patient and family updated on results and plan. Case was also discussed with Dr. Hooker who will admit covering Dr. Mayer Undiagnosed new problem with uncertain prognosis? @ -No Drug Therapy requiring intensive monitoring for toxicity (Heparin, Nitro, Insulin, Cardizem)? @ -No Were any procedures done? @ -No Diagnosis/symptom? @ -Dialysis catheter malfunction Acute, or Chronic, or Acute on Chronic? @ -Acute Uncomplicated (without systemic symptoms) or Complicated (systemic symptoms)? @ -Default Side effects of treatment? @ -No Exacerbation, Progression, or Severe Exacerbation? @ -No Poses a threat to life or bodily function? How? (Chest pain, USA, CA, pneumonia, PE, COPD, DKA, ARF, appy, cholecystitis, CVA, Diverticulitis, Homicidal, Suicidal, threat to staff... and all critical care pts) @ -No Disposition Clinical Impression: ESRD (end stage renal disease) on dialysis, Dialysis catheter clot or failure Disposition: ADMITTED IP TO THIS HOSP Is patient prescribed a controlled substance at d/c from ED?: No Referrals: Bienvenido Hogue MD [Primary Care Provider] - 1-2 days Time of Disposition: 14:26
[2024-04-28] MEDS ORDERED: IPRATROPIUM-ALBUTEROL 3 ML NEB INHALATION PRN (14:21)
[2024-04-28] MEDS ORDERED: NON FORMULARY DRUG (Albuterol Inhaler 90 MCG Puff) INHALATION PRN (14:21)
[2024-04-28] MEDS ORDERED: NALOXONE 0.4 MG/ML 1 ML VIAL IV PRN (14:27)
[2024-04-28 16:02] LABS: Basophils % (A) 0 %; Eosinophils % (A) 0 %; HCT 37.2 % (34.0-46.0); HGB 11.5 gm/dL (11.4-16.0); Hypochromasia Moderate; Lymphocytes # (A) 0.7 k/uL (1.0-4.8); Lymphocytes % (A) 7 %; MCH 32.6 pg (25.0-35.0); MCHC 30.9 g/dL (31.0-37.0); MCV 105.5 fL (80.0-100.0); Macrocytosis Moderate; Mean Platelet Volume 7.7; Monocytes # (A) 0.4 k/uL (0-1.0); Monocytes % (A) 3 %; Neutrophils # (A) 9.9 k/uL (1.3-7.7); Neutrophils % (A) 89 %; Platelet Count 191 k/uL (150-450); RBC 3.52 m/uL (3.80-5.40); RDW 13.4 % (11.5-15.5); WBC 11.2 k/uL (3.8-10.6)
[2024-04-28 16:31] LABS: ALT 18 U/L (4-34); African American GFR (CKD) 17 (>60 ml/min/1.73 sqM); Albumin 3.9 g/dL (3.5-5.0); Anion Gap 12 mmol/L; Blood Urea Nitrogen 56 mg/dL (7-17); Calcium 7.8 mg/dL (8.4-10.2); Carbon Dioxide 17 mmol/L (22-30); Chloride 109 mmol/L (98-107); Glucose 110 mg/dL (74-99); Non-African American GFR(CKD) 15 (>60 ml/min/1.73 sqM); Sodium 138 mmol/L (137-145); Total Bilirubin 0.7 mg/dL (0.2-1.3); Total Protein 6.5 g/dL (6.3-8.2)
[2024-04-28 16:37] LABS: AST 25 U/L (14-36); Alkaline Phosphatase 54 U/L (38-126); Magnesium 1.8 mg/dL (1.6-2.3); Potassium 4.2 mmol/L (3.5-5.1)
--- NOTE | 2024-04-28 16:45 | P.HPIM ---
History of Present Illness H&P Date: 04/28/24 Chief Complaint: Malfunctioning dialysis catheter 78-year-old female, history of asthma/COPD, hypothyroidism, chronic kidney disease/HD, presenting to the emergency department with concern for function of her dialysis catheter. Patient had this exchanged 10 days ago. Patient did have some bruising. Patient was in the ER and had it evaluated and was determined to be functional several days ago. Patient states today she went to dialysis and they were able to draw blood however with injection there was concern for leakage. Patient did develop swelling under her skin. Patient has discomfort of this area only with touch. Patient does have some bruising however states that is old bruising. Blood work completed in ED reveals a WBC of 11.2, hemoglobin of 11.[address] atelet count of 191, sodium 138, potassium 4.2, BUNs/creatinine of 56/2.90, magnesium of 1.8 and phosphorus of 6.0 -Case discussed with Dr. Casas who does recommend admission and nephrology consult for attempted dialysis. If they are unable to do dialysis, plan is to contact her and she will arrange or perform catheter replacement Review of Systems REVIEW OF SYSTEMS: CONSTITUTIONAL: No fever, no malaise, no fatigue. HEENT: No recent visual problems or hearing problems. Denied any sore throat. CARDIOVASCULAR: No chest pain, orthopnea, PND, no palpitations, no syncope. PULMONARY: No shortness of breath, no cough, no hemoptysis. GASTROINTESTINAL: No diarrhea, no nausea, no vomiting, no abdominal pain. NEUROLOGICAL: No headaches, no weakness, no numbness. HEMATOLOGICAL: Denies any bleeding or petechiae. GENITOURINARY: Denies any burning micturition, frequency, or urgency. MUSCULOSKELETAL/RHEUMATOLOGICAL: Denies any joint pain, swelling, or any muscle pain. ENDOCRINE: Denies any polyuria or polydipsia. The rest of the 14-point review of systems is negative. Past Medical History Past Medical History: Asthma, Cancer, COPD, Osteoarthritis (OA), Renal Disease, Thyroid Disorder Additional Past Medical History / Comment(s): hemodialysis MOWEFR 3 1/2 hours,dialysis cath rt chest, kidney stones and UTI, hx lymphedema, hx pulmonary fibrosis, hx graves,hx rt foot torn ligaments, hx osteoporosis,hypotension, has O2 available at home but has not needed in 6months; vitamin D deficiency, hypocalcemia,. SKIN CANCER REMOVED FROM BRIDGE OF NOSE., PMR - polymyalgia rhematalia History of Any Multi-Drug Resistant Organisms: CRE Date of last positivie culture/infection: 10/16/18 MDRO-CRE PER [facility] NOT [facility] MDRO Source:: Urine Past Surgical History: Bariatric Surgery Additional Past Surgical History / Comment(s): hx bariatric surgery-Kye En Y,lung biopsy,radioactive iodine-tx thyroid,rectal and bladder suspensions,vaginal surgery as a child,partha carpel tunnel,rt knee meniscus repair,D&C x3, left arm fistula 02/08/19 (not working), left broken wrist, broken right wrist Past Anesthesia/Blood Transfusion Reactions: Previous Problems w/ Anesthesia, Postoperative Nausea & Vomiting (PONV) Additional Past Anesthesia/Blood Transfusion Reaction / Comment(s): decrease bp with anesthesia,no problems with prior blood transfusion Past Psychological History: No Psychological Hx Reported Smoking Status: Never smoker Past Alcohol Use History: None Reported Past Drug Use History: None Reported - Past Family History Father Family Medical History: Pulmonary Embolus Additional Family Medical History / Comment(s): . Mother Family Medical History: Cancer Additional Family Medical History / Comment(s): . Sister(s) Family Medical History: Cancer Additional Family Medical History / Comment(s): . Daughter(s) Additional Family Medical History / Comment(s): lymphedema in legs Brother(s) Family Medical History: Cancer Additional Family Medical History / Comment(s): skin cancer Medications and Allergies Home Medications Medication Instructions Recorded Confirmed Type FLUoxetine HCL [PROzac] 20 mg PO BID 08/23/18 04/28/24 History Montelukast [Singulair] 10 mg PO HS 08/23/18 04/28/24 History Omeprazole 40 mg PO AC-BID 11/19/18 04/28/24 History Sodium Bicarbonate Tab 1,950 mg PO W/SUPPER 07/22/19 04/28/24 History Loratadine 10 mg PO DAILY 12/06/19 04/28/24 History Methenamine Hippurate 1 gm PO BID 01/25/21 04/28/24 History Mirabegron [Myrbetriq] 25 mg PO DAILY 01/25/21 04/28/24 History Albuterol Inhaler [Ventolin Hfa 2 puff INHALATION RT-Q6H PRN 02/07/23 04/28/24 History Inhaler] calcitrioL 2 mcg PO MOWEFR 02/07/23 04/28/24 History Bumetanide [BUMEX] 1 mg PO DAILY 10/17/23 04/28/24 History Ergocalciferol [Vitamin D2 (1250 1,250 mcg PO SUTUTHSA 10/17/23 04/28/24 History Mcg = 89646 Iu)] Gabapentin [Neurontin] 300 mg PO BID 10/17/23 04/28/24 History metroNIDAZOLE [Flagyl] 250 mg PO DAILY 10/17/23 04/28/24 History Ipratropium-Albuterol Nebulize 3 ml INHALATION RT-QID PRN 01/04/24 04/28/24 History [Duoneb 0.5 mg-3 mg/3 ml Soln] Calcium Acetate 668mg (169mg 2,004 mg PO TID-W/MEALS 04/15/24 04/28/24 History Calcium) Tab Calcium Acetate 668mg (169mg 668 mg PO DAILY PRN 04/15/24 04/28/24 History Calcium) Tab Cephalexin [Keflex] 500 mg PO DAILY 04/15/24 04/28/24 History Sodium Bicarbonate Tab 1,300 mg PO BID-W/MEALS 04/15/24 04/28/24 History Levothyroxine Sodium [Synthroid] 150 mcg PO DAILY 04/28/24 04/28/24 History Midodrine HCl [ProAmatine] 10 mg PO TID PRN 04/28/24 04/28/24 History predniSONE See Taper PO DAILY 04/28/24 04/28/24 History Allergies Allergy/AdvReac Type Severity Reaction Status Date / Time adhesive tape Allergy Rash/Hives Verified 04/28/24 13:43 Sulfa (Sulfonamide Allergy Itching Verified 04/28/24 13:43 Antibiotics) codeine AdvReac Nausea Verified 04/28/24 13:43 tetracycline AdvReac Nausea & Verified 04/28/24 13:43 Vomiting Physical Exam Vitals: Vital Signs Temp Pulse Resp BP Pulse Ox 04/28/24 12:28 97.7 F 72 18 159/81 97 Intake and Output 04/27/24 04/28/24 04/28/24 22:59 06:59 14:59 Other: Weight 58.967 kg General appearance: alert, in no apparent distress Head exam: Present: normocephalic Eye exam: Present: normal appearance Neck exam: Present: normal inspection Respiratory exam: Present: normal lung sounds bilaterally Cardiovascular Exam: Present: regular rate, normal rhythm GI/Abdominal exam: Present: soft. Absent: tenderness Extremities exam: Present: pedal edema Neurological exam: Present: alert Psychiatric exam: Present: normal affect, normal mood Skin exam: Present: other (Right anterior chest wall dialysis catheter with ecchymosis. There is some mild swelling near the insertion site approximately 3 x 3 cm with mild tenderness) Results CBC & Chem 7: 04/28/24 15:35 04/28/24 15:35 Assessment and Plan Assessment: 1. Possible dialysis catheter malfunction Patient sent from dialysis center due to inability to perform hemodialysis likely secondary to dialysis catheter malfunction -Patient discussed with vascular surgery; plan is to admit the patient with nephrology consult to attempt dialysis on patient's schedule today; plan is to consult vascular surgery if unable to perform dialysis -Nephrology consult placed 2. Hypothyroidism; levothyroxine 150 mcg daily 3. Asthma/COPD; not in exacerbation; continue with home inhaler therapy; Singulair 10 mg daily 4. Urinary incontinence/overactive bladder; Myrbetriq 25 mg daily 5. Seasonal allergies; loratadine 10 mg daily 6. Peripheral neuropathy; continue home dose of Neurontin 300 mg twice daily DVT prophylaxis; SCDs only given possible need for surgical procedure CODE STATUS; full code
[2024-04-28] MEDS: CALCIUM ACETATE 667 MG TAB PO SCH (17:37)
[2024-04-28] MEDS: SODIUM BICARBONATE TAB 650 MG TAB PO SCH (17:37)
[2024-04-28] MEDS: PANTOPRAZOLE 40 MG TABLET PO SCH (17:37)
[2024-04-28] MEDS: CEPHALEXIN 500 MG CAP PO SCH (18:48)
[2024-04-28] MEDS: MONTELUKAST 10 MG TAB PO SCH (21:02)
[2024-04-28] MEDS: GABAPENTIN 300 MG CAP PO SCH (21:02)
[2024-04-28] MEDS: FLUoxetine HCL 20 MG CAP PO SCH (21:02)
[2024-04-28] MEDS: NON FORMULARY DRUG (Methenamine Hippurate [Methenamine Hippurate] 1 GM Tablet) PO SCH (21:26)
[2024-04-29] MEDS: LEVOTHYROXINE 75 MCG TAB PO SCH (06:15)
[2024-04-29] MEDS: SODIUM BICARBONATE TAB 650 MG TAB PO SCH (06:17)
[2024-04-29 09:05] LABS: Basophils # (A) 0.06 X 10*3/uL (0.00-0.10); Basophils % (A) 0.7 %; Eosinophils # (A) 0.27 X 10*3/uL (0.04-0.35); HCT 27.3 % (37.2-46.3); HGB 8.4 g/dL (12.0-15.0); Lymphocytes # (A) 2.17 X 10*3/uL (0.90-5.00); Lymphocytes % (A) 23.8 %; MCH 32.4 pg (27.0-32.0); MCHC 30.8 g/dL (32.0-37.0); MCV 105.4 FL (80.0-97.0); Mean Platelet Volume 10.5 FL (9.5-12.2); Monocytes # (A) 0.81 X 10*3/uL (0.20-1.00); Monocytes % (A) 8.9 %; NRBC Per 100 WBC 0 X 10*3/uL (0.00-0.01); Neutrophils # (A) 5.74 X 10*3/uL (1.80-7.70); Neutrophils % (A) 62.9 %; Platelet Count 160 X 10*3/uL (140-440); RBC 2.59 X 10*6/uL (4.10-5.20); RDW 13.6 % (11.5-14.5); WBC 9.11 X 10*3/uL (4.50-10.00)
[2024-04-29 09:10] LABS: ALT 17 U/L (8-44); AST 18 U/L (13-35); Albumin 3.2 g/dL (3.8-4.9); Albumin/Globulin Ratio 1.88 Ratio (1.60-3.17); Alkaline Phosphatase 46 U/L (41-126); BUN/Creat Ratio 18.48 Ratio (12.00-20.00); Blood Urea Nitrogen 57.3 mg/dL (9.0-27.0); Calcium 7.2 mg/dL (8.7-10.3); Carbon Dioxide 19.1 mmol/L (21.6-31.8); Chloride 105 mmol/L (96-109); Globulin 1.7 g/dL (1.6-3.3); Glucose 90 mg/dL (70-110); Magnesium 1.6 mg/dL (1.5-2.4); Phosphorus 5.5 mg/dL (2.4-5.1); Potassium 3.6 mmol/L (3.5-5.5); Sodium 138 mmol/L (135-145); Total Bilirubin 0.3 mg/dL (0.3-1.2); Total Protein 4.9 g/dL (6.2-8.2)
--- NOTE | 2024-04-29 09:34 | P.GSCN ---
History of Present Illness Consult date: 04/29/24 Reason for Consult: Malfunctioning tunneled dialysis catheter Requesting physician: Jaden Chappell History of present illness: This a pleasant 78-year-old female with a history of end-stage renal disease on hemodialysis. She has been having difficulty with her tunneled dialysis catheter. It was removed and replaced on 04/18/2024. She returned back to the emergency department on 04/24/2024 because outpatient dialysis nurse was concerned with the bruising and swelling. She was seen by Dr. Casas at that time and dialysis catheter was flushing fine, there was hematoma around the catheter site as well as bruising however it was functioning fine. Bruising secondary to catheter replacement. Patient is now stating that she went to dialysis and they are able to draw blood from it but they are not able to push anything through it. No significant pain, there is some tenderness. No leaking or bleeding. No shortness of breath or chest pain. Today's labs WBC 9.11 hemoglobin 8.4 sodium 138 potassium 3.6 BUN 57 creatinine 3.1 phosphorus 5.5 magnesium 1.6 Review of Systems A 14 point review systems was completed all pertinent positives and negatives as stated in the HPI. Past Medical History Past Medical History: Asthma, Cancer, COPD, Osteoarthritis (OA), Renal Disease, Thyroid Disorder Additional Past Medical History / Comment(s): hemodialysis MOWEFR 3 1/2 hours,dialysis cath rt chest, kidney stones and UTI, hx lymphedema, hx pulmonary fibrosis, hx graves,hx rt foot torn ligaments, hx osteoporosis,hypotension, has O2 available at home but has not needed in 6months; vitamin D deficiency, hypocalcemia,. 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 PER [facility] NOT [facility] MDRO Source:: Urine Past Surgical History: Bariatric Surgery Additional Past Surgical History / Comment(s): hx bariatric surgery-Kye En Y,lung biopsy,radioactive iodine-tx thyroid,rectal and bladder suspe nsions,vaginal surgery as a child,partha carpel tunnel,rt knee meniscus repair,D&C x3, left arm fistula 02/08/19 (not working), left broken wrist, broken right wrist Past Anesthesia/Blood Transfusion Reactions: Previous Problems w/ Anesthesia, Postoperative Nausea & Vomiting (PONV) Additional Past Anesthesia/Blood Transfusion Reaction / Comm: decrease bp with anesthesia,no problems with prior blood transfusion Past Psychological History: No Psychological Hx Reported Smoking Status: Never smoker Past Alcohol Use History: None Reported Past Drug Use History: None Reported - Past Family History Father Family Medical History: Pulmonary Embolus Additional Family Medical History / Comment(s): . Mother Family Medical History: Cancer Additional Family Medical History / Comment(s): . Sister(s) Family Medical History: Cancer Additional Family Medical History / Comment(s): . Daughter(s) Additional Family Medical History / Comment(s): lymphedema in legs Brother(s) Family Medical History: Cancer Additional Family Medical History / Comment(s): skin cancer Medications and Allergies Home Medications Medication Instructions Recorded Confirmed Type FLUoxetine HCL [PROzac] 20 mg PO BID 08/23/18 04/28/24 History Montelukast [Singulair] 10 mg PO HS 08/23/18 04/28/24 History Omeprazole 40 mg PO AC-BID 11/19/18 04/28/24 History Sodium Bicarbonate Tab 1,950 mg PO W/SUPPER 07/22/19 04/28/24 History Loratadine 10 mg PO DAILY 12/06/19 04/28/24 History Methenamine Hippurate 1 gm PO BID 01/25/21 04/28/24 History Mirabegron [Myrbetriq] 25 mg PO DAILY 01/25/21 04/28/24 History Albuterol Inhaler [Ventolin Hfa 2 puff INHALATION RT-Q6H PRN 02/07/23 04/28/24 History Inhaler] calcitrioL 2 mcg PO MOWEFR 02/07/23 04/28/24 History Bumetanide [BUMEX] 1 mg PO DAILY 10/17/23 04/28/24 History Ergocalciferol [Vitamin D2 (1250 1,250 mcg PO SUTUTHSA 10/17/23 04/28/24 History Mcg = 40030 Iu)] Gabapentin [Neurontin] 300 mg PO BID 10/17/23 04/28/24 History metroNIDAZOLE [Flagyl] 250 mg PO DAILY 10/17/23 04/28/24 History Ipratropium-Albuterol Nebulize 3 ml INHALATION RT-QID PRN 01/04/24 04/28/24 History [Duoneb 0.5 mg-3 mg/3 ml Soln] Calcium Acetate 668mg (169mg 2,004 mg PO TID-W/MEALS 04/15/24 04/28/24 History Calcium) Tab Calcium Acetate 668mg (169mg 668 mg PO DAILY PRN 04/15/24 04/28/24 History Calcium) Tab Cephalexin [Keflex] 500 mg PO DAILY 04/15/24 04/28/24 History Sodium Bicarbonate Tab 1,300 mg PO BID-W/MEALS 04/15/24 04/28/24 History Levothyroxine Sodium [Synthroid] 150 mcg PO DAILY 04/28/24 04/28/24 History Midodrine HCl [ProAmatine] 10 mg PO TID PRN 04/28/24 04/28/24 History predniSONE See Taper PO DAILY 04/28/24 04/28/24 History Allergies Allergy/AdvReac Type Severity Reaction Status Date / Time adhesive tape Allergy Rash/Hives Verified 04/28/24 13:43 Sulfa (Sulfonamide Allergy Itching Verified 04/28/24 13:43 Antibiotics) codeine AdvReac Nausea Verified 04/28/24 13:43 tetracycline AdvReac Nausea & Verified 04/28/24 13:43 Vomiting Surgical - Exam Vital Signs Temp Pulse Resp BP Pulse Ox 97.7 F 72 18 159/81 97 04/28/24 12:28 04/28/24 12:28 04/28/24 12:28 04/28/24 12:28 04/28/24 12:28 General appearance: The patient is alert, oriented, appears in no acute distress. HET: Head is normocephalic and atraumatic. Pupils are equal and reactive. Neck: Supple. Heart: Regular. Lungs: Equal expansion, normal respiratory effort. Chest: Right upper chest with moderate ecchymosis, catheter is clean dry and intact with surrounding hematoma more proximal. Sutures intact. Abdomen: Soft, nontender, nondistended. Extremities: Normal skin color and turgor. Neurological: No focal deficits. Results - Labs 04/29/24 04:15 04/29/24 04:15 Abnormal Lab Results - Last 24 Hours (Table) 04/28/24 04/28/24 Range/Units 15:35 15:35 WBC 11.2 H (3.8-10.6) k/uL RBC 3.52 L (3.80-5.40) m/uL MCV 105.5 H (80.0-100.0) fL MCHC 30.9 L (31.0-37.0) g/dL Neutrophils # 9.9 H (1.3-7.7) k/uL Lymphocytes # 0.7 L (1.0-4.8) k/uL Chloride 109 H (98-107) mmol/L Carbon Dioxide 17 L (22-30) mmol/L BUN 56 H (7-17) mg/dL Creatinine 2.90 H (0.52-1.04) mg/dL Glucose 110 H (74-99) mg/dL Calcium 7.8 L (8.4-10.2) mg/dL Phosphorus 6.0 H (2.5-4.5) mg/dL Diabetes panel 04/28/24 Range/Units 15:35 Sodium 138 (137-145) mmol/L Potassium 4.2 (3.5-5.1) mmol/L Chloride 109 H (98-107) mmol/L Carbon Dioxide 17 L (22-30) mmol/L BUN 56 H (7-17) mg/dL Creatinine 2.90 H (0.52-1.04) mg/dL Glucose 110 H (74-99) mg/dL Calcium 7.8 L (8.4-10.2) mg/dL AST 25 (14-36) U/L ALT 18 (4-34) U/L Alkaline Phosphatase 54 (38-126) U/L Total Protein 6.5 (6.3-8.2) g/dL Albumin 3.9 (3.5-5.0) g/dL Calcium panel 04/28/24 Range/Units 15:35 Calcium 7.8 L (8.4-10.2) mg/dL Phosphorus 6.0 H (2.5-4.5) mg/dL Albumin 3.9 (3.5-5.0) g/dL Pituitary panel 04/28/24 Range/Units 15:35 Sodium 138 (137-145) mmol/L Potassium 4.2 (3.5-5.1) mmol/L Chloride 109 H (98-107) mmol/L Carbon Dioxide 17 L (22-30) mmol/L BUN 56 H (7-17) mg/dL Creatinine 2.90 H (0.52-1.04) mg/dL Glucose 110 H (74-99) mg/dL Calcium 7.8 L (8.4-10.2) mg/dL Adrenal panel 04/28/24 Range/Units 15:35 Sodium 138 (137-145) mmol/L Potassium 4.2 (3.5-5.1) mmol/L Chloride 109 H (98-107) mmol/L Carbon Dioxide 17 L (22-30) mmol/L BUN 56 H (7-17) mg/dL Creatinine 2.90 H (0.52-1.04) mg/dL Glucose 110 H (74-99) mg/dL Calcium 7.8 L (8.4-10.2) mg/dL Total Bilirubin 0.7 (0.2-1.3) mg/dL AST 25 (14-36) U/L ALT 18 (4-34) U/L Alkaline Phosphatase 54 (38-126) U/L Total Protein 6.5 (6.3-8.2) g/dL Albumin 3.9 (3.5-5.0) g/dL - Imaging Comments: 1 view chest x-ray reported right sided double-lumen hemodialysis catheter with tips at the lower SVC. Multiple skin folds projecting along the periphery of the right chest. A curvilinear edge projecting at the lateral right upper lobe also likely represents a skinfold. Pneumothorax considered less likely. Short interval follow-up recommended to reassess. X-ray independently reviewed by Dr. Encarnacion who does not feel that there is an y pneumothorax. 2 view with inspiratory and expiratory ordered Assessment and Plan Assessment: 1. Reported malfunctioning hemodialysis tunneled catheter 2. End-stage renal disease Plan: 1. Chest x-ray ordered 2. Cathflo tPA ordered for dialysis catheter 3. May access catheter for hemodialysis. Hemodialysis as ordered per n ephrology. 4. If unable to perform hemodialysis will plan for tunneled dialysis catheter exchange tomorrow Thank you for this consultation, we will continue to follow. The impression and plan of care has been dictated as directed. Dr. Encarnacion I performed a history and examination of this patient, discussed the same with the dictator. I agree with the dictator's note ,documented as a scribe. Any additional findings or plans will be noted.
[2024-04-29] MEDS: NON FORMULARY DRUG (Mirabegron [Myrbetriq] 25 MG Tab.Er.24h) PO SCH (09:47)
--- NOTE | 2024-04-29 09:55 | XR ---
EXAMINATION TYPE: XR chest 1V DATE OF EXAM: 04/29/2024 COMPARISON: 04/18/2024 HISTORY: 78-year-old female catheter placement/position TECHNIQUE: Single frontal view of the chest is obtained. FINDINGS: Right-sided double-lumen hemodialysis catheter, tips at the lower SVC. Skin folds project along the periphery of the right hemithorax. Curvilinear edge projecting at the right upper lobe like ly represents skin fold as well rather than a 26 mm pneumothorax. Some strandy atelectasis remains at the right base. Heart normal size. No other consolidation or pleural effusion seen. Surgical clips i n the upper abdomen. Surgical material at the right base. IMPRESSION: 1. Right-sided double-lumen hemodialysis catheter with tips at the lower SVC. 2. Multiple skin folds project along the periphery of the right chest. A curvilinear edge projecting at the lateral right upper lobe also likely represents a skinfold. Pneumothorax considered less likel y. Short interval follow-up recommended to reassess. [facility], , 04/29/2024 9:53 AM
--- NOTE | 2024-04-29 11:22 | XR ---
EXAMINATION TYPE: XR chest 2V DATE OF EXAM: 04/29/2024 10:39 AM COMPARISON: Earlier today CLINICAL INDICATION: Female, 78 years old with history of pneumothorax, , TECHNIQUE: PA inspiratory and expiratory views FINDINGS: Heart normal size. Atherosclerotic arch calcifications. Mild interstitial prominence and mild hyperin flation. No consolidation or pleural effusion. No pneumothorax identified. Right-sided double-lumen h emodialysis catheter with tips at the lower SVC. Surgical clips upper abdomen. IMPRESSION: Repeat views with inspiration and expiration show no evidence for pneumothorax. [facility], , 04/29/2024 11:20 AM
[2024-04-29] MEDS: BUMETANIDE 1 MG TAB PO SCH (11:35)
[2024-04-29] MEDS: LORATADINE 10 MG TAB PO SCH (11:35)
--- NOTE | 2024-04-29 11:37 | P.NPCON ---
History of Present Illness - Reason for Consult end stage renal disease - History of Present Illness patient is a 78-year-old female with end-stage renal disease on hemodialysis on Monday schedule. Patient was sent in from the dialysis unit due to malfunction of right IJ dialysis catheter. Patient has had a hematoma around the catheter which was recently placed. Yesterday dialysis staff was not able to flush the catheter and there was a bulge noted when they tried to flush it. Patient has been evaluated by vascular surgery with plans to try dialysis today and placement of new catheter tomorrow if catheter remains malfunctional. No complaints of chest pain or shortness of breath. Patient has been voiding. Serum potassium 3.6. Hemoglobin low at 8.4 Past Medical History Past Medical History: Asthma, Cancer, COPD, Osteoarthritis (OA), Renal Disease, Thyroid Disorder Additional Past Medical History / Comment(s): hemodialysis MOWEFR 3 1/2 hours,dialysis cath rt chest, kidney stones and UTI, hx lymphedema, hx pulmonary fibrosis, hx graves,hx rt foot torn ligaments, hx osteoporosis,hypotension, has O2 available at home but has not needed in 6months; vitamin D deficiency, hypocalcemia,. SKIN CANCER REMOVED FROM BRIDGE OF NOSE., PMR - polymyalgia rhematalia History of Any Multi-Drug Resistant Organisms: CRE Date of last positivie culture/infection: 10/16/18 MDRO-CRE PER [facility] NOT [facility] MDRO Source:: Urine Past Surgical History: Bariatric Surgery Additional Past Surgical History / Comment(s): hx bariatric surgery-Kye En Y,lung biopsy,radioactive iodine-tx thyroid,rectal and bladder suspensions,vaginal surgery as a child,partha carpel tunnel,rt knee meniscus repair,D&C x3, left arm fistula 02/08/19 (not working), left broken wrist, broken right wrist Past Anesthesia/Blood Transfusion Reactions: Previous Problems w/ Anesthesia, Postoperative Nausea & Vomiting (PONV) Additional Past Anesthesia/Blood Transfusion Reaction / Comment(s): decrease bp with anesthesia,no problems with prior blood transfusion Past Psychological History: No Psychological Hx Reported Smoking Status: Never smoker Past Alcohol Use History: None Reported Past Drug Use History: None Reported - Past Family History Father Family Medical History: Pulmonary Embolus Additional Family Medical History / Comment(s): . Mother Family Medical History: Cancer Additional Family Medical History / Comment(s): . Sister(s) Family Medical History: Cancer Additional Family Medical History / Comment(s): . Daughter(s) Additional Family Medical History / Comment(s): lymphedema in legs Brother(s) Family Medical History: Cancer Additional Family Medical History / Comment(s): skin cancer Medications and Allergies Home Medications Medication Instructions Recorded Confirmed Type FLUoxetine HCL [PROzac] 20 mg PO BID 08/23/18 04/28/24 History Montelukast [Singulair] 10 mg PO HS 08/23/18 04/28/24 History Omeprazole 40 mg PO AC-BID 11/19/18 04/28/24 History Sodium Bicarbonate Tab 1,950 mg PO W/SUPPER 07/22/19 04/28/24 History Loratadine 10 mg PO DAILY 12/06/19 04/28/24 History Methenamine Hippurate 1 gm PO BID 01/25/21 04/28/24 History Mirabegron [Myrbetriq] 25 mg PO DAILY 01/25/21 04/28/24 History Albuterol Inhaler [Ventolin Hfa 2 puff INHALATION RT-Q6H PRN 02/07/23 04/28/24 History Inhaler] calcitrioL 2 mcg PO MOWEFR 02/07/23 04/28/24 History Bumetanide [BUMEX] 1 mg PO DAILY 10/17/23 04/28/24 History Ergocalciferol [Vitamin D2 (1250 1,250 mcg PO SUTUTHSA 10/17/23 04/28/24 History Mcg = 87222 Iu)] Gabapentin [Neurontin] 300 mg PO BID 10/17/23 04/28/24 History metroNIDAZOLE [Flagyl] 250 mg PO DAILY 10/17/23 04/28/24 History Ipratropium-Albuterol Nebulize 3 ml INHALATION RT-QID PRN 01/04/24 04/28/24 History [Duoneb 0.5 mg-3 mg/3 ml Soln] Calcium Acetate 668mg (169mg 2,004 mg PO TID-W/MEALS 04/15/24 04/28/24 History Calcium) Tab Calcium Acetate 668mg (169mg 668 mg PO DAILY PRN 04/15/24 04/28/24 History Calcium) Tab Cephalexin [Keflex] 500 mg PO DAILY 04/15/24 04/28/24 History Sodium Bicarbonate Tab 1,300 mg PO BID-W/MEALS 04/15/24 04/28/24 History Levothyroxine Sodium [Synthroid] 150 mcg PO DAILY 04/28/24 04/28/24 History Midodrine HCl [ProAmatine] 10 mg PO TID PRN 04/28/24 04/28/24 History predniSONE See Taper PO DAILY 04/28/24 04/28/24 History Allergies Allergy/AdvReac Type Severity Reaction Status Date / Time adhesive tape Allergy Rash/Hives Verified 04/28/24 13:43 Sulfa (Sulfonamide Allergy Itching Verified 04/28/24 13:43 Antibiotics) codeine AdvReac Nausea Verified 04/28/24 13:43 tetracycline AdvReac Nausea & Verified 04/28/24 13:43 Vomiting Physical Exam Vitals: Vital Signs Temp Pulse Pulse Resp BP BP Pulse Ox 04/29/24 07:15 97.8 F 73 16 111/66 94 L 04/29/24 01:15 97.6 F 71 15 114/63 94 L 04/28/24 19:06 97.5 F L 63 18 165/92 98 04/28/24 17:15 98.2 F 76 16 160/82 96 04/28/24 16:55 68 16 131/82 97 04/28/24 12:28 97.7 F 72 18 159/81 97 Intake and Output 04/28/24 04/29/24 04/29/24 22:59 06:59 14:59 Other: Voiding Method Toilet # Voids 1 3 # Bowel Movements 1 Weight 58.967 kg patient is awake, comfortable, no acute distress Alert oriented 3 Examination of the heart S1 and S2 Examination of the lungs bilateral breath sounds are heard Abdomen is soft nontender Examination of lower extremities shows chronic edema Results - Lab Results Most recent lab results Calcium 7.2 mg/dL (8.7-10.3) L 04/29/24 04:15 Phosphorus 5.5 mg/dL (2.4-5.1) H 04/29/24 04:15 Magnesium 1.6 mg/dL (1.5-2.4) 04/29/24 04:15 04/29/24 04:15 04/29/24 04:15 Assessment and Plan Assessment: 1. End-stage renal disease on hemodialysis on Monday schedule as outpatient via right IJ permacath 2. Malfunctioning dialysis catheter with possibility of crack as there was a bulge noted in the catheter when it was being flushed. Hematoma noted around the catheter as well. Hemoglobin has dropped significantly to 8.4 from 11.5 yesterday. No active bleeding noted at this time. Vascular surgery has been consult it and we will attempt to dialysis today. If the catheter remains malfunctioning she will have a new catheter placed tomorrow. 3. CK D mineral bone disorder 4. Anemia, acute blood loss anemia associated with hematoma. Repeat hemoglobin later today or in a.m. Plan: attempt hemodialysis today. Continue with phosphate binders Continue with Bumex next Thank you for the consultation. We will continue to follow the patient with you during her hospitalization.
[2024-04-29] MEDS: MYRBETRIQ 25 MG PO SCH (13:11)
--- NOTE | 2024-04-29 15:14 | P.PN ---
Subjective Progress Note Date: 04/29/24 78-year-old female, history of asthma/COPD, hypothyroidism, chronic kidney disease/HD, presenting to the emergency department with concern for function of her dialysis catheter. Patient had this exchanged 10 days ago. Patient did have some bruising. Patient was in the ER and had it evaluated and was determined to be functional several days ago. Patient states today she went to dialysis and they were able to draw blood however with injection there was concern for leakage. Patient did develop swelling under her skin. Patient has discomfort of this area only with touch. Patient does have some bruising however states that is old bruising. Blood work completed in ED reveals a WBC of 11.2, hemoglobin of 11.5 and platelet count of 191, sodium 138, potassium 4.2, BUNs/creatinine of 56/2.90, magnesium of 1.8 and phosphorus of 6.0 -Case discussed with Dr. Casas who does recommend admission and nephrology consult for attempted dialysis. If they are unable to do dialysis, plan is to contact her and she will arrange or perform catheter replacement 04/29/2024 Patient is seen in follow-up today currently n.p.o. and scheduled to undergo Cathflo with vascular surgery following with concerns of clogged dialysis port of the right chest wall. Hemoglobin is 8.4 and platelets are 160, sodium 138, potassium 3.6, creatinine 3.1, magnesium 1.6. Nephrology following as well planning on attempting hemodialysis. There is concern of leaking around the chest port and will be evaluated by vascular surgery. N.p.o. at midnight for possible intervention. Review of systems: Constitutional: No reports of fatigue, fever, or chills Cardiovascular: No reports of chest pain or palpitations Respiratory: No reports of shortness of breath or cough GI: No reports of nausea, vomiting, or diarrhea : No reports of dysuria or retention Neurovascular: No reports of weakness or numbness All medications have been reviewed Physical exam: Gen: This is a 78-year-old female who is awake, alert and oriented x 3, thin build, elderly appearing HEENT: Head is atraumatic, normocephalic. Pupils equal, round. Sclerae is anicteric. NECK: Supple. No JVD. No lymphadenopathy. No thyromegaly. LUNGS: Clear to auscultation. No wheezes or rhonchi. No intercostal retractions. HEART: S1, S2 are muffled ABDOMEN: Soft. Thin. Bowel sounds are present. No masses. No tenderness. EXTREMITIES: No pedal edema. No calf tenderness. NEUROLOGICAL: Patient is awake, alert and oriented x3. Cranial nerves 2 through 12 are grossly intact. Assessment: 1. Possible dialysis catheter malfunction Patient sent from dialysis center due to inability to perform hemodialysis likely secondary to dialysis catheter malfunction -Patient discussed with vascular surgery; plan is to admit the patient with nephrology consult to attempt dialysis today although there is concerned about possible leaking and patient will be n.p.o. at midnight for possible surgical intervention. Cathflo was initiated today per vascular surgery 2. Hypothyroidism; continue levothyroxine 150 mcg daily 3. Asthma/COPD; not in exacerbation; continue with home inhaler therapy; Singulair 10 mg daily 4. Urinary incontinence/overactive bladder, chronic; continue Myrbetriq 25 mg daily 5. Seasonal allergies; continue loratadine 10 mg daily 6. Peripheral neuropathy; continue home dose of Neurontin 300 mg twice daily GI prophylaxis DVT prophylaxis; SCDs only given possible need for surgical procedure CODE STATUS; full code Plan: Patient currently n.p.o. and underwent Cathflo with concern of possible chest wall port either leaking or nonfunctional. Nephrology and vascular surgery consulted with plans of possible surgical intervention in the next 24 hours Nephrology following initiating dialysis with attempts to dialyze today Follow-up on repeat labs in the a.m. Will await vascular surgery report The impression and plan of care has been dictated by Catherine Rojas, Nurse Practitioner as directed. Dr. Favian MD I have performed a history and examination and MDM of this patient, discussed the same with the dictator, and agree with the dictator's assessment and plan as written ,documented as a scribe. Based on total visit time, I have performed more than 50% of the visit. Objective - Vital Signs Vital signs: Vital Signs Temp 97.8 F 04/29/24 07:15 Pulse 73 04/29/24 07:15 Resp 16 04/29/24 07:15 BP 111/66 04/29/24 07:15 Pulse Ox 94 L 04/29/24 07:15 FiO2 Intake & Output 04/28/24 04/29/24 04/29/24 18:59 06:59 18:59 Weight 58.967 kg Other: Voiding Method Toilet # Voids 3 # Bowel Movements 1 - Labs CBC & Chem 7: 04/29/24 04:15 04/29/24 04:15 Labs: Abnormal Lab Results - Last 24 Hours (Table) 04/28/24 04/28/24 04/29/24 Range/Units 15:35 15:35 04:15 WBC 11.2 H (3.8-10.6) k/uL RBC 3.52 L (3.80-5.40) m/uL Hgb (12.0-15.0) g/dL Hct (37.2-46.3) % MCV 105.5 H (80.0-100.0) fL MCH (27.0-32.0) pg MCHC 30.9 L (31.0-37.0) g/dL Immature Gran # (0.00-0.04) X 10*3/uL Neutrophils # 9.9 H (1.3-7.7) k/uL Lymphocytes # 0.7 L (1.0-4.8) k/uL Chloride 109 H (98-107) mmol/L Carbon Dioxide 17 L 19.1 L (22-30) mmol/L Anion Gap 13.90 H (4.00-12.00) mmol/L BUN 56 H 57.3 H (7-17) mg/dL Creatinine 2.90 H 3.1 H (0.52-1.04) mg/dL Est GFR (CKD-EPI) 15 L (>=60) Glucose 110 H (74-99) mg/dL Calcium 7.8 L 7.2 L (8.4-10.2) mg/dL Phosphorus 6.0 H 5.5 H (2.5-4.5) mg/dL Total Protein 4.9 L (6.2-8.2) g/dL Albumin 3.2 L (3.8-4.9) g/dL 04/29/24 Range/Units 04:15 WBC (3.8-10.6) k/uL RBC 2.59 L (3.80-5.40) m/uL Hgb 8.4 L (12.0-15.0) g/dL Hct 27.3 L (37.2-46.3) % MCV 105.4 H (80.0-100.0) fL MCH 32.4 H (27.0-32.0) pg MCHC 30.8 L (31.0-37.0) g/dL Immature Gran # 0.06 H (0.00-0.04) X 10*3/uL Neutrophils # (1.3-7.7) k/uL Lymphocytes # (1.0-4.8) k/uL Chloride (98-107) mmol/L Carbon Dioxide (22-30) mmol/L Anion Gap (4.00-12.00) mmol/L BUN (7-17) mg/dL Creatinine (0.52-1.04) mg/dL Est GFR (CKD-EPI) (>=60) Glucose (74-99) mg/dL Calcium (8.4-10.2) mg/dL Phosphorus (2.5-4.5) mg/dL Total Protein (6.2-8.2) g/dL Albumin (3.8-4.9) g/dL
[2024-04-29] MEDS: ALTEPLASE 2 MG VIAL (CATHFLO) IV STA ×2 (17:30)
[2024-04-29] MEDS: ACETAMINOPHEN TAB 325 MG TAB PO PRN (17:50)
[2024-04-29] MEDS: MIDODRINE 5 MG TAB PO PRN (19:18)
[2024-04-29] MEDS: traMADol 50 MG TAB PO PRN (23:05)
[2024-04-30] MEDS: CALCIUM ACETATE 667 MG TAB PO PRN (08:26)
[2024-04-30] MEDS: ERGOCALCIFEROL 1,250 MCG (50,000 IU) CAPSULE PO SCH (08:28)
[2024-04-30 08:40] LABS: HCT 32.3 % (37.2-46.3); HGB 9.8 g/dL (12.0-15.0); MCHC 30.3 g/dL (32.0-37.0); MCV 105.6 FL (80.0-97.0); Mean Platelet Volume 9.8 FL (9.5-12.2); NRBC Per 100 WBC 0 X 10*3/uL (0.00-0.01); Platelet Count 155 X 10*3/uL (140-440); RBC 3.06 X 10*6/uL (4.10-5.20); RDW 14.1 % (11.5-14.5); WBC 7.91 X 10*3/uL (4.50-10.00)
[2024-04-30 08:50] LABS: BUN/Creat Ratio 15.52 Ratio (12.00-20.00); Blood Urea Nitrogen 32.6 mg/dL (9.0-27.0); Chloride 102 mmol/L (96-109); Glucose 98 mg/dL (70-110); Potassium 3.5 mmol/L (3.5-5.5); Sodium 138 mmol/L (135-145)
[2024-04-30 08:51] LABS: Calcium 7.8 mg/dL (8.7-10.3); Carbon Dioxide 23.9 mmol/L (21.6-31.8)
--- NOTE | 2024-04-30 10:24 | P.PN ---
Subjective Progress Note Date: 04/30/24 Principal diagnosis: Malfunctioning HD catheter Patient is seen and examined today as a follow-up. Yesterday she underwent hemodialysis per right IJ tunnel catheter. Spoke with dialysis nurse who states she had no difficulties with flushing the catheter. There is no increase size and hematoma or leaking. Patient underwent full dialysis yesterday. Today's repeat hemoglobin 9.8 sodium 138 potassium 3.5 BUN 32 creatinine 2.1. She denies any pain in her chest, no shortness of breath or chest wall pain. Objective - Vital Signs Vital signs: Vital Signs Temp 98.2 F 04/30/24 07:09 Pulse 69 04/30/24 07:09 Resp 17 04/30/24 07:09 BP 117/68 04/30/24 07:09 Pulse Ox 93 L 04/30/24 07:09 FiO2 Intake & Output 04/29/24 04/30/24 04/30/24 18:59 06:59 18:59 Intake Total 1480 Output Total 5200 Balance -3720 Intake: Oral 1080 Hemodialysis 400 Output: Hemodialysis 2800 Hemodialysis Net Amount 2400 Other: Voiding Method Toilet # Voids 3 2 # Bowel Movements 3 - Exam General appearance: The patient is alert, oriented, appears in no acute distress. HET: Head is normocephalic and atraumatic. Pupils are equal and reactive. Neck: Supple. Heart: Regular. Lungs: Equal expansion, normal respiratory effort. Chest: Right upper chest with moderate ecchymosis, catheter is clean dry and intact with surrounding hematoma medial side of catheter. Sutures intact. Abdomen: Soft, nontender, nondistended. Extremities: Normal skin color and turgor. Neurological: No focal deficits. - Labs CBC & Chem 7: 04/30/24 04:20 04/30/24 04:20 Labs: Abnormal Lab Results - Last 24 Hours (Table) 04/29/24 04/29/24 Range/Units 04:15 04:15 RBC 2.59 L (4.10-5.20) X 10*6/uL Hgb 8.4 L (12.0-15.0) g/dL Hct 27.3 L (37.2-46.3) % MCV 105.4 H (80.0-97.0) FL MCH 32.4 H (27.0-32.0) pg MCHC 30.8 L (32.0-37.0) g/dL Immature Gran # 0.06 H (0.00-0.04) X 10*3/uL Carbon Dioxide 19.1 L (21.6-31.8) mmol/L Anion Gap 13.90 H (4.00-12.00) mmol/L BUN 57.3 H (9.0-27.0) mg/dL Creatinine 3.1 H (0.6-1.5) mg/dL Est GFR (CKD-EPI) 15 L (>=60) Calcium 7.2 L (8.7-10.3) mg/dL Phosphorus 5.5 H (2.4-5.1) mg/dL Total Protein 4.9 L (6.2-8.2) g/dL Albumin 3.2 L (3.8-4.9) g/dL Assessment and Plan Assessment: 1. Reported malfunctioning hemodialysis tunneled catheter, currently functioning well 2. End-stage renal disease requiring hemodialysis Plan: Hemodialysis nurse was able to perform dialysis without any incidents with catheter. She was able to with withdraw and flush without any complications. Discussed with Dr. Wheeler. Patient does not require any vascular surgical intervention at this time. Continue hemodialysis as ordered in outpatient setting. If there is any difficulty, Margie is to be referred to vascular office and we will schedule outpatient removal and replacement of HD catheter. Thank you for this consultation, patient is cleared from vascular surgery. The impression and plan of care has been dictated as directed. Dr. Montanez I performed a history and examination of this patient, discussed the same with the dictator. I agree with the dictator's note ,documented as a scribe. Any additional findings or plans will be noted.
--- NOTE | 2024-04-30 11:59 | P.PN ---
Subjective patient is seen for follow-up for end-stage renal disease. The catheter was functioning well yesterday with dialysis therefore no intervention was performed. Patient will be scheduled for dialysis again today as she is off on her schedule due to the holidays. No significant complaints. Objective - Vital Signs Vital signs: Vital Signs Temp 98.2 F 04/30/24 07:09 Pulse 69 04/30/24 11:19 Resp 18 04/30/24 11:19 BP 117/68 04/30/24 07:09 Pulse Ox 93 L 04/30/24 07:09 FiO2 Intake & Output 04/29/24 04/30/24 04/30/24 18:59 06:59 18:59 Intake Total 1480 Output Total 5200 Balance -3720 Intake: Oral 1080 Hemodialysis 400 Output: Hemodialysis 2800 Hemodialysis Net Amount 2400 Other: Voiding Method Toilet Toilet # Voids 3 2 # Bowel Movements 3 - Exam patient is awake, comfortable, no acute distress Alert oriented 3 Examination of the heart S1 and S2 Examination of the lungs bilateral breath sounds are heard Abdomen is soft nontender Examination of lower extremities shows chronic edema - Labs CBC & Chem 7: 04/30/24 04:20 04/30/24 04:20 Labs: Abnormal Lab Results - Last 24 Hours (Table) 04/30/24 04/30/24 Range/Units 04:20 04:20 RBC 3.06 L (4.10-5.20) X 10*6/uL Hgb 9.8 L (12.0-15.0) g/dL Hct 32.3 L (37.2-46.3) % MCV 105.6 H (80.0-97.0) FL MCHC 30.3 L (32.0-37.0) g/dL Anion Gap 12.10 H (4.00-12.00) mmol/L BUN 32.6 H (9.0-27.0) mg/dL Creatinine 2.1 H (0.6-1.5) mg/dL Est GFR (CKD-EPI) 24 L (>=60) Calcium 7.8 L (8.7-10.3) mg/dL Assessment and Plan Assessment: 1. End-stage renal disease on hemodialysis on Monday schedule as outpatient via right IJ permacath 2. Malfunctioning dialysis catheter. there was no issue with the catheter during treatment yesterday. Patient will be dialyzed again today. No intervention performed. 3. CK D mineral bone disorder 4. Anemia, acute blood loss anemia associated with hematoma. Repeat hemoglobin later today or in a.m. Plan: repeat hemodialysis today Continue with phosphate binders Continue with Bumex . Patient can be discharged postdialysis. We will use heparin with treatment as she clotted the system early yesterday.
[2024-04-30 17:27] VITALS: BP 120/78; PULSE 66; RESP 18; TEMP 97.6
--- NOTE | 2024-05-05 13:27 | P.DS ---
Providers Date of admission: 04/28/24 14:27 Expected date of discharge: 04/30/24 Attending physician: Davey Parker MD Consults: 04/28/24 14:27 Consult Physician Routine Consulting Provider: Sarahy Casas Consult Reason/Comments: Dialysis catheter malfunction Do you want consulting provider notified?: Already Contacted Consult Physician Urgent Consulting Provider: Abbey Wheeler Consult Reason/Comments: Patient needs dialysis, catheter may not function Do you want consulting provider notified?: Yes Primary care physician: Bienvenido Hogue [facility] Course: Final diagnosis -Possible dialysis catheter malfunction, status post tpa, functioning and cleared by vascular surgery for use -Hypothyroidism; continue levothyroxine 150 mcg daily -Asthma/COPD; not in exacerbation -Urinary incontinence/overactive bladder, chronic -Seasonal allergies -Peripheral neuropathy -GI prophylaxis -DVT prophylaxis; SCDs -Full code Discharge disposition Patient is being discharged in a stable condition with guarded prognosis to home. Patient will follow-up with Dr. Hogue in the outpatient setting upon discharge. Patient is to continue with hemodialysis as scheduled. Total time taken is greater than 35 minutes. Hospital course This is a 78-year-old female who was recently admitted with possible hemodialysis chest wall catheter malfunction. Patient evaluated by vascular catia rafa status post Cathflo and dialysis catheter noted to be functioning. There was initially concern of possible leak around although appears to be functioning with no leakage noted. Patient reevaluated by nephrology underwent hemodialysis with no leak and will continue on current regimen. Given the holiday patient is to receive a short session of hemodialysis prior to discharge. Patient will r esume dialysis sessions on this Monday and then resume her normal schedule after this week. Patient has been cleared by consultations for discharge. Please refer to consultation notes for further HPI. Currently no reports of chest pain, shortness of breath, or palpitations. Patient is afebrile. No reports of nausea or vomiting and patient is tolerating diet. Patient will be discharged home after hemodialysis today. Physical exam: Gen: This is a 78-year-old female who is awake, alert and oriented x 3, thin built, elderly appearing HEENT: Head is atraumatic, normocephalic. Pupils equal, round. Sclerae is anicteric. NECK: Supple. No JVD. No lymphadenopathy. No thyromegaly. LUNGS: Clear to auscultation. No wheezes or rhonchi. No intercostal retractions. HEART: S1, S2 are muffled ABDOMEN: Soft. Bowel sounds are present. No masses. No tenderness. EXTREMITIES: No pedal edema. No calf tenderness. NEUROLOGICAL: Patient is awake, alert and oriented x3. Cranial nerves 2 through 12 are grossly intact. Please refer to medication reconciliation sheet for a list of medications. The impression and plan of care has been dictated by Catherine Rojas, Nurse Practitioner as directed. Dr. Favian MD I have performed a history and examination and MDM of this patient, discussed the same with the dictator, and agree with the dictator's assessment and plan as written ,documented as a scribe. Based on total visit time, I have performed more than 50% of the visit. Patient Condition at Discharge: Fair Plan - Discharge Summary Discharge Rx Participant: No New Discharge Prescriptions: New Acetaminophen Tab [Tylenol] 650 mg PO Q6HR PRN tab PRN Reason: Mild Pain Or Fever > 100.5 Continue Montelukast [Singulair] 10 mg PO HS FLUoxetine HCL [PROzac] 20 mg PO BID Omeprazole 40 mg PO AC-BID Sodium Bicarbonate Tab 1,950 mg PO W/SUPPER Loratadine 10 mg PO DAILY Methenamine Hippurate 1 gm PO BID Mirabegron [Myrbetriq] 25 mg PO DAILY Ergocalciferol [Vitamin D2 (1250 Mcg = 37285 Iu)] 1,250 mcg PO SUTUTHSA Gabapentin [Neurontin] 300 mg PO BID Bumetanide [BUMEX] 1 mg PO DAILY Sodium Bicarbonate Tab 1,300 mg PO BID-W/MEALS Calcium Acetate 668mg (169mg Calcium) Tab 668 mg PO DAILY PRN PRN Reason: WITH SNACKS predniSONE See Taper PO DAILY Levothyroxine Sodium [Synthroid] 150 mcg PO DAILY calcitrioL 2 mcg PO MOWEFR Albuterol Inhaler [Ventolin Hfa Inhaler] 2 puff INHALATION RT-Q6H PRN PRN Reason: Shortness Of Breath Ipratropium-Albuterol Nebulize [Duoneb 0.5 mg-3 mg/3 ml Soln] 3 ml INHALATION RT-QID PRN PRN Reason: sob Calcium Acetate 668mg (169mg Calcium) Tab 2,004 mg PO TID-W/MEALS Cephalexin [Keflex] 500 mg PO DAILY Midodrine HCl [ProAmatine] 10 mg PO TID PRN PRN Reason: Blood Pressure - Low Discontinued metroNIDAZOLE [Flagyl] 250 mg PO DAILY Discharge Medication List FLUoxetine HCL [PROzac] 20 mg PO BID 08/23/18 [History] Montelukast [Singulair] 10 mg PO HS 08/23/18 [History] Omeprazole 40 mg PO AC-BID 11/19/18 [History] Sodium Bicarbonate Tab 1,950 mg PO W/SUPPER 07/22/19 [History] Loratadine 10 mg PO DAILY 12/06/19 [History] Methenamine Hippurate 1 gm PO BID 01/25/21 [History] Mirabegron [Myrbetriq] 25 mg PO DAILY 01/25/21 [History] Albuterol Inhaler [Ventolin Hfa Inhaler] 2 puff INHALATION RT-Q6H PRN 02/07/23 [History] calcitrioL 2 mcg PO MOWEFR 02/07/23 [History] Bumetanide [BUMEX] 1 mg PO DAILY 10/17/23 [History] Ergocalciferol [Vitamin D2 (1250 Mcg = 59112 Iu)] 1,250 mcg PO SUTUTHSA 10/17/23 [History] Gabapentin [Neurontin] 300 mg PO BID 10/17/23 [History] Ipratropium-Albuterol Nebulize [Duoneb 0.5 mg-3 mg/3 ml Soln] 3 ml INHALATION RT-QID PRN 01/04/24 [History] Calcium Acetate 668mg (169mg Calcium) Tab 2,004 mg PO TID-W/MEALS 04/15/24 [History] Calcium Acetate 668mg (169mg Calcium) Tab 668 mg PO DAILY PRN 04/15/24 [History] Cephalexin [Keflex] 500 mg PO DAILY 04/15/24 [History] Sodium Bicarbonate Tab 1,300 mg PO BID-W/MEALS 04/15/24 [History] Levothyroxine Sodium [Synthroid] 150 mcg PO DAILY 04/28/24 [History] Midodrine HCl [ProAmatine] 10 mg PO TID PRN 04/28/24 [History] predniSONE See Taper PO DAILY 04/28/24 [History] Acetaminophen Tab [Tylenol] 650 mg PO Q6HR PRN tab 04/30/24 [Rx] Follow up Appointment(s)/Referral(s): Abbey Wheeler MD [STAFF PHYSICIAN] - 1 Week (at Dialysis) Alejandro Montanez DO [STAFF PHYSICIAN] - 05/07/24 1:45 pm Bienvenido Hogue MD [Primary Care Provider] - 1-2 days (office closed at time of discharge Please call to schedule appointment ) Patient Instructions/Handouts: Perma-cath Placement (DC), Hemodialysis (DC) Activity/Diet/Wound Care/Special Instructions: Okay for discharge after dialysis Activity limited until follow-up Follow-up with primary care provider on discharge Follow-up with nephrology outpatient Follow-up with vascular surgery outpatient Continue dialysis at your normal scheduled appointment Discharge Disposition: HOME SELF-CARE
== END 2024-04-30 19:32 | disposition home or self-care (01) ==
LOC: EC 12:24 → 6NMEDSUR 14:27 → 4SSUR 15:33
PROVIDERS: ADMIT Internal Medicine; ATTEND Internal Medicine
DX: N18.6 End stage renal disease (principal); Z99.2 Dependence on renal dialysis; E03.9 Hypothyroidism, unspecified; J44.89 Other specified chronic obstructive pulmonary disease; N32.81 Overactive bladder; R32 Unspecified urinary incontinence; M89.8X9 Other specified disorders of bone, unspecified site; D62 Acute posthemorrhagic anemia; J30.2 Other seasonal allergic rhinitis; G62.9 Polyneuropathy, unspecified; Z79.899 Other long term (current) drug therapy; Z79.890 Hormone replacement therapy; Z88.5 Allergy status to narcotic agent; Z88.2 Allergy status to sulfonamides; Z80.8 Family history of malignant neoplasm of other organs or systems
CPT/HCPCS: 99285; 80053 ×2; 80048; 83735 ×2; 84100 ×2; 85025 ×2; 85027; 71045; 71046; G0378 ×4; G0257 ×2; 90935

== ENCOUNTER 2024-05-09 09:45 | Day surgery (SDC) | payer MEDICARE ==
[2024-05-09] MEDS: SODIUM CHLORIDE 0.9% 500 ML 500 ML IV SCH (10:10)
[2024-05-09] MEDS: IV FLUID CONTINUATION 1,000 ML IV ONE (10:12)
[2024-05-09 10:26] VITALS: RESP 16; TEMP 97.9
[2024-05-09] MEDS ORDERED: fentaNYL (PF) 50 MCG/ML 2 ML AMP ONE (11:00)
[2024-05-09] MEDS ORDERED: MIDAZOLAM 2 MG/2 ML VIAL ONE (11:00)
[2024-05-09] MEDS ORDERED: PROPOFOL 10 MG/ML 20 ML VIAL IV ONE (11:00)
[2024-05-09 11:24] LABS: Potassium 3.6 mmol/L (3.5-5.1)
--- NOTE | 2024-05-09 12:29 | IR ---
EXAMINATION TYPE: IR cvc insert non tunneled DATE OF EXAM: 05/09/2024 FLUOROSCOPY NON-FUNCTIONING CATHETER. 2.56 uGym2. Total 2 images are submitted. Fluoroscopy time 0.2 minutes. [facility], , 05/09/2024 12:26 PM
--- NOTE | 2024-05-09 12:45 | P.OP ---
Date of Procedure: 05/09/24 Description of Procedure: Preoperative Diagnosis: Malfunctioning tunneled catheter ESRD Postoperative Diagnosis: Same Procedure(s) Performed: Right tunneled catheter removal and replacement with 23cm catheter utilizing flouroscopic assistance Anesthesia: local, MAC Surgeon: Augusto Estimated Blood Loss (ml): 10cc Pathology: none sent Condition: stable Disposition: PACU Indications for Procedure: 78-year-old female with history of end-stage renal disease on hemodialysis via a right-sided tunneled catheter presents due to reported malfunctioning of tunneled catheter at dialysis center. She presents for removal and replacement of tunnel catheter. Description of Procedure: Operative narrative: After written and informed consent was obtained and all risks, benefits and competitions were described the patient was brought to the [employer] Supervisor and laid in a supine position. The area of the right neck and existing catheter was prepped and draped in the usual sterile fashion. Timeout was performed in normal fashion and antibiotics were administered prior to access. Local anesthetic was infused overlying the tunnel catheter at the neck and small incision was created over the existing catheter and dissection was carried down to the catheter which was dissected free and grasped with a stat. Catheter was then cut and the proximal aspect was accessed with a Glidewire under direct visualization of fluoroscopy. Existing catheter was then removed. Large dilator was then placed under visualization and kept in place to prevent any back bleeding. Attention was then placed to the chest wall catheter which was dissected free to the cuff and removed in normal fashion. . A small incision was then created on the lateral aspect of the chest wall at a different location from previous. A 23 centimeter palindrome hemodialysis catheter was then tunneled from the chest wall to the neck. Breakaway sheath was placed into the internal jugular vein under direct visualization of fluoroscopy. The catheter was then placed within the break away sheath the sheath was removed. The ports were assessed for patency and ameya and flushed easily and then were hep-locked. The catheter was then sutured in place, cleansed and dressings were placed. The patient tolerated procedure well. Plan - Discharge Summary Discharge Rx Participant: No New Discharge Prescriptions: No Action Montelukast [Singulair] 10 mg PO HS FLUoxetine HCL [PROzac] 20 mg PO BID Omeprazole 40 mg PO AC-BID Sodium Bicarbonate Tab 1,950 mg PO W/SUPPER Loratadine 10 mg PO DAILY Methenamine Hippurate 1 gm PO BID Mirabegron [Myrbetriq] 25 mg PO DAILY Ergocalciferol [Vitamin D2 (1250 Mcg = 99108 Iu)] 1,250 mcg PO SUTUTHSA Gabapentin [Neurontin] 300 mg PO BID Bumetanide [BUMEX] 1 mg PO DAILY Sodium Bicarbonate Tab 1,300 mg PO BID-W/MEALS Calcium Acetate 668mg (169mg Calcium) Tab 668 mg PO DAILY PRN PRN Reason: WITH SNACKS predniSONE See Taper PO DAILY Levothyroxine Sodium [Synthroid] 150 mcg PO DAILY traMADol HCL 50 mg PO Q6H PRN PRN Reason: Pain calcitrioL 2 mcg PO MOWEFR Albuterol Inhaler [Ventolin Hfa Inhaler] 2 puff INHALATION RT-Q6H PRN PRN Reason: Shortness Of Breath Ipratropium-Albuterol Nebulize [Duoneb 0.5 mg-3 mg/3 ml Soln] 3 ml INHALATION RT-QID PRN PRN Reason: sob Calcium Acetate 668mg (169mg Calcium) Tab 2,004 mg PO TID-W/MEALS Cephalexin [Keflex] 500 mg PO DAILY Midodrine HCl [ProAmatine] 10 mg PO TID PRN PRN Reason: Blood Pressure - Low Acetaminophen Tab [Tylenol] 650 mg PO Q6HR PRN tab PRN Reason: Mild Pain Or Fever > 100.5 Discharge Medication List FLUoxetine HCL [PROzac] 20 mg PO BID 08/23/18 [History] Montelukast [Singulair] 10 mg PO HS 08/23/18 [History] Omeprazole 40 mg PO AC-BID 11/19/18 [History] Sodium Bicarbonate Tab 1,950 mg PO W/SUPPER 07/22/19 [History] Loratadine 10 mg PO DAILY 12/06/19 [History] Methenamine Hippurate 1 gm PO BID 01/25/21 [History] Mirabegron [Myrbetriq] 25 mg PO DAILY 01/25/21 [History] Albuterol Inhaler [Ventolin Hfa Inhaler] 2 puff INHALATION RT-Q6H PRN 02/07/23 [History] calcitrioL 2 mcg PO MOWEFR 02/07/23 [History] Bumetanide [BUMEX] 1 mg PO DAILY 10/17/23 [History] Ergocalciferol [Vitamin D2 (1250 Mcg = 88748 Iu)] 1,250 mcg PO SUTUTHSA 10/17/23 [History] Gabapentin [Neurontin] 300 mg PO BID 10/17/23 [History] Ipratropium-Albuterol Nebulize [Duoneb 0.5 mg-3 mg/3 ml Soln] 3 ml INHALATION RT-QID PRN 01/04/24 [History] Calcium Acetate 668mg (169mg Calcium) Tab 2,004 mg PO TID-W/MEALS 04/15/24 [History] Calcium Acetate 668mg (169mg Calcium) Tab 668 mg PO DAILY PRN 04/15/24 [History] Cephalexin [Keflex] 500 mg PO DAILY 04/15/24 [History] Sodium Bicarbonate Tab 1,300 mg PO BID-W/MEALS 04/15/24 [History] Levothyroxine Sodium [Synthroid] 150 mcg PO DAILY 04/28/24 [History] Midodrine HCl [ProAmatine] 10 mg PO TID PRN 04/28/24 [History] predniSONE See Taper PO DAILY 04/28/24 [History] Acetaminophen Tab [Tylenol] 650 mg PO Q6HR PRN tab 04/30/24 [Rx] traMADol HCL 50 mg PO Q6H PRN 05/08/24 [History] Follow up Appointment(s)/Referral(s): Sarahy Garcia DO [STAFF PHYSICIAN] - 1 Week (APPOINTMENT MADE ON May @ 10:00AM ) Patient Instructions/Handouts: Moderate Sedation (DC), Fall Prevention (DC), Hematoma (ED) Activity/Diet/Wound Care/Special Instructions: OK TO USE PORT TOMORROW FOR DIALYSIS. MONITOR FOR SIGNS OF INFECTION ie FEVER RASH UNUSUAL DRAINAGE OR SWELLING HARD KNOT ON CHEST CONTACT DR GARCIA TO BE EVALUATED. LEAVE DRESSING ON FOR 24 HOURS OR MORE. OK TO LEAVE ON UNTIL FALLS OFF OR REMOVED AT DIALYSIS. Discharge Disposition: HOME SELF-CARE
--- NOTE | 2024-05-09 13:50 | XR ---
EXAMINATION TYPE: XR chest 1V DATE OF EXAM: 05/09/2024 COMPARISON: 04/29/2024 CLINICAL INDICATION: Female, 78 years old with history of DIALYSIS CATH PLACEMENT; TECHNIQUE: Single frontal view of the chest is obtained. FINDINGS: Right-sided double-lumen hemodialysis catheter with tips within the mid right atrium. Hear t normal size. Mild interstitial prominence is unchanged and may in part be chronic. No consolidation or pleural effusion. Surgical clips within the upper abdomen. IMPRESSION: 1. Right-sided double-lumen hemodialysis catheter with tips at the mid right atrium. 2. Interstitial density may in part be chronic. No acute change. [facility], , 05/09/2024 1:47 PM
[2024-05-09 16:20] VITALS: BP 148/72; PULSE 72
== END 2024-05-09 14:53 | disposition home or self-care (01) ==
LOC: CATHCVL 09:45
PROVIDERS: ATTEND Surgery
DX: N18.6 End stage renal disease (principal); T82.49XA Other complication of vascular dialysis catheter, initial encounter; J44.89 Other specified chronic obstructive pulmonary disease; J84.10 Pulmonary fibrosis, unspecified; E05.00 Thyrotoxicosis with diffuse goiter without thyrotoxic crisis or storm; M35.3 Polymyalgia rheumatica; K21.9 Gastro-esophageal reflux disease without esophagitis; M19.90 Unspecified osteoarthritis, unspecified site; E55.9 Vitamin D deficiency, unspecified; Z79.890 Hormone replacement therapy; Z79.52 Long term (current) use of systemic steroids; Z79.899 Other long term (current) drug therapy; Z87.440 Personal history of urinary (tract) infections; Z98.84 Bariatric surgery status; Z88.1 Allergy status to other antibiotic agents; Z88.5 Allergy status to narcotic agent; Z88.2 Allergy status to sulfonamides; Z91.048 Other nonmedicinal substance allergy status
CPT/HCPCS: 36558; 36589; 80051; 71045; J2250; J3010; J2704; 36581

== ENCOUNTER → 2024-08-13 | Outpatient (CLI) | payer MEDICARE ==
--- NOTE | 2024-08-13 15:52 | XR ---
EXAMINATION TYPE: XR chest 2V DATE OF EXAM: 08/13/2024 3:38 PM COMPARISON: Chest radiographs from 05/09/2024. CLINICAL INDICATION: Female, 79 years old with history of R06.02 SHORTNESS OF BREATH; [facility] TECHNIQUE: XR chest 2V Frontal and lateral views of the chest. FINDINGS: Lungs/Pleura: There is flattening of the diaphragm with increased lucency of the lungs. No evidence o f pneumothorax, pleural effusion or focal consolidation. Pulmonary vascularity: Unremarkable. Heart/mediastinum: Cardiomediastinal silhouette is unremarkable. Musculoskeletal: No acute osseous pathology. Other findings: None Lines/Tubes: Right internal jugular central venous catheter with distal tip at the cavoatrial junction. IMPRESSION: 1. No acute cardiopulmonary disease process. 2. COPD changes. [facility], , 08/13/2024 3:50 PM
== END | disposition home or self-care (01) ==
LOC: RADXRMAIN 15:16
PROVIDERS: ATTEND Internal Medicine Geriatric Medicine
DX: J44.9 Chronic obstructive pulmonary disease, unspecified (principal)
CPT/HCPCS: 71046

== ENCOUNTER 2024-08-15 16:32 | Inpatient (IN) | payer MEDICARE ==
--- NOTE | 2024-08-15 18:22 | ED ---
General Adult HPI - General Chief complaint: Shortness of Breath Stated complaint: lizz Time Seen by Provider: 08/15/24 17:31 Source: patient, family, RN notes reviewed Mode of arrival: ambulatory Limitations: no limitations - History of Present Illness Initial comments: Patient is an 79-year-old female present to the emergency department with concerns with difficulty breathing. Symptoms have been occurring over the past 7 to 10 days. Patient does have cough, dry nonproductive. Patient was diagnosed with RSV as an outpatient. Patient does have history of asthma. Patient has been on 2 different antibiotics without improvement of symptoms. Patient called Dr. Roger and was advised to come to the emergency department. - Related Data Home Medications Medication Instructions Recorded Confirmed FLUoxetine HCL [PROzac] 20 mg PO BID 08/23/18 05/09/24 Montelukast [Singulair] 10 mg PO HS 08/23/18 05/09/24 Omeprazole 40 mg PO AC-BID 11/19/18 05/09/24 Sodium Bicarbonate Tab 1,950 mg PO W/SUPPER 07/22/19 05/09/24 Loratadine 10 mg PO DAILY 12/06/19 05/09/24 Methenamine Hippurate 1 gm PO BID 01/25/21 05/09/24 Mirabegron [Myrbetriq] 25 mg PO DAILY 01/25/21 05/09/24 Albuterol Inhaler [Ventolin Hfa 2 puff INHALATION RT-Q6H PRN 02/07/23 05/08/24 Inhaler] calcitrioL 2 mcg PO MOWEFR 02/07/23 05/09/24 Bumetanide [BUMEX] 1 mg PO DAILY 10/17/23 05/09/24 Ergocalciferol [Vitamin D2 (1250 1,250 mcg PO SUTUTHSA 10/17/23 05/09/24 Mcg = 98293 Iu)] Gabapentin [Neurontin] 300 mg PO BID 10/17/23 05/09/24 Ipratropium-Albuterol Nebulize 3 ml INHALATION RT-QID PRN 01/04/24 05/08/24 [Duoneb 0.5 mg-3 mg/3 ml Soln] Calcium Acetate 668mg (169mg 2,004 mg PO TID-W/MEALS 04/15/24 05/09/24 Calcium) Tab Calcium Acetate 668mg (169mg 668 mg PO DAILY PRN 04/15/24 05/09/24 Calcium) Tab Cephalexin [Keflex] 500 mg PO DAILY 04/15/24 05/09/24 Sodium Bicarbonate Tab 1,300 mg PO BID-W/MEALS 04/15/24 05/09/24 Levothyroxine Sodium [Synthroid] 150 mcg PO DAILY 04/28/24 05/09/24 Midodrine HCl [ProAmatine] 10 mg PO TID PRN 04/28/24 05/09/24 predniSONE See Taper PO DAILY 04/28/24 05/09/24 traMADol HCL 50 mg PO Q6H PRN 05/08/24 05/09/24 Previous Rx's Medication Instructions Recorded Acetaminophen Tab [Tylenol] 650 mg PO Q6HR PRN tab 04/30/24 Allergies Allergy/AdvReac Type Severity Reaction Status Date / Time adhesive tape Allergy Rash/Hives Verified 08/15/24 17:17 Sulfa (Sulfonamide Allergy Itching Verified 08/15/24 17:17 Antibiotics) codeine AdvReac Nausea Verified 08/15/24 17:17 tetracycline AdvReac Nausea & Verified 08/15/24 17:17 Vomiting Review of Systems ROS Statement: Those systems with pertinent positive or pertinent negative responses have been documented in the HPI. ROS Other: All systems not noted in ROS Statement are negative. Constitutional: Denies: fever Eyes: Denies: eye pain ENT: Denies: ear pain Respiratory: Reports: as per HPI, cough, dyspnea Cardiovascular: Denies: chest pain Endocrine: Reports: fatigue Musculoskeletal: Denies: back pain Past Medical History Past Medical History: Asthma, Cancer, COPD, Osteoarthritis (OA), Renal Disease, Thyroid Disorder Additional Past Medical History / Comment(s): ESRD- hemodialysis MOWEFR 3 1/2 hours, dialysis cath rt chest, kidney stones and UTI, hx lymphedema, hx pulmonary fibrosis, hx graves, hx rt foot torn ligaments, hx osteoporosis, hypotension; vitamin D deficiency, hypocalcemia, SKIN CANCER REMOVED FROM BRIDGE OF NOSE., PMR - polymyalgia rhematalia; currently bruised from neck to right b reast History of Any Multi-Drug Resistant Organisms: CRE Date of last positivie culture/infection: 10/16/18 MDRO-CRE PER [facility] NOT [facility] MDRO Source:: Urine Past Surgical History: Bariatric Surgery, Orthopedic Surgery Additional Past Surgical History / Comment(s): hx bariatric surgery-Kye En Y,lung biopsy,radioactive iodine-tx thyroid,rectal and bladder suspensions,vaginal surgery as a child,partha carpel tunnel,rt knee meniscus repair,D&C x3, left arm fistula 02/08/19(not working), left broken wrist, broken right wrist Past Anesthesia/Blood Transfusion Reactions: Previous Problems w/ Anesthesia Additional Past Anesthesia/Blood Transfusion Reaction / Comment(s): decrease bp with anesthesia, no problems with prior blood transfusion Past Psychological History: No Psychological Hx Reported Smoking Status: Never smoker - Past Family History Father Family Medical History: Pulmonary Embolus Additional Family Medical History / Comment(s): . Mother Family Medical History: Cancer Additional Family Medical History / Comment(s): colon ca, bone ca Sister(s) Family Medical History: Cancer Additional Family Medical History / Comment(s): kidney ca Daughter(s) Additional Family Medical History / Comment(s): lymphedema in legs Brother(s) Family Medical History: Cancer Additional Family Medical History / Comment(s): skin cancer General Exam Limitations: no limitations General appearance: alert, in no apparent distress Head exam: Present: normocephalic Eye exam: Present: normal appearance Neck exam: Present: normal inspection Respiratory exam: Present: wheezes, rhonchi Cardiovascular Exam: Present: regular rate, normal rhythm GI/Abdominal exam: Present: soft. Absent: tenderness Extremities exam: Present: normal inspection. Absent: pedal edema, calf tenderness Neurological exam: Present: alert Psychiatric exam: Present: normal affect, normal mood Skin exam: Present: normal color Course Vital Signs 08/15/24 17:12 Temperature 97.9 F Pulse Rate 84 Respiratory 18 Rate Blood Pressure 131/77 O2 Sat by Pulse 93 L Oximetry Medical Decision Making - Medical Decision Making Was pt. sent in by a medical professional or institution (, PA, COTTON EXPERT, urgent care, hospital, or care home...) When possible be specific @ -No Did you speak to anyone other than the patient for history (EMS, parent, family, police, friend...)? What history was obtained from this source @ -Family's present helps provide history including onset of patient's symptoms Did you review nursing and triage notes (agree or disagree)? Why? @ -I reviewed and agree with nursing and triage notes Were old charts reviewed (outside hosp., previous admission, EMS record, old EKG, old radiological studies, urgent care reports/EKG's, care home records)? Report findings @ -No old charts were reviewed Differential Diagnosis (chest pain, altered mental status, abdominal pain women, abdominal pain men, vaginal bleeding, weakness, fever, dyspnea, syncope, headache, dizziness, GI bleed, back pain, seizure, CVA, palpatations, mental health, musculoskeletal)? @ -Differential Dyspnea: Coronary syndrome, arrhythmia, tamponade, asthma, COPD, pulmonary embolism, pneumonia, pneumothorax, pulmonary effusion, anaphylaxis, diabetic ketoacidosis, flailed chest, pulmonary contusion, diaphragmatic rupture, anemia, neuromuscular, this is not meant to be an all-inclusive list. EKG interpreted by me (3pts min.). @ -As above X-rays interpreted by me (1pt min.). @ -Chest x-ray shows no acute process CT interpreted by me (1pt min.). @ -None done U/S interpreted by me (1pt. min.). @ -None done What testing was considered but not performed or refused? (CT, X-rays, U/S, labs)? Why? @ -None What meds were considered but not given or refused? Why? @ -None Did you discuss the management of the patient with other professionals (professionals i.e. , PA, COTTON EXPERT, lab, RT, psych nurse, licensed clinical social worker, supervisor sewer system, teacher, soil science technical officer, pillowcase folder)? Give summary @ -Case was discussed with Dr. Hooker who will admit covering Dr. Mayer Was smoking cessation discussed for >3mins.? @ -No Was critical care preformed (if so, how long)? @ -No Were there social determinants of health that impacted care today? How? (Homelessness, low income, unemployed, alcoholism, drug addiction, transpo rtation, low edu. Level, literacy, decrease access to med. care, skilled nursing, rehab)? @ -No Was there de-escalation of care discussed even if they declined (Discuss DNR or withdrawal of care, Hospice)? DNR status @ -No What co-morbidities impacted this encounter? (DM, HTN, Smoking, COPD, CAD, Cancer, CVA, ARF, Chemo, Hep., AIDS, mental health diagnosis, sleep apnea, morbid obesity)? @ -COPD history Was patient admitted / discharged? Hospital course, mention meds given and route, prescriptions, significant lab abnormalities, going to OR and other pertinent info. @ -Patient presents with dyspnea and has significant wheezing. RSV is positive. Patient will be admitted. Admission orders written. Patient and family are updated. Undiagnosed new problem with uncertain prognosis? @ -No Drug Therapy requiring intensive monitoring for toxicity (Heparin, Nitro, Insulin, Cardizem)? @ -No Were any procedures done? @ -No Diagnosis/symptom? @ -COPD Acute, or Chronic, or Acute on Chronic? @ -Acute Uncomplicated (without systemic symptoms) or Complicated (systemic symptoms)? @ -Complicated with RSV infection Side effects of treatment? @ -No Exacerbation, Progression, or Severe Exacerbation? @ -No Poses a threat to life or bodily function? How? (Chest pain, USA, MA, pneumonia, PE, COPD, DKA, ARF, appy, cholecystitis, CVA, Diverticulitis, Homicidal, Suicidal, threat to staff... and all critical care pts) @ -Threat to pulmonary function - Lab Data Result diagrams: 08/15/24 18:56 08/15/24 18:56 Lab Results 08/15/24 08/15/24 08/15/24 Range/Units 18:56 18:56 18:56 WBC 7.4 (3.8-10.6) k/uL RBC 3.28 L (3.80-5.40) m/uL Hgb 10.7 L (11.4-16.0) gm/dL Hct 35.1 (34.0-46.0) % MCV 106.8 H (80.0-100.0) fL MCH 32.6 (25.0-35.0) pg MCHC 30.5 L (31.0-37.0) g/dL RDW 14.4 (11.5-15.5) % Plt Count 175 (150-450) k/uL MPV 8.3 Neutrophils % 83 % Lymphocytes % 10 % Monocytes % 5 % Eosinophils % 0 % Basophils % 0 % Neutrophils # 6.1 (1.3-7.7) k/uL Lymphocytes # 0.7 L (1.0-4.8) k/uL Monocytes # 0.4 (0-1.0) k/uL Eosinophils # 0.0 (0-0.7) k/uL Basophils # 0.0 (0-0.2) k/uL Hypochromasia Slight Macrocytosis Moderate PT 10.7 (10.0-12.5) sec INR 1.0 (<1.2) APTT 20.8 L (22.0-30.0) sec Sodium 135 L (137-145) mmol/L Potassium 3.6 (3.5-5.1) mmol/L Chloride 95 L (98-107) mmol/L Carbon Dioxide 33 H (22-30) mmol/L Anion Gap 7 mmol/L BUN 45 H (7-17) mg/dL Creatinine 2.30 H (0.52-1.04) mg/dL Est GFR (CKD-EPI)AfAm 23 (>60 ml/min/1.73 sqM) Est GFR (CKD-EPI)NonAf 20 (>60 ml/min/1.73 sqM) Glucose 113 H (74-99) mg/dL Plasma Lactic Acid Klever (0.7-2.0) mmol/L Calcium 8.8 (8.4-10.2) mg/dL Total Bilirubin 0.7 (0.2-1.3) mg/dL AST 45 H (14-36) U/L ALT 43 H (4-34) U/L Alkaline Phosphatase 99 (38-126) U/L Total Protein 6.3 (6.3-8.2) g/dL Albumin 3.7 (3.5-5.0) g/dL Influenza Type A (PCR) (Not Detectd) Influenza Type B (PCR) (Not Detectd) RSV (PCR) (Not Detectd) SARS-CoV-2 (PCR) (Not Detectd) 08/15/24 08/15/24 Range/Units 18:56 18:56 WBC (3.8-10.6) k/uL RBC (3.80-5.40) m/uL Hgb (11.4-16.0) gm/dL Hct (34.0-46.0) % MCV (80.0-100.0) fL MCH (25.0-35.0) pg MCHC (31.0-37.0) g/dL RDW (11.5-15.5) % Plt Count (150-450) k/uL MPV Neutrophils % % Lymphocytes % % Monocytes % % Eosinophils % % Basophils % % Neutrophils # (1.3-7.7) k/uL Lymphocytes # (1.0-4.8) k/uL Monocytes # (0-1.0) k/uL Eosinophils # (0-0.7) k/uL Basophils # (0-0.2) k/uL Hypochromasia Macrocytosis PT (10.0-12.5) sec INR (<1.2) APTT (22.0-30.0) sec Sodium (137-145) mmol/L Potassium (3.5-5.1) mmol/L Chloride (98-107) mmol/L Carbon Dioxide (22-30) mmol/L Anion Gap mmol/L BUN (7-17) mg/dL Creatinine (0.52-1.04) mg/dL Est GFR (CKD-EPI)AfAm (>60 ml/min/1.73 sqM) Est GFR (CKD-EPI)NonAf (>60 ml/min/1.73 sqM) Glucose (74-99) mg/dL Plasma Lactic Acid Klever 1.1 (0.7-2.0) mmol/L Calcium (8.4-10.2) mg/dL Total Bilirubin (0.2-1.3) mg/dL AST (14-36) U/L ALT (4-34) U/L Alkaline Phosphatase (38-126) U/L Total Protein (6.3-8.2) g/dL Albumin (3.5-5.0) g/dL Influenza Type A (PCR) Not Detected (Not Detectd) Influenza Type B (PCR) Not Detected (Not Detectd) RSV (PCR) Detected A (Not Detectd) SARS-CoV-2 (PCR) Not Detected (Not Detectd) Disposition Clinical Impression: Acute exacerbation of chronic obstructive pulmonary disease Disposition: ADMITTED IP TO THIS HOSP Is patient prescribed a controlled substance at d/c from ED?: No Referrals: Bienvenido Hogue MD [Primary Care Provider] - 1-2 days Time of Disposition: 21:27
--- NOTE | 2024-08-15 18:29 | XR ---
EXAMINATION TYPE: XR chest 2V DATE OF EXAM: 08/15/2024 CLINICAL INDICATION: Female, 79 years old with history of difficulty breathing, TECHNIQUE: Frontal and lateral views of the chest are obtained. COMPARISON: Chest x-ray 2 days earlier FINDINGS: Stable right internal jugular dialysis catheter. There is no suspicious new peripheral foc al air space opacity, pleural effusion, or pneumothorax seen. Underlying Emphysematous change is rede monstrated. The cardiac silhouette size remains within normal limits with atherosclerotic change aort ic knob. The osseous structures are intact. Surgical clips in the abdomen are partially imaged. IMPRESSION: Chronic changes without acute pulmonary process. No significant change from most recent s tudy. [facility], , 08/15/2024 6:27 PM
[2024-08-15 19:36] LABS: Basophils % (A) 0 %; Eosinophils % (A) 0 %; HCT 35.1 % (34.0-46.0); HGB 10.7 gm/dL (11.4-16.0); Hypochromasia Slight; Lymphocytes # (A) 0.7 k/uL (1.0-4.8); Lymphocytes % (A) 10 %; MCH 32.6 pg (25.0-35.0); MCHC 30.5 g/dL (31.0-37.0); MCV 106.8 fL (80.0-100.0); Macrocytosis Moderate; Mean Platelet Volume 8.3; Monocytes # (A) 0.4 k/uL (0-1.0); Monocytes % (A) 5 %; Neutrophils # (A) 6.1 k/uL (1.3-7.7); Neutrophils % (A) 83 %; Platelet Count 175 k/uL (150-450); RBC 3.28 m/uL (3.80-5.40); RDW 14.4 % (11.5-15.5); WBC 7.4 k/uL (3.8-10.6)
[2024-08-15 19:47] LABS: ALT 43 U/L (4-34); AST 45 U/L (14-36); African American GFR (CKD) 23 (>60 ml/min/1.73 sqM); Albumin 3.7 g/dL (3.5-5.0); Alkaline Phosphatase 99 U/L (38-126); Anion Gap 7 mmol/L; Blood Urea Nitrogen 45 mg/dL (7-17); Calcium 8.8 mg/dL (8.4-10.2); Carbon Dioxide 33 mmol/L (22-30); Chloride 95 mmol/L (98-107); Glucose 113 mg/dL (74-99); Non-African American GFR(CKD) 20 (>60 ml/min/1.73 sqM); Potassium 3.6 mmol/L (3.5-5.1); Sodium 135 mmol/L (137-145); Total Bilirubin 0.7 mg/dL (0.2-1.3); Total Protein 6.3 g/dL (6.3-8.2)
[2024-08-15 19:50] LABS: Prothrombin Time 10.7 sec (10.0-12.5)
[2024-08-15 19:58] LABS: Partial Thromboplastin Time 20.8 sec (22.0-30.0)
[2024-08-15 20:10] LABS: Influenza A Not Detected (Not Detectd); Influenza B Not Detected (Not Detectd); RSV Detected (Not Detectd)
[2024-08-15] MEDS ORDERED: IPRATROPIUM-ALBUTEROL 3 ML NEB INHALATION PRN (21:27)
[2024-08-15] MEDS ORDERED: NALOXONE 0.4 MG/ML 1 ML VIAL IVP PRN (21:27)
[2024-08-15] MEDS: methylPREDNISolone SOD SUCCI 125 MG/2 ML VIAL IV STA (22:50)
[2024-08-15] MEDS: methylPREDNISolone SOD SUCCI 125 MG/2 ML VIAL IV SCH (23:28)
[2024-08-15] MEDS: AZITHROMYCIN 500 MG in SODIUM CHLORIDE 0.9% 250 ML IVPB SCH (23:29)
--- NOTE | 2024-08-16 04:17 | P.CNPUL ---
History of Present Illness Consult date: 08/16/24 Requesting physician: Jaden Chappell Reason for consult: dyspnea Chief complaint: Shortness of breath, cough History of present illness: Patient is an 79-year-old female with past medical history significant for mild intermittent asthma, end-stage renal disease on hemodialysis, polymyalgia rheumatica, hypothyroidism, cerebral aneurysm. Chief complaint is increase work of breathing over the last week. Also, endorses associated dry cough that is nonproductive. Tested positive for RSV as an outpatient. Patient does have history of mild intermittent bronchial asthma. Lifelong non-smoker. Follows in the pulmonary office with Dr. Roger. Directed to the emergency department yesterday evening. Workup in the emergency department including viral 4 Plex again positive for RSV. Chest x-ray shows chronic parenchymal changes without any focal infiltrates, pleural effusions, pneumothoraces. Right subclavian permacath. CBC: WBC count 7.4, hemoglobin 10.7, platelets 175. CMP: Sodium 135, potassium 3.6, chloride 95, serum bicarb 33, BUN 45, creatinine 2.3, glucose 113. Lactic 1.1. LFTs unremarkable. Patient currently be evaluated on the general medical floor. She is resting comfortably on 1 L/min nasal cannula. Expiratory wheezing and bronchospastic cough. No respiratory distress. States she originally tested positive for RSV at her PCPs office, Dr. Hogue, approximately 2 weeks ago. No improvement with supportive care including steroid burst taper and albuterol nebs. Continues to have shortness of breath with associated persistent dry non productive cough and wheezing. Chest discomfort, only with coughing fits. States she has Tessalon Perles at home, which helps with the cough. Fevers and chills have subsided. Tolerating oral intake including fluids and food. Previous episodes of diarrhea, which have subsided. Current vital signs: Temperature 97.7 F, heart rate 64 bpm, blood pressure 133/81 mmHg, nontachypneic, SpO2 recorded at 94% on 1 L/min nasal cannula. Review of Systems Constitutional: Reports fatigue, Denies chills, Denies fever, Denies night sweats, Denies poor appetite, Denies weakness, Denies weight gain, Denies weight loss Ears, nose, mouth and throat: Reports headache, Denies nasal congestion, Denies nasal discharge, Denies post-nasal drip, Denies sinus pain, Denies sinus p ressure, Denies sore throat Cardiovascular: Reports dyspnea on exertion, Reports shortness of breath, Denies chest pain (Only with coughing fits), Denies leg edema, Denies lightheadedness, Denies orthopnea, Denies palpitations, Denies paroxysmal nocturnal dyspnea, Denies syncope Respiratory: Reports congestion, Reports cough, Reports pain on inspiration, Reports respiratory infections, Reports wheezing, Denies cough with sputum, Denies hemoptysis, Denies home oxygen Gastrointestinal: Reports diarrhea (Has subsided), Denies abdominal pain, Denies nausea, Denies vomiting Genitourinary: Denies dysuria Musculoskeletal: Denies limitation of motion Integumentary: Denies rash, Denies unusual bruising Neurological: Denies seizures, Denies syncope Psychiatric: Denies anxiety, Denies depression Past Medical History Past Medical History: Asthma, Cancer, COPD, Dialysis, Osteoarthritis (OA), Renal Disease, Thyroid Disorder Additional Past Medical History / Comment(s): ESRD- hemodialysis MOWEFR 3 1/2 hours, dialysis cath rt chest, kidney stones and UTI, hx lymphedema, hx pulmonary fibrosis, hx graves, hx rt foot torn ligaments, hx osteoporosis, hypotension; vitamin D deficiency, hypocalcemia, SKIN CANCER REMOVED FROM BRIDGE OF NOSE., PMR - polymyalgia rhematalia; currently bruised from neck to right breast History of Any Multi-Drug Resistant Organisms: CRE Date of last positivie culture/infection: 10/16/18 MDRO-CRE PER [facility] NOT [facility] MDRO Source:: Urine Past Surgical History: Bariatric Surgery, Orthopedic Surgery Additional Past Surgical History / Comment(s): hx bariatric surgery-Kye En Y,lung biopsy,radioactive iodine-tx thyroid,rectal and bladder suspensions,vaginal surgery as a child,partha carpel tunnel,rt knee meniscus repair,D&C x3, left arm fistula 02/08/19(not working), left broken wrist, broken right wrist Past Anesthesia/Blood Transfusion Reactions: Previous Problems w/ Anesthesia Additional Past Anesthesia/Blood Transfusion Reaction / Comment(s): decrease bp with anesthesia, no problems with prior blood transfusion Past Psychological History: No Psychological Hx Reported Smoking Status: Never smoker Past Alcohol Use History: None Reported Past Drug Use History: None Reported - Past Family History Father Family Medical History: Pulmonary Embolus Additional Family Medical History / Comment(s): . Mother Family Medical History: Cancer Additional Family Medical History / Comment(s): colon ca, bone ca Sister(s) Family Medical History: Cancer Additional Family Medical History / Comment(s): kidney ca Daughter(s) Additional Family Medical History / Comment(s): lymphedema in legs Brother(s) Family Medical History: Cancer Additional Family Medical History / Comment(s): skin cancer Medications and Allergies Home Medications Medication Instructions Recorded Confirmed Type FLUoxetine HCL [PROzac] 20 mg PO BID 08/23/18 08/16/24 History Montelukast [Singulair] 10 mg PO HS 08/23/18 08/16/24 History Omeprazole 40 mg PO AC-BID 11/19/18 08/16/24 History Sodium Bicarbonate Tab 1,950 mg PO W/SUPPER 07/22/19 08/16/24 History Loratadine 10 mg PO DAILY 12/06/19 08/16/24 History Methenamine Hippurate 1 gm PO BID 01/25/21 08/16/24 History Mirabegron [Myrbetriq] 25 mg PO DAILY 01/25/21 08/16/24 History Albuterol Inhaler [Ventolin Hfa 2 puff INHALATION RT-Q6H PRN 02/07/23 08/16/24 History Inhaler] calcitrioL 2 mcg PO MOWEFR 02/07/23 08/16/24 History Bumetanide [BUMEX] 1 mg PO DAILY 10/17/23 08/16/24 History Ergocalciferol [Vitamin D2 (1250 1,250 mcg PO SUTUTHSA 10/17/23 08/16/24 History Mcg = 71943 Iu)] Gabapentin [Neurontin] 300 mg PO BID 10/17/23 08/16/24 History Sodium Bicarbonate Tab 1,300 mg PO BID@0800,1200 04/15/24 08/16/24 History Levothyroxine Sodium [Synthroid] 150 mcg PO DAILY 04/28/24 08/16/24 History predniSONE 5 mg PO QID 04/28/24 08/16/24 History Acetaminophen Tab [Tylenol] 650 mg PO Q6HR PRN tab 04/30/24 08/16/24 Rx Baclofen 5 mg PO BID 08/16/24 08/16/24 History Benzonatate [Tessalon Perles] 100 mg PO Q4H PRN 08/16/24 08/16/24 History Calcium Acetate [Phoslo] 1,334 mg PO TID-W/MEALS 08/16/24 08/16/24 History Calcium Acetate [Phoslo] 667 mg PO DIRECTED PRN 08/16/24 08/16/24 History Levofloxacin [Levaquin] 500 mg PO DAILY 08/16/24 08/16/24 History Magnesium Chloride W/ D 1 tab PO DAILY 08/16/24 08/16/24 History Potassium Chloride [Klor-Con M20] 20 meq PO DAILY 08/16/24 08/16/24 History metroNIDAZOLE [Flagyl] 250 mg PO DAILY 08/16/24 08/16/24 History Allergies Allergy/AdvReac Type Severity Reaction Status Date / Time adhesive tape Allergy Rash/Hives Verified 08/16/24 10:17 Sulfa (Sulfonamide Allergy Itching Verified 08/16/24 10:17 Antibiotics) codeine AdvReac Nausea Verified 08/16/24 10:17 tetracycline AdvReac Nausea & Verified 08/16/24 10:17 Vomiting Physical Exam Vitals: Vital Signs Temp Pulse Pulse Resp BP BP Pulse Ox 08/16/24 02:38 97.7 F 64 16 133/81 94 L 08/16/24 00:02 98 F 63 18 143/70 93 L 08/15/24 22:29 98 F 72 18 145/78 93 L 08/15/24 17:12 97.9 F 84 18 131/77 93 L Intake and Output 08/15/24 08/15/24 08/16/24 14:59 22:59 06:59 Other: Weight 57.606 kg 57.606 kg GENERAL EXAM: Alert, 79-year-old white female, comfortable in no apparent distress. HEAD: Normocephalic and atraumatic EYES: Normal reaction of pupils, equal size. NOSE: Clear with pink turbinates. THROAT: No erythema or exudates. NECK: No masses, no JVD. CHEST: No chest wall deformity. Tunneled right chest permacath. LUNGS: Equal air entry with diffuse expiratory wheezing heard bilaterally and throughout with bronchospastic cough. On 1 L/min nasal cannula. No conversational dyspnea or accessory muscle use while at rest CVS: S1 and S2 normal with no audible murmur, regular rhythm. No extra heart sounds ABDOMEN: No hepatosplenomegaly, active bowel sounds, no guarding or rigidity. SPINE: No scoliosis or deformity SKIN: No rashes CENTRAL NERVOUS SYSTEM: No focal deficits, tone is normal in all 4 extremities. EXTREMITIES: There is no peripheral edema, clubbing, or cyanosis. Peripheral pulses are intact. Left arm fistula, no thrill Results - Laboratory Findings CBC and BMP: 08/15/24 18:56 08/15/24 18:56 PT/INR, D-dimer PT 10.7 sec (10.0-12.5) 08/15/24 18:56 INR 1.0 (<1.2) 08/15/24 18:56 Abnormal lab findings: Abnormal Labs 08/15/24 08/15/24 08/15/24 18:56 18:56 18:56 RBC 3.28 L Hgb 10.7 L MCV 106.8 H MCHC 30.5 L Lymphocytes # 0.7 L APTT 20.8 L Sodium 135 L Chloride 95 L Carbon Dioxide 33 H BUN 45 H Creatinine 2.30 H Glucose 113 H AST 45 H ALT 43 H RSV (PCR) 08/15/24 18:56 RBC Hgb MCV MCHC Lymphocytes # APTT Sodium Chloride Carbon Dioxide BUN Creatinine Glucose AST ALT RSV (PCR) Detected A - Diagnostic Findings Chest x-ray: image reviewed Assessment and Plan Assessment: Exacerbation of mild intermittent bronchial asthma, secondary to acute RSV bronchitis Acute hypoxemic respiratory failure, currently on 1 L/min nasal cannula, secondary to above End-stage renal disease, maintained on hemodialysis with a Monday, Monday, Monday schedule Anemia of chronic disease History of nephrolithiasis and frequent urinary tract infections History of hypothyroidism history of polymyalgia rheumatica Lifelong non-smoker Plan: Patient's medications, labs, chest x-ray reviewed Continue supportive care Start combination of DuoNebs, Symbicort inhaler and IV Solu-Medrol Tylenol as needed for fever, Tessalon Perles as antitussive Previously started empirically on azithromycin in the ED Consult nephrology for hemodialysis We will continue to follow I have personally seen and examined the patient, performed the documentation and the assessment and plan as written. Number of minutes spent on the visit:20 This is a joint evaluation that was done along with the nurse practitioner. The patient is hospitalized for increased dyspnea, cough congestion chest tightness and wheezing. The patient is known to have end-stage renal disease and she has been maintained on hemodialysis. The patient also has history of bronchial asthma. The patient tested positive for RSV. She is currently on 1 L of oxygen by nasal cannula. Chest x-ray shows no acute abnormalities. The patient has chronic changes without any acute cardiopulmonary process. Blood work was reviewed. Hemoglobin is 10.7. The white cell count 7.4. Electrolytes are s table. The patient will need hemodialysis today. He is currently on DuoNeb updrafts. He is also on Symbicort and IV Solu-Medrol 60 mg every 6 hours. Rest of the home medication resumed. No altered mentation. Will continue to follow. Time with Patient: Greater than 30
[2024-08-16] MEDS: IPRATROPIUM-ALBUTEROL 3 ML NEB INHALATION STA (09:29)
[2024-08-16] MEDS: SYMBICORT 160-4.5 MCG INHALER INHALATION SCH (09:29)
[2024-08-16] MEDS: IPRATROPIUM-ALBUTEROL 3 ML NEB INHALATION SCH (09:30)
--- NOTE | 2024-08-16 11:08 | P.NPCON ---
History of Present Illness - Reason for Consult end stage renal disease - History of Present Illness Reason for consultation: End-stage renal disease History of present illness: Patient is 79-year-old female seen in renal consultation for end-stage renal disease. She is maintained on hemodialysis on Monday schedule via right chest permacath. Patient came to the hospital due to shortness of breath. Patient states she has been having progressive nonproductive cough and shortness of breath for almost 2 weeks now. Patient states she did see her PCP initially and was given course of steroids and antibiotics. She did test positive for RSV this admission. Patient says she is also had intermittent fevers. She does make good amount of urine. No vomiting or diarrhea. Did have chest discomfort over the last 2 weeks but none right now. Oral intake is fair. Denies history of diabetes or coronary artery disease. Vital signs are stable. General: No acute distress. HEENT: Head exam is unremarkable. LUNGS: No audible rhonchi or wheezes. HEART: Rate and Rhythm are regular. ABDOMEN: Nontender. EXTREMITITES: Chronic edema. Nonpitting. Past Medical History Past Medical History: Asthma, Cancer, COPD, Dialysis, Osteoarthritis (OA), Renal Disease, Thyroid Disorder Additional Past Medical History / Comment(s): ESRD- hemodialysis MOWEFR 3 1/2 hours, dialysis cath rt chest, kidney stones and UTI, hx lymphedema, hx pulmonary fibrosis, hx graves, hx rt foot torn ligaments, hx osteoporosis, hypotension; vitamin D deficiency, hypocalcemia, SKIN CANCER REMOVED FROM BRIDGE OF NOSE., PMR - polymyalgia rhematalia; currently bruised from neck to right breast History of Any Multi-Drug Resistant Organisms: CRE Date of last positivie culture/infection: 10/16/18 MDRO-CRE PER [facility] NOT [facility] MDRO Source:: Urine Past Surgical History: Bariatric Surgery, Orthopedic Surgery Additional Past Surgical History / Comment(s): hx bariatric surgery-Kye En Y,lung biopsy,radioactive iodine-tx thyroid,rectal and bladder suspensions,vaginal surgery as a child,partha carpel tunnel,rt knee meniscus repair,D&C x3, left arm fistula 02/08/19(not working), left broken wrist, broken right wrist Past Anesthesia/Blood Transfusion Reactions: Previous Problems w/ Anesthesia Additional Past Anesthesia/Blood Transfusion Reaction / Comment(s): decrease bp with anesthesia, no problems with prior blood transfusion Past Psychological History: No Psychological Hx Reported Smoking Status: Never smoker Past Alcohol Use History: None Reported Past Drug Use History: None Reported - Past Family History Father Family Medical History: Pulmonary Embolus Additional Family Medical History / Comment(s): . Mother Family Medical History: Cancer Additional Family Medical History / Comment(s): colon ca, bone ca Sister(s) Family Medical History: Cancer Additional Family Medical History / Comment(s): kidney ca Daughter(s) Additional Family Medical History / Comment(s): lymphedema in legs Brother(s) Family Medical History: Cancer Additional Family Medical History / Comment(s): skin cancer Medications and Allergies Home Medications Medication Instructions Recorded Confirmed Type FLUoxetine HCL [PROzac] 20 mg PO BID 08/23/18 08/16/24 History Montelukast [Singulair] 10 mg PO HS 08/23/18 08/16/24 History Omeprazole 40 mg PO AC-BID 11/19/18 08/16/24 History Sodium Bicarbonate Tab 1,950 mg PO W/SUPPER 07/22/19 08/16/24 History Loratadine 10 mg PO DAILY 12/06/19 08/16/24 History Methenamine Hippurate 1 gm PO BID 01/25/21 08/16/24 History Mirabegron [Myrbetriq] 25 mg PO DAILY 01/25/21 08/16/24 History Albuterol Inhaler [Ventolin Hfa 2 puff INHALATION RT-Q6H PRN 02/07/23 08/16/24 History Inhaler] calcitrioL 2 mcg PO MOWEFR 02/07/23 08/16/24 History Bumetanide [BUMEX] 1 mg PO DAILY 10/17/23 08/16/24 History Ergocalciferol [Vitamin D2 (1250 1,250 mcg PO SUTUTHSA 10/17/23 08/16/24 History Mcg = 56003 Iu)] Gabapentin [Neurontin] 300 mg PO BID 10/17/23 08/16/24 History Sodium Bicarbonate Tab 1,300 mg PO BID@0800,1200 04/15/24 08/16/24 History Levothyroxine Sodium [Synthroid] 150 mcg PO DAILY 04/28/24 08/16/24 History predniSONE 5 mg PO QID 04/28/24 08/16/24 History Acetaminophen Tab [Tylenol] 650 mg PO Q6HR PRN tab 04/30/24 08/16/24 Rx Baclofen 5 mg PO BID 08/16/24 08/16/24 History Benzonatate [Tessalon Perles] 100 mg PO Q4H PRN 08/16/24 08/16/24 History Calcium Acetate [Phoslo] 1,334 mg PO TID-W/MEALS 08/16/24 08/16/24 History Calcium Acetate [Phoslo] 667 mg PO DIRECTED PRN 08/16/24 08/16/24 History Levofloxacin [Levaquin] 500 mg PO DAILY 08/16/24 08/16/24 History Magnesium Chloride W/ D 1 tab PO DAILY 08/16/24 08/16/24 History Potassium Chloride [Klor-Con M20] 20 meq PO DAILY 08/16/24 08/16/24 History metroNIDAZOLE [Flagyl] 250 mg PO DAILY 08/16/24 08/16/24 History Allergies Allergy/AdvReac Type Severity Reaction Status Date / Time adhesive tape Allergy Rash/Hives Verified 08/16/24 10:17 Sulfa (Sulfonamide Allergy Itching Verified 08/16/24 10:17 Antibiotics) codeine AdvReac Nausea Verified 08/16/24 10:17 tetracycline AdvReac Nausea & Verified 08/16/24 10:17 Vomiting Physical Exam Vitals: Vital Signs Temp Pulse Pulse Resp BP BP Pulse Ox 08/16/24 08:21 98.0 F 64 20 128/78 94 L 08/16/24 02:38 97.7 F 64 16 133/81 94 L 08/16/24 00:02 98 F 63 18 143/70 93 L 08/15/24 22:29 98 F 72 18 145/78 93 L 08/15/24 17:12 97.9 F 84 18 131/77 93 L Intake and Output 08/15/24 08/16/24 08/16/24 22:59 06:59 14:59 Intake Total 1650 Balance 1650 Intake: Oral 1650 Other: # Voids 3 Weight 57.606 kg 57.606 kg Results - Lab Results Most recent lab results Calcium 8.8 mg/dL (8.4-10.2) 08/15/24 18:56 08/15/24 18:56 08/15/24 18:56 Assessment and Plan Plan: Assessment: 1. End-stage renal disease maintained on hemodialysis on Monday schedule. Via permacath. She has a clotted AV graft. 2. Acute RSV pneumonia. 3. Chronic kidney disease mineral bone disease. 4. Acute COPD exacerbation. Plan: Hemodialysis today. Thank you for the consultation. I will continue to follow the patient with you during her hospital stay.
[2024-08-16] MEDS ORDERED: CALCIUM ACETATE 667 MG TAB PO PRN (13:26)
[2024-08-16] MEDS ORDERED: BENZONATATE 100 MG CAP PO PRN (13:26)
[2024-08-16] MEDS: GABAPENTIN 300 MG CAP PO SCH (16:17)
[2024-08-16] MEDS: LEVOTHYROXINE 75 MCG TAB PO SCH (16:17)
[2024-08-16] MEDS: BENZONATATE 100 MG CAP PO PRN (18:05)
[2024-08-16] MEDS: PANTOPRAZOLE 40 MG TABLET PO SCH (18:05)
[2024-08-16] MEDS: FLUoxetine HCL 20 MG CAP PO SCH (20:35)
[2024-08-16] MEDS: ACETAMINOPHEN TAB 325 MG TAB PO PRN (20:35)
[2024-08-16] MEDS: MONTELUKAST 10 MG TAB PO SCH (20:35)
[2024-08-16] MEDS: BACLOFEN 10 MG TAB PO SCH (20:35)
[2024-08-17] MEDS: SODIUM BICARBONATE TAB 650 MG TAB PO SCH (09:44)
[2024-08-17] MEDS: BUMETANIDE 1 MG TAB PO SCH (09:45)
--- NOTE | 2024-08-17 10:47 | P.PN ---
Subjective Patient is seen in follow-up for end-stage renal disease. No problems with dialysis yesterday. Feels weak. Otherwise no active complaints. Vital signs are stable. General: No acute distress. HEENT: Head exam is unremarkable. LUNGS: No audible rhonchi or wheezes. HEART: Rate and Rhythm are regular. ABDOMEN: Nontender. EXTREMITITES: Chronic edema. Objective - Vital Signs Vital signs: Vital Signs Temp 97.8 F 08/17/24 07:38 Pulse 78 08/17/24 08:26 Resp 17 08/17/24 07:38 BP 128/82 08/17/24 07:38 Pulse Ox 96 08/17/24 08:17 FiO2 Intake & Output 08/16/24 08/17/24 08/17/24 18:59 06:59 18:59 Intake Total 500 Output Total 2500 Balance -2000 Intake: Hemodialysis 500 Output: Hemodialysis 1500 Hemodialysis Net Amount 1000 Other: Voiding Method Toilet Diaper # Voids 3 3 - Labs CBC & Chem 7: 08/15/24 18:56 08/15/24 18:56 Assessment and Plan Plan: Assessment: 1. End-stage renal disease maintained on hemodialysis on Monday schedule. Has permacath. She has a clotted AV graft. 2. Acute RSV pneumonia. 3. Chronic kidney disease mineral bone disease. On PhosLo. 4. Acute COPD exacerbation. Plan: Hemodialysis Monday.
[2024-08-17] MEDS: ERGOCALCIFEROL 1,250 MCG (50,000 IU) CAPSULE PO SCH (13:24)
--- NOTE | 2024-08-17 14:30 | P.PN ---
Subjective Progress Note Date: 08/17/24 Patient is an 79-year-old female with past medical history significant for mild intermittent asthma, end-stage renal disease on hemodialysis, polymyalgia rheumatica, hypothyroidism, cerebral aneurysm. Chief complaint is increase work of breathing over the last week. Also, endorses associated dry cough that is nonproductive. Tested positive for RSV as an outpatient. Patient does have history of mild intermittent bronchial asthma. Lifelong non-smoker. Follows in the pulmonary office with Dr. Roger. Directed to the emergency department yesterday evening. Workup in the emergency department including viral 4 Plex again positive for RSV. Chest x-ray shows chronic parenchymal changes without any focal infiltrates, pleural effusions, pneumothoraces. Right subclavian permacath. CBC: WBC count 7.4, hemoglobin 10.7, platelets 175. CMP: Sodium 135, potassium 3.6, chloride 95, serum bicarb 33, BUN 45, creatinine 2.3, glucose 113. Lactic 1.1. LFTs unremarkable. Patient currently be evaluated on the general medical floor. She is resting comfortably on 1 L/min nasal cannula. Expiratory wheezing and bronchospastic cough. No respiratory distress. States she originally tested positive for RSV at her PCPs office, Dr. Hogue, approximately 2 weeks ago. No improvement with supportive care including steroid burst taper and albuterol nebs. Continues to have shortness of breath with associated persistent dry non productive cough and wheezing. Chest discomfort, only with coughing fits. States she has Tessalon Perles at home, which helps with the cough. Fevers and chills have subsided. Tolerating oral intake including fluids and food. Previous episodes of diarrhea, which have scott bsided. Current vital signs: Temperature 97.7 F, heart rate 64 bpm, blood pressure 133/81 mmHg, nontachypneic, SpO2 recorded at 94% on 1 L/min nasal cannula. 08/17/2024, the patient remains congested and wheezy and she is having also limited shortness of breath at rest. She has an acute RSV infection and the patient was seen in consultation yesterday. The patient has exacerbation of her chronic bronchial asthma related to RSV infection. The patient is currently on 2 L of oxygen by nasal cannula. No nausea vomiting or diarrhea. No new labs are available from today. No altered mentation. Remains on bronchodilators. Remains on IV Solu-Medrol 60 mg every 6 hours. Remains on Symbicort and Tessalon perles. Objective - Vital Signs Vital signs: Vital Signs Temp 97.8 F 08/17/24 07:38 Pulse 78 08/17/24 08:26 Resp 17 08/17/24 07:38 BP 128/82 08/17/24 07:38 Pulse Ox 96 08/17/24 08:17 FiO2 Intake & Output 08/16/24 08/17/24 08/17/24 18:59 06:59 18:59 Intake Total 500 Output Total 2500 Balance -2000 Intake: Hemodialysis 500 Output: Hemodialysis 1500 Hemodialysis Net Amount 1000 Other: Voiding Method Toilet Diaper # Voids 3 3 - Exam GENERAL EXAM: Alert, 79-year-old white female, comfortable in no apparent distress. HEAD: Normocephalic and atraumatic EYES: Normal reaction of pupils, equal size. NOSE: Clear with pink turbinates. THROAT: No erythema or exudates. NECK: No masses, no JVD. CHEST: No chest wall deformity. Tunneled right chest permacath. LUNGS: Equal air entry with diffuse expiratory wheezing heard bilaterally and throughout with bronchospastic cough. On 1 L/min nasal cannula. No conversational dyspnea or accessory muscle use while at rest CVS: S1 and S2 normal with no audible murmur, regular rhythm. No extra heart sounds ABDOMEN: No hepatosplenomegaly, active bowel sounds, no guarding or rigidity. SPINE: No scoliosis or deformity SKIN: No rashes CENTRAL NERVOUS SYSTEM: No focal deficits, tone is normal in all 4 extremities. EXTREMITIES: There is no peripheral edema, clubbing, or cyanosis. Peripheral pulses are intact. Left arm fistula, no thrill - Labs CBC & Chem 7: 08/15/24 18:56 08/15/24 18:56 Assessment and Plan Assessment: Exacerbation of mild intermittent bronchial asthma, secondary to acute RSV bronchitis Acute hypoxemic respiratory failure, currently on 1 L/min nasal cannula, secondary to above End-stage renal disease, maintained on hemodialysis with a Monday, Monday, Monday schedule Anemia of chronic disease History of nephrolithiasis and frequent urinary tract infections History of hypothyroidism history of polymyalgia rheumatica Lifelong non-smoker Plan: Remains on oxygen at 2 L Patient continues to be symptomatic Start combination of DuoNebs Continue Symbicort Continue IV Solu-Medrol Tylenol as needed for fever, Tessalon Perles as antitussive Hemodialysis per nephrology We will continue to follow
--- NOTE | 2024-08-17 15:30 | P.HPIM ---
History of Present Illness H&P Date: 08/16/24 Chief Complaint: Shortness of breath 79-year-old female present to the emergency department with concerns with difficulty breathing. Symptoms have been occurring over the past 7 to 10 days. Patient does have cough, dry nonproductive. Patient was diagnosed with RSV as an outpatient. Patient does have history of asthma. Patient has been on 2 different antibiotics without improvement of symptoms. Patient called Dr. Roger and was advised to come to the emergency department. States she originally tested positive for RSV at her PCPs office, Dr. Hogue, approximately 2 weeks ago. Chest x-ray shows chronic parenchymal changes without any focal infiltrates, pleural effusions, pneumothoraces. Right subclavian permacath. CBC: WBC count 7.4, hemoglobin 10.7, platelets 175. CMP: Sodium 135, potassium 3.6, chloride 95, serum bicarb 33, BUN 45, creatinine 2.3, glucose 113. Lactic 1.1. LFTs unremarkable. Review of Systems REVIEW OF SYSTEMS: CONSTITUTIONAL: No fever, no malaise, no fatigue. HEENT: No recent visual problems or hearing problems. Denied any sore throat. CARDIOVASCULAR: No chest pain, orthopnea, PND, no palpitations, no syncope. PULMONARY: No shortness of breath, no cough, no hemoptysis. GASTROINTESTINAL: No diarrhea, no nausea, no vomiting, no abdominal pain. NEUROLOGICAL: No headaches, no weakness, no numbness. HEMATOLOGICAL: Denies any bleeding or petechiae. GENITOURINARY: Denies any burning micturition, frequency, or urgency. MUSCULOSKELETAL/RHEUMATOLOGICAL: Denies any joint pain, swelling, or any muscle pain. ENDOCRINE: Denies any polyuria or polydipsia. The rest of the 14-point review of systems is negative. Past Medical History Past Medical History: Asthma, Cancer, COPD, Dialysis, Osteoarthritis (OA), Renal Disease, Thyroid Disorder Additional Past Medical History / Comment(s): ESRD- hemodialysis MOWEFR 3 1/2 hours, dialysis cath rt chest, kidney stones and UTI, hx lymphedema, hx pulmonary fibrosis, hx graves, hx rt foot torn ligaments, hx osteoporosis, hypotension; vitamin D deficiency, hypocalcemia, SKIN CANCER REMOVED FROM BRIDGE OF NOSE., PMR - polymyalgia rhematalia; currently bruised from neck to right breast History of Any Multi-Drug Resistant Organisms: CRE Date of last positivie culture/infection: 10/16/18 MDRO-CRE PER [facility] NOT [facility] MDRO Source:: Urine Past Surgical History: Bariatric Surgery, Orthopedic Surgery Additional Past Surgical History / Comment(s): hx bariatric surgery-Kye En Y,lung biopsy,radioactive iodine-tx thyroid,rectal and bladder suspensions,vaginal surgery as a child,partha carpel tunnel,rt knee meniscus repair,D&C x3, left arm fistula 02/08/19(not working), left broken wrist, broken right wrist Past Anesthesia/Blood Transfusion Reactions: Previous Problems w/ Anesthesia Additional Past Anesthesia/Blood Transfusion Reaction / Comment(s): decrease bp with anesthesia, no problems with prior blood transfusion Past Psychological History: No Psychological Hx Reported Smoking Status: Never smoker Past Alcohol Use History: None Reported Past Drug Use History: None Reported - Past Family History Father Family Medical History: Pulmonary Embolus Additional Family Medical History / Comment(s): . Mother Family Medical History: Cancer Additional Family Medical History / Comment(s): colon ca, bone ca Sister(s) Family Medical History: Cancer Additional Family Medical History / Comment(s): kidney ca Daughter(s) Additional Family Medical History / Comment(s): lymphedema in legs Brother(s) Family Medical History: Cancer Additional Family Medical History / Comment(s): skin cancer Medications and Allergies Home Medications Medication Instructions Recorded Confirmed Type FLUoxetine HCL [PROzac] 20 mg PO BID 08/23/18 08/16/24 History Montelukast [Singulair] 10 mg PO HS 08/23/18 08/16/24 History Omeprazole 40 mg PO AC-BID 11/19/18 08/16/24 History Sodium Bicarbonate Tab 1,950 mg PO W/SUPPER 07/22/19 08/16/24 History Loratadine 10 mg PO DAILY 12/06/19 08/16/24 History Methenamine Hippurate 1 gm PO BID 01/25/21 08/16/24 History Mirabegron [Myrbetriq] 25 mg PO DAILY 01/25/21 08/16/24 History Albuterol Inhaler [Ventolin Hfa 2 puff INHALATION RT-Q6H PRN 02/07/23 08/16/24 History Inhaler] calcitrioL 2 mcg PO MOWEFR 02/07/23 08/16/24 History Bumetanide [BUMEX] 1 mg PO DAILY 10/17/23 08/16/24 History Ergocalciferol [Vitamin D2 (1250 1,250 mcg PO SUTUTHSA 10/17/23 08/16/24 History Mcg = 12135 Iu)] Gabapentin [Neurontin] 300 mg PO BID 10/17/23 08/16/24 History Sodium Bicarbonate Tab 1,300 mg PO BID@0800,1200 04/15/24 08/16/24 History Levothyroxine Sodium [Synthroid] 150 mcg PO DAILY 04/28/24 08/16/24 History predniSONE 5 mg PO QID 04/28/24 08/16/24 History Acetaminophen Tab [Tylenol] 650 mg PO Q6HR PRN tab 04/30/24 08/16/24 Rx Baclofen 5 mg PO BID 08/16/24 08/16/24 History Benzonatate [Tessalon Perles] 100 mg PO Q4H PRN 08/16/24 08/16/24 History Calcium Acetate [Phoslo] 1,334 mg PO TID-W/MEALS 08/16/24 08/16/24 History Calcium Acetate [Phoslo] 667 mg PO DIRECTED PRN 08/16/24 08/16/24 History Levofloxacin [Levaquin] 500 mg PO DAILY 08/16/24 08/16/24 History Magnesium Chloride W/ D 1 tab PO DAILY 08/16/24 08/16/24 History Potassium Chloride [Klor-Con M20] 20 meq PO DAILY 08/16/24 08/16/24 History metroNIDAZOLE [Flagyl] 250 mg PO DAILY 08/16/24 08/16/24 History Allergies Allergy/AdvReac Type Severity Reaction Status Date / Time adhesive tape Allergy Rash/Hives Verified 08/16/24 10:17 Sulfa (Sulfonamide Allergy Itching Verified 08/16/24 10:17 Antibiotics) codeine AdvReac Nausea Verified 08/16/24 10:17 tetracycline AdvReac Nausea & Verified 08/16/24 10:17 Vomiting Physical Exam Vitals: Vital Signs Temp Pulse Pulse Resp BP BP Pulse Ox 08/16/24 11:55 76 08/16/24 11:45 72 08/16/24 08:21 98.0 F 64 20 128/78 94 L 08/16/24 02:38 97.7 F 64 16 133/81 94 L 08/16/24 00:02 98 F 63 18 143/70 93 L 08/15/24 22:29 98 F 72 18 145/78 93 L 08/15/24 17:12 97.9 F 84 18 131/77 93 L Intake and Output 08/15/24 08/16/24 08/16/24 22:59 06:59 14:59 Intake Total 1650 Balance 1650 Intake: Oral 1650 Other: # Voids 3 Weight 57.606 kg 57.606 kg General appearance: alert, in no apparent distress Head exam: Present: normocephalic Eye exam: Present: normal appearance Neck exam: Present: normal inspection Respiratory exam: Present: wheezes, rhonchi Cardiovascular Exam: Present: regular rate, normal rhythm GI/Abdominal exam: Present: soft. Absent: tenderness Extremities exam: Present: normal inspection. Absent: pedal edema, calf tenderness Neurological exam: Present: alert Psychiatric exam: Present: normal affect, normal mood Skin exam: Present: normal color Results CBC & Chem 7: 08/15/24 18:56 08/15/24 18:56 Labs: Abnormal Lab Results - Last 24 Hours (Table) 08/15/24 08/15/24 08/15/24 Range/Units 18:56 18:56 18:56 RBC 3.28 L (3.80-5.40) m/uL Hgb 10.7 L (11.4-16.0) gm/dL MCV 106.8 H (80.0-100.0) fL MCHC 30.5 L (31.0-37.0) g/dL Lymphocytes # 0.7 L (1.0-4.8) k/uL APTT 20.8 L (22.0-30.0) sec Sodium 135 L (137-145) mmol/L Chloride 95 L (98-107) mmol/L Carbon Dioxide 33 H (22-30) mmol/L BUN 45 H (7-17) mg/dL Creatinine 2.30 H (0.52-1.04) mg/dL Glucose 113 H (74-99) mg/dL AST 45 H (14-36) U/L ALT 43 H (4-34) U/L RSV (PCR) (Not Detectd) 08/15/24 Range/Units 18:56 RBC (3.80-5.40) m/uL Hgb (11.4-16.0) gm/dL MCV (80.0-100.0) fL MCHC (31.0-37.0) g/dL Lymphocytes # (1.0-4.8) k/uL APTT (22.0-30.0) sec Sodium (137-145) mmol/L Chloride (98-107) mmol/L Carbon Dioxide (22-30) mmol/L BUN (7-17) mg/dL Creatinine (0.52-1.04) mg/dL Glucose (74-99) mg/dL AST (14-36) U/L ALT (4-34) U/L RSV (PCR) Detected A (Not Detectd) Thrombosis Risk Factor Assmnt - Choose All That Apply Any of the Below Risk Factors Present?: Yes Each Factor Represents 1 point: Abnormal pulmonary function (COPD) Other Risk Factors: Yes Each Risk Factor Represents 3 Points: Age 75 years or older Other congenital or acquired thrombophilia - If yes, enter type in comment: No Thrombosis Risk Factor Assessment Total Risk Factor Score: 4 Thrombosis Risk Factor Assessment Level: Moderate Risk Assessment and Plan Assessment: 1. Acute exacerbation COPD/asthma; secondary to acute RSV bronchitis -Chest x-ray is negative for any acute pulmonary process -Patient has been placed on IV Solu-Medrol; DuoNeb nebulizer treatments 4 times daily and as needed; Singulair 10 mg nightly -Patient has been evaluated by pulmonary and is recommended initiating Symbicort inhaler -Patient has been placed on azithromycin 2. Acute hypoxic respiratory failure; related to acute exacerbation asthma/COPD related to acute RSV bronchitis -We will continue with O2 per nasal cannula and titrate/wean as needed 3. End-stage renal disease/HD; patient has hemodialysis schedule of Monday, Monday and Monday -PhosLo 667 mg 4 times daily as needed -Nephrology is consulted 4. Nephrolithiasis with frequent UTIs; outpatient urology follow-up 5. Hypothyroidism; levothyroxine 150 mcg daily 6. Anemia of chronic disease; hemoglobin at baseline at 10.7 7. History of pulmonary nodule; follow-up with pulmonary as outpatient DVT PPx; SCDs/subcu heparin CODE STATUS; full code
--- NOTE | 2024-08-17 15:37 | P.PN ---
Subjective Progress Note Date: 08/17/24 79-year-old female present to the emergency department with concerns with difficulty breathing. Symptoms have been occurring over the past 7 to 10 days. Patient does have cough, dry nonproductive. Patient was diagnosed with RSV as an outpatient. Patient does have history of asthma. Patient has been on 2 different antibiotics without improvement of symptoms. Patient called Dr. Roger and was advised to come to the emergency department. States she originally tested positive for RSV at her PCPs office, Dr. Hogue, approximately 2 weeks ago. Chest x-ray shows chronic parenchymal changes without any focal infiltrates, pleural effusions, pneumothoraces. Right subclavian permacath. CBC: WBC count 7.4, hemoglobin 10.7, platelets 175. CMP: Sodium 135, potassium 3.6, chloride 95, serum bicarb 33, BUN 45, creatinine 2.3, glucose 113. Lactic 1.1. LFTs unremarkable. Objective - Vital Signs Vital signs: Vital Signs Temp 97.8 F 08/17/24 07:38 Pulse 78 08/17/24 08:26 Resp 17 08/17/24 07:38 BP 128/82 08/17/24 07:38 Pulse Ox 96 08/17/24 08:17 FiO2 Intake & Output 08/16/24 08/17/24 08/17/24 18:59 06:59 18:59 Intake Total 500 Output Total 2500 Balance -2000 Intake: Hemodialysis 500 Output: Hemodialysis 1500 Hemodialysis Net Amount 1000 Other: Voiding Method Toilet Diaper # Voids 3 3 - Exam General appearance: alert, in no apparent distress Head exam: Present: normocephalic Eye exam: Present: normal appearance Neck exam: Present: normal inspection Respiratory exam: Present: wheezes, rhonchi Cardiovascular Exam: Present: regular rate, normal rhythm GI/Abdominal exam: Present: soft. Absent: tenderness Extremities exam: Present: normal inspection. Absent: pedal edema, calf tenderness Neurological exam: Present: alert Psychiatric exam: Present: normal affect, normal mood Skin exam: Present: normal color - Labs CBC & Chem 7: 08/15/24 18:56 08/15/24 18:56 Assessment and Plan Assessment: 1. Acute exacerbation COPD/asthma; secondary to acute RSV bronchitis -Chest x-ray is negative for any acute pulmonary process -Patient has been placed on IV Solu-Medrol; DuoNeb nebulizer treatments 4 times daily and as needed; Singulair 10 mg nightly -Patient has been evaluated by pulmonary and is recommended initiating Symbicort inhaler -Patient has been placed on azithromycin 2. Acute hypoxic respiratory failure; related to acute exacerbation asthma/COPD related to acute RSV bronchitis -We will continue with O2 per nasal cannula and titrate/wean as needed 3. End-stage renal disease/HD; patient has hemodialysis schedule of Monday, Monday and Monday -PhosLo 667 mg 4 times daily as needed -Nephrology is consulted 4. Nephrolithiasis with frequent UTIs; outpatient urology follow-up 5. Hypothyroidism; levothyroxine 150 mcg daily 6. Anemia of chronic disease; hemoglobin at baseline at 10.7 7. History of pulmonary nodule; follow-up with pulmonary as outpatient DVT PPx; SCDs/subcu heparin CODE STATUS; full code
[2024-08-17] MEDS: GABAPENTIN 300 MG CAP PO SCH (20:12)
[2024-08-18] MEDS: LEVOTHYROXINE 75 MCG TAB PO SCH (06:55)
[2024-08-18 09:21] LABS: BUN/Creat Ratio 18.31 Ratio (12.00-20.00); Blood Urea Nitrogen 53.1 mg/dL (9.0-27.0); Calcium 8.3 mg/dL (8.7-10.3); Carbon Dioxide 24.4 mmol/L (21.6-31.8); Chloride 96 mmol/L (96-109); Glucose 146 mg/dL (70-110); Potassium 3.4 mmol/L (3.5-5.5); Sodium 136 mmol/L (135-145)
[2024-08-18 09:23] LABS: Basophils # (A) 0.02 X 10*3/uL (0.00-0.10); Basophils % (A) 0.1 %; Eosinophils # (A) 0 X 10*3/uL (0.04-0.35); Eosinophils % (A) 0 %; HCT 27.6 % (37.2-46.3); Lymphocytes # (A) 0.83 X 10*3/uL (0.90-5.00); Lymphocytes % (A) 6.1 %; MCH 33.6 pg (27.0-32.0); MCHC 32.6 g/dL (32.0-37.0); Mean Platelet Volume 10.2 FL (9.5-12.2); Monocytes # (A) 0.34 X 10*3/uL (0.20-1.00); Monocytes % (A) 2.5 %; NRBC Per 100 WBC 0 X 10*3/uL (0.00-0.01); Neutrophils # (A) 12.23 X 10*3/uL (1.80-7.70); Neutrophils % (A) 89.5 %; Platelet Count 131 X 10*3/uL (140-440); RBC 2.68 X 10*6/uL (4.10-5.20); RDW 14.3 % (11.5-14.5); WBC 13.67 X 10*3/uL (4.50-10.00)
--- NOTE | 2024-08-18 10:29 | P.PN ---
Subjective Patient is seen in follow-up for end-stage renal disease. Resting in bed. Feels weak. Cough gradually improving. Otherwise no active complaints. Vital signs are stable. General: No acute distress. HEENT: Head exam is unremarkable. LUNGS: No audible rhonchi or wheezes. HEART: Rate and Rhythm are regular. ABDOMEN: Nontender. EXTREMITITES: Chronic edema. Objective - Vital Signs Vital signs: Vital Signs Temp 97.4 F L 08/18/24 07:17 Pulse 71 08/18/24 08:14 Resp 16 08/18/24 07:17 BP 129/78 08/18/24 07:17 Pulse Ox 95 08/18/24 08:14 FiO2 Intake & Output 08/17/24 08/18/24 08/18/24 18:59 06:59 18:59 Output Total 4 Balance -4 Output: Urine 4 Other: Voiding Method Toilet Diaper # Voids 3 # Bowel Movements 1 - Labs CBC & Chem 7: 08/18/24 06:00 08/18/24 06:00 Labs: Abnormal Lab Results - Last 24 Hours (Table) 08/18/24 08/18/24 Range/Units 06:00 06:00 WBC 13.67 H (4.50-10.00) X 10*3/uL RBC 2.68 L (4.10-5.20) X 10*6/uL Hgb 9.0 L (12.0-15.0) g/dL Hct 27.6 L (37.2-46.3) % MCV 103.0 H (80.0-97.0) FL MCH 33.6 H (27.0-32.0) pg Plt Count 131 L (140-440) X 10*3/uL Immature Gran # 0.25 H (0.00-0.04) X 10*3/uL Neutrophils # 12.23 H (1.80-7.70) X 10*3/uL Lymphocytes # 0.83 L (0.90-5.00) X 10*3/uL Eosinophils # 0 L (0.04-0.35) X 10*3/uL Potassium 3.4 L (3.5-5.5) mmol/L Anion Gap 15.60 H (4.00-12.00) mmol/L BUN 53.1 H (9.0-27.0) mg/dL Creatinine 2.9 H (0.6-1.5) mg/dL Est GFR (CKD-EPI) 16 L (>=60) Glucose 146 H (70-110) mg/dL Calcium 8.3 L (8.7-10.3) mg/dL Microbiology - Last 24 Hours (Table) 08/16/24 05:09 Blood Culture - Preliminary Blood Assessment and Plan Plan: Assessment: 1. End-stage renal disease maintained on hemodialysis on Monday schedule. Has permacath. She has a clotted AV graft. 2. Acute RSV pneumonia. 3. Chronic kidney disease mineral bone disease. On PhosLo. 4. Acute COPD exacerbation. 5. Hypokalemia from diuresis. 6. Anemia of chronic kidney disease. Plan: Hemodialysis Monday. Replace potassium. Decrease dose of oral bicarb. Add Aranesp.
[2024-08-18] MEDS: POTASSIUM CHLORIDE ER 20 MEQ TAB.ER PO STA (11:09)
[2024-08-18] MEDS: DARBEPOETIN ALFA 40 MCG/0.4 ML SYRINGE SQ SCH (11:10)
[2024-08-18] MEDS: SODIUM BICARBONATE TAB 650 MG TAB PO SCH (13:19)
--- NOTE | 2024-08-18 14:07 | P.PN ---
Subjective Progress Note Date: 08/18/24 Patient is an 79-year-old female with past medical history significant for mild intermittent asthma, end-stage renal disease on hemodialysis, polymyalgia rheumatica, hypothyroidism, cerebral aneurysm. Chief complaint is increase work of breathing over the last week. Also, endorses associated dry cough that is nonproductive. Tested positive for RSV as an outpatient. Patient does have history of mild intermittent bronchial asthma. Lifelong non-smoker. Follows in the pulmonary office with Dr. Roger. Directed to the emergency department yesterday evening. Workup in the emergency department including viral 4 Plex again positive for RSV. Chest x-ray shows chronic parenchymal changes without any focal infiltrates, pleural effusions, pneumothoraces. Right subclavian permacath. CBC: WBC count 7.4, hemoglobin 10.7, platelets 175. CMP: Sodium 135, potassium 3.6, chloride 95, serum bicarb 33, BUN 45, creatinine 2.3, glucose 113. Lactic 1.1. LFTs unremarkable. Patient currently be evaluated on the general medical floor. She is resting comfortably on 1 L/min nasal cannula. Expiratory wheezing and bronchospastic cough. No respiratory distress. States she originally tested positive for RSV at her PCPs office, Dr. Hogue, approximately 2 weeks ago. No improvement with supportive care including steroid burst taper and albuterol nebs. Continues to have shortness of breath with associated persistent dry non productive cough and wheezing. Chest discomfort, only with coughing fits. States she has Tessalon Perles at home, which helps with the cough. Fevers and chills have subsided. Tolerating oral intake including fluids and food. Previous episodes of diarrhea, which have scott bsided. Current vital signs: Temperature 97.7 F, heart rate 64 bpm, blood pressure 133/81 mmHg, nontachypneic, SpO2 recorded at 94% on 1 L/min nasal cannula. 08/17/2024, the patient remains congested and wheezy and she is having also limited shortness of breath at rest. She has an acute RSV infection and the patient was seen in consultation yesterday. The patient has exacerbation of her chronic bronchial asthma related to RSV infection. The patient is currently on 2 L of oxygen by nasal cannula. No nausea vomiting or diarrhea. No new labs are available from today. No altered mentation. Remains on bronchodilators. Remains on IV Solu-Medrol 60 mg every 6 hours. Remains on Symbicort and Tessalon perles. On 08/18/2024, the patient is being seen for a follow-up. The patient is still congested bronchospastic and wheezy compared to yesterday. Resting comfortably in bed. She remains on 2 L of oxygen by nasal cannula with a pulse ox of 95%. The patient has end-stage renal disease on hemodialysis. Sodium is at 136 and potassium is at 3.4. The white cell count 13.6 with a hemoglobin of 9. The patient has an acute RSV infection. The patient remains on Symbicort and DuoNeb nebulizers [id number] and the patient is on IV Solu-Medrol. She is on Bumex 1 mg p.o. daily. No other nephrotoxic agents being administered at this point. Objective - Vital Signs Vital signs: Vital Signs Temp 97.4 F L 08/18/24 07:17 Pulse 71 08/18/24 08:14 Resp 16 08/18/24 07:17 BP 129/78 08/18/24 07:17 Pulse Ox 95 08/18/24 08:14 FiO2 Intake & Output 08/17/24 08/18/24 08/18/24 18:59 06:59 18:59 Output Total 4 Balance -4 Output: Urine 4 Other: Voiding Method Toilet Diaper # Voids 3 # Bowel Movements 1 - Exam GENERAL EXAM: Alert, 79-year-old white female, comfortable in no apparent distress. HEAD: Normocephalic and atraumatic EYES: Normal reaction of pupils, equal size. NOSE: Clear with pink turbinates. THROAT: No erythema or exudates. NECK: No masses, no JVD. CHEST: No chest wall deformity. Tunneled right chest permacath. LUNGS: Equal air entry with diffuse expiratory wheezing heard bilaterally and throughout with bronchospastic cough. On 1 L/min nasal cannula. No conversational dyspnea or accessory muscle use while at rest CVS: S1 and S2 normal with no audible murmur, regular rhythm. No extra heart sounds ABDOMEN: No hepatosplenomegaly, active bowel sounds, no guarding or rigidity. SPINE: No scoliosis or deformity SKIN: No rashes CENTRAL NERVOUS SYSTEM: No focal deficits, tone is normal in all 4 extremities. EXTREMITIES: There is no peripheral edema, clubbing, or cyanosis. Peripheral pulses are intact. Left arm fistula, no thrill - Labs CBC & Chem 7: 08/18/24 06:00 08/18/24 06:00 Labs: Abnormal Lab Results - Last 24 Hours (Table) 08/18/24 08/18/24 Range/Units 06:00 06:00 WBC 13.67 H (4.50-10.00) X 10*3/uL RBC 2.68 L (4.10-5.20) X 10*6/uL Hgb 9.0 L (12.0-15.0) g/dL Hct 27.6 L (37.2-46.3) % MCV 103.0 H (80.0-97.0) FL MCH 33.6 H (27.0-32.0) pg Plt Count 131 L (140-440) X 10*3/uL Immature Gran # 0.25 H (0.00-0.04) X 10*3/uL Neutrophils # 12.23 H (1.80-7.70) X 10*3/uL Lymphocytes # 0.83 L (0.90-5.00) X 10*3/uL Eosinophils # 0 L (0.04-0.35) X 10*3/uL Potassium 3.4 L (3.5-5.5) mmol/L Anion Gap 15.60 H (4.00-12.00) mmol/L BUN 53.1 H (9.0-27.0) mg/dL Creatinine 2.9 H (0.6-1.5) mg/dL Est GFR (CKD-EPI) 16 L (>=60) Glucose 146 H (70-110) mg/dL Calcium 8.3 L (8.7-10.3) mg/dL Microbiology - Last 24 Hours (Table) 08/16/24 05:09 Blood Culture - Preliminary Blood Assessment and Plan Assessment: Exacerbation of mild intermittent bronchial asthma, secondary to acute RSV bronchitis Acute hypoxemic respiratory failure, currently on 2 L/min nasal cannula, secondary to above End-stage renal disease, maintained on hemodialysis with a Monday, Monday, Monday schedule Anemia of chronic disease History of nephrolithiasis and frequent urinary tract infections History of hypothyroidism history of polymyalgia rheumatica Lifelong non-smoker Plan: Slightly improved compared to yesterday and will continue same management for now. Remains on oxygen at 2 L Patient continues to be symptomatic Start combination of DuoNebs Continue Symbicort Continue IV Solu-Medrol Tylenol as needed for fever, Tessalon Perles as antitussive Hemodialysis per nephrology We will continue to follow Time with Patient: Greater than 30
--- NOTE | 2024-08-18 18:35 | P.PN ---
Subjective Progress Note Date: 08/18/24 79-year-old female present to the emergency department with concerns with difficulty breathing. Symptoms have been occurring over the past 7 to 10 days. Patient does have cough, dry nonproductive. Patient was diagnosed with RSV as an outpatient. Patient does have history of asthma. Patient has been on 2 different antibiotics without improvement of symptoms. Patient called Dr. Roger and was advised to come to the emergency department. States she originally tested positive for RSV at her PCPs office, Dr. Hogue, approximately 2 weeks ago. Chest x-ray shows chronic parenchymal changes without any focal infiltrates, pleural effusions, pneumothoraces. Right subclavian permacath. CBC: WBC count 7.4, hemoglobin 10.7, platelets 175. CMP: Sodium 135, potassium 3.6, chloride 95, serum bicarb 33, BUN 45, creatinine 2.3, glucose 113. Lactic 1.1. LFTs unremarkable. 08/18/2024 - the patient is seen and evaluated in room 4 follow-up. The patient is still congested bronchospastic and wheezy compared to yesterday. - She remains on 2 L of oxygen by nasal cannula with a pulse ox of 95%. The patient has end-stage renal disease on hemodialysis. Blood work reveals sodium is at 136 and potassium is at 3.4. The white cell count 13.6 with a hemoglobin of 9. - The patient has an acute RSV infection. The patient remains on Symbicort and DuoNeb nebulizers [id number] and the patient is on IV Solu-Medrol. She is on Bumex 1 mg p.o. daily. No other nephrotoxic agents being administered at this point. -Pulmonary on board and recommending to continue with DuoNeb nebulizer treatments, IV Solu-Medrol and Symbicort; symptomatic treatment with antitussives and Tylenol Objective - Vital Signs Vital signs: Vital Signs Temp 97.4 F L 08/18/24 07:17 Pulse 71 08/18/24 08:14 Resp 16 08/18/24 07:17 BP 129/78 08/18/24 07:17 Pulse Ox 95 08/18/24 08:14 FiO2 Intake & Output 08/17/24 08/18/24 08/18/24 18:59 06:59 18:59 Output Total 4 Balance -4 Output: Urine 4 Other: Voiding Method Toilet Diaper # Voids 3 # Bowel Movements 1 - Exam General appearance: alert, in no apparent distress Head exam: Present: normocephalic Eye exam: Present: normal appearance Neck exam: Present: normal inspection Respiratory exam: Present: wheezes, rhonchi Cardiovascular Exam: Present: regular rate, normal rhythm GI/Abdominal exam: Present: soft. Absent: tenderness Extremities exam: Present: normal inspection. Absent: pedal edema, calf tenderness Neurological exam: Present: alert Psychiatric exam: Present: normal affect, normal mood Skin exam: Present: normal color - Labs CBC & Chem 7: 08/18/24 06:00 08/18/24 06:00 Labs: Abnormal Lab Results - Last 24 Hours (Table) 08/18/24 08/18/24 Range/Units 06:00 06:00 WBC 13.67 H (4.50-10.00) X 10*3/uL RBC 2.68 L (4.10-5.20) X 10*6/uL Hgb 9.0 L (12.0-15.0) g/dL Hct 27.6 L (37.2-46.3) % MCV 103.0 H (80.0-97.0) FL MCH 33.6 H (27.0-32.0) pg Plt Count 131 L (140-440) X 10*3/uL Immature Gran # 0.25 H (0.00-0.04) X 10*3/uL Neutrophils # 12.23 H (1.80-7.70) X 10*3/uL Lymphocytes # 0.83 L (0.90-5.00) X 10*3/uL Eosinophils # 0 L (0.04-0.35) X 10*3/uL Potassium 3.4 L (3.5-5.5) mmol/L Anion Gap 15.60 H (4.00-12.00) mmol/L BUN 53.1 H (9.0-27.0) mg/dL Creatinine 2.9 H (0.6-1.5) mg/dL Est GFR (CKD-EPI) 16 L (>=60) Glucose 146 H (70-110) mg/dL Calcium 8.3 L (8.7-10.3) mg/dL Microbiology - Last 24 Hours (Table) 08/16/24 05:09 Blood Culture - Preliminary Blood Assessment and Plan Assessment: 1. Acute exacerbation COPD/asthma; secondary to acute RSV bronchitis -Chest x-ray is negative for any acute pulmonary process -Patient has been placed on IV Solu-Medrol; DuoNeb nebulizer treatments 4 times daily and as needed; Singulair 10 mg nightly -Patient has been evaluated by pulmonary and is recommended initiating Symbicort inhaler -Patient has been placed on azithromycin 2. Acute hypoxic respiratory failure; related to acute exacerbation asthma/COPD related to acute RSV bronchitis -We will continue with O2 per nasal cannula and titrate/wean as needed 3. End-stage renal disease/HD; patient has hemodialysis schedule of Monday, Monday and Monday -PhosLo 667 mg 4 times daily as needed -Nephrology is consulted 4. Nephrolithiasis with frequent UTIs; outpatient urology follow-up 5. Hypothyroidism; levothyroxine 150 mcg daily 6. Anemia of chronic disease; hemoglobin at baseline at 10.7 7. History of pulmonary nodule; follow-up with pulmonary as outpatient DVT PPx; SCDs/subcu heparin CODE STATUS; full code
[2024-08-18] MEDS ORDERED: GABAPENTIN 300 MG CAP PO SCH (21:00)
[2024-08-19 09:29] LABS: BUN/Creat Ratio 20.67 Ratio (12.00-20.00); Blood Urea Nitrogen 68.2 mg/dL (9.0-27.0); Carbon Dioxide 21.2 mmol/L (21.6-31.8); Chloride 98 mmol/L (96-109); Glucose 161 mg/dL (70-110); Potassium 3.2 mmol/L (3.5-5.5); Sodium 136 mmol/L (135-145)
--- NOTE | 2024-08-19 10:04 | P.PN ---
Subjective 79-year-old female present to the emergency department with concerns with difficulty breathing. Symptoms have been occurring over the past 7 to 10 days. Patient does have cough, dry nonproductive. Patient was diagnosed with RSV as an outpatient. Patient does have history of asthma. Patient has been on 2 different antibiotics without improvement of symptoms. Patient called Dr. Roger and was advised to come to the emergency department. States she originally tested positive for RSV at her PCPs office, Dr. Hogue, approximately 2 weeks ago. Chest x-ray shows chronic parenchymal changes without any focal infiltrates, pleural effusions, pneumothoraces. Right subclavian permacath. CBC: WBC count 7.4, hemoglobin 10.7, platelets 175. CMP: Sodium 135, potassium 3.6, chloride 95, serum bicarb 33, BUN 45, creatinine 2.3, glucose 113. Lactic 1.1. LFTs unremarkable. 08/18/2024 - the patient is seen and evaluated in room 4 follow-up. The patient is still congested bronchospastic and wheezy compared to yesterday. - She remains on 2 L of oxygen by nasal cannula with a pulse ox of 95%. The patient has end-stage renal disease on hemodialysis. Blood work reveals sodium is at 136 and potassium is at 3.4. The white cell count 13.6 with a hemoglobin of 9. - The patient has an acute RSV infection. The patient remains on Symbicort and DuoNeb nebulizers [id number] and the patient is on IV Solu-Medrol. She is on Bumex 1 mg p.o. daily. No other nephrotoxic agents being administered at this point. -Pulmonary on board and recommending to continue with DuoNeb nebulizer treatments, IV Solu-Medrol and Symbicort; symptomatic treatment with antitussives and Tylenol 08/19 Patient still has extensive wheezing Patient is on 2.5 L oxygen via nasal cannula Low potassium has been replaced. Creatinine increased to 3.3. Patient is a known case of End-stage renal disease on hemodialysis She is positive for RSV virus been treated symptomatically on steroids Patient is requesting Ultram for pain she states she take it at home Objective - Vital Signs Vital signs: Vital Signs Temp 97.1 F L 08/19/24 07:00 Pulse 80 08/19/24 09:24 Resp 20 08/19/24 07:00 BP 133/80 03/17/25 07:00 Pulse Ox 97 08/19/24 07:00 FiO2 Intake & Output 08/18/24 08/19/24 08/19/24 18:59 06:59 18:59 Other: # Voids 4 3 # Bowel Movements 0 - Exam GENERAL: The patient is alert and oriented x3, not in any acute distress. Well developed, well nourished. HEENT: Pupils are round and equally reacting to light. EOMI. No scleral icterus. No conjunctival pallor. Normocephalic, atraumatic. No pharyngeal erythema. No thyromegaly. CARDIOVASCULAR: S1 and S2 present. No murmurs, rubs, or gallops. -PULMONARY: Chest is clear to auscultation, bilateral extensive wheezing , no crackles. ABDOMEN: Soft, nontender, nondistended, normoactive bowel sounds. No palpable organomegaly. MUSCULOSKELETAL: No joint swelling or deformity. EXTREMITIES: No cyanosis, clubbing, or pedal edema. NEUROLOGICAL: Gross neurological examination did not reveal any focal deficits. SKIN: No rashes. no petechiae. - Labs CBC & Chem 7: 08/18/24 06:00 08/19/24 04:08 Labs: Abnormal Lab Results - Last 24 Hours (Table) 08/19/24 Range/Units 04:08 Potassium 3.2 L (3.5-5.5) mmol/L Carbon Dioxide 21.2 L (21.6-31.8) mmol/L Anion Gap 16.80 H (4.00-12.00) mmol/L BUN 68.2 H (9.0-27.0) mg/dL Creatinine 3.3 H (0.6-1.5) mg/dL Est GFR (CKD-EPI) 14 L (>=60) BUN/Creatinine Ratio 20.67 H (12.00-20.00) Ratio Glucose 161 H (70-110) mg/dL Calcium 8.0 L (8.7-10.3) mg/dL Microbiology - Last 24 Hours (Table) 08/16/24 05:09 Blood Culture - Preliminary Blood Assessment and Plan Assessment: 1. Acute exacerbation COPD/asthma; secondary to acute RSV bronchitis -Chest x-ray is negative for any acute pulmonary process -Patient has been placed on IV Solu-Medrol; DuoNeb nebulizer treatments 4 times daily and as needed; Singulair 10 mg nightly -Patient has been evaluated by pulmonary and is recommended initiating Symbicort inhaler -Patient has been placed on azithromycin 2. Acute hypoxic respiratory failure; related to acute exacerbation asthma/COPD related to acute RSV bronchitis -We will continue with O2 per nasal cannula and titrate/wean as needed 3. End-stage renal disease/HD; patient has hemodialysis schedule of Monday, Monday and Monday -PhosLo 667 mg 4 times daily as needed -Nephrology is consulted 4. Nephrolithiasis with frequent UTIs; outpatient urology follow-up 5. Hypothyroidism; levothyroxine 150 mcg daily 6. Anemia of chronic disease; hemoglobin at baseline at 10.7 7. History of pulmonary nodule; follow-up with pulmonary as outpatient GI prophylaxis: Protonix DVT PPx; SCDs/subcu heparin CODE STATUS; full code
[2024-08-19] MEDS: traMADol 50 MG TAB PO PRN (10:28)
[2024-08-19] MEDS: HEPARIN SODIUM,PORCINE 5,000 UNIT/ML 1 ML VIAL SQ SCH (10:31)
--- NOTE | 2024-08-19 15:11 | P.PN ---
Subjective Progress Note Date: 08/19/24 Patient is an 79-year-old female with past medical history significant for mild intermittent asthma, end-stage renal disease on hemodialysis, polymyalgia rheumatica, hypothyroidism, cerebral aneurysm. Chief complaint is increase work of breathing over the last week. Also, endorses associated dry cough that is nonproductive. Tested positive for RSV as an outpatient. Patient does have history of mild intermittent bronchial asthma. Lifelong non-smoker. Follows in the pulmonary office with Dr. Roger. Directed to the emergency department yesterday evening. Workup in the emergency department including viral 4 Plex again positive for RSV. Chest x-ray shows chronic parenchymal changes without any focal infiltrates, pleural effusions, pneumothoraces. Right subclavian permacath. CBC: WBC count 7.4, hemoglobin 10.7, platelets 175. CMP: Sodium 135, potassium 3.6, chloride 95, serum bicarb 33, BUN 45, creatinine 2.3, glucose 113. Lactic 1.1. LFTs unremarkable. Patient currently be evaluated on the general medical floor. She is resting comfortably on 1 L/min nasal cannula. Expiratory wheezing and bronchospastic cough. No respiratory distress. States she originally tested positive for RSV at her PCPs office, Dr. Hogue, approximately 2 weeks ago. No improvement with supportive care including steroid burst taper and albuterol nebs. Continues to have shortness of breath with associated persistent dry non productive cough and wheezing. Chest discomfort, only with coughing fits. States she has Tessalon Perles at home, which helps with the cough. Fevers and chills have subsided. Tolerating oral intake including fluids and food. Previous episodes of diarrhea, which have sub sided. Current vital signs: Temperature 97.7 F, heart rate 64 bpm, blood pressure 133/81 mmHg, nontachypneic, SpO2 recorded at 94% on 1 L/min nasal cannula. 08/17/2024, the patient remains congested and wheezy and she is having also limited shortness of breath at rest. She has an acute RSV infection and the patient was seen in consultation yesterday. The patient has exacerbation of her chronic bronchial asthma related to RSV infection. The patient is currently on 2 L of oxygen by nasal cannula. No nausea vomiting or diarrhea. No new labs are available from today. No altered mentation. Remains on bronchodilators. Remains on IV Solu-Medrol 60 mg every 6 hours. Remains on Symbicort and Tessalon perles. On 08/18/2024, the patient is being seen for a follow-up. The patient is still c ongested bronchospastic and wheezy compared to yesterday. Resting comfortably in bed. She remains on 2 L of oxygen by nasal cannula with a pulse ox of 95%. The patient has end-stage renal disease on hemodialysis. Sodium is at 136 and potassium is at 3.4. The white cell count 13.6 with a hemoglobin of 9. The patient has an acute RSV infection. The patient remains on Symbicort and DuoNeb nebulizers [id number] and the patient is on IV Solu-Medrol. She is on Bumex 1 mg p.o. daily. No other nephrotoxic agents being administered at this point. The patient is seen today August 19, 2024 in follow-up on the regular medical floor. She is awake and alert in no acute distress. She is maintaining O2 saturations in the 90s on 2 L/min per nasal cannula. She remains afebrile. Hemodynamically stable. Blood culture reveals no growth. Sodium 136. Potassium 3.2. Bicarb 21. BUN 68. Creatinine 3.3. Glucose 161. She is continued on DuoNeb and elations, Symbicort, Solu-Medrol, Singulair. Remains on Tessalon Perles. Remains on oral diuretics. Heparin for DVT prophylaxis. Objective - Vital Signs Vital signs: Vital Signs Temp 97.1 F L 08/19/24 07:00 Pulse 72 08/19/24 13:27 Resp 20 08/19/24 10:54 BP 133/80 08/19/24 07:00 Pulse Ox 97 08/19/24 07:00 FiO2 Intake & Output 08/18/24 08/19/24 08/19/24 18:59 06:59 18:59 Intake Total 200 Balance 200 Intake: Oral 200 Other: Voiding Method Toilet Diaper # Voids 4 3 2 # Bowel Movements 0 - Exam GENERAL EXAM: Alert, pleasant 79-year-old female, on 2 L nasal cannula, fairly comfortable in no apparent distress. HEAD: Normocephalic. EYES: Normal reaction of pupils, equal size. NOSE: Clear with pink turbinates. THROAT: No erythema or exudates. NECK: No masses, no JVD. CHEST: No chest wall deformity. LUNGS: Equal air entry with few scattered rhonchi. CVS: S1 and S2 normal with no audible murmur, regular rhythm. ABDOMEN: No hepatosplenomegaly, normal bowel sounds, no guarding or rigidity. SPINE: No scoliosis or deformity SKIN: No rashes CENTRAL NERVOUS SYSTEM: No focal deficits, tone is normal in all 4 extremities. EXTREMITIES: There is no peripheral edema. No clubbing, no cyanosis. Peripheral pulses are intact. - Labs CBC & Chem 7: 08/18/24 06:00 08/19/24 04:08 Labs: Abnormal Lab Results - Last 24 Hours (Table) 08/19/24 Range/Units 04:08 Potassium 3.2 L (3.5-5.5) mmol/L Carbon Dioxide 21.2 L (21.6-31.8) mmol/L Anion Gap 16.80 H (4.00-12.00) mmol/L BUN 68.2 H (9.0-27.0) mg/dL Creatinine 3.3 H (0.6-1.5) mg/dL Est GFR (CKD-EPI) 14 L (>=60) BUN/Creatinine Ratio 20.67 H (12.00-20.00) Ratio Glucose 161 H (70-110) mg/dL Calcium 8.0 L (8.7-10.3) mg/dL Microbiology - Last 24 Hours (Table) 08/16/24 05:09 Blood Culture - Preliminary Blood Assessment and Plan Assessment: Exacerbation of mild intermittent bronchial asthma, secondary to acute RSV bronchitis Acute RSV bronchitis Acute hypoxemic respiratory failure, currently on 2 L/min nasal cannula, secondary to above End-stage renal disease, maintained on hemodialysis with a Monday, Monday, Monday schedule Anemia of chronic disease History of nephrolithiasis and frequent urinary tract infections History of hypothyroidism history of polymyalgia rheumatica Lifelong non-smoker Plan: The patient was seen and evaluated Labs and medications reviewed Stable and on 2 L nasal cannula Plan is for hemodialysis today Continue bronchodilators, steroids Heparin for DVT prophylaxis Remains on oral diuretics We will continue to follow I have personally seen and examined the patient, performed the documentation and the assessment and plan as written. Number of minutes spent on the visit: 10 Dictation was produced using [employer] dictation software. Please excuse any gram matical, word or spelling errors.
[2024-08-19] MEDS ORDERED: ALTEPLASE 2 MG VIAL (CATHFLO) ONE (15:15)
--- NOTE | 2024-08-19 15:43 | P.PN ---
Subjective Patient is seen for follow-up for end-stage renal disease. Complaining of feeling tired and mildly short of breath. Patient is scheduled for hemodialysis today however her dialysis catheter was not functioning and Cathflo has been placed. We will reattempt to dialyze later today. Objective - Vital Signs Vital signs: Vital Signs Temp 97.1 F L 08/19/24 07:00 Pulse 72 08/19/24 13:27 Resp 20 08/19/24 10:54 BP 133/80 08/19/24 07:00 Pulse Ox 97 08/19/24 07:00 FiO2 Intake & Output 08/18/24 08/19/24 08/19/24 18:59 06:59 18:59 Intake Total 200 Balance 200 Intake: Oral 200 Other: Voiding Method Toilet Diaper # Voids 4 3 2 # Bowel Movements 0 - Exam Patient is awake, comfortable, no acute distress Examination of the heart S1 and S2 Examination of the lungs bilateral breath sounds are heard Abdomen is soft nontender Examination lower extremity shows chronic edema - Labs CBC & Chem 7: 08/18/24 06:00 08/19/24 04:08 Labs: Abnormal Lab Results - Last 24 Hours (Table) 08/19/24 Range/Units 04:08 Potassium 3.2 L (3.5-5.5) mmol/L Carbon Dioxide 21.2 L (21.6-31.8) mmol/L Anion Gap 16.80 H (4.00-12.00) mmol/L BUN 68.2 H (9.0-27.0) mg/dL Creatinine 3.3 H (0.6-1.5) mg/dL Est GFR (CKD-EPI) 14 L (>=60) BUN/Creatinine Ratio 20.67 H (12.00-20.00) Ratio Glucose 161 H (70-110) mg/dL Calcium 8.0 L (8.7-10.3) mg/dL Microbiology - Last 24 Hours (Table) 08/16/24 05:09 Blood Culture - Preliminary Blood Assessment and Plan Assessment: 1. End-stage renal disease maintained on hemodialysis on Monday schedule. Has permacath. She has a clotted AV graft. 2. Acute RSV pneumonia. 3. Chronic kidney disease mineral bone disease. On PhosLo. 4. Acute COPD exacerbation. 5. Hypokalemia from diuresis. 6. Anemia of chronic kidney disease. Plan: Cathflo and dialysis catheter and will reattempt to dialyze later on today Replace potassium
[2024-08-19] MEDS: ALTEPLASE 2 MG VIAL (CATHFLO) MISCELLANE STA ×2 (16:37)
[2024-08-19] MEDS: POTASSIUM CHLORIDE ER 20 MEQ TAB.ER PO SCH (16:43)
[2024-08-19] MEDS: POTASSIUM CHLORIDE ER 20 MEQ TAB.ER PO STA (18:57)
[2024-08-19] MEDS ORDERED: HEPARIN SODIUM 1,000 UN/ML (10ML VL) ONE (19:40)
[2024-08-20 03:20] LABS: African American GFR (CKD) 36 (>60 ml/min/1.73 sqM); Anion Gap 10 mmol/L; Blood Urea Nitrogen 31 mg/dL (7-17); Calcium 8.1 mg/dL (8.4-10.2); Carbon Dioxide 24 mmol/L (22-30); Chloride 96 mmol/L (98-107); Glucose 131 mg/dL (74-99); Non-African American GFR(CKD) 31 (>60 ml/min/1.73 sqM); Potassium 3.8 mmol/L (3.5-5.1); Sodium 130 mmol/L (137-145)
[2024-08-20 09:30] LABS: HGB 10.6 g/dL (12.0-15.0); MCH 33.3 pg (27.0-32.0); MCHC 32.1 g/dL (32.0-37.0); MCV 103.8 FL (80.0-97.0); Mean Platelet Volume 10.7 FL (9.5-12.2); NRBC Per 100 WBC 0.02 X 10*3/uL (0.00-0.01); Platelet Count 137 X 10*3/uL (140-440); RBC 3.18 X 10*6/uL (4.10-5.20); RDW 14.3 % (11.5-14.5); WBC 13.78 X 10*3/uL (4.50-10.00)
[2024-08-20 09:59] LABS: Basophils # (M) 0 X 10*3/uL (0.00-0.10); Eosinophils # (M) 0 X 10*3/uL (0.04-0.35); Lymphocytes # (M) 0.14 X 10*3/uL (0.90-5.00); Macrocytosis (M) 2+ (None Seen); Monocytes # (M) 0.69 X 10*3/uL (0.20-1.00); Neutrophils # (M) 12.95 X 10*3/uL (1.80-7.70); Neutrophils % (M) 94 %; Nucleated Red Blood Cells 1 /100 WBCS
--- NOTE | 2024-08-20 14:42 | P.PN ---
Subjective Progress Note Date: 08/20/24 79-year-old female present to the emergency department with concerns with difficulty breathing. Symptoms have been occurring over the past 7 to 10 days. Patient does have cough, dry nonproductive. Patient was diagnosed with RSV as an outpatient. Patient does have history of asthma. Patient has been on 2 different antibiotics without improvement of symptoms. Patient called Dr. Roger and was advised to come to the emergency department. States she originally tested positive for RSV at her PCPs office, Dr. Hogue, approximately 2 weeks ago. Chest x-ray shows chronic parenchymal changes without any focal infiltrates, pleural effusions, pneumothoraces. Right subclavian permacath. CBC: WBC count 7.4, hemoglobin 10.7, platelets 175. CMP: Sodium 135, potassium 3.6, chloride 95, serum bicarb 33, BUN 45, creatinine 2.3, glucose 113. Lactic 1.1. LFTs unremarkable. 08/18/2024 - the patient is seen and evaluated in room 4 follow-up. The patient is still congested bronchospastic and wheezy compared to yesterday. - She remains on 2 L of oxygen by nasal cannula with a pulse ox of 95%. The patient has end-stage renal disease on hemodialysis. Blood work reveals sodium is at 136 and potassium is at 3.4. The white cell count 13.6 with a hemoglobin of 9. - The patient has an acute RSV infection. The patient remains on Symbicort and DuoNeb nebulizers [id number] and the patient is on IV Solu-Medrol. She is on Bumex 1 mg p.o. daily. No other nephrotoxic agents being administered at this point. -Pulmonary on board and recommending to continue with DuoNeb nebulizer treatments, IV Solu-Medrol and Symbicort; symptomatic treatment with antitussives and Tylenol 08/19 Patient still has extensive wheezing Patient is on 2.5 L oxygen via nasal cannula Low potassium has been replaced. Creatinine increased to 3.3. Patient is a known case of End-stage renal disease on hemodialysis She is positive for RSV virus been treated symptomatically on steroids Patient is requesting Ultram for pain she states she take it at home 08/20. Patient seen and examined. Blood work this morning showed WBC 13.78, hemoglobin 10.6, platelet count 137,. Currently on 2 L of oxygen. Complaining of worsening congestion and shortness of breath REVIEW OF SYSTEMS: CONSTITUTIONAL: No fever, no malaise,. CARDIOVASCULAR: No chest pain, no palpitations, no syncope. PULMONARY: As mentioned above GASTROINTESTINAL: No diarrhea, no nausea, no vomiting, no abdominal pain. NEUROLOGICAL: No headaches, no weakness, PHYSICAL EXAMINATION: GENERAL: The patient is alert and oriented x3, not in any acute distress. Well developed, well nourished. HEENT: Pupils are round and equally reacting to light. EOMI. No scleral icterus. No conjunctival pallor. Normocephalic, atraumatic. No pharyngeal erythema. No thyromegaly. CARDIOVASCULAR: S1 and S2 present. No murmurs, rubs, or gallops. PULMONARY: Chest is clear to auscultation, no wheezing or crackles. ABDOMEN: Soft, nontender, nondistended, normoactive bowel sounds. No palpable organomegaly. MUSCULOSKELETAL: No joint swelling or deformity. EXTREMITIES: No cyanosis, clubbing, or pedal edema. NEUROLOGICAL: Gross neurological examination did not reveal any focal deficits. SKIN: No rashes. Assessment and plan 1. Acute exacerbation COPD/asthma; 2. Acute hypoxic respiratory failure; 3. End-stage renal disease/HD; 4. Nephrolithiasis with frequent UTIs; 5. Hypothyroidism; 6. Anemia of chronic disease; 7. History of pulmonary nodule; Monitor vital signs Monitor CBC Monitor CMP Continue telemetry monitoring Continue oxygen supplementation Continue breathing treatment continue IV Solu-Medrol Continue dialysis per nephrology Nephrology following Pulmonology following Labs and medication were reviewed.. Continue same treatment. Continue with symptomatic treatment. Resume home medication. Monitor labs and vitals. DVT and GI prophylaxis. Further recommendations as per clinical course of the patient Dictation was produced using [employer] dictation software. please excuse any grammatical, word or spelling errors. Objective - Vital Signs Vital signs: Vital Signs Temp 97.5 F L 08/20/24 06:43 Pulse 80 08/20/24 09:38 Resp 20 08/20/24 06:43 BP 123/71 08/20/24 06:43 Pulse Ox 92 L 08/20/24 06:43 FiO2 Intake & Output 08/19/24 08/20/24 08/20/24 18:59 06:59 18:59 Intake Total 300 740 200 Output Total 3500 Balance 300 -2760 200 Intake: Oral 300 240 200 Hemodialysis 500 Output: Hemodialysis 2000 Hemodialysis Net Amount 1500 Other: Voiding Method Toilet Toilet Diaper Diaper # Voids 1 3 - Labs CBC & Chem 7: 08/20/24 03:18 08/20/24 02:48 Labs: Abnormal Lab Results - Last 24 Hours (Table) 08/20/24 08/20/24 Range/Units 02:48 03:18 WBC 13.78 H (4.50-10.00) X 10*3/uL RBC 3.18 L (4.10-5.20) X 10*6/uL Hgb 10.6 L (12.0-15.0) g/dL Hct 33.0 L (37.2-46.3) % MCV 103.8 H (80.0-97.0) FL MCH 33.3 H (27.0-32.0) pg Plt Count 137 L (140-440) X 10*3/uL Neutrophils # (Manual) 12.95 H (1.80-7.70) X 10*3/uL Lymphocytes # (Manual) 0.14 L (0.90-5.00) X 10*3/uL Eosinophils # (Manual) 0 L (0.04-0.35) X 10*3/uL NRBC/100 WBC Diff 0.02 H (0.00-0.01) X 10*3/uL Macrocytosis (manual) 2+ A (None Seen) Sodium 130 L (137-145) mmol/L Chloride 96 L (98-107) mmol/L BUN 31 H (7-17) mg/dL Creatinine 1.57 H (0.52-1.04) mg/dL Glucose 131 H (74-99) mg/dL Calcium 8.1 L (8.4-10.2) mg/dL Microbiology - Last 24 Hours (Table) 08/16/24 05:09 Blood Culture - Preliminary Blood
--- NOTE | 2024-08-20 15:16 | P.PN ---
Subjective Progress Note Date: 08/20/24 Patient is an 79-year-old female with past medical history significant for mild intermittent asthma, end-stage renal disease on hemodialysis, polymyalgia rheumatica, hypothyroidism, cerebral aneurysm. Chief complaint is increase work of breathing over the last week. Also, endorses associated dry cough that is nonproductive. Tested positive for RSV as an outpatient. Patient does have history of mild intermittent bronchial asthma. Lifelong non-smoker. Follows in the pulmonary office with Dr. Roger. Directed to the emergency department yesterday evening. Workup in the emergency department including viral 4 Plex again positive for RSV. Chest x-ray shows chronic parenchymal changes without any focal infiltrates, pleural effusions, pneumothoraces. Right subclavian permacath. CBC: WBC count 7.4, hemoglobin 10.7, platelets 175. CMP: Sodium 135, potassium 3.6, chloride 95, serum bicarb 33, BUN 45, creatinine 2.3, glucose 113. Lactic 1.1. LFTs unremarkable. Patient currently be evaluated on the general medical floor. She is resting comfortably on 1 L/min nasal cannula. Expiratory wheezing and bronchospastic cough. No respiratory distress. States she originally tested positive for RSV at her PCPs office, Dr. Hogue, approximately 2 weeks ago. No improvement with supportive care including steroid burst taper and albuterol nebs. Continues to have shortness of breath with associated persistent dry non productive cough and wheezing. Chest discomfort, only with coughing fits. States she has Tessalon Perles at home, which helps with the cough. Fevers and chills have subsided. Tolerating oral intake including fluids and food. Previous episodes of diarrhea, which have sub sided. Current vital signs: Temperature 97.7 F, heart rate 64 bpm, blood pressure 133/81 mmHg, nontachypneic, SpO2 recorded at 94% on 1 L/min nasal cannula. 08/17/2024, the patient remains congested and wheezy and she is having also limited shortness of breath at rest. She has an acute RSV infection and the patient was seen in consultation yesterday. The patient has exacerbation of her chronic bronchial asthma related to RSV infection. The patient is currently on 2 L of oxygen by nasal cannula. No nausea vomiting or diarrhea. No new labs are available from today. No altered mentation. Remains on bronchodilators. Remains on IV Solu-Medrol 60 mg every 6 hours. Remains on Symbicort and Tessalon perles. On 08/18/2024, the patient is being seen for a follow-up. The patient is still c ongested bronchospastic and wheezy compared to yesterday. Resting comfortably in bed. She remains on 2 L of oxygen by nasal cannula with a pulse ox of 95%. The patient has end-stage renal disease on hemodialysis. Sodium is at 136 and potassium is at 3.4. The white cell count 13.6 with a hemoglobin of 9. The patient has an acute RSV infection. The patient remains on Symbicort and DuoNeb nebulizers [id number] and the patient is on IV Solu-Medrol. She is on Bumex 1 mg p.o. daily. No other nephrotoxic agents being administered at this point. The patient is seen today August 19, 2024 in follow-up on the regular medical floor. She is awake and alert in no acute distress. She is maintaining O2 saturations in the 90s on 2 L/min per nasal cannula. She remains afebrile. Hemodynamically stable. Blood culture reveals no growth. Sodium 136. Potassium 3.2. Bicarb 21. BUN 68. Creatinine 3.3. Glucose 161. She is continued on DuoNeb and elations, Symbicort, Solu-Medrol, Singulair. Remains on Tessalon Perles. Remains on oral diuretics. Heparin for DVT prophylaxis. The patient is seen today August 20, 2024 in follow-up on the regular medical floor. She remains awake and alert in no acute distress. Maintaining O2 saturations in the 90s on 2 L/min per nasal cannula. She is continued on DuoNeb inhalations, Symbicort, Solu-Medrol, Singulair. Heparin for DVT prophylaxis. Blood culture reveals no growth. White count 13.7. Hemoglobin 10.6. Platelets 137. Sodium 130. Potassium 3.8. Bicarb 24. BUN 31. Creatinine 1.57. Objective - Vital Signs Vital signs: Vital Signs Temp 97.4 F L 08/20/24 13:54 Pulse 72 08/20/24 13:54 Resp 18 08/20/24 13:54 BP 119/69 08/20/24 13:54 Pulse Ox 96 08/20/24 13:54 FiO2 Intake & Output 08/19/24 08/20/24 08/20/24 18:59 06:59 18:59 Intake Total 300 740 400 Output Total 3500 Balance 300 -2760 400 Intake: Oral 300 240 400 Hemodialysis 500 Output: Hemodialysis 2000 Hemodialysis Net Amount 1500 Other: Voiding Method Toilet Toilet Toilet Diaper Diaper Diaper # Voids 1 3 - Exam GENERAL EXAM: Alert, 79-year-old female, on 2 L nasal cannula, comfortable in no apparent distress. HEAD: Normocephalic. EYES: Normal reaction of pupils, equal size. NOSE: Clear with pink turbinates. THROAT: No erythema or exudates. NECK: No masses, no JVD. CHEST: No chest wall deformity. LUNGS: Equal air entry with few scattered rhonchi. CVS: S1 and S2 normal with no audible murmur, regular rhythm. ABDOMEN: No hepatosplenomegaly, normal bowel sounds, no guarding or rigidity. SPINE: No scoliosis or deformity SKIN: No rashes CENTRAL NERVOUS SYSTEM: No focal deficits, tone is normal in all 4 extremities. EXTREMITIES: There is no peripheral edema. No clubbing, no cyanosis. Peripheral pulses are intact. - Labs CBC & Chem 7: 08/20/24 03:18 08/20/24 02:48 Labs: Abnormal Lab Results - Last 24 Hours (Table) 08/20/24 08/20/24 Range/Units 02:48 03:18 WBC 13.78 H (4.50-10.00) X 10*3/uL RBC 3.18 L (4.10-5.20) X 10*6/uL Hgb 10.6 L (12.0-15.0) g/dL Hct 33.0 L (37.2-46.3) % MCV 103.8 H (80.0-97.0) FL MCH 33.3 H (27.0-32.0) pg Plt Count 137 L (140-440) X 10*3/uL Neutrophils # (Manual) 12.95 H (1.80-7.70) X 10*3/uL Lymphocytes # (Manual) 0.14 L (0.90-5.00) X 10*3/uL Eosinophils # (Manual) 0 L (0.04-0.35) X 10*3/uL NRBC/100 WBC Diff 0.02 H (0.00-0.01) X 10*3/uL Macrocytosis (manual) 2+ A (None Seen) Sodium 130 L (137-145) mmol/L Chloride 96 L (98-107) mmol/L BUN 31 H (7-17) mg/dL Creatinine 1.57 H (0.52-1.04) mg/dL Glucose 131 H (74-99) mg/dL Calcium 8.1 L (8.4-10.2) mg/dL Microbiology - Last 24 Hours (Table) 08/16/24 05:09 Blood Culture - Preliminary Blood Assessment and Plan Assessment: Exacerbation of mild intermittent bronchial asthma, secondary to acute RSV bronchitis Acute RSV bronchitis Acute hypoxemic respiratory failure, currently on 2 L/min nasal cannula, seconda ry to above End-stage renal disease, maintained on hemodialysis with a Monday, Monday, Monday schedule Anemia of chronic disease History of nephrolithiasis and frequent urinary tract infections History of hypothyroidism history of polymyalgia rheumatica Lifelong non-smoker Plan: The patient was seen and evaluated Labs and medications reviewed Stable and on 2 L nasal cannula Continue bronchodilators, steroids Heparin for DVT prophylaxis Remains on oral diuretics Plan is to return home at discharge I have personally seen and examined the patient, performed the documentation and the assessment and plan as written. Number of minutes spent on the visit: 10 Dictation was produced using [employer] dictation software. Please excuse any grammatical, word or spelling errors.
--- NOTE | 2024-08-20 17:19 | P.PN ---
Subjective Patient is seen for follow-up for end-stage renal disease. Status post hemodialysis yesterday with UF of 1.5 L Feeling slightly better today but continues to be tired Objective - Vital Signs Vital signs: Vital Signs Temp 97.4 F L 08/20/24 13:54 Pulse 76 08/20/24 16:08 Resp 18 08/20/24 13:54 BP 119/69 08/20/24 13:54 Pulse Ox 96 08/20/24 13:54 FiO2 Intake & Output 08/19/24 08/20/24 08/20/24 18:59 06:59 18:59 Intake Total 300 740 600 Output Total 3500 Balance 300 -2760 600 Intake: Oral 300 240 600 Hemodialysis 500 Output: Hemodialysis 2000 Hemodialysis Net Amount 1500 Other: Voiding Method Toilet Toilet Toilet Diaper Diaper Diaper # Voids 1 3 1 - Exam Patient is awake, comfortable, no acute distress Examination of the heart S1 and S2 Examination of the lungs bilateral breath sounds are heard Abdomen is soft nontender Examination lower extremity shows chronic edema, both legs are wrapped - Labs CBC & Chem 7: 08/20/24 03:18 08/20/24 02:48 Labs: Abnormal Lab Results - Last 24 Hours (Table) 08/20/24 08/20/24 Range/Units 02:48 03:18 WBC 13.78 H (4.50-10.00) X 10*3/uL RBC 3.18 L (4.10-5.20) X 10*6/uL Hgb 10.6 L (12.0-15.0) g/dL Hct 33.0 L (37.2-46.3) % MCV 103.8 H (80.0-97.0) FL MCH 33.3 H (27.0-32.0) pg Plt Count 137 L (140-440) X 10*3/uL Neutrophils # (Manual) 12.95 H (1.80-7.70) X 10*3/uL Lymphocytes # (Manual) 0.14 L (0.90-5.00) X 10*3/uL Eosinophils # (Manual) 0 L (0.04-0.35) X 10*3/uL NRBC/100 WBC Diff 0.02 H (0.00-0.01) X 10*3/uL Macrocytosis (manual) 2+ A (None Seen) Sodium 130 L (137-145) mmol/L Chloride 96 L (98-107) mmol/L BUN 31 H (7-17) mg/dL Creatinine 1.57 H (0.52-1.04) mg/dL Glucose 131 H (74-99) mg/dL Calcium 8.1 L (8.4-10.2) mg/dL Assessment and Plan Assessment: 1. End-stage renal disease maintained on hemodialysis on Monday schedule. Has permacath. She has a thrombosed AV graft. 2. Acute RSV pneumonia. 3. Chronic kidney disease mineral bone disease. On PhosLo. 4. Acute COPD exacerbation. 5. Hypokalemia from diuresis. 6. Anemia of chronic kidney disease. Plan: Hemodialysis in a.m.
[2024-08-21] MEDS ORDERED: HEPARIN SODIUM 1,000 UN/ML (10ML VL) ONE (09:35)
--- NOTE | 2024-08-21 11:15 | P.PN ---
Subjective Patient is seen for follow-up for end-stage renal disease. Seen on hemodialysis today. Feeling much better today. Objective - Vital Signs Vital signs: Vital Signs Temp 97.3 F L 08/21/24 07:38 Pulse 78 08/21/24 09:31 Resp 18 08/21/24 07:38 BP 133/73 08/21/24 07:38 Pulse Ox 97 08/21/24 07:38 FiO2 Intake & Output 08/20/24 08/21/24 08/21/24 18:59 06:59 18:59 Intake Total 600 2190 Balance 600 2190 Intake: Oral 600 2190 Other: Voiding Method Toilet Toilet Diaper Diaper # Voids 1 3 - Exam Patient is awake, comfortable, no acute distress Examination of the heart S1 and S2 Examination of the lungs bilateral breath sounds are heard Abdomen is soft nontender Examination lower extremity shows chronic edema, both legs are wrapped - Labs CBC & Chem 7: 08/20/24 03:18 08/20/24 02:48 Assessment and Plan Assessment: 1. End-stage renal disease maintained on hemodialysis on Monday Fr schedule. Has permacath. She has a thrombosed AV graft. 2. Acute RSV pneumonia. 3. Chronic kidney disease mineral bone disease. On PhosLo. 4. Acute COPD exacerbation. 5. Hypokalemia from diuresis. 6. Anemia of chronic kidney disease. Plan: Hemodialysis today with UF of 2 to 3 L as tolerated Cathflo in the dialysis catheter after treatment as we have had poor flows.
--- NOTE | 2024-08-21 12:51 | P.PN ---
Subjective Progress Note Date: 08/21/24 79-year-old female present to the emergency department with concerns with difficulty breathing. Symptoms have been occurring over the past 7 to 10 days. Patient does have cough, dry nonproductive. Patient was diagnosed with RSV as an outpatient. Patient does have history of asthma. Patient has been on 2 different antibiotics without improvement of symptoms. Patient called Dr. Roger and was advised to come to the emergency department. States she originally tested positive for RSV at her PCPs office, Dr. Hogue, approximately 2 weeks ago. Chest x-ray shows chronic parenchymal changes without any focal infiltrates, pleural effusions, pneumothoraces. Right subclavian permacath. CBC: WBC count 7.4, hemoglobin 10.7, platelets 175. CMP: Sodium 135, potassium 3.6, chloride 95, serum bicarb 33, BUN 45, creatinine 2.3, glucose 113. Lactic 1.1. LFTs unremarkable. 08/18/2024 - the patient is seen and evaluated in room 4 follow-up. The patient is still congested bronchospastic and wheezy compared to yesterday. - She remains on 2 L of oxygen by nasal cannula with a pulse ox of 95%. The patient has end-stage renal disease on hemodialysis. Blood work reveals sodium is at 136 and potassium is at 3.4. The white cell count 13.6 with a hemoglobin of 9. - The patient has an acute RSV infection. The patient remains on Symbicort and DuoNeb nebulizers [id number] and the patient is on IV Solu-Medrol. She is on Bumex 1 mg p.o. daily. No other nephrotoxic agents being administered at this point. -Pulmonary on board and recommending to continue with DuoNeb nebulizer treatments, IV Solu-Medrol and Symbicort; symptomatic treatment with antitussives and Tylenol 08/19 Patient still has extensive wheezing Patient is on 2.5 L oxygen via nasal cannula Low potassium has been replaced. Creatinine increased to 3.3. Patient is a known case of End-stage renal disease on hemodialysis She is positive for RSV virus been treated symptomatically on steroids Patient is requesting Ultram for pain she states she take it at home 08/20. Patient seen and examined. Blood work this morning showed WBC 13.78, hemoglobin 10.6, platelet count 137,. Currently on 2 L of oxygen. Complaining of worsening congestion and shortness of breath /19. Patient seen and examined regarding lethargic and weakness. Patient was undergoing dialysis today. Patient wants to talk to case management about possible rehab REVIEW OF SYSTEMS: CONSTITUTIONAL: No fever, no malaise,. CARDIOVASCULAR: No chest pain, no palpitations, no syncope. PULMONARY: As mentioned above GASTROINTESTINAL: No diarrhea, no nausea, no vomiting, no abdominal pain. NEUROLOGICAL: No headaches, no weakness, PHYSICAL EXAMINATION: GENERAL: The patient is alert and oriented x3, ill looking HEENT: Pupils are round and equally reacting to light. EOMI. No scleral icterus. No conjunctival pallor. Normocephalic, atraumatic. No pharyngeal erythema. No thyromegaly. CARDIOVASCULAR: S1 and S2 present. No murmurs, rubs, or gallops. PULMONARY: Coarse breath sound bilaterally, rhonchi audible, no wheezing or crackles. ABDOMEN: Soft, nontender, nondistended, normoactive bowel sounds. No palpable organomegaly. MUSCULOSKELETAL: No joint swelling or deformity. EXTREMITIES: No cyanosis, clubbing, or pedal edema. NEUROLOGICAL: Gross neurological examination did not reveal any focal deficits. SKIN: No rashes. Assessment and plan 1. Acute exacerbation COPD/asthma; 2. Acute hypoxic respiratory failure; 3. End-stage renal disease/HD; 4. Nephrolithiasis with frequent UTIs; 5. Hypothyroidism; 6. Anemia of chronic disease; 7. History of pulmonary nodule; Monitor vital signs Monitor CBC Monitor CMP Continue telemetry monitoring Continue oxygen supplementation Continue breathing treatment continue IV Solu-Medrol Continue dialysis per nephrology Nephrology following Pulmonology following Labs and medication were reviewed.. Continue same treatment. Continue with symptomatic treatment. Resume home medication. Monitor labs and vitals. DVT and GI prophylaxis. Further recommendations as per clinical course of the patient Dictation was produced using [employer] dictation software. please excuse any g rammatical, word or spelling errors. Objective - Vital Signs Vital signs: Vital Signs Temp 97.3 F L 08/21/24 07:38 Pulse 78 08/21/24 09:31 Resp 18 08/21/24 07:38 BP 133/73 08/21/24 07:38 Pulse Ox 97 08/21/24 07:38 FiO2 Intake & Output 08/20/24 08/21/2408/21/25 18:59 06:59 18:59 Intake Total 600 2190 Balance 600 2190 Intake: Oral 600 2190 Other: Voiding Method Toilet Toilet Diaper Diaper # Voids 1 3 - Labs CBC & Chem 7: 08/20/24 03:18 08/20/24 02:48
[2024-08-21] MEDS: ALTEPLASE 2 MG VIAL (CATHFLO) MISCELLANE STA (13:20)
--- NOTE | 2024-08-21 16:24 | P.PN ---
Subjective Progress Note Date: 08/21/24 Patient is an 79-year-old female with past medical history significant for mild intermittent asthma, end-stage renal disease on hemodialysis, polymyalgia rheumatica, hypothyroidism, cerebral aneurysm. Chief complaint is increase work of breathing over the last week. Also, endorses associated dry cough that is nonproductive. Tested positive for RSV as an outpatient. Patient does have history of mild intermittent bronchial asthma. Lifelong non-smoker. Follows in the pulmonary office with Dr. Roger. Directed to the emergency department yesterday evening. Workup in the emergency department including viral 4 Plex again positive for RSV. Chest x-ray shows chronic parenchymal changes without any focal infiltrates, pleural effusions, pneumothoraces. Right subclavian permacath. CBC: WBC count 7.4, hemoglobin 10.7, platelets 175. CMP: Sodium 135, potassium 3.6, chloride 95, serum bicarb 33, BUN 45, creatinine 2.3, glucose 113. Lactic 1.1. LFTs unremarkable. Patient currently be evaluated on the general medical floor. She is resting comfortably on 1 L/min nasal cannula. Expiratory wheezing and bronchospastic cough. No respiratory distress. States she originally tested positive for RSV at her PCPs office, Dr. Hogue, approximately 2 weeks ago. No improvement with supportive care including steroid burst taper and albuterol nebs. Continues to have shortness of breath with associated persistent dry non productive cough and wheezing. Chest discomfort, only with coughing fits. States she has Tessalon Perles at home, which helps with the cough. Fevers and chills have subsided. Tolerating oral intake including fluids and food. Previous episodes of diarrhea, which have sub sided. Current vital signs: Temperature 97.7 F, heart rate 64 bpm, blood pressure 133/81 mmHg, nontachypneic, SpO2 recorded at 94% on 1 L/min nasal cannula. 08/17/2024, the patient remains congested and wheezy and she is having also limited shortness of breath at rest. She has an acute RSV infection and the patient was seen in consultation yesterday. The patient has exacerbation of her chronic bronchial asthma related to RSV infection. The patient is currently on 2 L of oxygen by nasal cannula. No nausea vomiting or diarrhea. No new labs are available from today. No altered mentation. Remains on bronchodilators. Remains on IV Solu-Medrol 60 mg every 6 hours. Remains on Symbicort and Tessalon perles. On 08/18/2024, the patient is being seen for a follow-up. The patient is still c ongested bronchospastic and wheezy compared to yesterday. Resting comfortably in bed. She remains on 2 L of oxygen by nasal cannula with a pulse ox of 95%. The patient has end-stage renal disease on hemodialysis. Sodium is at 136 and potassium is at 3.4. The white cell count 13.6 with a hemoglobin of 9. The patient has an acute RSV infection. The patient remains on Symbicort and DuoNeb nebulizers [id number] and the patient is on IV Solu-Medrol. She is on Bumex 1 mg p.o. daily. No other nephrotoxic agents being administered at this point. The patient is seen today August 19, 2024 in follow-up on the regular medical floor. She is awake and alert in no acute distress. She is maintaining O2 saturations in the 90s on 2 L/min per nasal cannula. She remains afebrile. Hemodynamically stable. Blood culture reveals no growth. Sodium 136. Potassium 3.2. Bicarb 21. BUN 68. Creatinine 3.3. Glucose 161. She is continued on DuoNeb and elations, Symbicort, Solu-Medrol, Singulair. Remains on Tessalon Perles. Remains on oral diuretics. Heparin for DVT prophylaxis. The patient is seen today August 20, 2024 in follow-up on the regular medical floor. She remains awake and alert in no acute distress. Maintaining O2 saturations in the 90s on 2 L/min per nasal cannula. She is continued on DuoNeb inhalations, Symbicort, Solu-Medrol, Singulair. Heparin for DVT prophylaxis. Blood culture reveals no growth. White count 13.7. Hemoglobin 10.6. Platelets 137. Sodium 130. Potassium 3.8. Bicarb 24. BUN 31. Creatinine 1.57. The patient is seen today August 21, 2024 in follow-up on the regular medical floor. She is currently sitting up in bed. Awake and alert in no acute distress. Feeling nearly back to her baseline. Still somewhat bronchospastic and wheezing. She is due for hemodialysis today. Blood culture revealed no growth. No new labs today. She remains on DuoNeb and elations, Symbicort, Solu-Medrol and Singulair. Heparin for DVT prophylaxis. Tessalon Perles for her cough as needed. Objective - Vital Signs Vital signs: Vital Signs Temp 98 F 08/21/24 15:34 Pulse 78 08/21/24 16:14 Resp 16 08/21/24 15:34 BP 157/88 08/21/24 15:34 Pulse Ox 95 08/21/24 14:25 FiO2 Intake & Output 08/20/24 08/21/24 08/21/24 18:59 06:59 18:59 Intake Total 600 2190 400 Output Total 4400 Balance 600 2190 -4000 Intake: Oral 600 2190 Hemodialysis 400 Output: Hemodialysis 2400 Hemodialysis Net Amount 2000 Other: Voiding Method Toilet Toilet Diaper Diaper # Voids 1 3 - Exam GENERAL EXAM: Alert, 79-year-old female, sitting up in bed, awaiting dialysis, on 2 L nasal cannula, comfortable in no apparent distress. HEAD: Normocephalic. EYES: Normal reaction of pupils, equal size. NOSE: Clear with pink turbinates. THROAT: No erythema or exudates. NECK: No masses, no JVD. CHEST: No chest wall deformity. LUNGS: Equal air entry with few scattered rhonchi. CVS: S1 and S2 normal with no audible murmur, regular rhythm. ABDOMEN: No hepatosplenomegaly, normal bowel sounds, no guarding or rigidity. SPINE: No scoliosis or deformity SKIN: No rashes CENTRAL NERVOUS SYSTEM: No focal deficits, tone is normal in all 4 extremities. EXTREMITIES: There is no peripheral edema. No clubbing, no cyanosis. Peripheral pulses are intact. - Labs CBC & Chem 7: 08/20/24 03:18 08/20/24 02:48 Labs: Microbiology - Last 24 Hours (Table) 08/16/24 05:09 Blood Culture - Final Blood Assessment and Plan Assessment: Exacerbation of mild intermittent bronchial asthma, secondary to acute RSV bronchitis Acute RSV bronchitis Acute hypoxemic respiratory failure, currently on 2 L/min nasal cannula, secondary to above End-stage renal disease, maintained on hemodialysis with a Monday, Monday, Monday schedule Anemia of chronic disease History of nephrolithiasis and frequent urinary tract infections History of hypothyroidism history of polymyalgia rheumatica Lifelong non-smoker Plan: The patient was seen and evaluated Medications reviewed Stable and on 2 L nasal cannula Continue bronchodilators, steroids Heparin for DVT prophylaxis Remains on oral diuretics Plan is for hemodialysis today Patient is agreeable to rehabilitation possibly at [facility] I have personally seen and examined the patient, performed the documentation and the assessment and plan as written. Number of minutes spent on the visit: 10 Dictation was produced using [employer] dictation software. Please excuse any grammatical, word or spelling errors.
[2024-08-22 09:29] VITALS: BMI 22.1
--- NOTE | 2024-08-22 14:12 | P.PN ---
Subjective Progress Note Date: 08/22/24 79-year-old female present to the emergency department with concerns with difficulty breathing. Symptoms have been occurring over the past 7 to 10 days. Patient does have cough, dry nonproductive. Patient was diagnosed with RSV as an outpatient. Patient does have history of asthma. Patient has been on 2 different antibiotics without improvement of symptoms. Patient called Dr. Roger and was advised to come to the emergency department. States she originally tested positive for RSV at her PCPs office, Dr. Hogue, approximately 2 weeks ago. Chest x-ray shows chronic parenchymal changes without any focal infiltrates, pleural effusions, pneumothoraces. Right subclavian permacath. CBC: WBC count 7.4, hemoglobin 10.7, platelets 175. CMP: Sodium 135, potassium 3.6, chloride 95, serum bicarb 33, BUN 45, creatinine 2.3, glucose 113. Lactic 1.1. LFTs unremarkable. 08/18/2024 - the patient is seen and evaluated in room 4 follow-up. The patient is still congested bronchospastic and wheezy compared to yesterday. - She remains on 2 L of oxygen by nasal cannula with a pulse ox of 95%. The patient has end-stage renal disease on hemodialysis. Blood work reveals sodium is at 136 and potassium is at 3.4. The white cell count 13.6 with a hemoglobin of 9. - The patient has an acute RSV infection. The patient remains on Symbicort and DuoNeb nebulizers [id number] and the patient is on IV Solu-Medrol. She is on Bumex 1 mg p.o. daily. No other nephrotoxic agents being administered at this point. -Pulmonary on board and recommending to continue with DuoNeb nebulizer treatments, IV Solu-Medrol and Symbicort; symptomatic treatment with antitussives and Tylenol 08/19 Patient still has extensive wheezing Patient is on 2.5 L oxygen via nasal cannula Low potassium has been replaced. Creatinine increased to 3.3. Patient is a known case of End-stage renal disease on hemodialysis She is positive for RSV virus been treated symptomatically on steroids Patient is requesting Ultram for pain she states she take it at home 08/20. Patient seen and examined. Blood work this morning showed WBC 13.78, hemoglobin 10.6, platelet count 137,. Currently on 2 L of oxygen. Complaining of worsening congestion and shortness of breath /. Patient seen and examined complaining of lethargic and weakness. Patient was undergoing dialysis today. Patient wants to talk to case management about possible rehab 08/22. Patient seen and examined. Breathing is improved, states congestion has improved and she is able to bring up phlegm. Waiting on rehab placement REVIEW OF SYSTEMS: CONSTITUTIONAL: No fever, no malaise,. CARDIOVASCULAR: No chest pain, no palpitations, no syncope. PULMONARY: As mentioned above GASTROINTESTINAL: No diarrhea, no nausea, no vomiting, no abdominal pain. NEUROLOGICAL: No headaches, no weakness, PHYSICAL EXAMINATION: GENERAL: The patient is alert and oriented x3, ill looking HEENT: Pupils are round and equally reacting to light. EOMI. No scleral icterus. No conjunctival pallor. Normocephalic, atraumatic. No pharyngeal erythema. No thyromegaly. CARDIOVASCULAR: S1 and S2 present. No murmurs, rubs, or gallops. PULMONARY: Coarse breath sound bilaterally, rhonchi audible, no wheezing or crackles. ABDOMEN: Soft, nontender, nondistended, normoactive bowel sounds. No palpable organomegaly. MUSCULOSKELETAL: No joint swelling or deformity. EXTREMITIES: No cyanosis, clubbing, or pedal edema. NEUROLOGICAL: Gross neurological examination did not reveal any focal deficits. SKIN: No rashes. Assessment and plan 1. Acute exacerbation COPD/asthma; 2. Acute hypoxic respiratory failure; 3. End-stage renal disease/HD; 4. Nephrolithiasis with frequent UTIs; 5. Hypothyroidism; 6. Anemia of chronic disease; 7. History of pulmonary nodule; Monitor vital signs Monitor CBC Monitor CMP Continue telemetry monitoring Continue oxygen supplementation Continue breathing treatment continue IV Solu-Medrol Continue dialysis per nephrology Nephrology following Pulmonology following Labs and medication were reviewed.. Continue same treatment. Continue with symptomatic treatment. Resume home medication. Monitor labs and vitals. DVT and GI prophylaxis. Further recommendations as per clinical course of the patient Dictation was produced using [employer] dictation software. please excuse any grammatical, word or spelling errors. Objective - Vital Signs Vital signs: Vital Signs Temp 98 F 08/22/24 08:10 Pulse 72 08/22/24 13:17 Resp 18 08/22/24 08:10 BP 133/71 08/22/24 08:10 Pulse Ox 95 08/22/24 08:10 FiO2 Intake & Output 08/21/24 08/22/24 08/22/24 18:59 06:59 18:59 Intake Total 400 2190 Output Total 4400 Balance -4000 2190 Weight 57.606 kg Intake: Oral 2190 Hemodialysis 400 Output: Hemodialysis 2400 Hemodialysis Net Amount 2000 Other: Voiding Method Toilet Diaper # Voids 3 5 - Labs CBC & Chem 7: 08/20/24 03:18 08/20/24 02:48 Labs: Microbiology - Last 24 Hours (Table) 08/16/24 05:09 Blood Culture - Final Blood
--- NOTE | 2024-08-22 14:16 | P.PN ---
Subjective Progress Note Date: 08/22/24 Patient is an 79-year-old female with past medical history significant for mild intermittent asthma, end-stage renal disease on hemodialysis, polymyalgia rheumatica, hypothyroidism, cerebral aneurysm. Chief complaint is increase work of breathing over the last week. Also, endorses associated dry cough that is nonproductive. Tested positive for RSV as an outpatient. Patient does have history of mild intermittent bronchial asthma. Lifelong non-smoker. Follows in the pulmonary office with Dr. Roger. Directed to the emergency department yesterday evening. Workup in the emergency department including viral 4 Plex again positive for RSV. Chest x-ray shows chronic parenchymal changes without any focal infiltrates, pleural effusions, pneumothoraces. Right subclavian permacath. CBC: WBC count 7.4, hemoglobin 10.7, platelets 175. CMP: Sodium 135, potassium 3.6, chloride 95, serum bicarb 33, BUN 45, creatinine 2.3, glucose 113. Lactic 1.1. LFTs unremarkable. Patient currently be evaluated on the general medical floor. She is resting comfortably on 1 L/min nasal cannula. Expiratory wheezing and bronchospastic cough. No respiratory distress. States she originally tested positive for RSV at her PCPs office, Dr. Hogue, approximately 2 weeks ago. No improvement with supportive care including steroid burst taper and albuterol nebs. Continues to have shortness of breath with associated persistent dry non productive cough and wheezing. Chest discomfort, only with coughing fits. States she has Tessalon Perles at home, which helps with the cough. Fevers and chills have subsided. Tolerating oral intake including fluids and food. Previous episodes of diarrhea, which have sub sided. Current vital signs: Temperature 97.7 F, heart rate 64 bpm, blood pressure 133/81 mmHg, nontachypneic, SpO2 recorded at 94% on 1 L/min nasal cannula. 08/17/2024, the patient remains congested and wheezy and she is having also limited shortness of breath at rest. She has an acute RSV infection and the patient was seen in consultation yesterday. The patient has exacerbation of her chronic bronchial asthma related to RSV infection. The patient is currently on 2 L of oxygen by nasal cannula. No nausea vomiting or diarrhea. No new labs are available from today. No altered mentation. Remains on bronchodilators. Remains on IV Solu-Medrol 60 mg every 6 hours. Remains on Symbicort and Tessalon perles. On 08/18/2024, the patient is being seen for a follow-up. The patient is still c ongested bronchospastic and wheezy compared to yesterday. Resting comfortably in bed. She remains on 2 L of oxygen by nasal cannula with a pulse ox of 95%. The patient has end-stage renal disease on hemodialysis. Sodium is at 136 and potassium is at 3.4. The white cell count 13.6 with a hemoglobin of 9. The patient has an acute RSV infection. The patient remains on Symbicort and DuoNeb nebulizers [id number] and the patient is on IV Solu-Medrol. She is on Bumex 1 mg p.o. daily. No other nephrotoxic agents being administered at this point. The patient is seen today August 19, 2024 in follow-up on the regular medical floor. She is awake and alert in no acute distress. She is maintaining O2 saturations in the 90s on 2 L/min per nasal cannula. She remains afebrile. Hemodynamically stable. Blood culture reveals no growth. Sodium 136. Potassium 3.2. Bicarb 21. BUN 68. Creatinine 3.3. Glucose 161. She is continued on DuoNeb and elations, Symbicort, Solu-Medrol, Singulair. Remains on Tessalon Perles. Remains on oral diuretics. Heparin for DVT prophylaxis. The patient is seen today August 20, 2024 in follow-up on the regular medical floor. She remains awake and alert in no acute distress. Maintaining O2 saturations in the 90s on 2 L/min per nasal cannula. She is continued on DuoNeb inhalations, Symbicort, Solu-Medrol, Singulair. Heparin for DVT prophylaxis. Blood culture reveals no growth. White count 13.7. Hemoglobin 10.6. Platelets 137. Sodium 130. Potassium 3.8. Bicarb 24. BUN 31. Creatinine 1.57. The patient is seen today August 21, 2024 in follow-up on the regular medical floor. She is currently sitting up in bed. Awake and alert in no acute distress. Feeling nearly back to her baseline. Still somewhat bronchospastic and wheezing. She is due for hemodialysis today. Blood culture revealed no growth. No new labs today. She remains on DuoNeb and elations, Symbicort, Solu-Medrol and Singulair. Heparin for DVT prophylaxis. Tessalon Perles for her cough as needed. Patient is seen today August 22, 2024 in follow-up on the regular medical floor. She is awake and alert in no acute distress. Maintaining O2 saturations in the 90s on 2 L/min per nasal cannula. She has breathing easier today compared to yesterday. Less bronchospastic and wheezing. She is afebrile. Hemodynamically stable. Blood culture revealed no growth. No new labs today. She remains on DuoNeb and elations, Symbicort, Solu-Medrol, Singulair. She remains on Bumex. Heparin for DVT prophylaxis. Tessalon Perles for her cough. She remains on a Monday hemodialysis schedule. Objective - Vital Signs Vital signs: Vital Signs Temp 98 F 08/22/24 08:10 Pulse 72 08/22/24 13:17 Resp 18 08/22/24 08:10 BP 133/71 08/22/24 08:10 Pulse Ox 95 08/22/24 08:10 FiO2 Intake & Output 08/21/24 08/22/24 08/22/24 18:59 06:59 18:59 Intake Total 400 2190 Output Total 4400 Balance -4000 2190 Weight 57.606 kg Intake: Oral 2190 Hemodialysis 400 Output: Hemodialysis 2400 Hemodialysis Net Amount 2000 Other: Voiding Method Toilet Diaper # Voids 3 5 - Exam GENERAL EXAM: Alert, pleasant 79-year-old female, resting in bed, on 2 L nasal cannula, comfortable in no apparent distress. HEAD: Normocephalic. EYES: Normal reaction of pupils, equal size. NOSE: Clear with pink turbinates. THROAT: No erythema or exudates. NECK: No masses, no JVD. CHEST: No chest wall deformity. LUNGS: Equal air entry with few scattered rhonchi, end expiratory wheeze. CVS: S1 and S2 normal with no audible murmur, regular rhythm. ABDOMEN: No hepatosplenomegaly, normal bowel sounds, no guarding or rigidity. SPINE: No scoliosis or deformity SKIN: No rashes CENTRAL NERVOUS SYSTEM: No focal deficits, tone is normal in all 4 extremities. EXTREMITIES: There is no peripheral edema. No clubbing, no cyanosis. Peripheral pulses are intact. - Labs CBC & Chem 7: 08/20/24 03:18 08/20/24 02:48 Labs: Microbiology - Last 24 Hours (Table) 08/16/24 05:09 Blood Culture - Final Blood Assessment and Plan Assessment: Exacerbation of mild intermittent bronchial asthma, secondary to acute RSV bronchitis Acute RSV bronchitis Acute hypoxemic respiratory failure, currently on 2 L/min nasal cannula, secondary to above End-stage renal disease, maintained on hemodialysis with a Monday, Monday, Monday schedule Anemia of chronic disease History of nephrolithiasis and frequent urinary tract infections History of hypothyroidism history of polymyalgia rheumatica Lifelong non-smoker Plan: The patient was seen and evaluated Medications reviewed Stable and on 2 L nasal cannula Continue bronchodilators, steroids Heparin for DVT prophylaxis Remains on oral diuretics Plan is for hemodialysis tomorrow Plan is for [facility] at discharge I have personally seen and examined the patient, performed the documentation and the assessment and plan as written. Number of minutes spent on the visit: 10 Dictation was produced using [employer] dictation software. Please excuse any grammatical, word or spelling errors.
--- NOTE | 2024-08-22 17:08 | P.PN ---
Subjective Patient is seen for follow-up for end-stage renal disease. No significant complaints. Feeling much better today. Objective - Vital Signs Vital signs: Vital Signs Temp 98.1 F 08/22/24 14:24 Pulse 80 08/22/24 14:24 Resp 19 08/22/24 14:24 BP 108/63 08/22/24 14:24 Pulse Ox 92 L 08/22/24 14:24 FiO2 Intake & Output 08/21/24 08/22/24 08/22/24 18:59 06:59 18:59 Intake Total 400 2190 Output Total 4400 Balance -4000 2190 Weight 57.606 kg Intake: Oral 2190 Hemodialysis 400 Output: Hemodialysis 2400 Hemodialysis Net Amount 2000 Other: Voiding Method Toilet Diaper # Voids 3 5 - Exam Patient is awake, comfortable, no acute distress Alert oriented x 3 Examination lower extremity shows chronic edema, both legs are wrapped ACTIVITIES ASSISTANT exam grossly intact - Labs CBC & Chem 7: 08/20/24 03:18 08/20/24 02:48 Assessment and Plan Assessment: 1. End-stage renal disease maintained on hemodialysis on Monday schedule. Has permacath. She has a thrombosed AV graft. 2. Acute RSV pneumonia. 3. Chronic kidney disease mineral bone disease. On PhosLo. 4. Acute COPD exacerbation. 5. Hypokalemia from diuresis. 6. Anemia of chronic kidney disease. Plan: Hemodialysis in a.m.
[2024-08-22] MEDS: methylPREDNISolone SOD SUCCI 40 MG/ML 1 ML VIAL IV SCH (19:52)
[2024-08-23] MEDS ORDERED: HEPARIN SODIUM 1,000 UN/ML (10ML VL) ONE (08:54)
[2024-08-23 10:37] LABS: Glucose,Whole Blood 98 mg/dL (70-110)
--- NOTE | 2024-08-23 13:07 | XR ---
EXAMINATION TYPE: XR chest 1V portable DATE OF EXAM: 08/23/2024 1:03 PM COMPARISON: 08/15/2024 CLINICAL INDICATION: Female, 79 years old with history of Dyspnea, TECHNIQUE: XR chest 1V portable views of the chest are obtained. FINDINGS: Demonstrated are scattered senescent parenchymal change. There is no evidence for focal infiltrate. The heart is stable. Hilar and mediastinal structures are within normal limits. Degenerative changes are seen of the dorsal spine. IMPRESSION: 1. Chronic changes without evidence for acute pulmonary disease. [facility], , 08/23/2024 1:04 PM
--- NOTE | 2024-08-23 13:09 | P.PN ---
Subjective Progress Note Date: 08/23/24 79-year-old female present to the emergency department with concerns with difficulty breathing. Symptoms have been occurring over the past 7 to 10 days. Patient does have cough, dry nonproductive. Patient was diagnosed with RSV as an outpatient. Patient does have history of asthma. Patient has been on 2 different antibiotics without improvement of symptoms. Patient called Dr. Roger and was advised to come to the emergency department. States she originally tested positive for RSV at her PCPs office, Dr. Hogue, approximately 2 weeks ago. Chest x-ray shows chronic parenchymal changes without any focal infiltrates, pleural effusions, pneumothoraces. Right subclavian permacath. CBC: WBC count 7.4, hemoglobin 10.7, platelets 175. CMP: Sodium 135, potassium 3.6, chloride 95, serum bicarb 33, BUN 45, creatinine 2.3, glucose 113. Lactic 1.1. LFTs unremarkable. 08/18/2024 - the patient is seen and evaluated in room 4 follow-up. The patient is still congested bronchospastic and wheezy compared to yesterday. - She remains on 2 L of oxygen by nasal cannula with a pulse ox of 95%. The patient has end-stage renal disease on hemodialysis. Blood work reveals sodium is at 136 and potassium is at 3.4. The white cell count 13.6 with a hemoglobin of 9. - The patient has an acute RSV infection. The patient remains on Symbicort and DuoNeb nebulizers [id number] and the patient is on IV Solu-Medrol. She is on Bumex 1 mg p.o. daily. No other nephrotoxic agents being administered at this point. -Pulmonary on board and recommending to continue with DuoNeb nebulizer treatments, IV Solu-Medrol and Symbicort; symptomatic treatment with antitussives and Tylenol 08/19 Patient still has extensive wheezing Patient is on 2.5 L oxygen via nasal cannula Low potassium has been replaced. Creatinine increased to 3.3. Patient is a known case of End-stage renal disease on hemodialysis She is positive for RSV virus been treated symptomatically on steroids Patient is requesting Ultram for pain she states she take it at home 08/20. Patient seen and examined. Blood work this morning showed WBC 13.78, hemoglobin 10.6, platelet count 137,. Currently on 2 L of oxygen. Complaining of worsening congestion and shortness of breath /. Patient seen and examined complaining of lethargic and weakness. Patient was undergoing dialysis today. Patient wants to talk to case management about possible rehab 08/22. Patient seen and examined. Breathing is improved, states congestion has improved and she is able to bring up phlegm. Waiting on rehab placement 08/23. Patient seen and examined. Currently on 2 L of oxygen. Complaining of cough. Gets short of breath on exertion. Patient getting dialysis today, repeat chest x-ray ordered REVIEW OF SYSTEMS: CONSTITUTIONAL: No fever, no malaise,. CARDIOVASCULAR: No chest pain, no palpitations, no syncope. PULMONARY: As mentioned above GASTROINTESTINAL: No diarrhea, no nausea, no vomiting, no abdominal pain. NEUROLOGICAL: No headaches, no weakness, PHYSICAL EXAMINATION: GENERAL: The patient is alert and oriented x3, ill looking HEENT: Pupils are round and equally reacting to light. EOMI. No scleral icterus. No conjunctival pallor. Normocephalic, atraumatic. No pharyngeal erythema. No thyromegaly. CARDIOVASCULAR: S1 and S2 present. No murmurs, rubs, or gallops. PULMONARY: Coarse breath sound bilaterally, rhonchi audible, no wheezing or crackles. ABDOMEN: Soft, nontender, nondistended, normoactive bowel sounds. No palpable organomegaly. MUSCULOSKELETAL: No joint swelling or deformity. EXTREMITIES: No cyanosis, clubbing, or pedal edema. NEUROLOGICAL: Gross neurological examination did not reveal any focal deficits. SKIN: No rashes. Assessment and plan 1. Acute exacerbation COPD/asthma; 2. Acute hypoxic respiratory failure; 3. End-stage renal disease/HD; 4. Nephrolithiasis with frequent UTIs; 5. Hypothyroidism; 6. Anemia of chronic disease; 7. History of pulmonary nodule; Monitor vital signs Monitor CBC Monitor CMP Continue telemetry monitoring Continue oxygen supplementation Continue breathing treatment Continue Tessalon Perles Continue Singulair continue IV Solu-Medrol Continue dialysis per nephrology Chest x-ray ordered Pulmonology following PT and OT recommend rehab Labs and medication were reviewed.. Continue same treatment. Continue with symptomatic treatment. Resume home medication. Monitor labs and vitals. DVT and GI prophylaxis. Further recommendations as per clinical course of the patient Dictation was produced using [employer] software. please excuse any grammatical, word or spelling errors. Objective - Vital Signs Vital signs: Vital Signs Temp 98.6 F 08/23/24 00:14 Pulse 68 08/23/24 08:25 Resp 16 08/23/24 00:14 BP 121/73 08/23/24 00:14 Pulse Ox 95 08/23/24 00:14 FiO2 Intake & Output 08/22/24 08/23/24 08/23/24 18:59 06:59 18:59 Intake Total 640 Balance 640 Weight 57.606 kg Intake: Oral 640 Other: # Voids 2 1 # Bowel Movements 1 - Labs CBC & Chem 7: 08/20/24 03:18 08/20/24 02:48
--- NOTE | 2024-08-23 14:59 | P.PN ---
Subjective Progress Note Date: 08/23/24 Patient is an 79-year-old female with past medical history significant for mild intermittent asthma, end-stage renal disease on hemodialysis, polymyalgia rheumatica, hypothyroidism, cerebral aneurysm. Chief complaint is increase work of breathing over the last week. Also, endorses associated dry cough that is nonproductive. Tested positive for RSV as an outpatient. Patient does have history of mild intermittent bronchial asthma. Lifelong non-smoker. Follows in the pulmonary office with Dr. Roger. Directed to the emergency department yesterday evening. Workup in the emergency department including viral 4 Plex again positive for RSV. Chest x-ray shows chronic parenchymal changes without any focal infiltrates, pleural effusions, pneumothoraces. Right subclavian permacath. CBC: WBC count 7.4, hemoglobin 10.7, platelets 175. CMP: Sodium 135, potassium 3.6, chloride 95, serum bicarb 33, BUN 45, creatinine 2.3, glucose 113. Lactic 1.1. LFTs unremarkable. Patient currently be evaluated on the general medical floor. She is resting comfortably on 1 L/min nasal cannula. Expiratory wheezing and bronchospastic cough. No respiratory distress. States she originally tested positive for RSV at her PCPs office, Dr. Hogue, approximately 2 weeks ago. No improvement with supportive care including steroid burst taper and albuterol nebs. Continues to have shortness of breath with associated persistent dry non productive cough and wheezing. Chest discomfort, only with coughing fits. States she has Tessalon Perles at home, which helps with the cough. Fevers and chills have subsided. Tolerating oral intake including fluids and food. Previous episodes of diarrhea, which have sub sided. Current vital signs: Temperature 97.7 F, heart rate 64 bpm, blood pressure 133/81 mmHg, nontachypneic, SpO2 recorded at 94% on 1 L/min nasal cannula. 08/17/2024, the patient remains congested and wheezy and she is having also limited shortness of breath at rest. She has an acute RSV infection and the patient was seen in consultation yesterday. The patient has exacerbation of her chronic bronchial asthma related to RSV infection. The patient is currently on 2 L of oxygen by nasal cannula. No nausea vomiting or diarrhea. No new labs are available from today. No altered mentation. Remains on bronchodilators. Remains on IV Solu-Medrol 60 mg every 6 hours. Remains on Symbicort and Tessalon perles. On 08/18/2024, the patient is being seen for a follow-up. The patient is still c ongested bronchospastic and wheezy compared to yesterday. Resting comfortably in bed. She remains on 2 L of oxygen by nasal cannula with a pulse ox of 95%. The patient has end-stage renal disease on hemodialysis. Sodium is at 136 and potassium is at 3.4. The white cell count 13.6 with a hemoglobin of 9. The patient has an acute RSV infection. The patient remains on Symbicort and DuoNeb nebulizers [id number] and the patient is on IV Solu-Medrol. She is on Bumex 1 mg p.o. daily. No other nephrotoxic agents being administered at this point. The patient is seen today August 19, 2024 in follow-up on the regular medical floor. She is awake and alert in no acute distress. She is maintaining O2 saturations in the 90s on 2 L/min per nasal cannula. She remains afebrile. Hemodynamically stable. Blood culture reveals no growth. Sodium 136. Potassium 3.2. Bicarb 21. BUN 68. Creatinine 3.3. Glucose 161. She is continued on DuoNeb and elations, Symbicort, Solu-Medrol, Singulair. Remains on Tessalon Perles. Remains on oral diuretics. Heparin for DVT prophylaxis. The patient is seen today August 20, 2024 in follow-up on the regular medical floor. She remains awake and alert in no acute distress. Maintaining O2 saturations in the 90s on 2 L/min per nasal cannula. She is continued on DuoNeb inhalations, Symbicort, Solu-Medrol, Singulair. Heparin for DVT prophylaxis. Blood culture reveals no growth. White count 13.7. Hemoglobin 10.6. Platelets 137. Sodium 130. Potassium 3.8. Bicarb 24. BUN 31. Creatinine 1.57. The patient is seen today August 21, 2024 in follow-up on the regular medical floor. She is currently sitting up in bed. Awake and alert in no acute distress. Feeling nearly back to her baseline. Still somewhat bronchospastic and wheezing. She is due for hemodialysis today. Blood culture revealed no growth. No new labs today. She remains on DuoNeb and elations, Symbicort, Solu-Medrol and Singulair. Heparin for DVT prophylaxis. Tessalon Perles for her cough as needed. Patient is seen today August 22, 2024 in follow-up on the regular medical floor. She is awake and alert in no acute distress. Maintaining O2 saturations in the 90s on 2 L/min per nasal cannula. She has breathing easier today compared to yesterday. Less bronchospastic and wheezing. She is afebrile. Hemodynamically stable. Blood culture revealed no growth. No new labs today. She remains on DuoNeb and elations, Symbicort, Solu-Medrol, Singulair. She remains on Bumex. Heparin for DVT prophylaxis. Tessalon Perles for her cough. She remains on a Monday hemodialysis schedule. The patient is seen today August 23, 2024 in follow-up on the regular medical floor. He is currently resting comfortably in bed. Awake and alert in no acute distress. Maintaining O2 saturations in the 90s on 3 L/min per nasal cannula. She has been afebrile. Hemodynamically stable. Receiving hemodialysis today. Follow-up chest x-ray reveals chronic changes without evidence for acute pulmonary disease. Blood culture revealed no growth. Glucose 98. She remains on DuoNeb inhalations, Singulair, Symbicort, Solu-Medrol. Remains on oral diuretics. Heparin for DVT prophylaxis. Objective - Vital Signs Vital signs: Vital Signs Temp 97.3 F L 08/23/24 13:08 Pulse 72 08/23/24 13:08 Resp 22 08/23/24 13:08 BP 124/68 08/23/24 13:08 Pulse Ox 98 08/23/24 08:29 FiO2 Intake & Output 08/22/24 08/23/24 08/23/24 18:59 06:59 18:59 Intake Total 640 500 Output Total 4500 Balance 640 -4000 Weight 57.606 kg Intake: Oral 640 Hemodialysis 500 Output: Hemodialysis 2500 Hemodialysis Net Amount 2000 Other: # Voids 2 1 2 # Bowel Movements 1 - Exam GENERAL EXAM: Alert, 79-year-old female, resting in bed, receiving hemodialysis, on 2 L nasal cannula, in no apparent distress. HEAD: Normocephalic. EYES: Normal reaction of pupils, equal size. NOSE: Clear with pink turbinates. THROAT: No erythema or exudates. NECK: No masses, no JVD. CHEST: No chest wall deformity. LUNGS: Equal air entry with few scattered rhonchi, end expiratory wheeze. CVS: S1 and S2 normal with no audible murmur, regular rhythm. ABDOMEN: No hepatosplenomegaly, normal bowel sounds, no guarding or rigidity. SPINE: No scoliosis or deformity SKIN: No rashes CENTRAL NERVOUS SYSTEM: No focal deficits, tone is normal in all 4 extremities. EXTREMITIES: There is no peripheral edema. No clubbing, no cyanosis. Peripheral pulses are intact. - Labs CBC & Chem 7: 08/20/24 03:18 08/20/24 02:48 Assessment and Plan Assessment: Exacerbation of mild intermittent bronchial asthma, secondary to acute RSV bro nchitis Acute RSV bronchitis Acute hypoxemic respiratory failure, currently on 2 L/min nasal cannula, secondary to above End-stage renal disease, maintained on hemodialysis with a Monday, Monday, Monday schedule Anemia of chronic disease History of nephrolithiasis and frequent urinary tract infections History of hypothyroidism history of polymyalgia rheumatica Lifelong non-smoker Plan: The patient was seen and evaluated Chest x-ray, labs medications reviewed Chest x-ray reveals no acute process Stable and on 2 L nasal cannula Continue bronchodilators, steroids Heparin for DVT prophylaxis Remains on oral diuretics Receiving hemodialysis today Plan is for [facility] at discharge I have personally seen and examined the patient, performed the documentation and the assessment and plan as written. Number of minutes spent on the visit: 10 Dictation was produced using [employer] dictation software. Please excuse any grammatical, word or spelling errors.
--- NOTE | 2024-08-23 19:13 | P.PN ---
Subjective Patient is seen for follow-up for end-stage renal disease. No significant complaints. Patient is seen on hemodialysis. Tolerated treatment well. Feeling much better today. Objective - Vital Signs Vital signs: Vital Signs Temp 98.2 F 08/23/24 17:09 Pulse 82 08/23/24 17:09 Resp 20 08/23/24 17:09 BP 143/72 08/23/24 17:09 Pulse Ox 91 L 08/23/24 17:09 FiO2 Intake & Output 08/23/24 08/23/24 08/24/24 06:59 18:59 06:59 Intake Total 500 Output Total 4500 Balance -4000 Intake: Hemodialysis 500 Output: Hemodialysis 2500 Hemodialysis Net Amount 2000 Other: # Voids 1 2 - Exam Patient is awake, comfortable, no acute distress Alert oriented x 3 Examination lower extremity shows chronic edema, both legs are wrapped CAMP GUARD exam grossly intact - Labs CBC & Chem 7: 08/20/24 03:18 08/20/24 02:48 Assessment and Plan Assessment: 1. End-stage renal disease maintained on hemodialysis on Monday schedule. Has permacath. She has a thrombosed AV graft. 2. Acute RSV pneumonia. 3. Chronic kidney disease mineral bone disease. On PhosLo. 4. Acute COPD exacerbation. 5. Hypokalemia from diuresis. 6. Anemia of chronic kidney disease. Plan: Hemodialysis today with UF of 2 to 2.5 L as tolerated.
--- NOTE | 2024-08-24 10:57 | P.PN ---
Subjective Progress Note Date: 08/24/24 Patient is an 79-year-old female with past medical history significant for mild intermittent asthma, end-stage renal disease on hemodialysis, polymyalgia rheumatica, hypothyroidism, cerebral aneurysm. Chief complaint is increase work of breathing over the last week. Also, endorses associated dry cough that is nonproductive. Tested positive for RSV as an outpatient. Patient does have history of mild intermittent bronchial asthma. Lifelong non-smoker. Follows in the pulmonary office with Dr. Roger. Directed to the emergency department yesterday evening. Workup in the emergency department including viral 4 Plex again positive for RSV. Chest x-ray shows chronic parenchymal changes without any focal infiltrates, pleural effusions, pneumothoraces. Right subclavian permacath. CBC: WBC count 7.4, hemoglobin 10.7, platelets 175. CMP: Sodium 135, potassium 3.6, chloride 95, serum bicarb 33, BUN 45, creatinine 2.3, glucose 113. Lactic 1.1. LFTs unremarkable. Patient currently be evaluated on the general medical floor. She is resting comfortably on 1 L/min nasal cannula. Expiratory wheezing and bronchospastic cough. No respiratory distress. States she originally tested positive for RSV at her PCPs office, Dr. Hogue, approximately 2 weeks ago. No improvement with supportive care including steroid burst taper and albuterol nebs. Continues to have shortness of breath with associated persistent dry non productive cough and wheezing. Chest discomfort, only with coughing fits. States she has Tessalon Perles at home, which helps with the cough. Fevers and chills have subsided. Tolerating oral intake including fluids and food. Previous episodes of diarrhea, which have sub sided. Current vital signs: Temperature 97.7 F, heart rate 64 bpm, blood pressure 133/81 mmHg, nontachypneic, SpO2 recorded at 94% on 1 L/min nasal cannula. 08/17/2024, the patient remains congested and wheezy and she is having also limited shortness of breath at rest. She has an acute RSV infection and the patient was seen in consultation yesterday. The patient has exacerbation of her chronic bronchial asthma related to RSV infection. The patient is currently on 2 L of oxygen by nasal cannula. No nausea vomiting or diarrhea. No new labs are available from today. No altered mentation. Remains on bronchodilators. Remains on IV Solu-Medrol 60 mg every 6 hours. Remains on Symbicort and Tessalon perles. On 08/18/2024, the patient is being seen for a follow-up. The patient is still c ongested bronchospastic and wheezy compared to yesterday. Resting comfortably in bed. She remains on 2 L of oxygen by nasal cannula with a pulse ox of 95%. The patient has end-stage renal disease on hemodialysis. Sodium is at 136 and potassium is at 3.4. The white cell count 13.6 with a hemoglobin of 9. The patient has an acute RSV infection. The patient remains on Symbicort and DuoNeb nebulizers [id number] and the patient is on IV Solu-Medrol. She is on Bumex 1 mg p.o. daily. No other nephrotoxic agents being administered at this point. The patient is seen today August 19, 2024 in follow-up on the regular medical floor. She is awake and alert in no acute distress. She is maintaining O2 saturations in the 90s on 2 L/min per nasal cannula. She remains afebrile. Hemodynamically stable. Blood culture reveals no growth. Sodium 136. Potassium 3.2. Bicarb 21. BUN 68. Creatinine 3.3. Glucose 161. She is continued on DuoNeb and elations, Symbicort, Solu-Medrol, Singulair. Remains on Tessalon Perles. Remains on oral diuretics. Heparin for DVT prophylaxis. The patient is seen today August 20, 2024 in follow-up on the regular medical floor. She remains awake and alert in no acute distress. Maintaining O2 saturations in the 90s on 2 L/min per nasal cannula. She is continued on DuoNeb inhalations, Symbicort, Solu-Medrol, Singulair. Heparin for DVT prophylaxis. Blood culture reveals no growth. White count 13.7. Hemoglobin 10.6. Platelets 137. Sodium 130. Potassium 3.8. Bicarb 24. BUN 31. Creatinine 1.57. The patient is seen today August 21, 2024 in follow-up on the regular medical floor. She is currently sitting up in bed. Awake and alert in no acute distress. Feeling nearly back to her baseline. Still somewhat bronchospastic and wheezing. She is due for hemodialysis today. Blood culture revealed no growth. No new labs today. She remains on DuoNeb and elations, Symbicort, Solu-Medrol and Singulair. Heparin for DVT prophylaxis. Tessalon Perles for her cough as needed. Patient is seen today August 22, 2024 in follow-up on the regular medical floor. She is awake and alert in no acute distress. Maintaining O2 saturations in the 90s on 2 L/min per nasal cannula. She has breathing easier today compared to yesterday. Less bronchospastic and wheezing. She is afebrile. Hemodynamically stable. Blood culture revealed no growth. No new labs today. She remains on DuoNeb and elations, Symbicort, Solu-Medrol, Singulair. She remains on Bumex. Heparin for DVT prophylaxis. Tessalon Perles for her cough. She remains on a Monday hemodialysis schedule. The patient is seen today August 23, 2024 in follow-up on the regular medical floor. He is currently resting comfortably in bed. Awake and alert in no acute distress. Maintaining O2 saturations in the 90s on 3 L/min per nasal cannula. She has been afebrile. Hemodynamically stable. Receiving hemodialysis today. Follow-up chest x-ray reveals chronic changes without evidence for acute pulmonary disease. Blood culture revealed no growth. Glucose 98. She remains on DuoNeb inhalations, Singulair, Symbicort, Solu-Medrol. Remains on oral diuretics. Heparin for DVT prophylaxis. The patient is seen today August 24, 2024 in follow-up on the regular medical floor. She is awake and alert in no acute distress. Feeling better today compared to yesterday. Resting comfortably in bed. She did have hemodialysis yesterday with 2 L removed. She is maintaining good O2 saturations in the upper 90s on 2 L nasal cannula. She is afebrile. Hemodynamically stable. Chest x- ray reveals chronic changes without evidence of acute pulmonary disease. Blood culture revealed no growth. No new labs today. Continued on DuoNeb inhalations, Symbicort, Solu-Medrol, Singulair. Heparin for DVT prophylaxis. Remains on oral diuretics. Objective - Vital Signs Vital signs: Vital Signs Temp 98.0 F 08/24/24 08:34 Pulse 80 08/24/24 08:58 Resp 19 08/24/24 08:34 BP 118/76 08/24/24 08:34 Pulse Ox 97 08/24/24 08:34 FiO2 Intake & Output 08/23/24 08/24/24 08/24/24 18:59 06:59 18:59 Intake Total 500 1080 Output Total 4500 Balance -4000 1080 Intake: Oral 1080 Hemodialysis 500 Output: Hemodialysis 2500 Hemodialysis Net Amount 2000 Other: Voiding Method Toilet # Voids 2 6 - Exam GENERAL EXAM: Alert, oriented, pleasant 79-year-old female, resting in bed, on 2 L nasal cannula, in no apparent distress. HEAD: Normocephalic. EYES: Normal reaction of pupils, equal size. NOSE: Clear with pink turbinates. THROAT: No erythema or exudates. NECK: No masses, no JVD. CHEST: No chest wall deformity. LUNGS: Equal air entry with few scattered rhonchi, end expiratory wheeze. CVS: S1 and S2 normal with no audible murmur, regular rhythm. ABDOMEN: No hepatosplenomegaly, normal bowel sounds, no guarding or rigidity. SPINE: No scoliosis or deformity SKIN: No rashes CENTRAL NERVOUS SYSTEM: No focal deficits, tone is normal in all 4 extremities. EXTREMITIES: There is no peripheral edema. No clubbing, no cyanosis. Peripheral pulses are intact. - Labs CBC & Chem 7: 08/20/24 03:18 08/20/24 02:48 Assessment and Plan Assessment: Acute exacerbation of mild intermittent bronchial asthma, secondary to acute RSV bronchitis Acute RSV bronchitis Acute hypoxemic respiratory failure, currently on 2 L/min nasal cannula, secondary to above End-stage renal disease, maintained on hemodialysis with a Monday, Monday, Monday schedule Anemia of chronic disease History of nephrolithiasis and frequent urinary tract infections History of hypothyroidism History of polymyalgia rheumatica Lifelong non-smoker Plan: The patient was seen and evaluated Labs medications reviewed Stable and on 2 L nasal cannula Continue bronchodilators, steroids Heparin for DVT prophylaxis Remains on oral diuretics Plan is for [facility] at discharge I have personally seen and examined the patient, performed the documentation and the assessment and plan as written. Number of minutes spent on the visit: 10 Dictation was produced using [employer] dictation software. Please excuse any grammatical, word or spelling errors.
--- NOTE | 2024-08-24 12:04 | P.PN ---
Subjective Patient is seen for follow-up for end-stage renal disease. No significant complaints. Status post hemodialysis yesterday with UF of 2 L. Objective - Vital Signs Vital signs: Vital Signs Temp 98.0 F 08/24/24 08:34 Pulse 80 08/24/24 08:58 Resp 20 08/24/24 11:17 BP 118/76 08/24/24 08:34 Pulse Ox 97 08/24/24 08:34 FiO2 Intake & Output 08/23/24 08/24/24 08/24/24 18:59 06:59 18:59 Intake Total 500 1080 Output Total 4500 Balance -4000 1080 Intake: Oral 1080 Hemodialysis 500 Output: Hemodialysis 2500 Hemodialysis Net Amount 2000 Other: Voiding Method Toilet Toilet # Voids 2 6 - Exam Patient is awake, comfortable, no acute distress Alert oriented x 3 Examination of the heart S1 and S2 Examination of the lungs bilateral breath sounds are heard Abdomen is soft nontender Examination lower extremity shows chronic edema, both legs are wrapped SAFEMAKER exam grossly intact - Labs CBC & Chem 7: 08/20/24 03:18 08/20/24 02:48 Assessment and Plan Assessment: 1. End-stage renal disease maintained on hemodialysis on Monday schedule. Has permacath. She has a thrombosed AV graft. 2. Acute RSV pneumonia. 3. Chronic kidney disease mineral bone disease. On PhosLo. 4. Acute COPD exacerbation. 5. Hypokalemia from diuresis. 6. Anemia of chronic kidney disease. Plan: Hemodialysis on Monday schedule
--- NOTE | 2024-08-24 12:05 | P.PN ---
Subjective 79-year-old female present to the emergency department with concerns with difficulty breathing. Symptoms have been occurring over the past 7 to 10 days. Patient does have cough, dry nonproductive. Patient was diagnosed with RSV as an outpatient. Patient does have history of asthma. Patient has been on 2 different antibiotics without improvement of symptoms. Patient called Dr. Roger and was advised to come to the emergency department. States she originally tested positive for RSV at her PCPs office, Dr. Hogue, approximately 2 weeks ago. Chest x-ray shows chronic parenchymal changes without any focal infiltrates, pleural effusions, pneumothoraces. Right subclavian permacath. CBC: WBC count 7.4, hemoglobin 10.7, platelets 175. CMP: Sodium 135, potassium 3.6, chloride 95, serum bicarb 33, BUN 45, creatinine 2.3, glucose 113. Lactic 1.1. LFTs unremarkable. 08/18/2024 - the patient is seen and evaluated in room 4 follow-up. The patient is still congested bronchospastic and wheezy compared to yesterday. - She remains on 2 L of oxygen by nasal cannula with a pulse ox of 95%. The patient has end-stage renal disease on hemodialysis. Blood work reveals sodium is at 136 and potassium is at 3.4. The white cell count 13.6 with a hemoglobin of 9. - The patient has an acute RSV infection. The patient remains on Symbicort and DuoNeb nebulizers [id number] and the patient is on IV Solu-Medrol. She is on Bumex 1 mg p.o. daily. No other nephrotoxic agents being administered at this point. -Pulmonary on board and recommending to continue with DuoNeb nebulizer treatments, IV Solu-Medrol and Symbicort; symptomatic treatment with antitussives and Tylenol 08/19 Patient still has extensive wheezing Patient is on 2.5 L oxygen via nasal cannula Low potassium has been replaced. Creatinine increased to 3.3. Patient is a known case of End-stage renal disease on hemodialysis She is positive for RSV virus been treated symptomatically on steroids Patient is requesting Ultram for pain she states she take it at home 08/20. Patient seen and examined. Blood work this morning showed WBC 13.78, hemoglobin 10.6, platelet count 137,. Currently on 2 L of oxygen. Complaining of worsening congestion and shortness of breath /19. Patient seen and examined complaining of lethargic and weakness. Patient was undergoing dialysis today. Patient wants to talk to case management about possible rehab 08/22. Patient seen and examined. Breathing is improved, states congestion has improved and she is able to bring up phlegm. Waiting on rehab placement 08/23. Patient seen and examined. Currently on 2 L of oxygen. Complaining of cough. Gets short of breath on exertion. Patient getting dialysis today, repeat chest x-ray ordered REVIEW OF SYSTEMS: CONSTITUTIONAL: No fever, no malaise,. CARDIOVASCULAR: No chest pain, no palpitations, no syncope. PULMONARY: As mentioned above GASTROINTESTINAL: No diarrhea, no nausea, no vomiting, no abdominal pain. NEUROLOGICAL: No headaches, no weakness, 08/24 Patient states that shortness of breath is improving but not back to baseline She still have some coarse crepitation and wheezing on examination She still feels generally weak Patient currently kept on IV Solu-Medrol We will continue monitoring patient will benefit from ECF upon discharge for rehab, also as per PT/OT evaluation Objective - Vital Signs Vital signs: Vital Signs Temp 98.0 F 08/24/24 08:34 Pulse 80 08/24/24 08:58 Resp 20 08/24/24 11:17 BP 118/76 08/24/24 08:34 Pulse Ox 97 08/24/24 08:34 FiO2 Intake & Output 08/23/24 08/24/24 08/24/24 18:59 06:59 18:59 Intake Total 500 1080 Output Total 4500 Balance -4000 1080 Intake: Oral 1080 Hemodialysis 500 Output: Hemodialysis 2500 Hemodialysis Net Amount 2000 Other: Voiding Method Toilet Toilet # Voids 2 6 - Exam GENERAL: The patient is alert and oriented x3, not in any acute distress. Well developed, well nourished. HEENT: Pupils are round and equally reacting to light. EOMI. No scleral icterus. No conjunctival pallor. Normocephalic, atraumatic. No pharyngeal erythema. No thyromegaly. CARDIOVASCULAR: S1 and S2 present. No murmurs, rubs, or gallops. -PULMONARY: Chest is clear to auscultation, bilateral extensive wheezing , no crackles. ABDOMEN: Soft, nontender, nondistended, normoactive bowel sounds. No palpable organomegaly. MUSCULOSKELETAL: No joint swelling or deformity. EXTREMITIES: No cyanosis, clubbing, or pedal edema. NEUROLOGICAL: Gross neurological examination did not reveal any focal deficits. SKIN: No rashes. no petechiae. - Labs CBC & Chem 7: 08/20/24 03:18 08/20/24 02:48 Assessment and Plan Assessment: 1. Acute exacerbation COPD/asthma; secondary to acute RSV bronchitis -Chest x-ray is negative for any acute pulmonary process -Patient has been placed on IV Solu-Medrol; DuoNeb nebulizer treatments 4 times daily and as needed; Singulair 10 mg nightly -Patient has been evaluated by pulmonary and is recommended initiating Symbicort inhaler -Patient currently off antibiotic, she is on Bumex once daily 2. Acute hypoxic respiratory failure; related to acute exacerbation asthma/COPD related to acute RSV bronchitis -We will continue with O2 per nasal cannula and titrate/wean as needed 3. End-stage renal disease/HD; patient has hemodialysis schedule of Monday, Monday and Monday -PhosLo 667 mg 4 times daily as needed -Nephrology is consulted 4. Nephrolithiasis with frequent UTIs; outpatient urology follow-up 5. Hypothyroidism; levothyroxine 150 mcg daily 6. Anemia of chronic disease; hemoglobin at baseline at 10.7 7. History of pulmonary nodule; follow-up with pulmonary as outpatient GI prophylaxis: Protonix DVT PPx; SCDs/subcu heparin CODE STATUS; full code
--- NOTE | 2024-08-25 11:24 | P.PN ---
Subjective 79-year-old female present to the emergency department with concerns with difficulty breathing. Symptoms have been occurring over the past 7 to 10 days. Patient does have cough, dry nonproductive. Patient was diagnosed with RSV as an outpatient. Patient does have history of asthma. Patient has been on 2 different antibiotics without improvement of symptoms. Patient called Dr. Roger and was advised to come to the emergency department. States she originally tested positive for RSV at her PCPs office, Dr. Hogue, approximately 2 weeks ago. Chest x-ray shows chronic parenchymal changes without any focal infiltrates, pleural effusions, pneumothoraces. Right subclavian permacath. CBC: WBC count 7.4, hemoglobin 10.7, platelets 175. CMP: Sodium 135, potassium 3.6, chloride 95, serum bicarb 33, BUN 45, creatinine 2.3, glucose 113. Lactic 1.1. LFTs unremarkable. 08/18/2024 - the patient is seen and evaluated in room 4 follow-up. The patient is still congested bronchospastic and wheezy compared to yesterday. - She remains on 2 L of oxygen by nasal cannula with a pulse ox of 95%. The patient has end-stage renal disease on hemodialysis. Blood work reveals sodium is at 136 and potassium is at 3.4. The white cell count 13.6 with a hemoglobin of 9. - The patient has an acute RSV infection. The patient remains on Symbicort and DuoNeb nebulizers [id number] and the patient is on IV Solu-Medrol. She is on Bumex 1 mg p.o. daily. No other nephrotoxic agents being administered at this point. -Pulmonary on board and recommending to continue with DuoNeb nebulizer treatments, IV Solu-Medrol and Symbicort; symptomatic treatment with antitussives and Tylenol 08/19 Patient still has extensive wheezing Patient is on 2.5 L oxygen via nasal cannula Low potassium has been replaced. Creatinine increased to 3.3. Patient is a known case of End-stage renal disease on hemodialysis She is positive for RSV virus been treated symptomatically on steroids Patient is requesting Ultram for pain she states she take it at home 08/20. Patient seen and examined. Blood work this morning showed WBC 13.78, hemoglobin 10.6, platelet count 137,. Currently on 2 L of oxygen. Complaining of worsening congestion and shortness of breath /19. Patient seen and examined complaining of lethargic and weakness. Patient was undergoing dialysis today. Patient wants to talk to case management about possible rehab 08/22. Patient seen and examined. Breathing is improved, states congestion has improved and she is able to bring up phlegm. Waiting on rehab placement 08/23. Patient seen and examined. Currently on 2 L of oxygen. Complaining of cough. Gets short of breath on exertion. Patient getting dialysis today, repeat chest x-ray ordered REVIEW OF SYSTEMS: CONSTITUTIONAL: No fever, no malaise,. CARDIOVASCULAR: No chest pain, no palpitations, no syncope. PULMONARY: As mentioned above GASTROINTESTINAL: No diarrhea, no nausea, no vomiting, no abdominal pain. NEUROLOGICAL: No headaches, no weakness, 08/24 Patient states that shortness of breath is improving but not back to baseline She still have some coarse crepitation and wheezing on examination She still feels generally weak Patient currently kept on IV Solu-Medrol We will continue monitoring patient will benefit from ECF upon discharge for rehab, also as per PT/OT evaluation 08/25 Patient improving slowly and gradually She still has wheezing Will check labs today Patient on IV Solu-Medrol 40 mg twice daily Possible discharge in 24 to 48 hours if she keeps improving Objective - Vital Signs Vital signs: Vital Signs Temp 97.6 F 08/25/24 07:58 Pulse 92 08/25/24 09:24 Resp 16 08/25/24 11:08 BP 128/70 08/25/24 07:58 Pulse Ox 99 08/25/24 07:58 FiO2 Intake & Output 08/24/24 08/25/24 08/25/24 18:59 06:59 18:59 Intake Total 250 1080 Balance 250 1080 Intake: Oral 250 1080 Other: Voiding Method Toilet Toilet Toilet # Voids 1 5 # Bowel Movements 2 - Exam GENERAL: The patient is alert and oriented x3, not in any acute distress. Well developed, well nourished. HEENT: Pupils are round and equally reacting to light. EOMI. No scleral icterus. No conjunctival pallor. Normocephalic, atraumatic. No pharyngeal erythema. No thyromegaly. CARDIOVASCULAR: S1 and S2 present. No murmurs, rubs, or gallops. -PULMONARY: Chest is clear to auscultation, bilateral extensive wheezing , no crackles. ABDOMEN: Soft, nontender, nondistended, normoactive bowel sounds. No palpable organomegaly. MUSCULOSKELETAL: No joint swelling or deformity. EXTREMITIES: No cyanosis, clubbing, or pedal edema. NEUROLOGICAL: Gross neurological examination did not reveal any focal deficits. SKIN: No rashes. no petechiae. - Labs CBC & Chem 7: 08/20/24 03:18 08/20/24 02:48 Assessment and Plan Assessment: 1. Acute exacerbation COPD/asthma; secondary to acute RSV bronchitis -Chest x-ray is negative for any acute pulmonary process -Patient has been placed on IV Solu-Medrol; DuoNeb nebulizer treatments 4 times daily and as needed; Singulair 10 mg nightly -Patient has been evaluated by pulmonary and is recommended initiating Symbicort inhaler -Patient currently off antibiotic, she is on Bumex once daily 2. Acute hypoxic respiratory failure; related to acute exacerbation asthma/COPD related to acute RSV bronchitis -We will continue with O2 per nasal cannula and titrate/wean as needed 3. End-stage renal disease/HD; patient has hemodialysis schedule of Monday, Monday and Monday -PhosLo 667 mg 4 times daily as needed -Nephrology is consulted 4. Nephrolithiasis with frequent UTIs; outpatient urology follow-up 5. Hypothyroidism; levothyroxine 150 mcg daily 6. Anemia of chronic disease; hemoglobin at baseline at 10.7 7. History of pulmonary nodule; follow-up with pulmonary as outpatient GI prophylaxis: Protonix DVT PPx; SCDs/subcu heparin CODE STATUS; full code
--- NOTE | 2024-08-25 11:32 | P.PN ---
Subjective Progress Note Date: 08/25/24 Patient is an 79-year-old female with past medical history significant for mild intermittent asthma, end-stage renal disease on hemodialysis, polymyalgia rheumatica, hypothyroidism, cerebral aneurysm. Chief complaint is increase work of breathing over the last week. Also, endorses associated dry cough that is nonproductive. Tested positive for RSV as an outpatient. Patient does have history of mild intermittent bronchial asthma. Lifelong non-smoker. Follows in the pulmonary office with Dr. Roger. Directed to the emergency department yesterday evening. Workup in the emergency department including viral 4 Plex again positive for RSV. Chest x-ray shows chronic parenchymal changes without any focal infiltrates, pleural effusions, pneumothoraces. Right subclavian permacath. CBC: WBC count 7.4, hemoglobin 10.7, platelets 175. CMP: Sodium 135, potassium 3.6, chloride 95, serum bicarb 33, BUN 45, creatinine 2.3, glucose 113. Lactic 1.1. LFTs unremarkable. Patient currently be evaluated on the general medical floor. She is resting comfortably on 1 L/min nasal cannula. Expiratory wheezing and bronchospastic cough. No respiratory distress. States she originally tested positive for RSV at her PCPs office, Dr. Hogue, approximately 2 weeks ago. No improvement with supportive care including steroid burst taper and albuterol nebs. Continues to have shortness of breath with associated persistent dry non productive cough and wheezing. Chest discomfort, only with coughing fits. States she has Tessalon Perles at home, which helps with the cough. Fevers and chills have subsided. Tolerating oral intake including fluids and food. Previous episodes of diarrhea, which have sub sided. Current vital signs: Temperature 97.7 F, heart rate 64 bpm, blood pressure 133/81 mmHg, nontachypneic, SpO2 recorded at 94% on 1 L/min nasal cannula. 08/17/2024, the patient remains congested and wheezy and she is having also limited shortness of breath at rest. She has an acute RSV infection and the patient was seen in consultation yesterday. The patient has exacerbation of her chronic bronchial asthma related to RSV infection. The patient is currently on 2 L of oxygen by nasal cannula. No nausea vomiting or diarrhea. No new labs are available from today. No altered mentation. Remains on bronchodilators. Remains on IV Solu-Medrol 60 mg every 6 hours. Remains on Symbicort and Tessalon perles. On 08/18/2024, the patient is being seen for a follow-up. The patient is still c ongested bronchospastic and wheezy compared to yesterday. Resting comfortably in bed. She remains on 2 L of oxygen by nasal cannula with a pulse ox of 95%. The patient has end-stage renal disease on hemodialysis. Sodium is at 136 and potassium is at 3.4. The white cell count 13.6 with a hemoglobin of 9. The patient has an acute RSV infection. The patient remains on Symbicort and DuoNeb nebulizers [id number] and the patient is on IV Solu-Medrol. She is on Bumex 1 mg p.o. daily. No other nephrotoxic agents being administered at this point. The patient is seen today August 19, 2024 in follow-up on the regular medical floor. She is awake and alert in no acute distress. She is maintaining O2 saturations in the 90s on 2 L/min per nasal cannula. She remains afebrile. Hemodynamically stable. Blood culture reveals no growth. Sodium 136. Potassium 3.2. Bicarb 21. BUN 68. Creatinine 3.3. Glucose 161. She is continued on DuoNeb and elations, Symbicort, Solu-Medrol, Singulair. Remains on Tessalon Perles. Remains on oral diuretics. Heparin for DVT prophylaxis. The patient is seen today August 20, 2024 in follow-up on the regular medical floor. She remains awake and alert in no acute distress. Maintaining O2 saturations in the 90s on 2 L/min per nasal cannula. She is continued on DuoNeb inhalations, Symbicort, Solu-Medrol, Singulair. Heparin for DVT prophylaxis. Blood culture reveals no growth. White count 13.7. Hemoglobin 10.6. Platelets 137. Sodium 130. Potassium 3.8. Bicarb 24. BUN 31. Creatinine 1.57. The patient is seen today August 21, 2024 in follow-up on the regular medical floor. She is currently sitting up in bed. Awake and alert in no acute distress. Feeling nearly back to her baseline. Still somewhat bronchospastic and wheezing. She is due for hemodialysis today. Blood culture revealed no growth. No new labs today. She remains on DuoNeb and elations, Symbicort, Solu-Medrol and Singulair. Heparin for DVT prophylaxis. Tessalon Perles for her cough as needed. Patient is seen today August 22, 2024 in follow-up on the regular medical floor. She is awake and alert in no acute distress. Maintaining O2 saturations in the 90s on 2 L/min per nasal cannula. She has breathing easier today compared to yesterday. Less bronchospastic and wheezing. She is afebrile. Hemodynamically stable. Blood culture revealed no growth. No new labs today. She remains on DuoNeb and elations, Symbicort, Solu-Medrol, Singulair. She remains on Bumex. Heparin for DVT prophylaxis. Tessalon Perles for her cough. She remains on a Monday hemodialysis schedule. The patient is seen today August 23, 2024 in follow-up on the regular medical floor. He is currently resting comfortably in bed. Awake and alert in no acute distress. Maintaining O2 saturations in the 90s on 3 L/min per nasal cannula. She has been afebrile. Hemodynamically stable. Receiving hemodialysis today. Follow-up chest x-ray reveals chronic changes without evidence for acute pulmonary disease. Blood culture revealed no growth. Glucose 98. She remains on DuoNeb inhalations, Singulair, Symbicort, Solu-Medrol. Remains on oral diuretics. Heparin for DVT prophylaxis. The patient is seen today August 24, 2024 in follow-up on the regular medical floor. She is awake and alert in no acute distress. Feeling better today compared to yesterday. Resting comfortably in bed. She did have hemodialysis yesterday with 2 L removed. She is maintaining good O2 saturations in the upper 90s on 2 L nasal cannula. She is afebrile. Hemodynamically stable. Chest x- ray reveals chronic changes without evidence of acute pulmonary disease. Blood culture revealed no growth. No new labs today. Continued on DuoNeb inhalations, Symbicort, Solu-Medrol, Singulair. Heparin for DVT prophylaxis. Remains on oral diuretics. The patient is seen today August 25, 2024 in follow-up on the regular medical floor. She is resting comfortably in bed. Awake and alert in no acute distress. Feeling better today compared to yesterday. Denies any worsening shortness of breath, cough or congestion. Maintaining good O2 saturations in the high 90s on 2 L/min per nasal cannula. She is afebrile. Hemodynamically stable. No new labs today. She remains on Symbicort, Solu-Medrol, Singulair and DuoNeb inhalations. Remains on oral diuretics. Heparin for DVT prophylaxis Objective - Vital Signs Vital signs: Vital Signs Temp 97.6 F 08/25/24 07:58 Pulse 92 08/25/24 09:24 Resp 16 08/25/24 11:08 BP 128/70 08/25/24 07:58 Pulse Ox 99 08/25/24 07:58 FiO2 Intake & Output 08/24/24 08/25/24 08/25/24 18:59 06:59 18:59 Intake Total 250 1080 Balance 250 1080 Intake: Oral 250 1080 Other: Voiding Method Toilet Toilet Toilet # Voids 1 5 # Bowel Movements 2 - Exam GENERAL EXAM: Alert, pleasant 79-year-old female, on 2 L nasal cannula, in no apparent distress. HEAD: Normocephalic. EYES: Normal reaction of pupils, equal size. NOSE: Clear with pink turbinates. THROAT: No erythema or exudates. NECK: No masses, no JVD. CHEST: No chest wall deformity. LUNGS: Equal air entry with few scattered rhonchi, end expiratory wheeze. CVS: S1 and S2 normal with no audible murmur, regular rhythm. ABDOMEN: No hepatosplenomegaly, normal bowel sounds, no guarding or rigidity. SPINE: No scoliosis or deformity SKIN: No rashes CENTRAL NERVOUS SYSTEM: No focal deficits, tone is normal in all 4 extremities. EXTREMITIES: There is no peripheral edema. No clubbing, no cyanosis. Peripheral pulses are intact. - Labs CBC & Chem 7: 08/20/24 03:18 08/20/24 02:48 Assessment and Plan Assessment: Acute exacerbation of mild intermittent bronchial asthma, secondary to acute RSV bronchitis Acute RSV bronchitis Acute hypoxemic respiratory failure, currently on 2 L/min nasal cannula, secondary to above End-stage renal disease, maintained on hemodialysis with a Monday, Monday, Monday schedule Anemia of chronic disease History of nephrolithiasis and frequent urinary tract infections History of hypothyroidism History of polymyalgia rheumatica Lifelong non-smoker Plan: The patient was seen and evaluated Medications reviewed Stable and on 2 L nasal cannula Continue DuoNeb inhalations Continue Symbicort Discontinue Solu-Medrol Initiate a prednisone taper Heparin for DVT prophylaxis Remains on oral diuretics Plan is for subacute rehabilitation at [facility] at discharge This patient was seen independently by the pulmonary nurse practitioner addressing pulmonary issues I have personally seen and examined the patient, performed the documentation and the assessment and plan as written. Number of minutes spent on the visit: 22 Dictation was produced using [employer] dictation software. Please excuse any grammatical, word or spelling errors.
[2024-08-25 11:42] LABS: HCT 34.9 % (34.0-46.0); HGB 10.8 gm/dL (11.4-16.0); Hypochromasia Marked; MCH 33.1 pg (25.0-35.0); MCV 106.8 fL (80.0-100.0); Macrocytosis Moderate; Mean Platelet Volume 8.5; RBC 3.27 m/uL (3.80-5.40); RDW 15.9 % (11.5-15.5); WBC 14.9 k/uL (3.8-10.6)
[2024-08-25 12:02] LABS: Platelet Count 95 k/uL (150-450)
[2024-08-25 12:03] LABS: African American GFR (CKD) 17 (>60 ml/min/1.73 sqM); Anion Gap 14 mmol/L; Blood Urea Nitrogen 68 mg/dL (7-17); Carbon Dioxide 19 mmol/L (22-30); Chloride 102 mmol/L (98-107); Glucose 118 mg/dL (74-99); Non-African American GFR(CKD) 15 (>60 ml/min/1.73 sqM); Sodium 135 mmol/L (137-145)
--- NOTE | 2024-08-25 12:03 | P.PN ---
Subjective Patient is seen for follow-up for end-stage renal disease. No significant complaints. She is currently sleeping comfortably Scheduled for hemodialysis in a.m. Objective - Vital Signs Vital signs: Vital Signs Temp 97.6 F 08/25/24 07:58 Pulse 92 08/25/24 09:24 Resp 16 08/25/24 11:08 BP 128/70 08/25/24 07:58 Pulse Ox 99 08/25/24 07:58 FiO2 Intake & Output 08/24/24 08/25/24 08/25/24 18:59 06:59 18:59 Intake Total 250 1080 Balance 250 1080 Intake: Oral 250 1080 Other: Voiding Method Toilet Toilet Toilet # Voids 1 5 # Bowel Movements 2 - Exam Patient is sleeping, comfortable Examination lower extremity shows chronic edema, both legs are wrapped - Labs CBC & Chem 7: 08/25/24 11:28 08/20/24 02:48 Labs: Abnormal Lab Results - Last 24 Hours (Table) 08/25/24 Range/Units 11:28 WBC 14.9 H (3.8-10.6) k/uL RBC 3.27 L (3.80-5.40) m/uL Hgb 10.8 L (11.4-16.0) gm/dL MCV 106.8 H (80.0-100.0) fL RDW 15.9 H (11.5-15.5) % Assessment and Plan Assessment: 1. End-stage renal disease maintained on hemodialysis on Monday schedule. Has permacath. She has a thrombosed AV graft. 2. Acute RSV pneumonia. 3. Chronic kidney disease mineral bone disease. On PhosLo. 4. Acute COPD exacerbation. 5. Hypokalemia from diuresis. 6. Anemia of chronic kidney disease. Plan: Hemodialysis on Monday schedule
[2024-08-25 12:05] LABS: Band Neutrophils % 1 %; Lymphocytes # (M) 1.04 k/uL (1.0-4.8); Metamyelocytes % 2 %; Neutrophils % (M) 90 %; Nucleated Red Blood Cells 0 /100 WBC (0-0); Total Cells Counted 200
[2024-08-26 01:28] LABS: Glucose,Whole Blood 101 mg/dL (70-110)
[2024-08-26 04:16] LABS: Anisocytosis Slight; Basophils # (A) 0.1 k/uL (0-0.2); Basophils % (A) 0 %; Eosinophils # (A) 0.2 k/uL (0-0.7); Eosinophils % (A) 1 %; HCT 34.4 % (34.0-46.0); HGB 11.1 gm/dL (11.4-16.0); Hypochromasia Moderate; Lymphocytes # (A) 1.2 k/uL (1.0-4.8); Lymphocytes % (A) 6 %; MCH 34.1 pg (25.0-35.0); MCHC 32.3 g/dL (31.0-37.0); MCV 105.8 fL (80.0-100.0); Macrocytosis Moderate; Mean Platelet Volume 9.7; Monocytes # (A) 0.8 k/uL (0-1.0); Monocytes % (A) 4 %; Neutrophils # (A) 17.8 k/uL (1.3-7.7); Neutrophils % (A) 88 %; RBC 3.25 m/uL (3.80-5.40); RDW 16.1 % (11.5-15.5); WBC 20.1 k/uL (3.8-10.6)
[2024-08-26 04:30] LABS: Platelet Count 83 k/uL (150-450)
--- NOTE | 2024-08-26 05:22 | XR ---
EXAM: XR Right Hip With Pelvis When Performed, 1 View CLINICAL HISTORY: ITS.REASON XR Reason: fall/ right hip/butt pain TECHNIQUE: Frontal view of the right hip with pelvis when performed. COMPARISON: No relevant prior studies available. FINDINGS: Bones/joints: Moderate right hip degenerative change. No acute fracture. No dislocation. Soft tissues: Unremarkable. Vasculature: Surgical clips overlie the right lateral pelvis. Vascular calcifications are visualized. IMPRESSION: Degenerative change with no acute osseous abnormalities. No evidence of fracture.
[2024-08-26] MEDS: predniSONE 10 MG TAB PO SCH (08:43)
--- NOTE | 2024-08-26 11:07 | P.DS ---
Providers Date of admission: 08/15/24 21:27 Attending physician: Davey Parker MD Consults: 08/15/24 21:27 Consult Physician Routine Consulting Provider: Liz Sandoval Consult Reason/Comments: lizz Do you want consulting provider notified?: Yes 08/16/24 03:59 Consult Physician Routine Consulting Provider: Augustus Pace Consult Reason/Comments: Hemodialysis; MWF cassy Do you want consulting provider notified?: Yes, Notify in am Primary care physician: [facility] Course: Diagnoses: 1. Acute exacerbation COPD/asthma; secondary to acute RSV bronchitis 2. Acute hypoxic respiratory failure; related to acute exacerbation asthma/COPD related to acute RSV bronchitis 3. End-stage renal disease/HD; patient has hemodialysis schedule of Monday, Monday and Monday 4. Nephrolithiasis with frequent UTIs; outpatient urology follow-up 5. Hypothyroidism; levothyroxine 150 mcg daily 6. Anemia of chronic disease; hemoglobin at baseline at 10.7 7. History of pulmonary nodule; follow-up with pulmonary as outpatient 8. Fall without syncope on 08/25 on the left hip, left hip x-ray is negative. Follow-up outpatient Hospital course: old female present to the emergency department with concerns with difficulty breathing. patient was found to have acute COPD and asthma exacerbation secondary to RSV bronchitis Affecting her breathing patient was evaluated by pulmonary service and she was treated with IV Solu-Medrol . Patient showed interval improvement in her breathing improved however she is generally weak and will require rehab upon discharge Last night she was trying to get out of bed going to the restroom, she fell weak and fell on her left hip. X-ray of the left hip was negative for acute fractures showing only degenerative changes. Patient lower extremity is not s hortened or externally rotated. She has some pain and tenderness in the left hip area which is controlled with pain medication. At home she takes Ultram 25 mg 3 times daily because of her fall and increased pain with going to increase the dose to 50 mg 3 times daily as needed x 3 days after that we recommend she go back to her home dose of 25 mg of Ultram 3 times daily. If left hip pain persist for 5 to 7 days we recommend repeating x-ray to check for any occult fracture. Patient instructed to follow-up with director of home health services Dr. Boyle in 2 weeks Also patient continued on hemodialysis on schedule. She is getting hemodialysis today. Patient denies any other new complaint. Patient agrees to go to rehab today Patient was cleared for discharge by all eyewear consultant including pulmonary service will switch her IV steroids and to oral dose. Patient will be discharged on taper prednisone. Problems and management plan were discussed with the patient and he verbalized understanding and acceptance Patient was found stable and can be discharged home in guarded prognosis however he needs follow-up as an outpatient. Patient was instructed to follow up with PCP within one week and patient agrees Physical exam Gen: patient is a AAOx3, no distress CVS: S1-S2, RRR, no murmur Lungs: B/L CTA, no wheezing Abdomen: soft, no distention, no tenderness, positive bowel sounds Extremity: no leg edema or induration Time spent more than 35 minutes Plan - Discharge Summary Discharge Rx Participant: No New Discharge Prescriptions: New Darbepoetin Mike [Aranesp] 40 mcg SQ Q7D each predniSONE 10 mg PO DIRECTED #24 tab Budesonide-Formot 160-4.5 Mcg [Symbicort 160-4.5 Mcg Inhaler] 2 puff INHALATION RT-BID each traMADol HCl [Ultram] 25 mg PO TID PRN 3 Days #18 tab PRN Reason: Pain Continue Montelukast [Singulair] 10 mg PO HS FLUoxetine HCL [PROzac] 20 mg PO BID Omeprazole 40 mg PO AC-BID Mirabegron [Myrbetriq] 25 mg PO DAILY Ergocalciferol [Vitamin D2 (1250 Mcg = 78521 Iu)] 1,250 mcg PO SUTUTHSA Gabapentin [Neurontin] 300 mg PO BID Bumetanide [BUMEX] 1 mg PO DAILY Sodium Bicarbonate Tab 1,300 mg PO BID@0800,1200 predniSONE 5 mg PO QID Levothyroxine Sodium [Synthroid] 150 mcg PO DAILY Baclofen 5 mg PO BID Benzonatate [Tessalon Perles] 100 mg PO Q4H PRN PRN Reason: Cough Magnesium Chloride W/ D 1 tab PO DAILY Albuterol Inhaler [Ventolin Hfa Inhaler] 2 puff INHALATION RT-Q6H PRN PRN Reason: Shortness Of Breath Acetaminophen Tab [Tylenol] 650 mg PO Q6HR PRN tab PRN Reason: Mild Pain Or Fever > 100.5 Calcium Acetate [PhosLo] 667 mg PO DIRECTED PRN PRN Reason: SNACKS Changed Loratadine 10 mg PO DAILY PRN #0 PRN Reason: Allergy Symptoms Discontinued Sodium Bicarbonate Tab 1,950 mg PO W/SUPPER Methenamine Hippurate 1 gm PO BID Calcium Acetate [Phoslo] 1,334 mg PO TID-W/MEALS Potassium Chloride [Klor-Con M20] 20 meq PO DAILY metroNIDAZOLE [Flagyl] 250 mg PO DAILY Levofloxacin [Levaquin] 500 mg PO DAILY calcitrioL 2 mcg PO MOWEFR Discharge Medication List FLUoxetine HCL [PROzac] 20 mg PO BID 08/23/18 [History] Montelukast [Singulair] 10 mg PO HS 08/23/18 [History] Omeprazole 40 mg PO AC-BID 11/19/18 [History] Mirabegron [Myrbetriq] 25 mg PO DAILY 01/25/21 [History] Albuterol Inhaler [Ventolin Hfa Inhaler] 2 puff INHALATION RT-Q6H PRN 02/07/23 [History] Bumetanide [BUMEX] 1 mg PO DAILY 10/17/23 [History] Ergocalciferol [Vitamin D2 (1250 Mcg = 79133 Iu)] 1,250 mcg PO SUTUTHSA 10/17/23 [History] Gabapentin [Neurontin] 300 mg PO BID 10/17/23 [History] Sodium Bicarbonate Tab 1,300 mg PO BID@0800,1200 04/15/24 [History] Levothyroxine Sodium [Synthroid] 150 mcg PO DAILY 04/28/24 [History] predniSONE 5 mg PO QID 04/28/24 [History] Acetaminophen Tab [Tylenol] 650 mg PO Q6HR PRN tab 04/30/24 [Rx] Baclofen 5 mg PO BID 08/16/24 [History] Benzonatate [Tessalon Perles] 100 mg PO Q4H PRN 08/16/24 [History] Calcium Acetate [PhosLo] 667 mg PO DIRECTED PRN 08/16/24 [History] Magnesium Chloride W/ D 1 tab PO DAILY 08/16/24 [History] Budesonide-Formot 160-4.5 Mcg [Symbicort 160-4.5 Mcg Inhaler] 2 puff INHALATION RT-BID each 08/26/24 [Rx] Darbepoetin Mike [Aranesp] 40 mcg SQ Q7D each 08/26/24 [Rx] Loratadine 10 mg PO DAILY PRN #0 08/26/24 [Rx] predniSONE 10 mg PO DIRECTED #24 tab 08/26/24 [Rx] traMADol HCl [Ultram] 25 mg PO TID PRN 3 Days #18 tab 08/26/24 [Rx] Follow up Appointment(s)/Referral(s): [facility] [NON-STAFF] - As Needed (Mondays, Wednesdays, and Fridays at 12:15 p.m. ) Bienvenido Hogue MD [Primary Care Provider] - 1-2 days Activity/Diet/Wound Care/Special Instructions: Renal diet Activity as tolerated Discharge Disposition: TRANSFER TO SNF/ECF
[2024-08-26] MEDS: traMADol 50 MG TAB PO SCH (11:15)
--- NOTE | 2024-08-26 11:23 | P.PN ---
Subjective Patient is seen in follow-up for end-stage renal disease. Resting in bed. Receiving a breathing treatment. Vital signs are stable. General: No acute distress. HEENT: Head exam is unremarkable. O2 mask noted. LUNGS: No audible rhonchi or wheezes. HEART: Rate and Rhythm are regular. ABDOMEN: Nontender. EXTREMITITES: Chronic edema. Objective - Vital Signs Vital signs: Vital Signs Temp 98.1 F 08/26/24 07:47 Pulse 76 08/26/24 11:11 Resp 17 08/26/24 07:47 BP 100/64 08/26/24 07:47 Pulse Ox 96 08/26/24 07:56 FiO2 Intake & Output 08/25/24 08/26/24 08/26/24 18:59 06:59 18:59 Intake Total 200 Balance 200 Intake: Oral 200 Other: Voiding Method Toilet Toilet # Voids 1 3 # Bowel Movements 1 - Labs CBC & Chem 7: 08/26/24 03:37 08/25/24 11:28 Labs: Abnormal Lab Results - Last 24 Hours (Table) 08/25/24 08/25/24 08/26/24 Range/Units 11:28 11:28 03:37 WBC 14.9 H 20.1 H (3.8-10.6) k/uL RBC 3.27 L 3.25 L (3.80-5.40) m/uL Hgb 10.8 L 11.1 L (11.4-16.0) gm/dL MCV 106.8 H 105.8 H (80.0-100.0) fL RDW 15.9 H 16.1 H (11.5-15.5) % Plt Count 95 L 83 L (150-450) k/uL Neutrophils # 17.8 H (1.3-7.7) k/uL Neutrophils # (Manual) 13.50 H (1.3-7.7) k/uL Metamyelocytes # (Man) 0.30 H (0) k/uL Sodium 135 L (137-145) mmol/L Carbon Dioxide 19 L (22-30) mmol/L BUN 68 H (7-17) mg/dL Creatinine 2.87 H (0.52-1.04) mg/dL Glucose 118 H (74-99) mg/dL Calcium 8.0 L (8.4-10.2) mg/dL Assessment and Plan Plan: Assessment: 1. End-stage renal disease maintained on hemodialysis on Monday schedule. Has permacath. She has a clotted AV graft. 2. Acute RSV pneumonia. 3. Chronic kidney disease mineral bone disease. On PhosLo. 4. Acute COPD exacerbation. 5. Hypokalemia from diuresis. Improved. 6. Anemia of chronic kidney disease. On Aranesp. Plan: Hemodialysis today. Potential discharge to rehab after dialysis today.
[2024-08-26] MEDS ORDERED: HEPARIN SODIUM 1,000 UN/ML (10ML VL) ONE (13:10)
--- NOTE | 2024-08-26 15:38 | P.PN ---
Subjective Progress Note Date: 08/26/24 Patient is an 79-year-old female with past medical history significant for mild intermittent asthma, end-stage renal disease on hemodialysis, polymyalgia rheumatica, hypothyroidism, cerebral aneurysm. Chief complaint is increase work of breathing over the last week. Also, endorses associated dry cough that is nonproductive. Tested positive for RSV as an outpatient. Patient does have history of mild intermittent bronchial asthma. Lifelong non-smoker. Follows in the pulmonary office with Dr. Roger. Directed to the emergency department yesterday evening. Workup in the emergency department including viral 4 Plex again positive for RSV. Chest x-ray shows chronic parenchymal changes without any focal infiltrates, pleural effusions, pneumothoraces. Right subclavian permacath. CBC: WBC count 7.4, hemoglobin 10.7, platelets 175. CMP: Sodium 135, potassium 3.6, chloride 95, serum bicarb 33, BUN 45, creatinine 2.3, glucose 113. Lactic 1.1. LFTs unremarkable. Patient currently be evaluated on the general medical floor. She is resting comfortably on 1 L/min nasal cannula. Expiratory wheezing and bronchospastic cough. No respiratory distress. States she originally tested positive for RSV at her PCPs office, Dr. Hogue, approximately 2 weeks ago. No improvement with supportive care including steroid burst taper and albuterol nebs. Continues to have shortness of breath with associated persistent dry non productive cough and wheezing. Chest discomfort, only with coughing fits. States she has Tessalon Perles at home, which helps with the cough. Fevers and chills have subsided. Tolerating oral intake including fluids and food. Previous episodes of diarrhea, which have sub sided. Current vital signs: Temperature 97.7 F, heart rate 64 bpm, blood pressure 133/81 mmHg, nontachypneic, SpO2 recorded at 94% on 1 L/min nasal cannula. 08/17/2024, the patient remains congested and wheezy and she is having also limited shortness of breath at rest. She has an acute RSV infection and the patient was seen in consultation yesterday. The patient has exacerbation of her chronic bronchial asthma related to RSV infection. The patient is currently on 2 L of oxygen by nasal cannula. No nausea vomiting or diarrhea. No new labs are available from today. No altered mentation. Remains on bronchodilators. Remains on IV Solu-Medrol 60 mg every 6 hours. Remains on Symbicort and Tessalon perles. On 08/18/2024, the patient is being seen for a follow-up. The patient is still c ongested bronchospastic and wheezy compared to yesterday. Resting comfortably in bed. She remains on 2 L of oxygen by nasal cannula with a pulse ox of 95%. The patient has end-stage renal disease on hemodialysis. Sodium is at 136 and potassium is at 3.4. The white cell count 13.6 with a hemoglobin of 9. The patient has an acute RSV infection. The patient remains on Symbicort and DuoNeb nebulizers [id number] and the patient is on IV Solu-Medrol. She is on Bumex 1 mg p.o. daily. No other nephrotoxic agents being administered at this point. The patient is seen today August 19, 2024 in follow-up on the regular medical floor. She is awake and alert in no acute distress. She is maintaining O2 saturations in the 90s on 2 L/min per nasal cannula. She remains afebrile. Hemodynamically stable. Blood culture reveals no growth. Sodium 136. Potassium 3.2. Bicarb 21. BUN 68. Creatinine 3.3. Glucose 161. She is continued on DuoNeb and elations, Symbicort, Solu-Medrol, Singulair. Remains on Tessalon Perles. Remains on oral diuretics. Heparin for DVT prophylaxis. The patient is seen today August 20, 2024 in follow-up on the regular medical floor. She remains awake and alert in no acute distress. Maintaining O2 saturations in the 90s on 2 L/min per nasal cannula. She is continued on DuoNeb inhalations, Symbicort, Solu-Medrol, Singulair. Heparin for DVT prophylaxis. Blood culture reveals no growth. White count 13.7. Hemoglobin 10.6. Platelets 137. Sodium 130. Potassium 3.8. Bicarb 24. BUN 31. Creatinine 1.57. The patient is seen today August 21, 2024 in follow-up on the regular medical floor. She is currently sitting up in bed. Awake and alert in no acute distress. Feeling nearly back to her baseline. Still somewhat bronchospastic and wheezing. She is due for hemodialysis today. Blood culture revealed no growth. No new labs today. She remains on DuoNeb and elations, Symbicort, Solu-Medrol and Singulair. Heparin for DVT prophylaxis. Tessalon Perles for her cough as needed. Patient is seen today August 22, 2024 in follow-up on the regular medical floor. She is awake and alert in no acute distress. Maintaining O2 saturations in the 90s on 2 L/min per nasal cannula. She has breathing easier today compared to yesterday. Less bronchospastic and wheezing. She is afebrile. Hemodynamically stable. Blood culture revealed no growth. No new labs today. She remains on DuoNeb and elations, Symbicort, Solu-Medrol, Singulair. She remains on Bumex. Heparin for DVT prophylaxis. Tessalon Perles for her cough. She remains on a Monday hemodialysis schedule. The patient is seen today August 23, 2024 in follow-up on the regular medical floor. He is currently resting comfortably in bed. Awake and alert in no acute distress. Maintaining O2 saturations in the 90s on 3 L/min per nasal cannula. She has been afebrile. Hemodynamically stable. Receiving hemodialysis today. Follow-up chest x-ray reveals chronic changes without evidence for acute pulmonary disease. Blood culture revealed no growth. Glucose 98. She remains on DuoNeb inhalations, Singulair, Symbicort, Solu-Medrol. Remains on oral diuretics. Heparin for DVT prophylaxis. The patient is seen today August 24, 2024 in follow-up on the regular medical floor. She is awake and alert in no acute distress. Feeling better today compared to yesterday. Resting comfortably in bed. She did have hemodialysis yesterday with 2 L removed. She is maintaining good O2 saturations in the upper 90s on 2 L nasal cannula. She is afebrile. Hemodynamically stable. Chest x- ray reveals chronic changes without evidence of acute pulmonary disease. Blood culture revealed no growth. No new labs today. Continued on DuoNeb inhalations, Symbicort, Solu-Medrol, Singulair. Heparin for DVT prophylaxis. Remains on oral diuretics. The patient is seen today August 25, 2024 in follow-up on the regular medical floor. She is resting comfortably in bed. Awake and alert in no acute distress. Feeling better today compared to yesterday. Denies any worsening shortness of breath, cough or congestion. Maintaining good O2 saturations in the high 90s on 2 L/min per nasal cannula. She is afebrile. Hemodynamically stable. No new labs today. She remains on Symbicort, Solu-Medrol, Singulair and DuoNeb inhalations. Remains on oral diuretics. Heparin for DVT prophylaxis The patient is seen today August 26, 2024 in follow-up on the regular medical floor. She is resting comfortably in bed. Awake and alert in no acute distress. She did sustain a fall last evening. Hip x-rays revealed no evidence of fracture. She is feeling better today. She is continued on DuoNeb and elations, Symbicort, prednisone taper, Singulair. Remains on Tessalon Perles as needed. Remains on Bumex. To receive hemodialysis today as she is on a Monday schedule. White count 20.1. Hemoglobin 11.1. Platelets 83,000. C. difficile screen negative. Objective - Vital Signs Vital signs: Vital Signs Temp 98.1 F 08/26/24 07:47 Pulse 76 08/26/24 14:58 Resp 17 08/26/24 07:47 BP 100/64 08/26/24 07:47 Pulse Ox 96 08/26/24 07:56 FiO2 Intake & Output 08/25/24 08/26/24 08/26/24 18:59 06:59 18:59 Intake Total 200 Balance 200 Intake: Oral 200 Other: Voiding Method Toilet Toilet # Voids 1 3 # Bowel Movements 1 - Exam GENERAL EXAM: Alert, pleasant 79-year-old female, resting comfortably in bed, on 2 L nasal cannula, in no apparent distress. HEAD: Normocephalic. EYES: Normal reaction of pupils, equal size. NOSE: Clear with pink turbinates. THROAT: No erythema or exudates. NECK: No masses, no JVD. CHEST: No chest wall deformity. LUNGS: Equal air entry with few scattered rhonchi, end expiratory wheeze. CVS: S1 and S2 normal with no audible murmur, regular rhythm. ABDOMEN: No hepatosplenomegaly, normal bowel sounds, no guarding or rigidity. SPINE: No scoliosis or deformity SKIN: No rashes CENTRAL NERVOUS SYSTEM: No focal deficits, tone is normal in all 4 extremities. EXTREMITIES: There is no peripheral edema. No clubbing, no cyanosis. Peripheral pulses are intact. - Labs CBC & Chem 7: 08/26/24 03:37 08/25/24 11:28 Labs: Abnormal Lab Results - Last 24 Hours (Table) 08/26/24 Range/Units 03:37 WBC 20.1 H (3.8-10.6) k/uL RBC 3.25 L (3.80-5.40) m/uL Hgb 11.1 L (11.4-16.0) gm/dL MCV 105.8 H (80.0-100.0) fL RDW 16.1 H (11.5-15.5) % Plt Count 83 L (150-450) k/uL Neutrophils # 17.8 H (1.3-7.7) k/uL Assessment and Plan Assessment: Acute exacerbation of mild intermittent chronic bronchial asthma, secondary to acute RSV bronchitis Acute RSV bronchitis Acute hypoxemic respiratory failure, currently on 2 L/min nasal cannula, secondary to above End-stage renal disease, maintained on hemodialysis with a Monday, Monday, Monday schedule Anemia of chronic disease History of nephrolithiasis and frequent urinary tract infections History of hypothyroidism History of polymyalgia rheumatica Lifelong non-smoker Plan: The patient was seen and evaluated Medications and labs reviewed Stable and on 2 L nasal cannula Continue DuoNeb inhalations Continue Symbicort Continue a prednisone taper Heparin for DVT prophylaxis Remains on oral diuretics Receiving hemodialysis Monday schedule Plan is for subacute rehabilitation at [facility] at discharge I have personally seen and examined the patient, performed the documentation and the assessment and plan as written. Number of minutes spent on the visit: 10 Dictation was produced using [employer] dictation software. Please excuse any grammatical, word or spelling errors.
[2024-08-26 16:52] VITALS: BP 104/72; PULSE 62; RESP 18; TEMP 97.6
== END 2024-08-26 18:49 | DRG 190 ==
LOC: EC 16:32 → 6NMEDSUR 21:27 → OBSVTOIN 21:27 → 4SSUR 22:01
PROVIDERS: ADMIT Internal Medicine; ATTEND Internal Medicine
PROC: 5A1D70Z Performance of Urinary Filtration, Intermittent, Less than 6 Hours Per Day (ICD-10-PCS; principal; 2024-08-16)
DX: J44.0 Chronic obstructive pulmonary disease with (acute) lower respiratory infection (principal); J96.01 Acute respiratory failure with hypoxia; N18.6 End stage renal disease; T82.818A Embolism due to vascular prosthetic devices, implants and grafts, initial encounter; E83.9 Disorder of mineral metabolism, unspecified; D63.1 Anemia in chronic kidney disease; Z99.2 Dependence on renal dialysis; J44.1 Chronic obstructive pulmonary disease with (acute) exacerbation; M35.3 Polymyalgia rheumatica; E03.9 Hypothyroidism, unspecified; J45.21 Mild intermittent asthma with (acute) exacerbation; T82.868A Thrombosis due to vascular prosthetic devices, implants and grafts, initial encounter; J84.10 Pulmonary fibrosis, unspecified; J20.5 Acute bronchitis due to respiratory syncytial virus; R91.1 Solitary pulmonary nodule; M81.0 Age-related osteoporosis without current pathological fracture; M19.90 Unspecified osteoarthritis, unspecified site; R19.7 Diarrhea, unspecified; E87.6 Hypokalemia; N20.0 Calculus of kidney; W19.XXXA Unspecified fall, initial encounter; M25.552 Pain in left hip; Y83.2 Surgical operation with anastomosis, bypass or graft as the cause of abnormal reaction of the patient, or of later complication, without mention of misadventure at the time of the procedure; Z79.890 Hormone replacement therapy; Z79.899 Other long term (current) drug therapy; Z85.828 Personal history of other malignant neoplasm of skin; Z87.440 Personal history of urinary (tract) infections; Z87.442 Personal history of urinary calculi; Z98.84 Bariatric surgery status
CPT/HCPCS: 36415; 71045; 71046; 73502; 80048; 80053; 83605; 84484; 85025; 85610; 85730; 87040; 87324; 87636; 90935; 93005; 94640; 94760; 99285

== ENCOUNTER 2024-11-30 12:46 | Inpatient (IN) | payer MEDICARE ==
[2024-11-30 13:38] LABS: Basophils # (A) 0.05 10*3/uL (0.00-0.10); Basophils % (A) 0.4 %; Eosinophils # (A) 0.15 10*3/uL (0.04-0.35); Eosinophils % (A) 1.2 %; HCT 38.3 % (37.2-46.3); HGB 12.6 g/dL (12.0-15.0); Immature Platelet Fraction 3.2 % (1.1-6.1); Lymphocytes # (A) 1.40 10*3/uL (0.90-5.00); Lymphocytes % (A) 10.9 %; MCH 32.9 pg (27.0-32.0); MCHC 32.9 g/dL (32.0-37.0); MCV 100.0 fL (80.0-97.0); Monocytes # (A) 0.80 10*3/uL (0.20-1.00); Monocytes % (A) 6.2 %; Neutrophils # (A) 10.39 10*3/uL (1.80-7.70); Neutrophils % (A) 80.7 %; Platelet Count 101 10*3/uL (140-440); RBC 3.83 10*6/uL (4.10-5.20); RDW 13.7 % (11.5-14.5); WBC 12.87 10*3/uL (4.50-10.00)
[2024-11-30 13:48] LABS: INR 1.0 (<1.2); Partial Thromboplastin Time 23.7 sec (22.0-30.0); Prothrombin Time 11.5 sec (10.0-12.5)
--- NOTE | 2024-11-30 13:49 | ED ---
General Adult HPI - General Chief complaint: Neuro Symptoms/Deficit Stated complaint: facial drooping Time Seen by Provider: 11/30/24 13:05 Source: patient, RN notes reviewed, old records reviewed Mode of arrival: ambulatory Limitations: no limitations - History of Present Illness Initial comments: 79-year-old female presents from dialysis with left-sided facial droop. Patient uncertain when this began but she believes it may have began yesterday morning. She states she did not feel well yesterday and believes she overdid it. She had grandchildren in town and was quite active. Patient does have history of end- stage renal disease on hemodialysis. She went to dialysis this morning and symptoms were noted. She was sent to the emergency department for evaluation. Patient did not receive any dialysis today. - Related Data Home Medications Medication Instructions Recorded Confirmed FLUoxetine HCL [PROzac] 20 mg PO BID 08/23/18 08/16/24 Montelukast [Singulair] 10 mg PO HS 08/23/18 08/16/24 Omeprazole 40 mg PO AC-BID 11/19/18 08/16/24 Mirabegron [Myrbetriq] 25 mg PO DAILY 01/25/21 08/16/24 Albuterol Inhaler [Ventolin Hfa 2 puff INHALATION RT-Q6H PRN 02/07/23 08/16/24 Inhaler] Bumetanide [BUMEX] 1 mg PO DAILY 10/17/23 08/16/24 Ergocalciferol [Vitamin D2 (1250 1,250 mcg PO SUTUTHSA 10/17/23 08/16/24 Mcg = 76942 Iu)] Gabapentin [Neurontin] 300 mg PO BID 10/17/23 08/16/24 Sodium Bicarbonate Tab 1,300 mg PO BID@0800,1200 04/15/24 08/16/24 Levothyroxine Sodium [Synthroid] 150 mcg PO DAILY 04/28/24 08/16/24 predniSONE 5 mg PO QID 04/28/24 08/16/24 Baclofen 5 mg PO BID 08/16/24 08/16/24 Benzonatate [Tessalon Perles] 100 mg PO Q4H PRN 08/16/24 08/16/24 Magnesium Chloride W/ D 1 tab PO DAILY 08/16/24 08/16/24 Previous Rx's Medication Instructions Recorded Acetaminophen Tab [Tylenol] 650 mg PO Q6HR PRN tab 04/30/24 Budesonide-Formot 160-4.5 Mcg 2 puff INHALATION RT-BID each 08/26/24 [Symbicort 160-4.5 Mcg Inhaler] Darbepoetin Mike [Aranesp] 40 mcg SQ Q7D each 08/26/24 Loratadine 10 mg PO DAILY PRN #0 08/26/24 predniSONE 10 mg PO DIRECTED #24 tab 08/26/24 traMADol HCl [Ultram] 25 mg PO TID PRN 3 Days #18 tab 08/26/24 Allergies Allergy/AdvReac Type Severity Reaction Status Date / Time adhesive tape Allergy Rash/Hives Verified 08/16/24 10:17 Sulfa (Sulfonamide Allergy Itching Verified 08/16/24 10:17 Antibiotics) codeine AdvReac Nausea Verified 08/16/24 10:17 tetracycline AdvReac Nausea & Verified 08/16/24 10:17 Vomiting Review of Systems ROS Statement: Those systems with pertinent positive or pertinent negative responses have been documented in the HPI. ROS Other: All systems not noted in ROS Statement are negative. Past Medical History Past Medical History: Asthma, Cancer, COPD, Dialysis, Osteoarthritis (OA), Renal Disease, Thyroid Disorder Additional Past Medical History / Comment(s): ESRD- hemodialysis MOWEFR 3 1/2 hours, dialysis cath rt chest, kidney stones and UTI, hx lymphedema, hx pulmonary fibrosis, hx graves, hx rt foot torn ligaments, hx osteoporosis, hypotension; vitamin D deficiency, hypocalcemia, SKIN CANCER REMOVED FROM BRIDGE OF NOSE., PMR - polymyalgia rhematalia; currently bruised from neck to right breast History of Any Multi-Drug Resistant Organisms: CRE Date of last positivie culture/infection: 10/16/18 MDRO-CRE PER MDHS NOT C MDRO Source:: Urine Past Surgical History: Bariatric Surgery, Orthopedic Surgery Additional Past Surgical History / Comment(s): hx bariatric surgery-Kye En Y,lung biopsy,radioactive iodine-tx thyroid,rectal and bladder suspensions,vaginal surgery as a child,partha carpel tunnel,rt knee meniscus repair,D&C x3, left arm fistula 02/08/19(not working), left broken wrist, broken right wrist Past Anesthesia/Blood Transfusion Reactions: Previous Problems w/ Anesthesia Additional Past Anesthesia/Blood Transfusion Reaction / Comment(s): decrease bp with anesthesia, no problems with prior blood transfusion Past Psychological History: No Psychological Hx Reported Smoking Status: Never smoker Past Alcohol Use History: None Reported Past Drug Use History: None Reported - Past Family History Father Family Medical History: Pulmonary Embolus Additional Family Medical History / Comment(s): . Mother Family Medical History: Cancer Additional Family Medical History / Comment(s): colon ca, bone ca Sister(s) Family Medical History: Cancer Additional Family Medical History / Comment(s): kidney ca Daughter(s) Additional Family Medical History / Comment(s): lymphedema in legs Brother(s) Family Medical History: Cancer Additional Family Medical History / Comment(s): skin cancer General Exam Limitations: no limitations General appearance: alert, in no apparent distress Head exam: Present: atraumatic, normocephalic Eye exam: Present: normal appearance, PERRL ENT exam: Present: mucous membranes dry Respiratory exam: Present: normal lung sounds bilaterally. Absent: respiratory distress, wheezes Cardiovascular Exam: Present: regular rate, normal rhythm GI/Abdominal exam: Present: soft. Absent: distended, tenderness Extremities exam: Present: normal inspection Neurological exam: Present: alert, oriented X3, motor sensory deficit (Very subtle left-sided facial droop, NIH of 1) Psychiatric exam: Present: normal affect, normal mood Skin exam: Present: warm, dry, intact Course Vital Signs 11/30/24 11/30/24 12:59 14:25 Temperature 97.7 F Pulse Rate 75 63 Respiratory 16 18 Rate Blood Pressure 101/62 115/67 O2 Sat by Pulse 95 91 L Oximetry Medical Decision Making - Medical Decision Making Was pt. sent in by a medical professional or institution (, PA, MOTOR VEH[employer]LE PARTS INTERPRETER, urgent care, hospital, or care home...) When possible be specific @ -No Did you speak to anyone other than the patient for history (EMS, parent, family, police, friend...)? What history was obtained from this source @ -No Did you review nursing and triage notes (agree or disagree)? Why? @ -I reviewed and agree with nursing and triage notes Were old charts reviewed (outside hosp., previous admission, EMS record, old EKG, old radiological studies, urgent care reports/EKG's, care home records)? Report findings @ -No old charts were reviewed Differential CVA Ischemic stroke, hemorrhagic stroke, brain tumor, atypical migraine, Wernicke's encephalopathy, seizure, multiple sclerosis, meningitis, encephalitis, hypoglycemia, Guillain-Duncan, electrolytes disturbance, myasthenia gravis.... This is not meant to be an all-inclusive list EKG interpreted by me (3pts min.). @ -EKG: Sinus rhythm rate of 64, NV interval 201, QRS duration 94, QTc [address] segment elevation. X-rays interpreted by me (1pt min.). @ -Chest x-ray history was central pulmonary vascular congestion, mild pulmonary edema CT interpreted by me (1pt min.). @ -[CT brain is negative for intracranial hemorrhage or mass effect. U/S interpreted by me (1pt. min.). @ -None done What testing was considered but not performed or refused? (CT, X-rays, U/S, labs)? Why? @ -None What meds were considered but not given or refused? Why? @ -None Did you discuss the management of the patient with other professionals (professionals i.e. , PA, MOTOR VEHICLE [employer]S INTERPRETER, lab, RT, psych nurse, social work program coordinator, automatic blocker, teacher, juvenile justice officer, director of casework services)? Give summary @ -No Was smoking cessation discussed for >3mins.? @ -No Was critical care preformed (if so, how long)? @ -No Were there social determinants of health that impacted care today? How? (Homelessness, low income, unemployed, alcoholism, drug addiction, transportatio n, low edu. Level, literacy, decrease access to med. care, care home, rehab)? @ -No Was there de-escalation of care discussed even if they declined (Discuss DNR or withdrawal of care, Hospice)? DNR status @ -No What co-morbidities impacted this encounter? (DM, HTN, Smoking, COPD, CAD, Cancer, CVA, ARF, Chemo, Hep., AIDS, mental health diagnosis, sleep apnea, morbid obesity)? @ -[COPD, end-stage renal disease Was patient admitted / discharged? Hospital course, mention meds given and route, prescriptions, significant lab abnormalities, going to OR and other pertinent info. @79-year-old female presenting from dialysis with left-sided facial droop. Patient has a very subtle facial droop at the time my initial evaluation, NIH of 1. Vital signs are stable. This does resolve while in the emergency department. When reevaluated at 1440 the patient is asymptomatic and an NIH of 0. Head CT was performed and was negative for intracranial hemorrhage or mass effect. Patient did not receive dialysis today and does have pulmonary edema on chest x-ray with mild hypoxia. She will but will require evaluation for dialysis with nephrology and also neurology for TIA. Case discussed with Dr. Turner who will admit. Undiagnosed new problem with uncertain prognosis? @ -No Drug Therapy requiring intensive monitoring for toxicity (Heparin, Nitro, Insulin, Cardizem)? @ -No Were any procedures done? @ -No Diagnosis/symptom? @ -TIA, end-stage renal disease, fluid overload Acute, or Chronic, or Acute on Chronic? @ -[Acute Uncomplicated (without systemic symptoms) or Complicated (systemic symptoms)? @ -Default Side effects of treatment? @ -No Exacerbation, Progression, or Severe Exacerbation? @ -No Poses a threat to life or bodily function? How? (Chest pain, USA, HI, pneumonia, PE, COPD, DKA, ARF, appy, cholecystitis, CVA, Diverticulitis, Homicidal, Suicidal, threat to staff... and all critical care pts) @Yes, CVA, respiratory failure - Lab Data Result diagrams: 11/30/24 13:27 11/30/24 13:27 Lab Results 11/30/24 11/30/24 11/30/24 Range/Units 13:27 13:27 13:27 WBC 12.87 H (4.50-10.00) 10*3/uL RBC 3.83 L (4.10-5.20) 10*6/uL Hgb 12.6 (12.0-15.0) g/dL Hct 38.3 (37.2-46.3) % MCV 100.0 H (80.0-97.0) fL MCH 32.9 H (27.0-32.0) pg MCHC 32.9 (32.0-37.0) g/dL Plt Count 101 L (140-440) 10*3/uL MPV 10.6 (9.5-12.2) fL Immature Gran % (Auto) 0.6 % Neutrophils % 80.7 % Lymphocytes % 10.9 % Monocytes % 6.2 % Eosinophils % 1.2 % Basophils % 0.4 % Immature Gran # 0.08 H (0.00-0.04) 10*3/uL Neutrophils # 10.39 H (1.80-7.70) 10*3/uL Lymphocytes # 1.40 (0.90-5.00) 10*3/uL Monocytes # 0.80 (0.20-1.00) 10*3/uL Eosinophils # 0.15 (0.04-0.35) 10*3/uL Basophils # 0.05 (0.00-0.10) 10*3/uL Immature Plt Fraction 3.2 (1.1-6.1) % PT 11.5 (10.0-12.5) sec INR 1.0 (<1.2) APTT 23.7 (22.0-30.0) sec Sodium 133 L (137-145) mmol/L Potassium 3.2 L (3.5-5.1) mmol/L Chloride 99 (98-107) mmol/L Carbon Dioxide 20 L (22-30) mmol/L Anion Gap 14 mmol/L BUN 72 H (7-17) mg/dL Creatinine 2.95 H (0.52-1.04) mg/dL Est GFR (CKD-EPI)AfAm 17 (>60 ml/min/1.73 sqM) Est GFR (CKD-EPI)NonAf 14 (>60 ml/min/1.73 sqM) Glucose 99 (74-99) mg/dL Calcium 9.4 (8.4-10.2) mg/dL Total Bilirubin 0.7 (0.2-1.3) mg/dL AST 24 (14-36) U/L ALT 25 (4-34) U/L Alkaline Phosphatase 132 H (38-126) U/L Creatine Kinase <20 L (30-135) U/L Troponin I (0.000-0.034) ng/mL Total Protein 6.4 (6.3-8.2) g/dL Albumin 3.9 (3.5-5.0) g/dL 11/30/24 Range/Units 13:27 WBC (4.50-10.00) 10*3/uL RBC (4.10-5.20) 10*6/uL Hgb (12.0-15.0) g/dL Hct (37.2-46.3) % MCV (80.0-97.0) fL MCH (27.0-32.0) pg MCHC (32.0-37.0) g/dL Plt Count (140-440) 10*3/uL MPV (9.5-12.2) fL Immature Gran % (Auto) % Neutrophils % % Lymphocytes % % Monocytes % % Eosinophils % % Basophils % % Immature Gran # (0.00-0.04) 10*3/uL Neutrophils # (1.80-7.70) 10*3/uL Lymphocytes # (0.90-5.00) 10*3/uL Monocytes # (0.20-1.00) 10*3/uL Eosinophils # (0.04-0.35) 10*3/uL Basophils # (0.00-0.10) 10*3/uL Immature Plt Fraction (1.1-6.1) % PT (10.0-12.5) sec INR (<1.2) APTT (22.0-30.0) sec Sodium (137-145) mmol/L Potassium (3.5-5.1) mmol/L Chloride (98-107) mmol/L Carbon Dioxide (22-30) mmol/L Anion Gap mmol/L BUN (7-17) mg/dL Creatinine (0.52-1.04) mg/dL Est GFR (CKD-EPI)AfAm (>60 ml/min/1.73 sqM) Est GFR (CKD-EPI)NonAf (>60 ml/min/1.73 sqM) Glucose (74-99) mg/dL Calcium (8.4-10.2) mg/dL Total Bilirubin (0.2-1.3) mg/dL AST (14-36) U/L ALT (4-34) U/L Alkaline Phosphatase (38-126) U/L Creatine Kinase (30-135) U/L Troponin I 0.025 (0.000-0.034) ng/mL Total Protein (6.3-8.2) g/dL Albumin (3.5-5.0) g/dL Disposition Clinical Impression: Transient cerebral ischemia, ESRD (end stage renal disease) on dialysis Disposition: ADMITTED IP TO THIS [facility] Condition: Stable Is patient prescribed a controlled substance at d/c from ED?: No Referrals: Bienvenido Hogue MD [Primary Care Provider] - 1-2 days Time of Disposition: 14:41
[2024-11-30 13:51] LABS: ALT 25 U/L (4-34); AST 24 U/L (14-36); African American GFR (CKD) 17 (>60 ml/min/1.73 sqM); Albumin 3.9 g/dL (3.5-5.0); Alkaline Phosphatase 132 U/L (38-126); Anion Gap 14 mmol/L; Blood Urea Nitrogen 72 mg/dL (7-17); Calcium 9.4 mg/dL (8.4-10.2); Carbon Dioxide 20 mmol/L (22-30); Chloride 99 mmol/L (98-107); Creatine Kinase <20 U/L (30-135); Glucose 99 mg/dL (74-99); Non-African American GFR(CKD) 14 (>60 ml/min/1.73 sqM); Potassium 3.2 mmol/L (3.5-5.1); Sodium 133 mmol/L (137-145); Total Protein 6.4 g/dL (6.3-8.2)
--- NOTE | 2024-11-30 14:23 | XR ---
EXAMINATION TYPE: XR chest 2V DATE OF EXAM: 11/30/2024 1:55 PM COMPARISON: Chest radiographs from 08/23/2024. CLINICAL INDICATION: Female, 79 years old with history of altered mental status; [facility] TECHNIQUE: XR chest 2V Frontal and lateral views of the chest. FINDINGS: Lungs/Pleura: There is no evidence of pleural effusion, focal consolidation, or pneumothorax. Pulmonary vascularity: Pulmonary vascular congestion. Heart/mediastinum: Cardiomediastinal silhouette is unremarkable. Musculoskeletal: No acute osseous pathology. Other findings: Right central venous catheter in satisfactory position projecting over the right atri um. IMPRESSION: Right central venous catheter in satisfactory position. Mild pulmonary edema. [facility], , 11/30/2024 2:21 PM
--- NOTE | 2024-11-30 14:31 | CT ---
EXAMINATION TYPE: CT brain wo con DATE OF EXAM: 11/30/2024 2:06 PM COMPARISON: None. CLINICAL INDICATION: Female, 79 years old with history of Neuro deficit, acute, stroke suspected, dante gorey, weakness TECHNIQUE: Brain: Axial CT images of the brain were obtained with coronal and sagittal reformats created and rev iewed. Contrast used: None. Oral contrast used: None. CT DLP: 1141 mGycm, Automated exposure control for dose reduction was used. FINDINGS: Brain: Extra-axial spaces: No abnormal extra-axial fluid collections. Ventricular system: Dilatation in proportion to cerebral atrophy. Cerebral parenchyma: Cerebral atrophy. No acute intraparenchymal hemorrhage or mass effect. The [place] -white junction is well differentiated. Scattered hypoattenuating areas are seen within the white mat ter. Cerebellum: Unremarkable. Mass effect: No evidence of midline shift. Intracranial vasculature: Atherosclerotic calcifications of the intracranial vessels. Soft tissues: Normal. Calvarium/osseous structures: No depressed skull fracture. Paranasal sinuses and mastoid air cells: Mild scattered paranasal sinus disease. Visualized orbits: Bilateral aphakia IMPRESSION: 1. No acute intracranial process. 2. Nonspecific white matter changes, likely secondary to chronic small vessel ischemic disease. [facility], , 11/30/2024 2:29 PM
[2024-11-30] MEDS ORDERED: NALOXONE 0.4 MG/ML 1 ML VIAL IV PRN (14:37)
[2024-11-30] MEDS: ASPIRIN 325 MG TAB PO STA (15:02)
[2024-11-30] MEDS ORDERED: ALBUTEROL NEBULIZED 2.5 MG/3 ML INHALATION PRN (17:56)
[2024-11-30] MEDS ORDERED: BENZONATATE 100 MG CAP PO PRN (17:56)
[2024-11-30] MEDS ORDERED: LORATADINE 10 MG TAB PO PRN (17:56)
[2024-11-30] MEDS: MONTELUKAST 10 MG TAB PO SCH (21:36)
[2024-11-30] MEDS: ERGOCALCIFEROL 1,250 MCG (50,000 IU) CAPSULE PO SCH (21:36)
[2024-11-30] MEDS: BACLOFEN 10 MG TAB PO SCH (21:36)
[2024-11-30] MEDS: GABAPENTIN 300 MG CAP PO SCH (21:36)
[2024-12-01] MEDS: LEVOTHYROXINE 75 MCG TAB PO SCH (06:35)
[2024-12-01] MEDS: SODIUM BICARBONATE TAB 650 MG TAB PO SCH (08:09)
[2024-12-01] MEDS: FAMOTIDINE 20 MG TAB PO SCH (08:09)
[2024-12-01] MEDS: POTASSIUM CHLORIDE ER 20 MEQ TAB.ER PO SCH (08:10)
[2024-12-01] MEDS: CALCIUM ACETATE 667 MG TAB PO SCH (08:10)
[2024-12-01] MEDS: BUMETANIDE 1 MG TAB PO SCH (10:18)
[2024-12-01] MEDS: NON FORMULARY DRUG (Mirabegron [Myrbetriq] 25 MG Tab.Er.24h) PO SCH (10:19)
--- NOTE | 2024-12-01 13:01 | P.NPCON ---
History of Present Illness - Reason for Consult end stage renal disease - History of Present Illness Patient is an 79-year-old female with end-stage renal disease maintained on hemodialysis on Monday schedule. She was admitted to the hospital as she was noticed to have left facial droop. Brain CT was negative and facial droop has improved today. No significant hypotension noted on initial admission. Patient blood pressure usually runs on the lower side and she is maintained on midodrine. No history of fever chills nausea vomiting or abdominal pain. Patient is complaining of mild shortness of breath. No complaints of chest pain. Past Medical History Past Medical History: Asthma, Cancer, COPD, Dialysis, Osteoarthritis (OA), Renal Disease, Thyroid Disorder Additional Past Medical History / Comment(s): ESRD- hemodialysis MOWEFR 3 1/2 hours, dialysis cath rt chest, kidney stones and UTI, hx lymphedema, hx pulmonar y fibrosis, hx graves, hx rt foot torn ligaments, hx osteoporosis, hypotension; vitamin D deficiency, hypocalcemia, SKIN CANCER REMOVED FROM BRIDGE OF NOSE., PMR - polymyalgia rhematalia; currently bruised from neck to right breast History of Any Multi-Drug Resistant Organisms: CRE Date of last positivie culture/infection: 10/16/18 MDRO-CRE PER [facility]HS NOT [facility] MDRO Source:: Urine Past Surgical History: Bariatric Surgery, Orthopedic Surgery Additional Past Surgical History / Comment(s): hx bariatric surgery-Kye En Y,lung biopsy,radioactive iodine-tx thyroid,rectal and bladder suspensions,vaginal surgery as a child,partha carpel tunnel,rt knee meniscus repair,D&C x3, left arm fistula 02/08/19(not working), left broken wrist, broken right wrist Past Anesthesia/Blood Transfusion Reactions: Previous Problems w/ Anesthesia Additional Past Anesthesia/Blood Transfusion Reaction / Comment(s): decrease bp with anesthesia, no problems with prior blood transfusion Past Psychological History: No Psychological Hx Reported Smoking Status: Never smoker Past Alcohol Use History: None Reported Past Drug Use History: None Reported - Past Family History Father Family Medical History: Pulmonary Embolus Additional Family Medical History / Comment(s): . Mother Family Medical History: Cancer Additional Family Medical History / Comment(s): colon ca, bone ca Sister(s) Family Medical History: Cancer Additional Family Medical History / Comment(s): kidney ca Daughter(s) Additional Family Medical History / Comment(s): lymphedema in legs Brother(s) Family Medical History: Cancer Additional Family Medical History / Comment(s): skin cancer Medications and Allergies Home Medications Medication Instructions Recorded Confirmed Type Montelukast [Singulair] 10 mg PO HS 08/23/18 11/30/24 History Omeprazole 40 mg PO AC-BID 11/19/18 11/30/24 History Mirabegron [Myrbetriq] 25 mg PO DAILY 01/25/21 11/30/24 History Albuterol Inhaler [Ventolin Hfa 2 puff INHALATION RT-Q6H PRN 02/07/23 11/30/24 History Inhaler] Bumetanide [BUMEX] 1 mg PO DAILY 10/17/23 11/30/24 History Ergocalciferol [Vitamin D2 (1250 1,250 mcg PO SUTUTHSA 10/17/23 11/30/24 History Mcg = [id number] Iu)] Gabapentin [Neurontin] 300 mg PO BID 10/17/23 11/30/24 History Sodium Bicarbonate Tab 1,300 mg PO BID@0800,1200 04/15/24 11/30/24 History Levothyroxine Sodium [Synthroid] 150 mcg PO DAILY 04/28/24 11/30/24 History Acetaminophen Tab [Tylenol] 650 mg PO Q6HR PRN tab 04/30/24 11/30/24 Rx Baclofen 5 mg PO BID 08/16/24 11/30/24 History Benzonatate [Tessalon Perles] 100 mg PO TID PRN 08/16/24 11/30/24 History Magnesium Chloride W/ D 1 tab PO DAILY 08/16/24 11/30/24 History Loratadine 10 mg PO DAILY PRN #0 08/26/24 11/30/24 Rx Calcium Acetate [Phoslo] 2,001 mg PO TID-W/MEALS 11/30/24 11/30/24 History FLUoxetine HCL [PROzac] 40 mg PO DAILY 11/30/24 11/30/24 History Potassium Chloride ER [K-Dur 20] 20 meq PO DAILY 11/30/24 11/30/24 History Allergies Allergy/AdvReac Type Severity Reaction Status Date / Time adhesive tape Allergy Rash/Hives Verified 11/30/24 15:34 Sulfa (Sulfonamide Allergy Itching Verified 11/30/24 15:34 Antibiotics) codeine AdvReac Nausea Verified 11/30/24 15:34 tetracycline AdvReac Nausea & Verified 11/30/24 15:34 Vomiting Physical Exam Vitals: Vital Signs Temp Pulse Pulse Resp BP BP Pulse Ox 12/01/24 07:35 97.8 F 67 17 97/57 91 L 12/01/24 01:22 97.4 F L 66 16 106/64 96 11/30/24 19:22 97.8 F 67 18 120/68 96 11/30/24 17:07 97.8 F 78 20 120/78 95 11/30/24 15:00 97.9 F 65 65 16 121/72 108/67 99 11/30/24 14:25 63 18 115/67 91 L 11/30/24 12:59 97.7 F 75 16 101/62 95 Intake and Output 11/30/24 12/01/24 12/01/24 22:59 06:59 14:59 Other: # Voids 1 3 Weight 56 kg Patient is awake, comfortable, no acute distress Examination of the heart S1 and S2 Examination of the lungs bilateral breath sounds are heard Abdomen is soft nontender Examination lower extremities shows trace edema with chronic skin changes BEE ROBBER exam grossly intact Results - Lab Results Most recent lab results Calcium 9.4 mg/dL (8.4-10.2) 11/30/24 13:27 11/30/24 13:27 11/30/24 13:27 Assessment and Plan Assessment: 1. End-stage renal disease on hemodialysis on Monday schedule 2. Facial droop, currently improved. Most likely TIA. CT of the brain was negative 3. CKD mineral bone disorder 4. Chronic hypokalemia maintained on potassium supplementation Plan: Hemodialysis in a.m. Continue with potassium supplementation Neurology consult
--- NOTE | 2024-12-01 15:49 | US ---
EXAMINATION TYPE: US carotid duplex BILAT DATE OF EXAM: 12/01/2024 COMPARISON: None CLINICAL INDICATION: Female, 79 years old with history of TIA; Memory changes, otherwise no relevant history and signs or symptoms. Additional History: .... TECHNIQUE: Grayscale, color Doppler and spectral Doppler evaluation of the bilateral carotid systems and vertebral arteries. Indirect Doppler criteria was utilized. FINDINGS: EXAM MEASUREMENTS: RIGHT: Peak Systolic Velocity (PSV) cm/sec ----- Right CCA: 100 ----- Right ICA: 88 ----- Right ECA: 112 ICA/CCA ratio: 0.9 RIGHT: End Diastole cm/sec ----- Right CCA: 24 ----- Right ICA: 32 ----- Right ECA: 14 LEFT: Peak Systolic Velocity (PSV) cm/sec ----- Left CCA: 79 ----- Left ICA: 74 ----- Left ECA: 97 ICA/CCA ratio: 0.9 LEFT: End Diastole cm/sec ----- Left CCA: 23 ----- Left ICA: 27 ----- Left ECA: 11 VERTEBRALS (direction of flow): Right Vertebral: Antegrade Left Vertebral: Antegrade Rhythm: Normal BASKET TURNER NOTES: No intimal thickening, elevated velocities, or plaque seen. Color Doppler imaging shows patency with blood flow throughout the carotid artery. Spectral waveforms are within normal limits. IMPRESSION: Right: No hemodynamically significant stenosis. Left: No hemodynamically significant stenosis. Criteria for Assigning % of Stenosis / Diameter reduction (Estimation based on the indirect measurements of the internal carotid artery velocities (ICA PSV). 1. Normal (no stenosis)=ICA PSV < 180 cm/s: ratio < 2.0: ICA EDV<40 cm/s. 2. Less than 50% stenosis=ICA PSV < 180 cm/s: ratio < 2.0: ICA EDV<40 cm/s. 3. 50 to 69% stenosis=ICA PSV of 180 to 230 cm/s: ration 2.0 ? 4.0: ICA EDV 40-100 cm/s. PSV 125-180 cm/sec and ICA/CCA PSV Ratio ? 2.0 is also consistent with 50-69% stenosis 4. Greater than 70% stenosis to near occlusion= ICA PSV > 230 cm/s: ratio > 4.0: ICA EDV > 100 cm/s. 5. Near occlusion= ICA PSV velocities may be low or undetectable: variable ratio and ICA EDV. 6. Total occlusion=unable to detect flow. [facility], , 12/01/2024 3:46 PM
[2024-12-01] MEDS: ASPIRIN 81 MG PO SCH (16:42)
[2024-12-01] MEDS: ACETAMINOPHEN TAB 325 MG TAB PO PRN (20:33)
--- NOTE | 2024-12-02 03:40 | P.CNNES ---
History of Present Illness Consult date: 12/01/24 Requesting physician: Alex Modi Reason for Consult: TIA History of Present Illness: Patient is a 79-year-old right-handed female, with history of ESRD, on hemodialysis, came to the hospital yesterday at 12:46 PM for possible TIA. Patient gets hemodialysis every Monday and Monday. However on Monday she has some relatives come over, therefore she postponed it for Monday. She went for hemodialysis on Monday (yesterday) at 12:20 PM. Even prior to going to the hemodialysis at 11:30 AM when she was brushing her teeth, she noticed droopy face. her also noticed it. When they went to the hemodialysis, patient was noted to have trouble with speech, with some slurring. Therefore hemodialysis was canceled, and she was recommended to go to the ER. Patient also noticed drooling out of right corner of the mouth. She denied any focal numbness or tingling of the arms or legs although her arms are hurting. Yesterday she was using walker to go to the hemodialysis. The day before she stayed in the bed, couldn't stand and walk. Vital signs on arrival blood pressure 101/62, pulse of 75 temperature 97.7. Blood test shows WBC 12.87, hemoglobin 12.6 with elevated MCV 100.0. Platelets 101. PT PTT normal. Sodium 133 potassium 3.2, BUN 72, creatinine 2.95. Hepatic panel is normal, CK normal troponin negative. EKG showed sinus rhythm. Chest x-ray revealed right central venous catheter. Mild pulmonary edema. CT head showed no acute intracranial process. Nonspecific white matter changes, likely secondary to chronic small vessel ischemic disease. I personally reviewed CT head, agree with the findings. On my review, there is significant somewhat confluent white matter disease particularly adjacent to the frontal and occipital horns of lateral ventricles. No acute process. Patient states that her neurological symptoms stayed overnight yesterday, and she went to bed. This morning she woke up and all symptoms have resolved. Patient has been seen by myself on 07/22/2019 for episodic headache. Patient's home medications include Myrbetriq, albuterol, gabapentin 3 mg twice daily, Bumex, levothyroxine, baclofen potassium and Prozac. Patient does not take any antiplatelet medication. Patient says that for last 6 months she has been having memory issues, getting worse. She forgets birthdays of the kids in this slurred speech comes and goes. Patient lives with her . patient denies history of tobacco or alcohol use. No hypertension or diabetes. She has hemodialysis going on for 2 years. She was off dialysis for several months but now back on it for last 9 months. Review of Systems all pertinent positive and negative review of systems as in the HPI. Otherwise unremarkable. Past Medical History Past Medical History: Asthma, Cancer, COPD, Dialysis, Osteoarthritis (OA), Renal Disease, Thyroid Disorder Additional Past Medical History / Comment(s): ESRD- hemodialysis MOWEFR 3 1/2 hours, dialysis cath rt chest, kidney stones and UTI, hx lymphedema, hx pulmonary fibrosis, hx graves, hx rt foot torn ligaments, hx osteoporosis, hypotension; vitamin D deficiency, hypocalcemia, SKIN CANCER REMOVED FROM BRIDGE OF NOSE., PMR - polymyalgia rhematalia; currently bruised from neck to right breast History of Any Multi-Drug Resistant Organisms: CRE Date of last positivie culture/infection: 10/16/18 [facility] MDRO Source:: Urine Past Surgical History: Bariatric Surgery, Orthopedic Surgery Additional Past Surgical History / Comment(s): hx bariatric surgery-Kye En Y,lung biopsy,radioactive iodine-tx thyroid,rectal and bladder suspensions,vaginal surgery as a child,partha carpel tunnel,rt knee meniscus repair,D&C x3, left arm fistula 02/08/19(not working), left broken wrist, broken right wrist Past Anesthesia/Blood Transfusion Reactions: Previous Problems w/ Anesthesia Additional Past Anesthesia/Blood Transfusion Reaction / Comment(s): decrease bp with anesthesia, no problems with prior blood transfusion Past Psychological History: No Psychological Hx Reported Smoking Status: Never smoker Past Alcohol Use History: None Reported Past Drug Use History: None Reported - Past Family History Father Family Medical History: Pulmonary Embolus Additional Family Medical History / Comment(s): . Mother Family Medical History: Cancer Additional Family Medical History / Comment(s): colon ca, bone ca Sister(s) Family Medical History: Cancer Additional Family Medical History / Comment(s): kidney ca Daughter(s) Additional Family Medical History / Comment(s): lymphedema in legs Brother(s) Family Medical History: Cancer Additional Family Medical History / Comment(s): skin cancer Medications and Allergies Home Medications Medication Instructions Recorded Confirmed Type Montelukast [Singulair] 10 mg PO HS 08/23/18 11/30/24 History Omeprazole 40 mg PO AC-BID 11/19/18 11/30/24 History Mirabegron [Myrbetriq] 25 mg PO DAILY 01/25/21 11/30/24 History Albuterol Inhaler [Ventolin Hfa 2 puff INHALATION RT-Q6H PRN 02/07/23 11/30/24 History Inhaler] Bumetanide [BUMEX] 1 mg PO DAILY 10/17/23 11/30/24 History Ergocalciferol [Vitamin D2 (1250 1,250 mcg PO SUTUTHSA 10/17/23 11/30/24 History Mcg = 47154 Iu)] Gabapentin [Neurontin] 300 mg PO BID 10/17/23 11/30/24 History Sodium Bicarbonate Tab 1,300 mg PO BID@0800,1200 04/15/24 11/30/24 History Levothyroxine Sodium [Synthroid] 150 mcg PO DAILY 04/28/24 11/30/24 History Acetaminophen Tab [Tylenol] 650 mg PO Q6HR PRN tab 04/30/24 11/30/24 Rx Baclofen 5 mg PO BID 08/16/24 11/30/24 History Benzonatate [Tessalon Perles] 100 mg PO TID PRN 08/16/24 11/30/24 History Magnesium Chloride W/ D 1 tab PO DAILY 08/16/24 11/30/24 History Loratadine 10 mg PO DAILY PRN #0 08/26/24 11/30/24 Rx Calcium Acetate [Phoslo] 2,001 mg PO TID-W/MEALS 11/30/24 11/30/24 History FLUoxetine HCL [PROzac] 40 mg PO DAILY 11/30/24 11/30/24 History Potassium Chloride ER [K-Dur 20] 20 meq PO DAILY 11/30/24 11/30/24 History Allergies Allergy/AdvReac Type Severity Reaction Status Date / Time adhesive tape Allergy Rash/Hives Verified 11/30/24 15:34 Sulfa (Sulfonamide Allergy Itching Verified 11/30/24 15:34 Antibiotics) codeine AdvReac Nausea Verified 11/30/24 15:34 tetracycline AdvReac Nausea & Verified 11/30/24 15:34 Vomiting Physical Examination - Vital Signs Vital Signs: Vital Signs Temp Pulse Pulse Resp BP BP Pulse Ox 12/01/24 07:35 97.8 F 67 17 97/57 91 L 12/01/24 01:22 97.4 F L 66 16 106/64 96 11/30/24 19:22 97.8 F 67 18 120/68 96 11/30/24 17:07 97.8 F 78 20 120/78 95 11/30/24 15:00 97.9 F 65 65 16 121/72 108/67 99 11/30/24 14:25 63 18 115/67 91 L Intake and Output 11/30/24 12/01/24 12/01/24 22:59 06:59 14:59 Other: # Voids 1 3 Weight 56 kg Patient is an elderly female, very pleasant, in no acute distress. Patient is alert awake oriented to time place and person. Speech and language functions are normal. Patient can name and repeat very well. No aphasia or dys arthria. Attention, concentration and fund of knowledge is adequate. On cranial nerve examination, pupils are equal, round and reacting to light, visual vaughan are full on confrontation, with no neglect on double simultaneous stimulation. Extraocular muscles are intact with no nystagmus. Face is symmetric, tongue protrudes to the midline. Palatal elevation and sensation normal, hearing and shoulder shrug normal, facial sensation normal. On muscle strength testing, there is no pronator drift and the strength is normal in arms and legs distally and proximally. Deep tendon reflexes are symmetric 1+ and plantars downgoing. Sensory to touch is equal with no neglect on double simultaneous stimulation. Cerebellar function showed no ataxia for [id number] testing. No dysdiadochokinesia. No ataxia for [id number] testing on either side. Tone and bulk of muscles normal. Gait deferred.. On general examination, there is no carotid bruit or murmur, S1-S2 audible. Chest is clear on consultation. Abdomen is soft nontender. No organomegaly, bowel sounds present. Peripheral pulses are present. No peripheral edema. Results - Laboratory Findings CBC and BMP: 11/30/24 13:27 11/30/24 13:27 Abnormal Lab Findings: Abnormal Labs 11/30/24 11/30/24 13:27 13:27 WBC 12.87 H RBC 3.83 L MCV 100.0 H MCH 32.9 H Plt Count 101 L Immature Gran # 0.08 H Neutrophils # 10.39 H Sodium 133 L Potassium 3.2 L Carbon Dioxide 20 L BUN 72 H Creatinine 2.95 H Alkaline Phosphatase 132 H Creatine Kinase <20 L Assessment and Plan Assessment: * Possible TIA manifesting with facial droop, slurred speech and drooling. Her symptoms lasted for half a day and then resolved overnight. At present all symptoms have resolved. Current NIH stroke scale is 0. * End-stage renal disease on hemodialysis * osteoarthritis Plan: * Patient will undergo workup for TIA. All symptoms have resolved. Current NIH stroke scale is 0. Patient not a candidate for TNK * 2-D echo with bubble study to rule out PFO * Carotid Doppler, rule out stenosis * Fasting a.m. lipid panel * Hemoglobin A1c * Permissive hypertension for next 24-48 hours * Start aspirin 81 mg daily. Patient has received a loading dose of aspirin 325 mg in the ER. Patient was not on any antiplatelet medication at home. * Neuro checks every 4 hours. * Telemetry monitoring rule out any arrhythmia * PT, OT, speech therapy * DVT prophylaxis: Heparin 5000 units subcu every 12 hours * Dr. Adalberto Gomes to resume neurology service in the morning. Thank you for the consult.
[2024-12-02 08:40] LABS: Cholesterol 132.00 mg/dL (0.00-200.00); HDL Cholesterol 69.80 mg/dL (40.00-60.00); LDL Cholesterol,Calculated 41.0 mg/dL (0.0-131.0); Triglycerides 106.00 mg/dL (0.00-149.00); VLDL Calculation 21.20 mg/dL (5.00-40.00)
--- NOTE | 2024-12-02 08:55 | P.HPIM ---
History of Present Illness This is a pleasant 79 years old female with past medical history of end-stage renal disease on Monday, lymphedema pulmonary fibrosis osteoporosis hypotension and hypocalcemia polymyalgia rheumatica Was sent from dialysis because of subtle left facial droop with no headache dizziness weakness or numbness because of concerns for stroke Patient awake alert looks comfortable denies any other specific complaint like no chest pain pain or dyspnea. No abdominal pain vomiting or diarrhea. No fever, blood pressure low normal but asymptomatic saturating 98% on 2 L oxygen via nasal cannula WBC 12.8 Platelet count 101 Sodium 133, potassium 3.2 creatinine 2.9. AST and ALT within the reference range. CT of the brain is negative for acute process, cerebral atrophy Chest x-ray venous catheter in place, mild pulmonary edema Patient started on aspirin 81 mg by neurologist Past Medical History Past Medical History: Asthma, Cancer, COPD, Dialysis, Osteoarthritis (OA), Renal Disease, Thyroid Disorder Additional Past Medical History / Comment(s): ESRD- hemodialysis MOWEFR 3 1/2 hours, dialysis cath rt chest, kidney stones and UTI, hx lymphedema, hx pulmonary fibrosis, hx graves, hx rt foot torn ligaments, hx osteoporosis, hypo tension; vitamin D deficiency, hypocalcemia, SKIN CANCER REMOVED FROM BRIDGE OF NOSE., PMR - polymyalgia rhematalia; currently bruised from neck to right breast History of Any Multi-Drug Resistant Organisms: CRE Date of last positivie culture/infection: 10/16/18 MDRO-CRE PER [facility] NOT [facility] MDRO Source:: Urine Past Surgical History: Bariatric Surgery, Orthopedic Surgery Additional Past Surgical History / Comment(s): hx bariatric surgery-Kye En Y,lung biopsy,radioactive iodine-tx thyroid,rectal and bladder suspensions,vaginal surgery as a child,partha carpel tunnel,rt knee meniscus repair,D&C x3, left arm fistula 02/08/19(not working), left broken wrist, broken right wrist Past Anesthesia/Blood Transfusion Reactions: Previous Problems w/ Anesthesia Additional Past Anesthesia/Blood Transfusion Reaction / Comment(s): decrease bp with anesthesia, no problems with prior blood transfusion Past Psychological History: No Psychological Hx Reported Smoking Status: Never smoker Past Alcohol Use History: None Reported Past Drug Use History: None Reported - Past Family History Father Family Medical History: Pulmonary Embolus Additional Family Medical History / Comment(s): . Mother Family Medical History: Cancer Additional Family Medical History / Comment(s): colon ca, bone ca Sister(s) Family Medical History: Cancer Additional Family Medical History / Comment(s): kidney ca Daughter(s) Additional Family Medical History / Comment(s): lymphedema in legs Brother(s) Family Medical History: Cancer Additional Family Medical History / Comment(s): skin cancer Medications and Allergies Home Medications Medication Instructions Recorded Confirmed Type Montelukast [Singulair] 10 mg PO HS 08/23/18 11/30/24 History Omeprazole 40 mg PO AC-BID 11/19/18 11/30/24 History Mirabegron [Myrbetriq] 25 mg PO DAILY 01/25/21 11/30/24 History Albuterol Inhaler [Ventolin Hfa 2 puff INHALATION RT-Q6H PRN 02/07/23 11/30/24 History Inhaler] Bumetanide [BUMEX] 1 mg PO DAILY 10/17/23 11/30/24 History Ergocalciferol [Vitamin D2 (1250 1,250 mcg PO SUTUTHSA 10/17/23 11/30/24 History Mcg = 55193 Iu)] Gabapentin [Neurontin] 300 mg PO BID 10/17/23 11/30/24 History Sodium Bicarbonate Tab 1,300 mg PO BID@0800,1200 04/15/24 11/30/24 History Levothyroxine Sodium [Synthroid] 150 mcg PO DAILY 04/28/24 11/30/24 History Acetaminophen Tab [Tylenol] 650 mg PO Q6HR PRN tab 04/30/24 11/30/24 Rx Baclofen 5 mg PO BID 08/16/24 11/30/24 History Benzonatate [Tessalon Perles] 100 mg PO TID PRN 08/16/24 11/30/24 History Magnesium Chloride W/ D 1 tab PO DAILY 08/16/24 11/30/24 History Loratadine 10 mg PO DAILY PRN #0 08/26/24 11/30/24 Rx Calcium Acetate [Phoslo] 2,001 mg PO TID-W/MEALS 11/30/24 11/30/24 History FLUoxetine HCL [PROzac] 40 mg PO DAILY 11/30/24 11/30/24 History Potassium Chloride ER [K-Dur 20] 20 meq PO DAILY 11/30/24 11/30/24 History Allergies Allergy/AdvReac Type Severity Reaction Status Date / Time adhesive tape Allergy Rash/Hives Verified 11/30/24 15:34 Sulfa (Sulfonamide Allergy Itching Verified 11/30/24 15:34 Antibiotics) codeine AdvReac Nausea Verified 11/30/24 15:34 tetracycline AdvReac Nausea & Verified 11/30/24 15:34 Vomiting Physical Exam Vitals: Vital Signs Temp Pulse Pulse Resp BP BP Pulse Ox 11/30/24 19:22 97.8 F 67 18 120/68 96 11/30/24 17:07 97.8 F 78 20 120/78 95 11/30/24 15:00 97.9 F 65 65 16 121/72 108/67 99 11/30/24 14:25 63 18 115/67 91 L 11/30/24 12:59 97.7 F 75 16 101/62 95 Intake and Output 11/30/24 11/30/24 11/30/24 06:59 14:59 22:59 Other: # Voids 1 Weight 56 kg 56 kg Results CBC & Chem 7: 11/30/24 13:27 11/30/24 13:27 Labs: Abnormal Lab Results - Last 24 Hours (Table) 11/30/24 11/30/24 Range/Units 13:27 13:27 WBC 12.87 H (4.50-10.00) 10*3/uL RBC 3.83 L (4.10-5.20) 10*6/uL MCV 100.0 H (80.0-97.0) fL MCH 32.9 H (27.0-32.0) pg Plt Count 101 L (140-440) 10*3/uL Immature Gran # 0.08 H (0.00-0.04) 10*3/uL Neutrophils # 10.39 H (1.80-7.70) 10*3/uL Sodium 133 L (137-145) mmol/L Potassium 3.2 L (3.5-5.1) mmol/L Carbon Dioxide 20 L (22-30) mmol/L BUN 72 H (7-17) mg/dL Creatinine 2.95 H (0.52-1.04) mg/dL Alkaline Phosphatase 132 H (38-126) U/L Creatine Kinase <20 L (30-135) U/L Thrombosis Risk Factor Assmnt - Choose All That Apply Any of the Below Risk Factors Present?: Yes Each Factor Represents 1 point: Abnormal pulmonary function (COPD) Other Risk Factors: Yes Each Risk Factor Represents 3 Points: Age 75 years or older Other congenital or acquired thrombophilia - If yes, enter type in comment: No Thrombosis Risk Factor Assessment Total Risk Factor Score: 4 Thrombosis Risk Factor Assessment Level: Moderate Risk Assessment and Plan Assessment: Very mild left facial droop concerning for stroke End-stage renal disease on hemodialysis Pulmonary fibrosis Lymphedema Borderline hypotension History of polymyalgia rheumatica Plan: Continue with aspirin per neurologist Neurology service consult on the case Continue with dialysis per independent living instructor Resume home medication GI DVT prophylaxis Further based on the clinical course
--- NOTE | 2024-12-02 08:56 | P.PN ---
Subjective This is a pleasant 79 years old female with past medical history of end-stage renal disease on Monday, lymphedema pulmonary fibrosis osteoporosis hypotension and hypocalcemia polymyalgia rheumatica Was sent from dialysis because of subtle left facial droop with no headache dizziness weakness or numbness because of concerns for stroke Patient awake alert looks comfortable denies any other specific complaint like no chest pain pain or dyspnea. No abdominal pain vomiting or diarrhea. No fever, blood pressure low normal but asymptomatic saturating 98% on 2 L oxygen via nasal cannula WBC 12.8 Platelet count 101 Sodium 133, potassium 3.2 creatinine 2.9. AST and ALT within the reference range. CT of the brain is negative for acute process, cerebral atrophy Chest x-ray venous catheter in place, mild pulmonary edema Patient started on aspirin 81 mg by neurologist 12/01 Patient with no new symptoms The subtle left facial droop not noticed today No other new complaints Objective - Vital Signs Vital signs: Vital Signs Temp 97.8 F 12/01/24 07:35 Pulse 67 12/01/24 07:35 Resp 17 12/01/24 07:35 BP 97/57 12/01/24 07:35 Pulse Ox 91 L 12/01/24 07:35 FiO2 Intake & Output 11/30/24 12/01/24 12/01/24 18:59 06:59 18:59 Weight 56 kg Other: # Voids 3 - Exam GENERAL: The patient is alert and oriented x3, not in any acute distress. Well developed, well nourished. HEENT: Pupils are round and equally reacting to light. EOMI. No scleral icterus. No conjunctival pallor. Normocephalic, atraumatic. No pharyngeal erythema. No thyromegaly. CARDIOVASCULAR: S1 and S2 present. No murmurs, rubs, or gallops. PULMONARY: Chest is clear to auscultation, no wheezing , no crackles. ABDOMEN: Soft, nontender, nondistended, normoactive bowel sounds. No palpable organomegaly. MUSCULOSKELETAL: No joint swelling or deformity. EXTREMITIES: No cyanosis, clubbing, or pedal edema. NEUROLOGICAL: Gross neurological examination did not reveal any focal deficits. SKIN: No rashes. no petechiae. - Labs CBC & Chem 7: 11/30/24 13:27 11/30/24 13:27 Labs: Abnormal Lab Results - Last 24 Hours (Table) 11/30/24 11/30/24 Range/Units 13:27 13:27 WBC 12.87 H (4.50-10.00) 10*3/uL RBC 3.83 L (4.10-5.20) 10*6/uL MCV 100.0 H (80.0-97.0) fL MCH 32.9 H (27.0-32.0) pg Plt Count 101 L (140-440) 10*3/uL Immature Gran # 0.08 H (0.00-0.04) 10*3/uL Neutrophils # 10.39 H (1.80-7.70) 10*3/uL Sodium 133 L (137-145) mmol/L Potassium 3.2 L (3.5-5.1) mmol/L Carbon Dioxide 20 L (22-30) mmol/L BUN 72 H (7-17) mg/dL Creatinine 2.95 H (0.52-1.04) mg/dL Alkaline Phosphatase 132 H (38-126) U/L Creatine Kinase <20 L (30-135) U/L Assessment and Plan Assessment: Very mild left facial droop concerning for stroke End-stage renal disease on hemodialysis Pulmonary fibrosis Lymphedema Borderline hypotension History of polymyalgia rheumatica Plan: Continue with aspirin per neurologist Neurology service consult on the case Continue with dialysis per mangle press catcher Resume home medication GI DVT prophylaxis Further based on the clinical course
--- NOTE | 2024-12-02 09:32 | P.PN ---
Subjective Patient is seen in follow-up for end-stage renal disease. She is maintained on hemodialysis on Monday schedule. No active complaints. Vital signs are stable. General: No acute distress. HEENT: Head exam is unremarkable. On nasal cannula. LUNGS: No audible rhonchi or wheezes. HEART: Rate and Rhythm are regular. ABDOMEN: Nontender. EXTREMITITES: Edema noted. Chronic lymphedema. Objective - Vital Signs Vital signs: Vital Signs Temp 97.9 F 12/02/24 01:16 Pulse 64 12/02/24 07:00 Resp 17 12/02/24 07:00 BP 101/65 12/02/24 07:00 Pulse Ox 98 12/02/24 08:45 FiO2 Intake & Output 12/01/24 12/02/24 12/02/24 18:59 06:59 18:59 Intake Total 118 Output Total 200 800 Balance -82 -800 Intake: Oral 118 Output: Urine 200 800 Other: # Voids 2 # Bowel Movements 1 - Labs CBC & Chem 7: 11/30/24 13:27 11/30/24 13:27 Labs: Abnormal Lab Results - Last 24 Hours (Table) 11/30/24 Range/Units 13:27 HDL Cholesterol 69.80 H (40.00-60.00) mg/dL Assessment and Plan Plan: Assessment: 1. End-stage renal disease maintained on hemodialysis on Monday schedule. 2. Facial droop with concern for TIA. 3. Chronic kidney disease mineral bone disease maintained on PhosLo. 4. Chronic hypokalemia maintained on potassium supplementation. 5. Metabolic acidosis secondary to chronic kidney disease. On oral bicarb. Plan: Hemodialysis today. Follow-up echocardiogram. Add midodrine. Decrease dose of gabapentin. Maintain Bumex.
[2024-12-02] MEDS: MIDODRINE 5 MG TAB PO SCH (10:46)
[2024-12-02] MEDS: HEPARIN SODIUM,PORCINE 5,000 UNIT/ML 1 ML VIAL SQ SCH (13:49)
--- NOTE | 2024-12-02 16:04 | P.PN ---
Subjective Progress Note Date: 12/02/24 I am seeing the patient for the first time during this hospital visit. Please refer to Dr. Lambert's note for further details. Patient states she presents to the hospital since she was having worsening edema of the lower extremity was hypotensive. She did acknowledge that she had transient episode of left facial droop and slurring of the speech which has resolved. She is currently getting dialysis. Objective - Vital Signs Vital signs: Vital Signs Temp 98.0 F 12/02/24 14:25 Pulse 61 12/02/24 14:25 Resp 17 12/02/24 14:25 BP 121/74 12/02/24 14:25 Pulse Ox 100 12/02/24 14:25 FiO2 Intake & Output 12/01/24 12/02/24 12/02/24 18:59 06:59 18:59 Intake Total 118 240 Output Total 200 800 Balance -82 -800 240 Intake: Oral 118 240 Output: Urine 200 800 Other: # Voids 2 1 # Bowel Movements 1 - Exam General: Laying in bed and is not in acute distress. Is currently getting dialysis. Neuro: The patient is awake alert oriented to self place and time. Is following simple commands. No aphasia. The pupils are round about 3 mm and reactive to light. Visual vaughan are full to confrontation. Extraocular movements intact no nystagmus. No facial weakness. No dysarthria Motor: The strength in the uppers are 5 out of 5. In the lowers was deferred since upon lightly touching the lower extremity the patient was in pain and did not want to be assessed. She has chronic lymphedema. - Labs CBC & Chem 7: 11/30/24 13:27 11/30/24 13:27 Labs: Abnormal Lab Results - Last 24 Hours (Table) 11/30/24 Range/Units 13:27 HDL Cholesterol 69.80 H (40.00-60.00) mg/dL Assessment and Plan Assessment: * Possible TIA manifesting with facial droop, slurred speech and drooling. Her symptoms lasted for half a day and then resolved overnight. At present all symptoms have resolved. Current NIH stroke scale is 0. * End-stage renal disease on hemodialysis * osteoarthritis Plan: * 2-D echo with bubble study to rule out PFO * Carotid Doppler: No hemodynamically significant stenosis * Fasting a.m. lipid panel: Triglycerides 106, cholesterol is 132, LDL is 41 and HDL is 69. * Hemoglobin A1c: 5.3 * Permissive hypertension for next 24 hours * Start aspirin 81 mg daily. Patient has received a loading dose of aspirin 325 mg in the ER. Patient was not on any antiplatelet medication at home. * Neuro checks every 4 hours. * Telemetry monitoring rule out any arrhythmia * PT, OT, speech therapy * DVT prophylaxis: Heparin 5000 units subcu every 12 hours Time with Patient: Less than 30
[2024-12-02] MEDS: GABAPENTIN 100 MG CAP PO SCH (20:16)
--- NOTE | 2024-12-03 04:46 | P.PN ---
Subjective Progress Note Date: 12/02/24 This is a pleasant 79 years old female with past medical history of end-stage renal disease on Monday, lymphedema pulmonary fibrosis osteoporosis hypotension and hypocalcemia polymyalgia rheumatica Was sent from dialysis because of subtle left facial droop with no headache dizziness weakness or numbness because of concerns for stroke Patient awake alert looks comfortable denies any other specific complaint like no chest pain pain or dyspnea. No abdominal pain vomiting or diarrhea. No fever, blood pressure low normal but asymptomatic saturating 98% on 2 L oxygen via nasal cannula WBC 12.8 Platelet count 101 Sodium 133, potassium 3.2 creatinine 2.9. AST and ALT within the reference range. CT of the brain is negative for acute process, cerebral atrophy Chest x-ray venous catheter in place, mild pulmonary edema Patient started on aspirin 81 mg by neurologist 12/01 Patient with no new symptoms The subtle left facial droop not noticed today No other new complaints 12/02/2024 Patient is seen and evaluated in follow-up continues to report generalized wea kness and currently receiving hemodialysis following. Patient to be evaluated by PT/OT therapy to discuss discharge planning. Patient is afebrile with no reports of chest pain or shortness of breath. Patient is wearing oxygen but denies any shortness of breath. Patient has been tolerating diet with not much oral intake and reports not much of an appetite. Will await PT/OT therapy evaluation and discuss with social work regarding discharge planning. Review of systems: Constitutional: No reports of fatigue, fever, or chills Cardiovascular: No reports of chest pain or palpitations Respiratory: No reports of shortness of breath or cough GI: No reports of nausea, no reports of vomiting, no diarrhea : No reports of dysuria or retention Neurovascular: reports of generalized weakness All medications have been reviewed PHYSICAL EXAMINATION: GENERAL: The patient is alert and oriented x3, Well developed, ill-appearing, elderly appearing, thin built HEENT: Pupils are round and equally reacting to light. EOMI. no scleral icterus. No conjunctival pallor. Normocephalic, atraumatic. No pharyngeal erythema. No thyromegaly. CARDIOVASCULAR: S1 and S2 muffled PULMONARY: diminished breath sounds bilaterally with no wheezing or rhonchi noted. ABDOMEN: soft. Nontender on exam. Thin. Non-distended, normoactive bowel sounds. No palpable organomegaly. MUSCULOSKELETAL: No joint swelling or deformity. EXTREMITIES: No cyanosis, clubbing, or pedal edema. NEUROLOGICAL: Gross neurological examination did not reveal any focal deficits. Diffuse weakness SKIN: No rashes. Assessment: Very mild left facial droop concerning for stroke versus TIA End-stage renal disease on hemodialysis Pulmonary fibrosis Lymphedema history Borderline hypotension History of polymyalgia rheumatica GI prophylaxis DVT prophylaxis Full code Plan: Continue with aspirin per neurologist awaiting 2D echo with bubble study Neurology service consult on the case recommending to continue with aspirin and statin therapy recommending PT/OT therapy evaluation. PT/OT therapy pending for further evaluation. Patient may require ECF on discharge Continue with dialysis per title investigator and currently receiving dialysis today Home medications reviewed and resumed as appropriate Will await 2D echo and also PT/OT therapy evaluation to determine discharge planning Possible discharge in the next 24 to 48 hours The impression and plan of care has been dictated by nurse joyce Boston as directed. Dr. John MD I have performed a history and examination and MDM of this patient, discussed the same with the dictator, and agree with the dictator's assessment and plan as written ,documented as a scribe. Based on total visit time, I have performed more than 50% of the visit. Any additional findings or plans will be noted. Objective - Vital Signs Vital signs: Vital Signs Temp 98.0 F 12/02/24 14:25 Pulse 61 12/02/24 14:25 Resp 17 12/02/24 14:25 BP 121/74 12/02/24 14:25 Pulse Ox 100 12/02/24 14:25 FiO2 Intake & Output 12/01/24 12/02/24 12/02/24 18:59 06:59 18:59 Intake Total 118 240 Output Total 200 800 Balance -82 -800 240 Intake: Oral 118 240 Output: Urine 200 800 Other: # Voids 2 1 # Bowel Movements 1 - Labs CBC & Chem 7: 11/30/24 13:27 11/30/24 13:27 Labs: Abnormal Lab Results - Last 24 Hours (Table) 11/30/24 Range/Units 13:27 HDL Cholesterol 69.80 H (40.00-60.00) mg/dL
[2024-12-03 07:43] LABS: Basophils # (A) 0.08 X 10*3/uL (0.00-0.10); Basophils % (A) 1.4 %; Eosinophils # (A) 0.36 X 10*3/uL (0.04-0.35); Eosinophils % (A) 6.2 %; HCT 42.0 % (37.2-46.3); HGB 13.1 g/dL (12.0-15.0); Immature Grans, Automated 0.90 %; Lymphocytes # (A) 1.72 X 10*3/uL (0.90-5.00); Lymphocytes % (A) 29.7 %; MCH 32.1 pg (27.0-32.0); MCHC 31.2 g/dL (32.0-37.0); MCV 102.9 FL (80.0-97.0); Monocytes # (A) 0.59 X 10*3/uL (0.20-1.00); Monocytes % (A) 10.2 %; NRBC Per 100 WBC 0 X 10*3/uL (0.00-0.01); Neutrophils # (A) 2.99 X 10*3/uL (1.80-7.70); Neutrophils % (A) 51.6 %; Platelet Count 178 X 10*3/uL (140-440); RBC 4.08 X 10*6/uL (4.10-5.20); RDW 13.7 % (11.5-14.5); WBC 5.79 X 10*3/uL (4.50-10.00)
[2024-12-03 07:44] LABS: Anion Gap 13.40 mmol/L (4.00-12.00); BUN/Creat Ratio 12.93 Ratio (12.00-20.00); Blood Urea Nitrogen 37.5 mg/dL (9.0-27.0); Carbon Dioxide 22.6 mmol/L (21.6-31.8); Chloride 102 mmol/L (96-109); Glucose 95 mg/dL (70-110); Magnesium 1.9 mg/dL (1.5-2.4); Potassium 4.7 mmol/L (3.5-5.5); Sodium 138 mmol/L (135-145)
[2024-12-03 07:45] LABS: ALT 21 U/L (8-44); AST 21 U/L (13-35); Albumin 3.6 g/dL (3.8-4.9); Albumin/Globulin Ratio 1.57 Ratio (1.60-3.17); Alkaline Phosphatase 153 U/L (41-126); Calcium 9.5 mg/dL (8.7-10.3); Globulin 2.3 g/dL (1.6-3.3); Total Protein 5.9 g/dL (6.2-8.2)
--- NOTE | 2024-12-03 10:56 | P.PN ---
Subjective Patient is seen in follow-up for end-stage renal disease. She is maintained on hemodialysis on Monday schedule. No active complaints. No further dizziness or falls. Vital signs are stable. General: No acute distress. HEENT: Head exam is unremarkable. On nasal cannula. LUNGS: No audible rhonchi or wheezes. HEART: Rate and Rhythm are regular. ABDOMEN: Nontender. EXTREMITITES: Edema noted. Chronic lymphedema. Objective - Vital Signs Vital signs: Vital Signs Temp 96.5 F L 12/03/24 07:00 Pulse 54 L 12/03/24 07:00 Resp 18 12/03/24 07:00 BP 113/65 12/03/24 07:00 Pulse Ox 95 12/03/24 07:00 FiO2 Intake & Output 12/02/24 12/03/24 12/03/24 18:59 06:59 18:59 Intake Total 240 400 118 Output Total 4600 Balance 240 -4200 118 Intake: Oral 240 118 Hemodialysis 400 Output: Urine 200 Hemodialysis 2400 Hemodialysis Net Amount 2000 Other: # Voids 1 1 - Labs CBC & Chem 7: 12/03/24 04:57 12/03/24 04:57 Labs: Abnormal Lab Results - Last 24 Hours (Table) 12/03/24 12/03/24 Range/Units 04:57 04:57 RBC 4.08 L (4.10-5.20) X 10*6/uL MCV 102.9 H (80.0-97.0) FL MCH 32.1 H (27.0-32.0) pg MCHC 31.2 L (32.0-37.0) g/dL Immature Gran # 0.05 H (0.00-0.04) X 10*3/uL Eosinophils # 0.36 H (0.04-0.35) X 10*3/uL Anion Gap 13.40 H (4.00-12.00) mmol/L BUN 37.5 H (9.0-27.0) mg/dL Creatinine 2.9 H (0.6-1.5) mg/dL Est GFR (CKD-EPI) 16 L (>=60) Alkaline Phosphatase 153 H (41-126) U/L Total Protein 5.9 L (6.2-8.2) g/dL Albumin 3.6 L (3.8-4.9) g/dL Albumin/Globulin Ratio 1.57 L (1.60-3.17) Ratio Assessment and Plan Plan: Assessment: 1. End-stage renal disease maintained on hemodialysis on Monday schedule. 2. Facial droop with concern for TIA. 3. Chronic kidney disease mineral bone disease maintained on PhosLo. 4. Chronic hypokalemia maintained on potassium supplementation. 5. Metabolic acidosis secondary to chronic kidney disease. On oral bicarb. Plan: Hemodialysis tomorrow. Follow-up echocardiogram. Maintain midodrine. Decreased dose of gabapentin. Maintain Bumex.
[2024-12-03 17:39] LABS: Glucose,Whole Blood 160 mg/dL (70-110)
--- NOTE | 2024-12-04 09:44 | CA ---
Transthoracic Echo Report Name: Margie Dallas Age: 79 Gender: F : 1945 Exam Date: 12/03/2024 15:34 Exam Location: [facility] Ht (in): 63 Wt (lb): 123 Ordering Physician: Haley Lambert MD Attending/Referring Phys: Grips Josi Baez RDCS Procedure CPT: Indications: tia Cardiac Hx: Technical Quality: Fair Contrast 1: Agitated Saline Total Dose (mL): 2 Contrast 2: Total Dose (mL): MEASUREMENTS (Male / Female) Normal Values 2D ECHO LV Diastolic Diameter PLAX 4.2 cm 4.2 - 5.9 / 3.9 - 5.3 cm LV Systolic Diameter PLAX 2.7 cm IVS Diastolic Thickness 1.0 cm 0.6 - 1.0 / 0.6 - 0.9 cm LVPW Diastolic Thickness 1.2 cm 0.6 - 1.0 / 0.6 - 0.9 cm LV Relative Wall Thickness 0.5 RV Internal Dim ED PLAX 1.4 cm LVOT Diameter 1.8 cm LA Systolic Diameter LX 3.6 cm 3.0 - 4.0 / 2.7 - 3.8 cm LV Diastolic Volume MOD BP 39.1 cm??? 67 - 155 / 56 - 104 cm??? LV Systolic Volume MOD BP 13.6 cm??? 22 - 58 / 19 - 49 cm??? LV Ejection Fraction MOD BP 65.2 % >= 55 % LV Cardiac Index MOD BP 984.5 cm???/min???m??? LV Diastolic Volume MOD 4C 37.2 cm??? LV Systolic Volume MOD 4C 11.5 cm??? LV Ejection Fraction MOD 4C 69.1 % LV Cardiac Index MOD 4C 993.1 cm???/min???m??? LV Diastolic Length 4C 6.5 cm LV Systolic Length 4C 6.0 cm LV Diastolic Volume MOD 2C 40.0 cm??? LV Systolic Volume MOD 2C 17.1 cm??? LV Ejection Fraction MOD 2C 57.1 % LV Cardiac Index MOD 2C 882.3 cm???/min???m??? LV Diastolic Length 2C 6.3 cm LV Systolic Length 2C 5.9 cm M-MODE Aortic Root Diameter MM 3.0 cm LA Systolic Diameter MM 3.7 cm LA Ao Ratio MM 1.2 AV Cusp Separation MM 1.7 cm DOPPLER AV Peak Velocity 108.4 cm/s AV Peak Gradient 4.7 mmHg AV Mean Velocity 79.0 cm/s AV Mean Gradient 2.7 mmHg AV Velocity Time Integral 26.6 cm Mitral E Point Velocity 73.7 cm/s Mitral A Point Velocity 60.4 cm/s Mitral E to A Ratio 1.2 MV Deceleration Time 287.1 ms MV E' Velocity 6.4 cm/s Mitral E to MV E' Ratio 11.6 TR Peak Velocity 204.4 cm/s TR Peak Gradient 16.7 mmHg FINDINGS Left Ventricle Left ventricular ejection fraction is estimated at 55-60 %. Mildly increased septal wall thickness. Mildly increased posterior wall thickness. Normal left ventricular systolic function with no obvious regional wall motion abnormalities. Left ventricular cavity size normal. Right Ventricle Normal right ventricular size and function. Right ventricular systolic pressure within normal limits. Right Atrium Normal right atrial size. Negative agitated saline bubble study for right to left shunt. Left Atrium Mild left atrial dilatation. Mitral Valve Structurally normal mitral valve. Mitral annular calcification. Mild mitral regurgitation. Aortic Valve Aortic valve not well visualized. No aortic valve stenosis or regurgitation. Tricuspid Valve Structurally normal tricuspid valve. Trace tricuspid regurgitation. No tricuspid stenosis. Pulmonic Valve Structurally normal pulmonic valve. No pulmonic regurgitation. No pulmonic stenosis. Pericardium No pericardial or pleural effusion. Aorta Normal size aortic root and proximal ascending aorta. CONCLUSIONS Normal LV function Negative bubble study Previewed by: Dr. Ned Jean-Baptiste MD (Electronically Signed) Final Date: 04 December 2024 09:44
--- NOTE | 2024-12-04 10:08 | P.PN ---
Subjective Progress Note Date: 12/03/24 This is a pleasant 79 years old female with past medical history of end-stage renal disease on Monday, lymphedema pulmonary fibrosis osteoporosis hypotension and hypocalcemia polymyalgia rheumatica Was sent from dialysis because of subtle left facial droop with no headache dizziness weakness or numbness because of concerns for stroke Patient awake alert looks comfortable denies any other specific complaint like no chest pain pain or dyspnea. No abdominal pain vomiting or diarrhea. No fever, blood pressure low normal but asymptomatic saturating 98% on 2 L oxygen via nasal cannula WBC 12.8 Platelet count 101 Sodium 133, potassium 3.2 creatinine 2.9. AST and ALT within the reference range. CT of the brain is negative for acute process, cerebral atrophy Chest x-ray venous catheter in place, mild pulmonary edema Patient started on aspirin 81 mg by neurologist 12/01 Patient with no new symptoms The subtle left facial droop not noticed today No other new complaints 12/02/2024 Patient is seen and evaluated in follow-up continues to report generalized wea kness and currently receiving hemodialysis following. Patient to be evaluated by PT/OT therapy to discuss discharge planning. Patient is afebrile with no reports of chest pain or shortness of breath. Patient is wearing oxygen but denies any shortness of breath. Patient has been tolerating diet with not much oral intake and reports not much of an appetite. Will await PT/OT therapy evaluation and discuss with social work regarding discharge planning. 12/03/2024 Patient is seen in follow-up today continues to report some facial drooping and speech delayed with neurology following. 2D echo with bubble study ordered and pending as part of the TIA/CVA workup and will await report. Echo was ordered on 12/01/2024 by neurology and was just taken this morning 12/03/2024. Patient is afebrile with no reports of chest pain or shortness of breath. Patient is reporting some weakness but was evaluated by physical therapy and will be going home with home care. Patient will continue on hemodialysis outpatient and will also need neurology follow-up outpatient. Pending 2D echo and clearance from consultations for discharge planning Review of systems: Constitutional: No reports of fatigue, fever, or chills Cardiovascular: No reports of chest pain or palpitations Respiratory: No reports of shortness of breath or cough GI: No reports of nausea, no reports of vomiting, no diarrhea : No reports of dysuria or retention Neurovascular: reports of generalized weakness, reports continued slurring and facial drooping with minimal improvement All medications have been reviewed PHYSICAL EXAMINATION: GENERAL: The patient is alert and oriented x3, Well developed, ill-appearing, elderly appearing, thin built HEENT: Pupils are round and equally reacting to light. EOMI. no scleral icterus. No conjunctival pallor. Normocephalic, atraumatic. No pharyngeal erythema. No thyromegaly. CARDIOVASCULAR: S1 and S2 muffled PULMONARY: diminished breath sounds bilaterally with no wheezing or rhonchi noted. ABDOMEN: soft. Nontender on exam. Thin. Non-distended, normoactive bowel sounds. No palpable organomegaly. MUSCULOSKELETAL: No joint swelling or deformity. EXTREMITIES: No cyanosis, clubbing, or pedal edema. NEUROLOGICAL: Gross neurological examination did not reveal any focal deficits. Diffuse weakness SKIN: No rashes. Assessment: Very mild left facial droop concerning for stroke versus TIA, likely TIA per neurology End-stage renal disease on hemodialysis Pulmonary fibrosis Lymphedema history Borderline hypotension History of polymyalgia rheumatica Generalized weakness with gait dysfunction GI prophylaxis DVT prophylaxis Full code Plan: Continue with aspirin per neurologist awaiting 2D echo with bubble study. Remains pending and was just performed today 12/03/2024 and has not been read as of yet. Neurology service following recommending to continue with aspirin and statin therapy recommending PT/OT therapy evaluation. PT/OT therapy evaluated the patient and will be planning on home with home care Continue with dialysis per woven paper hat mender and will need outpatient follow-up Home medications reviewed and resumed as appropriate Will await 2D echo to discuss with consultations regarding discharge planning Possible discharge in the next 24 to 48 hours Due to multiple complex medical issues, overall prognosis is guarded The impression and plan of care has been dictated by Catherine Rojas nurse practitioner as directed. Dr. John MD I have performed a history and examination and MDM of this patient, discussed the same with the dictator, and agree with the dictator's assessment and plan as written ,documented as a scribe. Based on total visit time, I have performed more than 50% of the visit. Any additional findings or plans will be noted. Objective - Vital Signs Vital signs: Vital Signs Temp 97.4 F L 12/04/24 07:17 Pulse 65 12/04/24 07:17 Resp 16 12/04/24 07:17 BP 155/86 12/04/24 07:17 Pulse Ox 95 12/04/24 07:17 FiO2 Intake & Output 12/03/24 12/04/24 12/04/24 18:59 06:59 18:59 Intake Total 118 0 Output Total 300 Balance 118 -300 0 Intake: Oral 118 0 Output: Urine 300 Other: # Voids 3 2 - Labs CBC & Chem 7: 12/03/24 04:57 12/03/24 04:57 Labs: Abnormal Lab Results - Last 24 Hours (Table) 12/03/24 Range/Units 17:38 POC Glucose (mg/dL) 160 H (70-110) mg/dL
--- NOTE | 2024-12-04 10:26 | P.PN ---
Subjective Patient is seen in follow-up for end-stage renal disease. She is maintained on hemodialysis on Monday schedule. No active complaints. No problems with dialysis yesterday. Vital signs are stable. General: No acute distress. HEENT: Head exam is unremarkable. On nasal cannula. LUNGS: No audible rhonchi or wheezes. HEART: Rate and Rhythm are regular. ABDOMEN: Nontender. EXTREMITITES: Edema noted. Chronic lymphedema. Objective - Vital Signs Vital signs: Vital Signs Temp 97.4 F L 12/04/24 07:17 Pulse 65 12/04/24 07:17 Resp 16 12/04/24 07:17 BP 155/86 12/04/24 07:17 Pulse Ox 95 12/04/24 07:17 FiO2 Intake & Output 12/03/24 12/04/24 12/04/24 18:59 06:59 18:59 Intake Total 118 0 Output Total 300 Balance 118 -300 0 Intake: Oral 118 0 Output: Urine 300 Other: # Voids 3 2 - Labs CBC & Chem 7: 12/03/24 04:57 12/03/24 04:57 Labs: Abnormal Lab Results - Last 24 Hours (Table) 12/03/24 Range/Units 17:38 POC Glucose (mg/dL) 160 H (70-110) mg/dL Assessment and Plan Plan: Assessment: 1. End-stage renal disease maintained on hemodialysis on Monday schedule. 2. Facial droop with concern for TIA. 3. Chronic kidney disease mineral bone disease maintained on PhosLo. 4. Chronic hypokalemia maintained on potassium supplementation. 5. Metabolic acidosis secondary to chronic kidney disease. On oral bicarb. Plan: Currently seen while undergoing hemodialysis. Preserved EF noted on echocardiogram. Maintain midodrine. Decreased dose of gabapentin. Maintain Bumex.
--- NOTE | 2024-12-04 15:15 | P.PN ---
Subjective Progress Note Date: 12/04/24 According to her nurse today, patient was doing well earlier then within 30 minutes into dialysis she started having confusion. Upon seeing the patient she was slightly slow to respond but was answering questions slowly. Objective - Vital Signs Vital signs: Vital Signs Temp 97.6 F 12/04/24 14:23 Pulse 66 12/04/24 14:23 Resp 16 12/04/24 14:23 BP 141/89 12/04/24 14:23 Pulse Ox 95 12/04/24 13:54 FiO2 Intake & Output 12/03/24 12/04/24 12/04/24 18:59 06:59 18:59 Intake Total 118 800 Output Total 300 4000 Balance 118 -300 -3200 Intake: Oral 118 0 Hemodialysis 800 Output: Urine 300 Hemodialysis 2400 Hemodialysis Net Amount 1600 Other: # Voids 3 2 2 - Exam General: Laying in bed and is not in acute distress. Is currently getting dialysis. Neuro: The patient was sleeping but was awakeable to voice. Is oriented to self. She was slow responding to questions. She correctly named objects correctly (watch and pen). Is following simple commands. No facial weakness. Motor: strength is hard to assess individual muscle strength but lifting bilateral upper extremities and wiggling toes. - Labs CBC & Chem 7: 12/03/24 04:57 12/03/24 04:57 Labs: Abnormal Lab Results - Last 24 Hours (Table) 12/03/24 Range/Units 17:38 POC Glucose (mg/dL) 160 H (70-110) mg/dL Assessment and Plan Assessment: * Altered mental status today after 30 minutes into dialysis. Probable acute encephalopathy due to disequilibrium syndrome from dialysis * Possible TIA manifesting with facial droop, slurred speech and drooling. Her symptoms lasted for half a day and then resolved overnight. At present all symptoms have resolved. Current NIH stroke scale is 0. * End-stage renal disease on hemodialysis * osteoarthritis Plan: * Will obtain repeat CT head and will obtain EEG. Unlikely seizure. * 2-D echo: Normal LV function. negative bubble study. * Carotid Doppler: No hemodynamically significant stenosis * Fasting a.m. lipid panel: Triglycerides 106, cholesterol is 132, LDL is 41 and HDL is 69. * Hemoglobin A1c: 5.3 * Recommend normotensive blood pressure * Start aspirin 81 mg daily. Patient has received a loading dose of aspirin 325 mg in the ER. Patient was not on any antiplatelet medication at home. * Neuro checks every 4 hours. * Telemetry monitoring rule out any arrhythmia * PT, OT, speech therapy * DVT prophylaxis: Heparin 5000 units subcu every 12 hours Time with Patient: Less than 30
--- NOTE | 2024-12-04 16:42 | CT ---
EXAMINATION TYPE: CT brain wo con DATE OF EXAM: 12/04/2024 COMPARISON: 11/30/2024 CLINICAL INDICATION: Female, 79 years old with history of ams unknown etiology; PHH, ams, stroke-like symptoms CT DLP: 1052.9 mGycm Automated exposure control for dose reduction was used. Findings: The ventricles, basal cisterns and sulci over the convexities are within normal limits for the patien t's age and there is no mass effect or shift of midline structures. There is moderate decreased density in the periventricular white matter consistent with moderate chronic disease manager olinda ischemic white matter demyelination. There is no acute intra or extra-axial hemorrhage. The posterior fossa including the brainstem, fourth ventricle and cerebellar pontine angles appear no rmal. Intraorbital contents appear normal and symmetric. Visualized paranasal sinuses and mastoid air cells are well aerated. The calvarium is intact. IMPRESSION: 1. Moderate age-appropriate atrophy. 2. There is no acute bleed or mass effect. 3. No interval change. [facility], , 12/04/2024 4:40 PM
--- NOTE | 2024-12-05 02:15 | P.PN ---
Subjective Progress Note Date: 12/04/24 This is a pleasant 79 years old female with past medical history of end-stage renal disease on Monday, lymphedema pulmonary fibrosis osteoporosis hypotension and hypocalcemia polymyalgia rheumatica Was sent from dialysis because of subtle left facial droop with no headache dizziness weakness or numbness because of concerns for stroke Patient awake alert looks comfortable denies any other specific complaint like no chest pain pain or dyspnea. No abdominal pain vomiting or diarrhea. No fever, blood pressure low normal but asymptomatic saturating 98% on 2 L oxygen via nasal cannula WBC 12.8 Platelet count 101 Sodium 133, potassium 3.2 creatinine 2.9. AST and ALT within the reference range. CT of the brain is negative for acute process, cerebral atrophy Chest x-ray venous catheter in place, mild pulmonary edema Patient started on aspirin 81 mg by neurologist 12/01 Patient with no new symptoms The subtle left facial droop not noticed today No other new complaints 12/02/2024 Patient is seen and evaluated in follow-up continues to report generalized wea kness and currently receiving hemodialysis following. Patient to be evaluated by PT/OT therapy to discuss discharge planning. Patient is afebrile with no reports of chest pain or shortness of breath. Patient is wearing oxygen but denies any shortness of breath. Patient has been tolerating diet with not much oral intake and reports not much of an appetite. Will await PT/OT therapy evaluation and discuss with social work regarding discharge planning. 12/03/2024 Patient is seen in follow-up today continues to report some facial drooping and speech delayed with neurology following. 2D echo with bubble study ordered and pending as part of the TIA/CVA workup and will await report. Echo was ordered on 12/01/2024 by neurology and was just taken this morning 12/03/2024. Patient is afebrile with no reports of chest pain or shortness of breath. Patient is reporting some weakness but was evaluated by physical therapy and will be going home with home care. Patient will continue on hemodialysis outpatient and will also need neurology follow-up outpatient. Pending 2D echo and clearance from consultations for discharge planning 12/04/2024 Patient is seen in follow-up this morning was doing well receiving hemodialysis although shortly into dialysis, patient developed altered mentation and confusion with delayed speech and staring off episodes. Family present at bedside noticed these changes and neurology made aware has ordered EEG and repeat CT. Patient did undergo echo with bubble with a negative bubble study. Patient continues with delayed speech and nonsensical laughing at times. Regarding treatment plan moving forward. Patient was evaluated by physical therapy home care once stabilized. Review of systems: Constitutional: No reports of fatigue, fever, or chills Cardiovascular: No reports of chest pain or palpitations Respiratory: No reports of shortness of breath or cough GI: No reports of nausea, no reports of vomiting, no diarrhea : No reports of dysuria or retention Neurovascular: reports of generalized weakness, reports continued slurring and facial drooping with minimal improvement All medications have been reviewed PHYSICAL EXAMINATION: GENERAL: The patient is alert and oriented x 1-2, slightly confused, noticed episodes of blank staring, well developed, ill-appearing, elderly appearing, thin built HEENT: Pupils are round and equally reacting to light. EOMI. no scleral icterus. No conjunctival pallor. Normocephalic, atraumatic. No pharyngeal erythema. No thyromegaly. CARDIOVASCULAR: S1 and S2 muffled PULMONARY: diminished breath sounds bilaterally with no wheezing or rhonchi noted. ABDOMEN: soft. Nontender on exam. Thin. Non-distended, normoactive bowel sounds. No palpable organomegaly. MUSCULOSKELETAL: No joint swelling or deformity. EXTREMITIES: No cyanosis, clubbing, or pedal edema. NEUROLOGICAL: Gross neurological examination did not reveal any focal deficits. Diffuse weakness SKIN: No rashes. Assessment: Very mild left facial droop concerning for stroke versus TIA, likely TIA per neurology End-stage renal disease on hemodialysis Pulmonary fibrosis Lymphedema history Borderline hypotension History of polymyalgia rheumatica Generalized weakness with gait dysfunction GI prophylaxis DVT prophylaxis Full code Plan: Continue with aspirin per neurologist and 2D echo bubble study was negative within normal EF. Neurology service following recommending to continue with aspirin and statin therapy recommending PT/OT therapy evaluation. Patient having episodes of blank staring and confusion along with the EEG which will be performed on 12/05/2024. CT is pending and delayed per nursing staff due to being down to 1 machine PT/OT therapy evaluated the patient and will be planning on home with home care Continue with dialysis per edge gluer and will need outpatient follow-up Home medications reviewed and resumed as appropriate Recommend frequent reorientation and family setting with patient as much as possible Due to multiple complex medical issues, overall prognosis is guarded The impression and plan of care has been dictated by Catherine Rojas, nurse practitioner as directed. Dr. John MD I have performed a history and examination and MDM of this patient, discussed the same with the dictator, and agree with the dictator's assessment and plan as written ,documented as a scribe. Based on total visit time, I have performed more than 50% of the visit. Any additional findings or plans will be noted. Objective - Vital Signs Vital signs: Vital Signs Temp 97.4 F L 12/04/24 07:17 Pulse 65 12/04/24 07:17 Resp 16 12/04/24 07:17 BP 155/86 12/04/24 07:17 Pulse Ox 95 12/04/24 07:17 FiO2 Intake & Output 12/03/24 12/04/24 12/04/24 18:59 06:59 18:59 Intake Total 118 0 Output Total 300 Balance 118 -300 0 Intake: Oral 118 0 Output: Urine 300 Other: # Voids 3 2 - Labs CBC & Chem 7: 12/03/24 04:57 12/03/24 04:57 Labs: Abnormal Lab Results - Last 24 Hours (Table) 12/03/24 Range/Units 17:38 POC Glucose (mg/dL) 160 H (70-110) mg/dL
--- NOTE | 2024-12-05 10:50 | P.PN ---
Subjective Patient is seen in follow-up for end-stage renal disease. She is maintained on hemodialysis on Monday schedule. Patient became dizzy when she went to use the bathroom yesterday in the middle of dialysis. Currently resting in bed. Has not ambulated much today. Vital signs are stable. General: No acute distress. HEENT: Head exam is unremarkable. On nasal cannula. LUNGS: No audible rhonchi or wheezes. HEART: Rate and Rhythm are regular. ABDOMEN: Nontender. EXTREMITITES: Edema noted. Chronic lymphedema. Objective - Vital Signs Vital signs: Vital Signs Temp 97.4 F L 12/05/24 07:23 Pulse 68 12/05/24 07:23 Resp 16 12/05/24 07:23 BP 109/69 12/05/24 07:23 Pulse Ox 93 L 12/05/24 07:23 FiO2 Intake & Output 12/04/24 12/05/24 12/05/24 18:59 06:59 18:59 Intake Total 800 118 Output Total 4000 Balance -3200 118 Intake: Oral 0 118 Hemodialysis 800 Output: Hemodialysis 2400 Hemodialysis Net Amount 1600 Other: # Voids 2 2 - Labs CBC & Chem 7: 12/03/24 04:57 12/03/24 04:57 Assessment and Plan Plan: Assessment: 1. End-stage renal disease maintained on hemodialysis on Monday schedule. 2. Facial droop with concern for TIA. CT of the brain negative. 3. Chronic kidney disease mineral bone disease maintained on PhosLo. 4. Chronic hypokalemia maintained on potassium supplementation. 5. Metabolic acidosis secondary to chronic kidney disease. On oral bicarb. Plan: Hemodialysis tomorrow. Preserved EF noted on echocardiogram. Maintain midodrine. Decreased dose of gabapentin. Maintain Bumex. Check orthostatic vitals.
[2024-12-05 11:54] LABS: Basophils # (A) 0.13 X 10*3/uL (0.00-0.10); Basophils % (A) 2.4 %; Eosinophils # (A) 0.31 X 10*3/uL (0.04-0.35); Eosinophils % (A) 5.7 %; HCT 44.6 % (37.2-46.3); HGB 13.7 g/dL (12.0-15.0); Immature Grans, Automated 3.10 %; Lymphocytes # (A) 1.95 X 10*3/uL (0.90-5.00); Lymphocytes % (A) 35.8 %; MCH 31.9 pg (27.0-32.0); MCHC 30.7 g/dL (32.0-37.0); MCV 103.7 FL (80.0-97.0); Monocytes # (A) 0.65 X 10*3/uL (0.20-1.00); Monocytes % (A) 11.9 %; NRBC Per 100 WBC 0 X 10*3/uL (0.00-0.01); Neutrophils # (A) 2.23 X 10*3/uL (1.80-7.70); Neutrophils % (A) 41.1 %; Platelet Count 172 X 10*3/uL (140-440); RBC 4.30 X 10*6/uL (4.10-5.20); RDW 13.5 % (11.5-14.5); WBC 5.44 X 10*3/uL (4.50-10.00)
--- NOTE | 2024-12-05 11:54 | CDI ---
Documentation Clarification Form Date: 12/05/2024 10:42:47 AM From: Yadira Duncan RN CCDS Phone: [phone] Admit Date: 11/30/2024 02:37:00 PM Patient Name: Margie Dallas Visit Number: [id number] Discharge Date: ATTENTION: The Clinical Documentation Specialists (CDI) and [facility] Coding Staff appreciate your assistance in clarifying documentation. Please respond to the clarification below the line at the bottom and electronically sign. The CDI & [facility] Coding staff will review the response and follow-up if needed. Please note: Queries are made part of the Legal Health Record. If you have any questions, please contact the author of this message via ITS. Doctor Adalberto Gomes MD Acute Encephalopathy is documented 12/04, Neurology note. Additional clarification regarding the type of encephalopathy is requested. History/Risk Factors: 79 year old female had altered mental status after thirty minutes into dialysis. Probable acute encephalopathy due to disequilibrium syndrome from dialysis. The patient presented with possible TIA manifesting with facial droop, slurred speech and drooling. At present all symptoms have resolved. Medical history: ESRD on hemodialysis, polymyalgia rheumatic and borderline hypotension. 10/30 hp and Neuro note 12/04. Medicine note, 12/04: Clinical Indicators: CT Brain, 12/04: Moderate age appropriate atrophy. There is no acute bleed or mass effect. No interval change. Medicine note, 12/04: Patient is seen infollow-upthis morning was doing well receivinghemodialysis although shortly intodialysis, patient developedaltered mentationand confusionwithdelayedspeech and staring off episodes. Treatment: Brain ct 12/04, EEG ordered. Neuro checks every four hours Please clarify the type of encephalopathy, if known: [ X ] Metabolic Encephalopathy [ ] Other, please specify [ ] Unable to determine (Template Last Revised: August 2020) MTDD
[2024-12-05 13:00] LABS: Magnesium 2.0 mg/dL (1.5-2.4)
[2024-12-05 13:12] LABS: ALT 34 U/L (8-44); AST 34 U/L (13-35); Albumin 3.6 g/dL (3.8-4.9); Albumin/Globulin Ratio 1.50 Ratio (1.60-3.17); Alkaline Phosphatase 171 U/L (41-126); Anion Gap 13.30 mmol/L (4.00-12.00); BUN/Creat Ratio 12.56 Ratio (12.00-20.00); Blood Urea Nitrogen 33.9 mg/dL (9.0-27.0); Calcium 9.4 mg/dL (8.7-10.3); Carbon Dioxide 23.7 mmol/L (21.6-31.8); Chloride 101 mmol/L (96-109); Globulin 2.4 g/dL (1.6-3.3); Glucose 100 mg/dL (70-110); Potassium 4.6 mmol/L (3.5-5.5); Sodium 138 mmol/L (135-145); Total Protein 6.0 g/dL (6.2-8.2)
[2024-12-05 13:29] LABS: Bacteria,Urine Few /hpf; Bilirubin,Urine Negative (Negative); Blood,Urine Large (Negative); Color,Urine Yellow; Glucose,Urine (UA) Negative (Negative); Ketones,Urine Negative (Negative); Leukocyte Esterase,Urine Large (Negative); Mucus,Urine Rare /hpf; Nitrite,Urine Positive (Negative); PH, Urine 5.5 (5.0-8.0); Protein,Urine Trace (Negative); RBC,Urine 146 /hpf (0-5); Specific Gravity,Urine 1.012 (1.001-1.035); Squamous Epithelial Cell,Urine 16 /hpf (0-4); Urobilinogen,Urine <2.0 mg/dL (<2.0); WBC,Urine 27 /hpf (0-5)
[2024-12-05 14:05] VITALS: BMI 21.9
--- NOTE | 2024-12-05 16:17 | P.PN ---
Subjective Progress Note Date: 12/05/24 I am following-up with the patient and she is accompanied with her who feels she is better today compared to yesterday but not completely to baseline since not responding quickly. Objective - Vital Signs Vital signs: Vital Signs Temp 97.5 F L 12/05/24 14:29 Pulse 65 12/05/24 14:29 Resp 16 12/05/24 14:29 BP 116/73 12/05/24 14:29 Pulse Ox 98 12/05/24 14:29 FiO2 Intake & Output 12/04/24 12/05/24 12/05/24 18:59 06:59 18:59 Intake Total 800 118 Output Total 4000 Balance -3200 118 Weight 56 kg Intake: Oral 0 118 Hemodialysis 800 Output: Hemodialysis 2400 Hemodialysis Net Amount 1600 Other: Voiding Method Toilet # Voids 2 2 1 - Exam General: Laying in bed and is not in acute distress. Neuro: Patient has mild drowsy but is awakeable to voice. Is oriented to self, place and time. Is following simple commands. She was able to name objects correctly (pen and glasses), name her and kids names, name the current state. No aphasia. Pupils are round, equal and reactive to light. Pupils are 4mm bilaterally. No facial weakness. No dysarthria. Motor: strength is lifting bilateral upper extremities and wiggling toes symmetrically. - Labs CBC & Chem 7: 12/05/24 06:52 12/05/24 06:52 Labs: Abnormal Lab Results - Last 24 Hours (Table) 12/05/24 12/05/24 12/05/24 Range/Units 06:52 06:52 12:51 MCV 103.7 H (80.0-97.0) FL MCHC 30.7 L (32.0-37.0) g/dL Immature Gran # 0.17 H (0.00-0.04) X 10*3/uL Basophils # 0.13 H (0.00-0.10) X 10*3/uL Anion Gap 13.30 H (4.00-12.00) mmol/L BUN 33.9 H (9.0-27.0) mg/dL Creatinine 2.7 H (0.6-1.5) mg/dL Est GFR (CKD-EPI) 17 L (>=60) Alkaline Phosphatase 171 H (41-126) U/L Total Protein 6.0 L (6.2-8.2) g/dL Albumin 3.6 L (3.8-4.9) g/dL Albumin/Globulin Ratio 1.50 L (1.60-3.17) Ratio Urine Appearance Cloudy H (Clear) Urine Protein Trace H (Negative) Urine Blood Large H (Negative) Urine Nitrite Positive H (Negative) Ur Leukocyte Esterase Large H (Negative) Urine RBC 146 H (0-5) /hpf Urine WBC 27 H (0-5) /hpf Ur Squamous Epith Cells 16 H (0-4) /hpf Urine Bacteria Few H (None) /hpf Urine Mucus Rare H (None) /hpf Assessment and Plan Assessment: * Altered mental status today after 30 minutes into dialysis. Probable acute encephalopathy due to disequilibrium syndrome from dialysis--today mentation is better. Preliminary EEG: shows no seizure but shows triphasic due to toxic-metabolic encephalopathy. * Possible TIA manifesting with facial droop, slurred speech and drooling. Her symptoms lasted for half a day and then resolved overnight. At present all symptoms have resolved. Current NIH stroke scale is 0. * End-stage renal disease on hemodialysis * osteoarthritis Plan: * Repeat CT head: There is no acute bleed or mass effect. No interval change * EEG: Preliminary report shows triphasic morphology likely due to toxic- metabolic derangement. * 2-D echo: Normal LV function. negative bubble study. * Carotid Doppler: No hemodynamically significant stenosis * Fasting a.m. lipid panel: Triglycerides 106, cholesterol is 132, LDL is 41 and HDL is 69. * Hemoglobin A1c: 5.3 * Recommend normotensive blood pressure * Start aspirin 81 mg daily. Patient has received a loading dose of aspirin 325 mg in the ER. Patient was not on any antiplatelet medication at home. * Neuro checks every 4 hours. * Telemetry monitoring rule out any arrhythmia * PT, OT, speech therapy * Nephrology is on board. * DVT prophylaxis: Heparin 5000 units subcu every 12 hours * Upon discharge, recommend the patient to follow-up with outpatient neurologist within 2-3 weeks. The plan is discussed with patient and her who is at bedside. If the patient continues to be doing well by tomorrow, then no further neurological work-up and patient is clear fro discharge. Time with Patient: Less than 30
--- NOTE | 2024-12-05 23:55 | P.PN ---
Subjective Progress Note Date: 12/05/24 This is a pleasant 79 years old female with past medical history of end-stage renal disease on Monday, lymphedema pulmonary fibrosis osteoporosis hypotension and hypocalcemia polymyalgia rheumatica Was sent from dialysis because of subtle left facial droop with no headache dizziness weakness or numbness because of concerns for stroke Patient awake alert looks comfortable denies any other specific complaint like no chest pain pain or dyspnea. No abdominal pain vomiting or diarrhea. No fever, blood pressure low normal but asymptomatic saturating 98% on 2 L oxygen via nasal cannula WBC 12.8 Platelet count 101 Sodium 133, potassium 3.2 creatinine 2.9. AST and ALT within the reference range. CT of the brain is negative for acute process, cerebral atrophy Chest x-ray venous catheter in place, mild pulmonary edema Patient started on aspirin 81 mg by neurologist 12/01 Patient with no new symptoms The subtle left facial droop not noticed today No other new complaints 12/02/2024 Patient is seen and evaluated in follow-up continues to report generalized wea kness and currently receiving hemodialysis following. Patient to be evaluated by PT/OT therapy to discuss discharge planning. Patient is afebrile with no reports of chest pain or shortness of breath. Patient is wearing oxygen but denies any shortness of breath. Patient has been tolerating diet with not much oral intake and reports not much of an appetite. Will await PT/OT therapy evaluation and discuss with social work regarding discharge planning. 12/03/2024 Patient is seen in follow-up today continues to report some facial drooping and speech delayed with neurology following. 2D echo with bubble study ordered and pending as part of the TIA/CVA workup and will await report. Echo was ordered on 12/01/2024 by neurology and was just taken this morning 12/03/2024. Patient is afebrile with no reports of chest pain or shortness of breath. Patient is reporting some weakness but was evaluated by physical therapy and will be going home with home care. Patient will continue on hemodialysis outpatient and will also need neurology follow-up outpatient. Pending 2D echo and clearance from consultations for discharge planning 12/04/2024 Patient is seen in follow-up this morning was doing well receiving hemodialysis although shortly into dialysis, patient developed altered mentation and confusion with delayed speech and staring off episodes. Family present at bedside noticed these changes and neurology made aware has ordered EEG and repeat CT. Patient did undergo echo with bubble with a negative bubble study. Patient continues with delayed speech and nonsensical laughing at times. Regarding treatment plan moving forward. Patient was evaluated by physical therapy home care once stabilized. 12/05/2024 Patient is seen and evaluated this morning status post CT of the brain showing no acute changes and EEG has been performed and pending read at this time. Patient continues to have episodes of confusion although appears baseline this morning. Patient will be undergoing another session of hemodialysis tomorrow and will be monitored closely as these episodes were more frequently during dialysis. Patient was able to provide a urine sample with concerns of possible urinary tract infection, will initiate antibiotics and send for urine culture. Encouraged increase activity as tolerated and sitting up more frequently in the chair. Await further to discuss with neurology as this is felt likely due to hemodialysis. Review of systems: Constitutional: No reports of fatigue, fever, or chills Cardiovascular: No reports of chest pain or palpitations Respiratory: No reports of shortness of breath or cough GI: No reports of nausea, no reports of vomiting, no diarrhea : No reports of dysuria or retention Neurovascular: reports of generalized weakness, reports continued slurring and facial drooping with minimal improvement All medications have been reviewed PHYSICAL EXAMINATION: GENERAL: The patient is alert and oriented x 1-2, slightly confused, noticed epi sodes of blank staring, intermittent although less frequent today, well developed, ill-appearing, elderly appearing, thin built HEENT: Pupils are round and equally reacting to light. EOMI. no scleral icterus. No conjunctival pallor. Normocephalic, atraumatic. No pharyngeal erythema. No thyromegaly. CARDIOVASCULAR: S1 and S2 muffled PULMONARY: diminished breath sounds bilaterally with no wheezing or rhonchi noted. ABDOMEN: soft. Nontender on exam. Thin. Non-distended, normoactive bowel so unds. No palpable organomegaly. MUSCULOSKELETAL: No joint swelling or deformity. EXTREMITIES: No cyanosis, clubbing, or pedal edema. NEUROLOGICAL: Gross neurological examination did not reveal any focal deficits. Diffuse weakness SKIN: No rashes. Assessment: Very mild left facial droop concerning for stroke versus TIA, likely TIA per neurology End-stage renal disease on hemodialysis Altered mentation, multifactorial, metabolic encephalopathy possibly secondary to end-stage renal disease as well as concerns of possible acute urinary tract infection, possibly present on admission Pulmonary fibrosis Lymphedema history Borderline hypotension History of polymyalgia rheumatica Generalized weakness with gait dysfunction GI prophylaxis DVT prophylaxis Full code Plan: Continue with aspirin per neurologist and 2D echo bubble study was negative within normal EF. Neurology service following recommending to continue with aspirin and statin therapy recommending PT/OT therapy evaluation. Patient having episodes of blank staring and confusion along with the EEG was performed on 12/05/[address] brain showing no acute process PT/OT therapy evaluated the patient and will be planning on home with home care Continue with dialysis per covering machine operator and will need outpatient follow-up Patient was able to provide a urinalysis with positive nitrates and leukocyte Estrace, will initiate ceftriaxone and order urine culture Home medications reviewed and resumed as appropriate Recommend frequent reorientation and family setting with patient as much as possible Due to multiple complex medical issues, overall prognosis is guarded The impression and plan of care has been dictated by Catherine Rojas, nurse practitioner as directed. Dr. John MD I have performed a history and examination and MDM of this patient, discussed the same with the dictator, and agree with the dictator's assessment and plan as written ,documented as a scribe. Based on total visit time, I have performed more than 50% of the visit. Any additional findings or plans will be noted. Objective - Vital Signs Vital signs: Vital Signs Temp 97.6 F 12/05/24 17:54 Pulse 66 12/05/24 17:54 Resp 17 12/05/24 20:00 BP 98/65 12/05/24 17:54 Pulse Ox 95 12/05/24 17:54 FiO2 Intake & Output 12/05/24 12/05/24 12/06/24 06:59 18:59 06:59 Intake Total 118 Balance 118 Weight 56 kg Intake: Oral 118 Other: Voiding Method Toilet # Voids 2 1 1 - Labs CBC & Chem 7: 12/05/24 06:52 12/05/24 06:52 Labs: Abnormal Lab Results - Last 24 Hours (Table) 12/05/24 12/05/24 12/05/24 Range/Units 06:52 06:52 12:51 MCV 103.7 H (80.0-97.0) FL MCHC 30.7 L (32.0-37.0) g/dL Immature Gran # 0.17 H (0.00-0.04) X 10*3/uL Basophils # 0.13 H (0.00-0.10) X 10*3/uL Anion Gap 13.30 H (4.00-12.00) mmol/L BUN 33.9 H (9.0-27.0) mg/dL Creatinine 2.7 H (0.6-1.5) mg/dL Est GFR (CKD-EPI) 17 L (>=60) Alkaline Phosphatase 171 H (41-126) U/L Total Protein 6.0 L (6.2-8.2) g/dL Albumin 3.6 L (3.8-4.9) g/dL Albumin/Globulin Ratio 1.50 L (1.60-3.17) Ratio Urine Appearance Cloudy H (Clear) Urine Protein Trace H (Negative) Urine Blood Large H (Negative) Urine Nitrite Positive H (Negative) Ur Leukocyte Esterase Large H (Negative) Urine RBC 146 H (0-5) /hpf Urine WBC 27 H (0-5) /hpf Ur Squamous Epith Cells 16 H (0-4) /hpf Urine Bacteria Few H (None) /hpf Urine Mucus Rare H (None) /hpf
--- NOTE | 2024-12-06 03:36 | EEG ---
ELECTROENCEPHALOGRAM REPORT CLINICAL HISTORY: This is an 79-year-old woman with recurrent altered mental status. The video EEG is obtained to evaluate for seizure epileptiform activity. RELEVANT MEDICATION: Baclofen. EEG TYPE: This is a routine 21-channel EEG with video using the 10/20 electrode placement system. DESCRIPTION: Wakefulness is only obtained. During awake state, the background consists of low-to- moderate voltage of 6.5-7 hertz activity and sometimes intermixed with delta activity. There was no physiological stage 2 sleep architecture. There is no focal slowing. There are sharply contoured anterior to posterior lag with triphasic morphology. Interictal and ictal are none. ACTIVATION PROCEDURE: Photic stimulation did not evoke posterior driving response. There is no abnormality during the photic stimulation. Hyperventilation is not performed. CLINICAL INTERPRETATION: This is an abnormal routine EEG during awake state. The background slowing is suggestive of mild encephalopathy. The triphasic morphology is likely due to toxic metabolic derangement. There is no focal slowing, epileptiform discharge, or seizure on the EEG. Lack of epileptiform discharge does not rule out underlying epilepsy. Clinical correlation is recommended. MMODL / IJN: [id number] /
--- NOTE | 2024-12-06 10:20 | P.PN ---
Subjective Patient is seen in follow-up for end-stage renal disease. She is maintained on hemodialysis on Monday schedule. Resting in bed. Scheduled for dialysis today. Orthostatics were positive yesterday. Vital signs are stable. General: No acute distress. HEENT: Head exam is unremarkable. On nasal cannula. LUNGS: No audible rhonchi or wheezes. HEART: Rate and Rhythm are regular. ABDOMEN: Nontender. EXTREMITITES: Edema noted. Chronic lymphedema. Objective - Vital Signs Vital signs: Vital Signs Temp 97.9 F 12/06/24 07:03 Pulse 66 12/06/24 07:03 Resp 17 12/06/24 07:03 BP 109/71 12/06/24 07:03 Pulse Ox 97 12/06/24 07:03 FiO2 Intake & Output 12/05/24 12/06/24 12/06/24 18:59 06:59 18:59 Intake Total 118 Balance 118 Weight 56 kg Intake: Oral 118 Other: Voiding Method Toilet Toilet # Voids 1 1 # Bowel Movements 2 - Labs CBC & Chem 7: 12/05/24 06:52 12/06/24 05:57 Labs: Abnormal Lab Results - Last 24 Hours (Table) 12/05/24 12/05/24 12/05/24 Range/Units 06:52 06:52 12:51 MCV 103.7 H (80.0-97.0) FL MCHC 30.7 L (32.0-37.0) g/dL Immature Gran # 0.17 H (0.00-0.04) X 10*3/uL Basophils # 0.13 H (0.00-0.10) X 10*3/uL Anion Gap 13.30 H (4.00-12.00) mmol/L BUN 33.9 H (9.0-27.0) mg/dL Creatinine 2.7 H (0.6-1.5) mg/dL Est GFR (CKD-EPI) 17 L (>=60) Alkaline Phosphatase 171 H (41-126) U/L Total Protein 6.0 L (6.2-8.2) g/dL Albumin 3.6 L (3.8-4.9) g/dL Albumin/Globulin Ratio 1.50 L (1.60-3.17) Ratio Urine Appearance Cloudy H (Clear) Urine Protein Trace H (Negative) Urine Blood Large H (Negative) Urine Nitrite Positive H (Negative) Ur Leukocyte Esterase Large H (Negative) Urine RBC 146 H (0-5) /hpf Urine WBC 27 H (0-5) /hpf Ur Squamous Epith Cells 16 H (0-4) /hpf Urine Bacteria Few H (None) /hpf Urine Mucus Rare H (None) /hpf Assessment and Plan Plan: Assessment: 1. End-stage renal disease maintained on hemodialysis on Monday schedule. 2. Facial droop with concern for TIA. CT of the brain negative. 3. Chronic kidney disease mineral bone disease maintained on PhosLo. 4. Chronic hypokalemia maintained on potassium supplementation. 5. Metabolic acidosis secondary to chronic kidney disease. On oral bicarb. 6. Orthostatic hypotension. Plan: Hemodialysis today with minimal ultrafiltration. Increase midodrine dose to 10 mg. Preserved EF noted on echocardiogram. Decreased dose of gabapentin. Maintain Bumex..
[2024-12-06] MEDS: MIDODRINE 5 MG TAB PO SCH (13:20)
--- NOTE | 2024-12-06 13:37 | P.PN ---
Subjective Progress Note Date: 12/06/24 On follow-up with the patient and upon seeing the patient she was sleeping and no reported acute events overnight. She feels she doing "ok". Objective - Vital Signs Vital signs: Vital Signs Temp 97.9 F 12/06/24 07:03 Pulse 66 12/06/24 07:03 Resp 17 12/06/24 07:03 BP 109/71 12/06/24 07:03 Pulse Ox 97 12/06/24 07:03 FiO2 Intake & Output 12/05/24 12/06/24 12/06/24 18:59 06:59 18:59 Intake Total 118 Balance 118 Weight 56 kg Intake: Oral 118 Other: Voiding Method Toilet Toilet # Voids 1 1 # Bowel Movements 2 - Exam General: Laying in bed and is not in acute distress. Neuro: Was somewhat limited since was sleeping. Upon waking up her up she was drowsy but is awakeable to voice. She is oriented to self and place. She is able to name objects such as pen watch glasses cup. She is following simple commands. No facial weakness. No dysarthria Motor she is lifting upper extremities above gravity equally. She wiggles her toes. - Labs CBC & Chem 7: 12/05/24 06:52 12/06/24 05:57 Assessment and Plan Assessment: * Altered mental status today after 30 minutes into dialysis. Probable acute encephalopathy due to disequilibrium syndrome from dialysis and EEG showed triphasic morphology due to toxic-metabolic encephalopathy but no seizure * Possible TIA manifesting with facial droop, slurred speech and drooling. Her symptoms lasted for half a day and then resolved overnight. At present all symptoms have resolved. Current NIH stroke scale is 0. * End-stage renal disease on hemodialysis * osteoarthritis Plan: * Repeat CT head: There is no acute bleed or mass effect. No interval change * EEG: Is abnormal. The background slowing is suggestive of mild encephalopathy. triphasic morphology likely due to toxic-metabolic derangement. No seizure or discharge. * If patient continues to have confusion recommend repeat EEG. * 2-D echo: Normal LV function. negative bubble study. * Carotid Doppler: No hemodynamically significant stenosis * Fasting a.m. lipid panel: Triglycerides 106, cholesterol is 132, LDL is 41 and HDL is 69. * Hemoglobin A1c: 5.3 * Recommend normotensive blood pressure * Start aspirin 81 mg daily. Patient has received a loading dose of aspirin 325 mg in the ER. Patient was not on any antiplatelet medication at home. * Neuro checks every 4 hours. * Telemetry monitoring rule out any arrhythmia * PT, OT, speech therapy * Nephrology is on board. * DVT prophylaxis: Heparin 5000 units subcu every 12 hours * Upon discharge, recommend the patient to follow-up with outpatient neurologist within 2-3 weeks. If patient continues to be doing well then no further neurological work-up but if continues to be here then will follow-up with her sporadically. Dr. Flower will resume neurology service tomorrow then Dr. Lambert this Monday A.M. ADDENDUM: Just 30 minutes prior to dialysis I was updated by the nurse that the patient was severely confused. Because her recurrent episode of confusion I empirically started the patient on Keppra and will obtain a repeat EEG which will likely be completed this Monday a.m. I updated the patient's . Time with Patient: Less than 30
--- NOTE | 2024-12-06 14:26 | P.PN ---
Subjective Progress Note Date: 12/06/24 This is a pleasant 79 years old female with past medical history of end-stage renal disease on Monday, lymphedema pulmonary fibrosis osteoporosis hypotension and hypocalcemia polymyalgia rheumatica Was sent from dialysis because of subtle left facial droop with no headache dizziness weakness or numbness because of concerns for stroke Patient awake alert looks comfortable denies any other specific complaint like no chest pain pain or dyspnea. No abdominal pain vomiting or diarrhea. No fever, blood pressure low normal but asymptomatic saturating 98% on 2 L oxygen via nasal cannula WBC 12.8 Platelet count 101 Sodium 133, potassium 3.2 creatinine 2.9. AST and ALT within the reference range. CT of the brain is negative for acute process, cerebral atrophy Chest x-ray venous catheter in place, mild pulmonary edema Patient started on aspirin 81 mg by neurologist 12/01 Patient with no new symptoms The subtle left facial droop not noticed today No other new complaints 12/02/2024 Patient is seen and evaluated in follow-up continues to report generalized wea kness and currently receiving hemodialysis following. Patient to be evaluated by PT/OT therapy to discuss discharge planning. Patient is afebrile with no reports of chest pain or shortness of breath. Patient is wearing oxygen but denies any shortness of breath. Patient has been tolerating diet with not much oral intake and reports not much of an appetite. Will await PT/OT therapy evaluation and discuss with social work regarding discharge planning. 12/03/2024 Patient is seen in follow-up today continues to report some facial drooping and speech delayed with neurology following. 2D echo with bubble study ordered and pending as part of the TIA/CVA workup and will await report. Echo was ordered on 12/01/2024 by neurology and was just taken this morning 12/03/2024. Patient is afebrile with no reports of chest pain or shortness of breath. Patient is reporting some weakness but was evaluated by physical therapy and will be going home with home care. Patient will continue on hemodialysis outpatient and will also need neurology follow-up outpatient. Pending 2D echo and clearance from consultations for discharge planning 12/04/2024 Patient is seen in follow-up this morning was doing well receiving hemodialysis although shortly into dialysis, patient developed altered mentation and confusion with delayed speech and staring off episodes. Family present at bedside noticed these changes and neurology made aware has ordered EEG and repeat CT. Patient did undergo echo with bubble with a negative bubble study. Patient continues with delayed speech and nonsensical laughing at times. Regarding treatment plan moving forward. Patient was evaluated by physical therapy home care once stabilized. 12/05/2024 Patient is seen and evaluated this morning status post CT of the brain showing no acute changes and EEG has been performed and pending read at this time. Patient continues to have episodes of confusion although appears baseline this morning. Patient will be undergoing another session of hemodialysis tomorrow and will be monitored closely as these episodes were more frequently during dialysis. Patient was able to provide a urine sample with concerns of possible urinary tract infection, will initiate antibiotics and send for urine culture. Encouraged increase activity as tolerated and sitting up more frequently in the chair. Await further to discuss with neurology as this is felt likely due to hemodialysis. 12/06/2024 Patient is seen in follow-up today this morning was lethargic although arousable and continues to have these brief episodes and periods of staring off and unresponsiveness and confusion and then will appear more alert. Patient has had neurological workup which has been negative. EEG showed abnormal due to metabolic encephalopathy otherwise no epileptiform discharges noted. Patient did have an abnormal urine and urine culture is sent and specimen is pending and we will continue with ceftriaxone for now. Patient to continue on hemodialysis and is receiving another dose today. Concerns of dementia as well. Review of systems: Constitutional: No reports of fatigue, fever, or chills Cardiovascular: No reports of chest pain or palpitations Respiratory: No reports of shortness of breath or cough GI: No reports of nausea, no reports of vomiting, no diarrhea : No reports of dysuria or retention Neurovascular: reports of generalized weakness, reports continues to feel facial difference on the left All medications have been reviewed PHYSICAL EXAMINATION: GENERAL: The patient is alert and oriented x 1-2, slightly confused, noticed episodes of blank staring, intermittent although and continues throughout the day, well developed, ill-appearing, elderly appearing, thin built HEENT: Pupils are round and equally reacting to light. EOMI. no scleral icterus. No conjunctival pallor. Normocephalic, atraumatic. No pharyngeal erythema. No thyromegaly. CARDIOVASCULAR: S1 and S2 muffled PULMONARY: diminished breath sounds bilaterally with no wheezing or rhonchi noted. ABDOMEN: soft. Nontender on exam. Thin. Non-distended, normoactive bowel sounds. No palpable organomegaly. MUSCULOSKELETAL: No joint swelling or deformity. EXTREMITIES: No cyanosis, clubbing, or pedal edema. NEUROLOGICAL: Gross neurological examination did not reveal any focal deficits. Diffuse weakness SKIN: No rashes. Assessment: Very mild left facial droop concerning for stroke versus TIA, likely TIA per neurology, continued transient episodes of blank staring and unresponsiveness End-stage renal disease on hemodialysis Altered mentation, multifactorial, metabolic encephalopathy possibly secondary to end-stage renal disease as well as concerns of possible acute urinary tract infection, possibly present on admission Pulmonary fibrosis Lymphedema history Borderline hypotension History of polymyalgia rheumatica Generalized weakness with gait dysfunction GI prophylaxis DVT prophylaxis Full code Plan: Continue with aspirin per neurologist and 2D echo bubble study was negative within normal EF. Neurology service following recommending to continue with aspirin and statin therapy recommending PT/OT therapy evaluation. Patient having episodes of blank staring and confusion along with the EEG was performed on 12/05/2024 which showed slightly abnormal due to background slowing suggestive of metabolic encephalopathy with no epileptiform discharges noted.. CT brain showing no acute process PT/OT therapy evaluated the patient and will be planning on home with home care Continue with dialysis per forest pathologist and will need outpatient follow-up Patient was able to provide a urinalysis with positive nitrates and leukocyte Estrace, will continue ceftriaxone urine culture is pending Home medications reviewed and resumed as appropriate Recommend frequent reorientation and family setting with patient as much as possible Due to multiple complex medical issues, overall prognosis is guarded The impression and plan of care has been dictated by Catherine Rojas, nurse practitioner as directed. Dr. John MD I have performed a history and examination and MDM of this patient, discussed the same with the dictator, and agree with the dictator's assessment and plan as written ,documented as a scribe. Based on total visit time, I have performed more than 50% of the visit. Any additional findings or plans will be noted. Objective - Vital Signs Vital signs: Vital Signs Temp 97.9 F 12/06/24 07:03 Pulse 66 12/06/24 07:03 Resp 17 12/06/24 07:03 BP 109/71 12/06/24 07:03 Pulse Ox 97 12/06/24 07:03 FiO2 Intake & Output 0712/06/24 12/06/24 18:59 06:59 18:59 Intake Total 118 Balance 118 Weight 56 kg Intake: Oral 118 Other: Voiding Method Toilet Toilet # Voids 1 1 # Bowel Movements 2 - Labs CBC & Chem 7: 12/05/24 06:52 12/06/24 05:57
[2024-12-06] MEDS: levETIRAcetam IV 500 MG/5 ML VIAL IVP STA (17:44)
[2024-12-06] MEDS: levETIRAcetam IV 500 MG/5 ML VIAL IVP SCH (22:15)
[2024-12-07 09:11] LABS: Basophils # (A) 0.09 X 10*3/uL (0.00-0.10); Basophils % (A) 1.1 %; Eosinophils # (A) 0.12 X 10*3/uL (0.04-0.35); Eosinophils % (A) 1.5 %; HCT 48.8 % (37.2-46.3); HGB 15.1 g/dL (12.0-15.0); Immature Grans, Automated 0.70 %; Lymphocytes # (A) 1.46 X 10*3/uL (0.90-5.00); Lymphocytes % (A) 17.8 %; MCH 31.9 pg (27.0-32.0); MCHC 30.9 g/dL (32.0-37.0); MCV 103.0 FL (80.0-97.0); Monocytes # (A) 1.24 X 10*3/uL (0.20-1.00); Monocytes % (A) 15.1 %; NRBC Per 100 WBC 0 X 10*3/uL (0.00-0.01); Neutrophils # (A) 5.25 X 10*3/uL (1.80-7.70); Neutrophils % (A) 63.8 %; Platelet Count 159 X 10*3/uL (140-440); RBC 4.74 X 10*6/uL (4.10-5.20); RDW 13.2 % (11.5-14.5); WBC 8.22 X 10*3/uL (4.50-10.00)
--- NOTE | 2024-12-07 10:07 | P.PN ---
Subjective Patient is seen in follow-up for end-stage renal disease. She is maintained on hemodialysis on Monday schedule. Resting in bed. No problems with dialysis yesterday. Blood pressure better. Vital signs are stable. General: No acute distress. HEENT: Head exam is unremarkable. On nasal cannula. LUNGS: No audible rhonchi or wheezes. HEART: Rate and Rhythm are regular. ABDOMEN: Nontender. EXTREMITITES: Edema noted. Chronic lymphedema. Objective - Vital Signs Vital signs: Vital Signs Temp 98.2 F 12/07/24 07:09 Pulse 71 12/07/24 07:09 Resp 18 12/07/24 07:09 BP 106/70 12/07/24 07:09 Pulse Ox 99 12/07/24 07:09 FiO2 Intake & Output 12/06/24 12/07/24 12/07/24 18:59 06:59 18:59 Intake Total 400 Output Total 400 1 Balance 0 -1 Intake: Hemodialysis 400 Output: Urine/Stool Mix 1 Hemodialysis 400 Hemodialysis Net Amount 0 Other: Voiding Method Toilet Diaper Diaper Incontinent Incontinent # Voids 1 1 # Bowel Movements 1 1 - Labs CBC & Chem 7: 12/07/24 05:39 12/06/24 05:57 Labs: Abnormal Lab Results - Last 24 Hours (Table) 12/07/24 Range/Units 05:39 Hgb 15.1 H (12.0-15.0) g/dL Hct 48.8 H (37.2-46.3) % MCV 103.0 H (80.0-97.0) FL MCHC 30.9 L (32.0-37.0) g/dL Immature Gran # 0.06 H (0.00-0.04) X 10*3/uL Monocytes # 1.24 H (0.20-1.00) X 10*3/uL Assessment and Plan Plan: Assessment: 1. End-stage renal disease maintained on hemodialysis on Monday schedule. 2. Facial droop with concern for TIA. CT of the brain negative. 3. Chronic kidney disease mineral bone disease maintained on PhosLo. 4. Chronic hypokalemia maintained on potassium supplementation. 5. Metabolic acidosis secondary to chronic kidney disease. On oral bicarb. 6. Orthostatic hypotension. On midodrine. Plan: Hemodialysis Monday. Maintain midodrine. Preserved EF noted on echocardiogram. Decreased dose of gabapentin. Maintain Bumex..
[2024-12-07 10:22] LABS: Anion Gap 15.20 mmol/L (4.00-12.00); BUN/Creat Ratio 11.08 Ratio (12.00-20.00); Blood Urea Nitrogen 26.6 mg/dL (9.0-27.0); Calcium 9.3 mg/dL (8.7-10.3); Carbon Dioxide 22.8 mmol/L (21.6-31.8); Chloride 98 mmol/L (96-109); Glucose 126 mg/dL (70-110); Magnesium 2.0 mg/dL (1.5-2.4); Potassium 4.7 mmol/L (3.5-5.5); Sodium 136 mmol/L (135-145)
[2024-12-07 10:35] LABS: Hepatitis B Surface Antigen Nonreactive (Nonreactive)
[2024-12-07 10:37] LABS: Hepatitis B Surface AB- Quant 108.0 mIU/mL
--- NOTE | 2024-12-07 12:16 | CT ---
EXAMINATION TYPE: CT brain wo con DATE OF EXAM: 12/07/2024 11:37 AM COMPARISON: 12/04/2024. CLINICAL INDICATION: Female, 79 years old with history of altered mental status, AMS TECHNIQUE: Brain: Axial CT images of the brain were obtained with coronal and sagittal reformats created and rev iewed. Contrast used: None. Oral contrast used: None. CT DLP: 995.5 mGycm, Automated exposure control for dose reduction was used. FINDINGS: Brain: Extra-axial spaces: No abnormal extra-axial fluid collections. Ventricular system: Dilatation in proportion to cerebral atrophy. Cerebral parenchyma: Cerebral atrophy. No acute intraparenchymal hemorrhage or mass effect. The cle[place] -white junction is well differentiated. Scattered hypoattenuating areas are seen within the white mat ter. Cerebellum: Unremarkable. Mass effect: No evidence of midline shift. Intracranial vasculature: Atherosclerotic calcifications of the intracranial vessels. Soft tissues: Normal. Calvarium/osseous structures: No depressed skull fracture. Paranasal sinuses and mastoid air cells: Mild scattered paranasal sinus disease. Visualized orbits: Bilateral aphakia IMPRESSION: 1. No acute intracranial process. 2. Nonspecific white matter changes, likely secondary to chronic small vessel ischemic disease. [facility], , 12/07/2024 12:13 PM
--- NOTE | 2024-12-07 13:59 | P.PN ---
Subjective Progress Note Date: 12/07/24 The patient is an 79-year-old female who is seen in neurologic follow-up on December 07, 2024, in cross coverage for Dr. Adalberto Gomes, in collaboration with Tessa Quintana, via teleneurology. The patient's chart has been reviewed. For details regarding events surrounding admission and neurologic consultation, please see the original neurology consultation performed by Dr. Gomes. The patient's nurse is present at the bedside at the time of the evaluation today. She reports that the patient has been essentially nonresponsive this morning. She is arousable only to her name. This has been present since yesterday night. She is not taking any oral medications. Apparently yesterday afternoon, the patient had an episode of confusion. Dr. Gomes was notified of this and a repeat EEG was ordered for Monday. She was empirically started on Keppra, for possible seizure. The patient's initial EEG revealed findings consistent with encephalopathy. The patient reportedly received dialysis yesterday as well as Monday and Monday. Apparently, according to the nurse, "they were unable to get a nything off" with dialysis yesterday. Objective - Vital Signs Vital signs: Vital Signs Temp 98.2 F 12/07/24 07:09 Pulse 71 12/07/24 07:09 Resp 18 12/07/24 07:09 BP 106/70 12/07/24 07:09 Pulse Ox 99 12/07/24 07:09 FiO2 Intake & Output 12/06/24 12/07/24 12/07/24 18:59 06:59 18:59 Intake Total 400 Output Total 400 1 Balance 0 -1 Intake: Hemodialysis 400 Output: Urine/Stool Mix 1 Hemodialysis 400 Hemodialysis Net Amount 0 Other: Voiding Method Toilet Diaper Diaper Incontinent Incontinent # Voids 1 1 # Bowel Movements 1 1 - Exam General: The patient was supine in the bed. She is well-nourished. She is in no acute distress. HEENT: Head is atraumatic, normocephalic. Fundus not visualized. There is no scleral icterus. Mucous membranes are dry. Neck: There is evidence of rigidity Neurological examination Mental status: The patient is arousable to name. She opens her eyes. She smiles when asked to. She does not follow any other commands. The patient is nonverbal. Cranial nerves: Pupils are equal at 3 mm and reactive. They are midline. There is no obvious facial asymmetry. Other cranial nerves were not assessed. Sensation: The patient does respond to noxious stimulation of the bilateral lower extremities. There is slight withdrawal. - Labs CBC & Chem 7: 12/07/24 05:39 12/07/24 05:39 Labs: Abnormal Lab Results - Last 24 Hours (Table) 12/06/24 12/07/24 12/07/24 Range/Units 05:57 05:39 05:39 Hgb 15.1 H (12.0-15.0) g/dL Hct 48.8 H (37.2-46.3) % MCV 103.0 H (80.0-97.0) FL MCHC 30.9 L (32.0-37.0) g/dL Immature Gran # 0.06 H (0.00-0.04) X 10*3/uL Monocytes # 1.24 H (0.20-1.00) X 10*3/uL Anion Gap 15.20 H (4.00-12.00) mmol/L Creatinine 2.4 H (0.6-1.5) mg/dL Est GFR (CKD-EPI) 20 L (>=60) BUN/Creatinine Ratio 11.08 L (12.00-20.00) Ratio Glucose 126 H (70-110) mg/dL Hep Bs Antibody A (Negative) Assessment and Plan Assessment: 1. Altered mental status. Toxic metabolic encephalopathy-worsened today. Possibly secondary to dehydration 2. Possible TIA manifesting with facial droop, slurred speech and drooling. Her symptoms lasted for half a day and then resolved overnight. At present all symptoms have resolved. Current NIH stroke scale is 0. 3. Severe urinary tract infection 4. End-stage renal disease on hemodialysis 5. Osteoarthritis Plan: 1. Repeat CT scan of the brain has been ordered and completed. There are no changes from the previous CT scan 2. Ammonia level has been ordered. Is completed and is less than 9. 3. Repeat EEG will be performed on Monday 4. Continue treatment of urinary tract infection 5. If neurostatus does not improve and EEG continues to be negative for seizure, consider lumbar puncture for further evaluation Time with Patient: Greater than 30 (40 minutes were spent caring for this patient today including, obtaining an interim history, examining the patient, reviewing imaging, chart documentation, labs, placing orders and creating this note)
--- NOTE | 2024-12-07 16:15 | P.PN ---
Subjective Progress Note Date: 12/07/24 This is a pleasant 79 years old female with past medical history of end-stage renal disease on Monday, lymphedema pulmonary fibrosis osteoporosis hypotension and hypocalcemia polymyalgia rheumatica Was sent from dialysis because of subtle left facial droop with no headache dizziness weakness or numbness because of concerns for stroke Patient awake alert looks comfortable denies any other specific complaint like no chest pain pain or dyspnea. No abdominal pain vomiting or diarrhea. No fever, blood pressure low normal but asymptomatic saturating 98% on 2 L oxygen via nasal cannula WBC 12.8 Platelet count 101 Sodium 133, potassium 3.2 creatinine 2.9. AST and ALT within the reference range. CT of the brain is negative for acute process, cerebral atrophy Chest x-ray venous catheter in place, mild pulmonary edema Patient started on aspirin 81 mg by neurologist 12/01 Patient with no new symptoms The subtle left facial droop not noticed today No other new complaints 12/02/2024 Patient is seen and evaluated in follow-up continues to report generalized weakness and currently receiving hemodialysis following. Patient to be evaluated by PT/OT therapy to discuss discharge planning. Patient is afebrile with no reports of chest pain or shortness of breath. Patient is wearing oxygen but denies any shortness of breath. Patient has been tolerating diet with not much oral intake and reports not much of an appetite. Will await PT/OT therapy evaluation and discuss with social work regarding discharge planning. 12/03/2024 Patient is seen in follow-up today continues to report some facial drooping and speech delayed with neurology following. 2D echo with bubble study ordered and pending as part of the TIA/CVA workup and will await report. Echo was ordered on 12/01/2024 by neurology and was just taken this morning 12/03/2024. Patient is afebrile with no reports of chest pain or shortness of breath. Patient is reporting some weakness but was evaluated by physical therapy and will be going home with home care. Patient will continue on hemodialysis outpatient and will also need neurology follow-up outpatient. Pending 2D echo and clearance from consultations for discharge planning 12/04/2024 Patient is seen in follow-up this morning was doing well receiving hemodialysis although shortly into dialysis, patient developed altered mentation and confusion with delayed speech and staring off episodes. Family present at bedside noticed these changes and neurology made aware has ordered EEG and repeat CT. Patient did undergo echo with bubble with a negative bubble study. Patient continues with delayed speech and nonsensical laughing at times. Regarding treatment plan moving forward. Patient was evaluated by physical therapy home care once stabilized. 12/05/2024 Patient is seen and evaluated this morning status post CT of the brain showing no acute changes and EEG has been performed and pending read at this time. Patient continues to have episodes of confusion although appears baseline this morning. Patient will be undergoing another session of hemodialysis tomorrow and will be monitored closely as these episodes were more frequently during dialysis. Patient was able to provide a urine sample with concerns of possible urinary tract infection, will initiate antibiotics and send for urine culture. Encouraged increase activity as tolerated and sitting up more frequently in the chair. Await further to discuss with neurology as this is felt likely due to hemodialysis. 12/06/2024 Patient is seen in follow-up today this morning was lethargic although arousable and continues to have these brief episodes and periods of staring off and unresponsiveness and confusion and then will appear more alert. Patient has had neurological workup which has been negative. EEG showed abnormal due to metabolic encephalopathy otherwise no epileptiform discharges noted. Patient did have an abnormal urine and urine culture is sent and specimen is pending and we will continue with ceftriaxone for now. Patient to continue on hemodialysis and is receiving another dose today. Concerns of dementia as well. 12/07/2024 Patient is evaluated in follow up on the medical floor. She is currently alert x 0 and not speaking/answering any questions or verbal commands. Brain CT shows no acute intracranial process, nonspecific white matter changes likely secondary to chronic small vessel ischemic disease. Urinalysis was significantly abnormal and patient has been started on IV ceftriaxone and urine culture currently pending. Patient has been started on IV keppra BID with concern for seizure and repeat EEG will be completed on Monday. Family at the bedside and updated on plan of care. Review of systems: Constitutional: No reports of fatigue, fever, or chills Cardiovascular: No reports of chest pain or palpitations Respiratory: No reports of shortness of breath or cough GI: No reports of nausea, no reports of vomiting, no diarrhea : No reports of dysuria or retention Neurovascular: reports of generalized weakness, reports continues to feel facial difference on the left All medications have been reviewed PHYSICAL EXAMINATION: GENERAL: The patient is alert and oriented x 1, noticed episodes of blank staring, intermittent although and continues throughout the day, well developed, ill-appearing, elderly appearing, thin built HEENT: Pupils are round and equally reacting to light. EOMI. no scleral icterus. No conjunctival pallor. Normocephalic, atraumatic. No pharyngeal erythema. No thyromegaly. CARDIOVASCULAR: S1 and S2 muffled PULMONARY: diminished breath sounds bilaterally with no wheezing or rhonchi noted. ABDOMEN: soft. Nontender on exam. Thin. Non-distended, normoactive bowel sounds. No palpable organomegaly. MUSCULOSKELETAL: No joint swelling or deformity. EXTREMITIES: No cyanosis, clubbing, or pedal edema. NEUROLOGICAL: Gross neurological examination did not reveal any focal deficits. Diffuse weakness SKIN: No rashes. Assessment: Very mild left facial droop concerning for stroke versus TIA, likely TIA per [place] urology, continued transient episodes of blank staring and unresponsiveness End-stage renal disease on hemodialysis Altered mentation, multifactorial, metabolic encephalopathy possibly secondary to end-stage renal disease as well as concerns of possible acute urinary tract infection, possibly present on admission Pulmonary fibrosis Lymphedema history Borderline hypotension History of polymyalgia rheumatica Generalized weakness with gait dysfunction GI prophylaxis DVT prophylaxis Full code Plan: Continue with aspirin per neurologist and 2D echo bubble study was negative within normal EF. Neurology service following recommending to continue with aspirin and statin therapy recommending PT/OT therapy evaluation. Patient having episodes of blank staring and confusion along with the EEG was performed on 12/05/2024 which showed slightly abnormal due to background slowing suggestive of metabolic encephalopathy with no epileptiform discharges noted.. CT brain showing no acute process PT/OT therapy evaluated the patient and will be planning on home with home care Recommending PT follow up with patient on Monday as her mentation has continued to decline Speech therapy consultation Continue with dialysis per lung puller and will need outpatient follow-up Patient was able to provide a urinalysis with positive nitrates and leukocyte Estrace, will continue ceftriaxone urine culture is pending Home medications reviewed and resumed as appropriate Recommend frequent reorientation and family setting with patient as much as possible Monitor electrolytes and renal function Patient currently not tolerating any oral intake if mentation not improving will consider adding IV fluids cautiously. Nephrology is following The impression and plan of care has been dictated by Catherine Rojas, nurse practitioner as directed. Dr. John MD I have performed a history and examination and MDM of this patient, discussed the same with the dictator, and agree with the dictator's assessment and plan as written ,documented as a scribe. Based on total visit time, I have performed more than 50% of the visit. Any additional findings or plans will be noted. Objective - Vital Signs Vital signs: Vital Signs Temp 98.2 F 12/07/24 13:43 Pulse 69 12/07/24 13:43 Resp 16 12/07/24 13:43 BP 151/85 12/07/24 13:43 Pulse Ox 99 12/07/24 13:43 FiO2 Intake & Output 12/06/24 12/07/24 12/07/24 18:59 06:59 18:59 Intake Total 400 Output Total 400 1 Balance 0 -1 Intake: Hemodialysis 400 Output: Urine/Stool Mix 1 Hemodialysis 400 Hemodialysis Net Amount 0 Other: Voiding Method Toilet Diaper Diaper Incontinent Incontinent # Voids 1 1 3 # Bowel Movements 1 1 3 - Labs CBC & Chem 7: 12/07/24 05:39 12/07/24 05:39 Labs: Abnormal Lab Results - Last 24 Hours (Table) 12/06/24 12/07/24 12/07/24 Range/Units 05:57 05:39 05:39 Hgb 15.1 H (12.0-15.0) g/dL Hct 48.8 H (37.2-46.3) % MCV 103.0 H (80.0-97.0) FL MCHC 30.9 L (32.0-37.0) g/dL Immature Gran # 0.06 H (0.00-0.04) X 10*3/uL Monocytes # 1.24 H (0.20-1.00) X 10*3/uL Anion Gap 15.20 H (4.00-12.00) mmol/L Creatinine 2.4 H (0.6-1.5) mg/dL Est GFR (CKD-EPI) 20 L (>=60) BUN/Creatinine Ratio 11.08 L (12.00-20.00) Ratio Glucose 126 H (70-110) mg/dL Hep Bs Antibody A (Negative) Assessment and Plan Time with Patient: Less than 30
[2024-12-08] MEDS: ZINC OXIDE PASTE (Z-GUARD) 1 APPLIC TOPICAL SCH (02:37)
[2024-12-08 07:34] LABS: Basophils # (A) 0.07 10*3/uL (0.00-0.10); Basophils % (A) 0.9 %; Eosinophils # (A) 0.07 10*3/uL (0.04-0.35); Eosinophils % (A) 0.9 %; HCT 46.4 % (37.2-46.3); HGB 14.8 g/dL (12.0-15.0); Lymphocytes # (A) 1.22 10*3/uL (0.90-5.00); Lymphocytes % (A) 14.9 %; MCH 32.7 pg (27.0-32.0); MCHC 31.9 g/dL (32.0-37.0); MCV 102.7 fL (80.0-97.0); Monocytes # (A) 1.14 10*3/uL (0.20-1.00); Monocytes % (A) 13.9 %; Neutrophils # (A) 5.65 10*3/uL (1.80-7.70); Neutrophils % (A) 68.8 %; Platelet Count 146 10*3/uL (140-440); RBC 4.52 10*6/uL (4.10-5.20); RDW 13.2 % (11.5-14.5); WBC 8.20 10*3/uL (4.50-10.00)
[2024-12-08 07:53] LABS: African American GFR (CKD) 15 (>60 ml/min/1.73 sqM); Anion Gap 16 mmol/L; Blood Urea Nitrogen 46 mg/dL (7-17); Calcium 9.4 mg/dL (8.4-10.2); Carbon Dioxide 20 mmol/L (22-30); Chloride 102 mmol/L (98-107); Glucose 110 mg/dL (74-99); Non-African American GFR(CKD) 13 (>60 ml/min/1.73 sqM); Potassium 3.9 mmol/L (3.5-5.1); Sodium 138 mmol/L (137-145)
--- NOTE | 2024-12-08 11:26 | P.PN ---
Subjective Patient is seen in follow-up for end-stage renal disease. She is maintained on hemodialysis on Monday schedule. Resting in bed. No problems with dialysis Monday. Blood pressure stable. Patient quite lethargic. Vital signs are stable. General: No acute distress. HEENT: Head exam is unremarkable. On nasal cannula. LUNGS: No audible rhonchi or wheezes. HEART: Rate and Rhythm are regular. ABDOMEN: Nontender. EXTREMITITES: Edema noted. Chronic lymphedema. Objective - Vital Signs Vital signs: Vital Signs Temp 98.6 F 12/08/24 06:45 Pulse 70 12/08/24 06:45 Resp 16 12/08/24 08:34 BP 104/70 12/08/24 06:45 Pulse Ox 95 12/08/24 06:45 FiO2 Intake & Output 12/07/24 12/08/24 12/08/24 18:59 06:59 18:59 Other: Voiding Method Diaper Diaper Diaper Incontinent Incontinent Incontinent # Voids 3 # Bowel Movements 3 2 - Labs CBC & Chem 7: 12/08/24 06:28 12/08/24 06:28 Labs: Abnormal Lab Results - Last 24 Hours (Table) 12/08/24 12/08/24 Range/Units 06:28 06:28 Hct 46.4 H (37.2-46.3) % MCV 102.7 H (80.0-97.0) fL MCH 32.7 H (27.0-32.0) pg MCHC 31.9 L (32.0-37.0) g/dL Immature Gran # 0.05 H (0.00-0.04) 10*3/uL Monocytes # 1.14 H (0.20-1.00) 10*3/uL Carbon Dioxide 20 L (22-30) mmol/L BUN 46 H (7-17) mg/dL Creatinine 3.28 H (0.52-1.04) mg/dL Glucose 110 H (74-99) mg/dL Microbiology - Last 24 Hours (Table) 12/05/24 12:51 Urine Culture - Preliminary Urine,Clean Catch Assessment and Plan Plan: Assessment: 1. End-stage renal disease maintained on hemodialysis on Monday schedule. 2. Facial droop with concern for TIA. CT of the brain negative. 3. Chronic kidney disease mineral bone disease maintained on PhosLo. 4. Chronic hypokalemia maintained on potassium supplementation. 5. Metabolic acidosis secondary to chronic kidney disease. On oral bicarb. 6. Orthostatic hypotension. On midodrine. 7. Altered mental status. Neurology following. Plan: Hemodialysis Monday. Maintain midodrine. Preserved EF noted on echocardiogram. Decreased dose of gabapentin. Maintain Bumex. Patient currently not taking any oral medications.
--- NOTE | 2024-12-08 14:58 | P.PN ---
Subjective Progress Note Date: 12/08/24 This is a pleasant 79 years old female with past medical history of end-stage renal disease on Monday, lymphedema pulmonary fibrosis osteoporosis hypotension and hypocalcemia polymyalgia rheumatica Was sent from dialysis because of subtle left facial droop with no headache dizziness weakness or numbness because of concerns for stroke Patient awake alert looks comfortable denies any other specific complaint like no chest pain pain or dyspnea. No abdominal pain vomiting or diarrhea. No fever, blood pressure low normal but asymptomatic saturating 98% on 2 L oxygen via nasal cannula WBC 12.8 Platelet count 101 Sodium 133, potassium 3.2 creatinine 2.9. AST and ALT within the reference range. CT of the brain is negative for acute process, cerebral atrophy Chest x-ray venous catheter in place, mild pulmonary edema Patient started on aspirin 81 mg by neurologist 12/01 Patient with no new symptoms The subtle left facial droop not noticed today No other new complaints 12/02/2024 Patient is seen and evaluated in follow-up continues to report generalized weakness and currently receiving hemodialysis following. Patient to be evaluated by PT/OT therapy to discuss discharge planning. Patient is afebrile with no reports of chest pain or shortness of breath. Patient is wearing oxygen but denies any shortness of breath. Patient has been tolerating diet with not much oral intake and reports not much of an appetite. Will await PT/OT therapy evaluation and discuss with social work regarding discharge planning. 12/03/2024 Patient is seen in follow-up today continues to report some facial drooping and speech delayed with neurology following. 2D echo with bubble study ordered and pending as part of the TIA/CVA workup and will await report. Echo was ordered on 12/01/2024 by neurology and was just taken this morning 12/03/2024. Patient is afebrile with no reports of chest pain or shortness of breath. Patient is reporting some weakness but was evaluated by physical therapy and will be going home with home care. Patient will continue on hemodialysis outpatient and will also need neurology follow-up outpatient. Pending 2D echo and clearance from consultations for discharge planning 12/04/2024 Patient is seen in follow-up this morning was doing well receiving hemodialysis although shortly into dialysis, patient developed altered mentation and confusion with delayed speech and staring off episodes. Family present at bedside noticed these changes and neurology made aware has ordered EEG and repeat CT. Patient did undergo echo with bubble with a negative bubble study. Patient continues with delayed speech and nonsensical laughing at times. Regarding treatment plan moving forward. Patient was evaluated by physical therapy home care once stabilized. 12/05/2024 Patient is seen and evaluated this morning status post CT of the brain showing no acute changes and EEG has been performed and pending read at this time. Patient continues to have episodes of confusion although appears baseline this morning. Patient will be undergoing another session of hemodialysis tomorrow and will be monitored closely as these episodes were more frequently during dialysis. Patient was able to provide a urine sample with concerns of possible urinary tract infection, will initiate antibiotics and send for urine culture. Encouraged increase activity as tolerated and sitting up more frequently in the chair. Await further to discuss with neurology as this is felt likely due to hemodialysis. 12/06/2024 Patient is seen in follow-up today this morning was lethargic although arousable and continues to have these brief episodes and periods of staring off and unresponsiveness and confusion and then will appear more alert. Patient has had neurological workup which has been negative. EEG showed abnormal due to metabolic encephalopathy otherwise no epileptiform discharges noted. Patient did have an abnormal urine and urine culture is sent and specimen is pending and we will continue with ceftriaxone for now. Patient to continue on hemodialysis and is receiving another dose today. Concerns of dementia as well. 12/07/2024 Patient is evaluated in follow up on the medical floor. She is currently alert x 0 and not speaking/answering any questions or verbal commands. Brain CT shows no acute intracranial process, nonspecific white matter changes likely secondary to chronic small vessel ischemic disease. Urinalysis was significantly abnormal and patient has been started on IV ceftriaxone and urine culture currently pending. Patient has been started on IV keppra BID with concern for seizure and repeat EEG will be completed on Monday. Family at the bedside and updated on plan of care. 12/08/2024 Patient evaluated today on the medical floor with family at the bedside. She is more awake and alert following simple commands and able to state her name and who her is at the bedside. Brain CT negative. Neurology recommending to continue IV keppra twice daily and patient scheduled to undergo EEG tomorrow. She is having multiple loose bowel movements, just about every 2 hours. Pending C.Dif sample. Patient is also complaining of diffuse generalized pain usually on gabapentin twice daily which is being held. IV tylenol will be ordered. Remains on IV antibiotics and pending urine culture. Review of systems: Constitutional: No reports of fatigue, fever, or chills Cardiovascular: No reports of chest pain or palpitations Respiratory: No reports of shortness of breath or cough GI: No reports of nausea, no reports of vomiting, no diarrhea : No reports of dysuria or retention Neurovascular: reports of generalized weakness, reports continues to feel facial difference on the left All medications have been reviewed PHYSICAL EXAMINATION: GENERAL: The patient is alert and oriented x 1, noticed episodes of blank staring, intermittent although and continues throughout the day, well developed, ill-appearing, elderly appearing, thin built HEENT: Pupils are round and equally reacting to light. EOMI. no scleral icterus. No conjunctival pallor. Normocephalic, atraumatic. No pharyngeal erythema. No thyromegaly. CARDIOVASCULAR: S1 and S2 muffled PULMONARY: diminished breath sounds bilaterally with no wheezing or rhonchi noted. ABDOMEN: soft. Nontender on exam. Thin. Non-distended, normoactive bowel sounds. No palpable organomegaly. MUSCULOSKELETAL: No joint swelling or deformity. EXTREMITIES: No cyanosis, clubbing, or pedal edema. NEUROLOGICAL: Gross neurological examination did not reveal any focal deficits. Diffuse weakness SKIN: No rashes. Assessment: Very mild left facial droop concerning for stroke versus TIA, likely TIA per neurology, continued transient episodes of blank staring and unresponsiveness End-stage renal disease on hemodialysis Altered mentation, multifactorial, metabolic encephalopathy possibly secondary to end-stage renal disease as well as concerns of possible acute urinary tract infection, possibly present on admission Diarrhea pending C.Dif Urinary tract infection with sepsis Pulmonary fibrosis Lymphedema history Borderline hypotension History of polymyalgia rheumatica Generalized weakness with gait dysfunction GI prophylaxis DVT prophylaxis Full code Plan: Continue aspirin and statin therapy Patient has been started on keppra empirically due to episodes of staring off and altered mentation EEG planned for saturday 12/09 Neurology following Speech therapy consultation Continue with dialysis per rubber process hand and will need outpatient follow-up Patient was able to provide a urinalysis with positive nitrates and leukocyte Estrace, will continue ceftriaxone urine culture is pending Recommend frequent reorientation and family setting with patient as much as possible Monitor electrolytes and renal function Patient currently not tolerating any oral intake if mentation not improving will consider adding IV fluids cautiously. Continue holding gabapentin and IV tylenol has been added for complaints of generalized pain Recommending PT follow up with patient on Monday as her mentation has continued to decline PT initially recommending home with homecare patient may require PERRY pending clinical improvement Family at the bedside updated on plan of care The impression and plan of care has been dictated by Catherine Rojas, nurse practitioner as directed. Dr. John MD I have performed a history and examination and MDM of this patient, discussed the same with the dictator, and agree with the dictator's assessment and plan as written ,documented as a scribe. Based on total visit time, I have performed more than 50% of the visit. Any additional findings or plans will be noted. Objective - Vital Signs Vital signs: Vital Signs Temp 98.6 F 12/08/24 06:45 Pulse 70 12/08/24 06:45 Resp 16 12/08/24 08:34 BP 104/70 12/08/24 06:45 Pulse Ox 95 12/08/24 06:45 FiO2 Intake & Output 12/07/24 12/08/24 12/08/24 18:59 06:59 18:59 Other: Voiding Method Diaper Diaper Diaper Incontinent Incontinent Incontinent # Voids 3 # Bowel Movements 3 2 - Labs CBC & Chem 7: 12/08/24 06:28 12/08/24 06:28 Labs: Abnormal Lab Results - Last 24 Hours (Table) 12/06/24 12/08/24 12/08/24 Range/Units 05:57 06:28 06:28 Hct 46.4 H (37.2-46.3) % MCV 102.7 H (80.0-97.0) fL MCH 32.7 H (27.0-32.0) pg MCHC 31.9 L (32.0-37.0) g/dL Immature Gran # 0.05 H (0.00-0.04) 10*3/uL Monocytes # 1.14 H (0.20-1.00) 10*3/uL Carbon Dioxide 20 L (22-30) mmol/L BUN 46 H (7-17) mg/dL Creatinine 3.28 H (0.52-1.04) mg/dL Glucose 110 H (74-99) mg/dL Hep Bs Antibody A (Negative) Microbiology - Last 24 Hours (Table) 12/05/24 12:51 Urine Culture - Preliminary Urine,Clean Catch Assessment and Plan Time with Patient: Less than 30
[2024-12-08] MEDS: ACETAMINOPHEN IV (For NPO) 1,000 MG in EMPTY BAG 1 BAG IVPB PRN (15:24)
--- NOTE | 2024-12-08 16:17 | P.PN ---
Subjective Progress Note Date: 12/08/24 The patient is an 79-year-old female who is seen in neurologic follow-up on December 08, 2024, in cross coverage for Dr. Adalberto Gomes, in collaboration with Tessa Quintana, via teleneurology. The patient's chart has been reviewed. For details regarding events surrounding admission and neurologic consultation, please see the original neurology consultation performed by Dr. Gomes. The patient's is present at the bedside at the time of the evaluation today. He reports that the patient has had similar episodes of confusion, associated with urinary tract infections. This one however, is the worst. The reports that his has been somewhat responsive this morning. She was able to say hello to him and call him by name. According to the patient's nurse who is present at the bedside, the patient continues to be unable to take medications by mouth. She has received her Keppra, IV and ceftriaxone, IV. The patient has reportedly had diarrhea and so a stool sample has been sent home for evaluation. The patient's reports that the patient has a history of bariatric surgery and frequently has diarrhea. Objective - Vital Signs Vital signs: Vital Signs Temp 98.2 F 12/08/24 13:18 Pulse 74 12/08/24 13:18 Resp 16 12/08/24 13:38 BP 124/77 12/08/24 13:18 Pulse Ox 97 12/08/24 13:18 FiO2 Intake & Output 12/07/24 12/08/24 12/08/24 18:59 06:59 18:59 Other: Voiding Method Diaper Diaper Diaper Incontinent Incontinent Incontinent # Voids 3 1 # Bowel Movements 3 2 - Exam General: The patient is reclining in the bed. She is well-nourished. She is in no acute distress. HEENT: Head is atraumatic, normocephalic. Fundus not visualized. There is no scleral icterus. Mucous membranes are dry. Neurological examination Mental status: The patient is arousable to name. She opens her eyes spontaneously. When asked to open her eyes, the patient states "They are open". She is able to respond verbally to some questions. She reports that the man sitting next to her bed is "my hubby". The patient does move her hands and feet to command. She moves her arms spontaneously. Cranial nerves: Pupils are equal at 3 mm and reactive. They are midline. There is no obvious facial asymmetry. Other cranial nerves were not assessed. Motor: There is slight spontaneous movement of the bilateral upper extremities. She is able to move her feet/toes to command - Labs CBC & Chem 7: 12/08/24 06:28 12/08/24 06:28 Labs: Abnormal Lab Results - Last 24 Hours (Table) 12/08/24 12/08/24 Range/Units 06:28 06:28 Hct 46.4 H (37.2-46.3) % MCV 102.7 H (80.0-97.0) fL MCH 32.7 H (27.0-32.0) pg MCHC 31.9 L (32.0-37.0) g/dL Immature Gran # 0.05 H (0.00-0.04) 10*3/uL Monocytes # 1.14 H (0.20-1.00) 10*3/uL Carbon Dioxide 20 L (22-30) mmol/L BUN 46 H (7-17) mg/dL Creatinine 3.28 H (0.52-1.04) mg/dL Glucose 110 H (74-99) mg/dL Microbiology - Last 24 Hours (Table) 12/05/24 12:51 Urine Culture - Preliminary Urine,Clean Catch Assessment and Plan Assessment: 1. Altered mental status. Toxic metabolic encephalopathy, secondary to severe urinary tract infection. Mild improvement today. 2. Possible TIA manifesting with facial droop, slurred speech and drooling. Her symptoms lasted for half a day and then resolved overnight. At present all symptoms have resolved. Current NIH stroke scale is 0. 3. Severe urinary tract infection 4. End-stage renal disease on hemodialysis 5. Osteoarthritis Plan: 1. Repeat EEG will be performed on Monday 2. Continue treatment of urinary tract infection 3. If neurostatus does not improve and EEG continues to be negative for seizure, consider lumbar puncture for further evaluation Time with Patient: Greater than 30 (40 minutes were spent caring for this patient today including, obtaining an interim history, examining the patient, reviewing imaging, chart documentation, labs, placing orders and creating this n ote)
[2024-12-09] MEDS: LOPERAMIDE 2 MG CAP PO STA (03:45)
[2024-12-09 08:32] LABS: Basophils # (A) 0.12 X 10*3/uL (0.00-0.10); Basophils % (A) 1.2 %; Eosinophils # (A) 0.08 X 10*3/uL (0.04-0.35); Eosinophils % (A) 0.8 %; HCT 46.0 % (37.2-46.3); HGB 13.9 g/dL (12.0-15.0); Immature Grans, Automated 1.00 %; Lymphocytes # (A) 1.33 X 10*3/uL (0.90-5.00); Lymphocytes % (A) 13.1 %; MCH 31.7 pg (27.0-32.0); MCHC 30.2 g/dL (32.0-37.0); MCV 104.8 FL (80.0-97.0); Monocytes # (A) 0.85 X 10*3/uL (0.20-1.00); Monocytes % (A) 8.4 %; NRBC Per 100 WBC 0 X 10*3/uL (0.00-0.01); Neutrophils # (A) 7.68 X 10*3/uL (1.80-7.70); Neutrophils % (A) 75.5 %; Platelet Count 148 X 10*3/uL (140-440); RBC 4.39 X 10*6/uL (4.10-5.20); RDW 13.1 % (11.5-14.5); WBC 10.16 X 10*3/uL (4.50-10.00)
[2024-12-09 08:52] LABS: Magnesium 2.0 mg/dL (1.5-2.4)
[2024-12-09 09:04] LABS: Anion Gap 22.70 mmol/L (4.00-12.00); BUN/Creat Ratio 14.49 Ratio (12.00-20.00); Blood Urea Nitrogen 62.3 mg/dL (9.0-27.0); Calcium 8.9 mg/dL (8.7-10.3); Carbon Dioxide 17.3 mmol/L (21.6-31.8); Chloride 100 mmol/L (96-109); Glucose 84 mg/dL (70-110); Potassium 4.0 mmol/L (3.5-5.5); Sodium 140 mmol/L (135-145)
--- NOTE | 2024-12-09 12:06 | P.PN ---
Subjective Patient is seen for follow-up for end-stage renal disease. Seen on hemodialysis Tolerating treatment well. Blood pressure remains on the lower side. Goal UF 0.5 L Objective - Vital Signs Vital signs: Vital Signs Temp 97.4 F L 12/09/24 07:13 Pulse 63 12/09/24 07:13 Resp 14 12/09/24 07:13 BP 117/78 12/09/24 07:13 Pulse Ox 99 12/09/24 07:13 FiO2 Intake & Output 12/08/24 12/09/24 12/09/24 18:59 06:59 18:59 Intake Total 222 Balance 222 Intake: Oral 222 Other: Voiding Method Diaper Diaper Incontinent Incontinent Incontinent # Voids 1 1 # Bowel Movements 2 - Exam Patient is awake, comfortable, no acute distress Examination of the heart S1 and S2 Examination of the lungs bilateral breath sounds are heard Abdomen is soft nontender Examination lower extremity shows no significant edema - Labs CBC & Chem 7: 12/09/24 05:36 12/09/24 05:36 Labs: Abnormal Lab Results - Last 24 Hours (Table) 12/09/24 12/09/24 Range/Units 05:36 05:36 WBC 10.16 H (4.50-10.00) X 10*3/uL MCV 104.8 H (80.0-97.0) FL MCHC 30.2 L (32.0-37.0) g/dL Immature Gran # 0.10 H (0.00-0.04) X 10*3/uL Basophils # 0.12 H (0.00-0.10) X 10*3/uL Carbon Dioxide 17.3 L (21.6-31.8) mmol/L Anion Gap 22.70 H (4.00-12.00) mmol/L BUN 62.3 H (9.0-27.0) mg/dL Creatinine 4.3 H (0.6-1.5) mg/dL Est GFR (CKD-EPI) 10 L (>=60) Microbiology - Last 24 Hours (Table) 12/05/24 12:51 Urine Culture - Final Urine,Clean Catch Assessment and Plan Assessment: 1. End-stage renal disease on hemodialysis on Monday schedule 2. Facial droop, currently improved. Most likely TIA. CT of the brain was negative 3. CKD mineral bone disorder 5. Mental status changes being followed by neurology 4. Chronic hypokalemia maintained on potassium supplementation Plan: Hemodialysis today with UF 0 to 0.5 L Continue with potassium supplementation
--- NOTE | 2024-12-09 13:30 | EEG ---
DATE OF SERVICE: 12/09/2024 ELECTROENCEPHALOGRAM REPORT PREAMBLE: This is an 79-year-old female who during the hemodialysis had trouble with her speech with some slurring. The patient was transferred to ED. CURRENT MEDICATIONS: The patient is currently on: 1. Keppra. 2. ProAmatine. 3. Myrbetriq. 4. Ceftriaxone. 5. Pepcid. 6. Bumex. 7. Lioresal. 8. Aspirin. EEG FINDINGS: This is a 21-channel digital EEG recorded with video component, utilizing 10/20 international system with referential and bipolar montages. The background consists of moderately well-developed, poorly regulated, mixed frequencies of 5-6 hertz theta, intermixed with some periods and delta activity in bihemispheric region. Some brief, sporadic periods of suppression were also seen. A photic driving response was not seen. Different stages of sleep were not seen. No focal or generalized epileptiform activity was seen. IMPRESSION: This is an abnormal EEG due to background slowing of [id number] degree. This is suggestive of generalized cerebral dysfunction, as can be seen with toxic metabolic encephalopathy or related to diffuse structural brain abnormality. Clinical correlation is recommended. No epileptiform activity was seen. MMODL / IJN: [id number] / [facility]
--- NOTE | 2024-12-09 19:40 | P.PN ---
Subjective Progress Note Date: 12/09/24 This is a pleasant 79 years old female with past medical history of end-stage renal disease on Monday, lymphedema pulmonary fibrosis osteoporosis hypotension and hypocalcemia polymyalgia rheumatica Was sent from dialysis because of subtle left facial droop with no headache dizziness weakness or numbness because of concerns for stroke Patient awake alert looks comfortable denies any other specific complaint like no chest pain pain or dyspnea. No abdominal pain vomiting or diarrhea. No fever, blood pressure low normal but asymptomatic saturating 98% on 2 L oxygen via nasal cannula WBC 12.8 Platelet count 101 Sodium 133, potassium 3.2 creatinine 2.9. AST and ALT within the reference range. CT of the brain is negative for acute process, cerebral atrophy Chest x-ray venous catheter in place, mild pulmonary edema Patient started on aspirin 81 mg by neurologist 12/01 Patient with no new symptoms The subtle left facial droop not noticed today No other new complaints 12/02/2024 Patient is seen and evaluated in follow-up continues to report generalized weakness and currently receiving hemodialysis following. Patient to be evaluated by PT/OT therapy to discuss discharge planning. Patient is afebrile with no reports of chest pain or shortness of breath. Patient is wearing oxygen but denies any shortness of breath. Patient has been tolerating diet with not much oral intake and reports not much of an appetite. Will await PT/OT therapy evaluation and discuss with social work regarding discharge planning. 12/03/2024 Patient is seen in follow-up today continues to report some facial drooping and speech delayed with neurology following. 2D echo with bubble study ordered and pending as part of the TIA/CVA workup and will await report. Echo was ordered on 12/01/2024 by neurology and was just taken this morning 12/03/2024. Patient is afebrile with no reports of chest pain or shortness of breath. Patient is reporting some weakness but was evaluated by physical therapy and will be going home with home care. Patient will continue on hemodialysis outpatient and will also need neurology follow-up outpatient. Pending 2D echo and clearance from consultations for discharge planning 12/04/2024 Patient is seen in follow-up this morning was doing well receiving hemodialysis although shortly into dialysis, patient developed altered mentation and confusion with delayed speech and staring off episodes. Family present at bedside noticed these changes and neurology made aware has ordered EEG and repeat CT. Patient did undergo echo with bubble with a negative bubble study. Patient continues with delayed speech and nonsensical laughing at times. Regarding treatment plan moving forward. Patient was evaluated by physical therapy home care once stabilized. 12/05/2024 Patient is seen and evaluated this morning status post CT of the brain showing no acute changes and EEG has been performed and pending read at this time. Patient continues to have episodes of confusion although appears baseline this morning. Patient will be undergoing another session of hemodialysis tomorrow and will be monitored closely as these episodes were more frequently during dialysis. Patient was able to provide a urine sample with concerns of possible urinary tract infection, will initiate antibiotics and send for urine culture. Encouraged increase activity as tolerated and sitting up more frequently in the chair. Await further to discuss with neurology as this is felt likely due to hemodialysis. 12/06/2024 Patient is seen in follow-up today this morning was lethargic although arousable and continues to have these brief episodes and periods of staring off and unresponsiveness and confusion and then will appear more alert. Patient has had neurological workup which has been negative. EEG showed abnormal due to metabolic encephalopathy otherwise no epileptiform discharges noted. Patient did have an abnormal urine and urine culture is sent and specimen is pending and we will continue with ceftriaxone for now. Patient to continue on hemodialysis and is receiving another dose today. Concerns of dementia as well. 12/07/2024 Patient is evaluated in follow up on the medical floor. She is currently alert x 0 and not speaking/answering any questions or verbal commands. Brain CT shows no acute intracranial process, nonspecific white matter changes likely secondary to chronic small vessel ischemic disease. Urinalysis was significantly abnormal and patient has been started on IV ceftriaxone and urine culture currently pending. Patient has been started on IV keppra BID with concern for seizure and repeat EEG will be completed on Monday. Family at the bedside and updated on plan of care. 12/08/2024 Patient evaluated today on the medical floor with family at the bedside. She is more awake and alert following simple commands and able to state her name and wh o her is at the bedside. Brain CT negative. Neurology recommending to continue IV keppra twice daily and patient scheduled to undergo EEG tomorrow. She is having multiple loose bowel movements, just about every 2 hours. Pending C.Dif sample. Patient is also complaining of diffuse generalized pain usually on gabapentin twice daily which is being held. IV tylenol will be ordered. Remains on IV antibiotics and pending urine culture. 12/09/2024 Patient is seen in follow-up today continues to be extremely confused at times. Patient is answering questions delayed although appropriately. Patient is scheduled to receive hemodialysis again today with nephrology following closely and neurology following undergoing extensive workup including a repeat EEG this morning. Patient is afebrile and was maintained on antibiotics and has received adequate antibiotic course and will discontinue and monitor closely off antibiotic therapy. Patient is afebrile and white count is mildly elevated at 10.16, hemoglobin is stable at 13.9, sodium 140 with a potassium of 4.0, creatinine is worsening at 4.3 and BUN is 62.3. C. difficile testing was negative. Patient is having loose stools. Review of systems: Constitutional: No reports of fatigue, fever, or chills Cardiovascular: No reports of chest pain or palpitations Respiratory: No reports of shortness of breath or cough GI: No reports of nausea, no reports of vomiting, no diarrhea : No reports of dysuria or retention Neurovascular: reports of generalized weakness, reports continues to feel facial difference on the left All medications have been reviewed PHYSICAL EXAMINATION: GENERAL: The patient is alert and oriented x 1, continued. Noticed episodes of blank staring, intermittent although and continues throughout the day, well developed, ill-appearing, elderly appearing, thin built HEENT: Pupils are round and equally reacting to light. EOMI. no scleral icterus. No conjunctival pallor. Normocephalic, atraumatic. No pharyngeal erythema. No thyromegaly. CARDIOVASCULAR: S1 and S2 muffled PULMONARY: diminished breath sounds bilaterally with no wheezing or rhonchi noted. ABDOMEN: soft. Nontender on exam. Thin. Non-distended, normoactive bowel sounds. No palpable organomegaly. MUSCULOSKELETAL: No joint swelling or deformity. EXTREMITIES: No cyanosis, clubbing, or pedal edema. NEUROLOGICAL: Gross neurological examination did not reveal any focal deficits. Diffuse weakness SKIN: No rashes. Assessment: Very mild left facial droop concerning for stroke versus TIA, likely TIA per neurology, continued transient episodes of blank staring and unresponsiveness, scheduled to undergo repeat EEG today 12/09/2024 End-stage renal disease on hemodialysis Altered mentation, multifactorial, metabolic encephalopathy possibly secondary to end-stage renal disease as well as concerns of possible acute urinary tract infection, possibly present on admission Diarrhea, negative, likely secondary to antibiotic use C.Dif Urinary tract infection with sepsis, present on admission Pulmonary fibrosis Lymphedema history Borderline hypotension History of polymyalgia rheumatica Generalized weakness with gait dysfunction Severe protein calorie malnutrition with a BMI of 21.9 GI prophylaxis DVT prophylaxis Full code Plan: Continue aspirin and statin therapy Patient has been started on keppra empirically due to episodes of staring off and altered mentation EEG done today 12/09, pending read Neurology following Speech therapy consultation. Recommend strict aspiration precautions and head of the bed elevated 30 to 45 degrees at all times. Patient is high risk for aspiration Continue with dialysis per reimbursement director and will need outpatient follow-up Patient was able to provide a urinalysis with positive nitrates and leukocyte Estrace, patient has received adequate antibiotics and will discontinue and monitor closely off antibiotic therapy Recommend frequent reorientation and family setting with patient as much as possible Monitor electrolytes and renal function Patient currently not tolerating any oral intake if mentation not improving will consider adding IV fluids cautiously. Continue holding gabapentin and IV tylenol has been added for complaints of generalized pain Recommending PT follow up with patient as patient continues to be significantly weak and has had prolonged hospitalization. Patient may likely require rehab on discharge The impression and plan of care has been dictated by Catherine Rojas, Nurse Practitioner as directed. Dr. Favian MD I have performed a history and examination and MDM of this patient, discussed the same with the dictator, and agree with the dictator's assessment and plan as written ,documented as a scribe. Based on total visit time, I have performed more than 50% of the visit. Objective - Vital Signs Vital signs: Vital Signs Temp 97.4 F L 12/09/24 01:39 Pulse 60 12/09/24 01:39 Resp 15 12/09/24 01:39 BP 125/79 12/09/24 01:39 Pulse Ox 100 12/09/24 01:39 FiO2 Intake & Output 12/08/24 12/09/24 12/09/24 18:59 06:59 18:59 Intake Total 222 Balance 222 Intake: Oral 222 Other: Voiding Method Diaper Diaper Incontinent Incontinent # Voids 1 1 # Bowel Movements 2 - Labs CBC & Chem 7: 12/09/24 05:36 12/09/24 05:36 Labs: Abnormal Lab Results - Last 24 Hours (Table) 12/08/24 12/08/24 Range/Units 06:28 06:28 Hct 46.4 H (37.2-46.3) % MCV 102.7 H (80.0-97.0) fL MCH 32.7 H (27.0-32.0) pg MCHC 31.9 L (32.0-37.0) g/dL Immature Gran # 0.05 H (0.00-0.04) 10*3/uL Monocytes # 1.14 H (0.20-1.00) 10*3/uL Carbon Dioxide 20 L (22-30) mmol/L BUN 46 H (7-17) mg/dL Creatinine 3.28 H (0.52-1.04) mg/dL Glucose 110 H (74-99) mg/dL Microbiology - Last 24 Hours (Table) 12/05/24 12:51 Urine Culture - Final Urine,Clean Catch
--- NOTE | 2024-12-09 20:04 | P.PN ---
Subjective Progress Note Date: 12/09/24 Patient was initially seen by Dr. Adalberto Gomes, and then followed up by Dr. Flower over the weekend. I am seeing this patient for the first time today. Patient is a 79-year-old female with altered mental status that is recurrent and at 1 point felt possibly disequilibrium from dialysis. Patient had an episode of left facial droop. EEG showed triphasic waves. CT head was negative. Patient was doing well, but on Monday, patient became severely confused. Dr. Gomes placed her on Keppra and ordered repeat EEG. Patient was seen by Dr. Flower over the weekend, noticed mild improvement in mental status. Patient does have a UTI. Objective - Vital Signs Vital signs: Vital Signs Temp 97.6 F 12/09/24 14:41 Pulse 60 12/09/24 14:41 Resp 14 12/09/24 14:41 BP 126/77 12/09/24 14:41 Pulse Ox 100 12/09/24 14:41 FiO2 Intake & Output 12/09/24 12/09/24 12/10/24 06:59 18:59 06:59 Intake Total 600 Output Total 500 Balance 100 Intake: Intake, IV Titration 100 Amount ACETAMINOPHEN IV (For NPO 100 ) 1,000 mg In Empty Bag 1 bag @ 400 mls/hr IVPB Q6HR PRN Rx#:[id number] Hemodialysis 500 Output: Hemodialysis 420 Hemodialysis Net Amount 80 Other: Voiding Method Diaper Incontinent Incontinent # Voids 1 1 # Bowel Movements 2 - Exam Patient is laying comfortably in the bed. In no acute distress. Patient appears somewhat cachectic. She is making eye contact. She is smiling. Patient states "I am fine how are you". Patient denies any headache. Patient knows it is December and the year is 2024. Patient knows it is [facility]. Speech and language functions are normal. Patient is following directions. She is somewhat achy on testing. Patient has some bruises. - Labs CBC & Chem 7: 12/09/24 05:36 12/09/24 05:36 Labs: Abnormal Lab Results - Last 24 Hours (Table) 12/09/24 12/09/24 Range/Units 05:36 05:36 WBC 10.16 H (4.50-10.00) X 10*3/uL MCV 104.8 H (80.0-97.0) FL MCHC 30.2 L (32.0-37.0) g/dL Immature Gran # 0.10 H (0.00-0.04) X 10*3/uL Basophils # 0.12 H (0.00-0.10) X 10*3/uL Carbon Dioxide 17.3 L (21.6-31.8) mmol/L Anion Gap 22.70 H (4.00-12.00) mmol/L BUN 62.3 H (9.0-27.0) mg/dL Creatinine 4.3 H (0.6-1.5) mg/dL Est GFR (CKD-EPI) 10 L (>=60) Microbiology - Last 24 Hours (Table) 12/05/24 12:51 Urine Culture - Final Urine,Clean Catch Assessment and Plan Assessment: * Altered mental status. Toxic metabolic encephalopathy, secondary to severe UTI. * Acute UTI * Possible TIA manifesting with facial droop, slurred speech and drooling. Her symptoms lasted for half a day and then resolved overnight. At present all symptoms have resolved. Current NIH stroke scale is 0. * End-stage renal disease on hemodialysis * osteoarthritis Plan: * Repeat EEG today on 12/09/2024 was abnormal due to background slowing of moderate to severe degree. This is suggestive of generalized cerebral dysfunction as can be seen with toxic metabolic encephalopathy related to diffuse structural brain abnormality. Clinical correlation is recommended. No epileptiform activity was seen. * Patient had an episode of altered mental status. Dr. Gomes started patient on Keppra 500 mg twice daily. She is tolerating it well. Patient's mentation seems to be back to baseline. * Repeat CT head 12/07/2024: No acute intracranial process. Nonspecific white matter changes, likely secondary to chronic small vessel ischemic disease. * Initial EEG 12/05/2024 was abnormal. The background slowing is suggestive of mild encephalopathy. triphasic morphology likely due to toxic-metabolic derangement. No seizure or discharge. * 2-D echo: Normal LV function. negative bubble study. * Carotid Doppler: No hemodynamically significant stenosis * Fasting a.m. lipid panel: Triglycerides 106, cholesterol is 132, LDL is 41 and HDL is 69. * Hemoglobin A1c: 5.3 * Recommend normotensive blood pressure * Start aspirin 81 mg daily. Patient has received a loading dose of aspirin 325 mg in the ER. Patient was not on any antiplatelet medication at home. * Neuro checks every 4 hours. * Telemetry monitoring rule out any arrhythmia * PT, OT, speech therapy * Nephrology is on board. * DVT prophylaxis: Heparin 5000 units subcu every 12 hours * Upon discharge, recommend the patient to follow-up with outpatient neurologist within 2-3 weeks. * Neurologically clear for discharge.
[2024-12-10 08:38] LABS: Basophils # (A) 0.12 X 10*3/uL (0.00-0.10); Basophils % (A) 1.4 %; Eosinophils # (A) 0.24 X 10*3/uL (0.04-0.35); Eosinophils % (A) 2.8 %; HCT 44.0 % (37.2-46.3); HGB 13.5 g/dL (12.0-15.0); Immature Grans, Automated 0.70 %; Lymphocytes # (A) 1.57 X 10*3/uL (0.90-5.00); Lymphocytes % (A) 18.2 %; MCH 32.1 pg (27.0-32.0); MCHC 30.7 g/dL (32.0-37.0); MCV 104.5 FL (80.0-97.0); Monocytes # (A) 0.64 X 10*3/uL (0.20-1.00); Monocytes % (A) 7.4 %; NRBC Per 100 WBC 0 X 10*3/uL (0.00-0.01); Neutrophils # (A) 5.99 X 10*3/uL (1.80-7.70); Neutrophils % (A) 69.5 %; Platelet Count 151 X 10*3/uL (140-440); RBC 4.21 X 10*6/uL (4.10-5.20); RDW 13.0 % (11.5-14.5); WBC 8.62 X 10*3/uL (4.50-10.00)
[2024-12-10 08:53] LABS: ALT 42 U/L (8-44); AST 37 U/L (13-35); Albumin 3.3 g/dL (3.8-4.9); Albumin/Globulin Ratio 1.18 Ratio (1.60-3.17); Alkaline Phosphatase 181 U/L (41-126); Anion Gap 19.20 mmol/L (4.00-12.00); BUN/Creat Ratio 13.14 Ratio (12.00-20.00); Blood Urea Nitrogen 38.1 mg/dL (9.0-27.0); Calcium 8.9 mg/dL (8.7-10.3); Carbon Dioxide 19.8 mmol/L (21.6-31.8); Chloride 96 mmol/L (96-109); Globulin 2.8 g/dL (1.6-3.3); Glucose 78 mg/dL (70-110); Magnesium 2.0 mg/dL (1.5-2.4); Potassium 3.6 mmol/L (3.5-5.5); Sodium 135 mmol/L (135-145); Total Protein 6.1 g/dL (6.2-8.2)
--- NOTE | 2024-12-10 14:49 | P.PN ---
Subjective Progress Note Date: 12/10/24 This is a pleasant 79 years old female with past medical history of end-stage renal disease on Monday, lymphedema pulmonary fibrosis osteoporosis hypotension and hypocalcemia polymyalgia rheumatica Was sent from dialysis because of subtle left facial droop with no headache dizziness weakness or numbness because of concerns for stroke Patient awake alert looks comfortable denies any other specific complaint like no chest pain pain or dyspnea. No abdominal pain vomiting or diarrhea. No fever, blood pressure low normal but asymptomatic saturating 98% on 2 L oxygen via nasal cannula WBC 12.8 Platelet count 101 Sodium 133, potassium 3.2 creatinine 2.9. AST and ALT within the reference range. CT of the brain is negative for acute process, cerebral atrophy Chest x-ray venous catheter in place, mild pulmonary edema Patient started on aspirin 81 mg by neurologist 12/01 Patient with no new symptoms The subtle left facial droop not noticed today No other new complaints 12/02/2024 Patient is seen and evaluated in follow-up continues to report generalized weakness and currently receiving hemodialysis following. Patient to be evaluated by PT/OT therapy to discuss discharge planning. Patient is afebrile with no reports of chest pain or shortness of breath. Patient is wearing oxygen but denies any shortness of breath. Patient has been tolerating diet with not much oral intake and reports not much of an appetite. Will await PT/OT therapy evaluation and discuss with social work regarding discharge planning. 12/03/2024 Patient is seen in follow-up today continues to report some facial drooping and speech delayed with neurology following. 2D echo with bubble study ordered and pending as part of the TIA/CVA workup and will await report. Echo was ordered on 12/01/2024 by neurology and was just taken this morning 12/03/2024. Patient is afebrile with no reports of chest pain or shortness of breath. Patient is reporting some weakness but was evaluated by physical therapy and will be going home with home care. Patient will continue on hemodialysis outpatient and will also need neurology follow-up outpatient. Pending 2D echo and clearance from consultations for discharge planning 12/04/2024 Patient is seen in follow-up this morning was doing well receiving hemodialysis although shortly into dialysis, patient developed altered mentation and confusion with delayed speech and staring off episodes. Family present at bedside noticed these changes and neurology made aware has ordered EEG and repeat CT. Patient did undergo echo with bubble with a negative bubble study. Patient continues with delayed speech and nonsensical laughing at times. Regarding treatment plan moving forward. Patient was evaluated by physical therapy home care once stabilized. 12/05/2024 Patient is seen and evaluated this morning status post CT of the brain showing no acute changes and EEG has been performed and pending read at this time. Patient continues to have episodes of confusion although appears baseline this morning. Patient will be undergoing another session of hemodialysis tomorrow and will be monitored closely as these episodes were more frequently during dialysis. Patient was able to provide a urine sample with concerns of possible urinary tract infection, will initiate antibiotics and send for urine culture. Encouraged increase activity as tolerated and sitting up more frequently in the chair. Await further to discuss with neurology as this is felt likely due to hemodialysis. 12/06/2024 Patient is seen in follow-up today this morning was lethargic although arousable and continues to have these brief episodes and periods of staring off and unresponsiveness and confusion and then will appear more alert. Patient has had neurological workup which has been negative. EEG showed abnormal due to metabolic encephalopathy otherwise no epileptiform discharges noted. Patient did have an abnormal urine and urine culture is sent and specimen is pending and we will continue with ceftriaxone for now. Patient to continue on hemodialysis and is receiving another dose today. Concerns of dementia as well. 12/07/2024 Patient is evaluated in follow up on the medical floor. She is currently alert x 0 and not speaking/answering any questions or verbal commands. Brain CT shows no acute intracranial process, nonspecific white matter changes likely secondary to chronic small vessel ischemic disease. Urinalysis was significantly abnormal and patient has been started on IV ceftriaxone and urine culture currently pending. Patient has been started on IV keppra BID with concern for seizure and repeat EEG will be completed on Monday. Family at the bedside and updated on plan of care. 12/08/2024 Patient evaluated today on the medical floor with family at the bedside. She is more awake and alert following simple commands and able to state her name and wh o her is at the bedside. Brain CT negative. Neurology recommending to continue IV keppra twice daily and patient scheduled to undergo EEG tomorrow. She is having multiple loose bowel movements, just about every 2 hours. Pending C.Dif sample. Patient is also complaining of diffuse generalized pain usually on gabapentin twice daily which is being held. IV tylenol will be ordered. Remains on IV antibiotics and pending urine culture. 12/09/2024 Patient is seen in follow-up today continues to be extremely confused at times. Patient is answering questions delayed although appropriately. Patient is scheduled to receive hemodialysis again today with nephrology following closely and neurology following undergoing extensive workup including a repeat EEG this morning. Patient is afebrile and was maintained on antibiotics and has received adequate antibiotic course and will discontinue in the next 1 to 2 days. Patient is afebrile and white count is mildly elevated at 10.16, hemoglobin is stable at 13.9, sodium 140 with a potassium of 4.0, creatinine is worsening at 4.3 and BUN is 62.3. C. difficile testing was negative. Patient is having loose stools. 12/10/2024 Patient is seen in follow-up this morning continues to be extremely lethargic and weak and initially plan was for patient to return home although after speaking with at the bedside patient is extremely weak and he is agreeable to rehab as he cannot take care of her at home and get her in and out of the car multiple times a week for dialysis. Patient evaluated by PT/OT therapy and is recommending rehab and social work is following making referrals to [facility]. Awaiting medical review and unsure if patient will require authorization. Patient is currently afebrile. Review of systems: Constitutional: reports of fatigue, no fever, or chills Cardiovascular: No reports of chest pain or palpitations Respiratory: No reports of shortness of breath or cough GI: No reports of nausea, no reports of vomiting, no diarrhea : No reports of dysuria or retention Neurovascular: reports of generalized weakness, reports continues to feel facial difference on the left All medications have been reviewed PHYSICAL EXAMINATION: GENERAL: The patient is alert and oriented x 1, continued occasional confusion and very delayed although is answering appropriately. Noticed episodes of blank staring, intermittent although and continues throughout the day, well developed, ill-appearing, elderly appearing, thin built HEENT: Pupils are round and equally reacting to light. EOMI. no scleral icterus. No conjunctival pallor. Normocephalic, atraumatic. No pharyngeal erythema. No thyromegaly. CARDIOVASCULAR: S1 and S2 muffled PULMONARY: diminished breath sounds bilaterally with no wheezing or rhonchi noted. ABDOMEN: soft. Nontender on exam. Thin. Non-distended, normoactive bowel sounds. No palpable organomegaly. MUSCULOSKELETAL: No joint swelling or deformity. EXTREMITIES: No cyanosis, clubbing, or pedal edema. NEUROLOGICAL: Gross neurological examination did not reveal any focal deficits. Diffuse weakness SKIN: No rashes. Assessment: Very mild left facial droop concerning for stroke versus TIA, likely TIA per neurology, continued transient episodes of blank staring and unresponsiveness, underwent repeat EEG today 12/09/2024 showing abnormal with no epileptiform discharges, likely secondary to toxic/metabolic encephalopathy End-stage renal disease on hemodialysis Altered mentation, multifactorial, metabolic encephalopathy possibly secondary to end-stage renal disease as well as concerns of possible acute urinary tract infection, possibly present on admission Diarrhea, negative, likely secondary to antibiotic use C.Dif Urinary tract infection with sepsis, present on admission Pulmonary fibrosis Lymphedema history Borderline hypotension History of polymyalgia rheumatica Generalized weakness with gait dysfunction Severe protein calorie malnutrition with a BMI of 21.9 GI prophylaxis DVT prophylaxis Full code Plan: Continue aspirin and statin therapy Patient has been started on keppra empirically due to episodes of staring off and altered mentation, neurology recommends to continue with outpatient follow- up, EEG shows abnormal due to slowing with no epileptiform discharges noted Speech therapy evaluation ongoing. Recommend strict aspiration precautions and head of the bed elevated 30 to 45 degrees at all times. Patient is high risk for aspiration Continue with dialysis per quality control tech raw materials and will need outpatient follow-up Patient was able to provide a urinalysis with positive nitrates and leukocyte Estrace, patient is maintained on ceftriaxone and will continue for now Recommend frequent reorientation and family setting with patient as much as possible. at the bedside reports her mentation is improved and at baseline and only began improving after antibiotic use Monitor electrolytes and renal function, plan for dialysis tomorrow on Monday , 12/11/2024 Encourage supplements and small frequent meals. Continue holding gabapentin and IV tylenol has been added for complaints of generalized pain Patient was evaluated by PT as patient continues to be significantly weak and has had prolonged hospitalization. Patient will require rehab on discharge and family is agreeable. Patient at the bedside reports he cannot take care of her and get her in and out of the car multiple times for dialysis. Patient would benefit from continued PT/OT therapy at rehab for strength and mobility. Social work is following placing referrals and plan is for possible [place] Possible discharge planning in the next 24 to 48 hours The impression and plan of care has been dictated by Catherine Rojas, Nurse Practitioner as directed. Dr. Favian MD I have performed a history and examination and MDM of this patient, discussed the same with the dictator, and agree with the dictator's assessment and plan as written ,documented as a scribe. Based on total visit time, I have performed more than 50% of the visit. Objective - Vital Signs Vital signs: Vital Signs Temp 97.5 F L 12/10/24 14:28 Pulse 60 12/10/24 14:28 Resp 15 12/10/24 14:28 BP 109/68 12/10/24 14:28 Pulse Ox 99 12/10/24 14:28 FiO2 Intake & Output 12/09/24 12/10/24 12/10/24 18:59 06:59 18:59 Intake Total 600 Output Total 500 Balance 100 Intake: Intake, IV Titration 100 Amount ACETAMINOPHEN IV (For NPO 100 ) 1,000 mg In Empty Bag 1 bag @ 400 mls/hr IVPB Q6HR PRN Rx#:[id number] Hemodialysis 500 Output: Hemodialysis 420 Hemodialysis Net Amount 80 Other: Voiding Method Incontinent Incontinent Incontinent # Voids 1 0 1 # Bowel Movements 1 - Labs CBC & Chem 7: 12/10/24 05:52 12/10/24 05:52 Labs: Abnormal Lab Results - Last 24 Hours (Table) 12/10/24 12/10/24 Range/Units 05:52 05:52 MCV 104.5 H (80.0-97.0) FL MCH 32.1 H (27.0-32.0) pg MCHC 30.7 L (32.0-37.0) g/dL Immature Gran # 0.06 H (0.00-0.04) X 10*3/uL Basophils # 0.12 H (0.00-0.10) X 10*3/uL Carbon Dioxide 19.8 L (21.6-31.8) mmol/L Anion Gap 19.20 H (4.00-12.00) mmol/L BUN 38.1 H (9.0-27.0) mg/dL Creatinine 2.9 H (0.6-1.5) mg/dL Est GFR (CKD-EPI) 16 L (>=60) Total Bilirubin 0.2 L (0.3-1.2) mg/dL AST 37 H (13-35) U/L Alkaline Phosphatase 181 H (41-126) U/L Total Protein 6.1 L (6.2-8.2) g/dL Albumin 3.3 L (3.8-4.9) g/dL Albumin/Globulin Ratio 1.18 L (1.60-3.17) Ratio
[2024-12-10 16:23] LABS: Vitamin B12 1451.0 pg/mL (200.0-944.0)
--- NOTE | 2024-12-10 18:57 | P.PN ---
Subjective Progress Note Date: 12/10/24 12/10/2024: Patient was seen for follow-up. Nurse reported early this morning that she is not responding. She will track with her eyes when you say her name but she has not spoken and not following commands. I came to see patient, and apparently now she is fully communicating, talking making jokes. Patient's relative was present, who mentions that she gets these episodes whenever she has UTI. 12/09/2024: Patient was initially seen by Dr. Adalberto Gomes, and then followed up by Dr. Flower over the weekend. I am seeing this patient for the first time today. Patient is a 79-year-old female with altered mental status that is recurrent and at 1 point felt possibly disequilibrium from dialysis. Patient had an episode of left facial droop. EEG showed triphasic waves. CT head was negative. Patient was doing well, but on Monday, patient became severely confused. Dr. Gomes placed her on Keppra and ordered repeat EEG. Patient was seen by Dr. Flower over the weekend, noticed mild improvement in mental status. Patient does have a UTI. Objective - Vital Signs Vital signs: Vital Signs Temp 97.5 F L 12/10/24 14:28 Pulse 60 12/10/24 14:28 Resp 15 12/10/24 14:28 BP 109/68 12/10/24 14:28 Pulse Ox 99 12/10/24 14:28 FiO2 Intake & Output 12/09/24 12/10/24 12/10/24 18:59 06:59 18:59 Intake Total 600 Output Total 500 Balance 100 Intake: Intake, IV Titration 100 Amount ACETAMINOPHEN IV (For NPO 100 ) 1,000 mg In Empty Bag 1 bag @ 400 mls/hr IVPB Q6HR PRN Rx#:[id number] Hemodialysis 500 Output: Hemodialysis 420 Hemodialysis Net Amount 80 Other: Voiding Method Incontinent Incontinent Incontinent # Voids 1 0 1 # Bowel Movements 1 - Exam Patient is laying comfortably in the bed. In no acute distress. Patient appears somewhat cachectic. She is making eye contact. She is smiling. Patient denies any headache. Patient knows it is December and the year is 2024. Patient knows it is [facility]. Speech and language functions are normal. Patient is following directions. She is somewhat achy on testing. Patient has some bruises. - Labs CBC & Chem 7: 12/10/24 05:52 12/10/24 05:52 Labs: Abnormal Lab Results - Last 24 Hours (Table) 12/10/24 12/10/24 12/10/24 Range/Units 05:52 05:52 10:55 MCV 104.5 H (80.0-97.0) FL MCH 32.1 H (27.0-32.0) pg MCHC 30.7 L (32.0-37.0) g/dL Immature Gran # 0.06 H (0.00-0.04) X 10*3/uL Basophils # 0.12 H (0.00-0.10) X 10*3/uL Carbon Dioxide 19.8 L (21.6-31.8) mmol/L Anion Gap 19.20 H (4.00-12.00) mmol/L BUN 38.1 H (9.0-27.0) mg/dL Creatinine 2.9 H (0.6-1.5) mg/dL Est GFR (CKD-EPI) 16 L (>=60) Total Bilirubin 0.2 L (0.3-1.2) mg/dL AST 37 H (13-35) U/L Alkaline Phosphatase 181 H (41-126) U/L Total Protein 6.1 L (6.2-8.2) g/dL Albumin 3.3 L (3.8-4.9) g/dL Albumin/Globulin Ratio 1.18 L (1.60-3.17) Ratio Vitamin B12 (200.0-944.0) pg/mL Folate 3.10 L (4.40-31.00) ng/mL 12/10/24 Range/Units 10:55 MCV (80.0-97.0) FL MCH (27.0-32.0) pg MCHC (32.0-37.0) g/dL Immature Gran # (0.00-0.04) X 10*3/uL Basophils # (0.00-0.10) X 10*3/uL Carbon Dioxide (21.6-31.8) mmol/L Anion Gap (4.00-12.00) mmol/L BUN (9.0-27.0) mg/dL Creatinine (0.6-1.5) mg/dL Est GFR (CKD-EPI) (>=60) Total Bilirubin (0.3-1.2) mg/dL AST (13-35) U/L Alkaline Phosphatase (41-126) U/L Total Protein (6.2-8.2) g/dL Albumin (3.8-4.9) g/dL Albumin/Globulin Ratio (1.60-3.17) Ratio Vitamin B12 1451.0 H (200.0-944.0) pg/mL Folate (4.40-31.00) ng/mL Assessment and Plan Assessment: * Altered mental status. Toxic metabolic encephalopathy, secondary to severe UTI. * Acute UTI * Possible TIA manifesting with facial droop, slurred speech and drooling. Her symptoms lasted for half a day and then resolved overnight. At present all symptoms have resolved. Current NIH stroke scale is 0. * End-stage renal disease on hemodialysis * osteoarthritis Plan: * Patient called for worsening mental status, but she is at baseline. * Repeat EEG on 12/09/2024 was abnormal due to background slowing of moderate to severe degree. This is suggestive of generalized cerebral dysfunction as can be seen with toxic metabolic encephalopathy related to diffuse structural brain abnormality. Clinical correlation is recommended. No epileptiform activity was seen. * Patient had an episode of altered mental status. Dr. Gomes started patient on Keppra 500 mg twice daily. She is tolerating it well. Patient's mentation seems to be back to baseline. * Repeat CT head 12/07/2024: No acute intracranial process. Nonspecific white matter changes, likely secondary to chronic small vessel ischemic disease. * Initial EEG 12/05/2024 was abnormal. The background slowing is suggestive of mild encephalopathy. triphasic morphology likely due to toxic-metabolic derangement. No seizure or discharge. * 2-D echo: Normal LV function. negative bubble study. * Carotid Doppler: No hemodynamically significant stenosis * Fasting a.m. lipid panel: Triglycerides 106, cholesterol is 132, LDL is 41 and HDL is 69. * Hemoglobin A1c: 5.3 * Recommend normotensive blood pressure * Start aspirin 81 mg daily. Patient has received a loading dose of aspirin 325 mg in the ER. Patient was not on any antiplatelet medication at home. * Neuro checks every 4 hours. * Telemetry monitoring rule out any arrhythmia * PT, OT, speech therapy * Nephrology is on board. * DVT prophylaxis: Heparin 5000 units subcu every 12 hours * Upon discharge, recommend the patient to follow-up with outpatient neurologist within 2-3 weeks. * Neurologically clear for discharge.
--- NOTE | 2024-12-11 12:50 | P.PN ---
Subjective Patient is seen for follow-up for end-stage renal disease. Seen on hemodialysis Tolerating treatment well. Goal UF about 1 L. Systolic blood pressure in the 140s today Patient is however not communicating much today. She does open her eyes and r espond but is not talking much. Objective - Vital Signs Vital signs: Vital Signs Temp 97.3 F L 12/11/24 07:20 Pulse 57 L 12/11/24 07:20 Resp 13 12/11/24 07:20 BP 177/78 12/11/24 07:20 Pulse Ox 100 12/11/24 07:20 FiO2 Intake & Output 12/10/24 12/11/24 12/11/24 18:59 06:59 18:59 Other: Voiding Method Incontinent Incontinent Incontinent # Voids 1 2 # Bowel Movements 1 - Exam Patient is lethargic No acute distress Abdomen is soft nontender Examination lower extremity shows no significant edema - Labs CBC & Chem 7: 12/10/24 05:52 12/10/24 05:52 Labs: Abnormal Lab Results - Last 24 Hours (Table) 12/10/24 12/10/24 Range/Units 10:55 10:55 Vitamin B12 1451.0 H (200.0-944.0) pg/mL Folate 3.10 L (4.40-31.00) ng/mL Assessment and Plan Assessment: 1. End-stage renal disease on hemodialysis on Monday schedule 2. Facial droop, currently improved. Most likely TIA. CT of the brain was neg ative 3. CKD mineral bone disorder 5. Mental status changes being followed by neurology 4. Chronic hypokalemia maintained on potassium supplementation Plan: Hemodialysis today with UF half to 1 L Continue with potassium supplementation
--- NOTE | 2024-12-11 12:51 | P.PN ---
Subjective Patient is seen for follow-up for end-stage renal disease. Status post hemodialysis yesterday with UF of 0.5 L No complaints today. present at bedside. Objective - Vital Signs Vital signs: Vital Signs Temp 97.3 F L 12/11/24 07:20 Pulse 57 L 12/11/24 07:20 Resp 13 12/11/24 07:20 BP 177/78 12/11/24 07:20 Pulse Ox 100 12/11/24 07:20 FiO2 Intake & Output 12/10/24 12/11/24 12/11/24 18:59 06:59 18:59 Other: Voiding Method Incontinent Incontinent Incontinent # Voids 1 2 # Bowel Movements 1 - Exam Patient is awake and comfortable No acute distress Examination of the heart S1 and S2 Examination of the lungs bilateral breath sounds are heard Abdomen is soft nontender Examination lower extremity shows no significant edema - Labs CBC & Chem 7: 12/10/24 05:52 12/10/24 05:52 Labs: Abnormal Lab Results - Last 24 Hours (Table) 12/10/24 12/10/24 Range/Units 10:55 10:55 Vitamin B12 1451.0 H (200.0-944.0) pg/mL Folate 3.10 L (4.40-31.00) ng/mL Assessment and Plan Assessment: 1. End-stage renal disease on hemodialysis on Monday schedule 2. Facial droop, currently improved. Most likely TIA. CT of the brain was negative 3. CKD mineral bone disorder 5. Mental status changes being followed by neurology 4. Chronic hypokalemia maintained on potassium supplementation Plan: Hemodialysis in a.m. Continue with potassium supplementation
[2024-12-11 15:34] VITALS: BP 154/79; PULSE 62; RESP 16; TEMP 96.8
--- NOTE | 2024-12-11 15:49 | P.DS ---
Providers Date of admission: 11/30/24 14:37 Expected date of discharge: 12/11/24 Attending physician: Roberth Colindres MD Consults: 11/30/24 14:37 Consult Physician Routine Consulting Provider: Haley Lambert Consult Reason/Comments: TIA Do you want consulting provider notified?: Yes Consult Physician Routine Consulting Provider: Abbey Wheeler Consult Reason/Comments: Fluid overload, ESRD Do you want consulting provider notified?: Yes Primary care physician: Bienvenido Hogue Hospital Course: Final diagnosis Very mild left facial droop concerning for stroke versus TIA, likely TIA per neurology, continued transient episodes of blank staring and unresponsiveness, underwent repeat EEG today 12/09/2024 showing abnormal with no epileptiform discharges, likely secondary to toxic/metabolic encephalopathy End-stage renal disease on hemodialysis Altered mentation, multifactorial, metabolic encephalopathy possibly secondary to end-stage renal disease as well as acute urinary tract infection, possibly present on admission Diarrhea, negative, likely secondary to antibiotic use C.Dif Urinary tract infection with sepsis, present on admission Pulmonary fibrosis Lymphedema history Borderline hypotension History of polymyalgia rheumatica Generalized weakness with gait dysfunction Severe protein calorie malnutrition with a BMI of 21.9 GI prophylaxis DVT prophylaxis Full code Discharge disposition Patient is being discharged in a stable condition with guarded prognosis to [facility]. Patient will follow-up with Dr. Hogue in the outpatient setting upon discharge. Patient is to continue with continue dialysis on Monday/Monday/Monday with outpatient follow-up with neurology as well as nephrology as scheduled. Patient to continue a short course of oral Ceftin tw ice daily for the next 3 days to complete the course. Total time taken is greater than 35 minutes. Hospital course This is a 79-year-old female who was recently admitted with left facial droop and visual along with verbal delay with concerns of TIA. Neurology evaluating underwent thorough neurological evaluation including MRI, EEG which was negative for CVA. EEG was abnormal showing some delay and slowed activity although no epileptiform discharges noted. Patient is started on Keppra and recommend to continue with twice daily and outpatient follow-up with neurology. Patient also having waxing and waning of mentation with concerns of urinary tract infection and was started on ceftriaxone showing some clinical improvement. Patient will continue oral Ceftin 500 mg twice daily to complete the course for the next 3 days. Patient continues to have waxing and waning of mentation appears to be dementia clinically. Again patient will need outpatient follow-up with neurology. Patient has been cleared by consultations and initially was going home although patient is significantly weak and unable to care for her as she is almost maximum assist, reevaluated by physical therapy recommending rehab and patient and family are agreeable. Patient has been accepted at [facility] and will be discharged today. Patient is end-stage renal disease maintained on Monday/Monday/Monday dialysis and will continue. Currently no reports of chest pain, shortness of breath, or palpitations. Patient is afebrile. No reports of nausea or vomiting and patient is tolerating diet. Recommend aspiration precautions and head of the bed elevated 35 to 45 degrees at all times. Patient will be going to [facility] today. High risk for readmissions given significant comorbidities. CODE STATUS needs to be addressed as patient remains full code at this time. Physical exam: Gen: This is a 79-year-old female who is awake, alert and oriented x 1-2, waxing and waning with continued confusion at times, delayed, elderly, well-developed, cachectic, significant muscle wasting noted, chronically ill-appearing HEENT: Head is atraumatic, normocephalic. Pupils equal, round. Sclerae is anict judy. NECK: Supple. No JVD. No lymphadenopathy. No thyromegaly. LUNGS: Diminished breath sounds bilaterally otherwise clear to auscultation. No wheezes or rhonchi. No intercostal retractions. HEART: S1, S2 are muffled ABDOMEN: Soft. Thin. Bowel sounds are present. No masses. No tenderness. EXTREMITIES: No pedal edema. No calf tenderness. NEUROLOGICAL: Patient is awake, alert and oriented x 1-2. Baseline. Diffusely weak Please refer to medication reconciliation sheet for a list of medications. The impression and plan of care has been dictated by Nurse Ludy Pra ctitioner as directed. Dr. Favian MD I have performed a history and examination and MDM of this patient, discussed the same with the dictator, and agree with the dictator's assessment and plan as written ,documented as a scribe. Based on total visit time, I have performed more than 50% of the visit. Patient Condition at Discharge: Fair Plan - Discharge Summary Discharge Rx Participant: No New Discharge Prescriptions: New Aspirin 81 mg PO DAILY tab Heparin Sodium,Porcine (1 ml) [Heparin Sodium] 5,000 unit SQ Q12HR each Gabapentin [Neurontin] 100 mg PO BID cap Midodrine [ProAmatine] 10 mg PO AC-TID tab Continue Montelukast [Singulair] 10 mg PO HS Ergocalciferol [Vitamin D2 (1250 Mcg = 44190 Iu)] 1,250 mcg PO SUTUTHSA Bumetanide [BUMEX] 1 mg PO DAILY Sodium Bicarbonate Tab 1,300 mg PO BID@0800,1200 Levothyroxine Sodium [Synthroid] 150 mcg PO DAILY Baclofen 5 mg PO BID Benzonatate [Tessalon Perles] 100 mg PO TID PRN PRN Reason: Cough Magnesium Chloride W/ D 1 tab PO DAILY Potassium Chloride ER [K-Dur 20] 20 meq PO DAILY Calcium Acetate [PhosLo] 2,001 mg PO TID-W/MEALS Albuterol Inhaler [Ventolin Hfa Inhaler] 2 puff INHALATION RT-Q6H PRN PRN Reason: Shortness Of Breath Acetaminophen Tab [Tylenol] 650 mg PO Q6HR PRN tab PRN Reason: Mild Pain Or Fever > 100.5 Loratadine 10 mg PO DAILY PRN #0 PRN Reason: Allergy Symptoms FLUoxetine HCL [PROzac] 40 mg PO DAILY Discontinued Omeprazole 40 mg PO AC-BID Mirabegron [Myrbetriq] 25 mg PO DAILY Gabapentin [Neurontin] 300 mg PO BID Discharge Medication List Montelukast [Singulair] 10 mg PO HS 08/23/18 [History] Albuterol Inhaler [Ventolin Hfa Inhaler] 2 puff INHALATION RT-Q6H PRN 02/07/23 [History] Bumetanide [BUMEX] 1 mg PO DAILY 10/17/23 [History] Ergocalciferol [Vitamin D2 (1250 Mcg = 44119 Iu)] 1,250 mcg PO SUTUTHSA 10/17/23 [History] Sodium Bicarbonate Tab 1,300 mg PO BID@0800,1200 04/15/24 [History] Levothyroxine Sodium [Synthroid] 150 mcg PO DAILY 04/28/24 [History] Acetaminophen Tab [Tylenol] 650 mg PO Q6HR PRN tab 04/30/24 [Rx] Baclofen 5 mg PO BID 08/16/24 [History] Benzonatate [Tessalon Perles] 100 mg PO TID PRN 08/16/24 [History] Magnesium Chloride W/ D 1 tab PO DAILY 08/16/24 [History] Loratadine 10 mg PO DAILY PRN #0 08/26/24 [Rx] Calcium Acetate [PhosLo] 2,001 mg PO TID-W/MEALS 11/30/24 [History] FLUoxetine HCL [PROzac] 40 mg PO DAILY 11/30/24 [History] Potassium Chloride ER [K-Dur 20] 20 meq PO DAILY 11/30/24 [History] Aspirin 81 mg PO DAILY tab 12/11/24 [Rx] Gabapentin [Neurontin] 100 mg PO BID cap 12/11/24 [Rx] Heparin Sodium,Porcine (1 ml) [Heparin Sodium] 5,000 unit SQ Q12HR each 12/11/24 [Rx] Midodrine [ProAmatine] 10 mg PO AC-TID tab 12/11/24 [Rx] Follow up Appointment(s)/Referral(s): Bienvenido Hogue MD [Primary Care Provider] - 1-2 days [facility] [NON-STAFF] - As Needed (INITIAL APPOINTMENT WILL BE WEEK OF December)
--- NOTE | 2024-12-12 10:56 | P.PN ---
Subjective Progress Note Date: 12/11/24 12/11/2024: Patient was seen for follow-up. Patient's was also present by the bedside. Patient apparently is being discharged to rehab facility. Patient's is not happy for discharge, as he states that she would not talk. Later he mentions that whenever patient gets hemodialysis, she does act like that. Then he also mentions that whenever patient has UTI, it takes time for her to recover from that and she is in and out, which she is behaving like it. Apparently at this time it will take time for her to recover from the UTI. All workup has been negative. 12/10/2024: Patient was seen for follow-up. Nurse reported early this morning that she is not responding. She will track with her eyes when you say her name but she has not spoken and not following commands. I came to see patient, and apparently now she is fully communicating, talking making jokes. Patient's relative was present, who mentions that she gets these episodes whenever she has UTI. 12/09/2024: Patient was initially seen by Dr. Adalberto Gomes, and then followed up by Dr. Flower over the weekend. I am seeing this patient for the first time today. Patient is a 79-year-old female with altered mental status that is recurrent and at 1 point felt possibly disequilibrium from dialysis. Patient had an episode of left facial droop. EEG showed triphasic waves. CT head was negative. Patient was doing well, but on Monday, patient became severely confused. Dr. Gomes placed her on Kera and ordered repeat EEG. Patient was seen by Dr. Flower over the weekend, noticed mild improvement in mental status. Patient does have a UTI. Objective - Vital Signs Vital signs: Vital Signs Temp 96.8 F L 12/11/24 15:06 Pulse 62 12/11/24 15:06 Resp 16 12/11/24 15:06 BP 154/79 12/11/24 15:06 Pulse Ox 99 12/11/24 15:06 FiO2 Intake & Output 12/10/24 12/11/24 12/11/24 18:59 06:59 18:59 Intake Total 400 Output Total 1550 Balance -1150 Intake: Hemodialysis 400 Output: Hemodialysis 975 Hemodialysis Net Amount 575 Other: Voiding Method Incontinent Incontinent Incontinent # Voids 1 2 # Bowel Movements 1 1 - Exam Patient is laying comfortably in the bed. In no acute distress. Patient appears somewhat cachectic. She is making eye contact. She is smiling. Patient denies any headache. Patient appears somewhat disoriented today, does not know the month or the year, has extremely prolonged latency time to answer any question. Speech and language functions are normal. Patient is following directions. She is somewhat achy on testing. Patient has some bruises. - Labs CBC & Chem 7: 12/10/24 05:52 12/10/24 05:52 Assessment and Plan Assessment: * Altered mental status. Toxic metabolic encephalopathy, secondary to severe UTI. * Acute UTI * Possible TIA manifesting with facial droop, slurred speech and drooling. Her symptoms lasted for half a day and then resolved overnight. At present all symptoms have resolved. Current NIH stroke scale is 0. * End-stage renal disease on hemodialysis * osteoarthritis Plan: * Patient's fluctuating mental status is likely due to delirium. Patient's mentions that she does get temporarily worse after hemodialysis likely because of the stress. She had hemodialysis performed today. Patient's also mentions that whenever she has UTI, she takes long time to recover. Apparently patient is still being treated for UTI, and will be discharged on Ceftin 500 mg twice daily for 3 days. Hopefully her mentation will improve over the next few days while at rehab facility. * Repeat EEG on 12/09/2024 was abnormal due to background slowing of moderate to severe degree. This is suggestive of generalized cerebral dysfunction as can be seen with toxic metabolic encephalopathy related to diffuse structural brain abnormality. Clinical correlation is recommended. No epileptiform activity was seen. * Patient had an episode of altered mental status. Dr. Gomes started patient on Keppra 500 mg twice daily. She is tolerating it well. Patient's mentation seems to be back to baseline. * Repeat CT head 12/07/2024: No acute intracranial process. Nonspecific white matter changes, likely secondary to chronic small vessel ischemic disease. * Initial EEG 12/05/2024 was abnormal. The background slowing is suggestive of mild encephalopathy. triphasic morphology likely due to toxic-metabolic derangement. No seizure or discharge. * 2-D echo: Normal LV function. negative bubble study. * Carotid Doppler: No hemodynamically significant stenosis * Fasting a.m. lipid panel: Triglycerides 106, cholesterol is 132, LDL is 41 and HDL is 69. * Hemoglobin A1c: 5.3 * Recommend normotensive blood pressure * Start aspirin 81 mg daily. Patient has received a loading dose of aspirin 325 mg in the ER. Patient was not on any antiplatelet medication at home. * Neuro checks every 4 hours. * Telemetry monitoring rule out any arrhythmia * PT, OT, speech therapy * Nephrology is on board. * DVT prophylaxis: Heparin 5000 units subcu every 12 hours * Upon discharge, recommend the patient to follow-up with outpatient neurologist within 2-3 weeks. * Neurologically clear for discharge.
--- NOTE | 2024-12-16 19:40 | CDI ---
Documentation Clarification Form Date: 12/16/2024 07:15:59 PM From: Sara Pelayo Phone: Admit Date: 11/30/2024 02:37:00 PM Patient Name: Margie Dallas Visit Number: [id number] Discharge Date: 12/11/2024 06:45:00 PM ATTENTION: The Clinical Documentation Specialists (CDI) and [facility] Coding Staff appreciate your assistance in clarifying documentation. Please respond to the clarification below the line at the bottom and electronically sign. The CDI & [facility] Coding staff will review the response and follow-up if needed. Please note: Queries are made part of the Legal Health Record. If you have any questions, please contact the author of this message via ITS. Doctor/Provider: Roberth E Sheet Sepsis is documented per Progress Notes 12/08-12/10 and DCS which may lack sufficient clinical evidence/support in the medical record. Additional clarification is requested. History/Risk Factors: 79yo F, LTfacial droop d/t TIA, metabolic encephalopathy, ESRD, UTI, diarrhea d/t ABx, pulmonary fibrosis, lymphedema, hypotension, polymyalgia rheumatic, gaitdysfx, severe PCM Clinical Indicators: WBC: 11/30 1287 Urine culture: Polymicrobic specimen, no predominant morphotype. Specimen unsuitable. Growth includes: (3 Types) Vitals signs: 11/30/2505/28/25 12:59 14:25 T 97.7 HI 75 63 RR 16 18 BP101/62 115/67 O2 Sat 95 91 Treatment: Remains on IV antibiotics. Please re-submit urine cultures. After work up and study, please clarify which diagnosis is most appropriate? [ ] Sepsis due to UTI is ruled out. The patient had a localized infection without systemic response or organ dysfunction. [ ] Sepsis due to UTI was suspected, but subsequent clinical findings did not support the diagnosis, and it has been ruled out. [ ] Sepsis due to UTI is POA and clinically supported as evidenced by these additional clinical indicators: [ ] Sepsis due to UTI developed during stay, not POA and clinically supported as evidenced by these additional clinical indicators: [ ] Other, please specify [ x ] Unable to determine SIRS Criteria: 2 or more of the following may indicate SIRS Temperature < 96.8F (36C) or > 101.0F (38.3C) Heart Rate > 90 bpm Respiratory Rate > 20 breaths/min or PaCO2 < 32 mmHg White Blood Cell Count > 12,000 or < 4,000 cells/mm3 or > 10% bands (Template Last Reviewed: June 2023) MTDD
--- NOTE | 2024-12-23 10:40 | CDI ---
Documentation Clarification Form Date: 12/23/2024 10:22:47 AM From: Sara Pelayo Phone: Admit Date: 11/30/2024 02:37:00 PM Patient Name: Margie Dallas Visit Number: [id number] Discharge Date: 12/11/2024 06:45:00 PM ATTENTION: The Clinical Documentation Specialists (CDI) and [facility] Coding Staff appreciate your assistance in clarifying documentation. Please respond to the clarification below the line at the bottom and electronically sign. The CDI & [facility] Coding staff will review the response and follow-up if needed. Please note: Queries are made part of the Legal Health Record. If you have any questions, please contact the author of this message via ITS. Doctor/Provider: Jimenez Curielis documented per Progress Notes 12/08-12/10 and DCS. For each diagnosis, documentation must be clear to determine if the condition was present at the time of the patients inpatient admission or developed during the hospital stay. Additional clarification is requested. History/Risk Factors: 79yo F, LTfacial droopd/tTIA,metabolic encephalopathy, ESRD,UTI,diarrhead/t ABx,pulmonary fibrosis,lymphedema,hypotension, polymyalgiarheumatic, gaitdysfx,severe PCM Clinical Indicators: WBC: 11/30 1287 Urine culture: Polymicrobic specimen, no predominant morphotype. Specimen unsuitable. Growth includes: (3 Types) Vital signs: 11/30/2505/28/25 12:59 14:25 T 97.7 RI 75 63 RR 16 18 BP101/62 115/67 O2 Sat 95 91 Treatment: Remains onIV antibiotics. Please re-submit urine cultures. After work up andstudy, please clarify which diagnosis is most appropriate? [ ] Sepsisdue toUTIisruled out. The patient had alocalizedinfection withoutsystemic response or organdysfunction. [ ] Sepsisdue toUTIwas suspected, but subsequent clinical findings did not support the diagnosis, and it has beenruled out. [ x ] Sepsisdue toUTIis POA and clinically supported as evidenced by these additional clinical indicators: positive urine cultures____ [ ] Sepsisdue toUTIdeveloped during stay, not POA and clinically supported as evidenced by these additional clinical indicators: [ ] Other, please specify [ ] Unable to determine SIRSCriteria: 2 or more of the following may indicateSIRS Temperature < 96.8F (36C) or > 101.0F (38.3C) Heart Rate > 90 bpm Respiratory Rate > 20 breaths/min or PaCO2 < 32 mmHg White Blood Cell Count > 12,000 or < 4,000 cells/mm3 or > 10% bands (Template Last Reviewed: June 2023) MTDD
== END 2024-12-11 18:45 | DRG 871 ==
LOC: EC 12:46 → 6NMEDSUR 14:37 → OBSVTOIN 14:37 → 6NMEDSUR 15:35
PROVIDERS: ADMIT Internal Medicine; ATTEND Internal Medicine
PROC: 5A1D70Z Performance of Urinary Filtration, Intermittent, Less than 6 Hours Per Day (ICD-10-PCS; principal; 2024-12-02)
DX: A41.9 Sepsis, unspecified organism (principal); E43 Unspecified severe protein-calorie malnutrition; G93.41 Metabolic encephalopathy; N18.6 End stage renal disease; E87.20 Acidosis, unspecified; R64 Cachexia; J84.10 Pulmonary fibrosis, unspecified; Z99.2 Dependence on renal dialysis; G45.9 Transient cerebral ischemic attack, unspecified; M35.3 Polymyalgia rheumatica; N39.0 Urinary tract infection, site not specified; K52.1 Toxic gastroenteritis and colitis; E87.8 Other disorders of electrolyte and fluid balance, not elsewhere classified; R47.81 Slurred speech; I89.0 Lymphedema, not elsewhere classified; R26.9 Unspecified abnormalities of gait and mobility; T36.95XA Adverse effect of unspecified systemic antibiotic, initial encounter; E87.6 Hypokalemia; R29.810 Facial weakness; R47.89 Other speech disturbances; I95.1 Orthostatic hypotension; M19.90 Unspecified osteoarthritis, unspecified site; Z68.21 Body mass index [BMI] 21.0-21.9, adult; Z79.51 Long term (current) use of inhaled steroids; Z79.52 Long term (current) use of systemic steroids; Z79.890 Hormone replacement therapy; Z98.84 Bariatric surgery status; Z86.19 Personal history of other infectious and parasitic diseases; Z85.828 Personal history of other malignant neoplasm of skin; Z79.899 Other long term (current) drug therapy; Z88.1 Allergy status to other antibiotic agents; Z88.2 Allergy status to sulfonamides
CPT/HCPCS: 36415; 70450; 71046; 80048; 80053; 80061; 81001; 82140; 82550; 82607; 82746; 83036; 83735; 84132; 84443; 84484; 85025; 85610; 85730; 86706; 87086; 87324; 87340; 90935; 93005; 93306; 93880; 94760; 95816; 99285

== ENCOUNTER 2024-12-13 09:16 | Inpatient (IN) | payer MEDICARE ==
--- NOTE | 2024-12-13 10:04 | ED ---
General Adult HPI - General Chief complaint: Altered Mental Status Stated complaint: AMS Time Seen by Provider: 12/13/24 09:25 Source: patient, EMS, RN notes reviewed, old records reviewed Mode of arrival: EMS Limitations: no limitations - History of Present Illness Initial comments: This is an 79-year-old female who presents to the emergency department from the correction because she was not responding. According to them the last time she was seen normal was on Monday after she had a long hospital stay. Patient opens her eyes follows simple commands to me and nodded her head yes and no to some questions. Patient did not give me any idea as to what was bothering her or anything that hurt. states she gets this way when she has a urinary tract infection - Related Data Home Medications Medication Instructions Recorded Confirmed Montelukast [Singulair] 10 mg PO HS 08/23/18 12/13/24 Albuterol Inhaler [Ventolin Hfa 2 puff INHALATION RT-Q6H PRN 02/07/23 12/13/24 Inhaler] Bumetanide [BUMEX] 1 mg PO DAILY 10/17/23 12/13/24 Ergocalciferol [Vitamin D2 (1250 1,250 mcg PO TUTHSA 10/17/23 12/13/24 Mcg = [id number] Iu)] Sodium Bicarbonate Tab 1,300 mg PO BID@0800,1200 04/15/24 12/13/24 Levothyroxine Sodium [Synthroid] 150 mcg PO DAILY@0600 04/28/24 12/13/24 Baclofen 5 mg PO BID@0800,1700 08/16/24 12/13/24 Benzonatate [Tessalon Perles] 100 mg PO TID PRN 08/16/24 12/13/24 Calcium Acetate [PhosLo] 2,001 mg PO TID-W/MEALS 11/30/24 12/13/24 FLUoxetine HCL [PROzac] 40 mg PO DAILY 11/30/24 12/13/24 Potassium Chloride ER [K-Dur 20] 20 meq PO DAILY 11/30/24 12/13/24 Caldesene Powder 1 applic TOPICAL Q12H 12/13/24 12/13/24 Calprotect Cream 1 applic TOPICAL Q12H 12/13/24 12/13/24 Gabapentin [Neurontin] 100 mg PO BID@0800,1700 12/13/24 12/13/24 Magic Cup 1 dose PO BID@1200,1700 12/13/24 12/13/24 Magnesium Chloride - Calium 1 tab PO DAILY 12/13/24 12/13/24 64-106mg Magnesium Hydroxide [Milk of 7,200 mg PO DAILY PRN 12/13/24 12/13/24 Magnesia Concentrate] Midodrine [ProAmatine] 5 mg PO TID@0800,1200,1700 12/13/24 12/13/24 Na Phos,M-B/Na Phos,Di-Ba [Fleet 133 ml RECTAL DAILY PRN 12/13/24 12/13/24 Adult] bisacodyL [Dulcolax] 10 mg RECTAL DAILY PRN 12/13/24 12/13/24 Previous Rx's Medication Instructions Recorded Acetaminophen Tab [Tylenol] 650 mg PO Q6HR PRN tab 04/30/24 Loratadine 10 mg PO DAILY PRN #0 08/26/24 Aspirin 81 mg PO DAILY tab 12/11/24 Heparin Sodium,Porcine (1 ml) 5,000 unit SQ Q12HR each 12/11/24 [Heparin Sodium] cefuroxime axetiL [Ceftin] 500 mg PO BID 3 Days #6 tab 12/11/24 levETIRAcetam [Keppra] 500 mg PO Q12HR #60 tab 12/11/24 Allergies Allergy/AdvReac Type Severity Reaction Status Date / Time adhesive tape Allergy Rash/Hives Verified 12/13/24 11:32 Sulfa (Sulfonamide Allergy Itching Verified 12/13/24 11:32 Antibiotics) codeine AdvReac Nausea Verified 12/13/24 11:32 tetracycline AdvReac Nausea & Verified 12/13/24 11:32 Vomiting Review of Systems ROS Statement: Those systems with pertinent positive or pertinent negative responses have been documented in the HPI. ROS Other: All systems not noted in ROS Statement are negative. Past Medical History Past Medical History: Asthma, Cancer, COPD, Dialysis, Osteoarthritis (OA), Renal Disease, Thyroid Disorder Additional Past Medical History / Comment(s): ESRD- hemodialysis [facility] 3 1/2 hours, dialysis cath rt chest, kidney stones and UTI, hx lymphedema, hx pulmonary fibrosis, hx graves, hx rt foot torn ligaments, hx osteoporosis, hypotension; vitamin D deficiency, hypocalcemia, SKIN CANCER REMOVED FROM BRIDGE OF NOSE., PMR - polymyalgia rhematalia; currently bruised from neck to right breast History of Any Multi-Drug Resistant Organisms: CRE Date of last positivie culture/infection: 10/16/18 MDRO-CRE PER [facility] NOT [facility] MDRO Source:: Urine Past Surgical History: Bariatric Surgery, Orthopedic Surgery Additional Past Surgical History / Comment(s): hx bariatric surgery-[facility]ye [facility] Y,lung biopsy,radioactive iodine-tx thyroid,rectal and bladder suspensions,vaginal surgery as a child,partha carpel tunnel,rt knee meniscus repair,D&C x3, left arm fistula 02/08/19(not working), left broken wrist, broken right wrist Past Anesthesia/Blood Transfusion Reactions: Previous Problems w/ Anesthesia Additional Past Anesthesia/Blood Transfusion Reaction / Comment(s): decrease bp with anesthesia, no problems with prior blood transfusion Past Psychological History: No Psychological Hx Reported Smoking Status: Never smoker Past Alcohol Use History: None Reported Past Drug Use History: None Reported - Past Family History Father Family Medical History: Pulmonary Embolus Additional Family Medical History / Comment(s): . Mother Family Medical History: Cancer Additional Family Medical History / Comment(s): colon ca, bone ca Sister(s) Family Medical History: Cancer Additional Family Medical History / Comment(s): kidney ca Daughter(s) Additional Family Medical History / Comment(s): lymphedema in legs Brother(s) Family Medical History: Cancer Additional Family Medical History / Comment(s): skin cancer General Exam - General Exam Comments Initial Comments: GENERAL: Patient is well-developed and well-nourished. Patient is nontoxic and well- hydrated and is in no acute distress. Patient does seem very lethargic and slow to respond ENT: Neck is soft and supple. No significant lymphadenopathy is noted. Oropharynx is clear. Dry mucous membranes. Neck has full range of motion without eliciting any pain. EYES: The sclera were anicteric and conjunctiva were pink and moist. Extraocular movements were intact and pupils were equal round and reactive to light. Eyelids were unremarkable. PULMONARY: Unlabored respirations. Good breath sounds bilaterally. No audible rales rhonchi or wheezing was noted. CARDIOVASCULAR: There is a regular rate and rhythm without any murmurs gallops or rubs. ABDOMEN: Soft and nontender with normal bowel sounds. SKIN: Skin is clear with no lesions or rashes and otherwise unremarkable. NEUROLOGIC: Patient is alert and oriented x3. Cranial nerves II through XII are grossly intact. Motor and sensory are also intact. Normal speech, volume and content. Symmetrical smile. MUSCULOSKELETAL: Normal extremities with adequate strength and full range of motion. LYMPHATICS: No significant lymphadenopathy is noted PSYCHIATRIC: Normal psychiatric evaluation. Limitations: no limitations Course Vital Signs 12/13/24 09:22 Temperature 98.0 F Pulse Rate 64 Respiratory 18 Rate Blood Pressure 109/73 O2 Sat by Pulse 98 Oximetry Medical Decision Making - Medical Decision Making EKG is interpreted by myself and EKG shows a sinus rhythm at 63 bpm LA interval is 152 QRS is 85 QT interval is 461 QTc is 468 Was pt. sent in by a medical professional or institution ([facility], [employer], urgent care, hospital, or correction...) When possible be specific @ -No Did you speak to anyone other than the patient for history (EMS, parent, family, police, friend...)? What history was obtained from this source @ -No Did you review nursing and triage notes (agree or disagree)? Why? @ -I reviewed and agree with nursing and triage notes Were old charts reviewed (outside hosp., previous admission, EMS record, old EKG , old radiological studies, urgent care reports/EKG's, correction records)? Report findings @ -No old charts were reviewed Differential Diagnosis? @ -Differential Weakness: Hypoglycemia, shock, sepsis, hyponatremia, anemia, infection, MA, ETOH, adverse medicine reaction, overdose, stroke, this is not meant to be an all-inclusive list. EKG interpreted by me (3pts min.). @ -As above X-rays interpreted by me (1pt min.). @ -X-ray shows a possible opacification posterior to the heart CT interpreted by me (1pt min.). @ -None done U/S interpreted by me (1pt. min.). @ -None done What testing was considered but not performed or refused? (CT, X-rays, U/S, labs)? Why? @ -None What meds were considered but not given or refused? Why? @ -None Did you discuss the management of the patient with other professionals (professionals i.e. , PA, [employer], lab, RT, psych nurse, social group worker, all purpose clerk, teacher, forest fire officer, manager rn case)? Give summary @ -I spoke with Dr. Delarosa he agreed to admit the patient Was smoking cessation discussed for >3mins.? @ -No Was critical care preformed (if so, how long)? @ -No Were there social determinants of health that impacted care today? How? (Homelessness, low income, unemployed, alcoholism, drug addiction, transportation, low edu. Level, literacy, decrease access to med. care, custodial, rehab)? @ -No Was there de-escalation of care discussed even if they declined (Discuss DNR or withdrawal of care, Hospice)? DNR status @ -No What co-morbidities impacted this encounter? (DM, HTN, Smoking, COPD, CAD, Cancer, CVA, ARF, Chemo, Hep., AIDS, mental health diagnosis, sleep apnea, morbid obesity)? @ -None Was patient admitted / discharged? Hospital course, mention meds given and route, prescriptions, significant lab abnormalities, going to OR and other pertinent info. @ -Patient appeared to have a urinary tract infection a possible pneumonia patient will be treated with 2 g Rocephin in the emergency department and some fluids. Patient also had an elevated troponin I will repeat the troponins Undiagnosed new problem with uncertain prognosis? @ -No Drug Therapy requiring intensive monitoring for toxicity (Heparin, Nitro, Insulin, Cardizem)? @ -No Were any procedures done? @ -No Diagnosis/symptom? @ -Urinary tract infection Acute, or Chronic, or Acute on Chronic? @ -Acute Uncomplicated (without systemic symptoms) or Complicated (systemic symptoms)? @ -Complicated Side effects of treatment? @ -No Exacerbation, Progression, or Severe Exacerbation? @ -No Poses a threat to life or bodily function? How? (Chest pain, USA, MA, pneumonia, PE, COPD, DKA, ARF, appy, cholecystitis, CVA, Diverticulitis, Homicidal, Suicidal, threat to staff... and all critical care pts) @ -Yes this can lead to sepsis and endorgan dysfunction Diagnosis/symptom? @ -Pneumonia Acute, or Chronic, or Acute on Chronic? @ -Acute Uncomplicated (without systemic symptoms) or Complicated (systemic symptoms)? @ -Complicated Side effects of treatment? @ -None Exacerbation, Progression, or Severe Exacerbation] @ -No Poses a threat to life or bodily function? @ -No Diagnosis/symptom? @ -Lethargy Acute, or Chronic, or Acute on Chronic? @ -Acute Uncomplicated (without systemic symptoms) or Complicated (systemic symptoms)? @ -Complicated Side effects of treatment? @ -None Exacerbation, Progression, or Severe Exacerbation] @ -No Poses a threat to life or bodily function? @ -No - Lab Data Result diagrams: 12/13/24 10:36 12/13/24 10:36 Lab Results 12/13/24 12/13/24 12/13/24 Range/Units 09:54 10:36 10:36 WBC 8.95 (4.50-10.00) 10*3/uL RBC 4.72 (4.10-5.20) 10*6/uL Hgb 15.3 H (12.0-15.0) g/dL Hct 47.8 H (37.2-46.3) % MCV 101.3 H (80.0-97.0) fL MCH 32.4 H (27.0-32.0) pg MCHC 32.0 (32.0-37.0) g/dL Plt Count 179 (140-440) 10*3/uL MPV 9.9 (9.5-12.2) fL Immature Gran % (Auto) 0.4 % Neutrophils % 75.2 % Lymphocytes % 13.6 % Monocytes % 8.2 % Eosinophils % 1.6 % Basophils % 1.0 % Immature Gran # 0.04 (0.00-0.04) 10*3/uL Neutrophils # 6.73 (1.80-7.70) 10*3/uL Lymphocytes # 1.22 (0.90-5.00) 10*3/uL Monocytes # 0.73 (0.20-1.00) 10*3/uL Eosinophils # 0.14 (0.04-0.35) 10*3/uL Basophils # 0.09 (0.00-0.10) 10*3/uL Sodium 136 L (137-145) mmol/L Potassium 4.2 (3.5-5.1) mmol/L Chloride 97 L (98-107) mmol/L Carbon Dioxide 21 L (22-30) mmol/L Anion Gap 18 mmol/L BUN 63 H (7-17) mg/dL Creatinine 3.80 H (0.52-1.04) mg/dL Est GFR (CKD-EPI)AfAm 12 (>60 ml/min/1.73 sqM) Est GFR (CKD-EPI)NonAf 11 (>60 ml/min/1.73 sqM) Glucose 104 H (74-99) mg/dL Plasma Lactic Acid Klever (0.7-2.0) mmol/L Calcium 9.7 (8.4-10.2) mg/dL Magnesium 2.2 (1.6-2.3) mg/dL Total Bilirubin 0.7 (0.2-1.3) mg/dL AST 65 H (14-36) U/L ALT 45 H (4-34) U/L Alkaline Phosphatase 180 H (38-126) U/L Troponin I (0.000-0.034) ng/mL Total Protein 7.1 (6.3-8.2) g/dL Albumin 4.1 (3.5-5.0) g/dL Urine Color Light Red Urine Appearance Turbid H (Clear) Urine pH 5.5 (5.0-8.0) Ur Specific [place] 1.018 (1.001-1.035) Urine Protein 1+ H (Negative) Urine Glucose (UA) Negative (Negative) Urine Ketones 1+ H (Negative) Urine Blood Large H (Negative) Urine Nitrite Negative (Negative) Urine Bilirubin Negative (Negative) Urine Urobilinogen <2.0 (<2.0) mg/dL Ur Leukocyte Esterase Large H (Negative) Urine RBC 169 H (0-5) /hpf Urine WBC >182 H (0-5) /hpf Urine WBC Clumps Many H (None) /hpf Ur Squamous Epith Cells 6 H (0-4) /hpf Urine Bacteria Many H (None) /hpf Hyaline Casts 53 H (0-2) /lpf Urine Mucus Occasional H (None) /hpf Urine Yeast (Budding) Many H (None) /hpf 12/13/24 12/13/24 Range/Units 10:36 10:36 WBC (4.50-10.00) 10*3/uL RBC (4.10-5.20) 10*6/uL Hgb (12.0-15.0) g/dL Hct (37.2-46.3) % MCV (80.0-97.0) fL MCH (27.0-32.0) pg MCHC (32.0-37.0) g/dL Plt Count (140-440) 10*3/uL MPV (9.5-12.2) fL Immature Gran % (Auto) % Neutrophils % % Lymphocytes % % Monocytes % % Eosinophils % % Basophils % % Immature Gran # (0.00-0.04) 10*3/uL Neutrophils # (1.80-7.70) 10*3/uL Lymphocytes # (0.90-5.00) 10*3/uL Monocytes # (0.20-1.00) 10*3/uL Eosinophils # (0.04-0.35) 10*3/uL Basophils # (0.00-0.10) 10*3/uL Sodium (137-145) mmol/L Potassium (3.5-5.1) mmol/L Chloride (98-107) mmol/L Carbon Dioxide (22-30) mmol/L Anion Gap mmol/L BUN (7-17) mg/dL Creatinine (0.52-1.04) mg/dL Est GFR (CKD-EPI)AfAm (>60 ml/min/1.73 sqM) Est GFR (CKD-EPI)NonAf (>60 ml/min/1.73 sqM) Glucose (74-99) mg/dL Plasma Lactic Acid Klever 1.3 (0.7-2.0) mmol/L Calcium (8.4-10.2) mg/dL Magnesium (1.6-2.3) mg/dL Total Bilirubin (0.2-1.3) mg/dL AST (14-36) U/L ALT (4-34) U/L Alkaline Phosphatase (38-126) U/L Troponin I 0.055 H* (0.000-0.034) ng/mL Total Protein (6.3-8.2) g/dL Albumin (3.5-5.0) g/dL Urine Color Urine Appearance (Clear) Urine pH (5.0-8.0) Ur Specific [place] (1.001-1.035) Urine Protein (Negative) Urine Glucose (UA) (Negative) Urine Ketones (Negative) Urine Blood (Negative) Urine Nitrite (Negative) Urine Bilirubin (Negative) Urine Urobilinogen (<2.0) mg/dL Ur Leukocyte Esterase (Negative) Urine RBC (0-5) /hpf Urine WBC (0-5) /hpf Urine WBC Clumps (None) /hpf Ur Squamous Epith Cells (0-4) /hpf Urine Bacteria (None) /hpf Hyaline Casts (0-2) /lpf Urine Mucus (None) /hpf Urine Yeast (Budding) (None) /hpf Disposition Clinical Impression: Pneumonia, Urinary tract infection, Acute renal failure, Weakness Disposition: ADMITTED IP TO THIS HOSP Referrals: Bienvenido Hogue MD [Primary Care Provider] - 1-2 days Time of Disposition: 12:24
[2024-12-13 10:11] LABS: Bacteria,Urine Many /hpf; Bilirubin,Urine Negative (Negative); Blood,Urine Large (Negative); Budding Yeast,Urine Many /hpf; Color,Urine Light Red; Glucose,Urine (UA) Negative (Negative); Hyaline Casts,Urine 53 /lpf (0-2); Ketones,Urine 1+ (Negative); Leukocyte Esterase,Urine Large (Negative); Mucus,Urine Occasional /hpf; Nitrite,Urine Negative (Negative); PH, Urine 5.5 (5.0-8.0); Protein,Urine 1+ (Negative); RBC,Urine 169 /hpf (0-5); Specific Gravity,Urine 1.018 (1.001-1.035); Squamous Epithelial Cell,Urine 6 /hpf (0-4); Urobilinogen,Urine <2.0 mg/dL (<2.0); WBC,Urine >182 /hpf (0-5)
[2024-12-13 10:52] LABS: Basophils # (A) 0.09 10*3/uL (0.00-0.10); Basophils % (A) 1.0 %; Eosinophils # (A) 0.14 10*3/uL (0.04-0.35); Eosinophils % (A) 1.6 %; HCT 47.8 % (37.2-46.3); HGB 15.3 g/dL (12.0-15.0); Lymphocytes # (A) 1.22 10*3/uL (0.90-5.00); Lymphocytes % (A) 13.6 %; MCH 32.4 pg (27.0-32.0); MCHC 32.0 g/dL (32.0-37.0); MCV 101.3 fL (80.0-97.0); Monocytes # (A) 0.73 10*3/uL (0.20-1.00); Monocytes % (A) 8.2 %; Neutrophils # (A) 6.73 10*3/uL (1.80-7.70); Neutrophils % (A) 75.2 %; Platelet Count 179 10*3/uL (140-440); RBC 4.72 10*6/uL (4.10-5.20); RDW 12.5 % (11.5-14.5); WBC 8.95 10*3/uL (4.50-10.00)
[2024-12-13] MEDS: cefTRIAXone IN SWFI 1,000 MG/10 ML SYRINGE IVP STA ×2 (11:08→11:09)
[2024-12-13] MEDS: SODIUM CHLORIDE 0.9% 1,000 ML IV ONE (11:09)
[2024-12-13 11:15] LABS: ALT 45 U/L (4-34); Albumin 4.1 g/dL (3.5-5.0); Anion Gap 18 mmol/L; Blood Urea Nitrogen 63 mg/dL (7-17); Calcium 9.7 mg/dL (8.4-10.2); Carbon Dioxide 21 mmol/L (22-30); Chloride 97 mmol/L (98-107); Glucose 104 mg/dL (74-99); Sodium 136 mmol/L (137-145); Total Protein 7.1 g/dL (6.3-8.2)
[2024-12-13] MEDS: LACTATED RINGERS 500 ML IV ONE (11:15)
[2024-12-13] MEDS: LACTATED RINGERS 1,000 ML IV ONE (11:16)
[2024-12-13 11:21] LABS: African American GFR (CKD) 12 (>60 ml/min/1.73 sqM); Non-African American GFR(CKD) 11 (>60 ml/min/1.73 sqM)
[2024-12-13 11:23] LABS: AST 65 U/L (14-36); Alkaline Phosphatase 180 U/L (38-126); Magnesium 2.2 mg/dL (1.6-2.3); Potassium 4.2 mmol/L (3.5-5.1)
--- NOTE | 2024-12-13 11:59 | XR ---
EXAMINATION TYPE: XR chest 2V DATE OF EXAM: 12/13/2024 11:29 AM COMPARISON: Chest radiographs from 11/30/2024. CLINICAL INDICATION: Female, 79 years old with history of Weakness; [facility] TECHNIQUE: XR chest 2V Frontal and lateral views of the chest. FINDINGS: Lungs/Pleura: Airspace opacities projecting over the spine. There is no evidence of pleural effusion, focal consolidation, or pneumothorax. Pulmonary vascularity: Unremarkable. Heart/mediastinum: Cardiomediastinal silhouette is unremarkable. Musculoskeletal: No acute osseous pathology. Right central venous catheter with tip terminating in the superior cavoatrial junction. No evidence f or pneumothorax. IMPRESSION: Airspace opacities projecting over the spine correlate for pneumonia. [facility], , 12/13/2024 11:57 AM
[2024-12-13] MEDS ORDERED: PNEUMONIA PROTOCOL UTILIZED 1 EACH MISC PO PRN (12:24)
[2024-12-13 13:02] LABS: INR 1.0 (<1.2); Prothrombin Time 11.1 sec (10.0-12.5)
[2024-12-13 13:32] LABS: Partial Thromboplastin Time 19.6 sec (22.0-30.0)
[2024-12-13] MEDS: AZITHROMYCIN 500 MG in SODIUM CHLORIDE 0.9% 250 ML IVPB STA (13:33)
[2024-12-13] MEDS ORDERED: ALBUTEROL NEBULIZED 2.5 MG/3 ML INHALATION PRN (15:52)
[2024-12-13] MEDS ORDERED: BENZONATATE 100 MG CAP PO PRN (15:52)
[2024-12-13] MEDS ORDERED: LORATADINE 10 MG TAB PO PRN (15:52)
[2024-12-13] MEDS ORDERED: ACETAMINOPHEN TAB 325 MG TAB PO PRN (15:52)
--- NOTE | 2024-12-13 16:04 | P.HPIM ---
History of Present Illness H&P Date: 12/13/24 Patient is an 79 year old female with medical history of pulmonary fibrosis, lymphedema, polymyalgia rheumatica, ESRD hemodialysis. Patient was discharged from the hospital yesterday to [facility]. Patient was discharged on 3 days of oral ceftin to complete course of antibiotics for urinary tract infection. Patient had full neurological work up during that admission' including MRI, EEG which was negative for CVA. EEG was abnormal showing some delay and slowed activity although no epileptiform discharges noted. Patient was started on keppra twice daily. Patient also having waxing and waning of mentation and there was concern for UTI was started on IV cefriaxone and patient continued to have waxing and waning of mentation appears to be dementia clinically. Patient was recommended to follow along with neurology outpatient. Patient was discharged to [facility] for rehabilitation. Returned from the facility with concern for altered mentation and unresponsiveness. Patient has been following simple commands and responding to yes/no questions. feels she has UTI although is still com pleting course of antibiotics for UTI. Of note her urine culture from 12/05/24 was final and negative as well as blood culture final and negative. Urinalysis on admission shows turbid urine, 1+ ketones, large blood, large leukocyte esterase, 169 RBC, >182 WBC, many bacteria, many yeast. Patient had elevated troponin 0.055, AST 65, ALT 45, alk phos 180. Bun of 63, creatinine 3.80. Nephrology will be consulted for management of hemodialysis. REVIEW OF SYSTEMS: CONSTITUTIONAL: No fever, no malaise, no fatigue. HEENT: No recent visual problems or hearing problems. Denied any sore throat. CARDIOVASCULAR: No chest pain, orthopnea, PND, no palpitations, no syncope. PULMONARY: No shortness of breath, no cough, no hemoptysis. GASTROINTESTINAL: No diarrhea, no nausea, no vomiting, no abdominal pain. NEUROLOGICAL: No headaches, no weakness, no numbness. HEMATOLOGICAL: Denies any bleeding or petechiae. GENITOURINARY: Denies any burning micturition, frequency, or urgency. MUSCULOSKELETAL/RHEUMATOLOGICAL: Denies any joint pain, swelling, or any muscle pain. ENDOCRINE: Denies any polyuria or polydipsia. The rest of the 14-point review of systems is negative. PHYSICAL EXAMINATION: GENERAL: The patient is alert and oriented x1, not in any acute distress. Well developed, well nourished. HEENT: Pupils are round and equally reacting to light. EOMI. No scleral icterus. No conjunctival pallor. Normocephalic, atraumatic. No pharyngeal erythema. No thyromegaly. CARDIOVASCULAR: S1 and S2 present. No murmurs, rubs, or gallops. PULMONARY: Chest is clear to auscultation, no wheezing or crackles. ABDOMEN: Soft, nontender, nondistended, normoactive bowel sounds. No palpable organomegaly. MUSCULOSKELETAL: No joint swelling or deformity. EXTREMITIES: No cyanosis, clubbing, or pedal edema. NEUROLOGICAL: Gross neurological examination did not reveal any focal deficits. SKIN: No rashes. Assessment Altered mentation, multifactorial, metabolic encephalopathy possibly secondary to end-stage renal disease with possible underlying dementia End-stage renal disease on hemodialysis Troponin leak likely from renal disease Transaminitis with cholecystectomy in the past Recent hospitalization for UTI treated with antibiotics although urine culture negative Diarrhea, negative C.Dif, likely secondary to antibiotic use Pulmonary fibrosis Lymphedema history Borderline hypotension History of polymyalgia rheumatica Generalized weakness with gait dysfunction Severe protein calorie malnutrition with a BMI of 21.9 GI prophylaxis DVT prophylaxis: Subcu heparin Full code Plan Consult nephrology for hemodialysis patient on MWF schedule Urine culture and blood culture pending Patient was started empirically on IV ceftriaxone Continue keppra Home medications have been reviewed and continue Hold gabapentin due to altered mentation Repeat CMP in the AM The impression and plan of care has been dictated by Gosia Singer Nurse Practitioner as directed. Dr. Favian MD I have performed a history and physical examination and medical decision making of this patient, discussed the same with the dictator, and agree with the dictators assessment and plan as written, documented as a scribe. Based on total visit time, I have performed more than 50% of this visit. Past Medical History Past Medical History: Asthma, Cancer, COPD, Dialysis, Osteoarthritis (OA), Renal Disease, Thyroid Disorder Additional Past Medical History / Comment(s): ESRD- hemodialysis MOWEFR 3 1/2 hours, dialysis cath rt chest, kidney stones and UTI, hx lymphedema, hx pulmonary fibrosis, hx graves, hx rt foot torn ligaments, hx osteoporosis, hypotension; vitamin D deficiency, hypocalcemia, SKIN CANCER REMOVED FROM BRIDGE OF NOSE., PMR - polymyalgia rhematalia; currently bruised from neck to right breast History of Any Multi-Drug Resistant Organisms: CRE Date of last positivie culture/infection: 10/16/18 MDRO-CRE PER [facility] NOT [facility] MDRO Source:: Urine Past Surgical History: Bariatric Surgery, Orthopedic Surgery Additional Past Surgical History / Comment(s): hx bariatric surgery-Kye En Y,lung biopsy,radioactive iodine-tx thyroid,rectal and bladder suspensions,vaginal surgery as a child,partha carpel tunnel,rt knee meniscus repair,D&C x3, left arm fistula 02/08/19(not working), left broken wrist, broken right wrist Past Anesthesia/Blood Transfusion Reactions: Previous Problems w/ Anesthesia Additional Past Anesthesia/Blood Transfusion Reaction / Comment(s): decrease bp with anesthesia, no problems with prior blood transfusion Past Psychological History: No Psychological Hx Reported Smoking Status: Never smoker Past Alcohol Use History: None Reported Past Drug Use History: None Reported - Past Family History Father Family Medical History: Pulmonary Embolus Additional Family Medical History / Comment(s): . Mother Family Medical History: Cancer Additional Family Medical History / Comment(s): colon ca, bone ca Sister(s) Family Medical History: Cancer Additional Family Medical History / Comment(s): kidney ca Daughter(s) Additional Family Medical History / Comment(s): lymphedema in legs Brother(s) Family Medical History: Cancer Additional Family Medical History / Comment(s): skin cancer Medications and Allergies Home Medications Medication Instructions Recorded Confirmed Type Montelukast [Singulair] 10 mg PO HS 08/23/18 12/13/24 History Albuterol Inhaler [Ventolin Hfa 2 puff INHALATION RT-Q6H PRN 02/07/23 12/13/24 History Inhaler] Bumetanide [BUMEX] 1 mg PO DAILY 10/17/23 12/13/24 History Ergocalciferol [Vitamin D2 (1250 1,250 mcg PO TUTHSA 10/17/23 12/13/24 History Mcg = 48407 Iu)] Sodium Bicarbonate Tab 1,300 mg PO BID@0800,1200 04/15/24 12/13/24 History Levothyroxine Sodium [Synthroid] 150 mcg PO DAILY@0600 04/28/24 12/13/24 History Acetaminophen Tab [Tylenol] 650 mg PO Q6HR PRN tab 04/30/24 12/13/24 Rx Baclofen 5 mg PO BID@0800,1700 08/16/24 12/13/24 History Benzonatate [Tessalon Perles] 100 mg PO TID PRN 08/16/24 12/13/24 History Loratadine 10 mg PO DAILY PRN #0 08/26/24 12/13/24 Rx Calcium Acetate [PhosLo] 2,001 mg PO TID-W/MEALS 11/30/24 12/13/24 History FLUoxetine HCL [PROzac] 40 mg PO DAILY 11/30/24 12/13/24 History Potassium Chloride ER [K-Dur 20] 20 meq PO DAILY 11/30/24 12/13/24 History Aspirin 81 mg PO DAILY tab 12/11/24 12/13/24 Rx Heparin Sodium,Porcine (1 ml) 5,000 unit SQ Q12HR each 12/11/24 12/13/24 Rx [Heparin Sodium] cefuroxime axetiL [Ceftin] 500 mg PO BID 3 Days #6 tab 12/11/24 12/13/24 Rx levETIRAcetam [Keppra] 500 mg PO Q12HR #60 tab 12/11/24 12/13/24 Rx Caldesene Powder 1 applic TOPICAL Q12H 12/13/24 12/13/24 History Calprotect Cream 1 applic TOPICAL Q12H 12/13/24 12/13/24 History Gabapentin [Neurontin] 100 mg PO BID@0800,1700 12/13/24 12/13/24 History Magic Cup 1 dose PO BID@1200,1700 12/13/24 12/13/24 History Magnesium Chloride - Calium 1 tab PO DAILY 12/13/24 12/13/24 History 64-106mg Magnesium Hydroxide [Milk of 7,200 mg PO DAILY PRN 12/13/24 12/13/24 History Magnesia Concentrate] Midodrine [ProAmatine] 5 mg PO TID@0800,1200,1700 12/13/24 12/13/24 History Na Phos,M-B/Na Phos,Di-Ba [Fleet 133 ml RECTAL DAILY PRN 12/13/24 12/13/24 History Adult] bisacodyL [Dulcolax] 10 mg RECTAL DAILY PRN 12/13/24 12/13/24 History Allergies Allergy/AdvReac Type Severity Reaction Status Date / Time adhesive tape Allergy Rash/Hives Verified 12/13/24 11:32 Sulfa (Sulfonamide Allergy Itching Verified 12/13/24 11:32 Antibiotics) codeine AdvReac Nausea Verified 12/13/24 11:32 tetracycline AdvReac Nausea & Verified 12/13/24 11:32 Vomiting Physical Exam Vitals: Vital Signs Temp Pulse Resp BP Pulse Ox 12/13/24 12:27 59 L 18 149/85 100 12/13/24 09:22 98.0 F 64 18 109/73 98 Intake and Output 12/13/24 12/13/24 12/13/24 06:59 14:59 22:59 Other: Weight 56.699 kg Results CBC & Chem 7: 12/13/24 10:36 12/13/24 10:36 Labs: Abnormal Lab Results - Last 24 Hours (Table) 12/13/24 12/13/24 12/13/24 Range/Units 09:54 10:36 10:36 Hgb 15.3 H (12.0-15.0) g/dL Hct 47.8 H (37.2-46.3) % MCV 101.3 H (80.0-97.0) fL MCH 32.4 H (27.0-32.0) pg APTT (22.0-30.0) sec Sodium 136 L (137-145) mmol/L Chloride 97 L (98-107) mmol/L Carbon Dioxide 21 L (22-30) mmol/L BUN 63 H (7-17) mg/dL Creatinine 3.80 H (0.52-1.04) mg/dL Glucose 104 H (74-99) mg/dL AST 65 H (14-36) U/L ALT 45 H (4-34) U/L Alkaline Phosphatase 180 H (38-126) U/L Troponin I (0.000-0.034) ng/mL Urine Appearance Turbid H (Clear) Urine Protein 1+ H (Negative) Urine Ketones 1+ H (Negative) Urine Blood Large H (Negative) Ur Leukocyte Esterase Large H (Negative) Urine RBC 169 H (0-5) /hpf Urine WBC >182 H (0-5) /hpf Urine WBC Clumps Many H (None) /hpf Ur Squamous Epith Cells 6 H (0-4) /hpf Urine Bacteria Many H (None) /hpf Hyaline Casts 53 H (0-2) /lpf Urine Mucus Occasional H (None) /hpf Urine Yeast (Budding) Many H (None) /hpf 12/13/24 12/13/24 Range/Units 10:36 12:00 Hgb (12.0-15.0) g/dL Hct (37.2-46.3) % MCV (80.0-97.0) fL MCH (27.0-32.0) pg APTT 19.6 L (22.0-30.0) sec Sodium (137-145) mmol/L Chloride (98-107) mmol/L Carbon Dioxide (22-30) mmol/L BUN (7-17) mg/dL Creatinine (0.52-1.04) mg/dL Glucose (74-99) mg/dL AST (14-36) U/L ALT (4-34) U/L Alkaline Phosphatase (38-126) U/L Troponin I 0.055 H* (0.000-0.034) ng/mL Urine Appearance (Clear) Urine Protein (Negative) Urine Ketones (Negative) Urine Blood (Negative) Ur Leukocyte Esterase (Negative) Urine RBC (0-5) /hpf Urine WBC (0-5) /hpf Urine WBC Clumps (None) /hpf Ur Squamous Epith Cells (0-4) /hpf Urine Bacteria (None) /hpf Hyaline Casts (0-2) /lpf Urine Mucus (None) /hpf Urine Yeast (Budding) (None) /hpf Assessment and Plan Time with Patient: Less than 30
--- NOTE | 2024-12-13 16:58 | P.NPCON ---
History of Present Illness - Reason for Consult end stage renal disease - History of Present Illness Patient is an 79-year-old female with end-stage renal disease maintained on hemodialysis on Monday schedule. She was just discharged yesterday after hospitalization for UTI. Patient had mental status changes for which neurology was consulted. All workup was negative for any acute abnormal findings. She is admitted again today with history of decreased mentation and periods of unresponsiveness. No fever noted No diarrhea nausea or vomiting reported Past Medical History Past Medical History: Asthma, Cancer, COPD, Dialysis, Osteoarthritis (OA), Renal Disease, Thyroid Disorder Additional Past Medical History / Comment(s): ESRD- hemodialysis MOWEFR 3 1/2 hours, dialysis cath rt chest, kidney stones and UTI, hx lymphedema, hx pulmonary fibrosis, hx graves, hx rt foot torn ligaments, hx osteoporosis, hypotension; vitamin D deficiency, hypocalcemia, SKIN CANCER REMOVED FROM BRIDGE OF NOSE., PMR - polymyalgia rhematalia; currently bruised from neck to right breast History of Any Multi-Drug Resistant Organisms: CRE Date of last positivie culture/infection: 10/16/18 MDRO-CRE PER [facility] NOT [facility] MDRO Source:: Urine Past Surgical History: Bariatric Surgery, Orthopedic Surgery Additional Past Surgical History / Comment(s): hx bariatric surgery-Kye En Y,lung biopsy,radioactive iodine-tx thyroid,rectal and bladder suspensions,vaginal surgery as a child,partha carpel tunnel,rt knee meniscus rep air,D&C x3, left arm fistula 02/08/19(not working), left broken wrist, broken right wrist Past Anesthesia/Blood Transfusion Reactions: Previous Problems w/ Anesthesia Additional Past Anesthesia/Blood Transfusion Reaction / Comment(s): decrease bp with anesthesia, no problems with prior blood transfusion Past Psychological History: No Psychological Hx Reported Smoking Status: Never smoker Past Alcohol Use History: None Reported Past Drug Use History: None Reported - Past Family History Father Family Medical History: Pulmonary Embolus Additional Family Medical History / Comment(s): . Mother Family Medical History: Cancer Additional Family Medical History / Comment(s): colon ca, bone ca Sister(s) Family Medical History: Cancer Additional Family Medical History / Comment(s): kidney ca Daughter(s) Additional Family Medical History / Comment(s): lymphedema in legs Brother(s) Family Medical History: Cancer Additional Family Medical History / Comment(s): skin cancer Medications and Allergies Home Medications Medication Instructions Recorded Confirmed Type Montelukast [Singulair] 10 mg PO HS 08/23/18 12/13/24 History Albuterol Inhaler [Ventolin Hfa 2 puff INHALATION RT-Q6H PRN 02/07/23 12/13/24 History Inhaler] Bumetanide [BUMEX] 1 mg PO DAILY 10/17/23 12/13/24 History Ergocalciferol [Vitamin D2 (1250 1,250 mcg PO TUTHSA 10/17/23 12/13/24 History Mcg = 20006 Iu)] Sodium Bicarbonate Tab 1,300 mg PO BID@0800,1200 04/15/24 12/13/24 History Levothyroxine Sodium [Synthroid] 150 mcg PO DAILY@0600 04/28/24 12/13/24 History Acetaminophen Tab [Tylenol] 650 mg PO Q6HR PRN tab 04/30/24 12/13/24 Rx Baclofen 5 mg PO BID@0800,1700 08/16/24 12/13/24 History Benzonatate [Tessalon Perles] 100 mg PO TID PRN 08/16/24 12/13/24 History Loratadine 10 mg PO DAILY PRN #0 08/26/24 12/13/24 Rx Calcium Acetate [PhosLo] 2,001 mg PO TID-W/MEALS 11/30/24 12/13/24 History FLUoxetine HCL [PROzac] 40 mg PO DAILY 11/30/24 12/13/24 History Potassium Chloride ER [K-Dur 20] 20 meq PO DAILY 11/30/24 12/13/24 History Aspirin 81 mg PO DAILY tab 12/11/24 12/13/24 Rx Heparin Sodium,Porcine (1 ml) 5,000 unit SQ Q12HR each 12/11/24 12/13/24 Rx [Heparin Sodium] cefuroxime axetiL [Ceftin] 500 mg PO BID 3 Days #6 tab 12/11/24 12/13/24 Rx levETIRAcetam [Keppra] 500 mg PO Q12HR #60 tab 12/11/24 12/13/24 Rx Caldesene Powder 1 applic TOPICAL Q12H 12/13/24 12/13/24 History Calprotect Cream 1 applic TOPICAL Q12H 12/13/24 12/13/24 History Gabapentin [Neurontin] 100 mg PO BID@0800,1700 12/13/24 12/13/24 History Magic Cup 1 dose PO BID@1200,1700 12/13/24 12/13/24 History Magnesium Chloride - Calium 1 tab PO DAILY 12/13/24 12/13/24 History 64-106mg Magnesium Hydroxide [Milk of 7,200 mg PO DAILY PRN 12/13/24 12/13/24 History Magnesia Concentrate] Midodrine [ProAmatine] 5 mg PO TID@0800,1200,1700 12/13/24 12/13/24 History Na Phos,M-B/Na Phos,Di-Ba [Fleet 133 ml RECTAL DAILY PRN 12/13/24 12/13/24 History Adult] bisacodyL [Dulcolax] 10 mg RECTAL DAILY PRN 12/13/24 12/13/24 History Allergies Allergy/AdvReac Type Severity Reaction Status Date / Time adhesive tape Allergy Rash/Hives Verified 12/13/24 11:32 Sulfa (Sulfonamide Allergy Itching Verified 12/13/24 11:32 Antibiotics) codeine AdvReac Nausea Verified 12/13/24 11:32 tetracycline AdvReac Nausea & Verified 12/13/24 11:32 Vomiting Physical Exam Vitals: Vital Signs Temp Pulse Resp BP Pulse Ox 12/13/24 15:43 99 12/13/24 12:27 59 L 18 149/85 100 12/13/24 09:22 98.0 F 64 18 109/73 98 Intake and Output 12/13/24 12/13/24 12/13/24 06:59 14:59 22:59 Other: Weight 56.699 kg Patient is currently awake, she recognizes me and answers questions appropriately. Examination of the heart S1 and S2 Examination of the lungs bilateral breath sounds are heard Abdomen is soft nontender Examination of lower extremity shows no significant edema [employer] EXTERMINATOR HELPER exam shows patient is moving all 4 extremities Results - Lab Results Most recent lab results Calcium 9.7 mg/dL (8.4-10.2) 12/13/24 10:36 Magnesium 2.2 mg/dL (1.6-2.3) 12/13/24 10:36 12/13/24 10:36 12/13/24 10:36 Assessment and Plan Assessment: 1. End-stage renal disease on hemodialysis on Monday schedule 2. Altered mentation 3. Recent UTI status post treatment. Urine culture was reported as no growth however I am not sure if patient received antibiotics prior to the culture being sent out. Current UA shows significant pyuria. Started on antibiotics. 4. CKD mineral bone disorder Plan: Hemodialysis in a.m. May continue with sodium bicarb for now Repeat labs in a.m. Continue with antibiotics.
[2024-12-13] MEDS: MIDODRINE 5 MG TAB PO SCH (17:15)
[2024-12-13] MEDS: BACLOFEN 10 MG TAB PO SCH (17:15)
[2024-12-13] MEDS: CALCIUM ACETATE 667 MG TAB PO SCH (17:15)
[2024-12-13] MEDS: HEPARIN SODIUM,PORCINE 5,000 UNIT/ML 1 ML VIAL SQ SCH (20:16)
[2024-12-13] MEDS: levETIRAcetam 500 MG TAB PO SCH (20:16)
[2024-12-14] MEDS: LEVOTHYROXINE 75 MCG TAB PO SCH (06:46)
[2024-12-14] MEDS: ASPIRIN 81 MG PO SCH (09:02)
[2024-12-14] MEDS: SODIUM BICARBONATE TAB 650 MG TAB PO SCH (09:02)
[2024-12-14] MEDS: BUMETANIDE 1 MG TAB PO SCH (09:03)
[2024-12-14 09:07] LABS: ALT 46 U/L (8-44); AST 47 U/L (13-35); Albumin 3.4 g/dL (3.8-4.9); Albumin/Globulin Ratio 1.31 Ratio (1.60-3.17); Alkaline Phosphatase 166 U/L (41-126); Anion Gap 19.30 mmol/L (4.00-12.00); BUN/Creat Ratio 15.27 Ratio (12.00-20.00); Blood Urea Nitrogen 62.6 mg/dL (9.0-27.0); Calcium 9.2 mg/dL (8.7-10.3); Carbon Dioxide 18.7 mmol/L (21.6-31.8); Chloride 95 mmol/L (96-109); Globulin 2.6 g/dL (1.6-3.3); Glucose 92 mg/dL (70-110); Potassium 4.2 mmol/L (3.5-5.5); Sodium 133 mmol/L (135-145); Total Protein 6.0 g/dL (6.2-8.2)
--- NOTE | 2024-12-14 09:10 | XR ---
Chest, 2 view. CLINICAL INDICATION: Female, 79 years old with history of pneumonia COMPARISON: 12/13/2024 TECHNIQUE: PA and lateral views the chest are obtained. FINDINGS: There is no change in the right-sided dialysis catheter. There are surgical clips in the epigastric r egion. The lungs are clear and there is no consolidative or interstitial opacity. There is no pleural effusion or pneumothorax. The heart, pulmonary vasculature, mediastinum and anurag appear normal. The osseous structures are intact. IMPRESSION: No acute cardiopulmonary disease [facility], , 12/14/2024 9:08 AM
[2024-12-14] MEDS: AZITHROMYCIN 500 MG TAB PO SCH (09:33)
--- NOTE | 2024-12-14 12:49 | P.PN ---
Subjective Progress Note Date: 12/14/24 Patient seen in follow-up for ESRD. Family at bedside, concerned for recurrent UTI causing her AMS. Did not have HD yesterday and planned for today. Patient is currently awake, NAD Examination of the heart S1 and S2 Examination of the lungs bilateral breath sounds are heard Abdomen is soft nontender Examination of lower extremity shows no significant edema Objective - Vital Signs Vital signs: Vital Signs Temp 97.0 F L 12/14/24 07:01 Pulse 58 L 12/14/24 07:01 Resp 17 12/14/24 07:01 BP 146/84 12/14/24 07:01 Pulse Ox 100 12/14/24 07:01 FiO2 Intake & Output 12/13/24 12/14/24 12/14/24 18:59 06:59 18:59 Intake Total 60 Balance 60 Weight 56.699 kg Intake: Oral 60 Other: # Voids 1 # Bowel Movements 1 - Labs CBC & Chem 7: 12/13/24 10:36 12/14/24 00:00 Labs: Abnormal Lab Results - Last 24 Hours (Table) 12/13/24 12/13/24 12/13/24 Range/Units 12:00 18:24 20:14 APTT 19.6 L (22.0-30.0) sec Sodium (135-145) mmol/L Chloride (96-109) mmol/L Carbon Dioxide (21.6-31.8) mmol/L Anion Gap (4.00-12.00) mmol/L BUN (9.0-27.0) mg/dL Creatinine (0.6-1.5) mg/dL Est GFR (CKD-EPI) (>=60) Total Bilirubin (0.3-1.2) mg/dL AST (13-35) U/L ALT (8-44) U/L Alkaline Phosphatase (41-126) U/L Troponin I 0.039 H* 0.037 H* (0.000-0.034) ng/mL Total Protein (6.2-8.2) g/dL Albumin (3.8-4.9) g/dL Albumin/Globulin Ratio (1.60-3.17) Ratio 12/13/24 12/14/24 Range/Units 23:26 00:00 APTT (22.0-30.0) sec Sodium 133 L (135-145) mmol/L Chloride 95 L (96-109) mmol/L Carbon Dioxide 18.7 L (21.6-31.8) mmol/L Anion Gap 19.30 H (4.00-12.00) mmol/L BUN 62.6 H (9.0-27.0) mg/dL Creatinine 4.1 H (0.6-1.5) mg/dL Est GFR (CKD-EPI) 10 L (>=60) Total Bilirubin 0.2 L (0.3-1.2) mg/dL AST 47 H (13-35) U/L ALT 46 H (8-44) U/L Alkaline Phosphatase 166 H (41-126) U/L Troponin I 0.046 H* (0.000-0.034) ng/mL Total Protein 6.0 L (6.2-8.2) g/dL Albumin 3.4 L (3.8-4.9) g/dL Albumin/Globulin Ratio 1.31 L (1.60-3.17) Ratio Assessment and Plan Assessment: 1. End-stage renal disease on hemodialysis on Monday schedule 2. Altered mentation 3. Recent UTI status post treatment. Urine culture was reported as no growth however I am not sure if patient received antibiotics prior to the culture being sent out. Current UA shows significant pyuria. Started on antibiotics. 4. CKD mineral bone disorder Plan: Hemodialysis today, did not have yesterday. May continue with sodium bicarb for now Repeat labs in a.m. Continue with antibiotics.
[2024-12-14 16:37] VITALS: BMI 22.1
--- NOTE | 2024-12-14 17:22 | P.CRDCN ---
History of Present Illness Consult date: 12/14/24 History of present illness: HISTORY OF PRESENTING ILLNESS: 79-year-old female with history of pulmonary fibrosis, end-stage renal disease, lymphedema, polymyalgia rheumatica Resident of [facility] She was recently treated for UTI. She was also being evaluated for en cephalopathy and possible CVA with negative MRI in the recent hospital admission. This time she presented to the hospital because of altered mental status, unresponsiveness. Cardiology was consulted for some concerns of substernal chest heaviness and elevated troponin .............................. ................................................................................ ................................ Labs shows troponin of 0.03 with a flat pattern. BUN is 62, creatinine is 4.1. On further questioning she denies any symptoms of chest pain chest pressure. BP 146/84, heart rate is 67 EKG shows sinus bradycardia with no significant ST-T wave changes concerning for ischemia. Heart rate 58 bpm Home medications midodrine aspirin Bumex .................................................. ................................................................................ ............ Prior cardiac testing: Echo from December 2024 normal LVEF negative bubble study, no major valve dysfunction . ................................................................................ ............................................................. REVIEW OF SYSTEMS: 14 point review of system is negative except what is mentioned above in HPI. .............................................................. ................................................................................ PHYSICAL EXAMINATION: Neck: Brisk carotid upstroke, no jugular venous distention. Lungs: Clear to auscultation. Heart: Regular rate and rhythm, S1-S2, , no murmur or rub. Abdomen: Soft nontender, positive bowel sounds. Extremities: No edema, intact distal pulses. Neuro: Alert, oritented, no focal deficits. Detailed neuro exam was not performed. ....................................................................... ....................................................................... ASSESSMENT: # Elevated troponin, flat pattern, less likely cardiogenic. More likely related to poor renal clearance # Metabolic encephalopathy likely worsening dementia # Recent UTI treatment # ESRD on hemodialysis # History of pulmonary fibrosis # Multiple medical problems with debility and frailty PLAN: At this time patient is stable from cardiovascular standpoint. I will continue her home medications which include aspirin Midodrine and diuretics as per nephrology recommendation Cardiology team signed Parker Ramos MD, FAC, RPVI Past Medical History Past Medical History: Asthma, Cancer, COPD, Dialysis, Osteoarthritis (OA), Renal Disease, Thyroid Disorder Additional Past Medical History / Comment(s): ESRD- hemodialysis MOWEFR 3 1/2 hours, dialysis cath rt chest, kidney stones and UTI, hx lymphedema, hx pulmonary fibrosis, hx graves, hx rt foot torn ligaments, hx osteoporosis, hypotension; vitamin D deficiency, hypocalcemia, SKIN CANCER REMOVED FROM BRIDGE OF NOSE., PMR - polymyalgia rhematalia; currently bruised from neck to right breast, UTI History of Any Multi-Drug Resistant Organisms: CRE Date of last positivie culture/infection: 10/16/18 MDRO-CRE PER [facility] NOT [facility] MDRO Source:: Urine Past Surgical History: Bariatric Surgery, Orthopedic Surgery Additional Past Surgical History / Comment(s): hx bariatric surgery-Kye En Y,lung biopsy,radioactive iodine-tx thyroid,rectal and bladder suspensions,vaginal surgery as a child,partha carpel tunnel,rt knee meniscus repair,D&C x3, left arm fistula 02/08/19(not working), left broken wrist, broken right wrist Past Anesthesia/Blood Transfusion Reactions: Previous Problems w/ Anesthesia Additional Past Anesthesia/Blood Transfusion Reaction / Comment(s): decrease bp with anesthesia, no problems with prior blood transfusion Past Psychological History: No Psychological Hx Reported Smoking Status: Never smoker Past Alcohol Use History: None Reported Past Drug Use History: None Reported - Past Family History Father Family Medical History: Pulmonary Embolus Additional Family Medical History / Comment(s): . Mother Family Medical History: Cancer Additional Family Medical History / Comment(s): colon ca, bone ca Sister(s) Family Medical History: Cancer Additional Family Medical History / Comment(s): kidney ca Daughter(s) Additional Family Medical History / Comment(s): lymphedema in legs Brother(s) Family Medical History: Cancer Additional Family Medical History / Comment(s): skin cancer Medications and Allergies Home Medications Medication Instructions Recorded Confirmed Type Montelukast [Singulair] 10 mg PO HS 08/23/18 12/13/24 History Albuterol Inhaler [Ventolin Hfa 2 puff INHALATION RT-Q6H PRN 02/07/23 12/13/24 History Inhaler] Bumetanide [BUMEX] 1 mg PO DAILY 10/17/23 12/13/24 History Ergocalciferol [Vitamin D2 (1250 1,250 mcg PO TUTHSA 10/17/23 12/13/24 History Mcg = [id number] Iu)] Sodium Bicarbonate Tab 1,300 mg PO BID@0800,1200 04/15/24 12/13/24 History Levothyroxine Sodium [Synthroid] 150 mcg PO DAILY@0600 04/28/24 12/13/24 History Acetaminophen Tab [Tylenol] 650 mg PO Q6HR PRN tab 04/30/24 12/13/24 Rx Baclofen 5 mg PO BID@0800,1700 08/16/24 12/13/24 History Benzonatate [Tessalon Perles] 100 mg PO TID PRN 08/16/24 12/13/24 History Loratadine 10 mg PO DAILY PRN #0 08/26/24 12/13/24 Rx Calcium Acetate [PhosLo] 2,001 mg PO TID-W/MEALS 11/30/24 12/13/24 History FLUoxetine HCL [PROzac] 40 mg PO DAILY 11/30/24 12/13/24 History Potassium Chloride ER [K-Dur 20] 20 meq PO DAILY 11/30/24 12/13/24 History Aspirin 81 mg PO DAILY tab 12/11/24 12/13/24 Rx Heparin Sodium,Porcine (1 ml) 5,000 unit SQ Q12HR each 12/11/24 12/13/24 Rx [Heparin Sodium] cefuroxime axetiL [Ceftin] 500 mg PO BID 3 Days #6 tab 12/11/24 12/13/24 Rx levETIRAcetam [Keppra] 500 mg PO Q12HR #60 tab 12/11/24 12/13/24 Rx Caldesene Powder 1 applic TOPICAL Q12H 12/13/24 12/13/24 History Calprotect Cream 1 applic TOPICAL Q12H 12/13/24 12/13/24 History Gabapentin [Neurontin] 100 mg PO BID@0800,1700 12/13/24 12/13/24 History Magic Cup 1 dose PO BID@1200,1700 12/13/24 12/13/24 History Magnesium Chloride - Calium 1 tab PO DAILY 12/13/24 12/13/24 History 64-106mg Magnesium Hydroxide [Milk of 7,200 mg PO DAILY PRN 12/13/24 12/13/24 History Magnesia Concentrate] Midodrine [ProAmatine] 5 mg PO TID@0800,1200,1700 12/13/24 12/13/24 History Na Phos,M-B/Na Phos,Di-Ba [Fleet 133 ml RECTAL DAILY PRN 12/13/24 12/13/24 History Adult] bisacodyL [Dulcolax] 10 mg RECTAL DAILY PRN 12/13/24 12/13/24 History Allergies Allergy/AdvReac Type Severity Reaction Status Date / Time adhesive tape Allergy Rash/Hives Verified 12/13/24 11:32 Sulfa (Sulfonamide Allergy Itching Verified 12/13/24 11:32 Antibiotics) codeine AdvReac Nausea Verified 12/13/24 11:32 tetracycline AdvReac Nausea & Verified 12/13/24 11:32 Vomiting Physical Exam Vitals: Vital Signs Temp Pulse Resp BP Pulse Ox 12/14/24 14:03 97.3 F L 67 16 124/76 100 12/14/24 07:01 97.0 F L 58 L 17 146/84 100 12/14/24 01:30 97.6 F 66 16 125/77 98 12/13/24 19:18 61 16 126/83 100 Intake and Output 12/14/24 12/14/24 12/14/24 06:59 14:59 22:59 Intake Total 60 Balance 60 Intake: Oral 60 Other: Voiding Method Diaper # Voids 1 # Bowel Movements 1 Weight 56.699 kg Results 12/13/24 10:36 12/14/24 00:00 Cardiac Enzymes 12/13/24 12/13/24 12/13/24 Range/Units 18:24 20:14 23:26 AST (13-35) U/L Troponin I 0.039 H* 0.037 H* 0.046 H* (0.000-0.034) ng/mL 12/14/24 Range/Units 00:00 AST 47 H (13-35) U/L Troponin I (0.000-0.034) ng/mL Comprehensive Metabolic Panel 12/14/24 Range/Units 00:00 Sodium 133 L (135-145) mmol/L Potassium 4.2 (3.5-5.5) mmol/L Chloride 95 L (96-109) mmol/L Carbon Dioxide 18.7 L (21.6-31.8) mmol/L BUN 62.6 H (9.0-27.0) mg/dL Creatinine 4.1 H (0.6-1.5) mg/dL Glucose 92 (70-110) mg/dL Calcium 9.2 (8.7-10.3) mg/dL AST 47 H (13-35) U/L ALT 46 H (8-44) U/L Alkaline Phosphatase 166 H (41-126) U/L Total Protein 6.0 L (6.2-8.2) g/dL Albumin 3.4 L (3.8-4.9) g/dL Current Medications Generic Name Dose Route Start Last Admin Trade Name Freq PRN Reason Stop Dose Admin Acetaminophen 650 mg 12/13/24 15:52 Acetaminophen Tab 325 Mg Tab PO Q6HR PRN Mild Pain or Fever > 100.5 Albuterol Sulfate 2.5 mg 12/13/24 15:52 Albuterol Nebulized 2.5 Mg/3 Ml INHALATION RT-Q6H PRN Shortness Of Breath Aspirin 81 mg 12/14/24 09:00 12/14/24 09:02 Aspirin 81 Mg PO 81 mg DAILY CHANEL Administration Azithromycin 500 mg 12/14/24 09:00 12/14/24 09:33 Azithromycin 500 Mg Tab PO 12/15/24 09:01 500 mg DAILY CHANEL Administration Protocol Baclofen 5 mg 12/13/24 17:00 12/14/24 09:02 Baclofen 10 Mg Tab PO 5 mg BID@0800,1700 CHANEL Administration Benzonatate 100 mg 12/13/24 15:52 Benzonatate 100 Mg Cap PO TID PRN Cough Bumetanide 1 mg 12/14/24 09:00 12/14/24 09:03 Bumetanide 1 Mg Tab PO 1 mg DAILY CHANEL Administration Calcium Acetate 2,001 mg 12/13/24 17:30 12/14/24 12:38 Calcium Acetate 667 Mg Tab PO Not Given TID-W/MEALS CHANEL Fluoxetine HCl 40 mg 12/14/24 09:00 12/14/24 09:02 Fluoxetine Hcl 20 Mg Cap PO 40 mg DAILY CHANEL Administration Heparin Sodium (Porcine) 5,000 unit 12/13/24 21:00 12/14/24 09:04 Heparin Sodium,Porcine 5,000 Unit/Ml 1 Ml Vial SQ 5,000 unit Q12HR CHANEL Administration Ceftriaxone Sodium 2 gm/ 50 mls @ 100 mls/hr 12/14/24 09:00 12/14/24 09:00 Sodium Chloride IVPB 12/17/24 09:29 100 mls/hr Q24HR CHANEL Administration Protocol Levetiracetam 500 mg 12/13/24 21:00 12/14/24 09:02 Levetiracetam 500 Mg Tab PO 500 mg Q12HR CHANEL Administration Levothyroxine Sodium 150 mcg 12/14/24 06:00 12/14/24 06:46 Levothyroxine 75 Mcg Tab PO 150 mcg DAILY@0600 CHANEL Administration Loratadine 10 mg 12/13/24 15:52 Loratadine 10 Mg Tab PO DAILY PRN Allergy Symptoms Midodrine 5 mg 12/13/24 17:00 12/14/24 12:34 Midodrine 5 Mg Tab PO 5 mg TID@0800,1200,1700 CHANEL Administration Miscellaneous Information 1 each 12/13/24 12:24 Pneumonia Protocol Utilized 1 Each Misc PO ONCE PRN Per Protocol Sodium Bicarbonate 1,300 mg 12/14/24 08:00 12/14/24 12:34 Sodium Bicarbonate Tab 650 Mg Tab PO 1,300 mg BID@0800,1200 CHANEL Administration Intake and Output 12/14/24 12/14/24 12/14/24 06:59 14:59 22:59 Intake Total 60 Balance 60 Intake: Oral 60 Other: Voiding Method Diaper # Voids 1 # Bowel Movements 1 Weight 56.699 kg Patient Weight 12/15/24 06:59 Weight 56.699 kg 12/13/24 10:36 12/14/24 00:00
--- NOTE | 2024-12-14 23:25 | P.PN ---
Subjective Progress Note Date: 12/14/24 Patient is an 79 year old female with medical history of pulmonary fibrosis, lymphedema, polymyalgia rheumatica, ESRD hemodialysis. Patient was discharged from the hospital yesterday to [facility]. Patient was discharged on 3 days of oral ceftin to complete course of antibiotics for urinary tract infection. Patient had full neurological work up during that admission' including MRI, EEG which was negative for CVA. EEG was abnormal showing some delay and slowed activity although no epileptiform discharges noted. Patient was started on keppra twice daily. Patient also having waxing and waning of mentation and there was concern for UTI was started on IV cefriaxone and patient continued to have waxing and waning of mentation appears to be dementia clinically. Patient was recommended to follow along with neurology outpatient. Patient was discharged to [facility] for rehabilitation. Returned from the facility with concern for altered mentation and unresponsiveness. Patient has been following simple commands and responding to yes/no questions. feels she has UTI although is still completing course of antibiotics for UTI. Of note her urine culture from 12/05/24 was final and negative as well as blood culture final and negative. Urinalysis on admission shows turbid urine, 1+ ketones, large blood, large leukocyte esterase, 169 RBC, >182 WBC, many bacteria, many yeast. Patient had elevated troponin 0.055, AST 65, ALT 45, alk phos 180. Bun of 63, creatinine 3.80. Nephrology will be consulted for management of hemodialysis. 12/14/2024 Patient evaluated in follow up on the medical. More awake and alert and tolerating some oral intake. Family educated on the importance of keeping the head of bed up while patient is drinking/eating to avoid aspiration. Oral thrush noted on examination. Patient continues on IV ceftriaxone currently and awaiting repeat urine culture. Patient concerned with possible tick bite. Although unable to find the area on patients leg on assessment. REVIEW OF SYSTEMS: CONSTITUTIONAL: No fever, no malaise, no fatigue. HEENT: No recent visual problems or hearing problems. Denied any sore throat. CARDIOVASCULAR: No chest pain, orthopnea, PND, no palpitations, no syncope. PULMONARY: No shortness of breath, no cough, no hemoptysis. GASTROINTESTINAL: No diarrhea, no nausea, no vomiting, no abdominal pain. NEUROLOGICAL: No headaches, no weakness, no numbness. PHYSICAL EXAMINATION: GENERAL: The patient is alert and oriented x1, not in any acute distress. Well developed, well nourished. HEENT: Pupils are round and equally reacting to light. EOMI. No scleral icterus. No conjunctival pallor. Normocephalic, atraumatic. No pharyngeal erythema. No thyromegaly. CARDIOVASCULAR: S1 and S2 present. No murmurs, rubs, or gallops. PULMONARY: Chest is clear to auscultation, no wheezing or crackles. ABDOMEN: Soft, nontender, nondistended, normoactive bowel sounds. No palpable organomegaly. MUSCULOSKELETAL: No joint swelling or deformity. EXTREMITIES: No cyanosis, clubbing, or pedal edema. NEUROLOGICAL: Gross neurological examination did not reveal any focal deficits. SKIN: No rashes. Assessment Altered mentation, multifactorial, metabolic encephalopathy possibly secondary to end-stage renal disease with possible underlying dementia Urinary tract infection with sepsis poa End-stage renal disease on hemodialysis Troponin leak likely from renal disease Transaminitis with cholecystectomy in the past Recent hospitalization for UTI treated with antibiotics although urine culture negative Oral thrush Diarrhea, negative C.Dif, likely secondary to antibiotic use Pulmonary fibrosis Lymphedema history Borderline hypotension History of polymyalgia rheumatica Generalized weakness with gait dysfunction Severe protein calorie malnutrition with a BMI of 21.9 GI prophylaxis DVT prophylaxis: Subcu heparin Full code Plan Consult nephrology for hemodialysis patient on MWF schedule Urine culture and blood culture pending Patient was started empirically on IV ceftriaxone Continue keppra Home medications have been reviewed and continue Hold gabapentin due to altered mentation Repeat CMP in the AM The impression and plan of care has been dictated by Gosia Singer, Nurse Practitioner as directed. Dr. Favian MD I have performed a history and physical examination and medical decision making of this patient, discussed the same with the dictator, and agree with the dictators assessment and plan as written, documented as a scribe. Based on total visit time, I have performed more than 50% of this visit. Objective - Vital Signs Vital signs: Vital Signs Temp 97.0 F L 12/14/24 07:01 Pulse 58 L 12/14/24 07:01 Resp 17 12/14/24 07:01 BP 146/84 12/14/24 07:01 Pulse Ox 100 12/14/24 07:01 FiO2 Intake & Output 12/13/24 12/14/2412/14/25 18:59 06:59 18:59 Intake Total 60 Balance 60 Weight 56.699 kg Intake: Oral 60 Other: Voiding Method Diaper # Voids 1 # Bowel Movements 1 - Labs CBC & Chem 7: 12/13/24 10:36 12/14/24 00:00 Labs: Abnormal Lab Results - Last 24 Hours (Table) 12/13/24 12/13/24 12/13/24 Range/Units 18:24 20:14 23:26 Sodium (135-145) mmol/L Chloride (96-109) mmol/L Carbon Dioxide (21.6-31.8) mmol/L Anion Gap (4.00-12.00) mmol/L BUN (9.0-27.0) mg/dL Creatinine (0.6-1.5) mg/dL Est GFR (CKD-EPI) (>=60) Total Bilirubin (0.3-1.2) mg/dL AST (13-35) U/L ALT (8-44) U/L Alkaline Phosphatase (41-126) U/L Troponin I 0.039 H* 0.037 H* 0.046 H* (0.000-0.034) ng/mL Total Protein (6.2-8.2) g/dL Albumin (3.8-4.9) g/dL Albumin/Globulin Ratio (1.60-3.17) Ratio 12/14/24 Range/Units 00:00 Sodium 133 L (135-145) mmol/L Chloride 95 L (96-109) mmol/L Carbon Dioxide 18.7 L (21.6-31.8) mmol/L Anion Gap 19.30 H (4.00-12.00) mmol/L BUN 62.6 H (9.0-27.0) mg/dL Creatinine 4.1 H (0.6-1.5) mg/dL Est GFR (CKD-EPI) 10 L (>=60) Total Bilirubin 0.2 L (0.3-1.2) mg/dL AST 47 H (13-35) U/L ALT 46 H (8-44) U/L Alkaline Phosphatase 166 H (41-126) U/L Troponin I (0.000-0.034) ng/mL Total Protein 6.0 L (6.2-8.2) g/dL Albumin 3.4 L (3.8-4.9) g/dL Albumin/Globulin Ratio 1.31 L (1.60-3.17) Ratio Assessment and Plan Time with Patient: Less than 30
[2024-12-15 09:04] LABS: BUN/Creat Ratio 12.00 Ratio (12.00-20.00); Blood Urea Nitrogen 30.0 mg/dL (9.0-27.0); Glucose 82 mg/dL (70-110)
[2024-12-15 09:05] LABS: Anion Gap 17.40 mmol/L (4.00-12.00); Calcium 9.1 mg/dL (8.7-10.3); Carbon Dioxide 21.6 mmol/L (21.6-31.8); Chloride 97 mmol/L (96-109); Potassium 4.5 mmol/L (3.5-5.5); Sodium 136 mmol/L (135-145)
[2024-12-15 09:26] LABS: Basophils # (A) 0.07 X 10*3/uL (0.00-0.10); Basophils % (A) 1.0 %; Eosinophils # (A) 0.16 X 10*3/uL (0.04-0.35); Eosinophils % (A) 2.4 %; HCT 45.6 % (37.2-46.3); HGB 14.1 g/dL (12.0-15.0); Immature Grans, Automated 0.40 %; Lymphocytes # (A) 1.16 X 10*3/uL (0.90-5.00); Lymphocytes % (A) 17.2 %; MCH 31.5 pg (27.0-32.0); MCHC 30.9 g/dL (32.0-37.0); MCV 102.0 FL (80.0-97.0); Monocytes # (A) 0.66 X 10*3/uL (0.20-1.00); Monocytes % (A) 9.8 %; NRBC Per 100 WBC 0 X 10*3/uL (0.00-0.01); Neutrophils # (A) 4.65 X 10*3/uL (1.80-7.70); Neutrophils % (A) 69.2 %; Platelet Count 147 X 10*3/uL (140-440); RBC 4.47 X 10*6/uL (4.10-5.20); RDW 12.6 % (11.5-14.5); WBC 6.73 X 10*3/uL (4.50-10.00)
[2024-12-15] MEDS: ZINC OXIDE PASTE (Z-GUARD) 1 APPLIC TOPICAL PRN (11:06)
--- NOTE | 2024-12-15 12:44 | P.PN ---
Subjective Progress Note Date: 12/15/24 Patient seen in follow-up for ESRD. Family at bedside, concerned for recurrent UTI causing her AMS. Tolerated HD yesterday. Patient is currently awake, NAD Examination of the heart S1 and S2 Examination of the lungs bilateral breath sounds are heard Abdomen is soft nontender Examination of lower extremity shows no significant edema Objective - Vital Signs Vital signs: Vital Signs Temp 97.3 F L 12/15/24 07:41 Pulse 70 12/15/24 08:30 Resp 17 12/15/24 08:30 BP 126/76 12/15/24 07:41 Pulse Ox 99 12/15/24 07:41 FiO2 Intake & Output 12/14/24 12/15/24 12/15/24 18:59 06:59 18:59 Intake Total 460 Output Total 400 Balance 60 Weight 56.699 kg Intake: Oral 60 Hemodialysis 400 Output: Hemodialysis 0 Hemodialysis Net Amount 400 Other: Voiding Method Diaper Diaper Diaper # Voids 1 1 1 # Bowel Movements 1 - Labs CBC & Chem 7: 12/15/24 05:01 12/15/24 05:01 Labs: Abnormal Lab Results - Last 24 Hours (Table) 12/15/24 12/15/24 Range/Units 05:01 05:01 MCV 102.0 H (80.0-97.0) FL MCHC 30.9 L (32.0-37.0) g/dL Anion Gap 17.40 H (4.00-12.00) mmol/L BUN 30.0 H (9.0-27.0) mg/dL Creatinine 2.5 H (0.6-1.5) mg/dL Est GFR (CKD-EPI) 19 L (>=60) Microbiology - Last 24 Hours (Table) 12/13/24 09:54 Urine Culture - Preliminary Urine,Voided Gram Neg Bacilli 12/13/24 10:36 Blood Culture - Preliminary Blood Assessment and Plan Assessment: 1. End-stage renal disease on hemodialysis on Monday schedule 2. Altered mentation 3. Recent UTI status post treatment. Urine culture was reported as no growth however I am not sure if patient received antibiotics prior to the culture being sent out. Current UA shows significant pyuria. Started on antibiotics. 4. CKD mineral bone disorder Plan: Hemodialysis yesterday, continue MWF schedule Repeat labs in a.m. Continue with antibiotics.
--- NOTE | 2024-12-15 13:39 | P.PN ---
Subjective Progress Note Date: 12/15/24 Patient is an 79 year old female with medical history of pulmonary fibrosis, lymphedema, polymyalgia rheumatica, ESRD hemodialysis. Patient was discharged from the hospital yesterday to [facility]. Patient was discharged on 3 days of oral ceftin to complete course of antibiotics for urinary tract infection. Patient had full neurological work up during that admission' including MRI, EEG which was negative for CVA. EEG was abnormal showing some delay and slowed activity although no epileptiform discharges noted. Patient was started on keppra twice daily. Patient also having waxing and waning of mentation and there was concern for UTI was started on IV cefriaxone and patient continued to have waxing and waning of mentation appears to be dementia clinically. Patient was recommended to follow along with neurology outpatient. Patient was discharged to [facility] for rehabilitation. Returned from the facility with concern for altered mentation and unresponsiveness. Patient has been following simple commands and responding to yes/no questions. feels she has UTI although is still completing course of antibiotics for UTI. Of note her urine culture from 12/05/24 was final and negative as well as blood culture final and negative. Urinalysis on admission shows turbid urine, 1+ ketones, large blood, large leukocyte esterase, 169 RBC, >182 WBC, many bacteria, many yeast. Patient had elevated troponin 0.055, AST 65, ALT 45, alk phos 180. Bun of 63, creatinine 3.80. Nephrology will be consulted for management of hemodialysis. 12/14/2024 Patient evaluated in follow up on the medical. More awake and alert and tolerating some oral intake. Family educated on the importance of keeping the head of bed up while patient is drinking/eating to avoid aspiration. Oral thrush noted on examination. Patient continues on IV ceftriaxone currently and awaiting repeat urine culture. Patient concerned with possible tick bite. Although unable to find the area on patients leg on assessment. 12/15/2024 Patient evaluated today in follow up. More awake and alert. Per at the bedside she has also been more talkative. Continues on IV ceftriaxone and pending urine culture. Patient had hemodialysis. Her electrolytes and renal function are improved. REVIEW OF SYSTEMS: CONSTITUTIONAL: No fever, no malaise, no fatigue. HEENT: No recent visual problems or hearing problems. Denied any sore throat. CARDIOVASCULAR: No chest pain, orthopnea, PND, no palpitations, no syncope. PULMONARY: No shortness of breath, no cough, no hemoptysis. GASTROINTESTINAL: No diarrhea, no nausea, no vomiting, no abdominal pain. NEUROLOGICAL: No headaches, no weakness, no numbness. PHYSICAL EXAMINATION: GENERAL: The patient is alert and oriented x1, not in any acute distress. Well developed, well nourished. HEENT: Pupils are round and equally reacting to light. EOMI. No scleral icterus. No conjunctival pallor. Normocephalic, atraumatic. No pharyngeal erythema. No thyromegaly. CARDIOVASCULAR: S1 and S2 present. No murmurs, rubs, or gallops. PULMONARY: Chest is clear to auscultation, no wheezing or crackles. ABDOMEN: Soft, nontender, nondistended, normoactive bowel sounds. No palpable organomegaly. MUSCULOSKELETAL: No joint swelling or deformity. EXTREMITIES: No cyanosis, clubbing, or pedal edema. NEUROLOGICAL: Gross neurological examination did not reveal any focal deficits. SKIN: No rashes. Assessment Altered mentation, multifactorial, metabolic encephalopathy possibly secondary to end-stage renal disease with possible underlying dementia Urinary tract infection with sepsis poa End-stage renal disease on hemodialysis Troponin leak likely from renal disease Transaminitis with cholecystectomy in the past Recent hospitalization for UTI treated with antibiotics although urine culture negative Oral thrush Diarrhea, negative C.Dif, likely secondary to antibiotic use Pulmonary fibrosis Lymphedema history Borderline hypotension History of polymyalgia rheumatica Generalized weakness with gait dysfunction Severe protein calorie malnutrition with a BMI of 21.9 GI prophylaxis DVT prophylaxis: Subcu heparin Full code Plan Consult nephrology for hemodialysis patient on MWF schedule Urine culture and blood culture pending Patient was started empirically on IV ceftriaxone Continue keppra Home medications have been reviewed and continue Hold gabapentin due to altered mentation No further work up per cardiology Repeat CMP in the AM The impression and plan of care has been dictated by Gosia Singer, Nurse Practitioner as directed. Dr. Favian MD I have performed a history and physical examination and medical decision making of this patient, discussed the same with the dictator, and agree with the dictators assessment and plan as written, documented as a scribe. Based on total visit time, I have performed more than 50% of this visit. Objective - Vital Signs Vital signs: Vital Signs Temp 97.3 F L 12/15/24 07:41 Pulse 68 12/15/24 11:52 Resp 16 12/15/24 11:52 BP 103/71 12/15/24 11:52 Pulse Ox 99 12/15/24 07:41 FiO2 Intake & Output 12/14/24 12/15/24 12/15/24 18:59 06:59 18:59 Intake Total 460 Output Total 400 Balance 60 Weight 56.699 kg Intake: Oral 60 Hemodialysis 400 Output: Hemodialysis 0 Hemodialysis Net Amount 400 Other: Voiding Method Diaper Diaper Diaper # Voids 1 1 1 # Bowel Movements 1 - Labs CBC & Chem 7: 12/15/24 05:01 12/15/24 05:01 Labs: Abnormal Lab Results - Last 24 Hours (Table) 12/15/24 12/15/24 Range/Units 05:01 05:01 MCV 102.0 H (80.0-97.0) FL MCHC 30.9 L (32.0-37.0) g/dL Anion Gap 17.40 H (4.00-12.00) mmol/L BUN 30.0 H (9.0-27.0) mg/dL Creatinine 2.5 H (0.6-1.5) mg/dL Est GFR (CKD-EPI) 19 L (>=60) Microbiology - Last 24 Hours (Table) 12/13/24 09:54 Urine Culture - Preliminary Urine,Voided Gram Neg Bacilli 12/13/24 10:36 Blood Culture - Preliminary Blood
[2024-12-15] MEDS: NYSTATIN 100,000 UNIT/ML SUSP 500,000 UNIT/5 ML CUP PO SCH (17:03)
[2024-12-16] MEDS ORDERED: ONDANSETRON 4 MG/2 ML VIAL IVP PRN (05:31)
[2024-12-16] MEDS: ONDANSETRON 4 MG/2 ML VIAL IVP STA (06:03)
[2024-12-16 07:56] LABS: Glucose,Whole Blood 88 mg/dL (70-110)
[2024-12-16 08:16] LABS: ALT 205 U/L (8-44); AST 281 U/L (13-35); Albumin 3.6 g/dL (3.8-4.9); Albumin/Globulin Ratio 1.33 Ratio (1.60-3.17); Alkaline Phosphatase 189 U/L (41-126); Anion Gap 23.10 mmol/L (4.00-12.00); BUN/Creat Ratio 14.48 Ratio (12.00-20.00); Blood Urea Nitrogen 47.8 mg/dL (9.0-27.0); Calcium 9.5 mg/dL (8.7-10.3); Carbon Dioxide 18.9 mmol/L (21.6-31.8); Chloride 97 mmol/L (96-109); Globulin 2.7 g/dL (1.6-3.3); Glucose 95 mg/dL (70-110); Potassium 4.3 mmol/L (3.5-5.5); Sodium 139 mmol/L (135-145); Total Protein 6.3 g/dL (6.2-8.2)
--- NOTE | 2024-12-16 08:24 | P.PN ---
Subjective Patient is seen in follow-up for end-stage renal disease. She is maintained on hemodialysis on Monday schedule. Resting in bed. Poor historian. Vital signs are stable. General: No acute distress. HEENT: Head exam is unremarkable. LUNGS: No audible rhonchi or wheezes. HEART: Rate and Rhythm are regular. ABDOMEN: Nontender. EXTREMITITES: Trace edema. Objective - Vital Signs Vital signs: Vital Signs Temp 96.9 F L 12/16/24 07:00 Pulse 72 12/16/24 07:00 Resp 14 12/16/24 07:00 BP 147/78 12/16/24 07:00 Pulse Ox 99 12/16/24 08:19 FiO2 Intake & Output 12/15/24 12/16/24 12/16/24 18:59 06:59 18:59 Intake Total 200 Balance 200 Intake: Oral 200 Other: Voiding Method Diaper Diaper # Voids 1 2 # Bowel Movements 1 - Labs CBC & Chem 7: 12/15/24 05:01 12/16/24 05:23 Labs: Abnormal Lab Results - Last 24 Hours (Table) 12/15/24 12/15/24 12/16/24 Range/Units 05:01 05:01 05:23 MCV 102.0 H (80.0-97.0) FL MCHC 30.9 L (32.0-37.0) g/dL Carbon Dioxide 18.9 L (21.6-31.8) mmol/L Anion Gap 17.40 H 23.10 H (4.00-12.00) mmol/L BUN 30.0 H 47.8 H (9.0-27.0) mg/dL Creatinine 2.5 H 3.3 H (0.6-1.5) mg/dL Est GFR (CKD-EPI) 19 L 14 L (>=60) Total Bilirubin 0.2 L (0.3-1.2) mg/dL AST 281 H (13-35) U/L ALT 205 H (8-44) U/L Alkaline Phosphatase 189 H (41-126) U/L Albumin 3.6 L (3.8-4.9) g/dL Albumin/Globulin Ratio 1.33 L (1.60-3.17) Ratio Microbiology - Last 24 Hours (Table) 12/13/24 09:54 Urine Culture - Preliminary Urine,Voided Escherichia coli ESBL 12/13/24 10:36 Blood Culture - Preliminary Blood Assessment and Plan Plan: Assessment: 1. End-stage renal disease maintained on hemodialysis on Monday schedule. 2. Recent UTI status posttreatment. Culture at this admission positive for ESBL. On antibiotics. 3. Altered mental status possibly from above. 4. Chronic kidney disease mineral bone disease maintained on PhosLo. 5. Chronic metabolic acidosis secondary to chronic kidney disease maintained on oral bicarb. Plan: Hemodialysis today.
--- NOTE | 2024-12-16 12:26 | CDI ---
Documentation Clarification Form Date: 12/16/2024 11:00:44 AM From: Shonna Richards RN, CCDS Phone: [phone] Admit Date: 12/13/2024 12:37:00 PM Patient Name: Margie Dallas Visit Number: [id number] Discharge Date: ATTENTION: The Clinical Documentation Specialists (CDI) and [facility] Coding Staff appreciate your assistance in clarifying documentation. Please respond to the clarification below the line at the bottom and electronically sign. The CDI & [facility] Coding staff will review the response and follow-up if needed. Please note: Queries are made part of the Legal Health Record. If you have any questions, please contact the author of this message via ITS. Doctor. Jimenez Ballesteros Sepsis is documented in the ongoing progress starting on 12/14/24 which may lack sufficient clinical evidence/support in the medical record. Additional clarification is requested. History/Risk Factors: Cancer, COPD, recent UTI, ESRD- hemodialysis Clinical Indicators: 79-year-old female presented with altered mentation with urinalysis on admission shows turbid urine, Urine WBC >182, Ur Leukocyte Esterase Large 12/13 Urine culture: Escherichia coli ESBL 12/13 VS: (09:22) 109/73 64 18 98% 2/L NC, (16:50) 142/84 60 16 96.1 92% 3/L NC 12/13 Labs: WBC 8.95, Neutrophils 6.73, NA 136, CL 97, CO2 21, BUN 63, Cr 3.80 12/13 CXR: Airspace opacities projecting over the spine correlate for pneumonia. 12/14 CXR: No acute cardiopulmonary disease Treatment: Case Specialist /Telemetry LR 1,000 Bolus 12/13-. Recephin 2 GM IVPB Q 24 HR 12/14-12/15 Invanz IVPB Q 24 12/16- After work up and study, please clarify which diagnosis is most appropriate? [ ] Sepsis is ruled out. The patient had a localized infection without systemic response or organ dysfunction. [ ] Sepsis was initially suspected, but subsequent clinical findings did not support the diagnosis, and it has been ruled out. [x ] Sepsis is clinically supported as evidenced by these additional clinical indicators: [ ] Other, please specify [ ] Unable to determine (Template Last Reviewed: June 2023) MTDD
[2024-12-16] MEDS: ERTAPENEM 0.5 GM in SODIUM CHLORIDE 0.9% 50 ML IVPB SCH (13:15)
[2024-12-16 13:25] LABS: Bacteria,Urine Many /hpf; Bilirubin,Urine Negative (Negative); Blood,Urine Moderate (Negative); Budding Yeast,Urine Many /hpf; Color,Urine Yellow; Glucose,Urine (UA) Negative (Negative); Hyaline Casts,Urine 56 /lpf (0-2); Ketones,Urine 1+ (Negative); Leukocyte Esterase,Urine Large (Negative); Mucus,Urine Many /hpf; Nitrite,Urine Negative (Negative); PH, Urine 5.5 (5.0-8.0); Protein,Urine 1+ (Negative); RBC,Urine 21 /hpf (0-5); Specific Gravity,Urine 1.016 (1.001-1.035); Urobilinogen,Urine <2.0 mg/dL (<2.0); WBC,Urine >182 /hpf (0-5)
[2024-12-16] MEDS: ERTAPENEM 1 GM in SODIUM CHLORIDE 0.9% 50 ML IVPB SCH (14:06)
--- NOTE | 2024-12-16 22:24 | P.CONS ---
History of Present Illness - Reason for Consult Consult date: 12/16/24 ESBL E. coli UTI Requesting physician: Gosia Singer - Chief Complaint Weakness mental status changes x few days - History of Present Illness Patient is a 79-year-old female with a past medical history significant for end-stage renal disease on hemodialysis patient still makes urine and has been brought into the hospital 3 days ago as the patient was noted to be not responding and did not answer any question with evidence of mental status changes on presentation to the hospital the patient was afebrile and no fever has been recorded subsequently patient was not hypotensive mildly hypoxic on 2 L nasal cannula oxygen patient did have a normal white count BUN and creatinine has been elevated troponins mildly elevated as well as elevated liver enzymes patient did have significantly positive UA with large leukocyte esterase more than 1-2 WBC he has been treated with Rocephin urine culture will finalized with ESBL E. coli today that has prompted this consultation blood culture has been negative most information has been obtained from review the chart and talking to the as the patient was lethargic undergoing dialysis and Provide any history Review of Systems Positive points has been mentioned in HPI complete review could not be obtained because of his underlying mental status Past Medical History Past Medical History: Asthma, Cancer, COPD, Dialysis, Osteoarthritis (OA), Renal Disease, Thyroid Disorder Additional Past Medical History / Comment(s): ESRD- hemodialysis MOWEFR 3 1/2 hours, dialysis cath rt chest, kidney stones and UTI, hx lymphedema, hx pulmonary fibrosis, hx graves, hx rt foot torn ligaments, hx osteoporosis, hypotension; vitamin D deficiency, hypocalcemia, SKIN CANCER REMOVED FROM BRIDGE OF NOSE., PMR - polymyalgia rhematalia; currently bruised from neck to right breast, UTI 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 PER [facility] NOT [facility] MDRO Source:: Urine Past Surgical History: Bariatric Surgery, Orthopedic Surgery Additional Past Surgical History / Comment(s): hx bariatric surgery-Kye En Y,lung biopsy,radioactive iodine-tx thyroid,rectal and bladder suspensions,vaginal surgery as a child,partha carpel tunnel,rt knee meniscus repair,D&C x3, left arm fistula 02/08/19(not working), left broken wrist, broken right wrist Past Anesthesia/Blood Transfusion Reactions: Previous Problems w/ Anesthesia Additional Past Anesthesia/Blood Transfusion Reaction / Comm: decrease bp with anesthesia, no problems with prior blood transfusion Past Psychological History: No Psychological Hx Reported Smoking Status: Never smoker Past Alcohol Use History: None Reported Past Drug Use History: None Reported - Past Family History Father Family Medical History: Pulmonary Embolus Additional Family Medical History / Comment(s): . Mother Family Medical History: Cancer Additional Family Medical History / Comment(s): colon ca, bone ca Sister(s) Family Medical History: Cancer Additional Family Medical History / Comment(s): kidney ca Daughter(s) Additional Family Medical History / Comment(s): lymphedema in legs Brother(s) Family Medical History: Cancer Additional Family Medical History / Comment(s): skin cancer Medications and Allergies Home Medications Medication Instructions Recorded Confirmed Type Montelukast [Singulair] 10 mg PO HS 08/23/18 12/13/24 History Albuterol Inhaler [Ventolin Hfa 2 puff INHALATION RT-Q6H PRN 02/07/23 12/13/24 History Inhaler] Bumetanide [BUMEX] 1 mg PO DAILY 10/17/23 12/13/24 History Ergocalciferol [Vitamin D2 (1250 1,250 mcg PO TUTHSA 10/17/23 12/13/24 History Mcg = 20568 Iu)] Sodium Bicarbonate Tab 1,300 mg PO BID@0800,1200 04/15/24 12/13/24 History Levothyroxine Sodium [Synthroid] 150 mcg PO DAILY@0600 04/28/24 12/13/24 History Acetaminophen Tab [Tylenol] 650 mg PO Q6HR PRN tab 04/30/24 12/13/24 Rx Baclofen 5 mg PO BID@0800,1700 08/16/24 12/13/24 History Benzonatate [Tessalon Perles] 100 mg PO TID PRN 08/16/24 12/13/24 History Loratadine 10 mg PO DAILY PRN #0 08/26/24 12/13/24 Rx Calcium Acetate [PhosLo] 2,001 mg PO TID-W/MEALS 11/30/24 12/13/24 History FLUoxetine HCL [PROzac] 40 mg PO DAILY 11/30/24 12/13/24 History Potassium Chloride ER [K-Dur 20] 20 meq PO DAILY 11/30/24 12/13/24 History Aspirin 81 mg PO DAILY tab 12/11/24 12/13/24 Rx Heparin Sodium,Porcine (1 ml) 5,000 unit SQ Q12HR each 12/11/24 12/13/24 Rx [Heparin Sodium] cefuroxime axetiL [Ceftin] 500 mg PO BID 3 Days #6 tab 12/11/24 12/13/24 Rx levETIRAcetam [Keppra] 500 mg PO Q12HR #60 tab 12/11/24 12/13/24 Rx Caldesene Powder 1 applic TOPICAL Q12H 12/13/24 12/13/24 History Calprotect Cream 1 applic TOPICAL Q12H 12/13/24 12/13/24 History Gabapentin [Neurontin] 100 mg PO BID@0800,1700 12/13/24 12/13/24 History Magic Cup 1 dose PO BID@1200,1700 12/13/24 12/13/24 History Magnesium Chloride - Calium 1 tab PO DAILY 12/13/24 12/13/24 History 64-106mg Magnesium Hydroxide [Milk of 7,200 mg PO DAILY PRN 12/13/24 12/13/24 History Magnesia Concentrate] Midodrine [ProAmatine] 5 mg PO TID@0800,1200,1700 12/13/24 12/13/24 History Na Phos,M-B/Na Phos,Di-Ba [Fleet 133 ml RECTAL DAILY PRN 12/13/24 12/13/24 History Adult] bisacodyL [Dulcolax] 10 mg RECTAL DAILY PRN 12/13/24 12/13/24 History Allergies Allergy/AdvReac Type Severity Reaction Status Date / Time adhesive tape Allergy Rash/Hives Verified 12/13/24 11:32 Sulfa (Sulfonamide Allergy Itching Verified 12/13/24 11:32 Antibiotics) codeine AdvReac Nausea Verified 12/13/24 11:32 tetracycline AdvReac Nausea & Verified 12/13/24 11:32 Vomiting Physical Exam Vitals: Vital Signs Temp Pulse Resp BP BP Pulse Ox 12/16/24 08:19 99 12/16/24 07:00 96.9 F L 72 14 147/78 100 12/16/24 00:43 97.8 F 70 18 129/77 98 07/13/25 19:13 97.6 F 62 17 142/86 99 12/15/24 14:50 65 14 12/15/24 14:15 97.6 F 65 14 107/68 99 12/15/24 11:52 68 16 103/71 Intake and Output 12/15/24 12/16/24 12/16/24 22:59 06:59 14:59 Intake Total 100 Balance 100 Intake: Oral 100 Other: Voiding Method Diaper Diaper # Voids 1 2 GENERAL DESCRIPTION: Elderly female lying in bed, no distress. No tachypnea or accessory muscle of respiration use. HEENT: Shows Pallor , no scleral icterus. Oral mucous membrane is dry. NECK: Trachea central, no thyromegaly. LUNGS: Unlabored breathing. Decreased breath sound at the base HEART: S1, S2, regular rate and rhythm. No loud murmur ABDOMEN: Soft, no tenderness , EXTREMITIES: No edema of feet. SKIN: No rash, no masses palpable. NEUROLOGICAL: The patient is lethargic though arousable orientation cannot be determined Results CBC & Chem 7: 12/15/24 05:01 12/16/24 05:23 Labs: Abnormal Lab Results - Last 24 Hours (Table) 12/16/24 Range/Units 05:23 Carbon Dioxide 18.9 L (21.6-31.8) mmol/L Anion Gap 23.10 H (4.00-12.00) mmol/L BUN 47.8 H (9.0-27.0) mg/dL Creatinine 3.3 H (0.6-1.5) mg/dL Est GFR (CKD-EPI) 14 L (>=60) Total Bilirubin 0.2 L (0.3-1.2) mg/dL AST 281 H (13-35) U/L ALT 205 H (8-44) U/L Alkaline Phosphatase 189 H (41-126) U/L Albumin 3.6 L (3.8-4.9) g/dL Albumin/Globulin Ratio 1.33 L (1.60-3.17) Ratio Microbiology - Last 24 Hours (Table) 12/13/24 09:54 Urine Culture - Preliminary Urine,Voided Escherichia coli ESBL 12/13/24 10:36 Blood Culture - Preliminary Blood Assessment and Plan (1) History of ESBL E. coli infection Current Visit: Yes Status: Acute Code(s): Z86.19 - PERSONAL HISTORY OF OTHER INFECTIOUS AND PARASITIC DISEASES SNOMED Code(s): 547594200 (2) Allergy to multiple antibiotics Current Visit: Yes Status: Acute Code(s): Z88.1 - ALLERGY STATUS TO OTHER ANTIBIOTIC AGENTS SNOMED Code(s): 188943379 (3) UTI (urinary tract infection) Current Visit: Yes Status: Acute Code(s): N39.0 - URINARY TRACT INFECTION, SITE NOT SPECIFIED SNOMED Code(s): 36736865 Plan: 1patient presented hospital with weakness lethargy with significant mental status changes patient did have a significantly positive UA with urine culture positive for ESBL E. coli did not respond to the Rocephin concerning for symptomatic UTI has no other obvious focus for her worsening mental status 2-we will repeat a UA and a culture 3-discontinue Rocephin 4-start the patient on Invanz 500 mg daily and see clinical response We will follow on clinical condition and cultures to further adjust medication if needed Thank you for this consultation we will follow the patient along with you Dictation was produced using [employer] dictation software. please excuse any grammatical, word or spelling errors. Time with Patient: Greater than 30
--- NOTE | 2024-12-16 23:37 | P.PN ---
Subjective Progress Note Date: 12/16/24 Patient is an 79 year old female with medical history of pulmonary fibrosis, lymphedema, polymyalgia rheumatica, ESRD hemodialysis. Patient was discharged from the hospital yesterday to [facility]. Patient was discharged on 3 days of oral ceftin to complete course of antibiotics for urinary tract infection. Patient had full neurological work up during that admission' including MRI, EEG which was negative for CVA. EEG was abnormal showing some delay and slowed activity although no epileptiform discharges noted. Patient was started on keppra twice daily. Patient also having waxing and waning of mentation and there was concern for UTI was started on IV cefriaxone and patient continued to have waxing and waning of mentation appears to be dementia clinically. Patient was recommended to follow along with neurology outpatient. Patient was discharged to [facility] for rehabilitation. Returned from the facility with concern for altered mentation and unresponsiveness. Patient has been following simple commands and responding to yes/no questions. feels she has UTI although is still completing course of antibiotics for UTI. Of note her urine culture from 12/05/24 was final and negative as well as blood culture final and negative. Urinalysis on admission shows turbid urine, 1+ ketones, large blood, large leukocyte esterase, 169 RBC, >182 WBC, many bacteria, many yeast. Patient had elevated troponin 0.055, AST 65, ALT 45, alk phos 180. Bun of 63, creatinine 3.80. Nephrology will be consulted for management of hemodialysis. 12/14/2024 Patient evaluated in follow up on the medical. More awake and alert and tolerating some oral intake. Family educated on the importance of keeping the head of bed up while patient is drinking/eating to avoid aspiration. Oral thrush noted on examination. Patient continues on IV ceftriaxone currently and awaiting repeat urine culture. Patient concerned with possible tick bite. Although unable to find the area on patients leg on assessment. 12/15/2024 Patient evaluated today in follow up. More awake and alert. Per at the bedside she has also been more talkative. Continues on IV ceftriaxone and pending urine culture. Patient had hemodialysis. Her electrolytes and renal function are improved. 12/16/2024 Patient is evaluated today in follow up. Resting comfortably. Undergoing hemodialysis. Remains sedated and not responding to yes/no questions. Urine culture comes back with E.Coli ESBL. ID was consulted and patient has been started on IV invanz. ID recommending to repeat the UA and culture and will need to await repeat urine culture before DC to rehab. REVIEW OF SYSTEMS: CONSTITUTIONAL: No fever, no malaise, no fatigue. HEENT: No recent visual problems or hearing problems. Denied any sore throat. CARDIOVASCULAR: No chest pain, orthopnea, PND, no palpitations, no syncope. PULMONARY: No shortness of breath, no cough, no hemoptysis. GASTROINTESTINAL: No diarrhea, no nausea, no vomiting, no abdominal pain. NEUROLOGICAL: No headaches, no weakness, no numbness. PHYSICAL EXAMINATION: GENERAL: The patient is alert and oriented x1, not in any acute distress. Well developed, well nourished. HEENT: Pupils are round and equally reacting to light. EOMI. No scleral icterus. No conjunctival pallor. Normocephalic, atraumatic. No pharyngeal erythema. No thyromegaly. CARDIOVASCULAR: S1 and S2 present. No murmurs, rubs, or gallops. PULMONARY: Chest is clear to auscultation, no wheezing or crackles. ABDOMEN: Soft, nontender, nondistended, normoactive bowel sounds. No palpable organomegaly. MUSCULOSKELETAL: No joint swelling or deformity. EXTREMITIES: No cyanosis, clubbing, or pedal edema. NEUROLOGICAL: Gross neurological examination did not reveal any focal deficits. SKIN: No rashes. Assessment Altered mentation, multifactorial, metabolic encephalopathy possibly secondary to end-stage renal disease with possible underlying dementia Urinary tract infection, poa with ESBL E.Coli End-stage renal disease on hemodialysis Troponin leak likely from renal disease Transaminitis with cholecystectomy in the past Recent hospitalization for UTI treated with antibiotics although urine culture negative Oral thrush Diarrhea, negative C.Dif, likely secondary to antibiotic use Pulmonary fibrosis Lymphedema history Borderline hypotension History of polymyalgia rheumatica Generalized weakness with gait dysfunction Severe protein calorie malnutrition with a BMI of 21.9 GI prophylaxis DVT prophylaxis: Subcu heparin Full code Plan Consult nephrology for hemodialysis patient on MWF schedule Continue IV invanz for the ESBL E.Coli and ID recommending repeat urinalysis and urine culture Continue keppra Home medications have been reviewed and continue Hold gabapentin due to altered mentation No further work up per cardiology Monitor BMP CBC Continue to encourage small frequent meals Return to [facility] on discharge when medically stable The impression and plan of care has been dictated by Gosia Singer Nurse Practitioner as directed. Dr. Favian MD I have performed a history and physical examination and medical decision making of this patient, discussed the same with the dictator, and agree with the dictators assessment and plan as written, documented as a scribe. Based on total visit time, I have performed more than 50% of this visit. Objective - Vital Signs Vital signs: Vital Signs Temp 98.2 F 12/16/24 19:07 Pulse 86 12/16/24 19:07 Resp 15 12/16/24 19:07 BP 133/78 12/16/24 19:07 Pulse Ox 100 12/16/24 19:07 FiO2 Intake & Output 12/16/24 12/16/24 12/17/24 06:59 18:59 06:59 Intake Total 400 Output Total 400 Balance 0 Intake: Hemodialysis 400 Output: Hemodialysis 0 Hemodialysis Net Amount 400 Other: Voiding Method Diaper Diaper # Voids 2 1 - Labs CBC & Chem 7: 12/15/24 05:01 12/16/24 05:23 Labs: Abnormal Lab Results - Last 24 Hours (Table) 12/16/24 12/16/24 Range/Units 05:23 11:50 Carbon Dioxide 18.9 L (21.6-31.8) mmol/L Anion Gap 23.10 H (4.00-12.00) mmol/L BUN 47.8 H (9.0-27.0) mg/dL Creatinine 3.3 H (0.6-1.5) mg/dL Est GFR (CKD-EPI) 14 L (>=60) Total Bilirubin 0.2 L (0.3-1.2) mg/dL AST 281 H (13-35) U/L ALT 205 H (8-44) U/L Alkaline Phosphatase 189 H (41-126) U/L Albumin 3.6 L (3.8-4.9) g/dL Albumin/Globulin Ratio 1.33 L (1.60-3.17) Ratio Urine Appearance Turbid H (Clear) Urine Protein 1+ H (Negative) Urine Ketones 1+ H (Negative) Urine Blood Moderate H (Negative) Ur Leukocyte Esterase Large H (Negative) Urine RBC 21 H (0-5) /hpf Urine WBC >182 H (0-5) /hpf Urine WBC Clumps Many H (None) /hpf Urine Bacteria Many H (None) /hpf Hyaline Casts 56 H (0-2) /lpf Urine Mucus Many H (None) /hpf Urine Yeast (Budding) Many H (None) /hpf Microbiology - Last 24 Hours (Table) 12/13/24 10:36 Blood Culture - Preliminary Blood 12/13/24 09:54 Urine Culture - Preliminary Urine,Voided Escherichia coli ESBL Assessment and Plan Time with Patient: Less than 30
[2024-12-17 08:28] LABS: Basophils # (A) 0.08 X 10*3/uL (0.00-0.10); Basophils % (A) 1.0 %; Eosinophils # (A) 0.04 X 10*3/uL (0.04-0.35); Eosinophils % (A) 0.5 %; HCT 48.6 % (37.2-46.3); HGB 15.2 g/dL (12.0-15.0); Immature Grans, Automated 0.30 %; Lymphocytes # (A) 1.09 X 10*3/uL (0.90-5.00); Lymphocytes % (A) 13.7 %; MCH 32.1 pg (27.0-32.0); MCHC 31.3 g/dL (32.0-37.0); MCV 102.7 FL (80.0-97.0); Monocytes # (A) 0.87 X 10*3/uL (0.20-1.00); Monocytes % (A) 10.9 %; NRBC Per 100 WBC 0 X 10*3/uL (0.00-0.01); Neutrophils # (A) 5.87 X 10*3/uL (1.80-7.70); Neutrophils % (A) 73.6 %; Platelet Count 153 X 10*3/uL (140-440); RBC 4.73 X 10*6/uL (4.10-5.20); RDW 12.5 % (11.5-14.5); WBC 7.97 X 10*3/uL (4.50-10.00)
[2024-12-17 08:33] LABS: Anion Gap 23.00 mmol/L (4.00-12.00); BUN/Creat Ratio 10.00 Ratio (12.00-20.00); Blood Urea Nitrogen 26.0 mg/dL (9.0-27.0); Calcium 9.3 mg/dL (8.7-10.3); Carbon Dioxide 19.0 mmol/L (21.6-31.8); Chloride 92 mmol/L (96-109); Glucose 86 mg/dL (70-110); Potassium 4.5 mmol/L (3.5-5.5); Sodium 134 mmol/L (135-145)
--- NOTE | 2024-12-17 09:14 | US ---
EXAMINATION TYPE: US gallbladder DATE OF EXAM: 12/17/2024 COMPARISON: NONE CLINICAL INDICATION: Female, 79 years old with history of elevated LFTs TECHNIQUE: Grayscale and color Doppler imaging of the right upper quadrant was performed. FINDINGS: EXAM MEASUREMENTS: Liver Length: 15.9 cm Gallbladder Wall: Surgically absent CBD: obscured by overlying bowel gas Right Kidney: obscured by overlying bowel gas APICULTURIST NOTES: exam very limited due to overlying bowel gas and patient condition Pancreas: Obscured by bowel gas Liver: Limited detail parenchymal assessment. Gallbladder: Surgically absent CBD: Obscured by overlying bowel gas Right Kidney: Obscured by overlying bowel gas IMPRESSION: Suboptimal exam, largely nondiagnostic. Gallbladder surgically absent. Unable to adequately visualize the bile duct, pancreas, or right kidney or assess the liver parenchyma in detail. [facility], , 12/17/2024 9:12 AM
--- NOTE | 2024-12-17 11:15 | P.PN ---
Subjective Patient is seen in follow-up for end-stage renal disease. She is maintained on hemodialysis on Monday schedule. Resting in bed. Poor historian. Vital signs are stable. General: No acute distress. HEENT: Head exam is unremarkable. LUNGS: No audible rhonchi or wheezes. HEART: Rate and Rhythm are regular. ABDOMEN: Nontender. EXTREMITITES: Trace edema. Objective - Vital Signs Vital signs: Vital Signs Temp 98.5 F 12/17/24 07:00 Pulse 89 12/17/24 07:00 Resp 16 12/17/24 07:00 BP 142/87 12/17/24 07:00 Pulse Ox 96 12/17/24 08:06 FiO2 Intake & Output 12/16/24 12/17/24 12/17/24 18:59 06:59 18:59 Intake Total 400 Output Total 400 Balance 0 Weight 56.699 kg Intake: Hemodialysis 400 Output: Hemodialysis 0 Hemodialysis Net Amount 400 Other: Voiding Method Diaper # Voids 1 0 # Bowel Movements 0 - Labs CBC & Chem 7: 12/17/24 05:47 12/17/24 05:47 Labs: Abnormal Lab Results - Last 24 Hours (Table) 12/16/24 12/17/24 12/17/24 Range/Units 11:50 05:47 05:47 Hgb 15.2 H (12.0-15.0) g/dL Hct 48.6 H (37.2-46.3) % MCV 102.7 H (80.0-97.0) FL MCH 32.1 H (27.0-32.0) pg MCHC 31.3 L (32.0-37.0) g/dL Sodium 134 L (135-145) mmol/L Chloride 92 L (96-109) mmol/L Carbon Dioxide 19.0 L (21.6-31.8) mmol/L Anion Gap 23.00 H (4.00-12.00) mmol/L Creatinine 2.6 H (0.6-1.5) mg/dL Est GFR (CKD-EPI) 18 L (>=60) BUN/Creatinine Ratio 10.00 L (12.00-20.00) Ratio Urine Appearance Turbid H (Clear) Urine Protein 1+ H (Negative) Urine Ketones 1+ H (Negative) Urine Blood Moderate H (Negative) Ur Leukocyte Esterase Large H (Negative) Urine RBC 21 H (0-5) /hpf Urine WBC >182 H (0-5) /hpf Urine WBC Clumps Many H (None) /hpf Urine Bacteria Many H (None) /hpf Hyaline Casts 56 H (0-2) /lpf Urine Mucus Many H (None) /hpf Urine Yeast (Budding) Many H (None) /hpf Microbiology - Last 24 Hours (Table) 12/13/24 10:36 Blood Culture - Preliminary Blood Assessment and Plan Plan: Assessment: 1. End-stage renal disease maintained on hemodialysis on Monday schedule. 2. Recent UTI status posttreatment. Culture at this admission positive for ESBL. On antibiotics. 3. Altered mental status possibly from above. 4. Chronic kidney disease mineral bone disease maintained on PhosLo. 5. Chronic metabolic acidosis secondary to chronic kidney disease maintained on oral bicarb. Plan: Hemodialysis tomorrow. Prognosis guarded.
[2024-12-17 13:05] LABS: ALT 167 U/L (8-44); AST 165 U/L (13-35); Albumin 3.6 g/dL (3.8-4.9); Albumin/Globulin Ratio 1.38 Ratio (1.60-3.17); Alkaline Phosphatase 177 U/L (41-126); Bilirubin,Unconjugated >0 mg/dL (0.20-1.00); Globulin 2.6 g/dL (1.6-3.3); Total Protein 6.2 g/dL (6.2-8.2)
--- NOTE | 2024-12-17 16:17 | P.PN ---
Subjective Progress Note Date: 12/17/24 Principal diagnosis: Reason for follow-up is ESBL E. coli UTI Patient is a 79-year-old female with a past medical history significant for end-stage renal disease on hemodialysis patient still makes urine and has been brought into the hospital for evaluation of decreased level of responsive mental status change due to positive urine concerning for symptomatic UTI urine culture with ESBL E. coli prompting this consultation. On today's evaluation that is 12/17/2024, Patient is afebrile this morning patient is more awake alert today compared yesterday denies having any chest pain shortness of breath or cough, the patient is currently on room air, patient denies any abdominal pain no diarrhea no nausea no vomiting. Patient white count 7.97, creatinine is 2.6 repeat UA still positive blood culture negative Objective - Vital Signs Vital signs: Vital Signs Temp 98.2 F 12/17/24 14:36 Pulse 85 12/17/24 14:36 Resp 16 12/17/24 14:36 BP 120/81 12/17/24 14:36 Pulse Ox 98 12/17/24 14:36 FiO2 Intake & Output 12/16/24 12/17/24 12/17/24 18:59 06:59 18:59 Intake Total 400 Output Total 400 Balance 0 Weight 56.699 kg Intake: Hemodialysis 400 Output: Hemodialysis 0 Hemodialysis Net Amount 400 Other: Voiding Method Diaper Diaper # Voids 1 0 # Bowel Movements 0 - Exam GENERAL DESCRIPTION: An elderly female lying in bed in no distress RESPIRATORY SYSTEM: Unlabored breathing , decreased breath sounds at bases HEART: S1 S2 regular rate and rhythm , ABDOMEN: Soft , no tenderness EXTREMITIES: No edema feet - Labs CBC & Chem 7: 12/17/24 05:47 12/17/24 05:47 Labs: Abnormal Lab Results - Last 24 Hours (Table) 12/17/24 12/17/24 12/17/24 Range/Units 05:47 05:47 05:47 Hgb 15.2 H (12.0-15.0) g/dL Hct 48.6 H (37.2-46.3) % MCV 102.7 H (80.0-97.0) FL MCH 32.1 H (27.0-32.0) pg MCHC 31.3 L (32.0-37.0) g/dL Sodium 134 L (135-145) mmol/L Chloride 92 L (96-109) mmol/L Carbon Dioxide 19.0 L (21.6-31.8) mmol/L Anion Gap 23.00 H (4.00-12.00) mmol/L Creatinine 2.6 H (0.6-1.5) mg/dL Est GFR (CKD-EPI) 18 L (>=60) BUN/Creatinine Ratio 10.00 L (12.00-20.00) Ratio Total Bilirubin 0.2 L (0.3-1.2) mg/dL Unconjugated Bilirubin >0 L (0.20-1.00) mg/dL AST 165 H (13-35) U/L ALT 167 H (8-44) U/L Alkaline Phosphatase 177 H (41-126) U/L Albumin 3.6 L (3.8-4.9) g/dL Albumin/Globulin Ratio 1.38 L (1.60-3.17) Ratio Microbiology - Last 24 Hours (Table) 12/13/24 10:36 Blood Culture - Preliminary Blood Assessment and Plan (1) History of ESBL E. coli infection Current Visit: Yes Status: Acute Code(s): Z86.19 - PERSONAL HISTORY OF OTHER INFECTIOUS AND PARASITIC DISEASES SNOMED Code(s): 090076510 (2) Allergy to multiple antibiotics Current Visit: Yes Status: Acute Code(s): Z88.1 - ALLERGY STATUS TO OTHER ANTIBIOTIC AGENTS SNOMED Code(s): 217619534 (3) UTI (urinary tract infection) Current Visit: Yes Status: Acute Code(s): N39.0 - URINARY TRACT INFECTION, SITE NOT SPECIFIED SNOMED Code(s): 14938072 Plan: 1patient presented hospital with weakness lethargy with significant mental status changes patient did have a significantly positive UA with urine culture positive for ESBL E. coli did not respond to the Rocephin concerning for symptomatic UTI has no other obvious focus for her worsening mental status 2-patient repeat UA significantly positive some improvement clinically, we will continue Invanz 500 mg daily and monitor clinical course closely. Family bedside question answered Dictation was produced using [employer] dictation software. please excuse any grammatical, word or spelling errors. Time with Patient: Less than 30
--- NOTE | 2024-12-17 20:48 | P.PN ---
Subjective Progress Note Date: 12/17/24 Patient is an 79 year old female with medical history of pulmonary fibrosis, lymphedema, polymyalgia rheumatica, ESRD hemodialysis. Patient was discharged from the hospital yesterday to [facility]. Patient was discharged on 3 days of oral ceftin to complete course of antibiotics for urinary tract infection. Patient had full neurological work up during that admission' including MRI, EEG which was negative for CVA. EEG was abnormal showing some delay and slowed activity although no epileptiform discharges noted. Patient was started on keppra twice daily. Patient also having waxing and waning of mentation and there was concern for UTI was started on IV cefriaxone and patient continued to have waxing and waning of mentation appears to be dementia clinically. Patient was recommended to follow along with neurology outpatient. Patient was discharged to [facility] for rehabilitation. Returned from the facility with concern for altered mentation and unresponsiveness. Patient has been following simple commands and responding to yes/no questions. feels she has UTI although is still completing course of antibiotics for UTI. Of note her urine culture from 12/05/24 was final and negative as well as blood culture final and negative. Urinalysis on admission shows turbid urine, 1+ ketones, large blood, large leukocyte esterase, 169 RBC, >182 WBC, many bacteria, many yeast. Patient had elevated troponin 0.055, AST 65, ALT 45, alk phos 180. Bun of 63, creatinine 3.80. Nephrology will be consulted for management of hemodialysis. 12/14/2024 Patient evaluated in follow up on the medical. More awake and alert and tolerating some oral intake. Family educated on the importance of keeping the head of bed up while patient is drinking/eating to avoid aspiration. Oral thrush noted on examination. Patient continues on IV ceftriaxone currently and awaiting repeat urine culture. Patient concerned with possible tick bite. Although unable to find the area on patients leg on assessment. 12/15/2024 Patient evaluated today in follow up. More awake and alert. Per at the bedside she has also been more talkative. Continues on IV ceftriaxone and pending urine culture. Patient had hemodialysis. Her electrolytes and renal function are improved. 12/16/2024 Patient is evaluated today in follow up. Resting comfortably. Undergoing hemodialysis. Remains sedated and not responding to yes/no questions. Urine culture comes back with E.Coli ESBL. ID was consulted and patient has been started on IV invanz. ID recommending to repeat the UA and culture and will need to await repeat urine culture before DC to rehab. 12/17/2024 Patient is evaluated today in follow up. Family at bedside. Patient remains alert x 1 and minimally responsive to verbal questions. Has been started on IV invanz for the E.Coli ESBL UTI. Repeat UA remains abnormal with large leukocyte esterase, >182 WBC with many bacteria many yeast. REVIEW OF SYSTEMS: CONSTITUTIONAL: No fever, no malaise, no fatigue. HEENT: No recent visual problems or hearing problems. Denied any sore throat. CARDIOVASCULAR: No chest pain, orthopnea, PND, no palpitations, no syncope. PULMONARY: No shortness of breath, no cough, no hemoptysis. GASTROINTESTINAL: No diarrhea, no nausea, no vomiting, no abdominal pain. NEUROLOGICAL: No headaches, no weakness, no numbness. PHYSICAL EXAMINATION: GENERAL: The patient is alert and oriented x1, not in any acute distress. Well developed, well nourished. HEENT: Pupils are round and equally reacting to light. EOMI. No scleral icterus. No conjunctival pallor. Normocephalic, atraumatic. No pharyngeal erythema. No thyromegaly. CARDIOVASCULAR: S1 and S2 present. No murmurs, rubs, or gallops. PULMONARY: Chest is clear to auscultation, no wheezing or crackles. ABDOMEN: Soft, nontender, nondistended, normoactive bowel sounds. No palpable organomegaly. MUSCULOSKELETAL: No joint swelling or deformity. EXTREMITIES: No cyanosis, clubbing, or pedal edema. NEUROLOGICAL: Gross neurological examination did not reveal any focal deficits. SKIN: No rashes. Assessment Altered mentation, multifactorial, metabolic encephalopathy possibly secondary to end-stage renal disease with possible underlying dementia Urinary tract infection, poa with ESBL E.Coli End-stage renal disease on hemodialysis Troponin leak likely from renal disease Transaminitis with cholecystectomy in the past Recent hospitalization for UTI treated with antibiotics although urine culture negative Oral thrush Diarrhea, negative C.Dif, likely secondary to antibiotic use Pulmonary fibrosis Lymphedema history Borderline hypotension History of polymyalgia rheumatica Generalized weakness with gait dysfunction Severe protein calorie malnutrition with a BMI of 21.9 GI prophylaxis DVT prophylaxis: Subcu heparin Full code Plan Consult nephrology for hemodialysis patient on MWF schedule Continue IV invanz for the ESBL E.Coli and ID recommending repeat urinalysis and urine culture Continue keppra Home medications have been reviewed and continue Hold gabapentin due to altered mentation No further work up per cardiology Monitor BMP CBC Continue to encourage small frequent meals Return to [facility] on discharge when medically stable The impression and plan of care has been dictated by Gosia Singer Nurse Practitioner as directed. Dr. Favian MD I have performed a history and physical examination and medical decision making of this patient, discussed the same with the dictator, and agree with the dictators assessment and plan as written, documented as a scribe. Based on total visit time, I have performed more than 50% of this visit. Objective - Vital Signs Vital signs: Vital Signs Temp 98.1 F 12/17/24 19:06 Pulse 84 12/17/24 19:06 Resp 15 12/17/24 19:06 BP 99/67 12/17/24 19:06 Pulse Ox 94 L 12/17/24 19:06 FiO2 Intake & Output 12/17/24 12/17/24 12/18/24 06:59 18:59 06:59 Intake Total 0 Balance 0 Weight 56.699 kg Intake: Oral 0 Other: Voiding Method Diaper # Voids 0 1 # Bowel Movements 0 - Labs CBC & Chem 7: 12/17/24 05:47 12/17/24 05:47 Labs: Abnormal Lab Results - Last 24 Hours (Table) 12/17/24 12/17/24 12/17/24 Range/Units 05:47 05:47 05:47 Hgb 15.2 H (12.0-15.0) g/dL Hct 48.6 H (37.2-46.3) % MCV 102.7 H (80.0-97.0) FL MCH 32.1 H (27.0-32.0) pg MCHC 31.3 L (32.0-37.0) g/dL Sodium 134 L (135-145) mmol/L Chloride 92 L (96-109) mmol/L Carbon Dioxide 19.0 L (21.6-31.8) mmol/L Anion Gap 23.00 H (4.00-12.00) mmol/L Creatinine 2.6 H (0.6-1.5) mg/dL Est GFR (CKD-EPI) 18 L (>=60) BUN/Creatinine Ratio 10.00 L (12.00-20.00) Ratio Total Bilirubin 0.2 L (0.3-1.2) mg/dL Unconjugated Bilirubin >0 L (0.20-1.00) mg/dL AST 165 H (13-35) U/L ALT 167 H (8-44) U/L Alkaline Phosphatase 177 H (41-126) U/L Albumin 3.6 L (3.8-4.9) g/dL Albumin/Globulin Ratio 1.38 L (1.60-3.17) Ratio Microbiology - Last 24 Hours (Table) 12/13/24 10:36 Blood Culture - Preliminary Blood Assessment and Plan Time with Patient: Less than 30
--- NOTE | 2024-12-18 10:43 | P.PN ---
Subjective Patient is seen in follow-up for end-stage renal disease. She is maintained on hemodialysis on Monday schedule. Resting in bed. Poor historian. No improvement in mentation. Vital signs are stable. General: No acute distress. HEENT: Head exam is unremarkable. LUNGS: No audible rhonchi or wheezes. HEART: Rate and Rhythm are regular. ABDOMEN: Nontender. EXTREMITITES: Trace edema. Objective - Vital Signs Vital signs: Vital Signs Temp 97.6 F 12/18/24 07:21 Pulse 80 12/18/24 07:21 Resp 17 12/18/24 07:21 BP 122/76 12/18/24 07:21 Pulse Ox 98 12/18/24 08:29 FiO2 Intake & Output 12/17/24 12/18/24 12/18/24 18:59 06:59 18:59 Intake Total 0 0 Balance 0 0 Weight 56.699 kg Intake: Oral 0 0 Other: Voiding Method Diaper Diaper Diaper # Voids 1 1 # Bowel Movements 0 - Labs CBC & Chem 7: 12/17/24 05:47 12/17/24 05:47 Labs: Abnormal Lab Results - Last 24 Hours (Table) 12/17/24 Range/Units 05:47 Total Bilirubin 0.2 L (0.3-1.2) mg/dL Unconjugated Bilirubin >0 L (0.20-1.00) mg/dL AST 165 H (13-35) U/L ALT 167 H (8-44) U/L Alkaline Phosphatase 177 H (41-126) U/L Albumin 3.6 L (3.8-4.9) g/dL Albumin/Globulin Ratio 1.38 L (1.60-3.17) Ratio Microbiology - Last 24 Hours (Table) 12/16/24 11:50 Urine Culture - Preliminary Urine,Catheterized 12/13/24 09:54 Urine Culture - Final Urine,Voided Escherichia coli ESBL Enterococcus faecium Assessment and Plan Plan: Assessment: 1. End-stage renal disease maintained on hemodialysis on Monday schedule. 2. Recent UTI status posttreatment. Culture at this admission positive for ESBL. On antibiotics. 3. Altered mental status possibly from above. 4. Chronic kidney disease mineral bone disease maintained on PhosLo. 5. Chronic metabolic acidosis secondary to chronic kidney disease maintained on oral bicarb. Plan: Hemodialysis today. Prognosis guarded.
--- NOTE | 2024-12-18 15:53 | P.PN ---
Subjective Progress Note Date: 12/18/24 Patient is an 79 year old female with medical history of pulmonary fibrosis, lymphedema, polymyalgia rheumatica, ESRD hemodialysis. Patient was discharged from the hospital yesterday to [facility]. Patient was discharged on 3 days of oral ceftin to complete course of antibiotics for urinary tract infection. Patient had full neurological work up during that admission' including MRI, EEG which was negative for CVA. EEG was abnormal showing some delay and slowed activity although no epileptiform discharges noted. Patient was started on keppra twice daily. Patient also having waxing and waning of mentation and there was concern for UTI was started on IV cefriaxone and patient continued to have waxing and waning of mentation appears to be dementia clinically. Patient was recommended to follow along with neurology outpatient. Patient was discharged to [facility] for rehabilitation. Returned from the facility with concern for altered mentation and unresponsiveness. Patient has been following simple commands and responding to yes/no questions. feels she has UTI although is still completing course of antibiotics for UTI. Of note her urine culture from 12/05/24 was final and negative as well as blood culture final and negative. Urinalysis on admission shows turbid urine, 1+ ketones, large blood, large leukocyte esterase, 169 RBC, >182 WBC, many bacteria, many yeast. Patient had elevated troponin 0.055, AST 65, ALT 45, alk phos 180. Bun of 63, creatinine 3.80. Nephrology will be consulted for management of hemodialysis. 12/14/2024 Patient evaluated in follow up on the medical. More awake and alert and tolerating some oral intake. Family educated on the importance of keeping the head of bed up while patient is drinking/eating to avoid aspiration. Oral thrush noted on examination. Patient continues on IV ceftriaxone currently and awaiting repeat urine culture. Patient concerned with possible tick bite. Although unable to find the area on patients leg on assessment. 12/15/2024 Patient evaluated today in follow up. More awake and alert. Per at the bedside she has also been more talkative. Continues on IV ceftriaxone and pending urine culture. Patient had hemodialysis. Her electrolytes and renal function are improved. 12/16/2024 Patient is evaluated today in follow up. Resting comfortably. Undergoing hemodialysis. Remains sedated and not responding to yes/no questions. Urine culture comes back with E.Coli ESBL. ID was consulted and patient has been started on IV invanz. ID recommending to repeat the UA and culture and will need to await repeat urine culture before DC to rehab. 12/17/2024 Patient is evaluated today in follow up. Family at bedside. Patient remains alert x 1 and minimally responsive to verbal questions. Has been started on IV invanz for the E.Coli ESBL UTI. Repeat UA remains abnormal with large leukocyte esterase, >182 WBC with many bacteria many yeast. 12/18/2024 Patient evaluated today in follow up on the medical floor. Patient undergoing hemodialysis. Patient more awake alert and less lethargic. Still not wanting to eat. Continues on the IV invanz. REVIEW OF SYSTEMS: CONSTITUTIONAL: No fever, no malaise, no fatigue. HEENT: No recent visual problems or hearing problems. Denied any sore throat. CARDIOVASCULAR: No chest pain, orthopnea, PND, no palpitations, no syncope. PULMONARY: No shortness of breath, no cough, no hemoptysis. GASTROINTESTINAL: No diarrhea, no nausea, no vomiting, no abdominal pain. NEUROLOGICAL: No headaches, no weakness, no numbness. PHYSICAL EXAMINATION: GENERAL: The patient is alert and oriented x1, not in any acute distress. Well developed, well nourished. HEENT: Pupils are round and equally reacting to light. EOMI. No scleral icterus. No conjunctival pallor. Normocephalic, atraumatic. No pharyngeal erythema. No thyromegaly. CARDIOVASCULAR: S1 and S2 present. No murmurs, rubs, or gallops. PULMONARY: Chest is clear to auscultation, no wheezing or crackles. ABDOMEN: Soft, nontender, nondistended, normoactive bowel sounds. No palpable organomegaly. MUSCULOSKELETAL: No joint swelling or deformity. EXTREMITIES: No cyanosis, clubbing, or pedal edema. NEUROLOGICAL: Gross neurological examination did not reveal any focal deficits. SKIN: No rashes. Assessment Altered mentation, multifactorial, metabolic encephalopathy possibly secondary to end-stage renal disease with possible underlying dementia Urinary tract infection, poa with ESBL E.Coli End-stage renal disease on hemodialysis Troponin leak likely from renal disease Transaminitis with cholecystectomy in the past Recent hospitalization for UTI treated with antibiotics although urine culture negative Oral thrush Diarrhea, negative C.Dif, likely secondary to antibiotic use Pulmonary fibrosis Lymphedema history Borderline hypotension History of polymyalgia rheumatica Generalized weakness with gait dysfunction Severe protein calorie malnutrition with a BMI of 21.9 GI prophylaxis DVT prophylaxis: Subcu heparin Full code Plan Consult nephrology for hemodialysis patient on MWF schedule Continue IV invanz for the ESBL E.Coli and ID recommending repeat urinalysis and urine culture Continue keppra Home medications have been reviewed and continue Hold gabapentin due to altered mentation Add dronabinol for appetite stimulant No further work up per cardiology Monitor BMP CBC Continue to encourage small frequent meals Return to [facility] when stable possibly in the next 24 hours The impression and plan of care has been dictated by Gosia Singer, Nurse Practitioner as directed. Dr. Favian MD I have performed a history and physical examination and medical decision making of this patient, discussed the same with the dictator, and agree with the dictators assessment and plan as written, documented as a scribe. Based on total visit time, I have performed more than 50% of this visit. Objective - Vital Signs Vital signs: Vital Signs Temp 97.0 F L 12/18/24 13:12 Pulse 67 12/18/24 13:12 Resp 17 12/18/24 13:12 BP 120/74 12/18/24 13:12 Pulse Ox 100 12/18/24 13:12 FiO2 Intake & Output 12/17/24 12/18/24 12/18/24 18:59 06:59 18:59 Intake Total 0 0 500 Output Total 500 Balance 0 0 0 Weight 56.699 kg Intake: Oral 0 0 Hemodialysis 500 Output: Hemodialysis 500 Hemodialysis Net Amount 0 Other: Voiding Method Diaper Diaper Diaper # Voids 1 1 # Bowel Movements 0 - Labs CBC & Chem 7: 12/17/24 05:47 12/17/24 05:47 Labs: Microbiology - Last 24 Hours (Table) 12/16/24 11:50 Urine Culture - Preliminary Urine,Catheterized 12/13/24 09:54 Urine Culture - Final Urine,Voided Escherichia coli ESBL Enterococcus faecium Assessment and Plan Time with Patient: Less than 30
[2024-12-18] MEDS: CALCIUM CARBONATE 500 MG CHEWABLE PO PRN (18:43)
--- NOTE | 2024-12-19 08:23 | P.PN ---
Subjective Progress Note Date: 12/18/24 Principal diagnosis: Reason for follow-up is ESBL E. coli UTI Patient is a 79-year-old female with a past medical history significant for end-stage renal disease on hemodialysis patient still makes urine and has been brought into the hospital for evaluation of decreased level of responsive mental status change due to positive urine concerning for symptomatic UTI urine culture with ESBL E. coli prompting this consultation. On today's evaluation that is 12/18/2024,the patient continues to be afebrile seem to be more lethargic today as reported by the family and did not answer any questions she is awake though no vomiting or diarrhea has been reported currently on 2 L nasal cannula oxygen. No lab data today repeat urine cultures pending Objective - Vital Signs Vital signs: Vital Signs Temp 97.5 F L 12/18/24 18:58 Pulse 73 12/18/24 18:58 Resp 16 12/18/24 18:58 BP 116/73 12/18/24 18:58 Pulse Ox 98 12/18/24 18:58 FiO2 Intake & Output 12/18/24 12/18/24 12/19/24 06:59 18:59 06:59 Intake Total 0 500 Output Total 500 Balance 0 0 Intake: Oral 0 Hemodialysis 500 Output: Hemodialysis 500 Hemodialysis Net Amount 0 Other: Voiding Method Diaper Diaper # Voids 1 # Bowel Movements 0 - Exam GENERAL DESCRIPTION: An elderly female lying in bed in no distress RESPIRATORY SYSTEM: Unlabored breathing , decreased breath sounds at bases HEART: S1 S2 regular rate and rhythm , ABDOMEN: Soft , no tenderness EXTREMITIES: No edema feet - Labs CBC & Chem 7: 12/17/24 05:47 12/17/24 05:47 Labs: Microbiology - Last 24 Hours (Table) 12/13/24 10:36 Blood Culture - Final Blood 12/16/24 11:50 Urine Culture - Preliminary Urine,Catheterized 12/13/24 09:54 Urine Culture - Final Urine,Voided Escherichia coli ESBL Enterococcus faecium Assessment and Plan (1) History of ESBL E. coli infection Current Visit: Yes Status: Acute Code(s): Z86.19 - PERSONAL HISTORY OF OTHER INFECTIOUS AND PARASITIC DISEASES SNOMED Code(s): 828489062 (2) Allergy to multiple antibiotics Current Visit: Yes Status: Acute Code(s): Z88.1 - ALLERGY STATUS TO OTHER ANTIBIOTIC AGENTS SNOMED Code(s): 848840575 (3) UTI (urinary tract infection) Current Visit: Yes Status: Acute Code(s): N39.0 - URINARY TRACT INFECTION, SITE NOT SPECIFIED SNOMED Code(s): 66155661 Plan: 1patient presented hospital with weakness lethargy with significant mental status changes patient did have a significantly positive UA with urine culture positive for ESBL E. coli did not respond to the Rocephin concerning for symptomatic UTI has no other obvious focus for her worsening mental status 2-patient repeat UA significantly positive with the cultures are currently pending, patient did have some improvement clinically yesterday but more lethargic today, 3we will continue Invanz 500 mg daily and monitor clinical course closely. Family bedside question answered Dictation was produced using [employer] dictation software. please excuse any grammatical, word or spelling errors. Time with Patient: Less than 30
--- NOTE | 2024-12-19 11:50 | P.PN ---
Subjective Patient is seen in follow-up for end-stage renal disease. She is maintained on hemodialysis on Monday schedule. Resting in bed. No problems with dialysis yesterday. Mentation better. Vital signs are stable. General: No acute distress. HEENT: Head exam is unremarkable. LUNGS: No audible rhonchi or wheezes. HEART: Rate and Rhythm are regular. ABDOMEN: Nontender. EXTREMITITES: Trace edema. Objective - Vital Signs Vital signs: Vital Signs Temp 97.6 F 12/19/24 07:55 Pulse 67 12/19/24 07:55 Resp 16 12/19/24 07:55 BP 94/62 12/19/24 07:55 Pulse Ox 99 12/19/24 07:55 FiO2 Intake & Output 12/18/24 12/19/24 12/19/24 18:59 06:59 18:59 Intake Total 500 Output Total 500 Balance 0 Intake: Hemodialysis 500 Output: Hemodialysis 500 Hemodialysis Net Amount 0 Other: Voiding Method Diaper Diaper Diaper # Voids 0 # Bowel Movements 0 - Labs CBC & Chem 7: 12/17/24 05:47 12/17/24 05:47 Labs: Microbiology - Last 24 Hours (Table) 12/13/24 10:36 Blood Culture - Final Blood 12/16/24 11:50 Urine Culture - Preliminary Urine,Catheterized Assessment and Plan Plan: Assessment: 1. End-stage renal disease maintained on hemodialysis on Monday schedule. 2. Recent UTI status posttreatment. Culture at this admission positive for ESBL. On antibiotics. 3. Altered mental status possibly from above. 4. Chronic kidney disease mineral bone disease maintained on PhosLo. 5. Chronic metabolic acidosis secondary to chronic kidney disease maintained on oral bicarb. Plan: Hemodialysis tomorrow. Prognosis guarded. Check phosphorus level.
--- NOTE | 2024-12-19 13:39 | P.PN ---
Subjective Progress Note Date: 12/19/24 Patient is an 79 year old female with medical history of pulmonary fibrosis, lymphedema, polymyalgia rheumatica, ESRD hemodialysis. Patient was discharged from the hospital yesterday to [facility]. Patient was discharged on 3 days of oral ceftin to complete course of antibiotics for urinary tract infection. Patient had full neurological work up during that admission' including MRI, EEG which was negative for CVA. EEG was abnormal showing some delay and slowed activity although no epileptiform discharges noted. Patient was started on keppra twice daily. Patient also having waxing and waning of mentation and there was concern for UTI was started on IV cefriaxone and patient continued to have waxing and waning of mentation appears to be dementia clinically. Patient was recommended to follow along with neurology outpatient. Patient was discharged to [facility] for rehabilitation. Returned from the facility with concern for altered mentation and unresponsiveness. Patient has been following simple commands and responding to yes/no questions. feels she has UTI although is still completing course of antibiotics for UTI. Of note her urine culture from 12/05/24 was final and negative as well as blood culture final and negative. Urinalysis on admission shows turbid urine, 1+ ketones, large blood, large leukocyte esterase, 169 RBC, >182 WBC, many bacteria, many yeast. Patient had elevated troponin 0.055, AST 65, ALT 45, alk phos 180. Bun of 63, creatinine 3.80. Nephrology will be consulted for management of hemodialysis. 12/14/2024 Patient evaluated in follow up on the medical. More awake and alert and tolerating some oral intake. Family educated on the importance of keeping the head of bed up while patient is drinking/eating to avoid aspiration. Oral thrush noted on examination. Patient continues on IV ceftriaxone currently and awaiting repeat urine culture. Patient concerned with possible tick bite. Although unable to find the area on patients leg on assessment. 12/15/2024 Patient evaluated today in follow up. More awake and alert. Per at the bedside she has also been more talkative. Continues on IV ceftriaxone and pending urine culture. Patient had hemodialysis. Her electrolytes and renal function are improved. 12/16/2024 Patient is evaluated today in follow up. Resting comfortably. Undergoing hemodialysis. Remains sedated and not responding to yes/no questions. Urine culture comes back with E.Coli ESBL. ID was consulted and patient has been started on IV invanz. ID recommending to repeat the UA and culture and will need to await repeat urine culture before DC to rehab. 12/17/2024 Patient is evaluated today in follow up. Family at bedside. Patient remains alert x 1 and minimally responsive to verbal questions. Has been started on IV invanz for the E.Coli ESBL UTI. Repeat UA remains abnormal with large leukocyte esterase, >182 WBC with many bacteria many yeast. 12/18/2024 Patient evaluated today in follow up on the medical floor. Patient undergoing hemodialysis. Patient more awake alert and less lethargic. Still not wanting to eat. Continues on the IV invanz. 12/19/2024 Patient is eval today in follow-up in the medical floor. She is more awake alert and oriented she is able to talk in short sentences. She was started on dronabinol daily for appetite stimulant she did have a couple bites of breakfast which is more than she had been doing. She seems at lethargic later in the afternoon after being up walking with visitors. states that the most activity that she has had in the last couple days is only sitting up at the edge of the bed. He is hoping that she could get up into the chair at some point as she has been up ambulating prior to the last 2 hospital stays. Long-term goals would be for subacute rehabilitation as patient's functionality was quite good prior to this hospital stay. She continues on IV Invanz for the ESBL UTI with plans for 10 days of IV Invanz on discharge REVIEW OF SYSTEMS: CONSTITUTIONAL: No fever, no malaise, no fatigue. HEENT: No recent visual problems or hearing problems. Denied any sore throat. CARDIOVASCULAR: No chest pain, orthopnea, PND, no palpitations, no syncope. PULMONARY: No shortness of breath, no cough, no hemoptysis. GASTROINTESTINAL: No diarrhea, no nausea, no vomiting, no abdominal pain. NEUROLOGICAL: No headaches, no weakness, no numbness. PHYSICAL EXAMINATION: GENERAL: The patient is alert and oriented x1, not in any acute distress. Well developed, well nourished. HEENT: Pupils are round and equally reacting to light. EOMI. No scleral icterus. No conjunctival pallor. Normocephalic, atraumatic. No pharyngeal erythema. No thyromegaly. CARDIOVASCULAR: S1 and S2 present. No murmurs, rubs, or gallops. PULMONARY: Chest is clear to auscultation, no wheezing or crackles. ABDOMEN: Soft, nontender, nondistended, normoactive bowel sounds. No palpable organomegaly. MUSCULOSKELETAL: No joint swelling or deformity. EXTREMITIES: No cyanosis, clubbing, or pedal edema. NEUROLOGICAL: Gross neurological examination did not reveal any focal deficits. SKIN: No rashes. Assessment Altered mentation, multifactorial, metabolic encephalopathy possibly secondary to end-stage renal disease with possible underlying dementia Urinary tract infection, poa with ESBL E.Coli End-stage renal disease on hemodialysis Troponin leak likely from renal disease Transaminitis with cholecystectomy in the past Recent hospitalization for UTI treated with antibiotics although urine culture negative Oral thrush Diarrhea, negative C.Dif, likely secondary to antibiotic use Pulmonary fibrosis Lymphedema history Borderline hypotension History of polymyalgia rheumatica Generalized weakness with gait dysfunction Severe protein calorie malnutrition with a BMI of 21.9 GI prophylaxis DVT prophylaxis: Subcu heparin Full code Plan Consult nephrology for hemodialysis patient on MWF schedule Continue IV invanz for the ESBL E.Coli ID following and pending discharge antibiotic recommendations Continue keppra Home medications have been reviewed and continue Hold gabapentin due to altered mentation Add dronabinol for appetite stimulant No further work up per cardiology Monitor BMP CBC Continue to encourage small frequent meals Return to [facility] when stable The impression and plan of care has been dictated by Nurse Deirdre Pra ctitioner as directed. Dr. Favian MD I have performed a history and physical examination and medical decision making of this patient, discussed the same with the dictator, and agree with the dictat ors assessment and plan as written, documented as a scribe. Based on total visit time, I have performed more than 50% of this visit. Objective - Vital Signs Vital signs: Vital Signs Temp 97.6 F 12/19/24 07:55 Pulse 67 12/19/24 07:55 Resp 16 12/19/24 07:55 BP 94/62 12/19/24 07:55 Pulse Ox 99 12/19/24 07:55 FiO2 Intake & Output 12/18/24 12/19/24 12/19/24 18:59 06:59 18:59 Intake Total 500 Output Total 500 Balance 0 Intake: Hemodialysis 500 Output: Hemodialysis 500 Hemodialysis Net Amount 0 Other: Voiding Method Diaper Diaper Diaper # Voids 0 # Bowel Movements 0 - Labs CBC & Chem 7: 12/17/24 05:47 12/17/24 05:47 Labs: Microbiology - Last 24 Hours (Table) 12/13/24 10:36 Blood Culture - Final Blood Assessment and Plan Time with Patient: Less than 30
[2024-12-19] MEDS ORDERED: VANCOMYCIN IV PER PHARMACY 1 EACH MISC MISCELLANE PRN (16:49)
[2024-12-19] MEDS: VANCOMYCIN 1,000 MG in SODIUM CHLORIDE 0.9% 250 ML IVPB ONE (17:47)
[2024-12-20] MEDS: VANCOMYCIN 1,000 MG in SODIUM CHLORIDE 0.9% 250 ML IVPB ONE (06:26)
[2024-12-20 10:19] LABS: Basophils # (A) 0.08 X 10*3/uL (0.00-0.10); Basophils % (A) 1.9 %; Eosinophils # (A) 0.21 X 10*3/uL (0.04-0.35); Eosinophils % (A) 5.0 %; HCT 46.0 % (37.2-46.3); HGB 14.3 g/dL (12.0-15.0); Immature Grans, Automated 0.20 %; Lymphocytes # (A) 0.98 X 10*3/uL (0.90-5.00); Lymphocytes % (A) 23.4 %; MCH 32.0 pg (27.0-32.0); MCHC 31.1 g/dL (32.0-37.0); MCV 102.9 FL (80.0-97.0); Monocytes # (A) 0.55 X 10*3/uL (0.20-1.00); Monocytes % (A) 13.2 %; NRBC Per 100 WBC 0 X 10*3/uL (0.00-0.01); Neutrophils # (A) 2.35 X 10*3/uL (1.80-7.70); Neutrophils % (A) 56.3 %; Platelet Count 116 X 10*3/uL (140-440); RBC 4.47 X 10*6/uL (4.10-5.20); RDW 12.5 % (11.5-14.5); WBC 4.18 X 10*3/uL (4.50-10.00)
[2024-12-20 10:33] LABS: Anion Gap 15.30 mmol/L (4.00-12.00); BUN/Creat Ratio 10.11 Ratio (12.00-20.00); Blood Urea Nitrogen 35.4 mg/dL (9.0-27.0); Calcium 9.3 mg/dL (8.7-10.3); Carbon Dioxide 23.7 mmol/L (21.6-31.8); Chloride 97 mmol/L (96-109); Glucose 95 mg/dL (70-110); Potassium 4.1 mmol/L (3.5-5.5); Sodium 136 mmol/L (135-145)
--- NOTE | 2024-12-20 11:11 | P.PN ---
Subjective Patient is seen in follow-up for end-stage renal disease. She is maintained on hemodialysis on Monday schedule. Tolerating dialysis well. Hemodynamically stable. Mentation better. Daughter present at bedside. Vital signs are stable. General: No acute distress. HEENT: Head exam is unremarkable. LUNGS: No audible rhonchi or wheezes. HEART: Rate and Rhythm are regular. ABDOMEN: Nontender. EXTREMITITES: Trace edema. Objective - Vital Signs Vital signs: Vital Signs Temp 97.8 F 12/20/24 07:37 Pulse 63 12/20/24 07:37 Resp 14 12/20/24 08:01 BP 123/83 12/20/24 07:37 Pulse Ox 97 12/20/24 07:37 FiO2 Intake & Output 12/19/24 12/20/24 12/20/24 18:59 06:59 18:59 Intake Total 30 Balance 30 Weight 56.699 kg Intake: Oral 30 Other: Voiding Method Diaper Diaper Diaper # Voids 1 - Labs CBC & Chem 7: 12/20/24 06:22 12/20/24 06:22 Labs: Abnormal Lab Results - Last 24 Hours (Table) 12/20/24 12/20/24 Range/Units 06:22 06:22 WBC 4.18 L (4.50-10.00) X 10*3/uL MCV 102.9 H (80.0-97.0) FL MCHC 31.1 L (32.0-37.0) g/dL Plt Count 116 L (140-440) X 10*3/uL Anion Gap 15.30 H (4.00-12.00) mmol/L BUN 35.4 H (9.0-27.0) mg/dL Creatinine 3.5 H (0.6-1.5) mg/dL Est GFR (CKD-EPI) 13 L (>=60) BUN/Creatinine Ratio 10.11 L (12.00-20.00) Ratio Microbiology - Last 24 Hours (Table) 12/16/24 11:50 Urine Culture - Final Urine,Catheterized Assessment and Plan Plan: Assessment: 1. End-stage renal disease maintained on hemodialysis on Monday schedule. 2. Recent UTI status posttreatment. Culture at this admission positive for ESBL. On antibiotics. 3. Altered mental status possibly from above. 4. Chronic kidney disease mineral bone disease maintained on PhosLo. Phosphorus level 5.1 dated December 19, 2024. 5. Chronic metabolic acidosis secondary to chronic kidney disease maintained on oral bicarb. Plan: Currently seen while undergoing hemodialysis. Next treatment Monday.
[2024-12-20 13:01] VITALS: PULSE 60; RESP 18; TEMP 97.4
--- NOTE | 2024-12-20 13:23 | P.PN ---
Subjective Progress Note Date: 12/19/24 Principal diagnosis: Reason for follow-up is ESBL E. coli UTI Patient is a 79-year-old female with a past medical history significant for end-stage renal disease on hemodialysis patient still makes urine and has been brought into the hospital for evaluation of decreased level of responsive mental status change due to positive urine concerning for symptomatic UTI urine culture with ESBL E. coli prompting this consultation. On today's evaluation that is 12/19/2024,the patient remains to be afebrile, patient is on 2 L nasal cannula supplemental oxygen and patient seem to be slightly sleepy today no vomiting diarrhea or any other changes reported by the family at the bedside Patient white count 7.97, creatinine is 2.6 urine culturealso showing Enterococcus faecium sensitive to vancomycin Objective - Vital Signs Vital signs: Vital Signs Temp 98.1 F 12/19/24 14:00 Pulse 58 L 12/19/24 14:00 Resp 16 12/19/24 14:00 BP 164/92 12/19/24 14:00 Pulse Ox 98 12/19/24 14:00 FiO2 Intake & Output 12/18/24 12/19/24 12/19/24 18:59 06:59 18:59 Intake Total 500 30 Output Total 500 Balance 0 30 Weight 56.699 kg Intake: Oral 30 Hemodialysis 500 Output: Hemodialysis 500 Hemodialysis Net Amount 0 Other: Voiding Method Diaper Diaper Diaper # Voids 0 # Bowel Movements 0 - Exam GENERAL DESCRIPTION: An elderly female lying in bed in no distress RESPIRATORY SYSTEM: Unlabored breathing , decreased breath sounds at bases HEART: S1 S2 regular rate and rhythm , ABDOMEN: Soft , no tenderness EXTREMITIES: No edema feet - Labs CBC & Chem 7: 12/20/24 06:22 12/20/24 06:22 Labs: Microbiology - Last 24 Hours (Table) 12/13/24 10:36 Blood Culture - Final Blood Assessment and Plan (1) History of ESBL E. coli infection Current Visit: Yes Status: Acute Code(s): Z86.19 - PERSONAL HISTORY OF OTHER INFECTIOUS AND PARASITIC DISEASES SNOMED Code(s): 939184488 (2) Allergy to multiple antibiotics Current Visit: Yes Status: Acute Code(s): Z88.1 - ALLERGY STATUS TO OTHER ANTIBIOTIC AGENTS SNOMED Code(s): 478457530 (3) UTI (urinary tract infection) Current Visit: Yes Status: Acute Code(s): N39.0 - URINARY TRACT INFECTION, SITE NOT SPECIFIED SNOMED Code(s): 97433147 Plan: 1patient presented hospital with weakness lethargy with significant mental status changes patient did have a significantly positive UA with urine culture positive for ESBL E. coli did not respond to the Rocephin concerning for symptomatic UTI has no other obvious focus for her worsening mental status 2-patient repeat UA significantly positive with the cultures are currently pending, 3urine culture has been updated with Enterococcus faecium vancomycin sensitive vancomycin pharmacy to dose has been added to continue along with Invanz Dictation was produced using [employer] dictation software. please excuse any grammatical, word or spelling errors.
--- NOTE | 2024-12-20 13:23 | US ---
EXAMINATION TYPE: US kidneys/renal and bladder DATE OF EXAM: 12/20/2024 COMPARISON: NONE CLINICAL INDICATION: Female, 79 years old with history of PRIYANKA, renal failure TECHNIQUE: Grayscale imaging of the bilateral kidneys and urinary bladder: FINDINGS: EXAM MEASUREMENTS: Right Kidney: 8.0 x 3.3 x 4.2 cm Left Kidney: 7.0 x 3.3 x 2.9 cm *Limitations due to large amount of overlying bowel gas Right Kidney: limited evaluation. Possible cystic lesion at the lower pole measuring 1.7 cm. This is poorly characterized. There could be artifact or internal echoes/debris. Left Kidney: limited evaluation. No obvious hydronephrosis. Bladder: Left posterior mural based soft tissue appearing nodularity measuring 1.8 x 1.1 x 1.7cm Bilateral Jets seen: no IMPRESSION: 1. Very limited evaluation due to extensive overlying bowel gas. No obvious hydronephrosis. 2. Lower pole lesion, possible cyst in the right kidney measuring 1.7 cm. Recommend follow-up ultraso und in 3 months to reassess. This could be a solid area or internal echoes could represent artifact/d ebris within a cyst. 3. Mural soft tissue left posterior bladder wall measuring 1.8 cm. Correlate with urinalysis and urin e cytology. Urothelial carcinoma remains to be excluded. [facility], , 12/20/2024 1:21 PM
--- NOTE | 2024-12-20 13:25 | P.PN ---
Subjective Progress Note Date: 12/20/24 Principal diagnosis: Reason for follow-up is ESBL E. coli UTI Patient is a 79-year-old female with a past medical history significant for end-stage renal disease on hemodialysis patient still makes urine and has been brought into the hospital for evaluation of decreased level of responsive mental status change due to positive urine concerning for symptomatic UTI urine culture with ESBL E. coli prompting this consultation. On today's evaluation that is 12/20/2024 patient continues to be afebrile the patient is breathing comfortably currently on a 2 L nasal cannula oxygen no chest pain shortness with or cough no abdominal pain and no diarrhea has been reported. Patient white count is 4.18, creatinine 3.5 Objective - Vital Signs Vital signs: Vital Signs Temp 97.4 F L 12/20/24 12:58 Pulse 60 12/20/24 12:58 Resp 18 12/20/24 12:58 BP 151/95 12/20/24 12:58 Pulse Ox 97 12/20/24 07:37 FiO2 Intake & Output 12/19/24 12/20/24 12/20/24 18:59 06:59 18:59 Intake Total 30 500 Output Total 500 Balance 30 0 Weight 56.699 kg Intake: Oral 30 Hemodialysis 500 Output: Hemodialysis 500 Hemodialysis Net Amount 0 Other: Voiding Method Diaper Diaper Diaper # Voids 1 - Exam GENERAL DESCRIPTION: An elderly female lying in bed in no distress RESPIRATORY SYSTEM: Unlabored breathing , decreased breath sounds at bases HEART: S1 S2 regular rate and rhythm , ABDOMEN: Soft , no tenderness EXTREMITIES: No edema feet - Labs CBC & Chem 7: 12/20/24 06:22 12/20/24 06:22 Labs: Abnormal Lab Results - Last 24 Hours (Table) 12/20/24 12/20/24 Range/Units 06:22 06:22 WBC 4.18 L (4.50-10.00) X 10*3/uL MCV 102.9 H (80.0-97.0) FL MCHC 31.1 L (32.0-37.0) g/dL Plt Count 116 L (140-440) X 10*3/uL Anion Gap 15.30 H (4.00-12.00) mmol/L BUN 35.4 H (9.0-27.0) mg/dL Creatinine 3.5 H (0.6-1.5) mg/dL Est GFR (CKD-EPI) 13 L (>=60) BUN/Creatinine Ratio 10.11 L (12.00-20.00) Ratio Microbiology - Last 24 Hours (Table) 12/16/24 11:50 Urine Culture - Final Urine,Catheterized Assessment and Plan (1) History of ESBL E. coli infection Current Visit: Yes Status: Acute Code(s): Z86.19 - PERSONAL HISTORY OF OTHER INFECTIOUS AND PARASITIC DISEASES SNOMED Code(s): 857485703 (2) Allergy to multiple antibiotics Current Visit: Yes Status: Acute Code(s): Z88.1 - ALLERGY STATUS TO OTHER ANTIBIOTIC AGENTS SNOMED Code(s): 083824123 (3) UTI (urinary tract infection) Current Visit: Yes Status: Acute Code(s): N39.0 - URINARY TRACT INFECTION, SITE NOT SPECIFIED SNOMED Code(s): 14774771 Plan: 1patient presented hospital with weakness lethargy with significant mental status changes patient did have a significantly positive UA with urine culture positive for ESBL E. coli did not respond to the Rocephin concerning for symptomatic UTI has no other obvious focus for her worsening mental status 2-patient urine culture has been updated with Enterococcus faecium vancomycin sensitive along with ESBL E. coli 3patient is currently being treated with vancomycin pharmacy to dose which can be done through the dialysis along with Invanz 500 mg daily total duration of biotic will be 10 days care has been discussed in detail with the FUNERAL ASSISTANT for admitting as well as the family the bedside Dictation was produced using [employer] dictation software. please excuse any grammatical, word or spelling errors.
--- NOTE | 2024-12-20 13:53 | P.DS ---
Providers Date of admission: 12/13/24 12:37 Expected date of discharge: 12/20/24 Attending physician: Roberth Colindres MD Consults: 12/13/24 15:50 Consult Physician Routine Consulting Provider: Abbey Wheeler Consult Reason/Comments: ESRD on hemodialysis Do you want consulting provider notified?: Yes 12/16/24 11:05 Consult Physician Routine Consulting Provider: Yudith Biswas Consult Reason/Comments: ESBL UTI Do you want consulting provider notified?: Yes Primary care physician: Bienvenido Hogue Hospital Course: Final diagnosis Altered mentation, multifactorial, metabolic encephalopathy likely secondary to end-stage renal disease with possible underlying dementia Urinary tract infection, poa with ESBL E.Coli End-stage renal disease on hemodialysis Monday/Monday/Monday Troponin leak likely from renal disease Transaminitis with cholecystectomy in the past Recent hospitalization for UTI treated with antibiotics although urine culture negative Oral thrush Diarrhea, negative C.Dif, likely secondary to antibiotic use Pulmonary fibrosis Lymphedema history Borderline hypotension History of polymyalgia rheumatica Generalized weakness with gait dysfunction Severe protein calorie malnutrition with a BMI of 21.9 GI prophylaxis DVT prophylaxis: Subcu heparin Full code Discharge disposition Patient is being discharged in a stable condition with guarded prognosis to [facility]. Patient will follow-up with Dr. Hogue in the outpatient setting upon discharge. Patient is to continue with hemodialysis as scheduled Monday/Monday/Monday and will receive vancomycin with dialysis with pharmacy to dose for 10 days. Patient will also continue with IV Invanz 500 mg daily for 10 days with a midline in place. Total time taken is greater than 35 minutes. Hospital course DayPatient is an 79 year old female with medical history of pulmonary fibrosis, lymphedema, polymyalgia rheumatica, ESRD hemodialysis. Patient was discharged from the hospital yesterday to [facility]. Patient was discharged on 3 days of oral ceftin to complete course of antibiotics for urinary tract infection. Patient had full neurological work up during that admission' including MRI, EEG which was negative for CVA. EEG was abnormal showing some delay and slowed activity although no epileptiform discharges noted. Patient was started on keppra twice daily. Patient also having waxing and waning of mentation and there was concern for UTI was started on IV cefriaxone and patient continued to have waxing and waning of mentation appears to be dementia clinically. Patient was recommended to follow along with neurology outpatient. Patient was discharged to [facility] for rehabilitation. Returned from the facility with concern for altered mentation and unresponsiveness. Patient has been following simple commands and responding to yes/no questions. feels she has UTI although is still completing course of antibiotics for UTI. Of note her urine culture from 12/05/24 was final and negative as well as blood culture final and negative. Urinalysis on admission shows turbid urine, 1+ ketones, large blood, large leukocyte esterase, 169 RBC, >182 WBC, many bacteria, many yeast. Patient had elevated troponin 0.055, AST 65, ALT 45, alk phos 180. Bun of 63, creatinine 3.80. Nephrology will be consulted for management of hemodialysis. 12/14/2024 Patient evaluated in follow up on the medical. More awake and alert and tolerating some oral intake. Family educated on the importance of keeping the head of bed up while patient is drinking/eating to avoid aspiration. Oral thrush noted on examination. Patient continues on IV ceftriaxone currently and awaiting repeat urine culture. Patient concerned with possible tick bite. Although unable to find the area on patients leg on assessment. 12/15/2024 Patient evaluated today in follow up. More awake and alert. Per at the bedside she has also been more talkative. Continues on IV ceftriaxone and pending urine culture. Patient had hemodialysis. Her electrolytes and renal function are improved. 12/16/2024 Patient is evaluated today in follow up. Resting comfortably. Undergoing hemodialysis. Remains sedated and not responding to yes/no questions. Urine culture comes back with E.Coli ESBL. ID was consulted and patient has been started on IV invanz. ID recommending to repeat the UA and culture and will need to await repeat urine culture before DC to rehab. 12/17/2024 Patient is evaluated today in follow up. Family at bedside. Patient remains alert x 1 and minimally responsive to verbal questions. Has been started on IV invanz for the E.Coli ESBL UTI. Repeat UA remains abnormal with large leukocyte esterase, >182 WBC with many bacteria many yeast. 12/18/2024 Patient evaluated today in follow up on the medical floor. Patient undergoing hemodialysis. Patient more awake alert and less lethargic. Still not wanting to eat. Continues on the IV invanz. 12/19/2024 Patient is eval today in follow-up in the medical floor. She is more awake alert and oriented she is able to talk in short sentences. She was started on dronabinol daily for appetite stimulant she did have a couple bites of breakfast which is more than she had been doing. She seems at lethargic later in the afternoon after being up walking with visitors. states that the most activity that she has had in the last couple days is only sitting up at the edge of the bed. He is hoping that she could get up into the chair at some point as she has been up ambulating prior to the last 2 hospital stays. Long-term goals would be for subacute rehabilitation as patient's functionality was quite good prior to this hospital stay. She continues on IV Invanz for the ESBL UTI with plans for 10 days of IV Invanz on discharge 12/20/2024 Patient is seen in follow-up today continues to be lethargic at times although arousable today. Per nursing staff patient did eat some of her breakfast and is currently receiving hemodialysis and is lethargic at this time. Blood pressures are stable and other vital signs within normal limits. Patient with infectious disease following has received a midline and will go on 10 days of Invanz at 500 mg daily as well as vancomycin with pharmacy to dose during dialysis for 10 days total. Patient does receive hemodialysis on Monday/Monday/Monday and will continue. Patient is to receive Invanz at least 6 hours before or 6 hours after on dialysis days per ID recommendations. Follow-up with basic labs and pharmacy with Vanco trough, CRP, sed rate, CMP, CBC. Attempted to discuss CODE STATUS and possible hospice as patient clinically continues to deteriorate and becoming more weak and is absolutely against hospice at this time. Patient and family to discuss CODE STATUS further with primary care provider in the outpatient setting. Patient will be going to [facility] today. High risk for readmissions given significant comorbidities. PHYSICAL EXAMINATION: GENERAL: The patient is alert and oriented x1, not in any acute distress. Well developed, well nourished. Elderly appearing, chronically ill-appearing, cachectic HEENT: Pupils are round and equally reacting to light. EOMI. No scleral icterus. No conjunctival pallor. Normocephalic, atraumatic. No pharyngeal erythema. No thyromegaly. CARDIOVASCULAR: S1 and S2 present. No murmurs, rubs, or gallops. PULMONARY: Chest is clear to auscultation, no wheezing or crackles. ABDOMEN: Soft, nontender, nondistended, normoactive bowel sounds. No palpable organomegaly. MUSCULOSKELETAL: No joint swelling or deformity. EXTREMITIES: No cyanosis, clubbing, or pedal edema. NEUROLOGICAL: Gross neurological examination did not reveal any focal deficits. Diffusely weak SKIN: No rashes. Please refer to medication reconciliation sheet for a list of medications. The impression and plan of care has been dictated by Catherine Rojas, Nurse Practitioner as directed. Dr. Favian MD I have performed a history and examination and MDM of this patient, discussed the same with the dictator, and agree with the dictator's assessment and plan as written ,documented as a scribe. Based on total visit time, I have performed more than 50% of the visit. Patient Condition at Discharge: Fair Plan - Discharge Summary Discharge Rx Participant: No New Discharge Prescriptions: New Nystatin 100,000 Unit/ml Susp [Mycostatin Oral Susp] 500,000 unit PO QID ml Ertapenem [INVanz] 0.5 gm IVPB Q24H #10 each droNABinol [Marinol] 2.5 mg PO 0700 #4 cap Calcium Carbonate [Tums] 1,000 mg PO QID PRN tab PRN Reason: Heartburn Continue Montelukast [Singulair] 10 mg PO HS Ergocalciferol [Vitamin D2 (1250 Mcg = 26641 Iu)] 1,250 mcg PO TUTHSA Bumetanide [BUMEX] 1 mg PO DAILY Sodium Bicarbonate Tab 1,300 mg PO BID@0800,1200 Levothyroxine Sodium [Synthroid] 150 mcg PO DAILY@0600 Baclofen 5 mg PO BID@0800,1700 Benzonatate [Tessalon Perles] 100 mg PO TID PRN PRN Reason: Cough Potassium Chloride ER [K-Dur 20] 20 meq PO DAILY Calcium Acetate [PhosLo] 2,001 mg PO TID-W/MEALS Aspirin 81 mg PO DAILY tab Heparin Sodium,Porcine (1 ml) [Heparin Sodium] 5,000 unit SQ Q12HR each levETIRAcetam [Keppra] 500 mg PO Q12HR #60 tab Caldesene Powder 1 applic TOPICAL Q12H Magnesium Hydroxide [Milk of Magnesia Concentrate] 7,200 mg PO DAILY PRN PRN Reason: Constipation bisacodyL [Dulcolax] 10 mg RECTAL DAILY PRN PRN Reason: Constipation Na Phos,M-B/Na Phos,Di-Ba [Fleet Adult] 133 ml RECTAL DAILY PRN PRN Reason: Constipation Magic Cup 1 dose PO BID@1200,1700 Calprotect Cream 1 applic TOPICAL Q12H Albuterol Inhaler [Ventolin Hfa Inhaler] 2 puff INHALATION RT-Q6H PRN PRN Reason: Shortness Of Breath Acetaminophen Tab [Tylenol] 650 mg PO Q6HR PRN tab PRN Reason: Mild Pain Or Fever > 100.5 Loratadine 10 mg PO DAILY PRN #0 PRN Reason: Allergy Symptoms FLUoxetine HCL [PROzac] 40 mg PO DAILY Midodrine [ProAmatine] 5 mg PO TID@0800,1200,1700 Magnesium Chloride - Calium 64-106mg 1 tab PO DAILY Discontinued Gabapentin [Neurontin] 100 mg PO BID@0800,1700 cefuroxime axetiL [Ceftin] 500 mg PO BID 3 Days #6 tab Discharge Medication List Montelukast [Singulair] 10 mg PO HS 08/23/18 [History] Albuterol Inhaler [Ventolin Hfa Inhaler] 2 puff INHALATION RT-Q6H PRN 02/07/23 [History] Bumetanide [BUMEX] 1 mg PO DAILY 10/17/23 [History] Ergocalciferol [Vitamin D2 (1250 Mcg = 54984 Iu)] 1,250 mcg PO TUTHSA 10/17/23 [History] Sodium Bicarbonate Tab 1,300 mg PO BID@0800,1200 04/15/24 [History] Levothyroxine Sodium [Synthroid] 150 mcg PO DAILY@0600 04/28/24 [History] Acetaminophen Tab [Tylenol] 650 mg PO Q6HR PRN tab 04/30/24 [Rx] Baclofen 5 mg PO BID@0800,1700 08/16/24 [History] Benzonatate [Tessalon Perles] 100 mg PO TID PRN 08/16/24 [History] Loratadine 10 mg PO DAILY PRN #0 08/26/24 [Rx] Calcium Acetate [PhosLo] 2,001 mg PO TID-W/MEALS 11/30/24 [History] FLUoxetine HCL [PROzac] 40 mg PO DAILY 11/30/24 [History] Potassium Chloride ER [K-Dur 20] 20 meq PO DAILY 11/30/24 [History] Aspirin 81 mg PO DAILY tab 12/11/24 [Rx] Heparin Sodium,Porcine (1 ml) [Heparin Sodium] 5,000 unit SQ Q12HR each 5 [Rx] levETIRAcetam [Keppra] 500 mg PO Q12HR #60 tab 12/11/24 [Rx] Caldesene Powder 1 applic TOPICAL Q12H 12/13/24 [History] Calprotect Cream 1 applic TOPICAL Q12H 12/13/24 [History] Magic Cup 1 dose PO BID@1200,1700 12/13/24 [History] Magnesium Chloride - Calium 64-106mg 1 tab PO DAILY 12/13/24 [History] Magnesium Hydroxide [Milk of Magnesia Concentrate] 7,200 mg PO DAILY PRN 12/13/24 [History] Midodrine [ProAmatine] 5 mg PO TID@0800,1200,1700 12/13/24 [History] Na Phos,M-B/Na Phos,Di-Ba [Fleet Adult] 133 ml RECTAL DAILY PRN 12/13/24 [History] bisacodyL [Dulcolax] 10 mg RECTAL DAILY PRN 12/13/24 [History] Ertapenem [INVanz] 0.5 gm IVPB Q24H #10 each 12/19/24 [Rx] Calcium Carbonate [Tums] 1,000 mg PO QID PRN tab 12/20/24 [Rx] Nystatin 100,000 Unit/ml Susp [Mycostatin Oral Susp] 500,000 unit PO QID ml 12/20/24 [Rx] droNABinol [Marinol] 2.5 mg PO 0700 #4 cap 12/20/24 [Rx] Follow up Appointment(s)/Referral(s): [facility] [NON-STAFF] - As Needed Bienvenido Hogue MD [Primary Care Provider] - 1-2 days Ambulatory/Diagnostic Orders: Complete Blood Count w/diff [LAB.AMB] Time Frame: 3 Days, Location: None Selected Activity/Diet/Wound Care/Special Instructions: Patient is going to [facility] as tolerated Continue on hemodialysis Monday/Monday/Monday Patient has a midline and will continue with Invanz 500 mg daily for 10 days. Patient is to receive this 6 hours before or 6 hours after on dialysis days Patient will continue on vancomycin with pharmacy to dose with dialysis for a total of 10 days Discharge Disposition: TRANSFER TO SNF/ECF
[2024-12-20 15:38] VITALS: BP 138/85
== END 2024-12-20 18:53 | DRG 871 ==
LOC: EC 09:16 → 6NMEDSUR 12:36 → OBSVTOIN 12:37 → 6NMEDSUR 14:37
PROVIDERS: ADMIT Internal Medicine; ATTEND Internal Medicine
PROC: 5A1D70Z Performance of Urinary Filtration, Intermittent, Less than 6 Hours Per Day (ICD-10-PCS; principal; 2024-12-13)
PROC: 05HB33Z Insertion of Infusion Device into Right Basilic Vein, Percutaneous Approach (ICD-10-PCS; 2024-12-19 09:00)
DX: A41.51 Sepsis due to Escherichia coli [E. coli] (principal); E43 Unspecified severe protein-calorie malnutrition; G93.41 Metabolic encephalopathy; N18.6 End stage renal disease; E87.22 Chronic metabolic acidosis; B37.0 Candidal stomatitis; J84.10 Pulmonary fibrosis, unspecified; Z99.2 Dependence on renal dialysis; F03.90 Unspecified dementia, unspecified severity, without behavioral disturbance, psychotic disturbance, mood disturbance, and anxiety; M35.3 Polymyalgia rheumatica; N39.0 Urinary tract infection, site not specified; N17.9 Acute kidney failure, unspecified; Z16.12 Extended spectrum beta lactamase (ESBL) resistance; A41.81 Sepsis due to Enterococcus; Z68.22 Body mass index [BMI] 22.0-22.9, adult; M81.0 Age-related osteoporosis without current pathological fracture; Z87.440 Personal history of urinary (tract) infections; I89.0 Lymphedema, not elsewhere classified; M19.90 Unspecified osteoarthritis, unspecified site; E55.9 Vitamin D deficiency, unspecified; Z79.82 Long term (current) use of aspirin; Z79.890 Hormone replacement therapy; Z79.899 Other long term (current) drug therapy; Z88.1 Allergy status to other antibiotic agents; Z88.2 Allergy status to sulfonamides; Z86.19 Personal history of other infectious and parasitic diseases; Z85.828 Personal history of other malignant neoplasm of skin; Z87.442 Personal history of urinary calculi; Z90.49 Acquired absence of other specified parts of digestive tract; Z88.5 Allergy status to narcotic agent
CPT/HCPCS: 36410; 36415; 71046; 76705; 76770; 76937; 80048; 80053; 80076; 81001; 83605; 83735; 84100; 84484; 85025; 85610; 85730; 87040; 87077; 87086; 87186; 87449; 90935; 93005; 94760; 96361; 96365; 96366; 96375; 99285

== ENCOUNTER 2024-12-26 18:56 | Emergency (ER) | payer MEDICARE ==
[2024-12-26 19:24] VITALS: TEMP 97.6
--- NOTE | 2024-12-26 19:24 | CT ---
EXAMINATION TYPE: CT brain cspine wo con DATE OF EXAM: 12/26/2024 7:16 PM COMPARISON: None. CLINICAL INDICATION: Female, 79 years old with history of Trauma; fall on thinners TECHNIQUE: Brain: Multiple axial CT images of the brain were obtained without IV contrast. Cspine: Axial CT images from the skull base to the inferior aspect of T2 we obtained without intraven ous contrast. Coronal and sagittal reformatted images were also reviewed. . CT DLP: 1162.4 mGycm, Automated exposure control for dose reduction was used. FINDINGS: Brain: Extra-axial spaces: No abnormal extra-axial fluid collections. Ventricular system: Dilatation in proportion to cerebral atrophy. Cerebral parenchyma: Cerebral atrophy. No acute intraparenchymal hemorrhage or mass effect. The cleveland -white junction is well differentiated. Scattered hypoattenuating areas are seen within the white mat ter. Cerebellum: Unremarkable. Mass effect: No evidence of midline shift. Intracranial vasculature: unremarkable Soft tissues: Normal. Calvarium/osseous structures: No depressed skull fracture. Paranasal sinuses and mastoid air cells: Clear. Visualized orbits: Orbital contents are intact. Cervical spine: Fracture: No acute fracture. Osseous structures: Multilevel degenerative disc disease changes with endplate spurring and disc oste ophyte complex's. Vertebral alignment: Grade 1 anterolisthesis of C4 on C5, not significantly changed from prior studie s. Likely chronic compression deformity of the C5 vertebral body superior endplate. Exaggerated lordo tic curvature of the cervical spine. Spinal canal/Neural Foramina: Multilevel facet arthropathy and uncovertebral hypertrophy and consulta tion with posterior disc osteophyte complexes cause varying degrees of multilevel neural foraminal na rrowing and spinal canal stenosis. Neck soft tissues: Prevertebral soft tissues are within normal limits. Other: Partially visualized lungs demonstrate nonspecific multifocal groundglass opacities. IMPRESSION: 1. No acute intracranial process. 2. No acute fracture or traumatic subluxation of the cervical spine. [facility], , 12/26/2024 7:22 PM
--- NOTE | 2024-12-26 19:51 | ED ---
General Adult HPI - General Chief complaint: Fall Stated complaint: Fall/COAGE Time Seen by Provider: 12/26/24 19:25 Source: patient, EMS, RN notes reviewed, old records reviewed Mode of arrival: EMS - History of Present Illness Initial comments: This is an 79-year-old female who presents to the emergency department because she fell at 4 AM. Patient states she tripped getting out of bed at 4 AM and hit her head but at the time it did not hurt and she had no loss of conscious not being dazed at all patient denies any neck pain patient has numbness weakness. Patient had no complaints for 12 hours and then she complained of some soreness in her chest with palpation and complained of a headache so they sent her to the emergency department because she is on subcu heparin. Patient denies any other complaints at this time. Patient is a dialysis patient states she was dialyzed yesterday. - Related Data Home Medications Medication Instructions Recorded Confirmed Montelukast [Singulair] 10 mg PO HS 08/23/18 12/13/24 Albuterol Inhaler [Ventolin Hfa 2 puff INHALATION RT-Q6H PRN 02/07/23 12/13/24 Inhaler] Bumetanide [BUMEX] 1 mg PO DAILY 10/17/23 12/13/24 Ergocalciferol [Vitamin D2 (1250 1,250 mcg PO TUTHSA 10/17/23 12/13/24 Mcg = 82519 Iu)] Sodium Bicarbonate Tab 1,300 mg PO BID@0800,1200 04/15/24 12/13/24 Levothyroxine Sodium [Synthroid] 150 mcg PO DAILY@0600 04/28/24 12/13/24 Baclofen 5 mg PO BID@0800,1700 08/16/24 12/13/24 Benzonatate [Tessalon Perles] 100 mg PO TID PRN 08/16/24 12/13/24 Calcium Acetate [PhosLo] 2,001 mg PO TID-W/MEALS 11/30/24 12/13/24 FLUoxetine HCL [PROzac] 40 mg PO DAILY 11/30/24 12/13/24 Potassium Chloride ER [K-Dur 20] 20 meq PO DAILY 11/30/24 12/13/24 Caldesene Powder 1 applic TOPICAL Q12H 12/13/24 12/13/24 Calprotect Cream 1 applic TOPICAL Q12H 12/13/24 12/13/24 Magic Cup 1 dose PO BID@1200,1700 12/13/24 12/13/24 Magnesium Chloride - Calium 1 tab PO DAILY 12/13/24 12/13/24 64-106mg Magnesium Hydroxide [Milk of 7,200 mg PO DAILY PRN 12/13/24 12/13/24 Magnesia Concentrate] Midodrine [ProAmatine] 5 mg PO TID@0800,1200,1700 12/13/24 12/13/24 Na Phos,M-B/Na Phos,Di-Ba [Fleet 133 ml RECTAL DAILY PRN 12/13/24 12/13/24 Adult] bisacodyL [Dulcolax] 10 mg RECTAL DAILY PRN 12/13/24 12/13/24 Previous Rx's Medication Instructions Recorded Acetaminophen Tab [Tylenol] 650 mg PO Q6HR PRN tab 04/30/24 Loratadine 10 mg PO DAILY PRN #0 08/26/24 Aspirin 81 mg PO DAILY tab 12/11/24 Heparin Sodium,Porcine (1 ml) 5,000 unit SQ Q12HR each 12/11/24 [Heparin Sodium] levETIRAcetam [Keppra] 500 mg PO Q12HR #60 tab 12/11/24 Ertapenem [INVanz] 0.5 gm IVPB Q24H #10 each 12/19/24 Calcium Carbonate [Tums] 1,000 mg PO QID PRN tab 12/20/24 Nystatin 100,000 Unit/ml Susp 500,000 unit PO QID ml 12/20/24 [Mycostatin Oral Susp] droNABinol [Marinol] 2.5 mg PO 0700 #4 cap 12/20/24 Allergies Allergy/AdvReac Type Severity Reaction Status Date / Time adhesive tape Allergy Rash/Hives Verified 12/26/24 19:24 Sulfa (Sulfonamide Allergy Itching Verified 12/26/24 19:24 Antibiotics) codeine AdvReac Nausea Verified 12/26/24 19:24 tetracycline AdvReac Nausea & Verified 12/26/24 19:24 Vomiting Review of Systems ROS Statement: Those systems with pertinent positive or pertinent negative responses have been documented in the HPI. ROS Other: All systems not noted in ROS Statement are negative. Past Medical History Past Medical History: Asthma, Cancer, COPD, Dialysis, Osteoarthritis (OA), Renal Disease, Thyroid Disorder Additional Past Medical History / Comment(s): ESRD- hemodialysis MOWEFR 3 1/2 hours, dialysis cath rt chest, kidney stones and UTI, hx lymphedema, hx pulmonary fibrosis, hx graves, hx rt foot torn ligaments, hx osteoporosis, hypotension; vitamin D deficiency, hypocalcemia, SKIN CANCER REMOVED FROM BRIDGE OF NOSE., PMR - polymyalgia rhematalia; currently bruised from neck to right breast, UTI History of Any Multi-Drug Resistant Organisms: CRE Date of last positivie culture/infection: 10/16/18 MDRO-CRE PER [facility] NOT [facility] MDRO Source:: Urine Past Surgical History: Bariatric Surgery, Orthopedic Surgery Additional Past Surgical History / Comment(s): hx bariatric surgery-[facility] [place] [facility],lung biopsy,radioactive iodine-tx thyroid,rectal and bladder suspensions,vaginal surgery as a child,partha carpel tunnel,rt knee meniscus repair,D&C x3, left arm fistula 02/08/19(not working), left broken wrist, broken right wrist Past Anesthesia/Blood Transfusion Reactions: Previous Problems w/ Anesthesia Additional Past Anesthesia/Blood Transfusion Reaction / Comment(s): decrease bp with anesthesia, no problems with prior blood transfusion Past Psychological History: No Psychological Hx Reported Smoking Status: Never smoker Past Alcohol Use History: None Reported Past Drug Use History: None Reported - Past Family History Father Family Medical History: Pulmonary Embolus Additional Family Medical History / Comment(s): . Mother Family Medical History: Cancer Additional Family Medical History / Comment(s): colon ca, bone ca Sister(s) Family Medical History: Cancer Additional Family Medical History / Comment(s): kidney ca Daughter(s) Additional Family Medical History / Comment(s): lymphedema in legs Brother(s) Family Medical History: Cancer Additional Family Medical History / Comment(s): skin cancer General Exam - General Exam Comments Initial Comments: GENERAL: Patient is well-developed and well-nourished. Patient is nontoxic and well- hydrated and is in mild distress. ENT: Neck is soft and supple. No significant lymphadenopathy is noted. Oropharynx is clear. Moist mucous membranes. Neck has full range of motion without eliciting any pain. EYES: The sclera were anicteric and conjunctiva were pink and moist. Extraocular movements were intact and pupils were equal round and reactive to light. Eyelids were unremarkable. PULMONARY: Unlabored respirations. Good breath sounds bilaterally. No audible rales rhonchi or wheezing was noted. CARDIOVASCULAR: There is a regular rate and rhythm without any murmurs gallops or rubs. Patient has reproducible anterior chest pain ABDOMEN: Soft and nontender with normal bowel sounds. SKIN: Skin is clear with no lesions or rashes and otherwise unremarkable. Patient has a contusion NEUROLOGIC: Patient is alert and oriented x3. Cranial nerves II through XII are grossly intact. Motor and sensory are also intact. Normal speech, volume and content. Symmetrical smile. MUSCULOSKELETAL: Normal extremities with adequate strength and full range of motion. LYMPHATICS: No significant lymphadenopathy is noted PSYCHIATRIC: Normal psychiatric evaluation. Course Vital Signs 12/26/24 12/26/24 19:22 19:28 Temperature 97.6 F Pulse Rate 60 61 Respiratory 17 18 Rate Blood Pressure 130/44 113/86 O2 Sat by Pulse 97 98 Oximetry Medical Decision Making - Medical Decision Making Was pt. sent in by a medical professional or institution (, PA, SHEET TAILER, urgent care, hospital, or fdc...) When possible be specific @ -No Did you speak to anyone other than the patient for history (EMS, parent, family, police, friend...)? What history was obtained from this source @ -No Did you review nursing and triage notes (agree or disagree)? Why? @ -I reviewed and agree with nursing and triage notes Were old charts reviewed (outside hosp., previous admission, EMS record, old EKG, old radiological studies, urgent care reports/EKG's, fdc records)? Report findings @ -No old charts were reviewed Differential Diagnosis? @ -Differential Musculoskeletal Muscular strain, contusion, ligament sprain, fracture, arthritis, septic arthritis, bursitis, cellulitis, muscle spasm, nerve compression, DVT, arterial occlusion, herpes zoster, electrolyte abnormality, tumor.... This is not meant to be in all inclusive list EKG interpreted by me (3pts min.). @ -As above X-rays interpreted by me (1pt min.). @ -Chest x-ray shows no acute abnormality CT interpreted by me (1pt min.). @ -CT of the brain shows no acute abnormality U/S interpreted by me (1pt. min.). @ -None done What testing was considered but not performed or refused? (CT, X-rays, U/S, labs)? Why? @ -None What meds were considered but not given or refused? Why? @ -None Did you discuss the management of the patient with other professionals (professionals i.e. DrAlice, PA, SHEET TAILER, lab, RT, psych nurse, social media executive, corporate development manager, teacher, payroll officer, returned case inspector)? Give summary @ -No Was smoking cessation discussed for >3mins.? @ -No Was critical care preformed (if so, how long)? @ -No Were there social determinants of health that impacted care today? How? (Homelessness, low income, unemployed, alcoholism, drug addiction, transportation, low edu. Level, literacy, decrease access to med. care, snf, rehab)? @ -No Was there de-escalation of care discussed even if they declined (Discuss DNR or withdrawal of care, Hospice)? DNR status @ -No What co-morbidities impacted this encounter? (DM, HTN, Smoking, COPD, CAD, Cancer, CVA, ARF, Chemo, Hep., AIDS, mental health diagnosis, sleep apnea, morbid obesity)? @ -None Was patient admitted / discharged? Hospital course, mention meds given and route, prescriptions, significant lab abnormalities, going to OR and other pertinent info. @ -Patient CT of the brain and C-spine were negative. Patient's chest x-ray showed no acute abnormality. Patient will be discharged back to facility. Undiagnosed new problem with uncertain prognosis? @ -No Drug Therapy requiring intensive monitoring for toxicity (Heparin, Nitro, Insulin, Cardizem)? @ -No Were any procedures done? @ -No Diagnosis/symptom? @ -Fall Acute, or Chronic, or Acute on Chronic? @ -Acute Uncomplicated (without systemic symptoms) or Complicated (systemic symptoms)? @ -Complicated Side effects of treatment? @ -No Exacerbation, Progression, or Severe Exacerbation? @ -No Poses a threat to life or bodily function? How? (Chest pain, [place], NM, pneumonia, PE, COPD, DKA, ARF, appy, cholecystitis, CVA, Diverticulitis, Homicidal, Suicidal, threat to staff... and all critical care pts) @ -No Diagnosis/symptom? @ -Head injury Acute, or Chronic, or Acute on Chronic? @ -Acute Uncomplicated (without systemic symptoms) or Complicated (systemic symptoms)? @ -Complicated Side effects of treatment? @ -None Exacerbation, Progression, or Severe Exacerbation] @ -No Poses a threat to life or bodily function? @ -No Diagnosis/symptom? @ -Chest contusion Acute, or Chronic, or Acute on Chronic? @ -Acute Uncomplicated (without systemic symptoms) or Complicated (systemic symptoms)? @ -Default Side effects of treatment? @ -None Exacerbation, Progression, or Severe Exacerbation] @ -No Poses a threat to life or bodily function? @ -No Disposition Clinical Impression: Fall, Head injury, Chest wall contusion Disposition: HOME SELF-CARE Condition: Good Instructions (If sedation given, give patient instructions): Fall Prevention for Older Adults (ED), Head Injury (ED) Is patient prescribed a controlled substance at d/c from ED?: No Referrals: Bienvenido Hogue MD [Primary Care Provider] - 1-2 days Time of Disposition: 20:46
--- NOTE | 2024-12-26 20:18 | XR ---
EXAMINATION TYPE: XR chest 2V DATE OF EXAM: 12/26/2024 8:03 PM COMPARISON: Prior chest radiographs, most recently dated 12/14/2024. CLINICAL INDICATION: Female, 79 years old with history of Difficulty breathing ; [facility] TECHNIQUE: XR chest 2V Frontal and lateral views of the chest. FINDINGS: Lungs/Pleura: There is no evidence of pleural effusion, focal consolidation, or pneumothorax. Lungs are clear bilaterally with coarsening of the interstitial markings suggesting COPD. Pulmonary vascularity: Unremarkable. Heart/mediastinum: Cardiomediastinal silhouette is unremarkable. Musculoskeletal: No acute osseous pathology. Other findings: None Lines/Tubes: Right chest wall dialysis catheter with distal catheter tip overlying the region of the right atrium. IMPRESSION: No acute cardiopulmonary disease/process. [facility], , 12/26/2024 8:16 PM
[2024-12-26 21:09] VITALS: BP 121/56; PULSE 68; RESP 19
== END 2024-12-26 22:11 | disposition home or self-care (01) ==
LOC: EC 18:56
DX: S09.90XA Unspecified injury of head, initial encounter (principal); S20.219A Contusion of unspecified front wall of thorax, initial encounter; N18.6 End stage renal disease; Z99.2 Dependence on renal dialysis; Z88.1 Allergy status to other antibiotic agents; Z88.2 Allergy status to sulfonamides; Z88.5 Allergy status to narcotic agent; Z91.09 Other allergy status, other than to drugs and biological substances; W19.XXXA Unspecified fall, initial encounter
CPT/HCPCS: 70450; 71046; 72125; 93005; 99284